=== PATIENT | female | born 1950 | race Caucasian/White ===

== ENCOUNTER 2021-10-02 13:23 | Outpatient (CLI) | payer MEDICARE, SELFPAY | END 2021-10-02 13:24 | disposition home or self-care (01) | PROVIDERS: Visit Provider Surgery | DX: L97.429 Non-pressure chronic ulcer of left heel and midfoot with unspecified severity (principal); M14.60 Charcot's joint, unspecified site; I73.9 Peripheral vascular disease, unspecified; G90.09 Other idiopathic peripheral autonomic neuropathy; Z86.19 Personal history of other infectious and parasitic diseases; Z86.14 Personal history of Methicillin resistant Staphylococcus aureus infection | CPT/HCPCS: 11042; 99204 ==

== ENCOUNTER 2021-10-10 14:17 | Outpatient (CLI) | payer MEDICARE, SELFPAY | END 2021-10-10 14:18 | disposition home or self-care (01) | LOC: WOUND 14:17 | PROVIDERS: Visit Provider Nurse Practitioner Family | DX: G90.09 Other idiopathic peripheral autonomic neuropathy (principal); L97.422 Non-pressure chronic ulcer of left heel and midfoot with fat layer exposed; M14.60 Charcot's joint, unspecified site | CPT/HCPCS: 11042 ==

== ENCOUNTER 2021-10-16 14:24 | Outpatient (CLI) | payer MEDICARE, SELFPAY | END 2021-10-16 14:25 | disposition home or self-care (01) | LOC: WOUND 14:24 | PROVIDERS: Visit Provider Surgery | DX: L97.422 Non-pressure chronic ulcer of left heel and midfoot with fat layer exposed (principal); G90.09 Other idiopathic peripheral autonomic neuropathy; M14.60 Charcot's joint, unspecified site; I73.9 Peripheral vascular disease, unspecified; S61.402A Unspecified open wound of left hand, initial encounter | CPT/HCPCS: 11042 ==

== ENCOUNTER 2021-10-17 15:17 | Outpatient (CLI) | payer MEDICARE, SELFPAY ==
--- NOTE | 2021-10-17 15:45 | CRLHL7_ITS ---
For Patients: As a result of the Century Cures Act, medical imaging exams and procedure reports are released immediately into your electronic medical record. You may view this report before your referring provider. If you have questions, please contact your health care provider. BILATERAL SCREENING MAMMOGRAM WITH COMPUTER-AIDED DETECTION TECHNIQUE: CC and MLO views were obtained. These mammographic images have been obtained using full-field digital technique. These mammographic images were interpreted with the benefit of computer-aided detection. COMPARISON FILM: 06/27/21, 12/23/18, 12/02/17. FINDINGS: The breasts are heterogeneously dense, which may obscure small masses IMPRESSION: There is no radiographic evidence for malignancy. ASSESSMENT: BI-RADS Category 2: Benign RECOMMENDATION: Routine screening mammogram in 1 year. A lay language report of this examination will be provided to the patient. Anirudh Robledo M.D. Diagnostic Radiologist [email or web address] DAVID/Dictated by: Anirudh Robledo MD @ 10/18/2021 8:14:00 AM (Electronically Signed)
== END 2021-10-17 15:18 | disposition home or self-care (01) ==
LOC: MAMMO 15:19
PROVIDERS: Visit Provider Family Medicine
DX: Z12.31 Encounter for screening mammogram for malignant neoplasm of breast (principal); R92.2 Inconclusive mammogram
CPT/HCPCS: 77063; 77067

== ENCOUNTER 2021-10-23 14:26 | Outpatient (CLI) | payer MEDICARE, SELFPAY | END 2021-10-23 14:27 | disposition home or self-care (01) | LOC: WOUND 14:26 | PROVIDERS: Visit Provider Surgery | DX: M14.60 Charcot's joint, unspecified site (principal); L97.422 Non-pressure chronic ulcer of left heel and midfoot with fat layer exposed; G90.09 Other idiopathic peripheral autonomic neuropathy; I73.9 Peripheral vascular disease, unspecified | CPT/HCPCS: 97597 ==

== ENCOUNTER 2021-10-29 14:23 | Outpatient (CLI) | payer MEDICARE, SELFPAY | END 2021-10-29 14:24 | disposition home or self-care (01) | LOC: WOUND 14:23 | PROVIDERS: Visit Provider Nurse Practitioner Family | DX: M14.60 Charcot's joint, unspecified site (principal); L97.422 Non-pressure chronic ulcer of left heel and midfoot with fat layer exposed; G90.09 Other idiopathic peripheral autonomic neuropathy; I73.9 Peripheral vascular disease, unspecified | CPT/HCPCS: 97597 ==

== ENCOUNTER 2021-11-06 10:30 | Outpatient (CLI) | payer MEDICARE, SELFPAY ==
--- OUTSIDE RECORDS SUMMARY | 2022-01-15 15:25 | XMS_ITS | Clinical Summary ---
:1950 Author Organization [facility] [place] [address] Care Team Providers Name Role Phone Idalmis [...] MEDICARE PART A - MEDICARE PART A [id number] 2008-Prese ATTN: CLAIMS HB USE ONLY HB ONLY nt [address] [place] [address] [facility] MR [id number] 2020-Presen [address] [address] [place] [address] Advance Directives Latest Code Status on File Code Status Date Activated Date Inactivated Comments Full Code 07/16/2012 5:52 PM 07/17/2012 6:32 PM Full Code 07/16/2012 10:11 AM 07/16/2012 5:52 PM Care Teams Paste Maker Relationship Specialty Start Date End Date Idalmis Sloan MD PCP - General Family Practice 07/15/12
--- OUTSIDE RECORDS SUMMARY | 2022-01-15 15:26 | XMS_ITS | Encounter Summary ---
:1950 Author Organization [facility] Address [address] [place] [address] Care Team Providers Name Role Phone Unavailable Primary Care Provider Unavailable Encounter Details Date Type Department Care Team Description 09/28/2012 Notes/Orders [facility] [address] Megan Son MD Rash and other Dermatology [address] nonspecific skin [address] eruption (Primary Dx) [place] [phone] Social History Tobacco Use Types Packs/Day Years Used Date Smoking Tobacco: Never Assessed Sex Assigned at Date Recorded Not on file documented as of this encounter Plan of Treatment Not on filedocumented as of this encounter Visit Diagnoses Diagnosis Rash and other nonspecific skin eruption - Primary documented in this encounter
--- OUTSIDE RECORDS SUMMARY | 2022-01-15 15:26 | XMS_ITS | Encounter Summary ---
:1950 [facility] Address [address] [place] [address] Care Team Providers Name Role Phone Unavailable Primary Care Provider Unavailable Reason for Visit Reason Comments Appt. Scheduled Encounter Details Date Type Department Care Team Description 12/14/2012 Telephone [facility] 3800 Megan Son MD Appt. Scheduled Dermatology [address] [place] [address] [place] [address] [phone] Social History Tobacco Use Types Packs/Day Years [...] her husbands schedule first. She will call [phone] to schedule this appt. Megan Son MD [...]
--- OUTSIDE RECORDS SUMMARY | 2022-01-15 15:26 | XMS_ITS | Encounter Summary ---
:1950 Author Organization [place] Address [address] [facility] [place] [address] Care Team Providers Name Role Phone LeviIdalmis stahl Ann Primary Care Provider Madhav Matute MD Unavailable Encounter Details Date Type Department Care Team Description 01/15/2021 Medical Correspondence [facility] Scan, PHYSICAL THERAPY Health Info Mgmt Non-Provider ORDER [facility] [address] [place] [address] Social History Tobacco Use Types Packs/Day Years Used Date Smoking Tobacco: Never Smokeless Tobacco: Never Sex Assigned at Date Recorded Not on file documented as of this encounter Plan of Treatment Not on filedocumented as of this encounter Visit Diagnoses Not on filedocumented in this encounter Care Teams Grease Cup Filler Relationship Specialty Start Date End Date Idalmis Sloan PCP - General Family Practice 11/04/13 Madhav Matute MD Assigned Neuroscience 12/02/20 [id number] MARYANA BEGUM Provider [address] [place] [id number] documented as of this encounter
--- OUTSIDE RECORDS SUMMARY | 2022-01-15 15:26 | XMS_ITS | Encounter Summary ---
:1950 Author [facility] Address [address] [place] [address] Care Team Providers Name Role Phone Unavailable Primary Care Provider Unavailable Reason for Visit Reason Comments Follow-up Encounter Details Date Type Department Care Team Description 10/25/2012 Office Visit [facility] 3800 Megan Son MD Unspecified pruritic Dermatology [address] disorder (Primary Dx) [address] [place] [id number] [phone] Social History Tobacco Use Types Packs/Day Years [...] Has had 2 biopsies ( one at [facility], one elsewhere) , both consistent with organizing [...] 7 days. Take 30 minutes before first [id number]. Avoid lying down for 30 minutes. ??? [...] lunch. -Discussed UVB therapy, available now in [facility] twice a week. Will start this. Warned [...] medical record. Entered on 10/25/2012t 11:42 AM. [place], Megan Son, attest that the above named [...]
--- OUTSIDE RECORDS SUMMARY | 2022-01-15 15:26 | XMS_ITS | Encounter Summary ---
:1950 Author Organization [facility] Address [address] [place] [address] Care Team Providers Name Role Phone Unavailable Primary Care Provider Unavailable Reason for Visit Reason Comments Ulcer, Foot 5th toes b/l ft sores x 1 we ek Encounter Details Date Type Department Care Team Description 12/22/2018 Initial Consult [facility] Jermain Stinson , Charcot's joint of right foot (Primary Dx); MedSurg DPM Blister of fifth toe of right foot, init ial encounter; [address] [place] [address] [place], [place] [phone] [address] Social History Tobacco Use Types Packs/Day Years [...] review indicates that she was admitted at [facility] on November 04, 2018 and discharged [...] List Diagnosis Date Noted ??? Subclinical hyperthyroidism ([facility]) 11/13/2017 ??? Elevated parathyroid hormone ([facility]) 11/13/2017 ??? Hypocalcemia 11/13/2017 No past surgical history on file. Remarkable for right foot reconstruction and graft Social History: Patient is retired [employer] in is here today with her OBJECTIVE: [...] in these are a custom orthotic from [employer] These are an accommodative insert. ASSESSMENT: ICD-10-CM [...] procedure. In review of the notes from [facility] it does indicate Charcot reconstruction so [...] voice recognition software and may contain some top distribution executive errors) documented in this encounter Nursing Notes [...]
--- OUTSIDE RECORDS SUMMARY | 2022-01-15 15:26 | XMS_ITS | Encounter Summary ---
:1950 Author Organization [place] Address [address] [facility] [place] [address] Care Team Providers Name Role Phone LeviIdalmis stahl Ann Primary Care Provider Madhav Matute MD Unavailable Encounter Details Date Type Department Care Team Description 05/14/2021 Medical Correspondence [facility] Scan, PHYSICAL THERAPY Health Info Mgmt Non-Provider ORDER [facility] [address] [place] [address] Social History Tobacco Use Types Packs/Day Years Used Date Smoking Tobacco: Never Smokeless Tobacco: Never Sex Assigned at Date Recorded Not on file documented as of this encounter Plan of Treatment Not on filedocumented as of this encounter Visit Diagnoses Not on filedocumented in this encounter Care Teams Scrap Iron Cutter Relationship Specialty Start Date End Date Idalmis Sloan PCP - General Family Practice 11/04/13 Madhav Matute MD Assigned Neuroscience 12/02/20 [address] MARYANA BEGUM Provider [address] [place] [address] [id number] documented as of this encounter
--- OUTSIDE RECORDS SUMMARY | 2022-01-15 15:26 | XMS_ITS | Encounter Summary ---
:1950 Author Organization [facility] Address [address] [place] [address] Care Team Providers Name Role Phone Unavailable Primary Care Provider Unavailable Reason for Visit Reason Comments Fax LAB RESULTS Encounter Details Date Type Department Care Team Description 12/02/[address] [facility] 3800 Dustin Cagle MD Fax; LAB RESULTS Endocrinology [address] [place] [address] [phone] (Wo rk) Social History Tobacco Use Types Packs/Day Years Used Date Smoking Tobacco: Former Cigarettes 1 Smokeless Tobacco: Never Alcohol Use Standard Drinks/Week Comments Yes 0 (1 standard drink = 0.6 oz pure alcoho l) ocaasionally Sex Assigned at Date Recorded Not on file documented as of this encounter Nursing Notes Sunny Lopez, RN - 12/04/2017 3:[address] [...] be faxed to Dr. Idalmis Sloan at [phone]. documented in this encounter Plan of Treatment Not on filedocumented as of this encounter Visit Diagnoses Not on filedocumented in this encounter
--- OUTSIDE RECORDS SUMMARY | 2022-01-15 15:26 | XMS_ITS | Encounter Summary ---
:1950 [facility] Address [address] [place] [address] Care Team Providers Name Role Phone Unavailable Primary Care Provider Unavailable Reason for Visit Reason Comments Lab Questions Encounter Details Date Type Department Care Team Description 09/24/2012 Telephone [facility] 3800 Megan Son MD Lab Questions Dermatology [address] [facility] [place] [address] [place], [place] [address] [phone] Social History Tobacco Use Types Packs/Day Years [...]
--- OUTSIDE RECORDS SUMMARY | 2022-01-15 15:26 | XMS_ITS | Encounter Summary ---
:1950 Author Organization [place] Address [facility] [place] [address] Care Team Providers Name Role Phone Idalmis Sloan Primary Care Provider Madhav Matute MD Unavailable Encounter Details Date Type Department Care Team Description 01/10/2021 Orders Only [facility] Neurosurgery Reported, Patient Clinic [address] [place] [address] Social History Tobacco Use Types [...] on filedocumented in this encounter Care Teams Orthopedic Physician Assistant Relationship Specialty Start Date End Date Idalmis Sloan PCP - General Family Practice 11/04/13 Madhav Matute MD Assigned Neuroscience 12/02/20 [address] [facility] Provider [address] [place] [address] documented as of this encounter
--- OUTSIDE RECORDS SUMMARY | 2022-01-15 15:26 | XMS_ITS | Encounter Summary ---
:1950 Author Organization [facility] Address [address] [address] Care Team Providers Name Role Phone Unavailable Primary Care Provider Unavailable Encounter Details Date Type Department Care Team Description 11/16/2017 Lab Visit [facility] Elevated parathyroid hormone ; [address] Subclinical hyperthyroidism; [place] [address] Hypocalcemia [phone] Social History Tobacco Use Types Packs/Day Years [...] Transglutaminase Ab IgA (11/16/2017 3:17 PM CDT) [facility] gist Method Time Signature TISSUE 0.4 0.0 - 6.9 PN SOFT TRANSGLUTAMINASE AB IU/L IGA Comment: Reference Range: <7 Negative, 7 - 10 Equivocal, >10 Posit sung Specimen Anatomical Collection Method Collection Time Receive d Time (Source) Location / / Volume Laterality 11/16/2017 3:17 PM 8 8:53 CDT PM CDT Narrative PN SOFT - 11/18/2017 12:30 PM CDT [place] [address] CLIA number [id number] Anirudh Cagle MD LAB_1 Performing Organization Address [facility] Phon e Number PN SOFT [address] [place] [address] Celiac Disease Reflex Panel IgA (11/16/2017 3:17 PM CDT) athologist Signature IGA 198 69 - 517 PN SOFT mg/dL Specimen Anatomical Collection Method Collection Time Receive d Time (Source) Location / / Volume Laterality 11/16/2017 3:17 PM 8 8:54 CDT PM CDT Narrative PN SOFT - 11/16/2017 9:14 PM CDT Performed at [address] [address] CLIA number [id number] Anirudh Cagle MD LAB_1 Performing Organization Address [facility] Phon e Number PN SOFT [address] [place] [address] [phone] Tsh Receptor Antibody (11/16/2017 3:17 PM CDT) athologist Signature TSH Receptor <0.90 <=1.75 IU/L PN SOFT Antibody Comment: Performed by [facility], [address] [place] [address] [email or web address], Papito Palomares MD - Lab . Director Specimen Anatomical Collection Method Collection Time Receive d Time (Source) Location / / Volume Laterality 11/16/2017 3:17 PM 8 8:43 CDT PM CDT Narrative PN SOFT - 11/18/2017 8:02 PM CDT Performed at [facility] [address] [place] [address] CLIA number [id number] Anirudh Cagle MD LAB_1 Performing Organization Address City/[facility] Code Phon e Number PN SOFT [address] [place] [address] T3 - Triiodothyronine, Free (FRT3) (11/16/2017 3:17 PM CDT) athologist Signature Triiodothyronin 3.2 1.7 - 3.7 PN SOFT e, Free pg/mL Specimen Anatomical Collection Method Collection Time Receive d Time (Source) Location / / Volume Laterality 11/16/2017 3:17 PM 8 6:30 CDT PM CDT Narrative PN SOFT - 11/16/2017 7:10 PM CDT Performed at [address] [address] CLIA number [id number] Anirudh Cagle MD LAB_1 Performing Organization Address City/[facility] Phon e Number PN SOFT [address] [place] [address] Free T4 (11/16/2017 3:17 PM CDT) athologist Signature Thyroxine, Free 1.1 0.7 - 1.5 PN SOFT ng/dL Specimen Anatomical Collection Method Collection Time Receive d Time (Source) Location / / Volume Laterality 11/16/2017 3:17 PM 8 6:30 CDT PM CDT Narrative PN SOFT - 11/16/2017 7:10 PM CDT Performed at [address] [address] CLIA number [id number] Anirudh Cagle MD LAB_1 Performing Organization Address [facility] Phon e Number PN SOFT [address] [place] [address] TSH (11/16/2017 3:17 PM CDT) athologist Signature Thyroid 0.38 0.30 - PN SOFT Stimulating 4.50 Hormone uIU/mL Specimen Anatomical Collection Method Collection Time Receive d Time (Source) Location / / Volume Laterality 11/16/2017 3:17 PM 8 6:30 CDT PM CDT Narrative PN SOFT - 11/16/2017 7:10 PM CDT Performed at [address] [address] CLIA number [id number] Anirudh Cagle MD LAB_1 Performing Organization Address [facility] Phon e Number PN SOFT [address] [place] [address] Vitamin D (In house) (11/16/2017 3:17 PM [...] - 11/16/2017 9:29 PM CDT Performed at [address] [address] CLIA number [id number] Anirudh Cagle MD LAB_1 Performing Organization Address [facility] Phon e Number PN SOFT [address] [place] [address] [phone] (ABNORMAL) PTH - Parathyroid Hormone Intact (11/16/2017 3:17 PM CDT) P athologist Signature PTH 159 (H) 10 - 100 PN SOFT pg/mL Specimen Anatomical Collection Method Collection Time Receive d Time (Source) Location / / Volume Laterality 11/16/2017 3:17 PM 8 8:43 CDT PM CDT Narrative PN SOFT - 11/16/2017 9:51 PM CDT Performed at [address] [address] CLIA number [id number] Anirudh Cagle MD LAB_1 Performing Organization Address City/[facility] Phon e Number PN SOFT [address] [place] [address] Phosphorus (11/16/2017 3:17 PM CDT) athologist Signature Phosphorus Serum 3.2 2.3 - 4.7 PN SOFT mg/dL Specimen Anatomical Collection Method Collection Time Receive d Time (Source) Location / / Volume Laterality 11/16/2017 3:17 PM 8 3:16 CDT PM CDT Narrative PN SOFT - 11/16/2017 4:36 PM CDT Performed at [facility], [facility] [address] [place] [address] CLIA number [id number] Anirudh Cagle MD LAB_1 Performing Organization Address City/[facility] Phon e Number PN SOFT [address] [place] [address] (ABNORMAL) CMP - Comprehensive Metabolic Panel (11/16/2017 [...] - 11/16/2017 4:36 PM CDT Performed at [facility], [address] [place] [address] CLIA number [id number] Anirudh Cagle MD LAB_1 Performing Organization Address City/State/ZIP Code Phon e Number PN SOFT [address] [place] [address] documented in this encounter Visit Diagnoses Diagnosis Elevated parathyroid hormone ([facility]) Unspecified endocrine disorder Subclinical hyperthyroidism ([facility]) Thyrotoxicosis without mention of goiter or other cause, without mention of thyrotoxic crisis or storm Hypocalcemia documented in this encounter
--- OUTSIDE RECORDS SUMMARY | 2022-01-15 15:26 | XMS_ITS | Encounter Summary ---
:1950 Author [facility] Address [address] [place] [address] Care Team Providers Name Role Phone Unavailable Primary Care Provider Unavailable Reason for Visit Reason Comments Other Encounter Details Date Type Department Care Team Description 11/20/2017 Telephone [facility] 3800 Dustin Cagle MD Other Endocrinology [address] [place] [address] (Wo rk) Social History Tobacco Use Types [...]
--- OUTSIDE RECORDS SUMMARY | 2022-01-15 15:26 | XMS_ITS | Clinical Summary ---
:1950 Author Organization [place] Address [facility] [place] [address] Care Team Providers Name Role Phone Idalmis [...] be differe nt from the original. 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
--- OUTSIDE RECORDS SUMMARY | 2022-01-15 15:26 | XMS_ITS | Encounter Summary ---
:1950 Author Organization [facility] Address [address] [place] [address] Care Team Providers Name Role Phone Unavailable Primary Care Provider Unavailable Encounter Details Date Type Department Care Team Description 10/12/2012 Notes/Orders [facility] 3800 Megan Son MD Dermatology [address] [place] [address] [place], [place] 4[address] [phone] Social History Tobacco Use Types Packs/Day Years Used Date Smoking Tobacco: Never Assessed Sex Assigned at Date Recorded Not on file documented as of this encounter Plan of Treatment Not on filedocumented as of this encounter Visit Diagnoses Not on filedocumented in this encounter
--- OUTSIDE RECORDS SUMMARY | 2022-01-15 15:26 | XMS_ITS | Encounter Summary ---
:[address] [facility] Address [address] [place] [address] Care Team Providers Name Role Phone Unavailable Primary Care Provider Unavailable Reason for Visit Reason Comments CONSULT Thyroid Encounter Details Date Type Department Care Team Description 11/13/2017 Initial Consult [facility] 3800 Anirudh Cagle clinical hyperthyroidism (Primary Dx); Endocrinology MD Jose Elevated parathyroid hormone; [address] [facility] [address] [place] [address] [phone] Social History Tobacco Use Types Packs/Day Years [...] 12:00 PM CDT NAME: KRYS MOSHER MR#: [id number] CSN: [id number] AUTHENTICATING CLINICIAN: Anirudh Cagle MD CONFIRM #: [id number] LOC: 432 CLINIC CONSULTATION DATE OF CONSULTATION: [...] you for this consultation. CC: DR. ISRAEL SLAON [facility] [address] [place], [place] [address] DMT:JARRETT C: CONFIRM #: [id number] documented in this encounter Plan of Treatment [...] - 11/16/2017 9:14 PM CDT Performed at [address] [address] CLIA number [id number] Anirudh Cagle MD LAB_1 Performing Organization Address [facility] Code Phon e Number PN SOFT [address] [place] [address] [phone] Tsh Receptor Antibody (11/16/2017 3:17 PM CDT) athologist [facility] TSH Receptor <0.90 <=1.75 IU/L PN SOFT Antibody Comment: Performed by [facility], [address] [place] [address] www.[email or web address], Papito Palomares MD - Lab . Director Specimen Anatomical Collection Method Collection Time Receive d Time (Source) Location / / Volume Laterality 11/16/2017 3:17 PM 8 8:43 CDT PM CDT Narrative PN SOFT - 11/18/2017 8:02 PM CDT Performed at [facility] [address] [place] [address] CLIA number [id number] Anirudh Cagle MD LAB_1 Performing Organization Address [facility] Phon e Number PN SOFT [address] [place] [address] T3 - Triiodothyronine, Free (FRT3) (11/16/2017 3:17 PM CDT) athologist Signature Triiodothyronin 3.2 1.7 - 3.7 PN SOFT e, Free pg/mL Specimen Anatomical Collection Method Collection Time Receive d Time (Source) Location / / Volume Laterality 11/16/2017 3:17 PM 8 6:30 CDT PM CDT Narrative PN SOFT - 11/16/2017 7:10 PM CDT Performed at [place] [address] [place] [address] CLIA number [id number] Anirudh Cagle MD LAB_1 Performing Organization Address [facility] Phon e Number PN SOFT [address] [place] [address] Free T4 (11/16/2017 3:17 PM CDT) athologist Signature Thyroxine, Free 1.1 0.7 - 1.5 PN SOFT ng/dL Specimen Anatomical Collection Method Collection Time Receive d Time (Source) Location / / Volume Laterality 11/16/2017 3:17 PM 8 6:30 CDT PM CDT Narrative PN SOFT - 11/16/2017 7:10 PM CDT Performed at [place] [address] [place] [address] CLIA number [id number] Anirudh Cagle MD LAB_1 Performing Organization Address [facility] Phon e Number PN SOFT [address] [place] [address] TSH (11/16/2017 3:17 PM CDT) athologist Signature Thyroid 0.38 0.30 - PN SOFT Stimulating 4.50 Hormone uIU/mL Specimen Anatomical Collection Method Collection Time Receive d Time (Source) Location / / Volume Laterality 11/16/2017 3:17 PM 8 6:30 CDT PM CDT Narrative PN SOFT - 11/16/2017 7:10 PM CDT Performed at [place] [address] [place] [address] CLIA number [id number] Anirudh Cagle MD LAB_1 Performing Organization Address City/[facility] Phon e Number PN SOFT [address] [place] [address] Vitamin D (In house) (11/16/2017 3:17 PM [...] - 11/16/2017 9:29 PM CDT Performed at [address] [address] CLIA number [id number] Anirudh Cagle MD LAB_1 Performing Organization Address [facility] Phon e Number PN SOFT [address] [place] [address] (ABNORMAL) PTH - Parathyroid Hormone Intact (11/16/2017 3:17 PM CDT) athologist Signature PTH 159 (H) 10 - 100 PN SOFT pg/mL Specimen Anatomical Collection Method Collection Time Receive d Time (Source) Location / / Volume Laterality 11/16/2017 3:17 PM 8 8:43 CDT PM CDT Narrative PN SOFT - 11/16/2017 9:51 PM CDT Performed at [address] [address] CLIA number [id number] Anirudh Cagle MD LAB_1 Performing Organization Address City/[facility] Phon e Number PN SOFT [address] [place] [address] Phosphorus (11/16/2017 3:17 PM CDT) athologist Signature Phosphorus Serum 3.2 2.3 - 4.7 PN SOFT mg/dL Specimen Anatomical Collection Method Collection Time Receive d Time (Source) Location / / Volume Laterality 11/16/2017 3:17 PM 8 3:16 CDT PM CDT Narrative PN SOFT - 11/16/2017 4:36 PM CDT Performed at [facility], [address] [facility], [place] [address] CLIA number [id number] Anirudh Cagle MD LAB_1 Performing Organization Address City/State/ZIP Code Phon e Number PN SOFT [address] [place] [address] [phone] (ABNORMAL) CMP - Comprehensive Metabolic Panel (11/16/2017 3:17 PM CDT) [facility] Method Time Signature Aspartate 48 (H) 10 [...] 11/16/2017 4:36 PM CDT Performed at [facility], [address] [facility], [place] [address] CLIA number [id number] Anirudh Cagle MD LAB_1 Performing Organization Address City/State/ZIP Code Phon e Number [facility] [address] [place] [address] [phone] documented in this encounter Visit Diagnoses Diagnosis [...]
--- OUTSIDE RECORDS SUMMARY | 2022-01-15 15:26 | XMS_ITS | Encounter Summary ---
:1950 Author Organization [facility] Address [address] [place] [address] Care Team Providers Name Role Phone Unavailable Primary Care Provider Unavailable Reason for Visit Reason Comments Appt. Needed Referral rec via fax for Hyp erthyroidism from Dr. Idalmis Sloan at [facility] Emergency Department Encounter Details Date Type Department Care Team Description 2017 Notes/Orders [facility] 3800 Nurse, P3800 End Endocrinology [address] [place] [address] [phone] Social History Tobacco Use Types Packs/Day Years [...]
--- OUTSIDE RECORDS SUMMARY | 2022-01-15 15:26 | XMS_ITS | Encounter Summary ---
:1950 Author Organization [facility] Address [address] [place] [address] Care Team Providers Name Role Phone Unavailable Primary Care Provider Unavailable Encounter Details Date Type Department Care Team Description 10/25/2012 Lab Visit [facility] 3850 Rash and other nonspecific skin eruption; Laboratory Unspecified pruritic disorde r [address] [place], [place] [address] Social History Tobacco Use Types Packs/Day Years [...] and let her know lymphocytes are ok CASTER Miscellaneous - 04/11/2016 4:09 AM CSTNotes Recorded by Hira Link RN on 10/25/2012 at 5:13 PMPt notified.------Notes Recorded by Megan Son MD on 10/25/2012 at 3:42 PMPlease call and let her know lymphocytes are ok CASTER documented in this encounter Plan of Treatment [...] - 10/25/2012 12:26 PM CDT Performed at [facility], [address] [place] [address] Transcriptions 04/11/2016 4:09 AM CSTNotes Recorded by [...] - 10/25/2012 12:26 PM CDT Performed at [facility] [place] [address] Transcriptions 04/11/2016 4:09 AM CSTNotes Recorded by [...]
--- OUTSIDE RECORDS SUMMARY | 2022-01-15 15:26 | XMS_ITS | Encounter Summary ---
:[address] [facility] [facility] Address [address] [place] [address] Care Team Providers Name Role Phone Unavailable Primary Care Provider Unavailable Reason for Visit Reason Comments Cough Encounter Details Date Type Department Care Team Description 03/03/2013 [facility] Tammie Mohan, Acute bronchitis Medicine DAYTIME CAREGIVER, DWARF TREE GROWER (Primary Dx) [address] [place] [address] [place], [place] [phone] [address] Social History Tobacco Use Types Packs/Day Years Used Date Smoking Tobacco: Never Assessed Sex Assigned at Date Recorded Not on file documented as of this encounter Last Filed Vital Signs Vital Sign Reading Time Taken Comments Blood Pressure 124/68 03/03/2013 10:55 AM WOUND CARE CENTER CONSULTANT Pulse 84 03/03/2013 10:55 AM WOUND CARE CENTER CONSULTANT Temperature 36.5 ??C (97.7 ??F) 03/03/2013 10:55 AM WOUND CARE CENTER CONSULTANT Respiratory Rate - - Oxygen Saturation - - Inhaled Oxygen Concentration - - Weight - - Height - - Body Mass Index - - documented in this encounter Patient Instructions Patient InstructionsMoTammie cullen - 03/03/2013 11:13 AM CST Delsym for cough Mucinex D for sinus congestion. Ask the Pharmacist for this D CARE CENTER CONSULTANT documented in this encounter Progress Notes Tammie [...] 7 days. Take 30 minutes before first [id number]. Avoid lying down for 30 minutes. ??? [...] discharged ambulatory and in stable condition. *SH~DNS~SOAP1 D CARE CENTER CONSULTANT documented in this encounter Plan of Treatment Not on filedocumented as of this encounter Visit Diagnoses Diagnosis Acute bronchitis - Primary documented in this encounter
--- OUTSIDE RECORDS SUMMARY | 2022-01-15 15:26 | XMS_ITS | Encounter Summary ---
:1950 Author Organization [facility] Address [address] [place] [address] Care Team Providers Name Role Phone Unavailable Primary Care Provider Unavailable Encounter Details Date Type Department Care Team Description 09/22/2012 Lab Visit [facility] [address] aboratory Rash/skin eruption [address] [place], [place] [id number] Social History Tobacco Use Types Packs/Day Years [...] am out of the office next week. EL LUBE TECH Miscellaneous - 04/11/2016 5:07 AM CSTNotes Recorded [...] am out of the office next week. EL [facility]BE TECH [facility] - 04/11/2016 5:07 AM CSTNotes Recorded by [...] am out of the office next week. EL LUBE TECH Miscellaneous - 04/11/2016 5:07 AM CSTNotes Recorded [...] am out of the office next week. EL LUBE TECH M[facility]ellcarol - 04/11/2016 5:07 AM CSTNotes Recorded [...] am out of the office next week. EL LUBE TECH Miscellaneous - 04/11/2016 5:07 AM CSTNotes Recorded [...] am out of the office next week. EL LUBE TECH Miscellaneous - 04/11/2016 5:07 AM CSTNotes Recorded [...] am out of the office next week. EL LUBE TECH documented in this encounter Plan of Treatment [...] Results (ABNORMAL) Differential (09/22/2012 10:50 AM CDT) [facility] Method Time Signature Absolute 3.6 [...] - 09/22/2012 11:00 AM CDT Performed at [facility], [address] [place] [address] Transcriptions 04/11/2016 5:07 AM CSTNotes Recorded by [...] Megan Mcqueen MD LAB_1 Performing Organization Address City/[facility] Phon e Number HP CONVERSION TSH AND [...] Megan Mcqueen MD LAB_1 Performing Organization Address City/[facility] Phon e Number HP CONVERSION C-Reactive Protein [...] Megan Mcqueen MD LAB_1 Performing Organization Address City/[facility] Code Phon e Number HP CONVERSION LENA [...] Megan Mcqueen MD LAB_1 Performing Organization Address City/[facility] Phon e Number HP CONVERSION Creatinine / [...] - 09/22/2012 11:23 AM CDT Performed at [facility], [address] [place] [address] Transcriptions 04/11/2016 5:07 AM CSTNotes Recorded by [...] Panel(Hepatic Function Panel) (09/22/2012 10:50 AM CDT) [facility] Method Time Signature Alk Phos 94 [...] - 09/22/2012 11:23 AM CDT Performed at [facility], [facility] [place] [address] Transcriptions 04/11/2016 5:07 AM CSTNotes Recorded by [...] - 09/22/2012 11:00 AM CDT Performed at [facility], [address] [place] [address] Transcriptions 04/11/2016 5:07 AM CSTNotes Recorded by [...]
--- OUTSIDE RECORDS SUMMARY | 2022-01-15 15:26 | XMS_ITS | Encounter Summary ---
:1950 Author Organization [facility] Address [address], [place] [address] Care Team Providers Name Role Phone Unavailable Primary Care Provider Unavailable Reason for Visit Reason Comments Rash Encounter Details Date Type Department Care Team Description 09/14/2012 Office Visit [facility] Alok Wright/[place] in [facility] Medicine Cheri Qureshi (Primary Dx) [address] [place] [address] [place], [place] [phone] (Wo rk) Social History Tobacco Use Types [...] times recently including a visit to the technical buyer and was given topical steroid creams without [...] 7 days. Take 30 minutes before first merq-imqpt-sffhlfqset. Avoid lying down for 30 minutes. ??? [...]
--- OUTSIDE RECORDS SUMMARY | 2022-01-15 15:26 | XMS_ITS | Encounter Summary ---
:1950 Author Organization [facility] Address [address] [place] [address] Care Team Providers Name Role Phone Unavailable Primary Care Provider Unavailable Reason for Visit Reason Comments DERMATITIS Encounter Details Date Type Department Care Team Description 12/02/2012 Procedure Visit [facility] Nurse, Bravo Chao DERMATITIS [address] [place] [address] Social History Tobacco Use Types [...]
--- OUTSIDE RECORDS SUMMARY | 2022-01-15 15:26 | XMS_ITS | Clinical Summary ---
:1950 Author Organization [facility] Address [address] [place] [address] Care Team Providers Name Role Phone Unavailable [...] for each transition of care or referral. [facility] Allergies Active Allergy Reactions Severity Noted Date [...] daily at tabletIndications: bedtime. alternate between Indications: 12-1 tab daily alternate between 03/03-1 tab daily ALBUterol sulfate HFA Inhale 2 [...] 36.5 ??C (97.7 ??F) 03/03/2013 10:[address] JUDGE Respiratory Rate - - Oxygen Saturation - [...] Phone Address Typ e / Group Dates [facility] MEDICARE [id number] 2018-Pre [phone] [address] Medicare ADVANTAGE sent [phone] [place] [address]
--- OUTSIDE RECORDS SUMMARY | 2022-01-15 15:26 | XMS_ITS | Encounter Summary ---
:1950 Author Organization [facility] Address [address] [place] [address] Care Team Providers Name Role Phone Unavailable Primary Care Provider Unavailable Reason for Visit Reason Comments ECZEMA Encounter Details Date Type Department Care Team Description 11/04/2012 Procedure Visit [facility] Nurse, Bravo Chao ECZEMA [address] [place] [address] Social History Tobacco Use Types [...]
--- OUTSIDE RECORDS SUMMARY | 2022-01-15 15:26 | XMS_ITS | Encounter Summary ---
:1950 Author Organization [facility] Address [address] [place] [address] Care Team Providers Name Role Phone Unavailable Primary Care Provider Unavailable Reason for Visit Reason Comments ECZEMA Encounter Details Date Type Department Care Team Description 11/30/2012 Procedure Visit [place] [facility] Nurse, Bravo Chao ECZEMA [address] [place] [address] Social History Tobacco Use Types [...]
--- OUTSIDE RECORDS SUMMARY | 2022-01-15 15:26 | XMS_ITS | Encounter Summary ---
:1950 Author Organization [facility] Address [address] [place] [address] Care Team Providers Name Role Phone Unavailable Primary Care Provider Unavailable Reason for Referral Specialty Diagnoses / Procedures Referred By Contact Refer red To Contact Masood Wright, [facility] [address] [place] [address] Referral ID Status Reason Start Date Expiration Date Visits Requ ested Visits Authorized Reason for Visit Reason Comments Rash Encounter Details Date Type Department Care Team Description 09/22/2012 Initial Consult [facility] 3800 Megan Son MD Rash/skin eruption (Primary Dx); Dermatology [address] Rash and other nonspecific s kin eruption [address] [place] [id number] Social History Tobacco Use Types Packs/Day Years [...] whole body going on for4-5 weeks. [facility]en [facility] twice for this condition. Red bumps with itching. Tried Bactroban cream, OTCallergy medication, hydrocortisone, hydroxizine. The Bactroban seemed to help little but rash continues to spread. Was in patient hospital for back surgery and rash has been present since and does not believe she has had any new medications prior to the rash. Had biopsy at [facility] which she thought the results [...] 7 days. Take 30 minutes before first vucj-azsbd-vsvadkmlcs. Avoid lying down for 30 minutes. ??? [...] drawnalso discussed getting labs and slides from [facility] vs doing another biopsy today. Patientelected to have biopsy done today. release of information sent to [facility] today. After disc ussion, a punch biopsy [...] as recommended. Kelly Ashby RN at 09/29/12 1604 Status: Signed Calling for biopsy results---please advise in 's absence (rc 8-5) She may be reached @[phone]. Thank you. N RESOURCES SUPERVISOR documented in this encounter Plan of [...] Component Value Ref Test Analysis Performed At [facility] gist Range Method Time Signature Path: ? FINAL DERMATOPATHOLOGY REPO RT HP CONVERSION Pathology #: [id number] ? Date Obtained: 09/22/2012 ?Date Received: 09/22/2012 [...] AMCalled, left message.------ Notes Recorded by Cherelle Post, RN on 10/04/2012 at 5:00 PMreturning your call at 4:42 pm today------Notes Recorded by Cherelle Post, RN on 10/04/2012 at 2:28 PMpatient lm [...] absence (rc 8-5) She may be reached @[phone]. Thank you. Megan Son MD LAB_1 Performing Organization Address City/State/ZIP Code Phon e Number HP CONVERSION documented in this encounter Visit Diagnoses Diagnosis Rash/skin eruption - Primary Rash and other nonspecific skin eruption Rash and other nonspecific skin eruption documented in this encounter
--- OUTSIDE RECORDS SUMMARY | 2022-01-15 15:26 | XMS_ITS | Encounter Summary ---
:1950 Author Organization [facility] Address [address], [place] [address] Care Team Providers Name Role Phone Unavailable Primary Care Provider Unavailable Reason for Visit Reason Comments Rash Encounter Details Date Type Department Care Team Description 09/20/2012 Telephone [place] [facility] Titus Whitten Rash [address] [facility] [place], [place] [address] [address] [place] [address] [phone] [place], [place] [address] (Wo rk) Social History Tobacco Use Types Packs/Day Years Used Date Smoking Tobacco: Never Assessed Sex Assigned at Date Recorded Not on file documented as of this encounter Nursing Notes Denise Mon - 09/21/2012 9:20 AM CDT LM to call [phone] to schedule an appointment. Denise Mon 9:18 [...]
--- OUTSIDE RECORDS SUMMARY | 2022-01-15 15:26 | XMS_ITS | Encounter Summary ---
:1950 [facility] Address [address] [place] [address] Care Team Providers Name Role Phone Unavailable Primary Care Provider Unavailable Reason for Visit Reason Comments RESULTS, TEST Encounter Details Date Type Department Care Team Description 09/29/2012 Telephone [facility] D[facility]at[facility] Carlos Jones MD RESULTS, TEST [address] [facility] [address] [place] [address] [place] [address] (Wo rk) Social History Tobacco [...] absence (rc 8-5) She may be reached @[phone]. Thank you. documented in this encounter Plan of Treatment Not on filedocumented as of this encounter Visit Diagnoses Not on filedocumented in this encounter
--- OUTSIDE RECORDS SUMMARY | 2022-01-15 15:26 | XMS_ITS | Encounter Summary ---
:1950 Author Organization [facility] Address [address] [place] [address] Care Team Providers Name Role Phone Unavailable Primary Care Provider Unavailable Reason for Visit Reason Comments ECZEMA Encounter Details Date Type Department Care Team Description 11/02/2012 Procedure Visit [facility] Nurse, Bravo Chao ECZEMA [address] [place] [address] Social History Tobacco Use Types [...]
--- OUTSIDE RECORDS SUMMARY | 2022-01-15 15:26 | XMS_ITS | Encounter Summary ---
:1950 Author Organization [facility] Address [address] [place] [address] Care Team Providers Name Role Phone Unavailable Primary Care Provider Unavailable Reason for Visit Reason Comments Rash SWELLING, LEG Encounter Details Date Type Department Care Team Description 11/27/2012 Nurse Triage [facility] 380 Found, No Pcp , Rash; SWELLING, LEG Dermatology [address] [facility] [address] [place], [place] [address] [address] [place] [address] Social History Tobacco Use Types Packs/Day Years Used Date Smoking Tobacco: Never Assessed Sex Assigned at Date Recorded Not on file documented as of this encounter Nursing Notes Vicki Andrew - 11/27/2012 2:28 PM CDT Protocol: LEG SWELLING AND [id number] Affirmative: [1] Thigh, calf, or ankle swelling [...]
--- OUTSIDE RECORDS SUMMARY | 2022-01-15 15:26 | XMS_ITS | Encounter Summary ---
:1950 Author Organization [facility] Address [address] [place] [address] Care Team Providers Name Role Phone Unavailable Primary Care Provider Unavailable Reason for Visit Reason Comments DERMATITIS Encounter Details Date Type Department Care Team Description 11/11/2012 Procedure Visit [facility] Nurse, Bravo Chao DERMATITIS [address] [place] [address] Social History Tobacco Use Types [...]
--- OUTSIDE RECORDS SUMMARY | 2022-01-15 15:26 | XMS_ITS | Encounter Summary ---
:1950 Author Organization [facility] Address [address] [place] [address] Care Team Providers Name Role Phone Unavailable Primary Care Provider Unavailable Reason for Visit Reason Comments UPDATE Encounter Details Date Type Department Care Team Description 12/07/2017 Telephone [facility] 38[address] Dustin Cagle MD UPDATE Endocrinology [address] [place] [phone] (Wo rk) Social History Tobacco Use Types [...]
--- OUTSIDE RECORDS SUMMARY | 2022-01-15 15:27 | XMS_ITS | Encounter Summary ---
:1950 Author Organization [place] Address [facility] [place] [address] Care Team Providers Name Role Phone Idalmis Sloan Primary Care Provider Encounter Details Date Type Department Care Team Description 02/16/2019 Therapy Visit [facility] Jensen Hernandez, PT Lumbar pain Rehabilitation Services [address] [facility] [address] [place] [address] [place] [address] Social History Tobacco Use Types Packs/Day Years Used Date Smoking Tobacco: Never Smokeless Tobacco: Never Sex Assigned at Date Recorded Not on file documented as of this encounter Progress Notes Jensen Hernandez, PT - 02/16/2019 3:20 PM CST [facility] Initial Evaluation Subjective: History of lumbar pain for years which has included 3 previous surgeries to her lower back. Pt can'trecall the dates of her surgeries. Pt noted pain of unknown etiology approximately 6 -8 weeks ago. Pt referred by MD for physical therapy on 12-29-18 The history is provided by the patient. No official court interpreter was used. Type of problem: Lumbar Condition [...] Left: Moderate loss Right: Moderate loss Side Supply: Left: Right: Strength: weak lower abdominals and [...] and time spent performing 1:1 timed codes. S BUCKER documented in this encounter Plan of Treatment Not on filedocumented as of this encounter Procedures Procedure Name Priority Date/Time Associated Diagnosis Comme [facility] ZZ THERAPEUTIC Routine 02/16/2019 6:42 PM PRESS BUCKER Lumbar pain EXERCISES documented in this encounter Visit Diagnoses Diagnosis Lumbar pain Lumbago documented in this encounter Care Teams Packaging Manager Relationship Specialty Start Date End Date Idalmis Sloan PCP - General Family Practice 11/04/13 documented as of this encounter
--- OUTSIDE RECORDS SUMMARY | 2022-01-15 15:27 | XMS_ITS | Encounter Summary ---
:1950 Author Organization [place] Address [facility] [place] [address] Care Team Providers Name Role Phone Idalmis Sloan Primary Care Provider Encounter Details Date Type Department Care Team Description 04/14/2019 Therapy Visit [facility] Belén Alva, Lumbar pain (Primary Rehabilitation Services TOWEL HEMMER Dx) [facility] [address] [facility] [address] [place], [place] [address] Social History Tobacco Use Types Packs/Day Years [...] might increase back pain. Functionally has improved. GER CLINICAL INFORMATICS Adiel Ramirez 04/14/2019 2:30 PM CST Assessment/Plan: [...] time spent performing 1:1 timed codes. GER CLINICAL INFORMATICS documented in this encounter Miscellaneous Notes Addendum Note - Adiel Ramirez - 04/14/2019 2:30 PM MANAGER CLINICAL INFORMATICS Addended by: ADIEL RAMIREZ on: 04/15/2019 11:09 AM Modules accepted: Orders GER CLINICAL INFORMATICS documented in this encounter Plan of Treatment Not on filedocumented as of this encounter Procedures Procedure Name Priority Date/Time Associated Diagnosis Comme [facility] Z THERAPEUTIC Routine 04/15/2019 10:52 AM Lumbar pain ACTIVITIES MANAGER CLINICAL INFORMATICS documented in this encounter Visit Diagnoses Diagnosis Lumbar pain - Primary Lumbago documented in this encounter Care Teams Integrity Analyst Relationship Specialty Start Date End Date Idalmis Sloan PCP - General Family Practice 11/04/13 documented as of this encounter
--- OUTSIDE RECORDS SUMMARY | 2022-01-15 15:27 | XMS_ITS | Encounter Summary ---
:1950 Author Organization [place] Address [facility] [place] [facility] [place] [address] Care Team Providers Name Role Phone Idalmis [...] on filedocumented in this encounter Care Teams Learning Coach Relationship Specialty Start Date End Date Idalmis Sloan PCP - General Family Practice 11/04/13 Ana Jacobs PA-C Assigned Neuroscience 11/04/20 12/01/20 [facility] Provider [address] [id number] documented as of this encounter
--- OUTSIDE RECORDS SUMMARY | 2022-01-15 15:27 | XMS_ITS | Encounter Summary ---
:1950 Author Organization [place] Address [address] [place] [address]. [place] [address] Care Team Providers Name Role Phone Idalmis Sloan Primary Care Provider Reason for Visit Diagnostic Imaging XR (Routine) - Closed Specialty Diagnoses / Procedures Referred By Contact Refer red To Contact Diagnoses Acute bilateral low back pain with left-sided sciatica Ana Jacobs PA-C Procedures XR Spine Complete Scoliosis 2 Views [facility] [address] [facility] [address] [place] [place] [address] Referral ID Status Reason Start Date Expiration Date Visits Requ ested Visits Authorized [id number] Closed 10/29/2020 10/29/2021 1 1 Encounter Details Date Type Department Care Team Description 10/29/2020 Ancillary Procedure [facility] Ana Jacobs Acu te bilateral low Sports and VIELKA Alcaraz back pain with Orthopedic Care [facility] left-side d sciatica [facility] [address] [facility] [address] [facility] [address] [place] [address] [address] [id number] Social History Tobacco Use Types Packs/Day Years [...] sciatica documented in this encounter Care Teams Food Safety Director Relationship Specialty Start Date End Date Idalmis Sloan PCP - General Family Practice 11/04/13 documented as of this encounter
--- OUTSIDE RECORDS SUMMARY | 2022-01-15 15:27 | XMS_ITS | Encounter Summary ---
:1950 Author Organization [place] Address [address] [place] [address] Care Team Providers Name Role Phone Idalmis Sloan Primary Care Provider Encounter Details Date Type Department Care Team Description 02/21[facility]2019 [facility] (Primary Rehabilitation Services [address] Dx) [address] [address] [address] [place] [address] (Work) [phone] Social History Tobacco Use Types Packs/Day Years Used Date Smoking Tobacco: Never Smokeless Tobacco: Never Sex Assigned at Date Recorded Not on file documented as of this encounter Plan of Treatment Not on filedocumented as of this encounter Procedures Procedure Name Priority Date/Time Associated Diagnosis Comme nts [facility] THERAPEUTIC Routine 02/21/2019 6:20 PM GRANULATING BLENDER Lumbar pain ACTIVITIES [facility] THERAPEUTIC Routine 02/21/2019 6:20 PM GRANULATING BLENDER Lumbar pain EXERCISES documented in this encounter Visit Diagnoses Diagnosis Lumbar pain - Primary Lumbago documented in this encounter Care Teams Buffer Machine Relationship Specialty Start Date End Date Idalmis Sloan PCP - General Family Practice 11/04/13 documented as of this encounter
--- OUTSIDE RECORDS SUMMARY | 2022-01-15 15:27 | XMS_ITS | Encounter Summary ---
:1950 Author Organization [facility] Address [address] [place] [address] Care Team Providers Name Role Phone Idalmis [...] on filedocumented in this encounter Care Teams Professor Of Education Relationship Specialty Start Date End Date Idalmis Sloan PCP - General Family Practice 11/04/13 documented as of this encounter
--- OUTSIDE RECORDS SUMMARY | 2022-01-15 15:27 | XMS_ITS | Encounter Summary ---
:1950 Author Organization [facility] Address [address] [place] [address] Care Team Providers Name Role Phone Idalmis [...] on filedocumented in this encounter Care Teams Pharmacy Manager Relationship Specialty Start Date End Date Idalmis Sloan PCP - General Family Practice 11/04/13 documented as of this encounter
--- OUTSIDE RECORDS SUMMARY | 2022-01-15 15:27 | XMS_ITS | Encounter Summary ---
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 [address] [facility] [address] [place] [address] Social History Tobacco Use Types Packs/Day Years Used Date Smoking Tobacco: Never Smokeless Tobacco: Never Sex Assigned at Date Recorded Not on file documented as of this encounter Plan of Treatment Not on filedocumented as of this encounter Procedures Procedure Name Priority Date/Time Associated Diagnosis Comme nts Z THERAPEUTIC Routine 03/16/2019 4:32 PM PAY STATION DEPARTMENT MANAGER Lumbar pain ACTIVITIES Z THERAPEUTIC Routine 03/16/2019 4:32 PM PAY STATION DEPARTMENT MANAGER Lumbar pain EXERCISES documented in this encounter Visit Diagnoses Diagnosis Lumbar pain - Primary Lumbago documented in this encounter Care Teams Stereoptician Relationship Specialty Start Date End Date Idalmis Sloan PCP - General Family Practice 11/04/13 documented as of this encounter
--- OUTSIDE RECORDS SUMMARY | 2022-01-15 15:27 | XMS_ITS | Encounter Summary ---
:1950 Author Organization [facility] Address [address] [place] [address] Care Team Providers Name Role Phone Idalmis Sloan Primary Care Provider Encounter Details Date Type Department Care Team Description 03/30/[address] [facility] Belén Alva, Lumbar pain (Primary Rehabilitation Services INFANTRY OPERATIONS SPECIALIST Dx) [facility] [address] [facility] [address] [place] [address] Social History Tobacco Use Types Packs/Day Years Used Date Smoking Tobacco: Never Smokeless Tobacco: Never Sex Assigned at Date Recorded Not on file documented as of this encounter Plan of Treatment Not on filedocumented as of this encounter Procedures Procedure Name Priority Date/Time Associated Diagnosis Comme nts ZZC THERAPEUTIC Routine 03/30/2019 3:56 PM BUSINESS ADMINISTRATION PROGRAM CHAIR Lumbar pain ACTIVITIES ZZ THERAPEUTIC Routine 03/30/2019 3:56 PM BUSINESS ADMINISTRATION PROGRAM CHAIR Lumbar pain EXERCISES documented in this encounter Visit Diagnoses Diagnosis Lumbar pain - Primary Lumbago documented in this encounter Care Teams Tank Truck Milk Receiver Relationship Specialty Start Date End Date Idalmis Sloan PCP - General Family Practice 11/04/13 documented as of this encounter
--- OUTSIDE RECORDS SUMMARY | 2022-01-15 15:27 | XMS_ITS | Encounter Summary ---
:1950 Author Organization [place] Address [address] [place] [address] Care Team Providers Name Role Phone Idalmis [...] on filedocumented in this encounter Care Teams Leasing Assistant Relationship Specialty Start Date End Date Idalmis Sloan PCP - General Family Practice 11/04/13 documented as of this encounter
--- OUTSIDE RECORDS SUMMARY | 2022-01-15 15:27 | XMS_ITS | Encounter Summary ---
:1950 Author Organization [place] Address [address] [place] [address] Care Team Providers Name Role Phone Idalmis Sloan Primary Care Provider Encounter Details Date Type Department Care Team Description 03/23/2019 Therapy Visit [facility] [place], Lumbar pain (Primary Rehabilitation Services TOLL GATE TENDER Dx) [facility] [address] [facility] [address] [place] [address] Social History Tobacco Use Types Packs/Day Years Used Date Smoking Tobacco: Never Smokeless Tobacco: Never Sex Assigned at Date Recorded Not on file documented as of this encounter Plan of Treatment Not on filedocumented as of this encounter Procedures Procedure Name Priority Date/Time Associated Diagnosis Comme nts Z THERAPEUTIC Routine 03/23/2019 3:35 PM CASTING TRUCKER Lumbar pain ACTIVITIES ZZ THERAPEUTIC Routine 03/23/2019 3:35 PM CASTING TRUCKER Lumbar pain EXERCISES documented in this encounter Visit Diagnoses Diagnosis Lumbar pain - Primary Lumbago documented in this encounter Care Teams Collection Technician Relationship Specialty Start Date End Date Idalmis Sloan PCP - General Family Practice 11/04/13 documented as of this encounter
--- OUTSIDE RECORDS SUMMARY | 2022-01-15 15:27 | XMS_ITS | Encounter Summary ---
:1950 Author Organization [place] Address [address] [place] [address] Care Team Providers Name Role Phone Idalmis Sloan Primary Care Provider Ana Jacobs PA-C Unavailable Reason for Referral Diagnostic Imaging CT Scan (Routine) - Closed Specialty Diagnoses / Procedures Referred By Contact Refer red To Contact Diagnoses Acute bilateral low back pain with left-sided sciatica Ana Jacobs PA-C Procedures CT Lumbar Spine w/o Contrast [facility] [address] [place] [address] Referral ID Status Reason Start Date Expiration Date Visits Requ ested Visits Authorized [id number] Closed 10/29/2020 10/29/2021 1 1 Reason for Visit Diagnostic Imaging CT Scan (Routine) - Closed Specialty Diagnoses / Procedures Referred By Contact Refer red To Contact Diagnoses Acute bilateral low back pain with left-sided sciatica Ana Jacobs PA-C Procedures CT Lumbar Spine w/o Contrast [facility] [place] [address] Referral ID Status Reason Start Date Expiration Date Visits Requ ested Visits Authorized [id number] Closed 10/29/2020 10/29/2021 1 1 Encounter Details Date Type Department Care Team Description 11/08/2020 [facility] VIELKA Alcaraz back pain with [address] [facility] left-sided sciatica [facility] [address] [address] [phone] [address] [address] Social History Tobacco Use Types Packs/Day Years [...] MR 06/22/2020. TORRES RIVAS MD SYSTEM ID: ??[id number] Narrative 11/09/2020 9:[address] LUMBAR [...] MR 06/22/2020. TORRES RIVAS MD SYSTEM ID: [id number] Ana Jacobs PA-C IMG CT ORDERABLES documented in this encounter Visit Diagnoses Diagnosis Acute bilateral low back pain with left- sided sciatica documented in this encounter Care Teams Optical Lens Manufacturing Tech Relationship Specialty Start Date End Date Idalmis Sloan PCP - General Family Practice 11/04/13 Ana Jacobs PA-C Assigned Neuroscience 11/04/20 12/01/20 [facility] Provider [address] [address] documented as of this encounter
--- OUTSIDE RECORDS SUMMARY | 2022-01-15 15:27 | XMS_ITS | Encounter Summary ---
:1950 Author Organization [place] Address [address] [place] [address]. [place] [address] Care Team Providers Name Role Phone Idalmis Sloan Primary Care Provider Reason for Visit Diagnostic Imaging XR (Routine) - Closed Specialty Diagnoses / Procedures Referred By Contact Refer red To Contact Diagnoses Acute bilateral low back pain with left-sided sciatica Ana Jacobs PA-C Procedures XR Lumbar Bending Only 2/3 Views [facility] [address] [facility] [address] [place] [address] Referral ID Status Reason Start Date Expiration Date Visits Requ ested Visits Authorized [id number] Closed 10/29/2020 10/29/2021 1 1 Encounter Details Date Type Department Care Team Description 10/29/2020 Ancillary Procedure [facility] Ana Jacobs Acu te bilateral low [facility] Kieran PASamiC back pain with [facility] left-side d sciatica [facility] [address] [place] [address] [facility] [address] [address] [place] [address] [address] [place] [address] Social History Tobacco Use Types Packs/Day Years [...] extension. JULIO CÉSAR HUITRON MD SYSTEM ID: ??[id number] Narrative 10/29/2020 4:29 PM CDT XR LUMBAR [...] extension. JULIO CÉSAR HUITRON MD SYSTEM ID: [id number] Ana Jacobs PA-C [facility] ORDER TRELL documented in this encounter Visit Diagnoses Diagnosis Acute bilateral low back pain with left- sided sciatica documented in this encounter Care Teams Ammunition Assembly Ii Laborer Relationship Specialty Start Date End Date Idalmis Sloan PCP - General Family Practice 11/04/13 documented as of this encounter
--- OUTSIDE RECORDS SUMMARY | 2022-01-15 15:27 | XMS_ITS | Encounter Summary ---
:1950 Author Organization [place] Address [facility] [place] [address] Care Team Providers Name Role Phone Idalmis Sloan Primary Care Provider Reason for Referral Diagnostic Imaging XR (Routine) - Closed Specialty Diagnoses / Procedures Referred By Contact Refer red To Contact Diagnoses Acute bilateral low back pain with left-sided sciatica Ana Jacobs PA-C Procedures XR Lumbar Bending Only 2/3 Views [facility] [place] [address] Referral ID Status Reason Start Date Expiration Date Visits Requ ested Visits Authorized [id number] Closed 10/29/2020 10/29/2021 1 1 Diagnostic Imaging XR (Routine) - Closed Specialty Diagnoses / Procedures Referred By Contact Refer red To Contact Diagnoses Acute bilateral low back pain with left-sided sciatica Ana Jacobs PA-C Procedures XR Spine Complete Scoliosis 2 Views [facility] [place] [address] Referral ID Status Reason Start Date Expiration Date Visits Requ ested Visits Authorized [id number] Closed 10/29/2020 10/29/2021 [address] Scan (Routine) - Closed Specialty Diagnoses / Procedures Referred By Contact Refer red To Contact Diagnoses Acute bilateral low back pain with left-sided sciatica Ana Jacobs PA-C Procedures CT Lumbar Spine w/o Contrast [facility] [address] [place] [address] Referral ID Status Reason Start Date Expiration Date Visits Requ ested Visits Authorized [id number] Closed 10/29/2020 10/29/2021 1 1 Reason for Visit Reason Comments Consult Low back pain; L hip pain Neurologic Problem Encounter Details Date Type Department Care Team Description 10/29/2020 Office Visit [facility] [place] [address] [place] [address] Acute bilateral low back pain with left- sided sciatica (Primary Dx); [facility] Neurosurgery Ana Jacobs PA-C [facility] [address] [address]84[address] Lumbar radiculopathy Clinic [place] [address] [place] [address] Drive [address] [place] [phone] Social History Tobacco Use Types Packs/Day Years [...] will need to call to schedule. Call [facility]ology scheduling for your procedure: For scheduling in the [place] ([facility], and [place]) call [phone] or [phone] For scheduling at [facility] ([facility], [facility], [facility]), call [phone] or [phone] For scheduling in the [place] ([facility]) call [phone] or [phone] -Recommend scoliosis films in addition to standing XR neutral/flexion/extension -Recommend following up once all imaging has been obtained to review and go over next Ana Jacobs PA-C [facility] Neurosurgery [address] [place] [address] documented in this encounter Progress Notes Ana [...] None of these modalities have provided anysignificant mcfp relief. Krys's Sachin had prior back surgery [...] agreed to call our office back at [phone] to further discuss possible surgical interventions or [...] seek being evaluated. Respectfully, Ana Jacobs PA-C [facility] Neurosurgery [address] [address] Exam, imaging, and plan reviewed by Dr. [...] using cuff size: regular Extreme Pain (8) eGrman Moncada. OLEG Diaz documented in this encounter [...] MR 06/22/2020. TORRES RIVAS MD SYSTEM ID: ??[id number] Narrative 11/09/2020 9:[address] LUMBAR [...] MR 06/22/2020. TORRES RIVAS MD SYSTEM ID: [id number] Ana COULTER-C IMG CT ORDERABLES XR Lumbar [...] extension. JULIO CÉSAR HUITRON MD SYSTEM ID: ??[id number] Narrative 10/29/2020 4:29 PM CDT XR LUMBAR [...] extension. JULIO CÉSAR HUITRON MD SYSTEM ID: [id number] Ana Jacobs PA-C IMG DIAGNOSTIC IMAGING ORDER [...] sciatica documented in this encounter Care Teams Business Center Manager Relationship Specialty Start Date End Date Idalmis Sloan PCP - General Family Practice 11/04/13 documented as of this encounter
--- OUTSIDE RECORDS SUMMARY | 2022-01-15 15:27 | XMS_ITS | Encounter Summary ---
:1950 Author Organization [place] Address [address] [place] [address] Care Team Providers Name Role Phone Idalmis Sloan Primary Care Provider Encounter Details Date Type Department Care Team Description 03/09/2019 Therapy Visit [facility] Bel[facility] [place], Lumbar pain (Primary Rehabilitation Services AOC PLANS INTELLIGENCE OFFICER CHIEF Dx) [facility] [address] [facility] [address] [place] [address] Social History Tobacco Use Types Packs/Day Years Used Date Smoking Tobacco: Never Smokeless Tobacco: Never Sex Assigned at Date Recorded Not on file documented as of this encounter Plan of Treatment Not on filedocumented as of this encounter Procedures Procedure Name Priority Date/Time Associated Diagnosis Comme nts Z THERAPEUTIC Routine 03/09/2019 3:43 PM RCP Lumbar pain ACTIVITIES ZZ THERAPEUTIC Routine 03/09/2019 3:43 PM RCP Lumbar pain EXERCISES documented in this encounter Visit Diagnoses Diagnosis Lumbar pain - Primary Lumbago documented in this encounter Care Teams Racket Stringer Relationship Specialty Start Date End Date Idalmis Sloan PCP - General Family Practice 11/04/13 documented as of this encounter
--- OUTSIDE RECORDS SUMMARY | 2022-01-15 15:27 | XMS_ITS | Encounter Summary ---
:1950 Author Organization [place] Address [facility] [place] [address] Care Team Providers Name Role Phone Idalmis [...] on filedocumented in this encounter Care Teams Molded Goods Controls Operator Relationship Specialty Start Date End Date Idalmis Sloan PCP - General Family Practice 11/04/13 Ana Jacobs PA-C Assigned Neuroscience 11/04/20 12/01/20 [facility] Provider [address] [address] documented as of this encounter
--- OUTSIDE RECORDS SUMMARY | 2022-01-15 15:27 | XMS_ITS | Encounter Summary ---
:1950 Author Organization [place] Address [address] [place] [address] Care Team Providers Name Role Phone Idalmis [...] Observation Dept [address] [place], [place] [address] Phone: Referral ID Status Reason Start Date Expiration Date Visits Requ ested Visits Authorized [id number] 1 1 Encounter Details Date Type Department Care Team Description 12/16/2020 - [facility] Caleb Dawn PA-C [facility] [address] [place], [place] [address] Constipation with Fecal impaction; 12/18/2020 [facility] Observation Amando Ross MD [facility] [address] [place] [address] Stercoral colitis; Dept Lisandro Crawford MD [address] [place], [place] [id number] Coronary artery calcification; [address] [place] [address] Social History Tobacco Use Types [...] Brar PA-C - 12/18/2020 10:20 AM CDT [facility] Hospitalist Discharge Summary Date [...] minutes discharging this patient. Uma Brar PA-C [facility] OBSERVATION DEPT [address] [facility] [address] Physical Exam Vital Signs: Temp: 97.6 ??F [...] order SW consult): Home w/ Facility name: key person: - Cheikh Activity level at baseline: [...] Crawford MD - 12/17/2020 2:17 AM CDT [facility] History and Physical - Hospitalist Service [...] Central Lines: None Code Status: Full Code Lisnadro Crawford MD [facility] Securely message with the [employer] Search[employer] (learn more here) Text page via [employer] Paging/Directory Chief Complaint Diarrhea History is obtained [...] opioid use. Rectal disimpaction unsuccessful. Success with [place] lady enema and Relistor. Now with large [...] Mejia RN - 12/17/2020 1:[address] [facility] ED Nurse Handoff [...] 1. Lift room needed: No. Bariatric: No Program Admin Needed: No Isolation: No. Infection: Not Applicable. [...] Status --------- ------ CBC with platelets and d...[[id number]] Abnormal Final result Please view results for [...] Quinolones Sulfa Drugs Lorazepam Medications: Nexium Lasix [place] Methadone Zocor Trazodone Florastor Past Medical History: [...] Status --------- ------ CBC with platelets and d...[[id number]] Abnormal Final result Please view results for [...] Return to near baseline physical activity: Yes Boat Cleaning Supervisor Nurse Safe discharge environment identified: Yes Barriers [...] for discharge by consultants (if involved): N/A Boat Cleaning Supervisor Nurse Safe discharge environment identified: Yes, home w/ Barriers to discharge: Yes Entered by: Elfego Randall 12/18/2020 5:51 AM Vitals are Temp: 97.9 ??F (36.6 ??C) Temp src: Oral BP: (!) 158/98 Pulse: 79 Resp: 20 SpO2: 95 %. Patient is alert and oriented. Up SBA w/walker. On a regular diet. 8/10 chronic back and left hip pain. On scheduled methadone and prn [place]. PIV SL. Continuing supportive cares. Likely home [...] for discharge by consultants (if involved): N/A Boat Cleaning Supervisor Nurse Safe discharge environment identified: Yes, home [...] ice pack. On scheduled methadone with prn [place] for chronic pain. PIV SL. Ambulated hallways [...] for discharge by consultants (if involved): N/A Boat Cleaning Supervisor Nurse Safe discharge environment identified: Yes, home w/ Barriers to discharge: Yes Entered by: Elfego Randall 12/17/2020 11:27 PM Vitals are Temp: 98.4 ??F (36.9 ??C) Temp src: Oral BP: 110/76 Pulse: 84 Resp: 16 SpO2: 96 %. Patient is Alert and Oriented x4. Up SBA w/walker. On a regular diet. Reports 9/10 rectal discomfort. Ice applied. On scheduled methadone. Prn [place] also given. PIV SL. Up to bathroom [...] 7. Provider specific discharge goals met: yes Boat Cleaning Supervisor Nurse Safe discharge environment identified: Yes Barriers [...] 7. Provider specific discharge goals met: Yes Boat Cleaning Supervisor Nurse Safe discharge environment identified: Yes Barriers [...] Lazara Fontenot, [facility] - 12/17/2020 10:24 AM CDT Admission medication history interview status for this patient is complete. See [facility] admission navigator for allergy information, prior to admission medications and immunization status. Medication history interview done, indicate source(s): Patient Medication history resources (including written lists, pill bottles, clinic record): Sure Scripts fill record Pharmacy: [facility] Changes made to [employer] medication list: Added: latanoprost, Patanol eye drops, [...] on Movantik. Patient has Medicare D through [facility]. Movantik: Not covered. Relistor: Not covered. Amitiza: $47/mo. Dea Torres, Cyber Security Specialist/Liaison, Discharge Pharmacy [phone] Plan of Care - Reggie Langford RN - 12/17/2020 9:02 AM CDT PRIMARY DIAGNOSIS: dehydration/weakness OUTPATIENT/OBSERVATION GOALS TO BE MET BEFORE DISCHARGE: 1. Stable vital signs Yes 2. Tolerating diet:Yes 3. Pain controlled with oral pain medications: Yes 4. Positive bowel sounds: Yes 5. Voiding without difficulty: Yes 6. Able to ambulate: Yes 7. Provider specific discharge goals met: Yes Boat Cleaning Supervisor Nurse Safe discharge environment identified: Yes Barriers [...] Return to near baseline physical activity: No Boat Cleaning Supervisor Nurse Safe discharge environment identified: Yes Barriers [...] diet. C/o 8/10 left shoulder pain, PRN [place] administered. NS running at 100mL/hr. C/o SOB [...] Code Phon e Number [place] [address] Care Lab [address] Lab (1st floor, no room number) [...] City/State/ZIP Code [place] [phone] Care Lab [address] Lab (1st floor, no room number) [...] Address City/State/ZIP Code [place] [address] Care Lab [address] Lab (1st floor, no room number) [...] exposure or clinical presentation sugges ts COVID-19. ??[facility] are certified under the Clinical Laborat ory Improvement Amendments of 1988 (CLIA-88) as qualified to perform moderate and/or high complexity laboratory testing. Caleb Dawn PA-C LAB - MICRO GENERAL ORDERAB LES Performing Organization Address City/State/[place] [address] Care Lab [address] [facility] [facility] (1[facility] floor, no room number) Abd/pelvis [...] EXAM: CT ABDOMEN PELVIS W CONTRAST LOCATION: [facility] DATE/TIME: 12/16/2020 11:23 PM INDICATION: Diverticulitis suspected, [...] EXAM: CT ABDOMEN PELVIS W CONTRAST LOCATION: [facility] DATE/TIME: 12/16/2020 11:23 PM INDICATION: Diverticulitis suspected, [...] platelets and differential (12/16/2020 9:38 PM CDT) [facility] Method Time Signature WBC Count 11.1 [...] LAB - BLOOD ORDERABLES Performing Organization Address City/[facility]/[place] [phone] Care Lab [address] Lab (1st floor, no room number) [...] LAB - BLOOD ORDERABLES Performing Organization Address City/[facility]/[place] [address] Care Lab [address] Lab (1st floor, no room number) (ABNORMAL) Comprehensive metabolic panel (12/16/2020 9:38 PM CDT) [facility] Method Time Signature Sodium 134 133 [...] City/State/ZIP Code [place] [address] Care Lab [address] Lab [...] documented as of this encounter Care Teams Hairspring Adjuster Relationship Specialty Start Date End Date Idalmis Sloan PCP - General Family Practice 11/04/13 Madhav Matute MD Assigned Neuroscience 12/02/[address] [place] [address] [place] [address] documented as of this encounter
--- OUTSIDE RECORDS SUMMARY | 2022-01-15 15:27 | XMS_ITS | Encounter Summary ---
:1950 Author Organization [place] Address [address] [place] [address] Care Team Providers Name Role Phone Idalmis [...] on filedocumented in this encounter Care Teams Client Account Specialist Relationship Specialty Start Date End Date Idalmis Sloan PCP - General Family Practice 11/04/13 documented as of this encounter
--- OUTSIDE RECORDS SUMMARY | 2022-01-15 15:27 | XMS_ITS | Encounter Summary ---
:1950 Author Organization [place] Address [address] [place] [address] Care Team Providers Name Role Phone Idalmis Sloan Primary Care Provider Encounter Details Date Type Department Care Team Description 04/06/2019 [facility] Lum[facility] (Primary Rehabilitation Services [address] Dx) [address] [place] [address] [address] [address] [place] [address] (Work) [phone] Social History Tobacco Use Types Packs/Day Years Used Date Smoking Tobacco: Never Smokeless Tobacco: Never Sex Assigned at Date Recorded Not on file documented as of this encounter Plan of Treatment Not on filedocumented as of this encounter Procedures Procedure Name Priority Date/Time Associated Diagnosis Comme [facility] ZZ THERAPEUTIC Routine 04/06/2019 3:[address] CLERK Lumbar pain EXERCISES documented in this encounter Visit Diagnoses Diagnosis Lumbar pain - Primary Lumbago documented in this encounter Care Teams Drawbridge Operator Relationship Specialty Start Date End Date Idalmis Sloan PCP - General Family Practice 11/04/13 documented as of this encounter
--- OUTSIDE RECORDS SUMMARY | 2022-01-15 15:27 | XMS_ITS | Encounter Summary ---
:1950 Author Organization [place] Address [address] [place] [address] Care Team Providers Name Role Phone Idalmis [...] on filedocumented in this encounter Care Teams Antique Clock Repairer Relationship Specialty Start Date End Date Idalmis Sloan PCP - General Family Practice 11/04/13 documented as of this encounter
--- OUTSIDE RECORDS SUMMARY | 2022-01-15 15:27 | XMS_ITS | Encounter Summary ---
:1950 Author Organization [place] Address [address] [place] [address] Care Team Providers Name Role Phone Idalmis Sloan Primary Care Provider Ana Jacobs PA-C Unavailable Reason for Referral Diagnostic Imaging XR (Routine) - Closed Specialty Diagnoses / Procedures Referred By Contact Refer red To Contact Diagnoses Acute bilateral low back pain with left-sided sciatica Lumbar radiculopathy Madhav Matute MD Procedures XR Lumbar Epidural Injection Incl Imaging [address] [place] [address] Referral ID Status Reason Start Date Expiration Date Visits Requ ested Visits Authorized [id number] Closed 11/19/2020 11/19/2021 1 1 Reason for Visit Reason Comments RECHECK Lumbar Encounter Details Date Type Department Care Team Description 11/19/2020 Office Visit [facility] Madhav Melton Acute darrell ateral low back pain with left-sided sciatica (Primary Dx); [facility] Neurosurgery MD Cordell Lumbar radiculopathy Clinic [place] [address] [address] [facility] [address] [place] [phone] Social History Tobacco Use Types Packs/Day Years [...] after this timeframe. o You can call [facility] ([facility]) to schedule your injection at [phone] ??? We will work on obtaining your DEXA scan results for Dr. Matute to review. ??? Dr. Matute would like to see you back in the clinic for follow up one month after your injection. Please call the number below to schedule. Please call us if you have any further questions or concerns. [facility] documented in this encounter [...] SARAH/Minnie November 19, 2020 to fax number [phone] Right Fax confirmed at 1615 PM documented [...] unspecified documented in this encounter Care Teams Assistant Analyst Relationship Specialty Start Date End Date Idalmis Sloan PCP - General Family Practice 11/04/13 Ana Jacobs PA-C Assigned Neuroscience 11/04/20 12/01/20 [facility] Provider [address] [address] documented as of this encounter
--- OUTSIDE RECORDS SUMMARY | 2022-01-15 15:27 | XMS_ITS | Encounter Summary ---
:1950 Author Organization [place] Address [address] [place] [address] Care Team Providers Name Role Phone Idalmis [...] on filedocumented in this encounter Care Teams Rn Interventional Relationship Specialty Start Date End Date Idalmis Sloan PCP - General Family Practice 11/04/13 documented as of this encounter
--- OUTSIDE RECORDS SUMMARY | 2022-01-15 15:27 | XMS_ITS | Encounter Summary ---
:1950 Author Organization [place] Address [address] [place] [address] Care Team Providers Name Role Phone Idalmis [...] on filedocumented in this encounter Care Teams Presiding Judge Relationship Specialty Start Date End Date Idalmis Sloan PCP - General Family Practice 11/04/13 documented as of this encounter
--- OUTSIDE RECORDS SUMMARY | 2022-01-15 15:28 | XMS_ITS | Encounter Summary ---
:1950 Author Organization [place] Address [address] [place] [address] Care Team Providers Name Role Phone Idalmis Sloan Primary Care Provider Encounter Details Date Type Department Care Team Description 11/30/2015 Therapy Visit [facility] [place] Saeed PT Sprain of left rotator cuff capsule, sub sequent encounter (Primary Dx); Rehabilitation [id number] [address] Other postp rocedural status(V45.89) Services [place] [address] [place] [address] [address] [address] [place] [address] (Work) [phone] Social History Tobacco Use Types Packs/Day Years Used Date Smoking Tobacco: Never Assessed Sex Assigned at Date Recorded Not on file documented as of this encounter Plan of Treatment Not on filedocumented as of this encounter Procedures Procedure Name Priority Date/Time Associated Diagnosis Comme nts [facility] NEUROMUSCULAR Routine 12/04/2015 1:24 PM Sprain of left RE-EDUCATION CDT rotator cuff capsule, subsequent encounter [facility] THERAPEUTIC EXERCISES Routine 12/04/2015 1:24 PM Sprain of left CDT rotator cuff capsule, subsequent encounter documented in this encounter Visit Diagnoses Diagnosis Sprain of left rotator cuff capsule, sub sequent encounter - Primary Other postprocedural status(V45.89) Other postprocedural status documented in this encounter Care Teams Social Security Assessor Relationship Specialty Start Date End Date Idalmis Sloan PCP - General Family Practice 11/04/13 documented as of this encounter
--- OUTSIDE RECORDS SUMMARY | 2022-01-15 15:28 | XMS_ITS | Encounter Summary ---
:1950 Author Organization [place] Address [facility] [place] [address] Care Team Providers Name Role Phone Idalmis Sloan Primary Care Provider Reason for Visit KIMBER Physical Therapy (Routine) - Denied Specialty Diagnoses / Procedures Referred By Contact Refer red To Contact Physical Therapy Diagnoses >4 s/p L rot tiff / mehdi lorenzana @ ortho / BCBS 30 visits per year Mehdi Gaffney MD Judd, Laurie, PT Procedures EXTREMITY INITIAL ORTHOPAEDIC AND [id number] [place] [address] [facility] [address] [place] [address] Referral ID Status Reason Start Date Expiration Date Visits V isits Requested Authorized KIMBER/WC/PT/L Denied 06/11/2015 06/10/2016 14 0 SH[facility]DR [place] [id number] Encounter Details Date Type Department Care Team Description 06/27/2015 Therapy Visit [facility] Artie, Sprain of left rotator cuff capsule, subsequent encounter (Primary Dx); Rehabilitation Services CORRINA Melissa r postprocedural status(V45.89) [facility] [address] [facility] [address] [place] [address] Social History Tobacco Use Types Packs/Day Years Used Date Smoking Tobacco: Never Assessed Sex Assigned at Date Recorded Not on file documented as of this encounter Plan of Treatment Not on filedocumented as of this encounter Procedures Procedure Name Priority Date/Time Associated Diagnosis Comme [facility] THERAPEUTIC Routine 06/27/2015 8:29 PM Sprain of left rota tor EXERCISES CDT cuff capsule, subsequent encounter Other postprocedural status(V45.89) [facility] HOT OR COLD PACKS Routine 06/27/2015 8:29 PM Sprain of lef t rotator THERAPY CDT cuff capsule, subsequent encounter Other postprocedural status(V45.89) documented in this encounter Visit Diagnoses Diagnosis Sprain of left rotator cuff capsule, sub sequent encounter - Primary Other postprocedural status(V45.89) Other postprocedural status documented in this encounter Care Teams Professional Housing Consultant Relationship Specialty Start Date End Date Idalmis Sloan PCP - General Family Practice 11/04/13 documented as of this encounter
--- OUTSIDE RECORDS SUMMARY | 2022-01-15 15:28 | XMS_ITS | Encounter Summary ---
:1950 Author Organization [place] Address [address] [place] [address]. [place] [address] Care Team Providers Name Role Phone Idalmis Sloan Primary Care Provider Reason for Visit KIMBER Physical Therapy (Routine) - Denied Specialty Diagnoses / Procedures Referred By Contact Refer red To Contact Physical Therapy Diagnoses >4 s/p L rot tiff / mehdi lorenzana @ ortho / BCBS 30 visits per year Mehdi Gaffney MD Judd, Laurie, PT Procedures EXTREMITY INITIAL OR[facility]OPAEDIC AND [id number] [place] [address] [facility] [address] [place] [address] Referral ID Status Reason Start Date Expiration Date Visits V isits Requested Authorized KIMBER/WC/PT/L Denied 06/11/2015 06/10/2016 14 0 SHLDR [place] [id number] Encounter Details Date Type Department Care Team Description 06/21/2015 [facility], Sprain of left rotator cuff capsule, subsequent encounter (Primary Dx); Rehabilitation Services CORRINA Melissa Otnatacha r postprocedural status(V45.89) [facility] [address] [place] [address] Social History Tobacco Use [...] Comme nts [facility] THERAPEUTIC Routine 06/22/2015 10:17 AM Sprain of left rot ator EXERCISES CDT cuff capsule, subsequent encounter Other postprocedural status(V45.89) [facility] HOT OR COLD PACKS Routine 06/22/2015 10:17 AM Sprain of le ft rotator THERAPY CDT cuff capsule, subsequent encounter Other postprocedural status(V45.89) documented in this encounter Visit Diagnoses Diagnosis Sprain of left rotator cuff capsule, sub sequent encounter - Primary Other postprocedural status(V45.89) Other postprocedural status documented in this encounter Care Teams Procurement Technician Relationship Specialty Start Date End Date Idalmis Sloan PCP - General Family Practice 11/04/13 documented as of this encounter
--- OUTSIDE RECORDS SUMMARY | 2022-01-15 15:28 | XMS_ITS | Encounter Summary ---
:1950 Author Organization [place] Address [address] [place] [address] Care Team Providers Name Role Phone Idalmis Sloan Primary Care Provider Reason for Visit KIMBER Physical Therapy (Routine) - Closed Specialty Diagnoses / Procedures Referred By Contact Refer red To Contact Registered Clinical Dietitian Diagnoses >4 [place] side hip pain, LBP / Idalmis Sloan MD@ [place] / [facility] /referral exists 20V thru 03.01.18(MSG) Idalmis Sloan Linda, PTA / Physical Therapy Procedures SPINE FOLLOW UP [facility] [address] [place] [address] Referral ID Status Reason Start Date Expiration Date Visits Requ ested Visits Authorized [id number] Closed 03/16/2018 03/01/2019 20 18 Encounter Details Date Type Department Care Team Description 03/22/2018 Therapy Visit [facility] Belén Alva, Hip josefina n, left Rehabilitation Services [facility] [place] [address] [facility] [address] [place] [address] Social History Tobacco Use Types [...] Procedure Name Priority Date/Time Associated Diagnosis Comme [facility] THERAPEUTIC Routine 03/23/2018 12:46 PM Hip pain, left EXERCISES FINISHING RANGE OPERATOR documented in this encounter Visit Diagnoses Diagnosis Hip pain, left Pain in joint, pelvic region and thigh documented in this encounter Care Teams Rubber Liner Relationship Specialty Start Date End Date Idalmis Sloan PCP - General Family Practice 11/04/13 documented as of this encounter
--- OUTSIDE RECORDS SUMMARY | 2022-01-15 15:28 | XMS_ITS | Encounter Summary ---
:1950 Author Organization [place] Address [facility] [place] [address] Care Team Providers Name Role Phone Idalmis Sloan Primary Care Provider Reason for Visit KIMBER Physical Therapy (Routine) - Closed Specialty Diagnoses / Procedures Referred By Contact Refer red To Contact Physical Therapy Diagnoses >4, Back / Mercy Vasquez @ [facility] Pain / BCBS Mercy Vasquez, HEALTH INFORMATION SPECIALIST Daniel Shi, PT Procedures SPINE INITIAL [facility] PAIN [facility] [address] [place] [address] [place] [address] [place] [address] Referral ID Status Reason Start Date Expiration Date Visits Requ ested Visits Authorized [id number] Closed 07/22/2017 03/01/2018 20 18 Encounter Details Date Type Department Care Team Description 07/29/2017 Therapy Visit [facility] Daniel Shi Lumba go (Primary Rehabilitation Services PT Dx) [facility] [address] [address] [facility] [address] [place] [address] [phone] Social History Tobacco Use Types Packs/Day Years Used Date Smoking Tobacco: Never Smokeless Tobacco: Never Sex Assigned at Date Recorded Not on file documented as of this encounter Progress Notes Anirudh Wells - 07/29/2017 3:10 PM CDT [facility] Initial Evaluation Krys Mosher [...] Primary documented in this encounter Care Teams Nurse Practitioner Physicians Assistant Relationship Specialty Start Date End Date Idalmis Sloan PCP - General Family Practice 11/04/13 documented as of this encounter
--- OUTSIDE RECORDS SUMMARY | 2022-01-15 15:28 | XMS_ITS | Encounter Summary ---
:1950 Author Organization [place] Address [facility] [place] [address] Care Team Providers Name Role Phone Idalmis Sloan Primary Care Provider Reason for Visit KIMBER Physical Therapy (Routine) - Denied Specialty Diagnoses / Procedures Referred By Contact Refer red To Contact Physical Therapy Diagnoses >4 s/p L rot tiff / mehdi lorenzana @ ortho / BCBS 30 visits per year Mehdi Gaffney MD Judd, Laurie, PT Procedures EXTREMITY INITIAL OR[facility]OP[facility]EDIC AND [id number] [place] [address] [facility] [address] [place] [address] Referral ID Status Reason Start Date Expiration Date Visits V isits Requested Authorized KIMBER/WC/PT/L Denied 06/11/2015 06/10/2016 14 0 SHLDR [place] [id number] Encounter Details Date Type Department Care Team Description 08/07/2015 Therapy Visit [facility] Artie, Sprain of left rotator cuff capsule, subsequent encounter (Primary Dx); Rehabilitation Services CORRINA Melissa r postprocedural status(V45.89) [facility] [address] [place] [address] Social History Tobacco Use Types [...] cuff capsule, subsequent encounter Other postprocedural status(V45.89) [facility] HOT OR COLD PACKS Routine 08/09/2015 [...] status documented in this encounter Care Teams Thermograph Operator Relationship Specialty Start Date End Date Idalmis Sloan PCP - General Family Practice 11/04/13 documented as of this encounter
--- OUTSIDE RECORDS SUMMARY | 2022-01-15 15:28 | XMS_ITS | Encounter Summary ---
:1950 Author Organization [place] Address [address] [place] [address] Care Team Providers Name Role Phone Idalmis Sloan Primary Care Provider Encounter Details Date Type Department Care Team Description 11/22/2015 Therapy Visit [facility] Sandra Shelton, Sprain of left rotator cuff capsule, subsequent encounter (Primary Dx); Rehabilitation ATC Other postprocedural status(V45.89) Services [facility] Specialty Care [facility] [id number] [place] [address] [place] [address] [address] [facility] [address] [place] [address] [phone] Social History Tobacco Use Types Packs/Day Years Used Date Smoking Tobacco: Never Assessed Sex Assigned at Date Recorded Not on file documented as of this encounter Plan of Treatment Not on filedocumented as of this encounter Procedures Procedure Name Priority Date/Time Associated Diagnosis Comme nts [facility] NEUROMUSCULAR Routine 11/22/2015 4:54 PM Sprain of left ro tator RE-EDUCATION CDT cuff capsule, subsequent encounter Other postprocedural status(V45.89) [facility] THERAPEUTIC Routine 11/22/2015 4:54 PM Sprain of left rota tor EXERCISES CDT cuff capsule, subsequent encounter Other postprocedural status(V45.89) [facility] HOT OR COLD PACKS Routine 11/22/2015 4:54 PM Sprain of lef t rotator THERAPY CDT cuff capsule, subsequent encounter Other postprocedural status(V45.89) documented in this encounter Visit Diagnoses Diagnosis Sprain of left rotator cuff capsule, sub sequent encounter - Primary Other postprocedural status(V45.89) Other postprocedural status documented in this encounter Care Teams Four Horse Hitch Driver Relationship Specialty Start Date End Date Idalmis Sloan PCP - General Family Practice 11/04/13 documented as of this encounter
--- OUTSIDE RECORDS SUMMARY | 2022-01-15 15:28 | XMS_ITS | Encounter Summary ---
:1950 Author Organization [place] Address [address] [place] [address] Care Team Providers Name Role Phone Idalmis [...] on filedocumented in this encounter Care Teams Plastic Installer Relationship Specialty Start Date End Date Idalmis Sloan PCP - General Family Practice 11/04/13 documented as of this encounter
--- OUTSIDE RECORDS SUMMARY | 2022-01-15 15:28 | XMS_ITS | Encounter Summary ---
:1950 Author Organization [place] Address [address] [facility] [place] [address] Care Team Providers Name Role Phone Idalmis Sloan Primary Care Provider Reason for Visit Reason Onset Date Comments Outreach 04/14/2017 UC FOLLOW UP - COMPL ETED Encounter Details Date Type Department Care Team Description 04/14/2017 Telephone [facility] Laith Oliver ( FOLLOW UP Urgent Care Lacy Craig MD - COMPLETED) [address] [facility] [address] [place], [place], [place] [id number] [phone] Social History Tobacco Use Types Packs/Day Years [...] others? YES Comments: Appointment scheduled? NO Location? M INSPECTOR documented in this encounter Plan of Treatment Not on filedocumented as of this encounter Visit Diagnoses Not on filedocumented in this encounter Care Teams Public Health Technician Relationship Specialty Start Date End Date Idalmis Sloan PCP - General Family Practice 11/04/13 documented as of this encounter
--- OUTSIDE RECORDS SUMMARY | 2022-01-15 15:28 | XMS_ITS | Encounter Summary ---
:1950 Author Organization [place] Address [facility] [place] [address] Care Team Providers Name Role Phone Idalmis Sloan Primary Care Provider Reason for Visit KIMBER Physical Therapy (Routine) - Closed Specialty Diagnoses / Procedures Referred By Contact Refer red To Contact Physical Therapy Diagnoses >4, Back / Mercy Pedro @ [facility] Pain / BCBS Mercy Vasquez, V BLOCK SAW OPERATOR Daniel Shi, PT Procedures SPINE INITIAL [facility] [address] [place] [address] [place] [address] [place] [address] Referral ID Status Reason Start Date Expiration Date Visits Requ ested Visits Authorized [id number] Closed 07/22/2017 03/01/2018 20 18 Encounter Details Date Type Department Care Team Description 08/14/[address] [facility] Jensen Hernandez, PT Lumbago (Primary Dx) Rehabilitation Services [address] [place] [address] DR [facility] [address] [address] [address] [place] [address] (Work) [phone] Social History Tobacco Use Types Packs/Day Years [...] is being advanced to more complex exercises. CODE MACHINE OPERATOR/ATC plan: N/A Please refer to the daily [...] Diagnosis Comme nts [facility] NEUROMUSCULAR Routine 08/14/2017 6:01 PM Lumbago RE-EDUCATION CDT [facility] THERAPEUTIC EXERCISES Routine 08/14/2017 6:01 PM Lumbago CDT documented in this encounter Visit Diagnoses Diagnosis Lumbago - Primary documented in this encounter Care Teams Landfill Gas Technician Relationship Specialty Start Date End Date Idalmis Sloan PCP - General Family Practice 11/04/13 documented as of this encounter
--- OUTSIDE RECORDS SUMMARY | 2022-01-15 15:28 | XMS_ITS | Encounter Summary ---
:1950 Author Organization [place] Address [address] [place] [address]. [place] [address] Care Team Providers Name Role Phone Idalmis Sloan Primary Care Provider Reason for Visit KIMBER Physical Therapy (Routine) - Denied Specialty Diagnoses / Procedures Referred By Contact Refer red To Contact Physical Therapy Diagnoses >4 s/p L rot tiff / mehdi lorenzana @ ortho / BCBS 30 visits per year Mehdi Gaffney MD Judd, Laurie, PT Procedures EXTREMITY INITIAL ORTHOPAEDIC AND [id number] [place] [address] [facility] [address] [place] [address] Referral ID Status Reason Start Date Expiration Date Visits V isits Requested Authorized KIMBER/WC/PT/L Denied 06/11/2015 06/10/2016 14 0 [facility]LDR [place] [id number] Encounter Details Date Type Department Care Team Description 07/10/2015 Therapy Visit [facility] Artie, Sprain of left rotator cuff capsule, subsequent encounter (Primary Dx); Rehabilitation Services CORRINA Melissa postprocedural status(V45.89) [facility] [address] [facility] [address] [place] [address] Social History Tobacco Use Types [...] status(V45.89) [facility] THERAPEUTIC Routine 07/11/2015 7:11 AM Sprain of left rota tor EXERCISES CDT cuff capsule, subsequent encounter Other postprocedural status(V45.89) documented in this encounter Visit Diagnoses Diagnosis Sprain of left rotator cuff capsule, sub sequent encounter - Primary Other postprocedural status(V45.89) Other postprocedural status documented in this encounter Care Teams Accreditation Specialist Relationship Specialty Start Date End Date Idalmis Sloan PCP - General Family Practice 11/04/13 documented as of this encounter
--- OUTSIDE RECORDS SUMMARY | 2022-01-15 15:28 | XMS_ITS | Encounter Summary ---
:1950 Author Organization [place] Address [address] [place] [address] Care Team Providers Name Role Phone Idalmis [...] on filedocumented in this encounter Care Teams Retort Cooler Relationship Specialty Start Date End Date Idalmis Sloan PCP - General Family Practice 11/04/13 documented as of this encounter
--- OUTSIDE RECORDS SUMMARY | 2022-01-15 15:28 | XMS_ITS | Encounter Summary ---
:1950 Author Organization [place] Address [address] [place] [address]. [place] [address] Care Team Providers Name Role Phone Idalmis Sloan Primary Care Provider Reason for Visit KIMBER Physical Therapy (Routine) - Closed Specialty Diagnoses / Procedures Referred By Contact Refer red To Contact Physical Therapy Diagnoses >4, Back / Mercy Pedro @ [facility] Pain / BCBS Mercy Vasquez, CAMPUS WELLNESS COORDINATOR Daniel Shi, PT Procedures SPINE INITIAL [facility] PAIN [facility] [address] [place] [address] [place] [address] [place] [address] Referral ID Status Reason Start Date Expiration Date Visits Requ ested Visits Authorized [id number] Closed 07/22/2017 03/01/2018 18 Encounter Details Date Type Department Care Team Description 02/16/2018 [facility] Rehabilitation Services [address] [facility] [id number] [place] [address] [address] [address] [address] [place] [address] (Work) [phone] Social History Tobacco Use Types Packs/Day Years Used Date Smoking Tobacco: Never Smokeless Tobacco: Never Sex Assigned at Date Recorded Not on file documented as of this encounter Plan of Treatment Not on filedocumented as of this encounter Visit Diagnoses Not on filedocumented in this encounter Care Teams Resistor Winder Relationship Specialty Start Date End Date Idalmis Sloan PCP - General Family Practice 11/04/13 documented as of this encounter
--- OUTSIDE RECORDS SUMMARY | 2022-01-15 15:28 | XMS_ITS | Encounter Summary ---
:1950 Author Organization [place] Address [facility] [place] [address] Care Team Providers Name Role Phone Idalmis Sloan Primary Care Provider Reason for Visit Reason Comments Wound Infection Back Pain Nausea Diarrhea Auth/Cert Specialty Diagnoses / Procedures Referred By Contact Refer red To Contact Med Surg Diagnoses Cellulitis of right foot H/O Clostridium difficile infection Diarrhea, unspecified type Cellulitis of right foot Observation Dept [address] [place], [place] [address] Phone: Referral ID Status Reason Start Date Expiration Date Visits Requ ested Visits Authorized [id number] 1 1 Encounter Details Date Type Department Care Team Description 11/04/2018 - [facility] Codie Morales MD [facility] [address] [place] [phone] Cellulitis of right foot; 11/06/2018 [facility] Observation Chuck Cook MD [address] [place] [address] Diarrhea, unspecified type; Dept H/O Clostridium difficile in fection [address] [place] [address] Social History Tobacco Use Types [...] Branch PA-C - 11/06/2018 8:24 AM CDT [facility] Hospitalist Discharge Summary Date of Admission: [...] difficile than other alternatives. Pain controlled with LICENSED GUIDE medications. No signs of sepsis. Diarrhea resolved while hospitalized, if recurrent suggest further outpatient work-up. Consultations This Hospital Stay None Code Status Full Code Time Spent on this Encounter I, Dayna Branch PA-C, personally saw the patient today and spent greater than 30 minutes discharging this patient. Dayna Branch PA-C [facility] Physical Exam Vital Signs: Temp: 97.5 [...] Stephens PA-C - 11/05/2018 12:30 PM CDT [facility] Observation Unit Hospitalist Progress Note Name: [...] regimen of Methadone 5 mg BID and [place] 5-325 mg PRN TID #Diarrhea: reported 12 episodes of diarrhea the day prior to admission with only 2 episodes since arriving to the hospital. C diff negative. If increased diarrhea consider checking enteric panel. #Stable medical conditions: hypertension, hypercholesterolemia, GERD, PVD, hepatitis C, necessary LICENSED GUIDE medications have been resumed. DVT Prophylaxis: Ambulate [...] contact Infection Prevention with any questions/concerns at *[phone]. Erica Jolly, VIKASH Grisel Samson RN - 11/04/2018 10:04 PM CDT ROOM # 205 Living Situation (if not independent, order SW consult): Home with Facility name: surgical appliances salesperson: Cheikh [phone] Activity level at baseline: Independent Activity level [...] Cook MD - 11/04/2018 9:58 PM CDT [facility] History and Physical Hospitalist Service Chuck [...] Full Code Primary Care Physician: Idalmis Sloan [phone] Chief Complaint: Swelling and redness of right [...] Samson RN - 11/04/2018 8:36 PM CDT [facility] [...] 1. Lift room needed: No. Bariatric: No Hall Cleaner Needed: No Isolation: yes. Infection: C-Diff Pending. [...] provider's statements to me. Diana López 11/04/2018 [facility] EMERGENCY DEPARTMENT Mervin Morales MD 11/04/18 7723 documented in this encounter Miscellaneous Notes Plan [...] Yes, SBA via gait belt and walker. Assistant Plant Control Operator Nurse Safe discharge environment identified: Yes Barriers [...] Return to near baseline physical activity: Yes Assistant Plant Control Operator Nurse Safe discharge environment identified: Yes Barriers [...] Return to near baseline physical activity: Yes Assistant Plant Control Operator Nurse Safe discharge environment identified: Yes Barriers [...] Pain status: Improved-controlled with oral pain medications. [place] dose ordered 1x 4. Return to near baseline physical activity: Yes Up with SBA 1 walker Assistant Plant Control Operator Nurse Safe discharge environment identified: Yes Barriers [...] L foot,pain at 8 sharp and shooting. [place] last at 1645, hx of chronic pain. thanks Plan of Care - Elizabeth Chong RN - 11/05/2018 3:31 PM CDT PRIMARY DIAGNOSIS: GENERIC NURSING OUTPATIENT/OBSERVATION GOALS TO BE MET BEFORE DISCHARGE: ADLs back to baseline: Yes Activity and level of assistance: Up with standby assistance. Pain status: Improved-controlled with oral pain medications. Return to near baseline physical activity: No Assistant Plant Control Operator Nurse Safe discharge environment identified: Yes Barriers [...] Return to near baseline physical activity: Yes Assistant Plant Control Operator Nurse Safe discharge environment identified: Yes Barriers [...] Return to near baseline physical activity: No Assistant Plant Control Operator Nurse Safe discharge environment identified: Yes Barriers [...] to continue with antibiotics and manage symptoms. Assistant Plant Control Operator Nurse Safe discharge environment identified: Yes Barriers [...] to continue with antibiotics and manage symptoms. Assistant Plant Control Operator Nurse Safe discharge environment identified: Yes Barriers to discharge: No Entered by: Grisel Samson 11/05/2018 Please review provider order for any additional goals. Nurse to notify provider when observation goals have been met and patient is ready for discharge. Pharmacy-Admission Medication History - Lazara Fontenot RPH - 11/04/2018 11:35 PM CDT 11/05 Addendum: per clarification with patient, added [place] 5-325 mg (1 tab TID prn) to [facility] LICENSED GUIDE med list. Left sticky note to provider to review additional med. Lazara Fontenot PharmCecyD. Admission medication history interview status for this patient is complete. See [facility] admission navigator for allergy information, prior to admission medications and immunization status. Medication history interview source(s):Patient Medication history resources (including written lists, pill bottles, clinic record):[facility] records from [facility] Changes made to [facility] medication list: Added: all Medication reconciliation/reorder [...] - 5.3 11/05/2018 [facility] mmol/L 5:50 PM CDT HOSPITAL Specimen Anatomical Collection Method Collection Time Receive d Time (Source) Location / / Volume Laterality Blood specimen 11/05/2018 5:27 PM 019 5:28 (specimen) CDT PM CDT Kelly Stephens PA-C LAB - BLOOD ORDERABLES Performing Organization Address City/State/ZIP Code Phon e Number [facility] [address] [place], [place] [address] [facility] [address] [phone] (ABNORMAL) CBC with platelets (11/05/2018 6:42 AM CDT) Analysis Performed At Patho logist Time Signature WBC 8.8 4.0 - 11.0 11/05/2018 [facility] 10e9/L 7:04 AM [facility] RBC Count 3.60 (L) 3.8 - 5.2 11/05/2018 [facility] 10e12/L 7:04 AM [facility] Hemoglobin 12.3 11.7 - 11/05/2018 [facility] 15.7 g/dL 7:04 AM [facility] Hematocrit 36.4 35.0 - 11/05/2018 [facility] 47.0 % 7:04 AM [facility] MCV 101 (H) 78 - 100 11/05/2018 [facility] fl 7:04 AM [facility] MCH 34.2 (H) 26.5 - 11/05/2018 [facility] 33.0 pg 7:04 AM [facility] MCHC 33.8 31.5 - 11/05/2018 [facility] 36.5 g/dL 7:04 AM [facility] RDW 12.9 10.0 - 11/05/2018 [facility] 15.0 % 7:04 AM [facility] Platelet Count 191 150 - 450 11/05/2018 [facility] 10e9/L 7:04 AM [facility] Specimen Anatomical Collection Method Collection Time Receive d Time (Source) Location / / Volume Laterality Blood specimen 11/05/2018 6:42 AM 019 6:43 (specimen) CDT AM CDT Chuck Cook MD LAB - BLOOD ORDERABLES Performing Organization Address City/State/ZIP Code Phon e Number [facility] [address] [place] [address] [facility] [address] [phone] (ABNORMAL) Basic metabolic panel (11/05/2018 6:42 AM CDT) P athologist Signature Sodium 137 133 - 144 11/05/2018 [facility] mmol/L 7:16 AM [facility] Potassium 3.3 (L) 3.4 - 5.3 11/05/2018 [facility] mmol/L 7:16 AM [facility] Chloride 101 94 - 109 11/05/2018 [facility] mmol/L 7:16 AM [facility] Carbon Dioxide 30 20 - 32 11/05/2018 [facility] mmol/L 7:22 AM [facility] Anion Gap 6 3 - 14 11/05/2018 [facility] mmol/L 7:22 AM [facility] Glucose 84 70 - 99 11/05/2018 [facility] mg/dL 7:22 AM [facility] Urea Nitrogen 7 7 - 30 11/05/2018 [facility] mg/dL 7:22 AM [facility] Creatinine 0.79 0.52 - 11/05/2018 [facility] 1.04 mg/dL 7:22 AM [facility] GFR Estimate 77 >60 11/05/2018 [facility] mL/min/{1. 7:22 AM [facility] 73_m2} HOSPITAL Comment: Non GFR Calc Starting 02/16/2018, serum creatinine ba sed estimated GFR (eGFR) will be calculated using the Chronic Kidney Dise [facility] Epidemiology Collaboration (CKD-EPI) equation. GFR Estimate If 89 >60 mL/min/{1.73_m2} 11/05/2018 7: 22 AM [facility] Comment: GFR Calc Starting 02/16/2018, serum creatinine ba sed estimated GFR (eGFR) will be calculated using the Chronic Kidney Dise [facility] Epidemiology Collaboration (CKD-EPI) equation. Calcium 8.2 (L) 8.5 - 10.1 mg/dL 11/05/2018 7:[address] [facility] Specimen Anatomical Collection Method Collection Time Receive d Time (Source) Location / / Volume Laterality Blood specimen 11/05/2018 6:42 AM 019 6:43 (specimen) CDT AM CDT Chuck Cook MD LAB - BLOOD ORDERABLES Performing Organization Address City/State/ZIP Code Phon e Number [place] [address] [place] [address] [facility] [address] [place], [place] [address], [facility] [phone] [place] [address] [place] [address], [facility] Clostridium difficile toxin B PCR (11/04/2018 7:49 PM CDT) [facility] Method Time Signature Specimen Feces 11/04/2018 [facility] 7:49 PM CDT [facility] C Diff Toxin B Negative NEG^Negat 11/05/2018 [facility] sung 12:21 AM CDT [facility] Comment: Negative: Clostridium difficile target D NA sequences NOT detected, presumed negative for Clostridium difficile toxin B or the number of bacteria present may be below the limit of detection for the test. FDA approved assay performed using [employer] GeneXpert real-time PCR. A negative result does [...] Organization Address City/State/ZIP Code Phon e Number [address] [address] [facility] [address] [address], [facility] [phone] Blood culture (11/04/2018 4:35 PM CDT) [facility] Method Time Signature Specimen Blood Right INFECTIOUS [...] MICRO GENERAL ORDERABL ES Performing Organization Address City/[facility]/ZIP Code Phon e Number INFECTIOUS DISEASES [address] [place] [address] DIAGNOSTIC LABORATORY, [facility] INFECTIOUS DISEASES [address] [place] [address], [place] [facility] (ABNORMAL) Basic metabolic panel (11/04/2018 4:35 PM CDT) P athologist Signature Sodium 136 133 - 144 11/04/2018 [facility] mmol/L 7:48 PM [facility] Potassium 3.0 (L) 3.4 - 5.3 11/04/2018 [facility] mmol/L 7:48 PM [facility] Chloride 97 94 - 109 11/04/2018 [facility] mmol/L 7:48 PM [facility] Carbon Dioxide 31 20 - 32 11/04/2018 [facility] mmol/L 7:54 PM [facility] Anion Gap 8 3 - 14 11/04/2018 [facility] mmol/L 7:54 PM [facility] Glucose 74 70 - 99 11/04/2018 [facility] mg/dL 7:54 PM [facility] Urea Nitrogen 8 7 - 30 11/04/2018 [facility] mg/dL 7:54 PM [facility] Creatinine 0.81 0.52 - 11/04/2018 [facility] 1.04 mg/dL 7:54 PM [facility] GFR Estimate 75 >60 11/04/2018 [facility] mL/min/{1. 7:54 PM [facility] 73_m2} [facility] Comment: Non GFR Calc Starting 02/16/2018, serum creatinine ba sed estimated GFR (eGFR) will be calculated using the Chronic Kidney Dise [facility] Epidemiology Collaboration (CKD-EPI) equation. GFR Estimate If 87 >60 mL/min/{1.73_m2} 11/04/2018 7: 54 PM [facility] Comment: GFR Calc Starting 02/16/2018, serum creatinine ba sed estimated GFR (eGFR) will be calculated using the Chronic Kidney Dise [facility] Epidemiology Collaboration (CKD-EPI) equation. Calcium 9.0 8.5 - 10.1 mg/dL 11/04/2018 7:54 PM [facility] Specimen Anatomical Collection Method Collection Time Receive d Time (Source) Location / / Volume Laterality Blood specimen 11/04/2018 4:35 PM 019 7:31 (specimen) CDT PM CDT Mervin Morales MD LAB - BLOOD ORDERABLES Performing Organization Address City/State/ZIP Code Phon e Number [facility] [address] [place], [place] [address] [facility] [address] [place], [place] [address] [place] [address] (ABNORMAL) CBC with platelets differential (11/04/2018 4:35 PM CDT) [facility] gist Method Time Signature WBC 9.9 4.0 - 11/04/2018 [facility] 11.0 7:35 PM [facility] 10e9/L [facility] RBC Count 4.22 3.8 - 5.2 11/04/2018 [facility] 10e12/L 7:35 PM [facility] Hemoglobin 14.3 11.7 - 11/04/2018 [facility] 15.7 g/dL 7:35 PM [facility] Hematocrit 42.9 35.0 - 11/04/2018 [facility] 47.0 % 7:35 PM [facility] MCV 102 (H) 78 - 100 11/04/2018 [facility] fl 7:35 PM [facility] MCH 33.9 (H) 26.5 - 11/04/2018 [facility] 33.0 pg 7:35 [facility] MCHC 33.3 31.5 - 11/04/2018 [facility] 36.5 g/dL 7:35 PM [facility] RDW 13.3 10.0 - 11/04/2018 [facility] 15.0 % 7:35 PM [facility] Platelet Count 233 150 - 450 11/04/2018 [facility] 10e9/L 7:35 PM [facility] Diff Method Automated 11/04/2018 [facility] Method 7:35 PM [facility] % Neutrophils 69.4 % 11/04/2018 [facility] 7:35 PM [facility] % Lymphocytes 23.2 % 11/04/2018 [facility] 7:35 PM [facility] % Monocytes 5.9 % 11/04/2018 [facility] 7:35 PM [facility] % Eosinophils 0.8 % 11/04/2018 [facility] 7:35 PM [facility] % Basophils 0.4 % 11/04/2018 [facility] 7:35 PM [facility] % Immature 0.3 % 11/04/2018 [facility] Granulocytes 7:35 PM [facility] Nucleated RBCs 0 0 /100 11/04/2018 [facility] 7:35 PM [facility] Absolute 6.8 1.6 - 8.3 11/04/2018 [facility] Neutrophil 10e9/L 7:35 PM [facility] Absolute 2.3 0.8 - 5.3 11/04/2018 [facility] Lymphocytes 10e9/L 7:35 PM [facility] Absolute 0.6 0.0 - 1.3 11/04/2018 [facility] Monocytes 10e9/L 7:35 PM [facility] Absolute 0.1 0.0 - 0.7 11/04/2018 [facility] Eosinophils 10e9/L 7:35 PM [facility] Absolute 0.0 0.0 - 0.2 11/04/2018 [facility] Basophils 10e9/L 7:35 PM [facility] Abs Immature 0.0 0 - 0.4 11/04/2018 [facility] Granulocytes 10e9/L 7:35 PM [facility] Absolute 0.0 11/04/2018 [facility] Nucleated RBC 7:35 PM [facility] Specimen Anatomical Collection Method Collection Time Receive d Time (Source) Location / / Volume Laterality Blood specimen 11/04/2018 4:35 PM 019 7:31 (specimen) CDT [facility] Mervin Morales MD LAB - BLOOD ORDERABLES Performing Organization Address City/State/ZIP Code Phon e Number [place] [address] [phone] documented in this encounter Visit Diagnoses Diagnosis [...] mg, Intravenous, ONCE, Administer over 2-5 Minutes, [facility] 11/04/18 at 1959, For 1 dose, [...] capsule 250 mg 1031 (Given - Provider: Eliazbeth Chong RN)2017 (Given - Provider: Osiris Cuellar, [...] 12 HOURS PRN, jim sea, vomiting, Starting [facility] 11/04/18 at 2149, This is Step [...] Oral, EVERY 6 HOURS PRN, vomiting, Starting [facility] 11/04/18 at 2149
This is Step 2 of nausea and vomiting management. Give if nausea not resolved 15 minutes after giving ondansetron (ZOFRAN). If nausea not resolved in 15 minutes, go to Step 3 metoclopramide (REGLAN), if ordered.
Or prochlorperazine (COMPAZINE) Suppository 12.5 mgJump to med 12.5 mg, Rectal, EVERY 12 HOURS PRN, jim sea, vomiting, Starting [facility] 11/04/18 at 2149
This is Step 2 of nausea and vomiting management. Give if nausea not resolved 15 minutes after giving ondanset rei (ZOFRAN). If nausea not resolved in 15 minutes, go to Step 3 metoclopramide (REGLAN), if ordered.
documented in this encounter Care Teams Entry Processor Relationship Specialty Start Date End Date Idalmis Sloan PCP - General Family Practice 11/04/13 documented as of this encounter
--- OUTSIDE RECORDS SUMMARY | 2022-01-15 15:28 | XMS_ITS | Encounter Summary ---
:1950 Author Organization [place] Address [facility] [place] [address] Care Team Providers Name Role Phone Idalmis Sloan Primary Care Provider Encounter Details Date Type Department Care Team Description 11/12[facility]2015 [facility] Other postprocedural status(V45.89); Rehabilitation [address] Sprain of l eft rotator cuff capsule, subsequent encounter Services [place] [facility] [address] [place] [address] [address] [address] [place] [address] (Work) [phone] Social History Tobacco Use Types Packs/Day Years [...] abd), MMT: L ER=3-/5, flex=3-/5, Abd=3-/5, PROM: sood=947, joint creptation noted with painful movement, Phm=662, ER=45 ASSESSMENT/PLAN Updated problem list and treatment [...] Associated Diagnosis Comme nts [facility] NEUROMUSCULAR Routine 11/12/2015 3:40 PM Other postprocedu ral RE-EDUCATION CDT status(V45.89) Sprain of left rotator cuff capsule, subsequent encounter [facility] THERAPEUTIC Routine 11/12/2015 3:40 PM Other postprocedura l EXERCISES CDT status(V45.89) Sprain of left rotator cuff capsule, subsequent encounter documented in this encounter Visit Diagnoses Diagnosis Other postprocedural status(V45.89) Other postprocedural status Sprain of left rotator cuff capsule, sub sequent encounter documented in this encounter Care Teams Substation Operator Transforming Relationship Specialty Start Date End Date Idalmis Sloan PCP - General Family Practice 11/04/13 documented as of this encounter
--- OUTSIDE RECORDS SUMMARY | 2022-01-15 15:28 | XMS_ITS | Encounter Summary ---
:1950 Author Organization [place] Address [address] [facility] [place] [address] Care Team Providers Name Role Phone Idalmis Sloan Primary Care Provider Encounter Details Date Type Department Care Team Description 10/02/2015 Telephone [facility] [employer] Madelin Brown, RN [address] [place] [address] Social History Tobacco Use Types Packs/Day [...] on filedocumented in this encounter Care Teams Emotionally Impaired Teacher Relationship Specialty Start Date End Date Idalmis Sloan PCP - General Family Practice 11/04/13 documented as of this encounter
--- OUTSIDE RECORDS SUMMARY | 2022-01-15 15:28 | XMS_ITS | Encounter Summary ---
:1950 Author Organization [place] Address [address] [facility] [place] [address] Care Team Providers Name Role Phone Idalmis Sloan Primary Care Provider Reason for Visit Reason Comments Urgent Care Cough cough and sinus pressure, tr eated for bronchitis Encounter Details Date Type Department Care Team Description 04/05/2017 Office Visit [facility] Laith Oliver Acute maxillary Urgent Care Lacy Craig MD sinusitis, recurrence [address] not specified (Primary [facility], [place] [address] Dx) [id number] Social History Tobacco Use Types Packs/Day Years Used Date Smoking Tobacco: Never Smokeless Tobacco: Never Sex Assigned at Date Recorded Not on file documented as of this encounter Last Filed Vital Signs Vital Sign Reading Time Taken Comments Blood Pressure 136/78 04/05/2017 3:01 PM MAINFRAME ARCHITECT Pulse 76 04/05/2017 3:01 PM MAINFRAME ARCHITECT Temperature 36.9 ??C (98.5 ??F) 04/05/2017 3:01 PM MAINFRAME ARCHITECT Respiratory Rate 18 04/05/2017 3:01 PM MAINFRAME ARCHITECT Oxygen Saturation 96% 04/05/2017 3:01 PM MAINFRAME ARCHITECT Inhaled Oxygen Concentration - - Weight 65.8 kg (145 lb) 04/05/2017 3:01 PM MAINFRAME ARCHITECT Height - - Body Mass Index - [...] if getting worse . Laith Oliver MD FRAME ARCHITECT documented in this encounter Nursing Notes Ana [...] calculate BMI. Medication Reconciliation: incomplete [place] EVENT SALES REPRESENTATIVE FRAME ARCHITECT documented in this encounter Plan of Treatment Not on filedocumented as of this encounter Visit Diagnoses Diagnosis Acute maxillary sinusitis, recurrence no t specified - Primary documented in this encounter Care Teams Sparmaker Relationship Specialty Start Date End Date Idalmis Sloan PCP - General Family Practice 11/04/13 documented as of this encounter
--- OUTSIDE RECORDS SUMMARY | 2022-01-15 15:28 | XMS_ITS | Encounter Summary ---
:1950 Author Organization [place] Address [address] [place] [address] Care Team Providers Name Role Phone Idalmis Sloan Primary Care Provider Encounter Details Date Type Department Care Team Description 09/05/2015 Therapy Visit [facility] [place] Saeed, SHANAE Sprain of left rotator cuff capsule, sub sequent encounter (Primary Dx); Rehabilitation [address] Other postp rocedural status(V45.89) Services [place] [address] [place] [address] [address] [address] [place] [address] (Work) [phone] Social History Tobacco Use Types Packs/Day Years Used Date Smoking Tobacco: Never Assessed Sex Assigned at Date Recorded Not on file documented as of this encounter Plan of Treatment Not on filedocumented as of this encounter Procedures Procedure Name Priority Date/Time Associated Diagnosis Comme nts [facility] NEUROMUSCULAR Routine 09/05/2015 3:16 PM Sprain of left ro tator RE-EDUCATION CDT cuff capsule, subsequent encounter Other postprocedural status(V45.89) [facility] THERAPEUTIC Routine 09/05/2015 3:16 PM Sprain of left rota tor EXERCISES CDT cuff capsule, subsequent encounter Other postprocedural status(V45.89) documented in this encounter Visit Diagnoses Diagnosis Sprain of left rotator cuff capsule, sub sequent encounter - Primary Other postprocedural status(V45.89) Other postprocedural status documented in this encounter Care Teams Instructional Technology Coach Relationship Specialty Start Date End Date Idalmis Sloan PCP - General Family Practice 11/04/13 documented as of this encounter
--- OUTSIDE RECORDS SUMMARY | 2022-01-15 15:28 | XMS_ITS | Encounter Summary ---
:1950 Author Organization [place] Address [facility] [place] [address] Care Team Providers Name Role Phone Idalmis Sloan Primary Care Provider Reason for Visit KIMBER Physical Therapy (Routine) - Denied Specialty Diagnoses / Procedures Referred By Contact Refer red To Contact Physical Therapy Diagnoses >4 s/p L rot tiff / mehdi lorenzana @ ortho / BCBS 30 visits per year Mehdi Gaffney MD Judd, Laurie, PT Procedures EXTREMITY INITIAL ORTHOPAEDIC AND [id number] [place] [address] [facility] [address] [place] [phone] [place] [id number] Referral ID Status Reason Start Date Expiration Date Visits V isits Requested Authorized KIMBER/WC/PT/L Denied 06/11/2015 06/10/2016 14 0 SHLDR POST [id number] Encounter Details Date Type Department Care Team Description 08/16/2015 Therapy Visit M [facility] [place] Wheeler, PT Sprain of left rotator cuff capsule, sub sequent encounter (Primary Dx); Rehabilitation [address] MARYANA Other postp rocedural status(V45.89) Services [place] [address] [facility] [address] [place] [address] [address] [address] [place] [address] (Work) [phone] Social History Tobacco Use Types Packs/Day Years Used Date Smoking Tobacco: Never Assessed Sex Assigned at Date Recorded Not on file documented as of this encounter Plan of Treatment Not on filedocumented as of this encounter Procedures Procedure Name Priority Date/Time Associated Diagnosis Comme nts [facility] NEUROMUSCULAR Routine 08/16/2015 5:04 PM Sprain of left ro tator RE-EDUCATION CDT cuff capsule, subsequent encounter Other postprocedural status(V45.89) [facility] THERAPEUTIC Routine 08/16/2015 5:04 PM Sprain of left rota tor EXERCISES CDT cuff capsule, subsequent encounter Other postprocedural status(V45.89) documented in this encounter Visit Diagnoses Diagnosis Sprain of left rotator cuff capsule, sub sequent encounter - Primary Other postprocedural status(V45.89) Other postprocedural status documented in this encounter Care Teams Supervisor Plate Pasting Relationship Specialty Start Date End Date Idalmis Sloan PCP - General Family Practice 11/04/13 documented as of this encounter
--- OUTSIDE RECORDS SUMMARY | 2022-01-15 15:28 | XMS_ITS | Encounter Summary ---
:1950 Author Organization [place] Address [facility] [place] [address] Care Team Providers Name Role Phone Idalmis Sloan Primary Care Provider Reason for Visit KIMBER Physical Therapy (Routine) - Denied Specialty Diagnoses / Procedures Referred By Contact Refer red To Contact Physical Therapy Diagnoses >4 s/p L rot tiff / mehdi lorenzana @ ortho / BCBS 30 visits per year Mehdi Gaffney MD Judd, Laurie, PT Procedures EX[facility]OP[facility] AND [id number] [place] [address] [facility] [address] [place] [phone] [place] [phone] Referral ID Status Reason Start Date Expiration Date Visits V isits Requested Authorized KIMBER/WC/PT/L Denied 06/11/2015 06/10/2016 14 0 SHLDR POST [id number] Encounter Details Date Type Department Care Team Description 08/01/2015 Therapy Visit M [facility] [place], PT Sprain of left rotator cuff capsule, sub sequent encounter (Primary Dx); Rehabilitation [address] MARYANA Other postp rocedural status(V45.89) Services [place] [address] [facility] [address] [place] [address] [address] [address] [place] [address] (Work) [phone] Social History Tobacco Use Types Packs/Day Years Used Date Smoking Tobacco: Never Assessed Sex Assigned at Date Recorded Not on file documented as of this encounter Plan of Treatment Not on filedocumented as of this encounter Procedures Procedure Name Priority Date/Time Associated Diagnosis Comme nts [facility] NEUROMUSCULAR Routine 08/02/2015 7:18 AM Sprain of left ro tator RE-EDUCATION CDT cuff capsule, subsequent encounter Other postprocedural status(V45.89) [facility] THERAPEUTIC Routine 08/02/2015 7:18 AM Sprain of left rota tor EXERCISES CDT cuff capsule, subsequent encounter Other postprocedural status(V45.89) documented in this encounter Visit Diagnoses Diagnosis Sprain of left rotator cuff capsule, sub sequent encounter - Primary Other postprocedural status(V45.89) Other postprocedural status documented in this encounter Care Teams Physical Plant Manager Relationship Specialty Start Date End Date Idalmis Sloan PCP - General Family Practice 11/04/13 documented as of this encounter
--- OUTSIDE RECORDS SUMMARY | 2022-01-15 15:28 | XMS_ITS | Encounter Summary ---
:1950 Author Organization [place] Address [facility] [place] [address] Care Team Providers Name Role Phone Idalmis Sloan Primary Care Provider Reason for Visit KIMBER Physical Therapy (Routine) - Closed Specialty Diagnoses / Procedures Referred By Contact Refer red To Contact Physical Therapy Diagnoses >4, Back / [facility] @ [facility] Pain / BCBS Mercy Vasquez, MICROBIOLOGY LAB MANAGER Daniel Shi, PT Procedures SPINE INITIAL [facility] [address] [place] [address] [place] [address] [place] [address] Referral ID Status Reason Start Date Expiration Date Visits Requ ested Visits Authorized [id number] Closed 07/22/2017 03/01/2018 20 18 Encounter Details Date Type Department Care Team Description 02/25/2018 Therapy Visit [facility] Jensen Hernandez, PT Hip pain, left Rehabilitation Services [address] MARYANA NELSON (Primary Dx) [id number] [place] [id number] [place] [address] [address] [place] [address] (Work) [phone] Social History Tobacco Use Types Packs/Day Years Used Date Smoking Tobacco: Never Smokeless Tobacco: Never Sex Assigned at Date Recorded Not on file documented as of this encounter Progress Notes Jensen Hernandez, PT - 02/25/2018 4:00 PM CST [facility] Initial Evaluation Subjective: History of left hip pain for years with increased symptoms 1 month ago secondary to OA. Pt referred by MD for physical therapy on 02-05-18 The history is provided by the patient. No speech language pathologist assistant was used. Krys Mosher is a 67 [...] Right: Min loss+ Rotation: Left: Right: Side [place]: Left: Right: Strength: weak lower abdominals and [...] and time spent performing 1:1 timed codes. ARTS MODEL documented in this encounter Plan of Treatment Not on filedocumented as of this encounter Procedures Procedure Name Priority Date/Time Associated Diagnosis Comme [facility] THERAPEUTIC Routine 02/25/2018 5:05 PM FINE ARTS MODEL Hip pain, left EXERCISES documented in this encounter Visit Diagnoses Diagnosis Hip pain, left - Primary Pain in joint, pelvic region and thigh documented in this encounter Care Teams Comic Book Designer Relationship Specialty Start Date End Date Idalmis Sloan PCP - General Family Practice 11/04/13 documented as of this encounter
--- OUTSIDE RECORDS SUMMARY | 2022-01-15 15:28 | XMS_ITS | Encounter Summary ---
:1950 Author Organization [place] Address [address] [place] [address] Care Team Providers Name Role Phone Idalmis [...] on filedocumented in this encounter Care Teams Tree Trimming Supervisor Relationship Specialty Start Date End Date Idalmis Sloan PCP - General Family Practice 11/04/13 documented as of this encounter
--- OUTSIDE RECORDS SUMMARY | 2022-01-15 15:28 | XMS_ITS | Encounter Summary ---
:1950 Author Organization [place] Address [facility] [place] [address] Care Team Providers Name Role Phone Idalmis Sloan Primary Care Provider Reason for Visit KIMBER Physical Therapy (Routine) - Denied Specialty Diagnoses / Procedures Referred By Contact Refer red To Contact Physical Therapy Diagnoses >4 s/p L rot tiff / mehdi lorenzana @ ortho / BCBS 30 visits per year Mehdi Gaffney MD Judd, Laurie, PT Procedures [facility]IAL [facility]OP[facility]IC AND [id number] [place] [address] [facility] [address] [place] [phone] [place] [phone] Referral ID Status Reason Start Date Expiration Date Visits V isits Requested Authorized KIMBER/WC/PT/L Denied 06/11/2015 06/10/2016 14 0 SHLDR POST [id number] Encounter Details Date Type Department Care Team Description 07/03/2015 Therapy Visit [facility] [place], PT Sprain of left rotator cuff capsule, sub sequent encounter (Primary Dx); Rehabilitation [address] MARYANA Other postp rocedural status(V45.89) Services [place] [address] [facility] [address] [place] [address] [address] [address] [place] [address] (Work) [phone] Social History Tobacco Use Types Packs/Day Years Used Date Smoking Tobacco: Never Assessed Sex Assigned at Date Recorded Not on file documented as of this encounter Plan of Treatment Not on filedocumented as of this encounter Procedures Procedure Name Priority Date/Time Associated Diagnosis Comme nts [facility] NEUROMUSCULAR Routine 07/04/2015 2:00 PM Sprain of left ro tator RE-EDUCATION CDT cuff capsule, subsequent encounter Other postprocedural status(V45.89) [facility] THERAPEUTIC Routine 07/04/2015 2:00 PM Sprain of left rota tor EXERCISES CDT cuff capsule, subsequent encounter Other postprocedural status(V45.89) documented in this encounter Visit Diagnoses Diagnosis Sprain of left rotator cuff capsule, sub sequent encounter - Primary Other postprocedural status(V45.89) Other postprocedural status documented in this encounter Care Teams Diabetes Trainer Relationship Specialty Start Date End Date Idalmis Sloan PCP - General Family Practice 11/04/13 documented as of this encounter
--- OUTSIDE RECORDS SUMMARY | 2022-01-15 15:28 | XMS_ITS | Encounter Summary ---
:1950 Author Organization [place] Address [address] [facility] [place] [address] Care Team Providers Name Role Phone Idalmis Sloan Primary Care Provider Reason for Visit KIMBER Physical Therapy (Routine) - Closed Specialty Diagnoses / Procedures Referred By Contact Refer red To Contact Bi Analyst Diagnoses >4 Le[place]t side hip pain, LBP / Idalmis Sloan MD@ [place] / [facility] /referral exists 20V thru 03.01.18(MSG) Idalmis Sloan Linda, PTA / Physical Therapy Procedures SPINE FOLLOW UP [facility] [address] [place] [address] Referral ID Status Reason Start Date Expiration Date Visits Requ ested Visits Authorized [id number] Closed 03/16/2018 03/01/2019 20 18 Encounter Details Date Type Department Care Team Description 03/16/2018 Therapy Visit [facility] [place], Hip josefina n, left Rehabilitation Services [facility] [address] [facility] [address] [place] [address] Social History Tobacco Use Types Packs/Day Years Used Date Smoking Tobacco: Never Smokeless Tobacco: Never Sex Assigned at Date Recorded Not on file documented as of this encounter Plan of Treatment Not on filedocumented as of this encounter Procedures Procedure Name Priority Date/Time Associated Diagnosis Comme [facility] THERAPEUTIC Routine 03/17/2018 7:48 AM COMMERCIAL LAWN SPECIALIST Hip pain, left EXERCISES documented in this encounter Visit Diagnoses Diagnosis Hip pain, left Pain in joint, pelvic region and thigh documented in this encounter Care Teams Beverage Manager Relationship Specialty Start Date End Date Idalmis Sloan PCP - General Family Practice 11/04/13 documented as of this encounter
--- OUTSIDE RECORDS SUMMARY | 2022-01-15 15:28 | XMS_ITS | Encounter Summary ---
:1950 Author Organization [place] Address [facility] [place] [address] Care Team Providers Name Role Phone Idalmis Sloan Primary Care Provider Reason for Visit KIMBER Physical Therapy (Routine) - Denied Specialty Diagnoses / Procedures Referred By Contact Refer red To Contact Physical Therapy Diagnoses >4 s/p L rot tiff / mehdi lorenzana @ ortho / BCBS 30 visits per year Mehdi Gaffney MD Judd, Laurie, PT Procedures EXTREM[facility] INITIAL ORTHOPAEDIC AND [id number] [place] [address] [facility] [address] [place] [phone] [place] [id number] Referral ID Status Reason Start Date Expiration Date Visits V isits Requested Authorized KIMBER/WC/PT/L Denied 06/11/2015 06/10/2016 14 0 SHLDR POST [id number] Encounter Details Date Type Department Care Team Description 08/09[facility] Sprain of left rotator cuff capsule, sub sequent encounter (Primary Dx); Rehabilitation [address] MARYANA Other postp rocedural status(V45.89) Services [place] [address] [facility] [address] [place] [address] [address] [address] [place] [address] (Work) [phone] Social History Tobacco Use Types Packs/Day Years Used Date Smoking Tobacco: Never Assessed Sex Assigned at Date Recorded Not on file documented as of this encounter Plan of Treatment Not on filedocumented as of this encounter Procedures Procedure Name Priority Date/Time Associated Diagnosis Comme nts [facility] NEUROMUSCULAR Routine 08/10/2015 10:23 AM Sprain of left r otator RE-EDUCATION CDT cuff capsule, subsequent encounter Other postprocedural status(V45.89) [facility] THERAPEUTIC Routine 08/10/2015 10:23 AM Sprain of left rot ator EXERCISES CDT cuff capsule, subsequent encounter Other postprocedural status(V45.89) documented in this encounter Visit Diagnoses Diagnosis Sprain of left rotator cuff capsule, sub sequent encounter - Primary Other postprocedural status(V45.89) Other postprocedural status documented in this encounter Care Teams Metal Pourer Relationship Specialty Start Date End Date Idalmis Sloan PCP - General Family Practice 11/04/13 documented as of this encounter
--- OUTSIDE RECORDS SUMMARY | 2022-01-15 15:28 | XMS_ITS | Encounter Summary ---
:1950 Author Organization [place] Address [address] [place] [address] Care Team Providers Name Role Phone Idalmis Sloan Primary Care Provider Encounter Details Date Type Department Care Team Description 11/16/2015 Therapy Visit [facility] [place] Saeed, PT Cervical radiculitis (Primary Dx); Rehabilitation [address] [place] Sprain of l eft rotator cuff capsule, subsequent encounter; Services [place] [facility] 300 Other postprocedural status(V45.89) [facility] [place] [address] [address] [address] [place] [address] (Work) [phone] Social History Tobacco Use Types Packs/Day Years Used Date Smoking Tobacco: Never Assessed Sex Assigned at Date Recorded Not on file documented as of this encounter Plan of Treatment Not on filedocumented as of this encounter Procedures Procedure Name Priority Date/Time Associated Diagnosis Comme [facility] THERAPEUTIC Routine 11/19/2015 7:32 AM Cervical radi culitis EXERCISES CDT Sprain of left rotator cuff capsule, subsequent encounter Other postprocedural status(V45.89) documented in this encounter Visit Diagnoses Diagnosis Cervical radiculitis - Primary Brachial neuritis or radiculitis nos Sprain of left rotator cuff capsule, sub sequent encounter Other postprocedural status(V45.89) Other postprocedural status documented in this encounter Care Teams Manager Mall Relationship Specialty Start Date End Date Idalmis Sloan PCP - General Family Practice 11/04/13 documented as of this encounter
--- OUTSIDE RECORDS SUMMARY | 2022-01-15 15:28 | XMS_ITS | Encounter Summary ---
:1950 Author Organization [place] Address [address] [place] [address]. [place] [address] Care Team Providers Name Role Phone Idalmis Sloan Primary Care Provider Reason for Visit KIMBER Physical Therapy (Routine) - Denied Specialty Diagnoses / Procedures Referred By Contact Refer red To Contact Physical Therapy Diagnoses >4 s/p L rot cuff / mehdi lorenzana @ ortho / BCBS 30 visits per year Mehdi Gaffney MD Judd, Laurie, PT Procedures EXTREMITY INITIAL ORTHOPAEDIC AND [id number] [place] [address] [facility] [address] [place] [phone] [place] [phone] Referral ID Status Reason Start Date Expiration Date Visits V isits Requested Authorized KIMBER/WC/PT/L Denied 06/11/2015 06/10/2016 14 0 SHLDR POST [id number] Encounter Details Date Type Department Care Team Description 08/03/2015 Therapy Visit [facility] Artie, Sprain of left rotator cuff capsule, subsequent encounter (Primary Dx); Rehabilitation Services [place] Melissa postprocedural status(V45.89) [facility] [address] [facility] [address] [place] [address] Social History Tobacco Use Types [...] postprocedural status(V45.89) [facility] NEUROMUSCULAR Routine 08/03/2015 10:32 AM Sprain of left r otator RE-EDUCATION CDT cuff capsule, subsequent encounter Other postprocedural status(V45.89) [facility] THERAPEUTIC Routine 08/03/2015 10:32 AM Sprain of left rot ator EXERCISES CDT cuff capsule, subsequent encounter Other postprocedural status(V45.89) documented in this encounter Visit Diagnoses Diagnosis Sprain of left rotator cuff capsule, sub sequent encounter - Primary Other postprocedural status(V45.89) Other postprocedural status documented in this encounter Care Teams Mixed Animal Veterinarian Relationship Specialty Start Date End Date Idalmis Sloan PCP - General Family Practice 11/04/13 documented as of this encounter
--- OUTSIDE RECORDS SUMMARY | 2022-01-15 15:28 | XMS_ITS | Encounter Summary ---
:1950 Author Organization [place] Address [facility] [place] [address] Care Team Providers Name Role Phone Idalmis Sloan Primary Care Provider Reason for Visit KIMBER Physical Therapy (Routine) - Denied Specialty Diagnoses / Procedures Referred By Contact Refer red To Contact Physical Therapy Diagnoses >4 s/p L rot tiff / mehdi lorenzana @ ortho / BCBS 30 visits per year Mehdi Gaffney MD Judd, Laurie, PT Procedures EXTREMITY INITIAL ORTHOPAEDIC AND [id number] [place] [address] [facility] [address] [place] [phone] [place] [id number] Referral ID Status Reason Start Date Expiration Date Visits V isits Requested Authorized KIMBER/WC/PT/L Denied 06/11/2015 06/10/2016 14 0 SHLDR POST [id number] Encounter Details Date Type Department Care Team Description 08/21/2015 Therapy Visit M [facility] [place], PT Sprain of left rotator cuff capsule, sub sequent encounter (Primary Dx); Rehabilitation [address] MARYANA Other postp rocedural status(V45.89) Services [place] [address] [facility] [address] [place] [address] [place] [address] [address] [address] [place] [address] (Work) [phone] Social History Tobacco Use Types Packs/Day Years Used Date Smoking Tobacco: Never Assessed Sex Assigned at Date Recorded Not on file documented as of this encounter Plan of Treatment Not on filedocumented as of this encounter Procedures Procedure Name Priority Date/Time Associated Diagnosis Comme nts [facility] NEUROMUSCULAR Routine 08/21/2015 3:47 PM Sprain of left ro tator RE-EDUCATION CDT cuff capsule, subsequent encounter Other postprocedural status(V45.89) [facility] THERAPEUTIC Routine 08/21/2015 3:47 PM Sprain of left rota tor EXERCISES CDT cuff capsule, subsequent encounter Other postprocedural status(V45.89) documented in this encounter Visit Diagnoses Diagnosis Sprain of left rotator cuff capsule, sub sequent encounter - Primary Other postprocedural status(V45.89) Other postprocedural status documented in this encounter Care Teams Palliative Nurse Relationship Specialty Start Date End Date Idalmis Sloan PCP - General Family Practice 11/04/13 documented as of this encounter
--- OUTSIDE RECORDS SUMMARY | 2022-01-15 15:28 | XMS_ITS | Encounter Summary ---
:1950 Author Organization [place] Address [facility] [place] [address] Care Team Providers Name Role Phone Idalmis Sloan Primary Care Provider Encounter Details Date Type Department Care Team Description 10/02/2015 Therapy Visit [facility] [place], PT Cervical radiculitis Rehabilitation Services [address] [place] (Primary Dx) [address] [place] [address] [address] [place] [address] (Work) [phone] Social History Tobacco Use Types Packs/Day Years [...] extension) C8 (thumb extension) T1 (finger add/abd) Corsets Salesperson Strength (lb) Sensory Deficit, Reflexes, Dural Signs: [...] for this information) Short term and intermediate card tender goals: (See Goal Flow Sheet for this [...] Name Priority Date/Time Associated Diagnosis Comme nts [facility] MANUAL THER Routine 10/02/2015 4:55 PM CDT Cervical radicu litis TECH,1+REGIONS,EA 15 MIN [facility] THERAPEUTIC Routine 10/02/2015 4:55 PM CDT Cervical radicu litis EXERCISES documented in this encounter Visit Diagnoses Diagnosis Cervical radiculitis - Primary Brachial neuritis or radiculitis nos documented in this encounter Care Teams Zone Supervisor Firearms Relationship Specialty Start Date End Date Idalmis Sloan PCP - General Family Practice 11/04/13 documented as of this encounter
--- OUTSIDE RECORDS SUMMARY | 2022-01-15 15:29 | XMS_ITS | Encounter Summary ---
:1950 Author Organization [place] Address Counts include 234 beds at the [facility] [place] [address] Care Team Providers Name Role Phone Unavailable Primary Care Provider Unavailable Encounter Details Date Type Department Care Team Description 08/23/2010 Historic Notes INTERFACED REPORT Israel Schwab RN [facility] [address] [place], [place] [address] (Wo rk) Social History [...] been Management: getting the 50mg dose) Dilaudid ELECTRONIC CONSOLE DISPLAY OPERATOR 0.1-0.2 Q 6 min CR 0.1-0.2 [...] and coordination of care Signatures ISRAEL SCHWAB (JBOSS DEVELOPER)[Signed 14:10] Authored: Interval History/Chief Complaint, Review of Systems, Physical Exam, Vital Signs/Labs/Imaging/Culture Review, Pain Score and Medications, Assessment and Plan documented in this encounter Plan of Treatment Not on filedocumented as of this encounter Visit Diagnoses Not on filedocumented in this encounter
--- OUTSIDE RECORDS SUMMARY | 2022-01-15 15:29 | XMS_ITS | Encounter Summary ---
:1950 Author Organization [place] Address [facility] [place] [address] Care Team Providers Name Role Phone Idalmis Sloan Primary Care Provider Encounter Details Date Type Department Care Team Description 11/15/2014 Therapy Visit [facility] [place] Fidelia oulder pain Rehabilitation Services MANAGER VEHICLE (Apoorva womack Dx) [facility] [address] [facility] [address] [place] [address] Social History Tobacco Use Types [...] region documented in this encounter Care Teams Machine Buffer Relationship Specialty Start Date End Date Idalmis Sloan PCP - General Family Practice 11/04/13 documented as of this encounter
--- OUTSIDE RECORDS SUMMARY | 2022-01-15 15:29 | XMS_ITS | Encounter Summary ---
:1950 Author Organization [place] Address [facility] [place] [address] Care Team Providers Name Role Phone Idalmis Sloan Primary Care Provider Encounter Details Date Type Department Care Team Description 08/24/2014 Therapy Visit [facility] Belén Alva, [facility] low back pain Rehabilitation Services PEDIATRIC NEUROLOGIST with right-sided [facility] Center [address] [facility] [address] [place] [address] Social History Tobacco Use Types Packs/Day Years Used Date Smoking Tobacco: Never Assessed Sex Assigned at Date Recorded Not on file documented as of this encounter Progress Notes Belén Alva, PEDIATRIC NEUROLOGIST - 09/20/2014 12:54 PM CDT Subjective: HPI [...] Primary documented in this encounter Care Teams Auto Crane Driver Relationship Specialty Start Date End Date Idalmis Sloan PCP - General Family Practice 11/04/13 documented as of this encounter
--- OUTSIDE RECORDS SUMMARY | 2022-01-15 15:29 | XMS_ITS | Encounter Summary ---
:1950 Author Organization [place] Address [address] [place] [address] Care Team Providers Name Role Phone Shanta Sloan Primary Care Provider Encounter Details Date Type Department Care Team Description 11/22/2014 Therapy Visit [facility] Belén Alva, Fidelia dontrell pain Rehabilitation Services ORDER TRACER (Apoorva shanta Dx) [facility] [address] [facility] [facility] [address] [place] [address] Social History Tobacco Use Types [...] time spent performing 1:1 timed codes. T METAL OPERATOR documented in this encounter Miscellaneous Notes Addendum Note - Micki Chnag, PT - 01/30/2015 3:46 PM SHEET METAL OPERATOR Addended by: MICKI CHANG on: 01/30/2015 03:46 PM Modules accepted: Orders T METAL OPERATOR documented in this encounter Plan of [...] region documented in this encounter Care Teams Melon Packer Relationship Specialty Start Date End Date Shanta Sloan PCP - General Family Practice 11/04/13 documented as of this encounter
--- OUTSIDE RECORDS SUMMARY | 2022-01-15 15:29 | XMS_ITS | Encounter Summary ---
:1950 Author Organization [place] Address [facility] [place] [address] Care Team Providers Name Role Phone Unavailable Primary Care Provider Unavailable Encounter Details Date Type Department Care Team Description 08/25/2010 Historic Notes INTERFACED REPORT Interface, Transcript onMD Social History Tobacco Use Types Packs/Day Years Used Date Smoking Tobacco: Never Assessed Sex Assigned at Date Recorded Not on file documented as of this encounter Progress Notes Interface, Radial Saw Operator - 12/02/2010 7:33 PM CDT Discharge Summary - Reason for Discharge Discharge from facility - Progress toward Goals partially met achieving short term goals/radiologist physician goals - Barriers to achieving Limited tolerance [...]
--- OUTSIDE RECORDS SUMMARY | 2022-01-15 15:29 | XMS_ITS | Encounter Summary ---
:1950 Author Organization [place] Address [address] [place] [address] Care Team Providers Name Role Phone NathaliaIdalmisVijaya Primary Care Provider Encounter Details Date Type Department Care Team Description 11/13/2013 Telephone [facility] Nurse Idalmis Sloan Advisors [facility] [address] [facility] [address] [place] [address] [place] [address] [phone] (Wo rk) Social History Tobacco Use Types [...] better.I know an abx would help.Who is personnel associate? Advised to be seen.Page sent to MD per pt.Md advised to be seen in am. Pt stated she will go to the [facility]. # [phone] Triage Note: Guideline Title: Cough - Adult [...] air. Be sure to clean according to cable installation manager's instructions. Limit activities and increase periods of [...] on filedocumented in this encounter Care Teams Manager Molecular Relationship Specialty Start Date End Date Idalmis Sloan PCP - General Family Practice 11/04/13 documented as of this encounter
--- OUTSIDE RECORDS SUMMARY | 2022-01-15 15:29 | XMS_ITS | Encounter Summary ---
:1950 Author Organization [place] Address [facility] [place] [address] Care Team Providers Name Role Phone Unavailable Primary Care Provider Unavailable Encounter Details Date Type Department Care Team Description 08/23/2010 Historic Notes INTERFACED REPORT Interface, Transcript on, Social History Tobacco Use Types Packs/Day Years Used Date Smoking Tobacco: Never Assessed Sex Assigned at Date Recorded Not on file documented as of this encounter Progress Notes Interface, Surgical Asst - 12/02/2010 7:36 PM CDT General Information [...] Level of moderate assist (50% patients effort) [place]: - Physical 1 person assist Assist/Nonphysical Assist: Bed Mobility: Sit to Supine - Level of moderate assist (50% patients effort) [place]: - Physical 1 person assist Assist/Nonphysical Assist: Bed Mobility: Supine to Sit - Level of moderate assist (50% patients effort) [place]: - Physical 1 person assist Assist/Nonphysical Assist: Bed Mobility Analysis - Impairments pain; post surgical precautions; decreased Contributing to strength Impaired Bed Mobility: Transfer: Sit to Stand - Level of minimum assist (75% patients effort) [place]: - Physical 1 person assist Assist/Nonphysical Assist: Transfer: Stand to Sit - Level of minimum assist (75% patients effort) [place]: - Physical 1 person assist Assist/Nonphysical Assist: Transfer: Sit/Stand Safety Analysis - Impairments pain; post surgical precautions; decreased Contributing to strength Impaired Transfers: Lower Body Dressing - Level of maximum assist (25% patients effort) [place]: - Physical 1 person assist Assist/Nonphysical Assist: [...] therapy goals): - Demonstrates need for PT; SUPERINTENDENT BUILDING referral to another service: - Predicted Duration of 3-4 days Therapy: - Predicted Frequency daily of Therapy: - Discharge Rehabilitation facility; TCU versus home with Destination: assist pending progress - Anticipated Equipment Gang Investigator; Dressing equipment at Discharge: - Risks and [...]
--- OUTSIDE RECORDS SUMMARY | 2022-01-15 15:29 | XMS_ITS | Encounter Summary ---
:1950 Author Organization [place] Address [address] [place] [address] Care Team Providers Name Role Phone Unavailable Primary Care Provider Unavailable Encounter Details Date Type Department Care Team Description 08/26/2010 Historic Notes INTERFACED REPORT Interface, Transcript MD colby Social History Tobacco Use Types Packs/Day Years Used Date Smoking Tobacco: Never Assessed Sex Assigned at Date Recorded Not on file documented as of this encounter Progress Notes Interface, Spare Hand Carding - 12/02/2010 7:32 PM CDT Discharge Summary [...]
--- OUTSIDE RECORDS SUMMARY | 2022-01-15 15:29 | XMS_ITS | Encounter Summary ---
:1950 Author Organization [place] Address [address] [facility] [place] [address] Care Team Providers Name Role Phone Idalmis Sloan Primary Care Provider Encounter Details Date Type Department Care Team Description 07/20/2014 Therapy Visit [facility] Cherelle Santana Midli ne low back Rehabilitation Services PT pain with [place] [facility] right- sided sciatica Care Center MEDICINE (Primary Dx) [address] [place] [address] [place], [place] [phone] [address] Social History Tobacco Use Types Packs/Day [...] pain throughout movement Rotation: Left: Right: Side [place]: Left: Right: Strength: Abdominals 1/5 Lumbar Myotomes: [...] Priority Date/Time Associated Diagnosis Comme nts [facility] THERAPEUTIC Routine 07/25/2014 12:32 PM Midline Low Back P ain ACTIVITIES CDT With Right-Sided Sciatica [facility] THERAPEUTIC Routine 07/25/2014 12:32 PM Midline low back p ain EXERCISES CDT with right-sided sciatica documented in this encounter Visit Diagnoses Diagnosis Midline low back pain with right-sided s ciatica - Primary documented in this encounter Care Teams Lockstitch Sleeve Setter Relationship Specialty Start Date End Date Idalmis Sloan PCP - General Family Practice 11/04/13 documented as of this encounter
--- OUTSIDE RECORDS SUMMARY | 2022-01-15 15:29 | XMS_ITS | Encounter Summary ---
:1950 Author Organization [place] Address [address] [facility] [address] Care Team Providers Name Role Phone Idalmis Sloan Primary Care Provider Encounter Details Date Type Department Care Team Description 06/03/2015 Telephone [facility] Nurse Sabiha Shelton , RN Advisors [address] [employer] [place] [address] Social History Tobacco Use Types Packs/Day [...] bone; or pure bloody urine ? NO [place] something pass with urination ? NO Unbearable [...] on filedocumented in this encounter Care Teams Ballet Soloist Relationship Specialty Start Date End Date Idalmis Sloan PCP - General Family Practice 11/04/13 documented as of this encounter
--- OUTSIDE RECORDS SUMMARY | 2022-01-15 15:29 | XMS_ITS | Encounter Summary ---
:1950 Author Organization [place] Address [address] [place], [place] [address] Care Team Providers Name Role Phone Unavailable [...] Waleska Alcaraz - 08/02/2012 4:30 PM CDT [facility] Triage Call Report Patient Name: Krys Mosher Call Date & Time: 07/31/2012 2:40:00PM Patient PCP Name: Idlamis Sloan Patient Address: [facility] [place] [address] Patient Date of : 1950 Age: 62 yr. Patient Gender: Female Product Mgr Name: Viji Aguilar Presenting Problem: Call FNA [...] Dr Severino Catalan to Pt 's phone [phone]. Allergies Cipro, augmentin , sulfa and Lorazepam. [facility] phone [phone]. Triage Note: Guideline Title: Infection On Antibiotic [...]
--- OUTSIDE RECORDS SUMMARY | 2022-01-15 15:29 | XMS_ITS | Encounter Summary ---
:1950 Author Organization [place] Address [address] [facility] [place] [address] Care Team Providers Name Role Phone Unavailable Primary Care Provider Unavailable Encounter Details Date Type Department Care Team Description 08/25/2010 Discharge Summary [facility] Krysta, (Fermentologist) [facility] VIELKA Isabel Results [facility] [address] [id number] Social History Tobacco Use Types Packs/Day Years [...] PA-C MT: [id number] Name: KRYS MOSHER Account: [id number] : 1950 Admit Date: Discharge Date: 08/25/2010 Document: [id number] documented in this encounter Plan of Treatment Not on filedocumented as of this encounter Visit Diagnoses Not on filedocumented in this encounter
--- OUTSIDE RECORDS SUMMARY | 2022-01-15 15:29 | XMS_ITS | Encounter Summary ---
:1950 Author Organization [place] Address [facility] [place] [address] Care Team Providers Name Role Phone Idalmis Sloan Primary Care Provider Encounter Details Date Type Department Care Team Description 08/01/2014 Therapy Visit [facility] Belén Alva, Midline low back pain Rehabilitation Services BUSINESS REPORTING DEVELOPER with right-sided [facility] sc iatica (Primary Dx) Center [address] [facility] [address] [place] [address] Social History Tobacco Use Types [...] Primary documented in this encounter Care Teams Professional Services Manager Relationship Specialty Start Date End Date Idalmis Sloan PCP - General Family Practice 11/04/13 documented as of this encounter
--- OUTSIDE RECORDS SUMMARY | 2022-01-15 15:29 | XMS_ITS | Encounter Summary ---
:1950 Author Organization [place] Address [facility] [place] [address] Care Team Providers Name Role Phone Idalmis Sloan Primary Care Provider Encounter Details Date Type Department Care Team Description 08/10/2014 Therapy Visit [facility] Belén Alva, Midline low back pain Rehabilitation Services NURSING HOME MANAGER with right-sided [facility] sc iatica (Primary Dx) Center [address] [place] [address] Social History Tobacco Use Types [...] Primary documented in this encounter Care Teams Inbound Sales Representative Relationship Specialty Start Date End Date Idalmis Sloan PCP - General Family Practice 11/04/13 documented as of this encounter
--- OUTSIDE RECORDS SUMMARY | 2022-01-15 15:29 | XMS_ITS | Encounter Summary ---
:1950 Author Organization [place] Address [facility] [place] [address] Care Team Providers Name Role Phone Idalmis Sloan Primary Care Provider Encounter Details Date Type Department Care Team Description 07/25/2014 Therapy Visit [facility] Belén Alva, Midline low back pain Rehabilitation Services BRAKE LINER with right-sided [facility] sc iatica (Primary Dx) Center [address] [facility] [address] [place] [address] Social History Tobacco Use Types [...] Primary documented in this encounter Care Teams Patient Registrar Relationship Specialty Start Date End Date Idalmis Sloan PCP - General Family Practice 11/04/13 documented as of this encounter
--- OUTSIDE RECORDS SUMMARY | 2022-01-15 15:29 | XMS_ITS | Encounter Summary ---
:1950 Author Organization [place] Address [facility] [place] [address] Care Team Providers Name Role Phone Idalmis Sloan Primary Care Provider Reason for Visit [facility] Physical Therapy (Routine) - Denied Specialty Diagnoses / Procedures Referred By Contact Refer red To Contact Physical Therapy Diagnoses >4 s/p L rot tiff / mehdi lorenzana @ ortho / BCBS 30 visits per year Mehdi Gaffney MD Judd, Laurie, PT Procedures [facility] AND [id number] [place] [address] [address] [facility] [address] [place] [address] Referral ID Status Reason Start Date Expiration Date Visits V isits Requested Authorized KIMBER/WC/PT/L Denied 06/11/2015 06/10/2016 14 0 SHLDR POST [id number] Encounter Details Date Type Department Care Team Description 06/14/2015 Therapy Visit [facility] Artie, Sprain of left rotator cuff capsule, subsequent encounter (Primary Dx); Rehabilitation Services CORRINA Melissa postprocedural status(V45.89) [facility] [address] [facility] [address] [place] [address] Social History Tobacco Use Types [...] [facility] HOT OR COLD PACKS Routine 06/15/2015 6:45 AM Sprain of lef t rotator THERAPY CDT cuff capsule, subsequent encounter Other postprocedural status(V45.89) documented in this encounter Visit Diagnoses Diagnosis Sprain of left rotator cuff capsule, sub sequent encounter - Primary Other postprocedural status(V45.89) Other postprocedural status documented in this encounter Care Teams Billing Coordinator Relationship Specialty Start Date End Date Idalmis Sloan PCP - General Family Practice 11/04/13 documented as of this encounter
--- OUTSIDE RECORDS SUMMARY | 2022-01-15 15:29 | XMS_ITS | Encounter Summary ---
:1950 Author Organization [place] Address [address] [facility] [place] [address] Care Team Providers Name Role Phone Idalmis Sloan Primary Care Provider Encounter Details Date Type Department Care Team Description 11/09/2014 Therapy Visit [facility] Fidelia Chang pain Rehabilitation Services SHANAE Sweet (Primary Dx) [place] [facility] [address] [address] [facility] [address] [place] [id number] Social History Tobacco Use Types Packs/Day Years [...] from spouse. BETTER with rest, methocarbanol. 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 Objective: System Shoulder Evaluation: ROM: AROM: Flexion: [...] Sheet for this information) Short term and care home goals: (See Goal Flow Sheet for [...] 10:13 AM Left shoulder pain EXERCISES CDT [facility] HOT OR COLD PACKS Routine 11/13/2014 10:13 AM Left shoulde r pain THERAPY CDT documented in this encounter Visit Diagnoses Diagnosis Left shoulder pain - Primary Pain in joint, shoulder region documented in this encounter Care Teams Sr. Manager Corporate Communications Relationship Specialty Start Date End Date Idalmis Sloan PCP - General Family Practice 11/04/13 documented as of this encounter
--- OUTSIDE RECORDS SUMMARY | 2022-01-15 15:29 | XMS_ITS | Encounter Summary ---
:1950 Author Organization [place] Address [address] [place] [address] Care Team Providers Name Role Phone Idalmis Sloan Primary Care Provider Ana Jacobs PA-C Unavailable Madhav Matute MD Unavailable Encounter Details Date Type Department Care Team Description 11/21/2014 External Order [facility] Outside, Provider Results Rehabilitation Services [facility] [address] [place] [address] [address] [place] [address] Social History Tobacco Use Types [...] documented as of this encounter Care Teams Glass Forming Crew Member Relationship Specialty Start Date End Date Idalmis Sloan Ann PCP - General Family Practice 11/04/13 Aan Jacobs PA-C Assigned Neuroscience 11/04/20 12/01/20 [facility] Provider [address] [id number] Madhav Matute MD Assigned Neuroscience 12/02/20 [address] [id number] documented as of this encounter
--- OUTSIDE RECORDS SUMMARY | 2022-01-15 15:29 | XMS_ITS | Encounter Summary ---
:1950 Author Organization [place] Address [facility] [place] [address] Care Team Providers Name Role Phone Idalmis Sloan Primary Care Provider Reason for Visit [facility] Physical Therapy (Routine) - Denied Specialty Diagnoses / Procedures Referred By Contact Refer red To Contact Physical Therapy Diagnoses >4 s/p L rot tiff / mehdi lorenzana @ ortho / BCBS 30 visits per year Mehdi Gaffney MD Judd, Laurie, PT Procedures [facility] AND [id number] [place] [address] [facility] [address] [place], [place] [id number] [place] [address] Referral ID Status Reason Start Date Expiration Date Visits V isits Requested Authorized KIMBER/WC/PT/L Denied 06/11/2015 06/10/2016 14 0 SHLDR POST [id number] Encounter Details Date Type Department Care Team Description 06/11/2015 [facility] Sprain of left rotator cuff capsule (Apoorva womack Dx); Rehabilitation [address] [address] Other postp rocedural status(V45.89) Services [place] [facility] [address] [place] [address] [address] [address] [place] [address] (Work) [phone] Social History Tobacco Use Types Packs/Day Years [...] Sheet for this information) Short term and correction goals: (See Goal Flow Sheet for this [...] status documented in this encounter Care Teams Service Tech Relationship Specialty Start Date End Date Idalmis Sloan PCP - General Family Practice 11/04/13 documented as of this encounter
--- OUTSIDE RECORDS SUMMARY | 2022-01-15 15:29 | XMS_ITS | Encounter Summary ---
:1950 Author Organization [place] Address [address] [place] [address] Care Team Providers Name Role Phone Unavailable [...] Waleska Alcaraz - 03/21/2012 7:37 PM CST [place] [facility] Triage Call Report Patient Name: Krys Mosher Call Date & Time: 03/21/2012 11:00:19AM Patient PCP Name: Idalmis Sloan MRN: Patient Address: [address] [address] Patient Date of : 1950 Age: 61 yr. Patient Gender: Female Custom Leather Products Maker Name: Idalmis Bolaños Presenting Problem: Krys has [...] Procedure Note: .Other right foot surgery 2006 AT [facility] HEL[facility] documented in this encounter Plan of Treatment Not on filedocumented as of this encounter Visit Diagnoses Not on filedocumented in this encounter
--- OUTSIDE RECORDS SUMMARY | 2022-01-15 15:29 | XMS_ITS | Encounter Summary ---
:1950 Author Organization [place] Address [address] [facility] [place] [address] Care Team Providers Name Role Phone Idalmis Sloan Primary Care Provider Encounter Details Date Type Department Care Team Description 11/04/2013 Hospital Encounter [facility] Jermaine Paz Ulceration ([facility] MD Chuck [address] [place], [place] ORTHOPEDICS [address] [phone] [place] [address] (Wo rk) Social History Tobacco [...] site documented in this encounter Care Teams Public Affairs Specialist Relationship Specialty Start Date End Date Idalmis Sloan PCP - General Family Practice 11/04/13 documented as of this encounter
--- OUTSIDE RECORDS SUMMARY | 2022-01-15 15:29 | XMS_ITS | Encounter Summary ---
:1950 Author Organization [place] Address [address] [place], [place] [address] Care Team Providers Name Role Phone Unavailable [...] Waleska Alcaraz - 01/16/2012 7:49 PM CST [place] [facility] Triage Call Report Patient Name: Krys Mosher Call Date & Time: 07/18/2011 8:05:57PM Patient PCP Name: Idalmis Sloan MRN: Patient Address: [address] [place] [address] Patient Date of : 1950 Age: 61 yr. Patient Gender: Female Wing Scorer Name: Viji Hyatt Presenting Problem: I have an infected little toe. Red, painful, swollen. Went to a foot doctor amonth ago who shaved off a callus and a few days ago little right toe started getting red; now looks infected she states. Refuses ER due to high deductible and insurance problems; and wants to see if MD assistant front desk manager would call in an ABX. Is allergic to : cipro possibly; sulfa and augmentin. Can take Keflex and levoquin she states. I called Dr. Chacon and he allowed me to call in an Rx Keflex po 500mg TID x7days. I called this into [facility] in [place]. This note will be faxed to [place] office; please ATTN: Dr. Sloan. Triage Note: [...] Procedure Note: .Other right foot surgery 2006 CATCHER documented in this encounter Plan of Treatment Not on filedocumented as of this encounter Visit Diagnoses Not on filedocumented in this encounter
--- OUTSIDE RECORDS SUMMARY | 2022-01-15 15:30 | XMS_ITS | Encounter Summary ---
:1950 Author Organization [place] Address [address] [facility] [place] [address] Care Team Providers Name Role Phone Unavailable Primary Care Provider Unavailable Encounter Details Date Type Department Care Team Description 08/21/2010 Results Only [facility] Jose Comer, Hospital Results [facility] [address] [place] [address] (Wo rk) Social History Tobacco [...]
--- OUTSIDE RECORDS SUMMARY | 2022-01-15 15:30 | XMS_ITS | Encounter Summary ---
:1950 Author Organization [place] Address [facility] [place] [address] Care Team Providers Name Role Phone Unavailable Primary Care Provider Unavailable Encounter Details Date Type Department Care Team Description 08/22/2010 Historic Notes INTERFACED REPORT Interface, Transcript onMD Social History Tobacco Use Types Packs/Day Years Used Date Smoking Tobacco: Never Assessed Sex Assigned at Date Recorded Not on file documented as of this encounter Progress Notes Interface, Filling Hand - 12/02/2010 7:39 PM CDT Patient Status - Physical status Stable (s/s of potential complications absent or manageable) - Psychosocial status Stable Discharge Planning - Discharge From: [facility] - Patient Care Unit: ms 2 - [...] Materials, and Instructions, Follow Up Care Interface, Filling Hand - 12/02/2010 7:39 PM CDT General Information [...] Mobility: Rolling/Turning - Level of stand-by assist Gillespie: Bed Mobility: Scooting/Bridging - Level of stand-by assist Gillespie: Bed Mobility: Sit to Supine - Level of stand-by assist Gillespie: Bed Mobility: Supine to Sit - Level of stand-by assist Gillespie: Bed Mobility Analysis - Impairments pain Contributing to Impaired Bed Mobility: Transfer: Sit to Stand - Level of CGA Gillespie: - Physical verbal cues; supervision Assist/Nonphysical Assist: Transfer: Stand to Sit - Level of stand-by assist Gillespie: Gait Skills - Level of minimum assist (75% patients effort) Gillespie: - Physical verbal cues Assist/Nonphysical Assist: - Assistive Device: OPERATIONS ASST and IV pole - Gait Distance: 20' to door and back Gait Analysis - Gait Pattern Used: swing-to gait - Gait Deviations decreased jeffery; decreased step length Noted: - Impairments pain Contributing to Gait Deviations: Balance Skills Assessment - Sitting Balance: independent Static: - Sitting Balance: independent Dynamic: - Bqu-zl-Oeact Balance: minimum assist (75% patients effort) - [...] - Anticipated Equipment elastic laces and a in flight refueling manager at Discharge: - Risks and Benefits of [...] Assessment, Sensation, Treatment Plan, Clinical Impression Interface, Filling Hand - 12/02/2010 7:38 PM CDT SH - Responded to referral per pt. request for emotional support. Pt. is recovering from back surgery, and she says it went very well, expresses gratitude for Dr. Comer's skill and the quality of care she has received from nursing staff. 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 Pt. is originally from [place], [place] where she was a [facility], has not found a new aisha home since moving to [place], [place] but says she attends chapel at [facility] occasionally. Pt.'s family have not been able to visit due to a wedding in [place], but said her should be back in time for discharge. Offered active listening, emotional support, prayed for comfort and healing and gave thanks for successful surgery. Will follow up if needs arise. [Signature] Author: MARY ELIAS (Blood Bank Supervisor Hard Candy Spinner) [Signed 10:25] documented in this encounter Plan of Treatment Not on filedocumented as of this encounter Visit Diagnoses Not on filedocumented in this encounter
--- OUTSIDE RECORDS SUMMARY | 2022-01-15 15:30 | XMS_ITS | Encounter Summary ---
:1950 Author Organization [place] Address [address] [facility] [place] [address] Care Team Providers Name Role Phone Unavailable Primary Care Provider Unavailable Encounter Details Date Type Department Care Team Description 08/21/[address] [facility] Jose Comer (Entry Clerk) [facility] MD Dipti Results [facility] [address] [facility] [address] [place] [address] Social History Tobacco Use Types [...] of pedicle screw mary fixation, L3-L4 (CD). 8.[place] of autogenous bone marrow, right ilium. SURGEON: Jose Comer MD CONFECTIONERY LABORATORY MANAGER: Bethany Chaparro PA-C, INDICATIONS FOR PROCEDURE: Krys [...] of L2 and L4 with a #1 [place], and then using a 4 mm [place] [...] of L2 and L4, using a #1 [place], and then with the help of a [...] The set nuts were torqued to the zoo director's specifications with a torque wrench. The wound [...] in good condition. Revised: , , Document: [id number], EM#[id number] Electronically signed on 08/22/2010 06:48 by JOSE COMER MD MT: [id number] Name: KRYS MOSHER Account: [id number] : 1950 Procedure Date: 08/21/2010 Document: [id number] cc: Idalmis Sloan MD documented in this encounter Plan of Treatment Not on filedocumented as of this encounter Visit Diagnoses Not on filedocumented in this encounter
--- OUTSIDE RECORDS SUMMARY | 2022-01-15 15:30 | XMS_ITS | Encounter Summary ---
:1950 Author Organization [place] Address [facility] [place] [address] Care Team Providers Name Role Phone Unavailable Primary Care Provider Unavailable Encounter Details Date Type Department Care Team Description 08/22/2010 Hospital Laboratory [facility] Results Carlos simmons PA-C [facility] [address] [address] (Wo rk) Social History Tobacco Use Types [...] Signature Hemoglobin 10.4 (L) 11.7 - 15.7 [place] g/dL [facility] Specimen Anatomical Collection Method Collection Time Receive d Time (Source) Location / / Volume Laterality 08/22/2010 7:55 AM 1 7:58 CDT AM CDT Maame Chaparro PA-C LAB - BLOOD ORDERABLES Performing Organization Address City/State/ZIP Code Phon e Number [facility] [address] [place] [place], [place] [address] [facility] (ABNORMAL) Basic metabolic panel (08/22/2010 7:55 AM CDT) P athologist Signature Sodium 138 133 - 144 [place] mmol/L [facility] Potassium 4.2 3.4 - 5.3 [place] mmol/L [facility] Chloride 107 94 - 109 [place] mmol/L [facility] Carbon Dioxide 24 20 - 32 [place] mmol/L [facility] Anion Gap 8 6 - 17 [place] mmol/L [facility] Glucose 112 (H) 60 - 99 [place] mg/dL [facility] Urea Nitrogen 10 7 - 30 [place] mg/dL [facility] Creatinine 0.74 0.52 [facility] 1.[facility] mg/dL [facility] GFR Estimate 80 >60 [place] mL/min/1.[address] [place] [address] LAB GFR Estimate If >90 >60 [place] Black mL/min/1.[address] [place] [address] LAB Calcium 7.7 (L) 8.5 - 10.4 [place] mg/dL [facility] Specimen Anatomical Collection Method Collection Time Receive d Time (Source) Location / / Volume Laterality 08/22/2010 7:55 AM 1 7:58 CDT AM CDT Maame Chaparro PA-C LAB - BLOOD ORDERABLES Performing Organization Address City/State/ZIP Code Phon e Number [place] [address] [place], [place] [address] [facility] documented in this encounter Visit Diagnoses Not on filedocumented in this encounter
--- OUTSIDE RECORDS SUMMARY | 2022-01-15 15:30 | XMS_ITS | Encounter Summary ---
:1950 Author Organization [place] Address [facility] [place] [address] Care Team Providers Name Role Phone Unavailable Primary Care Provider Unavailable Encounter Details Date Type Department Care Team Description 08/22/2010 Historic Notes INTERFACED REPORT Israel Schwab RN [facility] [address] [place], [place] [address] (Wo rk) Social History [...] was around 8/10. She feels that the HOME STAGER with the vistaril and tylenol are a [...] one 50 mg dose this AM) Dilaudid HOME STAGER 0.1-0.2 Q 6 min with CR of [...] with current interventions. Plan: 1. Will keep HOME STAGER as it is, since she is doing [...] and coordination of care. Signatures ISRAEL SCHWAB (HUMAN RESOURCE ADVISOR)[Signed 09:46] Authored: Interval History/Chief Complaint, Review of Systems, Physical Exam, Vital Signs/Labs/Imaging/Culture Review, Pain Score and Medications, Assessment and Plan documented in this encounter Plan of Treatment Not on filedocumented as of this encounter Visit Diagnoses Not on filedocumented in this encounter
--- OUTSIDE RECORDS SUMMARY | 2022-01-15 15:30 | XMS_ITS | Encounter Summary ---
:1950 Author Organization [place] Address [facility] [place] [address] Care Team Providers Name Role Phone Unavailable Primary Care Provider Unavailable Encounter Details Date Type Department Care Team Description 08/16/2010 Historic Notes INTERFACED REPORT Interface, Transcript onMD Social History Tobacco Use Types Packs/Day Years Used Date Smoking Tobacco: Never Assessed Sex Assigned at Date Recorded Not on file documented as of this encounter Progress Notes Interface, Bill Board Poster - 12/02/2010 7:47 PM CDT General Information - How to be Addressed [place] - Source of Information patient - Patient Belongings clothing; glasses; walker and cane - auto parts counter person #1: Sachin - Relationship to patient #1: - Phone 1: [phone] - auto parts counter person #2: Sabiha Burgess - Relationship to sister patient #2: - Phone 1: [phone] - Patient's spoken language; Indonesian or Bilingual communication style Advance Directive - [...] Values/Beliefs/Spiritual Care - C: Community: In hospital lens matcher support of your spiritual health, is there someone we may contact for you? (identify all that apply) Learning Assessment - Factors Influencing no factors identified Readiness to Learn - Factors that Impact none Ability to Learn - Learning Preferences skill demonstration; written material - Cultural none Considerations - Developmental none Considerations - Sikh none Considerations Mutuality/Individual Preferences - What information none would help us give you more personalized care? Signatures KAYLEIGH MAX (RN)[Signed 15:03] Authored: General Information, Skin Inspection, Coping Stress/Abuse Rosario Prado (Electric Motor Repairing Supervisor)[Signed 17:38] Authored: Advance Directive JOSE BROWN (RN)[Signed [...]
--- OUTSIDE RECORDS SUMMARY | 2022-01-15 15:30 | XMS_ITS | Encounter Summary ---
:1950 Author Organization [place] Address [address] [place] [address]. [place] [address] Care Team Providers Name Role Phone Unavailable Primary Care Provider Unavailable Encounter Details Date Type Department Care Team Description 08/21/2010 Hospital Laboratory [facility] [place], [facility] Results MD Dipti [facility] [address] [facility] [address] [place] [address] (Wo rk) Social History [...] At Patho logist Time Signature ABO A [facility] RH(D) Pos [facility] Antibody Neg [facility] LAB Specimen 08/24/2010 [facility] LAB Specimen Anatomical Collection Method Collection Time Receive d Time (Source) Location / / Volume Laterality 08/21/2010 6:15 AM 1 6:17 CDT AM CDT Jose Comer MD LAB - BLOOD BANK TEST ORDER Performing Organization Address City/State/ZIP Code Phon e Number M [facility] [address] [place], [place] [address] [facility] documented in this encounter Visit Diagnoses Not on filedocumented in this encounter
--- OUTSIDE RECORDS SUMMARY | 2022-01-15 15:30 | XMS_ITS | Encounter Summary ---
:1950 Author Organization [place] Address [facility] [place] [address] Care Team Providers Name Role Phone Unavailable Primary Care Provider Unavailable Encounter Details Date Type Department Care Team Description 08/21/2010 Consultation [facility] Idalmis Schwab, Hospital Results RN [facility] [address] [place], [place] [address] (Wo rk) Social History [...] same nurse practitioner, Sherry Arambula of the [facility]. It does not appear that [...] a pain clinic and that would be [facility] that [place] located [place]. 3. Esophageal reflux. 4. Tobacco use. 5. [...] 100 mg b.i.d. She is on a SOLE LEVELER Dilaudid. She can have 0.1-0.2 q.6minutes with a continuous rate of 0.1-0.2 for an hour limit of 1.5. She has not taken any other medswhile here. REVIEW OF SYSTEMS: Please see the [facility] adult patient profile done by Amanda [...] but does have pain meds ordered per SOLE LEVELER. Patient having somatosensory-type of inflammatory pain postop. PLAN: 1. We will leave SOLE LEVELER as it was written for. Patient is [...] CARROLL Name: KRYS MOSHER MRN: [id number] Account: [id number] : 1950 Consult Date: 08/21/2010 Document: [id number] cc: SAIMA MCHUGH PA-C documented in this encounter Plan of Treatment Not on filedocumented as of this encounter Visit Diagnoses Not on filedocumented in this encounter
--- OUTSIDE RECORDS SUMMARY | 2022-01-15 15:31 | XMS_ITS ---
:1950 Author Care Team Providers Name Role Phone Ed Travis Primary Care Provider Unavailable Allergies Code Code System Name Reaction Severity Status Onset 090531 RxNorm Augmentin ? ? Active ? 7052 [...] ? Specific 1.025 1.005-1.030 Final [facility]: Complete [place] [address], [place] ? ? URINE ? Ph 5.5 5.0-7.5 Final [facility]: [address], [place] ? ? URINE ? Urine-colo yellow yellow Final [facility]: r [address], [place] ? ? URINE ? Appearance clear clear Final [facility]: [address], [place] ? ? URINE ? WBC negative negative Final [facility]: Esterase [address], [place] ? ? URINE ABNOR Protein 1+ negative/tra Final [facility]: MAL ce [address], [place] ? ? URINE ? Glucose negative negative Final [facility]: [address], [place] ? ? URINE ABNOR Ketones trace negative Final [facility]: MAL [address], [place] ? ? URINE ? Occult negative negative Final [facility]: Blood [address], [place] ? ? URINE ? Bilirubin negative negative Final [facility]: [address], [place] ? ? URINE ? Urobilinog 0.2 0.2-1.0 Final [facility]: en,semi-qn mg/dL mg/dL [address], [place] ? ? URINE ? Nitrite, negative negative Final Lab [facility]: Urine [address], [place] ? ? URINE ? Microscopi see ? Final [facility]: c below: [address], [place] ? ? URINE ? Wbc 0-5 /hpf 0 - 5 /hpf Final [facility] or[facility]: [address], [place] ? ? URINE ? Rbc 0-2 /hpf 0 - 2 /hpf Final [facility] or[facility]: [address], [place] ? ? URINE ? Epithelial 0-10 0 - 10 /hpf Final [facility]: Cells (Non /hpf [address], [place] ? ? URINE ? Epithelial spice mixer ? Cancelle Lab leonora: Cells d [address], [place] ? ? URINE ? Casts spice mixer ? Cancelle [facility]: d [address], [place] ? ? URINE ? Cast Type spice mixer ? Cancelle [facility]: d [address], [place] ? ? URINE ABNOR Crystals present n/a Final [facility]: MAL [address], [place] ? ? URINE ? Crystal amorphou n/a Final [facility]: Type s [address], [place] ? ? URINE ? Mucus present not estab. Final [facility]: Threads [address], [place] ? ? URINE ? Bacteria few none Final [facility] : seen/few [address], [place] ? ? URINE ? Yeast spice mixer ? Cancelle [facility]: d [address], [place] ? ? URINE ? Trichomona spice mixer ? Cancelle Lab le[facility]: s d [address], [place] ? ? URINE ? Comment spice mixer ? Cancelle [facility]: d [address], [place] ? ? URINE ? Microscopi spice mixer ? Cancelle Lab le[facility]ora: c d [address], [place] 07/16/2020 Culture, URINE ABNOR Urine final ? Final [facility] orp Urine MAL Culture, report ([place] Routine ): [address] [facility] [place] ? ? URINE ABNOR Result 1 comment ? Final [facility] p MAL ([place] n ): [address] [facility] [place] ? ? URINE ABNOR Result 2 serratia ? Final [facility] MAL maryce ([place] ns ): [address] [facility] [place] ? ? URINE ? Antimicrob comment ? Final Labc orp ial ([place] Susceptibil ): [address] [facility] [place] Past Encounters 07/16/2020 Cellulitis of Toe of Right Foot; Urinary Tract Infectious Disease [facility]: [address] [facility], [address], [place] [address], Ph. Social History Tobacco Smoking Status Former Smoker Vaccine List None recorded. Plan of Care Reminders Provider Appointments None recorded. ? ? Lab None recorded. ? ? Referral None recorded. ? ? Procedures None recorded. ? ? Surgeries None recorded. ? ? Imaging None recorded. ? ? Vitals Weight BMI Blood Pressure 160/91 mm[Hg]
--- OUTSIDE RECORDS SUMMARY | 2022-01-28 14:16 | XMS_ITS | Encounter Summary ---
:1950 [facility] Address [address] [place] [address] Care Team Providers Name Role Phone Unavailable Primary Care Provider Unavailable Reason for Visit Reason Comments Fax LAB RESULTS Encounter Details Date Type Department Care Team Description 12/02/2017 Telephone [facility] [address] Dust[address] Cagle MD Fax; LAB RESULTS Endocrinology [address] [place] [address] [phone] (Wo rk) Social History Tobacco Use Types [...] be faxed to Dr. Idalmis Sloan at [phone]. documented in this encounter Plan of Treatment Not on filedocumented as of this encounter Visit Diagnoses Not on filedocumented in this encounter
--- OUTSIDE RECORDS SUMMARY | 2022-01-28 14:16 | XMS_ITS | Clinical Summary ---
:1950 [facility] Address [address] [place] [address] Care Team Providers Name Role Phone Unavailable [...] for each transition of care or referral. [email or web address] Allergies Active Allergy Reactions Severity Noted Date [...] day. tabletIndications: Indications: EDWIN PERDOMO Thu EDWIN PREDOMO Thu 11:38 AM Oct 25, 2012 11:38 [...] 36.5 ??C (97.7 ??F) 03/03/2013 10:55 AM SPORTS ANALYST Respiratory Rate - - Oxygen Saturation - [...] Phone Address Typ e / Group Dates [facility] MEDICARE [id number] 2018-Pre [phone] [address] Medicare ADVANTAGE sent [phone] [place] [address]
--- OUTSIDE RECORDS SUMMARY | 2022-01-28 14:16 | XMS_ITS | Encounter Summary ---
:1950 Author Organization [facility] Address [address] [place] [address] Care Team Providers Name Role Phone Unavailable Primary Care Provider Unavailable Reason for Visit Reason Comments Other Encounter Details Date Type Department Care Team Description 11/20/[address] [facility] [address] Dustin Cagle MD Other Endocrinology [address] [place] [id number] (Wo rk) Social History Tobacco Use Types [...]
--- OUTSIDE RECORDS SUMMARY | 2022-01-28 14:16 | XMS_ITS | Encounter Summary ---
:1950 Author Organization [facility] Address [address] [place] [address] Care Team Providers Name Role Phone Unavailable Primary Care Provider Unavailable Reason for Visit Reason Comments [facility] Encounter Details Date Type Department Care Team Description 11/02/2012 Procedure Visit [facility], Bravo Chao ECZEMA [address] [place] [address] Social History Tobacco Use [...]
--- OUTSIDE RECORDS SUMMARY | 2022-01-28 14:16 | XMS_ITS | Encounter Summary ---
:1950 Author Organization [facility] Address [address] [place] [address] Care Team Providers Name Role Phone Unavailable Primary Care Provider Unavailable Reason for Visit Reason Comments Cough Encounter Details Date Type Department Care Team Description 03/03/2013 [facility] Tammie Mohan, Acute bronchitis Medicine AUTOMOBILE CLUB MEMBERSHIP SALES AGENT, DIRECT MARKETING COORDINATOR (Primary Dx) [address] [address] [place], [place] [phone] [address] Social History Tobacco Use Types Packs/Day Years Used Date Smoking Tobacco: Never Assessed Sex Assigned at Date Recorded Not on file documented as of this encounter Last Filed Vital Signs Vital Sign Reading Time Taken Comments Blood Pressure 124/68 03/03/2013 10:55 AM PRODUCT SUPPORT SPECIALIST Pulse 84 03/03/2013 10:55 AM PRODUCT SUPPORT SPECIALIST Temperature 36.5 ??C (97.7 ??F) 03/03/2013 10:55 AM PRODUCT SUPPORT SPECIALIST Respiratory Rate - - Oxygen Saturation - - Inhaled Oxygen Concentration - - Weight - - Height - - Body Mass Index - - documented in this encounter Patient Instructions Patient InstructionsMoTammie cullen - 03/03/2013 11:13 AM CST Delsym for cough Mucinex D for sinus congestion. Ask the Pharmacist for this UCT SUPPORT SPECIALIST documented in this encounter Progress Notes Tammie [...] 7 days. Take 30 minutes before first wqvz-kndhu-vtjhcggwon. Avoid lying down for 30 minutes. ??? [...] discharged ambulatory and in stable condition. *SH~DNS~SOAP1 UCT SUPPORT SPECIALIST documented in this encounter Plan of Treatment Not on filedocumented as of this encounter Visit Diagnoses Diagnosis Acute bronchitis - Primary documented in this encounter
--- OUTSIDE RECORDS SUMMARY | 2022-01-28 14:16 | XMS_ITS | Encounter Summary ---
:1950 Author Organization [email or web address] Address [address] [place] [address] Care Team Providers Name Role Phone Unavailable Primary Care Provider Unavailable Reason for Visit Reason Comments RESULTS, TEST Encounter Details Date Type Department Care Team Description 09/29/2012 Telephone [facility] Dermatology Carlos Jones MD RESULTS, TEST [address] [facility] [address] [place] [address] [place] [address] (Wo rk) Social History Tobacco [...] absence (rc 8-5) She may be reached @[phone]. Thank you. documented in this encounter Plan of Treatment Not on filedocumented as of this encounter Visit Diagnoses Not on filedocumented in this encounter
--- OUTSIDE RECORDS SUMMARY | 2022-01-28 14:16 | XMS_ITS | Encounter Summary ---
:1950 Author Organization [facility] Address [address] [place] [address] Care Team Providers Name Role Phone Unavailable Primary Care Provider Unavailable Reason for Referral Specialty Diagnoses / Procedures Referred By Contact Refer red To Contact Masood Wright, [facility] [address] [place] [address] Referral ID Status Reason Start Date Expiration Date Visits Requ ested Visits Authorized Reason for Visit Reason Comments Rash Encounter Details Date Type Department Care Team Description 09/22/2012 Initial Consult [facility] 3800 Megan Son MD Rash/skin eruption (Primary Dx); Dermatology [address] Rash and other nonspecific s kin eruption [address] [address] [phone] Social History Tobacco Use Types Packs/Day Years [...] whole body going on for4-5 weeks. Seen [facility] twice for this condition. Red bumps with itching. Tried Bactroban cream, OTCallergy medication, hydrocortisone, hydroxizine. The Bactroban seemed to help little but rash continues to spread. Was in patient hospital for back surgery and rash has been present since and does not believe she has had any new medications prior to the rash. Had biopsy at [facility] which she thought the results [...] 7 days. Take 30 minutes before first uwdj-xbqsn-wozxvdqykg. Avoid lying down for 30 minutes. ??? [...] drawnalso discussed getting labs and slides from [facility] vs doing another biopsy today. Patientelected to have biopsy done today. release of information sent to [facility] today. After disc ussion, a punch biopsy [...] as recommended. Kelly Ashby RN at 09/29/12 1602 Status: Signed Calling for biopsy results---please advise in 's absence (rc 8-5) She may be reached @[phone]. Thank you. TOP SUPPORT MANAGER documented in this encounter Plan of [...] Component Value Ref Test Analysis Performed At [facility] gist Range Method Time Signature Path: ? FINAL DERMATOPATHOLOGY REPO RT HP CONVERSION Pathology #: [id number] ? Date Obtained: 09/22/2012 ?Date Received: 09/22/2012 [...] visit in 2 weeks.------ Notes Recorded by Mgean Son MD on 10/06 at 8:25 AMCalled, [...] when she returns next week.------Notes Recorded by Yomaiar Payton RN on 09/29/2012 at 6:04 PMDocumentation [...] absence (rc 8-5) She may be reached @[phone]. Thank you. Megan Son MD LAB_1 Performing Organization Address City/State/ZIP Code Phon e Number HP CONVERSION documented in this encounter Visit Diagnoses Diagnosis Rash/skin eruption - Primary Rash and other nonspecific skin eruption Rash and other nonspecific skin eruption documented in this encounter
--- OUTSIDE RECORDS SUMMARY | 2022-01-28 14:16 | XMS_ITS | Encounter Summary ---
:1950 [facility] Address [address] [place] [address] Care Team Providers Name Role Phone Unavailable Primary Care Provider Unavailable Reason for Visit Reason Comments UPDATE Encounter Details Date Type Department Care Team Description 12/07/[address] [facility] 3800 Dustin Cagle MD UPDATE Endocrinology [address] [place] [address] [phone] (Wo rk) Social History Tobacco Use Types [...]
--- OUTSIDE RECORDS SUMMARY | 2022-01-28 14:16 | XMS_ITS | Encounter Summary ---
:1950 Author Organization Counts include 234 beds at the [facility] Address [address] [place] [address] Care Team Providers Name Role Phone Unavailable Primary Care Provider Unavailable Reason for Visit Reason Comments DERMATITIS Encounter Details Date Type Department Care Team Description 12/02/2012 Procedure Visit [facility], Bravo Chao DERMATITIS [address] [place] [address] Social History Tobacco Use Types [...]
--- OUTSIDE RECORDS SUMMARY | 2022-01-28 14:16 | XMS_ITS | Encounter Summary ---
:1950 Author Organization [facility] Address [address] [place] [address] Care Team Providers Name Role Phone Unavailable Primary Care Provider Unavailable Reason for Visit Reason Comments Lab Questions Encounter Details Date Type Department Care Team Description 09/24/2012 Telephone [facility] 3800 Megan Son MD Lab Questions Dermatology [address] 38[address] [facility] [place] [address] [place], [place] [id number] [phone] Social History Tobacco Use Types Packs/Day Years [...]
--- OUTSIDE RECORDS SUMMARY | 2022-01-28 14:16 | XMS_ITS | Encounter Summary ---
:1950 Author Organization [facility] Address [address] [place] [address] Care Team Providers Name Role Phone Unavailable Primary Care Provider Unavailable Reason for Visit Reason Comments DERMATITIS Encounter Details Date Type Department Care Team Description 11/11/2012 Procedure Visit [facility] Nurse, Bravo Chao DERMATITIS [address] [place] [address] Social History Tobacco Use [...]
--- OUTSIDE RECORDS SUMMARY | 2022-01-28 14:16 | XMS_ITS | Encounter Summary ---
:1950 Author [facility] Address [address] [place] [address] Care Team Providers Name Role Phone Unavailable Primary Care Provider Unavailable Reason for Visit Reason Comments Follow-up Encounter Details Date Type Department Care Team Description 10/25/2012 Office Visit [facility] 3800 Megan Son MD Unspecified pruritic Dermatology [address] [place] disorder (Primary Dx) [address] [place] [address] [phone] Social History Tobacco Use Types Packs/Day Years [...] Has had 2 biopsies ( one at [facility], one elsewhere) , both consistent with [...] 7 days. Take 30 minutes before first tnzi-sslpe-plgsotgcol. Avoid lying down for 30 minutes. ??? [...] lunch. -Discussed UVB therapy, available now in [place] twice a week. Will start this. Warned [...]
--- OUTSIDE RECORDS SUMMARY | 2022-01-28 14:16 | XMS_ITS | Encounter Summary ---
:1950 Author Organization [facility] Address [address] [place] [address] Care Team Providers Name Role Phone Unavailable Primary Care Provider Unavailable Encounter Details Date Type Department Care Team Description 09/22/2012 Lab Visit [facility] [address] Rash/skin eruption [address] [place], [place] [phone] Social History Tobacco Use Types Packs/Day Years [...] am out of the office next week. TRUCTION ENGINEER Miscellaneous - 04/11/2016 5:07 AM CSTNotes Recorded [...] am out of the office next week. TRUCTION ENGINEER [facility] - 04/11/2016 5:07 AM CSTNotes Recorded by [...] am out of the office next week. TRUCTION ENGINEER Miscellaneous - 04/11/2016 5:07 AM CSTNotes Recorded [...] am out of the office next week. TRUCTION ENGINEER Miscellcarol - 04/11/2016 5:07 AM CSTNotes Recorded [...] am out of the office next week. TRUCTION ENGINEER Miscellaneous - 04/11/2016 5:07 AM CSTNotes Recorded by Cherelle Post RN on 09/28/2012 at 1:35 PMspoke with . put in lab for CBC for 2 weeks------ Notes Recorded by Cherelle Post RN on 09/27/2012 at 8:34 AMlm for patient and informed per dr. mcquene. will verify what labs to order, but [...] am out of the office next week. TRUCTION ENGINEER Miscellaneous - 04/11/2016 5:07 AM CSTNotes Recorded [...] am out of the office next week. TRUCTION ENGINEER documented in this encounter Plan of [...] Results (ABNORMAL) Differential (09/22/2012 10:50 AM CDT) [facility] Method Time Signature Absolute 3.6 1.8 [...] - 09/22/2012 11:00 AM CDT Performed at [facility] [address] [place] [address] Transcriptions 04/11/2016 5:07 AM CSTNotes Recorded by [...] Megan Mcqueen MD LAB_1 Performing Organization Address City/[facility] Phon e Number HP CONVERSION [...] Megan Mcqueen MD LAB_1 Performing Organization Address City/[facility] Phon e Number HP CONVERSION [...] Megan Mcqueen MD LAB_1 Performing Organization Address City/[facility] Code Phon e Number HP CONVERSION LENA [...] Megan Mcqueen MD LAB_1 Performing Organization Address City/[facility] Phon e Number HP CONVERSION [...] - 09/22/2012 11:23 AM CDT Performed at [facility] [address] [place] [address] Transcriptions 04/11/2016 5:07 AM CSTNotes Recorded by [...] Panel(Hepatic Function Panel) (09/22/2012 10:50 AM CDT) [facility] Method Time Signature Alk Phos 94 25 [...] - 09/22/2012 11:23 AM CDT Performed at [facility] [place] [address] Transcriptions 04/11/2016 5:07 AM CSTNotes Recorded by [...] - 09/22/2012 11:00 AM CDT Performed at [facility] [address] [place] [address] Transcriptions 04/11/2016 5:07 AM CSTNotes Recorded by [...]
--- OUTSIDE RECORDS SUMMARY | 2022-01-28 14:16 | XMS_ITS | Encounter Summary ---
:1950 Author [facility] Address [address], [place] [address] Care Team Providers Name Role Phone Unavailable Primary Care Provider Unavailable Reason for Visit Reason Comments Rash Encounter Details Date Type Department Care Team Description 09/20/2012 Telephone [facility] Titus Whitten Rash [address] [facility] [place], [place] [address] [address] [place] [address] [phone] [place] [address] (Wo rk) Social History Tobacco Use Types Packs/Day Years Used Date Smoking Tobacco: Never Assessed Sex Assigned at Date Recorded Not on file documented as of this encounter Nursing Notes Denise Mon - 09/21/2012 9:20 AM CDT LM to call [phone] to schedule an appointment. Denise Mon 9:18 [...]
--- OUTSIDE RECORDS SUMMARY | 2022-01-28 14:16 | XMS_ITS | Encounter Summary ---
:1950 Author Organization [facility] Address [address], [place] [address] Care Team Providers Name Role Phone Unavailable Primary Care Provider Unavailable Encounter Details Date Type Department Care Team Description 11/16/2017 Lab Visit [facility] Elevated parathyroid hormone ; [address] Subclinical hyperthyroidism; [place] [address] Hypocalcemia [phone] Social History Tobacco Use Types Packs/Day Years [...] Transglutaminase Ab IgA (11/16/2017 3:17 PM CDT) [facility] Method Time Signature TISSUE 0.4 0.0 - 6.9 PN SOFT TRANSGLUTAMINASE AB IU/L IGA Comment: Reference Range: <7 Negative, 7 - 10 Equivocal, >10 Posit sung Specimen Anatomical Collection Method Collection Time Receive d Time (Source) Location / / Volume Laterality 11/16/2017 3:17 PM 8 8:53 CDT PM CDT Narrative PN SOFT - 11/18/2017 12:30 [place] [address] CLIA number [id number] Anirudh Cagle MD LAB_1 Performing Organization Address [facility] Phon e Number PN SOFT [address] [place] [address] Celiac Disease Reflex Panel IgA (11/16/2017 3:17 PM CDT) athologist Signature IGA 198 69 - 517 PN SOFT mg/dL Specimen Anatomical Collection Method Collection Time Receive d Time (Source) Location / / Volume Laterality 11/16/2017 3:17 PM 8 8:54 CDT PM CDT Narrative PN SOFT - 11/16/2017 9:14 PM CDT Performed at [address] [address] CLIA number [id number] Anirudh Cagle MD LAB_1 Performing Organization Address [facility] Phon e Number PN SOFT [address] [place] [address] Tsh Receptor Antibody (11/16/2017 3:17 PM CDT) athologist Signature TSH Receptor <0.90 <=1.75 IU/L PN SOFT Antibody Comment: Performed by [facility], [address] [place] [address] [email or web address], Papito Palomares MD - Lab . Director Specimen Anatomical Collection Method Collection Time Receive d Time (Source) Location / / Volume Laterality 11/16/2017 3:17 PM 8 8:43 CDT PM CDT Narrative PN SOFT - 11/18/2017 8:02 PM CDT Performed at [facility] [address] [place] [address] CLIA number [id number] Anirudh Cagle MD LAB_1 Performing Organization Address City/[facility] Code Phon e Number PN SOFT [address] [place] [address] T3 - Triiodothyronine, Free (FRT3) (11/16/2017 3:17 PM CDT) athologist Signature Triiodothyronin 3.2 1.7 - 3.7 PN SOFT e, Free pg/mL Specimen Anatomical Collection Method Collection Time Receive d Time (Source) Location / / Volume Laterality 11/16/2017 3:17 PM 8 6:30 CDT PM CDT Narrative PN SOFT - 11/16/2017 7:10 PM CDT Performed at [address] [address] CLIA number [id number] Anirudh Cagle MD LAB_1 Performing Organization Address City/[facility] Phon e Number PN SOFT [address] [place] [address] Free T4 (11/16/2017 3:17 PM CDT) athologist Signature Thyroxine, Free 1.1 0.7 - 1.5 PN SOFT ng/dL Specimen Anatomical Collection Method Collection Time Receive d Time (Source) Location / / Volume Laterality 11/16/2017 3:17 PM 8 6:30 CDT PM CDT Narrative PN SOFT - 11/16/2017 7:10 PM CDT Performed at [address] [address] CLIA number [id number] Anirudh Cagle MD LAB_1 Performing Organization Address [facility] Phon e Number PN SOFT [address] [place] [address] TSH (11/16/2017 3:17 PM CDT) athologist Signature Thyroid 0.38 0.30 - PN SOFT Stimulating 4.50 Hormone uIU/mL Specimen Anatomical Collection Method Collection Time Receive d Time (Source) Location / / Volume Laterality 11/16/2017 3:17 PM 8 6:30 CDT PM CDT Narrative PN SOFT - 11/16/2017 7:10 PM CDT Performed at [address] [address] CLIA number [id number] Anirudh Cagle MD LAB_[address] Performing [address] [facility] Phon e Number PN SOFT [address] [place] [address] Vitamin D (In house) (11/16/2017 3:17 PM [...] - 11/16/2017 9:29 PM CDT Performed at [address] [address] CLIA number [id number] Anirudh Cagle MD LAB_1 Performing Organization Address [facility] Phon e Number PN SOFT [address] [place] [address] [phone] (ABNORMAL) PTH - Parathyroid Hormone Intact (11/16/2017 3:17 PM CDT) P athologist Signature PTH 159 (H) 10 - 100 PN SOFT pg/mL Specimen Anatomical Collection Method Collection Time Receive d Time (Source) Location / / Volume Laterality 11/16/2017 3:17 PM 8 8:43 CDT PM CDT Narrative PN SOFT - 11/16/2017 9:51 PM CDT Performed at [address] [address] CLIA number [id number] Anirudh Cagle MD LAB_1 Performing Organization Address City/[facility] Phon e Number PN SOFT [address] [place] [address] Phosphorus (11/16/2017 3:17 PM CDT) athologist Signature Phosphorus Serum 3.2 2.3 - 4.7 PN SOFT mg/dL Specimen Anatomical Collection Method Collection Time Receive d Time (Source) Location / / Volume Laterality 11/16/2017 3:17 PM 8 3:16 CDT PM CDT Narrative PN SOFT - 11/16/2017 4:36 PM CDT Performed at [facility], [facility] [address] [place] [address] CLIA number [id number] Anirudh Cagle MD LAB_1 Performing Organization Address City/[facility] Phon e Number PN SOFT [address] [place] [address] (ABNORMAL) CMP - Comprehensive Metabolic Panel (11/16/2017 [...] - 11/16/2017 4:36 PM CDT Performed at [facility], [address] [place] [address] CLIA number [id number] Anirudh Cagle MD LAB_1 Performing Organization Address City/State/ZIP Code Phon e Number PN SOFT [address] [place] [address] documented in this encounter Visit Diagnoses Diagnosis Elevated parathyroid hormone (HRC) Unspecified endocrine disorder Subclinical hyperthyroidism (HRC) Thyrotoxicosis without mention of goiter or other cause, without mention of thyrotoxic crisis or storm Hypocalcemia documented in this encounter
--- OUTSIDE RECORDS SUMMARY | 2022-01-28 14:16 | XMS_ITS | Encounter Summary ---
:1950 Author Organization [facility] Address [address] [place] [address] Care Team Providers Name Role Phone Unavailable Primary Care Provider Unavailable Reason for Visit Reason Comments Appt. Needed Referral rec via fax for Hyp erthyroidism from Dr. Idalmis Sloan at [facility] Encounter Details Date Type Department Care Team Description 2017 Notes/Orders [facility] 3800 Nurse, P3800 End Endocrinology [address] [place] [address] [phone] Social History Tobacco Use Types Packs/Day Years Used Date Smoking Tobacco: Every Day Cigarettes 1 Sex Assigned at Date Recorded Not on file documented as of this encounter Progress Notes Killian Shah - 2017 1:20 PM CDT Referral rec via fax for Hyperthyroidism from Dr. Idalmis Sloan at [facility] documented in this encounter Plan of Treatment Not on filedocumented as of this encounter Visit Diagnoses Not on filedocumented in this encounter
--- OUTSIDE RECORDS SUMMARY | 2022-01-28 14:16 | XMS_ITS | Encounter Summary ---
:1950 Author [facility] Address [address] [place] [address] Care Team Providers Name Role Phone Unavailable Primary Care Provider Unavailable Reason for Visit Reason Comments Appt. Scheduled Encounter Details Date Type Department Care Team Description 12/14/2012 Telephone [facility] 3800 Megan Son MD Appt. Scheduled Dermatology [address] [place] [address] [place] [address] [phone] Social History Tobacco Use Types Packs/Day Years [...] her husbands schedule first. She will call [phone] to schedule this appt. Megan Son MD [...]
--- OUTSIDE RECORDS SUMMARY | 2022-01-28 14:16 | XMS_ITS | Encounter Summary ---
:1950 [facility] Address [address] [place] [address] Care Team Providers Name Role Phone Unavailable Primary Care Provider Unavailable Reason for Visit Reason Comments CONSULT Thyroid Encounter Details Date Type Department Care Team Description 11/13/[address] [facility] [address] Anirudh Cagle clinical hyperthyroidism (Primary Dx); Endocrinology MD Jose Elevated parathyroid hormone; [address] [facility] [facility] [address] [place] [address] [phone] Social History Tobacco Use Types Packs/Day Years [...] 12:00 PM CDT NAME: KRYS MOSHER MR#: [id number] CSN: [id number] AUTHENTICATING CLINICIAN: Anirudh Cagle MD CONFIRM #: [id number] LOC: 432 CLINIC CONSULTATION DATE OF CONSULTATION: 11/13/2017 : 1950 REQUESTING PHYSICIAN: CHIEF COMPLAINT: Consult requested by Dr. Sloan for evaluation of hyperthyroidism and elevated PTH. HPI: Krys is a 67-year-old woman. Review of her outside records indicates past medical history of priormedical and surgical history of Mani fundoplication. 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 She has [...] for this consultation. CC: DR. ISRAEL SLOAN [facility] [address] [place], [place] [address] DMT:JARRETT C: CONFIRM #: [id number] documented in this encounter Plan of Treatment [...] - 11/16/2017 9:14 PM CDT Performed at [address] [address] CLIA number [id number] Anirudh Cagle MD LAB_1 Performing Organization Address [facility] Code Phon e Number PN SOFT [address] [place] [address] [phone] Tsh Receptor Antibody (11/16/2017 3:17 PM CDT) athologist [facility] TSH Receptor <0.90 <=1.75 IU/L PN SOFT Antibody Comment: Performed by [facility], [address] [place] [address] [email or web address], Papito Palomares MD - Lab . Director Specimen Anatomical Collection Method Collection Time Receive d Time (Source) Location / / Volume Laterality 11/16/2017 3:17 PM 8 8:43 CDT PM CDT Narrative PN SOFT - 11/18/2017 8:02 PM CDT Performed at [facility] [address] [place] [address] CLIA number [id number] Anirudh Cagle MD LAB_1 Performing Organization Address [facility] Phon e Number PN SOFT [address] [place] [address] T3 - Triiodothyronine, Free (FRT3) (11/16/2017 3:17 PM CDT) athologist Signature Triiodothyronin 3.2 1.7 - 3.7 PN SOFT e, Free pg/mL Specimen Anatomical Collection Method Collection Time Receive d Time (Source) Location / / Volume Laterality 11/16/2017 3:17 PM 8 6:30 CDT PM CDT Narrative PN SOFT - 11/16/2017 7:10 PM CDT Performed at [place] [address] [place] [address] CLIA number [id number] Anirudh Cagle MD LAB_1 Performing Organization Address [facility] Phon e Number PN SOFT [address] [place] [address] Free T4 (11/16/2017 3:17 PM CDT) athologist Signature Thyroxine, Free 1.1 0.7 - 1.5 PN SOFT ng/dL Specimen Anatomical Collection Method Collection Time Receive d Time (Source) Location / / Volume Laterality 11/16/2017 3:17 PM 8 6:30 CDT PM CDT Narrative PN SOFT - 11/16/2017 7:10 PM CDT Performed at [place] [address] [place] [address] CLIA number [id number] Anirudh Cagle MD LAB_1 Performing Organization Address [facility] Phon e Number PN SOFT [address] [place] [address] TSH (11/16/2017 3:17 PM CDT) athologist Signature Thyroid 0.38 0.30 - PN SOFT Stimulating 4.50 Hormone uIU/mL Specimen Anatomical Collection Method Collection Time Receive d Time (Source) Location / / Volume Laterality 11/16/2017 3:17 PM 8 6:30 CDT PM CDT Narrative PN SOFT - 11/16/2017 7:10 PM CDT Performed at [place] [address] [place] [address] CLIA number [id number] Anirudh Cagle MD LAB_1 Performing Organization Address [facility] Phon e Number PN SOFT [address] [place] [address] Vitamin D (In house) (11/16/2017 3:17 PM [...] - 11/16/2017 9:29 PM CDT Performed at [address] [address] CLIA number [id number] Anirudh Cagle MD LAB_1 Performing Organization Address [facility] Phon e Number PN SOFT [address] [place] [address] (ABNORMAL) PTH - Parathyroid Hormone Intact (11/16/2017 3:17 PM CDT) athologist Signature PTH 159 (H) 10 - 100 PN SOFT pg/mL Specimen Anatomical Collection Method Collection Time Receive d Time (Source) Location / / Volume Laterality 11/16/2017 3:17 PM 8 8:43 CDT PM CDT Narrative PN SOFT - 11/16/2017 9:51 PM CDT Performed at [address] [address] CLIA number [id number] Anirudh Cagle MD LAB_1 Performing Organization Address [facility] Phon e Number PN SOFT [address] [place] [address] Phosphorus (11/16/2017 3:17 PM CDT) athologist Signature Phosphorus Serum 3.2 2.3 - 4.7 PN SOFT mg/dL Specimen Anatomical Collection Method Collection Time Receive d Time (Source) Location / / Volume Laterality 11/16/2017 3:17 PM 8 3:16 CDT PM CDT Narrative PN SOFT - 11/16/2017 4:36 PM CDT Performed at [facility], [address] [facility], [place] [address] CLIA number [id number] Anirudh Cagle MD LAB_1 Performing Organization Address City/State/ZIP Code Phon e Number PN SOFT [address] [place] [address] [phone] (ABNORMAL) CMP - Comprehensive Metabolic Panel (11/16/2017 3:17 PM CDT) [facility] Method Time Signature Aspartate 48 (H) [...] - 11/16/2017 4:36 PM CDT Performed at [facility], [address] [facility], [place] [address] CLIA number [id number] Anirudh Cagle MD LAB_1 Performing Organization Address City/State/ZIP Code Phon e Number [place] [address] [place] [address] documented in this encounter Visit Diagnoses Diagnosis [...]
--- OUTSIDE RECORDS SUMMARY | 2022-01-28 14:16 | XMS_ITS | Encounter Summary ---
:1950 Author Organization [facility] Address [address] [place] [address] Care Team Providers Name Role Phone Unavailable Primary Care Provider Unavailable Reason for Visit Reason Comments ECZEMA Encounter Details Date Type Department Care Team Description 11/30/2012 Procedure Visit [facility], Bravo Chao ECZEMA [address] [place] [address] Social History Tobacco Use Types [...]
--- OUTSIDE RECORDS SUMMARY | 2022-01-28 14:16 | XMS_ITS | Encounter Summary ---
:1950 Author Organization [facility] Address [address] [place] [address] Care Team Providers Name Role Phone Unavailable Primary Care Provider Unavailable Reason for Visit Reason Comments Rash SWELLING, LEG Encounter Details Date Type Department Care Team Description 11/27/2012 Nurse Triage [facility] 380 Found, No Pcp , Rash; SWELLING, LEG [facility]ermatology [address] [place], [place] [address] [address] [place] [address] Social History Tobacco Use Types Packs/Day Years Used Date Smoking Tobacco: Never Assessed Sex Assigned at Date Recorded Not on file documented as of this encounter Nursing Notes Vicki Andrew - 11/27/2012 2:28 PM CDT Protocol: LEG SWELLING AND [id number] Affirmative: [1] Thigh, calf, or ankle swelling [...]
--- OUTSIDE RECORDS SUMMARY | 2022-01-28 14:16 | XMS_ITS | Encounter Summary ---
:1950 Author Organization [facility] Address [address] [place] [address] Care Team Providers Name Role Phone Unavailable Primary Care Provider Unavailable Encounter Details Date Type Department Care Team Description 10/25/2012 Lab Visit [facility] 3850 Rash and other nonspecific skin eruption; Laboratory Unspecified pruritic disorde r [address] [place], [place] [address] Social History Tobacco Use Types Packs/Day Years [...] and let her know lymphocytes are ok TER CHASSIS Miscellaneous - 04/11/2016 4:09 AM CSTNotes Recorded by Hira Link RN on 10/25/2012 at 5:13 PMPt notified.------Notes Recorded by Megan Son MD on 10/25/2012 at 3:42 PMPlease call and let her know lymphocytes are ok TER CHASSIS documented in this encounter Plan of Treatment [...] PM CDT Performed at [facility], [address] [place] [address] Transcriptions 04/11/2016 4:09 AM CSTNotes Recorded by Hira Lnik RN on 10/25/2012 at 5:13 PMPt notified.------Notes [...] PM CDT Performed at [facility], [facility] [place] [address] Transcriptions 04/11/2016 4:09 AM CSTNotes Recorded by [...]
--- OUTSIDE RECORDS SUMMARY | 2022-01-28 14:16 | XMS_ITS | Continuity of Care Document ---
:1950 Author Organization [facility] Address [address] [facility] [place] [address] Care Team Providers Name Role Phone [facility] Unavailable Unavailable Procedures Procedure Date INTERLAMINAR CRV OR THRC Advance Directives Directive Yes / No Effective Date File Name No Information Encounters Encounter Practice Location Reason(s) Diagnoses Date Provider Provide rs Description For Visit Copied on Encounter [facility] No [facility] Information [facility] Provider: Surgery Surgery Surgery [facility] [place]. [place], [address] [facility] [address] [facility] [place], [place], [place], [place], [id number], [place], [address]. [id number], tel:[phone]. [phone] tel:[phone] Family History Family Member Type Diagnosis Age At Onset No Information Payers Payer name Insurance type Covered alliance party ID Authorization(s ) [facility] MedicareComplete Replacement 16 [id number] Social History Type Description Quantity Date Captured [...]
--- OUTSIDE RECORDS SUMMARY | 2022-01-28 14:16 | XMS_ITS | Encounter Summary ---
:1950 [facility] Address [address] [place] [address] Care Team Providers Name Role Phone Unavailable Primary Care Provider Unavailable Reason for Visit Reason Comments Ulcer, Foot 5th toes b/l ft sores x 1 we ek Encounter Details Date Type Department Care Team Description 12/22/2018 Initial Consult [facility]ermain Stinson , Charcot's joint of right foot (Primary Dx); MedSurg DPM Blister of fifth toe of right foot, init ial encounter; [address] [place] [address] [place], [place] [phone] [address] Social History Tobacco Use Types Packs/Day Years [...] review indicates that she was admitted at [facility] on November 04, 2018 and discharged [...] List Diagnosis Date Noted ??? Subclinical hyperthyroidism ([facility]) 11/13/2017 ??? Elevated parathyroid hormone ([facility]) 11/13/2017 ??? Hypocalcemia 11/13/2017 No past surgical history on file. Remarkable for right foot reconstruction and graft Social History: Patient is retired [employer] in is here today with her OBJECTIVE: [...] in these are a custom orthotic from [employer]. These are an accommodative insert. ASSESSMENT: ICD-10-CM [...] procedure. In review of the notes from [facility] it does indicate Charcot reconstruction so [...] voice recognition software and may contain some casting inspector errors) documented in this encounter Nursing Notes [...]
--- OUTSIDE RECORDS SUMMARY | 2022-01-28 14:16 | XMS_ITS | Encounter Summary ---
:1950 Author Organization [facility] Address [address] [address] Care Team Providers Name Role Phone Unavailable Primary Care Provider Unavailable Reason for Visit Reason Comments Rash Encounter Details Date Type Department Care Team Description 09/14/2012 Office Visit [place] [facility] Alok Wright/gu[place] in [facility] Medicine Cheri Qureshi (Primary Dx) [address] [place] [address] [place], [place] [phone] (Wo rk) Social History Tobacco Use Types [...] times recently including a visit to the negative developer and was given topical steroid creams without [...] 7 days. Take 30 minutes before first [id number]. Avoid lying down for 30 minutes. ??? [...]
--- OUTSIDE RECORDS SUMMARY | 2022-01-28 14:16 | XMS_ITS | Clinical Summary ---
:1950 Author Organization [facility] [place] [address] Care Team Providers Name Role Phone Idalmis [...] MEDICARE PART A - MEDICARE PART A [id number] 2008-Prese ATTN: CLAIMS HB USE ONLY HB ONLY nt [address] [place] [address] [facility] MR [id number] 2020-Presen [address] [address] [place] [address] Advance Directives Latest Code Status on File Code Status Date Activated Date Inactivated Comments Full Code 07/16/2012 5:52 PM 07/17/2012 6:32 PM Full Code 07/16/2012 10:11 AM 07/16/2012 5:52 PM Care Teams Swabber Relationship Specialty Start Date End Date Idalmis Sloan MD PCP - General Family Practice 07/15/12
--- OUTSIDE RECORDS SUMMARY | 2022-01-28 14:17 | XMS_ITS | Encounter Summary ---
:1950 Author Organization [facility] Address [address] [facility] [place] [address] Care Team Providers Name Role Phone LeviIdalmis stahl Ann Primary Care Provider Madhav Matute MD Unavailable Encounter Details Date Type Department Care Team Description 05/14/2021 Medical Correspondence [facility] Scan, PHYSICAL THERAPY Health Info Mgmt Non-Provider ORDER [facility] [address] [place] [address] Social History Tobacco Use Types Packs/Day Years Used Date Smoking Tobacco: Never Smokeless Tobacco: Never Sex Assigned at Date Recorded Not on file documented as of this encounter Plan of Treatment Not on filedocumented as of this encounter Visit Diagnoses Not on filedocumented in this encounter Care Teams Certified Phlebotomist Relationship Specialty Start Date End Date Idalmis Sloan PCP - General Family Practice 11/04/13 Madhav Matute MD Assigned Neuroscience 12/02/20 [address] MARYANA BEGUM Provider [address] [place] [address] [phone] documented as of this encounter
--- OUTSIDE RECORDS SUMMARY | 2022-01-28 14:17 | XMS_ITS | Clinical Summary ---
:1950 Author Organization [facility] Address [facility] [place] [address] Care Team Providers Name Role Phone Idalmis [...] be differe nt from the original. 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 WC OTHER [id number] 2010-Pres [phone] [phone] [place] [address] [facility] [id number] 2018-Pres [phone] [address] [employer] [facility] [facility] ent [address] [place] [address] [phone] (Home) [address] (Work) [place] [id number] Worker's Employer 1950 [phone] Compensation 9 (Home) [facility] [address] [place] [address] Advance Directives For more information, please contact: [phone] Latest Code Status on File Code Status [...] 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
--- OUTSIDE RECORDS SUMMARY | 2022-01-28 14:17 | XMS_ITS | Continuity of Care Document ---
:1950 Author Organization [facility] Address [address] [place] [address] Phone Care Team Providers Name Role Phone Will Faisal WILL Unavailable Unavailable Allergies, Adverse Reactions, Alerts Substance Reaction Status Criticality morphine Active No Information Sulfa (Sulfonamide Antibiotics) hives Active No Information lorazepam Loopy Active No Information POTASSIUM CLAVULANATE hives Active No Informa tion Medications Medication Instructions Dosage Effective Status Comments Dates (start - stop) hydrocodone 5 take 1 - 2 tablet - Active S upp RX pt mg-acetaminophen by ORAL route pick ed up 325 mg tablet every 4 hours prn, 40/ 120 on max 4 per day for 01/10 chronic pain methadone 5 mg take 1 tablet - Active tablet (5MG) by oral route BID, max of 2 tabs/day for chronic pain trazodone 50 mg take 1 tablet by [...] oral route every day as needed ProAir inhale 2 puff by 180 MCG - Active RespiClick 90 inhalation route 4 mcg/actuation times every day as breath activated needed Multiple Take one tablet by - Active Vitamin, Womens oral route daily tablet simvastatin 5 mg take 0.5 - 1 - Active tablet tablet by oral route every day in the evening hydrocodone 5 take 1 - 2 tablet - No Longer p lease mg-acetaminophen by ORAL route Active alicia te 325 mg tablet every 4 hours prn, pre vious max 4 per day for script chronic pain Procedures Procedure Date Foll-up eval [...] -2013 OFFICE/OUTPATIENT VISIT, EST OFFICE/OUTPATIENT VISIT, EST OFFICE/OUTPATIENT VISIT, EST -2013 Prescription Prior Auth OFFICE/OUTPATIENT VISIT, EST -2013 OFFICE/OUTPATIENT VISIT, EST OFFICE/OUTPATIENT VISIT, EST OFFICE/OUTPATIENT [...] rs Description For Visit Copied on Encounter [facility] No Information Jaspreet Malone. [facility] [address] Pain [place] [address], [facility], [place], [address], [place], [id number], [place], [place]. [place], tel:[phone] 18339 , tel:[phone] OFFICE/OUTPAT [facility] low back Pain in left Pedro Specialist IENT VISIT, [facility] pain kneeRheumatoid [facility]. 72 35 : Rohith EST Pain [place] (chief arthritisDrug 2 [facility] Hien Henderson , [facility], complaint) induced [place].Refer ri [address] constipationPai [place], ng [place], n in left [id number], Provider: [place], shoulderPain in [place]. Faisal CAMACHO, right hipPain tel:[phone] Jaspreet Calderón, [phone] in right ankle 29850 [address] , [place] and joints of [place], tel:+77 right footOther Minnea chiqui [id number] spondylosis, [place], [place], cervical [address] regionOther . spondylosis, tel:[phone] lumbar [phone] regionRadiculop athy, cervical regionPostlamin ectomy syndrome, not elsewhere classifiedLong term (current) use of opiate analgesic OFFICE/OUTPAT [facility] low back Drug induced Pedro Specialist IENT VISIT, [facility] pain constipationRhe [facility]. 7 235 : Rohith EST Pain [place] (chief umatoid [address] [place], Clinic, complaint) arthritisPain [place], [place] .Referri [address] in left [place], ng [place], shoulderPain in [id number], Provi fredy: [place], right hipPain [place]. Faisal CAMACHO, in left tel:[phone] Will [place], [phone] [place] [address] [address] , [place] right ankle and [place], tel:+[phone] joints of right Minnea chiqui [phone] footOther s, [place], spondylosis, [address] cervical . regionOther tel:[phone] spondylosis, 5759423 lumbar regionRadiculop athy, cervical regionPostlamin ectomy syndrome, not elsewhere classifiedLong term (current) use of opiate analgesic OFFICE/OUTPAT [facility] low back Drug induced Sep-0 Pedro Specialist IENT VISIT, [facility] pain constipationRhe [facility]. 7 235 : Rohith EST Pain [place] (chief umatoid [address] Hien Henderson, Clinic, complaint) arthritisPain [place] .Referri [address] in right [place], ng [place], hipPain in left [id number], Provi fredy: [place], shoulderPain in [place]. Faisal [place], left kneePain tel:[phone] Will J, [phone] in right ankle [address]016 [address] , [place] and joints of [place], tel:[phone] right footOther Minnea chiqui [id number] spondylosis, [place], [place], cervical [address] regionOther . spondylosis, tel:[phone] lumbar [phone] regionRadiculop athy, cervical regionPostlamin ectomy syndrome, not elsewhere classifiedLong term (current) use of opiate analgesicEncoun ter for therapeutic drug level monitoring [facility] No Information Sep-0 Pedro Refer [facility] [address] Provider : Pain [place] [address] Faisal [place], [place], Will J, [address] [place], [address] [place], [id number], [place], [place]. [place], tel:[phone] s, [place], [phone] , [place] . tel: tel: [phone] [facility] lumbago Postlaminectomy Dulen Refe rring [facility] (chief syndrome, not 0- Lois. Prov ider: Pain [place] complaint) elsewhere 2 [facility] [email or web address], classified [place], Will J, [facility] [address] [place], [place], [place], [place], [id number], [place], [place]. [place], [place], [id number] tel:[phone] , [place] [address] . tel: tel: [phone] OFFICE/OUTPAT [facility] low back Pain in left [facility] Specialist IENT VISIT, [facility] Pain [facility] pain kneeDrug 0- [facility]. 7235 : R oy EST Pain [place] (chief induced [address] Hien Henderosn, Clinic, complaint) constipationRhe [place], [place].Referri [address] umatoid [place], ng [place], arthritisPain [id number], Provide r: [place], in left [place]. Faisal CAMACHO, shoulderPain in tel:[phone] Arnold l J, [phone] right hipPain 83034 [address] , [place] in right ankle [place], tel: and joints of [place] [phone] right footOther s, [place], spondylosis, [address] cervical . regionOther tel:2 spondylosis, 6644194 lumbar regionRadiculop athy, cervical regionPostlamin ectomy syndrome, not elsewhere classifiedLong term (current) use of opiate analgesic OFFICE/OUTPAT [facility] low back Drug induced [facility] Specialist IENT VISIT, [facility] pain constipationRhe 2- [facility]. 7 235 : Rohith EST Pain [place] (chief umatoid [address] Hien Henderson, Clinic, complaint) arthritisPain [place] .Referri [address] in left [place], ng [place], shoulderPain in [id number], Provi fredy: [place], right hipPain [place]. Faisal [place], in left tel:[phone] [place] J, [phone] [place] [address] [address] , [place] right ankle and [place], tel:+ joints of right Minnea chiqui [phone] footOther s, [place], spondylosis, [address] cervical . regionOther tel:+952 spondylosis, 5999065 lumbar regionRadiculop athy, cervical regionPostlamin ectomy syndrome, not elsewhere classifiedLong term (current) use of opiate analgesic OFFICE/OUTPAT [facility] low back Drug induced Pedro Specialist IENT VISIT, [facility] pain constipationRhe [facility]. 7 235 : Rohith EST Pain [place] (chief umatoid [address] Hien Henderson, Clinic, complaint) arthritisPain [place] .Referri [address] in left [place], ng [place], shoulderPain in [id number], Provi fredy: [place], right hipPain [place]. Faisal [place], in left tel:[phone] Will [place], [phone] [place] [address] [address] , [place] right ankle and [place], tel:+ joints of right Minnea chiqui [phone] footOther [place], [place], spondylosis, [address] cervical . regionOther tel:+2 spondylosis, 7589898 lumbar regionRadiculop athy, cervical regionPostlamin ectomy syndrome, not elsewhere classifiedLong term (current) use of opiate analgesic [facility] Radiculopathy, Balbuenaанна Garciari. Referring [facility] Surgery cervical region [address] Provid er: Pain Center [address] [facility], [place], Will J, [address] [place], [address] [place], [id number], [place], [place], [place]. [place], tel:[phone] s, [place], [phone] , [place] . tel:+ tel:[phone] OFFICE/OUTPAT [facility] low back Pain in left Pedro Specialist IENT VISIT, [facility] pain kneeRheumatoid [facility]. 72 35 : Rohith EST Pain [place] (chief arthritisPain [address] Hien Henderson , Clinic, complaint) in left [place].Refer ri [address] shoulderPain in DOUG, tracey Henderson, right hipPain 146470666, Provide r: [place], in right ankle [place]. Faisal [place], and joints of tel: Will J, [phone] right footOther 42624 [address] [facility] [place] spondylosis, [place], tel: cervical [place] [phone] regionOther s, [place], spondylosis, [address] lumbar . regionPostlamin tel: 52 ectomy [phone] syndrome, not elsewhere classifiedLong term (current) use of opiate analgesicRadicu lopathy, cervical regionDrug induced constipation OFFICE/OUTPAT [facility] low back Pain in left May- [facility] Specialist IENT VISIT, [facility] pain shoulderPain in [facility]. 7 235 : Rohith EST Pain [place] (chief right [address] [place] [facility], [facility], complaint) hipRheumatoid [place] .Referri [address] arthritisPain DOUG tracey [place], in left [id number], Provider: [place], kneePain in [place]. Faisal [place], right ankle and tel: Arnold l J, [phone] joints of right 88060 [address] [facility] [place] footOther [place], tel: spondylosis, [place] [phone] cervical s, [place], regionOther [address] spondylosis, . lumbar tel: regionPostlamin 1635453 ectomy syndrome, not elsewhere classifiedLong term (current) use of opiate analgesicEncoun ter for therapeutic drug level monitoring OFFICE/OUTPAT [facility] low back Pain in left Apr- [facility] Specialist IENT VISIT, [facility] pain shoulderPain in [facility]. 7 235 : Rohith EST Pain [place] (chief left kneePain [address] [place] [facility] , [facility], complaint) in right [place], [place].Refe rri [address] hipRheumatoid DOUG tracey Henderson, arthritisOther [id number], Provid er: [place], spondylosis, [place]. Faisal [place], lumbar tel: Will J, [phone] regionPostlamin 60525 [address] [facility] [place] ectomy [place], tel: syndrome, not [place] [phone] elsewhere s, [place], classifiedPain [address] in right ankle . and joints of tel:2 right footLong [id number] term (current) use of opiate analgesicOther spondylosis, cervical regionEncounter for therapeutic drug level monitoring OFFICE/OUTPAT [facility] low back Pain in left [facility] Specialist IENT VISIT, [facility] pain shoulderPain in [facility] 7 235 : Rohith EST Pain [place] (chief left kneePain [address] [place], [facility] , Clinic, complaint) in right [place].Refe [place]ri [address] hipCervicalgiaR DOUG, tracey [place], heumatoid [id number], Provider: [place] arthritisOther [place]. Faisal CAMACHO, spondylosis, tel: Will J , [phone] lumbar 03766 [address] , regionPostlamin [place], tel: ectomy [place] 08000567 syndrome, not [place], [place], elsewhere [address] classifiedPain . in right ankle tel: 2 and joints of 8117412 right footLong term (current) use of opiate analgesic OFFICE/OUTPAT [facility] low back Pain in left [facility] Specialist IENT VISIT, [facility] pain shoulderPain in [facility]. 7 235 : Rohith EST Pain [place] (chief left kneePain [address] [place], [facility] , Clinic, complaint) in right [place].Refe [place]ri [address] hipCervicalgiaR [place], tracey [place], heumatoid 038345158, Provider: [place], arthritisOther [place]. Faisal CAMACHO, spondylosis, tel: Will J , [phone] lumbar 62844 [address] , [place] regionPostlamin [place], tel: ectomy [place] 01693946 syndrome, not [place], [place], elsewhere [address] classifiedPain . in right ankle tel: 2 and joints of 6357238 right footLong term (current) use of opiate analgesic OFFICE/OUTPAT [facility] low back Other Pedro Speci alist IENT VISIT, [facility] pain spondylosis, [facility]. 7235 : Rohith EST Pain [place] (chief lumbar [address] [place], Hien, Clinic, complaint) [place]Pos[place], [place].Referri [address] ectomy [place], ng [place], syndrome, not [id number], Provide r: [place], elsewhere [place]. Faisal CAMACHO, classifiedPain tel:+ Will J, [phone] in right ankle 52051 [address] , [place] and joints of [place], tel:+ right footPain [place] 44807593 in left [place], [place], [place] [address] left kneePain . in right tel:+952 hipCervicalgiaR 7792187 heumatoid arthritisLong term (current) use of opiate analgesic OFFICE/OUTPAT [facility] low back Other [facility] Speci alist IENT VISIT, [facility] pain spondylosis, [facility] 7235 : Rohith EST Pain [place] (chief lumbar [address] [place], Hien, Clinic, complaint) regionPos[place], [place].Referri [address] ectomy [place], ng [place], syndrome, not [id number], Provide r: [place], elsewhere [place]. Faisal CAMACHO, classifiedPain tel: Will J, [phone] in right ankle 67176 [address] , [place] and joints of [place], tel:+ right footPain [place] 08096986 in left [place], [place], [place] [address] left kneePain . in right tel:+952 hipCervicalgiaR 8977312 heumatoid arthritisLong term (current) use of opiate analgesic OFFICE/OUTPAT [facility] low back Other [facility] Speci alist IENT VISIT, [facility] Pain [facility] pain spondylosis, [facility] 7235 : Rohith EST Pain [place] (chief lumbar [address] [place], Hien, Clinic, complaint) regionPos[place], [place].Referri [address] ectomy [place], ng [place], syndrome, not [id number], Provide r: [place], elsewhere [place]. Faisal CAMACHO, classifiedPain tel: Will J, [phone] in right ankle 67692 [address] , [place] and joints of [place], tel: right footPain [place] [phone] in left [place], [place], [place] [address] left kneePain . in right tel: hipCervicalgiaL 3596507 meghan term (current) use of opiate analgesicEncoun ter for therapeutic drug level monitoringRheum atoid arthritis OFFICE/OUTFLT [facility] low back Other Oct- [facility] Speci alist IENT VISIT, [facility] Pain [facility] pain spondylosis, [facility]. 7235 : Rohith EST Pain [place] (chief lumbar [address] [place] Hien, Clinic, complaint) [place], [place].Referri [address] ectomy [place], ng [place], syndrome, not [id number], Provide r: [place], elsewhere [place]. Faisal CAMACHO, classifiedPain tel: Will J, [phone] in right ankle 64629 [address] , [place] and joints of [place], tel: right footPain [place] [phone] in left [place], [place], [place] [address]91 48 left kneePain . in right tel: hipCervicalgiaL 6084067 meghan term (current) use of opiate analgesic OFFICE/OUTFLT [facility] low back Other [facility] Speci alist IENT VISIT, [facility] Pain [facility] pain spondylosis, [facility]. 7235 : Rohith EST Pain [place] (chief lumbar [address] [place] [facility], Clinic, complaint) regionLu[place], [place].Referri [address] ectomy [place], ng [place], syndrome, not [id number], Provide r: [place], elsewhere [place]. Faisal CAMACHO, classifiedPain tel: Will J, [phone] in right ankle 71270 [address] , [place] and joints of [place], tel: right footPain [place] [phone] in left [place], [place], [place] [address] left kneePain . in right tel: hipCervicalgiaL 1553227 meghan term (current) use of opiate analgesic OFFICE/OUTPAT [facility] low back Other Branden- [facility] Speci alist IENT VISIT, [facility] pain spondylosis, [facility]. [address]235 : Rohith EST Pain [place] (chief lumbar [address] Hien Henderson, Clinic, complaint) [place]Pos[place], [place].Referri [address] ectomy [place], ng [place], syndrome, not [id number], Provide r: [place], elsewhere [place]. Faisal CAMACHO, classifiedPain tel: Will J, [phone] in right ankle 67602 [address] , [place] and joints of [place], tel:+ right footPain [place] [phone] in left [place], [place], [place] [address] left kneePain . in right tel: hipCervicalgiaL 0716441 meghan term (current) use of opiate analgesic [facility] detention May- [facility] (current) use [facility] [address] Pain [place] of opiate [address] [place], Clinic, analgesicEncoun [place], [address] [place], [place], therapeutic [id number], [place], drug level [place]. [place], monitoring tel: [phone] [phone] , [place] tel: [phone] OFFICE/OUTPAT [facility] low back Other May- [facility] Speci ali IENT VISIT, [facility] Pain [facility] pain spondylosis, [facility]. 7235 : Rohith EST Pain [place] (chief lumbar [address] [place] Hien, Clinic, complaint) regionLu[place], [place].Referri [address] ectomy [place], ng [place], syndrome, not [id number], Provide r: [place], elsewhere [place]. Faisal CAMACHO, classifiedPain tel: Will J, [phone] in right ankle 14982 [address] , [place] and joints of [place], tel:+ right footPain [place] 40283266 in left [place], [place], [place] [address] left kneePain . in right tel:+ hipCervicalgiaL 2645961 meghan term (current) use of opiate analgesicEncoun ter for therapeutic drug level monitoring OFFICE VISIT, [facility] low back Other [facility] pain spondylosis, [facility]. 7235 : R oy TELEMEDICINE Pain [place] (chief lumbar [address] [place] [facility], Clinic, complaint) [facility]PosSt. [facility], [address] ectomy [place], [address] [place], syndrome, not [id number], 140, [place], elsewhere [place]. [place], classifiedPain tel:284 , [place] , [phone] in right ankle 59107 [address]. , [place] and joints of tel: tel: right footPain 0006711 Ref 27408416 in left erring shoulderPain in Provider : left kneePain Faisal in right Will J, hipCervicalgiaL [address] meghan term [place], (current) use [place] of opiate s, [place], analgesicEncoun [address] for . therapeutic tel: drug level [phone] monitoring OFFICE VISIT, [facility] low back Other [facility] pain spondylosis, [facility]. 7235 : R oy TELEMEDICINE Pain [place] (chief lumbar [address] [place] [facility], Clinic, complaint) regionPosSt. [facility], [address] ectomy [place], Rd [address] [place], syndrome, not [id number], 140, [place], elsewhere [place]. [place], classifiedPain tel:284 , [place] , [phone] in right ankle 52000 [address]. , [place] and joints of tel: tel:+ right footPain [phone] Ref 82300908 in left erring shoulderPain in Provider : left kneePain Faisal in right Will J, hipCervicalgiaL [address] meghan term [place], (current) use [place] of opiate [place], [place], analgesic [address] . tel:[phone] OFFICE/OUTPAT [facility] low back Other Pedro Speci alist IENT VISIT, [facility] pain spondylosis, 0- [facility]. [facility] : Rohith EST Pain [place] (chief lumbar [address] Hien Henderson, Clinic, complaint) regionPostlamin [place], [address] ectomy [place], [address] [place], syndrome, not [id number], 140, [place], elsewhere [place]. [place], classifiedPain tel:[phone] , [place] , [phone] in right ankle [address]105 [address]. , [place] and joints of tel: tel:+ right footPain 8488615 Ref 63653861 in left erring shoulderPain in Provider : left kneePain Faisal in right Will J, hipLong term [address] (current) use [place], of opiate [place] analgesicCervic s, [place], [place] [address] . 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 723 5 : Rohith EST Pain [place] (chief of opiate [address] Hien Henderson, Clinic, complaint) analgesicPostla [place], [address] minectomy [place], Rd [address] [place], syndrome, not [id number], 140, [place], elsewhere [place]. [place] DOUG, classifiedPain tel:284 , [place] , [phone] in right ankle 99076 [address]. , [place] and joints of tel: tel:+ right footPain 9840529 Ref [id number] in left erring shoulderOther Provider: spondylosis, Faisal lumbar Will J, regionPain in [address] left kneePain [place], [place], [address] . tel:[phone] OFFICE VISIT, [facility] low back Postlaminectomy Branden- Fransisco flores Specialist EST [facility] pain syndrome, not [facility] : Rohith TELEMEDICINE Pain [place] (chief elsewhere [address] Narendra Henderson r, Clinic, complaint) classifiedPain [place], [address] in right ankle [place], Rd [address] [place], and joints of [id number], 140, [place], right footPain [place]. Margot mclaughlin [place], in left tel:[phone] , [place], [phone] shoulderLong 25475 [address]346. , [place] term (current) tel: tel: use of opiate [id number] ef [id number] analgesicOther erring spondylosis, Provider: lumbar Faisal De La [place] in Jaspreet Calderón, left kneePain [address] [place], [address] . tel:[phone] OFFICE VISIT, [facility] low back Postlaminectomy May- Pedro Specialist EST [facility] pain syndrome, not [facility] : Rohith TELEMEDICINE Pain (chief elsewhere [address] Narendra Henderson, Clinic, complaint) classifiedLow [place], [address] back painPain [place], Rd [address] [place], in right ankle [id number], 140, [place], and joints of [place]. [place], right footLong tel:[phone] , [place] , [phone] term (current) 62155 33067. , [place] use of opiate tel: tel: analgesicPain [id number] ef [id number] in left erring shoulder Provider: Faisal Calderón, [address] [place], [address] . tel:[phone] OFFICE/OUTPAT [facility] low back Postlaminectomy Apr- Fransisco flores Specialist IENT VISIT, [facility] pain syndrome, not [facility] 723 5 : Rohith EST Pain [place] (chief elsewhere [address] Hien Henderson, Clinic, complaint) classifiedLow [place], [address] back painLong [place], Rd [address] [place], term (current) [id number], 140, [place], use of opiate [place]. [place], analgesicPain tel:+[phone] , [place], [phone] in right ankle 43721 [address]150. , [place] and joints of tel: tel: right foot [phone] [phone] erring Provider: Faisal Calderón, [address] [facility] [place], [address] . tel:[phone] OFFICE/OUTPAT [facility] low back Postlaminectomy Dec-2 Fransisco flores Specialist IENT VISIT, [facility] pain syndrome, not 7-201 [facility] 723 5 : Rohith EST Pain [place] (chief elsewhere 9 [facility], [facility], Clinic, complaint) classifiedLow [place], [address] back painPain [place], Rd [address] [place], in right [id number], 140, [place], handLong term [place]. [place] CAMACHO, (current) use tel:284 , [place], [phone] of opiate 93289 92477. , [place] analgesic tel: tel: [phone] [phone] erring Provider: Faisal Calderón, [address] [facility] [place], [address] . 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 723 5 : Rohith EST Pain [place] (chief of opiate 9 [facility], [facility], Clinic, complaint) analgesicPostla [place], [address] minectomy [place], [address], syndrome, not [id number], 140, [place], elsewhere [place]. Lakesha CAMACHO, classifiedLow tel:284 , [place], [id number] back pain [phone]. , [place] tel: tel: [phone] [phone] erring Provider: Faisal Calderón, [address] [facility] [place], [address] . tel:[phone] OFFICE/OUTPAT [facility] low back Postlaminectomy Sep-3 Fransisco flores Specialist IENT VISIT, [facility] pain syndrome, not 0-201 [facility]. 723 5 : Rohith EST Pain [place] (chief elsewhere [address] [place], Hien, Clinic, complaint) classifiedLow [place], [address] back painLong [place], Rd [address] [place], term (current) [id number], 140, [place], use of opiate [place]. Lakesha CAMACHO, analgesic tel:+[phone] , DOUG, [phone]. , [place] tel: tel: [phone] [phone] erring Provider: Faisal Calderón, [address] [facility] [place], [address] . tel:[phone] OFFICE/OUTPAT [facility] low back Pain in right Jose-0 Pedro Specialist IENT VISIT, [facility] Pain [facility] pain handLow back 1- [facility]. 7235 : Rohith EST Pain [place] (chief painPostlaminec 9 [facility] [place], Beanell er, Clinic, complaint) pricilla syndrome, [place], 7 [address] not elsewhere [place], Rd [address], classifiedEncou [id number], 140, [place], nter for [place]. Lakesha CAMACHO, therapeutic tel:+[phone] , DOUG, [id number] drug level [phone]. , [place] monitoringLong tel: 2 tel: term (current) [id number] Ref [id number] use of opiate erring analgesic Provider: Faisal Calderón, [address] [facility] [place], [address] . tel:[phone] OFFICE/OUTPAT [facility] low back Postlaminectomy Apr-2 Kanga s Specialist IENT VISIT, [facility] pain syndrome, not 9-201 [facility]. 723 5 : Rohith EST Pain [place] (chief elsewhere 9 [address] [place], Hien, Clinic, complaint) classifiedLow [place], [address] back painLong [place], Rd [address], term (current) [id number], 140, [place], use of opiate [place]. Lakesha CAMACHO, analgesicPain tel:[phone] , DOUG, [phone] in right hand [phone]. , [place] tel: tel: [phone] [phone] erring Provider: Faisal Calderón, [address] [facility] [place], [address] . tel:[phone] OFFICE/OUTPAT [facility] low back Intervertebral Mar-0 Pedro Specialist IENT VISIT, [facility] pain disc disorders 4-201 [facility]. 72 35 : Rohith EST Pain [place] (chief with 9 [facility] Bean Hendersoneller, Clinic, complaint) myelopathy, [place], [address] lumbar [place], Rd [address], regionLow back [id number], 140, [place], painLong term [place]. Lakesha CAMACHO, (current) use tel:284 , DOUG, [phone] of opiate [id number] 01996. , [place] analgesic tel: tel: [phone] erring Provider: Faisal Calderón, [address] [facility] [place], [address] . tel:[phone] OFFICE/OUTPAT [facility] low back Postlaminectomy Dec-2 Kanga s Specialist IENT VISIT, [facility] pain syndrome, not 8-201 [facility]. 723 5 : Rohith EST Pain [place] (chief elsewhere 8 [facility] Santiago Hien, Clinic, complaint) classifiedInter [place], [address] vertebral disc [place], Rd [address] [place], disorders with [id number], 140, [place], myelopathy, [place]. Lakesha CAMACHO, lumbar tel:284 , [place], [phone] regionLow back [phone]. , [place] pain tel: tel: [phone] erring Provider: Faisal Calderón, [address] [facility] [place], [address] . tel:[phone] OFFICE/OUTPAT [facility] low back Postlaminectomy Nov-0 Kanga s Specialist IENT VISIT, [facility] pain syndrome, not 2-201 [facility]. 723 5 : Rohith EST Pain [place] (chief elsewhere 8 [facility] [place], Hien, Clinic, complaint) classifiedInter [place], [address] vertebral disc [place], [place], disorders with [id number], [address] [place], myelopathy, [place]. 306, [place], lumbar tel:+4 [place], [phone] regionLow back [phone] [phone]. , [place] painLong term tel: tel: (current) use [id number] ef [phone] of opiate erring analgesic Provider: Faisal Calderón, [address] [facility] [place], [address] . tel:[phone] OFFICE/OUTPAT [facility] low back Postlaminectomy Kasey mclaughlin Specialist IENT VISIT, [facility] pain syndrome, not 8-201 Chuck. 14 55 : Rohith EST Pain [place] (chief elsewhere [address] [facility] [address] 11 [facility], Clinic, complaint) classifiedLow [place] [address], [address] back pain [place], Haven A ve [place], [place], S [address] [place], [id number], 306, [place], [place]. [place], [id number] tel: [phone]. , [place] [address] tel: tel: [phone] [phone] erring Provider: Faisal Calderón, [address] [place], [address] . tel:[phone] OFFICE/OUTPAT [facility] low back Low back Aug-0 Pedro Spec ialist IENT VISIT, [facility] pain painPostlaminec 5-201 [facility]. 7 235 : Rohith EST Pain [place] (chief pricilla syndrome, [address] [place], Narendra r, Clinic, complaint) not elsewhere [place], 73 73 [address] classified [place], [place], [id number], [address] [place], [place]. 306, [place], tel:+4 [place], [place], [phone] [phone]. , [place] tel: tel: [phone] erring Provider: Faisal Calderón, [address] [place], [address] . tel:[phone] OFFICE/OUTPAT [facility] low back Low back June-0 Pedro Spec ialist IENT VISIT, [facility] pain painPostlaminec 3 [facility]. 7 235 : Rohith EST Pain [place] (chief pricilla syndrome, [address] [place], Moelle r, Clinic, complaint) not elsewhere [place], 73 73 [address] classified [place]OU[place], Haven [place], [id number], [address] [place], [place]. 306, [place], tel:[phone] [place], [phone] [phone]. , [place] tel: tel:[phone] erring Provider: Faisal Calderón, [address] [place], [address] . tel:[phone] OFFICE/OUTPAT [facility] low back Low back Apr-0 Pedro Spec ialist IENT VISIT, [facility] pain painPostlaminec 6-201 [facility]. 7 235 : Rohith EST Pain [place] (chief pricilla syndrome, [address] [place], Moelle r, Clinic, complaint) not elsewhere [place], 73 73 [address] classified DOUG, Haven [place], [id number], [address] [place], [place]. 306, [place], tel:[phone] DOU[place], [phone] 29716 51944. , [place] tel: tel:[phone] erring Provider: Faisal Calderón, [address] [place], [address] . tel:[phone] OFFICE/OUTPAT [facility] low back Low back Dennis-0 Pedro Spec ialist IENT VISIT, [facility] pain painPostlaminec 3- [facility]. 7 235 : Rohith EST Pain [place] (chief pricilla syndrome, [address] [place], Moelle r, Clinic, complaint) not elsewhere [place], 73 73 [address] classified DOUG, Haven [place], [id number], [address] [place], [place]. 306, [place], tel:[phone] [place], [place], [phone] 85656 30521. , [place] tel: tel: [phone] erring Provider: Faisal Calderón, [address] Shiraz [place], [address] . tel:[phone] OFFICE/OUTPAT [facility] low back Low back Nov-0 Pedro Spec ialist IENT VISIT, [facility] pain painPostlaminec 6- [facility]. 7 235 : Rohith EST Pain [place] (chief pricilla syndrome, 7 [address] [place], Narendra r, Clinic, complaint) not elsewhere [place], 73 73 [address] classified DOUG, Haven Dimairis [place], [id number], [address] [place], [place]. 306, [place], tel:[phone] DOU[place], [phone] [phone]. , [place] tel: tel: [phone] [phone] erring Provider: Faisal Calderón, [address] Shiraz [place], [address] . tel:[phone] OFFICE/OUTPAT [facility] low back Low back Sep-0 Pedro Spec ialist IENT VISIT, [facility] pain painPostlaminec 8 [facility]. 7 235 : Rohith EST Pain [place] (chief pricilla syndrome, 7 [address] [place], Narendra r, Clinic, complaint) not elsewhere [place], 73 73 [address] cecille CAMACHO, Haven Dimairis [place], [id number], [address] [place], [place]. 306, [place], tel:[phone] [place]OU[place], [phone] [phone] 93918. , [place] tel: tel: [phone] [phone] erring Provider: Faisal Calderón, [address] [place], [address] . tel:[phone] OFFICE/OUTPAT [facility] low back Low back Jose-0 Pedro Spec ialist IENT VISIT, [facility] pain painPostlaminec 7-201 [facility]. 7 235 : Rohith EST Pain [place] (chief prciilla syndrome, [address] [place], Moelle r, Clinic, complaint) not elsewhere [place], 73 73 [address] classified DOUG, Haven Clara [place], [id number], S [address] [place], [place]. 306, [place], tel:[phone] D[place] Coleman, [phone] 07670 41957. , [place] tel:+ tel:[phone] [phone] erring Provider: Faisal Calderón, [address] [place] JuniorDOUG brown, [address] . tel:[phone] OFFICE/OUTPAT [facility] low back Low back pain May-0 Pedro Specialist IENT VISIT, [facility] pain 9-201 [facility]. 7235 : Ro y EST Pain [place] (chief 7 VtHien Jones, Clinic, complaint) [place], [address] [place]OU[place], Haven [place], [id number], [address] [place], [place]. 306, [place], tel:[phone] [place], [phone]. , [place] tel:+832 tel:[phone] erring Provider: Faisal Calderón, [address] [place] JuniorDOUG brown, [address] . tel:[phone] OFFICE/OUTPAT [facility] low back Low back pain Mar-1 Pedro Specialist IENT VISIT, [facility] pain 0-201 [facility]. 7235 : Ro y EST Pain [place] (chief 7 [facility] Hien Henderson, Clinic, complaint) [place], [address]373 [address] DOUG, Haven Clara [place], [id number], S [address] [place], [place]. 306, [place], tel:[phone] DOU[place], [phone]. , [place] tel:+[phone] tel:[phone] erring Provider: Faisal Calderón, [address] [place], [address] . tel:[phone] OFFICE/OUTPAT [facility] [place] low back Low back pain Dennis-0 Pedro Specialist IENT VISIT, [facility] pain 3-201 [facility]. 7235 : Ro y EST Pain [place] (chief [address] [place], Hien, Clinic, complaint) [place], [address]373 [address] [place], [place], [id number], S [address] [place], [place]. 306, [place], tel:[phone] DOU[place] Coleman, [phone] [phone] [phone]. , [place] tel:+ tel: [phone] [phone] erring Provider: Faisal Calderón, [address] [facility] [place], [address] . tel:[phone] OFFICE/OUTPAT [facility] low back Low back Nov-0 Pedro Spec ialist IENT VISIT, [facility] Pain [facility] pain painPostlaminec 4201 [facility]. 7 235 : Rohith EST Pain [place] (chief pricilla syndrome, 6 [address] [place], Beanelle r, Clinic, complaint) not elsewhere [place], 73 73 [address] classified [place], Haven Elizabeth [place], [id number], [address] [place], [place]. 306, [place], tel:[phone] D[place] Coleman, [phone]. , [place] tel: tel: [phone] [phone] erring Provider: Faisal Calderón, [address] [place], [address] . tel:[phone] OFFICE/OUTPAT [facility] low back Low back Sep-0 Pedro Spec ialist IENT VISIT, [facility] Pain [facility] pain painPain in 8 [facility]. 7235 : Rohith EST Pain [place] (chief left shoulder 6 OhHien Jones , Clinic, complaint) [place], [address] [place], [place], [id number], [address] [place], [place]. 306, [place], tel:[phone] DOU[place] Coleman, [phone]. , [place] tel: tel: [phone] [phone] erring Provider: Faisal Calderón, [address] [place], [address] . tel:[phone] OFFICE/OUTPAT [facility] low back Low back Aug- Pedro Spec ialist IENT VISIT, [facility] pain painPain in [facility]. 7235 : Rohith EST Pain [place] (chief left 6 [address] [place], Hien, Clinic, complaint) shoulderPain in [place], 7373 [address] right ankle and [place], [place], joints of right [id number], S Priscilla te [place], foot [place]. 306, [place], tel:[phone] [place], [phone]. , [place] tel: tel: [phone] [phone] erring Provider: Faisal Calderón, [address] [place], [address] . tel:[phone] OFFICE/OUTPAT [facility] low back Low back June- Pedro Spec ialist IENT VISIT, [facility] pain painPain in [facility]. 7235 : Rohith EST Pain [place] (chief left shoulder 6 [address] [place], Hien , Clinic, complaint) [place], [address] [place], [place], [id number], [address] [place], [place]. 306, [place], tel:[phone] [place], [phone] 89829 67027. , [place] tel: tel:[phone] [phone] erring Provider: Faisal Calderón, [address] [place], [address] . tel:[phone] OFFICE/OUTPAT [facility] low back Low back Apr- Pedro Spec ialist IENT VISIT, [facility] Pain [facility] pain painPain in [facility]. 7235 : Rohith EST Pain [place] (chief left shoulder [address] [place], Hien , Clinic, complaint) [place], [address] [place], [address] [place], [id number], [address] [place], [place]. 306, [place], tel:[phone] [place], [phone] [phone] 54446. , [place] tel:+ tel:[phone] erring Provider: Faisal Calderón, [address] [place], [address] . tel:[phone] OFFICE/OUTPAT [facility] low back Low back Dennis- [facility] Spec ialist IENT VISIT, [facility] pain painPain in 2 [facility]. 7235 : Rohith EST Pain [place] (chief right ankle and 6 [address] [place], Olman er, Clinic, complaint) joints of right [place], [address]373 [address] footPain in [place], [place], left shoulder [id number], S [address] [place], [place]. [address], [place], tel:[phone] DOU[place] Coleman, [phone]. , [place] tel:+ tel: [phone] [phone] erring Provider: Faisal Calderón, [address] [place], [address] . tel:[phone] OFFICE/OUTPAT [facility] low back Low back Nov-0 [facility] Spec ialist IENT VISIT, [facility] pain painPostlaminec [facility]. 7 235 : Rohith EST Pain [place] (chief pricilla syndrome, [address] [place], Moelle r, Clinic, complaint) not elsewhere [place], 73 73 [address] classified [place], [place], [id number], S Suite [place], [place]. 306, [place], tel:[phone] [place], DOUG, [id number] [phone]. , [place] tel:+ tel:[phone] OFFICE/OUTPAT [facility] low back Ankylosis of Sep- [facility] Specialist IENT VISIT, [facility] pain ankle and foot [facility]. 72 35 : Rohith EST Pain [place] (chief jointDegenerati 5 [address] [place], Olman er, Clinic, complaint) on of lumbar or [place], 7373 [address] lumbosacral [place], Haven [address] [place], intervertebral [id number], S [address] [place], discEnthesopath [place]. 306, [place], y of hip tel: [place], [place], [phone] regionIntervert [phone]. , [place] ebral disc tel: tel: disorder with [phone] myelopathy, lumbar regionLumbagoPa in in joint involving ankle and footPain in joint involving lower legPostlaminect nikita syndrome of lumbar regionPain in joint involving shoulder region OFFICE/OUTPAT [facility] low back Ankylosis of Pedro Specialist IENT VISIT, [facility] pain ankle and foot 6-201 [facility]. 72 35 : Rohith EST Pain [place] (chief jointDegenerati 5 [facility] Olman Henderson er, Clinic, complaint) on of lumbar or [place], 7373 7235 [facility] lumbosacral [place], Haven [address] [place], intervertebral [id number], S [address] [place], discEnthesopath [place]. 306, [place], y of hip tel: [place], [place]OU[place], [phone] regionIntervert [phone]. , [place] ebral disc tel: tel: disorder with [phone] myelopathy, lumbar regionLumbagoPa in in joint involving ankle and footPain in joint involving lower legPostlaminect nikita syndrome of lumbar region OFFICE/OUTPAT [facility] low back Acquired Pedro Spec ialist IENT VISIT, [facility] pain musculoskeletal 3-201 [facility]. 7 235 : Rohith EST Pain [place] (chief deformity of 5 [facility] Hien Henderson, Clinic, complaint) unspecified [place], 7373 7235 [facility] siteAnkylosis [place], Haven copeland [place], of ankle and [id number], S [address] [place], foot [place]. 306, [place], jointDegenerati tel: [place], [place], [phone] on [place] [phone] 24871. , [place] lumbosacral tel: tel: intervertebral [phone] discEnthesopath y of hip regionIntervert ebral disc disorder with myelopathy, lumbar regionLumbagoPa in in joint involving ankle and footPain in joint involving lower legPostlaminect nikita syndrome of lumbar region OFFICE/OUTPAT [facility] low back Ankylosis of Pedro Specialist IENT VISIT, [facility] pain ankle and foot 8-201 [facility]. 72 35 : Rohith EST Pain [place] (chief jointDegenerati 5 OhOlman Jones, Clinic, complaint) on of lumbar or [place], 7373 [address] lumbosacral [place], Haven [address] [place], intervertebral [id number], [address] [place], discEnthesopath [place]. 306, [place], y of hip tel: [place], [place], [phone] regionIntervert [phone] [phone]. , [place] ebral disc tel: tel: disorder with [phone] myelopathy, lumbar regionLumbagoPa in in joint involving ankle and footPain in joint involving lower legPostlaminect nikita syndrome of lumbar region OFFICE/OUTPAT [facility] low back Degeneration of Kangharley s Specialist IENT VISIT, [facility] pain lumbar or 6-201 [facility]. 7235 : Rohith EST Pain [place] (chief lumbosacral 5 [address] Hien Henderson, Clinic, complaint) intervertebral [place], 7 373 [address] discEnthesopath [place], Haven [address] [place], y of hip [id number], [address] [place], regionIntervert [place]. 306, [place], ebral disc tel: [place], M N, [phone] disorder with [phone]. , [place] myelopathy, tel: tel: lumbar [phone] regionLumbagoPa in in joint involving ankle and footPain in joint involving lower legPostlaminect nikita syndrome of lumbar regionAnkylosis of ankle and foot joint OFFICE/OUTPAT [facility] Back Pain Ankylosis of [facility] Specialist IENT VISIT, [facility] (chief ankle and foot 0-201 [facility]. 72 35 : Rohith EST Pain [place] complaint) jointDegenerati 4 [address] Bean Henderson, Clinic, on of lumbar or [place], 737 3 [address] lumbosacral [place], Haven [address] [place], intervertebral [id number], S [address] [place], discEnthesopath [place]. 306, [place], y of hip tel: DOUG Coleman, [phone] regionIntervert [phone]. , [place] ebral disc tel: tel: disorder with [phone] myelopathy, lumbar regionLumbagoPo stlaminectomy syndrome of lumbar region OFFICE/OUTPAT [facility] back pain Postlaminectomy Carpenter as Specialist IENT VISIT, [facility] (chief syndrome of [facility]. 7235 : Rohith EST Pain [place] complaint) lumbar 4 [address] Hien Henderson, Clinic, regionPain in [place], [address] joint involving [place], [place], ankle and [id number], [address] [place], footLumbago [place]. [place], [place], tel: DOUG Coleman, [phone]. , [place] tel: tel: [phone] OFFICE/OUTPAT [facility] low back Postlaminectomy Monico Specialist IENT VISIT, [facility] pain syndrome of Ayana. : Rohith EST Pain [place] (chief lumbar 4 [address] Hien, Clinic, complaint) regionPain in [place], [address] joint involving [place], F jatin Clara Henderson, ankle and foot [place], [address] Suite [place], [id number], 306, [place], [place]. [place], [place], [address] tel: [phone]. , [place] [address] tel: tel: [phone] OFFICE/OUTPAT [facility] back and Pain in joint Pedro Specialist IENT VISIT, [facility] right foot involving ankle [facility] . 7235 : Rohith EST Pain [place] pain and footLumbago 4 [address] Olman Henderson er, Clinic, (chief [place], 7373 [address] complaint) [place], [place], [id number], [address] [place], [place]. 306, [place], tel:[phone] [place], [place], [phone] [phone] [phone]. , [place] tel: tel:[phone] OFFICE/OUTPAT [facility] back and Pain in joint Pedro Specialist IENT VISIT, [facility] right foot involving ankle 3-201 [facility] . 7235 : Rohith EST Pain [place] pain and 4 [address] Hien Henderson, Clinic, (chief footLumbagoPain [place], 737 3 7235 [address] complaint) in joint [place], [place], involving lower [id number], [address] [place], leg [place]. [place], [place], tel:[phone] [place], [place], [phone]. , [place] tel: tel: [phone] OFFICE/OUTPAT [facility] right foot Pain in joint Kanga s Specialist IENT VISIT, [facility] pain involving ankle 4-201 [facility]. 7 235 : Rohith EST Pain [place] (chief and footLumbago 4 [address] Olman Henderson er, Clinic, complaint) [place], 7373 [address] low back [place], [place], pain [id number], [address] [place], (chief [place]. 306, [place], complaint) tel:[phone] [place], M N, [id number] [phone]. , [place] tel: tel:[phone] [facility] No Information Will Faisal. [facility] 8-201 [address] Pain [place] 4 [place], Clinic, [place], [address] [place], [place], [id number], [place], [place], tel:[phone] 36440 , [place] tel:[phone] OFFICE/OUTPAT [facility] right foot Pain in joint Will Faisal. Specialist IENT VISIT, [facility] pain involving ankle 3-201 7235 [address] s : Rohith EST Pain [place] (chief and foot 4 Bean Hendersoneller, Clinic, complaint) [place], [address] [place], Haven Clara [place], [id number], S Suite [place], [place]. 306, [place], tel:[phone] [place], [place], [phone]. , [place] tel: tel: [phone] [place] [address] right foot Pain in joint No Spe cialist [facility] pain involving ankle 2-201 Information : Rohith Pain [place] (chief and foot 3 Hien, Clinic, complaint) [address] Haven Henderson, [address] [place], 306, [place], [place], [place], [id number] 03112. , [place] tel: tel: [phone] OFFICE/OUTPAT [facility] right foot Pain in joint Sep- No Specialist IENT VISIT, [facility] pain involving ankle 1- Informat ion : [facility] [place] (chief and foot 3 [place], Clinic, complaint) [address], [address] [place], [address], [place], [place], [place], [id number]. , [place] tel: tel: [phone] OFFICE/OUTPAT [facility] right foot Pain in joint No Specialist IENT VISIT, [facility] pain involving ankle 6 Informat ion : Rohith [facility] [place] (chief and foot 3 [place], Clinic, complaint) [address] [place], [address] [place], [address], [place], [place], [place], [id number]. , [place] tel: tel: [phone] OFFICE/OUTPAT [facility] right foot Pain in joint No Specialist IENT VISIT, [facility] pain involving ankle 9 Informat ion : [facility] [place] (chief and 3 [place], Clinic, complaint) footDegeneratio [address] of lumbar or [place], lumbosacral [address] [place], intervertebral [address], [place], disc [place], [id number]. , [place] tel: tel: [phone] OFFICE/OUTPAT [facility] right foot Pain in joint No Specialist IENT VISIT, [facility] pain involving ankle 0-201 Informat ion : [facility] [place] (chief and foot 3 [place], Clinic, complaint) [address] [place], [address], [place], [place], [place], [id number]. , [place] tel: tel: [phone] OFFICE/OUTPAT [facility] right foot Pain in joint No Specialist IENT VISIT, [facility] pain involving ankle 1-201 Informat ion : Rohith [facility] [place] (chief and foot 2 [place], Clinic, complaint) [address] [place], [address], [place], [place], [id number]. , [place] tel: tel: [phone] OFFICE/OUTPAT [facility] right foot Pain in joint No Specialist IENT VISIT, [facility] pain involving ankle 4-201 Informat ion : Rohith [facility] [place] (chief and foot 2 [place], Clinic, complaint) [address] [place] [address], [address] [place], [address], [place], [place], [id number]. , [place] tel: tel: [phone] OFFICE/OUTPAT Twin [facility] right foot Pain in joint Will Faisal. IENT VISIT, [facility] pain involving ankle 2-201 [address] [facility] [place] (chief and foot 2 [place], Clinic, complaint) [place], [address] [place], [id number], [place], tel:[phone] , [place] tel: [phone] OFFICE/OUTPAT [facility] right foot Pain in joint Will Faisal. IENT VISIT, [facility] pain involving ankle 7-201 [address] EST [facility] [place] (chief and foot 2 [place], Clinic, complaint) [place], [address] [place], [id number], [place], tel:[phone] , [place] tel: [phone] OFFICE/OUTPAT [employer] (formerly [employer]) [facility] right foot Pain in joint Will Faisal. IENT VISIT, [facility] pain involving ankle 7- [address] EST [facility] [place] (chief and foot 2 [place], Clinic, complaint) [place], [address] [place], [place], [id number], [place], [place], tel:[phone] , [place] tel:[phone] OFFICE/OUTPAT [employer] ([employer]) [facility] right foot Pain in joint Will Faisal. IENT VISIT, [facility] pain involving ankle 7- [address] EST Pain [place] (chief and 2 [place], Clinic, complaint) footEnthesopath [place], [address] of hip region [place] CAMACHO, [id number], [place], [place], tel:[phone] , [place] tel: [phone] OFFICE/OUTPAT [employer] (formerly [employer]) [facility] right foot Pain in joint Will Faisal. IENT VISIT, [facility] pain involving ankle 0-201 [address] EST [facility] [place] (chief and foot 1 [place], Clinic, complaint) [place], [address] [place], [place], [id number], [place], tel:[phone] , [place] tel: [phone] OFFICE/OUTPAT [employer] ([employer]) [facility] right foot Pain in joint Will Faisal. IENT VISIT, [facility] pain and involving ankle 4-201 [address] EST Pain [place] low back and 1 [place], Clinic, pain footInterverteb [place], [address] (chief ral disc [place], [place], complaint) disorder with [id number], [place], myelopathy, [place], lumbar region tel:[phone] , [place] tel: [phone] OFFICE/OUTPAT [employer] ([employer]) [facility] low back Intervertebral Aug Will Harley dorman. IENT VISIT, [facility] pain disc disorder - [address] EST Pain [place] (chief with 1 [place], Clinic, complaint) myelopathy, [place], [address] right foot lumbar [place], [place], pain regionPain in [id number], [place], (chief joint involving [place], complaint) ankle and foot tel:[phone] , [place] tel:[phone] OFFICE/OUTPAT [employer] ([employer]) [facility] right foot Pain in joint Will Faisal. IENT VISIT, [facility] pain involving ankle [address] EST Pain [place] (chief and 1 [place], Clinic, complaint) footInterverteb [place] [address] [address] low back ral disc [place], [place], pain disorder with [id number], [place], (chief myelopathy, [place], complaint) lumbar region tel:[phone] , [place] tel: [phone] OFFICE/OUTPAT [employer] (formerly [employer]) [facility] right foot Pain in joint Will Faisal. IENT VISIT, [facility] pain involving ankle [address] EST [facility] [place] (chief and 1 [place], Clinic, complaint) footAcquired [place] [address] [address] musculoskeletal [place], [place], deformity of [id number], [place], unspecified [place], site tel:[phone] , [place] tel: [phone] OFFICE/[employer] [facility] right foot Acquired Will Noah fish. IENT VISIT, [facility] pain musculoskeletal [address] EST Pain [place] (chief deformity of 1 [place], Clinic, complaint) unspecified [place] [address] [address] sitePain in [place], [place], joint involving [id number], [place], ankle and foot [place], tel:[phone] , [place] tel: [phone] OFFICE/OUTPAT [employer] (formerly [employer]) [facility] right foot Pain in joint Will Faisal. IENT VISIT, [facility] pain involving ankle [address] EST Pain [place] (chief and 0 [place], Clinic, complaint) footAcquired [place] [address] [address] musculoskeletal [place], [place], deformity of [id number], [place], unspecified [place], site tel:[phone] , [place] tel: [phone] OFFICE/OUTPAT [facility] right foot Acquired Will Noah moulton IENT VISIT, [facility] pain musculoskeletal 4- [address] EST [facility] [place] (chief deformity of 0 [place], Clinic, complaint) unspecified [place] [address] [address] sitePain in [place], [place], joint involving [id number], [place], ankle and foot [place], tel:[phone] , [place] tel: [phone] OFFICE/OUTPAT [facility] right foot Acquired Will Noah moulton IENT VISIT, [facility] pain musculoskeletal 5- [address] EST Pain [place] (chief deformity of 0 [place], Clinic, complaint) unspecified [place] [address] [address] sitePain in [place], [place], joint involving [id number], [place], ankle and [place], footAnkylosis tel:[phone] of ankle and [address] , [place] foot joint tel: [phone] OFFICE/OUTPAT [facility] right foot Pain in joint Will Faisal. IENT VISIT, [facility] pain involving ankle 3-201 [address] EST Pain [place] (chief and 0 [place], Clinic, complaint) footAcquired [place] [address] [address] musculoskeletal [place], [place], deformity of [id number], [place], [place], site tel:[phone] , [place] tel: [phone] [facility] right foot Acquired Will Faisal. [facility] pain musculoskeletal 7 [address] [place] (chief deformity of 0 [place], Clinic, complaint) unspecified [place] [address] [address] [place], [place], joint involving [id number], [place], ankle and foot [place], tel:[phone] , [place] tel: [phone] OFFICE/OUTPAT [facility] foot pain Pain in joint Will Harley dorman. IENT VISIT, [facility] (chief involving ankle 4-201 [address] EST Pain [place] complaint) and 0 [place], Clinic, footAcquired [place], [address] musculoskeletal [place], [place], deformity of [id number], [place], [place], siteAnkylosis tel:[phone] of ankle and [address] , [place] foot jointViral tel: [phone] OFFICE/OUTPAT [facility] right foot Pain in joint Will Faisal. IENT VISIT, [facility] pain involving ankle 0-200 [address] EST [facility] [place] (chief and 9 [place], Clinic, complaint) footAcquired [place], [address] [place]culoskeletal [place], [place], deformity of [id number], [place], [place], siteAnkylosis tel:[phone] of ankle and [address] , [place] foot joint tel: [phone] [facility] Foot pain Pain in joint Will Faisal. [facility] (chief involving ankle 0-200 [address] [place] complaint) and 9 [place], Clinic, footAcquired [place], [address] musculoskeletal [place], [place], deformity of [id number], [place], [place], site tel:[phone] , [place] tel: [phone] [facility] right foot Ankylosis of Will Faisal. [facility] pain ankle and foot 6-200 [address] [place] (chief joint 9 [place], Clinic, complaint) [place], [address] [place], [place], [id number], [place], [place], tel:[phone] , [place] tel: [phone] Family History Family Member Type Diagnosis Age At Onset Mother Problem (finding) back pain Payers Payer name Insurance type Covered green party ID Authorization(s ) [facility] MedicareComplete Replacement 16 [id number] Social History Type Description Quantity Date Captured Comments Sex Female Smoking Status No Information Chief Complaint And Reason For Visit No Information Reason For Referral Reason For Referral No Information Plan Of Treatment Date Type Action Status Goal FIT-DNA. Due on due Goal PHQ-9. Due on due Goal FIT. Due on due Goal ALT (SGPT). Due on d ue Goal PROJECT LANDSCAPE ARCHITECT Paperwork. Due on due Goal Weight. Due on due Goal UDT. Due on due Goal CT-Colonography. Due on due Goal Update Social History. Due on No due Goal Zoster vaccine (1st). Due on Dec due Goal Hepatitis C screening. Due on No due Goal Review Allergy List. Due on due Goal Tobacco Use. Due on due Goal Creatinine. Due on d ue Goal Lipid panel. Due on due Goal OARS. Due on due Goal Medication Reconciliation. Due o n due Goal Height. Due on due Goal TAX MANAGER PUBLIC Scanned. Due on due Goal AST (SGOT). [...] Medication Reconciliation. Due o n due Goal TAX MANAGER PUBLIC Scanned. Due on due Goal Update Social History. Due on Oc due Goal Zoster vaccine (). Due on Nov due Goal ALT (SGPT). Due on d ue Goal CT-Colonography. Due on due Goal Unhealthy drug use screening. Du e on due Goal FIT. Due on due Goal PROJECT LANDSCAPE ARCHITECT Paperwork. Due on due Goal PHQ-9. Due on due Goal OARS. Due on due Goal Tobacco Use. Due on due Goal Update Social History. Due on Se due Goal Zoster vaccine (). Due on Oct due Goal PROJECT LANDSCAPE ARCHITECT Paperwork. Due on due Goal ALT [...] AST (SGOT). Due on d ue Goal TAX MANAGER PUBLIC Scanned. Due on due Goal Height. Due on due Goal Hepatitis C screening. Due on due Goal Unhealthy drug use screening. Du e on due Goal Weight. Due on due Goal Update Social History. Due on due Goal Hepatitis C screening. Due on due Goal Medication Reconciliation. Due o n due Goal PROJECT LANDSCAPE ARCHITECT Paperwork. Due on due Goal TAX MANAGER PUBLIC Scanned. Due on due Goal Weight. Due [...] AST (SGOT). Due on d ue Goal TAX MANAGER PUBLIC Scanned. Due on due Goal Order Annual PT. Due on due Goal Creatinine. Due on d ue Goal UDT. Due on due Goal PROJECT LANDSCAPE ARCHITECT Paperwork. Due on due Goal Medication [...] due Goal CT-Colonography. Due on due Goal Creatinine. Due on d ue Goal Lipid panel. Due on due Goal Hepatitis C screening. Due on due Goal Medication Reconciliation. Due o n due Goal Order Annual PT. Due on due Goal FIT-DNA. Due on due Goal TAX MANAGER PUBLIC Scanned. Due on due Goal FIT. Due on due Goal PHQ-9. Due on due Goal AST (SGOT). Due on d ue Goal Tobacco Use. Due on due Goal Review Allergy List. Due on due Goal Weight. Due on due Goal PROJECT LANDSCAPE ARCHITECT Paperwork. Due on due Goal UDT. Due on due Goal Height. Due on due Goal OARS. Due on due Goal ALT (SGPT). Due on d ue Goal Update Social History. Due on due Goal Zoster vaccine (). Due on Sep due Goal Unhealthy drug use screening. Du e on due Goal CT-Colonography. Due on due Goal UDT. Due on due Goal Review Allergy List. Due on due Goal OARS. Due on due Goal Creatinine. Due on d ue Goal TAX MANAGER PUBLIC Scanned. Due on due Goal PROJECT LANDSCAPE ARCHITECT Paperwork. Due on due Goal AST (SGOT). Due on d ue Goal Order Annual PT. Due on due Goal ALT (SGPT). Due on d ue Goal CT-Colonography. Due on due Goal Height. Due on due Goal Update Social History. Due on due Goal Zoster vaccine (1st). Due on Aug due Goal Hepatitis C screening. Due on [...] ue Goal UDT. Due on due Goal TAX MANAGER PUBLIC Scanned. Due on due Goal PROJECT LANDSCAPE ARCHITECT Paperwork. Due on due Goal Height. Due on due Goal FIT-DNA. Due on due Goal Lipid panel. Due on due Goal Update Social History. Due on due Goal Hepatitis C screening. Due on due Goal Tobacco Use. Due on due Goal Unhealthy drug use screening. Du iris on due Goal Review Allergy List. Due on due Goal Weight. Due on due Goal PHQ-9. Due on due Goal Medication Reconciliation. Due o n due Goal CT-Colonography. Due on due Goal Zoster vaccine (1st). Due on Jul due Goal Review Allergy List. Due on due Goal Unhealthy drug use screening. Du iris on due Goal Zoster vaccine (1st). Due on June due Goal Update Social History. Due on Katy due Goal PHQ-9. Due on due Goal CT-Colonography. Due on due Goal FIT-DNA. Due on due Goal Weight. Due on due Goal FIT. Due on due Goal Height. Due on due Goal Medication Reconciliation. Due o n due Goal Lipid panel. Due on due Goal Creatinine. Due on d ue Goal AST (SGOT). Due on d ue Goal PROJECT LANDSCAPE ARCHITECT Paperwork. Due on due Goal OARS. Due on due Goal TAX MANAGER PUBLIC Scanned. Due on due Goal UDT. Due on due Goal ALT (SGPT). Due on d ue Goal Tobacco Use. Due on due Goal Order Annual PT. Due on due Goal Hepatitis C screening. Due on Katy due Goal Lipid panel. Due on due Goal Medication Reconciliation. Due o n due Goal PHQ-9. Due on due Goal CT-Colonography. Due on due Goal PROJECT LANDSCAPE ARCHITECT Paperwork. Due on due Goal Weight. [...] use screening. Du e on due Goal TAX MANAGER PUBLIC Scanned. Due on due Goal Creatinine. Due on d ue Goal OARS. Due on due Goal FIT. Due on due Goal Review Allergy List. Due on due Goal Height. Due on due Goal FIT-DNA. Due on due Goal Zoster vaccine (1st). Due on May due Goal Review Allergy List. Due on due Goal Update Social History. Due on Ok due Goal PHQ-9. Due on due Goal Weight. Due on due Goal Medication Reconciliation. Due o n due Goal PROJECT LANDSCAPE ARCHITECT Paperwork. Due on due Goal TAX MANAGER PUBLIC Scanned. Due on due Goal Order Annual PT. Due on due Goal Creatinine. Due on d ue Goal UDT. Due on due Goal Height. Due on due Goal OARS. Due on due Goal ALT (SGPT). Due on d ue Goal Tobacco Use. Due on due Goal AST (SGOT). Due on d ue Goal PROJECT LANDSCAPE ARCHITECT Paperwork. Due on due Goal Update Social History. Due on due Goal Creatinine. Due on d ue Goal TAX MANAGER PUBLIC Scanned. Due on due Goal AST (SGOT). [...] Goal Tobacco Use. Due on due Goal TAX MANAGER PUBLIC Scanned. Due on due Goal Tobacco Use. Due on due Goal Order Annual PT. Due on 022 due Goal PROJECT LANDSCAPE ARCHITECT Paperwork. Due on due Goal PHQ-9. [...] Review Allergy List. Due on due Goal PROJECT LANDSCAPE ARCHITECT Paperwork. Due on due Goal ALT (SGPT). Due on d ue Goal TAX MANAGER PUBLIC Scanned. Due on due Goal AST (SGOT). [...] due Goal Height. Due on due Goal TAX MANAGER PUBLIC Scanned. Due on due Goal Weight. Due on due Goal Review Allergy List. Due on due Goal PROJECT LANDSCAPE ARCHITECT Paperwork. Due on due Goal Update Social History. Due on due Goal Creatinine. Due on d ue Goal Tobacco Use. Due on due Goal PHQ-9. Due on due Goal Medication Reconciliation. Due o n due Goal AST (SGOT). Due on d ue Goal Order Annual PT. Due on due Goal UDT. Due on due Goal ALT (SGPT). Due on d ue Goal ALT (SGPT). Due on d ue Goal AST (SGOT). Due on d ue Goal Update Social History. Due on Oc due Goal UDT. Due on due Goal Order Annual PT. Due on due Goal Weight. Due on due Goal OARS. Due on due Goal Medication Reconciliation. Due o n due Goal Review Allergy List. Due on due Goal TAX MANAGER PUBLIC Scanned. Due on due Goal Height. Due on due Goal Creatinine. Due on d ue Goal PROJECT LANDSCAPE ARCHITECT Paperwork. Due on due Goal Tobacco Use. Due on due Goal PHQ-9. Due on due Goal Tobacco Use. Due on due Goal Update Social History. Due on Se due Goal OARS. Due on due Goal Weight. Due on due Goal TAX MANAGER PUBLIC Scanned. Due on due Goal UDT. Due on due Goal ALT (SGPT). Due on d ue Goal PROJECT LANDSCAPE ARCHITECT Paperwork. Due on due Goal PHQ-9. [...] ue Goal Height. Due on due Goal PROJECT LANDSCAPE ARCHITECT Paperwork. Due on due Goal AST (SGOT). Due on d ue Goal Tobacco Use. Due on due Goal PHQ-9. Due on due Goal Update Social History. Due on due Goal Weight. Due on due Goal OARS. Due on due Goal Review Allergy List. Due on due Goal UDT. Due on due Goal TAX MANAGER PUBLIC Scanned. Due on due Goal UDT. Due on due Goal ALT (SGPT). Due on d ue Goal TAX MANAGER PUBLIC Scanned. Due on due Goal PHQ-9. Due on due Goal Tobacco Use. Due on due Goal Medication Reconciliation. Due o n due Goal Height. Due on due Goal Creatinine. Due on d ue Goal Order Annual PT. Due on 021 due Goal OARS. Due on due Goal PROJECT LANDSCAPE ARCHITECT Paperwork. Due on due Goal Weight. Due on due Goal Review Allergy List. Due on due Goal Update Social History. Due on due Goal AST (SGOT). Due on d ue Appointment Krys Lea BOOKED Appointment Krys Lea DO NOT DOUBLE BOOK BOOKED Future Order: Lab Order COMPLIANCE DRUG ANALYSIS , URINE, WITH MED Ordered REPORT ([id number]), Ordered on: Future Order: Lab Order Drug Test Def [address] (G0483), Ordered Ordered on: History Of Present Illness Encounter Date Complaint History Of Present I llness Comments: Yola prese nts for a follow up and medication refill re garding lower back pain. Prescribed medicatio n offers 85% pain relief. Following with wound care clinic regarding sore on her foot and boil on her left thigh. Currently on antibio tics. R ankle/foot, lower back, neck, and hip pain are currently stable. Flares depen ding on travel/activity level. Following wit h ortho regarding left shoulder pain/inject ions. Participates in HEP as able. Accompanied by her today. No further questions or concerns. low back pain Severity level is 2. Duration: chronic. The problem is stable. I t occurs persistently. The client describes the pain as an ache and sharp. Symptoms are aggravated by bending, standing, twisting, walking, housework, movement and prolong ed positioning. Symptoms are relieved by ice, pain meds/drugs, rest and sitting. low back [...] res t and changing positions. Comments: Yola baldev brumfield [...] today. N o further questions or concerns. Comments: Yola brumfield for [...] Participates in HEP as able. Inquires about [place] increase.Accom panied by her today. No further [...] pain meds/drugs and rest. low back pain Duration: chronic. T [...] Also recently completed a lumbar E SI. detention results pending, but notes s he has [...] currently s table. Flares depending on travel/activity sofia gallegos. Currently on antibiotics for an i nfection [...] cently underwent R hip bursa injection thro [facility] which has offered benefit. R w [...] ore bothersome recently. Planning to follow [facility] regarding this. Also has increased p [...] pain relief and allows for increased functionality. Elizabeth s side effects from current medication r [...] PT at this time. Presents with #15 [place] and # 14 Methadone - on track. [...] with her orthopedist. Patient presents with #135.5 [place], and #14 Metha done - both are [...] Presents with #20 Me thadone and #108.5 [place] - on track. Reports current medication regimen [...] is here for a f/u. Has #74 [place] and #9 Methadone remaini ng - on [...] PT-N/AESI-N/ARF-not triedSCS-not tried Meds: Opioids-Currently ta kes [place] and Methadone Neuropathics-Current ly takes gabapentin Muscle [...] her e for a f/u. Has #52 [place] and #7 Methadone remaini ng - on [...] rest and changing positions. low back pain Duration: [...] for follow up and medications refill. Presents [facility] #75 [place] and #19 methadone-- a surplu [...] concerns at today's OV. low back pain (comments) Yola is here f or follow up and medications refill. [facility] #7 methadone, #34 [place] - on track. Reports current medication regimen provides 85% pain relief. Denies side effects from current medication regimen. Pain is fluctuating. Back pain is slightly flared this month. Prescrib ed medications continue to be helpful for pa in relief. Has presented to PT for a few sess ions - does not think it helped her pain. Enrique sea, diarrhea has resolved since disco ntinuing simvastatin. [...] are planning a trip up [place] in [facility]. No other concerns today. low back [...] had a quite hor rible trip to [place]. No other concerns today . low back [...] up and medication refill. She has #100 [place] and #5 methadone remaining-surplus. T he patient states the current medication r egimen continues to be effective at reducin g pain without SE. She got an injetion from [facility] and it did not provide any relief f or her. She went to see her spine surgeon wh o discussed surgery with her. She tried gabap entin and reports she was very drowsy on it. S he may be interested in trying Lyrica. No ot her concerns today. low back pain (comments) Patient is here for f/u. Patient has #104 [place] and #10 methad one remaining - on track. Patient reports 50% pain relief with meds. Patient is stable on these medications. Pt reports medication r egimen is effective at controlling her medical referral coordinator audie low back pain. Continues her daily PT exercises. She does injections at [facility]. I s going to [place] in November. No other concerns to day. [...] She has # 8 methadone and #94.5 [place] remaining - on track/surplus. The patient reports [...] in [place]. She will be going to [place] in November. The charlene ent states gabapentin [...] low back pain. She has # 71 [place] and #8 methadone remaining - on track [...] low back pain. She has # 88.5 [place] and #19 methadone remaining - on track/surplus. [...] low back pain. She has # 90 [place] and #19 methadone remaining - on track/surplus. [...] low back pain. She has # 63 [place] and #12 methadone remaining - on track/surplus. [...] She has # 18 methadone and #45 [place] remaining - on track. She continues PT for her shoulder and has noticed some benefit. She had a l umbar BOBO at [facility] which has provided minimal relief to this point. The patient states t he current medication regimen continues to be effective for reducing pain. She C O trouble sleeping even when she uses Trazod one. She continues PT regularly. She will be going on a trip to [place] and [facility] this Summer. No other concerns today . [...] medication refill. She presents with #8 7.5 [place] and #20 methadone. She notif ied us [...] low back pain. She has # 63 [place] and #7 methadone remaining - on track [...] low back pain. She has # 47 [place] and #8 methadone remaining - on track [...] low back pain. She has # 31 [place], #22 methadone and #19 Trazodone re maining - on track. She will be going on vac ation this week to [place]. She has not noticed any relief from her BOBO yet. She just transi tioned to an E-cig. She continues home exerc ise. She has experiended good relief from her shoulder injection at [facility] so she has not f ollowed [...] She an d her are going to [place] in [facility] er and she will need to come [...] flare since she had her epidural at [facility] last Thursday. States this has not [...] Continue current medication Assessments Type Assessment Date No Information Patient Care Teams Name Effective Dates (start - stop) Status M wade No Information
--- OUTSIDE RECORDS SUMMARY | 2022-01-28 14:18 | XMS_ITS | Encounter Summary ---
:1950 Author Organization [facility] Address [address] [place] [address]. [place] [address] Care Team Providers Name Role Phone Idalmis Sloan Primary Care Provider Reason for Visit Diagnostic Imaging XR (Routine) - Closed Specialty Diagnoses / Procedures Referred By Contact Refer red To Contact Diagnoses Acute bilateral low back pain with left-sided sciatica Ana Jacobs PA-C Procedures XR Lumbar Bending Only 2/3 Views [facility] [address] [facility] [place] [address] [place] [address] Referral ID Status Reason Start Date Expiration Date Visits Requ ested Visits Authorized [id number] Closed 10/29/2020 10/29/2021 1 1 Encounter Details Date Type Department Care Team Description 10/29/2020 Ancillary Procedure [facility] Ana Jacobs Acu te bilateral low Sports and Kieran PASamiC back pain with [facility] left-side d sciatica [facility] [address] [facility] [address] [place] [address] [place] [id number] Social History Tobacco Use Types Packs/Day Years [...] extension. JULIO CÉSAR HUITRON MD SYSTEM ID: ??[id number] Narrative 10/29/2020 4:29 PM CDT XR LUMBAR [...] extension. JULIO CÉSAR HUITRON MD SYSTEM ID: [id number] Ana Jacobs PA-C [facility] ORDER TRELL documented in this encounter Visit Diagnoses Diagnosis Acute bilateral low back pain with left- sided sciatica documented in this encounter Care Teams Manager Interface Relationship Specialty Start Date End Date Idalmis Sloan PCP - General Family Practice 11/04/13 documented as of this encounter
--- OUTSIDE RECORDS SUMMARY | 2022-01-28 14:18 | XMS_ITS | Encounter Summary ---
:1950 Author Organization [facility] Address [address] [place] [address] Care Team Providers Name Role Phone Idalmis [...] on filedocumented in this encounter Care Teams Language Interpreter Relationship Specialty Start Date End Date Idalmis Sloan PCP - General Family Practice 11/04/13 documented as of this encounter
--- OUTSIDE RECORDS SUMMARY | 2022-01-28 14:18 | XMS_ITS | Encounter Summary ---
:1950 Author Organization [place] Address [address] [place] [address]. [place] [address] Care Team Providers Name Role Phone Idalmis Sloan Primary Care Provider Reason for Visit Diagnostic Imaging XR (Routine) - Closed Specialty Diagnoses / Procedures Referred By Contact Refer red To Contact Diagnoses Acute bilateral low back pain with left-sided sciatica Ana Jacobs PA-C Procedures XR Spine Complete Scoliosis 2 Views [facility] [address] [facility] [address] [place] [address] Referral ID Status Reason Start Date Expiration Date Visits Requ ested Visits Authorized [id number] Closed 10/29/2020 10/29/2021 1 1 Encounter Details Date Type Department Care Team Description 10/29/2020 Ancillary Procedure [facility] Ana Jacobs Acu te bilateral low Sports and VIELKA Alcaraz back pain with [facility] left-side d sciatica [facility] [address] [employer] [address] [facility] [address] [place] [address] [place] [id number] Social History Tobacco Use Types Packs/Day Years [...] sciatica documented in this encounter Care Teams Biofuels Plant Manager Relationship Specialty Start Date End Date Idalmis Sloan PCP - General Family Practice 11/04/13 documented as of this encounter
--- OUTSIDE RECORDS SUMMARY | 2022-01-28 14:18 | XMS_ITS | Encounter Summary ---
:1950 Author Organization [facility] Address [address] [place] [address] Care Team Providers Name Role Phone Idalmis Sloan Primary Care Provider Encounter Details Date Type Department Care Team Description 03/23/2019 Therapy Visit [facility] [place], Lumbar pain (Primary Rehabilitation Services ANIMAL SITTER Dx) [facility] [address] [facility] [address] [place] [address] Social History Tobacco Use Types Packs/Day Years Used Date Smoking Tobacco: Never Smokeless Tobacco: Never Sex Assigned at Date Recorded Not on file documented as of this encounter Plan of Treatment Not on filedocumented as of this encounter Procedures Procedure Name Priority Date/Time Associated Diagnosis Comme nts Z THERAPEUTIC Routine 03/23/2019 3:35 PM POLE SHAVER Lumbar pain ACTIVITIES ZZ THERAPEUTIC Routine 03/23/2019 3:35 PM POLE SHAVER Lumbar pain EXERCISES documented in this encounter Visit Diagnoses Diagnosis Lumbar pain - Primary Lumbago documented in this encounter Care Teams Parking Patroller Relationship Specialty Start Date End Date Idalmis Sloan PCP - General Family Practice 11/04/13 documented as of this encounter
--- OUTSIDE RECORDS SUMMARY | 2022-01-28 14:18 | XMS_ITS | Encounter Summary ---
:1950 Author Organization [place] Address [facility] [place] [address] Care Team Providers Name Role Phone Idalmis Sloan Primary Care Provider Madhav Mattue MD Unavailable Encounter Details Date Type Department Care Team Description 01/10/2021 Orders Only [facility] Neurosurgery Reported, Patient Clinic [address] [place] [address] Social History Tobacco Use Types [...] on filedocumented in this encounter Care Teams Oil Heat Technician Relationship Specialty Start Date End Date Idalmis Sloan PCP - General Family Practice 11/04/13 Madhav Matute MD Assigned Neuroscience 12/02/20 [address] [facility] Provider [address] [place] [address] documented as of this encounter
--- OUTSIDE RECORDS SUMMARY | 2022-01-28 14:18 | XMS_ITS | Encounter Summary ---
:1950 Author Organization [place] Address [address] [facility] [place] [address] Care Team Providers Name Role Phone LeviIdalmis stahl Ann Primary Care Provider Madhav Matute MD Unavailable Encounter Details Date Type Department Care Team Description 01/15/2021 Medical Correspondence [facility] Scan, PHYSICAL THERAPY Health Info Mgmt Non-Provider ORDER [facility] PAIN [facility] [address] [place] [address] Social History Tobacco Use Types Packs/Day Years Used Date Smoking Tobacco: Never Smokeless Tobacco: Never Sex Assigned at Date Recorded Not on file documented as of this encounter Plan of Treatment Not on filedocumented as of this encounter Visit Diagnoses Not on filedocumented in this encounter Care Teams Wire Drawing Machine Tender Relationship Specialty Start Date End Date Idalmis Sloan PCP - General Family Practice 11/04/13 Madhav Matute MD Assigned Neuroscience 12/02/20 [address] MARYANA BEGUM Provider [address] [place] [id number] documented as of this encounter
--- OUTSIDE RECORDS SUMMARY | 2022-01-28 14:18 | XMS_ITS | Encounter Summary ---
:1950 Author Organization [place] Address [facility] [place] [address] Care Team Providers Name Role Phone Idalmis [...] on filedocumented in this encounter Care Teams Preventative Maintenance Technician Relationship Specialty Start Date End Date Idalmis Sloan PCP - General Family Practice 11/04/13 Ana Jacobs PA-C Assigned Neuroscience 11/04/20 12/01/20 [facility] Provider [address] [place] [address] documented as of this encounter
--- OUTSIDE RECORDS SUMMARY | 2022-01-28 14:18 | XMS_ITS | Encounter Summary ---
:1950 Author Organization [place] Address [facility] [place] [address] Care Team Providers Name Role Phone Idalmis [...] on filedocumented in this encounter Care Teams Clinical Science Liaison Relationship Specialty Start Date End Date Idalmis Sloan PCP - General Family Practice 11/04/13 Ana Jacobs PA-C Assigned Neuroscience 11/04/20 12/01/20 [facility] Provider [address] [place] [id number] documented as of this encounter
--- OUTSIDE RECORDS SUMMARY | 2022-01-28 14:18 | XMS_ITS | Encounter Summary ---
:1950 Author Organization [place] Address [address] [place] [address] Care Team Providers Name Role Phone Idalmis Sloan Primary Care Provider Encounter Details Date Type Department Care Team Description 03/16/2019 Therapy Visit [facility] [place], Lumbar pain (Primary Rehabilitation Services SAP BI ARCHITECT Dx) [facility] [address] [facility] [address] [place] [address] Social History Tobacco Use Types Packs/Day Years Used Date Smoking Tobacco: Never Smokeless Tobacco: Never Sex Assigned at Date Recorded Not on file documented as of this encounter Plan of Treatment Not on filedocumented as of this encounter Procedures Procedure Name Priority Date/Time Associated Diagnosis Comme nts Z THERAPEUTIC Routine 03/16/2019 4:32 PM SET UP MOLD TECHNICIAN Lumbar pain ACTIVITIES Z THERAPEUTIC Routine 03/16/2019 4:32 PM SET UP MOLD TECHNICIAN Lumbar pain EXERCISES documented in this encounter Visit Diagnoses Diagnosis Lumbar pain - Primary Lumbago documented in this encounter Care Teams Guillotine Trimmer Relationship Specialty Start Date End Date Idalmis Sloan PCP - General Family Practice 11/04/13 documented as of this encounter
--- OUTSIDE RECORDS SUMMARY | 2022-01-28 14:18 | XMS_ITS | Encounter Summary ---
:1950 Author Organization [facility] Address [address] [place] [address] Care Team Providers Name Role Phone Idalmis Sloan Primary Care Provider Ana Jacobs PA-C Unavailable Reason for Referral Diagnostic Imaging XR (Routine) - Closed Specialty Diagnoses / Procedures Referred By Contact Refer red To Contact Diagnoses Acute bilateral low back pain with left-sided sciatica Lumbar radiculopathy Madhav Matute MD Procedures XR Lumbar Epidural Injection In[facility] Imaging [address] [place] [address] Referral ID Status Reason Start Date Expiration Date Visits Requ ested Visits Authorized [id number] Closed 11/19/2020 11/19/2021 1 1 Reason for Visit Reason Comments RECHECK Lumbar Encounter Details Date Type Department Care Team Description 11/19/2020 Office Visit [facility] Madhav Melton Acute darrell ateral low back pain with left-sided sciatica (Primary Dx); [facility] Neurosurgery MD Cordell Lumbar radiculopathy Clinic [place] [address] MARYANA NELSON [address] [facility] [address] [place] [phone] Social History Tobacco Use Types Packs/Day Years [...] after this timeframe. o You can call [facility] ([facility]) to schedule your injection at [phone] ??? We will work on obtaining your [...] SARAH/Minnie November 19, 2020 to fax number [phone] Right Fax confirmed at 1615 PM documented [...] unspecified documented in this encounter Care Teams Tap And Die Maker Technician Relationship Specialty Start Date End Date Idalmis Sloan PCP - General Family Practice 11/04/13 Ana Jacobs PA-C Assigned Neuroscience 11/04/20 12/01/20 [facility] Provider [address] [place] [address] documented as of this encounter
--- OUTSIDE RECORDS SUMMARY | 2022-01-28 14:18 | XMS_ITS | Encounter Summary ---
:1950 Author Organization [facility] Address [address] [place] [address] Care Team Providers Name Role Phone Idalmis [...] on filedocumented in this encounter Care Teams Boiler Technician Relationship Specialty Start Date End Date Idalmis Sloan PCP - General Family Practice 11/04/13 documented as of this encounter
--- OUTSIDE RECORDS SUMMARY | 2022-01-28 14:18 | XMS_ITS | Encounter Summary ---
:1950 Author Organization [place] Address [address] [place] [address] Care Team Providers Name Role Phone Idalmis Sloan Primary Care Provider Ana Jacobs PA-C Unavailable Reason for Referral Diagnostic Imaging CT Scan (Routine) - Closed Specialty Diagnoses / Procedures Referred By Contact Refer red To Contact Diagnoses Acute bilateral low back pain with left-sided sciatica Ana Jacobs PA-C Procedures CT Lumbar Spine w/o Contrast [facility] [address] [place] [address] Referral ID Status Reason Start Date Expiration Date Visits Requ ested Visits Authorized [id number] Closed 10/29/2020 10/29/2021 1 1 Reason for Visit Diagnostic Imaging CT Scan (Routine) - Closed Specialty Diagnoses / Procedures Referred By Contact Refer red To Contact Diagnoses Acute bilateral low back pain with left-sided sciatica Ana Jacobs PA-C Procedures CT Lumbar Spine w/o Contrast [facility] [place] [address] Referral ID Status Reason Start Date Expiration Date Visits Requ ested Visits Authorized [id number] Closed 10/29/2020 10/29/2021 1 1 Encounter Details Date Type Department Care Team Description 11/08/2020 [facility] low [facility] VIELKA Alcaraz back pain with [address] [facility] left-sided sciatica [facility] [address] [address]anna [phone] [place] [address] Social History Tobacco Use Types Packs/Day Years [...] MR 06/22/2020. TORRES RIVAS MD SYSTEM ID: ??[id number] Narrative 11/09/2020 9:[address] LUMBAR [...] MR 06/22/2020. TORRES RIVAS MD SYSTEM ID: [id number] Ana Jacobs PA-C IMG CT ORDERABLES documented in this encounter Visit Diagnoses Diagnosis Acute bilateral low back pain with left- sided sciatica documented in this encounter Care Teams Youth Coordinator Relationship Specialty Start Date End Date Idalmis Sloan PCP - General Family Practice 11/04/13 Ana Jacobs PA-C Assigned Neuroscience 11/04/20 12/01/20 [facility] Provider [address] [address] documented as of this encounter
--- OUTSIDE RECORDS SUMMARY | 2022-01-28 14:18 | XMS_ITS | Encounter Summary ---
:1950 Author Organization [place] Address [address] [place] [address] Care Team Providers Name Role Phone Idalmis [...] on filedocumented in this encounter Care Teams Evidence Custodian Relationship Specialty Start Date End Date Idalmis Sloan PCP - General Family Practice 11/04/13 documented as of this encounter
--- OUTSIDE RECORDS SUMMARY | 2022-01-28 14:18 | XMS_ITS | Encounter Summary ---
:1950 Author Organization [place] Address [facility] [place] [address] Care Team Providers Name Role Phone Idalmis Sloan Primary Care Provider Reason for Referral Diagnostic Imaging XR (Routine) - Closed Specialty Diagnoses / Procedures Referred By Contact Refer red To Contact Diagnoses Acute bilateral low back pain with left-sided sciatica Ana Jacobs PA-C Procedures XR Lumbar Bending Only 2/3 Views [facility] [address] Referral ID Status Reason Start Date Expiration Date Visits Requ ested Visits Authorized [id number] Closed 10/29/2020 10/29/2021 1 1 Diagnostic Imaging XR (Routine) - Closed Specialty Diagnoses / Procedures Referred By Contact Refer red To Contact Diagnoses Acute bilateral low back pain with left-sided sciatica Ana Jacobs PA-C Procedures XR Spine Complete Scoliosis 2 Views [facility] [address] Referral ID Status Reason Start Date Expiration Date Visits Requ ested Visits Authorized [id number] Closed 10/29/2020 10/29/2021 [address] Scan (Routine) - Closed Specialty Diagnoses / Procedures Referred By Contact Refer red To Contact Diagnoses Acute bilateral low back pain with left-sided sciatica Ana Jacobs PA-C Procedures CT Lumbar Spine w/o Contrast [facility] [place] [address] Referral ID Status Reason Start Date Expiration Date Visits Requ ested Visits Authorized [id number] Closed 10/29/2020 10/29/2021 1 1 Reason for Visit Reason Comments Consult Low back pain; L hip pain Neurologic Problem Encounter Details Date Type Department Care Team Description 10/29/2020 Office Visit [facility] [place] [address] [place] [address] Acute bilateral low back pain with left- sided sciatica (Primary Dx); [facility] Neurosurgery Ana Jacobs PA-C [facility] [address] [address] Lumbar radiculopathy Clinic [place] [address] [place] [address] [address] [place] [phone] Social History Tobacco Use Types Packs/Day Years [...] will need to call to schedule. Call [facility] radiology scheduling for your procedure: For scheduling in the [place] ([facility], and [place]) call [phone] or [phone] For scheduling at [facility] ([facility], [facility], [facility]), call [phone] or [phone] For scheduling in the [place] ([facility]) call [phone] or [phone] -Recommend scoliosis films in addition to standing XR neutral/flexion/extension -Recommend following up once all imaging has been obtained to review and go over next Ana Jacobs PA-C [facility] Neurosurgery [address] [place] [address] documented in this encounter Progress Notes Ana [...] None of these modalities have provided anysignificant skilled nursing relief. Krys's Sachin had prior back surgery [...] agreed to call our office back at [phone] to further discuss possible surgical interventions or [...] seek being evaluated. Respectfully, Ana Jacobs PA-C [facility] Neurosurgery [address] [address] Exam, imaging, and plan reviewed by Dr. [...] MR 06/22/2020. TORRES RIVAS MD SYSTEM ID: ??[id number] Narrative 11/09/2020 9:[address] LUMBAR [...] MR 06/22/2020. TORRES RIVAS MD SYSTEM ID: [id number] Ana COULTER-C IMG CT ORDERABLES XR Lumbar [...] extension. JULIO CÉSAR HUITRON MD SYSTEM ID: ??[id number] Narrative 10/29/2020 4:29 PM CDT XR LUMBAR [...] extension. JULIO CÉSAR HUITRON MD SYSTEM ID: [id number] Ana Jacobs PA-C IMG DIAGNOSTIC IMAGING ORDER [...] the lumbar sp ine 06/22/2020. Procedure Note Agnel Rico MD - 10/29/2020Formattin g of this [...] documented in this encounter Care Teams Manager Solar Relationship Specialty Start Date End Date Idalmis Sloan PCP - General Family Practice 11/04/13 documented as of this encounter
--- OUTSIDE RECORDS SUMMARY | 2022-01-28 14:18 | XMS_ITS | Encounter Summary ---
:1950 Author Organization [place] Address [address] [place] [address] Care Team Providers Name Role Phone Idalmis [...] filedocumented in this encounter Care Teams Learning Program Manager Relationship Specialty Start Date End Date Idalmis Sloan PCP - General Family Practice 11/04/13 documented as of this encounter
--- OUTSIDE RECORDS SUMMARY | 2022-01-28 14:18 | XMS_ITS | Encounter Summary ---
:1950 Author Organization [place] Address [address] [place] [address] Care Team Providers Name Role Phone Idalmis [...] Observation Dept [address] [place], [place] [address] Phone: Referral ID Status Reason Start Date Expiration Date Visits Requ ested Visits Authorized [id number] 1 1 Encounter Details Date Type Department Care Team Description 12/16/2020 - [facility] Caleb Dawn PA-C [facility] [address] [place], [place] [address] Constipation with Fecal impaction; 12/18/2020 [facility] Observation Amando Ross MD [facility] [address] [place] [address] Stercoral colitis; Dept Lisandro Crawford MD [address] [place], [place] [id number] Coronary artery calcification; [address] [place] [address] Social History Tobacco Use Types [...] Brar PA-C - 12/18/2020 10:20 AM CDT [facility] Hospitalist Discharge Summary Date of Admission: [...] minutes discharging this patient. Uma Brar PA-C [facility] OBSERVATION DEPT [address] [facility] [address] Physical Exam Vital Signs: Temp: 97.6 ??F [...] EXAM: CT ABDOMEN PELVIS W CONTRAST LOCATION: [facility] DATE/TIME: 12/16/2020 11:23 PM INDICATION: Diverticulitis [...] order SW consult): Home w/ Facility name: construction person: - Cheikh Activity level at baseline: [...] Crawford MD - 12/17/2020 2:17 AM CDT [facility] History and Physical - Hospitalist Service [...] Code Status: Full Code Lisandro Crawford MD [facility] Securely message with the BovControlole (learn more here) Text page via eMazeMe Paging/Directory Chief Complaint Diarrhea History is obtained [...] EXAM: CT ABDOMEN PELVIS W CONTRAST LOCATION: [facility] DATE/TIME: 12/16/2020 11:23 PM INDICATION: Diverticulitis [...] opioid use. Rectal disimpaction unsuccessful. Success with [place] lady enema and Relistor. Now with large [...] Mejia RN - 12/17/2020 1:14 AM CDT [facility] ED Nurse Handoff Report Krys Mosher [...] 1. Lift room needed: No. Bariatric: No Customer Service Leader Needed: No Isolation: No. Infection: Not Applicable. [...] Status --------- ------ CBC with platelets and d...[[id number]] Abnormal Final result Please view results for [...] Quinolones Sulfa Drugs Lorazepam Medications: Nexium Lasix [place] Methadone Zocor Trazodone Florastor Past Medical History: [...] Status --------- ------ CBC with platelets and d...[[id number]] Abnormal Final result Please view results for [...] Return to near baseline physical activity: Yes Ballast Regulator Operator Nurse Safe discharge environment identified: Yes [...] for discharge by consultants (if involved): N/A Ballast Regulator Operator Nurse Safe discharge environment identified: Yes, home w/ Barriers to discharge: Yes Entered by: Elfego Randall 12/18/2020 5:51 AM Vitals are Temp: 97.9 ??F (36.6 ??C) Temp src: Oral BP: (!) 158/98 Pulse: 79 Resp: 20 SpO2: 95 %. Patient is alert and oriented. Up SBA w/walker. On a regular diet. 8/10 chronic back and left hip pain. On scheduled methadone and prn [place]. PIV SL. Continuing supportive cares. Likely home [...] for discharge by consultants (if involved): N/A Ballast Regulator Operator Nurse Safe discharge environment identified: Yes, home [...] ice pack. On scheduled methadone with prn [place] for chronic pain. PIV SL. Ambulated hallways [...] for discharge by consultants (if involved): N/A Ballast Regulator Operator Nurse Safe discharge environment identified: Yes, home w/ Barriers to discharge: Yes Entered by: Elfego Randall 12/17/2020 11:27 PM Vitals are Temp: 98.4 ??F (36.9 ??C) Temp src: Oral BP: 110/76 Pulse: 84 Resp: 16 SpO2: 96 %. Patient is Alert and Oriented x4. Up SBA w/walker. On a regular diet. Reports 9/10 rectal discomfort. Ice applied. On scheduled methadone. Prn [place] also given. PIV SL. Up to bathroom [...] 7. Provider specific discharge goals met: yes Ballast Regulator Operator Nurse Safe discharge environment identified: Yes [...] 7. Provider specific discharge goals met: Yes Ballast Regulator Operator Nurse Safe discharge environment identified: Yes Barriers to discharge: Yes, does not feel able to get up and use the toilette so many times Entered by: Reggie Langford 12/17/2020 12:58 PM Please review provider order for any additional goals. Nurse to notify provider when observation goals have been met and patient is ready for discharge. Pharmacy-Admission Medication History - Lazara Fontenot, [facility] - 12/17/2020 10:24 AM CDT Admission medication history interview status for this patient is complete. See [facility] admission navigator for allergy information, prior to admission medications and immunization status. Medication history interview done, indicate source(s): Patient Medication history resources (including written lists, pill bottles, clinic record): Sure Scripts fill record Pharmacy: [facility] Changes made to WASTE COLLECTION DRIVER medication list: Added: latanoprost, Patanol eye drops, [...] on Movantik. Patient has Medicare D through [facility]. Movantik: Not covered. Relistor: Not covered. Amitiza: $47/mo. Dea Torres, Tube Sizer And Cutter Operator/Liaison, Discharge Pharmacy [phone] Plan of Care - Reggie Langford RN - 12/17/2020 9:02 AM CDT PRIMARY DIAGNOSIS: dehydration/weakness OUTPATIENT/OBSERVATION GOALS TO BE MET BEFORE DISCHARGE: 1. Stable vital signs Yes 2. Tolerating diet:Yes 3. Pain controlled with oral pain medications: Yes 4. Positive bowel sounds: Yes 5. Voiding without difficulty: Yes 6. Able to ambulate: Yes 7. Provider specific discharge goals met: Yes Ballast Regulator Operator Nurse Safe discharge environment identified: Yes [...] Return to near baseline physical activity: No Ballast Regulator Operator Nurse Safe discharge environment identified: Yes [...] diet. C/o 8/10 left shoulder pain, PRN [place] administered. NS running at 100mL/hr. C/o SOB [...] Code Phon e Number [facility] [place] [address] Care Lab [address] Lab (1st floor, no room number) [...] City/State/ZIP Code Phon e Number [place] [phone] Care Lab [address] Lab (1st floor, no room number) [...] Address City/State/ZIP Code Phon [place] [address] Care Lab [address] Lab (1st floor, no room number) [...] Organization Address City/State/[place] [address] [facility] [address] [facility] ([facility], no room number) [...] EXAM: CT ABDOMEN PELVIS W CONTRAST LOCATION: [facility] DATE/TIME: 12/16/2020 11:23 PM INDICATION: Diverticulitis suspected, [...] EXAM: CT ABDOMEN PELVIS W CONTRAST LOCATION: [facility] DATE/TIME: 12/16/2020 11:23 PM INDICATION: Diverticulitis suspected, [...] LAB - BLOOD ORDERABLES Performing Organization Address City/[facility]/[place] [phone] Care Lab [address] Lab (1st floor, no room number) [...] LAB - BLOOD ORDERABLES Performing Organization Address City/[facility]/[place] [address] Care Lab [address] Lab [...] City/State/ZIP Code Phon e Number [place] [address] Care Lab [address] Lab [...] documented as of this encounter Care Teams Drill Foreman Relationship Specialty Start Date End Date Idalmis Sloan PCP - General Family Practice 11/04/13 Madhav Matute MD Assigned Neuroscience 12/02/[address] [facility] Provider [address] [place] [address] documented as of this encounter
--- OUTSIDE RECORDS SUMMARY | 2022-01-28 14:18 | XMS_ITS | Encounter Summary ---
:1950 Author Organization [place] Address [facility] [place] [address] Care Team Providers Name Role Phone Idalmis Sloan Primary Care Provider Encounter Details Date Type Department Care Team Description 04/14/2019 Therapy Visit [facility] [place], Lumbar pain (Primary Rehabilitation Services WINDMILL TECHNICIAN Dx) [facility] [address] [facility] [address] [place], [place] [address] Social History Tobacco Use Types Packs/Day Years [...] increase back pain. Functionally has improved. GER MERCHANDISE Adiel Ramirez 04/14/2019 2:30 PM CST Assessment/Plan: [...] time spent performing 1:1 timed codes. GER MERCHANDISE documented in this encounter Miscellaneous Notes Addendum Note - Adiel Ramirez - 04/14/2019 2:30 PM MANAGER MERCHANDISE Addended by: ADIEL RAMIREZ on: 04/15/2019 11:09 AM Modules accepted: Orders GER MERCHANDISE documented in this encounter Plan of Treatment Not on filedocumented as of this encounter Procedures Procedure Name Priority Date/Time Associated Diagnosis Comme [facility] Z THERAPEUTIC Routine 04/15/2019 10:52 AM Lumbar pain ACTIVITIES MANAGER MERCHANDISE documented in this encounter Visit Diagnoses Diagnosis Lumbar pain - Primary Lumbago documented in this encounter Care Teams Home Care Companion Relationship Specialty Start Date End Date Idalmis Sloan PCP - General Family Practice 11/04/13 documented as of this encounter
--- OUTSIDE RECORDS SUMMARY | 2022-01-28 14:18 | XMS_ITS | Encounter Summary ---
:1950 Author Organization [place] Address [address] [place] [address] Care Team Providers Name Role Phone Idalmis Sloan Primary Care Provider Encounter Details Date Type Department Care Team Description 04/06[facility]2019 [facility] (Primary Rehabilitation Services [address] Dx) [address] [address] [address] [place] [address] (Work) [phone] Social History Tobacco Use Types Packs/Day Years Used Date Smoking Tobacco: Never Smokeless Tobacco: Never Sex Assigned at Date Recorded Not on file documented as of this encounter Plan of Treatment Not on filedocumented as of this encounter Procedures Procedure Name Priority Date/Time Associated Diagnosis Comme [facility] ZZ THERAPEUTIC Routine 04/06/2019 3:49 PM MARKETING FINANCE SPECIALIST Lumbar pain EXERCISES documented in this encounter Visit Diagnoses Diagnosis Lumbar pain - Primary Lumbago documented in this encounter Care Teams Epitaxial Reactor Technician Relationship Specialty Start Date End Date Idalmis Sloan PCP - General Family Practice 11/04/13 documented as of this encounter
--- OUTSIDE RECORDS SUMMARY | 2022-01-28 14:18 | XMS_ITS | Encounter Summary ---
:1950 Author Organization [place] Address [address] [place] [address] Care Team Providers Name Role Phone Idalmis [...] on filedocumented in this encounter Care Teams Biomedical Equipment Support Specialist Relationship Specialty Start Date End Date Idalmis Sloan PCP - General Family Practice 11/04/13 documented as of this encounter
--- OUTSIDE RECORDS SUMMARY | 2022-01-28 14:19 | XMS_ITS | Encounter Summary ---
:1950 Author Organization [place] Address [address] [facility] [place] [address] Care Team Providers Name Role Phone Idalmis Sloan Primary Care Provider Reason for Visit [facility] Physical Therapy (Routine) - Closed Specialty Diagnoses / Procedures Referred By Contact Refer red To Contact Switch Repairer Diagnoses >4 Lefft side hip pain, LBP / Idalmis Sloan MD@ [place] / [facility] /referral exists 20V thru 03.01.18(MSG) Idalmis Sloan Linda, PTA / Physical Therapy Procedures SPINE FOLLOW UP [facility] [address] [place] [address] Referral ID Status Reason Start Date Expiration Date Visits Requ ested Visits Authorized [id number] Closed 03/16/2018 03/01/2019 20 18 Encounter Details Date Type Department Care Team Description 03/16/2018 Therapy Visit [facility] [place], Hip josefnia n, left Rehabilitation Services [facility] [address] [facility] [address] [place] [address] Social History Tobacco Use Types Packs/Day Years Used Date Smoking Tobacco: Never Smokeless Tobacco: Never Sex Assigned at Date Recorded Not on file documented as of this encounter Plan of Treatment Not on filedocumented as of this encounter Procedures Procedure Name Priority Date/Time Associated Diagnosis Comme [facility] THERAPEUTIC Routine 03/17/2018 7:48 AM DOOR TO DOOR SALESMAN Hip pain, left EXERCISES documented in this encounter Visit Diagnoses Diagnosis Hip pain, left Pain in joint, pelvic region and thigh documented in this encounter Care Teams Ict Support And Test Engineers Relationship Specialty Start Date End Date Idalmis Sloan PCP - General Family Practice 11/04/13 documented as of this encounter
--- OUTSIDE RECORDS SUMMARY | 2022-01-28 14:19 | XMS_ITS | Encounter Summary ---
:1950 Author Organization [place] Address [address] [place] [address] Care Team Providers Name Role Phone Idalmis [...] on filedocumented in this encounter Care Teams Artist Suspect Relationship Specialty Start Date End Date Idalmis Sloan PCP - General Family Practice 11/04/13 documented as of this encounter
--- OUTSIDE RECORDS SUMMARY | 2022-01-28 14:19 | XMS_ITS | Encounter Summary ---
:1950 Author Organization [place] Address [address] [facility] [place] [address] Care Team Providers Name Role Phone Idalmis Sloan Primary Care Provider Reason for Visit Reason Onset Date Comments Outreach 04/14/2017 UC FOLLOW UP - COMPL ETED Encounter Details Date Type Department Care Team Description 04/14/2017 Telephone [facility] Laith Oliver ( FOLLOW UP Urgent Care Lacy Craig MD - COMPLETED) [address] [address] [facility] [address] [place], [place], [place] [phone] Social History Tobacco Use Types Packs/Day Years [...] others? YES Comments: Appointment scheduled? NO Location? P PROGRAM MANAGER documented in this encounter Plan of Treatment Not on filedocumented as of this encounter Visit Diagnoses Not on filedocumented in this encounter Care Teams Fireworks Inspector Relationship Specialty Start Date End Date Idalmis Sloan PCP - General Family Practice 11/04/13 documented as of this encounter
--- OUTSIDE RECORDS SUMMARY | 2022-01-28 14:19 | XMS_ITS | Encounter Summary ---
:1950 Author Organization [place] Address [address] [place] [address] Care Team Providers Name Role Phone Idalmis Sloan Primary Care Provider Encounter Details Date Type Department Care Team Description 03/09/2019 Therapy Visit [facility] [place], Lumbar pain (Primary Rehabilitation Services MORNING CAREGIVER Dx) [facility] [address] [facility] [address] [place] [address] Social History Tobacco Use Types Packs/Day Years Used Date Smoking Tobacco: Never Smokeless Tobacco: Never Sex Assigned at Date Recorded Not on file documented as of this encounter Plan of Treatment Not on filedocumented as of this encounter Procedures Procedure Name Priority Date/Time Associated Diagnosis Comme nts Z THERAPEUTIC Routine 03/09/2019 3:43 PM STEPDOWN NURSE Lumbar pain ACTIVITIES ZZ THERAPEUTIC Routine 03/09/2019 3:43 PM STEPDOWN NURSE Lumbar pain EXERCISES documented in this encounter Visit Diagnoses Diagnosis Lumbar pain - Primary Lumbago documented in this encounter Care Teams Bobbin Sorter Relationship Specialty Start Date End Date Idalmis Sloan PCP - General Family Practice 11/04/13 documented as of this encounter
--- OUTSIDE RECORDS SUMMARY | 2022-01-28 14:19 | XMS_ITS | Encounter Summary ---
:1950 Author Organization [place] Address [address] [place] [address] Care Team Providers Name Role Phone Idalmis [...] on filedocumented in this encounter Care Teams Final Operations Technician Relationship Specialty Start Date End Date Idalmis Sloan PCP - General Family Practice 11/04/13 documented as of this encounter
--- OUTSIDE RECORDS SUMMARY | 2022-01-28 14:19 | XMS_ITS | Encounter Summary ---
:1950 Author Organization [place] Address [facility] [place] [address] Care Team Providers Name Role Phone Idalmis Sloan Primary Care Provider Encounter Details Date Type Department Care Team Description 11/12/2015 [facility] Other postprocedural status(V45.89); Rehabilitation [address] [address] Sprain of l eft rotator cuff capsule, subsequent encounter Services [facility] [address] [place] [address] [address] [address] [place] [address] (Work) [phone] Social History Tobacco Use Types Packs/Day Years [...] abd), MMT: L ER=3-/5, flex=3-/5, Abd=3-/5, PROM: reqz=805, joint creptation noted with painful movement, Fvb=495, ER=45 ASSESSMENT/PLAN Updated problem list and treatment [...] Comme nts [facility] NEUROMUSCULAR Routine 11/12/2015 3:40 PM Other postprocedu ral RE-EDUCATION CDT status(V45.89) Sprain of left rotator cuff capsule, subsequent encounter [facility] THERAPEUTIC Routine 11/12/2015 3:40 PM Other postprocedura l EXERCISES CDT status(V45.89) Sprain of left rotator cuff capsule, subsequent encounter documented in this encounter Visit Diagnoses Diagnosis Other postprocedural status(V45.89) Other postprocedural status Sprain of left rotator cuff capsule, sub sequent encounter documented in this encounter Care Teams Filter Press Supervisor Relationship Specialty Start Date End Date Idalmis Sloan PCP - General Family Practice 11/04/13 documented as of this encounter
--- OUTSIDE RECORDS SUMMARY | 2022-01-28 14:19 | XMS_ITS | Encounter Summary ---
:1950 Author Organization [place] Address [address] [place] [address] Care Team Providers Name Role Phone Idalmis Sloan Primary Care Provider Encounter Details Date Type Department Care Team Description 11/22/2015 Therapy Visit [facility] Sandra Shelton, Sprain of left rotator cuff capsule, subsequent encounter (Primary Dx); Rehabilitation ATC Other postprocedural status(V45.89) Services [facility] Specialty Care [facility] [address] [place] [address] [place] [address] [address] [place] [address] [phone] Social History Tobacco Use Types Packs/Day Years Used Date Smoking Tobacco: Never Assessed Sex Assigned at Date Recorded Not on file documented as of this encounter Plan of Treatment Not on filedocumented as of this encounter Procedures Procedure Name Priority Date/Time Associated Diagnosis Comme nts [facility] NEUROMUSCULAR Routine 11/22/2015 4:54 PM Sprain of left ro tator RE-EDUCATION CDT cuff capsule, subsequent encounter Other postprocedural status(V45.89) [facility] THERAPEUTIC Routine 11/22/2015 4:54 PM Sprain of left rota tor EXERCISES CDT cuff capsule, subsequent encounter Other postprocedural status(V45.89) [facility] HOT OR COLD PACKS Routine 11/22/2015 4:54 PM Sprain of lef t rotator THERAPY CDT cuff capsule, subsequent encounter Other postprocedural status(V45.89) documented in this encounter Visit Diagnoses Diagnosis Sprain of left rotator cuff capsule, sub sequent encounter - Primary Other postprocedural status(V45.89) Other postprocedural status documented in this encounter Care Teams Lab Clerk Relationship Specialty Start Date End Date Idalmis Sloan PCP - General Family Practice 11/04/13 documented as of this encounter
--- OUTSIDE RECORDS SUMMARY | 2022-01-28 14:19 | XMS_ITS | Encounter Summary ---
:1950 Author Organization [place] Address [facility] [place] [address] Care Team Providers Name Role Phone Idalmis Sloan Primary Care Provider Reason for Visit [facility] Physical Therapy (Routine) - Denied Specialty Diagnoses / Procedures Referred By Contact Refer red To Contact Physical Therapy Diagnoses >4 s/p L rot tiff / mehdi lorenzana @ ortho / [employer] 30 visits per year Mehdi Gaffney MD Judd, Laurie, PT Procedures [facility] AND [id number] [place] [address] DR [facility] [address] [place] [id number] [place] [address] Referral ID Status Reason Start Date Expiration Date Visits V isits Requested Authorized KIMBER/WC/PT/L Denied 06/11/2015 06/10/2016 14 0 SHLDR POST [id number] Encounter Details Date Type Department Care Team Description 08/09/2015 [facility] Sprain of left rotator cuff capsule, sub sequent encounter (Primary Dx); Rehabilitation [address] MARYANA Other postp rocedural status(V45.89) Services [address] [facility] [address] [place] [address] [address] [address] [place] [address] (Work) [phone] Social History Tobacco Use Types Packs/Day Years Used Date Smoking Tobacco: Never Assessed Sex Assigned at Date Recorded Not on file documented as of this encounter Plan of Treatment Not on filedocumented as of this encounter Procedures Procedure Name Priority Date/Time Associated Diagnosis Comme nts [facility] NEUROMUSCULAR Routine 08/10/2015 10:23 AM Sprain of left r otator RE-EDUCATION CDT cuff capsule, subsequent encounter Other postprocedural status(V45.89) [facility] THERAPEUTIC Routine 08/10/2015 10:23 AM Sprain of left rot ator EXERCISES CDT cuff capsule, subsequent encounter Other postprocedural status(V45.89) documented in this encounter Visit Diagnoses Diagnosis Sprain of left rotator cuff capsule, sub sequent encounter - Primary Other postprocedural status(V45.89) Other postprocedural status documented in this encounter Care Teams Zipper Setter Relationship Specialty Start Date End Date Idalmis Sloan PCP - General Family Practice 11/04/13 documented as of this encounter
--- OUTSIDE RECORDS SUMMARY | 2022-01-28 14:19 | XMS_ITS | Encounter Summary ---
:1950 Author Organization [place] Address [address] [facility] [place] [address] Care Team Providers Name Role Phone Idalmis Sloan Primary Care Provider Reason for Visit [facility] Physical Therapy (Routine) - Closed Specialty Diagnoses / Procedures Referred By Contact Refer red To Contact District Claims Manager Diagnoses >4 Lefft side hip pain, LBP / Idalmis Sloan MD@ [email or web address] / [facility] /referral exists 20V thru 03.01.18(MSG) Idalmis Sloan Linda, PTA / Physical Therapy Procedures SPINE FOLLOW UP [facility] [address] [place] [address] Referral ID Status Reason Start Date Expiration Date Visits Requ ested Visits Authorized [id number] Closed 03/16/2018 03/01/2019 20 18 Encounter Details Date Type Department Care Team Description 03/22/2018 Therapy Visit [facility] [place], Hip josefina n, left Rehabilitation Services [facility] [place] [address] [facility] [address] [place] [address] Social History Tobacco Use Types [...] Procedure Name Priority Date/Time Associated Diagnosis Comme [facility] THERAPEUTIC Routine 03/23/2018 12:46 PM Hip pain, left EXERCISES DESIGN ENGINEERING INTERN documented in this encounter Visit Diagnoses Diagnosis Hip pain, left Pain in joint, pelvic region and thigh documented in this encounter Care Teams Guest Relations Agent Relationship Specialty Start Date End Date Idalmis Sloan PCP - General Family Practice 11/04/13 documented as of this encounter
--- OUTSIDE RECORDS SUMMARY | 2022-01-28 14:19 | XMS_ITS | Encounter Summary ---
:1950 Author Organization [place] Address [address] [facility] [place] [address] Care Team Providers Name Role Phone Idalmis Sloan Primary Care Provider Encounter Details Date Type Department Care Team Description 10/02/2015 Telephone [facility] Madelin Brown, RN [address] [place] [address] Social History Tobacco Use Types Packs/Day [...] on filedocumented in this encounter Care Teams Plumbers And Top Helpers Relationship Specialty Start Date End Date Idalmis Sloan PCP - General Family Practice 11/04/13 documented as of this encounter
--- OUTSIDE RECORDS SUMMARY | 2022-01-28 14:19 | XMS_ITS | Encounter Summary ---
:1950 Author Organization [place] Address Pending sale to [facility] [place] [address] Care Team Providers Name Role Phone Idalmis Sloan Primary Care Provider Reason for Visit KIMBER Physical Therapy (Routine) - Closed Specialty Diagnoses / Procedures Referred By Contact Refer red To Contact Physical Therapy Diagnoses >4, Back / Mercy Pedro @ [facility] / BCBS Mercy Vasquez, MILL CRANE OPERATOR Daniel Shi, PT Procedures SPINE INITIAL [facility] PAIN [facility] [address] [place] [address] [place] [address] [place] [address] Referral ID Status Reason Start Date Expiration Date Visits Requ ested Visits Authorized [id number] Closed 07/22/2017 03/01/2018 20 18 Encounter Details Date Type Department Care Team Description 02/25/2018 Therapy Visit [facility] Jensen Hernandez, PT Hip pain, left Rehabilitation Services [address] MARYANA NELSON (Primary Dx) [id number] [place] [id number] [place] [address] [address] [place] [address] (Work) [phone] Social History Tobacco Use Types Packs/Day Years Used Date Smoking Tobacco: Never Smokeless Tobacco: Never Sex Assigned at Date Recorded Not on file documented as of this encounter Progress Notes Jensen Hernandez, PT - 02/25/2018 4:00 PM CST [facility] Initial Evaluation Subjective: History of left hip pain for years with increased symptoms 1 month ago secondary to OA. Pt referred by MD for physical therapy on 02-05-18 The history is provided by the patient. No reweaver was used. Krys Mosher is a 67 [...] Right: Min loss+ Rotation: Left: Right: Side Russell: Left: Right: Strength: weak lower abdominals and [...] and time spent performing 1:1 timed codes. ENT APPOINTMENT COORDINATOR documented in this encounter Plan of Treatment Not on filedocumented as of this encounter Procedures Procedure Name Priority Date/Time Associated Diagnosis Comme [facility] ZZC THERAPEUTIC Routine 02/25/2018 5:05 PM PATIENT APPOINTMENT COORDINATOR Hip pain, left EXERCISES documented in this encounter Visit Diagnoses Diagnosis Hip pain, left - Primary Pain in joint, pelvic region and thigh documented in this encounter Care Teams Thermal Cutting Tracer Machine Operator Relationship Specialty Start Date End Date Idalmis Sloan PCP - General Family Practice 11/04/13 documented as of this encounter
--- OUTSIDE RECORDS SUMMARY | 2022-01-28 14:19 | XMS_ITS | Encounter Summary ---
:1950 Author Organization [place] Address [facility] [place] [address] Care Team Providers Name Role Phone Idalmis Sloan Primary Care Provider Reason for Visit KIMBER Physical Therapy (Routine) - Denied Specialty Diagnoses / Procedures Referred By Contact Refer red To Contact Physical Therapy Diagnoses >4 s/p L rot tiff / mehdi lorenzana @ ortho / BCBS 30 visits per year Mehdi Gaffney MD Judd, Laurie, PT Procedures EXTREMITY INITIAL ORTHOPAEDIC AND [id number] [place] [address] [facility] [address] [place] [id number] [place] [id number] Referral ID Status Reason Start Date Expiration Date Visits V isits Requested Authorized KIMBER/WC/PT/L Denied 06/11/2015 06/10/2016 14 0 SHLDR POST [id number] Encounter Details Date Type Department Care Team Description 08/21/2015 Therapy Visit [facility] Venice Wheeler, PT Sprain of left rotator cuff capsule, sub sequent encounter (Primary Dx); Rehabilitation [address] MARYANA Other postp rocedural status(V45.89) Services [address] [facility] [address] [place] [address] [address] [address] [place] [address] (Work) [phone] Social History Tobacco Use Types Packs/Day Years Used Date Smoking Tobacco: Never Assessed Sex Assigned at Date Recorded Not on file documented as of this encounter Plan of Treatment Not on filedocumented as of this encounter Procedures Procedure Name Priority Date/Time Associated Diagnosis Comme nts [facility] NEUROMUSCULAR Routine 08/21/2015 3:47 PM Sprain of left ro tator RE-EDUCATION CDT cuff capsule, subsequent encounter Other postprocedural status(V45.89) [facility] THERAPEUTIC Routine 08/21/2015 3:47 PM Sprain of left rota tor EXERCISES CDT cuff capsule, subsequent encounter Other postprocedural status(V45.89) documented in this encounter Visit Diagnoses Diagnosis Sprain of left rotator cuff capsule, sub sequent encounter - Primary Other postprocedural status(V45.89) Other postprocedural status documented in this encounter Care Teams Vocational Adviser Relationship Specialty Start Date End Date Idalmis Sloan PCP - General Family Practice 11/04/13 documented as of this encounter
--- OUTSIDE RECORDS SUMMARY | 2022-01-28 14:19 | XMS_ITS | Encounter Summary ---
:1950 Author Organization [place] Address [facility] [place] [address] Care Team Providers Name Role Phone Idalmis Sloan Primary Care Provider Reason for Visit Reason Comments Wound Infection Back Pain Nausea Diarrhea Auth/Cert Specialty Diagnoses / Procedures Referred By Contact Refer red To Contact Med Surg Diagnoses Cellulitis of right foot H/O Clostridium difficile infection Diarrhea, unspecified type Cellulitis of right foot Observation Dept [address] [place], [place] [address] Phone: Referral ID Status Reason Start Date Expiration Date Visits Requ ested Visits Authorized [id number] 1 1 Encounter Details Date Type Department Care Team Description 11/04/2018 - [facility] Codie Morales MD [facility] [address] [place] [id number] Cellulitis of right foot; 11/06/2018 [facility] Observation Chuck Cook MD [address] [place] [address] Diarrhea, unspecified type; Dept H/O Clostridium difficile in fection [address] [place] [address] Social History Tobacco Use Types [...] Branch PA-C - 11/06/2018 8:24 AM CDT [facility] Hospitalist Discharge Summary Date of Admission: [...] difficile than other alternatives. Pain controlled with RECOVERY ASSISTANT medications. No signs of sepsis. Diarrhea resolved while hospitalized, if recurrent suggest further outpatient work-up. Consultations This Hospital Stay None Code Status Full Code Time Spent on this Encounter I, Dayna Branch PA-C, personally saw the patient today and spent greater than 30 minutes discharging this patient. Dayna Branch PA-C [facility] Physical Exam Vital Signs: Temp: 97.5 [...] Stephens PA-C - 11/05/2018 12:30 PM CDT [facility] Observation Unit Hospitalist Progress Note Name: [...] regimen of Methadone 5 mg BID and [place] 5-325 mg PRN TID #Diarrhea: reported 12 episodes of diarrhea the day prior to admission with only 2 episodes since arriving to the hospital. C diff negative. If increased diarrhea consider checking enteric panel. #Stable medical conditions: hypertension, hypercholesterolemia, GERD, PVD, hepatitis C, necessary RECOVERY ASSISTANT medications have been resumed. DVT Prophylaxis: Ambulate [...] contact Infection Prevention with any questions/concerns at *[phone]. Erica Jolly, VIKASH Grisel Samson RN - 11/04/2018 10:04 PM CDT ROOM # 205 Living Situation (if not independent, order SW consult): Home with Facility name: front desk person: Cheikh [phone] Activity level at baseline: Independent Activity level [...] Cook MD - 11/04/2018 9:58 PM CDT [facility] History and Physical Hospitalist Service Chuck [...] Full Code Primary Care Physician: Idalmis Sloan [phone] Chief Complaint: Swelling and redness of right [...] Samson RN - 11/04/2018 8:36 PM CDT [facility] ED Nurse Handoff Report Krys Mosher [...] 1. Lift room needed: No. 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 Infection: C-Diff Pending. [...] provider's statements to me. Diana López 11/04/2018 [facility] EMERGENCY [facility] Mervin Morales MD 11/04/18 7045 documented in this encounter Miscellaneous Notes Plan [...] Yes, SBA via gait belt and walker. Patient Support Assistant Nurse Safe discharge environment identified: Yes Barriers [...] to near baseline physical activity: Yes Patient Support Assistant Nurse Safe discharge environment identified: Yes Barriers [...] to near baseline physical activity: Yes Patient Support Assistant Nurse Safe discharge environment identified: Yes Barriers [...] Pain status: Improved-controlled with oral pain medications. [place] dose ordered 1x 4. Return to near baseline physical activity: Yes Up with SBA 1 walker Patient Support Assistant Nurse Safe discharge environment identified: Yes Barriers [...] L foot,pain at 8 sharp and shooting. [place] last at 1645, hx of chronic pain. thanks Plan of Care - Elizabeth Chong RN - 11/05/2018 3:31 PM CDT PRIMARY DIAGNOSIS: GENERIC NURSING OUTPATIENT/OBSERVATION GOALS TO BE MET BEFORE DISCHARGE: ADLs back to baseline: Yes Activity and level of assistance: Up with standby assistance. Pain status: Improved-controlled with oral pain medications. Return to near baseline physical activity: No Patient Support Assistant Nurse Safe discharge environment identified: Yes Barriers [...] to near baseline physical activity: Yes Patient Support Assistant Nurse Safe discharge environment identified: Yes Barriers [...] Return to near baseline physical activity: No Patient Support Assistant Nurse Safe discharge environment identified: Yes Barriers [...] to continue with antibiotics and manage symptoms. Patient Support Assistant Nurse Safe discharge environment identified: Yes Barriers [...] to continue with antibiotics and manage symptoms. Patient Support Assistant Nurse Safe discharge environment identified: Yes Barriers to discharge: No Entered by: Grisel Samson 11/05/2018 Please review provider order for any additional goals. Nurse to notify provider when observation goals have been met and patient is ready for discharge. Pharmacy-Admission Medication History - Lazara Fontenot RPH - 11/04/2018 11:35 PM CDT 11/05 Addendum: per clarification with patient, added [place] 5-325 mg (1 tab TID prn) to [employer] RECOVERY ASSISTANT med list. Left sticky note to provider to review additional med. Lazara Fontenot PharmCecyD. Admission medication history interview status for this patient is complete. See [facility] admission navigator for allergy information, prior to admission medications and immunization status. Medication history interview source(s):Patient Medication history resources (including written lists, pill bottles, clinic record):[facility] records from [facility] Changes made to [facility] medication list: Added: all Medication reconciliation/reorder completed [...] 3.4 - 5.3 11/05/2018 [facility] mmol/L 5:50 PM CDT HOSPITAL Specimen Anatomical Collection Method Collection Time Receive d Time (Source) Location / / Volume Laterality Blood specimen 11/05/2018 5:27 PM 019 5:28 (specimen) CDT PM CDT Kelly Stephens PA-C LAB - BLOOD ORDERABLES Performing Organization Address City/State/ZIP Code Phon e Number [facility] [address] [place], [place] [address] [facility] [address] [phone] (ABNORMAL) CBC with platelets (11/05/2018 6:42 AM CDT) Analysis Performed At Patho logist Time Signature WBC 8.8 4.0 - 11.0 11/05/2018 [facility] 10e9/L 7:04 AM [facility] RBC Count 3.60 (L) 3.8 - 5.2 11/05/2018 [facility] 10e12/L 7:04 AM [facility] Hemoglobin 12.3 11.7 - 11/05/2018 [facility] 15.7 g/dL 7:04 AM [facility] Hematocrit 36.4 35.0 - 11/05/2018 [facility] 47.0 % 7:04 AM [facility] MCV 101 (H) 78 - 100 11/05/2018 [facility] fl 7:04 AM [facility] MCH 34.2 (H) 26.5 - 11/05/2018 [facility] 33.0 pg 7:04 AM [facility] MCHC 33.8 31.5 - 11/05/2018 [facility] 36.5 g/dL 7:04 AM [facility] RDW 12.9 10.0 - 11/05/2018 [facility] 15.0 % 7:04 AM [facility] Platelet Count 191 150 - 450 11/05/2018 [facility] 10e9/L 7:04 AM [facility] Specimen Anatomical Collection Method Collection Time Receive d Time (Source) Location / / Volume Laterality Blood specimen 11/05/2018 6:42 AM 019 6:43 (specimen) CDT AM CDT Chuck Cook MD LAB - BLOOD ORDERABLES Performing Organization Address City/State/ZIP Code Phon e Number [facility] [address] [place] [address] HOSPITAL [facility] [address] [phone] (ABNORMAL) Basic metabolic panel (11/05/2018 6:42 AM CDT) P athologist Signature Sodium 137 133 - 144 11/05/2018 [facility] mmol/L 7:16 AM [facility] Potassium 3.3 (L) 3.4 - 5.3 11/05/2018 [facility] mmol/L 7:16 AM [facility] Chloride 101 94 - 109 11/05/2018 [facility] mmol/L 7:16 AM [facility] Carbon Dioxide 30 20 - 32 11/05/2018 [place] mmol/L 7:22 AM [facility] Anion Gap 6 3 - 14 11/05/2018 [place] mmol/L 7:22 AM [facility] Glucose 84 70 - 99 11/05/2018 [place] mg/dL 7:22 AM [facility] Urea Nitrogen 7 7 - 30 11/05/2018 [place] mg/dL 7:22 AM [facility] Creatinine 0.79 0.52 - 11/05/2018 [place] 1.04 mg/dL 7:22 AM [facility] GFR Estimate 77 >60 11/05/2018 [place] mL/min/{1. 7:22 AM [facility] 73_m2} HOSPITAL Comment: Non GFR Calc Starting 02/16/2018, serum creatinine ba sed estimated GFR (eGFR) will be calculated using the Chronic Kidney Dise banner Epidemiology Collaboration (CKD-EPI) equation. GFR Estimate If 89 >60 mL/min/{1.73_m2} 11/05/2018 7: 22 AM [facility] Comment: GFR Calc Starting 02/16/2018, serum creatinine ba sed estimated GFR (eGFR) will be calculated using the Chronic Kidney Dise banner Epidemiology Collaboration (CKD-EPI) equation. Calcium 8.2 (L) 8.5 - 10.1 mg/dL 11/05/2018 7:22 AM [facility] Specimen Anatomical Collection Method Collection Time Receive d Time (Source) Location / / Volume Laterality Blood specimen 11/05/2018 6:42 AM 019 6:43 (specimen) CDT AM CDT Chuck Cook MD LAB - BLOOD ORDERABLES Performing Organization Address City/State/ZIP Code Phon e Number [place] [address] [place] [address] [facility] [address] [place], [place] [address], [facility] [phone] [place] [address] [place] [address], [facility] Clostridium difficile toxin B PCR (11/04/2018 7:49 PM CDT) [facility] Method Time Signature Specimen Feces 11/04/2018 [facility] 7:49 PM CDT [facility] C Diff Toxin B Negative NEG^Negat 11/05/2018 [facility] sung 12:21 AM CDT [facility] Comment: Negative: Clostridium difficile target D NA sequences NOT detected, presumed negative for Clostridium difficile toxin B or the number of bacteria present may be below the limit of detection for the test. FDA approved assay performed using [employer] GeneXpert real-time PCR. A negative result does [...] Organization Address City/State/ZIP Code Phon e Number [address] [address] [facility] [address] [place] [address], [facility] [phone] Blood culture (11/04/2018 4:35 PM CDT) [place] [...] MICRO GENERAL ORDERABL ES Performing Organization Address City/[facility]/ZIP Code Phon e Number INFECTIOUS DISEASES [address] [place] [address] DIAGNOSTIC LABORATORY, [facility] INFECTIOUS DISEASES [address] [place] [address], [place] [facility] (ABNORMAL) Basic metabolic panel (11/04/2018 4:35 PM CDT) P athologist Signature Sodium 136 133 - 144 11/04/2018 [place] mmol/L 7:48 PM [facility] Potassium 3.0 (L) 3.4 - 5.3 11/04/2018 [place] mmol/L 7:48 PM [facility] Chloride 97 94 - 109 11/04/2018 [place] mmol/L 7:48 PM [facility] Carbon Dioxide 31 20 - 32 11/04/2018 [facility] mmol/L 7:54 PM [facility] Anion Gap 8 3 - 14 11/04/2018 [place] mmol/L 7:54 PM [facility] Glucose 74 70 - 99 11/04/2018 [place] mg/dL 7:54 PM [facility] Urea Nitrogen 8 7 - 30 11/04/2018 [place] mg/dL 7:54 PM [facility] Creatinine 0.81 0.52 - 11/04/2018 [facility] 1.04 mg/dL 7:54 PM [facility] GFR Estimate 75 >60 11/04/2018 [place] mL/min/{1. 7:54 PM [facility] 73_m2} [facility] Comment: Non GFR Calc Starting 02/16/2018, serum creatinine ba sed estimated GFR (eGFR) will be calculated using the Chronic Kidney Dise banner Epidemiology Collaboration (CKD-EPI) equation. GFR Estimate If 87 >60 mL/min/{1.73_m2} 11/04/2018 7: 54 PM [facility] Comment: GFR Calc Starting 02/16/2018, serum creatinine ba sed estimated GFR (eGFR) will be calculated using the Chronic Kidney Dise banner Epidemiology Collaboration (CKD-EPI) equation. Calcium 9.0 8.5 - 10.1 mg/dL 11/04/2018 7:54 PM [facility] Specimen Anatomical Collection Method Collection Time Receive d Time (Source) Location / / Volume Laterality Blood specimen 11/04/2018 4:35 PM 019 7:31 (specimen) CDT PM CDT Mervin Morales MD LAB - BLOOD ORDERABLES Performing Organization Address City/State/ZIP Code Phon e Number [facility] [address] [place], [place] [address] [facility] [address] [place], [place] [address] [place] [address] (ABNORMAL) CBC with platelets differential (11/04/2018 4:35 PM CDT) [facility] gist Method Time Signature WBC 9.9 4.0 - 11/04/2018 [facility] 11.0 7:35 PM [facility] 10e9/L [facility] RBC Count 4.22 3.8 - 5.2 11/04/2018 [facility] 10e12/L 7:35 PM [facility] Hemoglobin 14.3 11.7 - 11/04/2018 [facility] 15.7 g/dL 7:35 PM [facility] Hematocrit 42.9 35.0 - 11/04/2018 [facility] 47.0 % 7:35 PM [facility] MCV 102 (H) 78 - 100 11/04/2018 [facility] fl 7:35 PM [facility] MCH 33.9 (H) 26.5 - 11/04/2018 [facility] 33.0 pg 7:35 [facility] MCHC 33.3 31.5 - 11/04/2018 [facility] 36.5 g/dL 7:35 PM [facility] RDW 13.3 10.0 - 11/04/2018 [facility] 15.0 % 7:35 PM [facility] Platelet Count 233 150 - 450 11/04/2018 [facility] 10e9/L 7:35 PM [facility] Diff Method Automated 11/04/2018 [facility] Method 7:35 PM [facility] % Neutrophils 69.4 % 11/04/2018 [facility] 7:35 PM [facility] % Lymphocytes 23.2 % 11/04/2018 [facility] 7:35 PM [facility] % Monocytes 5.9 % 11/04/2018 [facility] 7:35 PM [facility] % Eosinophils 0.8 % 11/04/2018 [facility] 7:35 PM [facility] % Basophils 0.4 % 11/04/2018 [facility] 7:35 PM [facility] % Immature 0.3 % 11/04/2018 [facility] Granulocytes 7:35 PM [facility] Nucleated RBCs 0 0 /100 11/04/2018 [facility] 7:35 PM [facility] Absolute 6.8 1.6 - 8.3 11/04/2018 [place] Neutrophil 10e9/L 7:35 PM [facility] Absolute 2.3 0.8 - 5.3 11/04/2018 [place] Lymphocytes 10e9/L 7:35 PM [facility] Absolute 0.6 0.0 - 1.3 11/04/2018 [facility] Monocytes 10e9/L 7:35 PM [facility] Absolute 0.1 0.0 - 0.7 11/04/2018 [facility] Eosinophils 10e9/L 7:35 PM [facility] Absolute 0.0 0.0 - 0.2 11/04/2018 [place] Basophils 10e9/L 7:35 PM [facility] Abs Immature 0.0 0 - 0.4 11/04/2018 [facility] Granulocytes 10e9/L 7:35 PM [facility] Absolute 0.0 11/04/2018 [facility] Nucleated RBC 7:35 PM [facility] Specimen Anatomical Collection Method Collection Time Receive d Time (Source) Location / / Volume Laterality Blood specimen 11/04/2018 4:35 PM 019 7:31 (specimen) CD[facility] Mervin Mor[facility] MD LAB - BLOOD ORDERABLES Performing Organization Address City/State/ZIP Code Phon e Number [place] [address] [phone] documented in this encounter Visit Diagnoses Diagnosis [...] 500 mg 0822 (Given - Provider: Jesi Calalhan, SANTOS)1400 (Canceled Entry - Provider: Orders Generic [...] mg, Intravenous, ONCE, Administer over 2-5 Minutes, [facility] 11/04/18 at 1959, For 1 dose, [...] - Reason: Patient sleeping)2248 (Given - Provider: sAhley Lyle RN) 50 mg, Oral, AT BEDTIME, [...] 12 HOURS PRN, jim sea, vomiting, Starting [facility] 11/04/18 at 2149, This is Step [...] Oral, EVERY 6 HOURS PRN, vomiting, Starting [facility] 11/04/18 at 2149
This is Step 2 of nausea and vomiting management. Give if nausea not resolved 15 minutes after giving ondansetron (ZOFRAN). If nausea not resolved in 15 minutes, go to Step 3 metoclopramide (REGLAN), if ordered.
Or prochlorperazine (COMPAZINE) Suppository 12.5 mgJump to med 12.5 mg, Rectal, EVERY 12 HOURS PRN, jim sea, vomiting, Starting [facility] 11/04/18 at 2149
This is Step 2 of nausea and vomiting management. Give if nausea not resolved 15 minutes after giving ondanset rei (ZOFRAN). If nausea not resolved in 15 minutes, go to Step 3 metoclopramide (REGLAN), if ordered.
documented in this encounter Care Teams Support Technician Relationship Specialty Start Date End Date Idalmis Sloan PCP - General Family Practice 11/04/13 documented as of this encounter
--- OUTSIDE RECORDS SUMMARY | 2022-01-28 14:19 | XMS_ITS | Encounter Summary ---
:1950 Author Organization [place] Address [facility] [place] [address] Care Team Providers Name Role Phone Idalmis Sloan Primary Care Provider Reason for Visit KIMBER Physical Therapy (Routine) - Denied Specialty Diagnoses / Procedures Referred By Contact Refer red To Contact Physical Therapy Diagnoses >4 s/p L rot tiff / mehdi lorenzana @ ortho / [employer] 30 visits per year Mehdi Gaffney MD Judd, Laurie, PT Procedures EXTREMITY INITIAL ORTHOPAEDIC AND [id number] [place] [address] [facility] [address] [place] [address] Referral ID Status Reason Start Date Expiration Date Visits V isits Requested Authorized KIMBER/WC/PT/L Denied 06/11/2015 06/10/2016 14 0 SHLDR POST [id number] Encounter Details Date Type Department Care Team Description 08/07/[address] [facility] Artie, Sprain of left rotator cuff capsule, subsequent encounter (Primary Dx); Rehabilitation Services CORRINA Melissa r postprocedural status(V45.89) [facility] [address] [place] [address] Social History Tobacco Use Types [...] encounter Other postprocedural status(V45.89) [facility] HOT OR COLD PACKS Routine 08/09/2015 [...] documented in this encounter Care Teams Production Painter Relationship Specialty Start Date End Date Idalmis Sloan PCP - General Family Practice 11/04/13 documented as of this encounter
--- OUTSIDE RECORDS SUMMARY | 2022-01-28 14:19 | XMS_ITS | Encounter Summary ---
:1950 Author Organization [place] Address [address] [place] [address] Care Team Providers Name Role Phone Idalmis [...] filedocumented in this encounter Care Teams Nurse Advocate Relationship Specialty Start Date End Date Idalmis Sloan PCP - General Family Practice 11/04/13 documented as of this encounter
--- OUTSIDE RECORDS SUMMARY | 2022-01-28 14:19 | XMS_ITS | Encounter Summary ---
:1950 Author Organization [place] Address [address] [place] [address] Care Team Providers Name Role Phone Idalmis Sloan Primary Care Provider Encounter Details Date Type Department Care Team Description 11/16/2015 Therapy Visit [facility] [place] Saeed, PT Cervical radiculitis (Primary Dx); Rehabilitation [address] [address] Sprain of l eft rotator cuff capsule, subsequent encounter; Services [place] [address] Other postprocedural status(V45.89) [facility] [place] [address] [address] [address] [place] [address] (Work) [phone] Social History Tobacco Use Types Packs/Day Years Used Date Smoking Tobacco: Never Assessed Sex Assigned at Date Recorded Not on file documented as of this encounter Plan of Treatment Not on filedocumented as of this encounter Procedures Procedure Name Priority Date/Time Associated Diagnosis Comme [facility] Z THERAPEUTIC Routine 11/19/2015 7:32 AM Cervical radi culitis EXERCISES CDT Sprain of left rotator cuff capsule, subsequent encounter Other postprocedural status(V45.89) documented in this encounter Visit Diagnoses Diagnosis Cervical radiculitis - Primary Brachial neuritis or radiculitis nos Sprain of left rotator cuff capsule, sub sequent encounter Other postprocedural status(V45.89) Other postprocedural status documented in this encounter Care Teams Family Resource Management Specialist Relationship Specialty Start Date End Date Idalmis Sloan PCP - General Family Practice 11/04/13 documented as of this encounter
--- OUTSIDE RECORDS SUMMARY | 2022-01-28 14:19 | XMS_ITS | Encounter Summary ---
:1950 Author Organization [place] Address [facility] [place] [address] Care Team Providers Name Role Phone Idalmis Sloan Primary Care Provider Encounter Details Date Type Department Care Team Description 10/02/[address] [facility] [place] Saeed, PT Cervical radiculitis Rehabilitation Services [address] [place] (Primary Dx) [address] [address] [address] [place] [address] (Work) [phone] Social History Tobacco Use Types Packs/Day Years [...] extension) C8 (thumb extension) T1 (finger add/abd) Cloth Desizing Range Operator Chief Strength (lb) Sensory Deficit, Reflexes, Dural Signs: [...] for this information) Short term and intermediate frame tender goals: (See Goal Flow Sheet for [...] Associated Diagnosis Comme nts [facility] MANUAL THER Routine 10/02/2015 4:55 PM CDT Cervical radicu litis TECH,1+REGIONS,EA 15 MIN ZZC THERAPEUTIC Routine 10/02/2015 4:55 PM CDT Cervical radicu litis EXERCISES documented in this encounter Visit Diagnoses Diagnosis Cervical radiculitis - Primary Brachial neuritis or radiculitis nos documented in this encounter Care Teams Power Cleaner Operator Relationship Specialty Start Date End Date Idalmis Sloan PCP - General Family Practice 11/04/13 documented as of this encounter
--- OUTSIDE RECORDS SUMMARY | 2022-01-28 14:19 | XMS_ITS | Encounter Summary ---
:1950 Author Organization [place] Address [address] [place] [address] Care Team Providers Name Role Phone Idalmis [...] on filedocumented in this encounter Care Teams Claims Clerk Relationship Specialty Start Date End Date Idalmis Sloan PCP - General Family Practice 11/04/13 documented as of this encounter
--- OUTSIDE RECORDS SUMMARY | 2022-01-28 14:19 | XMS_ITS | Encounter Summary ---
:1950 Author Organization [place] Address [address] [place] [address] Care Team Providers Name Role Phone Idalmis Sloan Primary Care Provider Encounter Details Date Type Department Care Team Description 09/05/2015 Therapy Visit [facility] [place] Saeed, SHANAE Sprain of left rotator cuff capsule, sub sequent encounter (Primary Dx); Rehabilitation [address] Other postp rocedural status(V45.89) Services [place] [address] [place] [address] [address] [address] [place] [address] (Work) [phone] Social History Tobacco Use Types Packs/Day Years Used Date Smoking Tobacco: Never Assessed Sex Assigned at Date Recorded Not on file documented as of this encounter Plan of Treatment Not on filedocumented as of this encounter Procedures Procedure Name Priority Date/Time Associated Diagnosis Comme nts [facility] NEUROMUSCULAR Routine 09/05/2015 3:16 PM Sprain of left ro tator RE-EDUCATION CDT cuff capsule, subsequent encounter Other postprocedural status(V45.89) [facility] THERAPEUTIC Routine 09/05/2015 3:16 PM Sprain of left rota tor EXERCISES CDT cuff capsule, subsequent encounter Other postprocedural status(V45.89) documented in this encounter Visit Diagnoses Diagnosis Sprain of left rotator cuff capsule, sub sequent encounter - Primary Other postprocedural status(V45.89) Other postprocedural status documented in this encounter Care Teams Motor Vehicle Examiner Relationship Specialty Start Date End Date Idalmis Sloan PCP - General Family Practice 11/04/13 documented as of this encounter
--- OUTSIDE RECORDS SUMMARY | 2022-01-28 14:19 | XMS_ITS | Encounter Summary ---
:1950 Author Organization [place] Address [facility] [place] [address] Care Team Providers Name Role Phone Idalmis Sloan Primary Care Provider Reason for Visit KIMBER Physical Therapy (Routine) - Closed Specialty Diagnoses / Procedures Referred By Contact Refer red To Contact Physical Therapy Diagnoses >4, Back / Mercy Vasquez @ [facility] Pain / BCBS Mercy Vasquez, CONCRETE TILE MACHINE OPERATOR Daniel Shi, PT Procedures SPINE INITIAL [facility] PAIN [facility] [address] [place] [address] [place] [address] [place] [address] Referral ID Status Reason Start Date Expiration Date Visits Requ ested Visits Authorized [id number] Closed 07/22/2017 03/01/2018 20 18 Encounter Details Date Type Department Care Team Description 07/29/2017 Therapy Visit [facility] Daniel Shi Lumba go (Primary Rehabilitation Services PT Dx) [place] [facility] [address] [address] [facility] [address] [place] [address] [phone] Social History Tobacco Use Types Packs/Day Years Used Date Smoking Tobacco: Never Smokeless Tobacco: Never Sex Assigned at Date Recorded Not on file documented as of this encounter Progress Notes Anirudh Wells - 07/29/2017 3:10 PM CDT [facility] Initial Evaluation Krys Mohser is a 67 year old female referred [...] documented in this encounter Care Teams Global Director Air And Climate Change Relationship Specialty Start Date End Date Idalmis Sloan PCP - General Family Practice 11/04/13 documented as of this encounter
--- OUTSIDE RECORDS SUMMARY | 2022-01-28 14:19 | XMS_ITS | Encounter Summary ---
:1950 Author Organization [place] Address [address] [place] [address] Care Team Providers Name Role Phone Idalmis Sloan Primary Care Provider Encounter Details Date Type Department Care Team Description [facility]2019 [facility] (Primary Rehabilitation Services [address] Dx) [address] [address] [address] [address] [place] [address] (Work) [phone] Social History Tobacco Use Types Packs/Day Years Used Date Smoking Tobacco: Never Smokeless Tobacco: Never Sex Assigned at Date Recorded Not on file documented as of this encounter Plan of Treatment Not on filedocumented as of this encounter Procedures Procedure Name Priority Date/Time Associated Diagnosis Comme nts [facility] THERAPEUTIC Routine 02/21/2019 6:20 PM MERCHANDISING DIRECTOR Lumbar pain ACTIVITIES [facility] THERAPEUTIC Routine 02/21/2019 6:20 PM MERCHANDISING DIRECTOR Lumbar pain EXERCISES documented in this encounter Visit Diagnoses Diagnosis Lumbar pain - Primary Lumbago documented in this encounter Care Teams Gre Tutor Relationship Specialty Start Date End Date Idalmis Sloan PCP - General Family Practice 11/04/13 documented as of this encounter
--- OUTSIDE RECORDS SUMMARY | 2022-01-28 14:19 | XMS_ITS | Encounter Summary ---
:1950 Author Organization [place] Address [facility] [place] [address] Care Team Providers Name Role Phone Idalmis Sloan Primary Care Provider Reason for Visit [facility] Physical Therapy (Routine) - Closed Specialty Diagnoses / Procedures Referred By Contact Refer red To Contact Physical Therapy Diagnoses >4, Back / Mercy Pedro @ [facility] Pain / BCBS Mercy Vasquez, SHOWER ROOM ATTENDANT Daniel Shi, PT Procedures SPINE INITIAL [facility] PAIN [facility] [address] [place] [address] [place] [address] [place] [address] Referral ID Status Reason Start Date Expiration Date Visits Requ ested Visits Authorized [id number] Closed 07/22/2017 03/01/2018 20 18 Encounter Details Date Type Department Care Team Description 08/14/2017 Therapy Visit [facility] Jensen Hernandez, PT Lumbago (Primary Dx) Rehabilitation Services [address] [place] [address] DR [facility] [address] [address] [address] [place] [address] (Work) [phone] Social History Tobacco Use Types Packs/Day Years [...] is being advanced to more complex exercises. LOOM TECHNICIAN/ATC plan: N/A Please refer to the daily [...] Primary documented in this encounter Care Teams Match Marker Relationship Specialty Start Date End Date Idalmis Sloan PCP - General Family Practice 11/04/13 documented as of this encounter
--- OUTSIDE RECORDS SUMMARY | 2022-01-28 14:19 | XMS_ITS | Encounter Summary ---
:1950 Author Organization [place] Address [address] [facility] [place] [address] Care Team Providers Name Role Phone Idalmis Sloan Primary Care Provider Reason for Visit Reason Comments Urgent Care Cough cough and sinus pressure, tr eated for bronchitis Encounter Details Date Type Department Care Team Description 04/05/2017 Office Visit [facility] Laith Oliver Acute maxillary Urgent Care Lacy Craig MD sinusitis, recurrence [address] not specified (Primary [facility] [place] [address] Dx) [id number] Social History Tobacco Use Types Packs/Day Years Used Date Smoking Tobacco: Never Smokeless Tobacco: Never Sex Assigned at Date Recorded Not on file documented as of this encounter Last Filed Vital Signs Vital Sign Reading Time Taken Comments Blood Pressure 136/78 04/05/2017 3:01 PM CROP SCOUT Pulse 76 04/05/2017 3:01 PM CROP SCOUT Temperature 36.9 ??C (98.5 ??F) 04/05/2017 3:01 PM CROP SCOUT Respiratory Rate 18 04/05/2017 3:01 PM CROP SCOUT Oxygen Saturation 96% 04/05/2017 3:01 PM CROP SCOUT Inhaled Oxygen Concentration - - Weight 65.8 kg (145 lb) 04/05/2017 3:01 PM CROP SCOUT Height - - Body Mass Index - [...] if getting worse . Laith Oliver MD SCOUT documented in this encounter Nursing Notes Ana [...] calculate BMI. Medication Reconciliation: incomplete Ana Ny SHANK TAPER SCOUT documented in this encounter Plan of Treatment Not on filedocumented as of this encounter Visit Diagnoses Diagnosis Acute maxillary sinusitis, recurrence no t specified - Primary documented in this encounter Care Teams Director Of Software Development Relationship Specialty Start Date End Date Idalmis Sloan PCP - General Family Practice 11/04/13 documented as of this encounter
--- OUTSIDE RECORDS SUMMARY | 2022-01-28 14:19 | XMS_ITS | Encounter Summary ---
:1950 Author Organization [place] Address [address] [place] [address]. [place] [address] Care Team Providers Name Role Phone Idalmis Sloan Primary Care Provider Reason for Visit [facility] Physical Therapy (Routine) - Closed Specialty Diagnoses / Procedures Referred By Contact Refer red To Contact Physical Therapy Diagnoses >4, Back / Mercy Pedro @ [facility] Pain / BCBS Mercy Vasquez, PAINT ROLLER WINDER Daniel Shi, PT Procedures SPINE INITIAL [facility] PAIN [facility] [address] [place] [address] [place] [address] [place] [address] Referral ID Status Reason Start Date Expiration Date Visits Requ ested Visits Authorized [id number] Closed 07/22/2017 03/01/2018 18 Encounter Details Date Type Department Care Team Description 02/16/2018 [facility] Rehabilitation Services [address] [facility] [address] [place] [address] Drive [address] [address] [place] [address] (Work) [phone] Social History Tobacco Use Types Packs/Day Years Used Date Smoking Tobacco: Never Smokeless Tobacco: Never Sex Assigned at Date Recorded Not on file documented as of this encounter Plan of Treatment Not on filedocumented as of this encounter Visit Diagnoses Not on filedocumented in this encounter Care Teams Assistant Teaching Professor Relationship Specialty Start Date End Date Idalmis Sloan PCP - General Family Practice 11/04/13 documented as of this encounter
--- OUTSIDE RECORDS SUMMARY | 2022-01-28 14:19 | XMS_ITS | Encounter Summary ---
:1950 Author Organization [place] Address [address] [place] [address]. [place] [address] Care Team Providers Name Role Phone Idalmis Sloan Primary Care Provider Reason for Visit [facility] Physical Therapy (Routine) - Denied Specialty Diagnoses / Procedures Referred By Contact Refer red To Contact Physical Therapy Diagnoses >4 s/p L rot cuff / mehdi lorenzana @ ortho / BCBS 30 visits per year Mehdi Gaffney MD Judd, Laurie, PT Procedures EXTREMITY INITIAL [facility] AND [id number] [place] [address] [facility] [address] [place] [id number] [place] [address] Referral ID Status Reason Start Date Expiration Date Visits V isits Requested Authorized KIMBER/WC/PT/L Denied 06/11/2015 06/10/2016 14 0 SHLDR POST [id number] Encounter Details Date Type Department Care Team Description 08/03/2015 Therapy Visit [facility] Artie, Sprain of left rotator cuff capsule, subsequent encounter (Primary Dx); Rehabilitation Services CORRINA Melissa postprocedural status(V45.89) [facility] [address] [facility] [address] [place] [address] Social History Tobacco Use Types [...] capsule, subsequent encounter Other postprocedural status(V45.89) [facility] NEUROMUSCULAR Routine 08/03/2015 10:32 AM Sprain of left r otator RE-EDUCATION CDT cuff capsule, subsequent encounter Other postprocedural status(V45.89) [facility] THERAPEUTIC Routine 08/03/2015 10:32 AM Sprain of left rot ator EXERCISES CDT cuff capsule, subsequent encounter Other postprocedural status(V45.89) documented in this encounter Visit Diagnoses Diagnosis Sprain of left rotator cuff capsule, sub sequent encounter - Primary Other postprocedural status(V45.89) Other postprocedural status documented in this encounter Care Teams Air Pollution Specialist Relationship Specialty Start Date End Date Idalmis Sloan PCP - General Family Practice 11/04/13 documented as of this encounter
--- OUTSIDE RECORDS SUMMARY | 2022-01-28 14:19 | XMS_ITS | Encounter Summary ---
:1950 Author Organization [place] Address [address] [place] [address] Care Team Providers Name Role Phone Idalmis [...] on filedocumented in this encounter Care Teams Dietitian Chief Relationship Specialty Start Date End Date Idalmis Sloan PCP - General Family Practice 11/04/13 documented as of this encounter
--- OUTSIDE RECORDS SUMMARY | 2022-01-28 14:19 | XMS_ITS | Encounter Summary ---
:1950 Author Organization [place] Address [facility] [place] [address] Care Team Providers Name Role Phone Idalmis Sloan Primary Care Provider Reason for Visit [facility] Physical Therapy (Routine) - Denied Specialty Diagnoses / Procedures Referred By Contact Refer red To Contact Physical Therapy Diagnoses >4 s/p L rot tiff / mehdi lorenzana @ ortho / BCBS 30 visits per year Mehdi Gaffney MD Judd, Laurie, PT Procedures EXTREMITY IN[facility]IAL [facility] AND [id number] [place] [address] [facility] [address] [place] [id number] [place] [phone] Referral ID Status Reason Start Date Expiration Date Visits V isits Requested Authorized KIMBER/WC/PT/L Denied 06/11/2015 06/10/2016 14 0 SHLDR POST [id number] Encounter Details Date Type Department Care Team Description 08/16/2015 Therapy Visit [facility] [place] Wheeler, PT Sprain of left rotator cuff capsule, sub sequent encounter (Primary Dx); Rehabilitation [address] [place] Other postp rocedural status(V45.89) Services [place] [address] [facility] [address] [place] [address] [address] [address] [place] [address] (Work) [phone] Social History Tobacco Use Types Packs/Day Years Used Date Smoking Tobacco: Never Assessed Sex Assigned at Date Recorded Not on file documented as of this encounter Plan of Treatment Not on filedocumented as of this encounter Procedures Procedure Name Priority Date/Time Associated Diagnosis Comme nts [facility] NEUROMUSCULAR Routine 08/16/2015 5:04 PM Sprain of left ro tator RE-EDUCATION CDT cuff capsule, subsequent encounter Other postprocedural status(V45.89) [facility] THERAPEUTIC Routine 08/16/2015 5:04 PM Sprain of left rota tor EXERCISES CDT cuff capsule, subsequent encounter Other postprocedural status(V45.89) documented in this encounter Visit Diagnoses Diagnosis Sprain of left rotator cuff capsule, sub sequent encounter - Primary Other postprocedural status(V45.89) Other postprocedural status documented in this encounter Care Teams Buffing Machine Tender Relationship Specialty Start Date End Date Idalmis Sloan PCP - General Family Practice 11/04/13 documented as of this encounter
--- OUTSIDE RECORDS SUMMARY | 2022-01-28 14:19 | XMS_ITS | Encounter Summary ---
:1950 Author Organization [place] Address [address] [place] [address] Care Team Providers Name Role Phone Idalmis Sloan Primary Care Provider Encounter Details Date Type Department Care Team Description 11/30/2015 Therapy Visit [facility] [place] Saeed PT Sprain of left rotator cuff capsule, sub sequent encounter (Primary Dx); Rehabilitation [address] [address] Other postp rocedural status(V45.89) Services [place] [address] [place] [address] [address] [address] [place] [address] (Work) [phone] Social History Tobacco Use Types Packs/Day Years Used Date Smoking Tobacco: Never Assessed Sex Assigned at Date Recorded Not on file documented as of this encounter Plan of Treatment Not on filedocumented as of this encounter Procedures Procedure Name Priority Date/Time Associated Diagnosis Comme nts [facility] NEUROMUSCULAR Routine 12/04/2015 1:24 PM Sprain of left RE-EDUCATION CDT rotator cuff capsule, subsequent encounter [facility] THERAPEUTIC EXERCISES Routine 12/04/2015 1:24 PM Sprain of left CDT rotator cuff capsule, subsequent encounter documented in this encounter Visit Diagnoses Diagnosis Sprain of left rotator cuff capsule, sub sequent encounter - Primary Other postprocedural status(V45.89) Other postprocedural status documented in this encounter Care Teams Switcher Relationship Specialty Start Date End Date Idalmis Sloan PCP - General Family Practice 11/04/13 documented as of this encounter
--- OUTSIDE RECORDS SUMMARY | 2022-01-28 14:19 | XMS_ITS | Encounter Summary ---
:1950 Author Organization [place] Address [facility] [place] [address] Care Team Providers Name Role Phone Idalmis Sloan Primary Care Provider Encounter Details Date Type Department Care Team Description 02/16/[address] [facility] Jensen Hernandez, PT Lumbar pain Rehabilitation Services [address] [place] [facility] [address] [place] [address] [place] [place] [address] Social History Tobacco Use Types Packs/Day Years Used Date Smoking Tobacco: Never Smokeless Tobacco: Never Sex Assigned at Date Recorded Not on file documented as of this encounter Progress Notes Jensen Hernandez, PT - 02/16/2019 3:20 PM [facility] Initial Evaluation Subjective: History of lumbar pain for years which has included 3 previous surgeries to her lower back. Pt can'trecall the dates of her surgeries. Pt noted pain of unknown etiology approximately 6 -8 weeks ago. Pt referred by MD for physical therapy on 12-29-18 The history is provided by the patient. No powdered sugar pulverizer operator was used. Type of problem: Lumbar Condition [...] Left: Moderate loss Right: Moderate loss [place]: Left: Right: Strength: weak lower abdominals and [...] Sheet for this information) Short term and alf goals: (See Goal Flow Sheet for this [...] time spent performing 1:1 timed codes. ER PEELER documented in this encounter Plan of Treatment Not on filedocumented as of this encounter Procedures Procedure Name Priority Date/Time Associated Diagnosis Comme [facility] ZZ THERAPEUTIC Routine 02/16/2019 6:42 PM BARKER PEELER Lumbar pain EXERCISES documented in this encounter Visit Diagnoses Diagnosis Lumbar pain Lumbago documented in this encounter Care Teams Manager Business Banking Relationship Specialty Start Date End Date Idalmis Sloan PCP - General Family Practice 11/04/13 documented as of this encounter
--- OUTSIDE RECORDS SUMMARY | 2022-01-28 14:20 | XMS_ITS | Encounter Summary ---
:1950 Author Organization [place] Address [facility] [place] [address] Care Team Providers Name Role Phone Unavailable Primary Care Provider Unavailable Encounter Details Date Type Department Care Team Description 08/23/2010 Historic Notes INTERFACED REPORT Interface, Transcript on, Social History Tobacco Use Types Packs/Day Years Used Date Smoking Tobacco: Never Assessed Sex Assigned at Date Recorded Not on file documented as of this encounter Progress Notes Interface, Retail Loss Prevention Investigator - 12/02/2010 7:36 PM CDT General Information [...] Level of moderate assist (50% patients effort) [place]: - Physical 1 person assist Assist/Nonphysical Assist: Bed Mobility: Sit to Supine - Level of moderate assist (50% patients effort) [place]: - Physical 1 person assist Assist/Nonphysical Assist: Bed Mobility: Supine to Sit - Level of moderate assist (50% patients effort) [place]: - Physical 1 person assist Assist/Nonphysical Assist: Bed Mobility Analysis - Impairments pain; post surgical precautions; decreased Contributing to strength Impaired Bed Mobility: Transfer: Sit to Stand - Level of minimum assist (75% patients effort) [place]: - Physical 1 person assist Assist/Nonphysical Assist: Transfer: Stand to Sit - Level of minimum assist (75% patients effort) [place]: - Physical 1 person assist Assist/Nonphysical Assist: Transfer: Sit/Stand Safety Analysis - Impairments pain; post surgical precautions; decreased Contributing to strength Impaired Transfers: Lower Body Dressing - Level of maximum assist (25% patients effort) [place]: - Physical 1 person assist Assist/Nonphysical Assist: [...] therapy goals): - Demonstrates need for PT; NETWORK ENGINEER ADMINISTRATOR referral to another service: - Predicted Duration of 3-4 days Therapy: - Predicted Frequency daily of Therapy: - Discharge Rehabilitation facility; TCU versus home with Destination: assist pending progress - Anticipated Equipment Illustrator Set; Dressing equipment at Discharge: - Risks and [...]
--- OUTSIDE RECORDS SUMMARY | 2022-01-28 14:20 | XMS_ITS | Encounter Summary ---
:1950 Author Organization [place] Address [address] [place] [address] Care Team Providers Name Role Phone Idalmis Sloan Primary Care Provider Ana Jacobs PA-C Unavailable Madhav Matute MD Unavailable Encounter Details Date Type Department Care Team Description 11/21/2014 External Order [facility] Outside, Provider Results Rehabilitation Services [facility] [id number] [place] [address] [address] [place] [address] Social History Tobacco Use Types [...] documented as of this encounter Care Teams Tool Marker Relationship Specialty Start Date End Date Idalmis Sloan Ann PCP - General Family Practice 11/04/13 Ana Jacobs PA-C Assigned Neuroscience 11/04/20 12/01/20 [facility] Provider [address] [id number] Madhav Matute MD Assigned Neuroscience 12/02/20 [address] [place] [address] [id number] documented as of this encounter
--- OUTSIDE RECORDS SUMMARY | 2022-01-28 14:20 | XMS_ITS | Encounter Summary ---
:1950 Author Organization [place] Address [facility] [place] [address] Care Team Providers Name Role Phone Idalmis Sloan Primary Care Provider Encounter Details Date Type Department Care Team Description 11/15/2014 Therapy Visit [facility] Belén Alva Fidelia oulder pain Rehabilitation Services FORKLIFT WHEEL LOADER (Apoorva womack Dx) [facility] [address] [facility] [address] [place] [address] Social History Tobacco Use Types [...] region documented in this encounter Care Teams Med Spa Manager Relationship Specialty Start Date End Date Idalmis Sloan PCP - General Family Practice 11/04/13 documented as of this encounter
--- OUTSIDE RECORDS SUMMARY | 2022-01-28 14:20 | XMS_ITS | Encounter Summary ---
:1950 Author Organization [place] Address [address] [place] [address] Care Team Providers Name Role Phone Unavailable Primary Care Provider Unavailable Encounter Details Date Type Department Care Team Description 08/21/2010 Operative Report [facility] Jose Comer (Labor Arbitrator) [facility] MD Dipti Results [facility] [address] [facility] [address] [place] [address] Social History Tobacco Use Types [...] of pedicle screw mary fixation, L3-L4 (CD). 8.[place] of autogenous bone marrow, right ilium. SURGEON: Jose Comer MD CARRIAGE RIDER: Bethany Chaparro PA-C, INDICATIONS FOR PROCEDURE: Krys [...] of L2 and L4 with a #1 Dragoon, and then using a 4 mm Kerrison [...] of L2 and L4, using a #1 Dragoon, and then with the help of a [...] The set nuts were torqued to the guest relations manager's specifications with a torque wrench. The wound [...] in good condition. Revised: , , Document: [id number], EM#[email or web address] Electronically signed on 08/22/2010 06:48 by JOSE COMER MD MT: [email or web address] Name: KRYS MOSHER Account: [id number] : 1950 Procedure Date: 08/21/2010 Document: [id number] cc: Idalmis Sloan MD documented in this encounter Plan of Treatment Not on filedocumented as of this encounter Visit Diagnoses Not on filedocumented in this encounter
--- OUTSIDE RECORDS SUMMARY | 2022-01-28 14:20 | XMS_ITS | Encounter Summary ---
:1950 Author Organization [place] Address [facility] [place] [address] Care Team Providers Name Role Phone Idalmis Sloan Primary Care Provider Reason for Visit KIMBER Physical Therapy (Routine) - Denied Specialty Diagnoses / Procedures Referred By Contact Refer red To Contact Physical Therapy Diagnoses >4 s/p L rot tiff / mehdi lorenzana @ ortho / BCBS 30 visits per year Mehdi Gaffney MD Judd, Laurie, PT Procedures [facility] AND [id number] [place] [address] [facility] [address] [place] [id number] [place] [address] Referral ID Status Reason Start Date Expiration Date Visits V isits Requested Authorized KIMBER/WC/PT/L Denied 06/11/2015 06/10/2016 14 0 SHLDR POST [id number] Encounter Details Date Type Department Care Team Description 07/03/2015 Therapy Visit M [facility] [place] Wheeler, PT Sprain of left rotator cuff capsule, sub sequent encounter (Primary Dx); Rehabilitation [address] MARYANA Other postp rocedural status(V45.89) Services [place] [address] [place] [address] [address] [address] [place] [address] (Work) [phone] Social History Tobacco Use Types Packs/Day Years Used Date Smoking Tobacco: Never Assessed Sex Assigned at Date Recorded Not on file documented as of this encounter Plan of Treatment Not on filedocumented as of this encounter Procedures Procedure Name Priority Date/Time Associated Diagnosis Comme nts [facility] NEUROMUSCULAR Routine 07/04/2015 2:00 PM Sprain of left ro tator RE-EDUCATION CDT cuff capsule, subsequent encounter Other postprocedural status(V45.89) [facility] THERAPEUTIC Routine 07/04/2015 2:00 PM Sprain of left rota tor EXERCISES CDT cuff capsule, subsequent encounter Other postprocedural status(V45.89) documented in this encounter Visit Diagnoses Diagnosis Sprain of left rotator cuff capsule, sub sequent encounter - Primary Other postprocedural status(V45.89) Other postprocedural status documented in this encounter Care Teams Rubber Down Relationship Specialty Start Date End Date Idalmis Sloan PCP - General Family Practice 11/04/13 documented as of this encounter
--- OUTSIDE RECORDS SUMMARY | 2022-01-28 14:20 | XMS_ITS | Encounter Summary ---
:1950 Author Organization [place] Address [facility] [place] [address] Care Team Providers Name Role Phone Unavailable Primary Care Provider Unavailable Encounter Details Date Type Department Care Team Description 08/23/2010 Hospital Laboratory [facility] Results Carlos simmons PA-C [facility] [address] [address] (Wo rk) Social History Tobacco Use Types [...] Signature Hemoglobin 10.4 (L) 11.7 - 15.7 [place] g/dL [facility] Specimen Anatomical Collection Method Collection Time Receive d Time (Source) Location / / Volume Laterality 08/23/2010 7:30 AM 1 7:38 CDT AM CDT Maame Chaparro PA-C LAB - BLOOD ORDERABLES Performing Organization Address City/State/ZIP Code Phon e Number [facility] [address] [place], [place] [address] [facility] (ABNORMAL) Basic metabolic panel (08/23/2010 7:30 AM CDT) P athologist Signature Sodium 138 133 - 144 [place] mmol/L [facility] Potassium 4.1 3.4 - 5.3 [place] mmol/L [facility] Chloride 108 94 - 109 [place] mmol/L [facility] Carbon Dioxide 26 20 - 32 [place] mmol/L [facility] Anion Gap 4 (L) 6 - 17 [place] mmol/L [facility] Glucose 101 (H) 60 - 99 [place] mg/dL [facility] Urea Nitrogen 7 7 - 30 [place] mg/dL [facility] Creatinine 0.69 0.52 - [facility] 1.04 mg/dL [facility] GFR Estimate 87 >60 [place] mL/min/1.[address] [place] [address] LAB GFR Estimate If >90 >60 [place] Black mL/min/1.[address] [place] [address] LAB Calcium 8.3 (L) 8.5 - 10.4 [place] mg/dL [facility] Specimen Anatomical Collection Method Collection Time Receive d Time (Source) Location / / Volume Laterality 08/23/2010 7:30 AM 1 7:38 CDT AM CDT Maame Chaparro PA-C LAB - BLOOD ORDERABLES Performing Organization Address City/State/ZIP Code Phon e Number [facility] [address] [place], [place] [address] [facility] documented in this encounter Visit Diagnoses Not on filedocumented in this encounter
--- OUTSIDE RECORDS SUMMARY | 2022-01-28 14:20 | XMS_ITS | Encounter Summary ---
:1950 Author Organization [place] Address [facility] [place] [address] Care Team Providers Name Role Phone Idalmis Sloan Primary Care Provider Reason for Visit KIMBER Physical Therapy (Routine) - Denied Specialty Diagnoses / Procedures Referred By Contact Refer red To Contact Physical Therapy Diagnoses >4 s/p L rot tiff / mehdi lorenzana @ ortho / BCBS 30 visits per year Mehdi Gaffney MD Judd, Laurie, PT Procedures [facility] AND [id number] [place] [address] [facility] [address] [place] [address] Referral ID Status Reason Start Date Expiration Date Visits V isits Requested Authorized KIMBER/WC/PT/L Denied 06/11/2015 06/10/2016 14 0 SHLDR POST [id number] Encounter Details Date Type Department Care Team Description 06/27/2015 Therapy Visit M [facility] Artie, Sprain of left rotator cuff capsule, subsequent encounter (Primary Dx); Rehabilitation Services CORRINA Melissa r postprocedural status(V45.89) [facility] [address] [facility] [address] [place] [address] Social History Tobacco Use Types Packs/Day Years Used Date Smoking Tobacco: Never Assessed Sex Assigned at Date Recorded Not on file documented as of this encounter Plan of Treatment Not on filedocumented as of this encounter Procedures Procedure Name Priority Date/Time Associated Diagnosis Comme [facility] ZZC THERAPEUTIC Routine 06/27/2015 8:29 PM Sprain of left rota tor EXERCISES CDT cuff capsule, subsequent encounter Other postprocedural status(V45.89) [facility] HOT OR COLD PACKS Routine 06/27/2015 8:29 PM Sprain of lef t rotator THERAPY CDT cuff capsule, subsequent encounter Other postprocedural status(V45.89) documented in this encounter Visit Diagnoses Diagnosis Sprain of left rotator cuff capsule, sub sequent encounter - Primary Other postprocedural status(V45.89) Other postprocedural status documented in this encounter Care Teams Party Plan Demonstrator Relationship Specialty Start Date End Date Idalmis Sloan PCP - General Family Practice 11/04/13 documented as of this encounter
--- OUTSIDE RECORDS SUMMARY | 2022-01-28 14:20 | XMS_ITS | Encounter Summary ---
:1950 Author Organization [place] Address [address] [place] [address] Care Team Providers Name Role Phone Unavailable [...] Waleska Alcaraz - 03/21/2012 7:37 PM CST [place] [facility] Triage Call Report Patient Name: Krys Mosher Call Date & Time: 03/21/2012 11:00:19AM Patient PCP Name: Idalmis Sloan MRN: Patient Address: [address] [address] Patient Date of : 1950 Age: 61 yr. Patient Gender: Female Senior Gl Accountant Name: Idalmis Bolaños Presenting Problem: Krys has [...] Procedure Note: .Other right foot surgery 2006 EXAMINER documented in this encounter Plan of Treatment Not on filedocumented as of this encounter Visit Diagnoses Not on filedocumented in this encounter
--- OUTSIDE RECORDS SUMMARY | 2022-01-28 14:20 | XMS_ITS | Encounter Summary ---
:1950 Author Organization [place] Address [facility] [place] [address] Care Team Providers Name Role Phone Unavailable Primary Care Provider Unavailable Encounter Details Date Type Department Care Team Description 08/22/2010 Hospital Laboratory [facility] Results Carlos simmons PA-C [facility] [address] [address] (Wo rk) Social History Tobacco Use Types [...] Signature Hemoglobin 10.4 (L) 11.7 - 15.7 [place] g/dL [facility] Specimen Anatomical Collection Method Collection Time Receive d Time (Source) Location / / Volume Laterality 08/22/2010 7:55 AM 1 7:58 CDT AM CDT Maame Chaparro PA-C LAB - BLOOD ORDERABLES Performing Organization Address City/State/ZIP Code Phon e Number [facility] [address] [place] [address] [facility] (ABNORMAL) Basic metabolic panel (08/22/2010 7:55 AM CDT) P athologist Signature Sodium 138 133 - 144 [place] mmol/L [facility] Potassium 4.2 3.4 - 5.3 [place] mmol/L [facility] Chloride 107 94 - 109 [place] mmol/L [facility] Carbon Dioxide 24 20 - 32 [place] mmol/L [facility] Anion Gap 8 6 - 17 [place] mmol/L [facility] Glucose 112 (H) 60 - 99 [place] mg/dL [facility] Urea Nitrogen 10 7 - 30 [place] mg/dL [facility] Creatinine 0.74 0.52 - [facility] 1.04 mg/dL [facility] GFR Estimate 80 >60 [place] mL/min/1.[address] [place] [address] LAB GFR Estimate If >90 >60 [place] Black mL/min/1.[address] [place] [address] LAB Calcium 7.7 (L) 8.5 - 10.4 [place] mg/dL [facility] Specimen Anatomical Collection Method Collection Time Receive d Time (Source) Location / / Volume Laterality 08/22/2010 7:55 AM 1 7:58 CDT AM CDT Maame Chaparro PA-C LAB - BLOOD ORDERABLES Performing Organization Address City/State/ZIP Code Phon e Number [place] [address] [place] [address] [facility] documented in this encounter Visit Diagnoses Not on filedocumented in this encounter
--- OUTSIDE RECORDS SUMMARY | 2022-01-28 14:20 | XMS_ITS | Encounter Summary ---
:1950 Author Organization [place] Address [facility] [place] [address] Care Team Providers Name Role Phone Idalmis Sloan Primary Care Provider Reason for Visit KIMBER Physical Therapy (Routine) - Denied Specialty Diagnoses / Procedures Referred By Contact Refer red To Contact Physical Therapy Diagnoses >4 s/p L rot tiff / mehdi lorenzana @ ortho / BCBS 30 visits per year Mehdi Gaffney MD Judd, Laurie, PT Procedures [facility] AND [id number] [place] [address] [facility] [address] [place] [address] Referral ID Status Reason Start Date Expiration Date Visits V isits Requested Authorized KIMBER/WC/PT/L Denied 06/11/2015 06/10/2016 14 0 SHLDR POST [id number] Encounter Details Date Type Department Care Team Description 06/14/[address] [facility] Artie, Sprain of left rotator cuff capsule, subsequent encounter (Primary Dx); Rehabilitation Services CORRINA Melissa postprocedural status(V45.89) [facility] [address] [facility] [address] [place] [address] Social History Tobacco Use Types Packs/Day Years Used Date Smoking Tobacco: Never Assessed Sex Assigned at Date Recorded Not on file documented as of this encounter Plan of Treatment Not on filedocumented as of this encounter Procedures Procedure Name Priority Date/Time Associated Diagnosis Comme [facility] ZZC THERAPEUTIC Routine 06/15/2015 6:45 AM Sprain of left rota tor EXERCISES CDT cuff capsule, subsequent encounter Other postprocedural status(V45.89) [facility] HOT OR COLD PACKS Routine 06/15/2015 6:45 AM Sprain of lef t rotator THERAPY CDT cuff capsule, subsequent encounter Other postprocedural status(V45.89) documented in this encounter Visit Diagnoses Diagnosis Sprain of left rotator cuff capsule, sub sequent encounter - Primary Other postprocedural status(V45.89) Other postprocedural status documented in this encounter Care Teams Professor Of Anthropology Relationship Specialty Start Date End Date Idalmis Sloan PCP - General Family Practice 11/04/13 documented as of this encounter
--- OUTSIDE RECORDS SUMMARY | 2022-01-28 14:20 | XMS_ITS | Encounter Summary ---
:1950 Author Organization [place] Address [facility] [place] [address] Care Team Providers Name Role Phone Idalmis Sloan Primary Care Provider Reason for Visit KIMBER Physical Therapy (Routine) - Denied Specialty Diagnoses / Procedures Referred By Contact Refer red To Contact Physical Therapy Diagnoses >4 s/p L rot tiff / mehdi lorenzana @ ortho / BCBS 30 visits per year Mehdi Gaffney MD Judd, Laurie, PT Procedures [facility] AND [id number] [place] [address] [facility] [address] [place], [place] [id number] [place] [address] Referral ID Status Reason Start Date Expiration Date Visits V isits Requested Authorized KIMBER/WC/PT/L Denied 06/11/2015 06/10/2016 14 0 SHLDR POST [id number] Encounter Details Date Type Department Care Team Description 06/11[facility]2015 [facility] Sprain of left rotator cuff capsule (Apoorva womack Dx); Rehabilitation [address] MARYANA Other postp rocedural status(V45.89) Services [place] [address] [facility] [address] [place] [address] [address] [address] [place] [address] (Work) [phone] Social History Tobacco Use Types Packs/Day Years [...] status documented in this encounter Care Teams Doctor Of Nurse Anesthesia Practice Relationship Specialty Start Date End Date Idalmis Sloan PCP - General Family Practice 11/04/13 documented as of this encounter
--- OUTSIDE RECORDS SUMMARY | 2022-01-28 14:20 | XMS_ITS | Encounter Summary ---
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
--- OUTSIDE RECORDS SUMMARY | 2022-01-28 14:20 | XMS_ITS | Encounter Summary ---
:1950 Author Organization [place] Address [facility]0 [facility] [place] [address] Care Team Providers Name Role Phone Idalmis Sloan Primary Care Provider Reason for Visit KIMBER Physical Therapy (Routine) - Denied Specialty Diagnoses / Procedures Referred By Contact Refer red To Contact Physical Therapy Diagnoses >4 s/p L rot tiff / mehdi lorenzana @ ortho / BCBS 30 visits per year Mehdi Gaffney MD Judd, Laurie, PT Procedures [facility] AND [id number] [place] [address] [facility] [address] [place] [id number] [place] [address] Referral ID Status Reason Start Date Expiration Date Visits V isits Requested Authorized KIMBER/WC/PT/L Denied 06/11/2015 06/10/2016 14 0 SHLDR POST [id number] Encounter Details Date Type Department Care Team Description 08/01/2015 Therapy Visit M [facility] [place] Wheeler, PT Sprain of left rotator cuff capsule, sub sequent encounter (Primary Dx); Rehabilitation [address] MARYANA Other postp rocedural status(V45.89) Services [place] [address] [facility] [address] [place] [address] [address] [address] [place] [address] (Work) [phone] Social History Tobacco Use Types Packs/Day Years Used Date Smoking Tobacco: Never Assessed Sex Assigned at Date Recorded Not on file documented as of this encounter Plan of Treatment Not on filedocumented as of this encounter Procedures Procedure Name Priority Date/Time Associated Diagnosis Comme nts [facility] NEUROMUSCULAR Routine 08/02/2015 7:18 AM Sprain of left ro tator RE-EDUCATION CDT cuff capsule, subsequent encounter Other postprocedural status(V45.89) [facility] THERAPEUTIC Routine 08/02/2015 7:18 AM Sprain of left rota tor EXERCISES CDT cuff capsule, subsequent encounter Other postprocedural status(V45.89) documented in this encounter Visit Diagnoses Diagnosis Sprain of left rotator cuff capsule, sub sequent encounter - Primary Other postprocedural status(V45.89) Other postprocedural status documented in this encounter Care Teams Hand Splitter Relationship Specialty Start Date End Date Idalmis Sloan PCP - General Family Practice 11/04/13 documented as of this encounter
--- OUTSIDE RECORDS SUMMARY | 2022-01-28 14:20 | XMS_ITS | Encounter Summary ---
:1950 Author Organization [place] Address [address] [place], [place] [address] Care Team Providers Name Role Phone Unavailable [...] Waleska Alcaraz - 08/02/2012 4:30 PM CDT [place] [facility] Triage Call Report Patient Name: Krys Mosher Call Date & Time: 07/31/2012 2:40:00PM Patient PCP Name: Idalmis Sloan Patient Address: [facility] [place] [address] Patient Date of : 1950 Age: 62 yr. Patient Gender: Female School Fundraising Director Name: Viji Aguilar Presenting Problem: Call FNA [...] Dr Severino Catalan to Pt 's phone [phone]. Allergies Cipro, augmentin , sulfa and Lorazepam. [facility] phone [phone]. Triage Note: Guideline Title: Infection On Antibiotic [...]
--- OUTSIDE RECORDS SUMMARY | 2022-01-28 14:20 | XMS_ITS | Encounter Summary ---
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
--- OUTSIDE RECORDS SUMMARY | 2022-01-28 14:20 | XMS_ITS | Encounter Summary ---
:1950 Author Organization [place] Address [facility] [place] [address] Care Team Providers Name Role Phone Unavailable Primary Care Provider Unavailable Encounter Details Date Type Department Care Team Description 08/22/2010 Historic Notes INTERFACED REPORT Israel Schwab RN [facility] [address] [place], [place] [address] (Wo rk) Social History [...] was around 8/10. She feels that the CHANGE CONTROL MANAGER with the vistaril and tylenol are a [...] one 50 mg dose this AM) Dilaudid CHANGE CONTROL MANAGER 0.1-0.2 Q 6 min with CR of [...] with current interventions. Plan: 1. Will keep CHANGE CONTROL MANAGER as it is, since she is doing [...] and coordination of care. Signatures ISRAEL SCHWAB (AUTOMOTIVE LOT ATTENDANT)[Signed 09:46] Authored: Interval History/Chief Complaint, Review of Systems, Physical Exam, Vital Signs/Labs/Imaging/Culture Review, Pain Score and Medications, Assessment and Plan documented in this encounter Plan of Treatment Not on filedocumented as of this encounter Visit Diagnoses Not on filedocumented in this encounter
--- OUTSIDE RECORDS SUMMARY | 2022-01-28 14:20 | XMS_ITS | Encounter Summary ---
:1950 Author Organization [place] Address [facility] [place] [address] Care Team Providers Name Role Phone Idalmis Sloan Primary Care Provider Encounter Details Date Type Department Care Team Description 08/24/2014 Therapy Visit [facility] Belén Alva, [facility] low back pain Rehabilitation Services PRINCIPAL ENGINEER with right-sided [facility] Center [address] [facility] [address] [place] [address] Social History Tobacco Use Types Packs/Day Years Used Date Smoking Tobacco: Never Assessed Sex Assigned at Date Recorded Not on file documented as of this encounter Progress Notes Belén Al[place], PRINCIPAL ENGINEER - 09/20/2014 12:54 PM CDT Subjective: HPI [...] Primary documented in this encounter Care Teams Home Restoration Service Supervisor Relationship Specialty Start Date End Date Idalmis Sloan PCP - General Family Practice 11/04/13 documented as of this encounter
--- OUTSIDE RECORDS SUMMARY | 2022-01-28 14:20 | XMS_ITS | Encounter Summary ---
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 [address] [place] [address] Social History Tobacco Use Types [...] Primary documented in this encounter Care Teams Concrete Float Maker Relationship Specialty Start Date End Date Idalmis Sloan PCP - General Family Practice 11/04/13 documented as of this encounter
--- OUTSIDE RECORDS SUMMARY | 2022-01-28 14:20 | XMS_ITS | Encounter Summary ---
:1950 Author Organization [place] Address [address] [place] [address]. [place] [address] Care Team Providers Name Role Phone Idalmis Sloan Primary Care Provider Reason for Visit KIMBER Physical Therapy (Routine) - Denied Specialty Diagnoses / Procedures Referred By Contact Refer red To Contact Physical Therapy Diagnoses >4 s/p L rot tiff / mehdi lorenzana @ ortho / BCBS 30 visits per year Mehdi Gaffney MD Judd, Laurie, PT Procedures [facility] AND [id number] [place] [address] [facility] [address] [place] [id number] Referral ID Status Reason Start Date Expiration Date Visits V isits Requested Authorized KIMBER/WC/PT/L Denied 06/11/2015 06/10/2016 14 0 SHLDR POST [id number] Encounter Details Date Type Department Care Team Description 07/10/2015 Therapy Visit [facility] Artie, Sprain of left rotator cuff capsule, subsequent encounter (Primary Dx); Rehabilitation Services CORRINA Melissa postprocedural status(V45.89) [facility] [address] [facility] [address] [place] [address] Social History Tobacco Use Types [...] status(V45.89) [facility] THERAPEUTIC Routine 07/11/2015 7:11 AM Sprain of left rota tor EXERCISES CDT cuff capsule, subsequent encounter Other postprocedural status(V45.89) documented in this encounter Visit Diagnoses Diagnosis Sprain of left rotator cuff capsule, sub sequent encounter - Primary Other postprocedural status(V45.89) Other postprocedural status documented in this encounter Care Teams Laboratory Apparatus Glass Grinder Relationship Specialty Start Date End Date Idalmis Sloan PCP - General Family Practice 11/04/13 documented as of this encounter
--- OUTSIDE RECORDS SUMMARY | 2022-01-28 14:20 | XMS_ITS | Encounter Summary ---
:1950 Author Organization [place] Address [address] [place], [place] [address] Care Team Providers Name Role Phone Unavailable [...] Waleska Alcaraz - 01/16/2012 7:49 PM CST [facility] Triage Call Report Patient Name: Krys Mosher Call Date & Time: 07/18/2011 8:05:57PM Patient PCP Name: Idalmis Sloan MRN: Patient Address: [address] [place] [address] Patient Date of : 1950 Age: 61 yr. Patient Gender: Female Doll Maker Name: Viji Hyatt Presenting Problem: I have an infected little toe. Red, painful, swollen. Went to a foot doctor amonth ago who shaved off a callus and a few days ago little right toe started getting red; now looks infected she states. Refuses ER due to high deductible and insurance problems; and wants to see if MD electronic game developer would call in an ABX. Is allergic to : cipro possibly; sulfa and augmentin. Can take Keflex and levoquin she states. I called Dr. Chacon and he allowed me to call in an Rx Keflex po 500mg TID x7days. I called this into [facility] in [place]. This note will be faxed to [place] office; please ATTN: Dr. Sloan. Triage Note: [...] Procedure Note: .Other right foot surgery 2006 ANY DRIVER documented in this encounter Plan of Treatment Not on filedocumented as of this encounter Visit Diagnoses Not on filedocumented in this encounter
--- OUTSIDE RECORDS SUMMARY | 2022-01-28 14:20 | XMS_ITS | Encounter Summary ---
:1950 Author Organization [place] Address [address] [facility] [place] [address] Care Team Providers Name Role Phone Unavailable Primary Care Provider Unavailable Encounter Details Date Type Department Care Team Description 08/25/2010 Discharge Summary [facility] Krysta, (Top Inventory Control Executive) [facility] VIELKA Isabel Results [facility] [address] [phone] Social History Tobacco Use Types Packs/Day Years [...] PA-C MT: [id number] Name: KRYS MOSHER Account: [id number] : 1950 Admit Date: Discharge Date: 08/25/2010 Document: [id number] documented in this encounter Plan of Treatment Not on filedocumented as of this encounter Visit Diagnoses Not on filedocumented in this encounter
--- OUTSIDE RECORDS SUMMARY | 2022-01-28 14:20 | XMS_ITS | Encounter Summary ---
:1950 Author Organization [place] Address [address] [facility] [place] [address] Care Team Providers Name Role Phone Idalmis Sloan Primary Care Provider Encounter Details Date Type Department Care Team Description 11/09/2014 Therapy Visit [facility] Fidelia Chang pain Rehabilitation Services SHANAE Sweet (Primary Dx) [place] [facility] [address] [place] [address] [facility] [address] [place] [id number] Social History Tobacco Use Types Packs/Day Years [...] from spouse. BETTER with rest, methocarbanol. 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 Objective: System Shoulder Evaluation: ROM: AROM: Flexion: [...] Sheet for this information) Short term and snf goals: (See Goal Flow Sheet for this [...] 10:13 AM Left shoulder pain EXERCISES CDT [facility] HOT OR COLD PACKS Routine 11/13/2014 10:13 AM Left shoulde r pain THERAPY CDT documented in this encounter Visit Diagnoses Diagnosis Left shoulder pain - Primary Pain in joint, shoulder region documented in this encounter Care Teams Sterilisation Technician Relationship Specialty Start Date End Date Idalmis Sloan PCP - General Family Practice 11/04/13 documented as of this encounter
--- OUTSIDE RECORDS SUMMARY | 2022-01-28 14:20 | XMS_ITS | Encounter Summary ---
:1950 Author Organization [place] Address [address] [place] [address] Care Team Providers Name Role Phone Shanta Sloan Primary Care Provider Encounter Details Date Type Department Care Team Description 11/22/2014 Therapy Visit [facility] Belén Alva, Fidelia dontrell pain Rehabilitation Services SAP ARCHITECT (Apoorva shanta Dx) [place] [address] [facility] [address] [place] [address] Social History Tobacco Use Types [...] and time spent performing 1:1 timed codes. DER LOADER documented in this encounter Miscellaneous Notes Addendum Note - Micki Chang, PT - 01/30/2015 3:46 PM SKIDDER LOADER Addended by: MICKI CHANG on: 01/30/2015 03:46 PM Modules accepted: Orders DER LOADER documented in this encounter Plan of Treatment [...] region documented in this encounter Care Teams Insurance Special Agent Relationship Specialty Start Date End Date Shanta Sloan PCP - General Family Practice 11/04/13 documented as of this encounter
--- OUTSIDE RECORDS SUMMARY | 2022-01-28 14:20 | XMS_ITS | Encounter Summary ---
:1950 Author Organization [place] Address [address] [place] [address] Care Team Providers Name Role Phone Idalmis Sloan Primary Care Provider Encounter Details Date Type Department Care Team Description 11/04/2013 Hospital Encounter [facility] Jermaine Paz Ulceration (H[facility] MD Chuck [address] [place], [place] [facility] [address] [phone] [place] [address] (Wo rk) Social History Tobacco [...] site documented in this encounter Care Teams Artificial Leather Calender Operator Relationship Specialty Start Date End Date Idalmis Sloan PCP - General Family Practice 11/04/13 documented as of this encounter
--- OUTSIDE RECORDS SUMMARY | 2022-01-28 14:20 | XMS_ITS | Encounter Summary ---
:1950 Author Organization [place] Address [facility] [place] [address] Care Team Providers Name Role Phone Unavailable Primary Care Provider Unavailable Encounter Details Date Type Department Care Team Description 08/21/2010 Consultation [facility] Idalmis Schwab, Hospital Results RN [facility] [address] [place], [place] [address] (Wo rk) Social History [...] same nurse practitioner, Sherry Arambula of the [facility]. It does not appear [...] a pain clinic and that would be [facility] that is located in [place]. 3. Esophageal reflux. 4. Tobacco use. 5. [...] 100 mg b.i.d. She is on a INFORMATION SYSTEMS CONSULTANT Dilaudid. She can have 0.1-0.2 q.6minutes with a continuous rate of 0.1-0.2 for an hour limit of 1.5. She has not taken any other medswhile here. REVIEW OF SYSTEMS: Please see the [facility] adult patient profile done by Amanda [...] but does have pain meds ordered per INFORMATION SYSTEMS CONSULTANT. Patient having somatosensory-type of inflammatory pain postop. PLAN: 1. We will leave INFORMATION SYSTEMS CONSULTANT as it was written for. Patient is [...] CARROLL Name: KRYS MOSHER MRN: [id number] Account: [id number] : 1950 Consult Date: 08/21/2010 Document: [id number] cc: SAIMA MCHUGH PA-C documented in this encounter Plan of Treatment Not on filedocumented as of this encounter Visit Diagnoses Not on filedocumented in this encounter
--- OUTSIDE RECORDS SUMMARY | 2022-01-28 14:20 | XMS_ITS | Encounter Summary ---
:1950 Author Organization [place] Address [facility] [place] [address] Care Team Providers Name Role Phone Unavailable Primary Care Provider Unavailable Encounter Details Date Type Department Care Team Description 08/23/2010 Historic Notes INTERFACED REPORT Israel Schwab RN [facility] [address] [place], [place] [address] (Wo rk) Social History [...] been Management: getting the 50mg dose) Dilaudid PROCEDURE MANAGER 0.1-0.2 Q 6 min CR 0.1-0.2 mg [...] and coordination of care Signatures ISRAEL SCHWAB (CURRICULUM CONSULTANT)[Signed 14:10] Authored: Interval History/Chief Complaint, Review of Systems, Physical Exam, Vital Signs/Labs/Imaging/Culture Review, Pain Score and Medications, Assessment and Plan documented in this encounter Plan of Treatment Not on filedocumented as of this encounter Visit Diagnoses Not on filedocumented in this encounter
--- OUTSIDE RECORDS SUMMARY | 2022-01-28 14:20 | XMS_ITS | Encounter Summary ---
:1950 Author Organization [place] Address [address] [place] [address]. [place] [address] Care Team Providers Name Role Phone Idalmis Sloan Primary Care Provider Reason for Visit KIMBER Physical Therapy (Routine) - Denied Specialty Diagnoses / Procedures Referred By Contact Refer red To Contact Physical Therapy Diagnoses >4 s/p L rot tiff / mehdi lorenzana @ ortho / BCBS 30 visits per year Mehdi Gaffney MD Judd, Laurie, PT Procedures [facility] AND [id number] [place] [address] [facility] [address] [place] [address] Referral ID Status Reason Start Date Expiration Date Visits V isits Requested Authorized KIMBER/WC/PT/L Denied 06/11/2015 06/10/2016 14 0 SHLDR POST [id number] Encounter Details Date Type Department Care Team Description 06/21/2015 [facility], Sprain of left rotator cuff capsule, subsequent encounter (Primary Dx); Rehabilitation Services CORRINA Melissa Otnatacha r postprocedural status(V45.89) [facility] [address] [place] [address] Social History Tobacco Use [...] Diagnosis Comme nts [facility] THERAPEUTIC Routine 06/22/2015 10:17 AM Sprain of left rot ator EXERCISES CDT cuff capsule, subsequent encounter Other postprocedural status(V45.89) [facility] HOT OR COLD PACKS Routine 06/22/2015 10:17 AM Sprain of le ft rotator THERAPY CDT cuff capsule, subsequent encounter Other postprocedural status(V45.89) documented in this encounter Visit Diagnoses Diagnosis Sprain of left rotator cuff capsule, sub sequent encounter - Primary Other postprocedural status(V45.89) Other postprocedural status documented in this encounter Care Teams Community Marketing Manager Relationship Specialty Start Date End Date Idalmis Sloan PCP - General Family Practice 11/04/13 documented as of this encounter
--- OUTSIDE RECORDS SUMMARY | 2022-01-28 14:20 | XMS_ITS | Encounter Summary ---
:1950 Author Organization [place] Address [address] [facility] [place] [address] Care Team Providers Name Role Phone Idalmis Sloan Primary Care Provider Encounter Details Date Type Department Care Team Description 06/03/2015 Telephone [facility] Nurse Sabiha Shelton , RN [facility] [address] [place] [address] Social History Tobacco Use Types Packs/Day [...] bone; or pure bloody urine ? NO [place] something pass with urination ? NO Unbearable [...] on filedocumented in this encounter Care Teams Cable Ferryboat Operator Relationship Specialty Start Date End Date Idalmis Sloan PCP - General Family Practice 11/04/13 documented as of this encounter
--- OUTSIDE RECORDS SUMMARY | 2022-01-28 14:20 | XMS_ITS | Encounter Summary ---
:1950 Author Organization [place] Address [facility] [place] [address] Care Team Providers Name Role Phone Unavailable Primary Care Provider Unavailable Encounter Details Date Type Department Care Team Description 08/22/2010 Historic Notes INTERFACED REPORT Interface, Transcript onMD Social History Tobacco Use Types Packs/Day Years Used Date Smoking Tobacco: Never Assessed Sex Assigned at Date Recorded Not on file documented as of this encounter Progress Notes Interface, Foot Piece Assembler - 12/02/2010 7:39 PM CDT Patient Status - Physical status Stable (s/s of potential complications absent or manageable) - Psychosocial status Stable Discharge Planning - Discharge From: [facility] - Patient Care Unit: ms 2 [...] Materials, and Instructions, Follow Up Care Interface, Foot Piece Assembler - 12/02/2010 7:39 PM CDT General Information [...] Mobility: Rolling/Turning - Level of stand-by assist [place]: Bed Mobility: Scooting/Bridging - Level of stand-by assist [place]: Bed Mobility: Sit to Supine - Level of stand-by assist [place]: Bed Mobility: Supine to Sit - Level of stand-by assist [place]: Bed Mobility Analysis - Impairments pain Contributing to Impaired Bed Mobility: Transfer: Sit to Stand - Level of CGA [place]: - Physical verbal cues; supervision Assist/Nonphysical Assist: Transfer: Stand to Sit - Level of stand-by assist [place]: Gait Skills - Level of minimum assist (75% patients effort) [place]: - Physical verbal cues Assist/Nonphysical Assist: - Assistive Device: SALES SERVICE PROMOTER and IV pole - Gait Distance: 20' to door and back Gait Analysis - Gait Pattern Used: swing-to gait - Gait Deviations decreased jeffery; decreased step length Noted: - Impairments pain Contributing to Gait Deviations: Balance Skills Assessment - Sitting Balance: independent Static: - Sitting Balance: independent Dynamic: - Qdv-wn-Frwlw Balance: minimum assist (75% patients effort) - [...] - Anticipated Equipment elastic laces and a button tacker at Discharge: - Risks and Benefits of [...] Assessment, Sensation, Treatment Plan, Clinical Impression Interface, Foot Piece Assembler - 12/02/2010 7:38 PM CDT SH - Responded to referral per pt. request for emotional support. Pt. is recovering from back surgery, and she says it went very well, expresses gratitude for Dr. Comer's skill and the quality of care she has received from nursing staff. 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 Pt. is originally from [place], [place] where she was a [facility], has not found a new aisha home since moving to [place], [place] but says she attends chapel at [facility] occasionally. Pt.'s family have not been able to visit due to a wedding in [place], but said her should be back in time for discharge. Offered active listening, emotional support, prayed for comfort and healing and gave thanks for successful surgery. Will follow up if needs arise. [Signature] Author: MARY ELIAS (Telegraph Equipment Maintainer Solder Deposit Operator) [Signed 10:25] documented in this encounter Plan of Treatment Not on filedocumented as of this encounter Visit Diagnoses Not on filedocumented in this encounter
--- OUTSIDE RECORDS SUMMARY | 2022-01-28 14:20 | XMS_ITS | Encounter Summary ---
:1950 Author Organization [place] Address [address] [place] [address] Care Team Providers Name Role Phone Idalmis Sloan Primary Care Provider Encounter Details Date Type Department Care Team Description 07/20/2014 Therapy Visit [facility] Cherelle Santana Midli ne low back Rehabilitation Services PT pain with [place] [facility] ATHLETIC right- sided sciatica Care Center MEDICINE (Primary Dx) [address] [place] [address] [place], [place] [phone] [address] Social History Tobacco Use Types [...] pain throughout movement Rotation: Left: Right: Side Perry: Left: Right: Strength: Abdominals 1/5 Lumbar Myotomes: [...] Sheet for this information) Short term and assisted goals: (See Goal Flow Sheet for this [...] [facility] THERAPEUTIC Routine 07/25/2014 12:32 PM Midline Low Back P ain ACTIVITIES CDT With Right-Sided Sciatica [facility] THERAPEUTIC Routine 07/25/2014 12:32 PM Midline low back p ain EXERCISES CDT with right-sided sciatica documented in this encounter Visit Diagnoses Diagnosis Midline low back pain with right-sided s ciatica - Primary documented in this encounter Care Teams Site Lead Relationship Specialty Start Date End Date Idalmis Sloan PCP - General Family Practice 11/04/13 documented as of this encounter
--- OUTSIDE RECORDS SUMMARY | 2022-01-28 14:20 | XMS_ITS | Encounter Summary ---
:1950 Author Organization [place] Address [address] [place] [address] Care Team Providers Name Role Phone Unavailable Primary Care Provider Unavailable Encounter Details Date Type Department Care Team Description 08/26/2010 Historic Notes INTERFACED REPORT Interface, Transcript MD colby Social History Tobacco Use Types Packs/Day Years Used Date Smoking Tobacco: Never Assessed Sex Assigned at Date Recorded Not on file documented as of this encounter Progress Notes Interface, Shot Lighter - 12/02/2010 7:32 PM CDT Discharge Summary - Reason for Discharge Discharge from facility - Progress toward Goals partially met achieving short term goals/manager intermediate goals - Barriers to achieving Early discharge from facility goals - Continued Therapy No, family to assist at home Recommended Signatures JEFF CHAVEZ (OTR/L)[Signed 16:20] Authored: Discharge Summary documented in this encounter Plan of Treatment Not on filedocumented as of this encounter Visit Diagnoses Not on filedocumented in this encounter
--- OUTSIDE RECORDS SUMMARY | 2022-01-28 14:20 | XMS_ITS | Encounter Summary ---
:1950 Author Organization [place] Address [facility] [place] [address] Care Team Providers Name Role Phone Unavailable Primary Care Provider Unavailable Encounter Details Date Type Department Care Team Description 08/25/2010 Historic Notes INTERFACED REPORT Interface, Transcript onMD Social History Tobacco Use Types Packs/Day Years Used Date Smoking Tobacco: Never Assessed Sex Assigned at Date Recorded Not on file documented as of this encounter Progress Notes Interface, Mountain Guide - 12/02/2010 7:33 PM CDT Discharge Summary - Reason for Discharge Discharge from facility - Progress toward Goals partially met achieving short term goals/parts counterman goals - Barriers to achieving Limited tolerance [...]
--- OUTSIDE RECORDS SUMMARY | 2022-01-28 14:20 | XMS_ITS | Encounter Summary ---
:1950 Author Organization [place] Address [address] [place] [address] Care Team Providers Name Role Phone NathaliaIdalmisVijaya Primary Care Provider Encounter Details Date Type Department Care Team Description 11/13/2013 Telephone [facility] Nurse Idalmis Sloan Advisors [facility] [address] [facility] [address] [place] [address] [place] [address] [phone] (Wo rk) Social History Tobacco Use Types [...] better.I know an abx would help.Who is bronze plater? Advised to be seen.Page sent to MD per pt.Md advised to be seen in am. Pt stated she will go to the [facility]. # [phone] Triage Note: Guideline Title: Cough - Adult [...] air. Be sure to clean according to lockstitch front edge tape sewer's instructions. Limit activities and increase periods of [...] on filedocumented in this encounter Care Teams Architectural Modeler Relationship Specialty Start Date End Date Idalmis Sloan PCP - General Family Practice 11/04/13 documented as of this encounter
--- OUTSIDE RECORDS SUMMARY | 2022-01-28 14:21 | XMS_ITS | Encounter Summary ---
:1950 Author Organization [facility] Address [address] [place] [address]. [place] [address] Care Team Providers Name Role Phone Unavailable Primary Care Provider Unavailable Encounter Details Date Type Department Care Team Description 08/21/2010 Hospital Laboratory [facility] [place], [facility] Results MD Dipti [facility] [address] [facility] [address] [place] [address] (Wo rk) Social History Tobacco [...] At Patho logist Time Signature ABO A [facility] RH(D) Pos [facility] Antibody Neg [facility] LAB Specimen 08/24/2010 [facility] LAB Specimen Anatomical Collection Method Collection Time Receive d Time (Source) Location / / Volume Laterality 08/21/2010 6:15 AM 1 6:17 CDT AM CDT Jose Comer MD LAB - BLOOD BANK TEST ORDER Performing Organization Address City/State/ZIP Code Phon e Number M [facility] [address] [place], [place] [address] [facility] documented in this encounter Visit Diagnoses Not on filedocumented in this encounter
--- OUTSIDE RECORDS SUMMARY | 2022-01-28 14:21 | XMS_ITS | Encounter Summary ---
:1950 Author Organization [place] Address [address] [facility] [place] [address] Care Team Providers Name Role Phone Unavailable Primary Care Provider Unavailable Encounter Details Date Type Department Care Team Description 08/21/2010 Results Only [facility] Jose Comer, Hospital Results [facility] [address] [place] [address] (Wo rk) Social History Tobacco [...]
--- OUTSIDE RECORDS SUMMARY | 2022-01-28 14:21 | XMS_ITS ---
:1950 Author Care Team Providers Name Role Phone Ed Travis Primary Care Provider Unavailable Allergies Code Code System Name Reaction Severity Status Onset 925899 RxNorm Augmentin ? ? Active ? 7052 [...] ? Specific 1.025 1.005-1.030 Final [facility]: Complete [place] [address], [place] ? ? URINE ? Ph 5.5 5.0-7.5 Final [facility]: [address], [place] ? ? URINE ? Urine-colo yellow yellow Final [facility]: r [address], [place] ? ? URINE ? Appearance clear clear Final [facility]: [address], [place] ? ? URINE ? WBC negative negative Final [facility] p: Esterase [address], [place] ? ? URINE ABNOR Protein 1+ negative/tra Final [facility]: MAL ce [address], [place] ? ? URINE ? Glucose negative negative Final [facility] or[facility]: [address], [place] ? ? URINE ABNOR Ketones trace negative Final [facility] p: MAL [address], [place] ? ? URINE ? Occult negative negative Final [facility]: Blood [address], [place] ? ? URINE ? Bilirubin negative negative Final [facility]: [address], [place] ? ? URINE ? Urobilinog 0.2 0.2-1.0 Final [facility]: en,semi-qn mg/dL mg/dL [address], [place] ? ? URINE ? Nitrite, negative negative Final Lab le[facility]: Urine [address], [place] ? ? URINE ? Microscopi see ? Final [facility]: c below: [address], [place] ? ? URINE ? Wbc 0-5 /hpf 0 - 5 /hpf Final [facility]: [address], [place] ? ? URINE ? Rbc 0-2 /hpf 0 - 2 /hpf Final [facility]: [address], [place] ? ? URINE ? Epithelial 0-10 0 - 10 /hpf Final [facility]: Cells (Non /hpf [address], [place] ? ? URINE ? Epithelial setup technician ? Cancelle Lab le[facility]: Cells d [address], [place] ? ? URINE ? Casts setup technician ? Cancelle [facility]: d [address], [place] ? ? URINE ? Cast Type setup technician ? Cancelle [facility]: d [address], [place] ? ? URINE ABNOR Crystals present n/a Final [facility] p: MAL [address], [place] ? ? URINE ? Crystal amorphou n/a Final [facility]: Type s [address], [place] ? ? URINE ? Mucus present not estab. Final [facility]: Threads [address], [place] ? ? URINE ? Bacteria few none Final [facility] : seen/few [address], [place] ? ? URINE ? Yeast setup technician ? Cancelle [facility]: d [address], [place] ? ? URINE ? Trichomona setup technician ? Cancelle Lab [facility]: s d [address], [place] ? ? URINE ? Comment setup technician ? Cancelle [facility]: d [address], [place] ? ? URINE ? Microscopi setup technician ? Cancelle Lab le[facility]: c d [address], [place] 07/16/2020 Culture, URINE ABNOR Urine final ? Final [facility] Urine MAL Culture, report ([facility] Routine ): [address] [facility] [place] ? ? URINE ABNOR Result 1 comment ? Final [facility] [address] [facility] [place] ? ? URINE ABNOR Result 2 serratia ? Final [facility] MAL beverly ([facility] ns ): [address] [facility] ? ? URINE ? Antimicrob comment ? Final [facility] orp ial ([facility] n Susceptibil ): [address] [facility] [place] Past Encounters None recorded. Social History Tobacco Smoking Status Former Smoker Vaccine List None recorded. Plan of Care Reminders Provider Appointments None recorded. ? ? Lab None recorded. ? ? Referral None recorded. ? ? Procedures None recorded. ? ? Surgeries None recorded. ? ? Imaging None recorded. ? ? Vitals Weight BMI Blood Pressure 160/91 mm[Hg]
--- OUTSIDE RECORDS SUMMARY | 2022-01-28 14:21 | XMS_ITS | Encounter Summary ---
:1950 Author Organization [place] Address [facility] [place] [address] Care Team Providers Name Role Phone Unavailable Primary Care Provider Unavailable Encounter Details Date Type Department Care Team Description 08/16/2010 Historic Notes INTERFACED REPORT Interface, Transcript onMD Social History Tobacco Use Types Packs/Day Years Used Date Smoking Tobacco: Never Assessed Sex Assigned at Date Recorded Not on file documented as of this encounter Progress Notes Interface, Pastry Cook Apprentice - 12/02/2010 7:47 PM CDT General Information - How to be Addressed Yola - Source of Information patient - Patient Belongings clothing; glasses; walker and cane - director of personnel #1: Sachin - Relationship to patient #1: - Phone 1: [phone] - director of personnel #2: Sabiha Burgess - Relationship to sister patient #2: - Phone 1: [phone] - Patient's spoken language; German or Bilingual communication style Advance Directive - [...] Values/Beliefs/Spiritual Care - C: Community: In hospital insurance investigator support of your spiritual health, is there someone we may contact for you? (identify all that apply) Learning Assessment - Factors Influencing no factors identified Readiness to Learn - Factors that Impact none Ability to Learn - Learning Preferences skill demonstration; written material - Cultural none Considerations - Developmental none Considerations - Buddhist none Considerations Mutuality/Individual Preferences - What information none would help us give you more personalized care? Signatures KAYLEIGH MAX (RN)[Signed 15:03] Authored: General Information, Skin Inspection, Coping Stress/Abuse Rosario Prado (Picker And Sorter Load And Unload)[Signed 17:38] Authored: Advance Directive JOSE BROWN (RN)[Signed [...]
== END 2021-11-06 10:31 | disposition home or self-care (01) ==
LOC: WOUND 01-28 14:14
PROVIDERS: PCP Family Medicine; Visit Provider Surgery
DX: I73.9 Peripheral vascular disease, unspecified (principal); L97.422 Non-pressure chronic ulcer of left heel and midfoot with fat layer exposed; M14.679 Charcot's joint, unspecified ankle and foot
CPT/HCPCS: 99213

== ENCOUNTER 2021-11-12 14:42 | Outpatient (CLI) | payer MEDICARE, SELFPAY ==
--- OUTSIDE RECORDS SUMMARY | 2021-11-12 14:44 | XMS_ITS | Encounter Summary ---
:1950 Author Organization [facility] Address [address] [place] [address] Care Team Providers Name Role Phone Unavailable Primary Care Provider Unavailable Reason for Visit Reason Comments Ulcer, Foot 5th toes b/l ft sores x 1 we ek Encounter Details Date Type Department Care Team Description 12/22/2018 Initial Consult [facility] Jermain Stinson , Charcot's joint of right foot (Primary Dx); MedSurg DPM Blister of fifth toe of right foot, init ial encounter; [address] [place] [address] [place], [place] [phone] Social History Tobacco Use Types Packs/Day Years Used Date Smoking Tobacco: Former Cigarettes 1 Smokeless Tobacco: Never Alcohol Use Standard Drinks/Week Comments Yes 0 (1 standard drink = 0.6 oz pure alcoho l) ocaasionally Alcohol Habits Answer Date Recorded How often do you have a drink containing alcohol? Not asked How many drinks containing alcohol do you have on a Not aske d typical day when you are drinking? How often do you have six or more drinks on one occasion? No t asked Comment: ocaasionally 11/13/2017 Sex Assigned at Date Recorded Not on file documented as of this encounter Progress Notes Harini Lemons LPN - 12/22/2018 2:45 PM CDT Addended by: HARINI LEMONS on: 12/22/2018 04:42 PM Modules accepted: Orders Jermain Stinson DPM - 12/22/2018 2:45 PM CDT DATE OF VISIT: 12/22/2018 SUBJECTIVE: Krys Mosher is a pleasant 68 y.o. female who presents to clinic today for evaluation of sore on the outside of the 5th toe of both feet. Patient states these have been there for approximately 1 week. She denies any injury or trauma. She normally sees and he did get new accommodative insertsfor her approximately 1 month ago. She does describe Charcot on the right extremity. She does have ahistory of failed foot surgery on her right foot which was done in 2005 and was constant. This did require a skin graft. She does get occasional cellulitis in the right extremity. Chart review indicates that she was admitted at [facility] on November 04, 2018 and discharged on November 06, 2018. Her admitting diagnosis was cellulitis of the right foot she was given IV cefazolin and discharged on cephalexin. She was instructed to take probiotics that she does have a history of C difficile. While in the hospital, she did have noninvasive studies which were normal at 1.05 on the right extremity and 1.14 on the left extremity. The report indicates normal resting ankle brachial indices and normal tri-phasic pedal waveforms bilaterally. Adverse Drug Reactions: Allergies Allergen Reactions ??? Morphine Respiratory Arrest ??? Amoxicillin-Pot Clavulanate Diarrhea ??? Lorazepam Anxiety ??? Sulfa Antibiotics Hives Outpatient Medications Prior to Visit Medication Sig ??? ALBUterol sulfate HFA 108 (90 BASE) MCG/ACT inhaler Inhale 2 puffs every 4 hours as needed. ??? Calcium Citrate-Vitamin D (CALCIUM CITRATE + D OR) Take by mouth. ??? cephalexin (KEFLEX) 500 MG capsule Take 500 mg by mouth every 8 hours. ??? esomeprazole (NEXIUM) 20 MG capsule Take 20 mg by mouth daily. ??? fluticasone (AKA FLONASE) 50 MCG/ACT nasal solution Place 2 sprays into each nostril daily (every 24 hours). Dose is for each nostril. ??? furosemide (AKA LASIX) 40 MG tablet Take 40 mg by mouth daily (every 24 hours). ??? HYDROcodone-acetaminophen (AKA VICODIN,LORTAB) 5-500 MG tablet Take 1 tablet by mouth every 6 hours as needed. ??? methadone (AKA DOLOPHINE) 5 MG tablet Take 5 mg by mouth two times a day. Indications: EDWIN PERDOMO Oct 25, 2012 11:38 AM taking twice daily ??? Multiple Vitamins-Minerals (MULTIVITAMIN ADULT OR) Take 1 tablet by mouth daily (every 24 hours). ??? omeprazole (PRILOSEC) 20 MG capsule Take 20 mg by mouth daily (every 24 hours). ??? potassium chloride 10 MEQ controlled release capsule Take 10 mEq by mouth 2 times daily. ??? raNITIdine (ZANTAC) 150 MG tablet Take 150 mg by mouth two times a day. ??? senna (SENNA) 8.6 MG tablet Take 1 Tablet by mouth as needed. ??? simvastatin (AKA ZOCOR) 80 MG tablet Take 80 mg by mouth daily at bedtime. Indications: alternate between 1/2-1 tab daily ??? traZODone (AKA DESYREL) 50 MG tablet Take 50 mg by mouth nightly. No facility-administered medications prior to visit. Review of Systems: Negative for fever, rash or shortness of breath. Past Medical History: No past medical history on file. Patient Active Problem List Diagnosis Date Noted ??? Subclinical hyperthyroidism (HRC) 11/13/2017 ??? Elevated parathyroid hormone (HRC) 11/13/2017 ??? Hypocalcemia 11/13/2017 No past surgical history on file. Remarkable for right foot reconstruction and graft Social History: Patient is retired [employer] in is here today with her OBJECTIVE: 68 y.o. year old female who appears their stated age. Alert and oriented and in no acute distress. Walks without a limp and appears to be in general good health. DP and PT pulses are palpable. No hair growth is present on the digits and capillary filling time is less than two seconds. Sensation is diminished to sharp and dull discrimination but appears to be intact to vibratory sensation There is no weakness with muscle testing of the foot, ankle or lower leg. No pain or restriction with subtalar joint or ankle joint range of motion on the left extremity. On the right extremity, she doeshave significant loss of subtalar joint and ankle joint range of motion. There are no paresthesias over the tarsal tunnel or with compression of the dorsal nerves. She does have evidence of previous surgery with a very large skin graft noted over the dorsal medialright foot. This starts in the midfoot area and extends to the anterior ankle. There is no evidence of infection. There is no erythema. She does have rigid contractions noted to her toes. She does havea hyperkeratotic lesion on the dorsal lateral PIPJ of the 5th toes on both feet. On her right foot, she does have a superficial blister formation. This does appear to be dried and there is no open ulceration. I did evaluate her inserts in these are a custom orthotic from [employer]. These are an accommodative insert. ASSESSMENT: ICD-10-CM 1. Charcot's joint of right foot M14.671 2. Blister of fifth toe of right foot, initial encounter S90.424A 3. Hammer toes of both feet M20.41 M20.42 PLAN: Treatment options were discussed with the patient. I discussed the condition in great detail. The patient does not have the specifics of her surgery but it was some form of reconstructive procedure. In review of the notes from [facility] it does indicate Charcot reconstruction so it is unclear if she did have a Charcot joint and have surgery because of this or if this caused this.She does have some neuropathy but there is no mention of idiopathic peripheral neuropathy in her chart. I discussed with the patient that she did get new inserts 1 month ago and she developed sores 1 week ago. I did evaluate her shoes and they are a medium with shoe. With the width of her forefoot this would be surprising. I will have her have her foot measured. There is no evidence of infection or ulceration and the blister formation has dried. I did dispense a surgical shoe which I would like her to use for the next 1 week on the right extremity. I also provided her with resources for nail care and informed her that we do not do nail care. She did see in the past but he is no longer in her network. He would trim her nails. Will also have the patient use an accommodative donut pad to the 5th toe. It is very important that she does not use anything that is medicated. She will follow up with me on a p.r.n. basis. All questions answered. The patient was discharged ambulatory and in stable condition. No orders of the defined types were placed in this encounter. No orders of the defined types were placed in this encounter. (This note was created using voice recognition software and may contain some front desk auxiliary errors) documented in this encounter Nursing Notes Harini Lemons LPN - 12/22/2018 2:45 PM CDT Pt fitted and dispensed a post op shoe RLE. Harini Lemons LPN 12/22/2018, 4:42 PM documented in this encounter Plan of Treatment Not on filedocumented as of this encounter Visit Diagnoses Diagnosis Charcot's joint of right foot - Primary Blister of fifth toe of right foot, init ial encounter Hammer toes of both feet documented in this encounter
--- OUTSIDE RECORDS SUMMARY | 2021-11-12 14:44 | XMS_ITS | Encounter Summary ---
:1950 Author Organization [facility] Address [address] [place] [address] Care Team Providers Name Role Phone Unavailable Primary Care Provider Unavailable Reason for Visit Reason Comments Fax LAB RESULTS Encounter Details Date Type Department Care Team Description 12/02/2017 Telephone [facility] [address] Dust[address] Cagle MD Fax; LAB RESULTS Endocrinology [address] [place] [address] [phone] (Wo rk) Social History Tobacco Use Types Packs/Day Years [...] on file documented as of this encounter Nursing Notes Sunny Lopez RN - 12/04/2017 3:[address] Sloan office calling as they can not read labs that are elevated or low as they are yellowed andwhen faxed it shows up as black. Read her results she needed. Sunny Lopez RN - 12/03/2017 2:[address] Sloan office calling, records just faxed to # noted below Kasey Mello RN - 12/02/2017 5:17 PM CDT Pt requesting lab results and recommendations from Dr. Cagle on 11/16/[address] Idalmis Sloan at [phone]. documented in this encounter Plan of Treatment Not on filedocumented as of this encounter Visit Diagnoses Not on filedocumented in this encounter
--- OUTSIDE RECORDS SUMMARY | 2021-11-12 14:44 | XMS_ITS | Encounter Summary ---
:1950 Author Organization [email or web address] Address [address] [place] [address] Care Team Providers Name Role Phone Unavailable Primary Care Provider Unavailable Reason for Visit Reason Comments UPDATE Encounter Details Date Type Department Care Team Description 12/07/2017 Telephone [facility] [address] Dustin Cagle MD UPDATE Endocrinology [address] [place] [phone] (Wo rk) Social History Tobacco Use Types [...] documented as of this encounter Nursing Notes Deepthi Cruz RN - 12/07/2017 4:46 PM CDT Pt returned call, gave her the information below. Pt agreeable to plan. Jenifer Marin RN - 12/07/2017 9:16 AM CDT Message left for the pt to call back. See note below. Dr. Cagle sent my chart message and this was unread: Give pt message when she calls back. Krys, I sent you a long note regarding the labs, but I forgot to mention, you should also switch your calcium carbonate to calcium citrate. ??A little harder to find, but you won't absorb calcium carbonate very well since you are taking the omeprazole. documented in this encounter Plan of Treatment Not on filedocumented as of this encounter Visit Diagnoses Not on filedocumented in this encounter
--- OUTSIDE RECORDS SUMMARY | 2021-11-12 14:44 | XMS_ITS | Clinical Summary ---
:1950 Author Organization [facility] Address [address] [place] [address] Care Team Providers Name Role Phone Unavailable Primary Care Provider Unavailable Source Comments You are receiving this document as you are listed as the primary care provider,follow-up provider, or the patient has been referred to you for consultation.This is in compliance with the Medicare and Medicaid EHR Incentive Program,which states Providers who transition their patient to another setting of careor provider of care or refers their patient to another provider of care shouldprovide summarycare record for each transition of care or referral. weeSPIN Allergies Active Allergy Reactions Severity Noted Date Comments Amoxicillin-Pot Clavulanate Diarrhea 09/14/2012 Lorazepam Anxiety 09/14/2012 Morphine Respiratory Arrest High 09/14/2012 Sulfa Antibiotics Hives 09/14/2012 Medications Medication Sig Dispensed Refills Start Date End Date Status omeprazole (PRILOSEC) Take 20 mg by 0 09/14/2012 Active 20 MG capsule mouth daily (every 24 hours). traZODone (AKA Take 50 mg by 0 09/14/2012 Active DESYREL) 50 MG tablet mouth nightly. senna (SENNA) 8.6 MG Take 1 Tablet by 0 09/14/2012 Active tablet mouth as needed. Multiple Take 1 tablet by 0 09/14/2012 Ac tive Vitamins-Minerals mouth daily (every (MULTIVITAMIN ADULT 24 hours). OR) methadone (AKA Take 5 mg by mouth 0 09/14/2012 Active DOLOPHINE) 5 MG two times a day. tabletIndications: Indications: EDWIN PERDOMO Thu EDWIN PERDOMO Thu 11:38 AM Oct 25, 2012 11:38 taking twice daily AM taking twice daily HYDROcodone-acetaminop Take 1 tablet by 0 09/14/2012 Active hen (AKA mouth every 6 VICODIN,LORTAB) 5-500 hours as needed. MG tablet Calcium Take by mouth. 0 09/14/2012 Acti ve Citrate-Vitamin D (CALCIUM CITRATE + D OR) fluticasone (AKA Place 2 sprays 0 09/14/2012 Active FLONASE) 50 MCG/ACT into each nostril nasal solution daily (every 24 hours). Dose is for each nostril. furosemide (AKA LASIX) Take 40 mg by 0 09/14/2012 Active 40 MG tablet mouth daily (every 24 hours). potassium chloride 10 Take 10 mEq by 0 09/14/2012 Active MEQ controlled release mouth 2 times capsule daily. simvastatin (AKA Take 80 mg by 0 09/14/2012 Active ZOCOR) 80 MG mouth daily at tabletIndications: bedtime. alternate between Indications: 1/2-1 tab daily alternate between 12-1 tab daily ALBUterol sulfate HFA Inhale 2 puffs 1 Inhaler 1 03/03/2013 Active 108 (90 BASE) MCG/ACT every 4 hours as inhaler needed. esomeprazole (NEXIUM) Take 20 mg by 0 Active 20 MG capsule mouth daily. raNITIdine (ZANTAC) Take 150 mg by 0 Active 150 MG tablet mouth two times a day. cephalexin (KEFLEX) Take 500 mg by 0 Active 500 MG capsule mouth every 8 hours. Active Problems Problem Noted Date Subclinical hyperthyroidism 11/13/2017 Elevated parathyroid hormone 11/13/2017 Hypocalcemia 11/13/2017 Immunizations Name Administration Dates Next Due Flu Vac Preserv Free (3+yrs) 12/16/2011 TDAP (ADACEL) 05/10/2010 Zoster (Zostavax) 11/11/2011 Social History Tobacco Use Types Packs/Day Years [...] Assigned at Date Recorded Not on file Last Filed Vital Signs Vital Sign Reading Time Taken Comments Blood Pressure 102/65 11/13/2017 2:06 PM CDT Pulse 82 11/13/2017 2:06 PM CDT Temperature 36.5 ??C (97.7 ??F) 03/03/2013 10:55 AM FREEZER PERSON Respiratory Rate - - Oxygen Saturation - - Inhaled Oxygen Concentration - - Weight 73.4 kg (161 lb 12.8 oz) 11/13/2017 2:06 PM CDT Height - - Body Mass Index - - Plan of Treatment Health Maintenance Due Date Last Done Comments Colon Cancer Screening Plan 1950 Due Hep C Screening (Preventive 1950 Services) Medicare Welcome Visit 1950 Mammogram 1950 COVID-19 Vaccine (#1) 1950 Cholesterol 06/10/1995 Zoster/Shingles (2 of 3) 01/06/2012 11/11/2011 Dexa 06/10/2015 Pneumococcal 65+ Yrs (2 - 05/12/2016 08/02/2014, 05/13/2011 PPSV23) DTaP/Tdap/Td (2 - Tdap) 05/10/2020 05/10/2010, 08/18/1994 Influenza (#1) 2021 11/09/2019, 12/02/2018, 12/03/2017, Additional history exists HepA Aged Out No longer eligib le based on patient 's age to complete this topic HepB Aged Out No longer eligib le based on patient 's age to complete this topic Hib Aged Out No longer eligib le based on patient 's age to complete this topic IPV (Polio) Aged Out No longer eligib le based on patient 's age to complete this topic MCV4 Aged Out No longer eligib le based on patient 's age to complete this topic Insurance Payer Benefit Plan Subscriber ID Effective Phone Address Typ e / Group Dates [facility] MEDICARE [id number] 2018-Pre [phone] [address] Medicare ADVANTAGE sent [phone] [place] [address]
--- OUTSIDE RECORDS SUMMARY | 2021-11-12 14:44 | XMS_ITS | Clinical Summary ---
:1950 Author Organization [facility] [place] [address] Care Team Providers Name Role Phone Idalmis Sloan MD Primary Care Provider Unavailable Allergies Active Allergy Reactions Severity Noted Date Comments Amoxicillin-Pot Clavulanate Hives 07/12/2012 Ciprofloxacin Confusion 07/12/2012 Doxycycline Diarrhea 11/06/2017 Lorazepam Confusion 07/12/2012 Morphine Shortness Of Breath 07/12/2012 Potassium Clavulanate Hives 01/05/2009 Sulfa (Sulfonamide Antibiotics) Hives 3 Medications Medication Sig Dispensed Refills Start End Date Status Date potassium chloride Take 10 mEq by 0 Active (MICRO-K) 10 mEq CR mouth 2 times capsule daily with meals. simvastatin (ZOCOR) Take 80 mg by 0 Active 80 mg tablet mouth at bedtime. albuterol, refill, Inhale 2 Puffs by 0 Active (VENTOLIN) 90 mouth. mcg/actuation inhaler traZODone (DESYREL) Take 50 mg by 0 Active 50 mg tablet mouth at bedtime if needed. methadone Take 5 mg by mouth 0 A ctive (DOLOPHINE) 5 mg 2 times daily. tablet MULTIVITAMIN ORAL Take 1 Tab by 0 Active mouth once daily. CALCIUM Take 1 Tab by 0 Active CARBONATE/VITAMIN D2 mouth 2 times (CALCIUM 600 + D daily. ORAL) HYDROcodone-acetamin Take 1 tablet by 0 Active ophen, 5-325 mg, mouth every 4 8 (NORCO) per tablet hours if needed for Pain Max acetaminophen dose: 4000 mg in 24 hrs. furosemide (LASIX) Take 40 mg by 0 Active 40 mg tablet mouth once daily. 3 polyethylene Drink 3 quarts the 4000 mL 0 Active glycol-electrolyte day prior to 9 (GOLYTELY) colonoscopy and 1 236-22.74-6.74 -5.86 quart 6 hours gram prior to suspensionIndication colonoscopy s: Screening for appointment colon cancer albuterol HFA Inhale 2 Puffs by 0 Active (PRO-AIR; VENTOLIN; mouth. PROVENTIL) 90 mcg/actuation inhaler cyclobenzaprine Take 1 Tablet by 0 Active (FLEXERIL) 5 mg mouth every 8 tablet hours. diclofenac topical APPLY 2 TO 4 GRAMS 0 Active (VOLTAREN) 1 % gel TOPICALLY TWICE 1 DAILY diphenoxylate-atropi TAKE 2 TABLETS BY 0 Active ne, 2.5-0.025 mg, MOUTH TWICE DAILY 1 (LOMOTIL) 2.5-0.025 WITH A MEAL mg tablet NEEDED esomeprazole Take 20 mg by 0 Act sung (NEXIUM) 20 mg mouth. capsule latanoprost INSTILL 1 DROP 0 Act sung (XALATAN) 0.005 % INTO BOTH EYES 1 ophthalmic solution EVERY NIGHT AT BEDTIME methocarbamoL Take 500 mg by 0 A ctive (ROBAXIN) 500 mg mouth. 1 tablet Saccharomyces Take 250 mg by 0 A ctive boulardii mouth. 9 (FLORASTOR) 250 mg capsule sennosides-docusate, Take 1 Tablet by 0 Active 8.6-50 mg, (SENOKOT mouth 2 times 9 S) 8.6-50 mg tablet daily. fluticasone Inhale by mouth. 0 A ctive propion-salmeteroL (Advair Diskus) 100-50 mcg/dose diskus inhaler LORazepam (ATIVAN) TAKE 1 TABLET BY 0 Active 0.5 mg tab MOUTH ONCE FOR [address] SCAN montelukast Take 10 mg by 0 Acti ve (SINGULAIR) 10 mg mouth at bedtime. 1 tablet ondansetron (ZOFRAN DISSOLVE 1 TABLET 0 Active ODT) 4 mg ON THE TONGUE 1 disintegrating EVERY 6 HOURS tablet NEEDED oxybutynin Take 5 mg by mouth 0 Active (DITROPAN) 5 mg 2 times daily. 1 tablet spironolactone Take 25 mg by 0 A ctive (ALDACTONE) 25 mg mouth every 1 tablet morning. tolterodine (DETROL Take 4 mg by mouth 0 Active LA) 4 mg once daily. 1 Extended-Release capsule potassium chloride Take 4 Capsules by 0 Active (MICRO-K) 10 mEq mouth once daily. Controlled-release capsule hydrocortisone Insert 1 20 Suppository 5 Active (ANUSOL-HC Suppository (25 1 SUPPOSITORY) 25 mg mg) rectally 2 suppositoryIndicatio times daily if ns: Hemorrhoids, needed for internal Hemorrhoid Pain/Itch. Active Problems Problem Noted Date Adenomatous colon polyp 09/30/2018 Overview: Colonoscopy 08/2018 polyp, repeat in 5 ye ars Immunizations Name Administration Dates Next Due Influenza A (H1N1), Inactivated 02/16/2009 Influenza Virus, Unspecified 11/28/2008 Influenza, High-dose Inactivated 11/28/2016, 11/26/2015 Influenza, IIV3 (Age 6-35 mos) 12/22/2013, 12/10/2012, 12/15, 12/27/2010, 12/03/2009 Influenza, IIV3 (Age >=3 years) 12/16/2011, 12/31/2006, 12/01 Influenza, IIV4 12/08/2014 Pneumococcal Poly,23-Valent 05/13/2011 (Pneumovax) Pneumococcal conj 13-Valent (Prevnar 08/02/2014 13) Td (Age >=7 Years) 08/18/1994 Tdap 05/10/2010 Zoster (Zostavax-ZVL, live) 11/11/2011 Social History Tobacco Use Types Packs/Day Years Used Date Former Smoker Cigarettes 0.5 Quit: 12/03/19 17 Smokeless Tobacco: Never Used Alcohol Use Standard Drinks/Week Comments Yes 0 (1 standard drink = 0.6 oz pure alcoho l) Sex Assigned at Date Recorded Not on file Obstetrics History Last Filed Vital Signs Vital Sign Reading Time Taken Comments Blood Pressure 146/97 12/15/2020 7:01 PM CDT Pulse 94 12/15/2020 7:01 PM CDT Temperature 36.1 ??C (96.9 ??F) 12/15/2020 7:01 PM CDT Respiratory Rate 16 12/15/2020 7:01 PM CDT Oxygen Saturation 96% 12/15/2020 7:01 PM CDT Inhaled Oxygen Concentration - - Weight 63.5 kg (140 lb) 12/15/2020 7:01 PM CDT Height 152.4 cm (5') 06/30/2020 7:11 PM CDT Body Mass Index 27.34 06/30/2020 7:11 PM CDT Plan of Treatment Health Maintenance Due Date Last Done Comments Depression screening for age 12+ 1962 Hepatitis C screening for age 0406/09/1968 18-79 Lipids for age 45-75 06/10/1995 Mammogram for age 45-75 06/10/1995 Zoster (shingles) series for age 1101/06/2012 11/11/2011 50+ (2 of 3) DEXA/DXA scan for age 65+ 06/10/2015 Medicare Wellness for age 65+ 06/10/2015 Pneumococcal series for age 65+ 05/12/2016 08/02/2014, 04/30 (#3) Tetanus booster 05/10/2020 05/10/2010, 08/18/1994 COVID-19 vaccine series (3 - 04/17/2021 11/15/2020, 021 Booster for Pfizer series) BMI (ht and wt on same day) for 06/30/2021 06/30/2020, 07/2018 age 18+ Influenza for age 65+ 10/31/2021 11/28/2016, 11/26/2015, 12/08/2014, Additional history exists Colonoscopy through age 75 09/27/2028 09/27/2018, 9, 09/27/2018 Tdap Completed 05/10/2010 Results Not on filefrom Last 3 Months Insurance Payer Benefit Plan / Subscriber ID Effective Dates Phone Addre ss Type Group MEDICARE PART A - MEDICARE PART A [id number] 2008-Prese ATTN: CLAIMS HB USE ONLY HB ONLY nt [address] [place] [phone] [facility] MR [id number] 2020-Presen [address] [address] [place] [address] Advance Directives Latest Code Status on File Code Status Date Activated Date Inactivated Comments Full Code 07/16/2012 5:52 PM 07/17/2012 6:32 PM Full Code 07/16/2012 10:11 AM 07/16/2012 5:52 PM Care Teams System Administrator Relationship Specialty Start Date End Date Idalmis Sloan MD PCP - General Family Practice 07/15/12
--- OUTSIDE RECORDS SUMMARY | 2021-11-12 14:44 | XMS_ITS | Encounter Summary ---
:1950 Author Organization [facility] Address [address] [place] [address] Care Team Providers Name Role Phone Unavailable Primary Care Provider Unavailable Reason for Visit Reason Comments Other Encounter Details Date Type Department Care Team Description 11/20/2017 Telephone [facility] 3800 Dustin Cagle MD Other Endocrinology [address] [place] [address] [phone] (Wo rk) Social History Tobacco Use Types [...] documented as of this encounter Nursing Notes Jenifer Marin RN - 11/23/2017 8:43 AM CDT Called Nuc Med and cancelled uptake and scan per below. Anirudh Cagle MD - 11/20/2017 5:06 PM CDT I got her voicemail, sent her a long mychart note. Please cancel her uptake and scan. Jenifer Marin RN - 11/20/2017 3:21 PM CDT Pt. Called in to request interpretation/recommnedations for labs that were completed on 11/16/17. documented in this encounter Plan of Treatment Not on filedocumented as of this encounter Visit Diagnoses Diagnosis Low TSH level - Primary Nonspecific abnormal results of thyroid function study Elevated parathyroid hormone (HRC) Unspecified endocrine disorder documented in this encounter
--- OUTSIDE RECORDS SUMMARY | 2021-11-12 14:45 | XMS_ITS | Encounter Summary ---
:1950 Author Organization [facility] Address [address] [place] [address] Care Team Providers Name Role Phone Unavailable Primary Care Provider Unavailable Encounter Details Date Type Department Care Team Description 10/25/2012 Lab Visit [facility] 3850 Rash and other nonspecific skin eruption; Laboratory Unspecified pruritic disorde r [address] [place], [place] [address] Social History Tobacco Use Types Packs/Day Years Used Date Smoking Tobacco: Never Assessed Sex Assigned at Date Recorded Not on file documented as of this encounter Progress Notes Megan Son MD - 10/25/2012 3:42 PM CDT Quick Note: Please call and let her know lymphocytes are ok documented in this encounter Miscellaneous Notes Miscellaneous - 04/11/2016 4:09 AM CSTNotes Recorded by Hira Link RN on 10/25/2012 at 5:13 PMPt notified.------Notes Recorded by Megan Son MD on 10/25/2012 at 3:42 PMPlease call and let her know lymphocytes are ok L ASSOCIATE Miscellaneous - 04/11/2016 4:09 AM CSTNotes Recorded by Hira Link RN on 10/25/2012 at 5:13 PMPt notified.------Notes Recorded by Megan Son MD on 10/25/2012 at 3:42 PMPlease call and let her know lymphocytes are ok L ASSOCIATE documented in this encounter Plan of Treatment Not on filedocumented as of this encounter Procedures Procedure Name Priority Date/Time Associated Diagnosis Comme nts COMPLETE BLOOD Routine 10/25/2012 12:18 Rash and other Results for this COUNT-W/DIFF PM CDT nonspecific skin procedure a re in eruption the results section. DIFFERENTIAL Routine 10/25/2012 12:18 Results for this PM CDT procedure are i n the results section. documented in this encounter Results Differential (10/25/2012 12:18 PM CDT) athologist Signature Absolute 4.8 1.8 - 8.0 HP CONVERSION Neutrophils k/cmm Absolute 2.4 1.1 - 4.0 HP CONVERSION Lymphocytes k/cmm Absolute 0.3 0.2 - 0.8 HP CONVERSION Monocytes k/cmm Absolute 0.1 0.0 - 0.5 HP CONVERSION Eosinophils k/cmm Absolute 0.0 0.0 - 0.2 HP CONVERSION Basophils k/cmm Specimen Anatomical Collection Method Collection Time Receive d Time (Source) Location / / Volume Laterality 10/25/2012 12:18 10/25/2012 PM CDT 12:18 PM CDT Narrative HP CONVERSION - 10/25/2012 12:26 PM CDT Performed at [facility], [address] [place] [address] Transcriptions 04/11/2016 4:09 AM CSTNotes Recorded by Hira Link RN on 10/25/2012 at 5:13 PMPt notified.------Notes Recorded by Megan Son MD on 10/25/2012 at 3:42 PMPlease call and let her know lymphocytes are ok Megan Son MD LAB_1 Performing Organization Address City/State/ZIP Code Phon e Number HP CONVERSION Complete Blood Count W/Diff (10/25/2012 12:18 PM CDT) athologist Signature White Blood Cell 7.6 3.8 - 11.0 HP CONVERSIO N Count k/cmm Red Blood Cell 4.32 3.70 - HP CONVERSION Count 5.20 m/cmm Hemoglobin 13.9 11.8 - HP CONVERSION 15.5 g/dL Hematocrit 41.8 35.0 - HP CONVERSION 46.0 % Mean Corpuscular 96.9 80.0 - HP CONVERSION Volume 100.0 fL RDW 13.3 11.0 - HP CONVERSION 15.0 % Platelet Count 292 140 - 450 HP CONVERSION k/cmm Specimen Anatomical Collection Method Collection Time Receive d Time (Source) Location / / Volume Laterality 10/25/2012 12:18 10/25/2012 PM CDT 12:18 PM CDT Narrative HP CONVERSION - 10/25/2012 12:26 PM CDT Performed at [facility], [address] [place] [address] Transcriptions 04/11/2016 4:09 AM CSTNotes Recorded by Hira Link RN on 10/25/2012 at 5:13 PMPt notified.------Notes Recorded by Megan Son MD on 10/25/2012 at 3:42 PMPlease call and let her know lymphocytes are ok Megan Son MD LAB_1 Performing Organization Address City/State/ZIP Code Phon e Number HP CONVERSION documented in this encounter Visit Diagnoses Diagnosis Rash and other nonspecific skin eruption Unspecified pruritic disorder documented in this encounter
--- OUTSIDE RECORDS SUMMARY | 2021-11-12 14:45 | XMS_ITS | Encounter Summary ---
:1950 Author Organization [facility] Address [address] [place] [address] Care Team Providers Name Role Phone Unavailable Primary Care Provider Unavailable Reason for Referral Specialty Diagnoses / Procedures Referred By Contact Refer red To Contact Masood Wright, [facility] [address] [place] [address] Referral ID Status Reason Start Date Expiration Date Visits Requ ested Visits Authorized Reason for Visit Reason Comments Rash Encounter Details Date Type Department Care Team Description 09/22/2012 Initial Consult [facility] 3800 Megan Son MD Rash/skin eruption (Primary Dx); Dermatology [address] Rash and other nonspecific s kin eruption [address] [place] [address] [phone] Social History Tobacco Use Types Packs/Day Years Used Date Smoking Tobacco: Never Assessed Sex Assigned at Date Recorded Not on file documented as of this encounter Progress Notes Megan Son MD - 10/12/2012 4:00 PM CDT Quick Note: Discussed with her. Would send rx for Clobetasol cream to apply bId to itchy areas. 60 g, 1 refill.Also send rx for doxy 50mg PO BID x 1 week, QS, no refills. Please call her with different options fro follow up visit in 2 weeks. Megan Son MD - 10/06/2012 8:25 AM CDT Quick Note: Called, left a detailed message. Would like to hear how she is doing on the medicine. Megan Son MD - 10/05/2012 11:43 AM CDT Quick Note: Called, left message. Megan Son MD - 09/22/2012 8:20 PM CDT Chief complaint: Rash HPI: Krys Mosher is a 62 y.o. female here for evaluation of a skin rash over whole body going on for4-5 weeks. Seen [facility] twice for this condition. Red bumps with itching. Tried Bactroban cream, OTCallergy medication, hydrocortisone, hydroxizine. The Bactroban seemed to help little but rash continues to spread. Was in patient hospital for back surgery and rash has been present since and does not believe she has had any new medications prior to the rash. Had biopsy at [facility] which she thought the results were neuropathic related. Was on Prednisone for five days which helped the rash, also states she has a history of MRSA. PMH: No past medical history on file. Medications: Current Outpatient Prescriptions on File Prior to Visit Medication Sig Dispense Refill ??? albuterol HFA 90 mcg/actuation inhaler Inhale 2 puffs every 6 hours as needed. ??? alendronate (FOSAMAX) 70 mg tablet Take 70 mg by mouth every 7 days. Take 30 minutes before first dpju-detbf-ahwdevcgdl. Avoid lying down for 30 minutes. ??? Calcium-Cholecalciferol, D3, 400-133.3 mg-unit Tab Take by mouth. ??? conjugated estrogens (PREMARIN) vaginal cream Place vaginally daily (every 24 hours). ??? fluticasone (FLONASE) 50 mcg/actuation nasal spray Place 2 sprays into each nostril daily (every24 hours). Dose is for each nostril. ??? furosemide (LASIX) 40 mg tablet Take 40 mg by mouth daily (every 24 hours). ??? gabapentin (NEURONTIN) 300 mg capsule Take 300 mg by mouth 3 times daily. ??? HYDROcodone-acetaminophen (VICODIN) 5-500 mg per tablet Take 1 tablet by mouth every 6 hours as needed. ??? methadone (DOLOPHINE) 5 mg tablet Take 5 mg by mouth every 4 hours as needed. ??? methylphenidate (METHYLIN ER) 10 mg ER tablet Take 10 mg by mouth every morning. ??? multivitamin (THERAGRAN) tablet Take 1 tablet by mouth daily (every 24 hours). ??? mupirocin (BACTROBAN) 2 % ointment Apply topically 3 times daily. Apply a thin film to affected area.. 30 g 0 ??? omeprazole (PRILOSEC) 20 mg capsule Take 20 mg by mouth daily (every 24 hours). ??? potassium chloride (MICRO-K) 10 mEq CR capsule Take 10 mEq by mouth 2 times daily. ??? senna (SENOKOT) 8.6 mg tablet Take 1 tablet by mouth daily (every 24 hours). ??? simvastatin (ZOCOR) 80 mg tablet Take 80 mg by mouth nightly. ??? traZODone (DESYREL) 50 mg tablet Take 50 mg by mouth nightly. No current facility-administered medications on file prior to visit. Allergies: Allergies Allergen Reactions ??? Morphine Respiratory Arrest ??? Augmentin (Amoxicillin-Pot Clavulanate) Diarrhea ??? Lorazepam Anxiety ??? Quinolones Anxiety ??? Sulfa (Sulfonamide Antibiotics) Hives SH: History Social History ??? Marital Status: Spouse Name: N/A Number of Children: N/A ??? Years of Education: N/A Occupational History ??? Not on file. Social History Main Topics ??? Smoking status: Current Every Day Smoker -- 1.00 packs/day Types: Cigarettes ??? Smokeless tobacco: Not on file ??? Alcohol Use: Not on file ??? Drug Use: Not on file ??? Sexually Active: Not on file Other Topics Concern ??? Not on file Social History Narrative ??? No narrative on file ROS: Complete 8 pt ROS obtained and negative. See HPI for pertinent positives. PE: Healthy appearing female in no acute distress. Alert and oriented x 3. Exam includes : scalp, face, neck, chest, back, arms, legs, abdomen, fingernails. Pertinent findings include: Excoriated red papules on upper back, calves, arms abdomen. Sparring of the bellybutton, thighs, andaxilla. A/P: 1.Drug reaction (from hospital stay in June) vs. dermal hypersensitivity, discussed having labs drawnalso discussed getting labs and slides from [facility] vs doing another biopsy today. Patientelected to have biopsy done today. release of information sent to [facility] today. After disc ussion, a punch biopsy was performed to help elucidate diagnosis as well as obtaining results of previous biopsy. The area was selected, sterilely prepped, and a 4 mm punch biopsy performed. Hemostasisachieved with 3 4.0 monocryl sutures. Vaseline and bandaid applied for wound care. Will contact whenresults are available. Ordered CBC, LFT, Creatinine, LENA, CRP, thyroid, predinisone 20 mg x7 days, 10mg x 7 days and 5mg x 7 days, and refilled Mupirocin. Also recommended sarna for the itch. Dayna Luther, am serving as a scribe to document services personally performed by Megan Son MD at this visit, based upon the providers statements to me. All documentation has been reviewed by the aforementioned doctor prior to being entered into the official medical record. Entered on 09/22/2012 at 10:06 AM. Megan Luther, attest that the above named individual is acting in scribe capacity, has observed myperformance of the services performed at this visit and has documented them in accordance with my direction. Entered on 09/22/2012 at 8:19 PM. Megan Luther, attest that the above named individual is acting in scribe capacity, has observed myperformance of the services performed at this visit and has documented them in accordance with my direction. Entered on 09/22/2012 at 8:18 PM. documented in this encounter Miscellaneous Notes Miscellaneous - 04/11/2016 4:57 AM CSTNotes Recorded by Cherelle Post RN on 10/12/2012 at 4:27 PMspoke with patient, scheduled follow up appt for 10/25. rx for clobetasol cream bid to itchy areas and doxy 50 mg po bid x 1week. informed no dairy when taking medicaions and sun-sensitivity------Notes Recorded by Megan Son MD on 10/12/2012 at 4:00 PMDiscussed with her. Would send rx for Clobetasol cream to apply bId to itchy areas. 60 g, 1 refill. Also send rx for doxy 50mg PO BID x 1 week, QS, no refills. Please call her with different options fro follow up visit in 2 weeks.------Notes Recorded by Megan Son MD on 10/06/2012 at 8:25 AMCalled, left a detailed message. Would like to hear how she is doing on the medicine.------Notes Recorded by Megan Son MD on 10/05/2012 at 11:43 AMCalled, left message.------Notes Recorded by Cherelle Post RN on 10/04/2012 at 5:00 PMreturning your call at 4:42 pm today------Notes Recorded by Cherelle Post RN on 10/04/2012 at 2:28 PMpatient lm this afternoon. asking for return call regarding biopsy results------Notes Recorded by Cherelle Pots RN on 09/30/2012 at 8:41 AMdiscussed with as patient wanted results before Thursday. Appears that results were already discussed with the patient at the end of the day yesterday. will discuss results further withthe patient when she returns next week.------Notes Recorded by Yomaira Payton RN on 09/29/2012 at 6:04 PMDocumentation Yomaira Payton RN at 09/29/12 1802 Status: Signed Per Verbal Order Dr. Jones: may contact the pt and inform her that it did not show skin cancer or anything really bad. It showed inflammation of the skin related to rubbing, friction, or pressure. Shemust follow up with Dr. Son when she returns to the office to see, if she has any other recommendations.Discussed the results and information with the pt. Pt verbalized understanding of the information and stated she will F/U as recommended. Kelly Ashby RN at 09/29/12 1601 Status: Signed Calling for biopsy results---please advise in 's absence (rc 8-5) She may be reached @[phone]. Thank you. RYING MANAGER documented in this encounter Plan of Treatment Scheduled Referrals Name Type Priority Associated Diagnoses Order S chedule Dermatology Referral Routine Rash/skin eruption Ordered: 09/22/2012 Consult-Adult/Peds documented as of this encounter Procedures Procedure Name Priority Date/Time Associated Diagnosis Comme nts SURGICAL PATH, [place]ARK Routine 09/22/2012 7:00 AM Re sults for this NICOLLET CDT procedure are i n the results section. documented in this encounter Results Pathology Report (09/22/2012 7:00 AM CDT) Component Value Ref Test Analysis Performed At [facility] gist Range Method Time Signature Path: ? FINAL DERMATOPATHOLOGY REPO RT HP CONVERSION Pathology #: [id number] ? Date Obtained: 09/22/2012 ?Date Received: 09/22/2012 DIAGNOSIS: ? Skin, left arm, punch biopsy: ?- Organizing trauma site with epidermal hyperplasia , reactive ? keratinocyte atypia, dermal and subcutaneous necro sis, and mixed ? inflammation. ? COMMENT: The inflammation in this biopsy could all be secondary to ? the traumatic ulcer. The findings do not strongly sug gest an ? underlying inflammatory dermatosis, but that possibil ity is not ? excluded. ? Jose DAVIS ? (electronic signatur e) ? 09/24/2012 ??18:0 2 CLINICAL NOTES: ? R/O Dermal hypersensitivity ORGAN/TISSUE SITE ? Left arm GROSS DESCRIPTION: ? Received in a formalin-filled container labeled with the patient's ? name is a 4 x 4 x 4 mm punch biopsy of skin. The spec imen is ? marked with black ink, bisected, and submitted entire ly in one ? cassette. ?PEDEL MICROSCOPIC DESCRIPTION: ? Microscopic evaluation performed. PAS stain shows no fungal ? organisms, with adequate external control. Multiple d eeper levels ? in the tissue block are evaluated. ? End of Report Specimen Anatomical Collection Method Collection Time Receive d Time (Source) Location / / Volume Laterality SKIN PUNCH BIOPSY 09/22/2012 7:00 AM 08/31 7:00 SPECIMEN / Unknown CDT AM CDT Transcriptions 04/11/2016 4:57 AM CSTNotes Recorded by Cherelle Post RN on 10/12/2012 at 4:27 PMspoke with patient, scheduled follow up appt for 10/25. rx for clobetasol cream bid to itchy areas and doxy 50 mg po bid x 1week. informed no dairy when taking medicaions and sun-sensitivity------Notes Recorded by Megan Son MD on 10/12/2012 at 4:00 PM Discussed with her. Would send rx for Cl obetasol cream to apply bId to itchy areas. 60 g, 1 refill. Also send rx for doxy 50mg PO BID x 1 week, QS, no refills. Please call her with different options fro follow up visit in 2 weeks.------ Notes Recorded by Megan Son MD on 10/06 at 8:25 AMCalled, left a detailed message. Would like to hear how she is doing on the medicine.------Notes Recorded by Megan Son MD on 10/05/2012 at 11:43 AMCalled, left message.------ Notes Recorded by Cherelle Post RN on 10/04/2012 at 5:00 PMreturning your call at 4:42 pm today------Notes Recorded by Cherelle Post RN on 10/04/2012 at 2:28 PMpatient lm this afternoon. asking for return call regarding biopsy results------ Notes Recorded by Cherelle Post RN on 09/30/2012 at 8:41 AMdiscussed with as patient wanted results before Thursday. Appears that results were already di scussed with the patient at the end of yesterday. will discuss results further with the patient when she returns next week.------Notes Recorded by Yomaira Payton RN on 09/29/2012 at 6:04 PMDocumentation Yomaira Payton RN at 09/29/12 1802 Stat us: Signed Per Verbal Order Dr. Jones: may contact the pt and inform her that it did not show skin cancer or an ything really bad. It showed inflammatio n of the skin related to rubbing, friction, or pressure. She must follow up with Dr. Son when she returns to the office to see, if she has any other recommendations. Discussed the results and information wi th the pt. Pt verbalized understanding of the information and stated she will F/U as recommended. Kelly Ashby RN at 09/29/12 1601 Status: Signed Calling for biopsy results---please adv ise in 's absence (rc 8-5) She may be reached @[phone]. Thank you. Megan Son MD LAB_1 Performing Organization Address City/State/ZIP Code Phon e Number HP CONVERSION documented in this encounter Visit Diagnoses Diagnosis Rash/skin eruption - Primary Rash and other nonspecific skin eruption Rash and other nonspecific skin eruption documented in this encounter
--- OUTSIDE RECORDS SUMMARY | 2021-11-12 14:45 | XMS_ITS | Encounter Summary ---
:1950 Author Organization [facility] Address [address] [place] [address] Care Team Providers Name Role Phone Unavailable Primary Care Provider Unavailable Reason for Visit Reason Comments Rash Encounter Details Date Type Department Care Team Description 09/20/2012 Telephone [facility] [place] [facility] [address] [facility] [place], [place] [id number] [address] [place] [address] [place] [phone] [place], [place] [address] (Wo rk) Social History Tobacco Use Types Packs/Day Years Used Date Smoking Tobacco: Never Assessed Sex Assigned at Date Recorded Not on file documented as of this encounter Nursing Notes Denise Mon - 09/21/2012 9:20 AM CDT LM to call [phone] to schedule an appointment. Denise Mon 9:18 AM 09/21/2012 itus Sanchez [facility] - 09/21/2012 9:00 AM CDT Called patient and left a message. Derm referral ordered. Pls help schedule Shelby Haines RN - 09/20/2012 1:23 PM CDT Action requested: Return Call Request Additional Info: Spoke with pt. Pt was seen by Dr. Bryce Canales on 09/14 for rash. She states that rash has improved minimally and she was told to call back half way through her medication. If rash wasn't much improved, she would be referred to Dermatology. Using topical cream and Benadryl at bedtime. 1. To Dr. Bryce Canales 09/21. Please review and advise. Call back number listed in contacts Yaritza Lozoya - 09/20/2012 1:14 PM CDT Pt states she was seen for rash, rash is improved slightly. documented in this encounter Plan of Treatment Not on filedocumented as of this encounter Visit Diagnoses Diagnosis Rash/skin eruption - Primary Rash and other nonspecific skin eruption documented in this encounter
--- OUTSIDE RECORDS SUMMARY | 2021-11-12 14:45 | XMS_ITS | Encounter Summary ---
:1950 Author Organization [facility] Address [address] [place] [address] Care Team Providers Name Role Phone Unavailable Primary Care Provider Unavailable Reason for Visit Reason Comments ECZEMA Encounter Details Date Type Department Care Team Description 11/02/2012 Procedure Visit [facility], Bravo Chao ECZEMA [address] [place] [address] Social History Tobacco Use Types Packs/Day Years Used Date Smoking Tobacco: Never Assessed Sex Assigned at Date Recorded Not on file documented as of this encounter Progress Notes Melony Lang RN - 11/02/2012 10:55 AM CDT Patient seen in clinic today for Phototherapy Treatment,UVB-Narrowband Rosales, for treatment of atopic dermatitis. This is the patient's first treatment, I discussed benefits and risks and we reviewed the patient handout info sheet. Discussed today's treatment with patient and first dose was started. See phototherapy log for details. documented in this encounter Plan of Treatment Not on filedocumented as of this encounter Visit Diagnoses Diagnosis Other atopic dermatitis and related cond itions - Primary documented in this encounter
--- OUTSIDE RECORDS SUMMARY | 2021-11-12 14:45 | XMS_ITS | Encounter Summary ---
:1950 Author Organization [facility] Address [address] [place] [address] Care Team Providers Name Role Phone Unavailable Primary Care Provider Unavailable Reason for Visit Reason Comments RESULTS, TEST Encounter Details Date Type Department Care Team Description 09/29/2012 Telephone [facility] Carlos Jones MD RESULTS, TEST [id number] [facility] [address] [place] [address] [place] [address] (Wo rk) Social History Tobacco Use Types Packs/Day Years Used Date Smoking Tobacco: Never Assessed Sex Assigned at Date Recorded Not on file documented as of this encounter Nursing Notes Yomaira Payton RN - 09/29/2012 6:02 PM CDT Per Verbal Order Dr. Jones: may contact the pt and inform her that it did not show skin cancer or anything really bad. It showed inflammation of the skin related to rubbing, friction, or pressure. She must follow up with Dr. Son when she returns to the office to see, if she has any other recommendations. Discussed the results and information with the pt. Pt verbalized understanding of the information and stated she will F/U as recommended. Kelly Ashby RN - 09/29/2012 4:01 PM CDT Calling for biopsy results---please advise in 's absence (rc 8-5) She may be reached @[phone]. Thank you. documented in this encounter Plan of Treatment Not on filedocumented as of this encounter Visit Diagnoses Not on filedocumented in this encounter
--- OUTSIDE RECORDS SUMMARY | 2021-11-12 14:45 | XMS_ITS | Encounter Summary ---
:1950 Author Organization [facility] Address [address] [place] [address] Care Team Providers Name Role Phone Unavailable Primary Care Provider Unavailable Reason for Visit Reason Comments ECZEMA Encounter Details Date Type Department Care Team Description 11/04/2012 Procedure Visit [facility], Bravo Chao ECZEMA [address] [place] [address] Social History Tobacco Use Types Packs/Day Years Used Date Smoking Tobacco: Never Assessed Sex Assigned at Date Recorded Not on file documented as of this encounter Progress Notes Idalmis Carrington LPN - 11/04/2012 10:51 AM CDT Patient seen in clinic today for Phototherapy Treatment,UVB-Narrowband Rosales for treatment of Atopicdermatits. Last treatment session was discussed with patient, no adverse reaction noted. Discussed today's treatment with patient and dose was increased per MD orders. See phototherapy log for details. documented in this encounter Plan of Treatment Not on filedocumented as of this encounter Visit Diagnoses Diagnosis Other atopic dermatitis and related cond itions - Primary documented in this encounter
--- OUTSIDE RECORDS SUMMARY | 2021-11-12 14:45 | XMS_ITS | Encounter Summary ---
:1950 Author [facility] Address [address] [place] [address] Care Team Providers Name Role Phone Unavailable Primary Care Provider Unavailable Encounter Details Date Type Department Care Team Description 09/22/2012 Lab Visit [facility] [address] Rash/skin eruption [address] [place], [place] [id number] Social History Tobacco Use Types Packs/Day Years Used Date Smoking Tobacco: Never Assessed Sex Assigned at Date Recorded Not on file documented as of this encounter Progress Notes Megan Mcqueen MD - 09/23/2012 10:02 PM CDT Quick Note: Please call pt - let her know that her labs are normal, with exception of a slightly elevated lymphocyte. AT this time, I would jsut recheck this in 2 weeks. Awaiting her biopsy results. Please let her know that I am out of the office next week. documented in this encounter Miscellaneous Notes Miscellaneous - 04/11/2016 5:07 AM CSTNotes Recorded by Cherelle Post RN on 09/28/2012 at 1:35 PMspoke with . put in lab for CBC for 2 weeks------ Notes Recorded by Cherelle Post RN on 09/27/2012 at 8:34 AMlm for patient and informed per dr. mcqueen. will verify what labs to order, but asked patient to recheck labs in 2 weeks.------Notes Recorded by Megan Mcqueen MD on 09/23/2012 at 10:02 PMPlease call pt - let her know that her labs are normal, with exception of a slightly elevated lymphocyte. AT this time, I would jsut recheck this in 2 weeks. Awaiting her biopsy results. Please let herknow that I am out of the office next week. PAPER JOURNALIST Miscellaneous - 04/11/2016 5:07 AM CSTNotes Recorded by Cherelle Post RN on 09/28/2012 at 1:35 PMspoke with . put in lab for CBC for 2 weeks------ Notes Recorded by Cherelle Post RN on 09/27/2012 at 8:34 AMlm for patient and informed per dr. mcqueen. will verify what labs to order, but asked patient to recheck labs in 2 weeks.------Notes Recorded by Megan Mcqueen MD on 09/23/2012 at 10:02 PMPlease call pt - let her know that her labs are normal, with exception of a slightly elevated lymphocyte. AT this time, I would jsut recheck this in 2 weeks. Awaiting her biopsy results. Please let herknow that I am out of the office next week. PAPER JOURNALIST Miscellcarol - 04/11/2016 5:07 AM CSTNotes Recorded by Cherelle Post RN on 09/28/2012 at 1:35 PMspoke with . put in lab for CBC for 2 weeks------ Notes Recorded by Cherelle Post RN on 09/27/2012 at 8:34 AMlm for patient and informed per dr. mcqueen. will verify what labs to order, but asked patient to recheck labs in 2 weeks.------Notes Recorded by Megan Mcqueen MD on 09/23/2012 at 10:02 PMPlease call pt - let her know that her labs are normal, with exception of a slightly elevated lymphocyte. AT this time, I would jsut recheck this in 2 weeks. Awaiting her biopsy results. Please let herknow that I am out of the office next week. PAPER JOURNALIST Miscellaneous - 04/11/2016 5:07 AM CSTNotes Recorded by Cherelle Post RN on 09/28/2012 at 1:35 PMspoke with . put in lab for CBC for 2 weeks------ Notes Recorded by Cherelle Post RN on 09/27/2012 at 8:34 AMlm for patient and informed per dr. mcqueen. will verify what labs to order, but asked patient to recheck labs in 2 weeks.------Notes Recorded by Megan Mcqueen MD on 09/23/2012 at 10:02 PMPlease call pt - let her know that her labs are normal, with exception of a slightly elevated lymphocyte. AT this time, I would jsut recheck this in 2 weeks. Awaiting her biopsy results. Please let herknow that I am out of the office next week. [facility] - 04/11/2016 5:07 AM CSTNotes Recorded by Cherelle Psot RN on 09/28/2012 at 1:35 PMspoke with . put in lab for CBC for 2 weeks------ Notes Recorded by Cherelle Post RN on 09/27/2012 at 8:34 AMlm for patient and informed per dr. mcqueen. will verify what labs to order, but asked patient to recheck labs in 2 weeks.------Notes Recorded by Megan Mcqueen MD on 09/23/2012 at 10:02 PMPlease call pt - let her know that her labs are normal, with exception of a slightly elevated lymphocyte. AT this time, I would jsut recheck this in 2 weeks. Awaiting her biopsy results. Please let herknow that I am out of the office next week. PAPER JOURNALIST Miscellcarol - 04/11/2016 5:07 AM CSTNotes Recorded by Cherelle Post RN on 09/28/2012 at 1:35 PMspoke with . put in lab for CBC for 2 weeks------ Notes Recorded by Cherelle Post RN on 09/27/2012 at 8:34 AMlm for patient and informed per dr. mcqueen. will verify what labs to order, but asked patient to recheck labs in 2 weeks.------Notes Recorded by Megan Mcqueen MD on 09/23/2012 at 10:02 PMPlease call pt - let her know that her labs are normal, with exception of a slightly elevated lymphocyte. AT this time, I would jsut recheck this in 2 weeks. Awaiting her biopsy results. Please let herknow that I am out of the office next week. PAPER JOURNALIST Miscellaneous - 04/11/2016 5:07 AM CSTNotes Recorded by Cherelle Post RN on 09/28/2012 at 1:35 PMspoke with . put in lab for CBC for 2 weeks------ Notes Recorded by Cherelle Post RN on 09/27/2012 at 8:34 AMlm for patient and informed per dr. mcqueen. will verify what labs to order, but asked patient to recheck labs in 2 weeks.------Notes Recorded by Megan Mcqueen MD on 09/23/2012 at 10:02 PMPlease call pt - let her know that her labs are normal, with exception of a slightly elevated lymphocyte. AT this time, I would jsut recheck this in 2 weeks. Awaiting her biopsy results. Please let herknow that I am out of the office next week. PAPER JOURNALIST documented in this encounter Plan of Treatment Not on filedocumented as of this encounter Procedures Procedure Name Priority Date/Time Associated Comments Diagnosis TSH AND FREE T4 (FRT4 Routine 09/22/2012 10:50 Rash/skin erupt ion Results for this IF TSH ABNORM) AM CDT procedure are in the results section. CREATININE / GFR Routine 09/22/2012 10:50 Rash/skin eruption R esults for this AM CDT procedure are i n the results section. COMPLETE BLOOD Routine 09/22/2012 10:50 Rash/skin eruption Res ults for this COUNT-W/DIFF AM CDT procedure are i n the results section. LIVER PANEL(HEPATIC Routine 09/22/2012 10:50 Rash/skin eruptio n Results for this FUNCTION PANEL) AM CDT procedure ar e in the results section. DIFFERENTIAL Routine 09/22/2012 10:50 Results for this AM CDT procedure are i n the results section. C-REACTIVE PROTEIN Routine 09/22/2012 10:50 Rash/skin eruption Results for this AM CDT procedure are i n the results section. LENA SCREEN Routine 09/22/2012 10:50 Rash/skin eruption Resul ts for this AM CDT procedure are i n the results section. documented in this encounter Results (ABNORMAL) Differential (09/22/2012 10:50 AM CDT) [facility] Method Time Signature Absolute 3.6 1.8 - 8.0 HP CONVERSION Neutrophils k/cmm Absolute 4.8 (H) 1.1 - 4.0 HP CONVERSION Lymphocytes k/cmm Absolute 0.5 0.2 - 0.8 HP CONVERSION Monocytes k/cmm Absolute 0.1 0.0 - 0.5 HP CONVERSION Eosinophils k/cmm Absolute 0.2 0.0 - 0.2 HP CONVERSION Basophils k/cmm Specimen Anatomical Collection Method Collection Time Receive d Time (Source) Location / / Volume Laterality 09/22/2012 10:50 09/22/2012 AM CDT 10:50 AM CDT Narrative HP CONVERSION - 09/22/2012 11:00 AM CDT Performed at [facility], [address] [place] [id number] Transcriptions 04/11/2016 5:07 AM CSTNotes Recorded by Cherelle Post RN on 09/28/2012 at 1:35 PMspoke with . put in lab for CBC for 2 weeks------Notes Recorded by Cherelle Post RN on 09/27/2012 at 8:34 AM lm for patient and informed per dr. britt alves will verify what labs to order, but asked patient to recheck labs in 2 weeks.------Notes Recorded by Megan Mcqueen MD on 09/23/2012 at 10:02 PM Please call pt - let her know that her l abs are normal, with exception of a slightly elevated lymphocyte. AT this time, I would jsut recheck this in 2 weeks. Awaiting her biopsy results. Please let her know that I am out of the office next week. Megan Mcqueen MD LAB_1 Performing Organization Address City/[facility] Code Phon e Number HP CONVERSION TSH AND FREE T4 (FRT4 IF TSH ABNORM) (09/22/2012 10:50 AM CDT) P athologist Signature Thyroid 1.45 0.20 - HP CONVERSION Stimulating 4.50 mIU/L Hormone Specimen Anatomical Collection Method Collection Time Receive d Time (Source) Location / / Volume Laterality 09/22/2012 10:50 09/22/2012 AM CDT 12:33 PM CDT Transcriptions 04/11/2016 5:07 AM CSTNotes Recorded by Cherelle Post RN on 09/28/2012 at 1:35 PMspoke with . put in lab for CBC for 2 weeks------Notes Recorded by Cherelle Post RN on 09/27/2012 at 8:34 AM lm for patient and informed per dr. britt alves will verify what labs to order, but asked patient to recheck labs in 2 weeks.------Notes Recorded by Megan Mcqueen MD on 09/23/2012 at 10:02 PM Please call pt - let her know that her l abs are normal, with exception of a slightly elevated lymphocyte. AT this time, I would jsut recheck this in 2 weeks. Awaiting her biopsy results. Please let her know that I am out of the office next week. Megan Mcqueen MD LAB_1 Performing Organization Address City/[facility] Code Phon e Number HP CONVERSION C-Reactive Protein (09/22/2012 10:50 AM CDT) P athologist Signature CRP 0.3 0.0 - 0.9 HP CONVERSION mg/dL Specimen Anatomical Collection Method Collection Time Receive d Time (Source) Location / / Volume Laterality 09/22/2012 10:50 09/22/2012 AM CDT 12:33 PM CDT Transcriptions 04/11/2016 5:07 AM CSTNotes Recorded by Cherelle Post RN on 09/28/2012 at 1:35 PMspoke with . put in lab for CBC for 2 weeks------Notes Recorded by Cherelle Post RN on 09/27/2012 at 8:34 AM lm for patient and informed per dr. britt bae. will verify what labs to order, but asked patient to recheck labs in 2 weeks.------Notes Recorded by Megan Mcqueen MD on 09/23/2012 at 10:02 PM Please call pt - let her know that her l abs are normal, with exception of a slightly elevated lymphocyte. AT this time, I would jsut recheck this in 2 weeks. Awaiting her biopsy results. Please let her know that I am out of the office next week. Megan Mcqueen MD LAB_1 Performing Organization Address City/State/ZIP Code Phon e Number HP CONVERSION LENA Screen (09/22/2012 10:50 AM CDT) Analysis Performed At Patho logist Time Signature Anti-Nuclear Negative Negative HP CONVERSION Ab Specimen Anatomical Collection Method Collection Time Receive d Time (Source) Location / / Volume Laterality 09/22/2012 10:50 09/22/2012 AM CDT 12:30 PM CDT Transcriptions 04/11/2016 5:07 AM CSTNotes Recorded by Cherelle Post RN on 09/28/2012 at 1:35 PMspoke with . put in lab for CBC for 2 weeks------Notes Recorded by Cherelle Post RN on 09/27/2012 at 8:34 AM lm for patient and informed per dr. britt bae. will verify what labs to order, but asked patient to recheck labs in 2 weeks.------Notes Recorded by Megan Mcqueen MD on 09/23/2012 at 10:02 PM Please call pt - let her know that her l abs are normal, with exception of a slightly elevated lymphocyte. AT this time, I would jsut recheck this in 2 weeks. Awaiting her biopsy results. Please let her know that I am out of the office next week. Megan Mcqueen MD LAB_1 Performing Organization Address City/State/ZIP Code Phon e Number HP CONVERSION Creatinine / GFR (09/22/2012 10:50 AM CDT) P athologist Signature Creatinine 0.8 0.4 - 1.3 HP CONVERSION Serum mg/dL Est GFR >60 >60 HP CONVERSION Am mL/min/1.7 3m2 Est GFR Non-Afr >60 >60 HP CONVERSION Am mL/min/1.7 3m2 Comment: Normal>60, moderate decrease 30 - 59, se ana maria decrease 15 - 29, renal failure <15 mL/min/1.73 m2 NOTE: ??Choose the eGFR result above cachorro ropriate for the race of the patient. Specimen Anatomical Collection Method Collection Time Receive d Time (Source) Location / / Volume Laterality 09/22/2012 10:50 09/22/2012 AM CDT 10:50 AM CDT Narrative HP CONVERSION - 09/22/2012 11:23 AM CDT Performed at [facility], [address] [place] [id number] Transcriptions 04/11/2016 5:07 AM CSTNotes Recorded by Cherelle Post RN on 09/28/2012 at 1:35 PMspoke with . put in lab for CBC for 2 weeks------Notes Recorded by Cherelle Post RN on 09/27/2012 at 8:34 AM lm for patient and informed per dr. britt bae. will verify what labs to order, but asked patient to recheck labs in 2 weeks.------Notes Recorded by Megan Mcqueen MD on 09/23/2012 at 10:02 PM Please call pt - let her know that her l abs are normal, with exception of a slightly elevated lymphocyte. AT this time, I would jsut recheck this in 2 weeks. Awaiting her biopsy results. Please let her know that I am out of the office next week. Megan Mcqueen MD LAB_1 Performing Organization Address City/State/ZIP Code Phon e Number HP CONVERSION Liver Panel(Hepatic Function Panel) (09/22/2012 10:50 AM CDT) [facility] Method Time Signature Alk Phos 94 25 - 135 HP CONVERSION U/L Bilirubin Total 0.4 0.2 - 1.2 HP CONVERSION mg/dL Bilirubin, Direct 0.1 0.0 - 0.4 HP CONVERSIO N mg/dL Protein Total, Serum 7.3 5.7 - 8.3 HP CONVER SEMAJ g/dL Albumin 4.7 3.4 - 5.0 HP CONVERSION g/dL Aspartate 36 0 - 45 HP CONVERSION Aminotransferase U/L Alanine 30 4 - 55 HP CONVERSION Aminotransferase U/L Specimen Anatomical Collection Method Collection Time Receive d Time (Source) Location / / Volume Laterality 09/22/2012 10:50 09/22/2012 AM CDT 10:50 AM CDT Narrative HP CONVERSION - 09/22/2012 11:23 AM CDT Performed at [facility], [address] [place] [address] Transcriptions 04/11/2016 5:07 AM CSTNotes Recorded by Cherelle Post RN on 09/28/2012 at 1:35 PMspoke with . put in lab for CBC for 2 weeks------Notes Recorded by Cherelle Post RN on 09/27/2012 at 8:34 AM lm for patient and informed per dr. britt bae. will verify what labs to order, but asked patient to recheck labs in 2 weeks.------Notes Recorded by Megan Mcqueen MD on 09/23/2012 at 10:02 PM Please call pt - let her know that her l abs are normal, with exception of a slightly elevated lymphocyte. AT this time, I would jsut recheck this in 2 weeks. Awaiting her biopsy results. Please let her know that I am out of the office next week. Megan Mcqueen MD LAB_1 Performing Organization Address City/State/ZIP Code Phon e Number HP CONVERSION Complete Blood Count W/Diff (09/22/2012 10:50 AM CDT) athologist Signature White Blood Cell 9.2 3.8 - 11.0 HP CONVERSIO N Count k/cmm Red Blood Cell 4.63 3.70 - HP CONVERSION Count 5.20 m/cmm Hemoglobin 15.5 11.8 - HP CONVERSION 15.5 g/dL Hematocrit 45.5 35.0 - HP CONVERSION 46.0 % Mean Corpuscular 98.3 80.0 - HP CONVERSION Volume 100.0 fL RDW 12.4 11.0 - HP CONVERSION 15.0 % Platelet Count 282 140 - 450 HP CONVERSION k/cmm Specimen Anatomical Collection Method Collection Time Receive d Time (Source) Location / / Volume Laterality 09/22/2012 10:50 09/22/2012 AM CDT 10:50 AM CDT Narrative HP CONVERSION - 09/22/2012 11:00 AM CDT Performed at [facility], [address] [place] [address] Transcriptions 04/11/2016 5:07 AM CSTNotes Recorded by Cherelle Post RN on 09/28/2012 at 1:35 PMspoke with . put in lab for CBC for 2 weeks------Notes Recorded by Cherelle Post RN on 09/27/2012 at 8:34 AM lm for patient and informed per dr. britt bae. will verify what labs to order, but asked patient to recheck labs in 2 weeks.------Notes Recorded by Megan Mcqueen MD on 09/23/2012 at 10:02 PM Please call pt - let her know that her l abs are normal, with exception of a slightly elevated lymphocyte. AT this time, I would jsut recheck this in 2 weeks. Awaiting her biopsy results. Please let her know that I am out of the office next week. Megan Mcqueen MD LAB_1 Performing Organization Address City/State/ZIP Code Phon e Number HP CONVERSION documented in this encounter Visit Diagnoses Diagnosis Rash/skin eruption Rash and other nonspecific skin eruption documented in this encounter
--- OUTSIDE RECORDS SUMMARY | 2021-11-12 14:45 | XMS_ITS | Encounter Summary ---
:1950 [address] 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 [address] [place], [place] [phone] [address] Social History Tobacco Use Types Packs/Day Years Used Date Smoking Tobacco: Never Assessed Sex Assigned at Date Recorded Not on file documented as of this encounter Last Filed Vital Signs Vital Sign Reading Time Taken Comments Blood Pressure 124/68 03/03/2013 10:55 AM FABRIC STRETCHER Pulse 84 03/03/2013 10:55 AM FABRIC STRETCHER Temperature 36.5 ??C (97.7 ??F) 03/03/2013 10:55 AM FABRIC STRETCHER Respiratory Rate - - Oxygen Saturation - - Inhaled Oxygen Concentration - - Weight - - Height - - Body Mass Index - - documented in this encounter Patient Instructions Patient InstructionsMoTammie cullen - 03/03/2013 11:13 AM CST Delsym for cough Mucinex D for sinus congestion. Ask the Pharmacist for this IC STRETCHER documented in this encounter Progress Notes Tammie Mohan - 03/03/2013 11:25 AM CST Clinic Visit SUBJECTIVE: Chief complaint: Cough History of Present Illness: Three-day history of productive cough. Has had wheezing previously with respiratory infections. She smokes half pack cigarettes daily. Has sinus congestion. On multiple medications for chronic pain management provided elsewhere. Past Medical History: Surgeries: Chronic Health Problems: Chronic foot pain Adverse Drug Reactions: Allergies Allergen Reactions ??? Morphine Respiratory Arrest ??? Augmentin (Amoxicillin-Pot Clavulanate) Diarrhea ??? Lorazepam Anxiety ??? Quinolones Anxiety ??? Sulfa (Sulfonamide Antibiotics) Hives Medications: Current Outpatient Prescriptions on File Prior to Visit Medication Sig Note Dispense Refill ??? [DISCONTINUED] albuterol HFA 90 mcg/actuation inhaler Inhale 2 puffs every 6 hours as needed. ??? alendronate (FOSAMAX) 70 mg tablet Take 70 mg by mouth every 7 days. Take 30 minutes before first vnpz-axmgz-eehjnstoze. Avoid lying down for 30 minutes. ??? Calcium-Cholecalciferol, D3, 400-133.3 mg-unit Tab Take by mouth. ??? [DISCONTINUED] conjugated estrogens (PREMARIN) vaginal cream Place vaginally daily (every 24 hours). ??? fluticasone (FLONASE) 50 mcg/actuation nasal spray Place 2 sprays into each nostril daily (every24 hours). Dose is for each nostril. ??? furosemide (LASIX) 40 mg tablet Take 40 mg by mouth daily (every 24 hours). ??? [DISCONTINUED] gabapentin (NEURONTIN) 300 mg capsule Take 300 mg by mouth 3 times daily. ??? HYDROcodone-acetaminophen (VICODIN) 5-500 mg per tablet Take 1 tablet by mouth every 6 hours as needed. ??? [DISCONTINUED] hydrOXYzine (ATARAX) 25 mg tablet Take 25 mg by mouth as needed. ??? methadone (DOLOPHINE) 5 mg tablet Take 5 mg by mouth every 4 hours as needed. 10/25/2012: taking twice daily ??? methylphenidate (METHYLIN ER) 10 mg ER tablet Take 10 mg by mouth every morning. ??? multivitamin (THERAGRAN) tablet Take 1 tablet by mouth daily (every 24 hours). ??? [DISCONTINUED] mupirocin (BACTROBAN) 2 % ointment Apply topically [...] tablet Take 50 mg by mouth nightly. ??? [DISCONTINUED] triamcinolone (KENALOG) 0.1 % cream Apply topically 2 times daily as needed for Itching. 454 g 1 No current facility-administered medications on file prior to visit. Review of Systems: HEENT and pulmonary systems were reviewed and found to be negative except as noted above OBJECTIVE: Vital Signs: Reviewed in flowsheet. Well-nourished female no acute distress. HEENT: TMs are clear, pharynx clear. Nasal mucosa swollen with dried drainage. Breath sounds were clear throughout. Pulse oximetry 98%.. ASSESSMENT: bronchitis PLAN: Zithromax Z althea,MucinexD and DelsymThe patient was discharged ambulatory and in stable condition. *SH~DNS~SOAP1 IC STRETCHER documented in this encounter Plan of Treatment Not on filedocumented as of this encounter Visit Diagnoses Diagnosis Acute bronchitis - Primary documented in this encounter
--- OUTSIDE RECORDS SUMMARY | 2021-11-12 14:45 | XMS_ITS | Encounter Summary ---
:1950 Author Organization [facility] Address [address] [place] [address] Care Team Providers Name Role Phone Unavailable Primary Care Provider Unavailable Reason for Visit Reason Comments ECZEMA Encounter Details Date Type Department Care Team Description 11/30/2012 Procedure Visit [facility] Nurse, Bravo Chao ECZEMA [address] [place] [address] Social History Tobacco Use Types Packs/Day Years Used Date Smoking Tobacco: Never Assessed Sex Assigned at Date Recorded Not on file documented as of this encounter Progress Notes Melony Lang RN - 11/30/2012 11:02 AM CDT Patient seen in clinic today for Phototherapy Treatment,UVB-Narrowband Rosales, for treatment of dermatitis. Last treatment session was discussed with patient, no adverse reaction noted. Discussed today's treatment with patient and dose was decreased due to missed treatments. See phototherapy log for details. documented in this encounter Plan of Treatment Not on filedocumented as of this encounter Visit Diagnoses Diagnosis Other atopic dermatitis and related cond itions - Primary documented in this encounter
--- OUTSIDE RECORDS SUMMARY | 2021-11-12 14:45 | XMS_ITS | Continuity of Care Document ---
:1950 Author Organization [facility] Address [address] [facility] [place] [address] Care Team Providers Name Role Phone [facility] Unavailable Unavailable Procedures Procedure Date INTERLAMINAR CRV OR THRC Advance Directives Directive Yes / No Effective Date File Name No Information Encounters Encounter Practice Location Reason(s) Diagnoses Date Provider Provide rs Description For Visit Copied on Encounter [facility] Information [facility] Provider: Surgery Surgery Surgery [facility] [place], [address] [facility] [address] [facility] [place], [place], [place], [id number], [place], [address]. [id number], tel:[phone] [place]. [phone] tel:[phone] Family History Family Member Type Diagnosis Age At Onset No Information Payers Payer name Insurance type Covered alliance party ID Authorization(s ) [facility] MedicareComplete Replacement [id number] Social History Type Description Quantity Date Captured Comments Sex Female Smoking Status No Information Chief Complaint And Reason For Visit No Information Reason For Referral Reason For Referral No Information Plan Of Treatment Date Type Action Status No Information History Of Present Illness Encounter Date Complaint History Of Present I llness No Information Functional Status Date Functional Assessment No Information Instructions Date Instruction Additional Informati on No Information Assessments Type Assessment Date No Information Patient Care Teams Name Effective Dates (start - stop) Status M embers No Information
--- OUTSIDE RECORDS SUMMARY | 2021-11-12 14:45 | XMS_ITS | Encounter Summary ---
:1950 Author Organization [facility] Address [address] [place] [address] Care Team Providers Name Role Phone Unavailable Primary Care Provider Unavailable Reason for Visit Reason Comments DERMATITIS Encounter Details Date Type Department Care Team Description 11/11/2012 Procedure Visit [facility], Bravo Chao DERMATITIS [address] [place] [address] Social History Tobacco Use Types Packs/Day Years Used Date Smoking Tobacco: Never Assessed Sex Assigned at Date Recorded Not on file documented as of this encounter Progress Notes Hira Link RN - 11/11/2012 12:06 PM CDT Patient seen in clinic today for Phototherapy Treatment,UVB-Narrowband vazquez , for treatment of dermatitis . Last treatment session was discussed with patient, no adverse reaction noted. Discussed today's treatment with patient and dose was increased per MD order. See phototherapy log for details. documented in this encounter Plan of Treatment Not on filedocumented as of this encounter Visit Diagnoses Diagnosis Other atopic dermatitis and related cond itions - Primary documented in this encounter
--- OUTSIDE RECORDS SUMMARY | 2021-11-12 14:45 | XMS_ITS | Encounter Summary ---
:1950 Author Organization [facility] Address [address] [place] [address] Care Team Providers Name Role Phone Unavailable Primary Care Provider Unavailable Reason for Visit Reason Comments Appt. Needed Referral rec via fax for Hyp erthyroidism from Dr. Idalmis Sloan at [facility] Encounter Details Date Type Department Care Team Description 2017 Notes/Orders [facility] 3800 Nurse, P3800 End Endocrinology [address] [place] [phone] Social History Tobacco Use Types Packs/Day Years Used Date Smoking Tobacco: Every Day Cigarettes 1 Sex Assigned at Date Recorded Not on file documented as of this encounter Progress Notes Killian Shah - 2017 1:20 PM CDT Referral rec via fax for Hyperthyroidism from Dr. Idalmis Sloan at [facility] documented in this encounter Plan of Treatment Not on filedocumented as of this encounter Visit Diagnoses Not on filedocumented in this encounter
--- OUTSIDE RECORDS SUMMARY | 2021-11-12 14:45 | XMS_ITS | Encounter Summary ---
:1950 Author Organization [facility] Address [address] [place] [address] Care Team Providers Name Role Phone Unavailable Primary Care Provider Unavailable Reason for Visit Reason Comments Appt. Scheduled Encounter Details Date Type Department Care Team Description 12/14/2012 Telephone [facility] 3800 Megan Son MD Appt. Scheduled Dermatology [address] [place] [address] [place] [address] [phone] Social History Tobacco Use Types Packs/Day Years Used Date Smoking Tobacco: Never Assessed Sex Assigned at Date Recorded Not on file documented as of this encounter Nursing Notes Hira Link RN - 12/23/2012 9:45 AM CDT LVM requesting call back if she still needed to be seen. Melony Luque RN - 12/14/2012 12:40 PM CDT Called patient to see how things were going and to offer her an appt. Patient would like to come in before appt scheduled in , but needs to check with her husbands schedule first. She will call [phone] to schedule this appt. Megan Son MD - 12/14/2012 8:48 AM CDT Please call - could add into clinic on Thu or Dec 24 Yvrose Whitney LPN - 12/14/2012 7:18 AM CDT Patient called and left detailed voicemail in phototherapy informing us to cancel all phototherapy appointments. Patient does not feel it is helping and plus recently got cellulitis of my leg. Patient does not want to come for phototherapy treatments anymore. Cancelled all appointments per patient request. FYI. documented in this encounter Plan of Treatment Not on filedocumented as of this encounter Visit Diagnoses Not on filedocumented in this encounter
--- OUTSIDE RECORDS SUMMARY | 2021-11-12 14:45 | XMS_ITS | Encounter Summary ---
:1950 Author Organization [facility] Address [address] [place] [address] Care Team Providers Name Role Phone Unavailable Primary Care Provider Unavailable Encounter Details Date Type Department Care Team Description 11/16/2017 Lab Visit [facility] Elevated parathyroid hormone ; [address] Subclinical hyperthyroidism; [place] [address] Hypocalcemia [phone] Social History Tobacco Use Types Packs/Day Years [...] on file documented as of this encounter Plan of Treatment Not on filedocumented as of this encounter Procedures Procedure Name Priority Date/Time Associated Diagnosis Comme nts TSH RECEPTOR ANTIBODY Routine 11/16/2017 3:17 Subclinical Res ults for PM CDT hyperthyroidism this procedu re are in the results section. TISSUE TRANSGLUTAMINASE Routine 11/16/2017 3:17 R esults for AB IGA PM CDT this procedure are in the results section. CELIAC DISEASE REFLEX Routine 11/16/2017 3:17 Hypocalcemia Res ults for WITH IGA PM CDT this procedure are in the results section. VITAMIN D 25-HYDROXY, Routine 11/16/2017 3:17 Elevated parathy roid Results for TOTAL PM CDT hormone this procedure are in the results section. T3, FREE Routine 11/16/2017 3:17 Subclinical Results for PM CDT hyperthyroidism this procedu re are in the results section. INTACT PTH Routine 11/16/2017 3:17 Elevated parathyroid Resu lts for PM CDT hormone this procedure are in the results section. COMP METABOLIC PANEL Routine 11/16/2017 3:17 Elevated parathyr oid Results for PM CDT hormone this procedure are in the results section. TSH, SENSITIVE Routine 11/16/2017 3:17 Subclinical Results fo r PM CDT hyperthyroidism this procedu re are in the results section. FREE T4 Routine 11/16/2017 3:17 Subclinical Results for PM CDT hyperthyroidism this procedu re are in the results section. PHOSPHORUS Routine 11/16/2017 3:17 Elevated parathyroid Resu lts for PM CDT hormone this procedure are in the results section. documented in this encounter Results Tissue Transglutaminase Ab IgA (11/16/2017 3:17 PM CDT) Patholo gist Method Time Signature TISSUE 0.4 0.0 - 6.9 PN SOFT TRANSGLUTAMINASE AB IU/L IGA Comment: Reference Range: <7 Negative, 7 - 10 Equivocal, >10 Posit sung Specimen Anatomical Collection Method Collection Time Receive d Time (Source) Location / / Volume Laterality 11/16/2017 3:17 PM 8 8:53 CDT PM CDT Narrative PN SOFT - 11/18/2017 12:30 PM CDT [place] [address] CLIA number [id number] Anirudh Cagle MD LAB_1 Performing Organization Address City/State/ZIP Code Phon e Number PN SOFT [address] [place] [address] Celiac Disease Reflex Panel IgA (11/16/2017 3:17 PM CDT) athologist Signature IGA 198 69 - 517 PN SOFT mg/dL Specimen Anatomical Collection Method Collection Time Receive d Time (Source) Location / / Volume Laterality 11/16/2017 3:17 PM 8 8:54 CDT PM CDT Narrative PN SOFT - 11/16/2017 9:14 PM CDT Performed at [address] [place] [address] CLIA number [id number] Anirudh Cagle MD LAB_1 Performing Organization Address City/[facility]/ZIP Code Phon e Number PN SOFT [address] [place] [address] Tsh Receptor Antibody (11/16/2017 3:17 PM CDT) athologist Signature TSH Receptor <0.90 <=1.75 IU/L PN SOFT Antibody Comment: Performed by [facility], [address] [place] [address] [email or web address], Papito Palomares MD - Lab . Director Specimen Anatomical Collection Method Collection Time Receive d Time (Source) Location / / Volume Laterality 11/16/2017 3:17 PM 8 8:43 CDT PM CDT Narrative PN SOFT - 11/18/2017 8:02 PM CDT Performed at [facility] [address] [place] [address] CLIA number [id number] Anirudh Cagle MD LAB_1 Performing Organization Address [facility] Code Phon e Number PN SOFT [address] [place] [address] T3 - Triiodothyronine, Free (FRT3) (11/16/2017 3:17 PM CDT) athologist Signature Triiodothyronin 3.2 1.7 - 3.7 PN SOFT e, Free pg/mL Specimen Anatomical Collection Method Collection Time Receive d Time (Source) Location / / Volume Laterality 11/16/2017 3:17 PM 8 6:30 CDT PM CDT Narrative PN SOFT - 11/16/2017 7:10 PM CDT Performed at [place] [address] [place] [address] CLIA number [id number] Anirudh Cagle MD LAB_1 Performing Organization Address City/[facility]/ZIP Code Phon e Number PN SOFT [address] [place] [address] Free T4 (11/16/2017 3:17 PM CDT) athologist Signature Thyroxine, Free 1.1 0.7 - 1.5 PN SOFT ng/dL Specimen Anatomical Collection Method Collection Time Receive d Time (Source) Location / / Volume Laterality 11/16/2017 3:17 PM 8 6:30 CDT PM CDT Narrative PN SOFT - 11/16/2017 7:10 PM CDT Performed at [address] [address] CLIA number [id number] Anirudh Cagle MD LAB_1 Performing Organization Address [facility] Phon e Number PN SOFT [address] [place] [address] TSH (11/16/2017 3:17 PM CDT) athologist Signature Thyroid 0.38 0.30 - PN SOFT Stimulating 4.50 Hormone uIU/mL Specimen Anatomical Collection Method Collection Time Receive d Time (Source) Location / / Volume Laterality 11/16/2017 3:17 PM 8 6:30 CDT PM CDT Narrative PN SOFT - 11/16/2017 7:10 PM CDT Performed at [address] [address] CLIA number [id number] Anirudh Cagle MD LAB_1 Performing Organization Address [facility] Phon e Number PN SOFT [address] [place] [address] Vitamin D (In house) (11/16/2017 3:17 PM CDT) athologist Signature Vitamin D 25 Oh 38 20 - 80 PN SOFT ng/mL Comment: Deficiency = <20 Adequate ??= 20-29 Preferred = 30-50 Uncertain safety = 51-80 High = >80 Specimen Anatomical Collection Method Collection Time Receive d Time (Source) Location / / Volume Laterality 11/16/2017 3:17 PM 8 8:53 CDT PM CDT Narrative PN SOFT - 11/16/2017 9:29 PM CDT Performed at [address] [place] [address] CLIA number [id number] Anirudh Cagle MD LAB_1 Performing Organization Address [facility] Phon e Number PN SOFT [address] [place] [address] (ABNORMAL) PTH - Parathyroid Hormone Intact (11/16/2017 3:17 PM CDT) P athologist Signature PTH 159 (H) 10 - 100 PN SOFT pg/mL Specimen Anatomical Collection Method Collection Time Receive d Time (Source) Location / / Volume Laterality 11/16/2017 3:17 PM 8 8:43 CDT PM CDT Narrative PN SOFT - 11/16/2017 9:51 PM CDT Performed at [address] [address] CLIA number [id number] Anirudh Cagle MD LAB_1 Performing Organization Address [facility] Phon e Number PN SOFT [address] [place] [address] Phosphorus (11/16/2017 3:17 PM CDT) P athologist Signature Phosphorus Serum 3.2 2.3 - 4.7 PN SOFT mg/dL Specimen Anatomical Collection Method Collection Time Receive d Time (Source) Location / / Volume Laterality 11/16/2017 3:17 PM 8 3:16 CDT PM CDT Narrative PN SOFT - 11/16/2017 4:36 PM CDT Performed at [facility], [facility] [address] [place] [address] CLIA number [id number] Anirudh Cagle MD LAB_1 Performing Organization Address [facility] Phon e Number PN SOFT [address] [place] [address] (ABNORMAL) CMP - Comprehensive Metabolic Panel (11/16/2017 3:17 PM CDT) Patholo gist Method Time Signature Aspartate 48 (H) 10 - 40 PN SOFT Aminotransferase U/L Lab Glucose 92 70 - 100 PN SOFT mg/dL Comment: The stated glucose range is for the fast ing state. Non-fasting glucose range is 70-180 mg/d L Bilirubin Total 0.6 0.2 - 1.2 mg/dL PN SOFT Calcium 9.8 8.4 - 10.4 mg/dL PN SOFT Sodium 139 136 - 145 mmol/L PN SOFT Potassium 3.1 (L) 3.5 - 5.2 mmol/L PN SOFT Blood Urea Nitrogen <10 9 - 26 mg/dL PN SOFT Albumin 4.0 3.4 - 5.0 g/dL PN SOFT Chloride 98 98 - 109 mmol/L PN SOFT Alk Phos 70 40 - 150 U/L PN SOFT Protein Total, Serum 7.3 6.4 - 8.3 g/dL PN S OFT Creatinine Serum 0.80 0.55 - 1.02 mg/dL PN SO FT Est GFR Am >60 >60 mL/min/1.73m2 PN SOFT Est GFR Non-Afr Am >60 >60 mL/min/1.73m2 PN SOFT Comment: Normal>60, moderate decrease 30 - 59, se ana maria decrease 15 - 29, renal failure <15 mL/min/1.73 m2 NOTE: ??Choose the eGFR result above cachorro ropriate for the race of the patient. Alanine Aminotransferase 59 (H) 9 - 55 U/L PN S OFT CO2 30 22 - 31 mmol/L PN SOFT Specimen Anatomical Collection Method Collection Time Receive d Time (Source) Location / / Volume Laterality 11/16/2017 3:17 PM 8 3:16 CDT PM CDT Narrative PN SOFT - 11/16/2017 4:36 PM CDT Performed at [facility], [address] [place] [id number] CLIA number [id number] Anirudh Cagle MD LAB_1 Performing Organization Address City/State/ZIP Code Phon e Number PN SOFT [address] [place], [place] [id number] documented in this encounter Visit Diagnoses Diagnosis Elevated parathyroid hormone (HRC) Unspecified endocrine disorder Subclinical hyperthyroidism (HRC) Thyrotoxicosis without mention of goiter or other cause, without mention of thyrotoxic crisis or storm Hypocalcemia documented in this encounter
--- OUTSIDE RECORDS SUMMARY | 2021-11-12 14:45 | XMS_ITS | Encounter Summary ---
:1950 Author Organization [facility] Address [address] [place] [address] Care Team Providers Name Role Phone Unavailable Primary Care Provider Unavailable Reason for Visit Reason Comments Rash SWELLING, LEG Encounter Details Date Type Department Care Team Description 11/27/2012 Nurse Triage [facility] 380 Found, No Pcp , Rash; SWELLING, LEG Dermatology [address] [facility] [address] [place] [address] [address] [place] [address] Social History Tobacco Use Types Packs/Day Years Used Date Smoking Tobacco: Never Assessed Sex Assigned at Date Recorded Not on file documented as of this encounter Nursing Notes Vicki Andrew - 11/27/2012 2:28 PM CDT Protocol: LEG SWELLING AND AUSOV-SOZLQ-MS Affirmative: [1] Thigh, calf, or ankle swelling AND [2] bilateral AND [3] 1 side is more swollen Disposition of See Physician Within 4 Hours (Or PCP Triage) suggested. Returned patient call regarding swelling and rash in her lower legs. She explains that she is already being treated by Dr. Son for a rash but has been on vacation. She is on a long car trip at the time of our conversation and will not be home until late tonight. States that her lower legs are swollen with spotty red rash. The swelling goes about 1/[address] up each calf, slightly relieved by elevation but returns quickly, pits 1/4-1/2 and takes greater than 3 seconds to rebound, left is swollen more than right. The swelling started a few days ago and makes it somewhat harder to walk as her legs sometimes hurt. Denies calf or thigh pain at this time and states that they have been stopping frequently on their trip to get out of car and move around. Denies trouble breathing, changes in LOC, fever. The rash is red and warm to touch, not painful. Advised x2 of reasons for disposition and possible complications and recommended that they stop and find UC or ER so this can be evaluated within 4 hours.States understanding of disposition and possible complications but will have to talk to about stopping to seek care as he needs to get back to work tomorrow. Mercedes Irwin - 11/27/2012 12:12 PM CDT The patient called requesting a call from a nurse regarding rash. Please call and advise. documented in this encounter Plan of Treatment Not on filedocumented as of this encounter Visit Diagnoses Not on filedocumented in this encounter
--- OUTSIDE RECORDS SUMMARY | 2021-11-12 14:45 | XMS_ITS | Encounter Summary ---
:1950 Author Organization [facility] Address [address] [place] [address] Care Team Providers Name Role Phone Unavailable Primary Care Provider Unavailable Reason for Visit Reason Comments Follow-up Encounter Details Date Type Department Care Team Description 10/25/2012 Office Visit [facility] 3800 Megan Son MD Unspecified pruritic Dermatology [address] [place] disorder (Primary Dx) [address] [place] [id number] [phone] Social History Tobacco Use Types Packs/Day Years Used Date Smoking Tobacco: Never Assessed Sex Assigned at Date Recorded Not on file documented as of this encounter Progress Notes Megan Son MD - 10/25/2012 8:32 PM CDT S: Krys Mosher is a 62 y.o. female here for follow up of rash, ongoing for several months. She has stopped using clobetasol, as it nash and causes skin to bleed per pt. Using Calamine, and OTC HC ointment. also had a course of antibiotics which didn't help. 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 She has completed a course of Prednisone, starting 09/22/12 which she states didn't help. Current Outpatient Prescriptions on File Prior to Visit Medication Sig Note Dispense Refill ??? albuterol HFA 90 mcg/actuation inhaler Inhale 2 puffs every 6 hours as needed. ??? alendronate (FOSAMAX) 70 mg tablet Take 70 mg by mouth every 7 days. Take 30 minutes before first jnan-ogdvd-myycloqpue. Avoid lying down for 30 minutes. ??? Calcium-Cholecalciferol, D3, 400-133.3 mg-unit Tab Take by mouth. ??? clobetasol (TEMOVATE) 0.05 % cream Apply topically 2 times daily. apply to itchy areas twice daily 60 g 1 ??? conjugated estrogens (PREMARIN) vaginal cream Place vaginally daily (every 24 hours). ??? DISCONTD: doxycycline (VIBRAMYCIN) 50 mg capsule Take 1 capsule by mouth 2 times daily. avoid dairy when taking medication and wear SPF. 14 capsule 0 ??? fluticasone (FLONASE) 50 mcg/actuation nasal spray [...] mouth every 6 hours as needed. ??? hydrOXYzine (ATARAX) 25 mg tablet Take 25 [...] mEq by mouth 2 times daily. ??? DISCONTD: predniSONE (DELTASONE) 5 mg tablet Take 1 tablet by mouth daily (every 24 hours). Takewith food. Take 20mg x 7days 10mg x 7days then 5mg x 7days. Then stop. 49 tablet 0 ??? senna (SENOKOT) 8.6 mg tablet Take 1 tablet by mouth daily (every 24 hours). ??? simvastatin (ZOCOR) 80 mg tablet Take 80 mg by mouth nightly. ??? traZODone (DESYREL) 50 mg tablet Take 50 mg by mouth nightly. No current facility-administered medications on file prior to visit. Allergies Allergen Reactions ??? Morphine Respiratory Arrest ??? Augmentin (Amoxicillin-Pot Clavulanate) Diarrhea ??? Lorazepam Anxiety ??? Quinolones Anxiety ??? Sulfa (Sulfonamide Antibiotics) Hives O: Healthy female in NAD. Alert and oriented x 3. Exam includes: Pertinent findings: 1) multiple excoriated papules on forearms, shins, hands, ankles. Spares face, Back looks clear today. Has 1 excorieated papules on her abdomen. No active signs of infection. No primary lesions seen today. A/P: Prurigo nodules, with possible underlying component of atopic dermatitis, -Suggested Atarax to relieve itching--pt states this causes drowsiness; instead will use Savanah OTCin am, Claritin at lunch. -Discussed UVB therapy, available now in [place] twice a week. Will start this. Warned of risk including increased risk for skin cancer. -D/c clobetasol, as this causes burning, suggested to try triamcinolone cream BID PRN instead -Has had normal labs although lymphocyte count was a little high so will recheck this to be sure it has normalized. -Follow up 2-3 months, sooner if needed. Hira Luther, am serving as a scribe to document services personally performed by Megan Son MD at this visit, based upon the providers statements to me. All documentation has been reviewed by the aforementioned doctor prior to being entered into the official medical record. Entered on 10/25/2012t 11:42 AM. I, Megan Son, attest that the above named individual is acting in scribe capacity, has observed myperformance of the services performed at this visit and has documented them in accordance with my direction. Entered on 10/25/2012 at 8:29 PM. documented in this encounter Plan of Treatment Not on filedocumented as of this encounter Visit Diagnoses Diagnosis Unspecified pruritic disorder - Primary documented in this encounter
--- OUTSIDE RECORDS SUMMARY | 2021-11-12 14:45 | XMS_ITS | Encounter Summary ---
:1950 Author Organization [facility] Address [address] [place] [address] Care Team Providers Name Role Phone Unavailable Primary Care Provider Unavailable Reason for Visit Reason Comments Lab Questions Encounter Details Date Type Department Care Team Description 09/24/2012 Telephone [facility] 3800 Megan Son MD Lab Questions Dermatology [address] [facility] [place] [address] [place], [place] [address] [phone] Social History Tobacco Use Types Packs/Day Years Used Date Smoking Tobacco: Never Assessed Sex Assigned at Date Recorded Not on file documented as of this encounter Nursing Notes Megan Son MD - 10/04/2012 3:36 PM CDT Called, left message. RCB. Melony Lang RN - 09/24/2012 11:09 AM CDT Patient was informed of her lab results as per your instructions. Melony Lang RN - 09/24/2012 11:05 AM CDT Name of caller: Name of clinician: Date of Last Visit: Date of Future Visit: Message: Patient needs the future labs order put in. Request: Call back number: Clinician returning to office: Pharmacy reviewed in meds and orders. documented in this encounter Plan of Treatment Not on filedocumented as of this encounter Visit Diagnoses Not on filedocumented in this encounter
--- OUTSIDE RECORDS SUMMARY | 2021-11-12 14:45 | XMS_ITS | Encounter Summary ---
:1950 Author Organization [facility] Address [address] [place] [address] Care Team Providers Name Role Phone Unavailable Primary Care Provider Unavailable Reason for Visit Reason Comments CONSULT Thyroid Encounter Details Date Type Department Care Team Description 11/13/2017 Initial Consult [facility] [address] Anirudh Cagle clinical hyperthyroidism (Primary Dx); Endocrinology MD Jose Elevated parathyroid hormone; [address] [place] [address] [place] [facility] [address] [facility] [place] [address] [place] [address] [phone] Social History Tobacco Use Types Packs/Day Years [...] Pulse 82 11/13/2017 2:06 PM CDT Temperature - - Respiratory Rate - - Oxygen Saturation - - Inhaled Oxygen Concentration - - Weight 73.4 kg (161 lb 12.8 oz) 11/13/2017 2:06 PM CDT Height - - Body Mass Index - - documented in this encounter Progress Notes Anirudh Cagle MD - 11/13/2017 12:00 PM CDT NAME: KRYS MOSHER MR#: [id number] CSN: [id number] AUTHENTICATING CLINICIAN: Anirudh Cagle MD CONFIRM #: [id number] LOC: 432 CLINIC CONSULTATION DATE OF CONSULTATION: 11/13/2017 : 1950 REQUESTING PHYSICIAN: CHIEF COMPLAINT: Consult requested by Dr. Sloan for evaluation of hyperthyroidism and elevated PTH. HPI: Krys is a 67-year-old woman. Review of her outside records indicates past medical history of priormedical and surgical history of Mani fundoplication. 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 She has degenerative scoliosis. It sounds like she had osteopenia but not osteoporosis. She believes she took alendronate for probably a decade or more, discontinuing that about a year ago. She has acid reflux. I do not have all the old labs, but clinic notes indicate that she had a history of a low TSH persisting for several months. She also had hypocalcemia in May of this year with an ionized calcium of 1.09. I do not have the actual lab results. She then had blood work checked on November 03, 2017, witha slightly low TSH of 0.048 (0.27-4.2), normal free T4 of 1.38 (0.7-1.85). Her intact PTH was 130 (15-65). I do not have any actual calcium results. She then had a thyroid ultrasound on September 25, 2016. The report shows homogeneous echotexture with a small cystic 5 x 3 x 5 mm nodule in the right lobe. The isthmus and the left lobe were normal. They felt that the Doppler demonstrated a hypovascular thyroid gland. She denies anxiety, palpitations, and tremor. She has chronic fatigue and chronic heat intolerance. She denies difficulty swallowing or hoarse voice. She did fracture 3 toes a couple of years ago, tripping on the recliner, but denies any other fractures. She takes calcium carbonate 600 mg twice daily.She takes Nexium for acid reflux. She denies kidney stone. She has never had bariatric surgery. REVIEW OF SYSTEMS: She does have asthma, seasonal allergies, and she reports a Charcot foot which is chronically painful due to a history of peripheral neuropathy, but she does not have diabetes. Remainder of a complete review of systems is negative. SOCIAL HISTORY: She is . She quit smoking 2 years ago. Two alcoholic drinks per week. FAMILY HISTORY: Mom with osteoporosis, including hip fracture. Sister with history of thyroid surgery due to hyperthyroidism. MEDICATIONS: 1.Nexium. 2.Albuterol inhaler. 3.Calcium carbonate 600 mg twice daily with vitamin D. 4.Nexium 20 mg daily. 5.Flonase nasal spray. 6.Methadone 5 mg b.i.d. for chronic pain. 7.Multivitamin. 8.Ranitidine. 9.Simvastatin 80 mg daily. 10.Trazodone. PHYSICAL EXAM: VITAL SIGNS: Weight is 161.8 pounds, blood pressure 109/65, pulse 82. GENERAL APPEARANCE: No apparent distress. She is obese. HEENT: Normal. Eyes normal. No stare or lid lag. NECK: Thyroid is normal to palpation. CARDIOVASCULAR: Heart is regular. No rubs, murmurs, or gallops. RESPIRATORY: Lungs clear to auscultation bilaterally. PSYCHIATRIC: Appropriate affect. MUSCULOSKELETAL: She does have some scoliosis, but spine is nontender to percussion. IMPRESSION: Krys is a 67-year-old woman with subclinical hyperthyroidism and elevated PTH. Ionized calcium earlier this year was reported as being low. Her thyroid ultrasound was pretty unremarkable other than abenign-appearing cyst. I do not know the exact duration of the low TSH. In the setting of a hypovascular gland, that would suggest a silent thyroiditis which is self-resolving, but Graves disease is also in the possibility, although it would seem to be mild at this point. Regarding the elevated PTH, total calcium corrected for albumin is going to have a lower coefficientvariation than an ionized calcium, and so can be a little bit more accurate of a test, but, presuming that her calcium truly was low with an elevated PTH, this would suggest vitamin D deficiency or malabsorption of calcium; in other words, secondary hyperparathyroidism. She does not have any history of bariatric surgery, although she does have a history of a Mani. PLAN: 1.Check uptake and scan. 2.Repeat TSH, free T4, free T3, TSH receptor antibody, comprehensive metabolic panel, phosphorus, PTH, and vitamin D. 3.Followup to be determined based on the results of the above testing. Thank you for this consultation. CC: DR. ISRAEL SLOAN [facility] [address] [place] [address] DMT:MEDQ C: CONFIRM #: [id number] documented in this encounter Plan of Treatment Not on filedocumented as of this encounter Results Celiac Disease Reflex Panel IgA (11/16/2017 3:17 PM CDT) athologist Signature IGA 198 69 - 517 PN SOFT mg/dL Specimen Anatomical Collection Method Collection Time Receive d Time (Source) Location / / Volume Laterality 11/16/2017 3:17 PM 8 8:54 CDT PM CDT Narrative PN SOFT - 11/16/2017 9:14 PM CDT Performed at [address] [address] CLIA number [id number] Anirudh Cagle MD LAB_1 Performing Organization Address City/[facility] Code Phon e Number PN SOFT [address] [place] [address] [phone] Tsh Receptor Antibody (11/16/2017 3:17 PM CDT) athologist Signature TSH Receptor <0.90 <=1.75 IU/L PN SOFT Antibody Comment: Performed by [facility], [address] [place] [address] [email or web address] Papito Palomares MD - Lab . Director Specimen Anatomical Collection Method Collection Time Receive d Time (Source) Location / / Volume Laterality 11/16/2017 3:17 PM 8 8:43 CDT PM CDT Narrative PN SOFT - 11/18/2017 8:02 PM CDT Performed at [facility] [address] [place] [address] CLIA number [id number] Anirudh Cagle MD LAB_1 Performing Organization Address City/[facility] Phon e Number PN SOFT [address] [place] [address] T3 - Triiodothyronine, Free (FRT3) (11/16/2017 3:17 PM CDT) athologist Signature Triiodothyronin 3.2 1.7 - 3.7 PN SOFT e, Free pg/mL Specimen Anatomical Collection Method Collection Time Receive d Time (Source) Location / / Volume Laterality 11/16/2017 3:17 PM 8 6:30 CDT PM CDT Narrative PN SOFT - 11/16/2017 7:10 PM CDT Performed at [address] [address] CLIA number [id number] Anirudh Cagle MD LAB_1 Performing Organization Address [facility] Phon e Number PN SOFT [address] [place] [address] Free T4 (11/16/2017 3:17 PM CDT) athologist Signature Thyroxine, Free 1.1 0.7 - 1.5 PN SOFT ng/dL Specimen Anatomical Collection Method Collection Time Receive d Time (Source) Location / / Volume Laterality 11/16/2017 3:17 PM 8 6:30 CDT PM CDT Narrative PN SOFT - 11/16/2017 7:10 PM CDT Performed at [address] [address] CLIA number [id number] Anirudh Cagle MD LAB_1 Performing Organization Address City/[facility] Phon e Number PN SOFT [address] [place] [address] TSH (11/16/2017 3:17 PM CDT) athologist Signature Thyroid 0.38 0.30 - PN SOFT Stimulating 4.50 Hormone uIU/mL Specimen Anatomical Collection Method Collection Time Receive d Time (Source) Location / / Volume Laterality 11/16/2017 3:17 PM 8 6:30 CDT PM CDT Narrative PN SOFT - 11/16/2017 7:10 PM CDT Performed at [facility], [facility] [place] [facility] [place] [address] CLIA number [id number] Anirudh Cagle MD LAB_1 Performing Organization Address [facility] Phon e Number PN SOFT [address] [place] [address] Vitamin D (In house) (11/16/2017 3:17 PM [...] - 11/16/2017 9:29 PM CDT Performed at [address] [address] CLIA number [id number] Anirudh Cagle MD LAB_1 Performing Organization Address [facility] Phon e Number PN SOFT [address] [place] [address] (ABNORMAL) PTH - Parathyroid Hormone Intact (11/16/2017 3:17 PM CDT) athologist Signature PTH 159 (H) 10 - 100 PN SOFT pg/mL Specimen Anatomical Collection Method Collection Time Receive d Time (Source) Location / / Volume Laterality 11/16/2017 3:17 PM 8 8:43 CDT PM CDT Narrative PN SOFT - 11/16/2017 9:51 PM CDT Performed at [address] [address] CLIA number [id number] Anirudh Cagle MD LAB_1 Performing Organization Address [facility] Phon e Number PN SOFT [address] [place] [address] Phosphorus (11/16/2017 3:17 PM CDT) P athologist Signature Phosphorus Serum 3.2 2.3 - 4.7 PN SOFT mg/dL Specimen Anatomical Collection Method Collection Time Receive d Time (Source) Location / / Volume Laterality 11/16/2017 3:17 PM 8 3:16 CDT PM CDT Narrative PN SOFT - 11/16/2017 4:36 PM CDT Performed at [facility], [address] [facility], [place] [address] CLIA number [id number] Anirudh Cagle MD LAB_1 Performing Organization Address City/State/ZIP Code Phon e Number PN SOFT [address] [place] [address] [phone] (ABNORMAL) CMP - Comprehensive Metabolic Panel (11/16/2017 [...] - 11/16/2017 4:36 PM CDT Performed at [facility], [address] [place] [address] CLIA number [id number] Anirudh Cagle MD LAB_1 Performing Organization Address City/State/ZIP Code Phon e Number PN SOFT [address] [place] [address] documented in this encounter Visit Diagnoses Diagnosis Subclinical hyperthyroidism (HRC) - Prim jordi Thyrotoxicosis without mention of goiter or other cause, without mention of thyrotoxic crisis or storm Elevated parathyroid hormone (HRC) Unspecified endocrine disorder Hypocalcemia Elevated parathyroid hormone (HRC) Unspecified endocrine disorder Subclinical hyperthyroidism (HRC) Thyrotoxicosis without mention of goiter or other cause, without mention of thyrotoxic crisis or storm Hypocalcemia documented in this encounter
--- OUTSIDE RECORDS SUMMARY | 2021-11-12 14:45 | XMS_ITS | Encounter Summary ---
:1950 Author Organization [facility] Address [address] [place] [address] Care Team Providers Name Role Phone Unavailable Primary Care Provider Unavailable Reason for Visit Reason Comments DERMATITIS Encounter Details Date Type Department Care Team Description 12/02/2012 Procedure Visit [place] [facility], Bravo Chao DERMATITIS [address] [place] [address] Social History Tobacco Use Types Packs/Day Years Used Date Smoking Tobacco: Never Assessed Sex Assigned at Date Recorded Not on file documented as of this encounter Progress Notes Kathryn Fernando RN - 12/02/2012 10:41 AM CDT Patient seen in clinic today [...]
--- OUTSIDE RECORDS SUMMARY | 2021-11-12 14:45 | XMS_ITS | Encounter Summary ---
:1950 Author Organization [facility] Address [address] [place] [address] Care Team Providers Name Role Phone Unavailable Primary Care Provider Unavailable Encounter Details Date Type Department Care Team Description 09/28/2012 Notes/Orders [facility] [address] Megan Son MD Rash and other Dermatology [address] nonspecific skin [address] eruption (Primary [place]x) [place] [id number] [phone] Social History Tobacco Use Types Packs/Day Years Used Date Smoking Tobacco: Never Assessed Sex Assigned at Date Recorded Not on file documented as of this encounter Plan of Treatment Not on filedocumented as of this encounter Visit Diagnoses Diagnosis Rash and other nonspecific skin eruption - Primary documented in this encounter
--- OUTSIDE RECORDS SUMMARY | 2021-11-12 14:45 | XMS_ITS | Encounter Summary ---
:1950 Author Organization [facility] Address [address] [place] [address] Care Team Providers Name Role Phone Unavailable Primary Care Provider Unavailable Encounter Details Date Type Department Care Team Description 10/12/2012 Notes/Orders [facility] [address] Megan Son MD Dermatology [address] [place] [address] [place], [place] [address] [phone] Social History Tobacco Use Types Packs/Day Years Used Date Smoking Tobacco: Never Assessed Sex Assigned at Date Recorded Not on file documented as of this encounter Plan of Treatment Not on filedocumented as of this encounter Visit Diagnoses Not on filedocumented in this encounter
--- OUTSIDE RECORDS SUMMARY | 2021-11-12 14:45 | XMS_ITS | Encounter Summary ---
:1950 Author Organization [facility] Address [address] [place] [address] Care Team Providers Name Role Phone Unavailable Primary Care Provider Unavailable Reason for Visit Reason Comments Rash Encounter Details Date Type Department Care Team Description 09/14/2012 [place] [facility] Cheri Qureshi (Primary Dx) [address] [place] [address] [place], [place] [phone] (Wo rk) Social History Tobacco Use Types Packs/Day Years Used Date Smoking Tobacco: Never Assessed Sex Assigned at Date Recorded Not on file documented as of this encounter Last Filed Vital Signs Vital Sign Reading Time Taken Comments Blood Pressure 126/78 09/14/2012 4:18 PM CDT Pulse 80 09/14/2012 4:18 PM CDT Temperature 35.8 ??C (96.4 ??F) 09/14/2012 4:18 PM CDT Respiratory Rate - - Oxygen Saturation - - Inhaled Oxygen Concentration - - Weight 65.8 kg (145 lb) 09/14/2012 4:18 PM CDT Height - - Body Mass Index - - documented in this encounter Progress Notes Titus Wright MBChB - 09/25/2012 11:44 PM CDT Subjective: The patient is a 62-year-old female who presents to the clinic today with concerns about generalized skin rash which she describes as red and itchy. This has been ongoing for the past 5 weeks. Patientstates the rash is all over. Does not recall any exposure to similar rash or new detergents medications soaps or other environmental exposures. 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 PMH: There is no problem list on file for this patient. , No past surgical history on file. Medications: Current Outpatient Prescriptions Medication Sig Dispense Refill ??? albuterol HFA 90 mcg/actuation inhaler Inhale 2 puffs every 6 hours as needed. ??? alendronate (FOSAMAX) 70 mg tablet Take 70 mg by mouth every 7 days. Take 30 minutes before first lgko-tnies-guoppigacq. Avoid lying down for 30 minutes. ??? [...] by mouth nightly. No current facility-administered medications for this visit. Allergies: Allergies Allergen Reactions ??? Morphine Respiratory Arrest ??? Augmentin (Amoxicillin-Pot Clavulanate) Diarrhea ??? Lorazepam Anxiety ??? Quinolones Anxiety ??? Sulfa (Sulfonamide Antibiotics) Hives Social Hx: History Social History ??? Marital Status: Spouse [...] History Narrative ??? No narrative on file Family Hx: No family history on file. Review of Systems A comprehensive review of systems was negative. Objective: Physical Exam: BP 126/78 Pulse 80 Temp(Src) 96.4 ??F (35.8 ??C) (Oral) Wt 145 lb (65.772 kg) pulse oximetry is normal unless otherwise stated There is diffuse erythematous rash mainly on the trunk with a few lesions on the extremities as wellas multiple shallow ulcerations all over. No discharge noted. A few crusted lesions noted. Assessment: Skin rash, possible folliculitis Plan: Topical Bactroban Recommend Benadryl q.h.s. p.r.n. Followup the clinic p.r.n. Dermatology referral indicated if no improvement Questions and concerns addressed documented in this encounter Plan of Treatment Not on filedocumented as of this encounter Visit Diagnoses Diagnosis Rash/skin eruption - Primary Rash and other nonspecific skin eruption documented in this encounter
--- OUTSIDE RECORDS SUMMARY | 2021-11-12 14:46 | XMS_ITS | Continuity of Care Document ---
:1950 Author Organization [facility] Address [address] [place] [address] Phone Care Team Providers Name Role Phone Mercy Vasquez DNP Unavailable Unavailable Allergies, Adverse Reactions, Alerts Substance Reaction Status Criticality morphine Active No Information Sulfa (Sulfonamide Antibiotics) hives Active No Information lorazepam Loopy Active No Information POTASSIUM CLAVULANATE hives Active No Informa tion Medications Medication Instructions Dosage Effective Dates Status Comment s (start - stop) methadone 5 mg take 1 tablet (5MG) - Active tablet by oral route BID, max of 2 tabs/day for chronic pain Senna-S 8.6 mg-50 take 1 - 2 tablet 1-2 tablet - Active mg tablet by ORAL route 2 times every day Miralax 17 gram take 1 packet by - Active oral powder oral route every packet day mixed with 8 oz. water, juice, soda, coffee or tea trazodone 50 mg take 1 tablet by - Active tablet ORAL route every bedtime after meals as needed Lasix 20 mg take 1 tablet by 20 MG - Active tablet oral route every day Nexium 20 mg take 1 capsule by 20 MG - Active capsule,delayed oral route every release day at least 1 hour before a meal swallowing whole. Do not crush or chew granules. ADVAIR DISKUS inhale 1 puff by Not Available - Active (unknown inhalation route 2 strength) times every day in the morning and evening approximately 12 hours apart potassium take 4 capsule by 40 MEQ - Active chloride ER 10 oral route every mEq day with food capsule,extended release Calcium 600 + take 1 tablet by - Active D(3) 600 mg oral route 2 times (1,500 mg)-400 every day unit tablet Claritin 10 mg take 1 tablet by 10 MG - Active tablet oral route every day as needed ProAir RespiClick inhale 2 puff by 180 MCG - Active 90 mcg/actuation inhalation route 4 breath activated times every day as needed Multiple Vitamin, Take one tablet by - Active Womens tablet oral route daily simvastatin 5 mg take 0.5 - 1 tablet - Active tablet by oral route every day in the evening methadone 5 mg take 1 tablet (5MG) - No Longer tablet by oral route BID, Active max of 2 tabs/day for chronic pain hydrocodone 5 take 1 - 2 tablet - No Longer mg-acetaminophen by ORAL route every Active 325 mg tablet 4 hours prn, max 4 per day for chronic pain Procedures Procedure Date Foll-up eval q3mo opiod tx OFFICE/OUTPATIENT VISIT, EST PT EVAL MOD COMPLEX 30 MIN THERAPEUTIC EXERCISES Foll-up eval q3mo opiod tx OFFICE/OUTPATIENT VISIT, EST Foll-up eval q3mo opiod tx OFFICE/OUTPATIENT VISIT, EST Foll-up eval q3mo opiod tx OFFICE/OUTPATIENT VISIT, EST INTERLAMINAR CRV OR THRC Foll-up eval q3mo opiod tx OFFICE/OUTPATIENT VISIT, EST Foll-up eval q3mo opiod tx OFFICE/OUTPATIENT VISIT, EST OFFICE/OUTPATIENT VISIT, EST Foll-up eval q3mo opiod tx OFFICE/OUTPATIENT VISIT, EST Foll-up eval q3mo opiod tx OFFICE/OUTPATIENT VISIT, EST Foll-up eval q3mo opiod tx OFFICE/OUTPATIENT VISIT, EST Foll-up eval q3mo opiod tx OFFICE/OUTPATIENT VISIT, EST Foll-up eval q3mo opiod tx OFFICE/OUTPATIENT VISIT, EST Foll-up eval q3mo opiod tx OFFICE/OUTPATIENT VISIT, EST Foll-up eval q3mo opiod tx OFFICE/OUTPATIENT VISIT, EST Foll-up eval q3mo opiod tx OFFICE/OUTPATIENT VISIT, EST Foll-up eval q3mo opiod tx ROUTINE BLOOD DRAW OFFICE/OUTPATIENT VISIT, EST Foll-up eval q3mo opiod tx Foll-up eval q3mo opiod tx OFFICE VISIT, EST TELEMEDICINE Foll-up eval q3mo opiod tx OFFICE VISIT, EST TELEMEDICINE OFFICE/OUTPATIENT VISIT, EST Foll-up eval q3mo opiod tx Foll-up eval q3mo opiod tx OFFICE/OUTPATIENT VISIT, EST Foll-up eval q3mo opiod tx OFFICE VISIT, EST TELEMEDICINE Foll-up eval q3mo opiod tx OFFICE VISIT, EST TELEMEDICINE OFFICE/OUTPATIENT VISIT, EST Foll-up eval q3mo opiod tx Foll-up eval q3mo opiod tx OFFICE/OUTPATIENT VISIT, EST OFFICE/OUTPATIENT VISIT, EST OFFICE/OUTPATIENT VISIT, EST Drug test def 22+ classes Drug Urine Toxology With Chromatography OFFICE/OUTPATIENT VISIT, EST OFFICE/OUTPATIENT VISIT, EST OFFICE/OUTPATIENT VISIT, EST OFFICE/OUTPATIENT VISIT, EST OFFICE/OUTPATIENT VISIT, EST OFFICE/OUTPATIENT VISIT, EST OFFICE/OUTPATIENT VISIT, EST OFFICE/OUTPATIENT VISIT, EST OFFICE/OUTPATIENT VISIT, EST OFFICE/OUTPATIENT VISIT, EST OFFICE/OUTPATIENT VISIT, EST OFFICE/OUTPATIENT VISIT, EST OFFICE/OUTPATIENT VISIT, EST OFFICE/OUTPATIENT VISIT, EST OFFICE/OUTPATIENT VISIT, EST OFFICE/OUTPATIENT VISIT, EST OFFICE/OUTPATIENT VISIT, EST OFFICE/OUTPATIENT VISIT, EST OFFICE/OUTPATIENT VISIT, EST OFFICE/OUTPATIENT VISIT, EST OFFICE/OUTPATIENT VISIT, EST OFFICE/OUTPATIENT VISIT, EST OFFICE/OUTPATIENT VISIT, EST OFFICE/OUTPATIENT VISIT, EST -2014 OFFICE/OUTPATIENT VISIT, EST -2014 OFFICE/OUTPATIENT VISIT, EST -2014 OFFICE/OUTPATIENT VISIT, EST -2014 OFFICE/OUTPATIENT VISIT, EST -2014 OFFICE/OUTPATIENT VISIT, EST -2013 OFFICE/OUTPATIENT VISIT, EST -2013 OFFICE/OUTPATIENT VISIT, EST -2013 OFFICE/OUTPATIENT VISIT, EST -2013 OFFICE/OUTPATIENT VISIT, EST OFFICE/OUTPATIENT VISIT, EST -2013 Prescription Prior Auth OFFICE/OUTPATIENT VISIT, EST OFFICE/OUTPATIENT VISIT, EST OFFICE/OUTPATIENT VISIT, EST OFFICE/OUTPATIENT VISIT, EST OFFICE/OUTPATIENT VISIT, EST -2012 OFFICE/OUTPATIENT VISIT, EST OFFICE/OUTPATIENT VISIT, EST OFFICE/OUTPATIENT VISIT, EST OFFICE/OUTPATIENT VISIT, EST OFFICE/OUTPATIENT VISIT, EST OFFICE/OUTPATIENT VISIT, EST OFFICE/OUTPATIENT VISIT, EST OFFICE/OUTPATIENT VISIT, EST OFFICE/OUTPATIENT VISIT, EST OFFICE/OUTPATIENT VISIT, EST OFFICE/OUTPATIENT VISIT, EST OFFICE/OUTPATIENT VISIT, EST OFFICE/OUTPATIENT VISIT, EST OFFICE/OUTPATIENT VISIT, EST OFFICE/OUTPATIENT VISIT, EST OFFICE/OUTPATIENT VISIT, EST OFFICE/OUTPATIENT VISIT, EST OFFICE/OUTPATIENT VISIT, EST Advance Directives Directive Yes / No Effective Date File Name No Information Encounters Encounter Practice Location Reason(s) Diagnoses Date Provider Provide rs Description For Visit Copied on Encounter OFFICE/OUTPAT [facility] low back Drug induced Oct- Perdo Specialist IENT VISIT, [facility] pain constipationRhe [facility] 7 235 : Rohith EST Pain [place] (chief umatoid [address] Hien Henderson, Clinic, complaint) arthritisPain [place], [place] .Referri [address] in right [place], ng [place], hipPain in left [id number], Provi fredy: [place], shoulderPain in [place]. Faisal [place], left kneePain tel:[phone] Will Kaitlynn, [phone] in right ankle [address] [address] , [place] and joints of [place], tel:[phone] right footOther Minnea chiqui [id number] spondylosis, [place], [place], cervical [address] regionOther . spondylosis, tel:[phone] lumbar [phone] regionRadiculop athy, cervical regionPostlamin ectomy syndrome, not elsewhere classifiedLong term (current) use of opiate analgesicEncoun ter for therapeutic drug level monitoring [facility] lumbago Postlaminectomy Dulen Refe rring [facility] (chief syndrome, not 0-202 Lois. Prov ider: Pain [place] complaint) elsewhere 2 [address] [facility], classified [place], Will J, [address] [place], [address] DOUG Henderson, [place], [place], [id number], [place], [place]. s, [place], [id number] tel:[phone] , [place] [address] . tel:[phone] tel:+ [phone] OFFICE/OUTPAT [facility] low back Pain in left [facility] Specialist IENT VISIT, [facility] pain kneeDrug 0- [facility]. 7235 : R oy EST Pain [place] (chief induced [address] Hien Henderson, Clinic, complaint) constipationRhe [place], [place].Referri [address] umatoid [place], ng [place], arthritisPain [id number], Provide r: [place], in left [place]. Faisal [place], shoulderPain in tel:4 Arnold l J, [phone] right hipPain [address] [address] , [place] in right ankle [place], tel: and joints of [place] [phone] right footOther s, [place], spondylosis, [address] cervical . regionOther tel:+2 spondylosis, [id number] lumbar regionRadiculop athy, cervical regionPostlamin ectomy syndrome, not elsewhere classifiedLong term (current) use of opiate analgesic OFFICE/OUTPAT [facility] low back Drug induced [facility] Specialist IENT VISIT, [facility] pain constipationRhe 2 [facility] 7 235 : Rohith EST Pain [place] (chief umatoid [address] Hien Henderson, Clinic, complaint) arthritisPain [place], [place] .Referri [address] in left [place], tracey Henderson, shoulderPain in [id number], Provi fredy: [place], right hipPain [place]. Faisal CAMACHO, in left tel: Will [place], [phone] [place] [address] [address] , [place] right ankle and [place], tel:+95 joints of right Minnea chiqui [phone] footOther s, [place], spondylosis, [address] cervical . regionOther tel:[phone] spondylosis, 5597899 lumbar regionRadiculop athy, cervical regionPostlamin ectomy syndrome, not elsewhere classifiedLong term (current) use of opiate analgesic OFFICE/OUTPAT [facility] low back Drug induced [facility] Specialist IENT VISIT, [facility] pain constipationRhe 3 [facility] 7 235 : Rohith EST Pain [place] (chief umatoid [address] Hien Henderson, Clinic, complaint) arthritisPain [place], [place] .Referri [address] in left [place], ng [place], shoulderPain in [id number], Provi fredy: [place], right hipPain [place]. Faisal CAMACHO, in left tel:+ Will J, [phone] [place] [address] [address] , [place] right ankle and [place], tel: joints of right Minnea chiqui [phone] footOther s, [place], spondylosis, [address] cervical . regionOther tel:2 spondylosis, 8292953 lumbar regionRadiculop athy, cervical regionPostlamin ectomy syndrome, not elsewhere classifiedLong term (current) use of opiate analgesic [facility] Radiculopathy, June- Balbuenaанна Pulido. Referring [facility] cervical region [address] Provid er: Pain Center 2 Faisal Henderson [facility], [place], Will J, [address] [place], [address] [place], [id number], [place], [place], [place]. [place], tel: s, [place], [phone] , [place] . tel: tel: [phone] OFFICE/OUTPAT [facility] low back Pain in left June- Pedro Specialist IENT VISIT, [facility] pain kneeRheumatoid [facility] 72 35 : Rohith EST Pain [place] (chief arthritisPain [address] Hien Henderson , Clinic, complaint) in left [place], [place].Refer ri [address] shoulderPain in [place], ng [place], right hipPain [id number], Provide r: [place], in right ankle [place]. Faisal [place], and joints of tel: Will J, [phone] right footOther [address]57 [address] , [place] spondylosis, [place], tel: cervical [place] [phone] regionOther s, [place], spondylosis, [address] lumbar . regionPostlamin tel:+[phone] 52 ectomy [id number] syndrome, not elsewhere classifiedLong term (current) use of opiate analgesicRadicu lopathy, cervical regionDrug induced constipation OFFICE/OUTPAT [facility] low back Pain in left May- [facility] Specialist IENT VISIT, [facility] pain shoulderPain in [facility] 7 235 : Rohith EST Pain [place] (chief right [address] Bean Hendersoneller, Clinic, complaint) hipRheumatoid [place], [place] .Referri [address] arthritisPain DOUG, tracey [place], in left [id number], Provider: [place] kneePain in [place]. Faisal [place], right ankle and tel: Arnold l J, [phone] joints of right [address] [address] [facility] [place] footOther [place], tel: spondylosis, [place] [phone] cervical s, [place], regionOther [address] spondylosis, . lumbar tel: regionPostlamin 8990067 ectomy syndrome, not elsewhere classifiedLong term (current) use of opiate analgesicEncoun ter for therapeutic drug level monitoring OFFICE/OUTPAT [facility] low back Pain in left Apr- [facility] Specialist IENT VISIT, [facility] pain shoulderPain in [facility] 7 235 : Rohith EST Pain [place] (chief left kneePain [address] Bean Hendersoneller , Clinic, complaint) in right [place], [place].Refe rri [address] hipRheumatoid DOUG, tracey [place], arthritisOther [id number], Provid er: [place], spondylosis, [place]. Faisal [place], lumbar tel: Will J, [phone] regionPostlamin 61890 [address] [facility] [place] ectomy [place], tel: syndrome, not [place] [phone] elsewhere s, [place], classifiedPain [address] in right ankle . and joints of tel: right footLong [id number] term (current) use of opiate analgesicOther spondylosis, cervical regionEncounter for therapeutic drug level monitoring OFFICE/OUTPAT [facility] low back Pain in left Apr- [facility] Specialist IENT VISIT, [facility] pain shoulderPain in [facility] 7 235 : Rohith EST Pain [place] (chief left kneePain [address] Bean Hendersoneller , Clinic, complaint) in right [place], [place].Refe rri [address] hipCervicalgiaR DOUG, tracey [place], heumatoid [id number], Provider: Jermaine Coleman. Faisal DOUG, spondylosis, tel:+ Will J , [phone] lumbar 56467 [address] , [place] regionPostlamin [place], tel:+ ectomy [place] 08340334 syndrome, not [place], [place], elsewhere [address] classifiedPain . in right ankle tel:+ 2 and joints of 0530178 right footLong term (current) use of opiate analgesic OFFICE/OUTPAT [facility] low back Pain in left [facility] Specialist IENT VISIT, [facility] pain shoulderPain in [facility] 7 235 : Rohith EST Pain [place] (chief left kneePain [address] Bean Hendersoneller , [facility], complaint) in right [place], [place].Refe rri [address] hipCervicalgiaR DOUG, tracey [place], heumatoid [id number], Provider: Jermaine Coleman . Faisal DOUG, spondylosis, tel: Will J , [phone] lumbar [address] [address] , [place] regionPostlamin [place], tel: ectomy [place] 69372652 syndrome, not [place], [place], elsewhere [address] classifiedPain . in right ankle tel:+ 2 and joints of 1191197 right footLong term (current) use of opiate analgesic OFFICE/OUTPAT [facility] low back Other Pedro Speci alist IENT VISIT, [facility] pain spondylosis, [facility]235 : Rohith EST Pain [place] (chief lumbar [address] [place] [facility], [facility], complaint) regionPostlamin [place], [place].Referri [address] ectomy [place], ng [place], syndrome, not [id number], Provide r: [place], elsewhere [place]. Faisal CAMACHO, classifiedPain tel: Will J, [phone] in right ankle 45557 [address] , [place] and joints of [place], tel:+ right footPain [place] [phone] in [place], [place], [place] [address] left kneePain . in right tel: hipCervicalgiaR 9477803 heumatoid arthritisLong term (current) use of opiate analgesic OFFICE/OUTPAT [facility] low back Other [facility] Speci alist IENT VISIT, [facility] pain spondylosis, [facility] 7235 : Rohith EST Pain [place] (chief lumbar [address] [place] Hien, Clinic, complaint) [place], [place].Referri [address] ectomy [place], ng [place], syndrome, not [id number], Provide r: [place], elsewhere [place]. Faisal CAMACHO, classifiedPain tel: Will J, [phone] in right ankle 31912 [address] , [place] and joints of [place], tel: right footPain [place] [phone] in [place], [place], [place] [address] 48 left kneePain . in right tel: hipCervicalgiaR 3250491 heumatoid arthritisLong term (current) use of opiate analgesic OFFICE/OUTPAT [facility] low back Other [facility] Speci alist IENT VISIT, [facility] pain spondylosis, [facility] 7235 : Rohith EST Pain [place] (chief lumbar [address] [place] [facility], Clinic, complaint) regionPos[place], [place].Referri [address] ectomy [place], ng [place], syndrome, not [id number], Provide r: [place], elsewhere [place]. Faisal CAMACHO, classifiedPain tel: Will J, [phone] in right ankle 95745 [address] , [place] and joints of [place], tel: right footPain [place] [phone] in left [place], [place] [address] left kneePain . in right tel: hipCervicalgiaL 7170259 meghan term (current) use of opiate analgesicEncoun ter for therapeutic drug level monitoringRheum atoid arthritis OFFICE/OUTPAT [facility] low back Other Oct- [facility] Speci alist IENT VISIT, [facility] pain spondylosis, [facility] 7235 : Rohith EST Pain [place] (chief lumbar [address] [place] Hien, Clinic, complaint) regionPos[place], [place].Referri [address] ectomy [place], ng [place], syndrome, not [id number], Provide r: [place], elsewhere [place]. Faisal CAMACHO, classifiedPain tel: Will J, [phone] in right ankle 53318 [address] , [place] and joints of [place], tel:+95 right footPain [place] [phone] in left [place], [place], [place] [address]-16 48 left kneePain . in right tel:+952 hipCervicalgiaL 7677481 meghan term (current) use of opiate analgesic OFFICE/OUTPAT [facility] low back Other Pedro Speci alist IENT VISIT, [facility] pain spondylosis, [facility] 7235 : Rohith EST Pain [place] (chief lumbar [address] [place], Hien, Clinic, complaint) regionPos[place], [place].Referri [address] ectomy [place], ng [place], syndrome, not [id number], Provide r: [place], elsewhere [place]. Faisal CAMACHO, classifiedPain tel: Will J, [phone] in right ankle [address] [address] , [place] and joints of [place], tel:+95 right footPain [place] [phone] in left [place], [place], [place] [address] left kneePain . in right tel:+952 hipCervicalgiaL 2888699 meghan term (current) use of opiate analgesic OFFICE/OUTPAT [facility] low back Other Pedro Speci alist IENT VISIT, [facility] pain spondylosis, [facility] 7235 : Rohith EST Pain [place] (chief lumbar [address] [place], [facility], [facility], complaint) regionBejou, [place].Referri [address] ectomy [place], ng [place], syndrome, not [id number], Provide r: [place], elsewhere [place]. Faisal CAMACHO, classifiedPain tel: Will J, [phone] in right ankle 81523 [address] , [place] and joints of [place], tel:+95 right footPain [place] [phone] in left [place], [place], [place] [address]35 48 left kneePain . in right tel:+952 hipCervicalgiaL 1946260 meghan term (current) use of opiate analgesic 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 7235 Pain [place] of opiate [address] [place], Clinic, analgesicEncoun [place], [address] for [place], [place], therapeutic [id number], [place], drug level [place]. [place], monitoring tel: [phone] , [place] tel: [phone] OFFICE/OUTPAT [facility] low back Other [facility] Speci ali IENT VISIT, [facility] pain spondylosis, [facility] 7235 : Rohith EST Pain [place] (chief lumbar [address] Hien Henderson, Clinic, complaint) regionPosCl[place], [place].Referri [address] ectomy [place], ng [place], syndrome, not [id number], Provide r: [place], elsewhere [place]. Faisal CAMACHO, classifiedPain tel: Will J, [phone] in right ankle 08650 [address] , [place] and joints of [place], tel:+95 right footPain [place] [phone] in left [place], [place], [place] [address] left kneePain . in right tel:+2 hipCervicalgiaL 4267456 meghan term (current) use of opiate analgesicEncoun ter for therapeutic drug level monitoring OFFICE VISIT, [facility] low back Other [facility] Speci ali EST [facility] pain spondylosis, [facility] 7235 : R oy TELEMEDICINE Pain [place] (chief lumbar [address] Hien Henderson, Clinic, complaint) [facility], [address] ectomy [place], [address] [place], syndrome, not [id number], 140, [place], elsewhere [place]. Lakesha CAMACHO, classifiedPain tel:4 , [place] , [phone] in right ankle 26821 [address]. , [place] and joints of tel: tel: right footPain [phone] Ref 66864106 in left erring shoulderPain in Provider : left kneePain Faisal in right Will J, hipCervicalgiaL [address] meghan term [place], (current) use [place] of opiate [place], [place], analgesicEncoun [address]-[address] for . therapeutic tel: drug level [phone] monitoring OFFICE VISIT, [facility] low back Other [facility] pain spondylosis, [facility] 7235 : R oy TELEMEDICINE Pain [place] (chief lumbar [address] [place] [facility], Clinic, complaint) [facility], [address] ectomy [place], Rd [address] [place], syndrome, not [id number], 140, [place], elsewhere [place]. Lakesha CAMACHO, classifiedPain tel:4 , [place] , [phone] in right ankle 94708 10823. , [place] and joints of tel: tel: right footPain 8386513 Ref [id number] in left erring shoulderPain in Provider : left kneePain Faisal in right Will J, hipCervicalgiaL [address] meghan kirsten Henderson, (current) use [place] of [place]iate [place], [place], analgesic [address] . tel:[phone] OFFICE/OUTPAT [facility] low back Other Nov- [facility] IENT VISIT, [facility] pain spondylosis, 0- [facility] 7235 : Rohith EST Pain [place] (chief lumbar [address] [place] [facility], Clinic, complaint) [facility], [address] ectomy [place], Rd [address] [place], syndrome, not [id number], 140, [place], elsewhere [place]. Lakesha CAMACHO, classifiedPain tel:284 , [place] , [phone] in right ankle [address]. , [place] and joints of tel: tel: right footPain [phone] Ref [id number] in left erring shoulderPain in Provider : left kneePain Faisal in right Will J, hipLong term [address] (current) use [place], of opiate [place] analgesicCervic s, [place], [place] [address] . tel:[phone] OFFICE/OUTPAT [facility] low back half-way Sep- Pedro Harris cialist IENT VISIT, [facility] pain (current) use [facility] 723 5 : Rohith EST Pain [place] (chief of opiate [address] Hien Henderson, Clinic, complaint) analgesicPostla [place], [address] minectomy [place], Rd [address] [place], syndrome, not [id number], 140, [place], elsewhere [place]. Lakesha CAMACHO, classifiedPain tel:284 , [place] , [phone] in right ankle 17884 89894. , [place] and joints of tel: tel: right footPain [phone] Ref [id number] in left erring shoulderOther Provider: spondylosis, Faisal lumbar Will J, regionPain in [address] left kneePain [place], [place], [address] . tel:[phone] OFFICE VISIT, [facility] low back Postlaminectomy Branden- Fransisco flores Specialist EST [facility] pain syndrome, not [facility] : Rohith TELEMEDICINE Pain [place] (chief elsewhere [address] Narendra Henderson, Clinic, complaint) classifiedPain [place], 7 [address] in right ankle [place], [address] [place], and joints of [id number], 140, [place], right footPain [place]. Margot mclaughlin [place], in left tel:[phone] , [place], [phone] shoulderLong 60339 [address]. , [place] term (current) tel: 2 tel: use of opiate [id number] ef [id number] analgesicOther erring spondylosis, Provider: lumbar Faisal regionPain in Will J, left kneePain [address] in right hip [place], [place], [address] . tel:[phone] OFFICE VISIT, [facility] low back Postlaminectomy May- Pedro Specialist EST [facility] pain syndrome, not 4 [facility] : Rohith TELEMEDICINE Pain (chief elsewhere [address] [place], Narendra r, Clinic, complaint) classifiedLow [place], [address] back painPain [place], Rd [address] [place], in right ankle [id number], 140, [place], and joints of [place]. [place], right footLong tel:[phone] , [place] , [phone] term (current) 14615 79226. , [place] use of opiate tel: tel: analgesicPain [id number] ef [id number] in left erring shoulder Provider: Faisal Calderón [address] [place], [address] . tel:[phone] OFFICE/OUTPAT [facility] low back Postlaminectomy Jaydena s Specialist IENT VISIT, [facility] pain syndrome, not 6-202 [facility]. 723 5 : Rohith EST Pain [place] (chief elsewhere 0 OhHien Jones, Clinic, complaint) classifiedLow [place] [address] [address] back painLong [place], Rd [address], term (current) [id number], 140, [place], use of opiate [place]. Lakesha CAMACHO, analgesicPain tel:284 , [place], [phone] in right ankle [phone] [phone]. , [place] and joints of tel: tel:+ right foot [phone] [phone] erring Provider: Faisal Calderón [address] [place], [address] . tel:[phone] OFFICE/OUTPAT [facility] low back Postlaminectomy Kanga s Specialist IENT VISIT, [facility] pain syndrome, not 7-201 [facility] 723 5 : Rohith EST Pain [place] (chief elsewhere [address] Hien Henderson, Clinic, complaint) classifiedLow [place] [address] [address] back painPain [place], Rd [address], in right [id number], 140, [place], handLong term [place]. [place] DOUG, (current) use tel:+4 , [place], [phone] of opiate [address]. , [place] analgesic tel:+ tel:+ [phone] erring Provider: Faisal Calderón, 7[address] [facility] [place], [address] . tel:[phone] OFFICE/OUTPAT [facility] low back half-way Nov- Pedro Spe cialist IENT VISIT, [facility] pain (current) use 0-201 [facility] 723 5 : Rohith EST Pain [place] (chief of opiate 9 [facility] [place] [facility], Clinic, complaint) analgesicPostla [place], [address] minectomy [place], Rd [address], syndrome, not [id number], 140, [place], elsewhere [place]. Lakesha CAMACHO, classifiedLow tel:4 , DOUG, [phone] back pain [phone] [address]209. , [place] tel: tel: [phone] [phone] erring Provider: Faisal Calderón, 7[address] [facility] [place], [address] . tel:[phone] OFFICE/OUTPAT [facility] low back Postlaminectomy Sep- Kanga s Specialist IENT VISIT, [facility] pain syndrome, not 0-201 [facility]. 723 5 : Rohith EST Pain [place] (chief elsewhere 9 [facility], Clinic, complaint) classifiedLow [place], 77 [address] back painLong [place], Rd [address], term (current) [id number], 140, [place], use of opiate [place]. [place] DOUG, analgesic tel:+[phone] , [place], [phone]. , [place] tel:+ tel:+ [phone] erring Provider: Faisal Calderón, 7[address] [facility] [place], [address] . tel:[phone] OFFICE/OUTPAT [facility] low back Pain in right Jose-0 Pedro Specialist IENT VISIT, [facility] pain handLow back 1- [facility]. 7235 : Rohith EST Pain [place] (chief painPostlaminec 9 [address] [place], Moell er, Clinic, complaint) pricilla syndrome, [place], 7 [address] not elsewhere [place], Rd [address], classifiedEncou [id number], 140, [place], nter for [place]. Lakesha DOUG, therapeutic tel:284 , [place], [phone] drug level [phone] 08888. , [place] monitoringLong tel: 2 tel: term (current) [phone] Ref [phone] use of opiate erring analgesic Provider: Faisal Calderón, 7[address] [facility] [place], [address] . tel:[phone] OFFICE/OUTLAT [facility] low back Postlaminectomy Apr-2 Fransisco s Specialist IENT VISIT, [facility] pain syndrome, not 9- [facility]. 723 5 : Rohith EST Pain [place] (chief elsewhere [address] [place], Hien, Clinic, complaint) classifiedLow [place], 77 [address] back painLong [place], Rd [address], term (current) [id number], 140, [place], use of opiate [place]. [place] DOUG, analgesicPain tel:284 , DOUG, [phone] in right hand [phone] 9[address]27. , [place] tel: tel: [phone] erring Provider: Faisal Calderón, 7[address] [facility] [place], [address] . tel:[phone] OFFICE/OUTPAT [facility] low back Intervertebral Mar-0 Pedro Specialist IENT VISIT, [facility] pain disc disorders 4- [facility]. 72 35 : Rohith EST Pain [place] (chief with 9 [address] [place], Hien, Clinic, complaint) myelopathy, [place], [address] lumbar [place], Rd [address], regionLow back [id number], 140, [place], painLong term [place]. [place], (current) use tel:4 , [place], [phone] of opiate [phone] [address]. , [place] analgesic tel: tel: [phone] [phone] erring Provider: Faisal Calderón, 7[address] [facility] [place], [address] . tel:[phone] OFFICE/OUTPAT [facility] low back Postlaminectomy Dec-2 Kanga s Specialist IENT VISIT, [facility] pain syndrome, not 8-201 [facility] 723 5 : Rohith EST Pain [place] (chief elsewhere 8 [facility] Hien Henderson, Clinic, complaint) classifiedInter [place], [address] vertebral disc [place], Rd [address] [place], disorders with [id number], 140, [place], myelopathy, [place]. [place], lumbar tel: , [place], [phone] regionLow back 14966 77784. , [place] pain tel: tel: [phone] [phone] erring Provider: Faisal Calderón, 7[address] [facility] [place], [address] . tel:[phone] OFFICE/OUTLAT [facility] low back Postlaminectomy Nov-0 Kanga s Specialist IENT VISIT, [facility] pain syndrome, not 2-201 [facility] 723 5 : Rohith EST Pain [place] (chief elsewhere 8 [facility] Hien Henderson, Clinic, complaint) classifiedInter [place], 7373 [address] vertebral disc [place], [address] [place], disorders with [id number], [address] [place], myelopathy, [place]. 306, [place], lumbar tel: [place], [place], [phone] regionLow back 49725 00983. , [place] painLong term tel: tel:+ (current) use [phone] ef [phone] of opiate erring analgesic Provider: Faisal Calderón, 7[address] [facility] [place], [address] . tel:[phone] OFFICE/OUTPAT [facility] low back Postlaminectomy Kasey mclaughlin Specialist IENT VISIT, [facility] pain syndrome, not 8 Chuck. 14 55 : Rohith EST Pain [place] (chief elsewhere [address] Hien, Clinic, complaint) classifiedLow [facility] 100, 7373 7[address] back pain [place], Haven A ve DOUG [place], [address] [place], [id number], 306, [place], [place]. DOU[place], [address] tel:[phone]. , [place] [address] tel: tel: [phone] [phone] erring Provider: Faisal Calderón, [address] [place], [address] . tel:[phone] OFFICE/OUTPAT [facility] low back Low back Jose-0 Pedro Spec ialist IENT VISIT, [facility] pain painPostlaminec 5 [facility]. 7 235 : Rohith EST Pain [place] (chief pricilla syndrome, 8 [address] [place], Beanelle r, Clinic, complaint) not elsewhere [place], 73 73 [address] classified Haven CAMACHO Clara [place], [id number], [address] [place], [place]. 306, [place], tel:+[phone] DOUG [place], [phone] 62045 05729. , [place] tel: tel: [phone] erring Provider: Faisal Calderón, [address] [place], [address] . tel:[phone] OFFICE/OUTPAT [facility] low back Low back May-0 Pedro Spec ialist IENT VISIT, [facility] pain painPostlaminec 3 [facility]. 7 235 : Rohith EST Pain [place] (chief pricilla syndrome, 8 [address] [place], Beanelle r, Clinic, complaint) not elsewhere [place], 73 73 [address] classified Haven CAMACHO [place], [id number], [address] [place], [place]. 306, [place], tel:+ DOUG [place], [phone] 35701 26510. , [place] tel: tel: [phone] [phone] erring Provider: Faisal Calderón, [address] [place], [address] . tel:[phone] OFFICE/OUTPAT [facility] low back Low back Mar-0 Pedro Spec ialist IENT VISIT, [facility] pain painPostlaminec 6-201 [facility]. 7 235 : Rohith EST Pain [place] (chief pricilla syndrome, [address] [place], Moelle r, Clinic, complaint) not elsewhere [place], 73 73 [address] classified DOUG, Haven [place], [id number], [address] [place], [place]. 306, [place], tel: DOU[place], [phone] 65978. , [place] tel: tel: [phone] [phone] erring Provider: Faisal Calderón, [address] Shiraz Henderson Sebastianginger sandra [place], [address] . tel:[phone] OFFICE/OUTPAT [facility] low back Low back Dennis-0 Pedro Spec ialist IENT VISIT, [facility] pain painPostlaminec 3-201 [facility]. 7 235 : Rohith EST Pain [place] (chief pricilla syndrome, [address] [place], Moelle r, Clinic, complaint) not elsewhere [place], 73 73 [address] classified DOUG, Haven Henderson, [id number], [address] [place], [place]. 306, [place], tel:284 DOU[place], [phone]. , [place] tel: tel: [phone] [phone] erring Provider: Faisal Calderón, [address] Shiraz [place] Sebastianginger sandra [place], [address] . tel:[phone] OFFICE/OUTPAT [facility] low back Low back Nov-0 Pedro Spec ialist IENT VISIT, [facility] pain painPostlaminec 6-201 [facility]. 7 235 : Rohith EST Pain [place] (chief pricilla syndrome, 7 [address] [place], Moelle r, Clinic, complaint) not elsewhere [place], 73 73 [address] classified DOUG, Haven Henderson, [id number], [address] [place], [place]. 306, [place], tel:+4 [place], [place], [phone] 42054 [address]51. , [place] tel: tel: [phone] [phone] erring Provider: Faisal Calderón, [address] [place], [address] . tel:[phone] OFFICE/OUTPAT [facility] low back Low back Sep-0 Pedro Spec ialist IENT VISIT, [facility] pain painPostlaminec 8-201 [facility]. 7 235 : Rohith EST Pain [place] (chief pricilla syndrome, 7 [address] [place], Moelle r, Clinic, complaint) not elsewhere [place], 73 73 [address] classified DOUG, Haven Henderson, [id number], [address] [place], [place]. 306, [place], tel:+ DOU[place], [phone] 83062 [phone]. , [place] tel: tel: [phone] erring Provider: Faisal Calderón, [address] [place], [address] . tel:[phone] OFFICE/OUTPAT [facility] low back Low back Jose-0 Pedro Spec ialist IENT VISIT, [facility] pain painPostlaminec 7-201 [facility]. 7 235 : Rohith EST Pain [place] (chief pricilla syndrome, 7 [address] [place], Moelle r, Clinic, complaint) not elsewhere [place], 73 73 [address] classified DOUG, Haven Henderson, [id number], [address] [place], [place]. 306, [place], tel:[phone] [place], DOUG, [id number] 63867 [address]953. , [place] tel: tel:+ [phone] [phone] erring Provider: Faisal Calderón, 7[address] Shiraz Henderson Sebastianginger sanrdaDOUG, [address] . tel:[phone] OFFICE/OUTPAT [facility] low back Low back pain May-0 Pedro Specialist IENT VISIT, [facility] pain 9-201 [facility] 7235 : Ro y EST Pain [place] (chief 7 [facility], Clinic, complaint) [place], [address] [place], [address] [place], [id number], [address] [place], [place]. 306, [place], tel:+[phone] [place], [place], [phone] 63308 90743. , [place] tel:+ tel:[phone] [phone] erring Provider: Faisal Calderón, 7[address] [facility] [place], [address] . tel:[phone] OFFICE/OUTPAT [facility] low back Low back pain Apr-1 Pedro Specialist IENT VISIT, [facility] pain 0-201 [facility]. 7235 : Ro y EST Pain [place] (chief 7 [facility], Clinic, complaint) [place], [address]373 [address] [place], Haven [place], [id number], [address] [place], [place]. 306, [place], tel:+[phone] DOU[place], [phone] [phone] [phone]. , [place] tel:+31 tel:[phone] [phone] erring Provider: Faisal Calderón, [address] [place], [address] . tel:[phone] OFFICE/OUTPAT [facility] low back Low back pain Dennis-0 Pedro Specialist IENT VISIT, [facility] pain 3-201 [facility]. 7235 : Ro y EST Pain [place] (chief 7 [facility], [facility]) [place], [address] [place], Haven [place], [id number], [address] [place], [place]. 306, [place], tel:[phone] DOUG [place], [phone] [phone]. , [place] tel:+58 tel:[phone] [phone] erring Provider: Faisal Calderón, [address] [place], [address] . tel:[phone] OFFICE/OUTPAT [facility] low back Low back Nov-0 Pedro Spec ialist IENT VISIT, [facility] pain painPostlaminec [facility]. 7 235 : Rohith EST Pain [place] (chief pricilla syndrome, 6 [address] [place], Moelle r, Clinic, complaint) not elsewhere [place], 73 73 [address] classified [place], Haven [place], [id number], [address] [place], [place]. 306, [place], tel:+[phone] [place], [place], [phone] [phone] [phone]. , [place] tel:+59 tel:[phone] erring Provider: Faisal Calderón, [address] [place], [address] . tel:[phone] OFFICE/OUTPAT [facility] low back Low back Sep-0 Pedro Spec ialist IENT VISIT, [facility] pain painPain in [facility]. 7235 : Rohith EST Pain [place] (chief left shoulder 6 OhHien Jones , Clinic, complaint) [place], [address]373 [address] DOUG, Haven Dimairis [place], [id number], [address] [place], [place]. 306, [place], tel:+[phone] DOU[place], [phone] 44215 11577. , [place] tel:+99 tel:[phone] [phone] erring Provider: Fiasal Calderón, [address] [place], [address] . tel:[phone] OFFICE/OUTPAT [facility] low back Low back Jose-0 Pedro Spec ialist IENT VISIT, [facility] pain painPain in [facility]. 7235 : Rohith EST Pain [place] (chief left 6 [address] Bean Hendersoneller, Clinic, complaint) shoulderPain in [place], 7373 7[address] right ankle and [place], Haven [place], joints of right [id number], S [address]illa [address] [place], foot [place]. 306, [place], tel:+[phone] DOUG [place], [phone] [phone] 05460. , [place] tel: tel:+ [phone] [phone] erring Provider: Faisal Calderón, [address] [place], [address] . tel:[phone] OFFICE/OUTPAT [facility] low back Low back June- Pedro Spec ialist IENT VISIT, [facility] pain painPain in [facility]. 7235 : Rohith EST Pain [place] (chief left shoulder 6 [address] [place], Hien , Clinic, complaint) [place], [address] [place], Haven Aviris [place], [id number], [address] [place], [place]. 306, [place], tel:+[phone] DOUG [place], [phone] 37689 80601. , [place] tel: tel: [phone] [phone] erring Provider: Faisal Calderón, [address] [place], [address] . tel:[phone] OFFICE/OUTPAT [facility] low back Low back Apr- Pedro Spec ialist IENT VISIT, [facility] pain painPain in [facility]. 7[facility] : Rohith EST Pain [place] (chief left shoulder 6 [address] [place], Hien , Clinic, complaint) [place], [address] [place], Haven Elizabeth [place], [id number], [address] [place], [place]. 306, [place], tel:+[phone] DOU[place], [phone]. , [place] tel: tel:+ [phone] [phone] erring Provider: Faisal Calderón, [address] [place], [address] . tel:[phone] OFFICE/OUTPAT [facility] low back Low back Mar- Pedro Spec ialist IENT VISIT, [facility] pain painPain in [facility] 7235 : Rohith EST Pain [place] (chief right ankle and 6 [address] [place], [place], Clinic, complaint) joints of right [place], 7373 7[address] footPain in [place], Haven Clara [place], left shoulder [id number], [address] [place], [place]. 306, [place], tel: [place], [place], [phone] 55745 [phone]. , [place] tel: tel: [phone] [phone] erring Provider: Faisal Calderón, 7235 [facility] [place], [address] . tel:[phone] OFFICE/OUTPAT [facility] low back Low back Nov-0 Pedro Spec ialist IENT VISIT, [facility] pain painPostlaminec 6 [facility]. 7 235 : Rohith EST Pain [place] (chief pricilla syndrome, 5 [facility] [place], Narendra r, Clinic, complaint) not elsewhere [place], 73 73 [address] classified [place], Haven Clara [place], [id number], [address] [place], [place]. 306, [place], tel: [place], DOUG, [id number] [phone]. , [place] tel: tel: [phone] OFFICE/OUTPAT [facility] low back Ankylosis of Oct- Pedro Specialist IENT VISIT, [facility] pain ankle and foot [facility]. 72 35 : Rohith EST Pain [place] (chief jointDegenerati 5 [address] [place], Olman er, Clinic, complaint) on of lumbar or [place], 7373 [address] lumbosacral [place], Haven [place], intervertebral [id number], S [address] [place], discEnthesopath [place]. 306, [place], y of hip tel: [place], [phone] regionIntervert [phone]. , [place] ebral disc tel: tel: disorder with [phone] myelopathy, lumbar regionLumbagoPa in in joint involving ankle and footPain in joint involving lower legPostlaminect nikita syndrome of lumbar regionPain in joint involving shoulder region OFFICE/OUTPAT [facility] low back Ankylosis of Aug- [facility] Specialist IENT VISIT, [facility] pain ankle and foot 6-201 [facility]. 72 35 : Rohith EST Pain [place] (chief jointDegenerati 5 Ohtx Olman Henderson er, Clinic, complaint) on of lumbar or [place], 7372 7235 [address] lumbosacral [place], [address] [place], intervertebral [id number], S [address] [place], discEnthesopath [place]. 306, [place], y of hip tel: [place], [place], [phone] regionIntervert [phone]. , [place] ebral disc tel: tel: disorder with [phone] myelopathy, lumbar regionLumbagoPa in in joint involving ankle and footPain in joint involving lower legPostlaminect nikita syndrome of lumbar region OFFICE/OUTPAT [facility] low back Acquired [facility] Spec ialist IENT VISIT, [facility] pain musculoskeletal 3-201 [facility]. 7 235 : Rohith EST Pain [place] (chief deformity of 5 [facility] Bean Hendersoneller, Clinic, complaint) unspecified [place], 737 7235 [facility] siteAnkylosis [place], Haven A ve [place], of ankle and [id number], [address] [place], foot [place]. 306, [place], jointDegenerati tel: [place], [place], [phone] on of [place] [phone] 74715. , [place] lumbosacral tel: tel: intervertebral [phone] discEnthesopath y of hip regionIntervert ebral disc disorder with myelopathy, lumbar regionLumbagoPa in in joint involving ankle and footPain in joint involving lower legPostlaminect nikita syndrome of lumbar region OFFICE/OUTPAT [facility] low back Ankylosis of Apr- [facility] Specialist IENT VISIT, [facility] pain ankle and foot 8-201 [facility]. 72 35 : Rohith EST Pain [place] (chief jointDegenerati 5 [facility] Olman Henderson er, Clinic, complaint) on of lumbar or [place], 737 7235 [address] lumbosacral [place], [address] [place], intervertebral [id number], S [address] [place], discEnthesopath [place]. 306, [place], y of hip tel: [place], [place], [phone] regionIntervert [phone]. , [place] ebral disc tel: tel: disorder with [phone] myelopathy, lumbar regionLumbagoPa in in joint involving ankle and footPain in joint involving lower legPostlaminect nikita syndrome of lumbar region OFFICE/OUTPAT [facility] low back Degeneration of Fransisco s Specialist IENT VISIT, [facility] pain lumbar or 6-201 [facility]. 7235 : Rohith EST Pain [place] (chief lumbosacral 5 [address] Hien Henderson, Clinic, complaint) intervertebral [place], 7 373 7235 [address] discEnthesopath [place], Haven [place], y of hip [id number], [address] [place], regionIntervert [place]. 306, [place], ebral disc tel: [place], M N, [phone] disorder with [phone]. , [place] myelopathy, tel: tel: lumbar [phone] regionLumbagoPa in in joint involving ankle and footPain in joint involving lower legPostlaminect nikita syndrome of lumbar regionAnkylosis of ankle and foot joint OFFICE/OUTPAT [facility] Back Pain Ankylosis of Pedro Specialist IENT VISIT, [facility] (chief ankle and foot 0-201 [facility] 72 35 : Rohith EST Pain [place] complaint) jointDegenerati 4 [address] Bean Henderson, Clinic, on of lumbar or [place], 737 3 7235 [address] lumbosacral [place], Haven [place], intervertebral [id number], [address] [place], discEnthesopath [place]. 306, [place], y of hip tel: [place], [place], [phone] regionIntervert [phone] 84871. , [place] ebral disc tel: tel: disorder with [phone] myelopathy, lumbar regionLumbagoPo stlaminectomy syndrome of lumbar region OFFICE/OUTPAT [facility] back pain Postlaminectomy Jayden jj Specialist IENT VISIT, [facility] (chief syndrome of 7-201 [facility]. 7235 : Rohith EST Pain [place] complaint) lumbar 4 [address] Bean Hendersoneller, Clinic, regionPain in [place], 7373 7[address] joint involving [place], Haven Henderson, ankle and [id number], [address] [place], footLumbago [place]. 306, [place], tel:+[phone] [place], [place], [phone] [phone]. , [place] tel:+ tel:+ [phone] OFFICE/OUTPAT [facility] low back Postlaminectomy Sep- Monico Specialist IENT VISIT, [facility] pain syndrome of Ayana. : Rohith EST Pain [place] (chief lumbar 4 7235 [address] [facility], complaint) regionPain in [place], 7373 [address] joint involving [place], F jatin Clara Henderson, ankle and foot [place], [address] [place], [id number], 306, [place], [place]. [place], [place], [id number] tel:[phone]. , [place] [address] tel:+ tel:+ [phone] OFFICE/OUTPAT [facility] back and Pain in joint Aug- Pedro Specialist IENT VISIT, [facility] right foot involving ankle [facility] 7235 : Rohith EST Pain [place] pain and footLumbago 4 [address] Olman Henderson , Clinic, (chief [place], 7373 7[address] complaint) [place], Haven Clara Henderson, [id number], [address] [place], [place]. 306, [place], tel:+[phone] [place], [place], [phone] 30992 26550. , [place] tel:+ tel:+ [phone] OFFICE/OUTPAT [facility] back and Pain in joint June- Pedro Specialist IENT VISIT, [facility] right foot involving ankle 3-201 [facility] . 7235 : Rohith EST Pain [place] pain and 4 [address] Hien Henderson, Clinic, (chief footLumbagoPain [place], 737 3 7235 [address] complaint) in joint [place], Haven Clara Henderson, involving lower [id number], [address] [place], leg [place]. 306, [place], tel:+[phone] [place], [place], [phone] 30715 [phone]. , [place] tel: tel: [phone] OFFICE/OUTPAT [facility] right foot Pain in joint Fransisco sandra Specialist IENT VISIT, [facility] pain involving ankle 4-201 [facility] 7 235 : Rohith EST Pain [place] (chief and footLumbago 4 [address] [place], Moell er, Clinic, complaint) [place], 7373 [address] low back [place], [address] [place], pain [id number], [address] [place], (chief [place]. 306, [place], complaint) tel:[phone] [place], Jose N, [id number] 67314 81615. , [place] tel: tel: [phone] [place] [address] No Information Will Faisal. [facility] 8- 7235 [address] Pain [place] 4 [place], Clinic, [place], [address] [place], [place], [id number], [place], [place]. [place], tel:[phone] 21431 , [place] tel: [phone] OFFICE/OUTPAT [facility] right foot Pain in joint Will Faisal. Specialist IENT VISIT, [facility] pain involving ankle 3-201 7235 Ohm s : Rohith EST Pain [place] (chief and foot 4 [place], Hien, Clinic, complaint) [place], [address] [place], [place] Elizabeth [place], [id number], [address] [place], [place]. [address], [place], tel:[phone] [place], [place], [phone]. , [place] tel: tel: [phone] [place] [address] right foot Pain in joint No [facility] involving ankle 2-201 Information : [facility] [place] (chief and foot 3 Hien, Clinic, complaint) [address] [place], [address] [place], [address], [place], [place], [place], [id number]. , [place] tel: tel: [phone] OFFICE/OUTPAT [facility] right foot Pain in joint No Specialist IENT VISIT, [facility] pain involving ankle 1-201 Informat ion : Rohith [facility] [place] (chief and foot 3 Hien, Clinic, complaint) [address] [place], [address] [place], [address], [place], [place], [place], [id number]. , [place] tel: tel: [phone] OFFICE/OUTPAT [facility] right foot Pain in joint No Specialist IENT VISIT, [facility] pain involving ankle 6-201 Informat ion : [facility] [place] (chief and foot 3 Hien, Clinic, complaint) [address] [place], [address] [place], [address], [place], [place], [id number]. , [place] tel: tel: [phone] OFFICE/OUTPAT [facility] right foot Pain in joint No Specialist IENT VISIT, [facility] pain involving ankle 9201 Informat ion : [facility] [place] (chief and 3 Hien, Clinic, complaint) footDegeneratio [address] n of lumbar or [place], lumbosacral [address] [place], intervertebral 306, [place], disc [place], [place], [id number]. , [place] tel: tel: [phone] OFFICE/OUTPAT [facility] right foot Pain in joint No Specialist IENT VISIT, [facility] pain involving ankle 0-201 Informat ion : Roihth [facility] [place] (chief and foot 3 Hien, Clinic, complaint) [address] [place], [address] [place], [address], [place], [place], [place], [id number]. , [place] tel: tel: [phone] OFFICE/OUTPAT [facility] right foot Pain in joint No Specialist IENT VISIT, [facility] pain involving ankle 1-201 Informat ion : Rohith [facility] [place] (chief and foot 2 Hien, Clinic, complaint) [address] [place], [address] [place], [address], [place], [place], [id number]. , [place] tel: tel: [phone] OFFICE/OUTPAT [facility] right foot Pain in joint No Specialist IENT VISIT, [facility] pain involving ankle 4 Informat ion : [facility] [place] (chief and foot 2 Hien, Clinic, complaint) [address] [place], [address] [place], [address], [place], [place], [place], [id number]. , [place] tel: tel: [phone] OFFICE/OUTPAT [facility] right foot Pain in joint Will Faisal. IENT VISIT, [facility] pain involving ankle [address] EST Pain [place] (chief and foot 2 [place], Clinic, complaint) [place], [address] [place], [id number], [place], [place], tel:[phone] , [place] tel: [phone] OFFICE/OUTPAT [facility] right foot Pain in joint Will Faisal. IENT VISIT, [facility] pain involving ankle [address] EST Pain [place] (chief and foot 2 [place], Clinic, complaint) [place], [address] DOUG [place], [id number], [place], tel:[phone] , [place] tel: [phone] OFFICE/OUTPAT [facility] right foot Pain in joint Will Faisal. IENT VISIT, [facility] pain involving ankle [address] EST Pain [place] (chief and foot 2 [place], Clinic, complaint) [place], [address] [place], [id number], [place], [place], tel:[phone] , [place] tel: [phone] OFFICE/OUTPAT [facility] right foot Pain in joint Will Faisal. IENT VISIT, [facility] pain involving ankle 7- [address] EST Pain [place] (chief and 2 [place], Clinic, complaint) footEnthesopath [place], [address] y of hip region [place], [place], [id number], [place], [place], tel:[phone] , [place] tel: [phone] OFFICE/OUTPAT [facility] right foot Pain in joint Will Faisal. IENT VISIT, [facility] pain involving ankle 0-201 [address] EST Pain [place] (chief and foot 1 [place], Clinic, complaint) [place], [address] [place], [place], [id number], [place], [place], tel:[phone] , [place] tel: [phone] OFFICE/OUTPAT [facility] right foot Pain in joint Will Faisal. IENT VISIT, 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, lumbar region tel:[phone] , [place] tel:[phone] OFFICE/OUTPAT [facility] low back Intervertebral Will Harley dorman. IENT VISIT, [facility] pain disc disorder - [address] EST Pain [place] (chief with 1 [place], Clinic, complaint) myelopathy, [place], [address] right foot lumbar [place], [place], pain regionPain in [id number], [place], (chief joint involving [place], complaint) ankle and foot tel:[phone] , [place] tel:[phone] OFFICE/OUTPAT [facility] right foot Pain in joint Will Faisal. IENT VISIT, [facility] pain involving ankle 8-201 [address] EST Pain [place] (chief and 1 [place], Clinic, complaint) footInterverteb [place], [address] low back ral disc [place], [place], pain disorder with [id number], [place], (chief myelopathy, [place], complaint) lumbar region tel:[phone] , [place] tel: [phone] OFFICE/OUTPAT C[facility] right foot Pain in joint Will IENT VISIT, [facility] pain involving ankle [address] EST Pain [place] (chief and 1 [place], Clinic, complaint) footAcquired [place] [address] [address] musculoskeletal [place], [place], deformity of [id number], [place], unspecified [place], site tel:[phone] , [place] tel: [phone] OFFICE/OUTPAT [facility] right foot Acquired Will Noah moulton IENT VISIT, [facility] pain musculoskeletal [address] EST Pain [place] (chief deformity of 1 [place], Clinic, complaint) unspecified [place] [address] [address] sitePain in [place], [place], joint involving [id number], [place], ankle and foot [place], tel:[phone] , [place] tel: [phone] OFFICE/OUTPAT [facility] right foot Pain in joint Will IENT VISIT, [facility] pain involving ankle [address] EST Pain [place] (chief and 0 [place], Clinic, complaint) footAcquired [place] [address] [address] [place]culoskeletal [place], [place], deformity of [id number], [place], [place], site tel:[phone] , [place] tel: [phone] OFFICE/OUTPAT [facility] right foot Acquired Will Noah moulton IENT VISIT, [facility] pain musculoskeletal [address] EST Pain [place] (chief deformity of 0 [place], Clinic, complaint) unspecified [place] [address] [address] [place], [place], joint involving [id number], [place], ankle and foot [place], tel:[phone] , [place] tel: [phone] OFFICE/OUTPAT [facility] right foot Acquired Will Noah moulton IENT VISIT, [facility] pain musculoskeletal 5-201 [address] EST Pain [place] (chief deformity of 0 [place], Clinic, complaint) unspecified [place], [facility] [address] sitePain in [place], [place], joint involving [id number], [place], ankle and [place], footAnkylosis tel:[phone] of ankle and [address] , [place] foot joint tel: [phone] OFFICE/OUTPAT [facility] right foot Pain in joint Will Faisal. IENT VISIT, [facility] pain involving ankle 3-201 [address] EST Pain [place] (chief and 0 [place], Clinic, complaint) footAcquired [place] [address] [address] [place], [place], deformity of [id number], [place], [place], site tel:[phone] , [place] tel: [phone] [facility] right foot Acquired Will Faisal. [facility] pain musculoskeletal 7-201 [address] Pain [place] (chief deformity of 0 [place], Clinic, complaint) unspecified [place] [address] [address] [place], [place], joint involving [id number], [place], ankle and foot [place], tel:[phone] , [place] tel: [phone] OFFICE/OUTPAT [facility] foot pain Pain in joint Will A ndrew. IENT VISIT, [facility] (chief involving ankle 4-201 [address] EST Pain [place] complaint) and 0 [place], Clinic, footAcquired [place] [address] [address] [place], [place], deformity of [id number], [place], [place], siteAnkylosis tel:[phone] of ankle and [address] , [place] foot jointViral tel: [phone] OFFICE/OUTPAT [facility] right foot Pain in joint Will Faisal. IENT VISIT, [facility] pain involving ankle 0-200 [address] EST Pain [place] (chief and 9 [place], Clinic, complaint) footAcquired [place] [address] [address] [place], [place], deformity of [id number], [place], [place], siteAnkylosis tel:[phone] of ankle and [address] , [place] foot joint tel: [phone] [facility] Foot pain Pain in joint Will [facility] (chief involving ankle 0-200 [address] [place] complaint) and 9 [place], Clinic, footAcquired [place], [address] musculoskeletal [place], [place], deformity of [id number], [place], [place], site tel:[phone] , [place] tel: [phone] 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, tel:[phone] , [place] tel: [phone] Family History Family Member Type Diagnosis Age At Onset Mother Problem (finding) back pain Payers Payer name Insurance type Covered libertarian ID Authorization(s ) [facility] MedicareComplete Replacement 16 [id number] Social History Type Description Quantity Date Captured Comments Alcohol Use Details Unknown Caffeine Use Details Unknown Tobacco Use Status No Information Smoking Status No Information Sex Female Vital Signs Date / Height Weight BMI Pulse Blood Temperature Respiratory Body Head Head Circ. Wt./[place]. BMI Pulse Inhaled Time: Rate Pressure Rate Surface Circumference Percenti le Percentile percentile Ox Ox Area 63.503 -2021 kg 2:33 (140.00 PM lbs) Chief Complaint And Reason For Visit From encounter dated '11/08/2021 14:40'. low back pain (chief complaint). Description: Severity level is 5. Duration: chronic. The problem isstable. It occurs persistently. The client describes the pain as an ache, burning and sharp. Symptoms are aggravated by bending, standing and walking. Symptoms are relieved by ice, lying down, massage,pain meds/drugs, rest, sitting and changing positions. Reason For Referral Reason For Referral No Information Plan Of Treatment Date Type Action Status Goal Height. Due on due Goal Hepatitis C screening. Due on due Goal Unhealthy drug use screening. Du e on due Goal Weight. Due on due Goal Tobacco Use. Due on due Goal Order Annual PT. Due on due Goal Creatinine. Due on d ue Goal ARCHITECT INTERN Scanned. Due on due Goal UDT. Due on due Goal PHQ-9. Due on due Goal FIT-DNA. Due on due Goal CT-Colonography. Due on due Goal Medication Reconciliation. Due o n due Goal FIT. Due on due Goal Lipid panel. Due on due Goal AST (SGOT). Due on d ue Goal OARS. Due on due Goal Update Social History. Due on due Goal Zoster vaccine (1st). Due on Oct due Goal [employer] Paperwork. Due on due Goal ALT (SGPT). Due on d ue Goal Review Allergy List. Due on due Goal ARCHITECT INTERN Scanned. Due on due Goal Order Annual PT. Due on due Goal OARS. Due on due Goal AST (SGOT). Due on d ue Goal ALT (SGPT). Due on d ue Goal UDT. 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 Due on due Goal Medication Reconciliation. Due o n due Goal Creatinine. Due on d ue Goal Review Allergy List. Due on due Goal Update Social History. Due on due Goal Hepatitis C screening. Due on due Goal FIT. Due on due Goal Unhealthy drug use screening. Du e on due Goal FIT-DNA. Due on due Goal Weight. Due on due Goal Tobacco Use. Due on due Goal Lipid panel. Due on due Goal Zoster vaccine (1st). Due on Sep due Goal CT-Colonography. Due on due Goal PHQ-9. Due on due Goal Height. Due on due Goal Medication Reconciliation. Due o n due Goal Order Annual PT. Due on due Goal FIT-DNA. Due on due Goal ARCHITECT INTERN Scanned. Due on due Goal FIT. Due on due Goal Review Allergy List. Due on due Goal Weight. 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 Due on due Goal Height. Due on due Goal OARS. Due on due Goal ALT (SGPT). Due on d ue Goal Creatinine. Due on d ue Goal Lipid panel. Due on due Goal Hepatitis C screening. Due on due Goal UDT. Due on due Goal PHQ-9. Due on due Goal AST (SGOT). Due on d ue Goal Tobacco Use. Due on due Goal Update Social History. Due on due Goal CT-Colonography. Due on due Goal Unhealthy drug use screening. Du e on due Goal Zoster vaccine (1st). Due on Sep due Goal UDT. Due on due Goal OARS. Due on due Goal Creatinine. Due on d ue Goal ARCHITECT INTERN Scanned. Due on due Goal AST (SGOT). 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 Due on due Goal Order Annual PT. Due on due Goal ALT (SGPT). Due on d ue Goal Review Allergy List. Due on due Goal CT-Colonography. Due on due Goal Hepatitis C screening. Due on due Goal FIT. Due on due Goal Lipid panel. Due on due Goal Unhealthy drug use screening. Du iris on due Goal Update Social History. Due on due Goal Zoster vaccine (1st). Due on Aug due Goal Height. Due on due Goal Tobacco Use. Due on due Goal PHQ-9. Due on due Goal Weight. Due on due Goal Medication Reconciliation. Due o n due Goal FIT-DNA. Due on due Goal FIT. 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 Due on due Goal Height. Due on due Goal OARS. Due on due Goal AST (SGOT). Due on d ue Goal Order Annual PT. Due on due Goal Creatinine. Due on d ue Goal ALT (SGPT). Due on d ue Goal UDT. Due on due Goal ARCHITECT INTERN Scanned. Due on due Goal FIT-DNA. Due on due Goal Hepatitis C screening. Due on due Goal Tobacco Use. Due on due Goal Unhealthy drug use screening. Rusty simmons on due Goal Review Allergy List. Due on due Goal Weight. Due on due Goal PHQ-9. Due on due Goal Lipid panel. Due on due Goal Update Social History. Due on due Goal Medication Reconciliation. Due o n due Goal CT-Colonography. Due on due Goal Zoster vaccine (). Due on Jul due Goal Unhealthy drug use screening. Rusty simmons on due Goal Medication Reconciliation. Due o n due Goal Review Allergy List. Due on due Goal Zoster vaccine (). Due on June due Goal Update Social History. Due on due Goal PHQ-9. Due on due Goal CT-Colonography. Due on due Goal FIT-DNA. Due on due Goal Weight. Due on due Goal FIT. Due on due Goal Height. Due on due Goal Lipid panel. Due on due Goal Creatinine. Due on d ue Goal AST (SGOT). 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 Due on due Goal OARS. Due on due Goal ARCHITECT INTERN Scanned. Due on due Goal UDT. Due on due Goal ALT (SGPT). Due on d ue Goal Tobacco Use. Due on due Goal Order Annual PT. Due on due Goal Hepatitis C screening. Due on due Goal Tobacco Use. Due on due Goal Medication Reconciliation. Due o n due Goal Lipid panel. Due on due Goal PHQ-9. Due on due Goal CT-Colonography. 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 Due on due Goal Weight. Due on due Goal Order Annual PT. Due on due Goal Hepatitis C screening. Due on due Goal AST (SGOT). Due on d ue Goal UDT. Due on due Goal ALT (SGPT). Due on d ue Goal Update Social History. Due on due Goal Unhealthy drug use screening. Du e on due Goal ARCHITECT INTERN Scanned. Due on due Goal Creatinine. Due on d ue Goal OARS. Due on due Goal FIT. Due on due Goal Review Allergy List. Due on due Goal Height. Due on due Goal FIT-DNA. Due on due Goal Zoster vaccine (1st). Due on May due Goal ALT (SGPT). Due on d ue Goal Tobacco Use. Due on due Goal AST (SGOT). Due on d ue Goal Review Allergy List. Due on due Goal Update Social History. Due on Wv due Goal PHQ-9. Due on due Goal Weight. Due on due Goal Medication Reconciliation. Due o n due Goal M[employer]DER Paperwork. Due on due Goal ARCHITECT INTERN Scanned. Due on due Goal Order Annual PT. Due on due Goal Creatinine. Due on d ue Goal OARS. Due on due Goal UDT. Due on due Goal Height. Due on due Goal UDT. Due on due Goal Review Allergy List. Due on due Goal Order Annual PT. Due on due Goal OARS. 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 Due on 2 due Goal Update Social History. Due on due Goal Creatinine. Due on d ue Goal ARCHITECT INTERN Scanned. Due on due Goal AST (SGOT). Due on d ue Goal ALT (SGPT). Due on d ue Goal PHQ-9. Due on due Goal Height. Due on due Goal Medication Reconciliation. Due o n due Goal Weight. Due on due Goal Tobacco Use. Due on due Goal OARS. Due on due Goal ARCHITECT INTERN Scanned. Due on due Goal Tobacco Use. Due on due Goal Order Annual PT. Due on 022 due Goal MORT[employer]DER Paperwork. Due on due Goal PHQ-9. Due on due Goal Review Allergy List. Due on due Goal Update Social History. Due on due Goal Medication Reconciliation. Due o n due Goal Height. Due on due Goal AST (SGOT). Due on d ue Goal UDT. Due on due Goal ALT (SGPT). Due on d ue Goal Creatinine. Due on d ue Goal Weight. 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 Due on due Goal ALT (SGPT). Due on d ue Goal ARCHITECT INTERN Scanned. Due on due Goal Order Annual PT. Due on 021 due Goal OARS. Due on due Goal AST (SGOT). Due on d ue Goal Update Social History. Due on due Goal UDT. Due on due Goal Creatinine. Due on d ue Goal Review Allergy List. Due on due Goal Height. Due on due Goal Weight. Due on due Goal PHQ-9. Due on due Goal Tobacco Use. Due on due Goal Medication Reconciliation. Due o n due Goal Creatinine. Due on d ue Goal OARS. Due on due Goal Height. Due on due Goal ARCHITECT INTERN Scanned. Due on due Goal Weight. Due on due Goal Review Allergy List. 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 Due on due Goal Update Social History. Due on due Goal Tobacco Use. Due on due Goal PHQ-9. Due on due Goal Medication Reconciliation. Due o n due Goal AST (SGOT). Due on d ue Goal Order Annual PT. Due on due Goal UDT. Due on due Goal ALT (SGPT). Due on d ue Goal Creatinine. 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 Due on due Goal Update Social History. Due on Oc due Goal UDT. Due on due Goal Order Annual PT. Due on due Goal ALT (SGPT). Due on d ue Goal AST (SGOT). Due on d ue Goal Weight. Due on due Goal OARS. Due on due Goal Medication Reconciliation. Due o n due Goal Review Allergy List. Due on due Goal ARCHITECT INTERN Scanned. Due on due Goal Height. Due on due Goal PHQ-9. Due on due Goal Tobacco Use. Due on due Goal Tobacco Use. Due on due Goal Update Social History. Due on due Goal OARS. Due on due Goal Weight. Due on due Goal ARCHITECT INTERN Scanned. Due on due Goal UDT. Due on due Goal ALT (SGPT). 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 Due on due Goal PHQ-9. Due on due Goal Order Annual PT. Due on due Goal Height. Due on due Goal Creatinine. Due on d ue Goal Review Allergy List. Due on due Goal Medication Reconciliation. Due o n due Goal AST (SGOT). Due on d ue Goal Weight. Due on due Goal OARS. Due on due Goal Review Allergy List. Due on due Goal UDT. Due on due Goal ARCHITECT INTERN Scanned. Due on due Goal ALT (SGPT). Due on d ue Goal Medication Reconciliation. Due o n due Goal Tobacco Use. Due on due Goal PHQ-9. Due on due Goal Order Annual PT. Due on due Goal Creatinine. Due on d ue Goal Height. 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 Due on due Goal AST (SGOT). Due on d ue Goal Update Social History. Due on due Goal UDT. Due on due Goal ALT (SGPT). Due on d ue Goal ARCHITECT INTERN Scanned. Due on due Goal PHQ-9. Due on due Goal Tobacco Use. Due on due Goal Medication Reconciliation. Due o n due Goal Height. Due on due Goal Creatinine. Due on d ue Goal Order Annual PT. Due on 021 due Goal OARS. 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 Due on due Goal Weight. Due on due Goal Review Allergy List. Due on due Goal Update Social History. Due on due Goal AST (SGOT). Due on d ue Appointment Krys Lea BOOKED Appointment Krys Lea BOOKED Future Order: Lab Order COMPLIANCE DRUG ANALYSIS , URINE, WITH MED Ordered REPORT ([id number]), Ordered on: Future Order: Lab Order Drug Test Def [address]+ [address] ([id number]), Ordered Ordered on: History Of Present Illness Encounter Date Complaint History Of Present I llness low back pain Severity level is 5. Duration: chronic. The problem is stable. I t occurs persistently. The client describes the pain as an ache, burning and sharp. S ymptoms are aggravated by bending, standing an d walking. Symptoms are relieved by ice, lyi ng down, massage, pain meds/drugs, rest, si tting and changing positions. Comments: Yola baldev brumfield for a follow up and medication refill re garding lower back pain. Following with cecelia pringle regarding infection on her rig ht heel which has almost resolved. R ankle/fo ot, lower back, neck, and hip pain are current ly stable. Flares depending on travel/ activity level. Left shoulder pain has so mewhat improved with cortisone injections last week through ortho. Participates in HEP as able. Accompanied by her today. N o further questions or concerns. lumbago Patient reports not feeling up to exercising today. Discussed cody hager at home she is using a walker. has been l imited with her walking due to a wound on he r left heel. Patient states she did soem PT in the past year but has not been doing e xercise at home. has a bike and treadmill b ut is not currently using them. Patient staes when her foot heals she is interested in ret urning to PT because she would like to walk m ore. She has a history of 3 lumbar surgeries a nd has a lumbar fusion. She has had a lot of PT. Comments: Yola jeffersiris brumfield for a follow up and medication refill re garding lower back pain. Prescribed medicatio n offers 90% pain relief. Denies SE.Following with specialists regarding infection on her right heel. Currently on antibio tics and using topicals and states this has improved. R ankle/foot, lower back, neck, an d hip pain are currently stable. Flares depen ding on travel/activity level. Left shoulder pain has continued to be more bothersome. Fol lowing with ortho and was encouraged to consid er shoulder surgery in the past. Hip inject ions through ortho. Participates in HEP as able. Updated PT scheduled for this a fternoon 10/09/21. Accompanied by her h usband today. No further questions or concern s. low back pain Duration: chronic. T he problem is fluctuating. It occu rs persistently. The client describes the pain as an ache. Symptoms are aggrava sudhir by bending, walking, housework and prolon ged positioning. Symptoms are relieved by ice, lying down, massage, pain meds/drugs, str etching, rest and changing positions. Comments: Yola brumfield for a follow up and medication refill re garding lower back pain. Prescribed medicatio n offers 90% pain relief. Denies SE.Reports po ssible fungal infection on her right heel. A dvised per pharmacist to trial tinactin spray and topical anti fungal medication. R ankle/ foot, lower back, neck, and hip pain are cur rently stable. Flares depending on travel/ activity level. Left shoulder pain has co ntinued to be more bothersome. Followin g with ortho and was encouraged to consid er shoulder surgery in the past. Hip inject ions through ortho. Participates in HEP as able. Updated PT scheduled for 2. Accompanied by her today. No fu rther questions or concerns. low back pain Severity level is 2. Duration: chronic. The problem is fluctuati ng. It occurs intermittently. Symp toms are aggravated by bending, walking, ho usework and prolonged positioning. Symptom s are relieved by ice, lying down, massage, pain meds/drugs, stretching, rest and changing positions. low back pain Severity level is 10 . Duration: chronic. The problem is fluctuati ng. It occurs intermittently. The client describes the pain as an ache and sharp . Symptoms are aggravated by bending, lifting, standing, walking, housework, movement and prolonged positioning. Symptom s are relieved by ice, lying down, massage, pain meds/drugs, rest, sitting and changing positions. Comments: Yola brumfield for a follow up and medication refill re garding lower back pain. Prescribed medicatio n offers 85% pain relief. Denies SE.R ankle/fo ot, lower back, neck, and hip pain are current ly stable. Flares depending on travel/ activity level. Left shoulder pain has co ntinued to be more bothersome. Followin g with ortho and was encouraged to consid er shoulder surgery in the past. Hip inject ions through ortho. Participates in HEP as able. Cervical BOBO on 07/23/21 with 60% rel ief. Open to updating PT as discussed today. Accompanied by her today. No fu rther questions or concerns. low back pain Severity level is 2. Duration: chronic. The problem is fluctuati ng. It occurs persistently. The cl ient describes the pain as an ache and burni ng. Symptoms are aggravated by bendin g, lifting, standing, twisting, walking, h ousework, movement and prolonged positionin g. Symptoms are relieved by heat, ice, lying down, pain meds/drugs and changing positions. Comments: Yola brumfield for a follow up and medication refill re garding lower back pain. Prescribed medicatio n offers 80% pain relief. Denies SE.R ankle/fo ot, lower back, and hip pain are currently s table. Flares depending on travel/activity l evel. Neck and left shoulder pain have c ontinued to be more bothersome. Followin g with ortho and was encouraged to consid er shoulder surgery in the past. Hip inject ions through ortho. Participates in HEP as able. Requesting cervical BOBO through [facility].Accompanied by her today. No fu rther questions or concerns. Comments: Yola brumfield for a follow up and medication refill re garding lower back pain. Prescribed medicatio n offers 70% pain relief. Denies SE.R ankle/fo ot, lower back, hip, and L shoulder pain are currently stable. Flares depending on travel/ activity level. Neck and left shoulder pain h ave continued to be more bothersome. 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 Completed injection at the end of April and will be reevaluated in three months. Hip in jections through ortho. Participates in HEP as able. Inquires about [place] increase.Accom panied by her today. No further qu estions or concerns. low back pain Severity level is 6. Duration: chronic. The problem is stable. I t occurs persistently. The client describes the pain as an ache and sharp. Symptoms are aggravated by bending, lifting, standing, t wisting, walking, movement and housewo rk. Symptoms are relieved by ice, pain meds/dr ugs, rest and changing positions. low back pain Severity level is 4. Duration: chronic. The problem is fluctuati ng. It occurs persistently. The pa tieyumiko describes the pain as an ache and burni ng. Symptoms are aggravated by bendin g, standing, twisting, walking, housework, movement and prolonged positioning. Symptom s are relieved by ice, lying down, massage, pain meds/drugs and rest. low back pain (comments) Yola presents f or a follow up and medication refill regarding low er back pain. Prescribed medication offers 80 % pain relief. Denies SE.R ankle/foot, low er back, hip, and L shoulder pain are cu rrently stable. Flares depending on travel/ activity level. Neck and left shoulder pain h ave been more bothersome. She has completed ce rvical imaging for review today. Advised of ar thritis in her neck and encouraged to consid er shoulder surgery per ortho in the past. H ip injections through ortho. Participates in HEP as able. Requesting PT order at this time.Accompanied by her today . No further questions or concerns. low back pain (comments) Yola presents f or a follow up and medication refill regarding low er back pain. Prescribed medication offers 80 % pain relief. Denies SE.R ankle/foot, low er back, hip, and L shoulder pain are cu rrently stable. Flares depending on travel/ activity level. Neck and left shoulder pain h ave been more bothersome. She has not yet comp leted imaging previously ordered. 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 H ip injections through ortho. Participates in HEP as able. Accompanied by her h usband today. No further questions or concern s. low back pain Duration: chronic. T he problem is stable. It occurs intermittentl y. The patient describes the pain as an ache, burning, sharp and tingling. Symptoms a re aggravated by bending and housework.The pa griffin denies relieving factors. low back pain Severity level is 2. Duration: chronic. The problem is stable. I t occurs intermittently. The patient describe s the pain as an ache, burning, sharp and t ingling. Symptoms are aggravated by bendin g and housework.The patient denies relie ving factors. low back pain (comments) Yola presents f or a follow up and medication refill regarding low er back pain. Prescribed medication offers 80 % pain relief. Denies SE.R ankle/foot, low er back, hip, and L shoulder pain are cu rrently stable. Flares depending on travel/ activity level. Neck and left shoulder pain h ave been more bothersome. 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 H ip injections through ortho. Following wit h podiatry regarding infection in her rig ht toe which has almost resolved. Participat es in HEP as able. Accompanied by her h usband today. No further questions or concern s. low back pain Severity level is 8. Duration: chronic. The problem is stable. I t occurs intermittently. The patient describe s the pain as an ache and sharp. Symptoms are aggravated by ascending stairs, bending, kyle cending stairs, lifting, twisting, walking, h ousework and prolonged positioning. Symptom s are relieved by ice, lying down, massage, pain meds/drugs, stretching, rest, si tting and changing positions. low back pain (comments) Yola presents f or a follow up and medication refill regarding low er back pain. Prescribed medication offers 80 % pain relief. Denies SE.R ankle/foot, low er back, hip, and L shoulder pain are cu rrently stable. Flares depending on travel/ activity level. Hip injections through o rtho. Following with podiatry regarding i nfection in her right toe. Participates in HEP as able. Graduated home PT summer 2020. Accompanied by her today. No fu rther questions or concerns. low back pain (comments) Yola presents f or a follow up and medication refill regarding low er back pain. Prescribed medication offers 60 % pain relief. Denies SE.R ankle/foot, low er back, hip, and L shoulder pain are cu rrently stable. Flares depending on travel/ activity level. Hip injections through o rtho. Reports a few day hospitalization r/t a bowel obstruction. Participates in HEP as able. Graduated home PT summer 2020. Requ esting ongoing orders at this time.Accompanie d by her today. No further questions or concerns. low back pain Severity level is 8. Duration: chronic. The problem is stable. I t occurs intermittently. The patient describe s the pain as an ache, burning and sharp. S ymptoms are aggravated by ascending stairs, be nding, descending stairs, lifting, running, st anding, twisting, walking, housework a nd prolonged positioning. Symptoms are relieve d by ice, lying down, pain meds/drugs, res t, sitting and changing positions. low back pain (comments) Yola presents f or a follow up and medication refill regarding low er back pain. Prescribed medication offers 60 % pain relief. Denies SE.R ankle/foot, low er back, hip, and L shoulder pain are cu rrently stable. Flares depending on travel/ activity level. Hip injections through o rtho. Also recently completed a lumbar E SI. 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 Particip ates in HEP as able. Graduated home PT louie mmer 2020.Accompanied by her today. N o further questions or concerns. low back pain Duration: chronic. T he problem is stable. It occurs persistently. The patient describes the pain as an ache and sharp. Symptoms are aggravated by ascend ing stairs, bending, descending stairs, s itting, twisting, walking, housework, movement and prolonged positioning. Symptom s are relieved by ice, pain meds/drugs, phy sical therapy, stretching, rest, si tting and changing positions. low back pain Severity level is 8. Duration: chronic. The problem is stable. I t occurs persistently. The patient describe s the pain as an ache and sharp. Symptoms are aggravated by ascending stairs, bending, kyle cending stairs, sitting, twisting, walking, h ousework, movement and prolonged positionin g. Symptoms are relieved by ice, pain meds/dr ugs, physical therapy, stretching, rest, si tting and changing positions. low back pain (comments) Yola presents f or a follow up and medication refill regarding low er back pain. Prescribed medication offers 60 % pain relief. Denies SE.R ankle/foot, and L shoulder pain are currently stable. Fl erica depending on travel/activity leve l. Lower back and hip have been more bothe rsome. Inquires about further increase in Robaxin. Hip injections through ortho. Parti cipates in HEP as able.Accompanied by her today. No further questions or concerns. low back pain (comments) Yola presents f or a follow up and medication refill regarding low er back pain. Prescribed medication offers 75 % pain relief. Denies SE.Back, R ankle/abhishek t, R hip, and L shoulder pain are currently s table. Flares depending on travel/activity l evel. Recent hip injection though ort ho has not offered significant relief t hus far. Participates in HEP as able.Accompan ied by her today. No further questions or concerns. low back pain Duration: chronic. T he problem is stable. It occurs intermittentl y. The patient describes the pain as an ache and sharp. Symptoms are aggravated by bendin g, standing, twisting, walking, housework, movement and prolonged positioning. Symptom s are relieved by ice, lying down, pain med s/drugs, rest and changing positions. low back pain Severity level is 8. Duration: chronic. The problem is stable. I t occurs intermittently. The patient describe s the pain as an ache and sharp. Symptoms are aggravated by bending, standing, twisting, walking, housework, movement and prolong ed positioning. Symptoms are relieved by ice, lying down, pain meds/drugs, rest and changing positions. low back pain (comments) Yola presents f or a follow up and medication refill regarding low er back pain. Prescribed medication offers 75 % pain relief. Denies SE.Back, R ankle/abhishek t, R hip, and L shoulder pain are currently s table. Flares depending on travel/activity l evel. Currently on antibiotics for an i nfection in her toe as well as a UTI. Parti cipates in HEP as able.Accompanied by her today. No further questions or concerns. low back pain Severity level is 7. Duration: chronic. The problem is worsening . It occurs intermittently. The patient describes the pain as an ache and sharp. Symptoms are aggravated by ascend ing stairs, bending, descending stairs, s itting, standing, twisting, walking, h ousework and prolonged positioning. Symptom s are relieved by ice, lying down, pain med s/drugs, rest, changing positions, standing and walking. low back pain (comments) Yola presents f or a follow up and medication refill regarding low er back pain. Prescribed medication offers 75 % pain relief. Denies SE.Back, R ankle/abhishek t, R hip, and L shoulder pain have been worse recently which is attributed to travel . L hip injection last week is offering estelita e relief. Participates in HEP as able and will be starting PT in June.Accompanied by h er today. No further questions or concerns. low back pain Severity level is 7. Duration: chronic. The problem is fluctuati ng. It occurs persistently. The pa tient describes the pain as an ache and sharp . Symptoms are aggravated by bending, sitting, standing, twisting and walking. Symptoms ar e relieved by ice, lying down, pain meds/drug s and rest. low back pain (comments) Yola presents v ia telephone for a follow up and medication refil l regarding lower back pain. Prescribed med ication offers 70% pain relief. Denies SE.Re cently underwent R hip bursa injection thro ug ortho which has offered benefit. R w rist has healed completely. Back, R ankle/foot, R hip, and L shoulder pain have r emained stable. Participates in HEP as able. No further questions or concern s. low back pain Severity level is 5. Duration: chronic. The problem is fluctuati ng. It occurs persistently. The pa tient describes the pain as an ache and sharp . Symptoms are aggravated by bending, lifting, standing, walking and prolonged positionin g. Symptoms are relieved by ice, pain meds/dr ugs, elevating feet and topicals. low back pain (comments) Yola presents v ia telephone for a follow up and medication refil l regarding lower back pain. Prescribed med ication offers 90% pain relief. Denies SE.Co ntinues to wear R wrist cast from fall. R kn ee pain continues to be bothersome from fall , but is returning to baseline. Back, R an kle/foot, R hip, and L shoulder pain have r emained stable. Participates in HEP as able. No further questions or concern s. low back pain Onset: gradual witho ut injury. Severity level is moderate. Duratio n: chronic. The problem is fluctuating. It o ccurs intermittently. Location of pain is upper back, lower back, gluteal area, left f lank, right flank, arms and legs. Pain is ra diated to the left thigh and right thigh.The patient describes the pain as an ache, bur aman, numbness and sharp. Symptoms are aggrava sudhir by daily activities, sitting, standing an d walking. Symptoms are relieved by heat, ic e, pain meds/drugs and rest. low back pain (comments) Krys is here for a follow up and medications refill.P resents in a cast today as she broke her wri st in two places d/t fall. She was advise d surgery would not be likely. R knee pain continues to be bothersome from fall , but is returning to baseline. Back, R an kle/foot, R hip, and L shoulder pain have r emained stable. Participates in HEP as able. No further questions or concern s. low back pain (comments) Krys is here for a follow up and medications refill. Low back pain has been fluctuating this thu, tolerable with medication. She had hip injections at ortho with minimal relief. Reports current medication regimen p rovides >90% pain relief and allows for incre ased functionality. Denies side effects from current medication regimen.No other con cerns today. low back pain Onset: gradual witho ut injury. Severity level is moderate. Duratio n: chronic. The problem is fluctuating. It o ccurs intermittently. Location of pain is upper back, lower back, gluteal area, left f lank, right flank, arms and legs. Pain is ra diated to the left thigh and right thigh.The patient describes the pain as an ache and sharp. Symptoms are aggravated by daily activities, sitting, standing and walking . Symptoms are relieved by pain meds/drugs a nd rest. low back pain (comments) Yola presents f or a follow up and medications refill for her c/c o f back and R foot pain.L knee pain has been m ore bothersome recently. Planning to follow w ith ortho regarding this. Also has increased p ain to her R hip and L shoulder pain. Injec tions through ortho in the past with benefi t. R foot/ankle and back pain have mostly rem ained stable. Typical back and foot pain f jovan with increased activity. No further questions or concerns. low back pain Onset: gradual witho ut injury. Severity level is moderate. Duratio n: chronic. The problem is fluctuating. Loca tion of pain is lower back, gluteal area, left flank and right flank. Pain is radia sudhir to the left thigh and right thigh.The charlene ent describes the pain as an ache, burning and sharp. Symptoms are aggravated by daily activities, sitting, standing and walking . Symptoms are relieved by pain meds/drugs a nd rest. low back pain Duration: chronic. T he problem is fluctuating. It occu rs persistently. Location of pain is lower papa k.The patient describes the pain as an ache. Symptoms are aggravated by bending, daily ac tivities and lifting. Symptoms are relieve d by pain meds/drugs and rest. low back pain (comments) Yola presents f or a virtual follow up and medications refill f or her c/c of back and R foot pain which she reports to be stable overall. She also no renuka of L shoulder pain and has been getting injections through ortho. She continues to be active as much as she can. Reports cur rent medication regimen provides 50+% pain r elief and allows for increased functional ity. Denies side effects from current medicat ion regimen. low back pain The problem is stabl e. It occurs persistently. Locati on of pain is lower back.There is no rad iation of pain. The patient describes th e pain as an ache. Symptoms are aggrava sudhir by ascending stairs, daily activities, de scending stairs, standing, twisting a nd walking. Symptoms are relieved by ice, lyi ng down, pain meds/drugs and rest. low back pain (comments) Krys is here for follow up and medications refill for her back pain which has been stable overall. She notes of some improvements with he r back since starting physical therapy. De clines additional adjuncts and interve ntions to pursue at this time. Will consider trialing SCS in the future. Flexeril con tinues to provide her with relief. Reports current medication regimen provides 50+ % pain relief and allows for increased functi onality. Denies side effects from current medication regimen.No other concerns today . low back pain Severity level is mo derate. Duration: chronic. The problem is worsening. It occurs occasionally. Locati on of pain is lower back.The patient kyle cribes the pain as an ache and sharp. Symp toms are aggravated by bending, daily activ ities, descending stairs, lifting, running, st anding, twisting, walking and prolonged positi oning. Symptoms are relieved by ice, lyi ng down, movement, pain meds/drugs, physical therapy, rest and sitting. low back pain (comments) Patient is her e for follow up and medications refill f or ongoing low back pain which is worsening.P atient did not report percentage of pain r elief with current medication regimen, but pain goes from 9 to a 5 on pain scale with medications. Denies side effects from current medication regimen. Continues PT with ho me regimen. Methocarbamol caused lethargy, but restarted Flexeril. She considers an SCS dev ice. Cellulitis resolved. low back pain (comments) Krys is here for follow up and medications refill for her c.c o f back pain which has been stable overall. She reports of being hospitalized d/t R f oot infection d/t cellulitis and was p laced on antibiotics. Declines additional interventions and would like to start PT for her balance and gait. Reports current medi cation regimen provides 50% pain relief and allows for increased functionality. Denie s side effects from current medication r egimen.No other concerns today. low back pain Severity level is 3. Duration: chronic. The problem is stable. I t occurs persistently. Location of pain is lower back.The patient describes the pain a s an ache, burning and sharp. Symptoms are aggravated by ascending stairs, daily activi ties, descending stairs, standing and walking . Symptoms are relieved by lying down, pain meds/drugs and rest. low back pain Severity level is 3. Duration: chronic. The problem is fluctuati ng. It occurs persistently. Locati on of pain is lower back and BL foot.The charlene ent describes the pain as an ache. Symptoms ar e aggravated by standing, twisting and walking . Symptoms are relieved by pain meds/drugs a nd rest. low back pain (comments) Krys is here for follow up and medications refill for her c/c o f low back pain which has been fluctuating ove rall with intermittent pain flares. She rep orts of recently having knee injections whic h provided her with some relief. She also not es of an episode cellulitis and was g iven antibiotics. Declines additional PT at this time. Presents with #15 [place] and # 14 Methadone - on track. Reports current medi cation regimen provides 50% pain relief and allows for increased functionality. Denie s side effects from current medication r egimen.No other concerns today. low back pain (comments) Patient is here for follow up and medications refill for ongoing l umbar pain. She is present here today w ith her who contributes to the d iscussion of the patient's care. Jordan es any recent changes to her pain. Does note increased left knee pain but continues routin e care with her orthopedist. Patient presents with #135.5 [place], and #14 Metha done - both are surplus. Reports current medi cation regimen provides 90-95% pain relief. Denies side effects from current medication r egimen. No other concerns today. low back pain Severity level is 3. Duration: chronic. The problem is stable. I t occurs intermittently. Location of pain is lower back, left knee and right ankle.The charlene ent describes the pain as an ache and sharp. S ymptoms are aggravated by ascending stairs, be nding, descending stairs, lifting, running, st anding, twisting, walking, housework a nd prolonged positioning. Symptoms are relieve d by ice, lying down, pain meds/drugs, res t and changing positions. low back pain (comments) Krys is here for follow up and medications refill. She reports of her pain to have been stable. She notes of acute R wrist pain and has EMG scheduled fo r further assessment. Presents with #20 Me thadone and #108.5 [place] - on track. Reports current medication regimen provides 90% pain relief and allows for increased functi onality. Denies side effects from current medication regimen.No other concerns today . low back pain Severity level is 4. Duration: chronic. The problem is stable. I t occurs persistently. Location of pain is lower back and R wrist.The patient de scribes the pain as an ache and burning. Sy mptoms are aggravated by ascending stairs, ch anging positions, descending stairs, s tanding, twisting and walking. Symptoms ar e relieved by ice, lying down, pain meds/drug s and rest. low back pain (comments) Patient is here for a f/u. Has #74 [place] and #9 Methadone remaini ng - on track. Medications are effe ctive at relieving pain without SE. Krys's pain has been stable since last visit. Magdalena adame has been doing well with no major issues to address. [place] plans on going [place] and wanted to make sure she can get her medi cations refilled. Krys continues to exercis e for pain relief. She has no other concern s to address. PT-N/AESI-N/ARF-not triedSCS-not tried Meds: Opioids-Currently ta kes [place] and Methadone Neuropathics-Current ly takes gabapentin Muscle Relaxant- Cur rently takes methocarbamol Anti-I nflammatories-N/AMedical Cannabis-not certifi ed low back pain Severity level is 3. Duration: chronic. The problem is stable. I t occurs persistently. Location of pain is lower back.The patient describes the pain a s an ache and burning. Symptoms are aggrava sudhir by ascending stairs, bending, descending stairs, lifting, standing, twisting, walking and prolonged positioning. Symptom s are relieved by lying down, massage, over the counter medication, pain meds/drugs, res t and changing positions. low back pain (comments) Patient is here for follow up and medications refill for ongoing l umbar pain. She is present here today w ith her who contributes to the d iscussion of the patient's care. Stat es her pain has been changing since last OV. She had recently completed a left hip x-ray and reports no abnormalities. Jacy nues to attend PT which provides benefit.Yvonne garcia presents with #16 Methadone, and #69 N orco - on track. Reports current medication r egimen provides 80% pain relief. Denies side effects from current medication regimen. Currently on Prednisone for 2 more days whic h provides benefit. No other concerns today . low back pain Severity level is 9. Duration: chronic. The problem is changing in character. It occurs intermittently. Loca tion of pain is lower back.The patient kyle cribes the pain as an ache and sharp.The p atient denies aggravating factors. The patient denies relieving factors. low back pain (comments) Patient is her e for a f/u. Has #52 [place] and #7 Methadone remaini ng - on track. Medications are effe ctive at relieving pain without SE. Krys's pain has been stable since last visit. 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 She is currently on medication for it an d plans to conitnue it until she is cured. She is not interested in PT or procedure orde rs at the moment. No other concerns today low back pain Severity level is 6. Duration: chronic. The problem is stable. I t occurs persistently. Location of pain is lower back and gluteal area.The patient kyle cribes the pain as an ache, burning and sh diana. Symptoms are aggravated by ascend ing stairs, bending, descending stairs, s itting, twisting, walking and prolonged positi oning. Symptoms are relieved by lying do wn, over the counter medication, pain med s/drugs, rest and changing positions. low back pain (comments) Krys is here for follow up and medications refill. Presents wit h #75 norco and #19 methadone-- a surplu s of both. Reports current medication r egimen provides 95% pain relief. Denies side effects from current medication regimen. Pain is stable with her current regimen. Sta renuka she broke two of her left toes 2 months a go-- some lingering pain but gradually improv ing and returning to baseline. Is accompa nied by her today who contributes to h er care. No other concerns at today's OV. low back pain Duration: chronic. T he problem is stable. It occurs intermittentl y. Location of pain is gluteal area.There i s no radiation of pain. The patient describe s the pain as an ache and sharp. Symptoms are aggravated by ascending stairs, descending s tairs, running, twisting, walking and housewor k. Symptoms are relieved by ice, pain meds/dr ugs, rest, sitting and changing positions. low back pain (comments) Yola is here f or follow up and medications refill. Presents wit #7 methadone, #34 [place] - on track. Reports current medication regimen provides 85% pain relief. Denies side effects from current medication regimen. Pain is fluctuating. Back pain is slightly flared this month. Prescrib ed medications continue to be helpful for pa in relief. Has presented to PT for a few sess ions - does not think it helped her pain. Enrique reza, diarrhea has resolved since disco ntinuing simvastatin. Presents with her lilly thomas, who contributes to today's OV. low back pain Severity level is 4. Duration: chronic. The problem is fluctuati ng. It occurs persistently. Locati on of pain is lower back and gluteal area.The re is no radiation of pain. The patient de scribes the pain as an ache, burning and sh diana. Symptoms are aggravated by ascend ing stairs, bending, descending stairs, l ifting, sitting, standing, twisting, walking, prolonged positioning and hous ework. Symptoms are relieved by ice, lyi ng down, pain meds/drugs and changing positio ns. low back pain (comments) Yola is here fo r follow up and medication refill. Has #14 meth adone and #64 norco remaining-on track/s urplus. The patient states the current m edication regimen continues to be effe ctive at reducing pain without SE. Pain is stable. Her back pain has been a little better with the warmer weather. She c/o nausea and d iarrhea lasting 11 days. She saw her doctor o n Thursday and he had her get off the simvasti n and change her diet. She was told they do n't do stool samples until it has gone on for 2 weeks. No other concerns today. low back pain Severity level is 4. Duration: chronic. The problem is stable. I t occurs intermittently. Location of pain is lower back. Pain is radiated to the righ t ankle.The patient describes the pain a s an ache and burning. Symptoms are aggrava sudhir by bending, daily activities, lifting and prolonged positioning. Symptom s are relieved by ice, lying down, pain med s/drugs, sitting and changing positions. low back pain (comments) Krys is here for follow up and medication refill. Has #9 metha done and #161 norco remaining-surplus. T he patient states the current medication r egimen continues to be effective at reducin g pain without SE. Pain is fluctuating. She did see some improvement for awhile, however her back pain has been worse the last few d ays with the weather. She is trying to take le ss norco, which is why she has such a surpl us. She is having a cataract surgery michael . They are planning a trip up [place] in [facility]. No other concerns today. low back pain Severity level is 4. Duration: chronic. The problem is changing in character. It occurs intermittently. Loca tion of pain is lower back. Pain is radiat ed to the right foot.The patient describes th e pain as an ache, burning and sharp. S ymptoms are aggravated by ascending stairs, be nding, daily activities, descending stairs, l ifting, sitting, twisting, walking an d prolonged positioning. Symptoms are relieve d by ice, lying down, pain meds/drugs, str etching, rest, sitting and changing positio ns. low back pain (comments) Yola is here fo r follow up and medication refill. Has #139 nor co and #11 methadone remaining-on track. The patient states the current medication r egimen continues to be effective at reducin g pain without SE. Pain has been stable. Con tinues to have back pain but it is maintained with medication. She has been taking #2 gabap entin at night as they make her drowsy. No other concerns today. low back pain Severity level is 4. Duration: chronic. The problem is stable. I t occurs persistently. Location of pain is lower back.The patient describes the pain a s an ache, burning and sharp. Symptoms are aggravated by ascending stairs, bending, rosalind ly activities, descending stairs, lifting, sta nding, twisting, walking and prolonged positi oning. Symptoms are relieved by ice, lyi ng down, pain meds/drugs, rest and sitting. low back pain Severity level is 4. Duration: chronic. The problem is stable. I t occurs persistently. Location of pain is lower back. Pain is radiated to the righ t foot.The patient describes the pain a s an ache, burning and sharp. Symptoms are aggravated by ascending stairs, bending, rosalind ly activities, descending stairs, standing, tw isting, walking and prolonged positionin g. Symptoms are relieved by ice, lying down, pain meds/drugs and changing positions. low back pain (comments) Yola is here fo r follow up and medication refill. Has #13 norc o and #7 methadone remaining-on track, she has not picked up her second script of nor co yet. The patient states the current m edication regimen continues to be effe ctive at reducing pain without SE. Reports her back is feeling worse and she is wondering if there is anything else she could try. She continues to do her at home exercises. S he is not going to do any more injections with Dr. Comer as they don't help. She is wanting to start the gabapentin again but needs the instructions to increase. The lyrica was never approved by insurance. They had a quite hor rible trip to [place]. No other concerns today . low back pain Severity level is 4. Duration: chronic. The problem is worsening . It occurs persistently. Location of pain is lower back. Pain is radiated to the righ t foot.The patient describes the pain a s an ache, burning and sharp. Symptoms are aggravated by ascending stairs, bending, kyle cending stairs, sitting, standing and walking . Symptoms are relieved by ice, lying down, pain meds/drugs, rest, sitting and changing positions. low back pain (comments) Yola is here fo r follow up and medication refill. She has #100 [place] and #5 methadone remaining-surplus. T he patient states the current medication r egimen continues to be effective at reducin g pain without SE. She got an injetion from [facility] and it did not provide any relief f or her. She went to see her spine surgeon wh o discussed surgery with her. She tried gabap entin and reports she was very drowsy on it. S he may be interested in trying Lyrica. No ot her concerns today. low back pain (comments) Patient is here for f/u. Patient has #104 [place] and #10 methad one remaining - on track. Patient reports 50% pain relief with meds. Patient is stable on these medications. Pt reports medication r egimen is effective at controlling her test carrier audie low back pain. Continues her daily PT exercises. She does injections at [facility]. I s going to [place] in November. No other concerns to day. low back pain Duration: chronic. T he problem is fluctuating. It occu rs persistently. Location of pain is lower papa k.The patient describes the pain as an ache and sharp. Symptoms are aggravated by bendin g, lifting, sitting, walking and housewor k. Symptoms are relieved by ice, lying down, pain meds/drugs and changing positions. low back pain (comments) Krys is here today for follow up evaluation and medication refil ls relating to her low back pain. She has # 8 methadone and #94.5 [place] remaining - on track/surplus. The patient reports feel ing about the same with no significant chavez es. She followed up with Dr. Comer who recomm ended back surgery but she is not intersted in pursuing this option at this time. The glynn moya states the current medication regimen c ontinues to be effective for reducing pain. S he expresses some interest in SCS. She will be going to [place] in November. The charlene ent states gabapentin has caused some drowsine ss. No other concerns today. low back pain Severity level is se ana maria. Duration: chronic. The problem is stabl e. It occurs intermittently. Loca tion of pain is lower back, left shoulder and right foot.The patient describes th e pain as an ache, burning and sharp. S ymptoms are aggravated by ascending stairs, be nding, lifting, standing, twisting and walking . Symptoms are relieved by ice, lying down, pain meds/drugs, rest and sitting. low back pain Severity level is mo derate-severe. Duration: chronic. The problem is changing in character. It occurs persistently. Location of pain is lower papa k, gluteal area and right foot.The patient kyle cribes the pain as an ache, burning and sh diana. Symptoms are aggravated by daily activities. Symptoms are relieved by ice, lyi ng down, pain meds/drugs, rest and sitting. low back pain (comments) Krys is here today for follow up evaluation and medication refil ls relating to her low back pain. She has # 71 [place] and #8 methadone remaining - on track . The patient states her back pain has been w orse lately. She updated her MRI and pursued an BOBO. She didn't receive any relief f rom her BOBO and is not interested in pursui ng surgery although it was recommended. She would like to start gabapentin. The charlene ent states the current medication regimen c ontinues to be effective for reducing pain. N o other concerns today. low back pain (comments) Krys is here today for follow up evaluation and medication refil ls relating to her low back pain. She has # 88.5 [place] and #19 methadone remaining - on track/surplus. She completed an lumbar BOBO with [facility] 2 weeks ago and has not experien adele any relief yet. The patient reports feel ing about the same with no significant chavez es. The patient states the current medicati on regimen continues to be effective for red ucing pain. She has not been doing any home exercises. No other concerns today. low back pain Severity level is mo derate-severe. Duration: chronic. The problem is fluctuating. It occurs persistently. Location of pain is lower back, left concha ulder and right foot.The patient describes th e pain as an ache and sharp. Symptoms are aggravated by ascending stairs, bending, rosalind ly activities, sitting, standing, twisting, walking and movement. Symptoms are relieve d by ice, lying down, pain meds/drugs and sitting. low back pain (comments) Krys is here today for follow up evaluation and medication refil ls relating to her low back pain. She has # 90 [place] and #19 methadone remaining - on track/surplus. She followed up with latoya rosa for a shoulder x-ray and states it showed that her surgery was not successful. She is n ot currently doing PT but continues home exerc ises/stretching. She will be following up with Dr. Comer for an BOBO. Her back pain is abo ut the same. She experiences occasion al radicular symptoms in her lower extremitie s after increased activity. The patien t states the current medication regimen c ontinues to be effective for reducing pain. N o other concerns today. low back pain low back pain (comments) Krys is here today for follow up evalutaion and medication refil ls relating to her low back pain. She has # 63 [place] and #12 methadone remaining - on track/surplus. Her shoulder pain has be en worse lately but states her neck pain has somewhat improved. She will be starting PT for her shoulder and will consider addres sing her neck as well. She will be followin g up with Dr. Comer next week for her back pa in. No other concerns today. low back pain Severity level is mo derate-severe. Duration: chronic. The problem is fluctuating. It occurs intermittentl y. Location of pain is lower back, left concha ulder and right foot.The patient describes th e pain as an ache and burning. Symptoms ar e aggravated by standing and walking. Symptom s are relieved by ice, lying down, pain med s/drugs, physical therapy and sitting. low back pain Severity level is mo derate. Duration: chronic. The problem is stable. It occurs intermittently. Loca tion of pain is lower back and gluteal are a.The patient describes the pain as an ache and burning. Symptoms are aggravated by standi ng and walking. Symptoms are relieved by lyin g down, pain meds/drugs and sitting. low back pain (comments) Krys is here today for follow up evaluation and medication refil ls relating to her low back pain. She has # 18 methadone and #45 [place] remaining - on track. She continues PT for her shoulder and has noticed some benefit. She had a l umbar BOBO at [facility] which has provided minimal relief to this point. The patient states t he current medication regimen continues to be effective for reducing pain. She C O trouble sleeping even when she uses Trazod one. She continues PT regularly. She will be going on a trip to [place] and [facility] this Summer. No other concerns today . low back pain Severity level is mo derate. Duration: chronic. The problem is stable. It occurs occasionally. Locati on of pain is lower back, neck and left should er. Pain is radiated to the right foot.The p atient describes the pain as an ache, burning and sharp. Symptoms are aggravated by standi ng and walking. Symptoms are relieved by sitt ing. low back pain (comments) Yola is here fo r f/u and medication refill. She presents with #8 7.5 [place] and #20 methadone. She notif ied us of medication fill for s/p left shoulde r surgery. Patient reports a hospitaliz ations from dehydration and pneumonia. She c ontinues with biking and walking in the pool for activity; plans to restart pool exercis es. Completes PT for left shoulder. Her analy d is present for today's visit. low back pain (comments) Krys is here today for follow up evaluation and medication refil ls relating to her low back pain. She has # 63 [place] and #7 methadone remaining - on track . She will be having shoulder surgery wit meggan Engle next week. She didn't rec eive significant relief from her shoulder in jection. Otherwise she feels about the same with no significant changes. No other co ncerns today. low back pain Severity level is mo derate. Duration: chronic. The problem is stable. It occurs persistently. Locati on of pain is lower back, left shoulder and ri ght ankle.The patient describes the pain a s an ache, burning and sharp. Symptoms are aggravated by daily activities. Symptoms are relieved by pain meds/drugs and rest. low back pain (comments) Krys is here today for follow up evaluation and medication refil ls relating to her low back pain. She has # 47 [place] and #8 methadone remaining - on track . She will be receiving a left shoulder inject ion tomorrow. She CO pain in her right foot an d follows up with podiatry regarding t his next week. Her back pain has improved. H er current medication regimen continues to be effective for her pain. She continues home exercise. No other concerns today. low back pain Severity level is mo derate-severe. Duration: chronic. The problem is worsening. It occurs persistently. Locati on of pain is lower back, right foot and left shoulder.The patient describes the pain a s an ache, burning and sharp. Symptoms are aggravated by daily activities, standing and walking. Symptoms are relieved by lyin g down, pain meds/drugs and sitting. low back pain Severity level is mo derate-severe. Duration: chronic. The problem is stable. It occurs occasionally. Locati on of pain is lower back and right foot.The p atient describes the pain as an ache and sharp . Symptoms are aggravated by standing and walk ing. Symptoms are relieved by lying do wn, pain meds/drugs and sitting. low back pain (comments) Yola is here to day for follow up evaluation and medication refil ls relating to her low back pain. She has # 31 [place], #22 methadone and #19 Trazodone re maining - on track. She will [place] going [place] this [place]. She has not noticed any relief from her BOBO yet. She just transi tioned to an E-cig. She continues home exerc ise. She has experiended good relief from her shoulder injection at [facility] so she has not f ollowed up with ortho. No other concerns today . low back pain Onset: gradual witho ut injury. Severity level is moderate. Duratio n: chronic. The problem is fluctuating. It o ccurs intermittently. Location of pain is lower back, gluteal area, left flank and right flank. Pain is radiated to the left thigh an d right thigh.The patient describes the pain a s an ache and sharp. Symptoms are aggrava sudhir by daily activities, sitting, standing an d walking. Symptoms are relieved by pain med s/drugs and rest. low back pain (comments) Here today for follow up evaluation and medication refill. C urrent pain medication regimen takes the ed ge off of her back pain. She saw a shoulder s urgeon and may need left shoulder surgery. Zoë simmons is currently going through PT. She cont inues her home exercises for her back. She an d her are going to [place] in [facility] and she will need to come in early for he r next visit. She has a small surplus of med s today. No other concerns. low back pain Onset: gradual witho ut injury. Severity level is moderate. Duratio n: chronic. The problem is fluctuating. It o ccurs intermittently. Location of pain is lower back, gluteal area, left flank and right flank. Pain is radiated to the left thigh an d right thigh.The patient describes the pain a s an ache, burning and sharp. Symptoms are aggravated by daily activities, sitting, standing and walking. Symptoms are relieve d by pain meds/drugs and rest. low back pain (comments) Here today for follow up evaluation and medication refill. C urrent pain medication regimen effective fo r back/leg pain relief. She has started PT a nd pool therapy and this is going well. Her p ain flare after her last epidural was relieve d with the medrol dose althea. She would like to hold on the stimulator for now. She saw Dr. Catalan for a second opinion and he recom mended she hold off on further surgery. Her is present today. No other conc erns. low back pain (comments) Here today for follow up evaluation and medication refill. C urrent pain medication regimen takes the ed ge off of her back pain. She has had a back p ain flare since she had her epidural at [facility] last Thursday. States this has not happened bef ore. She is interested in resuming PT. She als o has some interest in the neurostimulator. States that Dr. Comer would like to do mor e back surgery and she requests a second op ionion. Her is present today. No ot her concerns. low back pain Onset: gradual witho ut injury. Severity level is moderate. Duratio n: chronic. The problem is fluctuating. It o ccurs intermittently. Location of pain is lower back, gluteal area, left flank and right flank. Pain is radiated to the left thigh an d right thigh.The patient describes the pain a s an ache, burning and sharp. Symptoms are aggravated by daily activities, sitting, standing and walking. Symptoms are relieve d by pain meds/drugs. low back pain Onset: gradual witho ut injury. Severity level is moderate. Duratio n: chronic. The problem is fluctuating. It o ccurs intermittently. Location of pain is lower back, gluteal area, left flank and right flank. Pain is radiated to the left thigh an d right thigh.The patient describes the pain a s an ache and burning. Symptoms are aggrava sudhir by daily activities, sitting, standing an d walking. Symptoms are relieved by pain med s/drugs. low back pain (comments) Here today for follow up evaluation and medication refill. C urrent pain medication regimen has been eff ective for her low back and right foot pain. Continues her home exercises. She is on track with her medication count tod ay. She has a lumbar epidural injection s cheduled with Dr. Comer for 05/23/14. Her rig ht foot has been more painful and her orth o MD ordered a foot Xray which was normal. He r foot is still painful and more swollen and he is going to repeat her foot Xray on 05/01 07/14. Her is present today. No ot her concerns. low back pain (comments) Here today for follow up evaluation and medication refill. C urrent pain medication regimen effective fo r back pain relief. She did not get the epid ural to her left lumbar area and the effects of the lumbar epidural to her right side ar e wearing off. She is going to talk to Dr. Comer about this. She has not done PT for her lumbar area for many years and is interes sudhir in doing this again. She is not performin g any home exercises right now. Her husba nd is present today. low back pain Onset: gradual witho ut injury. Severity level is moderate. Duratio n: chronic. The problem is fluctuating. It o ccurs intermittently. Location of pain is lower back, gluteal area, left flank and right flank. Pain is radiated to the left thigh an d right thigh.The patient describes the pain a s an ache and sharp. Symptoms are aggrava sudhir by daily activities, sitting, standing an d walking. Symptoms are relieved by pain med s/drugs. Back Pain (comments) Here today for foll ow up evaluation. Had a right lumbar epidura l injection by [facility] recently and had goo d pain relief. Now has increased pain on th e left lumbar area going into the left leg an d is going to have an injection on the lef t side. She is considering the neur ostimulator. Dr. Comer started Robaxin for muscle relaxant and the patient is finding t his helpful. Her is present today. Back Pain Onset: gradual witho ut injury. Severity level is moderate. Duratio n: chronic. The problem is fluctuating. It o ccurs intermittently. Location of pain is lower back, gluteal area, left flank and right flank. Pain is radiated to the left thigh an d right thigh.The patient describes the pain a s an ache, burning and sharp. Symptoms are aggravated by daily activities. Symptoms are relieved by pain meds/drugs. Functional Status Date Functional Assessment No Information Instructions Date Instruction Additional Informati on Continue current medication Reviewed medications Follow exercise program Medications counted, patient has a surpl Continue current medication Reviewed medications Follow exercise program Reviewed medications Continue current medication Reviewed medications Follow exercise program Continue current medication Reviewed medications Medications counted, patient is on track . Medications counted, patient is on track . Medications counted, patient is on track . Continue current medication Continue current medication Assessments Type Assessment Date assessment Drug induced constipation assessment Rheumatoid arthritis impression Review of 2020 records from [facility] review her history of rheumatoid arthritis. assessment Pain in right hip impression R hip pain also stable. Benefit with rec ent bursa injection through ortho assessment Pain in left shoulder impression Ongoing L shoulder pain; following up wi th Dr. Weaver who performs her shoulder injections. Stable today. Reduced should pain with injections, current pain medic ation regimen and shoulder PT at home. assessment Pain in left knee impression Ongoing left knee pain - following with ortho regarding this. Stable today assessment Pain in right ankle and joints of right foot impression R ankle/foot pain also stable. Pain flar es with walking assessment Other spondylosis, cervical region Sep-0 impression History of ongoing neck pain. Stable tod ay. Reduced neck pain with current pain medication regimen and home PT exercises. C7-T1 IESI completed 07/23/21 with 60% re lief.05/09/21 MRI shows C7-T1, C6-7, C5-6 and C4-5 disc degenera tion with a mild mid cervical kyphosis. 2-3 mm left paracentr al disc protrusion at C4-5 with left ventral cord flattening. Moderate narrowing of the central canal at C3-4 with a 2-3 mm midline disc protrusion and mild cord compression. Fo raminal stenosis on the left, severe at C6-7 and mild to mod erate at multiple levels. Severe foraminal stenosis on the right at C5-6, C4-5 and C3-4 with moderate facet arthropathy at C4-5 and C3-4. assessment Other spondylosis, lumbar region 2021 impression Continues to have back pain flares with increased activity. Currently stable. Reduced lumbar pain wi th current medication regimen and home PT exercises. Failed bertha mbar BOBO's.Lumbar surgery/injections per Dr. Comer. assessment Radiculopathy, cervical region impression History of ongoing neck pain. Stable tod ay assessment Postlaminectomy syndrome, not elsewhere classified impression Krys returns with chronic back pain wh ich is stable currently. PSH of L2-L5 fusion by Dr. Dashawn rob. SCS trial has been recommended, but pt. is not interes sudhir at this time. Also has a history of cervical surgery. assessment half-way (current) use of opiate analge sic impression Current treatment plan increases the pat ient's daily activity level and quality of life. Encouraged pa griffin to participate in alternative therapies, conservative m easures, and follow a healthy lifestyle.Patient has been manag ing medications well with no signs of abuse or oversedation, and is appropriate to continue with opioid use. Last UDT resul ts reviewed and appropriate. MNPMP queued and does not s how any Rx from outside providers. At 50 MME.Tried and f armen gabapentin and lyrica. Not on medical cannabis. Ordered TENs unit for back pain. Sent back due to cost. May conside r PACT program in the future.Current treatment plan including injections, home PT exercises and pain medication regimen al lows patient to perform daily activities and enhances he r quality of life.PT summer 2020. PT with Madhav summer 2021 .The current chronic pain treatment plan including assessment of need for physical therapy, pain psychology, pain medicatio ns, referrals to other specialists, injections, spinal cord sti mulation, and medical cannabis has decreased patient's chronic pain level and has enhanced the patient's quality of life. assessment Encounter for therapeutic drug level kristi quintana Mental Status Date Cognitive Assessment Orientation - Oriented to ti me, place, person, situation.Normal Orientation Patient Care Teams Name Effective Dates (start - stop) Status M wade No Information
--- OUTSIDE RECORDS SUMMARY | 2021-11-12 14:46 | XMS_ITS | Encounter Summary ---
:1950 Author Organization [place] Address [facility] [place] [address] Care Team Providers Name Role Phone Idalmis Sloan Primary Care Provider Ana Jacobs PA-C Unavailable Encounter Details Date Type Department Care Team Description 11/19/2020 Travel Social History Tobacco Use Types Packs/Day Years Used Date Never Smoker Smokeless Tobacco: Never Used Sex Assigned at Date Recorded Not on file COVID-19 Exposure Response Date Recorded In the last month, have you been in contact with No / Unsure 11/19/2020 3:07 PM CDT someone who was confirmed or suspected to have Coronavirus / COVID-19? documented as of this encounter Plan of Treatment Not on filedocumented as of this encounter Visit Diagnoses Not on filedocumented in this encounter Care Teams Automotive Upholsterer Relationship Specialty Start Date End Date Idalmis Sloan PCP - General Family Practice 11/04/13 Ana Jacobs PA-C Assigned Neuroscience 11/04/20 12/01/20 [facility] Provider [id number] [id number] documented as of this encounter
--- OUTSIDE RECORDS SUMMARY | 2021-11-12 14:46 | XMS_ITS | Clinical Summary ---
:1950 Author Organization [place] Address [facility] [place] [address] Care Team Providers Name Role Phone Idalmis Sloan Primary Care Provider Madhav Matute MD Unavailable Allergies Active Allergy Reactions Severity Noted Date Comments Augmentin Diarrhea, Hives 07/12/2012 Doxycycline Diarrhea 11/06/2017 Lorazepam Anxiety, Other (See Low 01/05/2009 Other re action(s): Loopy Comments) Morphine Anaphylaxis, Shortness Of High 07/12/2012 Breath Quinolones 01/05/2009 Other reaction( s): Confusion, Loop y Sulfa Drugs Hives 07/12/2012 Medications Medication Sig Dispensed Refills Start Date End Date Status traZODone (DESYREL) Take 50 mg by mouth 0 Active 50 MG tablet nightly as needed for sleep simvastatin (ZOCOR) Take 10 mg by mouth 0 Active 20 MG tablet every other day At PM albuterol (PROAIR Inhale 2 puffs into 0 Active HFA/PROVENTIL the lungs every 4 HFA/VENTOLIN HFA) 108 hours as needed for (90 Base) MCG/ACT shortness of breath inhaler / dyspnea or wheezing methadone (DOLOPHINE) Take 5 mg by mouth 0 Active 5 MG tablet 2 times daily multivitamin Take 1 tablet by 0 Active w/minerals mouth daily (THERA-VIT-M) tablet Calcium Take 1 tablet by 0 Act sung Carbonate-Vitamin D mouth 2 times daily (CALCIUM-CARB 600 + D PO) esomeprazole (NEXIUM) Take 20 mg by mouth [address] capsule daily Take 30-60 minutes before eating. HYDROcodone-acetamino Take 1 tablet by 0 Active phen (NORCO) 5-325 MG mouth 3 times daily tablet as needed for severe pain diclofenac (VOLTAREN) Apply 2-4 g 0 12/06/2020 Active 1 % topical gel topically 2 times daily as needed methocarbamol Take 2 tablets by 0 11/15/2020 Active (ROBAXIN) 500 MG mouth 2 times daily tablet as needed latanoprost (XALATAN) Place 1 drop into 0 09/06/2020 Active 0.005 % ophthalmic both eyes At solution Bedtime montelukast Take 1 tablet by 0 10/18/2020 Active (SINGULAIR) 10 MG mouth At Bedtime tablet spironolactone Take 25 mg by mouth 0 11/27/2020 Active (ALDACTONE) 25 MG every morning tablet furosemide (LASIX) 40 Take 40 mg by mouth 0 Active MG tablet daily WIXELA INHUB 250-50 Inhale 1 puff into 0 10/29/2020 Active MCG/DOSE inhaler the lungs daily potassium chloride ER Take 40 mEq by 0 Active (KLOR-CON M) 10 MEQ mouth daily CR tablet olopatadine (PATANOL) Place 1 drop into 0 Active 0.1 % ophthalmic both eyes 2 times solution daily as needed for allergies polyethylene glycol Take 17 g by mouth 510 g 0 12/18/2020 Active (MIRALAX) 17 GM/Dose 2 times daily as powder needed for constipation senna-docusate Take 1 tablet by 0 12/18/2020 Active (SENOKOT-S/PERICOLACE mouth 2 times daily ) 8.6-50 MG tablet as needed for constipation Active Problems Patient Care Coordination Note Formatting of this note might be differe nt from the original. 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 Provider to review and confirm. Social History Tobacco Use Types Packs/Day Years Used Date Never Smoker Smokeless Tobacco: Never Used Sex Assigned at Date Recorded Not on file Last Filed Vital Signs Vital Sign Reading Time Taken Comments Blood Pressure 142/86 12/18/2020 11:03 AM CDT Pulse 85 12/18/2020 11:03 AM CDT Temperature 36.6 ??C (97.9 ??F) 12/18/2020 11:03 AM CDT Respiratory Rate 16 12/18/2020 11:03 AM CDT Oxygen Saturation 97% 12/18/2020 11:03 AM CDT Inhaled Oxygen Concentration - - Weight 65.1 kg (143 lb 8 oz) 12/17/2020 2:57 AM CDT Height 152.4 cm (5') 12/17/2020 2:57 AM CDT Body Mass Index 28.03 12/17/2020 2:57 AM CDT Plan of Treatment Health Maintenance Due Date Last Done Comments ADVANCE CARE PLANNING 1950 ANNUAL REVIEW OF HM ORDERS 1950 CT COLONOGRAPHY 1950 DEXA 1950 FIT-DNA (Cologuard) 1950 FIT 1950 FLEX SIG 1950 MAMMO SCREENING 1950 COLONOSCOPY 1960 COLORECTAL CANCER SCREENING 1960 HEPATITIS C SCREENING 1968 LIPID 06/10/1995 ZOSTER IMMUNIZATION (2 of 01/06/2012 11/11/2011 3) FALL RISK ASSESSMENT 06/10/2015 MEDICARE ANNUAL WELLNESS 06/10/2015 VISIT Pneumococcal Vaccine: 65+ 05/12/2016 08/02/2014, 05/13/2011 Years (3 - PPSV23 or PCV20) DTAP/TDAP/TD IMMUNIZATION 05/10/2020 05/10/2010, 08/18/1994 (2 - Td or Tdap) PHQ-2 (once per calendar 03/02/2021 year) COVID-19 Vaccine (3 - 04/17/2021 11/15/2020, 10/25/2020 Booster for Pfizer series) INFLUENZA VACCINE (#1) 2021 01/04/2021, 11/09/2019, 12/02/2018, Additional history exists HEPATITIS B IMMUNIZATION Aged Out No long er eligible based on patient 's age to complete this topic IPV IMMUNIZATION Aged Out No longer eligi ble based on patient 's age to complete this topic MENINGITIS IMMUNIZATION Aged Out No longe r eligible based on patient 's age to complete this topic Insurance Payer Benefit Plan / Subscriber ID Effective Phone Address T ype Group Dates WORK COMP WC OTHER [id number] 2010-Pres [phone] [phone] [place] [address] [facility] [id number] 2018-Pres [phone] [address] [facility] [facility] [address] [place] [phone] [id number] 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 1950 [phone] [id number] Compensation 9 (Home) [facility] [address] [place] [address] Advance Directives For more information, please contact: [phone] Latest Code Status on File Code Status Date Activated Date Inactivated Comments Full Code 12/17/2020 2:45 AM 12/18/2020 4:31 PM All basic and advanced life-sustaining interventions are performed as cachorro ropriate Code status determined by: Discussion with patient/ legal de cision maker Full Code 11/06/2018 8:23 AM 12/16/2020 8:28 PM Code status determined by: Discussion with patient/legal dec ision maker Full Code 11/04/2018 9:50 PM 11/06/2018 8:23 AM Code status determined by: Discussion with patient/legal dec ision maker Care Teams Wringer Operator Relationship Specialty Start Date End Date Idalmis Sloan PCP - General Family Practice 11/04/13 Madhav Matute MD Assigned Neuroscience 12/02/20 [id number] [place] [address] [id number]
--- OUTSIDE RECORDS SUMMARY | 2021-11-12 14:46 | XMS_ITS | Encounter Summary ---
:1950 Author Organization [place] Address [address] [facility] [place] [address] Care Team Providers Name Role Phone LeviIdalmis stahl Primary Care Provider Madhav Matute MD Unavailable Encounter Details Date Type Department Care Team Description 01/15/2021 Medical Correspondence [facility] Scan, PHYSICAL THERAPY Health Info Mgmt Non-Provider ORDER [facility] [address] [place] [address] Social History Tobacco Use Types Packs/Day Years Used Date Never Smoker Smokeless Tobacco: Never Used Sex Assigned at Date Recorded Not on file documented as of this encounter Plan of Treatment Not on filedocumented as of this encounter Visit Diagnoses Not on filedocumented in this encounter Care Teams Certified Surgical Tech/First Assistant Relationship Specialty Start Date End Date Idalmis Sloan PCP - General Family Practice 11/04/13 Madhav Matute MD Assigned Neuroscience 12/02/20 [id number] MARYANA BEGUM Provider [address] [place] [address] documented as of this encounter
--- OUTSIDE RECORDS SUMMARY | 2021-11-12 14:46 | XMS_ITS | Encounter Summary ---
:1950 Author Organization [place] Address [address] [facility] [place] [address] Care Team Providers Name Role Phone LeviIdalmis stahl Primary Care Provider Madhav Matute MD Unavailable Encounter Details Date Type Department Care Team Description 05/14/2021 Medical Correspondence [facility] Scan, PHYSICAL THERAPY Health Info Mgmt Non-Provider ORDER [facility] [address] [place] [address] Social History Tobacco Use Types Packs/Day Years Used Date Never Smoker Smokeless Tobacco: Never Used Sex Assigned at Date Recorded Not on file documented as of this encounter Plan of Treatment Not on filedocumented as of this encounter Visit Diagnoses Not on filedocumented in this encounter Care Teams Construction Inspector Relationship Specialty Start Date End Date Idalmis Sloan PCP - General Family Practice 11/04/13 Madhav Matute MD Assigned Neuroscience 12/02/20 [id number] MARYANA BEGUM Provider [address] [place] [address] documented as of this encounter
--- OUTSIDE RECORDS SUMMARY | 2021-11-12 14:46 | XMS_ITS | Encounter Summary ---
:1950 Author Organization [place] Address [facility] [place] [address] Care Team Providers Name Role Phone Idalmis Sloan Primary Care Provider Madhav Matute MD Unavailable Reason for Visit Reason Comments Diarrhea Auth/Cert Specialty Diagnoses / Procedures Referred By Contact Refer red To Contact Med Surg Diagnoses Constipation Generalized muscle weakness Coronary artery calcification Stercoral colitis Constipation with Fecal impaction Constipation Stercoral colitis Coronary artery calcification Generalized muscle weakness Observation Dept [address] [place], [place] [address] Phone: Referral ID Status Reason Start Date Expiration Date Visits Requ ested Visits Authorized [id number] 1 1 Encounter Details Date Type Department Care Team Description 12/16/2020 - [facility] Caleb Dawn PA-C [facility] [address] [place], [place] [address] Constipation with Fecal impaction; 12/18/2020 [facility] Observation Amando Ross MD [facility] [address] [place] [address] Stercoral colitis; Dept Lisandro Crawford MD [address] [place], [place] [id number] Coronary artery calcification; [address] Generalized muscle [place] [address] Social History Tobacco Use Types Packs/Day Years Used Date Never Smoker Smokeless Tobacco: Never Used Sex Assigned at Date Recorded Not on file COVID-19 Exposure Response Date Recorded In the last month, have you been in contact with No / Unsure 11/19/2020 3:07 PM CDT someone who was confirmed or suspected to have Coronavirus / COVID-19? documented as of this encounter Last Filed [...] Mass Index 28.03 12/17/2020 2:57 AM CDT documented in this encounter Discharge Summaries Uma Brar PA-C - 12/18/2020 10:20 AM CDT [facility] Hospitalist Discharge Summary Date of Admission: 12/16/2020 Date of Discharge: 12/18/2020 2:20 PM Discharging Provider: Uma Brar PA-C Discharge Diagnoses Constipation with fecal impaction Overflow diarrhea Stercoral colitis Follow-ups Needed After Discharge Follow-up Appointments Follow-up and recommended labs and tests Follow up with primary care provider, IDLAMIS SLOAN, within 7 days for hospital follow- up. No follow up labs or test are needed. Recommend taking 1-2 tablets of Senna once daily. You can increase this to BID if needed. You can also add Miralax once or twice daily for constipation. Unresulted Labs Ordered in the Past 30 Days of this Admission No orders found from 11/16/2020 to 12/17/2020. These results will be followed up by PCP Discharge Disposition Discharged to home Condition at discharge: Stable Hospital Course Krys Mosher is a 70 year old female with a PMHx significant for HTN, HLP, PVD, Charcot's arthropathy, GERD, chronic back pain with chronic opioid use, who was admitted on 12/16/2020 with constipation, fecal impaction and overflow diarrhea. Her lab work up in the ED was fairly unremarkable. CT of the abs/pelvis shows constipation with fecal impaction and perirectal inflammatory changes consistent with stercoral colitis. She was given an enema and Relistor in the ED and disimpacted. She had good results with this. She was admitted to OBS for further supportive cares. She was initially started on Movantik and Miralax. After further discussion, pt denies chronic issues with constipation despite chronic narcotic use so Movantik was stopped. She continued to have loosestools and rectal pain so further stool softeners were held. Her strength and pain improved overnight and stooling slowed down. A bowel regimen of senna and miralax was recommended on discharge. It is recommended that she start with senna 1-2 times daily and add miralax 1-2 times daily as needed for constipation. She will follow up with PCP for further recommendations. If constipation becomes more chronic, may reconsider medication like Movantik. Covid-19 negative Consultations This Hospital Stay None Code Status Full Code Time Spent on this Encounter I, Uma Brar PA-C, personally saw the patient today and spent greater than 30 minutes discharging this patient. Uma Brar PA-C [facility] [address] [facility] [address] Physical Exam Vital Signs: Temp: 97.6 ??F (36.4 ??C) Temp src: Oral BP: 127/73 Pulse: 80 Resp: 20 SpO2: 94 % O2 Device: None (Room air) Oxygen Delivery: 2 LPM Weight: 143 lbs 8 oz GENERAL: Comfortable. PSYCH: pleasant, oriented, No acute distress. HEART: Normal S1, S2 with no murmur, no pericardial rub, gallops or S3 or S4. LUNGS: Clear to auscultation, normal Respiratory effort. No wheezing, rales or ronchi. GI: Soft, normal bowel sounds. Non-tender, non distended. EXTREMITIES: Able to ambulate in hallway with walker SKIN: Dry to touch, No rash, wound or ulcerations. NEUROLOGIC: Grossly intact Primary Care Physician IDALMIS SLOAN Discharge Orders Reason for your hospital stay Severe constipation with fecal impaction in the rectum with overflow diarrhea. Constipation resolved with an enema and one dose of Relistor. You did have some rectal discomfort afterwards, this is likely due to some inflammation of the colon due to the impacted stool. This will improve with time. A bowel regimen was recommended on discharge. Follow-up and recommended labs and tests Follow up with primary care provider, IDALMIS SLOAN, within 7 days for hospital follow- up. No follow up labs or test are needed. Recommend taking 1-2 tablets of Senna once daily. You can increase this to BID if needed. You can also add Miralax once or twice daily for constipation. Activity Your activity upon discharge: activity as tolerated When to contact your care team Call your primary doctor if you have any of the following: temperature greater than 101, increased pain, increased constipation or blood in stool. Diet Follow this diet upon discharge: Regular Significant Results and Procedures Most Recent 3 CBC's:Recent Labs Lab Test 12/18/2061612/16/20213711/05/18 0642 WBC 7.8 11.1* 8.8 HGB 12.2 14.6 12.3 MCV 105* 103* 101* PLT 231 259 191 Most Recent 3 BMP's:Recent Labs Lab Test 12/18/2071712/18/2017 12/16/20213711/05/18 1727 11/05/18 0642 11/05/18 0642 NA -- 139 134 -- -- 137 POTASSIUM -- 3.8 4.1 3.8 < > 3.3* CHLORIDE -- 107 100 -- -- 101 CO2 -- 27 27 -- -- 30 BUN -- 4* 4* -- -- 7 CR -- 0.54 0.55 -- -- 0.79 ANIONGAP -- 5 7 -- -- 6 SERG -- 8.4* 8.9 -- -- 8.2* GLC 107* 66* 89 -- -- 84 < > = values in this interval not displayed. Most Recent 2 LFT's:Recent Labs Lab Test 12/16/20213711/04/18 0000 AST 23 33 ALT 43 53.0 ALKPHOS 89 -- BILITOTAL 0.7 -- Most Recent TSH and T4:Recent Labs Lab Test 12/16/202137 TSH 0.41 Most Recent 6 glucoses:Recent Labs Lab Test 12/18/20 0718 12/18/20 0617 12/16/20213711/05/18 0642 11/04/18 1635 11/04/18 0000 GLC 107* 66* 89 84 74 107* , Results for orders placed or performed during the hospital encounter of 12/16/20 Abd/pelvis CT, IV contrast only TRAUMA / AAA Narrative EXAM: CT ABDOMEN PELVIS W CONTRAST LOCATION: [facility] DATE/TIME: 12/16/2020 11:23 PM INDICATION: Diverticulitis suspected, bowel obstruction suspected. COMPARISON: None. TECHNIQUE: CT scan of the abdomen and pelvis was performed following injection of IV contrast. Multiplanar reformats were obtained. Dose reduction techniques were used. CONTRAST: 78 mL Isovue-370. FINDINGS: LOWER CHEST: Discoid atelectasis. Normal size heart. No pericardial effusion. Mitral annular calcifications. HEPATOBILIARY: Normal. PANCREAS: Normal. SPLEEN: Normal. ADRENAL GLANDS: Normal. KIDNEYS/BLADDER: No bowel obstruction, colitis, diverticulitis, or appendicitis. BOWEL: Large volume retained feces in the rectal vault. Small amount of presacral and perirectal fatstranding. Diverticulosis. No diverticulitis, obstruction, or appendicitis. LYMPH NODES: Normal. VASCULATURE: No aneurysm. Tortuous atherosclerotic aorta. PELVIC ORGANS: Absent uterus. MUSCULOSKELETAL: Posterior fusion L2-L5. Impression IMPRESSION: 1. Constipation with fecal impaction. 2. Perirectal inflammatory change, correlate to exclude stercoral colitis. Recommend follow-up to resolution. No organized fluid collection. 3. Diverticulosis. No diverticulitis. 4. Coronary artery disease and atherosclerotic vascular disease. Discharge Medications Current Discharge Medication List START taking these medications Details polyethylene glycol (MIRALAX) 17 GM/Dose powder Take 17 g by mouth 2 times daily as needed for constipation Qty: 510 g, Refills: 0 CONTINUE these medications which have NOT CHANGED Details Calcium Carbonate-Vitamin D (CALCIUM-CARB 600 + D PO) Take 1 tablet by mouth 2 times daily diclofenac (VOLTAREN) 1 % topical gel Apply 2-4 g topically 2 times daily as needed esomeprazole (NEXIUM) [address] capsule Take 20 mg by mouth daily Take 30-60 minutes before eating. furosemide (LASIX) 40 MG tablet Take 40 mg by mouth daily HYDROcodone-acetaminophen (NORCO) 5-325 MG tablet Take 1 tablet by mouth 3 times daily as needed forsevere pain latanoprost (XALATAN) 0.005 % ophthalmic solution Place 1 drop into both eyes At Bedtime methadone (DOLOPHINE) 5 MG tablet Take 5 mg by mouth 2 times daily methocarbamol (ROBAXIN) 500 MG tablet Take 2 tablets by mouth 2 times daily as needed montelukast (SINGULAIR) 10 MG tablet Take 1 tablet by mouth At Bedtime multivitamin w/minerals (THERA-VIT-M) tablet Take 1 tablet by mouth daily olopatadine (PATANOL) 0.1 % ophthalmic solution Place 1 drop into both eyes 2 times daily as needed for allergies potassium chloride ER (KLOR-CON M) 10 MEQ CR tablet Take 40 mEq by mouth daily senna-docusate (SENOKOT-S/PERICOLACE) 8.6-50 MG tablet Take 1 tablet by mouth 2 times daily as needed for constipation simvastatin (ZOCOR) 20 MG tablet Take 10 mg by mouth every other day At PM spironolactone (ALDACTONE) 25 MG tablet Take 25 mg by mouth every morning traZODone (DESYREL) 50 MG tablet Take 50 mg by mouth nightly as needed for sleep WIXELA INHUB 250-50 MCG/DOSE inhaler Inhale 1 puff into the lungs daily albuterol (PROAIR HFA/PROVENTIL HFA/VENTOLIN HFA) 108 (90 Base) MCG/ACT inhaler Inhale 2 puffs into the lungs every 4 hours as needed for shortness of breath / dyspnea or wheezing Comments: Pharmacy may dispense brand covered by insurance (Proair, or proventil or ventolin or generic albuterol inhaler) STOP taking these medications diphenoxylate-atropine (LOMOTIL) 2.5-0.025 MG tablet Comments: Reason for Stopping: saccharomyces boulardii (FLORASTOR) 250 MG capsule Comments: Reason for Stopping: Allergies Allergies Allergen Reactions ??? Morphine Anaphylaxis and Shortness Of Breath ??? Augmentin Diarrhea and Hives ??? Doxycycline Diarrhea ??? Quinolones Other reaction(s): Confusion, Loopy ??? Sulfa Drugs Hives ??? Lorazepam Anxiety and Other (See Comments) Other reaction(s): Loopy Associated attestation - Ayan Lopez MD - 12/25/2020 2:03 PM CDT Physician Attestation I, Ayan Lopez MD, have reviewed and discussed with the advanced practice provider their discharge plan for Krys Mosher. I did not participate in a shared visit by interviewing or examining the patient and this should be billed as an advanced practice provider only discharge. Ayan Lopez Date of Service (when I saw the patient): I did not personally see this patient today. documented in this encounter Medications at Time of Discharge Medication Sig Dispensed Refills Start Date End Date albuterol (PROAIR Inhale 2 puffs into 0 HFA/PROVENTIL the lungs every 4 HFA/VENTOLIN HFA) 108 (90 hours as needed for Base) MCG/ACT inhaler shortness of breath / dyspnea or wheezing Calcium Carbonate-Vitamin Take 1 tablet by mouth 0 D (CALCIUM-CARB 600 + D 2 times daily PO) esomeprazole (NEXIUM) 20 Take 20 mg by mouth [address] capsule daily Take 30-60 minutes before eating. HYDROcodone-acetaminophen Take 1 tablet by mouth 0 (NORCO) 5-325 MG tablet 3 times daily as needed for severe pain methadone (DOLOPHINE) 5 Take 5 mg by mouth 2 0 MG tablet times daily multivitamin w/minerals Take 1 tablet by mouth 0 (THERA-VIT-M) tablet daily simvastatin (ZOCOR) 20 MG Take 10 mg by mouth 0 tablet every other day At PM traZODone (DESYREL) 50 MG Take 50 mg by mouth 0 tablet nightly as needed for sleep diclofenac (VOLTAREN) 1 % Apply 2-4 g topically 0 12/06/2020 topical gel 2 times daily as needed furosemide (LASIX) 40 MG Take 40 mg by mouth 0 tablet daily latanoprost (XALATAN) Place 1 drop into both 0 0.005 % ophthalmic eyes At Bedtime solution methocarbamol (ROBAXIN) Take 2 tablets by 0 11/15 500 MG tablet mouth 2 times daily as needed montelukast (SINGULAIR) Take 1 tablet by mouth 0 10/18/2020 10 MG tablet At Bedtime olopatadine (PATANOL) 0.[address] 1 drop into both 0 % ophthalmic solution eyes 2 times daily as needed for allergies polyethylene glycol Take 17 g by mouth 2 510 g 0 2020 (MIRALAX) 17 GM/Dose times daily as needed powder for constipation potassium chloride ER Take 40 mEq by mouth 0 (KLOR-CON M) 10 MEQ CR daily tablet senna-docusate Take 1 tablet by mouth 0 1 (SENOKOT-S/PERICOLACE) 2 times daily as 8.6-50 MG tablet needed for constipation spironolactone Take 25 mg by mouth 0 11/27/2020 (ALDACTONE) 25 MG tablet every morning WIXELA INHUB 250-50 Inhale 1 puff into the 0 10/02 MCG/DOSE inhaler lungs daily documented as of this encounter Progress Notes Elfego Randall - 12/18/2020 7:20 AM CDT BG 66 this morning with labs. Not on hypoglycemia protocol. Pt asymptomatic and reported decreased oral intake with constipation/diarrhea. Pt was given apple juice x2 and crackers. BG 107 on recheck. Uma Restrepo PA-C - 12/17/2020 12:12 PM CDT Admitted earlier for constipation with overflow diarrhea and rectal pain. CT on admission showed fecal impaction with poss stercoral colitis. She was given Relistor in ED, suppository and enema in ED with good results. No having frequent loose stools. Feels too weak to discharge home today. Will hold off on further bowel meds for now. Reassess bowel regimen in AM. 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 Patient has been oriented to the observation room, bathroom and call light is in place. Discussed discharge goals and expectations with patient/family. documented in this encounter H&P Notes Lisandro Crawford MD - 12/17/2020 2:17 AM CDT [facility] History and Physical - Hospitalist Service Date of Admission: 12/16/2020 Assessment & Plan Krys Mosher is a 70 year old female admitted on 12/16/2020. 1) Obstipation with fecal impaction secondary to 2) Chronic Opioid Use 3) Possible associated Stercoral colitis 4) mild dehydration 5) PAD 6)Coronary calcifications 7) chronic stable medical problems including Charcot joint, hypertension, osteoporosis, hyperlipidemia Plan: Admit observation, observe for ongoing effects of relistor, check C-Diff if diarrhea persists Hydrate with NS. Observe for any evidence of lower GI bleeding given the possible Stercoral colitis Start Movantik 25 mg daily Diet: Regular DVT Prophylaxis: Lovenox $0 mg subcutaneous daily Day Catheter: Not present Central Lines: None Code Status: Full Code Lisandro Crawford MD [facility] Securely message with the [employer] (learn more here) Text page via [facility] Paging/Directory Chief Complaint Diarrhea History is obtained from the patient History of Present Illness Krys Mosher is a 70 year old female who has a history as delineated below who presented to the ED this evening with chief complaint of diarrhea. Had been seen in urgent care yesterday for constipation x1 week. Does have chronic opioid use. At the urgent care visit she was told to take MiraLAX Benefiber and stool softener to help with constipation. After taking this as prescribed she developed some diarrhea. The diarrhea is liquid without purulence. Had some blood on the toilet paper but had no melanotic or maroon or bloody stools. Denies any fever chills abdominal pain nausea or vomiting. Takes methadone chronically and Vicodin as needed. No wea kness or numbness in the lower extremities. No chest pain or shortness of breath. CT was obtained in the ED which revealed constipation with fecal impaction perirectal inflammatory change without organized fluid collection diverticulosis without diverticulitis evidence of coronary artery disease. Rectal disimpaction was performed in the ED. this resulted in a significant amount of stool. Is alsogiven 12 mcg of Relastor in the ED. following this she continued to have diarrhea type stools and felt too weak to move from her bed. He has had prior C. difficile colitis following antibiotic treatment for colitis but this was about 2 years ago. She is felt to have some dehydration admitted for further treatment Review of Systems The 10 point Review of Systems is negative other than noted in the HPI or here. Past Medical History I have reviewed this patient's medical history and updated it with pertinent information if needed. Past Medical History: Diagnosis Date ??? Adenomatous colon polyp ??? Benign essential hypertension ??? Charcot's arthropathy ??? Chronic back pain ??? Continuous opioid dependence ??? GERD (gastroesophageal reflux disease) ??? Hepatitis C ??? Hyperlipidemia ??? Osteoporosis ??? PVD (peripheral vascular disease) CAD Past Surgical History I have reviewed this patient's surgical history and updated it with pertinent information if needed. Past Surgical History: Procedure Laterality Date ??? APPENDECTOMY OPEN ??? ARTHROSCOPY KNEE Bilateral ??? BIOPSY BREAST ??? Cervical spine fusion NOS ??? CHOLECYSTECTOMY ??? COLONOSCOPY ??? EGD ??? FOOT ARTHRODESIS, SUBTALAR ??? Hysterectomy and BÁRBARA NOS ??? Lumbar spine fusion NOS ??? SUDHAKAR FUNDOPLICATION ??? TONSILLECTOMY Social History I have reviewed this patient's social history and updated it with pertinent information if needed. Social History Tobacco Use ??? Smoking status: Never Smoker ??? Smokeless tobacco: Never Used Substance Use Topics ??? Alcohol use: Not on file ??? Drug use: Not on file Family History Hx of frequent skin infections Prior to Admission Medications Prior to Admission Medications Prescriptions Last Dose Informant Patient Reported? Taking? Calcium Carbonate-Vitamin D (CALCIUM-CARB 600 + D PO) Yes No Sig: Take 1 tablet by mouth 2 times daily HYDROcodone-acetaminophen (NORCO) 5-325 MG tablet Yes No Sig: Take 1 tablet by mouth 3 times daily as needed for severe pain albuterol (PROAIR HFA/PROVENTIL HFA/VENTOLIN HFA) 108 (90 Base) MCG/ACT inhaler Yes No Sig: Inhale 2 puffs into the lungs every 4 hours as needed for shortness of breath / dyspnea or wheezing cephALEXin (KEFLEX) 500 MG capsule No No Sig: Take 1 capsule (500 mg) by mouth 2 times daily Patient not taking: Reported on 11/19/2020 esomeprazole (NEXIUM) [address] capsule Yes No Sig: Take 20 mg by mouth daily Take 30-60 minutes before eating. furosemide (LASIX) 40 MG tablet Yes No Sig: Take 40 mg by mouth 2 times daily Morning, After dinner methadone (DOLOPHINE) 5 MG tablet Yes No Sig: Take 5 mg by mouth 2 times daily multivitamin w/minerals (THERA-VIT-M) tablet Yes No Sig: Take 1 tablet by mouth daily potassium chloride ER (MICRO-K) 10 MEQ CR capsule Yes No Sig: Take 10 mEq by mouth 3 times daily saccharomyces boulardii (FLORASTOR) 250 MG capsule No No Sig: Take 1 capsule (250 mg) by mouth 2 times daily simvastatin (ZOCOR) 20 MG tablet Yes No Sig: Take 20 mg by mouth every other day At PM simvastatin (ZOCOR) 20 MG tablet Yes No Sig: Take 10 mg by mouth every other day At PM traZODone (DESYREL) 50 MG tablet Yes No Sig: Take 50 mg by mouth nightly as needed for sleep Facility-Administered Medications: None Allergies Allergies Allergen Reactions ??? Morphine Anaphylaxis and Shortness Of Breath ??? Augmentin Diarrhea and Hives ??? Doxycycline Diarrhea ??? Quinolones Other reaction(s): Confusion, Loopy ??? Sulfa Drugs Hives ??? Lorazepam Anxiety and Other (See Comments) Other reaction(s): Loopy Physical Exam Vital Signs: Temp: 98.1 ??F (36.7 ??C) Temp src: Oral BP: 124/72 Pulse: 96 Resp: 20 SpO2: 96 % O2 Device: None (Room air) Weight: 0 lbs 0 oz General Appearance: Patient is alert and oriented, nontoxic, no acute distress Eyes: EOMI, PERRL, nonicteric there is no injection HEENT: Atraumatic/normocephalic, naso and oropharynx are clear Neck: Supple without lymphadenopathy or increased jugular venous tension Respiratory: Clear to auscultation bilaterally Cardiovascular: The rate and rhythm without murmur gallop or rub normal S1 and S2 GI: Normal active bowel sounds soft nontender this no distention. Lymph/Hematologic: No evidence of ecchymoses or bruising significant lymphadenopathy Skin: No evidence of rashes or skin breakdown musculoskeletal: Degenerative arthritic changes of hands feet bilaterally Ext: -c/c/e, decreased peripheral pulses Neurologic: Alert, oriented x3 cranial nerves II through XII are intact DTR reflexes are decreased at the ankle but otherwise nonfocal. Motor is 5/5 throughout Psychiatric: Affect and mood appropriate Data Data reviewed today: I reviewed all medications, new labs and imaging results over the last 24 hours. . Recent Labs Lab 12/16/20 2138 WBC 11.1* HGB 14.6 MCV 103* PLT 259 NA 134 POTASSIUM 4.1 CHLORIDE 100 CO2 27 BUN 4* CR 0.55 ANIONGAP 7 SERG 8.9 GLC 89 ALBUMIN 3.2* PROTTOTAL 6.2* BILITOTAL 0.7 ALKPHOS 89 ALT 43 AST 23 Recent Results (from the past 24 hour(s)) Abd/pelvis CT, IV contrast only TRAUMA / AAA Narrative EXAM: CT ABDOMEN PELVIS W CONTRAST LOCATION: [facility] DATE/TIME: 12/16/2020 11:23 PM INDICATION: Diverticulitis suspected, bowel obstruction suspected. COMPARISON: None. TECHNIQUE: CT scan of the abdomen and pelvis was performed following injection of IV contrast. Multiplanar reformats were obtained. Dose reduction techniques were used. CONTRAST: 78 mL Isovue-370. FINDINGS: LOWER CHEST: Discoid atelectasis. Normal size heart. No pericardial effusion. Mitral annular calcifications. HEPATOBILIARY: Normal. PANCREAS: Normal. SPLEEN: Normal. ADRENAL GLANDS: Normal. KIDNEYS/BLADDER: No bowel obstruction, colitis, diverticulitis, or appendicitis. BOWEL: Large volume retained feces in the rectal vault. Small amount of presacral and perirectal fatstranding. Diverticulosis. No diverticulitis, obstruction, or appendicitis. LYMPH NODES: Normal. VASCULATURE: No aneurysm. Tortuous atherosclerotic aorta. PELVIC ORGANS: Absent uterus. MUSCULOSKELETAL: Posterior fusion L2-L5. Impression IMPRESSION: 1. Constipation with fecal impaction. 2. Perirectal inflammatory change, correlate to exclude stercoral colitis. Recommend follow-up to resolution. No organized fluid collection. 3. Diverticulosis. No diverticulitis. 4. Coronary artery disease and atherosclerotic vascular disease. documented in this encounter ED Notes Amando Ross MD - 12/17/2020 1:36 AM CDT Emergency Department Attending Supervision Note 12/17/2020 1:36 AM I evaluated this patient in conjunction with Caleb Dawn PA-C Briefly, the patient presented with constipation in the setting of chronic opioid use. Rectal disimpaction unsuccessful. Success with [place] lady enema and Relistor. Now with large diarrhea. Too weak to care for self on own. Admitted to observation. CT reviewed, no obstruciton. Inflammatory changes nearrectum due to impaction without evidence of infection. On my exam, Patient Vitals for the past 24 hrs: BP Temp Temp src Pulse Resp SpO2 12/17/20 0100 124/72 -- -- -- -- 96 % 12/17/20 0030 -- -- -- -- -- 94 % 12/17/20 0000 122/77 -- -- 96 -- 99 % 12/16/20 2330 121/70 -- -- -- -- -- 12/16/20 2300 -- -- -- -- -- 90 % 12/16/202199 144/77 -- -- 99 -- 99 % 12/16/202032 156/102 98.1 ??F (36.7 ??C) Oral 100 20 99 % Nursing note and vitals reviewed. Constitutional: Cooperative. Resting comfortably. HENT: Mouth/Throat: Mucous membranes are normal. Cardiovascular: Normal rate, regular rhythm and normal heart sounds. Pulmonary/Chest: Effort normal and breath sounds normal. No respiratory distress. Abdominal: Soft. Normal appearance and bowel sounds are normal. No distension. There is no tenderness. There is no rigidity and no guarding. Neurological: Alert. Oriented x4 Skin: Skin is warm and dry. Psychiatric: Normal mood and affect. Diagnosis ICD-10-CM 1. Constipation with Fecal impaction K59.00 2. Stercoral colitis K52.89 3. Coronary artery calcification I25.10 I25.84 4. Generalized muscle weakness M62.81 Amando Ross MD 12/17/20 0139 Lavern Carvajal RN - 12/17/2020 1:16 AM CDT Bed: ED01 Expected date: Expected time: Means of arrival: Comments: 35 Jacky Mejia RN - 12/17/2020 1:14 AM CDT [facility] ED Nurse Handoff Report Krys Mosher is a 70 year old female ED Chief complaint: Diarrhea . ED Diagnosis: Final diagnoses: Constipation Stercoral colitis - Possible Coronary artery calcification Generalized muscle weakness Allergies: Allergies Allergen Reactions ??? Morphine Anaphylaxis and Shortness Of Breath ??? Augmentin Diarrhea and Hives ??? Doxycycline Diarrhea ??? Quinolones Other reaction(s): Confusion, Loopy ??? Sulfa Drugs Hives ??? Lorazepam Anxiety and Other (See Comments) Other reaction(s): Loopy Code Status: Full Code Activity level - Baseline/Home: Assist X 1. Activity Level - Current: Assist X 1. Lift room needed: No. Bariatric: No Rotary Furnace Tender Needed: No Isolation: No. Infection: Not Applicable. Vital Signs: Vitals: 12/16/20 2330 12/17/20 0000 12/17/20 0030 12/17/20 0100 BP: 121/70 122/77 124/72 Pulse: 96 Resp: Temp: TempSrc: SpO2: 99% 94% 96% Cardiac Rhythm: , Pain level: Patient confused: No. Patient Falls Risk: Yes. Elimination Status: Has voided Patient Report - Initial Complaint: diarrhea, abd pain. Focused Assessment: Disimpacted, frequent watery/loose stools, gen weakness Tests Performed: Labs Ordered and Resulted from Time of ED Arrival Up to the Time of Departure from the ED COMPREHENSIVE METABOLIC PANEL - Abnormal; Notable for the following components: Result Value Urea Nitrogen 4 (*) Protein Total 6.2 (*) Albumin 3.2 (*) All other components within normal limits CBC WITH PLATELETS AND DIFFERENTIAL - Abnormal; Notable for the following components: WBC Count 11.1 (*) MCV 103 (*) MCH 35.1 (*) Absolute Neutrophils 8.5 (*) All other components within normal limits TSH WITH FREE T4 REFLEX - Normal CBC WITH PLATELETS & DIFFERENTIAL Narrative: The following orders were created for panel order CBC with platelets differential. Procedure Abnormality Status --------- ------ CBC with platelets and d...[[id number]] Abnormal Final result Please view results for these tests on the individual orders. . Abnormal Results: Abd/pelvis CT, IV contrast only TRAUMA / AAA Final Result IMPRESSION: 1. Constipation with fecal impaction. 2. Perirectal inflammatory change, correlate to exclude stercoral colitis. Recommend follow-up to resolution. No organized fluid collection. 3. Diverticulosis. No diverticulitis. 4. Coronary artery disease and atherosclerotic vascular disease. . Treatments provided: pink lady enema, relistor, 1L NS Family Comments: will leave at admit OBS brochure/video discussed/provided to patient: Yes ED Medications: Medications fentaNYL (PF) (SUBLIMAZE) injection 50 mcg (50 mcg Intravenous Given 12/16/202244) iopamidol (ISOVUE-370) solution 500 mL (78 mLs Intravenous Given 12/16/202324) Sodium Chloride 0.9 % Bag 500mL for CT Scan Flush Use (59 mLs Intravenous Given 12/16/20 2325) pink lady enema (COMPOUNDED: docusate, magnesium citrate, mineral oil, sodium phosphate) (286 mLs Rectal Given 12/17/20 0000) methylnaltrexone (RELISTOR) injection 12 mg (12 mg Subcutaneous Given 12/17/20 0010) 0.9% sodium chloride BOLUS (1,000 mLs Intravenous New Bag 12/17/20 0044) Drips infusing: No For the majority of the shift, the patient's behavior Green. Interventions performed were n/a. Sepsis treatment initiated: No Patient tested for COVID 19 prior to admission: YES - pending ED Nurse Name/Phone Number: Cristina Fraga RN, 1:14 AM RECEIVING UNIT ED HANDOFF REVIEW Above ED Nurse Handoff Report was reviewed: Yes Reviewed by: Jacky Mejia RN on December 17, 2020 at 2:01 AM Cristina Fraga RN - 12/17/2020 12:40 AM CDT Pt had large formed BM on BSC along with liquid stool. Cristina Fraga RN - 12/17/2020 12:15 AM CDT Pt up to BSC to have BM after pink lady enema and Relistor Thierry Mccord RN - 12/16/2020 8:32 PM CDT Pt states mixed diarrhea and constipation today. Pt states constipation present for over 5 days. Pt states seen for same at one day ago. ABCs intact GCS 15 Caleb Dawn PA-C - 12/16/2020 8:28 PM CDT History Chief Complaint: Diarrhea HPI Krys Mosher is a 70 year old female with history of hypertension and hyperlipidemia who presents with diarrhea. The patient was seen in urgent care yesterday for constipation ever since 1 week ago. Following the urgent care visit, she was told to take MiraLAX, Benefiber, and stool softener to help with her constipation. Today, she reports the ED with constant diarrhea after having taken all of these medications. She notes her stool is liquid. She also notes that she has been feeling weaker. She has had some blood on toilet paper when wiping but no black or bloody stools. She was told she had a small hemorrhoid at yesterday. For the hemorrhoids, she was told to use Anusol suppositories twice aday as needed, however she mentions that she never used these. No fevers, chills, or abdominal pain.No known sick contacts. No recent travel or abnormal food or liquid ingestion. She is on chronic Methadone therapy and also uses VIcodin PRN. No numbness or weakness in the groin and legs. No chest pain or SOB. Review of Systems Constitutional: Negative for fever. Gastrointestinal: Positive for diarrhea. Negative for abdominal pain. Neurological: Positive for weakness. All other systems reviewed and are negative. Allergies: Morphine Augmentin Doxycycline Quinolones Sulfa Drugs Lorazepam Medications: Nexium Lasix Perry Methadone Zocor Trazodone Florastor Past Medical History: Hyperlipidemia Osteoporosis Hypertension PVD Hydradenitis Tenosynovitis Charcot's arthropathy GERD Chronic pain Chronic low back pain Past Surgical History: Breast biopsy Cervical fusion Bilateral knee arthroscopy Subtalar arthroereisis Lumbar fusion Tonsillectomy Cholecystectomy Appendectomy Esophagogastroduodenoscopy Social History: Presents to ED alone. PCP: Idalmis Sloan Physical Exam Patient Vitals for the past 24 hrs: BP Temp Temp src Pulse Resp SpO2 12/17/20 0100 124/72 -- -- -- -- 96 % 12/17/20 0030 -- -- -- -- -- 94 % 12/17/20 0000 122/77 -- -- 96 -- 99 % 12/16/20 2330 121/70 -- -- -- -- -- 12/16/20 2300 -- -- -- -- -- 90 % 12/16/202199 (!) 144/77 -- -- 99 -- 99 % 12/16/202032 (!) 156/102 98.1 ??F (36.7 ??C) Oral 100 20 99 % Physical Exam General: Awake, alert, pleasant, non-toxic. Head: Scalp is NC/AT Eyes: Conjunctiva normal, PERRL ENT: The external nose and ears are normal. Neck: Normal range of motion without rigidity. CV: Regular rate and rhythm No pathologic murmur, rubs, or gallops. Resp: Breath sounds are clear bilaterally. No crackles, wheezes, rhonchi, stridor. Non-labored, no retractions or accessory muscle use Abdomen: Abdomen is soft, no distension, mild left sided tenderness, no masses. No CVA tenderness. Rectal exam with no melena or hematochezia. Fecal impaction material removed. Small hemorrhoid. No fissures. Minor surrounding irration/erythema of perianal skin. (Performed in the presence of female chap erone) MS: No lower extremity edema or asymmetric calf swelling. No midline cervical, thoracic, or lumbar tenderness Skin: Warm and dry, No rash or lesions noted. Neuro: Alert and oriented x3. 5/5 strength BL in UE and LE, normal sensation to touch. Psych: Awake. Alert. Normal affect. Appropriate interactions. Emergency Department Course Imaging: Abd/pelvis CT, IV contrast only TRAUMA / AAA Final Result IMPRESSION: 1. Constipation with fecal impaction. 2. Perirectal inflammatory change, correlate to exclude stercoral colitis. Recommend follow-up to resolution. No organized fluid collection. 3. Diverticulosis. No diverticulitis. 4. Coronary artery disease and atherosclerotic vascular disease. Laboratory: Labs Ordered and Resulted from Time of ED Arrival Up to the Time of Departure from the ED COMPREHENSIVE METABOLIC PANEL - Abnormal; Notable for the following components: Result Value Urea Nitrogen 4 (*) Protein Total 6.2 (*) Albumin 3.2 (*) All other components within normal limits CBC WITH PLATELETS AND DIFFERENTIAL - Abnormal; Notable for the following components: WBC Count 11.1 (*) MCV 103 (*) MCH 35.1 (*) Absolute Neutrophils 8.5 (*) All other components within normal limits TSH WITH FREE T4 REFLEX - Normal COVID-19 VIRUS (CORONAVIRUS) BY PCR CBC WITH PLATELETS & DIFFERENTIAL Narrative: The following orders were created for panel order CBC with platelets differential. Procedure Abnormality Status --------- ------ CBC with platelets and d...[[id number]] Abnormal Final result Please view results for these tests on the individual orders. Emergency Department Course: Reviewed: 2039 I reviewed the patient's nursing notes, vitals, past medical records, Care Everywhere. Assessments/Consults: 2047 I performed an exam as documented above. 2299 I performed a rectal disimpaction on the patient. 29 I re-checked the patient. She was able to produce some significant amount of formed stool 99 I re-checked the patient. She is continuing to have gross liquid stools. States feels too weak to attempt road-test. [address] Crawford hospitalist service who agrees to accept the patient to an observation bed. Interventions: Medications fentaNYL (PF) (SUBLIMAZE) injection 50 mcg (50 mcg Intravenous Given 12/16/205) iopamidol (ISOVUE-370) solution 500 mL (78 mLs Intravenous Given 12/16/205) Sodium Chloride 0.9 % Bag 500mL for CT Scan Flush Use (59 mLs Intravenous Given 12/16/20 232) pink lady enema (COMPOUNDED: docusate, magnesium citrate, mineral oil, sodium phosphate) (286 mLs Rectal Given 12/17/20 0000) methylnaltrexone (RELISTOR) injection 12 mg (12 mg Subcutaneous Given 12/17/20 0010) 0.9% sodium chloride BOLUS (1,000 mLs Intravenous New Bag 12/17/20 0044) Disposition: The patient was admitted to the hospital under the care of Dr. Crawford. Impression & Plan Medical Decision Making: Krys Mosher is a 70 year old female with history of back pain, chronic pain on methadone, who presents with constipation, generalized weakness now having liquid stools and abdominal pain. CT with evidence of large stool burden and fecal impaction no evidence of bowel obstruction or other intra-abdominal catastrophe. Does show some mild inflammatory change which could represent stercoral colitis. Noevidence of abscess. She has slight leukocytosis but no fever and abdominal exam without peritonitisor significant tenderness and no indication for antibiotics at this time. Neurologic exam normal no signs of cauda equina or spinal cord compression. Constipation likely d/t chronic methadone use. Disimpaction was initially attempted but unsuccessful as stool was too proximal. Enema and Relistorgiven with successful results and solid stool output. On recheck is continuing to produce stool and no impaction in the distal rectum on re-check. Unfortunately continuing to have significant liquid stools and no improvement in weakness. Suspect some degree of dehydration. Given fluids. Labs unremarkable other than slight leukocytosis as above. Given her weakness and continued liquid stools we will bring her to the hospital for observation given concerns for being able to take care of herself tonight at home, possible GI consult in the a.m. Discussed with hospitalist who agrees to accept the patient. Also incidental findings noted on CT of coronary artery calcifications and diverticulosis which were discussed with the patient. Follow- up with primary care regarding these. Diagnosis: ICD-10-CM 1. Constipation with Fecal impaction K59.00 2. Stercoral colitis K52.89 Possible 3. Coronary artery calcification I25.10 I25.84 4. Generalized muscle weakness M62.81 Discharge Medications: New Prescriptions No medications on file Scribe Disclosure: Dudley Luther, am serving as a scribe at 10:38 PM on 12/16/2020 to document services personally performed by Caleb Dawn PA-C based on my observations and the provider's statements traci. Caleb Dawn PA-C 12/17/20 0139 documented in this encounter Miscellaneous Notes Plan of Care - Linda Avery RN - 12/18/2020 2:20 PM CDT Patient's After Visit Summary was reviewed with patient. Patient verbalized understanding of After Visit Summary, recommended follow up and was given an opportunity to ask questions. Discharge medications sent home with patient/family: N/A Discharged with: OBSERVATION patient END time: 1420 Plan of Care - Catalina Cash RN - 12/18/2020 8:42 AM CDT PRIMARY DIAGNOSIS: Fecal impaction and diarrhea OUTPATIENT/OBSERVATION GOALS TO BE MET BEFORE DISCHARGE 1. Tolerating PO fluid: Yes 3. Nausea/Vomiting/Diarrhea symptoms improved: Yes 4. Pain status: Improved-controlled with oral pain medications. 5. Return to near baseline physical activity: Yes Clinical Associate Nurse Safe discharge environment identified: Yes Barriers to discharge: No Entered by: Catailna Cash 12/18/2020 0842 Please review provider order for any additional goals. Nurse to notify provider when observation goals have been met and patient is ready for discharge. Patient is alert and oriented. Up with standby assist. Ambulated length of valera and back to room. NoBM or diarrhea or nausea present . Tolerated regular diet. Complains of chronic back and hip pain, received scheduled methadone. Will continue POC and review as needed. Plan of Care - Elfego Randall - 12/18/2020 4:00 AM CDT PRIMARY DIAGNOSIS: GENERALIZED WEAKNESS/ Constipation OUTPATIENT/OBSERVATION GOALS TO BE MET BEFORE DISCHARGE 1. Orthostatic performed: N/A 2. Tolerating PO medications: Yes 3. Return to near baseline physical activity: Currently SBA w/walker 4. Cleared for discharge by consultants (if involved): N/A Clinical Associate Nurse Safe discharge environment identified: Yes, home w/ Barriers to discharge: Yes Entered by: Elfego Randall 12/18/2020 5:51 AM Vitals are Temp: 97.9 ??F (36.6 ??C) Temp src: Oral BP: (!) 158/98 Pulse: 79 Resp: 20 SpO2: 95 %. Patient is alert and oriented. Up SBA w/walker. On a regular diet. 8/10 chronic back and left hip pain. On scheduled methadone and prn Perry. PIV SL. Continuing supportive cares. Likely home today. Please review provider order for any additional goals. Nurse to notify provider when observation goals have been met and patient is ready for discharge. Plan of Care - Tonia Elfego Dean - 12/18/2020 12:15 AM CDT PRIMARY DIAGNOSIS: GENERALIZED WEAKNESS/ Constipation OUTPATIENT/OBSERVATION GOALS TO BE MET BEFORE DISCHARGE 1. Orthostatic performed: N/A 2. Tolerating PO medications: Yes 3. Return to near baseline physical activity: Currently SBA w/walker 4. Cleared for discharge by consultants (if involved): N/A Clinical Associate Nurse Safe discharge environment identified: Yes, home w/ Barriers to discharge: Yes Entered by: Elfego Randall 12/18/2020 12:51 AM Vitals are Temp: 97.5 ??F (36.4 ??C) Temp src: Oral BP: 139/76 Pulse: 74 Resp: 16 SpO2: 97 %. Patient is alert and oriented. Up SBA w/walker. On a regular diet. Rectal pain 09/08 on pain reassessment. Continuing with ice pack. On scheduled methadone with prn Perry for chronic pain. PIV SL. Ambulated hallways and bed bath completed. Prn Trazodone given at HS. Continuing supportive cares. Please review provider order for any additional goals. Nurse to notify provider when observation goals have been met and patient is ready for discharge. Plan of Care - Elfego Randall - 12/17/2020 8:15 PM CDT PRIMARY DIAGNOSIS: GENERALIZED WEAKNESS/ Constipation OUTPATIENT/OBSERVATION GOALS TO BE MET BEFORE DISCHARGE 1. Orthostatic performed: N/A 2. Tolerating PO medications: Yes 3. Return to near baseline physical activity: Currently SBA w/walker 4. Cleared for discharge by consultants (if involved): N/A Clinical Associate Nurse Safe discharge environment identified: Yes, home w/ Barriers to discharge: Yes Entered by: Elfego Randall 12/17/2020 11:27 PM Vitals are Temp: 98.4 ??F (36.9 ??C) Temp src: Oral BP: 110/76 Pulse: 84 Resp: 16 SpO2: 96 %. Patient is Alert and Oriented x4. Up SBA w/walker. On a regular diet. Reports 9/10 rectal discomfort. Ice applied. On scheduled methadone. Prn Perry also given. PIV SL. Up to bathroom with small BM this evening. Tucks pad prn. Supportive cares tonight with discharge back home tomorrow. Please review provider order for any additional goals. Nurse to notify provider when observation goals have been met and patient is ready for discharge. Plan of Care - Reggie Langford RN - 12/17/2020 4:06 PM CDT PRIMARY DIAGNOSIS: diarrhea/weakness OUTPATIENT/OBSERVATION GOALS TO BE MET BEFORE DISCHARGE: 1. Stable vital signs Yes 2. Tolerating diet:Yes 3. Pain controlled with oral pain medications: Yes 4. Positive bowel sounds: Yes 5. Voiding without difficulty: Yes 6. Able to ambulate: Yes 7. Provider specific discharge goals met: yes Clinical Associate Nurse Safe discharge environment identified: Yes Barriers to discharge: Yes. Pt concerned or unwilling to go home and go home and deal with loose stools and diarrhea. Pt still having some discomfort on her abdomen as she feels unable to empty her bowels. Hospitalist notified. Py has no pain or tenderness on palpation. Will keep monitoring. Entered by: Reggie Langford 12/17/2020 4:07 PM Please review provider order for any additional goals. Nurse to notify provider when observation goals have been met and patient is ready for discharge. Plan of Care - Reggie Langford RN - 12/17/2020 12:58 PM CDT PRIMARY DIAGNOSIS: weakness dehydration OUTPATIENT/OBSERVATION GOALS TO BE MET BEFORE DISCHARGE: 1. Stable vital signs Yes 2. Tolerating diet:Yes 3. Pain controlled with oral pain medications: Yes 4. Positive bowel sounds: Yes 5. Voiding without difficulty: Yes 6. Able to ambulate: Yes 7. Provider specific discharge goals met: Yes Clinical Associate Nurse Safe discharge environment identified: Yes Barriers to discharge: Yes, does not feel able to get up and use the toilette so many times Entered by: Reggie Langford 12/17/2020 12:58 PM Please review provider order for any additional goals. Nurse to notify provider when observation goals have been met and patient is ready for discharge. Pharmacy-Admission Medication History - Lazara Fontenot [facility] - 12/17/2020 10:24 AM CDT Admission medication history interview status for this patient is complete. See [facility] admission navigator for allergy information, prior to admission medications and immunization status. Medication history interview done, indicate source(s): Patient Medication history resources (including written lists, pill bottles, clinic record): Sure Scripts fill record Pharmacy: [facility] Changes made to [employer] ANALYST medication list: Added: latanoprost, Patanol eye drops, Wixella inhaler, diclofenac gel, Lomotil, methocarbamol, Singulair, spironolactone Changed: KCl 10 meq bid -> 40 meq daily, furosemide bid -> daily Reported as Not Taking: cephalexin, Florastor Removed: cephalexin, Florastor, duplicate simvastatin order (20mg) Actions taken by pharmacist (provider contacted, etc): paged provider to review home medications Additional medication history information:None Medication reconciliation/reorder completed by provider prior to medication history? Y (Y/N) Prior to Admission medications Medication Sig Last Dose Taking? Auth Provider Calcium Carbonate-Vitamin D (CALCIUM-CARB 600 + D PO) Take 1 tablet by mouth 2 times daily Past WeekYes Unknown, Entered By History diclofenac (VOLTAREN) 1 % topical gel Apply 2-4 g topically 2 times daily as needed Yes Unknown, Entered By History diphenoxylate-atropine (LOMOTIL) 2.5-0.025 MG tablet Take 2 tablets by mouth 2 times daily as neededYes Unknown, Entered By History esomeprazole (NEXIUM) [address] capsule Take 20 mg by mouth daily Take 30-60 minutes before eating. 12/16/2020 Yes Unknown, Entered By History furosemide (LASIX) 40 MG tablet Take 40 mg by mouth daily 12/16/2020 Yes Unknown, Entered By History HYDROcodone-acetaminophen (NORCO) 5-325 MG tablet Take 1 tablet by mouth 3 times daily as needed forsevere pain Yes Reported, Patient latanoprost (XALATAN) 0.005 % ophthalmic solution Place 1 drop into both eyes At Bedtime 12/15/2020 Yes Unknown, Entered By History methadone (DOLOPHINE) 5 MG tablet Take 5 mg by mouth 2 times daily 12/16/2020 at time Yes Unknown, Entered By History methocarbamol (ROBAXIN) 500 MG tablet Take 2 tablets by mouth 2 times daily as needed Yes Unknown, Entered By History montelukast (SINGULAIR) 10 MG tablet Take 1 tablet by mouth At Bedtime Past Week Yes Unknown, Entered By History multivitamin w/minerals (THERA-VIT-M) tablet Take 1 tablet by mouth daily 12/16/2020 at Unknown timeYes Unknown, Entered By History olopatadine (PATANOL) 0.1 % ophthalmic solution Place 1 drop into both eyes 2 times daily as needed for allergies Yes Unknown, Entered By History potassium chloride ER (KLOR-CON M) 10 MEQ CR tablet Take 40 mEq by mouth daily 12/16/2020 Yes Unknown, Entered By History simvastatin (ZOCOR) 20 MG tablet Take 10 mg by mouth every other day At PM 12/15/2020 Yes Unknown, Entered By History spironolactone (ALDACTONE) 25 MG tablet Take 25 mg by mouth every morning 12/16/2020 Yes Unknown, Entered By History traZODone (DESYREL) 50 MG tablet Take 50 mg by mouth nightly as needed for sleep Yes Unknown, Entered By History WIXELA INHUB 250-50 MCG/DOSE inhaler Inhale 1 puff into the lungs daily 12/16/2020 Yes Unknown, Entered By History albuterol (PROAIR HFA/PROVENTIL HFA/VENTOLIN HFA) 108 (90 Base) MCG/ACT inhaler Inhale 2 puffs into the lungs every 4 hours as needed for shortness of breath / dyspnea or wheezing Unknown, Entered By History Pharmacy-Rx Insurance Coverage - Tyesha Torres - 12/17/2020 9:50 AM CDT Coverage check on [employer]. Patient has Medicare D through [facility]. [employer]: Not covered. Relistor: Not covered. Amitiza: $47/mo. Dea Torres, Recruiter Coordinator/Liaison, Discharge Pharmacy [phone] Plan of Care - Reggie Langford RN - 12/17/2020 9:02 AM CDT PRIMARY DIAGNOSIS: dehydration/weakness OUTPATIENT/OBSERVATION GOALS TO BE MET BEFORE DISCHARGE: 1. Stable vital signs Yes 2. Tolerating diet:Yes 3. Pain controlled with oral pain medications: Yes 4. Positive bowel sounds: Yes 5. Voiding without difficulty: Yes 6. Able to ambulate: Yes 7. Provider specific discharge goals met: Yes Clinical Associate Nurse Safe discharge environment identified: Yes Barriers to discharge: No Entered by: Reggie Langford 12/17/2020 9:03 AM Please review provider order for any additional goals. Nurse to notify provider when observation goals have been met and patient is ready for discharge. Plan of Care - Jacky Mejia RN - 12/17/2020 3:51 AM CDT PRIMARY DIAGNOSIS: Constipation/Diarrhea OUTPATIENT/OBSERVATION GOALS TO BE MET BEFORE DISCHARGE 1. Orthostatic performed: N/A 2. Tolerating PO fluid and/or antibiotics (if applicable): Yes 3. Nausea/Vomiting/Diarrhea symptoms improved: No, watery and loose 4. Pain status: Improved-controlled with oral pain medications. 5. Return to near baseline physical activity: No Clinical Associate Nurse Safe discharge environment identified: Yes Barriers to discharge: Yes Entered by: Jacky Mejia 12/17/2020 3:52 AM BP (!) 131/90 Pulse 80 Temp 98 ??F (36.7 ??C) (Oral) Resp 18 Ht 1.524 m (5') Wt 65.1 kg (143 lb 8 oz) SpO2 98% BMI 28.03 kg/m?? Hypertensive but otherwise VSS. AxOx4 and able to make needs known. Tolerating regular diet. C/o 8/10 left shoulder pain, PRN Perry administered. NS running at 100mL/hr. C/o SOB and anxiety r/t asthma,2lpm Oxymask applied for comfort. 1 watery loose stool upon admission. Blanchable redness in perineum covered w/ barrier cream. Various bruises and petechiae/rash scattered over extremities, CDI and left open to air. Plan to provide IVF and monitor for GIB, pt agreeable to POC. Will continue to provide supportive cares. Please review provider order for any additional goals. Nurse to notify provider when observation goals have been met and patient is ready for discharge. documented in this encounter Plan of Treatment Not on filedocumented as of this encounter Procedures Procedure Name Priority Date/Time Associated Comments Diagnosis GLUCOSE BY METER Routine 12/18/2020 7:18 AM Resul ts for this CDT procedure are i n the results section. CBC WITH PLATELETS AND Routine 12/18/2020 6:17 AM Results for this DIFFERENTIAL CDT procedure are i n the results section. CBC WITH PLATELETS & Routine 12/18/2020 6:17 AM R esults for this DIFFERENTIAL CDT procedure are i n the results section. BASIC METABOLIC PANEL Routine 12/18/2020 6:17 AM Results for this CDT procedure are i n the results section. COVID-19 VIRUS STAT 12/17/2020 1:19 AM Results for this (CORONAVIRUS) BY PCR CDT procedu re are in the results section. CT ABDOMEN PELVIS W STAT 12/16/2020 11:24 Resu lts for this CONTRAST PM CDT procedure are i n the results section. CBC WITH PLATELETS AND STAT 12/16/2020 9:38 PM Results for this DIFFERENTIAL CDT procedure are i n the results section. CBC WITH PLATELETS & STAT 12/16/2020 9:38 PM R esults for this DIFFERENTIAL CDT procedure are i n the results section. TSH WITH FREE T4 STAT 12/16/2020 9:38 PM Resul ts for this REFLEX CDT procedure are i n the results section. COMPREHENSIVE STAT 12/16/2020 9:38 PM Results for this METABOLIC PANEL CDT procedure ar e in the results section. documented in this encounter Results (ABNORMAL) Glucose by meter (12/18/2020 7:18 AM CDT) P athologist Signature GLUCOSE BY 107 (H) 70 - 99 12/18/2020 [facility] METER POCT mg/dL 7:24 AM CDT POC Specimen Anatomical Collection Method Collection Time Receive d Time (Source) Location / / Volume Laterality Blood BLOOD SPECIMEN / 12/18/2020 7:18 AM 12/18 7:24 Unknown CDT AM CDT Lisandro Crawford MD LAB - BEAKER POCT Performing Organization Address City/State/ZIP Code Phon e Number [facility] [place] [address] [facility] [address] Lab (1st floor, no room number) (ABNORMAL) CBC with platelets and differential (12/18/2020 6:17 AM CDT) Patholo gist Method Time Signature WBC Count 7.8 4.0 - 12/18/2020 [facility] 11.0 6:30 AM CDT 10e3/uL RBC Count 3.47 (L) 3.80 - 12/18/2020 [facility] 5.20 6:30 AM CDT 10e6/uL Hemoglobin 12.2 11.7 - 12/18/2020 [facility] 15.7 g/dL 6:30 AM CDT Hematocrit 36.4 35.0 - 12/18/2020 [facility] 47.0 % 6:30 AM CDT MCV 105 (H) 78 - 100 12/18/2020 [facility] fL 6:30 AM CDT MCH 35.2 (H) 26.5 - 12/18/2020 [facility] 33.0 pg 6:30 AM CDT MCHC 33.5 31.5 - 12/18/2020 [facility] 36.5 g/dL 6:30 AM CDT RDW 12.6 10.0 - 12/18/2020 [facility] 15.0 % 6:30 AM CDT Platelet Count 231 150 - 450 12/18/2020 [facility] 10e3/uL 6:30 AM CDT % Neutrophils 58 % 12/18/2020 [facility] 6:30 AM CDT % Lymphocytes 35 % 12/18/2020 [facility] 6:30 AM CDT % Monocytes 6 % 12/18/2020 [facility] 6:30 AM CDT % Eosinophils 1 % 12/18/2020 [facility] 6:30 AM CDT % Basophils 0 % 12/18/2020 [facility] 6:30 AM CDT % Immature 0 % 12/18/2020 [facility] Granulocytes 6:30 AM CDT NRBCs per 100 0 <1 /100 12/18/2020 [facility] WBC 6:30 AM CDT Absolute 4.4 1.6 - 8.3 12/18/2020 [facility] Neutrophils 10e3/uL 6:30 AM CDT Absolute 2.7 0.8 - 5.3 12/18/2020 [facility] Lymphocytes 10e3/uL 6:30 AM CDT Absolute 0.5 0.0 - 1.3 12/18/2020 [facility] Monocytes 10e3/uL 6:30 AM CDT Absolute 0.1 0.0 - 0.7 12/18/2020 [facility] Eosinophils 10e3/uL 6:30 AM CDT Absolute 0.0 0.0 - 0.2 12/18/2020 [facility] Basophils 10e3/uL 6:30 AM CDT Absolute 0.0 <=0.0 12/18/2020 [facility] Immature 10e3/uL 6:30 AM CDT Granulocytes Absolute NRBCs 0.0 10e3/uL 12/18/2020 [facility] 6:30 AM CDT Specimen Anatomical Collection Method / Collection Time Recei gama Time (Source) Location / Volume Laterality Blood STRUCTURE OF RIGHT Venipuncture / 12/18/2020 6:17 11/30 6:26 UPPER LIMB / Unknown AM CDT AM CDT Unknown Uma Brar PA-C LAB - BLOOD ORDERABLES Performing Organization Address City/State/ZIP Code Phon e Number [facility] [place] [place] [address] [facility] [address] Lab (1st floor, no room number) (ABNORMAL) Basic metabolic panel (12/18/2020 6:17 AM CDT) Analysis Performed At Patho logist Time Signature Sodium 139 133 - 144 12/18/2020 [facility] mmol/L 6:48 AM CDT Potassium 3.8 3.4 - 5.3 12/18/2020 [facility] mmol/L 6:48 AM CDT Chloride 107 94 - 109 12/18/2020 [facility] mmol/L 6:48 AM CDT Carbon Dioxide 27 20 - 32 12/18/2020 [facility] (CO2) mmol/L 6:48 AM CDT Anion Gap 5 3 - 14 12/18/2020 [facility] mmol/L 6:48 AM CDT Urea Nitrogen 4 (L) 7 - 30 12/18/2020 [facility] mg/dL 6:48 AM CDT Creatinine 0.54 0.52 - 12/18/2020 [facility] 1.04 mg/dL 6:48 AM CDT Calcium 8.4 (L) 8.5 - 10.1 12/18/2020 [facility] mg/dL 6:48 AM CDT Glucose 66 (L) 70 - 99 12/18/2020 [facility] mg/dL 6:48 AM CDT GFR Estimate >90 >60 12/18/2020 [facility] mL/min/1.7 6:48 AM CDT 3m2 Comment: As of September 09, 2020, eGFR is ca lculated by the CKD-EPI creatinine equation, without race adjustment. eGFR can be inf luenced by muscle mass, exercise, and diet. The reported eGFR is an estimation only and is only applicable if the renal function is stable. Specimen Anatomical Collection Method / Collection Time Recei gama Time (Source) Location / Volume Laterality Blood STRUCTURE OF RIGHT Venipuncture / 12/18/2020 6:17 11/30 6:26 UPPER LIMB / Unknown AM CDT AM CDT Unknown Lisandro Crawford MD LAB - BLOOD ORDERABLES Performing Organization Address City/State/ZIP Code Phon e Number [place] [id number] [facility] [address] Lab (1st floor, no room number) Asymptomatic COVID-19 Virus (Coronavirus) by PCR Nasopharyngeal (12/17/2020 1:19 AM CDT) Analysis Performed At Patho logist Time Signature SARS CoV2 PCR Negative Negative 12/17/2020 [facility] 2:28 AM CDT Comment: NEGATIVE: SARS-CoV-2 (COVID-19) RNA not detected, presumed negative. Specimen Anatomical Location / Collection Method Collection Bryan e Received Time (Source) Laterality / Volume Swab NASOPHARYNGEAL Non-blood 12/17/2020 1:19 12/17/2020 1:39 STRUCTURE / Unknown Collection / AM CDT AM CDT Unknown Narrative LABORATORY - 12/17/2020 2:28 AM CDT Testing was performed using the gurjit?? SARS-CoV-2 & Influenza A/B Assay on the gurjit?? Ryanne?? System. ??This test shoul d be ordered for the detection of SARS-COV-2 in individuals who meet SARS-CoV-2 clini serg and/or epidemiological criteria. Test performance is unknown in asymptomatic p atients. ??This test is for in vitro diagnostic use under the FDA EUA for lab oratories certified under CLIA to perform moderate and/or high complexity testing. This test has not been FDA cleared or approved. ??A negative test does not rul e out the presence of PCR inhibitors in the specimen or target RNA in concentration below the limit of detection for the assay. The possibility of a false negative shou ld be considered if the patient's recent exposure or clinical presentation sugges ts COVID-19. ??[facility] are certified under the Clinical Laborat ory Improvement Amendments of 1988 (CLIA-88) as qualified to perform moderate and/or high complexity laboratory testing. Caleb Dawn PA-C LAB - MICRO GENERAL ORDERAB LES Performing Organization Address City/State/[place] [address] Care [facility] [address] [facility] Lab (1st floor, no room number) Abd/pelvis CT, IV contrast only TRAUMA / AAA (12/16/2020 11:24 PM CDT) Anatomical Region Laterality Modality Abdomen/Pelvis, SUBRAD CT BODY, UMP CT ABDOMEN PELVIS, Computed Tomography RAD CT Specimen (Source) Anatomical Collection Method Collection Time Re ceived Time Location / / Volume Laterality 12/16/2020 11:23 PM CDT Impressions 12/17/2020 12:22 AM CDT IMPRESSION: 1. ??Constipation with fecal impaction. 2. ??Perirectal inflammatory change, cor relate to exclude stercoral colitis. Recommend follow-up to resolution. No organized fluid collection. 3. ??Diverticulosis. No diverticulitis. 4. ??Coronary artery disease and atheros clerotic vascular disease. Narrative 12/17/2020 12:22 AM CDT EXAM: CT ABDOMEN PELVIS W CONTRAST LOCATION: [facility] DATE/TIME: 12/16/2020 11:23 PM INDICATION: Diverticulitis suspected, bhupinder wel obstruction suspected. COMPARISON: None. TECHNIQUE: CT scan of the abdomen and pe lvis was performed following injection of IV contrast. Multiplanar reformats were obtained. Dose reduction techniques were used. CONTRAST: 78 mL Isovue-370. FINDINGS: LOWER CHEST: Discoid atelectasis. Normal size heart. No pericardial effusion. Mitral annular calcifications. HEPATOBILIARY: Normal. PANCREAS: Normal. SPLEEN: Normal. ADRENAL GLANDS: Normal. KIDNEYS/BLADDER: No bowel obstruction, c olitis, diverticulitis, or appendicitis. BOWEL: Large volume retained feces in th e rectal vault. Small amount of presacral and perirectal fat stranding. Diverticulosis. No diverticulitis, obstruction, or appendicitis. LYMPH NODES: Normal. VASCULATURE: No aneurysm. Tortuous ather osclerotic aorta. PELVIC ORGANS: Absent uterus. MUSCULOSKELETAL: Posterior fusion L2-L5. Procedure Note Amando Rao MD - 12/17/2020F ormatting of this note might be different from the original. EXAM: CT ABDOMEN PELVIS W CONTRAST LOCATION: [facility] DATE/TIME: 12/16/2020 11:23 PM INDICATION: Diverticulitis suspected, bhupinder wel obstruction suspected. COMPARISON: None. TECHNIQUE: CT scan of the abdomen and pe lvis was performed following injection of IV contrast. Multiplanar reformats were obtained. Dose reduction techniques were used. CONTRAST: 78 mL Isovue-370. FINDINGS: LOWER CHEST: Discoid atelectasis. Normal size heart. No pericardial effusion. Mitral annular calcifications. HEPATOBILIARY: Normal. PANCREAS: Normal. SPLEEN: Normal. ADRENAL GLANDS: Normal. KIDNEYS/BLADDER: No bowel obstruction, c olitis, diverticulitis, or appendicitis. BOWEL: Large volume retained feces in th e rectal vault. Small amount of presacral and perirectal fat stranding. Diverticulosis. No diverticulitis, obstruction, or appendicitis. LYMPH NODES: Normal. VASCULATURE: No aneurysm. Tortuous ather osclerotic aorta. PELVIC ORGANS: Absent uterus. MUSCULOSKELETAL: Posterior fusion L2-L5. IMPRESSION: 1. Constipation with fecal impaction. 2. Perirectal inflammatory change, corre late to exclude stercoral colitis. Recommend follow-up to resolution. No organized fluid collection. 3. Diverticulosis. No diverticulitis. 4. Coronary artery disease and atheroscl erotic vascular disease. Caleb Dawn PA-C IMG CT ORDERABLES (ABNORMAL) CBC with platelets and differential (12/16/2020 9:38 PM CDT) [facility] Method Time Signature WBC Count 11.1 (H) 4.0 - 12/16/2020 [facility] 11.0 9:44 PM CDT 10e3/uL RBC Count 4.16 3.80 - 12/16/2020 [facility] 5.20 9:44 PM CDT 10e6/uL Hemoglobin 14.6 11.7 - 12/16/2020 [facility] 15.7 g/dL 9:44 PM CDT Hematocrit 42.9 35.0 - 12/16/2020 [facility] 47.0 % 9:44 PM CDT MCV 103 (H) 78 - 100 12/16/2020 [facility] fL 9:44 PM CDT MCH 35.1 (H) 26.5 - 12/16/2020 [facility] 33.0 pg 9:44 PM CDT MCHC 34.0 31.5 - 12/16/2020 [facility] 36.5 g/dL 9:44 PM CDT RDW 12.3 10.0 - 12/16/2020 [facility] 15.0 % 9:44 PM CDT Platelet Count 259 150 - 450 12/16/2020 [facility] 10e3/uL 9:44 PM CDT % Neutrophils 77 % 12/16/2020 [facility] 9:44 PM CDT % Lymphocytes 16 % 12/16/2020 [facility] 9:44 PM CDT % Monocytes 7 % 12/16/2020 [facility] 9:44 PM CDT % Eosinophils 0 % 12/16/2020 [facility] 9:44 PM CDT % Basophils 0 % 12/16/2020 [facility] 9:44 PM CDT % Immature 0 % 12/16/2020 [facility] Granulocytes 9:44 PM CDT NRBCs per 100 0 <1 /100 12/16/2020 [facility] WBC 9:44 PM CDT Absolute 8.5 (H) 1.6 - 8.3 12/16/2020 [facility] Neutrophils 10e3/uL 9:44 PM CDT Absolute 1.8 0.8 - 5.3 12/16/2020 [facility] Lymphocytes 10e3/uL 9:44 PM CDT Absolute 0.7 0.0 - 1.3 12/16/2020 [facility] Monocytes 10e3/uL 9:44 PM CDT Absolute 0.0 0.0 - 0.7 12/16/2020 [facility] Eosinophils 10e3/uL 9:44 PM CDT Absolute 0.0 0.0 - 0.2 12/16/2020 [facility] Basophils 10e3/uL 9:44 PM CDT Absolute 0.0 <=0.0 12/16/2020 [facility] Immature 10e3/uL 9:44 PM CDT Granulocytes Absolute NRBCs 0.0 10e3/uL 12/16/2020 [facility] 9:44 PM CDT Specimen Anatomical Collection Method / Collection Time Recei gama Time (Source) Location / Volume Laterality Blood STRUCTURE OF LEFT Venipuncture / 12/16/2020 9:38 12/16 9:42 UPPER LIMB / Unknown PM CDT PM CDT Unknown Caleb Dawn PA-C LAB - BLOOD ORDERABLES Performing Organization Address City/[facility]/[place] [address] Care Lab [address] Lab (1st floor, no room number) TSH with free T4 reflex (12/16/2020 9:38 PM CDT) P athologist Signature TSH 0.41 0.40 - 4.00 12/16/2020 [facility] mU/L 10:09 PM CDT Specimen Anatomical Collection Method / Collection Time Recei gama Time (Source) Location / Volume Laterality Blood STRUCTURE OF LEFT Venipuncture / 12/16/2020 9:38 12/16 9:42 UPPER LIMB / Unknown PM CDT PM CDT Unknown Caleb Dawn PA-C LAB - BLOOD ORDERABLES Performing Organization Address City/State/[place] [address] Care Lab [address] Lab (1st floor, no room number) (ABNORMAL) Comprehensive metabolic panel (12/16/2020 9:38 PM CDT) [facility] Method Time Signature Sodium 134 133 - 144 12/16/2020 LAB[facility]AT[facility] mmol/L 10:01 PM CDT Potassium 4.1 3.4 - 5.3 12/16/2020 [facility] mmol/L 10:01 PM CDT Chloride 100 94 - 109 12/16/2020 [facility] mmol/L 10:01 PM CDT Carbon Dioxide 27 20 - 32 12/16/2020 [facility] (CO2) mmol/L 10:01 PM CDT Anion Gap 7 3 - 14 12/16/2020 [facility] mmol/L 10:01 PM CDT Urea Nitrogen 4 (L) 7 - 30 12/16/2020 [facility] mg/dL 10:01 PM CDT Creatinine 0.55 0.52 - 12/16/2020 [facility] 1.04 mg/dL 10:01 PM CDT Calcium 8.9 8.5 - 10.1 12/16/2020 [facility] mg/dL 10:01 PM CDT Glucose 89 70 - 99 12/16/2020 [facility] mg/dL 10:01 PM CDT Alkaline 89 40 - 150 12/16/2020 [facility] Phosphatase U/L 10:01 PM CDT AST 23 0 - 45 U/L 12/16/2020 [facility] 10:01 PM CDT ALT 43 0 - 50 U/L 12/16/2020 [facility] 10:01 PM CDT Protein Total 6.2 (L) 6.8 - 8.8 12/16/2020 [facility] g/dL 10:01 PM CDT Albumin 3.2 (L) 3.4 - 5.0 12/16/2020 [facility] g/dL 10:01 PM CDT Bilirubin Total 0.7 0.2 - 1.3 12/16/2020 [facility] mg/dL 10:01 PM CDT GFR Estimate >90 >60 12/16/2020 [facility] mL/min/1.7 10:01 PM CDT 3m2 Comment: As of September 09, 2020, eGFR is ca lculated by the CKD-EPI creatinine equation, without race adjustment. eGFR can be inf luenced by muscle mass, exercise, and diet. The reported eGFR is an estimation only and is only applicable if the renal function is stable. Specimen Anatomical Collection Method / Collection Time Recei gama Time (Source) Location / Volume Laterality Blood STRUCTURE OF LEFT Venipuncture / 12/16/2020 9:38 12/16 9:42 UPPER LIMB / Unknown PM CDT PM CDT Unknown Caleb Dawn PA-C LAB - BLOOD ORDERABLES Performing Organization Address City/State/ZIP Code Phon e Number [facility] [place] [id number] Care Lab [address] Lab (1st floor, no room number) documented in this encounter Visit Diagnoses Diagnosis Constipation with Fecal impaction Unspecified constipation Stercoral colitis Coronary artery calcification Generalized muscle weakness Muscle weakness (generalized) documented in this encounter Admitting Diagnoses Diagnosis Generalized muscle weakness Muscle weakness (generalized) documented in this encounter Administered Medications Inactive Administered Medications - up to 3 most recent administrations Medication Order MAR Action Action Date Dose Rate Site 0.9% sodium chloride BOLUS New Bag 12/17/2020 12:44 AM 1,000 mLs 2000 mL/hr Intravenous, 1,000 mL, CDT ONCE, at 2,000 mL/hr, Administer over 30 Minutes, On Thu12/17/20 at 0045, For 1 dose calcium carbonate-vitamin D (OS-SERG with D) Given 11/30 7:56 AM CDT 1 tablet per tablet 1 tablet 1 tablet, Oral, 2 TIMES DAILY, First dose on Thu12/17/20 at 0800 Given 12/17/2020 7:53 PM CDT 1 tablet Given 12/17/2020 11:22 AM CDT 1 tablet enoxaparin ANTICOAGULANT (LOVENOX) injection Given 10:08 AM CDT 40 mg 40 mg 40 mg, Subcutaneous, EVERY 24 HOURS, First dose on Thu12/17/20 at 0900 fentaNYL (PF) (SUBLIMAZE) injection 50 m cg Given 12/16/2020 10:45 PM CDT 50 mcg 50 mcg, Intravenous, ONCE, On Thu12/16/20 at 2230, For 1 dose furosemide (LASIX) tablet 40 mg Given 12/18/2020 8:34 AM CDT 40 mg 40 mg, Oral, DAILY, First dose on Thu12/17/20 at 1130 Given 12/17/2020 12:02 PM CDT 40 mg HYDROcodone-acetaminophen (NORCO) 5-325 MG Given 12/17 1:47 AM CDT 1 tablet per tablet 1 tablet 1 tablet, Oral, ONCE, On Thu12/17/20 at 0140, For 1 dose, Maximum acetaminophen dose from all sources= 75 mg/kg/day not to exceed 4 grams HYDROcodone-acetaminophen (NORCO) 5-325 MG Given 12/18 11:15 AM CDT 1 tablet per tablet 1 tablet 1 tablet, Oral, 3 TIMES DAILY PRN, moderate to severe pain, Starting on Thu12/17/20 at 0246, Maximum acetaminophen dose from all sources= 75 mg/kg/day not to exceed 4 grams Given 12/18/2020 3:08 AM CDT 1 tablet Given 12/17/2020 7:59 PM CDT 1 tablet iopamidol (ISOVUE-370) solution 500 mL Given 12/16/2020 11:25 PM CDT 78 mLs 500 mL, Intravenous, ONCE, On Thu12/16/20 at 2325, For 1 dose latanoprost (XALATAN) 0.005 % ophthalmic Given 12/17/2020 9:27 P M CDT 1 drop solution 1 drop 1 drop, Both Eyes, AT BEDTIME, First dose on Thu12/17/20 at 2200, May use own home med methadone (DOLOPHINE) tablet 5 mg Given 12/17/2020 2:06 AM CDT 5 mg 5 mg, Oral, ONCE, On Thu12/17/20 at 0140, For 1 dose, Indication: Maintenance methadone (DOLOPHINE) tablet 5 mg Given 12/18/2020 7:56 AM CDT 5 mg 5 mg, Oral, 2 TIMES DAILY, First dose on Thu12/17/20 at 0800, Indication: Maintenance Given 12/17/2020 7:53 PM CDT 5 mg Given 12/17/2020 11:16 AM CDT 5 mg methylnaltrexone (RELISTOR) injection 12 mg Given 12/17/2020 12:10 AM CDT 12 mg 12 mg, Subcutaneous, ONCE, On Thu12/17/20 at 0000, For 1 dose multivitamin w/minerals (THERA-VIT-M) Given 12/18/2020 7:56 AM C DT 1 tablet tablet 1 tablet 1 tablet, Oral, DAILY, First dose on Thu12/17/20 at 0800 Given 12/17/2020 11:22 AM CDT 1 tablet naloxegol tablet 25 mg Given 12/17/2020 8:37 AM CDT 25 mg 25 mg, Oral, EVERY MORNING BEFORE BREAKFAST, First dose on Thu12/17/20 at 0730 naloxone (NARCAN) injection 0.2 mg 0.2 mg, Intravenous, EVERY 2 MIN PRN, op ioid reversal, Starting on Thu12/17/20 at 0335, Administer intravenous route when available and notify provider when administered. For unintended sedation or respiratory depression if all of the below criteria are met: ~ respiratory rate LES S than or EQUAL to 8. ~SaO2 less than 92% and or/end-tidal CO2 is greater than 50. ~ the patient is receiving an opioid, has unintended sedations assessed as RASS (-3), and is cur rently not on mechanical ventilation. RASS scale moderate (-3) is movement or eye opening to voice but no eye contact. Patient Monitoring Once the patient has demonstrated a response to the naloxone, continue to monitor respiratory rate, depth, oxygen saturation and end-tidal CO2 (if available) every 15 mi nutes x 2, then every 30 minutes x 2, then every 1 hour x 1 after each naloxone dose. Consider tr ansfer to ICU if patient respiratory parameters have not improved after 4 nalox one doses. naloxone (NARCAN) injection 0.2 mg 0.2 mg, Intramuscular, EVERY 2 MIN PRN, opioid reversal, Starting on Thu12/17/20 at 0335, Administer intramuscular if an intravenous ro sindhu is not available and notify provider when administered. For unintended mag tion or respiratory depression if all of the below criteria are met: ~ respiratory rate LESS than or EQUAL to 8. ~SaO2 less than 92% and or/end-tidal CO2 i s greater than 50. ~ the patient is receiving an opioid, has unin tended sedations assessed as RASS (-3), and is currently not on mechanical ventilati on. RASS scale moderate (-3) is movement or eye opening to voice but no eye contact. Patient Monitoring Once the patient has demonstrated a response to the naloxone, continue to m onitor respiratory rate, depth, oxygen saturation and end-tidal CO2 (if availab le) every 15 minutes x 2, then every 30 minutes x 2, then every 1 hour x 1 after each naloxone dose. Consider transfer to ICU if patient respiratory parameters have not improved after 4 naloxone doses. naloxone (NARCAN) injection 0.4 mg 0.4 mg, Intravenous, EVERY 2 MIN PRN, op ioid reversal, Starting on Thu12/17/20 at 0335, Administer intravenous route when available and notify provider when administered. For unintended sedation or respiratory depression if all of the below criteria are met: ~ respiratory rate LES S than or EQUAL to 8. ~ SaO2 less than 92% and or/end-tidal CO2 is greater than 50. ~ the patient is receiving an opioid, has unintended sedation assessed as RASS (-4 ) or (-5) and patient is currently not on mechanical ventilation. RASS scale (-4) is deep sedation with no response to voice but movement or eye opening to physical stimulation. R ASS scale (-5) is unarousable. Patient Monitoring Once the patient has demonstrated a response to the naloxone, continue to monitor respiratory rate, depth, oxygen saturation and end-tidal CO2 (if available) every 15 mi nutes x 2, then every 30 minutes x 2, then every 1 hour x 1 after each naloxone dose. Consider tr ansfer to ICU if patient respiratory parameters have not improved after 4 nalox one doses. naloxone (NARCAN) injection 0.4 mg 0.4 mg, Intramuscular, EVERY 2 MIN PRN, opioid reversal, Starting on Thu12/17/20 at 0335, Administer intramuscular if an intravenous ro sindhu is not available and notify provider when administered. For unintended mag tion or respiratory depression if all of the below criteria are met: ~ respiratory rate LESS than or EQUAL to 8. ~ SaO2 less than 92% and or/end-tidal CO2 is greater than 50. ~ the patient is receiving an opioid, has unin tended sedation assessed as RASS (-4) or (-5) and patient is currently not on mechanical ventil ation. RASS scale (-4) is deep sedation with no response to voice but movement o r eye opening to physical stimulation. RASS scale (-5) is unarousa ble. Patient Monitoring Once the patient has demonstrated a response to the nalox one, continue to monitor respiratory rate, depth, oxygen saturation and end-tidal CO2 (if availab le) every 15 minutes x 2, then every 30 minutes x 2, then every 1 hour x 1 after each naloxone dose. Consider transfer to ICU if patient respiratory parameters have not improved after 4 naloxone doses. ondansetron (ZOFRAN) injection 4 mg 4 mg, Intravenous, EVERY 6 HOURS PRN, nausea, vomiting , Administer over 2-5 Minutes, Starting on Thu12/17/20 at 024 5, Give IF patient unable to tolerate oral medication. This is Step 1 of nausea and vomiting marshall gement. If nausea not resolved in 15 minutes, go to Step 2 prochlorperazine (COMPAZINE). Irritant. ondansetron (ZOFRAN-ODT) ODT tab 4 mg 4 mg, Oral, EVERY 6 HOURS PRN, nausea, v omiting, Starting on Thu12/17/20 at 0245, This is Step 1 of nausea and vomiting management. If n ausea not resolved in 15 minutes, go to Step 2 prochlorperazine ( COMPAZINE). With dry hands, peel back foil backing and gently remove tablet. Do not push oral disintegrating tablet through foil backing. Administer immediately on tongue and ora l disintegrating tablet dissolves in seconds, then swallow with saliva. Liquid not required. pantoprazole (PROTONIX) EC tablet 20 mg Given 12/17/2020 10:08 AM CDT 20 mg 20 mg, Oral, DAILY, First dose on Thu12/17/20 at 0800, Formulary alternate for nexium pantoprazole (PROTONIX) EC tablet 40 mg Given 12/18/2020 7:56 AM CDT 40 mg 40 mg, Oral, DAILY, First dose (after last modification) on Thu12/18/20 at 0800, Formulary alternate for nexium 20mg pink lady enema (COMPOUNDED: docusate, Given 12/17/2020 12:00 AM CDT 286 mLs magnesium citrate, mineral oil, sodium phosphate) 286 mL, Rectal, ONCE, On Thu12/16/20 at 2355, For 1 dose potassium chloride ER (KLOR-CON M) CR tablet Given 7:57 AM CDT 40 mEq 40 mEq 40 mEq, Oral, DAILY, First dose on Thu12/17/20 at 1130, DO NOT CRUSH Given 12/17/2020 12:02 PM CDT 40 mEq prochlorperazine (COMPAZINE) injection 5 mg 5 mg, Intravenous, EVERY 6 HOURS PRN, nausea, vomiting , Administer over 1-2 Minutes, Starting on Thu12/17/20 at 024 5, Give IF patient unable to tolerate oral medication. This is Step 2 of nausea and vomiting management. Give if nausea not resolved 15 minutes after giving ondanse amairani (ZOFRAN). If nausea not resolved in 15-30 minutes, Notify provider. prochlorperazine (COMPAZINE) suppository 12.5 mg 12.5 mg, Rectal, EVERY 12 HOURS PRN, jim sea, vomiting, Starting on Thu12/17/20 at 0245, This is Step 2 of nausea and vomit ing management. Give if nausea not resolved 15 minutes after giving ondansetron (ZOFRAN). If nause a not resolved in 15-30 minutes, Notify provider. prochlorperazine (COMPAZINE) tablet 5 mg 5 mg, Oral, EVERY 6 HOURS PRN, vomiting, Starting on Thu12/17/20 at 0245, This is Step 2 of nausea and vomiting management . Give if nausea not resolved 15 minutes after giving ondansetron (ZOFRAN). If na usea not resolved in 15-30 minutes, Notify provider. saccharomyces boulardii (FLORASTOR) capsule Given 12/18/2020 7:56 AM CDT 250 mg 250 mg 250 mg, Oral, 2 TIMES DAILY, First dose on Thu12/17/20 at 0800, Capsules may be opened and sprinkled on semisolid food or added to beverage. Given 12/17/2020 7:53 PM CDT 250 mg Given 12/17/2020 11:16 AM CDT 250 mg simvastatin (ZOCOR) tablet 10 mg Given 12/17/2020 12:02 PM CDT 10 mg 10 mg, Oral, EVERY OTHER DAY, First dose on Thu12/17/20 at 0900 Sodium Chloride 0.9 % Bag 500mL for CT Scan Given 11/30 11:25 PM CDT 59 mLs Flush Use Intravenous, 100 mL, ONCE, On 12/16/20 at 2325, For 1 dose, This entry is for use by Radiology to intermittently used as a flush in patients receiving a CT scan. sodium chloride 0.9% infusion Rate/Dose Verify 12/17/2020 8:34 AM CDT 100 mL/hr at 100 mL/hr, Intravenous, CONTINUOUS, Starting on Thu12/17/20 at 0300, Until Thu12/17/20 at 1254 New Bag 12/17/2020 3:23 AM CDT 100 mL/hr spironolactone (ALDACTONE) tablet 25 mg Given 12/18/2020 8:34 AM CDT 25 mg 25 mg, Oral, EVERY MORNING, First dose on Thu12/17/20 at 1130 Given 12/17/2020 12:02 PM CDT 25 mg traZODone (DESYREL) tablet 50 mg Given 12/17/2020 1:47 AM CDT 50 mg 50 mg, Oral, ONCE, On Thu12/17/20 at 0140, For 1 dose traZODone (DESYREL) tablet 50 mg Given 12/17/2020 9:26 PM CDT 50 mg 50 mg, Oral, AT BEDTIME PRN, sleep, Starting on Thu12/17/20 at 0245 witch hi-glycerin (TUCKS) pad Topical, EVERY 1 HOUR PRN, hemorrhoids, Starting on Thu12/17/20 at 1019, Apply to anus/hemorrhoids documented in this encounter Active and Recently Administered Medications Times are shown in CDT. Scheduled Medication Order 12/16/2020 12/17/2020 12/18/2020 0.9% sodium chloride BOLUS (COMPLETED) 0 044 (New Bag - Provider: Cristina Fraga, SANTOS)0148 (Stopped - Provider: Clark Madison RN) Intravenous, 1,000 mL, ONCE, at 2,000 mL /hr, Administer over 30 Minutes, On Thu12/17/20 at 0045, For 1 dose calcium carbonate-vitamin D (OS-SERG with D) per tablet 1 tab let 1122 (Given - Provider: Reggie Langford, SANTOS)1953 (Given - Provider: Elfego Randall) 0756 (Given - Provider: Linda Avery, SANTOS) 1 tablet, Oral, 2 TIMES DAILY, First dose on Thu12/17/20 at 080 0 enoxaparin ANTICOAGULANT (LOVENOX) injection 40 mg 1008 (Given - Provider: Reggie Langford, SANTOS) 0834 (Not Given - Provider: Linda Avery, SANTOS - Reason: Patient/family refused) 40 mg, Subcutaneous, EVERY 24 HOURS, First dose on Thu12/17/20 at 0900 fentaNYL (PF) (SUBLIMAZE) injection 50 mcg (COMPLETED) 2245 (Given - Provider: Kendal Ann RN) 50 mcg, Intravenous, ONCE, On Thu12/16/20 at 2230, For 1 dose furosemide (LASIX) tablet 40 mg 1202 (Given - Pr ovider: Reggie Langford RN) 0834 (Given - Provider: Linda Avery, SANTOS) 40 mg, Oral, DAILY, First dose on Thu12/17/20 at 1130 HYDROcodone-acetaminophen (NORCO) 5-325 MG per tablet 1 tabl et (COMPLETED) 0147 (Given - Provider: Clark Madison RN) 1 tablet, Oral, ONCE, On Thu12/17/20 at 0140, For 1 dose, Maximum acetaminophen dose from all sources= 75 mg/kg/day not to exceed 4 grams iopamidol (ISOVUE-370) solution 500 mL (COMPLETED) 232 5 (Given - Provider: Alxeandru Oneal - Comment: Bulk) 500 mL, Intravenous, ONCE, On Hooper 12/16/20 at 2325, For 1 dose latanoprost (XALATAN) 0.005 % ophthalmic solution 1 drop 2127 (Given - Provider: Mor T Tonia) 1 drop, Both Eyes, AT BEDTIME, First dos e on Thu12/17/20 at 2200, May use own home med methadone (DOLOPHINE) tablet 5 mg (COMPLETED) 0206 (Given - Provider: Clark Madison RN) 5 mg, Oral, ONCE, On Thu12/17/20 at 0140, For 1 dose, Indic ation: Maintenance methadone (DOLOPHINE) tablet 5 mg 1116 ( Given - Provider: Reggie Langford RN)1953 (Given - Provider: Mor T Tonia) 0756 (Given - Provider: Linda Avery, SANTOS) 5 mg, Oral, 2 TIMES DAILY, First dose on Thu12/17/20 at 0800, Indication: Maintenance methylnaltrexone (RELISTOR) injection 12 mg (COMPLETED) 0010 (Given - Provider: Cristina Fraga RN) 12 mg, Subcutaneous, ONCE, On Thu12/17/20 at 0000, For 1 dose multivitamin w/minerals (THERA-VIT-M) tablet 1 tablet 1122 (Given - Provider: Reggie Langford RN) 0756 (Given - Provider: Linda dobbs, SANTOS) 1 tablet, Oral, DAILY, First dose on Thu12/17/20 at 0800 naloxegol tablet 25 mg (CANCELED) 0837 ( Given - Provider: Reggie Langford RN) 25 mg, Oral, EVERY MORNING BEFORE BREAKFAST, First dos e on Thu12/17/20 at 0730 pantoprazole (PROTONIX) EC tablet 20 mg (CANCELED) 1008 (Given - Provider: Reggie aLngford RN) 20 mg, Oral, DAILY, First dose on Thu at 0800, Formulary alternate for nexium pantoprazole (PROTONIX) EC tablet 40 mg 0756 (Given - Provider: Linda Avery RN) 40 mg, Oral, DAILY, First dose (after la st modification) on Thu12/18/20 at 0800, Formulary alternate for nexium 20mg pink lady enema (COMPOUNDED: docusate, m agnesium citrate, mineral oil, sodium phosphate) (COMPLETED) 0000 (Given - Provider: Cristina cooper RN) 286 mL, Rectal, ONCE, On Thu12/16/20 at 2355, For 1 dose polyethylene glycol (MIRALAX) Packet 17 g 1004 (Not Given - Provider: Reggie Langford RN - Reason: Order parameters not met - Comment: loose stools)1213 (Held by provider - Provider: Uma Brar PA-C - Reason: Other) 0800 (Automatically Held - Provider: Uma Brar PA-C)1636 (Unheld by provider - Provider: Orders Generic Provider) 17 g, Oral, DAILY, First dose on Thu at 0800, 1 Packet = 17 grams. Mix each gram with at least 1/2 ounce (15 mL) of water - 8 ounces for 17 g dose, 4 ounces for 8.5 g dose, 2 ounces for 4 g dos e. Follow with the same volume of water. Hold for loose stools. potassium chloride ER (KLOR-CON M) CR tablet 40 mEq 1202 (Given - Provider: Reggie Langford RN) 0757 (Given - Provider: Linda dobbs, SANTOS) 40 mEq, Oral, DAILY, First dose on Thu12/17/20 at 1130, DO NOT CRUSH saccharomyces boulardii (FLORASTOR) capsule 250 mg 1116 (Given - Provider: Reggie Langford RN)1953 (Given - Provider: Elfego Randall) 0756 (Given - Provider: Linda Avery RN) 250 mg, Oral, 2 TIMES DAILY, First dose on Thu12/17/20 at 0800, Capsules may be opened and sprinkled on semisolid food or added to beverage. simvastatin (ZOCOR) tablet 10 mg 1202 (Given - P rovider: Reggie Langford RN) 10 mg, Oral, EVERY OTHER DAY, First dose on Thu12/17/20 at 0900 Sodium Chloride 0.9 % Bag 500mL for CT Scan Flush Use (COMPLETED) 2325 (Given - Provider: Alexandru Oneal) Intravenous, 100 mL, ONCE, On Thu at 2325, For 1 dose, This entry is for use by Radiology to intermittently used as a flush in patients receiving a CT scan. spironolactone (ALDACTONE) tablet 25 mg 1202 (Given - Provider: Reggie Langford RN) 0834 (Given - Provider: Linda dobbs RN) 25 mg, Oral, EVERY MORNING, First dose on Thu12/17/20 at 1130 traZODone (DESYREL) tablet 50 mg (COMPLETED) 0147 (Given - Provider: Clark Madison RN) 50 mg, Oral, ONCE, On Thu12/17/20 at 0140, For 1 dose Continuous Medication Order 12/16/2020 12/17/2020 12/18/2020 sodium chloride 0.9% infusion (CANCELED) 0323 (New Bag - Provider: Jacky Mejia RN)0834 (Rate/Dose Verify - Provider: Reggie Langford RN)1254 (Stopped - Provider: Reggie Langford RN) at 100 mL/hr, Intravenous, CONTINUOUS, S tarting on Thu12/17/20 at 0300, Until Thu12/17/20 at 1254 PRN Medication Order 12/16/2020 12/17/2020 12/18/2020 albuterol (PROAIR HFA/PROVENTIL HFA/VENT ROMULO HFA) 108 (90 Base) MCG/ACT inhaler 2 puff 2 puff, Inhalation, EVERY 4 HOURS PRN, s hortness of breath / dyspnea, wheezing, Starting on Thu12/17/20 at 0245, Check the dose counter on the inhaler to ensure there are doses remaining before administering. HYDROcodone-acetaminophen (NORCO) 5-325 MG per tablet 1 tabl et 033 (Given - Provider: Jacky Mejia, SANTOS)111 (Given - Provider: Reggie Langford RN)1958 (Given - Provider: Mor T Tonia) 030 (Given - Provider: Mor T Tonia)111 ( Given - Provider: Catalina Cash RN) 1 tablet, Oral, 3 TIMES DAILY PRN, moder ate to severe pain, Starting on Thu12/17/20 at 0246, Maximum acetaminophen dose from all sources= 75 mg/kg/day not to exceed 4 grams melatonin tablet 1 mg 1 mg, Oral, AT BEDTIME PRN, sleep, Start ing on Thu12/17/20 at 0245, Do not give unless at least 6 hours of uninterrupted sleep is expected. naloxone (NARCAN) injection 0.2 mg(Linked Group 1) 0.2 mg, Intravenous, EVERY 2 MIN PRN, op ioid reversal, Starting on Thu12/17/20 at 0335, Administer intravenous route when available and notify provider when administered. For unintended sedation or res piratory depression if all of the below criteria are met: ~ respiratory rate LESS than or EQUAL to 8. ~SaO2 less than 92% and or/end-tidal CO2 is greater than 50. ~ the patient is receiving an opioid, h as unintended sedations assessed as RASS (-3), and is currently not on mechanical ventilation. RASS scale moderate (-3) is movement or eye opening to voice but no eye contact. Patient Monitoring Once th e patient has demonstrated a response to the naloxone, continue to monitor respiratory rate, depth, oxygen saturation and end-tidal CO2 (if available) every 15 minutes x 2, then every 30 minutes x 2, th en every 1 hour x 1 after each naloxone dose. Consider transfer to ICU if patient respiratory parameters have not improved after 4 naloxone doses. naloxone (NARCAN) injection 0.2 mg(Linked Group 1) 0.2 mg, Intramuscular, EVERY 2 MIN PRN, opioid reversal, Starting on Thu12/17/20 at 0335, Administer intramuscular if an intravenous route is not available and notify provider when administered. For un intended sedation or respiratory depress ion if all of the below criteria are met: ~ respiratory rate LESS than or EQUAL to 8. ~SaO2 less than 92% and or/end- tidal CO2 is greater than 50. ~ the patient i s receiving an opioid, has unintended se dations assessed as RASS (-3), and is currently not on mechanical ventilation. RASS scale moderate (-3) is movement or eye opening to voice but no eye contact. Pa tient Monitoring Once the patient has de monstrated a response to the naloxone, continue to monitor respiratory rate, depth, oxygen saturation and end-tidal CO2 (if available) every 15 minutes x 2, then every 30 minutes x 2, then every 1 hour x 1 after each naloxone dose. Consider transfer to ICU if patient respiratory parameters have not improved after 4 naloxone doses. naloxone (NARCAN) injection 0.4 mg(Linked Group 1) 0.4 mg, Intravenous, EVERY 2 MIN PRN, op ioid reversal, Starting on Thu12/17/20 at 0335, Administer intravenous route when available and notify provider when administered. For unintended sedation or res piratory depression if all of the below criteria are met: ~ respiratory rate LESS than or EQUAL to 8. ~ SaO2 less than 92% and or/end-tidal CO2 is greater than 50. ~ the patient is receiving an opioid, has unintended sedation assessed as RASS (-4) or (-5) and patient is currently not on mechanical ventilation. RASS scale (-4) is deep sedation with no response to voice but movement or eye opening to ph ysical stimulation. RASS scale (-5) is u narousable. Patient Monitoring Once the patient has demonstrated a response to the naloxone, continue to monitor respiratory rate, depth, oxygen saturation and en d-tidal CO2 (if available) every 15 logan renuka x 2, then every 30 minutes x 2, then every 1 hour x 1 after each naloxone dose. Consider transfer to ICU if patient respiratory parameters have not improved after 4 naloxone doses. naloxone (NARCAN) injection 0.4 mg(Linked Group 1) 0.4 mg, Intramuscular, EVERY 2 MIN PRN, opioid reversal, Starting on Thu12/17/20 at 0335, Administer intramuscular if an intravenous route is not available and notify provider when administered. For un intended sedation or respiratory depress ion if all of the below criteria are met: ~ respiratory rate LESS than or EQUAL to 8. ~ SaO2 less than 92% and or/end-tidal CO2 is greater than 50. ~ the patient is receiving an opioid, has unintended s edation assessed as RASS (-4) or (-5) and patient is currently not on mechanical ventilation. RASS scale (-4) is deep sedation with no response to voice but movem ent or eye opening to physical stimulati on. RASS scale (-5) is unarousable. Patient Monitoring Once the patient has demonstrated a response to the naloxone, continue to monitor respiratory rate, depth, oxygen saturation and end-tidal CO2 (if available) every 15 minutes x 2, then every 30 minutes x 2, then every 1 hour x 1 after each naloxone dose. Consider transfer to ICU if patient respiratory parameters have not improved after 4 naloxone doses. olopatadine (PATANOL) 0.1 % ophthalmic solution 1 drop 1 drop, Both Eyes, 2 TIMES DAILY PRN, al lergies, Starting on Thu12/17/20 at 1126, May use own home med ondansetron (ZOFRAN) injection 4 mg(Linked Group 2) 4 mg, Intravenous, EVERY 6 HOURS PRN, na usea, vomiting, Administer over 2-5 Minutes, Starting on Thu12/17/20 at 0245, Give IF patient unable to tolerate oral medication. This is Step 1 of nausea and vo miting management. If nausea not resolve d in 15 minutes, go to Step 2 prochlorperazine (COMPAZINE). Irritant. ondansetron (ZOFRAN-ODT) ODT tab 4 mg(Linked Group 2) 4 mg, Oral, EVERY 6 HOURS PRN, nausea, v omiting, Starting on Thu12/17/20 at 0245, This is Step 1 of nausea and vomiting management. If nausea not resolved in 15 minutes, go to Step 2 prochlorperazine ( COMPAZINE). With dry hands, peel back fo il backing and gently remove tablet. Do not push oral disintegrating tablet through foil backing. Administer immediately on tongue and oral disintegrating tablet dissolves in seconds, then swallow with saliva. Liquid not requi red. prochlorperazine (COMPAZINE) injection 5 mg(Linked Group 3) 5 mg, Intravenous, EVERY 6 HOURS PRN, na usea, vomiting, Administer over 1-2 Minutes, Starting on Thu12/17/20 at 0245, Give IF patient unable to tolerate oral medication. This is Step 2 of nausea and vo miting management. Give if nausea not re solved 15 minutes after giving ondansetron (ZOFRAN). If nausea not resolved in 15-30 minutes, Notify provider. prochlorperazine (COMPAZINE) suppository 12.5 mg(Linked Group 3) 12.5 mg, Rectal, EVERY 12 HOURS PRN, jim sea, vomiting, Starting on Thu12/17/20 at 0245, This is Step 2 of nausea and vomiting management. Give if nausea not resolved 15 minutes after giving ondansetron (ZOFRAN). If nausea not resolved in 15-30 minutes, Notify provi fredy. prochlorperazine (COMPAZINE) tablet 5 mg(Linked Group 3) 5 mg, Oral, EVERY 6 HOURS PRN, vomiting, Starting on Thu12/17/20 at 0245, This is Step 2 of nausea and vomiting management. Give if nausea not resolved 15 minutes after giving ondansetron (ZOFRAN). If nausea not resolved in 15-30 minutes, Notify provider. traZODone (DESYREL) tablet 50 mg 2125 (Given - P rovider: Mor T Tnoia) 50 mg, Oral, AT BEDTIME PRN, sleep, Starting on Thu12/17/20 at 0245 witch hi-glycerin (TUCKS) pad Topical, EVERY 1 HOUR PRN, hemorrhoids, Starting on Thu12/17/20 at 1019, Apply to anus/hemorrhoids Linked Groups Order Group 1: naloxone (NARCAN) injection 0.2 mgJump to med 0.2 mg, Intravenous, EVERY 2 MIN PRN, op ioid reversal, Starting on Thu12/17/20 at 0335
Administer intravenous route when available and notify provider when administered. For unintende d sedation or respiratory depression if all of the below criteria are met: ~ respiratory rate LESS than or EQUAL to 8. ~SaO2 less than 92% and or/end-tidal CO2 is greater than 50.&amp ;nbsp;~ the patient is receiving an opio id, has unintended sedations assessed as RASS (-3), and is currently not on mechanical ventilation. RASS scale moderate (-3) is movement or eye opening to voice but no eye contact.&nb sp; Patient Monitoring Once the patient has demonstrated a response to the naloxone, continue to monitor respiratory rate, depth, oxygen sat uration and end-tidal CO2 (if available) every 15 minutes x 2, then every 30 minutes x 2, then every 1 hour x 1 after each naloxone dose. Consider transfer to ICU if patient respirato ry parameters have not improved after 4 naloxone doses.
Or naloxone (NARCAN) injection 0.4 mgJump to med 0.4 mg, Intravenous, EVERY 2 MIN PRN, op ioid reversal, Starting on Thu12/17/20 at 0335
Administer intravenous route when available and notify provider when administered. For unintende d sedation or respiratory depression if all of the below criteria are met: ~ respiratory rate LESS than or EQUAL to 8. ~ SaO2 less than 92% and or/end-tidal CO2 is greater than 50.&amp ;nbsp;~ the patient is receiving an opio id, has unintended sedation assessed as RASS (-4) or (-5) and patient is currently not on mechanical ventilation. RASS scale (-4) is deep sedat ion with no response to voice but moveme nt or eye opening to physical stimulation. RASS scale (-5) is unarousable. Patient Monitoring O nce the patient has demonstrated a respo nse to the naloxone, continue to monitor respiratory rate, depth, oxygen saturation and end-tidal CO2 (if available) every 15 minutes x 2, then every 30 minutes x 2, then every 1 hour x 1 after each nal oxone dose. Consider transfer to ICU if patient respiratory parameters have not improved after 4 naloxone doses.
Or naloxone (NARCAN) injection 0.2 mgJump to med 0.2 mg, Intramuscular, EVERY 2 MIN PRN, opioid reversal, Starting on Thu12/17/20 at 0335
Administer intramuscular if an intravenous route is not available and notify provider when administered . For unintended sedation or respir atory depression if all of the below criteria are met: ~ respiratory rate LESS than or EQUAL to 8. ~SaO2 less than 92% and or/end-tidal CO2 is greater than 50. ~ the patient is receiving an opioid, has unintended sedations assessed as RASS (-3), and is currently not on mechanical ventilation. RASS scale moderate (-3) is movement or eye opening to voic e but no eye contact. Patient Monitoring Once the patient has demonstrated a response to the naloxone, continue to monitor respiratory rate, depth, oxygen saturation and end- tidal CO2 (if available) every 15 minutes x 2, then every 30 minutes x 2, then every 1 hour x 1 after each naloxone dose. Consider transfer to ICU if patient respiratory parameters shirley ve not improved after 4 naloxone doses.
Or naloxone (NARCAN) injection 0.4 mgJump to med 0.4 mg, Intramuscular, EVERY 2 MIN PRN, opioid reversal, Starting on Thu12/17/20 at 0335
Administer intramuscular if an intravenous route is not available and notify provider when administered . For unintended sedation or respir atory depression if all of the below criteria are met: ~ respiratory rate LESS than or EQUAL to 8. ~ SaO2 less than 92% and or/end-tidal CO2 is greater than 50. ~ the patient is receiving an opioid, has unintended sedation assessed as RASS (-4) or (-5) and patient is currently not on mechanical ventilation. RASS scale (-4) is deep sedation with no resp onse to voice but movement or eye opening to physical stimulation. RASS scale (-5) is unarousable. Patie nt Monitoring Once the patient has demonstrated a response to the naloxone, continue to monitor respiratory rate, depth, oxygen saturation and end-tidal CO2 (if available) every 15 minutes x 2, then every 30 minutes x 2, then every 1 hour x 1 after each naloxone dose. Consider transfer to ICU if patient respiratory parameters have not improved after 4 naloxone doses.
Group 2: ondansetron (ZOFRAN-ODT) ODT tab 4 mgJump to med 4 mg, Oral, EVERY 6 HOURS PRN, nausea, v omiting, Starting on Thu12/17/20 at 0245
This is Step 1 of nausea and vomiting management. If nausea not resolved in 15 minutes, go t o Step 2 prochlorperazine (COMPAZINE).&n bsp;With dry hands, peel back foil backing and gently remove tablet. Do not push oral disintegrating tablet through foil backing. Administer immediately on to ngue and oral disintegrating tablet diss olves in seconds, then swallow with saliva. Liquid not required.
Or ondansetron (ZOFRAN) injection 4 mgJump to med 4 mg, Intravenous, EVERY 6 HOURS PRN, na usea, vomiting, Administer over 2-5 Minutes, Starting on Thu12/17/20 at 0245
Give IF patient unable to tolerate oral medication. This is Step 1 of nausea and vomiting management. If n ausea not resolved in 15 minutes, go to Step 2 prochlorperazine (COMPAZINE). Irritant.
Group 3: prochlorperazine (COMPAZINE) injection 5 mgJump to med 5 mg, Intravenous, EVERY 6 HOURS PRN, na usea, vomiting, Administer over 1-2 Minutes, Starting on Thu12/17/20 at 0245
Give IF patient unable to tolerate oral medication. This is Step 2 of nausea and vomiting management. Give if nausea not resolved 15 minutes after giving ondansetron (ZOFRAN). If nausea not resolved in 15-30 minutes, Notify provider.
Or prochlorperazine (COMPAZINE) tablet 5 mgJump to med 5 mg, Oral, EVERY 6 HOURS PRN, vomiting, Starting on 12/17/20 at 0245
This is Step 2 of nausea and vomiting management. Give if nausea not resolved 15 minutes after giving ondansetron (ZOFR AN). If nausea not resolved in 15-3 0 minutes, Notify provider.
Or prochlorperazine (COMPAZINE) suppository 12.5 mgJump to med 12.5 mg, Rectal, EVERY 12 HOURS PRN, jim sea, vomiting, Starting on 12/17/20 at 0245
This is Step 2 of nausea and vomiting management. Give if nausea not resolved 15 minutes after giving ond ansetron (ZOFRAN). If nausea not re solved in 15-30 minutes, Notify provider.
documented in this encounter Additional Health Concerns Infection Onset Date Last Indicated Resolved Time Rule Out C-difficile 12/17/2020 12/17/2020 12/17/2020 2:59 AM CDT documented as of this encounter Care Teams Body Fitter Relationship Specialty Start Date End Date Idalmis Sloan PCP - General Family Practice 11/04/13 Madhav Matute MD Assigned Neuroscience 12/02/[id number] [facility] Provider [address] [place], [place] [address] documented as of this encounter
--- OUTSIDE RECORDS SUMMARY | 2021-11-12 14:46 | XMS_ITS | Encounter Summary ---
:1950 Author Organization [place] Address [address] [facility] [place] [address] Care Team Providers Name Role Phone LeviIdalmis stahl Primary Care Provider Madhav Matute MD Unavailable Encounter Details Date Type Department Care Team Description 01/10/2021 Orders Only [facility] Neurosurgery Reported, Patient Clinic [address] [place] [address] Social History Tobacco Use Types Packs/Day Years Used Date Never Smoker Smokeless Tobacco: Never Used Sex Assigned at Date Recorded Not on file documented as of this encounter Plan of Treatment Not on filedocumented as of this encounter Procedures Procedure Name Priority Date/Time Associated Diagnosis Comme nts STEROID INJECTION/NERVE BLOCK - HIM Routine 12/10/2020 SCAN documented in this encounter Results Steroid Injection/Nerve Block - HIM Scan (12/10/2020) Narrative This result has an attachment that is no t available. Patient Reported PROCEDURES documented in this encounter Visit Diagnoses Not on filedocumented in this encounter Care Teams Hose Tender Relationship Specialty Start Date End Date Idalmis Sloan PCP - General Family Practice 11/04/13 Madhav Matute MD Assigned Neuroscience 12/02/[id number] [facility] Provider [address] [place] [address] documented as of this encounter
--- OUTSIDE RECORDS SUMMARY | 2021-11-12 14:47 | XMS_ITS | Encounter Summary ---
:1950 Author Organization [place] Address [address] [place] [id number] Care Team Providers Name Role Phone Idalmis Sloan Primary Care Provider Encounter Details Date Type Department Care Team Description 02/25/2018 Travel Social History Tobacco Use Types Packs/Day Years Used Date Never Smoker Smokeless Tobacco: Never Used Sex Assigned at Date Recorded Not on file documented as of this encounter Plan of Treatment Not on filedocumented as of this encounter Visit Diagnoses Not on filedocumented in this encounter Care Teams Coordinator Volunteer Services Relationship Specialty Start Date End Date Idalmis Sloan PCP - General Family Practice 11/04/13 documented as of this encounter
--- OUTSIDE RECORDS SUMMARY | 2021-11-12 14:47 | XMS_ITS | Encounter Summary ---
:1950 Author Organization [facility] [place] Address [address] [place] [id number] Care Team Providers Name Role Phone Idalmis Sloan Primary Care Provider Encounter Details Date Type Department Care Team Description 03/23/2019 Travel Social History Tobacco Use Types Packs/Day Years Used Date Never Smoker Smokeless Tobacco: Never Used Sex Assigned at Date Recorded Not on file documented as of this encounter Plan of Treatment Not on filedocumented as of this encounter Visit Diagnoses Not on filedocumented in this encounter Care Teams Pier Hand Helper Relationship Specialty Start Date End Date Idalmis Sloan PCP - General Family Practice 11/04/13 documented as of this encounter
--- OUTSIDE RECORDS SUMMARY | 2021-11-12 14:47 | XMS_ITS | Encounter Summary ---
:1950 Author Organization [place] Address [address] [place] [address] Care Team Providers Name Role Phone Idalmis Sloan Primary Care Provider Ana Jacobs PA-C Unavailable Reason for Referral Diagnostic Imaging CT Scan (Routine) - Closed Specialty Diagnoses / Procedures Referred By Contact Refer red To Contact Diagnoses Acute bilateral low back pain with left-sided sciatica Ana Jacobs PA-C Procedures CT Lumbar Spine w/o Contrast [facility] [place] [address] Referral ID Status Reason Start Date Expiration Date Visits Requ ested Visits Authorized [id number] Closed 10/29/2020 10/29/2021 1 1 Reason for Visit Diagnostic Imaging CT Scan (Routine) - Closed Specialty Diagnoses / Procedures Referred By Contact Refer red To Contact Diagnoses Acute bilateral low back pain with left-sided sciatica Ana Jacobs PA-C Procedures CT Lumbar Spine w/o Contrast [facility] [address] [place] [address] [place] [address] Referral ID Status Reason Start Date Expiration Date Visits Requ ested Visits Authorized [id number] Closed 10/29/2020 10/29/2021 1 1 Encounter Details Date Type Department Care Team Description 11/08/2020 [facility] VIELKA Alcaraz back pain with [address] [facility] left-sided sciatica [facility] [id number] [phone] [place] [address] Social History Tobacco Use Types Packs/Day Years Used Date Never Smoker Smokeless Tobacco: Never Used Sex Assigned at Date Recorded Not on file COVID-19 Exposure Response Date Recorded In the last month, have you been in contact with No / Unsure 11/08/2020 2:34 PM CDT someone who was confirmed or suspected to have Coronavirus / COVID-19? documented as of this encounter Medications at Time of Discharge Medication Sig Dispensed Refills Start Date End Date albuterol (PROAIR Inhale 2 puffs into 0 HFA/PROVENTIL the lungs every 4 HFA/VENTOLIN HFA) 108 hours as needed for (90 Base) MCG/ACT shortness of breath inhaler / dyspnea or wheezing Calcium Take 1 tablet by 0 Carbonate-Vitamin D mouth 2 times daily (CALCIUM-CARB 600 + D PO) esomeprazole (NEXIUM) 20 Take 20 mg by mouth [address] capsule daily Take 30-60 minutes before eating. HYDROcodone-acetaminophe Take 1 tablet by 0 n (NORCO) 5-325 MG mouth 3 times daily tablet as needed for severe pain methadone (DOLOPHINE) 5 Take 5 mg by mouth 2 0 MG tablet times daily multivitamin w/minerals Take 1 tablet by 0 (THERA-VIT-M) tablet mouth daily simvastatin (ZOCOR) 20 Take 10 mg by mouth 0 MG tablet every other day At PM traZODone (DESYREL) 50 Take 50 mg by mouth 0 MG tablet nightly as needed for sleep latanoprost (XALATAN) Place 1 drop into 0 021 0.005 % ophthalmic both eyes At Bedtime solution montelukast (SINGULAIR) Take 1 tablet by 0 2020 10 MG tablet mouth At Bedtime WIXELA INHUB 250-50 Inhale 1 puff into 0 10/30/19 21 MCG/DOSE inhaler the lungs daily cephALEXin (KEFLEX) 500 Take 1 capsule (500 14 capsule 0 08/201812/17/2020 MG capsuleIndications: mg) by mouth 2 times Cellulitis of right foot daily furosemide (LASIX) 40 MG Take 40 mg by mouth 0 12/17/2020 tablet daily Morning, After dinner potassium chloride ER Take 40 mEq by mouth 0 12/17/2020 (MICRO-K) 10 MEQ CR daily capsule saccharomyces anikadii Take 1 capsule (250 14 capsule 0 08/201812/17/2020 (FLORASTOR) 250 MG mg) by mouth 2 times capsuleIndications: daily Cellulitis of right foot simvastatin (ZOCOR) 20 Take 20 mg by mouth 0 12/17/2020 MG tablet every other day At PM documented as of this encounter Plan of Treatment Not on filedocumented as of this encounter Procedures Procedure Name Priority Date/Time Associated Diagnosis Comme nts CT LUMBAR SPINE W/O Routine 11/08/2020 3:15 PM Acute bilateral low Results for this CONTRAST CDT back pain with procedure are in left-sided sciatica the resu lts section. documented in this encounter Results CT Lumbar Spine w/o Contrast (11/08/2020 3:15 PM CDT) Anatomical Region Laterality Modality Spine, SUBRAD CT NEURO, UMP CT SPINE, RAD CT Computed Tomography Specimen (Source) Anatomical Location Collection Method / Collectio n Time Received Time / Laterality Volume Impressions 11/09/2020 9:11 AM CDT IMPRESSION: ?? 1. Postoperative changes with posterior fixation from L2 through L5. Surgical hardware appears intact. No saskia dence of hardware loosening. 2. No spinal canal narrowing at the post operative levels. Moderate left and mild right neural foraminal forrest rowing at L4-L5. 3. Marked degenerative changes at the L1 -L2 level above the fusion where there is severe right and moderate left neural foraminal narrowing. 4. Additional degenerative changes throu ghout the lumbar spine as detailed above. 5. No acute fracture or subluxation in t he lumbar spine. 6. Overall, no significant change since prior MR 06/22/2020. TORRES RIVAS MD SYSTEM ID: ??[id number] Narrative 11/09/2020 9:[address] LUMBAR SPINE WITHOUT CONTRAST ??11/08/2020 3:15 PM HISTORY: Low back pain, prior surgery, n ew symptoms. Acute bilateral low back pain with left-sided sciatica. TECHNIQUE: Axial images of the lumbar sp ine were obtained without intravenous contrast. Multiplanar reform ations were performed. Radiation dose for this scan was reduced using automated exposure control, adjustment of the mA and/or kV according to patient size, or iterative reconstruction technique. COMPARISON: Lumbar spine x-ray 10/29/2020 . Outside lumbar spine MR 06/22/2020. FINDINGS: ??There are five lumbar-type v ertebral bodies assumed for the purposes of this dictation. Posterior mary and screw fixation hardwar e is seen from L2 through L5 with bilateral pedicle screws at all tho se levels. Hardware appears intact. No significant lucency of the louie rgical screws to suggest loosening. The L2 pedicle screws abut th e superior endplate of L2 without obvious fracture deformity. Jose A ed convex left curvature of the lumbar spine centered at L1-L2. No o bvious loss of vertebral body height. Mild grade 1 anterolisthesis of L4 on L5. There is fusion of the posterior facets from L2 through L5. Level by level as follows: T11-T12: No significant loss of disc hei ght. No disc herniation. Mild left greater than right facet hypertroph y. No significant spinal canal or neural foraminal narrowing. T12-L1: No loss of disc height. No signi ficant disc herniation. Marked asymmetric right-sided facet hypertrophy . No spinal canal narrowing. Moderate right neural foraminal narrowin g. No left neural foraminal narrowing. L1-L2: Marked loss of disc height with s clerotic degenerative endplate changes, particularly towards the right. Circumferential disc bulge with endplate osteophytic spurring with the spurring more pronounced towards the right foraminal and far late ral region. Marked right greater than left facet hypertrophy. Pos terior decompression. No spinal canal narrowing. Severe right robert ral foraminal narrowing. Moderate left neural foraminal narrowing . L2-L3: Moderate loss of disc height with sclerotic degenerative endplate changes. Disc bulge in the left foraminal and far lateral region. Fused posterior facets with face t hypertrophy. Posterior decompression. No spinal canal narrowing . No significant right neural foraminal narrowing. No left neural fora rigo narrowing. L3-L4: Fusion across the disc space. No significant disc herniation. Fused posterior facets without facet hyp ertrophy. Posterior decompression. No spinal canal or neural foraminal narrowing. L4-L5: Mild grade 1 anterolisthesis. Mil d loss of disc height. Posterior disc bulge with left-sided unc inate spurring. Fused posterior facets with facet hypertrophy. Posterior decompression. No spinal canal narrowing. Mild right neura l foraminal narrowing. Moderate left neural foraminal narrowing . L5-S1: Mild loss of disc height. Circumf erential disc bulge with mild uncinate spurring. Marked left greater t ramos right facet hypertrophy. No spinal canal narrowing. Moderate righ t neural foraminal narrowing. Moderate left neural foraminal narrowing . Visualized paraspinous tissues: Unremark able. Procedure Note Torres Rivas MD - 11/09/2020 CT LUMBAR SPINE WITHOUT CONTRAST 3:15 PM HISTORY: Low back pain, prior surgery, n ew symptoms. Acute bilateral low back pain with left-sided sciatica. TECHNIQUE: Axial images of the lumbar sp ine were obtained without intravenous contrast. Multiplanar reform ations were performed. Radiation dose for this scan was reduced using automated exposure control, adjustment of the mA and/or kV according to patient size, or iterative reconstruction technique. COMPARISON: Lumbar spine x-ray 10/29/2020 . Outside lumbar spine MR 06/22/2020. FINDINGS: There are five lumbar-type erick tebral bodies assumed for the purposes of this dictation. Posterior mary and screw fixation hardwar e is seen from L2 through L5 with bilateral pedicle screws at all tho se levels. Hardware appears intact. No significant lucency of the louie rgical screws to suggest loosening. The L2 pedicle screws abut th e superior endplate of L2 without obvious fracture deformity. Jose A ed convex left curvature of the lumbar spine centered at L1-L2. No o bvious loss of vertebral body height. Mild grade 1 anterolisthesis of L4 on L5. There is fusion of the posterior facets from L2 through L5. Level by level as follows: T11-T12: No significant loss of disc hei ght. No disc herniation. Mild left greater than right facet hypertroph y. No significant spinal canal or neural foraminal narrowing. T12-L1: No loss of disc height. No signi ficant disc herniation. Marked asymmetric right-sided facet hypertrophy . No spinal canal narrowing. Moderate right neural foraminal narrowin g. No left neural foraminal narrowing. L1-L2: Marked loss of disc height with s clerotic degenerative endplate changes, particularly towards the right. Circumferential disc bulge with endplate osteophytic spurring with the spurring more pronounced towards the right foraminal and far late ral region. Marked right greater than left facet hypertrophy. Pos terior decompression. No spinal canal narrowing. Severe right robert ral foraminal narrowing. Moderate left neural foraminal narrowing . L2-L3: Moderate loss of disc height with sclerotic degenerative endplate changes. Disc bulge in the left foraminal and far lateral region. Fused posterior facets with face t hypertrophy. Posterior decompression. No spinal canal narrowing . No significant right neural foraminal narrowing. No left neural fora rigo narrowing. L3-L4: Fusion across the disc space. No significant disc herniation. Fused posterior facets without facet hyp ertrophy. Posterior decompression. No spinal canal or neural foraminal narrowing. L4-L5: Mild grade 1 anterolisthesis. Mil d loss of disc height. Posterior disc bulge with left-sided unc inate spurring. Fused posterior facets with facet hypertrophy. Posterior decompression. No spinal canal narrowing. Mild right neura l foraminal narrowing. Moderate left neural foraminal narrowing . L5-S1: Mild loss of disc height. Circumf erential disc bulge with mild uncinate spurring. Marked left greater t ramos right facet hypertrophy. No spinal canal narrowing. Moderate righ t neural foraminal narrowing. Moderate left neural foraminal narrowing . Visualized paraspinous tissues: Unremark able. IMPRESSION: 1. Postoperative changes with posterior fixation from L2 through L5. Surgical hardware appears intact. No saskia dence of hardware loosening. 2. No spinal canal narrowing at the post operative levels. Moderate left and mild right neural foraminal forrest rowing at L4-L5. 3. Marked degenerative changes at the L1 -L2 level above the fusion where there is severe right and moderate left neural foraminal narrowing. 4. Additional degenerative changes throu ghout the lumbar spine as detailed above. 5. No acute fracture or subluxation in t he lumbar spine. 6. Overall, no significant change since prior MR 06/22/2020. TORRES RIVAS MD SYSTEM ID: [id number] Ana Jacobs PA-C IMG CT ORDERABLES documented in this encounter Visit Diagnoses Diagnosis Acute bilateral low back pain with left- sided sciatica documented in this encounter Care Teams Core Blower Operator Relationship Specialty Start Date End Date Idalmis Sloan PCP - General Family Practice 11/04/13 Ana Jacobs PA-C Assigned Neuroscience 11/04/20 12/01/20 [facility] Provider [id number] [id number] documented as of this encounter
--- OUTSIDE RECORDS SUMMARY | 2021-11-12 14:47 | XMS_ITS | Encounter Summary ---
:1950 Author Organization [place] Address [facility] [place] [address] Care Team Providers Name Role Phone Idalmis Sloan Primary Care Provider Encounter Details Date Type Department Care Team Description 03/16/[address] 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 [address] [place], [place] [id number] Social History Tobacco Use Types Packs/Day Years Used Date Never Smoker Smokeless Tobacco: Never Used Sex Assigned at Date Recorded Not on file documented as of this encounter Plan of Treatment Not on filedocumented as of this encounter Procedures Procedure Name Priority Date/Time Associated Diagnosis Comme nts [facility] THERAPEUTIC Routine 03/16/2019 4:32 PM GIRL FRIDAY Lumbar pain ACTIVITIES [facility] THERAPEUTIC Routine 03/16/2019 4:32 PM GIRL FRIDAY Lumbar pain EXERCISES documented in this encounter Visit Diagnoses Diagnosis Lumbar pain - Primary Lumbago documented in this encounter Care Teams Loading Supervisor Relationship Specialty Start Date End Date Idalmis Sloan PCP - General Family Practice 11/04/13 documented as of this encounter
--- OUTSIDE RECORDS SUMMARY | 2021-11-12 14:47 | XMS_ITS | Encounter Summary ---
:1950 Author Organization [facility] Address [address] [place] [address]. [place] [address] Care Team Providers Name Role Phone Idalmis Slaon Primary Care Provider Reason for Visit [facility] Physical Therapy (Routine) - Closed Specialty Diagnoses / Procedures Referred By Contact Refer red To Contact Physical Therapy Diagnoses >4, Back / Mercy Vasquez @ [facility] Pain / BCBS Mercy Vasquez, Daniel Cassidy, PT Procedures SPINE INITIAL [facility] [address] [place] [address] [place] [address] [place] [address] Referral ID Status Reason Start Date Expiration Date Visits Requ ested Visits Authorized [id number] Closed 07/22/2017 03/01/2018 20 18 Encounter Details Date Type Department Care Team Description 07/29/2017 Therapy Visit [facility] Daniel Shi Lumba go (Primary Rehabilitation Services PT Dx) [facility] [address] [address] [facility] [address] [place] [address] [phone] Social History Tobacco Use Types Packs/Day Years Used Date Never Smoker Smokeless Tobacco: Never Used Sex Assigned at Date Recorded Not on file documented as of this encounter Progress Notes Anirudh Wells - 07/29/2017 3:10 PM CDT [facility] Initial Evaluation Krys Mosher is a 67 year old female referred to physical therapy by Mercy Vasquez CNP for treatmentof Low back pain with Precautions/Restrictions/MD instructions Eval & treat for pain relief, increase function, return to ADLs, and educate. ?? Physical Therapy Initial Evaluation: Subjective History ? 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 Symptom Behavior Details Primary Pain Symptoms Location: Low back to tail bone, down lateral leg Quality: Sharp constant pain, achy down the leg Frequency: constant Worst Pain 10/10 Best Pain 5/10 Symptom Provocators Walking, standing or sitting in prolonged positions Symptom Relievers Ice, pain medication Time of day dependent? Pain in middle of night wakes up Recent symptom change? Worse over past 7 months ?? Prior Testing/Intervention for current condition: Prior Tests None Prior Treatment Corticosteroid injection ?? Lifestyle & General Medical History: General Health Reported by Patient Good Employment Retired Usual physical activities (within past year) Exercise bike, walk on the treadmill pain free, walk without cane. Orthopaedic history L RCR resulted unsuccessfully, cervical fusion, 3 back surgeries Notable medical history Osteoporosis, Thyroid problems, Asthma HPI Objective: System Ankle/Foot Evaluation ROM: Strength: Dorsiflexion: Left: 5/5 Pain: Right: 5/5 Pain: Plantarflexion: Left: 5/5 Pain: Right: 5/5 Pain: Lumbar/SI Evaluation Spinal Segmental Conclusions: Level: Hypo noted at L3, L2, L4 and L5 Hip Evaluation Hip PROM: Hip PROM: Left Hip: Normal Right Hip: Normal Hip Strength: Flexion: Left: 4+/5 Pain: Right: 4+/5 Pain: Extension: Left: 3/5 Pain:Right: 3/5 Pain: Knee Flexion: Left: 4+/5 Pain:Right: 4+/5 Pain: Knee Extension: Left: 5/5 Pain:Right: 5/5 Pain: Hip Special Testing: Left hip negative for the following special tests: SLR Right hip negative for the following special tests: SLR General ROS Assessment/Plan: Patient is a 67 year old female with lumbar complaints. Patient has the following significant findings with corresponding treatment plan. Diagnosis 1: Low back pain Pain - hot/cold therapy, electric stimulation, manual therapy, self management, education, directional preference exercise and home program Decreased ROM/flexibility - manual therapy, therapeutic exercise and home program Decreased joint mobility - manual therapy, therapeutic exercise and home program Decreased strength - therapeutic exercise, therapeutic activities and home program Decreased proprioception - neuro re-education, therapeutic activities and home program Impaired gait - gait training and home program Impaired muscle performance - neuro re-education and home program Decreased function - therapeutic activities and home program Impaired posture - neuro re-education and home program Instability - Therapeutic Activity Therapeutic Exercise Neuromuscular Re-education home program Therapy Evaluation Codes: 1) History comprised of: Personal factors that impact the plan of care: None. Comorbidity factors that impact the plan of care are: Asthma and Thyroid problems and Osteoporosis. Medications impacting care: Muscle relaxant, Pain and Sleep. 2) Examination of Body Systems comprised of: Body structures and functions that impact the plan of care: Lumbar spine. Activity limitations that impact the plan of care are: Bathing, Bending, Cooking, Dressing, Lifting, Sitting, Stairs, Standing, Walking and Sleeping. 3) Clinical presentation characteristics are: Stable/Uncomplicated. 4) Decision-Making Low complexity using standardized patient assessment instrument and/or measureable assessment of functional outcome. Cumulative Therapy Evaluation is: Low complexity. Previous and current functional limitations: (See Goal Flow Sheet for this information) Short term and prison goals: (See Goal Flow Sheet for this information) Communication ability: Patient appears to be able to clearly communicate and understand verbal and written communication and follow directions correctly. Treatment Explanation - The following has been discussed with the patient: RX ordered/plan of care Anticipated outcomes Possible risks and side effects This patient would benefit from PT intervention to resume normal activities. Rehab potential is good. Frequency: 1 X week, once daily Duration: for 8 weeks Discharge Plan: Achieve all LTG. Independent in home treatment program. Reach maximal therapeutic benefit. Please refer to the daily flowsheet for treatment today, total treatment time and time spent performing 1:1 timed codes. documented in this encounter Plan of Treatment Not on filedocumented as of this encounter Procedures Procedure Name Priority Date/Time Associated Diagnosis Comme brissa Z NEUROMUSCULAR Routine 07/29/2017 6:00 PM Lumbago RE-EDUCATION CDT documented in this encounter Visit Diagnoses Diagnosis Lumbago - Primary documented in this encounter Care Teams Compliance Tester Relationship Specialty Start Date End Date Idalmis Sloan PCP - General Family Practice 11/04/13 documented as of this encounter
--- OUTSIDE RECORDS SUMMARY | 2021-11-12 14:47 | XMS_ITS | Encounter Summary ---
:1950 Author Organization [place] Address [facility] [place] [address] Care Team Providers Name Role Phone Idalmis Sloan Primary Care Provider Encounter Details Date Type Department Care Team Description 03/30/[address] 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) [facility] [address] [facility] [address] [place], [place] [address] Social History Tobacco Use Types Packs/Day Years Used Date Never Smoker Smokeless Tobacco: Never Used Sex Assigned at Date Recorded Not on file documented as of this encounter Plan of Treatment Not on filedocumented as of this encounter Procedures Procedure Name Priority Date/Time Associated Diagnosis Comme nts [facility] THERAPEUTIC Routine 03/30/2019 3:56 PM MANAGEMENT AND BUDGET ANALYST Lumbar pain ACTIVITIES [facility] THERAPEUTIC Routine 03/30/2019 3:56 PM MANAGEMENT AND BUDGET ANALYST Lumbar pain EXERCISES documented in this encounter Visit Diagnoses Diagnosis Lumbar pain - Primary Lumbago documented in this encounter Care Teams Steel Inspector Relationship Specialty Start Date End Date Idalmis Sloan PCP - General Family Practice 11/04/13 documented as of this encounter
--- OUTSIDE RECORDS SUMMARY | 2021-11-12 14:47 | XMS_ITS | Encounter Summary ---
:1950 Author Organization [facility] Address [address] [place] [address] Care Team Providers Name Role Phone Idalmis Sloan Primary Care Provider Reason for Visit Reason Comments Wound Infection Back Pain Nausea Diarrhea Auth/Cert Specialty Diagnoses / Procedures Referred By Contact Refer red To Contact Med Surg Diagnoses Cellulitis of right foot H/O Clostridium difficile infection Diarrhea, unspecified type Cellulitis of right foot Observation Dept [address] [place], [place] [address] Phone: Referral ID Status Reason Start Date Expiration Date Visits Requ ested Visits Authorized [id number] 1 1 Encounter Details Date Type Department Care Team Description 11/04/2018 - [facility] Codie Morales MD [facility] [address] [facility] [address] [place] [address] Cellulitis of right foot; 11/06/2018 [facility] Chuck Cook MD [address] [place], [place] [id number] Diarrhea, unspecified type; Dept H/O Clostridium difficile in fection [address] [place] [address] Social History Tobacco Use Types Packs/Day Years Used Date Never Smoker Smokeless Tobacco: Never Used Sex Assigned at Date Recorded Not on file documented as of this encounter Last Filed Vital Signs Vital Sign Reading Time Taken Comments Blood Pressure 127/63 11/06/2018 7:57 AM CDT Pulse 90 11/05/2018 4:08 AM CDT Temperature 36.4 ??C (97.5 ??F) 11/06/2018 7:57 AM CDT Respiratory Rate 18 11/06/2018 7:57 AM CDT Oxygen Saturation 92% 11/06/2018 7:57 AM CDT Inhaled Oxygen Concentration - - Weight 70.3 kg (154 lb 14.4 oz) 11/04/2018 10:17 PM CDT Height 152.4 cm (5') 11/04/2018 10:17 PM CDT Body Mass Index 30.25 11/04/2018 10:17 PM CDT documented in this encounter Discharge Summaries Dayna Branch PA-C - 11/06/2018 8:24 AM CDT [facility] Hospitalist Discharge Summary Date of Admission: 11/04/2018 Date of Discharge: 11/06/2018 Discharging Provider: Dayna Branch PA-C Discharge Diagnoses Right foot cellulitis Charcot arthropathy s/p reconstruction right foot Diarrhea, resolved Hypertension Peripheral vascular disease Follow-ups Needed After Discharge Follow-up Appointments Follow-up and recommended labs and tests Follow up with primary care provider, IDALMIS SLOAN, within 7 days for hospital follow- up. No follow up labs or test are needed. Unresulted Labs Ordered in the Past 30 Days of this Admission Date and Time Order Name Status Description 11/04/2018 192 Blood culture Preliminary These results will be followed up by hospitalist Discharge Disposition Discharged to home Condition at discharge: Stable Hospital Course This is a 68 yo woman with history of right foot reconstruction and recurrent right foot cellulitis admitted for erythema of right foot consistent with cellulitis. This improved with IV cefazolin and she transitioned to cephalexin for additional 7 days. Instructed to take with probiotic given history of diarrhea and C difficile. Cephalexin felt to be lower risk for C difficile than other alternatives. Pain controlled with SKEIN BANDER medications. No signs of sepsis. Diarrhea resolved while hospitalized, if recurrent suggest further outpatient work-up. Consultations This Hospital Stay None Code Status Full Code Time Spent on this Encounter I, Dayna Branch PA-C, personally saw the patient today and spent greater than 30 minutes discharging this patient. Dayna Branch PA-C [facility] Physical Exam Vital Signs: Temp: 97.5 ??F (36.4 ??C) Temp src: Oral BP: 127/63 Heart Rate: 55 Resp: 18 SpO2: 92 % O2 Device: None (Room air) Weight: 154 lbs 14.4 oz Constitutional: chronically ill appearing woman resting in bed Eyes: no icterus HEENT: mucous membranes moist Respiratory: clear bilaterally Cardiovascular: RRR, no murmur GI: normoactive bowel sounds, soft, nontender Lymph/Hematologic: no bruising Genitourinary: no catheter Skin: healed skin graft site right foot. Moderate resolving erythema over the right forefoot, no fluctuance or drainage, no significant warmth Musculoskeletal: normal muscle bulk and tone Neurologic: nonfocal Psychiatric: alert, oriented, appropriate. Primary Care Physician IDALMIS SLOAN Discharge Orders Reason for your hospital stay You were in the hospital for infection of the right foot. Please complete your antibiotics as prescribed and take probiotic while on antibiotics. Follow-up and recommended labs and tests Follow up with primary care provider, IDALMIS SLOAN, within 7 days for hospital follow- up. No follow up labs or test are needed. Activity Your activity upon discharge: activity as tolerated When to contact your care team Call your primary doctor if you have any of the following: increased swelling or fevers. Full Code Diet Follow this diet upon discharge: Orders Placed This Encounter Regular Diet Adult Significant Results and Procedures Most Recent 3 CBC's: Recent Labs Lab Test 11/05/18 0642 11/04/18 1635 08/23/10 0730 WBC 8.8 9.9 -- HGB 12.3 14.3 10.4* MCV 101* 102* -- PLT 191 233 -- Most Recent 2 LFT's:No lab results found., Results for orders placed or performed during the hospital encounter of 11/04/13 US SARAH Doppler No Exercise Narrative ULTRASOUND SARAH DOPPLER NO EXERCISE 11/04/2013 11:00 AM HISTORY: Infected right fourth toe. FINDINGS: The pedal waveforms are triphasic bilaterally. Resting ankle-brachial indices are normal bilaterally at 1.05 on the right and 1.14 on the left. An exercise study was not performed. Impression IMPRESSION: Normal resting ankle-brachial indices and normal triphasic pedal waveforms bilaterally. FOZIA DEE MD Discharge Medications Current Discharge Medication List START taking these medications Details cephALEXin (KEFLEX) 500 MG capsule Take 1 capsule (500 mg) by mouth 2 times daily for 7 days Qty: 14 capsule, Refills: 0 Associated Diagnoses: Cellulitis of right foot saccharomyces boulardii (FLORASTOR) 250 MG capsule Take 1 capsule (250 mg) by mouth 2 times daily Qty: 14 capsule, Refills: 0 Associated Diagnoses: Cellulitis of right foot CONTINUE these medications which have NOT CHANGED Details albuterol (PROAIR HFA/PROVENTIL HFA/VENTOLIN HFA) 108 (90 Base) MCG/ACT inhaler Inhale 2 puffs into the lungs every 4 hours as needed for shortness of breath / dyspnea or wheezing Comments: Pharmacy may dispense brand covered by insurance (Proair, or proventil or ventolin or generic albuterol inhaler) Calcium Carbonate-Vitamin D (CALCIUM-CARB 600 + D PO) Take 1 tablet by mouth 2 times daily esomeprazole (NEXIUM) [address] capsule Take 20 mg by mouth daily Take 30-60 minutes before eating. furosemide (LASIX) 40 MG tablet Take 40 mg by mouth 2 times daily Morning, After dinner HYDROcodone-acetaminophen (NORCO) 5-325 MG tablet Take 1 tablet by mouth 3 times daily as needed forsevere pain methadone (DOLOPHINE) 5 MG tablet Take 5 mg by mouth 2 times daily multivitamin w/minerals (THERA-VIT-M) tablet Take 1 tablet by mouth daily potassium chloride ER (MICRO-K) 10 MEQ CR capsule Take 10 mEq by mouth 3 times daily !! simvastatin (ZOCOR) 20 MG tablet Take 20 mg by mouth every other day At PM !! simvastatin (ZOCOR) 20 MG tablet Take 10 mg by mouth every other day At PM traZODone (DESYREL) 50 MG tablet Take 50 mg by mouth nightly as needed for sleep !! - Potential duplicate medications found. Please discuss with provider. Allergies Allergies Allergen Reactions ??? Augmentin ??? Lorazepam ??? Morphine ??? Sulfa Drugs Associated attestation - Jeni Levin MD - 11/06/2018 2:16 PM CDT Physician Attestation I, Jeni Levin MD, have reviewed and discussed with the advanced practice provider their discharge plan for Krys Mosher. I did not participate in a shared visit by interviewing or examining the patient and this should be billed as an advanced practice provider only discharge. Jeni Levin Date of Service (when I saw the [...] MG tablet nightly as needed for sleep cephALEXin (KEFLEX) 500 Take 1 capsule (500 14 capsule 0 08/201812/17/2020 MG capsuleIndications: mg) by mouth 2 times Cellulitis of right foot daily furosemide (LASIX) 40 MG Take 40 mg by mouth 0 12/17/2020 tablet daily Morning, After dinner potassium chloride ER Take 40 mEq by mouth 0 12/17/2020 (MICRO-K) 10 MEQ CR daily capsule saccharomyces boulardii Take 1 capsule (250 14 capsule 0 08/201812/17/2020 (FLORASTOR) 250 MG mg) by mouth 2 times capsuleIndications: daily Cellulitis of right foot simvastatin (ZOCOR) 20 Take 20 mg by mouth 0 12/17/2020 MG tablet every other day At PM documented as of this encounter Progress Notes Heladio Bird MD - 11/05/2018 11:51 PM CDT Cross coverage: Patient's peripheral IV went bad. Currently on Ancef for right foot cellulitis. Okayto DC IV Ancef as anticipated discharge tomorrow. Transition to p.o. Keflex. Ashley Lyle RN - 11/05/2018 11:22 PM CDT Patient's PIV leaking. paged to request ABX change to PO as patient will discontinue tomorrow. Kelly Stephens PA-C - 11/05/2018 12:30 PM CDT [facility] Observation Unit Hospitalist Progress Note Name: Krys Mosher Provider: Duyen Stephens PA-C Date of Service: 11/05/2018 Assessment & Plan Summary of Stay: Krys Mosher is a 68-year-old female with history of hypertension, GERD, hypercholesterolemia, peripheral vascular disease, hepatitis C, Charcot's arthropathy with surgery on right foot in 2005, recurrent cellulitis of right foot and that has been responsive to Keflex, C. difficile a fter a course of Keflex approximately 6 months ago, cervical radiculitis, left rotator cuff injury, colon polyps, cervical spine fusion, lumbar spine fusion, total abdominal hysterectomy with bilateralsalpingo-oophorectomy, appendectomy, cholecystectomy, and Mani fundoplication who was admitted on 11/04/18 for recurrent right foot cellulitis. #Recurrent right foot cellulitis: h/o MRSA after surgery on right foot in 2005 and recently treated for cellulitis of right foot about 1 month ago that improved after course of PO Keflex. Area initially outlined on admission with mild improvement today with erythema receeding. Patient has ongoing increased pain above baseline in right foot. Patient has only received 2 doses of IV Ancef, she would likely benefit from a full day of IV antibiotics and be able to discharge in AM. Currently afebrile and no leukocytosis. - Continue IV Ancef, transition to PO Keflex on discharge - PO probiotic - Pain control with home regimen of Methadone 5 mg BID and [place] 5-325 mg PRN TID #Diarrhea: reported 12 episodes of diarrhea the day prior to admission with only 2 episodes since arriving to the hospital. C diff negative. If increased diarrhea consider checking enteric panel. #Stable medical conditions: hypertension, hypercholesterolemia, GERD, PVD, hepatitis C, necessary SKEIN BANDER medications have been resumed. DVT Prophylaxis: Ambulate every shift Code Status: Full Code Disposition: Expected discharge tomorrow Interval History Ongoing pain in right foot that is increased from baseline at 7-10/09 today with ongoing erythema with mild recession from outlined area at time of admission. She notes mild swelling. Reports improvement in diarrhea with only 2 episodes since being admitted. She is having nausea without vomiting or abdominal pain. -Data reviewed today: I reviewed all new labs and imaging reports over the last 24 hours. Physical Exam Temp: 98.6 ??F (37 ??C) Temp src: Oral BP: 121/51 Pulse: 90 Heart Rate: 67 Resp: 17 SpO2: 95 % O2 Device: None (Room air) Vitals: 11/04/18 1604 11/04/18 2217 Weight: 69.1 kg (152 lb 5.4 oz) 70.3 kg (154 lb 14.4 oz) Vital Signs with Ranges Temp: [96.4 ??F (35.8 ??C)-98.7 ??F (37.1 ??C)] 98.6 ??F (37 ??C) Pulse: [82-90] 90 Heart Rate: [64-68] 67 Resp: [16-18] 17 BP: (99-155)/(46-73) 121/51 SpO2: [95 %-97 %] 95 % No intake/output data recorded. GEN: Alert, oriented x 3, appears comfortable, NAD. HEENT: Normocephalic/atraumatic, no scleral icterus, no nasal discharge, mouth moist. CV: Regular rate and rhythm, no murmur or JVD. S1 + S2 noted, no S3 or S4. LUNGS: Clear to auscultation bilaterally without rales/rhonchi/wheezing/retractions. Symmetric chestrise on inhalation noted. ABD: Active bowel sounds, soft, non-tender/non-distended. No rebound/guarding/rigidity. EXT: No edema. No cyanosis. No acute joint synovitis noted. SKIN: Dry to touch, dorsum of right foot as well lateral 4 toes are erythematous, mild to moderate swelling, warm, and tender to touch with mild receeding from outlined area. Medications ??? ceFAZolin 1 g Intravenous Q8H ??? methadone 5 mg Oral BID ??? pantoprazole 20 mg Oral Daily ??? saccharomyces boulardii 250 mg Oral BID ??? traZODone 50 mg Oral At Bedtime Data Results for orders placed or performed during the hospital encounter of 11/04/18 CBC with platelets differential Result Value Ref Range WBC 9.9 4.0 - 11.0 10e9/L RBC Count 4.22 3.8 - 5.2 10e12/L Hemoglobin 14.3 11.7 - 15.7 g/dL Hematocrit 42.9 35.0 - 47.0 % MCV 102 (H) 78 - 100 fl MCH 33.9 (H) 26.5 - 33.0 pg MCHC 33.3 31.5 - 36.5 g/dL RDW 13.3 10.0 - 15.0 % Platelet Count 233 150 - 450 10e9/L Diff Method Automated Method % Neutrophils 69.4 % % Lymphocytes 23.2 % % Monocytes 5.9 % % Eosinophils 0.8 % % Basophils 0.4 % % Immature Granulocytes 0.3 % Nucleated RBCs 0 0 /100 Absolute Neutrophil 6.8 1.6 - 8.3 10e9/L Absolute Lymphocytes 2.3 0.8 - 5.3 10e9/L Absolute Monocytes 0.6 0.0 - 1.3 10e9/L Absolute Eosinophils 0.1 0.0 - 0.7 10e9/L Absolute Basophils 0.0 0.0 - 0.2 10e9/L Abs Immature Granulocytes 0.0 0 - 0.4 10e9/L Absolute Nucleated RBC 0.0 Basic metabolic panel Result Value Ref Range Sodium 136 133 - 144 mmol/L Potassium 3.0 (L) 3.4 - 5.3 mmol/L Chloride 97 94 - 109 mmol/L Carbon Dioxide 31 20 - 32 mmol/L Anion Gap 8 3 - 14 mmol/L Glucose 74 70 - 99 mg/dL Urea Nitrogen 8 7 - 30 mg/dL Creatinine 0.81 0.52 - 1.04 mg/dL GFR Estimate 75 >60 mL/min/[1.73_m2] GFR Estimate If Black 87 >60 mL/min/[1.73_m2] Calcium 9.0 8.5 - 10.1 mg/dL Basic metabolic panel Result Value Ref Range Sodium 137 133 - 144 mmol/L Potassium 3.3 (L) 3.4 - 5.3 mmol/L Chloride 101 94 - 109 mmol/L Carbon Dioxide 30 20 - 32 mmol/L Anion Gap 6 3 - 14 mmol/L Glucose 84 70 - 99 mg/dL Urea Nitrogen 7 7 - 30 mg/dL Creatinine 0.79 0.52 - 1.04 mg/dL GFR Estimate 77 >60 mL/min/[1.73_m2] GFR Estimate If Black 89 >60 mL/min/[1.73_m2] Calcium 8.2 (L) 8.5 - 10.1 mg/dL CBC with platelets Result Value Ref Range WBC 8.8 4.0 - 11.0 10e9/L RBC Count 3.60 (L) 3.8 - 5.2 10e12/L Hemoglobin 12.3 11.7 - 15.7 g/dL Hematocrit 36.4 35.0 - 47.0 % MCV 101 (H) 78 - 100 fl MCH 34.2 (H) 26.5 - 33.0 pg MCHC 33.8 31.5 - 36.5 g/dL RDW 12.9 10.0 - 15.0 % Platelet Count 191 150 - 450 10e9/L Blood culture Result Value Ref Range Specimen Description Blood Right Hand Special Requests Aerobic and anaerobic bottles received Culture Micro No growth after 15 hours Clostridium difficile toxin B PCR Result Value Ref Range Specimen Description Feces C Diff Toxin B PCR Negative NEG^Negative Duyen Stephens PA-C Erica Jolly RN - 11/05/2018 9:59 AM CDT Infection Prevention: Enteric precautions discontinued, standard precautions sufficient. Cdiff negative. Please contact Infection Prevention with any questions/concerns at *[phone]. 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 Patient has been oriented to the observation room, bathroom and call light is in place. Discussed discharge goals and expectations with patient/family. documented in this encounter H&P Notes Chuck Cook MD - 11/04/2018 9:58 PM CDT [facility] History and Physical Hospitalist Service Chuck Cook MD Krys Mosher Date of : 1950 Age: [age] year old Date of Admission: 11/04/2018 Assessment and Plan: Krys Mosher is a 68-year-old female with history of hypertension, GERD, hypercholesterolemia, peripheral vascular disease, hepatitis C, Charcot's arthropathy with surgery on right foot in 2005, recurrent cellulitis of right foot and that is been responsive to Keflex, C. difficile after a course of K eflex approximately 6 months ago, cervical radiculitis, left rotator cuff injury, colon polyps, cervical spine fusion, lumbar spine fusion, total abdominal hysterectomy with bilateral salpingo-oophorectomy, appendectomy, cholecystectomy, and Mani fundoplication. She presented to the emergency department today for evaluation of swollen and red right foot as well as diarrhea. She had cellulitis of her right foot (for which she had reconstructive surgery for Charcot's arthropathy in 2005) approximately 6 months ago. This was treated with Keflex and improved. She did develop C. difficile after this co urse of antibiotics, however. She had another episode of cellulitis 1 month ago that was also treated with Keflex with resolution. Over the last few days she developed diarrhea. She had approximately 12 episodes yesterday. She also noticed that her right foot became red and swollen again yesterday. She came to the emergency department for evaluation today. Emergency department evaluation showed stable vital signs. Labs showed unremarkable CBC. Potassium was 3 but basic metabolic panel was otherwise unremarkable. Stool was sent for C. difficile testing. Blood culture was sent. Krys was given Anceffor right foot cellulitis. I was asked to admit her to observation with right foot cellulitis and diarrhea to rule out C. difficile colitis. Problem list: 1. Recurrent right foot cellulitis. She states that after her surgery she had MRSA. That was over 13years ago, however. She has had recent episodes of cellulitis in the responded to Keflex. Continue Ancef. Monitor closely. If improving she could possibly discharge home with Keflex again. 2. Diarrhea. With her recent course of Keflex she should be ruled out for C. difficile. C. difficiletesting of stool was pending. 3. Stable medical conditions include hypertension, hypercholesterolemia, GERD, peripheral vascular disease, and hepatitis C. Resume prior to admission medications once reconciled. Full code Ambulate for DVT prophylaxis Disposition: Admit to observation status. Code Status: Full Code Primary Care Physician: Idalmis Sloan [phone] Chief Complaint: Swelling and redness of right foot History is obtained from Dr. Carmen Marcano, and the medical record History of Present Illness: Krys Mosher is a 68-year-old female with history of hypertension, GERD, hypercholesterolemia, peripheral vascular disease, hepatitis C, Charcot's arthropathy with surgery on right foot in 2005, recurrent cellulitis of right foot and that is been responsive to Keflex, C. difficile after a course of K eflex approximately 6 months ago, cervical radiculitis, left rotator cuff injury, colon polyps, cervical spine fusion, lumbar spine fusion, total abdominal hysterectomy with bilateral salpingo-oophorectomy, appendectomy, cholecystectomy, and Mani fundoplication. She presented to the emergency department today for evaluation of swollen and red right foot as well as diarrhea. She had cellulitis of her right foot (for which she had reconstructive surgery for Charcot's arthropathy in 2005) approximately 6 months ago. This was treated with Keflex and improved. She did develop C. difficile after this co urse of antibiotics, however. She had another episode of cellulitis 1 month ago that was also treated with Keflex with resolution. Over the last few days she developed diarrhea. She had approximately 12 episodes yesterday. She also noticed that her right foot became red and swollen again yesterday. She came to the emergency department for evaluation today. Emergency department evaluation showed stable vital signs. Labs showed unremarkable CBC. Potassium was 3 but basic metabolic panel was otherwise unremarkable. Stool was sent for C. difficile testing. Blood culture was sent. Krys was given Anceffor right foot cellulitis. I was asked to admit her to observation with right foot cellulitis and diarrhea to rule out C. difficile colitis. Past Medical History: Patient Active Problem List Diagnosis ??? Sprain of left rotator cuff capsule ??? Other postprocedural status(V45.89) ??? Cervical radiculitis ??? Cellulitis of right foot ??? Diarrhea, unspecified type Cervical radiculitis Sprain of left rotator cuff capsule Clostridium difficile Hypertension GERD Hyperlipidemia PVD Hydradenitis Tenosynovitis Hepatitis C Anemia Charcot's arthropathy Lumbosacral pain Adenomatous colon polyp Past Surgical History: Reconstructive foot surgery, right, 2005 Breast biopsy Cervical fusion Subtalar arthroereisis Lumbar fusion Tonsillectomy Total abdominal hysterectomy with bilateral salpingo-oophorectomy Appendectomy Cholecystectomy Mani fundoplication Home Medications: Prior to Admission medications Medication Sig Last Dose Taking? Auth Provider cefuroxime (CEFTIN) 500 MG tablet Take 1 tablet (500 mg) by mouth 2 times daily Laith Oliver MD predniSONE (DELTASONE) 20 MG tablet Take 3 tabs (60 mg) by mouth daily x 3 days, 2 tabs (40 mg) daily x 3 days, 1 tab (20 mg) daily x 3 days, then 1/2 tab (10 mg) x 3 days. Laith Oliver MD Allergies: Allergies Allergen Reactions ??? Augmentin ??? Lorazepam ??? Morphine ??? Sulfa Drugs Social History: Non-smoker Does not drink alcohol Family History: No history of frequent skin infections Review of Systems: The 10 point Review of Systems is negative other than as noted in the HPI. Physical Exam: Blood pressure (!) 155/62, pulse 82, temperature 96.5 ??F (35.8 ??C), temperature source Oral, resp.rate 18, height 1.524 m (5'), weight 69.1 kg (152 lb 5.4 oz), SpO2 96 %. 152 lbs 5.41 oz GENERAL: Pleasant and cooperative. No acute distress. EYES: Pupils equal and round. No scleral erythema or icterus. ENT: External ears are normal without deformity. Posterior oropharynx is without erythem, swelling, or exudate. NECK: Supple. No masses or swelling. No tenderness. Thyroid is normal without mass or tenderness. CHEST: Clear to auscultation. Normal breath sounds. No retractions. CV: Regular rate and rhythm. No JVD. Pulses normal. ABDOMEN: Bowel sounds present. No tenderness. No masses or hernia. EXTREMETIES: No clubbing, cyanosis, or ischemia. SKIN: Warm and dry to touch. No wounds or rashes. Dorsum of the right foot as well as the lateral 4 toes are erythematous and somewhat swollen, warm, and tender. NEUROLOGIC: Strength and sensation are normal. Deep tendon reflexes are normal. Cranial nerves are normal. Data: All new lab and imaging data was reviewed. Results for orders placed or performed during the hospital encounter of 11/04/18 (from the past 24 hour(s)) CBC with platelets differential Result Value Ref Range WBC 9.9 4.0 - 11.0 10e9/L RBC Count 4.22 3.8 - 5.2 10e12/L Hemoglobin 14.3 11.7 - 15.7 g/dL Hematocrit 42.9 35.0 - 47.0 % MCV 102 (H) 78 - 100 fl MCH 33.9 (H) 26.5 - 33.0 pg MCHC 33.3 31.5 - 36.5 g/dL RDW 13.3 10.0 - 15.0 % Platelet Count 233 150 - 450 10e9/L Diff Method Automated Method % Neutrophils 69.4 % % Lymphocytes 23.2 % % Monocytes 5.9 % % Eosinophils 0.8 % % Basophils 0.4 % % Immature Granulocytes 0.3 % Nucleated RBCs 0 0 /100 Absolute Neutrophil 6.8 1.6 - 8.3 10e9/L Absolute Lymphocytes 2.3 0.8 - 5.3 10e9/L Absolute Monocytes 0.6 0.0 - 1.3 10e9/L Absolute Eosinophils 0.1 0.0 - 0.7 10e9/L Absolute Basophils 0.0 0.0 - 0.2 10e9/L Abs Immature Granulocytes 0.0 0 - 0.4 10e9/L Absolute Nucleated RBC 0.0 Basic metabolic panel Result Value Ref Range Sodium 136 133 - 144 mmol/L Potassium 3.0 (L) 3.4 - 5.3 mmol/L Chloride 97 94 - 109 mmol/L Carbon Dioxide 31 20 - 32 mmol/L Anion Gap 8 3 - 14 mmol/L Glucose 74 70 - 99 mg/dL Urea Nitrogen 8 7 - 30 mg/dL Creatinine 0.81 0.52 - 1.04 mg/dL GFR Estimate 75 >60 mL/min/[1.73_m2] GFR Estimate If Black 87 >60 mL/min/[1.73_m2] Calcium 9.0 8.5 - 10.1 mg/dL documented in this encounter ED Notes Grisel Samson RN - 11/04/2018 8:36 PM CDT [facility] ED Nurse Handoff Report Krys Mosher is a 68 year old female ED Chief complaint: Wound Infection; Back Pain; Nausea; and Diarrhea . ED Diagnosis: Final diagnoses: Cellulitis of right foot Diarrhea, unspecified type H/O Clostridium difficile infection Allergies: Allergies Allergen Reactions ??? Augmentin ??? Lorazepam ??? Morphine ??? Sulfa Drugs Code Status: Full Code Activity level - Baseline/Home: Assist X 1. Activity Level - Current: Assist X 1. Lift room needed: No. Bariatric: No Developer Programmer Analyst Needed: No Isolation: yes. Infection: C-Diff Pending. Vital Signs: Vitals: 11/04/18 1604 BP: (!) 158/89 Resp: 20 Temp: 98.6 ??F (37 ??C) TempSrc: Oral SpO2: 97% Weight: 69.1 kg (152 lb 5.4 oz) Height: 1.524 m (5') Cardiac Rhythm: , Pain level: 0-10 Pain Scale: 9 Patient confused: No. Patient Falls Risk: Yes. Elimination Status: Has voided Patient Report - Initial Complaint: Foot pain, n/v/d. Focused Assessment: Right foot cellulitis, N/V/D, generalized weakness Tests Performed: Labs Ordered and Resulted from Time of ED Arrival Up to the Time of Departure from the ED CBC WITH PLATELETS DIFFERENTIAL - Abnormal; Notable for the following components: Result Value MCV 102 (*) MCH 33.9 (*) All other components within normal limits BASIC METABOLIC PANEL - Abnormal; Notable for the following components: Potassium 3.0 (*) All other components within normal limits PERIPHERAL IV CATHETER BLOOD CULTURE CLOSTRIDIUM DIFFICILE TOXIN B BLOOD CULTURE No orders to display . Abnormal Results: See above. Treatments provided: IV ABX, zofran, dilaudid Family Comments: N/A OBS brochure/video discussed/provided to patient: Yes ED Medications: Medications HYDROmorphone (PF) (DILAUDID) injection 0.5 mg (0.5 mg Intravenous Given 11/04/182000) ceFAZolin (ANCEF) intermittent infusion 1 g (1 g Intravenous New Bag 11/04/181950) ondansetron (ZOFRAN) injection 4 mg (4 mg Intravenous Given 11/04/182001) Drips infusing: No For the majority of the shift, the patient's behavior Green. Interventions performed were N/A. Severe Sepsis OR Septic Shock Diagnosis Present: No ED Nurse Name/Phone Number: Dino Meraz RN, 8:36 PM RECEIVING UNIT ED HANDOFF REVIEW Above ED Nurse Handoff Report was reviewed: Yes Reviewed by: Grisel Samson RN on November 04, 2018 at 8:59 PM Idalmis Santos RN - 11/04/2018 4:03 PM CDT Pt reports concern for infection of right foot which has been present for past 2 days. She has nausea and diarrhea for past 2.,5 days. She also complains of back pain. Mervin Morales MD - 11/04/2018 3:52 PM CDT History Chief Complaint: Wound Infection HPI Krys Mosher is a 68 year old female who presents to the ED for evaluation of a wound infection. The patient states that she started noticing swelling and redness of a wound on her right foot yesterday that became worse today, prompting her presentation to the ED. The patient states that her originalwound on that foot was treated 3-4 weeks ago with a course of Keflex. She also notes a low grade fever, nausea, and dry heaving. The patient reports having diarrhea and mid, right-sided back pain for the past week. The patient denies any bloody stool or vomiting. Allergies: Augmentin Lorazepam Morphine Sulfa drugs Medications: Ceftin Prednisone Past Medical History: Cervical radiculitis Sprain of left rotator cuff capsule Clostridium difficile Hypertension GERD Hyperlipidemia PVD Hydradenitis Tenosynovitis Hepatitis C Anemia Charcot's arthropathy Lumbosacral pain Adenomatous colon polyp Past Surgical History: Reconstructive foot surgery, right, 2006 Breast biopsy Cervical fusion Subtalar arthroereisis Lumbar fusion Tonsillectomy Total abdominal hysterectomy with bilateral salpingo-oophorectomy Appendectomy Cholecystectomy Mani fundoplication Family History: No past pertinent family history. Social History: Negative for tobacco use. Negative for alcohol use. Negative for drug use. Marital Status: [2] Review of Systems Constitutional: Positive for fever. Gastrointestinal: Positive for diarrhea and nausea. Negative for blood in stool and vomiting. Skin: Positive for color change and wound. All other systems reviewed and are negative. Physical Exam Patient Vitals for the past 24 hrs: BP Temp Temp src Heart Rate Resp SpO2 Height Weight 11/04/18 1604 (!) 158/89 98.6 ??F (37 ??C) Oral 79 20 97 % 1.524 m (5') 69.1 kg (152 lb 5.4 oz) Physical Exam General: Patient is alert and cooperative. HENT: Normal nose, oropharynx. Moist oral mucosa. Eyes: EOMI. Normal conjunctiva. Neck: Normal range of motion and appearance. Cardiovascular: Normal rate, regular rhythm; normal RLE distal perfusion. Pulmonary/Chest: Effort normal. Abdominal: Soft. No distension or tenderness. Musculoskeletal: old surgical changes right foot, limited mobility. Neurological: oriented, normal strength, sensation, and coordination. Skin: Warm and dry. No rash or bruising. Psychiatric: Normal mood and affect. Normal behavior and judgement. Emergency Department Course Laboratory: CBC: WBC: 9.9, HGB: 14.3, PLT: 233 BMP: Potassium: 3.0 (L), o/w WNL (Creatinine: 0.81) Blood culture: pending Clostridium difficile toxin B PCR: pending Interventions: 1950 Ancef intermittent infusion 1 g IV 2000 Dilaudid injection 0.5 mg IV 2001 Zofran injection 4 mg IV Emergency Department Course: Nursing notes and vitals reviewed. (1912) I performed an exam of the patient as documented above. IV inserted. Medicine administered as documented above. Blood drawn. This was sent to the lab for further testing, results above. Findings and plan explained to the Patient who consents to admission. 2042: Discussed the patient with Dr. Cook, who will admit the patient to an observation bed for further monitoring, evaluation, and treatment. Impression & Plan Medical Decision Making: Afebrile and hemodynamically stable 68-year-old female has presented with an acute right foot cellulitis. Is markedly worsened from yesterday. She is additionally complaining of acute nonbloody watery loose stools and has a history of C. difficile colitis. Screening laboratory tests are unremarkable. B lood cultures are pending. An IV was established and she was medicated with Ancef, Dilaudid, and Zofran. I believe admission for continued IV antibiotics and further management is warranted. Diagnosis: ICD-10-CM 1. Cellulitis of right foot L03.115 CBC with platelets differential Basic metabolic panel Blood culture 2. Diarrhea, unspecified type R19.7 3. H/O Clostridium difficile infection Z86.19 Disposition: The patient was admitted. Scribe Disclosure: I, Diana López, am serving as a scribe on 11/04/2018 at 7:13 PM to personally document services performed by Mervin Morales MD based on my observations and the provider's statements to me. Diana López 11/04/2018 [facility] EMERGENCY DEPARTMENT Mervin Morales MD 11/04/18 [id number] documented in this encounter Miscellaneous Notes Plan of Care - Jesi Callahan RN - 11/06/2018 10:39 AM CDT Patient's After Visit Summary was reviewed with patient. Patient verbalized understanding of After Visit Summary, recommended follow up and was given an opportunity to ask questions. Discharge medications sent home with patient/family: Yes, Keflex and Florastor Discharged with . OBSERVATION patient END time: 1207 Plan of Care - Jesi Callahan RN - 11/06/2018 8:34 AM CDT PRIMARY DIAGNOSIS: R foot cellulitis OUTPATIENT/OBSERVATION GOALS TO BE MET BEFORE DISCHARGE: Vitals sign stable or return to baseline: Yes Tolerating oral antibiotics or has home infusion set up if applicable: Yes Pain status: Improved-controlled with oral pain medications. PRN norco given in addition to her scheduled methadone. Return to near baseline physical activity: Yes, SBA via gait belt and walker. Senior Packaging Engineer Nurse Safe discharge environment identified: Yes Barriers to discharge: Yes Entered by: Jesi Callahan 11/06/2018 8:35 AM Please review provider order for any additional goals. Nurse to notify provider when observation goals have been met and patient is ready for discharge. BP 127/63 (BP Location: Left arm) Pulse 90 Temp 97.5 ??F (36.4 ??C) (Oral) Resp 18 Ht 1.524 m (5') Wt 70.3 kg (154 lb 14.4 oz) SpO2 92% BMI 30.25 kg/m?? A&Ox4, agitated in room. PO keflex given. Redness with boarders marked on R foot, no edema present. Plan to discharge home later today, to transport. Plan of Care - Jermain Teague RN - 11/06/2018 4:00 AM CDT PRIMARY DIAGNOSIS: RIGHT FOOT CELLULITIS OUTPATIENT/OBSERVATION GOALS TO BE MET BEFORE DISCHARGE: 1. Vitals sign stable or return to baseline: Yes 2. Tolerating oral antibiotics or has home infusion set up if applicable: Yes 3. Pain status: Improved-controlled with oral pain medications. 4. Return to near baseline physical activity: Yes Senior Packaging Engineer Nurse Safe discharge environment identified: Yes Barriers to discharge: No Entered by: Jermain Teague 11/06/2018 6:46 AM Afebrile. Denied pain in right foot. Edema and bright redness in right foot. Antibiotics switched Wayne in morning. Continue to monitor foot this morning and manage any pain as necessary. Plan of Jermain Torres RN - 11/06/2018 12:00 AM CDT PRIMARY DIAGNOSIS: RIGHT FOOT CELLULITIS OUTPATIENT/OBSERVATION GOALS TO BE MET BEFORE DISCHARGE: 1. Vitals sign stable or return to baseline: Yes 2. Tolerating oral antibiotics or has home infusion set up if applicable: Yes 3. Pain status: Improved-controlled with oral pain medications. 4. Return to near baseline physical activity: Yes Senior Packaging Engineer Nurse Safe discharge environment identified: Yes Barriers to discharge: No Entered by: Jermain Teague 11/06/2018 3:54 AM Afebrile. Denied pain in right foot. Edema and bright redness in right foot. Antibiotics switched Wayne in morning. Continue to monitor foot overnight and manage any pain as necessary. Plan of Ashley Gracia RN - 11/05/2018 8:00 PM CDT PRIMARY DIAGNOSIS: SOFT TISSUE INFECTIONS OUTPATIENT/OBSERVATION GOALS TO BE MET BEFORE DISCHARGE: 1. Vitals sign stable or return to baseline: Yes 2. Tolerating oral antibiotics or has home infusion set up if applicable: Yes on IV ABX Ancef 3. Pain status: Improved-controlled with oral pain medications. [place] dose ordered 1x 4. Return to near baseline physical activity: Yes Up with SBA 1 walker Senior Packaging Engineer Nurse Safe discharge environment identified: Yes Barriers to discharge: No Entered by: Ashley Lyle 11/05/2018 9:09 PM Please review provider order for any additional goals. Nurse to notify provider when observation goals have been met and patient is ready for discharge. Provider Notification - Elizabeth Chong RN - 11/05/2018 6:53 PM CDT Can we have something more for pain? Admitted for cellulist of L foot,pain at 8 sharp and shooting. [place] last at 1645, hx of chronic pain. thanks Plan of Care - Elizabeth Chong RN - 11/05/2018 3:31 PM CDT PRIMARY DIAGNOSIS: GENERIC NURSING OUTPATIENT/OBSERVATION GOALS TO BE MET BEFORE DISCHARGE: ADLs back to baseline: Yes Activity and level of assistance: Up with standby assistance. Pain status: Improved-controlled with oral pain medications. Return to near baseline physical activity: No Senior Packaging Engineer Nurse Safe discharge environment identified: Yes Barriers to discharge: Yes Entered by: Elizabeth Chong 11/05/2018 3:31 PM Please review provider order for any additional goals. Nurse to notify provider when observation goals have been met and patient is ready for discharge. Plan of Care - Elizabeth Chong RN - 11/05/2018 11:40 AM CDT PRIMARY DIAGNOSIS: GENERIC NURSING OUTPATIENT/OBSERVATION GOALS TO BE MET BEFORE DISCHARGE: ADLs back to baseline: Yes Activity and level of assistance: Up with standby assistance. Pain status: Improved-controlled with oral pain medications. Return to near baseline physical activity: Yes Senior Packaging Engineer Nurse Safe discharge environment identified: Yes Barriers to discharge: Yes Entered by: Elizabeth Chong 11/05/2018 11:40 AM Please review provider order for any additional goals. Nurse to notify provider when observation goals have been met and patient is ready for discharge. Plan of Care - Elizabeth Chong RN - 11/05/2018 9:32 AM CDT PRIMARY DIAGNOSIS: GENERIC NURSING Cellulitis of Right foot OUTPATIENT/OBSERVATION GOALS TO BE MET BEFORE DISCHARGE: ADLs back to baseline: No Activity and level of assistance: Up with standby assistance. Pain status: Improved but still requiring IV narcotics. Return to near baseline physical activity: No Senior Packaging Engineer Nurse Safe discharge environment identified: Yes Barriers to discharge: Yes Entered by: Elizabeth Chong 11/05/2018 9:32 AM Please review provider order for any additional goals. Nurse to notify provider when observation goals have been met and patient is ready for discharge. Plan of Nick - Grisel Samson RN - 11/05/2018 4:00 AM CDT PRIMARY DIAGNOSIS: R FOOT CELLULITIS OUTPATIENT/OBSERVATION GOALS TO BE MET BEFORE DISCHARGE: 1. Vitals sign stable or return to baseline: Yes 2. Tolerating oral antibiotics or has home infusion set up if applicable: No 3. Pain status: Improved-controlled with oral pain medications. 4. Return to near baseline physical activity: Yes Patient alert and oriented x4. Vitals are Temp: 97.6 ??F (36.4 ??C) Temp src: Axillary BP: 99/46 Pulse: 90 Heart Rate: 79 Resp: 18 SpO2: 97 % RA. Reports 7/10 pain in right foot, PRN Oxycodone given. Continuing with IV Ancef. C diff negative. Patient reports that she continues to have frequent loose bowel movements. Reported nausea, Zofran given. IV infusing. Up with standby assistance. Tolerating regular diet. Plan to continue with antibiotics and manage symptoms. Senior Packaging Engineer Nurse Safe discharge environment identified: Yes Barriers to discharge: No Entered by: Grisel Samson 11/05/2018 Please review provider order for any additional goals. Nurse to notify provider when observation goals have been met and patient is ready for discharge. Plan of Grisel Mina RN - 11/05/2018 12:00 AM CDT PRIMARY DIAGNOSIS: R FOOT CELLULITIS OUTPATIENT/OBSERVATION GOALS TO BE MET BEFORE DISCHARGE: Vitals sign stable or return to baseline: Yes Tolerating oral antibiotics or has home infusion set up if applicable: No Pain status: Improved-controlled with oral pain medications. Return to near baseline physical activity: Yes Patient alert and oriented x4. Vitals are Temp: 98.4 ??F (36.9 ??C) Temp src: Oral BP: 136/67 Pulse:88 Heart Rate: 79 Resp: 18 SpO2: 95 % RA. Reports 8/10 pain in right foot, PRN Oxycodone given. Continuing with IV Ancef. C diff negative. Patient reports that she continues to have frequent loose bowel movements. Reported nausea, Zofran given. IV infusing. Up with standby assistance. Tolerating regular diet. Plan to continue with antibiotics and manage symptoms. Senior Packaging Engineer Nurse Safe discharge environment identified: Yes Barriers to discharge: No Entered by: Grisel Samson 11/05/2018 Please review provider order for any additional goals. Nurse to notify provider when observation goals have been met and patient is ready for discharge. Pharmacy-Admission Medication History - Lazara Fontenot RPH - 11/04/2018 11:35 PM CDT 11/05 Addendum: per clarification with patient, added [place] 5-325 mg (1 tab TID prn) to Epic [facility] med list. Left sticky note to provider to review additional med. Lazara Fontenot, Pharm.D. Admission medication history interview status for this patient is complete. See [facility] admission navigator for allergy information, prior to admission medications and immunization status. Medication history interview source(s):Patient Medication history resources (including written lists, pill bottles, clinic record):[facility] records from [facility] Changes made to [facility] medication list: Added: all Medication reconciliation/reorder completed by provider prior to medication history? No For patients on insulin therapy: N Prior to Admission medications Medication Sig Last Dose Taking? Auth Provider albuterol (PROAIR HFA/PROVENTIL HFA/VENTOLIN HFA) 108 (90 Base) MCG/ACT inhaler Inhale 2 puffs into the lungs every 4 hours as needed for shortness of breath / dyspnea or wheezing Yes Unknown, Entered By History Calcium Carbonate-Vitamin D (CALCIUM-CARB 600 + D PO) Take 1 tablet by mouth 2 times daily 11/04/2018 at am Yes Unknown, Entered By History esomeprazole (NEXIUM) [address] capsule Take 20 mg by mouth daily Take 30-60 minutes before eating. 11/04/2018 at Unknown time Yes Unknown, Entered By History furosemide (LASIX) 40 MG tablet Take 40 mg by mouth 2 times daily Yes Unknown, Entered By History methadone (DOLOPHINE) 5 MG tablet Take 5 mg by mouth 2 times daily 11/04/2018 at am Yes Unknown, Entered By History multivitamin w/minerals (THERA-VIT-M) tablet Take 1 tablet by mouth daily 11/03/2018 at Unknown time Yes Unknown, Entered By History potassium chloride ER (MICRO-K) 10 MEQ CR capsule Take 10 mEq by mouth 3 times daily 11/04/2018 at am Yes Unknown, Entered By History simvastatin (ZOCOR) 20 MG tablet Take 20 mg by mouth every other day At PM Yes Unknown, Entered By History simvastatin (ZOCOR) 20 MG tablet Take 10 mg by mouth every other day At PM 11/02/2018 at Unknown time Yes Unknown, Entered By History traZODone (DESYREL) 50 MG tablet Take 50 mg by mouth nightly as needed for sleep 11/03/2018 at Unknowntime Yes Unknown, Entered By History documented in this encounter Plan of Treatment Not on filedocumented as of this encounter Procedures Procedure Name Priority Date/Time Associated Comments Diagnosis POTASSIUM Timed 11/05/2018 5:27 PM Cellulitis of right Re sults for this CDT foot procedure are i n the results section. BASIC METABOLIC PANEL Routine 11/05/2018 6:42 AM Cellulitis of right Results for this CDT foot procedure are i n the results section. CBC WITH PLATELETS Routine 11/05/2018 6:42 AM Cellulitis of ri ght Results for this CDT foot procedure are i n the results section. CLOSTRIDIUM DIFFICILE Routine 11/04/2018 7:49 PM Cellulitis of right Results for this TOXIN B CDT foot procedure are i n the results section. CBC WITH PLATELETS & STAT 11/04/2018 4:35 PM Cellulitis of right Results for this DIFFERENTIAL CDT foot procedure are i n the results section. BLOOD CULTURE STAT 11/04/2018 4:35 PM Cellulitis of right R esults for this CDT foot procedure are i n the results section. BASIC METABOLIC PANEL STAT 11/04/2018 4:35 PM Cellulitis of right Results for this CDT foot procedure are i n the results section. documented in this encounter Results Potassium (11/05/2018 5:27 PM CDT) P athologist Signature Potassium 3.8 3.4 - 5.3 11/05/2018 [facility] mmol/L 5:50 PM CDT HOSPITAL Specimen Anatomical Collection Method Collection Time Receive d Time (Source) Location / / Volume Laterality Blood specimen 11/05/2018 5:27 PM 019 5:28 (specimen) CDT PM CDT Kelly Stephens PA-C LAB - BLOOD ORDERABLES Performing Organization Address City/State/ZIP Code Phon e Number [facility] [address], [place] [address] [facility] [address] [phone] (ABNORMAL) CBC with platelets (11/05/2018 6:42 AM CDT) Analysis Performed At Patho logist Time Signature WBC 8.8 4.0 - 11.0 11/05/2018 [facility] 10e9/L 7:04 AM [facility] RBC Count 3.60 (L) 3.8 - 5.2 11/05/2018 [facility] 10e12/L 7:04 AM [facility] Hemoglobin 12.3 11.7 - 11/05/2018 [facility] 15.7 g/dL 7:04 AM [facility] Hematocrit 36.4 35.0 - 11/05/2018 [facility] 47.0 % 7:04 AM [facility] MCV 101 (H) 78 - 100 11/05/2018 [facility] fl 7:04 AM [facility] MCH 34.2 (H) 26.5 - 11/05/2018 [facility] 33.0 pg 7:04 AM [facility] MCHC 33.8 31.5 - 11/05/2018 [facility] 36.5 g/dL 7:04 AM [facility] RDW 12.9 10.0 - 11/05/2018 [facility] 15.0 % 7:04 AM [facility] Platelet Count 191 150 - 450 11/05/2018 [facility] 10e9/L 7:04 AM [facility] Specimen Anatomical Collection Method Collection Time Receive d Time (Source) Location / / Volume Laterality Blood specimen 11/05/2018 6:42 AM 019 6:43 (specimen) CDT AM CDT Chuck Cook MD LAB - BLOOD ORDERABLES Performing Organization Address City/State/ZIP Code Phon e Number [facility] [address] [place] [address] [facility] [address] [phone] (ABNORMAL) Basic metabolic panel (11/05/2018 6:42 AM CDT) P athologist Signature Sodium 137 133 - 144 11/05/2018 [facility] mmol/L 7:16 AM [facility] Potassium 3.3 (L) 3.4 - 5.3 11/05/2018 [facility] mmol/L 7:16 AM [facility] Chloride 101 94 - 109 11/05/2018 [facility] mmol/L 7:16 AM [facility] Carbon Dioxide 30 20 - 32 11/05/2018 [facility] mmol/L 7:22 AM [facility] Anion Gap 6 3 - 14 11/05/2018 [facility] mmol/L 7:22 AM [facility] Glucose 84 70 - 99 11/05/2018 [facility] mg/dL 7:22 AM [facility] Urea Nitrogen 7 7 - 30 11/05/2018 [facility] mg/dL 7:22 AM [facility] Creatinine 0.79 0.52 - 11/05/2018 [facility] 1.04 mg/dL 7:22 AM [facility] GFR Estimate 77 >60 11/05/2018 [facility] mL/min/{1. 7:22 AM [facility] 73_m2} HOSPITAL Comment: Non GFR Calc Starting 02/16/2018, serum creatinine ba sed estimated GFR (eGFR) will be calculated using the Chronic Kidney Dise [employer] [facility] Epidemiology Collaboration (CKD-EPI) equation. GFR Estimate If 89 >60 mL/min/{1.73_m2} 11/05/2018 7: [address] [facility] Comment: GFR Calc Starting 02/16/2018, serum creatinine ba sed estimated GFR (eGFR) will be calculated using the Chronic Kidney Dise [employer] [facility] Epidemiology Collaboration (CKD-EPI) equation. Calcium 8.2 (L) 8.5 - 10.1 mg/dL 11/05/2018 7:22 AM [facility] Specimen Anatomical Collection Method Collection Time Receive d Time (Source) Location / / Volume Laterality Blood specimen 11/05/2018 6:42 AM 019 6:43 (specimen) CDT AM CDT Chuck Cook MD LAB - BLOOD ORDERABLES Performing Organization Address City/State/ZIP Code Phon e Number [facility] [address] [address] [facility] [address] [place], [place] [address], [facility] [phone] [facility] [address] [id number], [facility] [phone] [facility] Clostridium difficile toxin B PCR (11/04/2018 7:49 PM CDT) [facility] Method Time Signature Specimen Feces 11/04/2018 [facility] 7:49 PM CDT [facility] C Diff Toxin B Negative NEG^Negat 11/05/2018 [facility] sung 12:21 AM CDT [facility] Comment: Negative: Clostridium difficile target D NA sequences NOT detected, presumed negative for Clostridium difficile toxin B or the number of bacteria present may be below the limit of detection for the test. FDA approved assay performed using [employer] GeneXpert real-time PCR. A negative result does not exclude actua l disease due to Clostridium difficile and may be due to improper collection, handling and storage of the specimen or the number of organisms in the specim en is below the detection limit of the assay. Specimen Anatomical Collection Method Collection Time Receive d Time (Source) Location / / Volume Laterality Stool specimen 11/04/2018 7:49 PM 019 8:00 (specimen) CDT PM CDT Mervin Morales MD LAB - MICRO GENERAL ORDERABL ES Performing Organization Address City/State/ZIP Code Phon e Number [id number] [place] [address] [address] [place] [address] [facility] [phone] Blood culture (11/04/2018 4:35 PM CDT) [facility] Method Time Signature Specimen Blood Right INFECTIOUS Description Hand DISEASES DIAGNOSTIC LABORATORY Special Aerobic and 11/04/2018 INFECTIOUS Requests anaerobic 11:21 PM DISEASES bottles CDT DIAGNOSTIC received LABORATORY Culture Micro No growth 11/10/2018 INFECTIOUS 2:56 AM CDT DISEASES DIAGNOSTIC LABORATORY Specimen Anatomical Collection Method Collection Time Receive d Time (Source) Location / / Volume Laterality Blood specimen 11/04/2018 4:35 PM 019 7:34 (specimen) CDT PM CDT Comment: Right Hand Mervin Morales MD LAB - MICRO GENERAL ORDERABL ES Performing Organization Address City/State/ZIP Code Phon e Number INFECTIOUS DISEASES [address] [place] [address] DIAGNOSTIC LABORATORY, [facility] INFECTIOUS DISEASES [address] [place] [address], [place] DIAG[place]IC LAB[place] (ABNORMAL) Basic metabolic panel (11/04/2018 4:35 PM CDT) P athologist Signature Sodium 136 133 - 144 11/04/2018 [place] mmol/L 7:48 PM [facility] Potassium 3.0 (L) 3.4 - 5.3 11/04/2018 [place] mmol/L 7:48 PM [facility] Chloride 97 94 - 109 11/04/2018 [place] mmol/L 7:48 PM [facility] Carbon Dioxide 31 20 - 32 11/04/2018 [place] mmol/L 7:54 PM [facility] Anion Gap 8 3 - 14 11/04/2018 [place] mmol/L 7:54 PM [facility] Glucose 74 70 - 99 11/04/2018 [place] mg/dL 7:54 PM [facility] Urea Nitrogen 8 7 - 30 11/04/2018 [place] mg/dL 7:54 PM [facility] Creatinine 0.81 0.52 - [facility]/04/2018 [facility]/dL 7:54 PM [facility] GFR Estimate 75 >60 11/04/2018 [place] mL/min/{1. 7:54 PM [facility] 73_m2} [facility] Comment: Non GFR Calc Starting 02/16/2018, serum creatinine ba sed estimated GFR (eGFR) will be calculated using the Chronic Kidney Dise [employer] [facility] Epidemiology Collaboration (CKD-EPI) equation. GFR Estimate If 87 >60 mL/min/{1.73_m2} 11/04/2018 7: [address] [facility] Comment: GFR Calc Starting 02/16/2018, serum creatinine ba sed estimated GFR (eGFR) will be calculated using the Chronic Kidney Dise [employer] [facility] Epidemiology Collaboration (CKD-EPI) equation. Calcium 9.0 8.5 - 10.1 mg/dL 11/04/2018 7:54 PM [facility] Specimen Anatomical Collection Method Collection Time Receive d Time (Source) Location / / Volume Laterality Blood specimen 11/04/2018 4:35 PM 019 7:31 (specimen) CDT PM CDT Mervin Morales MD LAB - BLOOD ORDERABLES Performing Organization Address City/State/ZIP Code Phon e Number M [facility] [address], [place] [address] [facility] [address] [phone] (ABNORMAL) CBC with platelets differential (11/04/2018 4:35 PM CDT) [facility] gist Method Time Signature WBC 9.9 4.0 - 11/04/2018 [facility] 11.0 7:35 PM [facility] 10e9/L [facility] RBC Count 4.22 3.8 - 5.2 11/04/2018 [facility] 10e12/L 7:35 PM [facility] Hemoglobin 14.3 11.7 - 11/04/2018 [facility] 15.7 g/dL 7:35 PM [facility] Hematocrit 42.9 35.0 - 11/04/2018 [facility] 47.0 % 7:35 PM [facility] MCV 102 (H) 78 - 100 11/04/2018 [facility] fl 7:35 PM [facility] MCH 33.9 (H) 26.5 - 11/04/2018 [facility] 33.0 pg 7:35 [facility] MCHC 33.3 31.5 - 11/04/2018 [facility] 36.5 g/dL 7:35 PM [facility] RDW 13.3 10.0 - 11/04/2018 [facility] 15.0 % 7:35 PM [facility] Platelet Count 233 150 - 450 11/04/2018 [facility] 10e9/L 7:35 PM [facility] Diff Method Automated 11/04/2018 [facility] Method 7:35 PM [facility] % Neutrophils 69.4 % 11/04/2018 [facility] 7:35 PM [facility] % Lymphocytes 23.2 % 11/04/2018 [facility] 7:35 PM [facility] % Monocytes 5.9 % 11/04/2018 [facility] 7:35 PM [facility] % Eosinophils 0.8 % 11/04/2018 [facility] 7:35 PM [facility] % Basophils 0.4 % 11/04/2018 [facility] 7:35 PM [facility] % Immature 0.3 % 11/04/2018 [facility] Granulocytes 7:35 PM [facility] Nucleated RBCs 0 0 /100 11/04/2018 [place] 7:35 PM [facility] Absolute 6.8 1.6 - 8.3 11/04/2018 [place] Neutrophil 10e9/L 7:35 PM [facility] Absolute 2.3 0.8 - 5.3 11/04/2018 [place] Lymphocytes 10e9/L 7:35 PM [facility] Absolute 0.6 0.0 - 1.3 11/04/2018 [place] Monocytes 10e9/L 7:35 PM [facility] Absolute 0.1 0.0 - 0.7 11/04/2018 [place] Eosinophils 10e9/L 7:35 PM [facility] Absolute 0.0 0.0 - 0.2 11/04/2018 [place] Basophils 10e9/L 7:35 PM [facility] Abs Immature 0.0 0 - 0.4 11/04/2018 [place] Granulocytes 10e9/L 7:35 PM [facility] Absolute 0.0 11/04/2018 [place] Nucleated RBC 7:35 PM [facility] Specimen Anatomical Collection Method Collection Time Receive d Time (Source) Location / / Volume Laterality Blood specimen 11/04/2018 4:35 PM 019 7:31 (specimen) CDT CDT Mervin Morales MD LAB - BLOOD ORDERABLES Performing Organization Address City/State/ZIP Code Phon e Number M [place] [address] [phone] documented in this encounter Visit Diagnoses Diagnosis Cellulitis of right foot Cellulitis and abscess of foot, except t oes Diarrhea, unspecified type H/O Clostridium difficile infection Personal history of other infectious and parasitic disease documented in this encounter Admitting Diagnoses Diagnosis Cellulitis of right foot Cellulitis and abscess of foot, except t oes Diarrhea, unspecified type documented in this encounter Administered Medications Inactive Administered Medications - up to 3 most recent administrations Medication Order MAR Action Action Date Dose Rate Site 0.9% sodium chloride + KCl 20 New Bag 11/04/2018 10:42 PM CDT 100 mL/hr mEq/L infusion at 100 mL/hr, Intravenous, CONTINUOUS, Starting on Sheeba 11/04/18 at 2151, Until Thu11/05/18 at 0750 ceFAZolin (ANCEF) intermittent infusion 1 g New Bag 11/04/2018 7:51 PM CDT 1 g STAT, 1 g, Intravenous, ONCE, On Sheeba 11/04/18 at 1921, For 1 dose, Indications: Skin and Soft Tissue Infection ceFAZolin (ANCEF) intermittent infusion 1 g New Bag 11/05/2018 9:27 PM CDT 1 g Routine, 1 g, Intravenous, EVERY 8 HOURS, First dose on Thu11/05/18 at 0400, Indications: Skin and Soft Tissue Infection New Bag 11/05/2018 12:46 PM CDT 1 g New Bag 11/05/2018 4:05 AM CDT 1 g cephALEXin (KEFLEX) capsule 500 mg Given 11/06/2018 8:22 AM CDT 500 mg Routine, 500 mg, Oral, 3 TIMES DAILY, First dose on 11/06/18 at 0800, Indications: Skin and Soft Tissue Infection furosemide (LASIX) tablet 40 mg Given 11/06/2018 10:01 AM CDT 40 mg 40 mg, Oral, 2 TIMES DAILY, First dose (after last reorder) on 11/06/18 at 0941 HYDROcodone-acetaminophen (NORCO) 5-325 MG Given 11/06 8:21 AM CDT 1 tablet per tablet 1 tablet 1 tablet, Oral, 3 TIMES DAILY PRN, moderate to severe pain, Starting on Thu11/05/18 at 1617, Maximum acetaminophen dose from all sources= 75 mg/kg/day not to exceed 4 grams Given 11/06/2018 1:39 AM CDT 1 tablet Given 11/05/2018 4:47 PM CDT 1 tablet HYDROcodone-acetaminophen (NORCO) 5-325 MG Given 11/05 8:18 PM CDT 1 tablet per tablet 1 tablet 1 tablet, Oral, ONCE PRN, moderate to severe pain, Starting on Thu11/05/18 at 1857, For 1 dose, Maximum acetaminophen dose from all sources= 75 mg/kg/day not to exceed 4 grams HYDROmorphone (PF) (DILAUDID) injection 0.5 Given 11/04/2018 8:01 PM CDT 0.5 mg mg 0.5 mg, Intravenous, EVERY 15 MIN PRN, moderate to severe pain, Starting on Sheeba 11/04/18 at 1919, For 3 doses, For ordered IV doses 0.1-4 mg give IV Push undiluted. Administer each 2mg over 2-5 minutes. methadone (DOLOPHINE) tablet 5 mg Given 11/06/2018 8:21 AM CDT 5 mg 5 mg, Oral, 2 TIMES DAILY, First dose on Thu11/05/18 at 0053, Indication: Maintenance Given 11/05/2018 8:17 PM CDT 5 mg Given 11/05/2018 8:06 AM CDT 5 mg ondansetron (ZOFRAN) injection 4 mg Given 11/04/2018 8:02 PM CDT 4 mg 4 mg, Intravenous, ONCE, Administer over 2-5 Minutes, On [place] 11/04/18 at 1959, For 1 dose, Irritant. For ordered IV doses 0.1-4 mg, give IV Push undiluted over 2-5 minutes. ondansetron (ZOFRAN) injection 4 mg 4 mg, Intravenous, EVERY 6 HOURS PRN, nausea, vomiting , Administer over 2-5 Minutes, Starting on Sheeba 11/04/18 at 2144, This is Step 1 of nausea and vomiting management. If nausea not resolved in 15 minutes, go t o Step 2 prochlorperazine (COMPAZINE). Irritant. For ordered IV do ses 0.1-4 mg, give IV Push undiluted over 2-5 minutes. ondansetron (ZOFRAN-ODT) ODT tab 4 mg Given 11/06/2018 8:22 AM CDT 4 mg 4 mg, Oral, EVERY 6 HOURS PRN, nausea, vomiting, Starting on Sheeba 11/04/18 at 2144, This is Step 1 of nausea and vomiting management. If nausea not resolved in 15 minutes, go to Step 2 prochlorperazine (COMPAZINE). Do not push through foil backing. Peel back foil and gently remove. Place on tongue immediately. Administration with liquid unnecessary With dry hands, peel back foil backing and gently remove tablet. Do not push oral disintegrating tablet through foil backing. Administer immediately on tongue and oral disintegrating tablet dissolves in seconds, then swallow with saliva. Liquid not required. Given 11/05/2018 9:27 PM CDT 4 mg Given 11/05/2018 3:27 PM CDT 4 mg oxyCODONE (ROXICODONE) tablet 5 mg Given 11/05/2018 12:46 PM CDT 5 mg 5 mg, Oral, EVERY 4 HOURS PRN, other, pain control or improvement in physical function., Starting on Sheeba 11/04/18 at 2149, Start with the lowest dose. May adjust dose by 5 mg every 3 hours as needed for pain control or improvement in physical function. Hold dose for analgesic side effects. Notify provider to assess for uncontrolled pain or analgesic side effects. Given 11/05/2018 8:39 AM CDT 5 mg Given 11/05/2018 4:11 AM CDT 5 mg pantoprazole (PROTONIX) EC tablet 20 mg Given 11/06/2018 8:22 AM CDT 20 mg 20 mg, Oral, DAILY, First dose on Thu11/05/18 at 0937, Formulary alternate for esomeprazole (Nexium) 20 mg capsule. Given 11/05/2018 10:32 AM CDT 20 mg potassium chloride (KLOR-CON) Packet 20- 40 mEq 20-40 mEq, Oral or Feeding Tube, EVERY 2 HOURS PRN, po tassium supplementation, Starting on Thu11/05/18 at 0938, Use if unable to devendra ate tablets. If Serum K+ 3.0-3.3, dose = 60 mEq po total dose (40 mEq x1 followed in 2 hours by 20 mEq x1). Recheck K+ level 4 hours after dose and the next AM. If Serum K+ 2.5-2.9, dose = 80 mEq po total dose (40 mEq Q2H x2). Reche ck K+ level 4 hours after dose and the next AM. If Serum K+ less than 2.5, See IV or fredy. Dissolve packet contents in 4-8 ounces of cold water or juice. potassium chloride 10 mEq in 100 mL inte rmittent infusion with 10 mg lidocaine 10 mEq, Intravenous, Administer over 1 Hours, EVERY 1 HOUR PRN, potassium supplementation, Starting on Thu11/05/18 at 0938, Infuse via PERIPHERAL LINE. Use potassium with lidocaine for pain with peripheral admi nistration. If Serum K+ 3.0-3.3, dose = 10 mEq/hr x4 doses (40 m Eq IV total dose). Recheck K+ level 2 hours after dose and the next AM. If Serum K+ less than 3.0, dose = 10 mEq/hr x6 doses (60 mEq IV total dose). Recheck K+ level 2 hours after dose and the next AM. potassium chloride 10 mEq in 100 mL ster ile water intermittent infusion (premix) 10 mEq, Intravenous, Administer over 60 Minutes, at 100 mL/hr, EVERY 1 HOUR PRN, potassium supplementation, Starting on 11/05/18 at 0938, Infuse via PERIPHERAL LINE or CENTRAL LINE. Use for central li ne replacement if patient weight less than 65 kg, if patient is on TPN with high po tassium content or if unit does not stock 20 mEq bags. If Serum K+ 3.0-3.3, dose = 10 mEq/hr x4 doses (40 mEq IV total dose). Recheck K+ level 2 hours after dose and the next AM. I f Serum K+ less than 3.0, dose = 10 mEq/hr x6 doses (60 mEq IV tot al dose). Recheck K+ level 2 hours after dose and the next AM. potassium chloride 20 mEq in 50 mL inter mittent infusion 20 mEq, Intravenous, EVERY 1 HOUR PRN, p otassium supplementation, Starting on Thu11/05/18 at 0938, Infuse via CENTRAL LINE Only. May need EKG if less than 65 kg or on TPN - Max rate is 0.3 mEq/kg/hr for patients not on EK G monitoring. If Serum K+ 3.0-3.3, dose = 20 mEq/hr x2 doses (40 m Eq IV total dose). Recheck K+ level 2 hours after dose and the next AM. If Serum K+ less than 3.0, dose = 20 mEq/hr x3 doses (60 mEq IV total dose). Recheck K+ level 2 hours after dose and the next AM. potassium chloride ER (K-DUR/KLOR-CON M) CR Given 07/2018 12:46 PM CDT 20 mEq tablet 20-40 mEq 20-40 mEq, Oral, EVERY 2 HOURS PRN, potassium supplementation, Starting on Thu11/05/18 at 0938, Use if able to take PO. If Serum K+ 3.0-3.3, dose = 60 mEq po total dose (40 mEq x1 followed in 2 hours by 20 mEq x1). Recheck K+ level 4 hours after dose and the next AM. If Serum K+ 2.5-2.9, dose = 80 mEq po total dose (40 mEq Q2H x2). Recheck K+ level 4 hours after dose and the next AM. If Serum K+ less than 2.5, See IV order. DO NOT CRUSH Given 11/05/2018 10:31 AM CDT 40 mEq potassium chloride ER (K-TAB/KLOR-CON) CR Given 11/06/2018 10:02 AM CDT 10 mEq tablet 10 mEq 10 mEq, Oral, 3 TIMES DAILY, First dose on 11/06/18 at 0941, DO NOT CRUSH. prochlorperazine (COMPAZINE) injection 5 mg 5 mg, Intravenous, EVERY 6 HOURS PRN, nausea, vomiting , Administer over 1-2 Minutes, Starting on [place] 11/04/18 at 2149, This is Step 2 of nausea and vomiting management. Give if nausea not resolved 15 minutes aft er giving ondansetron (ZOFRAN). If nausea not resolved in 15 minutes, go to Step 3 metoclopramide (REGLAN), if ordered. For ordered IV dos es 0.1-10 mg, give IV Push undiluted. Each 5mg over 1 minute. prochlorperazine (COMPAZINE) Suppository 12.5 mg 12.5 mg, Rectal, EVERY 12 HOURS PRN, jim sea, vomiting, Starting on [place]eba 11/04/18 at 2149, This is Step 2 of nausea and vomit ing management. Give if nausea not resolved 15 minutes after giving ondansetron (ZOF RAN). If nausea not resolved in 15 minutes, go to Step 3 metoclopramide (REGLAN), if ordered. prochlorperazine (COMPAZINE) tablet 5 mg 5 mg, Oral, EVERY 6 HOURS PRN, vomiting, Starting on [place]eba 11/04/18 at 2149, This is Step 2 of nausea and vomiting management . Give if nausea not resolved 15 minutes after giving ondansetron (ZOFRAN). If na usea not resolved in 15 minutes, go to Step 3 metoclopramide (REGLAN), if ordered. saccharomyces boulardii (FLORASTOR) capsule Given 11/06/2018 8:21 AM CDT 250 mg 250 mg 250 mg, Oral, 2 TIMES DAILY, First dose on Thu11/05/18 at 0936, Capsules may be opened and sprinkled on semisolid food or added to beverage. Given 11/05/2018 8:18 PM CDT 250 mg Given 11/05/2018 10:31 AM CDT 250 mg traZODone (DESYREL) tablet 50 mg Given 11/05/2018 10:48 PM CDT 50 mg 50 mg, Oral, AT BEDTIME, First dose on Thu11/05/18 at 0001 traZODone (DESYREL) tablet 50 mg Given 11/05/2018 12:44 AM CDT 50 mg 50 mg, Oral, AT BEDTIME PRN, sleep, Starting on Thu11/05/18 at 0000 documented in this encounter Active and Recently Administered Medications Times are shown in CDT. Scheduled Medication Order 11/04/2018 11/05/2018 11/06/2018 ceFAZolin (ANCEF) intermittent infusion 1 g (COMPLETED ) 1950 (New Bag - Provider: Bryan Mendes RN - Comment: scanner not reading barcode)224 (Stopped - Provider: Grisel Samson RN - Comment: Clearing the MAR) 1 g, Intravenous, ONCE, [place] 11/04/18 at 19 21, For 1 dose, Indications: Skin and Soft Tissue Infection ceFAZolin (ANCEF) intermittent infusion 1 g (CANCELED) 0405 (New Bag - Provider: Grisel Samson RN)1246 (New Bag - Provider: Elizabeth Chong RN)2127 (New Bag - Provider: Ashley Lyle RN) 0804 (Stopped - Provider: Jesi Callahan, SANTOS) 1 g, Intravenous, EVERY 8 HOURS, First d ose on Thu11/05/18 at 0400, Indications: Skin and Soft Tissue Infection cephALEXin (KEFLEX) capsule 500 mg 0822 (Given - Provider: Jesi Callahan, SANTOS)1400 (Canceled Entry - Provider: Orders Generic Provider - Comment: Automatically canceled at discontinue of medication order) 500 mg, Oral, 3 TIMES DAILY, First dose on Thu11/06/18 at 0800, Indications: Skin and Soft Tissue Infection furosemide (LASIX) tablet 40 mg 1001 (Given - Provider: Jesi Callahan, SANTOS) 40 mg, Oral, 2 TIMES DAILY, First dose on 11/06/18 at 0941 methadone (DOLOPHINE) tablet 5 mg 0153 ( Given - Provider: Grisel Samson, SANTOS)08 (Given - Provider: Elizabeth Chong RN)2016 (Given - Provider: Osiris Cuellar, RN) 08 (Given - Provider: Jesi guzman RN) 5 mg, Oral, 2 TIMES DAILY, First dose on Thu11/05/18 at 0053, Indication: Maintenance ondansetron (ZOFRAN) injection 4 mg (COMPLETED) 2001 ( Given - Provider: Dino Meraz RN) 4 mg, Intravenous, ONCE, Administer over 2-5 Minutes, [facility] 11/04/18 at 1959, For 1 dose, Irritant. For ordered IV doses 0.1-4 mg, give IV Push undiluted over 2-5 minutes. pantoprazole (PROTONIX) EC tablet 20 mg 1032 (Given - Provider: Elizabeth Chong RN) 08 (Given - Provider: Jesi guzman RN) 20 mg, Oral, DAILY, First dose on 08/18 at 0937, Formulary alternate for esomeprazole (Nexium) 20 mg capsule. potassium chloride ER (K-TAB/KLOR-CON) CR tablet 10 mEq 1002 (Given - Provider: Jesi Callahan RN)1400 (Canceled Entry - Provider: Orders Generic Provider - Comment: Automatically canceled at discontinue of medication order) 10 mEq, Oral, 3 TIMES DAILY, First dose on 11/06/18 at 0941, D O NOT CRUSH. saccharomyces boulardii (FLORASTOR) capsule 250 mg 1031 (Given - Provider: Elizabeth Chong RN)2017 (Given - Provider: Osiris Cuellar, SANTOS) 08 (Given - Provider: Jesi Callahan RN) 250 mg, Oral, 2 TIMES DAILY, First dose on Thu11/05/18 at 0936, Capsules may be opened and sprinkled on semisolid food or added to beverage. traZODone (DESYREL) tablet 50 mg 0026 (N ot Given - Provider: Grisel Samson, SANTOS - Reason: Patient sleeping)2248 (Given - Provider: Ashley Lyle, SANTOS) 50 mg, Oral, AT BEDTIME, First dose on Thu11/05/18 at 0001 Continuous Medication Order 11/04/2018 11/05/2018 11/06/2018 0.9% sodium chloride + KCl 20 mEq/L infusion () 2242 (New Bag - Provider: Grisel Samson RN) 0800 (Stopped - Provider: Elizabeth Chong RN) at 100 mL/hr, Intravenous, CONTINUOUS, S tarting Sheeba 11/04/18 at 2151, Until Thu11/05/18 at 0750 PRN Medication Order 11/04/2018 11/05/2018 11/06/2018 acetaminophen (TYLENOL) tablet 650 mg 650 mg, Oral, EVERY 4 HOURS PRN, mild pa in, Starting Sheeba 11/04/18 at 2144, Alternate ibuprofen (if ordered) with acetaminophen. Maximum acetaminophen dose from all sources = 75 mg/kg/day not to exceed 4 grams/day. HYDROcodone-acetaminophen (NORCO) 5-325 MG per tablet 1 tabl et 1647 (Given - Provider: Elizabeth Chong RN) 0139 (Given - Provider: Jermain Teague, RN)0821 (Given - Provider: Jesi Callahan, SANTOS) 1 tablet, Oral, 3 TIMES DAILY PRN, moder ate to severe pain, Starting Thu11/05/18 at 1617, Maximum acetaminophen dose from all sources= 75 mg/kg/day not to exceed 4 grams HYDROcodone-acetaminophen (NORCO) 5-325 MG per tablet 1 tabl et (COMPLETED) 2017 (Given - Provider: Osiris Cuellar, SANTOS) 1 tablet, Oral, ONCE PRN, moderate to se ana maria pain, Starting 11/05/18 at 1857, For 1 dose, Maximum acetaminophen dose from all sources= 75 mg/kg/day not to exceed 4 grams HYDROmorphone (PF) (DILAUDID) injection 0.5 mg (CANCEL ED) 2000 (Given - Provider: Dino Meraz, SANTOS) 0.5 mg, Intravenous, EVERY 15 MIN PRN, 3 doses, Starting Sheeba 11/04/18 at 1919, Until Sheeba 11/04/18 at 2150, moderate to severe pain, For ordered IV doses 0.1-4 mg give IV Push undiluted. Administer each 2mg over 2-5 minutes. melatonin tablet 1 mg 1 mg, Oral, AT BEDTIME PRN, sleep, Start ing [facility] 11/04/18 at 2144, Do not give unless at least 6 hours of uninterrupted sleep is expected. naloxone (NARCAN) injection 0.1-0.4 mg 0.1-0.4 mg, Intravenous, EVERY 2 MIN PRN , opioid reversal, Starting [facility] 11/04/18 at 2144, For respiratory rate LESS than or EQUAL to 8. Partial reversal dose: 0.1 mg titrated q 2 minutes for Analgesia Blas e Effects Monitoring Sedation Level of 3 (frequently drowsy, arousable, drifts to sleep during conversation).Full reversal dose: 0.4 mg bolus for Analgesia Side Effects Monitoring Sedation Level of 4 (s omnolent, minimal or no response to stim ulation). For ordered IV doses 0.1-2mg give IVP. Give each 0.4mg over 15 seconds in emergency situations. For non- emergent situations further dilute in 9mL of NS to facilitate titration of response. ondansetron (ZOFRAN) injection 4 mg(Linked Group 1) 22 42 (See Alternative - Provider: Grisel Samson RN) 0839 (See Alternative - Provider: John Chong RN)1527 (See Alternative - Provider: Elizabeth Chong, SANTOS)2127 (See Alternative - Provider: Ashley Lyle, RN) 0822 (See Alternative - Provider: Néstor Callahan, SANTOS) 4 mg, Intravenous, EVERY 6 HOURS PRN, na usea, vomiting, Administer over 2-5 Minutes, Starting [facility] 11/04/18 at 2144, This is Step 1 of nausea and vomiting management. If nausea not resolved in 15 minutes, go to Step 2 prochlorperazine (COMPAZINE ). Irritant. For ordered IV doses 0.1-4 mg, give IV Push undiluted over 2-5 minutes. ondansetron (ZOFRAN-ODT) ODT tab 4 mg(Linked Group 1) 9032 (Given - Provider: Grisel Samson, SANTOS) 0839 (Given - Provider: Elizabeth Chong RN)1527 (Given - Provider: Elizabeth Chong, SANTOS)2127 (Given - Provider: Ashley Lyle RN) 0822 (Given - Provider: Jesi Callahan RN) 4 mg, Oral, EVERY 6 HOURS PRN, nausea, v omiting, Starting [place] 11/04/18 at 2144, This is Step 1 of nausea and vomiting management. If nausea not resolved in 15 minutes, go to Step 2 prochlorperazine (REYMUNDO ZINE). Do not push through foil backing. Peel back foil and gently remove. Place on tongue immediately. Administration with liquid unnecessary With dry hands, peel back foil backing and gently remove ta blet. Do not push oral disintegrating ta blet through foil backing. Administer immediately on tongue and oral disintegrating tablet dissolves in seconds, then swallow with saliva. Liquid not required. oxyCODONE (ROXICODONE) tablet 5 mg (CANCELED) 7952 (Gi nickolas - Provider: Grisel Samson RN) 0411 (Given - Provider: Darnell Bowen)0839 (Given - Provider: Elizabeth Chong RN)1246 (Given - Provider: Elizabeth Chong RN) 5 mg, Oral, EVERY 4 HOURS PRN, other, pa in control or improvement in physical function., Starting [place]eba 11/04/18 at 2149, Start with the lowest dose. May adjust dose by 5 mg every 3 hours as needed for pain control or improvement in physical func tion. Hold dose for analgesic side effects. Notify provider to assess for uncontrolled pain or analgesic side effects. potassium chloride (KLOR-CON) Packet 20-40 mEq 20-40 mEq, Oral or Feeding Tube, EVERY 2 HOURS PRN, Starting Thu11/05/18 at 0938, potassium supplementation, Use if unable to tolerate tablets. If Serum K+ 3.0- 3.3, dose = 60 mEq po total dose (40 mEq x1 followed in 2 hours by 20 mEq x1). Rech dionisio K+ level 4 hours after dose and the next AM. If Serum K+ 2.5-2.9, dose = 80 mEq po total dose (40 mEq Q2H x2). Recheck K+ level 4 hours after dose and the nex t AM. If Serum K+ less than 2.5, See IV order. Dissolve packet contents in 4-8 ounces of cold water or juice. potassium chloride 10 mEq in 100 mL intermittent infusion wi th 10 mg lidocaine 10 mEq, Intravenous, Administer over 1 H ours, EVERY 1 HOUR PRN, Starting Thu11/05/18 at 0938, potassium supplementation, Infuse via PERIPHERAL LINE. Use potassium with lidocaine for pain with peripheral administration. If Serum K+ 3.0-3.3, dos e = 10 mEq/hr x4 doses (40 mEq IV total dose). Recheck K+ level 2 hours after dose and the next AM. If Serum K+ less than 3.0, dose = 10 mEq/hr x6 doses (60 mEq I V total dose). Recheck K+ level 2 hours after dose and the next AM. potassium chloride 10 mEq in 100 mL ster ile water intermittent infusion (premix) 10 mEq, Intravenous, Administer over 60 Minutes, EVERY 1 HOUR PRN, Starting Thu11/05/18 at 0938, potassium supplementation, Infuse via PERIPHERAL LINE or CENTRAL LINE. Use for central line replacement if patient weight less than 65 kg, if charlene ent is on TPN with high potassium content or if unit does not stock 20 mEq bags. If Serum K+ 3.0-3.3, dose = 10 mEq/hr x4 doses (40 mEq IV total dose). Recheck K+ level 2 hours after dose and the next A M. If Serum K+ less than 3.0, dose = 10 mEq/hr x6 doses (60 mEq IV total dose). Recheck K+ level 2 hours after dose and the next AM. potassium chloride 20 mEq in 50 mL intermittent infusion 20 mEq, Intravenous, EVERY 1 HOUR PRN, S tarting Thu11/05/18 at 0938, potassium supplementation, Infuse via CENTRAL LINE Only. May need EKG if less than 65 kg or on TPN - Max rate is 0.3 mEq/kg/hr for pat ients not on EKG monitoring. If Serum K+ 3.0-3.3, dose = 20 mEq/hr x2 doses (40 mEq IV total dose). Recheck K+ level 2 hours after dose and the next AM. If Serum K+ less than 3.0, dose = 20 mEq/hr x3 do ses (60 mEq IV total dose). Recheck K+ l evel 2 hours after dose and the next AM. potassium chloride ER (K-DUR/KLOR-CON M) CR tablet 20-40 mEq 1031 (Given - Provider: Elizabeth Chong, SANTOS)1246 (Given - Provider: Elizabeth Chong RN) 20-40 mEq, Oral, EVERY 2 HOURS PRN, Star ting 11/05/18 at 0938, potassium supplementation, Use if able to take PO. If Serum K+ 3.0-3.3, dose = 60 mEq po total dose (40 mEq x1 followed in 2 hours by 20 mEq x1). Recheck K+ level 4 hours after dose and the next AM. If Serum K+ 2.5- 2.9, dose = 80 mEq po total dose (40 mEq Q2H x2). Recheck K+ level 4 hours after dose and the next AM. If Serum K+ less than 2.5, See IV order. DO NOT CRUSH prochlorperazine (COMPAZINE) injection 5 mg(Linked Group 2) 5 mg, Intravenous, EVERY 6 HOURS PRN, na usea, vomiting, Administer over 1-2 Minutes, Starting Sheeba 11/04/18 at 2149, This is Step 2 of nausea and vomiting management. Give if nausea not resolved 15 minutes after giving ondansetron (ZOFRAN). If n ausea not resolved in 15 minutes, go to Step 3 metoclopramide (REGLAN), if ordered. For ordered IV doses 0.1-10 mg, give IV Push undiluted. Each 5mg over 1 minute. prochlorperazine (COMPAZINE) Suppository 12.5 mg(Linked Group 2) 12.5 mg, Rectal, EVERY 12 HOURS PRN, jim sea, vomiting, Starting Sheeba 11/04/18 at 2149, This is Step 2 of nausea and vomiting management. Give if nausea not resolved 15 minutes after giving ondansetron (ZOF RAN). If nausea not resolved in 15 minut es, go to Step 3 metoclopramide (REGLAN), if ordered. prochlorperazine (COMPAZINE) tablet 5 mg(Linked Group 2) 5 mg, Oral, EVERY 6 HOURS PRN, vomiting, Starting Sheeba 11/04/18 at 2149, This is Step 2 of nausea and vomiting management. Give if nausea not resolved 15 minutes after giving ondansetron (ZOFRAN). If nause a not resolved in 15 minutes, go to Step 3 metoclopram roberto (REGLAN), if ordered. traZODone (DESYREL) tablet 50 mg 0044 (Given - P aislinnder: Grisel Samson RN) 50 mg, Oral, AT BEDTIME PRN, sleep, Starting 11/05/18 at 0000 Linked Groups Order Group 1: ondansetron (ZOFRAN-ODT) ODT tab 4 mgJump to med 4 mg, Oral, EVERY 6 HOURS PRN, nausea, v omiting, Starting Sheeba 11/04/18 at 2144
This is Step 1 of nausea and vomiting management. If nausea not resolved in 15 minutes, go to Chu p 2 prochlorperazine (COMPAZINE). Do not push through foil backing. Peel back foil and gently remove. Place on tongue immediately. Administration with liquid unnecessary With dry hands, peel ba ck foil backing and gently remove tablet . Do not push oral disintegrating tablet through foil backing. Administer immediately on tongue and oral disintegrating tablet dissolves in seconds, then swallow with saliva. Liquid not required.
Or ondansetron (ZOFRAN) injection 4 mgJump to med 4 mg, Intravenous, EVERY 6 HOURS PRN, na usea, vomiting, Administer over 2-5 Minutes, Starting Sheeba 11/04/18 at 2144
This is Step 1 of nausea and vomiting management. If nausea n ot resolved in 15 minutes, go to Step 2 prochlorperazine (COMPAZINE). Irritant. For ordered IV doses 0.1-4 mg, give IV Push undiluted over 2-5 minutes.
Group 2: prochlorperazine (COMPAZINE) injection 5 mgJump to med 5 mg, Intravenous, EVERY 6 HOURS PRN, na usea, vomiting, Administer over 1-2 Minutes, Starting Sheeba 11/04/18 at 2149
This is Step 2 of nausea and vomiting management. Give if nausea not resolved 15 minutes after giving ondansetron (ZOFRA N). If nausea not resolved in 15 minutes, go to Step 3 metoclopramide (REGLAN), if ordered. For ordered IV doses 0.1-10 mg, give IV Push undiluted. Each 5mg over 1 minute.
Or prochlorperazine (COMPAZINE) tablet 5 mgJump to med 5 mg, Oral, EVERY 6 HOURS PRN, vomiting, Starting Sheeba 11/04/18 at 2149
This is Step 2 of nausea and vomiting management. Give if nausea not resolved 15 minutes after giving ondansetron (ZOFRAN). If nausea not resolved in 15 minutes, go to Step 3 metoclopramide (REGLAN), if ordered.
Or prochlorperazine (COMPAZINE) Suppository 12.5 mgJump to med 12.5 mg, Rectal, EVERY 12 HOURS PRN, jim sea, vomiting, Starting Sheeba 11/04/18 at 2149
This is Step 2 of nausea and vomiting management. Give if nausea not resolved 15 minutes after giving ondanset rei (ZOFRAN). If nausea not resolved in 15 minutes, go to Step 3 metoclopramide (REGLAN), if ordered.
documented in this encounter Care Teams Hot Dog Vendor Relationship Specialty Start Date End Date Idalmis Sloan PCP - General Family Practice 11/04/13 documented as of this encounter
--- OUTSIDE RECORDS SUMMARY | 2021-11-12 14:47 | XMS_ITS | Encounter Summary ---
:1950 Author Organization [place] Address [address] [place] [address] Care Team Providers Name Role Phone Idalmis Sloan Primary Care Provider Encounter Details Date Type Department Care Team Description 03/30/2019 Travel Social History Tobacco Use Types Packs/Day Years Used Date Never Smoker Smokeless Tobacco: Never Used Sex Assigned at Date Recorded Not on file documented as of this encounter Plan of Treatment Not on filedocumented as of this encounter Visit Diagnoses Not on filedocumented in this encounter Care Teams Communications Marketing Intern Relationship Specialty Start Date End Date Idalmis Sloan PCP - General Family Practice 11/04/13 documented as of this encounter
--- OUTSIDE RECORDS SUMMARY | 2021-11-12 14:47 | XMS_ITS | Encounter Summary ---
:1950 Author Organization [place] Address [address] [place] [address] Care Team Providers Name Role Phone Idalmis Sloan Primary Care Provider Encounter Details Date Type Department Care Team Description 10/29/2020 Travel Social History Tobacco Use Types Packs/Day Years Used Date Never Smoker Smokeless Tobacco: Never Used Sex Assigned at Date Recorded Not on file documented as of this encounter Plan of Treatment Not on filedocumented as of this encounter Visit Diagnoses Not on filedocumented in this encounter Care Teams Bonsai Tender Relationship Specialty Start Date End Date Idalmis Sloan PCP - General Family Practice 11/04/13 documented as of this encounter
--- OUTSIDE RECORDS SUMMARY | 2021-11-12 14:47 | XMS_ITS | Encounter Summary ---
:1950 Author Organization [place] Address [facility] [place] [address] Care Team Providers Name Role Phone Idalmis Sloan Primary Care Provider Reason for Visit Diagnostic Imaging XR (Routine) - Closed Specialty Diagnoses / Procedures Referred By Contact Refer red To Contact Diagnoses Acute bilateral low back pain with left-sided sciatica Ana Jacobs PA-C Procedures XR Lumbar Bending Only 2/3 Views [facility] [address] [facility] [place] [id number] Referral ID Status Reason Start Date Expiration Date Visits Requ ested Visits Authorized [id number] Closed 10/29/2020 10/29/2021 1 1 Encounter Details Date Type Department Care Team Description 10/29/2020 Ancillary Procedure [facility] Ana Jacobs Acu te bilateral low Sports and VIELKA Alcaraz back pain with Orthopedic Care SPINE AND BRAIN left-side d sciatica [facility] [address] [facility] [address] [facility] [address] [place] [address] [place] [id number] Social History Tobacco Use Types Packs/Day Years Used Date Never Smoker Smokeless Tobacco: Never Used Sex Assigned at Date Recorded Not on file documented as of this encounter Plan of Treatment Not on filedocumented as of this encounter Procedures Procedure Name Priority Date/Time Associated Diagnosis Comme nts XR LUMBAR BENDING Routine 10/29/2020 4:07 PM Acute bilateral l ow Results for this ONLY 2/3 VIEWS CDT back pain with procedure a re in left-sided sciatica the resu lts section. documented in this encounter Results XR Lumbar Bending Only 2/3 Views (10/29/2020 4:07 PM CDT) Anatomical Region Laterality Modality L-spine, T-spine, Abdomen/Pelvis Compute d Radiography Specimen (Source) Anatomical Location Collection Method / Collectio n Time Received Time / Laterality Volume Impressions 10/29/2020 4:29 PM CDT IMPRESSION: 5 lumbar vertebral bodies assumed. Posterior spinal fusion instrumentation extends from L2 to L5. H ardware appears intact. Retrolisthesis of L2 and anterolisthesis of L4 appears similar to prior without evidence for instability w ith flexion or extension. JULIO CÉSAR HUITRON MD SYSTEM ID: ??[id number] Narrative 10/29/2020 4:29 PM CDT XR LUMBAR BENDING ONLY 2/3 VIEWS 10/29/2020 4:07 PM INDICATION: Acute bilateral low back josefina n with left-sided sciatica COMPARISON: 08/28/2011 Procedure Note Julio César Huitron MD - 1 XR LUMBAR BENDING ONLY 2/3 VIEWS 10/30/19 4:07 PM INDICATION: Acute bilateral low back josefina n with left-sided sciatica COMPARISON: 08/28/2011 IMPRESSION: 5 lumbar vertebral bodies as sumed. Posterior spinal fusion instrumentation extends from L2 to L5. H ardware appears intact. Retrolisthesis of L2 and anterolisthesis of L4 appears similar to prior without evidence for instability w ith flexion or extension. JULIO CÉSAR HUITRON MD SYSTEM ID: [id number] Ana Jacobs PA-C [facility] ORDER TRELL documented in this encounter Visit Diagnoses Diagnosis Acute bilateral low back pain with left- sided sciatica documented in this encounter Care Teams Ophthalmic Asst Relationship Specialty Start Date End Date Idalmis Sloan PCP - General Family Practice 11/04/13 documented as of this encounter
--- OUTSIDE RECORDS SUMMARY | 2021-11-12 14:47 | XMS_ITS | Encounter Summary ---
:1950 Author Organization [place] Address [address] [place] [address] Care Team Providers Name Role Phone Idalmis Sloan Primary Care Provider Encounter Details Date Type Department Care Team Description 03/22/2018 Travel Social History Tobacco Use Types Packs/Day Years Used Date Never Smoker Smokeless Tobacco: Never Used Sex Assigned at Date Recorded Not on file documented as of this encounter Plan of Treatment Not on filedocumented as of this encounter Visit Diagnoses Not on filedocumented in this encounter Care Teams President [employer]ing Relationship Specialty Start Date End Date Idalmis Sloan PCP - General Family Practice 11/04/13 documented as of this encounter
--- OUTSIDE RECORDS SUMMARY | 2021-11-12 14:47 | XMS_ITS | Encounter Summary ---
:1950 Author Organization [place] Address [facility] [place] [address] Care Team Providers Name Role Phone Idalmis Sloan Primary Care Provider Encounter Details Date Type Department Care Team Description 03/23/[address] [facility] [place], Lumbar pain (Primary Rehabilitation Services TOXICS PROGRAM OFFICER Dx) [facility] [address] [facility] [address] [place], [place] [id number] Social History Tobacco Use Types Packs/Day Years Used Date Never Smoker Smokeless Tobacco: Never Used Sex Assigned at Date Recorded Not on file documented as of this encounter Plan of Treatment Not on filedocumented as of this encounter Procedures Procedure Name Priority Date/Time Associated Diagnosis Comme nts [facility] THERAPEUTIC Routine 03/23/2019 3:35 PM ATHLETIC COORDINATOR Lumbar pain ACTIVITIES [facility] THERAPEUTIC Routine 03/23/2019 3:35 PM ATHLETIC COORDINATOR Lumbar pain EXERCISES documented in this encounter Visit Diagnoses Diagnosis Lumbar pain - Primary Lumbago documented in this encounter Care Teams Casting Operator Relationship Specialty Start Date End Date Idalmis Sloan PCP - General Family Practice 11/04/13 documented as of this encounter
--- OUTSIDE RECORDS SUMMARY | 2021-11-12 14:47 | XMS_ITS | Encounter Summary ---
:1950 Author Organization [place] Address [facility] [place] [address] Care Team Providers Name Role Phone Idalmis Sloan Primary Care Provider Reason for Visit Diagnostic Imaging XR (Routine) - Closed Specialty Diagnoses / Procedures Referred By Contact Refer red To Contact Diagnoses Acute bilateral low back pain with left-sided sciatica Ana Jacobs PA-C Procedures XR Spine Complete Scoliosis 2 Views [facility] [address] [facility] [place] [id number] Referral ID Status Reason Start Date Expiration Date Visits Requ ested Visits Authorized [id number] Closed 10/29/2020 10/29/2021 1 1 Encounter Details Date Type Department Care Team Description 10/29/2020 Ancillary Procedure [facility] Ana Jacobs Acu te bilateral low Sports and VIELKA Alcaraz back pain with Orthopedic Care [facility] B[facility]IN left-side d sciatica [facility] [address] [facility] [address] [place] [address] [place] [id number] Social History Tobacco Use Types Packs/Day Years Used Date Never Smoker Smokeless Tobacco: Never Used Sex Assigned at Date Recorded Not on file documented as of this encounter Plan of Treatment Not on filedocumented as of this encounter Procedures Procedure Name Priority Date/Time Associated Diagnosis Comme nts XR SPINE COMPLETE Routine 10/29/2020 3:52 PM Acute bilateral l ow Results for this SCOLIOSIS 2 VIEWS CDT back pain with procedur e are in left-sided sciatica the resu lts section. documented in this encounter Results XR Spine Complete Scoliosis 2 Views (10/29/2020 3:52 PM CDT) Anatomical Region Laterality Modality Spine Computed Radiography Specimen (Source) Anatomical Location Collection Method / Collectio n Time Received Time / Laterality Volume Impressions 10/29/2020 6:32 PM CDT IMPRESSION: There is posterior spinal fusion instrumentation again seen extending from L2 through L5. No gr oss findings of hardware loosening or failure identified on the p rovided views. There is diffuse osseous demineralization, limiti ng evaluation for fracture. No gross vertebral body height loss identif ied. Focal levoconvex curvature centered at L1-L2 measuring 40 degrees from the superior endplate of T12 to the inferior endplate of L4. Broad dextroconvex curvature centered at T7 measuring appro ximately 43 degrees from the superior endplate of T5 to the inferior endplate of T11. Exaggerated kyphosis centered at approximately T6-T7 measuring 47 degrees from the superior endplate of T4 to the inferior endplate of T10. Positive sagittal balance. Neutral coronal balanc e. Grade 1 anterolisthesis of L1 on L2 and L4 on L5, as before. Minima l retrolisthesis of L2 on L3. Diffuse moderate to marked multilevel de generative disc disease throughout the thoracic spine and lumbar spine. Multilevel degenerative facet disease. Diffuse athe rosclerotic calcifications of the aortoiliac arteries. Surgical clips in the right upper quadrant of the abdomen, likely related to prior cho lecystectomy. There are a few metallic clips that project over the upp er mid abdomen and the left hip region. Small calcified presumed phl eboliths in the pelvis. Right hip and left glenohumeral joint degenera tive changes. ANGEL GRIFFIN MD Narrative 10/29/2020 6:32 PM CDT XR SPINE COMPLETE SCOLIOSIS TWO VIEWS ??10/29/2020 3:52 AM HISTORY: Acute bilateral low back pain w ith left-sided sciatica COMPARISON: Outside MRI of the lumbar sp ine 06/22/2020. Procedure Note Angel Griffin MD - 10/29/2020Formattin g of this note might be different from the original. XR SPINE COMPLETE SCOLIOSIS TWO VIEWS 3:52 AM HISTORY: Acute bilateral low back pain w ith left-sided sciatica COMPARISON: Outside MRI of the lumbar sp ine 06/22/2020. IMPRESSION: There is posterior spinal fu julian instrumentation again seen extending from L2 through L5. No gr oss findings of hardware loosening or failure identified on the p rovided views. There is diffuse osseous demineralization, limiti ng evaluation for fracture. No gross vertebral body height loss identif ied. Focal levoconvex curvature centered at L1-L2 measuring 40 degrees from the superior endplate of T12 to the inferior endplate of L4. Broad dextroconvex curvature centered at T7 measuring appro ximately 43 degrees from the superior endplate of T5 to the inferior endplate of T11. Exaggerated kyphosis centered at approximately T6-T7 measuring 47 degrees from the superior endplate of T4 to the inferior endplate of T10. Positive sagittal balance. Neutral coronal balanc e. Grade 1 anterolisthesis of L1 on L2 and L4 on L5, as before. Minima l retrolisthesis of L2 on L3. Diffuse moderate to marked multilevel de generative disc disease throughout the thoracic spine and lumbar spine. Multilevel degenerative facet disease. Diffuse athe rosclerotic calcifications of the aortoiliac arteries. Surgical clips in the right upper quadrant of the abdomen, likely related to prior cho lecystectomy. There are a few metallic clips that project over the upp er mid abdomen and the left hip region. Small calcified presumed phl eboliths in the pelvis. Right hip and left glenohumeral joint degenera tive changes. ANGEL GRIFFIN MD Ana Jacobs PA-C [facility] ORDER TRELL documented in this encounter Visit Diagnoses Diagnosis Acute bilateral low back pain with left- sided sciatica documented in this encounter Care Teams Landscaping Specialist Relationship Specialty Start Date End Date Idalmis Sloan PCP - General Family Practice 11/04/13 documented as of this encounter
--- OUTSIDE RECORDS SUMMARY | 2021-11-12 14:47 | XMS_ITS | Encounter Summary ---
:1950 Author Organization [place] Address [facility] [place] [address] Care Team Providers Name Role Phone Idalmis Sloan Primary Care Provider Encounter Details Date Type Department Care Team Description 03/09/2019 Therapy Visit [facility] [place] [place], Lumbar pain (Primary Rehabilitation Services INVESTMENT DIRECTOR Dx) [facility] [address] [facility] [address] [place], [place] [address] Social History Tobacco Use Types Packs/Day Years Used Date Never Smoker Smokeless Tobacco: Never Used Sex Assigned at Date Recorded Not on file documented as of this encounter Plan of Treatment Not on filedocumented as of this encounter Procedures Procedure Name Priority Date/Time Associated Diagnosis Comme nts [facility] THERAPEUTIC Routine 03/09/2019 3:43 PM OFFICE TECHNOLOGY INSTRUCTOR Lumbar pain ACTIVITIES [facility] THERAPEUTIC Routine 03/09/2019 3:43 PM OFFICE TECHNOLOGY INSTRUCTOR Lumbar pain EXERCISES documented in this encounter Visit Diagnoses Diagnosis Lumbar pain - Primary Lumbago documented in this encounter Care Teams Professor Of Architecture Relationship Specialty Start Date End Date Idalmis Sloan PCP - General Family Practice 11/04/13 documented as of this encounter
--- OUTSIDE RECORDS SUMMARY | 2021-11-12 14:47 | XMS_ITS | Encounter Summary ---
:1950 Author Organization [place] Address [address] [place] [address] Care Team Providers Name Role Phone Idalmis Sloan Primary Care Provider Encounter Details Date Type Department Care Team Description 03/09/2019 Travel Social History Tobacco Use Types Packs/Day Years Used Date Never Smoker Smokeless Tobacco: Never Used Sex Assigned at Date Recorded Not on file documented as of this encounter Plan of Treatment Not on filedocumented as of this encounter Visit Diagnoses Not on filedocumented in this encounter Care Teams C D Still Operator Relationship Specialty Start Date End Date Idalmis Sloan PCP - General Family Practice 11/04/13 documented as of this encounter
--- OUTSIDE RECORDS SUMMARY | 2021-11-12 14:47 | XMS_ITS | Encounter Summary ---
:1950 Author Organization [place] Address [address] [place] [address] Care Team Providers Name Role Phone Idalmis Sloan Primary Care Provider Encounter Details Date Type Department Care Team Description 04/06/2019 Travel Social History Tobacco Use Types Packs/Day Years Used Date Never Smoker Smokeless Tobacco: Never Used Sex Assigned at Date Recorded Not on file documented as of this encounter Plan of Treatment Not on filedocumented as of this encounter Visit Diagnoses Not on filedocumented in this encounter Care Teams Voip Network Engineer Relationship Specialty Start Date End Date Idalmis Sloan PCP - General Family Practice 11/04/13 documented as of this encounter
--- OUTSIDE RECORDS SUMMARY | 2021-11-12 14:47 | XMS_ITS | Encounter Summary ---
:1950 Author Organization [place] Address [address] [place] [address] Care Team Providers Name Role Phone Idalmis Sloan Primary Care Provider Reason for Visit [facility] Physical Therapy (Routine) - Closed Specialty Diagnoses / Procedures Referred By Contact Refer red To Contact Order Processing Manager Diagnoses >4 Lefft side hip pain, LBP / Idalmis Sloan [email or web address]@ [email or web address] / bs /referral exists 20V thru 03.01.18(MSG) Idalmis Sloan Linda, PTA / Physical Therapy Procedures SPINE FOLLOW UP [facility] [address] [place] [address] Referral ID Status Reason Start Date Expiration Date Visits Requ ested Visits Authorized [id number] Closed 03/16/2018 03/01/2019 20 18 Encounter Details Date Type Department Care Team Description 03/22/2018 Therapy Visit [facility] Belén Alva, Hip josefina n, left Rehabilitation Services [facility] [place] [address] [facility] [address] [place] [address] Social History Tobacco Use Types Packs/Day Years Used Date Never Smoker Smokeless Tobacco: Never Used Sex Assigned at Date Recorded Not on file documented as of this encounter Progress Notes Belén Alva PTA - 03/22/2018 3:10 PM CST Subjective: HPI Objective: System Physical Exam General ROS Assessment/Plan: DISCHARGE REPORT Progress reporting period is from 02-25-19 to 03-22-18. SUBJECTIVE Subjective changes noted by patient: Patient reports that she was sore after the last visit for a couple of days, but overall is now better. She states that she has been doing her exercises and that she see's how weak she is. Current pain level is . Current Pain level: 610 Previous pain level was: Initial Pain level: 8/10 Changes in function: Yes (See Goal flowsheet attached for changes in current functional level) Changes in function: Yes, see goal flow sheet for change in function Adverse reaction to treatment or activity: None OBJECTIVE Changes noted in objective findings: Patient has failed to return to therapy so current objective findings are unknown. Objective: Varied the Hip abduction from standing and SL. Left hip mobility is making progress with less tightness and strength. Jensen Hernandez, PT - 03/22/2018 3:10 PM CST Subjective: HPI Objective: System Physical Exam General ROS Assessment/Plan: ASSESSMENT/PLAN Updated problem list and treatment plan: Diagnosis 1: Left hip pain Pain - self management, education and home program Decreased ROM/flexibility - therapeutic exercise, therapeutic activity and home program Decreased strength - therapeutic exercise, therapeutic activities and home program Progress toward STG/LTGs have been made: Yes, Assessment of Progress: The patient's condition has potential to improve. Self Management Plans: Patient has been instructed in a home treatment program. I have re-evaluated this patient and find that the nature, scope, duration and intensity of the therapy is appropriate for the medical condition of the patient. Krys continues to require the following intervention to meet STG and LT's: PT Recommendations: Pt has not returned for treatment since 03-22-18. Pt discharged at this time. Please refer to the daily flowsheet for treatment today, total treatment time and time spent performing 1:1 timed codes. documented in this encounter Plan of Treatment Not on filedocumented as of this encounter Procedures Procedure Name Priority Date/Time Associated Diagnosis Comme [facility] THERAPEUTIC Routine 03/23/2018 12:46 PM Hip pain, left EXERCISES WARD NURSE documented in this encounter Visit Diagnoses Diagnosis Hip pain, left Pain in joint, pelvic region and thigh documented in this encounter Care Teams Fryline Attendant Relationship Specialty Start Date End Date Idalmis Sloan PCP - General Family Practice 11/04/13 documented as of this encounter
--- OUTSIDE RECORDS SUMMARY | 2021-11-12 14:47 | XMS_ITS | Encounter Summary ---
:1950 Author Organization [place] Address [address] [place] [address]. [place] [address] Care Team Providers Name Role Phone Idalmis Sloan Primary Care Provider Reason for Visit [facility] Physical Therapy (Routine) - Closed Specialty Diagnoses / Procedures Referred By Contact Refer red To Contact Physical Therapy Diagnoses >4, Back / Mercy Pedro @ [facility] Pain / [employer] Mercy Vasquez, ARTILLERY MAINTENANCE SUPERVISOR Daniel Shi, PT Procedures SPINE INITIAL [facility] PAIN [facility] [address] [place] [address] [place] [address] [place] [address] Referral ID Status Reason Start Date Expiration Date Visits Requ ested Visits Authorized [id number] Closed 07/22/2017 03/01/2018 20 18 Encounter Details Date Type Department Care Team Description 08/14/2017 Therapy Visit [facility] Jensen Hernandez, PT Lumbago (Primary Dx) Rehabilitation Services [id number] [place] [address] DR [facility] [address] [address] [address] [place] [address] (Work) [phone] Social History Tobacco Use Types Packs/Day Years Used Date Never Smoker Smokeless Tobacco: Never Used Sex Assigned at Date Recorded Not on file documented as of this encounter Progress Notes Jensen Hernandez, PT - 08/14/2017 5:20 PM CDT Subjective: HPI Objective: System Physical Exam General ROS Assessment/Plan: SUBJECTIVE Subjective changes as noted by pt: Pt still notes bilateral back pain radiating into the thighs. Pt is not performing glut retraining exercise secondary to pain lying prone Current pain level: 8/10 Changes in function: Pt continues to walk on treadmill and use stationary bike despite pain Adverse reaction to treatment or activity: None OBJECTIVE Changes in objective findings: Pt has tendency to bulge stomach performing transverse abdominals exercise, substituted bridge for glut retraining ASSESSMENT Krys continues to require intervention to meet STG and LTG's: PT Patient is progressing as expected. Response to therapy has shown lack of progress in pain level Progress made towards STG/LTG? None PLAN Current treatment program is being advanced to more complex exercises. MORTGAGE COORDINATOR/ATC plan: N/A Please refer to the daily flowsheet for treatment today, total treatment time and time spent performing 1:1 timed codes. Jensen Hernandez, PT - 08/14/2017 5:20 PM CDT Subjective:SUBJECTIVE Subjective changes as noted by pt: Pt still notes bilateral back pain radiating into the thighs. Pt is not performing glut retraining exercise secondary to pain lying prone Current pain level: 8/10 Changes in function: Pt continues to walk on treadmill and use stationary bike despite pain Adverse reaction to treatment or activity: None ?? OBJECTIVE Changes in objective findings: Pt has tendency to bulge stomach performing transverse abdominals exercise, substituted bridge for glut retraining HPI Objective: System Physical Exam General ROS Assessment/Plan: ASSESSMENT/PLAN Updated problem list and treatment plan: Diagnosis 1: Lumbar pain Pain - hot/cold therapy, self management, education and home program Decreased ROM/flexibility - therapeutic exercise, therapeutic activity and home program Decreased strength - therapeutic exercise, therapeutic activities and home program Progress toward STG/LTGs have been made: Pt demonstrates limited progress towards goals. Assessment of Progress: The patient's condition has potential to improve. Self Management Plans: Patient has been instructed in a home treatment program. I have re-evaluated this patient and find that the nature, scope, duration and intensity of the therapy is appropriate for the medical condition of the patient. Krsy continues to require the following intervention to meet STG and LT's: PT Recommendations: Pt has not returned for treatment since 08-14-17. Pt discharged at this time. Please refer to the daily flowsheet for treatment today, total treatment time and time spent performing 1:1 timed codes. documented in this encounter Plan of Treatment Not on filedocumented as of this encounter Procedures Procedure Name Priority Date/Time Associated Diagnosis Comme nts [facility] NEUROMUSCULAR Routine 08/14/2017 6:01 PM Lumbago RE-EDUCATION CDT [facility] THERAPEUTIC EXERCISES Routine 08/14/2017 6:01 PM Lumbago CDT documented in this encounter Visit Diagnoses Diagnosis Lumbago - Primary documented in this encounter Care Teams Industrial Real Estate Agent Relationship Specialty Start Date End Date Idalmis Sloan PCP - General Family Practice 11/04/13 documented as of this encounter
--- OUTSIDE RECORDS SUMMARY | 2021-11-12 14:47 | XMS_ITS | Encounter Summary ---
:1950 Author Organization [place] Address [address] [place] [address] Care Team Providers Name Role Phone Idalmis Sloan Primary Care Provider Reason for Visit Reason Comments Urgent Care Cough cough and sinus pressure, tr eated for bronchitis Encounter Details Date Type Department Care Team Description 04/05/2017 Office Visit [facility] Laith Oliver Acute maxillary Urgent Care Lacy Craig MD sinusitis, recurrence [address] not specified (Primary [facility] [place], [place] [address] Dx) [id number] Social History Tobacco Use Types Packs/Day Years Used Date Never Smoker Smokeless Tobacco: Never Used Sex Assigned at Date Recorded Not on file documented as of this encounter Last Filed Vital Signs Vital Sign Reading Time Taken Comments Blood Pressure 136/78 04/05/2017 3:01 PM TEST RIDER Pulse 76 04/05/2017 3:01 PM TEST RIDER Temperature 36.9 ??C (98.5 ??F) 04/05/2017 3:01 PM TEST RIDER Respiratory Rate 18 04/05/2017 3:01 PM TEST RIDER Oxygen Saturation 96% 04/05/2017 3:01 PM TEST RIDER Inhaled Oxygen Concentration - - Weight 65.8 kg (145 lb) 04/05/2017 3:01 PM TEST RIDER Height - - Body Mass Index - - documented in this encounter Progress Notes Laith Oliver MD - 04/05/2017 2:45 PM CST Pt came here for sinus pressure, and shortness of breath. Has history of COPD, no fever or chill. Allergies Allergen Reactions ??? Augmentin ??? Lorazepam ??? Morphine ??? Sulfa Drugs No past medical history on file. No current outpatient prescriptions on file prior to visit. No current facility-administered medications on file prior to visit. Social History Substance Use Topics ??? Smoking status: Never Smoker ??? Smokeless tobacco: Never Used ??? Alcohol use Not on file ROS: Consitutional: As above ENT: As above Respiratory: As above OBJECTIVE: BP 136/78 Pulse 76 Temp 98.5 ??F (36.9 ??C) (Oral) Resp 18 Wt 145 lb (65.8 kg) SpO2 96% GENERAL APPEARANCE: healthy, alert and moderate distress EYES: conjunctiva clear EARS:no cerumen. Ear canals no erythema, TM's intact no erythema . NOSE/MOUTH: Nose and mouth is normal, has para nasal sinus tenderness, no erythema or lesions THROAT: no erythema w/ no tonsillar enlargement . Post nasal drip posirive NECK: supple, nontender, no lymphadenopathy RESP: lungs clear to auscultation - no rales, rhonchi or wheezes CV: regular rates and rhythm, normal S1 S2, no murmur noted NEURO: awake, alert No results found for this or any previous visit (from the past 168 hour(s)). ASSESSMENT: ICD-10-CM 1. Acute maxillary sinusitis, recurrence not specified J01.00 cefuroxime (CEFTIN) 500 MG tablet predniSONE (DELTASONE) 20 MG tablet PLAN: Will start Ceftin 500 bid for 10 days. Tylenol and ibuprofen prn for Pain. Will start taper off steroid too If there is COPD exacerbation. Lots of rest and fluids. Follow up in 4-7 days if not better or sooner if getting worse . Laith Oliver MD RIDER documented in this encounter Nursing Notes Ana Ny MA - 04/05/2017 2:45 PM CST Chief Complaint Patient presents with ??? Urgent Care ??? Cough cough and sinus pressure, treated for bronchitis Initial BP 136/78 Pulse 76 Temp 98.5 ??F (36.9 ??C) (Oral) Resp 18 Wt 145 lb (65.8 kg) SpO2 96% There is no height or weight on file to calculate BMI. Medication Reconciliation: ronny Ny EVALUATION MANAGER RIDER documented in this encounter Plan of Treatment Not on filedocumented as of this encounter Visit Diagnoses Diagnosis Acute maxillary sinusitis, recurrence no t specified - Primary documented in this encounter Care Teams Security Escort Relationship Specialty Start Date End Date Idalmis Sloan PCP - General Family Practice 11/04/13 documented as of this encounter
--- OUTSIDE RECORDS SUMMARY | 2021-11-12 14:47 | XMS_ITS | Encounter Summary ---
:1950 Author Organization [place] Address [address] [facility] [place] [address] Care Team Providers Name Role Phone LeviIdalmis stahl Ann Primary Care Provider Reason for Visit Reason Onset Date Comments Outreach 04/14/2017 UC FOLLOW UP - COMPL ETED Encounter Details Date Type Department Care Team Description 04/14/2017 Telephone [facility] Laith Oliver ( FOLLOW UP Urgent Care Lacy Craig MD - COMPLETED) [address] [place], [place], LEELA [phone] Social History Tobacco Use Types Packs/Day Years Used Date Never Smoker Smokeless Tobacco: Never Used Sex Assigned at Date Recorded Not on file documented as of this encounter Miscellaneous Notes Telephone Encounter - Renata Paredes - 04/14/2017 1:25 PM CST Were you satisfied with the wait time to see your provider? YES Do you feel your provider took the time to listen to your concerns? YES Would you recommend our Urgent Care services to others? YES Comments: Appointment scheduled? NO Location? TABLE INSPECTOR documented in this encounter Plan of Treatment Not on filedocumented as of this encounter Visit Diagnoses Not on filedocumented in this encounter Care Teams Digital Manager Relationship Specialty Start Date End Date LeviIdalmis stahl Ann PCP - General Family Practice 11/04/13 documented as of this encounter
--- OUTSIDE RECORDS SUMMARY | 2021-11-12 14:47 | XMS_ITS | Encounter Summary ---
:1950 Author Organization [place] Address [address] [place] [address] Care Team Providers Name Role Phone Idalmis Sloan Primary Care Provider Encounter Details Date Type Department Care Team Description 11/30/2015 Therapy Visit [facility] [place] Saeed PT Sprain of left rotator cuff capsule, sub sequent encounter (Primary Dx); Rehabilitation [facility] Other postprocedural status(V45.89) Services [address] Specialty Care Allen guzman [address] [facility] [address] [address] [place], [place] [address] [address] [place] [address] [phone] Social History Tobacco Use Types Packs/Day Years Used Date Never Assessed Sex Assigned at Date Recorded Not on file documented as of this encounter Plan of Treatment Not on filedocumented as of this encounter Procedures Procedure Name Priority Date/Time Associated Diagnosis Comme nts [facility] NEUROMUSCULAR Routine 12/04/2015 1:24 PM Sprain of left RE-EDUCATION CDT rotator cuff capsule, subsequent encounter [facility] THERAPEUTIC EXERCISES Routine 12/04/2015 1:24 PM Sprain of left CDT rotator cuff capsule, subsequent encounter documented in this encounter Visit Diagnoses Diagnosis Sprain of left rotator cuff capsule, sub sequent encounter - Primary Other postprocedural status(V45.89) Other postprocedural status documented in this encounter Care Teams Minute Clerk For Basic Traffic Relationship Specialty Start Date End Date Idalmis Sloan PCP - General Family Practice 11/04/13 documented as of this encounter
--- OUTSIDE RECORDS SUMMARY | 2021-11-12 14:47 | XMS_ITS | Encounter Summary ---
:1950 Author Organization [facility] Address [facility] [place] [address] Care Team Providers Name Role Phone Idalmis Sloan Primary Care Provider Reason for Referral Diagnostic Imaging XR (Routine) - Closed Specialty Diagnoses / Procedures Referred By Contact Refer red To Contact Diagnoses Acute bilateral low back pain with left-sided sciatica Ana Jacobs PA-C Procedures XR Lumbar Bending Only 2/3 Views [facility] [place] [address] Referral ID Status Reason Start Date Expiration Date Visits Requ ested Visits Authorized [id number] Closed 10/29/2020 10/29/2021 1 1 Diagnostic Imaging XR (Routine) - Closed Specialty Diagnoses / Procedures Referred By Contact Refer red To Contact Diagnoses Acute bilateral low back pain with left-sided sciatica Ana Jacobs PA-C Procedures XR Spine Complete Scoliosis 2 Views [facility] [place] [address] Referral ID Status Reason Start Date Expiration Date Visits Requ ested Visits Authorized [id number] Closed 10/29/2020 10/29/2021 [address] Scan (Routine) - Closed Specialty Diagnoses / Procedures Referred By Contact Refer red To Contact Diagnoses Acute bilateral low back pain with left-sided sciatica Ana Jacobs PA-C Procedures CT Lumbar Spine w/o Contrast [facility] [place] [address] Referral ID Status Reason Start Date Expiration Date Visits Requ ested Visits Authorized [id number] Closed 10/29/2020 10/29/2021 1 1 Reason for Visit Reason Comments Consult Low back pain; L hip pain Neurologic Problem Encounter Details Date Type Department Care Team Description 10/29/2020 Office Visit [facility] [place] [address] [place] [address] Acute bilateral low back pain with left- sided sciatica (Primary Dx); [facility] Neurosurgery Ana Jacobs PA-C [facility] [address] [place] [address] [id number] Lumbar radiculopathy Clinic [place] [id number] [place] [address] [address] [place] [phone] Social History Tobacco Use Types Packs/Day Years Used Date Never Smoker Smokeless Tobacco: Never Used Sex Assigned at Date Recorded Not on file documented as of this encounter Last Filed Vital Signs Vital Sign Reading Time Taken Comments Blood Pressure 127/90 10/29/2020 2:52 PM CDT Pulse 96 10/29/2020 2:52 PM CDT Temperature 36.5 ??C (97.7 ??F) 10/29/2020 2:52 PM CDT Respiratory Rate - - Oxygen Saturation 95% 10/29/2020 2:52 PM CDT Inhaled Oxygen Concentration - - Weight - - Height - - Body Mass Index - - documented in this encounter Patient Instructions Patient InstructionsHiAna khan PA-C - 10/29/2020 2:40 PM CDT - Recommend lumbar CT w/o contrast. You will need to call to schedule. Call [facility] scheduling for your procedure: For scheduling in the [place] ([facility], [facility]) call [phone] or [phone] For scheduling at [facility] ([facility], [facility], [facility]), call [phone] or [phone] For scheduling in the [place] ([facility]) call [phone] or [phone] -Recommend scoliosis films in addition to standing XR neutral/flexion/extension -Recommend following up once all imaging has been obtained to review and go over next Ana Jacobs PA-C [facility] Neurosurgery [address] [place] [id number] documented in this encounter Progress Notes Ana Jacobs PA-C - 10/29/2020 2:40 PM CDT NEUROSURGERY CLINIC CONSULT NOTE DATE OF VISIT: 10/29/2020 SUBJECTIVE: Krys Mosher is a pleasant 70 year old female who presents to the clinic today for consultation on low back pain with left>right radiculopathy. She is referred to the Neurosurgery Clinic with self referral. Pertinent medical history consists of prior L2-L5 fusion with Dr. Souleymane Garcia approximately 5-6 years ago. Today, she reports a 1-2-month history of symptoms. She describes constant, sharp pain that initiates in the low lumbar region and radiates distally in what sounds like the LEFT L1-2 distribution. Thispain is accompanied by paresthesia, numbness and/or perceived weakness in the same distribution. Patient has to walk with assistance due to weakness and ongoing pain in her left hip. Prolonged walking,standing and sitting aggravate the symptoms, while alleviation is obtained by medication and resting. No mechanism of injury such as trauma or a fall is associated with the onset of the pain. There areno bowel or bladder changes. She denies saddle anesthesia. She admits to changes in gait due to pain and weakness left hip. She denies falling episodes. There has been no significant change in her handwriting or hand dexterity. She has participated in conservative therapies to include physical therapy, medications, and steroidinjection administered a few weeks ago into her left hip. None of these modalities have provided anysignificant residential relief. Krys's Sachin had prior back surgery with Dr. Matute with great experience and therefore recommended Krys come here for further evaluation. Current Outpatient Medications: ??? albuterol (PROAIR HFA/PROVENTIL HFA/VENTOLIN HFA) 108 (90 Base) MCG/ACT inhaler, Inhale 2 puffs into the lungs every 4 hours as needed for shortness of breath / dyspnea or wheezing, Disp: , Rfl: ??? Calcium Carbonate-Vitamin D (CALCIUM-CARB 600 + D PO), Take 1 tablet by mouth 2 times daily, Disp: , Rfl: ??? cephALEXin (KEFLEX) 500 MG capsule, Take 1 capsule (500 mg) by mouth 2 times daily, Disp: 14 capsule, Rfl: 0 ??? esomeprazole (NEXIUM) [address] capsule, Take 20 mg by mouth daily Take 30-60 minutes before eating., Disp: , Rfl: ??? furosemide (LASIX) 40 MG tablet, Take 40 mg by mouth 2 times daily Morning, After dinner, Disp: , Rfl: ??? HYDROcodone-acetaminophen (NORCO) 5-325 MG tablet, Take 1 tablet by mouth 3 times daily as needed for severe pain, Disp: , Rfl: ??? LORazepam (ATIVAN) 0.5 MG tablet, Take 1 tablet (0.5 mg) by mouth once for 1 dose, Disp: 1 tablet, Rfl: 0 ??? methadone (DOLOPHINE) 5 MG tablet, Take 5 mg by mouth 2 times daily, Disp: , Rfl: ??? multivitamin w/minerals (THERA-VIT-M) tablet, Take 1 tablet by mouth daily, Disp: , Rfl: ??? potassium chloride ER (MICRO-K) 10 MEQ CR capsule, Take 10 mEq by mouth 3 times daily, Disp: , Rfl: ??? saccharomyces boulardii (FLORASTOR) 250 MG capsule, Take 1 capsule (250 mg) by mouth 2 times daily, Disp: 14 capsule, Rfl: 0 ??? simvastatin (ZOCOR) 20 MG tablet, Take 20 mg by mouth every other day At PM, Disp: , Rfl: ??? simvastatin (ZOCOR) 20 MG tablet, Take 10 mg by mouth every other day At PM, Disp: , Rfl: ??? traZODone (DESYREL) 50 MG tablet, Take 50 mg by mouth nightly as needed for sleep, Disp: , Rfl: Allergies Allergen Reactions ??? Augmentin ??? Lorazepam ??? Morphine ??? Sulfa Drugs History reviewed. No pertinent past medical history. ROS: 10 point review of symptoms are negative other than the symptoms noted above in the HPI. Family History has been reviewed with the patient, there are no pertinent findings to presenting concern. History reviewed. No pertinent surgical history. Social History Tobacco Use ??? Smoking status: Never Smoker ??? Smokeless tobacco: Never Used Substance Use Topics ??? Alcohol use: None ??? Drug use: None OBJECTIVE: BP (!) 127/90 Pulse 96 Temp 97.7 ??F (36.5 ??C) (Oral) SpO2 95% There is no height or weight on file to calculate BMI. Imaging: Lumbar spine MRI w/o contrast reviewed myself as well as with Dr. Matute, patient and . Full radiological report in chart. Imaging was reviewed with with patient today. Exam: CN II-XII grossly intact, alert and appropriate with conversation and following commands. Walks with assistance of wheel chair. Weakness noted with left hip flexion and subsequent limping Cervical spine is non tender to palpation. Sensation intact throughout upper extremities. UE muscle strength Right Left Deltoid 5/5 5/5 Biceps 5/5 5/5 Triceps 5/5 5/5 Hand intrinsics 5/5 5/5 Hand grasp 5/5 5/5 Lumbar spine is non tender to palpation. Decreased sensation right anterior thigh. Remainder of sensation intact to light touch LE muscle strength Right Left Iliopsoas (hip flexion) 5/5 4/5 Quad (knee extension) 5/5 5/5 Hamstring (knee flexion) 5/5 5/5 Gastrocnemius (PF) 5/5 5/5 Tibialis Ant. (DF) 5/5 5/5 Calves are soft and non-tender bilaterally. ASSESSMENT/PLAN: Krys Mosher is a pleasant 70 year old female who presents to the clinic today for consultation on low back pain with left>right radiculopathy. She is referred to the Neurosurgery Clinic with self referral. Pertinent medical history consists of prior L2-L5 fusion with Dr. Souleymane Bonilla [facility] approximately 5-6 years ago. The patient's most recent imaging was reviewed with her today. On exam, she is noted to have decreased left hip strength. She has attempted conservative management without resolution of symptoms. Based on her physical exam, we do feel that it would be in her best interest to obtain a lumbar CT w/o contrast, standing neutral/flex/ext films, scoliosis films to further assess. Once the images havebeen obtained she has agreed to call our office back at [phone] to further discuss possible surgical interventions or other conservative therapies. We would like to see her back in 2-3 weeks time to further discuss possible surgical interventions or other conservative therapies. In the event that patient's symptoms worsen or change we would like to see her sooner. We also discussed signs of a worsening problem that she should seek being evaluated. Respectfully, Ana Jacobs PA-C [facility] Neurosurgery [address] [address] Exam, imaging, and plan reviewed by Dr. Matute. documented in this encounter Nursing Notes German Diaz MA - 10/29/2020 2:40 PM CDT Krys Mosher is a 70 year old female who presents for: Chief Complaint Patient presents with ??? Consult Low back pain; L hip pain ??? Neurologic Problem Initial Vitals: BP (!) 127/90 Pulse 96 Temp 97.7 ??F (36.5 ??C) (Oral) SpO2 95% Estimated bodymass index is 30.25 kg/m?? as calculated from the following: Height as of 11/04/18: 5' (1.524 m). Weight as of 11/04/18: 154 lb 14.4 oz (70.3 kg).. There is no height or weight on file to calculate BSA. BP completed using cuff size: regular Extreme Pain (8) German Moncada. OLEG Diaz documented in this encounter Plan of Treatment Not on filedocumented as of this encounter Results CT Lumbar Spine w/o [...] MR 06/22/2020. TORRES RIVAS MD SYSTEM ID: ??[id number] Narrative 11/09/2020 9:[address] LUMBAR [...] MR 06/22/2020. TORRES RIVAS MD SYSTEM ID: [id number] Ana Jacobs PA-C IMG CT ORDERABLES XR Lumbar Bending Only 2/3 Views (10/29/2020 [...] extension. JULIO CÉSAR HUITRON MD SYSTEM ID: ??[id number] Narrative 10/29/2020 4:29 PM CDT XR LUMBAR [...] extension. JULIO CÉSAR HUITRON MD SYSTEM ID: [id number] Aan Jacobs PA-C IMG DIAGNOSTIC IMAGING ORDER TRELL XR Spine Complete Scoliosis 2 Views (10/29/2020 [...] left glenohumeral joint degenera tive changes. ANGEL RICO MD Narrative 10/29/2020 6:32 PM CDT XR SPINE COMPLETE SCOLIOSIS TWO VIEWS ??10/29/2020 3:52 AM HISTORY: Acute bilateral low back pain w ith left-sided sciatica COMPARISON: Outside MRI of the lumbar sp ine 06/22/2020. Procedure Note Angel Rico MD - 10/29/2020Formattin g of this note [...] left glenohumeral joint degenera tive changes. ANGEL RICO MD Ana Jacobs PA-C [facility] DIAGNOSTIC IMAGING ORDER TRELL documented in this encounter Visit Diagnoses Diagnosis Acute bilateral low back pain with left- sided sciatica - Primary Lumbar radiculopathy Thoracic or lumbosacral neuritis or radi culitis, unspecified Acute bilateral low back pain with left- sided sciatica Acute bilateral low back pain with left- sided sciatica Acute bilateral low back pain with left- sided sciatica documented in this encounter Care Teams Cocoa Powder Mixer Operator Relationship Specialty Start Date End Date Idalmis Sloan PCP - General Family Practice 11/04/13 documented as of this encounter
--- OUTSIDE RECORDS SUMMARY | 2021-11-12 14:47 | XMS_ITS | Encounter Summary ---
:1950 Author Organization [facility] Address [facility] [place] [address] Care Team Providers Name Role Phone Idalmis Sloan Primary Care Provider Encounter Details Date Type Department Care Team Description [facility]2019 [facility] Services [id number] Dx) [address] [address] [address] [place] [address] (Work) [phone] Social History Tobacco Use Types Packs/Day Years Used Date Never Smoker Smokeless Tobacco: Never Used Sex Assigned at Date Recorded Not on file documented as of this encounter Plan of Treatment Not on filedocumented as of this encounter Procedures Procedure Name Priority Date/Time Associated Diagnosis Comme nts [facility] THERAPEUTIC Routine 02/21/2019 6:20 PM SHOE PLANNER Lumbar pain ACTIVITIES [facility] THERAPEUTIC Routine 02/21/2019 6:20 PM SHOE PLANNER Lumbar pain EXERCISES documented in this encounter Visit Diagnoses Diagnosis Lumbar pain - Primary Lumbago documented in this encounter Care Teams Cereal Supervisor Relationship Specialty Start Date End Date Idalmis Sloan PCP - General Family Practice 11/04/13 documented as of this encounter
--- OUTSIDE RECORDS SUMMARY | 2021-11-12 14:47 | XMS_ITS | Encounter Summary ---
:1950 Author Organization [facility] Address [address] [place] [address]. [place] [address] Care Team Providers Name Role Phone Idalmis Sloan Primary Care Provider Reason for Visit [facility] Physical Therapy (Routine) - Closed Specialty Diagnoses / Procedures Referred By Contact Refer red To Contact Physical Therapy Diagnoses >4, Back / Mercy Pedro @ [facility] Pain / BCBS Mercy Vasquez, LENS GRINDER APPRENTICE Daniel Shi, PT Procedures SPINE INITIAL [facility] [address] [place] [address] [place] [address] [place] [address] Referral ID Status Reason Start Date Expiration Date Visits Requ ested Visits Authorized [id number] Closed 07/22/2017 03/01/2018 20 18 Encounter Details Date Type Department Care Team Description 02/25/2018 Therapy Visit [facility] Jensen Hernandez, PT Hip pain, left Rehabilitation Services [address] [address] (Primary Dx) [address] [place] [address] [address] [address] [address] [place] [address] (Work) [phone] Social History Tobacco Use Types Packs/Day Years Used Date Never Smoker Smokeless Tobacco: Never Used Sex Assigned at Date Recorded Not on file documented as of this encounter Progress Notes Jensen Hernandez, PT - 02/25/2018 4:00 PM CST [facility] Initial Evaluation Subjective: History of left hip pain for years with increased symptoms 1 month ago secondary to OA. Pt referred by MD for physical therapy on 02-05-18 The history is provided by the patient. No modern languages professor was used. Krys Mosher is a 67 year old female with a left hip condition. Condition occurred with: Degenerative joint disease. Condition occurred: other. This is a chronic condition Patient reports pain: Posterior and lateral. Radiates to: Gluteals, hip and lower leg. Pain is described as aching and sharp and is constant and reported as 8/10. Associated symptoms: Loss of motion/stiffness, loss of strength, numbness and tingling. Pain is worse during the night. Symptoms are exacerbated by lying on extremity, ascending stairs, descending stairs, sitting, walking and standing and relieved by rest, ice, muscle relaxants and NSAID's. Since onset symptoms are gradually improving (with prednisone). Special tests: X-ray (OA left hip). Previous treatment includes physical therapy. There was moderate improvement following previous treatment. General health as reported by patient is good. Pertinent medical history includes: Asthma, history of fractures, osteoporosis, osteoarthritis andthyroid problems. Medical allergies: yes (augmentin, morphine, lorazepam). Other surgeries include: Orthopedic surgery and other (back surgery x 3, T+A, fundoplasty, cholesytstectomy, skin graph, rightfoot reconstruction ). Current medications: Anti-inflammatory, meds to increase bone density, muscle relaxants, sleep medication and steroids. Employment status: retired. Barriers include: None as reported by the patient. Red flags: None as reported by the patient. Objective: Flexibility/Screens: Lower Extremity: Decreased left lower extremity flexibility:IT Band and Hamstrings Lumbar/SI Evaluation ROM: AROM Lumbar: Flexion: Min loss Ext: Mod loss Side Bend: Left: Mod loss ++ Right: Min loss+ Rotation: Left: Right: Side Riner: Left: Right: Strength: weak lower abdominals and pelvic stabilizers Hip Evaluation HIP AROM: Flexion: Left: 95 Right: Abduction: Left: 15 Right: Hip PROM: Flexion: Left: 105 Right: Abduction: Left: 25 Right: Hip Strength: Flexion: Left: 4/5 Pain: Extension: Left: 4+/5 Pain: Abduction: Left: 4-/5 Pain:weak/painful Adduction: Left: 5/5 Pain:weak/painful Internal Rotation: Left: 4/5 Pain: External Rotation: Left: 4-/5 Pain: Hip Special Testing: Left hip positive for the following special tests: Rafal's and Reggie Hip Palpation: Palpations normal left hip: point tenderness L4,L5 spinous processes. Left hip tenderness present at: Greater Trachanter and IT Band General ROS Assessment/Plan: Patient is a 67 year old female with left side hip complaints. Patient has the following significant findings with corresponding treatment plan. Diagnosis 1: Left hip pain/ OA Pain - hot/cold therapy, manual therapy, self management, education and home program Decreased ROM/flexibility - manual therapy, therapeutic exercise, therapeutic activity and home program Decreased strength - therapeutic exercise, therapeutic activities and home program Therapy Evaluation Codes: 1) History comprised of: Personal factors that impact the plan of care: Past/current experiences and Time since onset of symptoms. Comorbidity factors that impact the plan of care are: Asthma, Osteoarthritis, Pain at night/rest, Weakness and thyroid, osteoporosis. Medications impacting care: Anti-inflammatory, Bone density, Muscle relaxant, Pain, Steroids and Sleep. 2) Examination of Body Systems comprised of: Body structures and functions that impact the plan of care: Hip and Lumbar spine. Activity limitations that impact the plan of care are: Bathing, Bending, Lifting, Sitting, Stairs, Standing, Walking, Sleeping and Laying down. 3) Clinical presentation characteristics are: Evolving/Changing. 4) Decision-Making Moderate complexity using standardized patient assessment instrument and/or measureable assessment of functional outcome. Cumulative Therapy Evaluation is: Moderate complexity. Previous and current functional limitations: (See Goal Flow Sheet for this information) Short term and USP goals: (See Goal Flow Sheet for this [...] 1 X week, once daily Duration: for 6 weeks Discharge Plan: Achieve all LTG. Independent in home treatment program. Reach maximal therapeutic benefit. Please refer to the daily flowsheet for treatment today, total treatment time and time spent performing 1:1 timed codes. TY EQUIPMENT TESTER documented in this encounter Plan of Treatment Not on filedocumented as of this encounter Procedures Procedure Name Priority Date/Time Associated Diagnosis Comme [facility] THERAPEUTIC Routine 02/25/2018 5:05 PM SAFETY EQUIPMENT TESTER Hip pain, left EXERCISES documented in this encounter Visit Diagnoses Diagnosis Hip pain, left - Primary Pain in joint, pelvic region and thigh documented in this encounter Care Teams Wheat Cleaner Relationship Specialty Start Date End Date Idalmis Sloan PCP - General Family Practice 11/04/13 documented as of this encounter
--- OUTSIDE RECORDS SUMMARY | 2021-11-12 14:47 | XMS_ITS | Encounter Summary ---
:1950 Author Organization [facility] Address [address] [facility] [place] [address] Care Team Providers Name Role Phone Idalmis Sloan Primary Care Provider Reason for Visit [facility] Physical Therapy (Routine) - Closed Specialty Diagnoses / Procedures Referred By Contact Refer red To Contact Guitar Player Diagnoses >4 Lefft side hip pain, LBP / Idalmis Sloan MD@ [place] / bs /referral exists 20V thru 03.01.18(MSG) Idalmis Sloan Linda, PTA / Physical Therapy Procedures SPINE FOLLOW UP [facility] [address] [place] [address] Referral ID Status Reason Start Date Expiration Date Visits Requ ested Visits Authorized [id number] Closed 03/16/2018 03/01/2019 20 18 Encounter Details Date Type Department Care Team Description 03/16/2018 Therapy Visit [facility] [place], Hip josefina n, left Rehabilitation Services [facility] [address] [facility] [address] [place] [address] Social History Tobacco Use Types Packs/Day Years Used Date Never Smoker Smokeless Tobacco: Never Used Sex Assigned at Date Recorded Not on file documented as of this encounter Plan of Treatment Not on filedocumented as of this encounter Procedures Procedure Name Priority Date/Time Associated Diagnosis Comme [facility] THERAPEUTIC Routine 03/17/2018 7:48 AM STIFF STRAW HAT WASHER Hip pain, left EXERCISES documented in this encounter Visit Diagnoses Diagnosis Hip pain, left Pain in joint, pelvic region and thigh documented in this encounter Care Teams Assistant Prosecuting Attorney Relationship Specialty Start Date End Date Idalmis Sloan PCP - General Family Practice 11/04/13 documented as of this encounter
--- OUTSIDE RECORDS SUMMARY | 2021-11-12 14:47 | XMS_ITS | Encounter Summary ---
:1950 Author Organization [facility] Address [address] [place] [address] Care Team Providers Name Role Phone Idalmis Sloan Primary Care Provider Encounter Details Date Type Department Care Team Description 03/16/2019 Travel Social History Tobacco Use Types Packs/Day Years Used Date Never Smoker Smokeless Tobacco: Never Used Sex Assigned at Date Recorded Not on file documented as of this encounter Plan of Treatment Not on filedocumented as of this encounter Visit Diagnoses Not on filedocumented in this encounter Care Teams Energy Engineer Relationship Specialty Start Date End Date Idalmis Sloan PCP - General Family Practice 11/04/13 documented as of this encounter
--- OUTSIDE RECORDS SUMMARY | 2021-11-12 14:47 | XMS_ITS | Encounter Summary ---
:1950 Author Organization [place] Address [facility] [place] [address] Care Team Providers Name Role Phone LeviIdalmis stahl Primary Care Provider Ana Jacobs PA-C Unavailable Encounter Details Date Type Department Care Team Description 11/08/2020 Travel Social History Tobacco Use Types Packs/Day [...] on filedocumented in this encounter Care Teams Autopsy Pathologist Relationship Specialty Start Date End Date Idalmis Sloan PCP - General Family Practice 11/04/13 Ana Jacobs PA-C Assigned Neuroscience 11/04/20 12/01/20 [facility] Provider [address] [address] documented as of this encounter
--- OUTSIDE RECORDS SUMMARY | 2021-11-12 14:47 | XMS_ITS | Encounter Summary ---
:1950 Author Organization [place] Address [facility] [place] [address] Care Team Providers Name Role Phone Idalmis Sloan Primary Care Provider Encounter Details Date Type Department Care Team Description 02/16/2019 Therapy Visit [facility] Jensen Hernandez, PT Lumbar pain Rehabilitation Services [id number] [facility] [place] [address] [place] [address] Social History Tobacco Use Types Packs/Day Years Used Date Never Smoker Smokeless Tobacco: Never Used Sex Assigned at Date Recorded Not on file documented as of this encounter Progress Notes Jensen Hernandez, PT - 02/16/2019 3:20 PM CST [facility] Initial Evaluation Subjective: History of lumbar pain for years which has included 3 previous surgeries to her lower back. Pt can'trecall the dates of her surgeries. Pt noted pain of unknown etiology approximately 6 -8 weeks ago. Pt referred by MD for physical therapy on 12-29-18 The history is provided by the patient. No credit risk review officer was used. Type of problem: Lumbar Condition occurred with: Insidious onset. This is a chronic condition Problem details: Pt rates pain as a 9/10. Patient reports pain: Lumbar spine right and lumbar spine left. Radiates to: Gluteals left and gluteals right. Associated symptoms: Loss of motion/stiffness, loss of strength and numbness. Symptoms are exacerbated by bending, twisting, carrying, lifting, sitting, walking and standing and relieved by ice, rest, muscle relaxants and analgesics. Objective: Standing Alignment: Lumbar deviations alignment: decreased lumbar lordosis. Flexibility/Screens: Lower Extremity: Decreased left lower extremity flexibility:Hamstrings Decreased right lower extremity flexibility: Hamstrings Spine: Decreased left spine flexibility: Quadratus Lumborum Decreased right spine flexibility: Quadratus Lumborum Lumbar/SI Evaluation ROM: AROM Lumbar: Flexion: Moderate loss Ext: Max loss Side Bend: Left: Moderate loss Right: Moderate loss Rotation: Left: Moderate loss Right: Moderate loss Side Randolph: Left: Right: Strength: weak lower abdominals and pelvic stabilizers Lumbar Palpation: Palpation (lumbar): point tenderness L2-L5 spinous processes and adjacent lumbar paraspinals. General ROS Assessment/Plan: Patient is a 68 year old female with lumbar complaints. Patient has the following significant findings with corresponding treatment plan. Diagnosis 1: Lumbar pain Pain - hot/cold therapy, manual therapy, self management, education and home program Decreased ROM/flexibility - manual therapy, therapeutic exercise, therapeutic activity and home program Decreased strength - therapeutic exercise, therapeutic activities and home program Therapy Evaluation Codes: 1) History comprised of: Personal factors that impact the plan of care: Time since onset of symptoms. Comorbidity factors that impact the plan of care are: Asthma, Menopausal, Pain at night/rest, Weakness and osteoporosis. Medications impacting care: Bone density, Muscle relaxant, Pain and Sleep. 2) Examination of Body Systems comprised of: Body structures and functions that impact the plan of care: Lumbar spine. Activity limitations that impact the plan of care are: Bathing, Bending, Dressing, Lifting, Sitting, Standing and Walking. 3) Clinical presentation characteristics are: Stable/Uncomplicated. 4) Decision-Making Low complexity using standardized patient assessment instrument and/or measureable assessment of functional outcome. Cumulative Therapy Evaluation is: Low complexity. Previous and current functional limitations: (See Goal Flow Sheet for this information) Short term and longterm goals: (See Goal Flow Sheet for this [...] and time spent performing 1:1 timed codes. HOTYPE OPERATOR documented in this encounter Plan of Treatment Not on filedocumented as of this encounter Procedures Procedure Name Priority Date/Time Associated Diagnosis Comme [facility] Z THERAPEUTIC Routine 02/16/2019 6:42 PM GRAPHOTYPE OPERATOR Lumbar pain EXERCISES documented in this encounter Visit Diagnoses Diagnosis Lumbar pain Lumbago documented in this encounter Care Teams Sludge Control Attendant Relationship Specialty Start Date End Date Idalmis Sloan PCP - General Family Practice 11/04/13 documented as of this encounter
--- OUTSIDE RECORDS SUMMARY | 2021-11-12 14:47 | XMS_ITS | Encounter Summary ---
:1950 Author Organization [place] Address [address] [place] [id number] Care Team Providers Name Role Phone Idalmis Sloan Primary Care Provider Encounter Details Date Type Department Care Team Description 02/21/2019 Travel Social History Tobacco Use Types Packs/Day Years Used Date Never Smoker Smokeless Tobacco: Never Used Sex Assigned at Date Recorded Not on file documented as of this encounter Plan of Treatment Not on filedocumented as of this encounter Visit Diagnoses Not on filedocumented in this encounter Care Teams Kettleman Relationship Specialty Start Date End Date Idalmis Sloan PCP - General Family Practice 11/04/13 documented as of this encounter
--- OUTSIDE RECORDS SUMMARY | 2021-11-12 14:47 | XMS_ITS | Encounter Summary ---
:1950 Author Organization [place] Address [address] [facility] [place] [address] Care Team Providers Name Role Phone Idalmis Sloan Primary Care Provider Encounter Details Date Type Department Care Team Description 04/14/2019 Therapy Visit [facility] Belén Alva, Lumbar pain (Primary Rehabilitation Services YARDING SUPERVISOR Dx) [facility] [address] [facility] [address] [place], [place] [id number] Social History Tobacco Use Types Packs/Day Years Used Date Never Smoker Smokeless Tobacco: Never Used Sex Assigned at Date Recorded Not on file documented as of this encounter Progress Notes Belén Alva PTA - 04/14/2019 2:30 PM CST Subjective: HPI Physical Exam Oswestry Score: 36 % Objective: System Physical Exam General ROS Assessment/Plan: DISCHARGE REPORT Progress reporting period is from 02/19/19 to 04/14/19. SUBJECTIVE Subjective changes noted by patient: Patient reports that she walks on the TM now for 20-25 min's. She states that she was able to cancel her injections since she feels better. . Current pain level is 4/10 Previous pain level was: Initial Pain level: 9/10 Changes in function: Yes (See Goal flowsheet attached for changes in current functional level) Adverse reaction to treatment or activity: None OBJECTIVE Changes noted in objective findings: Yes, patient made great progress more than she has in the past.She was able to completet her visits and followed through with her HEP. Her NICHOLAS and John scores improved. Did not perform ROM in the low back as this might increase back pain. Functionally has improved. CTOR SUPPLY CHAIN Adiel Ramirez - 04/14/2019 2:30 PM CST Assessment/Plan: ASSESSMENT/PLAN Updated problem list and treatment plan: Diagnosis 1: Lumbar pain STG/LTGs have been met: Yes (See Goal flow sheet completed today.) Progress toward STG/LTGs have been made: Yes (See Goal flow sheet completed today.) Assessment of Progress: The patient's condition is improving. The patient's condition has potential to improve. Self Management Plans: Patient is independent in a home treatment program. Patient is independent in self management of symptoms. Patient continues to require the following intervention to meet STG and LT's: PT intervention is no longer required to meet STG/LTG. Recommendations: This patient is ready to be discharged from therapy and continue their home treatment program. Please refer to the daily flowsheet for treatment today, total treatment time and time spent performing 1:1 timed codes. CTOR SUPPLY CHAIN documented in this encounter Miscellaneous Notes Addendum Note - Adiel Ramirez - 04/14/2019 2:30 PM DIRECTOR SUPPLY CHAIN Addended by: ADIEL RAMIREZ on: 04/15/2019 11:09 AM Modules accepted: Orders CTOR SUPPLY CHAIN documented in this encounter Plan of Treatment Not on filedocumented as of this encounter Procedures Procedure Name Priority Date/Time Associated Diagnosis Comme [facility] THERAPEUTIC Routine 04/15/2019 10:52 AM Lumbar pain ACTIVITIES DIRECTOR SUPPLY CHAIN documented in this encounter Visit Diagnoses Diagnosis Lumbar pain - Primary Lumbago documented in this encounter Care Teams Reference Test Clerk Relationship Specialty Start Date End Date Idalmis Sloan PCP - General Family Practice 11/04/13 documented as of this encounter
--- OUTSIDE RECORDS SUMMARY | 2021-11-12 14:47 | XMS_ITS | Encounter Summary ---
:1950 Author Organization [place] Address [facility] [place] [address] Care Team Providers Name Role Phone Idalmis Sloan Primary Care Provider Ana Jacobs PA-C Unavailable Reason for Referral Diagnostic Imaging XR (Routine) - Pending Review Specialty Diagnoses / Procedures Referred By Contact Refer red To Contact Diagnoses Acute bilateral low back pain with left-sided sciatica Lumbar radiculopathy Madhav Matute MD Procedures XR Lumbar Epidural Injection Incl Imaging [address] [facility] [address] [place] [address] Referral ID Status Reason Start Date Expiration Date Visits V isits Requested Authorized [id number] Pending 11/19/2020 11/19/2021 1 1 Review Reason for Visit Reason Comments RECHECK Lumbar Encounter Details Date Type Department Care Team Description 11/19/2020 Office Visit [facility] Madhav Melton Acute darrell ateral low back pain with left-sided sciatica (Primary Dx); [facility] Neurosurgery MD Cordell Lumbar radiculopathy [facility] [place] [address] [facility] [address] [address] [facility] [address] [place] [phone] Social History Tobacco Use Types Packs/Day Years [...] Sign Reading Time Taken Comments Blood Pressure 110/72 11/19/2020 3:26 PM CDT Pulse 78 11/19/2020 3:26 PM CDT Temperature - - Respiratory Rate - - Oxygen Saturation 99% 11/19/2020 3:26 PM CDT Inhaled Oxygen Concentration - - Weight - - Height - - Body Mass Index - - documented in this encounter Patient Instructions Patient InstructionsLizette Tomlin RN - 11/19/2020 3:20 PM CDT Patient Next Steps: ??? Order placed for epidural steroid injection o The steroid can take 10-14 days to reach max effect o Please call our clinic if symptoms persist after this timeframe. o You can call [facility] ([facility]) to schedule your injection at [phone] ??? We will work on obtaining your DEXA scan results for Dr. Matute to review. ??? Dr. Matute would like to see you back in the clinic for follow up one month after your injection. Please call the number below to schedule. Please call us if you have any further questions or concerns. [facility] documented in this encounter Progress Notes Madhav Matute MD - 11/19/2020 3:20 PM CDT It was a pleasure to see Krys Mosher today in Neurosurgery Clinic. She is a 70 year old female whowas recently seen by Ana Jacobs PA-C in our clinic. She has a history of previous lumbar spinal fusion by Dr. Comer from L2-L5 in approximately 2011. Over the last 6 months ago she is started having worsening pain particularly on the left side that radiates from the back to the hip and down into the leg along the lateral aspect. She also has back pain along her gluteal region and tailbone. Walking make her symptoms worse prickly on the left. She has a history of neuropathy as well. She describes an injection into the bursa on the left which was not very helpful. There were no vitals filed for this visit. There is no height or weight on file to calculate BMI. Extreme Pain (9) Awake alert and oriented. Bilateral lower extremity strength 5 out of 5 in all muscle groups. Reflexes symmetric and normal. Sensation intact to pinprick. Well-healed lumbar incision without pain to palpation. Imaging: She appears to have some kyphotic deformity with a coronal deformity to the left in the lumbar spine into the right and the thoracic spine. CT of the lumbar spine demonstrates solid fusion from L2-5. Her MRI of the lumbar spine shows right-sided L1-2 stenosis. There may also be some's foraminal stenosis at L5-S1 that might explain some of her symptoms. 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 Plan: I would like her to get an epidural steroid injection. We will also obtain records of a recentDEXA scan to evaluate her bone density to see whether it is appropriate to even consider surgery forher. We did briefly discuss that correction of her deformity would likely require significant intervention from the pelvis to the lower thoracic spine. We will see her back when she is done with her epidural steroid injection. I spent a total of 54 minutes on the day of the visit. Time spent doing chart review, history and exam, documentation and further activities per the note documented in this encounter Nursing Notes German Diaz MA - 11/19/2020 3:20 PM CDT Krys Mosher is a 70 year old female who presents for: Chief Complaint Patient presents with ??? RECHECK Lumbar Initial Vitals: BP 110/72 Pulse 78 SpO2 99% Estimated body mass index is 30.25 kg/m?? as calculated from the following: Height as of 11/04/18: 5' (1.524 m). Weight as of 11/04/18: 154 lb 14.4 oz (70.3 kg).. There is no height or weight on file to calculate BSA. BP completed using cuff size: regular Extreme Pain (9) German Diaz MA Lizette Tomlin, RN - 11/19/2020 3:20 PM CDT Faxed Injection order to [facility]ie November 19, 2020 to fax number [phone] Right Fax confirmed at 1615 PM documented in this encounter Plan of Treatment Scheduled Orders Name Type Priority Associated Diagnoses Order S chedule XR Lumbar Epidural Imaging Routine Acute bilateral low ba ck Expected: 11/19/2020 Injection Incl Imaging pain with left-jose ed (Approximate), sciatica Expires: 11/19/2021 Lumbar radiculopathy documented as of this encounter Visit Diagnoses Diagnosis Acute bilateral low back pain with left- sided sciatica - Primary Lumbar radiculopathy Thoracic or lumbosacral neuritis or radi culitis, unspecified documented in this encounter Care Teams Marketing Coordinator Relationship Specialty Start Date End Date Idalmis Sloan PCP - General Family Practice 11/04/13 Ana Jacobs PA-C Assigned Neuroscience 11/04/20 12/01/20 [facility] Provider [address] [address] documented as of this encounter
--- OUTSIDE RECORDS SUMMARY | 2021-11-12 14:47 | XMS_ITS | Encounter Summary ---
:1950 Author Organization [place] Address [address] [place] [address] Care Team Providers Name Role Phone Idalmis Sloan Primary Care Provider Encounter Details Date Type Department Care Team Description 11/22/2015 Therapy Visit [facility] Sandra Shelton, Sprain of left rotator cuff capsule, subsequent encounter (Primary Dx); Rehabilitation ATC Other postprocedural status(V45.89) Services [facility] Specialty [facility] [id number] [place] [id number] [place] [address] [address] [place] [address] [phone] Social History Tobacco Use Types Packs/Day Years Used Date Never Assessed Sex Assigned at Date Recorded Not on file documented as of this encounter Plan of Treatment Not on filedocumented as of this encounter Procedures Procedure Name Priority Date/Time Associated Diagnosis Comme nts [facility] NEUROMUSCULAR Routine 11/22/2015 4:54 PM Sprain of left ro tator RE-EDUCATION CDT cuff capsule, subsequent encounter Other postprocedural status(V45.89) [facility] THERAPEUTIC Routine 11/22/2015 4:54 PM Sprain of left rota tor EXERCISES CDT cuff capsule, subsequent encounter Other postprocedural status(V45.89) [facility] HOT OR COLD PACKS Routine 11/22/2015 4:54 PM Sprain of lef t rotator THERAPY CDT cuff capsule, subsequent encounter Other postprocedural status(V45.89) documented in this encounter Visit Diagnoses Diagnosis Sprain of left rotator cuff capsule, sub sequent encounter - Primary Other postprocedural status(V45.89) Other postprocedural status documented in this encounter Care Teams Child Development Associate Teacher Relationship Specialty Start Date End Date Idalmis Sloan PCP - General Family Practice 11/04/13 documented as of this encounter
--- OUTSIDE RECORDS SUMMARY | 2021-11-12 14:47 | XMS_ITS | Encounter Summary ---
:1950 Author Organization [place] Address [facility] [place] [address] Care Team Providers Name Role Phone Idalmis Sloan Primary Care Provider Encounter Details Date Type Department Care Team Description 04/06/2019 [facility] (Primary Rehabilitation Services [address] Dx) [address] [address] [address] [place] [address] (Work) [phone] Social History Tobacco Use Types Packs/Day Years Used Date Never Smoker Smokeless Tobacco: Never Used Sex Assigned at Date Recorded Not on file documented as of this encounter Plan of Treatment Not on filedocumented as of this encounter Procedures Procedure Name Priority Date/Time Associated Diagnosis Comme [facility] THERAPEUTIC Routine 04/06/2019 3:49 PM FUR CLEANER Lumbar pain EXERCISES documented in this encounter Visit Diagnoses Diagnosis Lumbar pain - Primary Lumbago documented in this encounter Care Teams Edge Molder Relationship Specialty Start Date End Date Idalmis Sloan PCP - General Family Practice 11/04/13 documented as of this encounter
--- OUTSIDE RECORDS SUMMARY | 2021-11-12 14:47 | XMS_ITS | Encounter Summary ---
:1950 Author Organization [place] Address [address] [place] [address]. [place] [address] Care Team Providers Name Role Phone Idalmis Sloan Primary Care Provider Reason for Visit [facility] Physical Therapy (Routine) - Closed Specialty Diagnoses / Procedures Referred By Contact Refer red To Contact Physical Therapy Diagnoses >4, Back / Mercy Pedro @ [facility] Pain / BC[facility] Mercy Vasquez, FORENSIC INVESTIGATOR Daniel Shi, PT Procedures [facility] [address] [place] [address] [place] [address] [place] [address] Referral ID Status Reason Start Date Expiration Date Visits Requ ested Visits Authorized [id number] Closed 07/22/2017 03/01/2018 20 18 Encounter Details Date Type Department Care Team Description 02/16/2018 [facility] Rehabilitation Services [address] [facility] [id number] [place] [address] [address] [address] [address] [place] [address] (Work) [phone] Social History Tobacco Use Types Packs/Day Years Used Date Never Smoker Smokeless Tobacco: Never Used Sex Assigned at Date Recorded Not on file documented as of this encounter Plan of Treatment Not on filedocumented as of this encounter Visit Diagnoses Not on filedocumented in this encounter Care Teams Kitchen Porter Relationship Specialty Start Date End Date Idalmis Sloan PCP - General Family Practice 11/04/13 documented as of this encounter
--- OUTSIDE RECORDS SUMMARY | 2021-11-12 14:47 | XMS_ITS | Encounter Summary ---
:1950 Author Organization [place] Address [address] [place] [address] Care Team Providers Name Role Phone Idalmis Sloan Primary Care Provider Encounter Details Date Type Department Care Team Description 03/16/2018 Travel Social History Tobacco Use Types Packs/Day Years Used Date Never Smoker Smokeless Tobacco: Never Used Sex Assigned at Date Recorded Not on file documented as of this encounter Plan of Treatment Not on filedocumented as of this encounter Visit Diagnoses Not on filedocumented in this encounter Care Teams Health Coach Relationship Specialty Start Date End Date Idalmis Sloan PCP - General Family Practice 11/04/13 documented as of this encounter
--- OUTSIDE RECORDS SUMMARY | 2021-11-12 14:48 | XMS_ITS | Encounter Summary ---
:1950 Author Organization [facility] Address [address] [place] [id number] Care Team Providers Name Role Phone Unavailable Primary Care Provider Unavailable Reason for Visit Reason Onset Date Comments Nurse Advice Line 08/02/2012 Encounter Details Date Type Department Care Team Description 08/02/2012 Telephone [facility]PT FOR [facility] None Nurse Ad vice Line Social History Tobacco Use Types Packs/Day Years Used Date Never Assessed Sex Assigned at Date Recorded Not on file documented as of this encounter Miscellaneous Notes Telephone Encounter - Waleska Alcaraz - 08/02/2012 4:30 PM CDT [facility] Triage Call Report Patient Name: Krys Mosher Call Date & Time: 07/31/2012 2:40:00PM Patient PCP Name: Idalmis Sloan Patient Address: [address] [place] [address] Patient Date of : 1950 Age: 62 yr. Patient Gender: Female Brand Sales Manager Name: Viji Aguilar Presenting Problem: Call FNA responding to call fronting message . Pt goes to of decompression and laminectomy back surgery on 07/16/12 and kidney infection in the past . Taking AB Keflex for UTI since 07/29/12 , still having burning with urination , frequency and urgency and voiding small amount at a time , but no fever or blood in urine , bladder pressure and has on- going back pain fromsurgery . Advised to call back if problems, to check on culture and sensitivities . Paged Dr Severino Catalan to Pt 's phone [phone]. Allergies Cipro, augmentin , sulfa and Lorazepam. [facility] phone [phone]. Triage Note: Guideline Title: Infection On Antibiotic Follow-up Call (Pediatric) Urinary Tract Infection Follow-Up Call (Pediatric) Recommended Disposition: Override Disposition: See Provider within 4 hours Question Response Question Note [1] Difficulty breathing AND [2] severe (struggling for No each breath, unable to speak or cry, grunting sounds, severe retractions) Sounds like a life-threatening emergency to the triager No [1] Ear infection AND [2] taking an antibiotic No [1] Sinus infection AND [2] taking an antibiotic No [1] Strep throat AND [2] taking an antibiotic No [1] Urinary tract infection AND [2] taking an antibiotic Yes Shock suspected (very weak, limp, not moving, too weak to No stand, pale cool skin) Sounds like a life-threatening emergency to the triager No [1] Pain or burning with urination, but not taking No antibiotics for UTI AND [2] female [1] Pain or burning with urination, but not taking No antibiotics for UTI AND [2] male [1] Can't pass urine or can only pass a few drops AND [2] bladder feels very full No (e.g., strong urge to urinate) Passing pure blood or large blood clots (size > a dime) No (EXCEPTION: flecks, small strands, or pinkish-red color) [1] Shaking chills from fever AND [2] present > 30 No minutes [1] Fever > 105 F (40.6 C) by any route OR axillary > 104 No F (40 C) AND [2] took antibiotic > 24 hours Child sounds very sick or weak to the triager No [1] SEVERE pain (e.g., excruciating) AND [2] no No improvement 2 hours after pain medications [1] Fever AND [2] new onset since starting antibiotics No (EXCEPTION: on prophylactic antibiotics for UTI prevention) [1] Side (flank) or lower back pain AND [2] new onset No since starting antibiotics [1] Abdominal or low back pain AND [2] constant AND [3] Yes worse than when started antibiotics Physician Contacted: Physician Instructions: No Care Advice: - CALL BACK IF: - Your child becomes worse - SEE PHYSICIAN WITHIN 4 HOURS Your child needs to be examined within the next 3 or 4 hours. Go to (ED/UCC or office if it will be open) Go sooner if your child becomes worse. MEDICAL HISTORY Conditions: Condition Note: .Other Edema Osteoporosis High Cholesterol Reflux Medication: Medication Note: .Other - RX Med, not on list Potassium, Furosemide,omeprazole, Ca w Vit D, MVI, Fosomax, Nasal spray for allergies, Allergy: Reaction: .Other .Other Augmentin Hives Cipro Hives Sulfa Hives Procedure: Procedure Note: .Other right foot surgery 2006 .Other decompression and laminectomy back surgery on 07/16/12 documented in this encounter Plan of Treatment Not on filedocumented as of this encounter Visit Diagnoses Not on filedocumented in this encounter
--- OUTSIDE RECORDS SUMMARY | 2021-11-12 14:48 | XMS_ITS | Encounter Summary ---
:1950 Author Organization [facility] Address [address] [place] [address] Care Team Providers Name Role Phone Idalmis Sloan Primary Care Provider Encounter Details Date Type Department Care Team Description 11/04/2013 Hospital Encounter [facility] Jermaine Paz Ulceration (H) [facility] MD Chuck [address] [place] [facility] [id number] [phone] [place] [address] (Wo rk) Social History Tobacco Use Types Packs/Day Years Used Date Never Assessed Sex Assigned at Date Recorded Not on file documented as of this encounter Plan of Treatment Not on filedocumented as of this encounter Procedures Procedure Name Priority Date/Time Associated Diagnosis Comme nts US SARAH DOPPLER NO Routine 11/04/2013 11:00 AM Ulceration (H) R esults for this EXERCISE, 1-2 CDT procedure are in LEVELS,?? BILAT the results section. documented in this encounter Results US SARAH Doppler No Exercise (11/04/2013 11:00 AM CDT) Anatomical Region Laterality Modality Extremity Ultrasound Specimen (Source) Anatomical Location Collection Method / Collectio n Time Received Time / Laterality Volume Impressions 11/05/2013 7:29 AM CDT IMPRESSION: Normal resting ankle-brachial indices and normal triphasic pedal waveforms bilaterally. THANH DEE MD Narrative 11/05/2013 7:29 AM CDT ULTRASOUND SARAH DOPPLER NO EXERCISE ??11/04/2013 11:00 AM HISTORY: ??Infected right fourth toe. FINDINGS: The pedal waveforms are tripha sic bilaterally. Resting ankle-brachial indices are normal bilate rally at 1.05 on the right and 1.14 on the left. An exercise study was not performed. Procedure Note Thanh Dee MD - 11/05/2013Formatti ng of this note might be different from the original. ULTRASOUND SARAH DOPPLER NO EXERCISE 014 11:00 AM HISTORY: Infected right fourth toe. FINDINGS: The pedal waveforms are tripha sic bilaterally. Resting ankle-brachial indices are normal bilate rally at 1.05 on the right and 1.14 on the left. An exercise study was not performed. IMPRESSION IMPRESSION: Normal resting ankle-brachia l indices and normal triphasic pedal waveforms bilaterally. THANH DEE MD Jermaine Paz MD IMG US ORDERABLES documented in this encounter Visit Diagnoses Diagnosis Ulceration Chronic ulcer of unspecified site documented in this encounter Care Teams Mine Superintendent Relationship Specialty Start Date End Date Idalmis Sloan PCP - General Family Practice 11/04/13 documented as of this encounter
--- OUTSIDE RECORDS SUMMARY | 2021-11-12 14:48 | XMS_ITS | Encounter Summary ---
:1950 Author Organization [facility] Address [address] [facility] [place] [address] Care Team Providers Name Role Phone Idalmis Sloan Primary Care Provider Encounter Details Date Type Department Care Team Description 07/20/2014 Therapy Visit [facility] Cherelle Santana Midli ne low back Rehabilitation Services PT pain with [facility] right- sided sciatica [facility] (Primary Dx) [address] [place] [address] [place], [place] [phone] [address] Social History Tobacco Use Types Packs/Day Years Used Date Never Assessed Sex Assigned at Date Recorded Not on file documented as of this encounter Progress Notes Cherelle Santana, PT - 07/20/2014 4:31 PM CDT Subjective: Referred to therapy on 07/12/14. Pain resolved after last back surgery in 2012. Started to return about a year ago. Pain starts in lower back and extends down in to both legs. Constant pain on the leftand stabbing intermittent pain on the right. First back surgery about 15 years ago. Using pain patches which give temporary relief, but make her dizzy. History of several injections. Most recent was on 06/23/14 with no relief. Will use cane for community walking if by herself. . Patient reports pain: Lower lumbar spine. Radiates to: Thigh left and gluteals left. Quality: Stabbing pain on the right. Sharp and aching on the left. and reported as 9/10 (10/10 at worst). Associatedsymptoms: Loss of motion/stiffness, loss of strength and loss of balance (No numbness or tingling. Feels weak with walking). Pain is the same all the time. Symptoms are exacerbated by walking, standing, sitting, bending, lifting and carrying and relieved by analgesics, muscle relaxants and ice (Lying on sides). Since onset symptoms are gradually worsening. Special tests: MRI and x-ray. Previous treatment includes surgery (None). General health as reported by patient is good. Pertinent medical history includes: Osteoarthritis, smoking and menopausal. Medical allergies: yes (Sulfa, augmentin, morphine). Other surgeries include: Orthopedic surgery and other (Three back surgeries, cholecystectomy, appendectomy, total recontructive foot surgery, hystrectomy). Current medications: Muscle relaxants, sleep medication and pain medication (Bone density). Current occupation is Not currently working - disabled. Primary job tasks include: Prolonged sitting and prolonged standing. Barriers include: None as reported by the patient. Red flags: Pain at rest/night. Objective: Standing Alignment: Cervical/Thoracic: Forward head and thoracic kyphosis increased Lumbar: Lordosis decr (Improvement in LBP sitting with lumbar roll and foot stool) Hip: Normal Gait: Gait Type: Antalgic Assistive Devices: None Lumbar/SI Evaluation ROM: AROM Lumbar: Flexion: Fingertips to mid thigh - increase in pain throughout movement. Worst on return from flexion Ext: 20% - increase in pain at end range. Compensation through hips and knees Side Bend: Left: Fingertips to mid thigh- increase in pain throughout movement Right: Fingertips to mid thigh - increase in pain throughout movement Rotation: Left: Right: Side [place]: Left: Right: Strength: Abdominals 1/5 Lumbar Myotomes: Lumbar myotomes: Increase in LBP with resisted testing bilaterally of hip flexors and hamstrings in seated/unsupported position. T12-L3 (Hip Flex): Left: 4+ Right: 4+ L2-4 (Quads): Left: 5 Right: 5 L4 (Ankle DF): Left: 5 Right: 5 L5 (Great Toe Ext): Left: 5 Right: 5 Lumbar Dermtomes: L3 Left: Hypo-light touch L3 Right: Normal-light touch L4 Left: Hypo-light touch L4 Right: Normal-light touch L5 Left: Hypo-light touch L5 Right: Normal-light touch S1 Left: Hypo-light touch S1 Right: Normal-light touch Neural Tension/Mobility: Left side:SLR w/DF negative. Right side: SLR w/DF positive. Lumbar Palpation: Tenderness present at Left: Quadratus Lumborum and Erector Spinae Tenderness not present at Left: Piriformis; PSIS or ASIS Tenderness present at Right: Quadratus Lumborum; Erector Spinae and Piriformis Tenderness not present at Right: PSIS or ASIS Lumbar Provocation: Left positive with: PROM hip (End range hip ER. ) Right positive with: PROM hip (End range hip ER) General ROS Assessment/Plan: Patient is a 64 year old female with lumbar complaints. Patient has the following significant findings with corresponding treatment plan. 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 Rehab potential is fair. Frequency: 1 X week, once daily Duration: [...] Priority Date/Time Associated Diagnosis Comme nts [facility] THERAPEUTIC Routine 07/25/2014 12:32 PM Midline Low Back P ain ACTIVITIES CDT With Right-Sided Sciatica [facility] THER[facility] Routine 07/25/2014 12:32 PM Midline low back p ain EXERCISES CDT with right-sided sciatica documented in this encounter Visit Diagnoses Diagnosis Midline low back pain with right-sided s ciatica - Primary documented in this encounter Care Teams Lastex Operator Relationship Specialty Start Date End Date Idalmis Sloan PCP - General Family Practice 11/04/13 documented as of this encounter
--- OUTSIDE RECORDS SUMMARY | 2021-11-12 14:48 | XMS_ITS | Encounter Summary ---
:1950 Author Organization [facility] Address [address] [place] [address] Care Team Providers Name Role Phone Unavailable Primary Care Provider Unavailable Encounter Details Date Type Department Care Team Description 08/22/2010 Historic Notes INTERFACED REPORT Israel Schwab RN [facility] [address] [place], [place] [address] (Wo rk) Social History Tobacco Use Types Packs/Day Years Used Date Never Assessed Sex Assigned at Date Recorded Not on file documented as of this encounter Progress Notes Israel Schwab E - 12/02/2010 7:38 PM CDT Interval History/Chief Complaint - Chief Complaint: Lumbar back pain, by surgical site that is dull and aching, with intermittent sharp/shoting pain. - Interval History: Patient's pain is doing well per her report despite the fact that her pain score this AM was around 8/10. She feels that the SCIENCE WRITER with the vistaril and tylenol are a good combination. She noted that she was able to get up with PT today and do pretty well. Review of Systems - Musculoskeletal See chief complaint. Comments: - Respiratory: Negative - Cardiovascular: Negative - GI Comments: Passed gas, no BM - Neuro Comments: Baseline neuropathy in bilateral legs. No noted increase in numbness/tingling in bilateral lower extremities post-op. Physical Exam - General: Pleasant, no acute distress. Not as sleepy this AM. - Lungs: Lungs clear bilaterally, all lobes. - Cardiovascular: Normal S1 & S2. No murmur appreciated. - Abdominal/Rectal: Obese. Non-distended. Hypoactive bowel sounds heard. Non-tender with palpation. - Lymphatics: No pitting edema noted. - Musculoskeletal: Did not do a full back exam due to positioning. She is able to move legs. - Neuro: Muscle strength +5/5 bilateral lower extremities. Vital Signs/Labs/Imaging/Culture Review - Vital Signs: Vital Signs reviewed past 24 hours. - Lab Results: All lab results reviewed past 24 hours. - Imaging Results: All imaging results reviewed past 24 hours. Pain Score and Medications - Pain Intensity Score: 4/10 lumbar spine area - Current Medications Tylenol 1000 mg Q 8 hours Pertinent for Pain Vistaril 25-50 mg Q 6 hours hold if sedated (she Management: had one 50 mg dose this AM) Dilaudid SCIENCE WRITER 0.1-0.2 Q 6 min with CR of 0.1-0.2. Hour limit 1.5 (she is using about 0.88 mg/hr) Flexeril 10 mg TID (she used one dose so far) Assessment and Plan - Assessment/Plan: Assessment: Patient here POD #1 after a decompression of L2-L3 and L4-L5 and posterior spine fusion of L2-L3 and L4-L5. Continues to have somatosensory type post-op pain with some neuropathic features. Pain is tolerable with current interventions. Plan: 1. Will keep SCIENCE WRITER as it is, since she is doing well and is able to participate in therapy. Will switch her back to methadone and oral opioid tomorrow (unless I hear that her team wants that done today) 2. Continue other multi-modal therapy. 3. When she goes back on the methadone tomorrow that will help with some of the nerve pain present. She has tried lyrica and neurontin in the past without success. 35 minutes spent with patient > 50% education and coordination of care. Signatures ISRAEL SCHWAB (COUNTY ADMINISTRATOR)[Signed 09:46] Authored: Interval History/Chief Complaint, Review of Systems, Physical Exam, Vital Signs/Labs/Imaging/Culture Review, Pain Score and Medications, Assessment and Plan documented in this encounter Plan of Treatment Not on filedocumented as of this encounter Visit Diagnoses Not on filedocumented in this encounter
--- OUTSIDE RECORDS SUMMARY | 2021-11-12 14:48 | XMS_ITS | Encounter Summary ---
:1950 Author Organization [facility] Address [address] [place] [address]. 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
--- OUTSIDE RECORDS SUMMARY | 2021-11-12 14:48 | XMS_ITS | Encounter Summary ---
:1950 Author Organization [facility] Address [facility] [place] [address] Care Team Providers Name Role Phone Idalmis Sloan Primary Care Provider Encounter Details Date Type Department Care Team Description 10/02/2015 Therapy Visit [facility] Venice Saeed, PT Cervical radiculitis Rehabilitation Services KIMBERJose PINTO (Primary Dx) [facility] [address] [facility] [address] [address] [place], [place] [address] [address] [place], [place] [address] Social History Tobacco Use Types Packs/Day Years Used Date Never Assessed Sex Assigned at Date Recorded Not on file documented as of this encounter Progress Notes Venice Saeed, PT - 10/02/2015 3:34 PM CDT Subjective: Patient is a 65 yo female with complaints of worsening, constant neck pain with onset August 2015 possibly due to long car rides/poor bed surfaces with associated headaches. VAS: 9/10. WORSE:turning head, looking up. BETTER: pain meds. PMH: cervical fusion (not sure how levels, 2 possibly 3). Denies any trouble swallowing, visual disturbances, dizziness, arm pain. MEDS: just received Tramadol injection, Methadone (chronic), hydrocodone (chronic), muscle relaxants. General health is good, red flags are negative. . Objective: CERVICAL: Posture: Sitting: fair; Standing: fair; Protruded head: yes; Relevant wry neck: none Posture Correction: better Neurological:history of recent L RCR which prevents accurate assessment of myotomes; patient's strength was 3-/5 ER, ABD previously. 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 Strength (lb) Sensory Deficit, Reflexes, Dural Signs: intact AROM: (Major, Moderate, Minimal or Nil loss) Movement Loss Meng Mod Min Nil Pain Protrusion x Flexion x Retraction x x pdm Extension x x erp Lateral flexion R x Lateral flexion L x Rotation R x x pdm Rotation L x x Repeated movement testing: (During: produces, abolishes, increases, decreases, no effect, centralizing, peripheralizing; After:better, worse, no better, no worse, no effect, centralized, peripheralized) Pre-test Symptoms Sitting: central neck, R>L, L upper arm to elbow Symptoms During Symptoms After ROM increased ROM decreased No Effect PRO Rep PRO RET decr better Rep RET decr neck, centralizing L arm centralized x RET EXT Rep RET EXT LF - R Rep LF - R LF - L Rep LF - L ROT - R Rep ROT - R ROT - L Rep ROT - L FLEX Rep FLEX Pre-test Symptoms Lying (if needed): Symptoms During Symptoms After ROM increased ROM decreased No Effect RET Rep RET RET EXT Rep RET EXT Static Tests: none Other Tests: none Provisional Classification: derangement Principle of Management (education/equipment/mechanical therapy/specific principle): rep RET in sitting w/pt. Overpressure; posture correction, use of cervical pillow System Physical Exam General ROS Assessment/Plan: Patient is a 65 year old female with cervical complaints. Patient has the following significant findings with corresponding treatment plan. Diagnosis 1: Cervical radiculitis Pain - hot/cold therapy, electric stimulation, manual therapy, self management, education, directional preference exercise and home program Decreased ROM/flexibility - manual therapy and therapeutic exercise Decreased function - therapeutic activities Impaired posture - neuro re-education Previous and current functional limitations: (See Goal [...] normal activities. Rehab potential is good. Frequency: 2 X week, once daily Duration: for 2 weeks tapering to 1 X a week over 4 weeks Discharge Plan: Achieve all LTG. Independent in home treatment program. Reach maximal therapeutic benefit. Please refer to the daily flowsheet for treatment today, total treatment time and time spent performing 1:1 timed codes. documented in this encounter Plan of Treatment Not on filedocumented as of this encounter Procedures Procedure Name Priority Date/Time Associated Diagnosis Comme nts [facility] MANUAL THER Routine 10/02/2015 4:55 PM CDT Cervical radicu litis TECH,1+REGIONS,EA 15 MIN [facility] THERAPEUTIC Routine 10/02/2015 4:55 PM CDT Cervical radicu litis EXERCISES documented in this encounter Visit Diagnoses Diagnosis Cervical radiculitis - Primary Brachial neuritis or radiculitis nos documented in this encounter Care Teams Adjunct History Instructor Relationship Specialty Start Date End Date Idalmis Sloan PCP - General Family Practice 11/04/13 documented as of this encounter
--- OUTSIDE RECORDS SUMMARY | 2021-11-12 14:48 | XMS_ITS | Encounter Summary ---
:1950 Author Organization [place] Address [facility] [place] [address] Care Team Providers Name Role Phone Idalmis Sloan Primary Care Provider Reason for Visit KIMBER Physical Therapy (Routine) - Denied Specialty Diagnoses / Procedures Referred By Contact Refer red To Contact Physical Therapy Diagnoses >4 s/p L rot cuff / mehdi lorenzana @ ortho / [employer] 30 visits per year Mehdi Gaffney MD Judd, Laurie, PT Procedures [facility] AND [facility] [id number] [place] [address] [address] [facility] [address] [place] [address] [place] [address] Fax: Referral ID Status Reason Start Date Expiration Date Visits V isits Requested Authorized KIMBER/WC/PT/L Denied 06/11/2015 06/10/2016 14 0 SHLDR POST [id number] Encounter Details Date Type Department Care Team Description 08/01/2015 Therapy Visit [facility] Wheeler, PT Sprain of left rotator cuff capsule, sub sequent encounter (Primary Dx); [facility] Other postprocedural status(V45.89) Services [facility] [id number] [place] [address] Specialty Care [address] [address] [place], [place] [address] [address] [place] [address] Social History Tobacco Use Types Packs/Day Years Used Date Never Assessed Sex Assigned at Date Recorded Not on file documented as of this encounter Plan of Treatment Not on filedocumented as of this encounter Procedures Procedure Name Priority Date/Time Associated Diagnosis Comme nts [facility] NEUROMUSCULAR Routine 08/02/2015 7:18 AM Sprain of left ro tator RE-EDUCATION CDT cuff capsule, subsequent encounter Other postprocedural status(V45.89) [facility] THERAPEUTIC Routine 08/02/2015 7:18 AM Sprain of left rota tor EXERCISES CDT cuff capsule, subsequent encounter Other postprocedural status(V45.89) documented in this encounter Visit Diagnoses Diagnosis Sprain of left rotator cuff capsule, sub sequent encounter - Primary Other postprocedural status(V45.89) Other postprocedural status documented in this encounter Care Teams Behavioral Medical Director Relationship Specialty Start Date End Date Idalmis Sloan PCP - General Family Practice 11/04/13 documented as of this encounter
--- OUTSIDE RECORDS SUMMARY | 2021-11-12 14:48 | XMS_ITS | Encounter Summary ---
:1950 Author Organization [place] Address [address] [facility] [place] [address] Care Team Providers Name Role Phone Idalmis Sloan Primary Care Provider Encounter Details Date Type Department Care Team Description 11/09/2014 Therapy Visit [facility] Fidelia Chang pain Rehabilitation Services SHANAE Sweet (Primary Dx) [place] [facility] [address] [employer] [address] [facility] [address] [place] [id number] Social History Tobacco Use Types Packs/Day Years Used Date Never Assessed Sex Assigned at Date Recorded Not on file documented as of this encounter Progress Notes Micki Chang, PT - 11/09/2014 1:55 PM CDT Subjective: Krys Mosher is a 64 year old female with a left shoulder condition. Condition occurred with: Unknown cause. Condition occurred: for unknown reasons. This is a chronic condition Onset of L shoulder pain ~ 1 year ago. Has had multiple cortisone shots with limited results. September 2014 started having increased pain and cortisone shot 10-06-14 didn't really help. Had MRI which showed full thickness tears of supraspinatus/infraspinatus. WORSE with getting dressed, pulling pants up, lifting carrying laundry basket, pushing/pulling, reaching up, behind back. Needs some assist from spouse. BETTER with rest, methocarbanol. 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 Goal is to avoid surgery and improve pain. Lives with spouse, in apartment, return to swimming, travel ([place] 2014), caring for dog. . Patient reports pain: Anterior and scapular area. Radiates to: Upper arm. Pain is described as aching and sharp and is intermittent and reported as 8/10 and 9/10. Pain is worse in the P.M. and worse during the night. Since onset symptoms are gradually worsening. Special tests: MRI and x-ray. General health as reported by patient is fair. Pertinent medical history includes: Asthma, smoking, [place] osteoporosis. Medical allergies: yes (Sulfa, Augmentin, morphine, lorazepam). Other surgeries include: Orthopedic surgery and other (Knee scope, 3 lumbar surgeries, appendectomy, cholecystectomy, Rfoot). Current medications: Sleep medication, muscle relaxants, meds to increase bone density, pain medication and anti-inflammatory. 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 Objective: System Shoulder Evaluation: ROM: AROM: Flexion: Left: 142 Right: 162 Abduction: Left: 162 Right: 168 External Rotation: Left: 50 deg at 0 abd Right: 55 deg at 0 abd Extension/Internal Rotation: Left: T12 Right: T10 PROM: normal Strength: Flexion: Left:3+/5 Pain: +++ Right: 4+/5 Pain: - Abduction: Left: 3+/5 Pain:+++ Right: 5/5 Pain:- Internal Rotation: Left:5/5 Pain:- Right: 5/5 Pain:- External Rotation: Left:3+/5 Pain:+++ Right:5/5 Pain:- Special Tests: Left shoulder positive for the following special tests: Impingement Right shoulder negative for the following special tests:Impingement General ROS Assessment/Plan: Patient is a 64 year old female with left side shoulder complaints. Patient has the following significant findings with corresponding treatment plan. Diagnosis 1: L rotator cuff tears Pain - hot/cold therapy, US, manual therapy, splint/taping/bracing/orthotics, self management, education and home program Decreased ROM/flexibility - manual therapy and therapeutic exercise Decreased joint mobility - manual therapy and therapeutic exercise Decreased strength - therapeutic exercise and therapeutic activities Decreased proprioception - neuro re-education and therapeutic activities Inflammation - cold therapy and self management/home program Impaired muscle performance - neuro re-education Decreased function - therapeutic activities Impaired posture - neuro re-education Previous and current functional limitations: (See Goal Flow Sheet for this information) Short term and terminal carman goals: (See Goal Flow Sheet for this [...] to resume normal activities. Rehab potential is questionable. Frequency: 1 X week, once daily Duration: [...] Name Priority Date/Time Associated Diagnosis Comme nts C THERAPEUTIC Routine 11/13/2014 10:13 AM Left shoulder pain EXERCISES CDT [facility] HOT OR COLD PACKS Routine 11/13/2014 10:13 AM Left shoulde r pain THERAPY CDT documented in this encounter Visit Diagnoses Diagnosis Left shoulder pain - Primary Pain in joint, shoulder region documented in this encounter Care Teams Tuck Pointer Relationship Specialty Start Date End Date Idalmis Sloan PCP - General Family Practice 11/04/13 documented as of this encounter
--- OUTSIDE RECORDS SUMMARY | 2021-11-12 14:48 | XMS_ITS | Encounter Summary ---
:1950 Author Organization [place] Address [address] [place] [address] Care Team Providers Name Role Phone NathaliaIdalmisVijaya Primary Care Provider Encounter Details Date Type Department Care Team Description 11/13/2013 Telephone [facility] Nurse Idalmis Sloan [facility] [address] [facility] [address] [place] [address] [place] [address] [phone] (Wo rk) Social History Tobacco Use Types Packs/Day Years Used Date Never Assessed Sex Assigned at Date Recorded Not on file documented as of this encounter Miscellaneous Notes Telephone Encounter - Idalmis Sloan - 11/13/2013 4:14 PM CDT Call Type: Triage Call Presenting Problem: I have had this cough, congestion,I know I have a sinus infection and bronchitis Kaylee had this before.I have been taking claritin and flonase and its not any better.I know an abx would help.Who is fire control mechanic? Advised to be seen.Page sent to MD per pt.Md advised to be seen in am. Pt stated she will go to the [facility]. # [phone] Triage Note: Guideline Title: Cough - Adult Recommended Disposition: See Provider within 8 Hours Original Inclination: Wanted to speak with a nurse Override Disposition: Intended Action: Follow advice given Physician Contacted: No Moderate to severe pain occurring with deep breath or a productive cough for one full day or more ? YES Severe breathing problems ? NO Continuous cough causing difficulty breathing ? NO Coughing up large amount of obvious blood (not blood-streaked sputum) ? NO Cough producing pink, frothy sputum ? NO Any temperature elevation in an immunocompromised individual or a frail elderly person ? NO New onset or worsening cough AND temperature of 101.5 F (38.6C) or greater ? NO Breathing symptoms (post choking episode, shortness of breath, out of breath, nasal flaring, change in skin color, anxiety) main problem ? NO New onset or worsening cough AND recent (within 4 wks.) surgery or trauma, or prolonged immobilization (bedrest, long travel), or smoker taking medication with estrogen ? NO Sudden onset of flu-like symptoms ? NO New or worsening cough AND known cardiac or respiratory condition not responding to treatment OR treatment not available ? NO Sudden onset of shortness of breath, chest pain and cough with blood tinged sputum ? NO Being treated by a provider for a secondary infection AND no improvement in symptoms, symptoms have worsened OR has new symptoms after following treatment plan for the time specified by provider. ? NO Physician Instructions: Care Advice: Use a cool mist humidifier to moisten air. Be sure to clean according to consumer educator's instructions. Limit activities and increase periods of rest. Call provider if fever greater than 101.5 F (38.6 C) or 100.5 F (38.1C) in an immunocompromised patient (such as diabetes, HIV/AIDS, renal disease, chemotherapy, organ transplant, or chronic steroid use) has not improved in 24 hours. Call EMS 911 if sudden worsening of breathing problems, dusky or blue color to skin, continuous chest pain, weakness, or confusion occurs. IMMEDIATE ACTION CAUTIONS SYMPTOM / CONDITION MANAGEMENT List, or take, all current prescription(s), nonprescription or alternative medication(s) to provider for evaluation. Analgesic/Antipyretic Advice - Acetaminophen: Consider acetaminophen as directed on label or by pharmacist/provider for pain or fever PRECAUTIONS: - Use if there is no history of liver disease, alcoholism, or intake of three or more alcohol drinks per day - Only if approved by provider during or when - During , acetaminophen should not be taken more than 3 consecutive days without telling provider - Do not exceed recommended dose or frequency Analgesic/Antipyretic Advice - NSAIDs: Consider aspirin, ibuprofen, naproxen or ketoprofen for pain or fever as directed on label or by pharmacist/provider. PRECAUTIONS: - If over 65 years of age, should not take longer than 1 week without consulting provider. EXCEPTIONS: - Should not be used if taking blood thinners or have bleeding problems. - Do not use if have history of sensitivity/allergy to any of these medications or history of cardiovascular, ulcer, kidney, liver disease or diabetes unless approved by provider. - Do not exceed recommended dose or frequency. Total water intake includes drinking water, water in beverages, and water contained in food. Fluids make up about 80% of the body's total hydration need. Individual fluid requirement to maintain hydration vary based on physical activity, environmental factors and illness. Limit fluids that contain sugar, caffeine, or alcohol. Urine will be very light yellow color when you drink enough fluids. documented in this encounter Plan of Treatment Not on filedocumented as of this encounter Visit Diagnoses Not on filedocumented in this encounter Care Teams Nnp Relationship Specialty Start Date End Date Idalmis Sloan PCP - General Family Practice 11/04/13 documented as of this encounter
--- OUTSIDE RECORDS SUMMARY | 2021-11-12 14:48 | XMS_ITS | Encounter Summary ---
:1950 Author Organization [place] Address [address] [facility] [place] [address] Care Team Providers Name Role Phone Idalmis Sloan Primary Care Provider Encounter Details Date Type Department Care Team Description 10/02/2015 Telephone [facility] r[facility] Advisors Madelin Brown, RN [address] [place] [address] Social History Tobacco Use Types Packs/Day Years Used Date Never Assessed Sex Assigned at Date Recorded Not on file documented as of this encounter Miscellaneous Notes Telephone Encounter - Madelin Brown, SANTOS - 10/02/2015 8:02 PM CDT Call Type: Triage Call Presenting Problem: Seen today and got injection in arm for her neck pain. Does not know what type of injection this was. States neck pain is worse tonight than before. Took methocarbamol 3 hrs ago w/ no relief. Took hydrocodone/apap 2 1/2 hours ago w/ no relief. Took a second hydrocodone/apap 10 min ago. Dose on bottle is 1-2 tabs. Has not tried heat application or ibuprofen. Says she can't take ibuprofen as it gives her GI upset. Advised pt to give the second tab of hydrocodone/apap she took 10 min ago, some time to take effect. Also apply moist heat to painful area. Call back if no relief w/ these measures. Otherwise call update to doctor tomorrow. Triage Note: Guideline Title: Neck Pain Recommended Disposition: See Provider within 24 hours Original Inclination: Wanted to speak with a nurse Override Disposition: Intended Action: Call PCP/HCP Physician Contacted: No Painful involuntary spasm of neck or jaw WITHOUT injury ? YES Severe breathing problems ? NO Injury to the neck ? NO New or worsening signs and symptoms that may indicate shock ? NO Neck mass/swelling ? NO Head injury ? NO Neck pain (no injury) AND any temperature elevation in an immunocompromised individual or frail elderly ? NO Choking sensation, cannot swallow own saliva with associated drooling and soft muffled voice ? NO Seizure now or within last 6 hours ? NO New onset or unexplained change in bowel or bladder control (unable to urinate and full feeling or loss of control of bowel or bladder) ? NO Any other cardiac signs/symptoms for more than 5 minutes, now or within last hour. Pain is NOT associated with taking a deep breath or a productive cough, movement, or touch to a localized area on the chest or upper body. ? NO Spasm or pain WITHOUT injury AND current or recent use of phenothiazines (Compazine, Thorazine, Mellaril, Prolixin, Loxitane, Haldol, etc.) ? NO Neck pain AND symptoms of viral illness that are not improved OR are getting worse with 24 hours of home care ? NO Sudden, severe disabling head pain OR caller spontaneously verbalizes worst headache of my life ? NO New onset of neck pain with forward head movement (no injury) AND severe generalized headache, fever, or altered mental status ? NO New onset of unbearable pain within last 24 hours ? NO Unexplained blood-colored (purple or red) flat pinpoint dots, spots or patches on the skin ? NO Physician Instructions: Care Advice: Another adult should drive. Call provider if symptoms worsen or new symptoms develop. Maintain good posture. Avoid putting pressure on a nerve by not carrying heavy objects such as computer case or backpack. Avoid overuse activities - alternate activities by switching sides and limit length of activity. Avoid lifting heavy objects. CAUTIONS SYMPTOM / CONDITION MANAGEMENT List, or take, all current prescription(s), nonprescription or alternative medication(s) to provider for evaluation. For some relief, try using a heating pad on low or medium for 15 - 20 minutes every 2 or 3 hours or take a warm shower. A microwave heating pad can also be used to provide warm moist heat. documented in this encounter Plan of Treatment Not on filedocumented as of this encounter Visit Diagnoses Not on filedocumented in this encounter Care Teams Aligner Relationship Specialty Start Date End Date Idalmis Sloan PCP - General Family Practice 11/04/13 documented as of this encounter
--- OUTSIDE RECORDS SUMMARY | 2021-11-12 14:48 | XMS_ITS | Encounter Summary ---
:1950 Author Organization [place] Address [address] [place] [address]. [place] [address] Care Team Providers Name Role Phone Idalmis Sloan Primary Care Provider Reason for Visit KIMBER Physical Therapy (Routine) - Denied Specialty Diagnoses / Procedures Referred By Contact Refer red To Contact Physical Therapy Diagnoses >4 s/p L rot cuff / mehdi lorenzana @ ortho / [employer] 30 visits per year Mehdi Gaffney MD Judd, Laurie, PT Procedures [facility]IAL [facility] AND [facility] [address] [place] [address] [place] [address] [place] [address] Fax: Referral ID Status Reason Start Date Expiration Date Visits V isits Requested Authorized KIMBER/WC/PT/L Denied 06/11/2015 06/10/2016 14 0 SHLDR POST [id number] Encounter Details Date Type Department Care Team Description [facility] of left rotator cuff capsule, subsequent encounter (Primary Dx); Rehabilitation Services CORRINA Melissa Othe r postprocedural status(V45.89) [facility] [address] [facility] [address] [place] [address] Social History Tobacco Use Types Packs/Day Years Used Date Never Assessed Sex Assigned at Date Recorded Not on file documented as of this encounter Progress Notes Belén Alva PTA - 06/22/2015 10:13 AM CDT Subjective: HPI Objective: System Shoulder Evaluation: ROM: PROM: Flexion: Left: 140 Abduction: Left: 150 Internal Rotation: Left: 45 External Rotation: Left: 50 General ROS Assessment/Plan: PROGRESS REPORT Progress reporting period is from 06/11/15 to 06/21/15. SUBJECTIVE Subjective changes noted by patient: Patient has been in the hospital for the past few days with Pneumonia. She has been coughing and laying around more. Shoulder is sore. Current pain level is Current Pain level: 6/10. Previous pain level was Initial Pain level: 8/10. Changes in function: Yes (See Goal flowsheet attached for changes in current functional level) Adverse reaction to treatment or activity: None OBJECTIVE Changes noted in objective findings: Yes, ROM of the left shoulder is improving. ASSESSMENT/PLAN Updated problem list and treatment plan: Diagnosis 1: Post- op left shoulder Pain - self management,education, directional preference exercise and home program Decreased ROM/flexibility - therapeutic exercise, therapeutic activity and home program Decreased joint mobility - therapeutic exercise, therapeutic activity and home program Decreased strength - therapeutic exercise, therapeutic activities and home program STG/LTGs have been met or progress has been made towards goals: Yes (See Goal flow sheet completed today.) Assessment of Progress: The patient's condition is improving. Self Management Plans: Patient has been instructed in a home treatment program. Patient has been instructed in self management of symptoms. I have re-evaluated this patient and find that the nature, scope, duration and intensity of the therapy is appropriate for the medical condition of the patient. Krys continues to require the following intervention to meet STG and LTG's: PT Recommendations: This patient would benefit from continued therapy. Frequency: 1 X week, once daily Duration: for 6 weeks The progress note/discharge summary was written in collaboration with and reviewed by the physical therapist. Please refer to the daily flowsheet for treatment today, total treatment time and time spent performing 1:1 timed codes. documented in this encounter Plan of Treatment Not on filedocumented as of this encounter Procedures Procedure Name Priority Date/Time Associated Diagnosis Comme nts [facility] THERAPEUTIC Routine 06/22/2015 10:17 AM Sprain of left rot ator EXERCISES CDT cuff capsule, subsequent encounter Other postprocedural status(V45.89) [facility] HOT OR COLD PACKS Routine 06/22/2015 10:17 AM Sprain of le ft rotator THERAPY CDT cuff capsule, subsequent encounter Other postprocedural status(V45.89) documented in this encounter Visit Diagnoses Diagnosis Sprain of left rotator cuff capsule, sub sequent encounter - Primary Other postprocedural status(V45.89) Other postprocedural status documented in this encounter Care Teams Operating Room Scheduler Relationship Specialty Start Date End Date Idalmis Sloan PCP - General Family Practice 11/04/13 documented as of this encounter
--- OUTSIDE RECORDS SUMMARY | 2021-11-12 14:48 | XMS_ITS | Encounter Summary ---
:1950 Author Organization [place] Address [facility] [place] [address] Care Team Providers Name Role Phone Unavailable Primary Care Provider Unavailable Encounter Details Date Type Department Care Team Description 08/22/2010 Hospital Laboratory [facility] Results Carlos simmons PA-C [facility] [address] [facility] [address] [place] [address] (Wo rk) Social History Tobacco Use Types Packs/Day Years Used Date Never Assessed Sex Assigned at Date Recorded Not on file documented as of this encounter Plan of Treatment Not on filedocumented as of this encounter Procedures Procedure Name Priority Date/Time Associated Comments Diagnosis HEMOGLOBIN Routine 08/22/2010 7:55 AM Results f or this CDT procedure are i n the results section. BASIC METABOLIC Routine 08/22/2010 7:55 AM Result s for this PANEL CDT procedure are i n the results section. documented in this encounter Results (ABNORMAL) Hemoglobin (08/22/2010 7:55 AM CDT) athologist Signature Hemoglobin 10.4 (L) 11.7 - 15.7 [place] g/dL [facility] Specimen Anatomical Collection Method Collection Time Receive d Time (Source) Location / / Volume Laterality 08/22/2010 7:55 AM 7:58 CDT AM CDT Maame Chaparro PA-C LAB - BLOOD ORDERABLES Performing Organization Address City/State/ZIP Code Phon e Number [facility] [address] [place], [place] [address] [facility] (ABNORMAL) Basic metabolic panel (08/22/2010 7:55 AM CDT) P athologist Signature Sodium 138 133 - 144 [place] mmol/L [facility] Potassium 4.2 3.4 - 5.3 [place] mmol/L [facility] Chloride 107 94 - 109 [place] mmol/L [facility] Carbon Dioxide 24 20 - 32 [place] mmol/L [facility] Anion Gap 8 6 - 17 [place] mmol/L [facility] Glucose 112 (H) 60 - 99 [place] mg/dL [facility] Urea Nitrogen 10 7 - 30 [place] mg/dL [facility] Creatinine 0.74 0.52 - [place] 1.04 mg/dL [facility] GFR Estimate 80 >60 [place] mL/min/[address] [place] [address] LAB GFR Estimate If >90 >60 [place] Black mL/min/1.[address] [place] [address] LAB Calcium 7.7 (L) 8.5 - 10.4 [place] mg/dL [facility] Specimen Anatomical Collection Method Collection Time Receive d Time (Source) Location / / Volume Laterality 08/22/2010 7:55 AM 1 7:58 CDT AM CDT Maame Chaparro PA-C LAB - BLOOD ORDERABLES Performing Organization Address City/State/ZIP Code Phon e Number [facility] [address] [place], [place] [address] [facility] documented in this encounter Visit Diagnoses Not on filedocumented in this encounter
--- OUTSIDE RECORDS SUMMARY | 2021-11-12 14:48 | XMS_ITS | Encounter Summary ---
:1950 Author Organization [facility] Address [address] [place] [address] Care Team Providers Name Role Phone Nathalia Idalmis Parks Primary Care Provider Ana Jacobs PA-C Unavailable Madhav Matute MD Unavailable Encounter Details Date Type Department Care Team Description 11/21/2014 External Order [facility] Outside, Provider Results Rehabilitation Services [facility] [address] [facility] [address] [place] [address] Social History Tobacco Use Types Packs/Day Years Used Date Never Assessed Sex Assigned at Date Recorded Not on file documented as of this encounter Plan of Treatment Not on filedocumented as of this encounter Procedures Procedure Name Priority Date/Time Associated Diagnosis Comme nts MRI IMAGING - HIM SCAN Routine 10/30/2014 documented in this encounter Results MRI Imaging - HIM Scan (10/30/2014) Anatomical Region Laterality Modality Other Narrative This result has an attachment that is no t available. Provider Outside IM MRI ORDERABLES documented in this encounter Visit Diagnoses Not on filedocumented in this encounter Additional Health Concerns Infection Onset Date Last Indicated Resolved Time Rule Out C-difficile 12/17/2020 12/17/2020 12/17/2020 2:59 AM CDT documented as of this encounter Care Teams Sugarcane Research Technician Relationship Specialty Start Date End Date LeviIdalmis stahl PCP - General Family Practice 11/04/13 Ana Jacobs PA-C Assigned Neuroscience 11/04/20 12/01/20 [facility] Provider [address] [address] Madhav Matute MD Assigned Neuroscience 12/02/[address] Senior [address] [place] [address] [place] [id number] documented as of this encounter
--- OUTSIDE RECORDS SUMMARY | 2021-11-12 14:48 | XMS_ITS | Encounter Summary ---
:1950 Author Organization [facility] Address [address] 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 SUBJECTIVE Subjective changes noted by patient: Patient did not return for PT.. Current pain level is Current Pain level: 7/10. Previous pain level was Initial Pain level: 10/10. Changes in function: Yes (See Goal flowsheet attached for changes in current functional level) Adverse reaction to treatment or activity: None OBJECTIVE Changes noted in objective findings: Patient has failed to return to therapy so current objective findings are unknown. Objective: Push/ pull exercises and use the abd mm. Weakness with the abd mm.Needs cueing for abd control. Overuse of the lumbar extensor mm ASSESSMENT/PLAN Updated problem list and treatment plan: Diagnosis 1: Low back pain Pain - self management, education, directional preference exercise and home program Decreased ROM/flexibility - manual therapy, therapeutic exercise, therapeutic activity and home program Decreased joint mobility - manual therapy, therapeutic exercise, therapeutic activity and home program Decreased strength - therapeutic exercise, therapeutic activities and home program STG/LTGs have been met or progress has been made towards goals: Yes (See Goal flow sheet completed today.) Assessment of Progress: The patient has not returned to therapy. Current status is unknown. Self Management Plans: Patient has been instructed in a home treatment program. Patient has been instructed in self management of symptoms. I have re-evaluated this patient and find that the nature, scope, duration and intensity of the therapy is appropriate for the medical condition of the patient. Krys continues to require the following intervention to meet STG and LTG's: PT intervention is no longer required to meet STG/LTG. Recommendations: This patient is ready to be discharged from therapy and continue their home treatment program. The progress note/discharge summary was written in collaboration with and reviewed by the physical therapist. Please refer to the daily flowsheet for treatment today, total treatment time and time spent performing 1:1 timed codes. documented in this encounter Miscellaneous Notes Addendum Note - Kathie Roman, PT - 09/21/2014 12:51 PM CDT Addended by: KATHIE ROMAN on: 09/21/2014 12:51 PM Modules accepted: Orders documented in this encounter Plan of Treatment Not on filedocumented as of this encounter Procedures Procedure Name Priority Date/Time Associated Diagnosis Comme nts ZC THERAPEUTIC Routine 08/24/2014 4:25 PM Midline low back pa in ACTIVITIES CDT with right-sided sciatica ZZC NEUROMUSCULAR Routine 08/24/2014 4:25 PM Midline low back pain RE-EDUCATION CDT with right-sided sciatica Z THERAPEUTIC EXERCISES Routine 08/24/2014 4:25 PM Midline l ow back pain CDT with right-sided sciatica documented in this encounter Visit Diagnoses Diagnosis Midline low back pain with right-sided s ciatica - Primary documented in this encounter Care Teams Online Education Manager Relationship Specialty Start Date End Date Idalmis Sloan PCP - General Family Practice 11/04/13 documented as of this encounter
--- OUTSIDE RECORDS SUMMARY | 2021-11-12 14:48 | XMS_ITS | Encounter Summary ---
:1950 Author Organization [facility] Address [address] [place] [address]. [place] [address] Care Team Providers Name Role Phone Unavailable Primary Care Provider Unavailable Reason for Visit Reason Onset Date Comments Nurse Advice Line 03/21/2012 Encounter Details Date Type Department Care Team Description 03/21/2012 Telephone [facility] DEPT FOR [facility] None Nurse Ad vice Line Social History Tobacco Use Types Packs/Day Years Used Date Never Assessed Sex Assigned at Date Recorded Not on file documented as of this encounter Miscellaneous Notes Telephone Encounter - Waleska Alcaraz - 03/21/2012 7:37 PM CST [facility] Triage Call Report Patient Name: Krys Mosher Call Date & Time: 03/21/2012 11:00:19AM Patient PCP Name: VijayaKasey Sloan MRN: Patient Address: [address] [address] Patient Date of : 1950 Age: 61 yr. 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 Temp started today, 100.5. Krys states that her is in hospital and is requesting an antibiotic over the phone. Instructed Krys that MD's do not give out antibiotics over the phone. No triage. Patient had no primary and no office visit. Triage Note: Guideline Title: No Guideline - Advice Per Reference (Adult) Recommended Disposition: Override Disposition: Provide Home/Self Care Question Response Question Note ACTIVATE EMS 911 No SEE ED IMMEDIATELY No CALL PROVIDER IMMEDIATELY No CALL POISON CENTER IMMEDIATELY No CALL LOCAL AGENCY IMMEDIATELY No SEE PROVIDER WITHIN 4 HOURS No SEE DENTIST WITHIN 4 HOURS No SEE PROVIDER WITHIN 24 HOURS No SEE DENTIST WITHIN 24 HOURS No CALL PROVIDER WITHIN 24 HOURS No CALL LOCAL AGENCY WITHIN 24 HOURS No SEE PROVIDER WITHIN 72 HOURS No CALL PROVIDER WITHIN 72 HOURS No SEE DENTIST WITHIN 72 HOURS No SEE PROVIDER WITHIN 2 WEEKS No SEE DENTIST WITHIN 2 WEEKS No PROVIDE HOME/SELF CARE Yes Physician Contacted: Physician Instructions: No Care Advice: - MEDICAL HISTORY Conditions: Condition Note: .Other Edema Osteoporosis High Cholesterol Reflux Medication: Medication Note: .Other - RX Med, not on list Potassium, Furosemide,omeprazole, Ca w Vit D, MVI, Fosomax, Nasal spray for allergies, Allergy: Reaction: .Other .Other Augmentin Hives Cipro Hives Sulfa Hives Procedure: Procedure Note: .Other right foot surgery 2006 [employer] MECH[employer]IC documented in this encounter Plan of Treatment Not on filedocumented as of this encounter Visit Diagnoses Not on filedocumented in this encounter
--- OUTSIDE RECORDS SUMMARY | 2021-11-12 14:48 | XMS_ITS | Encounter Summary ---
:1950 Author Organization [facility] Address [address] [place] [address]. [place] [address] Care Team Providers Name Role Phone Idalmis Sloan Primary Care Provider Reason for Visit [facility] Physical Therapy (Routine) - Denied Specialty Diagnoses / Procedures Referred By Contact Refer red To Contact Physical Therapy Diagnoses >4 s/p L rot cuff / mehdi lorenzana @ ortho / [employer] 30 visits per year Mehdi Gaffney MD Judd, Laurie, PT Procedures [facility] [address] [place] [address] [place] [address] [address] [place] [address] [place] [address] Fax: Referral ID Status Reason Start Date Expiration Date Visits V isits Requested Authorized [facility]/WC/PT/L Denied 06/11/2015 06/10/2016 14 0 [facility] POST [id number] Encounter Details Date Type Department Care Team Description 06/27/2015 [facility] Sprain of left rotator cuff capsule, subsequent encounter (Primary Dx); Rehabilitation Services [facility] Melissa Otnatacha r postprocedural status(V45.89) [facility] [address] [facility] [address] [place] [address] Social History Tobacco Use Types Packs/Day Years Used Date Never Assessed Sex Assigned at Date Recorded Not on file documented as of this encounter Plan of Treatment Not on filedocumented as of this encounter Procedures Procedure Name Priority Date/Time Associated Diagnosis Comme [facility] ZC THERAPEUTIC Routine 06/27/2015 8:29 PM Sprain of left rota tor EXERCISES CDT cuff capsule, subsequent encounter Other postprocedural status(V45.89) [facility] HOT OR COLD PACKS Routine 06/27/2015 8:29 PM Sprain of lef t rotator THERAPY CDT cuff capsule, subsequent encounter Other postprocedural status(V45.89) documented in this encounter Visit Diagnoses Diagnosis Sprain of left rotator cuff capsule, sub sequent encounter - Primary Other postprocedural status(V45.89) Other postprocedural status documented in this encounter Care Teams Pressure Testing Technician Relationship Specialty Start Date End Date Idalmis Sloan PCP - General Family Practice 11/04/13 documented as of this encounter
--- OUTSIDE RECORDS SUMMARY | 2021-11-12 14:48 | XMS_ITS | Encounter Summary ---
:1950 Author Organization [facility] Address [address] [facility] [place] [address] Care Team Providers Name Role Phone Unavailable Primary Care Provider Unavailable Encounter Details Date Type Department Care Team Description 08/21/2010 Operative Report [facility] Jose Comer (Manager Transit) [facility] MD Dipti Results [facility] [address] [place] [address] Social History Tobacco Use Types Packs/Day Years Used Date Never Assessed Sex Assigned at Date Recorded Not on file documented as of this encounter Progress Notes Jose Comer MD - 08/22/2010 6:48 AM CDT FINAL PREOPERATIVE DIAGNOSES: 1.Severe spinal stenosis, L2-L3 (central, lateral recess and foraminal. 2.Severe spinal stenosis, L4-L5 (lateral recess and foraminal). 3.Grade 1 degenerative spondylolisthesis L2-L3 and L4-5/segmental instability. 4.Persistent severe bilateral lower extremity pain. 5.Failure of extensive conservative care. 6.Status post L3-4 fusion and decompression elsewhere by another surgeon many years ago. POSTOPERATIVE DIAGNOSES: 1.Severe spinal stenosis, L2-3 (central, lateral recess and foraminal). 2.Severe spinal stenosis, L4-5 (lateral recess and foraminal). 3.Grade 1 degenerative spondylolisthesis, L3 and L4-5/segmental instability. 4.Persistent severe bilateral lower extremity pain. 5.Failure of extensive conservative care. 6.Status post L3-4 fusion and decompression elsewhere by another surgeon many years ago. PROCEDURES: 1.Lumbar laminectomy, L2. 2.Lumbar laminectomy, L4. 3.Bilateral lateral recess decompressions, L2-L3 and L4-L5. 4.Bilateral foraminotomies, L2-3 and L4-5. 5.Posterolateral fusion, L2-3 and L4-5, with autogenous bone marrow, crushed cancellous allograft bone and morcellized laminectomy bone. 6.Insertion of pedicle screw mary fixation, TSRH 3Dx; L2, L3, L4 and L5. 7.Removal of pedicle screw mary fixation, L3-L4 (CD). 8.[place] of autogenous bone marrow, right ilium. SURGEON: Jose Comer MD V BLOCK SAW OPERATOR: Bethany Chaparro PA-C, INDICATIONS FOR PROCEDURE: Krys Mosher is a very pleasant 60-year-old female referred to me for evaluation and treatment of persistent severe lateral buttock and lower extremity pain. Her symptoms werevery stenotic in nature, with the pain present predominantly when standing and walking. Also sittingfor a prolonged period of time would be uncomfortable, particularly when she would start moving. Shehas had these symptoms for several years. The pain continued to increase in severity in spite of extensive conservative care, including anti- inflammatories, epidural steroid injections, physical therapy and narcotic medication. She has a significant past history of a previous fusion at L3-L4 with decompression at L3-L4 elsewhere by another surgeon many years ago from which she did very well for multiple years. The patient underwent diagnostic tests which included plain x-rays and MRI scanning. The plain x-rays showed evidence of a solid fusion at L3-L4, pedicle screw fixation at L3 and L4. The plain x-rays on the dynamic views, including flexion and extension x-rays, showed evidence of segmental instability in the form of a grade 1 degenerative spondylolisthesis at L2-3 and L4-5. The MRI scan confirmed the presence of lumbar spinal stenosis at L2-3 and L4-5. L2-L3 was extremely stenotic. The charlene ent was informed of the results of the tests and of the treatment options. Treatment options included continuation of conservative care if she felt that she could tolerate the pain versus surgical treatment in the form of a decompression of stenotic segments with a fusion to stabilize the spondylolisth esis levels. The risks, goals, and potential complications of the surgical treatment were discussed at length with the patient. She elected to proceed with the surgery. DESCRIPTION OF PROCEDURE: The patient was brought to the operating room, and under general anesthetic was placed prone on a Dudley table. Care was taken to protect all areas of potential pressure. Thelumbosacral region was prepared and draped in the usual sterile manner. A longitudinal incision was made in the midline, spanning the spinous processes of L2 down to L5. The fascia and paraspinal muscles were reflected with the help of a Del Toro elevator and cautery dissection. Once the spine was exposed, the instrumentation was identified which confirmed the levels of the surgery. I then proceeded withremoval of the instrumentation, including pedicle screws involved at L3-L4. The set nuts were removed with a T handle, the rods with a mary warren, and the screws with a screwdriver. Of note is that allfour screws were loose. The fusion was cleaned of all soft tissue, and inspected, and indeed the fusion was solid. We spent time proceeding with the decompression/laminectomies. The spinous process of L2 and the spinous process of L4 were removed with a Leksell rongeur. The bone was cleaned of all soft tissue and morcellized with a bone mill to be used as supplemental bone graft for the procedure. Ligamentum flavum was freed from the undersurface of lamina of L2 and L4 with a #1 Shipman, and then using a 4 mm Kerrison rongeur, a laminectomy was performed at L2, and the ligamentum flavum between L2and L3 was removed, and laminectomy was performed at L4, and the ligamentum flavum was removed between L4 and L5. I then directed my attention to the lateral recesses. The lateral recesses were then explored and found to be tight. Therefore, bilateral lateral recess decompressions were carried out at L 2-3 and L4-5 using the 3 mm Kerrison rongeurs. The foramina were palpated and still found to be tight; therefore, CONTINUATION: At this point in time, I proceeded with decompression/laminectomies. The spinous processes of L2 andL4 were removed with a Leksell rongeur. The bone was cleaned of all soft tissue and morcellized withthe bone mill to be used as supplemental bone graft for the fusion. I then freed up the ligamentum flavum from the undersurface of the lamina of L2 and L4, using a #1 Shipman, and then with the help of a 4 mm Kerrison rongeur, laminectomies were performed at L2 and L4. Ligamentum flavum between L2 and L3, and L4 and L5 was removed. After completion of the central portion of the decompression, attention was directed to the lateral recesses which were explored and confirmed to be tight. Therefore, darrell ateral lateral recess decompressions were carried out at L2-3 and L4-5 using the 3 mm Kerrison rongeur. The foramina were palpated and found to be extremely tight at both levels. Therefore, extensive foraminotomies were carried out at L2-3 and L4-5 using a combination of the straight 2 mm and the curved 2 mm Kerrison rongeurs. At the completion of the procedure, nerve roots were mostly free. There was still some up and down stenosis at L2-3 and L4-5 which was corrected after reinsertion of the pedicle screws. The bleeding epidural vessels were controlled with bipolar cautery and small amounts of powdered Gelfoam. At this point in time, we proceeded with the harvest of the bone marrow from the right ilium. This was done with a Jamshidi needle. Multiple passes were made into the right ilium with the needle, and with each pass approximately 4 cc of bone marrow were obtained for a total of 20 cc. The bone marrow was then mixed with the crushed cancellous allograft bone and with the morcellized laminectomy bone. I then directed my attention back to the lumbar spine. The Gelpi retractors were re-inserted, the spine re-exposed, and the wound irrigated extensively with antibiotic solution. At this point in time, we proceeded with the fusion and insertion of the pedicle screw fixation. The pedicles of L2 and L5 were prepared in the usual manner. First, small corticotomies were made at the points of entrance to the pedicles with a bur. The pedicles were then sequentially prepared by inserting a 3.0 cervical curette and a pedicle finder. The pedicles were probed with a ball-tipped probe, and no violation of the pedicle arnold was detected. The pedicles were measured with a depth gauge, and the appropriate length screws were selected. The transverse process of L2, the fusion mass at L3 and L4, and the transverse process of L5 were decorticated using curets and a Capner gouge, and grafted with a large amount of bone graft material. After placement of the bone graft material for the fusion in the lat era gutters, I then decorticated the L2-L3 and L4-L5 facet joints with the help of an osteotome jerome bur. The facet joints were then grafted also. Screws were then inserted into the pedicles of L2, L3, L4 and L5 bilaterally. Two rods were contoured and secured to the screws. Some distraction was applied between L2-L3 and L4-L5 in order to increase the vertical height of the foramen. These indeed completely decompressed the exiting L2 and L4 nerve roots. During the decompression, the bleeding epidural vessels were controlled with bipolar cautery. X-rays were obtained in AP and lateral planes whichconfirmed good positioning of the screws. The set nuts were torqued to the project management intern's specifications with a torque wrench. The wound was irrigated several times with antibiotic solution throughout the procedure. Hemostasis was checked and found to be satisfactory. The wound was then closed. A medium-sized Hemovac drain was placed in the deep wound. The fascia and paraspinal muscles were reapproximated with interrupted 0 Vicryl stitches and a running 0 Vicryl stitch. Another medium-sized Hemovac drain was placed subcutaneously. The subcutaneous tissues were closed with two layers of running 0 Vicryl stitch, and the skin with a running subcuticular 3-0 Vicryl stitch. Steri-Strips and a sterile dressing were applied. The patient tolerated the procedure well and was returned to the recovery room in good condition. Revised: , , Document: [id number], EM#[id number] Electronically signed on 08/22/2010 06:48 by JOSE COMER MD MT: [id number] Name: KRYS MOSHER Account: [id number] : 1950 Procedure Date: 08/21/2010 Document: [id number] cc: Idalmis Sloan MD documented in this encounter Plan of Treatment Not on filedocumented as of this encounter Visit Diagnoses Not on filedocumented in this encounter
--- OUTSIDE RECORDS SUMMARY | 2021-11-12 14:48 | XMS_ITS | Encounter Summary ---
:1950 Author Organization [place] Address [facility] [place] [address] Care Team Providers Name Role Phone Idalmis Sloan Primary Care Provider Reason for Visit KIMBER Physical Therapy (Routine) - Denied Specialty Diagnoses / Procedures Referred By Contact Refer red To Contact Physical Therapy Diagnoses >4 s/p L rot tiff / mehdi lorenzana @ ortho / [employer]BS 30 visits per year Mehdi Gaffney MD Judd, Laurie, PT Procedures EXTREMITY INITIAL ORTHOPAEDIC AND KIMBER [facility] [address] [facility] [address] [place] [address] [place] [address] Fax: Referral ID Status Reason Start Date Expiration Date Visits V isits Requested Authorized KIMBER/WC/PT/L Denied 06/11/2015 06/10/2016 14 0 SHLDR POST [id number] Encounter Details Date Type Department Care Team Description 06/11/2015 Therapy Visit [facility] [place] Wheeler, PT Sprain of left rotator cuff capsule (Apoorva womack Dx); [facility] Other postprocedural status(V45.89) Services [place] [id number] [place] [address] [facility] [address] [address] [place], [place] [address] [address] [place] [address] Social History Tobacco Use Types Packs/Day Years Used Date Never Assessed Sex Assigned at Date Recorded Not on file documented as of this encounter Progress Notes Venice Saeed, PT - 06/11/2015 10:45 AM CDT Subjective: Patient is a 65 yo non smoker female w/compliants of constant, improving left shoulder pain since surgery May 18, 2015 due to a torn rotator cuff. Mechanical stresses: retired. VAS: 8/10. WORSE: reaching, sleeping on side, moving arm. BETTER: ice, meds. MEDS: Hydrocodone (1-2/4 hrs). PMH: prior hx of cervical fusion, back surgery x3, OA, osteoporosis. General health is good, red flags are negative. . Objective: System Shoulder Evaluation: ROM: AROM: Flexion: Left: 39 Extension: Left: 35 Abduction: Left: 32 Internal Rotation: Left: 35 External Rotation: Left: 32 Elbow Extension: Left: 5 Flexion/External Rotation: Left: Unable Extension/Internal Rotation: Left: Top of L buttocks PROM: Flexion: Left: 100 Abduction: Left: 90 Internal Rotation: Left: 40 External Rotation: Left: 37 Strength: : not tested. General ROS Assessment/Plan: Patient is a 65 year old female with left side shoulder complaints. Patient has the following significant findings with corresponding treatment plan. Diagnosis 1: L UE RCR Pain - self management, education, directional preference exercise and home program Decreased ROM/flexibility - manual therapy and therapeutic exercise Decreased joint mobility - manual therapy and therapeutic exercise Decreased strength - therapeutic exercise and therapeutic activities Impaired muscle performance - neuro re-education Decreased function - therapeutic activities Previous and current functional limitations: (See Goal Flow Sheet for this information) Short term and MCC goals: (See Goal Flow Sheet for this [...] 2 X week, once daily Duration: for 3 weeks tapering to 1 X a week over 10 weeks Discharge Plan: Achieve all LTG. Independent in home treatment program. Reach maximal therapeutic benefit. Please refer to the daily flowsheet for treatment today, total treatment time and time spent performing 1:1 timed codes. documented in this encounter Plan of Treatment Not on filedocumented as of this encounter Procedures Procedure Name Priority Date/Time Associated Diagnosis Comme nts ZZC THERAPEUTIC Routine 06/11/2015 1:42 PM Sprain of left rota tor EXERCISES CDT cuff capsule Other postprocedural status(V45.89) documented in this encounter Visit Diagnoses Diagnosis Sprain of left rotator cuff capsule - Pr imary Rotator cuff (capsule) sprain Other postprocedural status(V45.89) Other postprocedural status documented in this encounter Care Teams Retrimmer Relationship Specialty Start Date End Date Idalmis Sloan PCP - General Family Practice 11/04/13 documented as of this encounter
--- OUTSIDE RECORDS SUMMARY | 2021-11-12 14:48 | XMS_ITS | Encounter Summary ---
:1950 Author Organization [place] Address [address] [facility] [place] [address] Care Team Providers Name Role Phone Idalmis Sloan Primary Care Provider Encounter Details Date Type Department Care Team Description 11/22/2014 Therapy Visit [facility] [place] Left dontrell pain Rehabilitation Services PHARMACIST (Apoorva womack Dx) [facility] [address] [facility] [address] [place], [place] [address] Social History Tobacco Use Types Packs/Day Years Used Date Never Assessed Sex Assigned at Date Recorded Not on file documented as of this encounter Progress Notes Micki Chang, PT - 01/30/2015 3:45 PM CST Subjective: HPI Objective: System Physical Exam General ROS Assessment/Plan: DISCHARGE REPORT Progress reporting period is from 11-13-14 to 12-19-14. SUBJECTIVE Subjective changes noted by patient: . Subjective: Seeing the mD next week.Take meds for pain everyday. more than she used to. About every 5 hours.Can't sleep on the left shoulder Current pain level is Current Pain level: 7/10. Previous pain level was Initial Pain level: 9/10. Changes in function: Yes (See Goal flowsheet attached for changes in current functional level) Adverse reaction to treatment or activity: None OBJECTIVE Changes noted in objective findings: Patient has failed to return to therapy so current objective findings are unknown. Objective: Better mobility with the left shoulder with exercises. Patient is able to bring the left shoulder into a standing flexion. ASSESSMENT/PLAN Updated problem list and treatment plan: STG/LTGs have been met or progress has been made towards goals: Yes (See Goal flow sheet completed today.) Assessment of Progress: The patient has not returned to therapy. Current status is unknown. Self Management Plans: Patient has been instructed in a home treatment program. Patient has been instructed in self management of symptoms. Krys continues to require the following intervention to meet STG and LTG's: PT intervention is no longer required to meet STG/LTG. Recommendations: This patient is ready to be discharged from therapy and continue their home treatment program. Please refer to the daily flowsheet for treatment today, total treatment time and time spent performing 1:1 timed codes. FINISHING SUPERVISOR documented in this encounter Miscellaneous Notes Addendum Note - Micki Chang, PT - 01/30/2015 3:46 PM PIPE FINISHING SUPERVISOR Addended by: MICKI CHANG on: 01/30/2015 03:46 PM Modules accepted: Orders FINISHING SUPERVISOR documented in this encounter Plan of Treatment Not on filedocumented as of this encounter Procedures Procedure Name Priority Date/Time Associated Diagnosis Comme nts ZZC THERAPEUTIC Routine 11/22/2014 3:40 PM Left shoulder pain ACTIVITIES CDT ZZC NEUROMUSCULAR Routine 11/22/2014 3:40 PM Left shoulder josefina n RE-EDUCATION CDT ZZC THERAPEUTIC EXERCISES Routine 11/22/2014 3:40 PM Left shou lder pain CDT ZZC HOT OR COLD PACKS Routine 11/22/2014 3:40 PM Left shoulder pain THERAPY CDT documented in this encounter Visit Diagnoses Diagnosis Left shoulder pain - Primary Pain in joint, shoulder region documented in this encounter Care Teams Smoking Pipe Repairer Relationship Specialty Start Date End Date Idalmis Sloan PCP - General Family Practice 11/04/13 documented as of this encounter
--- OUTSIDE RECORDS SUMMARY | 2021-11-12 14:48 | XMS_ITS | Encounter Summary ---
:1950 Author Organization [place] Address [facility] [place] [address] Care Team Providers Name Role Phone Unavailable Primary Care Provider Unavailable Encounter Details Date Type Department Care Team Description 08/23/[address] [facility] Results Carlos simmons PA-C [facility] [address] [facility] [address] [place] [address] (Wo rk) Social History Tobacco Use Types Packs/Day Years Used Date Never Assessed Sex Assigned at Date Recorded Not on file documented as of this encounter Plan of Treatment Not on filedocumented as of this encounter Procedures Procedure Name Priority Date/Time Associated Comments Diagnosis HEMOGLOBIN Routine 08/23/2010 7:30 AM Results f or this CDT procedure are i n the results section. BASIC METABOLIC Routine 08/23/2010 7:30 AM Result s for this PANEL CDT procedure are i n the results section. documented in this encounter Results (ABNORMAL) Hemoglobin (08/23/2010 7:30 AM CDT) athologist Signature Hemoglobin 10.4 (L) 11.7 - 15.7 [place] g/dL [facility] Specimen Anatomical Collection Method Collection Time Receive d Time (Source) Location / / Volume Laterality 08/23/2010 7:30 AM 1 7:38 CDT AM CDT Maame Chaparro PA-C LAB - BLOOD ORDERABLES Performing Organization Address City/State/ZIP Code Phon e Number [facility] [address] [place], [place] [address] [facility] (ABNORMAL) Basic metabolic panel (08/23/2010 7:30 AM CDT) P athologist Signature Sodium 138 133 - 144 [place] mmol/L [facility] Potassium 4.1 3.4 - 5.3 [place] mmol/L [facility] Chloride 108 94 - 109 [place] mmol/L [facility] Carbon Dioxide 26 20 - 32 [place] mmol/L [facility] Anion Gap 4 (L) 6 - 17 [place] mmol/L [facility] Glucose 101 (H) 60 - 99 [place] mg/dL [facility] Urea Nitrogen 7 7 - 30 [place] mg/dL [facility] Creatinine 0.69 0.52 [facility] 1.04 mg/dL [facility] GFR Estimate 87 >60 [place] mL/min/1.[address] LAB GFR Estimate If >90 >60 [place] Black mL/min/1.[address] [place] [address] LAB Calcium 8.3 (L) 8.5 - 10.4 [place] mg/dL [facility] Specimen Anatomical Collection Method Collection Time Receive d Time (Source) Location / / Volume Laterality 08/23/2010 7:30 AM 1 7:38 CDT AM CDT Maame Chaparro PA-C LAB - BLOOD ORDERABLES Performing Organization Address City/State/ZIP Code Phon e Number [facility] [address] [place], [place] [address] [facility] documented in this encounter Visit Diagnoses Not on filedocumented in this encounter
--- OUTSIDE RECORDS SUMMARY | 2021-11-12 14:48 | XMS_ITS | Encounter Summary ---
:1950 Author Organization [place] Address [address] [place] [address]. [place] [address] Care Team Providers Name Role Phone Idalmis Sloan Primary Care Provider Reason for Visit KIMBER Physical Therapy (Routine) - Denied Specialty Diagnoses / Procedures Referred By Contact Refer red To Contact Physical Therapy Diagnoses >4 s/p L rot cuff / mehdi lorenzana @ ortho / [employer] 30 visits per year Mehdi Gaffney MD Judd, Laurie, PT Procedures EXTREMITY INITIAL ORTHOPAEDIC AND K[facility]BER [facility] [address] [place] [address] [place] [address] Fax: Referral ID Status Reason Start Date Expiration Date Visits V isits Requested Authorized KIMBER/WC/PT/L Denied 06/11/2015 06/10/2016 14 0 SHLDR POST [id number] Encounter Details Date Type Department Care Team Description 06/14/2015 [facility] Sprain of left rotator cuff capsule, subsequent encounter (Primary Dx); Rehabilitation Services CORRINA Melissa Otnatacha r postprocedural status(V45.89) [facility] [address] [facility] [address] [place] [address] Social History Tobacco Use Types Packs/Day Years Used Date Never Assessed Sex Assigned at Date Recorded Not on file documented as of this encounter Plan of Treatment Not on filedocumented as of this encounter Procedures Procedure Name Priority Date/Time Associated Diagnosis Comme [facility] ZC THERAPEUTIC Routine 06/15/2015 6:45 AM Sprain of left rota tor EXERCISES CDT cuff capsule, subsequent encounter Other postprocedural status(V45.89) [facility] HOT OR COLD PACKS Routine 06/15/2015 6:45 AM Sprain of lef t rotator THERAPY CDT cuff capsule, subsequent encounter Other postprocedural status(V45.89) documented in this encounter Visit Diagnoses Diagnosis Sprain of left rotator cuff capsule, sub sequent encounter - Primary Other postprocedural status(V45.89) Other postprocedural status documented in this encounter Care Teams Nuclear Technician Relationship Specialty Start Date End Date Idalmis Sloan PCP - General Family Practice 11/04/13 documented as of this encounter
--- OUTSIDE RECORDS SUMMARY | 2021-11-12 14:48 | XMS_ITS | Encounter Summary ---
:1950 Author Organization [place] Address [facility] [place] [address] Care Team Providers Name Role Phone Idalmis Sloan Primary Care Provider Reason for Visit KIMBER Physical Therapy (Routine) - Denied Specialty Diagnoses / Procedures Referred By Contact Refer red To Contact Physical Therapy Diagnoses >4 s/p L rot cuff / mehdi lorenzana @ ortho / [employer]BS 30 visits per year Mehdi Gaffney MD Judd, Laurie, PT Procedures EXTREMITY INITIAL ORTHOPAEDIC AND KIMBER [facility] [id number] [place] [address] [address] [facility] [address] [place] [address] [place] [address] Fax: Referral ID Status Reason Start Date Expiration Date Visits V isits Requested Authorized KIMBER/WC/PT/L Denied 06/11/2015 06/10/2016 14 0 SHLDR POST [id number] Encounter Details Date Type Department Care Team Description 08/21/2015 Therapy Visit [facility] [place] Wheeler, PT Sprain of left rotator cuff capsule, sub sequent encounter (Primary Dx); [facility] Other postprocedural status(V45.89) Services [place] [id number] [place] [address] Specialty Care [place] [address] [address] [place], [place] [address] [address] [place] [address] Social History Tobacco Use Types Packs/Day Years Used Date Never Assessed Sex Assigned at Date Recorded Not on file documented as of this encounter Plan of Treatment Not on filedocumented as of this encounter Procedures Procedure Name Priority Date/Time Associated Diagnosis Comme nts [facility] NEUROMUSCULAR Routine 08/21/2015 3:47 PM Sprain of left ro tator RE-EDUCATION CDT cuff capsule, subsequent encounter Other postprocedural status(V45.89) [facility] THERAPEUTIC Routine 08/21/2015 3:47 PM Sprain of left rota tor EXERCISES CDT cuff capsule, subsequent encounter Other postprocedural status(V45.89) documented in this encounter Visit Diagnoses Diagnosis Sprain of left rotator cuff capsule, sub sequent encounter - Primary Other postprocedural status(V45.89) Other postprocedural status documented in this encounter Care Teams Upholstery Sewer Relationship Specialty Start Date End Date Idalmis Sloan PCP - General Family Practice 11/04/13 documented as of this encounter
--- OUTSIDE RECORDS SUMMARY | 2021-11-12 14:48 | XMS_ITS | Encounter Summary ---
:1950 Author Organization [place] Address [facility] [place] [address] Care Team Providers Name Role Phone Unavailable Primary Care Provider Unavailable Encounter Details Date Type Department Care Team Description 08/25/2010 Historic Notes INTERFACED REPORT Interface, Transcript onMD Social History Tobacco Use Types Packs/Day Years Used Date Never Assessed Sex Assigned at Date Recorded Not on file documented as of this encounter Progress Notes Interface, Dat Instructor - 12/02/2010 7:33 PM CDT Discharge Summary - Reason for Discharge Discharge from facility - Progress toward Goals partially met achieving short term goals/intermodal customer service goals - Barriers to achieving Limited tolerance for therapy goals - Comments Discharge home with assistance from and son - Continued Therapy No Recommended Signatures Bee Rodgers (PT)[Signed 15:50] Co Signer: Discharge Summary ABDULAZIZ VALDEZ (SPT)[Signed 15:29] Authored: Discharge Summary documented in this encounter Plan of Treatment Not on filedocumented as of this encounter Visit Diagnoses Not on filedocumented in this encounter
--- OUTSIDE RECORDS SUMMARY | 2021-11-12 14:48 | XMS_ITS | Encounter Summary ---
:1950 Author Organization [place] Address [facility] 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 [facility] (Primary Dx[facility] [address] [facility] [address] [place] [address] Social History Tobacco Use Types Packs/Day Years Used Date Never Assessed Sex Assigned at Date Recorded Not on file documented as of this encounter Plan of Treatment Not on filedocumented as of this encounter Procedures Procedure Name Priority Date/Time Associated Diagnosis Comme nts ZZC MANUAL THER Routine 08/01/2014 5:01 PM Midline low back pa in TECH,1+REGIONS,EA 15 MIN CDT with right-sided sciatica ZZC NEUROMUSCULAR Routine 08/01/2014 5:01 PM Midline low back pain RE-EDUCATION CDT with right-sided sciatica ZZC THERAPEUTIC EXERCISES Routine 08/01/2014 5:01 PM Midline l ow back pain CDT with right-sided sciatica ZZC ULTRASOUND THERAPY Routine 08/01/2014 5:01 PM Midline low back pain CDT with right-sided sciatica documented in this encounter Visit Diagnoses Diagnosis Midline low back pain with right-sided s ciatica - Primary documented in this encounter Care Teams Director Of Student Affairs Relationship Specialty Start Date End Date Idalmis Sloan PCP - General Family Practice 11/04/13 documented as of this encounter
--- OUTSIDE RECORDS SUMMARY | 2021-11-12 14:48 | XMS_ITS | Encounter Summary ---
:1950 Author Organization [place] Address [facility] [place] [address] Care Team Providers Name Role Phone Idalmis Sloan Primary Care Provider Encounter Details Date Type Department Care Team Description 11/12/2015 Therapy Visit [facility] [place] Saeed, PT Other postprocedural status(V45.89); Rehabilitation [facility] [place] Sprain of left rotator cuff capsule, sub sequent encounter Services [place] [id number] [place] [address] Specialty [address] Allen guzman [address] [facility] [address] [address] [place], [place] [address] [address] [place] [address] [phone] Social History Tobacco Use Types Packs/Day Years Used Date Never Assessed Sex Assigned at Date Recorded Not on file documented as of this encounter Progress Notes [place] Saeed, PT - 11/12/2015 3:34 PM CDT Subjective: HPI Objective: System Physical Exam General ROS Assessment/Plan: PROGRESS REPORT Progress reporting period is from 10-02-15 to 11-12-15 . SUBJECTIVE Subjective changes noted by patient: . Subjective: Returns to clinic with continued complaints of L shoulder pain and L arm weakness. Neck pain has improved (was advised by GP to see neurologist but patient cancelled appoint due to neck pain improvement). Current pain level is 4/10 . Previous pain level was 8/10 Initial Pain level: 8/10. Changes in function: Yes (See Goal flowsheet attached for changes in current functional level) Adverse reaction to treatment or activity: None OBJECTIVE Changes noted in objective findings: The objective findings below are from DOS 11-12-15. Objective: Cx ROM: REt=min to mod loss, Ext=min to mod loss, L Rot=mod loss, AROM L Shoulder: flex=90=, Ext=70, ABD=70, Ext/IR=L3, ER=30 (0 deg abd), MMT: L ER=3-/5, flex=3-/5, Abd=3-/5, PROM: [id number], joint creptation noted with painful movement, Byf=422, ER=45 ASSESSMENT/PLAN Updated problem list and treatment plan: Diagnosis 1: cervicalgia Pain - self management, education,directional preference exercise and home program Decreased ROM/flexibility - manual therapy and therapeutic exercise Decreased function - therapeutic activities Diagnosis 2: S/p L RCR Pain - manual therapy, self management, education, directional preference exercise and home program Decreased ROM/flexibility - manual therapy and therapeutic exercise Decreased joint mobility - manual therapy and therapeutic exercise Decreased strength - therapeutic exercise and therapeutic activities Impaired muscle performance - neuro re-education Decreased function - therapeutic activities STG/LTGs have been met or progress has been made towards goals: Yes (See Goal flow sheet completed today.) Assessment of Progress: The patient's condition is improving. Self Management Plans: Patient is independent in a home treatment program. Patient is independent in self management of symptoms. I have re-evaluated this patient and find that the nature, scope, duration and intensity of the therapy is appropriate for the medical condition of the patient. Krys continues to require the following intervention to meet STG and LTG's: PT Recommendations: This patient would benefit from continued therapy. Frequency: 2 X week, once daily Duration: for 2 months Please refer to the daily flowsheet for treatment today, total treatment time and time spent performing 1:1 timed codes. documented in this encounter Plan of Treatment Not on filedocumented as of this encounter Procedures Procedure Name Priority Date/Time Associated Diagnosis Comme nts [facility] NEUROMUSCULAR Routine 11/12/2015 3:40 PM Other postprocedu ral RE-EDUCATION CDT status(V45.89) Sprain of left rotator cuff capsule, subsequent encounter [facility] THERAPEUTIC Routine 11/12/2015 3:40 PM Other postprocedura l EXERCISES CDT status(V45.89) Sprain of left rotator cuff capsule, subsequent encounter documented in this encounter Visit Diagnoses Diagnosis Other postprocedural status(V45.89) Other postprocedural status Sprain of left rotator cuff capsule, sub sequent encounter documented in this encounter Care Teams Reimbursement Specialist Relationship Specialty Start Date End Date Idalmis Sloan PCP - General Family Practice 11/04/13 documented as of this encounter
--- OUTSIDE RECORDS SUMMARY | 2021-11-12 14:48 | XMS_ITS | Encounter Summary ---
:1950 Author Organization [place] Address [facility] [place] [address] Care Team Providers Name Role Phone Idalmis Sloan Primary Care Provider Reason for Visit [facility] Physical Therapy (Routine) - Denied Specialty Diagnoses / Procedures Referred By Contact Refer red To Contact Physical Therapy Diagnoses >4 s/p L rot cuff / mehdi lorenzana @ ortho / [employer] 30 visits per year Mehdi Gaffney MD Judd, Laurie, PT Procedures [facility]TREM[facility] [id number] [place] [address] [address] [facility] [address] [place] [address] [place] [address] Fax: Referral ID Status Reason Start Date Expiration Date Visits V isits Requested Authorized KIMBER/WC/PT/L Denied 06/11/2015 06/10/2016 14 0 [facility] POST [id number] Encounter Details Date Type Department Care Team Description 08/09/2015 Therapy Visit [facility] [place] Wheeler, PT Sprain of left rotator cuff capsule, sub sequent encounter (Primary Dx); Rehabilitation [facility] Other postprocedural status(V45.89) Services [facility] [id number] [place] [address] Specialty Care Allen [phone] [place], [place] [address] [address] [place] [address] Social History Tobacco Use Types Packs/Day Years Used Date Never Assessed Sex Assigned at Date Recorded Not on file documented as of this encounter Plan of Treatment Not on filedocumented as of this encounter Procedures Procedure Name Priority Date/Time Associated Diagnosis Comme nts [facility] NEUROMUSCULAR Routine 08/10/2015 10:23 AM Sprain of left r otator RE-EDUCATION CDT cuff capsule, subsequent encounter Other postprocedural status(V45.89) [facility] THERAPEUTIC Routine 08/10/2015 10:23 AM Sprain of left rot ator EXERCISES CDT cuff capsule, subsequent encounter Other postprocedural status(V45.89) documented in this encounter Visit Diagnoses Diagnosis Sprain of left rotator cuff capsule, sub sequent encounter - Primary Other postprocedural status(V45.89) Other postprocedural status documented in this encounter Care Teams Roving Department End Finder Relationship Specialty Start Date End Date Idalmis Sloan PCP - General Family Practice 11/04/13 documented as of this encounter
--- OUTSIDE RECORDS SUMMARY | 2021-11-12 14:48 | XMS_ITS | Encounter Summary ---
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 [place] [facility] [place] (Primary Dx) [facility] [address] [facility] [address] [place] [address] Social History Tobacco Use Types Packs/Day Years Used Date Never Assessed Sex Assigned at Date Recorded Not on file documented as of this encounter Plan of Treatment Not on filedocumented as of this encounter Procedures Procedure Name Priority Date/Time Associated Diagnosis Comme nts [facility] MANUAL THER Routine 07/25/2014 4:49 PM Midline low back pa in TECH,1+REGIONS,EA 15 MIN CDT with right-sided sciatica [facility] NEUROMUSCULAR Routine 07/25/2014 4:49 PM Midline low back pain RE-EDUCATION CDT with right-sided sciatica [facility] THERAPEUTIC EXERCISES Routine 07/25/2014 4:49 PM Midline l ow back pain CDT with right-sided sciatica documented in this encounter Visit Diagnoses Diagnosis Midline low back pain with right-sided s ciatica - Primary documented in this encounter Care Teams Torch Straightener And Heater Relationship Specialty Start Date End Date Idalmis Sloan PCP - General Family Practice 11/04/13 documented as of this encounter
--- OUTSIDE RECORDS SUMMARY | 2021-11-12 14:48 | XMS_ITS | Encounter Summary ---
:1950 Author Organization [place] Address [facility] [place] [address] Care Team Providers Name Role Phone Unavailable Primary Care Provider Unavailable Encounter Details Date Type Department Care Team Description 08/23/2010 Historic Notes INTERFACED REPORT Israel Schwab RN [facility] [address] [place], [place] [address] (Wo rk) Social History Tobacco Use Types Packs/Day Years Used Date Never Assessed Sex Assigned at Date Recorded Not on file documented as of this encounter Progress Notes Israel Schwab E - 12/02/2010 7:36 PM CDT Interval History/Chief Complaint - Chief Complaint: Patient very sleepy during exam, not able to get a good answer. She did say she was nauseated this morning. - Interval History: Patient has been sleepy on/off during her stay after surgery. She continues to rank her pain high and ask for additional pain meds, despite being sleepy. Review of Systems - Constitutional Sleepy Comments: - Musculoskeletal Lumbar spine back pain. Comments: - Respiratory: Negative - Cardiovascular: Negative - Neuro Comments: Baseline neuropathy. Physical Exam - General: Sleey, difficult to arouse. - Lungs: Clear to asculation bilaterally. All lobes. Diminished bilateral bases. - Cardiovascular: Normal S1 & S2. No murmur appreciated. - Neuro: alert to self and situation and date, not clear on the time. Muscle strength +5/5 bilateral lower extremities. Vital Signs/Labs/Imaging/Culture Review - Vital Signs: Vital Signs reviewed past 24 hours. - Lab Results: All lab results reviewed past 24 hours. - Imaging Results: All imaging results reviewed past 24 hours. Pain Score and Medications - Pain Intensity Score: did not ask a numeric pain score - Current Medications Tylenol 1000 mg Q 8 hours scheduled Pertinent for Pain Vistaril 25-50 mg Q 6 hours scheduled (has been Management: getting the 50mg dose) Dilaudid FLIGHT DECK OFFICER 0.1-0.2 Q 6 min CR 0.1-0.2 mg HL 1.5 (used 23.7 mg in the last 24 hours) Assessment and Plan - Assessment/Plan: Assessment: Patient here POD #2 after a decompression of L2-L3 and L4-L5 and posterior spine fusion of L2-L3 and L4-L5. Continues to have somatosensory type post-op pain with some neuropathic features. Patient also having more sedation, difficulty to arouse. Plan: 1. Changed patient over to oral pain meds. Due to sedation, I moved her back to her baseline methadone dose (5 mg BID). 2. Gave her a larger PRN dose due to somewhat under dosing the methadone. Oxycodone 15-20 mg Q 3 hours. This will give the nurses larger control over the PRN meds instead of giving more methadone and potentially making the problem with sedation worse. 3. Continue Visteral and Flexeril PRN 50 minutes spent with patient > 50% education and coordination of care Signatures ISRAEL SCHWAB (SPEAKING UNIT ASSEMBLER)[Signed 14:10] Authored: Interval History/Chief Complaint, Review of Systems, Physical Exam, Vital Signs/Labs/Imaging/Culture Review, Pain Score and Medications, Assessment and Plan documented in this encounter Plan of Treatment Not on filedocumented as of this encounter Visit Diagnoses Not on filedocumented in this encounter
--- OUTSIDE RECORDS SUMMARY | 2021-11-12 14:48 | XMS_ITS | Encounter Summary ---
:1950 Author Organization [place] Address [facility] [place] [address] Care Team Providers Name Role Phone Nathalia Vijaya Primary Care Provider Encounter Details Date Type Department Care Team Description 11/15/2014 Therapy Visit [facility] [place] Left sh ouldnazario pain Rehabilitation Services LEGAL COUNSEL (Apoorva womack Dx) [facility] [address] [facility] [address] [place] [address] Social History Tobacco Use Types Packs/Day Years Used Date Never Assessed Sex Assigned at Date Recorded Not on file documented as of this encounter Plan of Treatment Not on filedocumented as of this encounter Procedures Procedure Name Priority Date/Time Associated Diagnosis Comme nts [facility] THERAPEUTIC Routine 11/15/2014 4:06 PM Left shoulder pain ACTIVITIES CDT [facility] NEUROMUSCULAR Routine 11/15/2014 4:06 PM Left shoulder josefina n RE-EDUCATION CDT Z THERAPEUTIC EXERCISES Routine 11/15/2014 4:06 PM Left shou lder pain CDT documented in this encounter Visit Diagnoses Diagnosis Left shoulder pain - Primary Pain in joint, shoulder region documented in this encounter Care Teams Scrap Yard Worker Relationship Specialty Start Date End Date Idalmis Sloan PCP - General Family Practice 11/04/13 documented as of this encounter
--- OUTSIDE RECORDS SUMMARY | 2021-11-12 14:48 | XMS_ITS | Encounter Summary ---
:1950 Author Organization [place] Address [address] [place] [address] Care Team Providers Name Role Phone Idalmis Sloan Primary Care Provider Encounter Details Date Type Department Care Team Description 09/05/2015 Therapy Visit [facility] [place] Saeed PT Sprain of left rotator cuff capsule, sub sequent encounter (Primary Dx); Rehabilitation [facility] Other postprocedural status(V45.89) Services [address] Specialty Care Allen guzman [address] [facility] [address] [place], [place] [address] [address] [place], [place] [address] Social History Tobacco Use Types Packs/Day Years Used Date Never Assessed Sex Assigned at Date Recorded Not on file documented as of this encounter Plan of Treatment Not on filedocumented as of this encounter Procedures Procedure Name Priority Date/Time Associated Diagnosis Comme nts [facility] NEUROMUSCULAR Routine 09/05/2015 3:16 PM Sprain of left ro tator RE-EDUCATION CDT cuff capsule, subsequent encounter Other postprocedural status(V45.89) [facility] THERAPEUTIC Routine 09/05/2015 3:16 PM Sprain of left rota tor EXERCISES CDT cuff capsule, subsequent encounter Other postprocedural status(V45.89) documented in this encounter Visit Diagnoses Diagnosis Sprain of left rotator cuff capsule, sub sequent encounter - Primary Other postprocedural status(V45.89) Other postprocedural status documented in this encounter Care Teams Billing Auditor Relationship Specialty Start Date End Date Idalmis Sloan PCP - General Family Practice 11/04/13 documented as of this encounter
--- OUTSIDE RECORDS SUMMARY | 2021-11-12 14:48 | XMS_ITS | Encounter Summary ---
:1950 Author Organization [place] Address [facility] [place] [address] Care Team Providers Name Role Phone Unavailable Primary Care Provider Unavailable Encounter Details Date Type Department Care Team Description 08/22/2010 Historic Notes INTERFACED REPORT Interface, Transcript on, Social History Tobacco Use Types Packs/Day Years Used Date Never Assessed Sex Assigned at Date Recorded Not on file documented as of this encounter Progress Notes Interface, Safety Compliance Specialist - 12/02/2010 7:39 PM CDT Patient Status - Physical status Stable (s/s of potential complications absent or manageable) - Psychosocial status Stable Discharge Planning - Discharge From: [facility] - Patient Care Unit: ms 2 - PCU - Discharge To: Home/Alternative home - Method of discharge: Wheel Chair - Transportation: Private Discharge Information - Discharge information Discharge instructions reviewed with pt/family/so; Patient verbalized understanding. - Mode of Travel Wheelchair Medications and Prescriptions - Medications and Prescriptions given to patient Perscriptions Prescriptions given to patient to be filled. Special Care Needs and Instructions - Diet Instructions: As tolerated. Drink plenty of water daily to keep well hydrated. - Activity Per Physical Therapy Instructions: - Symptoms/Problems to 1. Increased redness, inflammation, localized look for at home- warmth and swelling, or tenderness at incision call the physician site. about: 2. Increased pain not controlled with oral pain medications. 3. Opening or pulling apart of the incision. 4. Fever greater than 100 degrees, body chills or excessive sweating. 5. If no bowel movement in 3 days or constipation try Milk of Magnesia, Fleets enema or another over the counter remedy. 6. Generalized feeling of illness. - Who patient should Dr Comer call: - Additional Inspect incision daily for above listed instructions for signs/symptoms of infection. wound care: - Additional Changed instructions for dressings: Other Discharge Education, Materials, and Instructions - Other Education, Thank you for allowing [facility] to Materials, and participate in your cares!!! Instructions: [facility] is committed to providing excellent care to our patients. You may receive a survey in the mail about your experience with us and we would appreciate your response. Your feedback is critical in assisting us to continually improve our service. Follow Up Care - Physician/clinician Dr Comer name: KAYLEIGH Curtis (RN)[Signed 13:28] Authored: Medications and Prescriptions, Special Care Needs and Instructions DORIS MEDRANO (RN)[Signed 08:07] Authored: Patient Status, Discharge Planning, Discharge Information, Medications and Prescriptions, Special Care Needs and Instructions, Other Discharge Education, Materials, and Instructions, Follow Up Care Interface, Safety Compliance Specialist - 12/02/2010 7:39 PM CDT General Information - Patient Profile See Profile for full history and prior level of Review: function - Onset Date: - Referring Physician: Dr. Jose Comer - Patient/Family Goals: to return home at discharge - History of Present spinal stenosis and spondylolisthesis. S/P Problem: decompression and PSF L2-3 and L4-5. PMH- hx. MRSA, chronic pain-on methadone, reflux, HTN, hyperlipidemia, PVD - Treatment Diagnosis: weakness, impaired gait and mobility, needing assist with transfers - Precautions/Limitati_ brace when out of bed ons: - Weight Bearing No weight bearing restrictions Status: Cognitive Status - Orientation: orientation to person, place and time - Level of alert Consciousness: - Follows Commands and 100% of the time; able to follow single-step Answers Questions: instructions - Personal Safety and intact Judgment: Pain - Pain: -09/08 Posture - Posture: Posture was appropriate Range of Motion - Comment: demo's adequate LE ROM for mobility Strength - Comments: good quad sets bilaterally Bed Mobility: Rolling/Turning - Level of stand-by assist Chandler: Bed Mobility: Scooting/Bridging - Level of stand-by assist Chandler: Bed Mobility: Sit to Supine - Level of stand-by assist Chandler: Bed Mobility: Supine to Sit - Level of stand-by assist Chandler: Bed Mobility Analysis - Impairments pain Contributing to Impaired Bed Mobility: Transfer: Sit to Stand - Level of CGA Chandler: - Physical verbal cues; supervision Assist/Nonphysical Assist: Transfer: Stand to Sit - Level of stand-by assist Chandler: Gait Skills - Level of minimum assist (75% patients effort) Chandler: - Physical verbal cues Assist/Nonphysical Assist: - Assistive Device: BLOCK SAWYER and IV pole - Gait Distance: 20' to door and back Gait Analysis - Gait Pattern Used: swing-to gait - Gait Deviations decreased jeffery; decreased step length Noted: - Impairments pain Contributing to Gait Deviations: Balance Skills Assessment - Sitting Balance: independent Static: - Sitting Balance: independent Dynamic: - Rfg-jm-[id number] Balance: minimum assist (75% patients effort) - Standing Balance: minimum assist (75% patients effort) Static: - Standing Balance: minimum assist (75% patients effort) Dynamic: Sensation - Comments: reports some numbness and tingling from neuropathy B feet but able to feel light touch Treatment Plan - Treatments: Gait Training, Transfer Training, Bed Mobility Training, Strengthening, Lumbar Stabilization Techniques Clinical Impression - Skilled Criteria for Yes Therapy Intervention Met: - PT Practice Pattern: Musculoskeletal - Assessment: The patient will benefit from skilled Physical Therapy for gait and transfer training, therapeutic exercise, and education on posture and body mechanics s/p decompression and posterior lumbar spinal fusion L2-3 and L4-5. Currently min A to CGA for mobility. Anticiapte return home with and son assist. Patient has a walker, SEC, shower chair. - Rehabilitation Good, to achieve stated therapy goals Potential (see POC for therapy goals): - Demonstrates need for OT referral to another service: - Predicted Duration of 3-5 days Therapy: - Predicted Frequency BID of Therapy: - Discharge Home with assist Destination: - Anticipated Equipment elastic laces and a adjunct professor of law at Discharge: - Risks and Benefits of Yes Treatment have been explained.: - Patient, family Yes and/or staff in agreement with Plan of Care: Caity Steven (PT)[Signed 09:06] Authored: General Information, Cognitive Status, Pain, Posture, Range of Motion, Strength, Bed Mobility: Rolling/Turning, Bed Mobility: Scooting/Bridging, Bed Mobility: Sit to Supine, Bed Mobility: Supine to Sit, Bed Mobility Analysis, Transfer: Sit to Stand, Transfer: Stand to Sit, Gait Skills, Gait Analysis, Balance Skills Assessment, Sensation, Treatment Plan, Clinical Impression Interface, Safety Compliance Specialist - 12/02/2010 7:38 PM CDT SH - Responded to referral per pt. request for emotional support. Pt. is recovering from back surgery, and she says it went very well, expresses gratitude for Dr. Comer's skill and the quality of care she has received from nursing staff. 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 Pt. is originally from [place], [place] where she was a [facility] [employer], has not found a new aisha home since moving to [place], [place] but says she attends chapel at [facility] occasionally. Pt.'s family have not been able to visit due to a wedding in [place], but said her should be back in time for discharge. Offered active listening, emotional support, prayed for comfort and healing and gave thanks for successful surgery. Will follow up if needs arise. [Signature] Author: MARY ELIAS (Head Holder Obstetrics Gyn Physician) [Signed 10:25] documented in this encounter Plan of Treatment Not on filedocumented as of this encounter Visit Diagnoses Not on filedocumented in this encounter
--- OUTSIDE RECORDS SUMMARY | 2021-11-12 14:48 | XMS_ITS | Encounter Summary ---
:1950 Author Organization [place] Address [facility] [place] [address] Care Team Providers Name Role Phone Unavailable Primary Care Provider Unavailable Encounter Details Date Type Department Care Team Description 08/16/2010 Historic Notes INTERFACED REPORT Interface, Transcript on, Social History Tobacco Use Types Packs/Day Years Used Date Never Assessed Sex Assigned at Date Recorded Not on file documented as of this encounter Progress Notes Interface, Machined Parts Metal Sprayer - 12/02/2010 7:47 PM CDT General Information - How to be Addressed Yola - Source of Information patient - Patient Belongings clothing; glasses; walker and cane - men's furnishings salesperson #1: Sachin - Relationship to patient #1: - Phone 1: [phone] - men's furnishings salesperson #2: Sabiha Burgess - Relationship to sister patient #2: - Phone 1: [phone] - Patient's spoken language; Macedonian or Bilingual communication style Advance Directive - Do you have an Yes Advanced Health Care Directive? - Directive Location: Copy in Chart - Validation of Advance Reviewed and valid, Chaplain [facility] Directive:(Pt 18+ & document is signed, dated, and witnessed or notarized) Health and Illness - Reason for visit as lumbar fusion and decompression Stated by Patient - Previous Reaction to none Anesthesia - Blood none Avoidance/Restrictio_ ns - Previous Blood not sure Transfusion Role Relationships/Living Environment - Limitations on none Visitors/Phone Calls/TV - Lives With spouse - Living Arrangements house - Home Accessibility stairs (1 railing present); stairs to enter home; stairs w/i home; tub/shower is not walk in - Number of Stairs to 12 Enter Home - Number of Stairs 12 Within Home Substance Use - Tobacco Use Currently uses tobacco, smoking cessation information given - Tobacco Form Cigarettes - Tobacco Amount Smokes less than 1/2 ppd (Cigarrettes) - Caffeine Use Yes - Caffeine Type Coffee; Pop/soda - Caffeine Amount < 3 cups/day - Alcohol Use current alcohol use - Alcohol Frequency 2-3 times/wk - Alcohol Amount 1-2 drinks - History of street No drug/inhalant/ medication abuse Review of Systems - Neurological none Conditions/Symptoms - Preferred Pain Scale numerical 0-10 - Pain: Unable to assess with numeric scale Comfort/Acceptable Pain Level (0-10) - Chronic Pain yes, right foot - Chronic Pain Duration 5 years - Problem Sleeping awakens in the middle of the night - Equipment/Aids/Routi_ medication heather for Sleep - Head none Conditions/Symptoms - Eye visual acuity: decreased Conditions/Symptoms - Ear none Conditions/Symptoms - Nose none Conditions/Symptoms - Mouth/Throat/Neck none Conditions/Symptoms - Dental Care yes - Device/Implant glasses - Cardiac high cholesterol Conditions/Symptoms - Peripheral/Neurovasc_ neuropathy; neuropathy feet and legs ular Conditions/Symptoms - Respiratory none Conditions/Symptoms - Diet Regular - Nutrition Risk Screen No risk indicators present - GI constipation; GERD Conditions/Symptoms - none Conditions/Symptoms - Musculoskeletal back pain; joint pain/swelling; decreased ROM Conditions/Symptoms - Ambulation 1 - Requires assistive equipment for ambulation - Transferring 0 - Independent with transfers - Toileting 0- Independent with toileting - Bathing 0- Independent with bathing - Dressing 0- Independent with dressing - Eating 0- Independent with eating - Swallowing no swallowing issues reported - Cognition no cognition issues reported - Communication/speech no speech or language problems - Fall history within Yes last six months - Number of times 1 - Which of the above ambulation functional risks had a recent onset or change? - Skin none reported Conditions/Symptoms - Endocrine none Conditions/Symptoms - Hematological none Conditions/Symptoms - Immune /Infections none - Influenza vaccine N/A; Not currently flu season (05/31 - 10/30) - Pneumococcal Vaccine never immunized, states she would like vaccine and will take before she is discharged - Pneumococcal Vaccine none of the above indications Indications - offer year round (Check all that apply) - Recent Exposure to none Communicable Disease - Oncology none Conditions/Symptoms - Mental Health none Conditions/Symptoms Skin Inspection - Skin Inspection: WDL: color consistent w/ ethnicity; no abnormality in temperature, moisture, turgor, integrity Coping Stress/Abuse - Major none Change/Loss/Stressor - QUESTION TO PATIENT: No Has a member of your family or a partner(now or in the past) intimidated, hurt, manipulated, or controlled you in any way? - NURSE OBSERVATION: Is No there reason to believe there has been maltreatment of a vulnerable adult (ie. Physical/Sexual/Emot_ ioanl abuse, self neglect, lack of adequate food, long-term, medical care, or financial exploitation)? Values/Beliefs/Spiritual Care - C: Community: In hospital burning machine operator support of your spiritual health, is there someone we may contact for you? (identify all that apply) Learning Assessment - Factors Influencing no factors identified Readiness to Learn - Factors that Impact none Ability to Learn - Learning Preferences skill demonstration; written material - Cultural none Considerations - Developmental none Considerations - Baptist none Considerations Mutuality/Individual Preferences - What information none would help us give you more personalized care? Signatures KAYLEIGH MAX (RN)[Signed 15:03] Authored: General Information, Skin Inspection, Coping Stress/Abuse Rosario Prado (Meter/Relay Craftsman)[Signed 17:38] Authored: Advance Directive JOSE BROWN (RN)[Signed 14:31] Authored: General Information, Advance Directive, Health and Illness, Role Relationships/Living Environment, Substance Use, Review of Systems, Coping Stress/Abuse, Values/Beliefs/Spiritual Care, Learning Assessment, Mutuality/Individual Preferences HARINI RICHMOND (RN)[Signed 15:26] Authored: Review of Systems documented in this encounter Plan of Treatment Not on filedocumented as of this encounter Visit Diagnoses Not on filedocumented in this encounter
--- OUTSIDE RECORDS SUMMARY | 2021-11-12 14:48 | XMS_ITS | Encounter Summary ---
:1950 Author Organization [place] Address [address] [facility] [place] [address] Care Team Providers Name Role Phone Idalmis Sloan Primary Care Provider Encounter Details Date Type Department Care Team Description 06/03/2015 Telephone [facility] Nurse Sabiha Shelton , RN [facility] [address] [phone] Social History Tobacco Use Types Packs/Day Years Used Date Never Assessed Sex Assigned at Date Recorded Not on file documented as of this encounter Miscellaneous Notes Telephone Encounter - Sabiha Shelton, RN - 06/03/2015 3:16 PM CDT Call Type: Triage Call Presenting Problem: Pt noting blood in urine, burning with urination and fullness lower abdomen since 11A-12 today. Triage Note: Guideline Title: Bloody Urine ; Urinary Symptoms - Female Recommended Disposition: See Provider within 8 Hours Original Inclination: Wanted to speak with a nurse Override Disposition: Intended Action: Go to Urgent Care Center Physician Contacted: No Urinary tract symptoms AND any flank, low back, lower abdominal or genital area (labia, vagina OR testicle/scrotum) pain ? YES New or worsening signs and symptoms that may indicate shock ? NO Injury to flank area or abdomen AND visible mass/swelling; bruise-like discoloration in flank area, or above pubic bone; or pure bloody urine ? NO [place] something pass with urination ? NO Unbearable flank, low back or lower abdominal pain ? NO Any temperature elevation in an immunocompromised individual OR frail elderly ? NO Passing blood clots with urination ? NO Current or recent urinary tract instrumentation AND having more bleeding OR bleeding is lasting longer than expected as defined by provider's follow-up precautions ? NO New or worsening signs and symptoms that may indicate shock ? NO Physician Instructions: Care Advice: Another adult should drive. List, or take, all current prescription(s), nonprescription or alternative medication(s) to provider for evaluation. Total water intake includes drinking water, water in beverages, and water contained in food. Fluids make up about 80% of the body's total hydration need. Individual fluid requirement to maintain hydration vary based on physical activity, environmental factors and illness. Limit fluids that contain sugar, caffeine, or alcohol. Urine will be very light yellow color when you drink enough fluids. Analgesic/Antipyretic Advice - Acetaminophen: Consider acetaminophen as directed on label or by pharmacist/provider for pain or fever. PRECAUTIONS: - Use if there is no history of liver disease, alcoholism, or intake of three or more alcohol drinks per day - Only if approved by provider during or when - Do not exceed recommended dose or frequency. Do not take more than 3000 milligrams (mg) in 24 hours. Do not take this medicine for more than 10 days unless recommended by your provider. - During , acetaminophen should not be taken more than 3 consecutive days without telling provider - To make sure you don't take too much, check other medicines you take to see if they also contain acetaminophen. documented in this encounter Plan of Treatment Not on filedocumented as of this encounter Visit Diagnoses Not on filedocumented in this encounter Care Teams Crayon Sawyer Relationship Specialty Start Date End Date Idalmis Sloan PCP - General Family Practice 11/04/13 documented as of this encounter
--- OUTSIDE RECORDS SUMMARY | 2021-11-12 14:48 | XMS_ITS | Encounter Summary ---
:1950 Author Organization [place] Address [address] [place] [address]. [place] [address] Care Team Providers Name Role Phone Idalmis Sloan Primary Care Provider Reason for Visit KIMBER Physical Therapy (Routine) - Denied Specialty Diagnoses / Procedures Referred By Contact Refer red To Contact Physical Therapy Diagnoses >4 s/p L rot cuff / mehdi lorenzana @ ortho / [employer] 30 visits per year Mehdi Gaffney MD Judd, Laurie, PT Procedures EXTREMITY INITIAL ORTHOPAEDIC AND [facility] [address] [place] [address] [place] [address] Fax: Referral ID Status Reason Start Date Expiration Date Visits V isits Requested Authorized KIMBER/WC/PT/L Denied 06/11/2015 06/10/2016 14 0 [facility] POST [id number] Encounter Details Date Type Department Care Team Description 08/07/2015 Therapy Visit [facility] Artie, Sprain of left rotator cuff capsule, subsequent encounter (Primary Dx); Rehabilitation Services CORRINA Melissa Otnatacha r postprocedural status(V45.89) [facility] [address] [facility] [address] [place] [address] Social History Tobacco Use Types Packs/Day Years Used Date Never Assessed Sex Assigned at Date Recorded Not on file documented as of this encounter Plan of Treatment Not on filedocumented as of this encounter Procedures Procedure Name Priority Date/Time Associated Diagnosis Comme brissa ZZC NEUROMUSCULAR Routine 08/09/2015 1:35 PM Sprain of left ro tator RE-EDUCATION CDT cuff capsule, subsequent encounter Other postprocedural status(V45.89) [facility] HOT OR COLD PACKS Routine 08/09/2015 1:35 PM Sprain of lef t rotator THERAPY CDT cuff capsule, subsequent encounter Other postprocedural status(V45.89) Z THERAPEUTIC Routine 08/09/2015 1:35 PM Sprain of left rota tor EXERCISES CDT cuff capsule, subsequent encounter Other postprocedural status(V45.89) documented in this encounter Visit Diagnoses Diagnosis Sprain of left rotator cuff capsule, sub sequent encounter - Primary Other postprocedural status(V45.89) Other postprocedural status documented in this encounter Care Teams Acetone Recovery Worker Relationship Specialty Start Date End Date Idalmis Sloan PCP - General Family Practice 11/04/13 documented as of this encounter
--- OUTSIDE RECORDS SUMMARY | 2021-11-12 14:48 | XMS_ITS | Encounter Summary ---
:1950 Author Organization [place] Address [address] [place] [address]. [place] [address] Care Team Providers Name Role Phone Unavailable Primary Care Provider Unavailable Reason for Visit Reason Onset Date Comments Nurse Advice Line 07/18/2011 Encounter Details Date Type Department Care Team Description 07/18/2011 Telephone [facility] DEPT FOR [facility]W None Nurse Ad vice Line Social History Tobacco Use Types Packs/Day Years Used Date Never Assessed Sex Assigned at Date Recorded Not on file documented as of this encounter Miscellaneous Notes Telephone Encounter - Waleska Alcaraz - 01/16/2012 7:49 PM CST [facility] Triage Call Report Patient Name: Krys Mosher Call Date & Time: 07/18/2011 8:05:57PM Patient PCP Name: Idalmis Sloan MRN: Patient Address: [address] [address] Patient Date of : 1950 Age: 61 yr. 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 Red, painful, swollen. Went to a foot doctor amonth ago who shaved off a callus and a few days ago little right toe started getting red; now looks infected she states. Refuses ER due to high deductible and insurance problems; and wants to see if MD corporate communications specialist would call in an ABX. Is allergic to : cipro possibly; sulfa and augmentin. Can take Keflex and levoquin she states. I called Dr. Chacon and he allowed me to call in an Rx Keflex po 500mg TID x7days. I called this into [facility] in [place]. This note will be faxed to [place] office; please ATTN: Dr. Scheid. Triage Note: Guideline Title: Toe / Toenail Injury Recommended Disposition: Override Disposition: See Provider within 24 hours Call Provider Immediately Question Response Question Note Cut, abrasion, laceration or puncture wound is the primary No concern Burn injury No Injury to toe including: complete or partial amputation, No bone protruding through skin, penetrating, crushing or high pressure injury New onset severe pain and pale, discolored or cool below No the injury compared to the other extremity Orthopedic hardware (metal plate, mary or screw) newly No bulging under or through skin Obvious new deformity (odd angle or obvious No misalignment) Stepped on nail or other sharp object that penetrates No through skin Foreign body that can't be removed No Nail completely torn off or hanging OR hematoma under No more than half of nail OR small hematoma with severe pain New severe pain Yes New marked swelling (twice normal size) No New onset mild to moderate pain that has not improved No with 24 hours of home care Mild to moderate pain with weight bearing or walking and No stops with rest Soreness/irritation of area around nail No Bruising (blood collected) under a nail No All other situations No Physician Contacted: Physician Instructions: No Care Advice: - Call provider if symptoms worsen or new symptoms develop. - Limit weight-bearing activity until evaluated by provider. Avoid movements or exercises that aggravate symptoms, such as jogging, stair-climbing, prolonged standing, etc. MEDICAL HISTORY Conditions: Condition Note: .Other Edema Osteoporosis High Cholesterol Reflux Medication: Medication Note: .Other - RX Med, not on list Potassium, Furosemide,omeprazole, Ca w Vit D, MVI, Fosomax, Nasal spray for allergies, Allergy: Reaction: .Other .Other Augmentin Hives Cipro Hives Sulfa Hives Procedure: Procedure Note: .Other right foot surgery 2006 OR RECTIFIER documented in this encounter Plan of Treatment Not on filedocumented as of this encounter Visit Diagnoses Not on filedocumented in this encounter
--- OUTSIDE RECORDS SUMMARY | 2021-11-12 14:48 | XMS_ITS | Encounter Summary ---
:1950 Author Organization [place] Address [facility] [place] [address] Care Team Providers Name Role Phone Unavailable Primary Care Provider Unavailable Encounter Details Date Type Department Care Team Description 08/21/[address] [facility] Idalmis Schwab, Hospital Results RN [facility] [address] [place], [place] [address] (Wo rk) Social History Tobacco Use Types Packs/Day Years Used Date Never Assessed Sex Assigned at Date Recorded Not on file documented as of this encounter Progress Notes Idalmis Schwab E - 09/04/2010 12:55 PM CDT FINAL PAIN MANAGEMENT CONSULTATION REQUESTING PHYSICIAN: Saima Patiño PA-C HISTORY OF PRESENT ILLNESS: Krys Mosher is a 60-year-old female with previous fusion of L3-L4. Also,with spinal stenosis of L2-3 and L4-L5 and spondylolisthesis of L2-L3 and L4-L5. She is here for decompression of L2-L3 and L4-L5 and for posterior spine fusion of L2-L3 and L4-L5. Patient describes her pain as a sharp shooting pain in her lumbar spine area and also a dull ache that does not go away. At this point in time, patient is pretty sleepy, difficult to have a conversation with so it took awhile to actually get that description for her current pain. Patient does have chronic back pain and she has been on chronic opioids for this pain. I did view the prescription monitoring program and foundthat it does look like she is getting the methadone and the Vicodin prescribed from the same nurse practitioner, Sherry Arambula of the [facility]. It does not appear that she has multipleprescribers. From what I am seeing, it looks like she would normally take closer to 3 methadone a day, although she is reporting that she takes methadone 5 mg 2 times a day and I also see that with theVicodin, it is variable but I would guess that she is using about 6 of them a day, sometimes more. PAST MEDICAL HISTORY: 1. Osteoporosis. 2. Chronic pain. As mentioned above, she is followed by a pain clinic and that would be [facility] that is located in [place]. 3. Esophageal reflux. 4. Tobacco use. 5. Hypertension. 6. Hyperlipidemia. 7. Peripheral vascular disease. 8. 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 9. Hepatitis C. PAST SURGICAL HISTORY: She had a cervical laminectomy foraminotomy fusion. She has had bilateral knee arthroscopies. She has had multiple right foot surgeries where she has had history of MRSA. She hashad lumbar fusions in the past. She has had Mani fundoplication. She has had a ALEJANDRO and BSO. She has had a tonsillectomy, cholecystectomy, appendectomy. ALLERGIES: Cipro, lorazepam, Augmentin, sulfa and morphine. MEDICATIONS prescribed here: Colace 100 mg b.i.d. She is on a MANUFACTURING DESIGN ENGINEER Dilaudid. She can have 0.1-0.2 q.6minutes with a continuous rate of 0.1-0.2 for an hour limit of 1.5. She has not taken any other medswhile here. REVIEW OF SYSTEMS: Please see the [facility] adult patient profile done by Amanda Cardoso on 08/16 at around 1430. LABORATORY AND IMAGING: There has only been a lumbar spine x-ray that was done here that shows bilateral transpedicular screws, now demonstrated on, L2, L3, L4 and L5 with accompanying mary instrumentation, a wide laminectomy at L4 and L5. Her labs done preop are all within normal limits. They are in the chart. PHYSICAL EXAMINATION: VITAL SIGNS: Her temperature is 96.6 axillary, pulse 73, blood pressure 123/78, respirations 12. Sheis 96% on 3 liters. GENERAL: Patient is sleepy/sedated, difficult to hold a conversation with so I ended up talking with her mostly. HEENT: Head normocephalic, atraumatic. Pupils equal, round, reactive to light. Oral mucosa dry. NECK: Supple, no lymphadenopathy noted. CARDIOVASCULAR: Regular rate and rhythm, no murmur appreciated. RESPIRATORY: Lung sounds clear bilaterally, all lobes. ABDOMEN: Nontender, nondistended, difficult to auscultate bowel sounds, nontender. MUSCULOSKELETAL: Did not do spine or back exam due to patient being just recently postop. NEUROLOGIC: Muscle strength +5/5 all 4 extremities. Patient does not have any numbness or tingling in her lower extremities per what she is reporting, although she kept falling asleep during that conversation. ASSESSMENT: This is a 60-year-old female here status post decompression of L2-L3 and L4-L5 and posterior spine fusion of L2-L3 and L4-L5. Patient is sedated now, but does have pain meds ordered per MANUFACTURING DESIGN ENGINEER. Patient having somatosensory-type of inflammatory pain postop. PLAN: 1. We will leave MANUFACTURING DESIGN ENGINEER as it was written for. Patient is opioid tolerant so she should be able to handle the current dose. 2. I was thinking about restarting methadone, although due to patient's current level of sedation, I would not feel comfortable doing that at this point in time. We will readdress this in the morning. 3. Vistaril 25-50 mg p.o. q.6h. scheduled. Hold if sedated. Patient can take thiswith a small sip of water. 4. Tylenol 1000 mg q.8h. Patient can also take this with a small sip of water. 5. As mentioned previously, patient is opioid tolerant but due to sedation we will hold off on other sedating meds. Patient has tried Lyrica and Neurontin in the past without too much success so may not consider those. 6. We will follow up in the morning to see if we need to add the methadone or any other interventions. Thanks for this consultation. Electronically signed on 09/04/2010 12:54 by DIANA DEL REAL MT: [place] Name: KRYS MOSHER MRN: [id number] Account: [id number] : 1950 Consult Date: 08/21/2010 Document: [id number] cc: SAIMA MCHUGH PA-C documented in this encounter Plan of Treatment Not on filedocumented as of this encounter Visit Diagnoses Not on filedocumented in this encounter
--- OUTSIDE RECORDS SUMMARY | 2021-11-12 14:48 | XMS_ITS | Encounter Summary ---
:1950 Author Organization [place] Address [address] [facility] [place] [address] Care Team Providers Name Role Phone Unavailable Primary Care Provider Unavailable Encounter Details Date Type Department Care Team Description 08/25/[address] [facility] Krysta (Plumber Supervisor) [facility] VIELKA Isabel [facility] [address] [facility] [address] [place], [place] [id number] Social History Tobacco Use Types Packs/Day Years Used Date Never Assessed Sex Assigned at Date Recorded Not on file documented as of this encounter Progress Notes Saima Chaparro PA-C - 08/30/2010 5:43 AM CDT FINAL HISTORY: Krys Mosher is a 60-year-old female who underwent an uncomplicated lumbar decompression from L2-L5 with a fusion at L2-3 and L4-5. Postoperative course and recovery was assisted by both Internal Medicine and the Pain Management Services. She is methadone-dependence and we appreciated the services of the pain team to assist us in her postoperative management. Overall, she progressed along well. She was able to transition from IV narcotics, Dilaudid to p.o. methadone and oxycodone. She also was mobilizing well on her last postop discharge date which is 08/25/2010. The dressings and drainshad been removed. She was ambulating with only minor assistance and was deemed appropriate to transition home. DISCHARGE MEDICATIONS: 1. Prilosec 20 mg daily. 2. Furosemide 40 mg twice daily p.r.n. for lower extremity edema. The patient modulates between single to b.i.d. use. 3. Simvastatin 40 mg each day at bedtime. 4. Colace 100-200 mg per day. 5. Flonase nasal spray 0.05%. 6. Flexeril 10 mg 3 times daily p.r.n. 7. She is going to hold her Fosamax for 3 months. 8. Ritalin 10 mg twice daily. 9. Methadone 5 mg twice daily. 10. Oxycodone 10-15 mg every 4 hours for breakthrough pain with the understanding that she is going to a scale back on this. She is not take her Vicodin concurrently. 11. She can resume her potassium chloride replacement of 10 mEq. She was discharged with vitals stable, wound healing well and brace use tolerable. Our plan is to see her back in 6 weeks for repeat AP and lateral lumbar radiographs. Electronically signed on 08/30/2010 05:42 by ABIGAIL MIRANDA MD As dictated by SAIMA CHAPARRO PA-C MT: [id number] Name: KRYS MOSHER MRN: [id number] Account: [id number] : 1950 Admit Date: Discharge Date: 08/25/2010 Document: [id number] documented in this encounter Plan of Treatment Not on filedocumented as of this encounter Visit Diagnoses Not on filedocumented in this encounter
--- OUTSIDE RECORDS SUMMARY | 2021-11-12 14:48 | XMS_ITS | Encounter Summary ---
:1950 Author Organization [place] Address [facility] [place] [address] Care Team Providers Name Role Phone Idalmis Sloan Primary Care Provider Encounter Details Date Type Department Care Team Description 11/16/2015 Therapy Visit [facility] [place] Saeed, PT Cervical radiculitis (Primary Dx); [facility] Sprain of left rotator cuff capsule, sub sequent encounter; Services [address] Other postprocedural status(V45.89) Specialty Care Allen gu[address] [facility] [address] [address] [place], [place] [address] [address] [place] [address] [phone] Social History Tobacco Use Types Packs/Day Years Used Date Never Assessed Sex Assigned at Date Recorded Not on file documented as of this encounter Plan of Treatment Not on filedocumented as of this encounter Procedures Procedure Name Priority Date/Time Associated Diagnosis Comme [facility] Z THERAPEUTIC Routine 11/19/2015 7:32 AM Cervical radi culitis EXERCISES CDT Sprain of left rotator cuff capsule, subsequent encounter Other postprocedural status(V45.89) documented in this encounter Visit Diagnoses Diagnosis Cervical radiculitis - Primary Brachial neuritis or radiculitis nos Sprain of left rotator cuff capsule, sub sequent encounter Other postprocedural status(V45.89) Other postprocedural status documented in this encounter Care Teams Cyber Workforce Developer And Manager Relationship Specialty Start Date End Date Idalmis Sloan PCP - General Family Practice 11/04/13 documented as of this encounter
--- OUTSIDE RECORDS SUMMARY | 2021-11-12 14:48 | XMS_ITS | Encounter Summary ---
:1950 Author Organization [place] Address [address] [place] [address]. [place] [address] Care Team Providers Name Role Phone Idalmis Sloan Primary Care Provider Reason for Visit KIMBER Physical Therapy (Routine) - Denied Specialty Diagnoses / Procedures Referred By Contact Refer red To Contact Physical Therapy Diagnoses >4 s/p L rot cuff / mehdi lorenzana @ ortho / [employer] 30 visits per year Mehdi Gaffney MD Judd, Laurie, PT Procedures EXTREMITY INITIAL ORTHOPAEDIC AND [facility] [address] [place] [address] [address] [place] [address] [place] [address] Fax: Referral ID Status Reason Start Date Expiration Date Visits V isits Requested Authorized KIMBER/WC/PT/L Denied 06/11/2015 06/10/2016 14 0 SHLDR POST [id number] Encounter Details Date Type Department Care Team Description 07/10/2015 [facility], Sprain of left rotator cuff capsule, subsequent encounter (Primary Dx); Rehabilitation Services CORRINA Melissa Otnatacha r postprocedural status(V45.89) [facility] Care [place] [address] [facility] [address] [place] [address] Social History Tobacco Use Types Packs/Day Years Used Date Never Assessed Sex Assigned at Date Recorded Not on file documented as of this encounter Plan of Treatment Not on filedocumented as of this encounter Procedures Procedure Name Priority Date/Time Associated Diagnosis Comme brissa ZZC NEUROMUSCULAR Routine 07/11/2015 7:11 AM Sprain of left ro tator RE-EDUCATION CDT cuff capsule, subsequent encounter Other postprocedural status(V45.89) [facility] THERAPEUTIC Routine 07/11/2015 7:11 AM Sprain of left rota tor EXERCISES CDT cuff capsule, subsequent encounter Other postprocedural status(V45.89) documented in this encounter Visit Diagnoses Diagnosis Sprain of left rotator cuff capsule, sub sequent encounter - Primary Other postprocedural status(V45.89) Other postprocedural status documented in this encounter Care Teams Mine Geologist Relationship Specialty Start Date End Date Idalmis Sloan PCP - General Family Practice 11/04/13 documented as of this encounter
--- OUTSIDE RECORDS SUMMARY | 2021-11-12 14:48 | XMS_ITS | Encounter Summary ---
:1950 Author Organization [place] Address Pending sale to [facility] [place] [address] Care Team Providers Name Role Phone Idalmis Slaon Primary Care Provider Encounter Details Date Type Department Care Team Description 08/10/2014 Therapy Visit [facility] Belén Alva, Midline low back pain Rehabilitation Services CONTAINER SHOP WELDER with right-sided [place] [facility] sc honorio (Primary Dx) Center [address] [facility] [address] [place] [address] Social History Tobacco Use Types Packs/Day Years Used Date Never Assessed Sex Assigned at Date Recorded Not on file documented as of this encounter Plan of Treatment Not on filedocumented as of this encounter Procedures Procedure Name Priority Date/Time Associated Diagnosis Comme nts ZZC NEUROMUSCULAR Routine 08/11/2014 10:35 AM Midline low back pain RE-EDUCATION CDT with right-sided sciatica ZZ THERAPEUTIC EXERCISES Routine 08/11/2014 10:35 AM Midline low back pain CDT with right-sided sciatica documented in this encounter Visit Diagnoses Diagnosis Midline low back pain with right-sided s ciatica - Primary documented in this encounter Care Teams Renewals Specialist Relationship Specialty Start Date End Date Idalmis Sloan PCP - General Family Practice 11/04/13 documented as of this encounter
--- OUTSIDE RECORDS SUMMARY | 2021-11-12 14:48 | XMS_ITS | Encounter Summary ---
:1950 Author Organization [place] Address [facility] [place] [address] Care Team Providers Name Role Phone Idalmis Sloan Primary Care Provider Reason for Visit [facility] Physical Therapy (Routine) - Denied Specialty Diagnoses / Procedures Referred By Contact Refer red To Contact Physical Therapy Diagnoses >4 s/p L rot cuff / mehdi lorenzana @ ortho / [employer] 30 visits per year Mehdi Gaffney MD Judd, Laurie, PT Procedures EXTREMITY INITIAL ORTHOPAEDIC AND [facility] [id number] [place] [address] [address] [address] [address] [address] [place] [address] [place] [address] Fax: Referral ID Status Reason Start Date Expiration Date Visits V isits Requested Authorized KIMBER/WC/PT/L Denied 06/11/2015 06/10/2016 14 0 SHLDR POST [id number] Encounter Details Date Type Department Care Team Description 07/03/2015 Therapy Visit [facility] [place] Wheeler, PT Sprain of left rotator cuff capsule, sub sequent encounter (Primary Dx); [facility] Other postprocedural status(V45.89) Services [place] [id number] [place] [address] Specialty Care Allen [address] [address] [place], [place] [address] [address] [place] [address] Social History Tobacco Use Types Packs/Day Years Used Date Never Assessed Sex Assigned at Date Recorded Not on file documented as of this encounter Plan of Treatment Not on filedocumented as of this encounter Procedures Procedure Name Priority Date/Time Associated Diagnosis Comme nts [facility] NEUROMUSCULAR Routine 07/04/2015 2:00 PM Sprain of left ro tator RE-EDUCATION CDT cuff capsule, subsequent encounter Other postprocedural status(V45.89) [facility] THERAPEUTIC Routine 07/04/2015 2:00 PM Sprain of left rota tor EXERCISES CDT cuff capsule, subsequent encounter Other postprocedural status(V45.89) documented in this encounter Visit Diagnoses Diagnosis Sprain of left rotator cuff capsule, sub sequent encounter - Primary Other postprocedural status(V45.89) Other postprocedural status documented in this encounter Care Teams Land Surveying Party Chief Relationship Specialty Start Date End Date Idalmis Sloan PCP - General Family Practice 11/04/13 documented as of this encounter
--- OUTSIDE RECORDS SUMMARY | 2021-11-12 14:48 | XMS_ITS | Encounter Summary ---
:1950 Author Organization [place] Address [facility] [place] [address] Care Team Providers Name Role Phone Idalmis Sloan Primary Care Provider Reason for Visit [facility] Physical Therapy (Routine) - Denied Specialty Diagnoses / Procedures Referred By Contact Refer red To Contact Physical Therapy Diagnoses >4 s/p L rot cuff / mehdi lorenzana @ ortho / [employer] 30 visits per year Mehdi Gaffney MD Judd, Laurie, PT Procedures EXTREMITY INITIAL [facility]OP[facility]EDIC AND [facility] [id number] [place] [address] [address] [facility] [address] [place] [address] [place] [address] Fax: Referral ID Status Reason Start Date Expiration Date Visits V isits Requested Authorized KIMBER/WC/PT/L Denied 06/11/2015 06/10/2016 14 0 SHLDR POST [id number] Encounter Details Date Type Department Care Team Description 08/16/2015 Therapy Visit [facility] [place] Wheeler, PT Sprain of left rotator cuff capsule, sub sequent encounter (Primary Dx); [facility] Other postprocedural status(V45.89) Services [place] [id number] [place] [address] Specialty Care Allen [address] [address] [place], [place] [address] [address] [place] [address] Social History Tobacco Use Types Packs/Day Years Used Date Never Assessed Sex Assigned at Date Recorded Not on file documented as of this encounter Plan of Treatment Not on filedocumented as of this encounter Procedures Procedure Name Priority Date/Time Associated Diagnosis Comme nts [facility] NEUROMUSCULAR Routine 08/16/2015 5:04 PM Sprain of left ro tator RE-EDUCATION CDT cuff capsule, subsequent encounter Other postprocedural status(V45.89) [facility] THERAPEUTIC Routine 08/16/2015 5:04 PM Sprain of left rota tor EXERCISES CDT cuff capsule, subsequent encounter Other postprocedural status(V45.89) documented in this encounter Visit Diagnoses Diagnosis Sprain of left rotator cuff capsule, sub sequent encounter - Primary Other postprocedural status(V45.89) Other postprocedural status documented in this encounter Care Teams Engine Turner Relationship Specialty Start Date End Date Idalmis Sloan PCP - General Family Practice 11/04/13 documented as of this encounter
--- OUTSIDE RECORDS SUMMARY | 2021-11-12 14:48 | XMS_ITS | Encounter Summary ---
:1950 Author Organization [place] Address [address] [place] [address]. [place] [address] Care Team Providers Name Role Phone Idalmis Sloan Primary Care Provider Reason for Visit [facility] Physical Therapy (Routine) - Denied Specialty Diagnoses / Procedures Referred By Contact Refer red To Contact Physical Therapy Diagnoses >4 s/p L rot cuff / mehdi lorenzana @ ortho / [employer] 30 visits per year Mehdi Gaffney MD Judd, Laurie, PT Procedures EXTREMITY INITIAL [facility]OP[facility]EDIC [facility] [address] [place] [address] [place] [address] [place] [address] Fax: Referral ID Status Reason Start Date Expiration Date Visits V isits Requested Authorized KIMBER/WC/PT/L Denied 06/11/2015 06/10/2016 14 0 SHLDR POST [id number] Encounter Details Date Type Department Care Team Description 08/03/2015 [facility] Sprain of left rotator cuff capsule, subsequent encounter (Primary Dx); Rehabilitation Services CORRINA Melissa Otnatacha r postprocedural status(V45.89) [facility] Care [place] [address] [facility] [address] [place] [address] Social History Tobacco Use Types Packs/Day Years Used Date Never Assessed Sex Assigned at Date Recorded Not on file documented as of this encounter Plan of Treatment Not on filedocumented as of this encounter Procedures Procedure Name Priority Date/Time Associated Diagnosis Comme nts ZZC HOT OR COLD PACKS Routine 08/03/2015 10:32 AM Sprain of le ft rotator THERAPY CDT cuff capsule, subsequent encounter Other postprocedural status(V45.89) [facility] NEUROMUSCULAR Routine 08/03/2015 10:32 AM Sprain of left r otator RE-EDUCATION CDT cuff capsule, subsequent encounter Other postprocedural status(V45.89) [facility] THERAPEUTIC Routine 08/03/2015 10:32 AM Sprain of left rot ator EXERCISES CDT cuff capsule, subsequent encounter Other postprocedural status(V45.89) documented in this encounter Visit Diagnoses Diagnosis Sprain of left rotator cuff capsule, sub sequent encounter - Primary Other postprocedural status(V45.89) Other postprocedural status documented in this encounter Care Teams Shipper Relationship Specialty Start Date End Date Idalmis Sloan PCP - General Family Practice 11/04/13 documented as of this encounter
--- OUTSIDE RECORDS SUMMARY | 2021-11-12 14:48 | XMS_ITS | Encounter Summary ---
:1950 Author Organization [place] Address [facility] [place] [address] Care Team Providers Name Role Phone Unavailable Primary Care Provider Unavailable Encounter Details Date Type Department Care Team Description 08/23/2010 Historic Notes INTERFACED REPORT Interface, Transcript on, Social History Tobacco Use Types Packs/Day Years Used Date Never Assessed Sex Assigned at Date Recorded Not on file documented as of this encounter Progress Notes Interface, Aligner - 12/02/2010 7:36 PM CDT General Information - Patient Profile See Profile for full history and prior level of Review: function, On 5 liters of oxygen. Oxygen sats in the low 90s. - Onset Date: - Referring Physician: Dr. Jose Comer - Patient/Family Goals: to return home at discharge - History of Present spinal stenosis and spondylolisthesis. S/P Problem: decompression and PSF L2-3 and L4-5. PMH- hx. MRSA, chronic pain-on methadone, reflux, HTN, hyperlipidemia, PVD - Treatment Diagnosis: weakness, impaired gait and mobility, needing assist with transfers - Precautions/Limitati_ Spine precautions; brace when out of bed ons: - Weight Bearing No weight bearing restrictions Status: - Observations: Patient lives with in an apt. She does have ~ 2 flights of stairs to get to her apt. Tub/shower combination. Has a bath bench, walker and cane. Patient was independent with ADLs prior to surgery. Cognitive Status - Orientation: orientation to person, place and time - Level of alert Consciousness: - Follows Commands and 100% of the time Answers Questions: - Personal Safety and intact Judgment: - Memory: intact Visual Perception Visual Perception: Normal; WEars glasses. Pain - Pain: Pain rated a 7 out of 10 Sensation - Sensation: Sensation was appropriate in all areas Muscle Tone - Muscle Tone: Muscle tone was appropriate in all areas Range of Motion - Range of Motion: ROM was appropriate in all areas Strength - Strength: Strength was appropriate in all areas Bed Mobility: Rolling/Turning - Level of moderate assist (50% patients effort) [place]: - Physical 1 person assist Assist/Nonphysical Assist: Bed Mobility: Sit to Supine - Level of moderate assist (50% patients effort) [place]: - Physical 1 person assist Assist/Nonphysical Assist: Bed Mobility: Supine to Sit - Level of moderate assist (50% patients effort) [place]: - Physical 1 person assist Assist/Nonphysical Assist: Bed Mobility Analysis - Impairments pain; post surgical precautions; decreased Contributing to strength Impaired Bed Mobility: Transfer: Sit to Stand - Level of minimum assist (75% patients effort) [place]: - Physical 1 person assist Assist/Nonphysical Assist: Transfer: Stand to Sit - Level of minimum assist (75% patients effort) [place]: - Physical 1 person assist Assist/Nonphysical Assist: Transfer: Sit/Stand Safety Analysis - Impairments pain; post surgical precautions; decreased Contributing to strength Impaired Transfers: Lower Body Dressing - Level of maximum assist (25% patients effort) [place]: - Physical 1 person assist Assist/Nonphysical Assist: Self Care Analysis - Impairments pain; post surgical precautions; decreased Contributing to strength Impaired Activities of Daily Living: Treatment Plan - Treatments: ADL Retraining, Functional Transfer Training Clinical Impression - Skilled Criteria for Yes Therapy Intervention Met: - Assessment: Patient is a 60 year old female admitted for lumbar fusion. Patient lives with her in an apt and has a couple flights of stairs to climb to get to her apt. She was independent with ADLs and functional mobility prior to her injury in April. Patient presently displays decreased ADLs, functional mobility and activity tolerance. Patient is appriopriate for OT to address these problem areas prior to discharge. 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 referral to another service: - Predicted Duration of 3-4 days Therapy: - Predicted Frequency daily of Therapy: - Discharge Rehabilitation facility; TCU versus home with Destination: assist pending progress - Anticipated Equipment Catalyst Operator Gasoline; Dressing equipment at Discharge: - Risks and Benefits of Yes Treatment have been explained.: - Patient, family Yes and/or staff in agreement with Plan of Care: MAO Garcia (OTR/L)[Signed 15:20] Authored: General Information, Cognitive Status, Visual Perception, Pain, Sensation, Muscle Tone, Range of Motion, Strength, Bed Mobility: Rolling/Turning, Bed Mobility: Sit to Supine, Bed Mobility: Supine to Sit, Bed Mobility Analysis, Transfer: Sit to Stand, Transfer: Stand to Sit, Transfer: Sit/Stand Safety Analysis, Lower Body Dressing, Self Care Analysis, Treatment Plan, Clinical Impression documented in this encounter Plan of Treatment Not on filedocumented as of this encounter Visit Diagnoses Not on filedocumented in this encounter
--- OUTSIDE RECORDS SUMMARY | 2021-11-12 14:48 | XMS_ITS | Encounter Summary ---
:1950 Author Organization [place] Address [address] [facility] [place] [address] Care Team Providers Name Role Phone Unavailable Primary Care Provider Unavailable Encounter Details Date Type Department Care Team Description 08/21/2010 Results Only [facility] Jose Comer, Hospital Results [facility] [address] [place] [address] (Wo rk) Social History Tobacco Use Types Packs/Day Years Used Date Never Assessed Sex Assigned at Date Recorded Not on file documented as of this encounter Plan of Treatment Not on filedocumented as of this encounter Procedures Procedure Name Priority Date/Time Associated Comments Diagnosis XR LUMBAR SPINE PORT Routine 08/21/2010 10:00 AM Results for this 2/3 VIEWS CDT procedure are i n the results section. XR CROSSTABLE Routine 08/21/2010 8:46 AM Results for this LATERAL LUMBAR SPINE CDT procedu re are in PORTABLE the results section. documented in this encounter Results X-ray Lumbar spine 1 vw port (08/21/2010 10:00 AM CDT) Specimen (Source) Anatomical Collection Method Collection Time Re ceived Time Location / / Volume Laterality 08/21/2010 10:00 AM CDT Impressions RADIOLOGY RESULTS - 08/21/2010 4:45 PM C DT PA AND CROSSTABLE LATERAL LUMBAR SPINE C OMPLETED PORTABLY IN OR ??Aug 21, 2010 10:00:00 AM HISTORY: Evaluation of posterior fusion. COMPARISON: 08/21/2010 initial crosstable lateral study. FINDINGS: Bilateral transpedicular screw s now demonstrated L2, L3, L4, and L5 with accompanying mary instrumenta tion. Wide laminectomy at L4 and L5. Jose Reimao Comer MD IMG DIAGNOSTIC IMAGING ORDER TRELL Performing Organization Address City/State/ZIP Code Phon e Number RADIOLOGY RESULTS X-ray Lumbar spine 1 vw port (08/21/2010 8:46 AM CDT) Specimen (Source) Anatomical Collection Method Collection Time Re ceived Time Location / / Volume Laterality 08/21/2010 8:46 AM CDT Impressions RADIOLOGY RESULTS - 08/21/2010 4:45 PM C DT PORTABLE CROSSTABLE LATERAL LUMBAR SPINE IN OR ??Aug 21, 2010 8:46:00 AM HISTORY: Localization. COMPARISON: None. FINDINGS: Localizing probe overlies pedi jaydon of L2 extending anteriorly to mid vertebral body. Bilateral transpedicular screws with mary instrumentation accompanying prior fusion L3-L4. Prior anterior fusio n at this level as well. Jose Comer MD IMG DIAGNOSTIC IMAGING ORDER TRELL Performing Organization Address City/State/ZIP Code Phon e Number RADIOLOGY RESULTS documented in this encounter Visit Diagnoses Not on filedocumented in this encounter
--- OUTSIDE RECORDS SUMMARY | 2021-11-12 14:48 | XMS_ITS | Encounter Summary ---
:1950 Author Organization [place] Address Formerly [facility] [place] [address] Care Team Providers Name Role Phone Unavailable Primary Care Provider Unavailable Encounter Details Date Type Department Care Team Description 08/21/2010 Hospital Laboratory [facility] Results MD Dipti [facility] [address] [place] [address] (Wo rk) Social History Tobacco Use Types Packs/Day Years Used Date Never Assessed Sex Assigned at Date Recorded Not on file documented as of this encounter Plan of Treatment Not on filedocumented as of this encounter Procedures Procedure Name Priority Date/Time Associated Diagnosis Comme nts ABO/RH TYPE AND Routine 08/21/2010 6:15 AM Result s for this SCREEN CDT procedure are i n the results section. documented in this encounter Results ABO/Rh type and screen (08/21/2010 6:15 AM CDT) Analysis Performed At Patho logist Time Signature ABO A [facility] RH(D) Pos [facility] Antibody Neg [facility] Specimen 08/24/2010 [facility] Specimen Anatomical Collection Method Collection Time Receive d Time (Source) Location / / Volume Laterality 08/21/2010 6:15 AM 1 6:17 CDT AM CDT Jose Comer MD LAB - BLOOD BANK TEST ORDER Performing Organization Address City/State/ZIP Code Phon e Number [facility] [address] [place], [place] [address] [facility] documented in this encounter Visit Diagnoses Not on filedocumented in this encounter
--- OUTSIDE RECORDS SUMMARY | 2021-11-12 14:49 | XMS_ITS ---
:1950 Author Care Team Providers Name Role Phone Ed Travis Primary Care Provider Unavailable Allergies Code Code System Name Reaction Severity Status Onset 251175 RxNorm Augmentin ? ? Active ? 7052 RxNorm Morphine ? ? Active ? Sulfa (Sulfonamide ? ? Active ? Antibiotics) Medications Name Status Start Date Stop Date ? ? calcium Active ? Not available cephalexin 500 mg capsule Active ? Not av ailable Take 1 capsule 3 times a day by oral route for 10 days. Hydrocodone Active ? Not available Lomotil Active ? Not available methadone Active ? Not available Multi Vitamin Active ? Not available potassium Active ? Not available simvastatin Active ? Not available trazodone Active ? Not available Problems Name Status Onset Date Source ? Seasonal Allergy Active ? ? Asthma Active ? ? Gastritis Active ? ? Arthritis Active ? ? Procedures Date Name Performed by ? ? Foot/toes Surgery Procedure Information not available ? Hysterectomy Information not avai lable ? Back / Spine Surgery Information not david ilable ? Cholecystectomy (Gallbladder) Informatio n not available Results Lab Results Date Name Specimen Result Interpretation Description Value Range Status Address ? 07/16/2020 Urinalysis, URINE ? Specific 1.025 1.005-1.030 Final [facility]: Complete [place] [address], [place] ? ? URINE ? Ph 5.5 5.0-7.5 Final [facility]: [address], [place] ? ? URINE ? Urine-colo yellow yellow Final [facility]: r [address], [place] ? ? URINE ? Appearance clear clear Final [facility]: [address], [place] ? ? URINE ? WBC negative negative Final [facility]: Esterase [address], [place] ? ? URINE ABNOR Protein 1+ negative/tra Final [facility]: MAL ce [address], [place] ? ? URINE ? Glucose negative negative Final [facility]: [address], [place] ? ? URINE ABNOR Ketones trace negative Final [facility]: MAL [address], [place] ? ? URINE ? Occult negative negative Final [facility]: Blood [address], [place] ? ? URINE ? Bilirubin negative negative Final [facility]: [address], [place] ? ? URINE ? Urobilinog 0.2 0.2-1.0 Final [facility]: en,semi-qn mg/dL mg/dL [address], [place] ? ? URINE ? Nitrite, negative negative Final Lab [facility]: Urine [address], [place] ? ? URINE ? Microscopi see ? Final [facility]: c below: [address], [place] ? ? URINE ? Wbc 0-5 /hpf 0 - 5 /hpf Final [facility]: [address], [place] ? ? URINE ? Rbc 0-2 /hpf 0 - 2 /hpf Final [facility]: [address], [place] ? ? URINE ? Epithelial 0-10 0 - 10 /hpf Final [facility]: Cells (Non /hpf [address], [place] ? ? URINE ? Epithelial regional otr company driver ? [place] [facility]: Cells d [address], [place] ? ? URINE ? Casts regional otr company driver ? [place]ancelle [facility]: d [address], [place] ? ? URINE ? Cast Type regional otr company driver ? [place]: d [address], [place] ? ? URINE ABNOR Crystals present n/a Final [facility]: MAL [address], [place] ? ? URINE ? Crystal amorphou n/a Final [facility]: Type s [address], [place] ? ? URINE ? Mucus present not estab. Final [facility]: Threads [address], [place] ? ? URINE ? Bacteria few none Final [facility] : seen/few [address], [place] ? ? URINE ? Yeast regional otr company driver ? [place]ancelle [facility]: d [address], [place] ? ? URINE ? Trichomona regional otr company driver ? [place]: s d [address], [place] ? ? URINE ? Comment regional otr company driver ? [place]elle [facility]: d [address], [place] ? ? URINE ? Microscopi regional otr company driver ? [place]: c d [address], [place] 07/16/2020 Culture, URINE ABNOR Urine final ? Final [facility] Urine MAL Culture, report ([place] Routine ): [address] [facility], [place] ? ? URINE ABNOR Result 1 comment ? Final [facility] MAL ([place] ): [address] [facility], [place] ? ? URINE ABNOR Result 2 serratia ? Final [facility] MAL maryce ([place] ns ): [address] [facility], [place] ? ? URINE ? Antimicrob comment ? Final Lab[facility] or[facility] ial ([place] Susceptibil ): 14 47 [address] [facility], [place] Past Encounters 07/16/2020 Cellulitis of Toe of Right Foot; Urinary Tract Infectious Disease [facility]: [address] [facility], [address], [place] [address], Ph. Social History Tobacco Smoking Status Former Smoker Vaccine List None recorded. Plan of Care Reminders Provider Appointments None recorded. ? ? Lab None recorded. ? ? Referral None recorded. ? ? Procedures None recorded. ? ? Surgeries None recorded. ? ? Imaging None recorded. ? ? Vitals Weight BMI Blood Pressure 160/91 mm[Hg]
== END 2021-11-12 14:43 | disposition home or self-care (01) ==
LOC: WOUND 14:42
PROVIDERS: Visit Provider Nurse Practitioner Family
DX: L97.422 Non-pressure chronic ulcer of left heel and midfoot with fat layer exposed (principal); G90.09 Other idiopathic peripheral autonomic neuropathy; I73.9 Peripheral vascular disease, unspecified; Q84.5 Enlarged and hypertrophic nails
CPT/HCPCS: 11720; 97597

== ENCOUNTER 2021-11-27 14:21 | Outpatient (CLI) | payer MEDICARE, SELFPAY ==
--- OUTSIDE RECORDS SUMMARY | 2021-11-27 14:24 | XMS_ITS | Encounter Summary ---
:1950 Author Organization [facility] Address [address] [place] [address] Care Team Providers Name Role Phone Unavailable Primary Care Provider Unavailable Reason for Visit Reason Comments Lab Questions Encounter Details Date Type Department Care Team Description 09/24/2012 Telephone [facility] 3800 Megan Son MD Lab Questions Dermatology [address] [facility] [place] [address] [place], [place] [address] [phone] Social History Tobacco Use Types Packs/Day Years [...]
--- OUTSIDE RECORDS SUMMARY | 2021-11-27 14:24 | XMS_ITS | Encounter Summary ---
:1950 Author Organization [facility] Address [address] [place] [address] Care Team Providers Name Role Phone Unavailable Primary Care Provider Unavailable Encounter Details Date Type Department Care Team Description 10/25/2012 Lab Visit [facility] 3850 Rash and other nonspecific skin eruption; Laboratory Unspecified pruritic disorde r [address] [place], [place] [id number] Social History Tobacco Use Types Packs/Day Years [...] and let her know lymphocytes are ok D SEISMOLOGIST Miscellaneous - 04/11/2016 4:09 AM CSTNotes Recorded by Hira Link RN on 10/25/2012 at 5:13 PMPt notified.------Notes Recorded by Megan Son MD on 10/25/2012 at 3:42 PMPlease call and let her know lymphocytes are ok D SEISMOLOGIST documented in this encounter Plan of Treatment [...] - 10/25/2012 12:26 PM CDT Performed at [facility], [address] [place] [address] Transcriptions 04/11/2016 4:09 AM CSTNotes Recorded by [...] - 10/25/2012 12:26 PM CDT Performed at [facility], [address] [place] [address] Transcriptions 04/11/2016 4:09 AM CSTNotes Recorded by [...]
--- OUTSIDE RECORDS SUMMARY | 2021-11-27 14:24 | XMS_ITS | Encounter Summary ---
:1950 Author Organization [facility] Address [address] [place] [address] Care Team Providers Name Role Phone Unavailable Primary Care Provider Unavailable Reason for Visit Reason Comments Rash SWELLING, LEG Encounter Details Date Type Department Care Team Description 11/27/2012 Nurse Triage [facility] 380 Found, No Pcp , Rash; SWELLING, LEG Dermatology [address] [facility] [address] [place] [place] [address] [address] [place] [address] Social History Tobacco Use Types Packs/Day Years Used Date Smoking Tobacco: Never Assessed Sex Assigned at Date Recorded Not on file documented as of this encounter Nursing Notes Vicki Andrew - 11/27/2012 2:28 PM CDT Protocol: LEG SWELLING AND [id number]-DPFKA-AK Affirmative: [1] Thigh, calf, or ankle swelling [...]
--- OUTSIDE RECORDS SUMMARY | 2021-11-27 14:24 | XMS_ITS | Encounter Summary ---
:1950 Author Organization [facility] Address [address] [place] [address] Care Team Providers Name Role Phone Unavailable Primary Care Provider Unavailable Reason for Visit Reason Comments DERMATITIS Encounter Details Date Type Department Care Team Description 11/11/2012 Procedure Visit [facility] Nurse, Bravo Chao DERMATITIS [address] [place] [address] Social History Tobacco Use Types [...]
--- OUTSIDE RECORDS SUMMARY | 2021-11-27 14:24 | XMS_ITS | Encounter Summary ---
:1950 Author Organization [facility] Address [address] [place] [address] Care Team Providers Name Role Phone Unavailable Primary Care Provider Unavailable Reason for Visit Reason Comments UPDATE Encounter Details Date Type Department Care Team Description 12/07/2017 Telephone [facility] 3800 Dustin Cagle MD UPDATE Endocrinology [address] [place] [phone] (Wo rk) Social History Tobacco Use Types [...]
--- OUTSIDE RECORDS SUMMARY | 2021-11-27 14:24 | XMS_ITS | Continuity of Care Document ---
:1950 Author Organization [facility] Address [address] [facility] [place] [address] Care Team Providers Name Role Phone [facility] Unavailable Unavailable Procedures Procedure Date INTERLAMINAR CRV OR THRC Advance Directives Directive Yes / No Effective Date File Name No Information Encounters Encounter Practice Location Reason(s) Diagnoses Date Provider Provide rs Description For Visit Copied on Encounter [facility] Information [facility] Provider: Surgery Surgery Surgery [facility] [place], [address] [facility] [address] [facility] [place], [place], [place], [place], [id number], [place], [address]. [id number], tel:[phone]. [phone] tel:[phone] Family History Family Member Type Diagnosis Age At Onset No Information Payers Payer name Insurance type Covered democrat ID Authorization(s ) [facility] MedicareComplete Replacement [id number] Social History Type Description Quantity Date Captured [...]
--- OUTSIDE RECORDS SUMMARY | 2021-11-27 14:24 | XMS_ITS | Encounter Summary ---
:1950 Author Organization [facility] Address [address] [place] [address] Care Team Providers Name Role Phone Unavailable Primary Care Provider Unavailable Reason for Visit Reason Comments Other Encounter Details Date Type Department Care Team Description 11/20/2017 Telephone [facility] 3800 Dustin Cagle MD Other Endocrinology [address] [place] [phone] (Wo rk) Social History Tobacco Use Types [...]
--- OUTSIDE RECORDS SUMMARY | 2021-11-27 14:24 | XMS_ITS | Encounter Summary ---
:1950 Author Organization [facility] Address [address] [place] [address] Care Team Providers Name Role Phone Unavailable Primary Care Provider Unavailable Reason for Visit Reason Comments ECZEMA Encounter Details Date Type Department Care Team Description 11/04/2012 Procedure Visit [facility] Nurse, Bravo Chao ECZEMA [address] [place] [address] Social History Tobacco Use Types [...]
--- OUTSIDE RECORDS SUMMARY | 2021-11-27 14:24 | XMS_ITS | Encounter Summary ---
:1950 Author Organization [facility] Address [address] [place] [address] Care Team Providers Name Role Phone Unavailable Primary Care Provider Unavailable Reason for Visit Reason Comments Fax LAB RESULTS Encounter Details Date Type Department Care Team Description 12/02/2017 Telephone [facility] 3800 Dustin Cagle MD Fax; LAB RESULTS Endocrinology [address] [place] [address] [phone] (Wo rk) Social History Tobacco Use Types [...] be faxed to Dr. Idalmis Sloan at [phone]. documented in this encounter Plan of Treatment Not on filedocumented as of this encounter Visit Diagnoses Not on filedocumented in this encounter
--- OUTSIDE RECORDS SUMMARY | 2021-11-27 14:24 | XMS_ITS | Clinical Summary ---
:1950 Author Organization [facility] Address [address] [place] [address] Care Team Providers Name Role Phone Unavailable [...] for each transition of care or referral. [facility] Allergies Active Allergy Reactions Severity Noted Date [...] 36.5 ??C (97.7 ??F) 03/03/2013 10:55 AM KNIT TUBING DYER Respiratory Rate - - Oxygen Saturation - [...] 01/06/2012 11/11/2011 Dexa 06/10/2015 Pneumococcal 65+ Yrs (3) 05/12/2016 08/02/2014, 05/13/2011 DTaP/Tdap/Td (2 - Tdap) 05/10/2020 05/10/2010, 08/18/1994 [...] Phone Address Typ e / Group Dates [facility] [employer] [id number] 2018-Pre [phone] [address] Medicare ADVANTAGE sent [phone] [place] [address]
--- OUTSIDE RECORDS SUMMARY | 2021-11-27 14:24 | XMS_ITS | Clinical Summary ---
:1950 Author Organization [employer] [facility] [facility] [place] [address] Care Team Providers Name Role Phone Idalmis [...] MEDICARE PART A - MEDICARE PART A [id number] 2008-Prese ATTN: CLAIMS HB USE ONLY HB ONLY nt [address] [place] [address] [facility] MR [id number] 2020-Presen [address] [address] [place] [address] Advance Directives Latest Code Status on File Code Status Date Activated Date Inactivated Comments Full Code 07/16/2012 5:52 PM 07/17/2012 6:32 PM Full Code 07/16/2012 10:11 AM 07/16/2012 5:52 PM Care Teams Customs Entry Clerk Relationship Specialty Start Date End Date Idalmis Sloan MD PCP - General Family Practice 07/15/12
--- OUTSIDE RECORDS SUMMARY | 2021-11-27 14:24 | XMS_ITS | Encounter Summary ---
:1950 Author Organization [facility] Address [address] [place] [address] Care Team Providers Name Role Phone Unavailable Primary Care Provider Unavailable Reason for Visit Reason Comments Follow-up Encounter Details Date Type Department Care Team Description 10/25/2012 Office Visit [facility] 3800 Megan Son MD Unspecified pruritic Dermatology [address] [place] disorder (Primary Dx) [address] [place] [phone] Social History Tobacco Use Types Packs/Day Years [...] Has had 2 biopsies ( one at [facility], one elsewhere) , both consistent with organizing [...] 7 days. Take 30 minutes before first bhfw-xqout-ytokmvigvd. Avoid lying down for 30 minutes. ??? [...] lunch. -Discussed UVB therapy, available now in [place] twice a week. Will start this. Warned [...]
--- OUTSIDE RECORDS SUMMARY | 2021-11-27 14:24 | XMS_ITS | Encounter Summary ---
:1950 Author Organization [facility] Address [address] [place] [address] Care Team Providers Name Role Phone Unavailable Primary Care Provider Unavailable Reason for Visit Reason Comments Rash Encounter Details Date Type Department Care Team Description 09/14/2012 Office [place] Alok Wright/[place] Medicine Cheri Qureshi (Primary Dx) [address] [place] [address] [place], [place] [phone] (Wo rk) Social History Tobacco Use Types [...] times recently including a visit to the airframe design engineer and was given topical steroid creams without [...] 7 days. Take 30 minutes before first ccmy-zdlkr-biinikhgzl. Avoid lying down for 30 minutes. ??? [...]
--- OUTSIDE RECORDS SUMMARY | 2021-11-27 14:24 | XMS_ITS | Encounter Summary ---
:1950 Author Organization [facility] Address [address] [place] [address] Care Team Providers Name Role Phone Unavailable Primary Care Provider Unavailable Reason for Visit Reason Comments Appt. Needed Referral rec via fax for Hyp erthyroidism from Dr. Idalmis Sloan at [facility] Encounter Details Date Type Department Care Team Description 2017 Notes/Orders [facility] 3800 Nurse, P3800 End Endocrinology [address] [place] [phone] Social History Tobacco Use Types Packs/Day Years Used Date Smoking Tobacco: Every Day Cigarettes 1 Sex Assigned at Date Recorded Not on file documented as of this encounter Progress Notes Killian Shah - 2017 1:20 PM CDT Referral rec via fax for Hyperthyroidism from Dr. Idalmis Sloan at [facility] documented in this encounter Plan of Treatment Not on filedocumented as of this encounter Visit Diagnoses Not on filedocumented in this encounter
--- OUTSIDE RECORDS SUMMARY | 2021-11-27 14:24 | XMS_ITS | Encounter Summary ---
:1950 Author Organization [facility] Address [address] [place], [place] [address] [place] [address] Care Team Providers Name Role Phone Unavailable Primary Care Provider Unavailable Reason for Visit Reason Comments Cough Encounter Details Date Type Department Care Team Description 03/03/2013 Office Visit [place] [facility] Tammie Mohan, Acute bronchitis Medicine CORDUROY CUTTER OPERATOR, LAB RN (Primary Dx) [address] [place] [address] [place], [place] [phone] Social History Tobacco Use Types Packs/Day Years Used Date Smoking Tobacco: Never Assessed Sex Assigned at Date Recorded Not on file documented as of this encounter Last Filed Vital Signs Vital Sign Reading Time Taken Comments Blood Pressure 124/68 03/03/2013 10:55 AM DRIER OPERATOR HELPER Pulse 84 03/03/2013 10:55 AM DRIER OPERATOR HELPER Temperature 36.5 ??C (97.7 ??F) 03/03/2013 10:55 AM DRIER OPERATOR HELPER Respiratory Rate - - Oxygen Saturation - - Inhaled Oxygen Concentration - - Weight - - Height - - Body Mass Index - - documented in this encounter Patient Instructions Patient InstructionsMoTammie cullen - 03/03/2013 11:13 AM CST Delsym for cough Mucinex D for sinus congestion. Ask the Pharmacist for this R OPERATOR HELPER documented in this encounter Progress Notes Tammie [...] 7 days. Take 30 minutes before first gdzf-ikcue-wnizhldnby. Avoid lying down for 30 minutes. ??? [...] discharged ambulatory and in stable condition. *SH~DNS~SOAP1 R OPERATOR HELPER documented in this encounter Plan of Treatment Not on filedocumented as of this encounter Visit Diagnoses Diagnosis Acute bronchitis - Primary documented in this encounter
--- OUTSIDE RECORDS SUMMARY | 2021-11-27 14:24 | XMS_ITS | Encounter Summary ---
:1950 Author Organization [facility] Address [address] [place] [address] Care Team Providers Name Role Phone Unavailable Primary Care Provider Unavailable Reason for Referral Specialty Diagnoses / Procedures Referred By Contact Refer red To Contact Masood Wright, [facility] [address] [place] [address] Referral ID Status Reason Start Date Expiration Date Visits Requ ested Visits Authorized Reason for Visit Reason Comments Rash Encounter Details Date Type Department Care Team Description 09/22/2012 Initial Consult [facility] 3800 Megan Son MD Rash/skin eruption (Primary Dx); Dermatology [address] Rash and other nonspecific s kin eruption [address] [place] [phone] Social History Tobacco Use Types Packs/Day Years [...] whole body going on for4-5 weeks. Seen [facility] twice for this condition. Red bumps with itching. Tried Bactroban cream, OTCallergy medication, hydrocortisone, hydroxizine. The Bactroban seemed to help little but rash continues to spread. Was in patient hospital for back surgery and rash has been present since and does not believe she has had any new medications prior to the rash. Had biopsy at [facility] which she thought the results [...] 7 days. Take 30 minutes before first ules-lcaqp-sotipplgnh. Avoid lying down for 30 minutes. ??? [...] drawnalso discussed getting labs and slides from [facility] vs doing another biopsy today. Patientelected to have biopsy done today. release of information sent to [facility] today. After disc ussion, a punch biopsy [...] call regarding biopsy results------Notes Recorded by Cherelle Post RN on 09/30/2012 [...] absence (rc 8-5) She may be reached @[phone]. Thank you. 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 FINAL DERMATOPATHOLOGY REPO RT HP CONVERSION Pathology #: [id number] ? Date Obtained: 09/22/2012 ?Date Received: 09/22/2012 [...] absence (rc 8-5) She may be reached @[phone]. Thank you. Megan Son MD LAB_1 Performing Organization Address City/State/ZIP Code Phon e Number HP CONVERSION documented in this encounter Visit Diagnoses Diagnosis Rash/skin eruption - Primary Rash and other nonspecific skin eruption Rash and other nonspecific skin eruption documented in this encounter
--- OUTSIDE RECORDS SUMMARY | 2021-11-27 14:24 | XMS_ITS | Encounter Summary ---
:1950 Author Organization [facility] Address [address] [place] [address] Care Team Providers Name Role Phone Unavailable Primary Care Provider Unavailable Reason for Visit Reason Comments ECZEMA Encounter Details Date Type Department Care Team Description 11/30/2012 Procedure Visit [place] [facility] Nurse, Bravo Chao ECZEMA [address] [place] [address] Social History Tobacco Use Types [...]
--- OUTSIDE RECORDS SUMMARY | 2021-11-27 14:24 | XMS_ITS | Encounter Summary ---
:1950 Author Organization [facility] Address [address] [place] [address] Care Team Providers Name Role Phone Unavailable Primary Care Provider Unavailable Encounter Details Date Type Department Care Team Description 10/12/2012 Notes/Orders [facility] 3800 Megan Son MD Dermatology [address] [place] [address] [place], [place] [address] [phone] Social History Tobacco Use Types Packs/Day Years Used Date Smoking Tobacco: Never Assessed Sex Assigned at Date Recorded Not on file documented as of this encounter Plan of Treatment Not on filedocumented as of this encounter Visit Diagnoses Not on filedocumented in this encounter
--- OUTSIDE RECORDS SUMMARY | 2021-11-27 14:24 | XMS_ITS | Encounter Summary ---
:[address] Address [address] [place] [address] Care Team Providers Name Role Phone Unavailable Primary Care Provider Unavailable Reason for Visit Reason Comments CONSULT Thyroid Encounter Details Date Type Department Care Team Description 11/13/[address] [facility] 3800 Anirudh Cagle clinical hyperthyroidism (Primary Dx); Endocrinology MD Jose Elevated parathyroid hormone; [address] [facility] [address] [facility] [address] [place] [address] [phone] Social History Tobacco Use Types Packs/Day Years [...] 12:00 PM CDT NAME: KRYS MOSHER MR#: [id number] CSN: [id number] AUTHENTICATING CLINICIAN: Anirudh Cagle MD CONFIRM #: [id number] LOC: 432 CLINIC CONSULTATION DATE OF CONSULTATION: [...] for this consultation. CC: DR[facility] ISRAEL SLOAN [facility] [address] [place] [address] DMT:MEDQ C: CONFIRM #: [id number] documented in this encounter Plan of Treatment [...] - 11/16/2017 9:14 PM CDT Performed at [address] [address] CLIA number [id number] Anirudh Cagle MD LAB_1 Performing Organization Address City/[facility] Code Phon e Number PN SOFT 6[address] [place] [address] [phone] Tsh Receptor Antibody (11/16/2017 3:17 PM CDT) athologist Signature TSH Receptor <0.90 <=1.75 IU/L PN SOFT Antibody Comment: Performed by [facility], [address] [place] [address] [email or web address] Advisor, Papito Palomares MD - Lab . Director Specimen Anatomical Collection Method Collection Time Receive d Time (Source) Location / / Volume Laterality 11/16/2017 3:17 PM 8 8:43 CDT PM CDT Narrative PN SOFT - 11/18/2017 8:02 PM CDT Performed at [facility] [address] [place] [address] CLIA number [id number] Anirudh Cagle MD LAB_1 Performing Organization Address City/[facility] Phon e Number PN SOFT [address] [place] [address] T3 - Triiodothyronine, Free (FRT3) (11/16/2017 3:17 PM CDT) athologist Signature Triiodothyronin 3.2 1.7 - 3.7 PN SOFT e, Free pg/mL Specimen Anatomical Collection Method Collection Time Receive d Time (Source) Location / / Volume Laterality 11/16/2017 3:17 PM 8 6:30 CDT PM CDT Narrative PN SOFT - 11/16/2017 7:10 PM CDT Performed at [address] [address] CLIA number [id number] Anirudh Cagle MD LAB_1 Performing Organization Address [facility] Phon e Number PN SOFT [address] [place] [address] Free T4 (11/16/2017 3:17 PM CDT) athologist Signature Thyroxine, Free 1.1 0.7 - 1.5 PN SOFT ng/dL Specimen Anatomical Collection Method Collection Time Receive d Time (Source) Location / / Volume Laterality 11/16/2017 3:17 PM 8 6:30 CDT PM CDT Narrative PN SOFT - 11/16/2017 7:10 PM CDT Performed at [address] [address] CLIA number [id number] Anirudh Cagle MD LAB_1 Performing Organization Address City/[facility] Phon e Number PN SOFT [address] [place] [address] TSH (11/16/2017 3:17 PM CDT) athologist Signature Thyroid 0.38 0.30 - PN SOFT Stimulating 4.50 Hormone uIU/mL Specimen Anatomical Collection Method Collection Time Receive d Time (Source) Location / / Volume Laterality 11/16/2017 3:17 PM 8 6:30 CDT PM CDT Narrative PN SOFT - 11/16/2017 7:10 PM CDT Performed at [facility], [facility] [place] [address] CLIA number [id number] Anirudh Cagle MD LAB_1 Performing Organization Address [facility] Phon e Number PN SOFT [address] [place] [address] Vitamin D (In house) (11/16/2017 3:17 PM [...] - 11/16/2017 9:29 PM CDT Performed at [address] [address] CLIA number [id number] Anirudh Cagle MD LAB_1 Performing Organization Address [facility] Phon e Number PN SOFT [address] [place] [address] (ABNORMAL) PTH - Parathyroid Hormone Intact (11/16/2017 3:17 PM CDT) athologist Signature PTH 159 (H) 10 - 100 PN SOFT pg/mL Specimen Anatomical Collection Method Collection Time Receive d Time (Source) Location / / Volume Laterality 11/16/2017 3:17 PM 8 8:43 CDT PM CDT Narrative PN SOFT - 11/16/2017 9:51 PM CDT Performed at [address] [address] CLIA number [id number] Anirudh Cagle MD LAB_1 Performing Organization Address [facility] Phon e Number PN SOFT [address] [place] [address] Phosphorus (11/16/2017 3:17 PM CDT) P athologist Signature Phosphorus Serum 3.2 2.3 - 4.7 PN SOFT mg/dL Specimen Anatomical Collection Method Collection Time Receive d Time (Source) Location / / Volume Laterality 11/16/2017 3:17 PM 8 3:16 CDT PM CDT Narrative PN SOFT - 11/16/2017 4:36 PM CDT Performed at [facility], [address] [facility], [place] [address] CLIA number [id number] Anirudh Cagle MD LAB_1 Performing Organization Address City/State/ZIP Code Phon e Number PN SOFT [address] [place] [address] [phone] (ABNORMAL) CMP - Comprehensive Metabolic Panel (11/16/2017 [...] - 11/16/2017 4:36 PM CDT Performed at [facility], [address] [place] [address] CLIA number [id number] Anirudh Cagle MD LAB_1 Performing Organization Address City/State/ZIP Code Phon e Number PN SOFT [address] [place] [address] documented in this encounter Visit Diagnoses Diagnosis [...]
--- OUTSIDE RECORDS SUMMARY | 2021-11-27 14:24 | XMS_ITS | Encounter Summary ---
:1950 Author Organization [facility] Address [address] [place] [address] Care Team Providers Name Role Phone Unavailable Primary Care Provider Unavailable Encounter Details Date Type Department Care Team Description 11/16/2017 Lab Visit [facility] Elevated parathyroid hormone ; [address] Subclinical hyperthyroidism; [place] [address] Hypocalcemia [phone] Social History Tobacco Use Types Packs/Day Years [...] - 11/18/2017 12:30 [place] [address] CLIA number [id number] Anirudh Cagle MD LAB_1 Performing Organization Address City/State/ZIP Code Phon e Number PN SOFT [address] [place] [address] [phone] Celiac Disease Reflex Panel IgA (11/16/2017 3:17 PM CDT) athologist Signature IGA 198 69 - 517 PN SOFT mg/dL Specimen Anatomical Collection Method Collection Time Receive d Time (Source) Location / / Volume Laterality 11/16/2017 3:17 PM 8 8:54 CDT PM CDT Narrative PN SOFT - 11/16/2017 9:14 PM CDT Performed at [address] [place] [address] CLIA number [id number] Anirudh Cagle MD LAB_1 Performing Organization Address City/[facility]/ZIP Code Phon e Number PN SOFT [address] [place] [address] Tsh Receptor Antibody (11/16/2017 3:17 PM CDT) athologist Signature TSH Receptor <0.90 <=1.75 IU/L PN SOFT Antibody Comment: Performed by [facility], [address] [place] [address] [email or web address], Papito Palomares MD - Lab . Director Specimen Anatomical Collection Method Collection Time Receive d Time (Source) Location / / Volume Laterality 11/16/2017 3:17 PM 8 8:43 CDT PM CDT Narrative PN SOFT - 11/18/2017 8:02 PM CDT Performed at [facility] [address] [place] [address] CLIA number [id number] Anirudh Cagle MD LAB_1 Performing Organization Address [facility] Code Phon e Number PN SOFT [address] [place] [address] T3 - Triiodothyronine, Free (FRT3) (11/16/2017 3:17 PM CDT) athologist Signature Triiodothyronin 3.2 1.7 - 3.7 PN SOFT e, Free pg/mL Specimen Anatomical Collection Method Collection Time Receive d Time (Source) Location / / Volume Laterality 11/16/2017 3:17 PM 8 6:30 CDT PM CDT Narrative PN SOFT - 11/16/2017 7:10 PM CDT Performed at [place] [address] [place] [address] CLIA number [id number] Anirudh Cagle MD LAB_1 Performing Organization Address City/[facility]/ZIP Code Phon e Number PN SOFT [address] [place] [address] Free T4 (11/16/2017 3:17 PM CDT) athologist Signature Thyroxine, Free 1.1 0.7 - 1.5 PN SOFT ng/dL Specimen Anatomical Collection Method Collection Time Receive d Time (Source) Location / / Volume Laterality 11/16/2017 3:17 PM 8 6:30 CDT PM CDT Narrative PN SOFT - 11/16/2017 7:10 PM CDT Performed at [address] [address] CLIA number [id number] Anirudh Cagle MD LAB_1 Performing Organization Address [facility] Phon e Number PN SOFT [address] [place] [address] TSH (11/16/2017 3:17 PM CDT) athologist Signature Thyroid 0.38 0.30 - PN SOFT Stimulating 4.50 Hormone uIU/mL Specimen Anatomical Collection Method Collection Time Receive d Time (Source) Location / / Volume Laterality 11/16/2017 3:17 PM 8 6:30 CDT PM CDT Narrative PN SOFT - 11/16/2017 7:10 PM CDT Performed at [address] [address] CLIA number [id number] Anirudh Cagle MD LAB_1 Performing Organization Address [facility] Phon e Number PN SOFT [address] [place] [address] Vitamin D (In house) (11/16/2017 3:17 PM [...] - 11/16/2017 9:29 PM CDT Performed at [address] [place] [address] CLIA number [id number] Anirudh Cagle MD LAB_1 Performing Organization Address [facility] Phon e Number PN SOFT [address] [place] [address] (ABNORMAL) PTH - Parathyroid Hormone Intact (11/16/2017 3:17 PM CDT) P athologist Signature PTH 159 (H) 10 - 100 PN SOFT pg/mL Specimen Anatomical Collection Method Collection Time Receive d Time (Source) Location / / Volume Laterality 11/16/2017 3:17 PM 8 8:43 CDT PM CDT Narrative PN SOFT - 11/16/2017 9:51 PM CDT Performed at [address] [address] CLIA number [id number] Anirudh Cagle MD LAB_1 Performing Organization Address [facility] Phon e Number PN SOFT [address] [place] [address] Phosphorus (11/16/2017 3:17 PM CDT) P athologist Signature Phosphorus Serum 3.2 2.3 - 4.7 PN SOFT mg/dL Specimen Anatomical Collection Method Collection Time Receive d Time (Source) Location / / Volume Laterality 11/16/2017 3:17 PM 8 3:16 CDT PM CDT Narrative PN SOFT - 11/16/2017 4:36 PM CDT Performed at [facility] [address] [place] [address] CLIA number [id number] Anirudh Cagle MD LAB_1 Performing Organization Address [facility] Phon e Number PN SOFT [address] [place] [address] (ABNORMAL) CMP - Comprehensive Metabolic Panel (11/16/2017 [...] - 11/16/2017 4:36 PM CDT Performed at [facility], [address] [place] [id number] CLIA number [id number] Anirudh Cagle MD LAB_1 Performing Organization Address City/State/ZIP Code Phon e Number PN SOFT [address] [place], [place] [address] [phone] documented in this encounter Visit Diagnoses Diagnosis Elevated parathyroid hormone (HRC) Unspecified endocrine disorder Subclinical hyperthyroidism (HRC) Thyrotoxicosis without mention of goiter or other cause, without mention of thyrotoxic crisis or storm Hypocalcemia documented in this encounter
--- OUTSIDE RECORDS SUMMARY | 2021-11-27 14:24 | XMS_ITS | Encounter Summary ---
:1950 Author Organization [facility] Address [address] [place] [address] Care Team Providers Name Role Phone Unavailable Primary Care Provider Unavailable Reason for Visit Reason Comments Ulcer, Foot 5th toes b/l ft sores x 1 we ek Encounter Details Date Type Department Care Team Description 12/22/2018 Initial Consult [facility] Jermain Stinson , Charcot's joint of right foot (Primary Dx); MedSurg DPM Blister of fifth toe of right foot, init ial encounter; [address] [place] [address] [place], [place] [phone] [address] Social History Tobacco Use Types Packs/Day Years [...] review indicates that she was admitted at [facility] on November 04, 2018 and discharged on [...] and graft Social History: Patient is retired [employer] in is here today with her OBJECTIVE: [...] in these are a custom orthotic from [employer]. These are an accommodative insert. ASSESSMENT: ICD-10-CM [...] procedure. In review of the notes from [facility] it does indicate Charcot reconstruction so it [...] voice recognition software and may contain some composition worker errors) documented in this encounter Nursing Notes [...]
--- OUTSIDE RECORDS SUMMARY | 2021-11-27 14:24 | XMS_ITS | Encounter Summary ---
:1950 Author Organization [facility] Address [address] [place] [address] Care Team Providers Name Role Phone Unavailable Primary Care Provider Unavailable Reason for Visit Reason Comments ECZEMA Encounter Details Date Type Department Care Team Description 11/02/2012 Procedure Visit [facility] Nurse, Bravo Chao ECZEMA [address] [place] [address] Social History Tobacco Use Types [...]
--- OUTSIDE RECORDS SUMMARY | 2021-11-27 14:24 | XMS_ITS | Encounter Summary ---
:1950 Author Organization [facility] Address [address] [place] [address] Care Team Providers Name Role Phone Unavailable Primary Care Provider Unavailable Reason for Visit Reason Comments DERMATITIS Encounter Details Date Type Department Care Team Description 12/02/2012 Procedure Visit [facility] Nurse, Bravo Chao DERMATITIS [address] [place] [address] Social History Tobacco Use Types [...]
--- OUTSIDE RECORDS SUMMARY | 2021-11-27 14:24 | XMS_ITS | Encounter Summary ---
:1950 Author Organization [facility] Address [address] [place] [address] Care Team Providers Name Role Phone Unavailable Primary Care Provider Unavailable Reason for Visit Reason Comments RESULTS, TEST Encounter Details Date Type Department Care Team Description 09/29/2012 Telephone [facility] Carlos Jones MD RESULTS, TEST [address] [place] [address] [place] [address] (Wo rk) Social History Tobacco [...] absence (rc 8-5) She may be reached @[phone]. Thank you. documented in this encounter Plan of Treatment Not on filedocumented as of this encounter Visit Diagnoses Not on filedocumented in this encounter
--- OUTSIDE RECORDS SUMMARY | 2021-11-27 14:24 | XMS_ITS | Encounter Summary ---
:1950 Author Organization [facility] Address [address] [place] [address] Care Team Providers Name Role Phone Unavailable Primary Care Provider Unavailable Encounter Details Date Type Department Care Team Description 09/22/2012 Lab Visit [facility] 3850 L aboratory Rash/skin eruption [address] [place], [place] [address] Social History Tobacco Use Types Packs/Day Years [...] am out of the office next week. CLERK Miscellaneous - 04/11/2016 5:07 AM CSTNotes Recorded [...] am out of the office next week. CLERK Miscellcarol - 04/11/2016 5:07 AM CSTNotes Recorded [...] am out of the office next week. CLERK Miscellaneous - 04/11/2016 5:07 AM CSTNotes Recorded [...] am out of the office next week. [facility] - 04/11/2016 5:07 AM CSTNotes Recorded [...] am out of the office next week. CLERK Miscellcarol - 04/11/2016 5:07 AM CSTNotes Recorded [...] am out of the office next week. CLERK Miscellaneous - 04/11/2016 5:07 AM CSTNotes Recorded [...] am out of the office next week. CLERK documented in this encounter Plan of Treatment [...] Results (ABNORMAL) Differential (09/22/2012 10:50 AM CDT) [facility] Method Time Signature Absolute 3.6 1.8 [...] - 09/22/2012 11:00 AM CDT Performed at [facility], [address] [place] [address] Transcriptions 04/11/2016 5:07 AM CSTNotes Recorded by [...] Megan Mcqueen MD LAB_1 Performing Organization Address City/[facility] Code Phon e Number HP CONVERSION TSH [...] Megan Mcqueen MD LAB_1 Performing Organization Address City/[facility] Code Phon e Number HP CONVERSION C-Reactive [...] - 09/22/2012 11:23 AM CDT Performed at [facility], [address] [place] [address] Transcriptions 04/11/2016 5:07 AM CSTNotes Recorded by [...] Panel(Hepatic Function Panel) (09/22/2012 10:50 AM CDT) [facility] Method Time Signature Alk Phos 94 [...] - 09/22/2012 11:23 AM CDT Performed at [facility], [address] [place] [address] Transcriptions 04/11/2016 5:07 AM CSTNotes Recorded by [...] - 09/22/2012 11:00 AM CDT Performed at [facility], [address] [place] [address] Transcriptions 04/11/2016 5:07 AM CSTNotes Recorded by [...]
--- OUTSIDE RECORDS SUMMARY | 2021-11-27 14:24 | XMS_ITS | Encounter Summary ---
:1950 Author Organization [facility] Address [address] [place] [address] Care Team Providers Name Role Phone Unavailable Primary Care Provider Unavailable Reason for Visit Reason Comments Appt. Scheduled Encounter Details Date Type Department Care Team Description 12/14/2012 Telephone [facility] 3800 Megan Son MD Appt. Scheduled Dermatology [address] [place] [address] [place] [address] [phone] Social History Tobacco Use Types Packs/Day Years [...] her husbands schedule first. She will call [phone] to schedule this appt. Megan Son MD [...]
--- OUTSIDE RECORDS SUMMARY | 2021-11-27 14:24 | XMS_ITS | Encounter Summary ---
:1950 Author Organization [facility] Address [address] [place] [address] Care Team Providers Name Role Phone Unavailable Primary Care Provider Unavailable Reason for Visit Reason Comments Rash Encounter Details Date Type Department Care Team Description 09/20/2012 Telephone [facility] Whitten Rash [address] [facility] [place], [place] [address] [address] [phone] [place], [place] [address] (Wo rk) Social History Tobacco Use Types Packs/Day Years Used Date Smoking Tobacco: Never Assessed Sex Assigned at Date Recorded Not on file documented as of this encounter Nursing Notes Denise Mon - 09/21/2012 9:20 AM CDT LM to call [phone] to schedule an appointment. Denise Mon 9:18 [...]
--- OUTSIDE RECORDS SUMMARY | 2021-11-27 14:24 | XMS_ITS | Encounter Summary ---
:1950 Author Organization [facility] Address [address] [place] [address] Care Team Providers Name Role Phone Unavailable Primary Care Provider Unavailable Encounter Details Date Type Department Care Team Description 09/28/2012 Notes/Orders [facility] 3800 Megan Son MD Rash and other Dermatology [address] nonspecific skin [address] eruption (Primary Dx) [place] [address] [phone] Social History Tobacco Use Types Packs/Day Years Used Date Smoking Tobacco: Never Assessed Sex Assigned at Date Recorded Not on file documented as of this encounter Plan of Treatment Not on filedocumented as of this encounter Visit Diagnoses Diagnosis Rash and other nonspecific skin eruption - Primary documented in this encounter
--- OUTSIDE RECORDS SUMMARY | 2021-11-27 14:25 | XMS_ITS | Continuity of Care Document ---
:1950 Author Organization [facility] Address [address] [place] [address] Phone Care Team Providers Name Role Phone [...] eval q3mo opiod tx OFFICE/OUTPATIENT VISIT, EST Drug Urine Toxology With Chromatography Drug test def 8-14 classes PT EVAL MOD COMPLEX 30 MIN THERAPEUTIC [...] EST OFFICE/OUTPATIENT VISIT, EST OFFICE/OUTPATIENT VISIT, EST -2015 OFFICE/OUTPATIENT VISIT, EST OFFICE/OUTPATIENT VISIT, EST -2015 OFFICE/OUTPATIENT VISIT, EST -2015 OFFICE/OUTPATIENT VISIT, EST -2014 OFFICE/OUTPATIENT VISIT, EST [...] Description For Visit Copied on Encounter OFFICE/OUTPAT [facility] low back Drug induced Sep-0 Pedro Specialist IENT VISIT, [facility] pain constipationRhe [facility]. 7 235 : Rohith EST Pain [place] (chief umatoid [address] Hien Henderson, Clinic, complaint) arthritisPain [place], [place] .Referri [address] in right [place], ng [place], hipPain in left [id number], Provi fredy: [place], shoulderPain in [place]. Faisal [place], left kneePain tel:[phone] Will Kaitlynn, [phone] in right ankle 36523 [address] , [place] and joints of [place], tel:[phone] right footOther Minnea chiqui [id number] spondylosis, [place], [place], cervical [address] regionOther . spondylosis, tel:[phone] lumbar [phone] regionRadiculop athy, cervical regionPostlamin ectomy syndrome, not elsewhere classifiedLong term (current) use of opiate analgesicEncoun ter for therapeutic drug level monitoring [facility] No Information Sep-0 Pedro Refer ring [facility]. 7235 Provider : Pain [place] [address] Faisal Henderson [facility], [place], Will J, [address] [place], [address] [place], [id number], [place], [place]. [place], tel:[phone] s, [place], [phone] , [place] . tel: tel: [phone] [facility] lumbago Postlaminectomy Dulen Refe ing [facility] (chief syndrome, not 0- Lois. Prov ider: Pain [place] complaint) elsewhere 2 [facility] classified [place], Will J, [facility], [address] [place], [place], [place], [place], [id number], [place], [place]. [place], [place], [id number] tel:[phone] , [place] [address] . tel: tel: [phone] OFFICE/OUTPAT [facility] low back Pain in left [facility] Specialist IENT VISIT, [facility] pain kneeDrug 0- [facility]. 7235 : R oy EST Pain [place] (chief induced [address] Hien Henderson, Clinic, complaint) constipationRhe [place], [place].Referri [address] [facility] umatoid [place], ng [place], arthritisPain [id number], Provide r: [place], in left [place]. Faisal [place], shoulderPain in tel:[phone] Arnold l J, [phone] right hipPain [address] [address] , [place] in right ankle [place], tel: and joints of Maki li [phone] right footOther [place], [place], spondylosis, [address] cervical . regionOther tel:2 spondylosis, 0997983 lumbar regionRadiculop athy, cervical regionPostlamin ectomy syndrome, not elsewhere classifiedLong term (current) use of opiate analgesic OFFICE/OUTPAT [facility] low back Drug induced [facility] Specialist IENT VISIT, [facility] pain constipationRhe 2 [facility]. 7 235 : Rohith EST Pain [place] (chief umatoid [address] Hien [place], Clinic, complaint) arthritisPain [place], [place] .Referri [address] in left [place], ng [place], shoulderPain in [id number], Provi fredy: [place], right hipPain [place]. Faisal [place], in left tel:[phone] Will J, [phone] [place] [address] [address] , [place] right ankle and [place], tel:+95 joints of right Minnea chiqui [phone] footOther s, [place], spondylosis, [address] cervical . regionOther tel:+1952 spondylosis, 1523694 lumbar regionRadiculop athy, cervical regionPostlamin ectomy syndrome, not elsewhere classifiedLong term (current) use of opiate analgesic OFFICE/OUTPAT [facility] low back Drug induced Pedro Specialist IENT VISIT, [facility] pain constipationRhe [facility]. 7 235 : Rohith EST Pain [place] (chief umatoid [address] Hien [place], Clinic, complaint) arthritisPain [place], [place] .Referri [address] in left [place], ng [place], shoulderPain in [id number], Provi fredy: [place], right hipPain [place]. Faisal [place], in left tel:[phone] Will J, [phone] [place] [address] [address] , [place] right ankle and [place], tel:+ joints of right Minnea chiqui [phone] footOther s, [place], spondylosis, [address] cervical . regionOther tel:[phone] spondylosis, 0053931 lumbar regionRadiculop athy, cervical regionPostlamin ectomy syndrome, not elsewhere classifiedLong term (current) use of opiate analgesic [facility] Radiculopathy, Balbuena Tess. Referring [facility] Surgery cervical region [address] Provid er: Pain Center 2 Faisal Henderson [facility], [place], Will J, [address] [place], [address] [place], [id number], [place], [place], [place]. [place], tel:[phone] s, [place], [phone] , [place] . tel:+ tel:[phone] OFFICE/OUTPAT [facility] low back Pain in left Pedro Specialist IENT VISIT, [facility] pain kneeRheumatoid [facility]. 72 35 : Rohith EST Pain [place] (chief arthritisPain 2 [address] Hien Henderson , Clinic, complaint) in left [place], [place].Refer ri [address] shoulderPain in DOUG, tracey Henderson, right hipPain [id number], Provide r: [place], in right ankle [place]. Faisal [place], and joints of tel: Will J, [phone] right footOther 85680 7235 O [facility] [place] spondylosis, [place], tel: cervical [place] [phone] regionOther s, [place], spondylosis, [address] lumbar . regionPostlamin tel: 52 ectomy [phone] syndrome, not elsewhere classifiedLong term (current) use of opiate analgesicRadicu lopathy, cervical regionDrug induced constipation OFFICE/OUTPAT [facility] low back Pain in left May- [facility] Specialist IENT VISIT, [facility] pain shoulderPain in [facility]. 7 235 : Rohith EST Pain [place] (chief right [address] [place] Hien, Clinic, complaint) hipRheumatoid [place], [place] .Referri [address] arthritisPain DOUG tracey Henderson, in left [phone], Provider: [place], kneePain in [place]. Faisal CAMACHO, right ankle and tel: Arnold l J, [phone] joints of right 68686 7235 [address] [facility] [place] footOther [place], tel: spondylosis, [place] [phone] cervical s, [place], regionOther [address] spondylosis, . lumbar tel: regionPostlamin [id number] ectomy syndrome, not elsewhere classifiedLong term (current) use of opiate analgesicEncoun ter for therapeutic drug level monitoring OFFICE/OUTPAT [facility] low back Pain in left [facility] Specialist IENT VISIT, [facility] pain shoulderPain in [facility]. 7 235 : Rohith EST Pain [place] (chief left kneePain [address] [place] Hien , Clinic, complaint) in right [place], [place].Refe rri [address] hipRheumatoid DOUG tracey Henderson, arthritisOther [phone], Provid er: [place], spondylosis, [place]. Faisal [place], lumbar tel: Will J, [phone] regionPostlamin 67993 7[address] [facility] [place] ectomy [place], tel: syndrome, not [place] [phone] elsewhere s, [place], classifiedPain [address] 8 in right ankle . and joints of tel:2 right footLong [id number] term (current) use of opiate analgesicOther spondylosis, cervical regionEncounter for therapeutic drug level monitoring OFFICE/OUTPAT [facility] low back Pain in left [facility] Specialist IENT VISIT, [facility] pain shoulderPain in [facility]. 7 235 : Rohith EST Pain [place] (chief left kneePain 2 [address] [place], Hien , Clinic, complaint) in right [place], [place].Refe rri [address] hipCervicalgiaR DOUG, tracey [place], heumatoid [id number], Provider: je ColemanOther [place]. Faisal CAMACHO, spondylosis, tel: Will J , [phone] lumbar 10185 [address] , [place] regionPostlamin [place], tel: ectomy [place] 19693809 syndrome, not [place], [place], elsewhere [address] classifiedPain . in right ankle tel: 2 and joints of 1209524 right footLong term (current) use of opiate analgesic OFFICE/OUTPAT [facility] low back Pain in left [facility] Specialist IENT VISIT, [facility] pain shoulderPain in [facility]. 7 235 : Rohith EST Pain [place] (chief left kneePain 2 [address] [place], Hien , Clinic, complaint) in right [place], [place].Refe rri [address] hipCervicalgiaR DOUG, tracey [place], heumatoid [phone], Provider: Jermaine Coleman [place]. Faisal CAMACHO, spondylosis, tel: Will J , [phone] lumbar 58712 [address] , [place] regionPostlamin [place], tel: ectomy [place] [phone] syndrome, not [place], [place], elsewhere [address] classifiedPain . in right ankle tel: 2 and joints of 3494007 right footLong term (current) use of opiate analgesic OFFICE/OUTPAT [facility] low back Other [facility] Speci alist IENT VISIT, [facility] pain spondylosis, [facility]. 7235 : Rohith EST Pain [place] (chief lumbar [address] [place] Hien, Clinic, complaint) [place]Pos[place], [place].Referri [address] ectomy [place], ng [place], syndrome, not [id number], Provide r: [place], elsewhere [place]. Faisal CAMACHO, classifiedPain tel:+4 Will J, [phone] in right ankle 51306 [address] , [place] and joints of [place], tel:+95 right footPain [place] [phone] in [place], [place], [place] [address] left kneePain . in right tel:+952 hipCervicalgiaR 3110747 heumatoid arthritisLong term (current) use of opiate analgesic OFFICE/OUTPAT [facility] low back Other [facility] Speci alist IENT VISIT, [facility] pain spondylosis, [facility]. 7235 : Rohith EST Pain [place] (chief lumbar 1 [address] [place], Hien, Clinic, complaint) regionPosD[place], [place].Referri [address] ectomy [place], ng [place], syndrome, not [id number], Provide r: [place], elsewhere US. Faisal CAMACHO, classifiedPain tel:+4 Will J, [phone] in right ankle 12526 [address] , [place] and joints of [place], tel:+95 right footPain [place] [phone] in left [place], [place], [place] [address]81 48 left kneePain . in right tel:+952 hipCervicalgiaR 4072037 heumatoid arthritisLong term (current) use of opiate analgesic OFFICE/OUTPAT [facility], [facility] pain spondylosis, [facility]. 7235 : Rohith EST Pain [place] (chief lumbar 1 [address] [place] Hien, Clinic, complaint) regionCor[place], [place].Referri [address] ectomy [place], ng [place], syndrome, not [id number], Provide r: [place], elsewhere US. Faisal CAMACHO, classifiedPain tel: Will J, [phone] in right ankle [address]109 [address] , [place] and joints of [place], tel: right footPain [place] [phone] in left [place], [place], [place] [address]02 48 left kneePain . in right tel: hipCervicalgiaL 4217343 meghan term (current) use of opiate analgesicEncoun ter for therapeutic drug level monitoringRheum atoid arthritis OFFICE/OUTMNT [facility] low back Other Oct- [facility] Speci ali IENT VISIT, [facility] pain spondylosis, [facility]. 7235 : Rohith EST Pain [place] (chief lumbar 1 [address] Hien Henderson, Clinic, complaint) regionCor[place], [place].Referri [address] ectomy [place], ng [place], syndrome, not [id number], Provide r: [place], elsewhere US. Faisal CAMACHO, classifiedPain tel: Will J, [phone] in right ankle 45826 [address] , [place] and joints of [place], tel: right footPain [place] [phone] in left [place], [place], [place] [address] 48 left kneePain . in right tel: hipCervicalgiaL 5442177 meghan term (current) use of opiate analgesic OFFICE/OUTMNT [facility] low back Other [facility] Speci ali IENT VISIT, [facility] pain spondylosis, [facility]. 7235 : Rohith EST Pain [place] (chief lumbar 1 [address] [place] [facility] Clinic, complaint) regionCor[place], [place].Referri [address] ectomy [place], ng [place], syndrome, not [id number], Provide r: [place], elsewhere [place]. Faisal CAMACHO, classifiedPain tel: Will J, [phone] in right ankle 28915 [address] , [place] and joints of [place], tel:+ right footPain [place] [phone] in left [place], [place], [place] [address] 48 left kneePain . in right tel:+ hipCervicalgiaL 1351329 meghan term (current) use of opiate analgesic OFFICE/OUTPAT [facility] low back Other Branden- [facility] Speci alist IENT VISIT, [facility] pain spondylosis, [facility]. 7235 : Rohith EST Pain [place] (chief lumbar 1 [address] Hien Henderson, Clinic, complaint) [place]Pos[place], [place].Referri [address] ectomy [place], ng [place], syndrome, not [id number], Provide r: [place], elsewhere [place]. Faisal [place], classifiedPain tel: Will J, [phone] in right ankle 89977 [address] , [place] and joints of [place], tel:+ right footPain [place] [phone] in left [place], [place], [place] [address] 48 left kneePain . 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 7235 Pain [place] of opiate 1 [address] [place], Clinic, analgesicEncoun [place], [address] for [place], [place], therapeutic [id number], [place], drug level [place]. [place], monitoring tel: [phone] , [place] tel: [phone] OFFICE/OUTPAT [facility] low back Other May- [facility] Speci ali IENT VISIT, [facility] pain spondylosis, [facility]. 7235 : Rohith EST Pain [place] (chief lumbar 1 [address] aSntiago Hien, Clinic, complaint) regionPos[place], [place].Referri [address] ectomy [place], ng [place], syndrome, not [id number], Provide r: [place], elsewhere [place]. Faisal [place], classifiedPain tel:4 Will J, [phone] in right ankle 69554 [address] , [place] and joints of [place], tel:+ right footPain [place] 33434311 in left [place], [place], [place] [address]47 48 left kneePain . in right tel: hipCervicalgiaL 3910089 meghan term (current) use of opiate analgesicEncoun ter for therapeutic drug level monitoring OFFICE VISIT, [facility] low back Other [facility] pain spondylosis, [facility]. 7235 : R oy TELEMEDICINE Pain [place] (chief lumbar 1 [address] [place] [facility], complaint) [facility], [address] ectomy [place], [address] [place], syndrome, not [id number], 140, [place], elsewhere [place]. [place], classifiedPain tel:284 , [place] , [phone] in right ankle 37091 15404. , [place] and joints of tel: tel: right footPain 5704820 Ref 37226867 in left erring shoulderPain in Provider : left kneePain Faisal in right Will J, hipCervicalgiaL [address] s meghan term [place], (current) use [place] of opiate s, [place], analgesicEncoun [address]-[address] for . therapeutic tel: drug level [id number] monitoring OFFICE VISIT, [facility] low back Other [facility] pain spondylosis, [facility]. 7235 : R oy TELEMEDICINE Pain [place] (chief lumbar 0 [address] [facility], Clinic, complaint) [facility]Pos[facility], [address] ectomy [place], Rd [address] [place], syndrome, not [id number], 140, [place], elsewhere [place]. [place], classifiedPain tel:284 , [place] , [phone] in right ankle 74068 [address]512. , [place] and joints of tel: tel:+ right footPain 6500766 Ref 09822531 in left erring shoulderPain in Provider : left kneePain Faisal in right Will J, hipCervicalgiaL [address] s meghan term [place], (current) use [place]iate [place], [place], analgesic [address] . tel:[phone] OFFICE/OUTPAT [facility] low back Other Pedro Speci alist IENT VISIT, [facility] pain spondylosis, 0- [facility]. 7235 : Rohith EST Pain [place] (chief lumbar 0 [address] Hien Henderson, Clinic, complaint) regionPostlamin [place], [address] ectomy [place], Rd [address] [place], syndrome, not [id number], 140, [place], elsewhere US. Lakesha CAMACHO, classifiedPain tel:+[phone] , [place] , [phone] in right ankle 06453 [address]123. , [place] and joints of tel: tel:+ right footPain 4165550 Ref 71599394 in left erring shoulderPain in Provider : left kneePain Faisal in right Will J, hipLong term [address] (current) use [place], of opiate [place] analgesicCervic s, [place], [place] [address] . tel:[phone] OFFICE/OUTPAT [facility] low back manager intermediate Pedro Harris cialist IENT VISIT, [facility] pain (current) use [facility]. 723 5 : Rohith EST Pain [place] (chief of opiate 0 [address] Hien Henderson, Clinic, complaint) analgesicPostla [place], [address] minectomy [place], Rd [address] [place], syndrome, not 245713396, 140, [place], elsewhere US. Lakesha CAMACHO, classifiedPain tel:284 , [place] , [phone] in right ankle 50499 18159. , [place] and joints of tel: tel:+ right footPain [phone] Ref 56743968 in left erring shoulderOther Provider: spondylosis, Faisal lumbar Will J, regionPain in [address] left kneePain [place], [place], [address] . tel:[phone] OFFICE VISIT, [facility] low back Postlaminectomy Fransisco flores Specialist EST [facility] pain syndrome, not [facility]. 7235 : Rohith TELEMEDICINE Pain [place] (chief elsewhere 0 [address] Narendra Henderson, Clinic, complaint) classifiedPain [place], 7 [address] in right ankle [place], Rd [address] [place], and joints of 322756193, 140, [place], right footPain [place]. Margot mclaughlin [place], in left tel:[phone] , [place], [phone] shoulderLong 30175 45715. , [place] term (current) tel: 2 tel: use of opiate [id number] ef [id number] analgesicOther erring spondylosis, Provider: lumbar Faisal De La Vega in Jaspreet Calderón, left kneePain [address] in right [place], [address] . tel:[phone] OFFICE VISIT, [facility] low back Postlaminectomy May- Pedro Specialist EST [facility] pain syndrome, not [facility]. 7235 : Rohith TELEMEDICINE Pain (chief elsewhere 0 [address] Narendra Henderson, Clinic, complaint) [facility], [address] back painPain [place], Rd [address] [place], in right ankle [address], 140, [place], and joints of [place]. [place], right footLong tel:[phone] , [place] , [phone] term (current) 53194 33342. , [place] use of opiate tel: tel: analgesicPain 8066801Q ef 47151538 in left erring shoulder Provider: Faisal Calderón, [address] [place], [address] . tel:[phone] OFFICE/OUTPAT [facility] low back Postlaminectomy Apr- Fransisco flores Specialist IENT VISIT, [facility] pain syndrome, not [facility]. 723 5 : Rohith EST Pain [place] (chief elsewhere [address] Hien Henderson, Clinic, complaint) [facility], [address] back painLong [place], Rd [address] [place], term (current) 648646929, 140, [place], use of opiate [place]. Lakesha CAMACHO, analgesicPain tel:+[phone] , [place], [phone] in right ankle 06684 [address]26. , [place] and joints of tel: tel: right foot [phone] [phone] erring Provider: Faisal Calderón, 7235 [facility] [place], [address] . tel:[phone] OFFICE/OUTPAT [facility] low back Postlaminectomy Dec-2 Kangharley s Specialist IENT VISIT, [facility] pain syndrome, not 7-201 [facility]. 723 5 : Rohith EST Pain [place] (chief elsewhere 9 [facility] [place] Hien, Clinic, complaint) classifiedLow [place], [address] back painPain [place], Rd [address] [place], in right 663[address]1204, 140, [place], handLong term [place]. [place] CAMACHO, (current) use tel:284 , [place], [phone] of opiate [address]. , [place] analgesic tel: tel: [phone] [phone] erring Provider: Faisal Calderón, 7[address] [facility] [place], [address] . tel:[phone] OFFICE/OUTPAT [facility] low back intermediate Oct-3 Pedro Harris cialist IENT VISIT, [facility] pain (current) use 0-201 [facility] 723 5 : Rohith EST Pain [place] (chief of opiate 9 [facility] [place] Hien, Clinic, complaint) analgesicPostla [place], [address] minectomy [place], Rd [address] [place], syndrome, not [id number], 140, [place], elsewhere [place]. Lakesha CAMACHO, classifiedLow tel:284 , [place], [phone] back pain 32457 91870. , [place] tel: tel: [phone] erring Provider: Faisal Calderón, 7[address] [facility] [place], [address] . tel:[phone] OFFICE/OUTPAT [facility] low back Postlaminectomy Aug-3 Fransisco s Specialist IENT VISIT, [facility] pain syndrome, not 0-201 [facility]. 723 5 : Rohith EST Pain [place] (chief elsewhere [address] [place], Hien, Clinic, complaint) classifiedLow [place], [address] back painLong [place], Rd [address] [place], term (current) 285[address]956, 140, [place], use of opiate [place]. [place] CAMACHO, analgesic tel:[phone] , DOUG, [phone] 10442 74522. , [place] tel: tel: [phone] erring Provider: Faisal Calderón, 7235 [facility] [place], [address] . tel:[phone] OFFICE/OUTPAT [facility] low back Pain in right Jose-0 Pedro Specialist IENT VISIT, [facility] pain handLow back [facility]. 7235 : Rohith EST Pain [place] (chief painPostlaminec 9 [facility] [place], Bean[place] er, Clinic, complaint) pricilla syndrome, [place], 7 [address] not elsewhere [place], Rd [address] [place], classifiedEncou [id number], 140, [place], nter for [place]. Lakesha CAMACHO, therapeutic tel:284 , DOUG, [phone] drug level 64711 22988. , [place] monitoringLong tel: 2 tel: term (current) 1179755 Ref [id number] use of opiate erring analgesic Provider: Faisal Calderón, 7235 [facility] [place], [address] . tel:[phone] OFFICE/OUTPAT [facility] low back Postlaminectomy Apr-2 Kanga s Specialist IENT VISIT, [facility] pain syndrome, not [facility]. 723 5 : Rohith EST Pain [place] (chief elsewhere [address] [place], Hien, Clinic, complaint) classifiedLow [place], [address] back painLong [place], Rd [address] [place], term (current) 636095786, 140, [place], use of opiate [place]. Lakesha CAMACHO, analgesicPain tel:[phone] , DOUG, [phone] in right hand 36091 32495. , [place] tel: tel: [phone] erring Provider: Faisal Calderón, 7[address] [facility] [place], [address] . tel:[phone] OFFICE/OUTPAT [facility] low back Intervertebral Mar-0 Pedro Specialist IENT VISIT, [facility] pain disc disorders 4-201 [facility]. 72 35 : Rohith EST Pain [place] (chief with 9 [facility] Hien Henderson, Clinic, complaint) myelopathy, [place], [address] lumbar [place], Rd [address] [place], regionLow back [id number], 140, [place], painLong term [place]. [place] CAMACHO, (current) use tel:284 , DOUG, [phone] of opiate 49196 14731. , [place] analgesic tel: tel: [phone] erring Provider: Faisal Calderón, 7[address] [facility] [place], [address] . tel:[phone] OFFICE/OUTPAT [facility] low back Postlaminectomy Dec-2 Kanga s Specialist IENT VISIT, [facility] pain syndrome, not 8-201 [facility]. 723 5 : Rohith EST Pain [place] (chief elsewhere 8 [facility] Hien Henderson, Clinic, complaint) classifiedInter [place], [address] vertebral disc [place], Rd Suit [address] [place], disorders with [id number], 140, [place], myelopathy, [place]. Lakesha CAMACHO, lumbar tel:284 , DOUG, [id number] regionLow back 44207 [id number]. , [place] pain tel: tel: [phone] [phone] erring Provider: Faisal Calderón, 7235 [facility] [place], [address] . tel:[phone] OFFICE/OUTPAT [facility] low back Postlaminectomy Nov-0 Kanga s Specialist IENT VISIT, [facility] pain syndrome, not 2-201 [facility]. 723 5 : Rohith EST Pain [place] (chief elsewhere 8 [facility] Bean Hendersoneller, Clinic, complaint) classifiedInter [place], 7373 [address] vertebral disc [place], Haven Henderson, disorders with [id number], S [address] [place], myelopathy, [place]. 306, [place], lumbar tel:4 [place], [id number] regionLow back 67031 34442. , [place] painLong term tel: tel: (current) use [phone] ef [phone] of opiate erring analgesic Provider: Faisal Cadlerón, 7235 [facility] [place], [address] . tel:[phone] OFFICE/OUTPAT [facility] low back Postlaminectomy Kasey mclaughlin Specialist IENT VISIT, [facility] pain syndrome, not 8[address]. 14 55 : Rohith EST Pain [place] (chief elsewhere [address] [facility] [address] 11 [facility], [facility], complaint) classifiedLow [place] [address], [address] back pain [place], Haven A ve [place], [place], S [address] [place], [id number], 306, [place], [place]. [place], [id number] tel: [phone]. , [place] [address] tel: tel: [phone] erring Provider: Faisal Calderón, [address] [place], [address] . tel:[phone] OFFICE/OUTPAT [facility] low back Low back Jose-0 Pedro Spec ialist IENT VISIT, [facility] pain painPostlaminec 5-201 [facility]. 7 235 : Rohith EST Pain [place] (chief pricilla syndrome, 8 [address] [place], Narendra r, Clinic, complaint) not elsewhere [place], 73 73 [address] classified [place], Haven Henderson, [id number], S [address] [place], [place]. 306, [place], tel: [place], [place], [phone] [address]7972 [address]. , [place] tel: tel: [phone] [phone] erring Provider: Faisal Calderón, [address] [place], [address] . tel:[phone] OFFICE/OUTPAT [facility] low back Low back June-0 Pedro Spec ialist IENT VISIT, [facility] pain painPostlaminec 3 [facility]. 7 235 : Rohith EST Pain [place] (chief pricilla syndrome, 8 [address] [place], Moelle r, Clinic, complaint) not elsewhere [place], 73 73 [address] classified DOUG, Haven Henderson, [id number], S [address] [place], [place]. 306, [place], tel:+[phone] DOUG Coleman, [phone] 35832 43482. , [place] tel: tel: [phone] [phone] erring Provider: Faisal Calderón, [address] [place], [address] . tel:[phone] OFFICE/OUTPAT [facility] low back Low back Apr-0 Pedro Spec ialist IENT VISIT, [facility] pain painPostlaminec 6 [facility]. 7 235 : Rohith EST Pain [place] (chief pricilla syndrome, 8 [address] [place], Moelle r, Clinic, complaint) not elsewhere [place], 73 73 [address] classified DOUG, Haven Henderson, [id number], S Suite [place], [place]. 306, [place], tel:+37515 DOUG Coleman, [phone] 18809 69366. , [place] tel: tel: [phone] [phone] erring Provider: Faisal Calderón, 7[address] [place], [address] . tel:[phone] OFFICE/OUTPAT [facility] low back Low back Dennis-0 Pedro Spec ialist IENT VISIT, [facility] pain painPostlamine 3 [facility]. 7 235 : Rohith EST Pain [place] (chief pricilla syndrome, 8 [address] [place], Moelle r, Clinic, complaint) not elsewhere [place], 73 73 [address] classified DOUG, Haven Elizabeth Santiago, [id number], S Suite [place], [place]. 306, [place], tel:+71054 DOUG Coleman, [phone] 20682 73096. , [place] tel:+ tel:[phone] [phone] erring Provider: Faisal Calderón, 7[address] Shiraz Henderson [place], [address] . tel:[phone] OFFICE/OUTPAT [facility] low back Low back Nov-0 Pedro Spec ialist IENT VISIT, [facility] pain painPostlaminec 6 [facility]. 7 235 : Rohith EST Pain [place] (chief pricilla syndrome, 7 [address] [place], Moelle r, Clinic, complaint) not elsewhere [place], 73 73 [address] classified DOUG, Haven Henderson, [id number], S Suite [place], [place]. 306, [place], tel:+37526 DOUG Coleman, [phone] 77528 04955. , [place] tel: tel: [phone] [phone] erring Provider: Faisal Calderón, 7235 Shiraz Henderson [place], [address] . tel:[phone] OFFICE/OUTPAT [facility] low back Low back Sep-0 Pedro Spec ialist IENT VISIT, [facility] pain painPostlaminec [facility]. 7 235 : Rohith EST Pain [place] (chief pricilla syndrome, 7 [address] [place], Beanjimmy r, Clinic, complaint) not elsewhere [place], 73 73 [address] classified DOUG, Haven Henderson, [id number], S Suite [place], [place]. 306, [place], tel:+27287 DOUG Coleman, [phone] 31391 68396. , [place] tel:+ tel:[phone] erring Provider: Fasial Calderón, 7[address] Shiraz Henderson [place], [address] . tel:[phone] OFFICE/OUTPAT [facility] low back Low back Jose-0 Pedro Spec ialist IENT VISIT, [facility] pain painPostlaminec 7-201 [facility]. 7 235 : Rohith EST Pain [place] (chief pricilla syndrome, 7 [address] [place], Moelle r, Clinic, complaint) not elsewhere [place], 73 73 [address] classified [place], Haven Henderson, [id number], S Suite [place], [place]. 306, [place], tel:+83934 DOUG Coleman, [phone] 58393 05432. , [place] tel:+ tel:+ [phone] erring Provider: Faisal Calderón, 7235 [facility] [place], [address] . tel:[phone] OFFICE/OUTPAT [facility] low back Low back pain May-0 Pedro Specialist IENT VISIT, [facility] pain 9-201 [facility]. 7235 : Ro y EST Pain [place] (chief 7 [facility] Hien Henderson, Clinic, complaint) [place], [address]373 [address] DOUG, Haven Henderson, [id number], S Suite [place], [place]. 306, [place], tel:+39894 DOUG Coleman, [phone] 66250 53539. , [place] tel:+ tel:[phone] [phone] erring Provider: Faisal Calderón, [address] [place], [address] . tel:[phone] OFFICE/OUTPAT [facility] low back Low back pain Mar-1 Pedro Specialist IENT VISIT, [facility] pain 0-201 [facility]. 7235 : Ro y EST Pain [place] (chief 7 [facility] Hien Henderson, Clinic, complaint) [place], [address] DOUG, Haven Henderson, [id number], S Suite [place], [place]. 306, [place], tel:+98221 DOUG Coleman, [phone] 54835 35104. , [place] tel:+952 tel:[phone] [phone] erring Provider: Faisal Calderón, 7235 [facility] [place], [address] . tel:[phone] OFFICE/OUTPAT [facility] low back Low back pain Dennis-0 Pedro Specialist IENT VISIT, [facility] pain 3-201 [facility]. 7235 : Ro y EST Pain [place] (chief 7 [address] [place], Hien, Clinic, complaint) [place], 7373 [address] [place], Haven Henderson, [id number], S [address] [place], [place]. 306, [place], tel:+[phone] [place], [place], [phone] 38988 37449. , [place] tel:+ tel:[phone] [phone] erring Provider: Faisal Calderón, 7235 [facility] [place], [address] . tel:[phone] OFFICE/OUTPAT [facility] low back Low back Nov-0 Pedro Spec ialist IENT VISIT, [facility] pain painPostlaminec 4- [facility]. 7 235 : Rohith EST Pain [place] (chief pricilla syndrome, 6 [address] [place], Beanelle r, Clinic, complaint) not elsewhere [place], 73 73 [address] classified [place], Haven Elizabeth [place], [id number], S Suite [place], [place]. 306, [place], tel:+84772 DOUG Coleman, [id number] 14024 92387. , [place] tel:+57 tel:[phone] [phone] erring Provider: Faisal Calderón, 7235 [facility] [place], [address] . tel:[phone] OFFICE/OUTPAT [facility] low back Low back Sep-0 Pedro Spec ialist IENT VISIT, [facility] pain painPain in 8 [facility]. 7235 : Rohith EST Pain [place] (chief left shoulder 6 [address] [place] Hien , Clinic, complaint) [place], 7373 [address] [place], Haven Elizabeth [place], [id number], S Suite [place], [place]. 306, [place], tel:[phone] DOUG Coleman, [phone] 19745 64647. , [place] tel:+44 tel:[phone] erring Provider: Faisal Calderón, 7235 [facility] [place], [address] . tel:[phone] OFFICE/OUTPAT [facility] low back Low back Aug- Pedro Spec ialist IENT VISIT, [facility] pain painPain in [facility]. 7235 : Rohith EST Pain [place] (chief left 6 [address] [place], Hien, Clinic, complaint) shoulderPain in [place], 7373 [address] right ankle and [place], Haven Henderson, joints of right [id number], S Priscilla te [place], foot [place]. 306, [place], tel:+[phone] [place], [place], [phone] 21216 63611. , [place] tel: tel: [phone] [phone] erring Provider: Faisal Calderón, [address] [place], [address] . tel:[phone] OFFICE/OUTPAT [facility] low back Low back June- Pedro Spec ialist IENT VISIT, [facility] pain painPain in [facility]. 7235 : Rohith EST Pain [place] (chief left shoulder 6 [address] [place], Hien , Clinic, complaint) [place], 7373 [address] [place], Haven Henderson, [id number], S Suite [place], [place]. 306, [place], tel:+[phone] [place], [phone] 31388 66572. , [place] tel: tel:[phone] [phone] erring Provider: Faisal Calderón, [address] [place], [address] . tel:[phone] OFFICE/OUTPAT [facility] low back Low back Apr- Pedro Spec ialist IENT VISIT, [facility] pain painPain in [facility]. 7235 : Rohith EST Pain [place] (chief left shoulder 6 [address] [place], Hien , Clinic, complaint) [place], 7373 [address] [place], Haven Che [place], [id number], S Suite [place], [place]. 306, [place], tel:+28794 DOUG Coleman, [phone] 83290 41981. , [place] tel:+ tel:+ [phone] erring Provider: Faisal Calderón, [address] [place], [address] . tel:[phone] OFFICE/OUTPAT [facility] low back Low back Dennis- Pedro Spec ialist IENT VISIT, [facility] pain painPain in [facility]. 7235 : Rohith EST Pain [place] (chief right ankle and 6 [address] [place], Moell er, Clinic, complaint) joints of right [place], 7373 7[address] footPain in [place], Haven Henderson, left shoulder [id number], S Suite [place], [place]. 306, [place], tel:+37601 DOUG Coleman, [phone] 27121 60533. , [place] tel: tel:[phone] [id number] erring Provider: Faisal Calderón, [address] [place], [address] . tel:[phone] OFFICE/OUTPAT [facility] low back Low back Nov-0 [facility] Spec ialist IENT VISIT, [facility] pain painPostlaminec [facility]. 7 235 : Rohith EST Pain [place] (chief pricilla syndrome, 5 [address] [place], Moelle r, Clinic, complaint) not elsewhere [place], 73 73 7[address] classified [place], Haven Henderson, [id number], S Suite [place], [place]. 306, [place], tel:+[phone] [place], DOUG, [id number] 53553 83764. , [place] tel: tel:[phone] OFFICE/OUTPAT [facility] low back Ankylosis of Sep- [facility] Specialist IENT VISIT, [facility] pain ankle and foot [facility]. 72 35 : Rohith EST Pain [place] (chief jointDegenerati 5 [address] [place], Moell er, Clinic, complaint) on of lumbar or [place], 7373 7235 [address] lumbosacral [place], Haven [address] [place], intervertebral [id number], S Suit e [place], discEnthesopath [place]. 306, [place], y of hip tel: [place], [place], [phone] regionIntervert [phone]. , [place] ebral disc tel: tel: disorder with [phone] myelopathy, lumbar regionLumbagoPa in in joint involving ankle and footPain in joint involving lower legPostlaminect nikita syndrome of lumbar regionPain in joint involving shoulder region OFFICE/OUTPAT [facility] low back Ankylosis of Pedro Specialist IENT VISIT, [facility] pain ankle and foot 6-201 [facility]. 72 35 : Rohith EST Pain [place] (chief jointDegenerati 5 [facility] Bean Hendersonanastacio er, Clinic, complaint) on of lumbar or [place], 7373 7[address] [place] lumbosacral [place], Haven [address] [place], intervertebral [id number], S Suit e [place], discEnthesopath [place]. 306, [place], y of hip tel: [place], DOUG, [phone] regionIntervert [phone]. , [place] ebral disc tel: tel: disorder with [phone] myelopathy, lumbar regionLumbagoPa in in joint involving ankle and footPain in joint involving lower legPostlaminect nikita syndrome of lumbar region OFFICE/OUTPAT [facility] low back Acquired Pedro Spec ialist IENT VISIT, [facility] pain musculoskeletal 3-201 [facility]. 7 235 : Rohith EST Pain [place] (chief deformity of 5 [address] Bean Hendersoneller, Clinic, complaint) unspecified [place], 7373 [address] siteAnkylosis [place], Haven A dinorah [place], of ankle and [id number], S Suite [place], foot [place]. 306, [place], jointDegenerati tel: [place], [place], [id number] [place] [address] 55860. , [place] lumbosacral tel: tel: intervertebral [phone] discEnthesopath y of hip regionIntervert ebral disc disorder with myelopathy, lumbar regionLumbagoPa in in joint involving ankle and footPain in joint involving lower legPostlaminect nikita syndrome of lumbar region OFFICE/OUTPAT [facility] low back Ankylosis of Pedro Specialist IENT VISIT, [facility] pain ankle and foot 8-201 [facility]. 72 35 : Rohith EST Pain [place] (chief jointDegenerati 5 [address] Olman Henderson, Clinic, complaint) on of lumbar or [place], 7373 7235 [address] lumbosacral [place], Haven Henderson, intervertebral [id number], S Suit e [place], discEnthesopath [place]. 306, [place], y of hip tel: [place], [place], [phone] regionIntervert [phone]. , [place] ebral disc tel: tel: disorder with [phone] myelopathy, lumbar regionLumbagoPa in in joint involving ankle and footPain in joint involving lower legPostlaminect nikita syndrome of lumbar region OFFICE/OUTPAT [facility] low back Degeneration of Fransisco s Specialist IENT VISIT, [facility] pain lumbar or 6-201 [facility]. 7235 : Rohith EST Pain [place] (chief lumbosacral 5 [address] Hien Henderson, Clinic, complaint) intervertebral [place], 7 373 7235 [address] discEnthesopath [place], Haven Clara Henderson, y of hip [id number], S Suite [place], regionIntervert [place]. 306, [place], ebral disc tel: [place], M N, [id number] disorder with [phone] [phone]. , [place] myelopathy, tel: tel: lumbar [phone] regionLumbagoPa in in joint involving ankle and footPain in joint involving lower legPostlaminect nikita syndrome of lumbar regionAnkylosis of ankle and foot joint OFFICE/OUTPAT [facility] Back Pain Ankylosis of Pedro Specialist IENT VISIT, [facility] (chief ankle and foot 0-201 [facility]. 72 35 : Rohith EST Pain [place] complaint) jointDegenerati 4 [address] Bean Henderson, Clinic, on of lumbar or [place], 737 3 7235 [place] lumbosacral [place], Haven [address] [place], intervertebral [id number], S Suit e [place], discEnthesopath [place]. 306, [place], y of hip tel: DOUG Coleman, [phone] regionIntervert [phone]. , [place] ebral disc tel: tel: disorder with [phone] myelopathy, lumbar regionLumbagoPo stlaminectomy syndrome of lumbar region OFFICE/OUTPAT [facility] back pain Postlaminectomy Nov Carpenter as Specialist IENT VISIT, [facility] (chief syndrome of [facility]. 7235 : Rohith EST Pain [place] complaint) lumbar 4 [address] Hien Henderson, Clinic, regionPain in [place], 7373 7235 [address] joint involving [place], Haven [address] [place], ankle and [id number], S Suite [place], footLumbago [place]. 306, [place], tel: DOUG Coleman, [phone] [phone] 50729. , [place] tel: tel: [phone] OFFICE/OUTPAT [facility] low back Postlaminectomy Sep- Monico Specialist IENT VISIT, [facility] pain syndrome of Ayana. : Rohith EST Pain [place] (chief lumbar 4 7235 [address] Hien, Clinic, complaint) regionPain in [place], 7373 7[address] joint involving [place], F [address] [place], ankle and foot [place], S Suite [place], [id number], 306, [place], [place]. [place], [place], [id number] tel: [phone]. , [place] [address] tel: tel: [phone] OFFICE/OUTPAT [facility] back and Pain in joint Pedro Specialist IENT VISIT, [facility] right foot involving ankle [facility] . 7235 : Rohith EST Pain [place] pain and footLumbago 4 [address] Olman Henderson er, Clinic, (chief [place], 7373 7235 [address] complaint) [place], Haven Henderson, [id number], S Suite [place], [place]. 306, [place], tel:+37546 [place], [place], [phone] 67665 88861. , [place] tel: tel: [phone] OFFICE/OUTPAT [facility] back and Pain in joint Pedro Specialist IENT VISIT, [facility] right foot involving ankle 3-201 [facility] . 7235 : Rohith EST Pain [place] pain and 4 [address] Hien Henderson, Clinic, (chief footLumbagoPain [place], 737 3 7235 [address] complaint) in joint [place], Haven Henderson, involving lower [id number], S Priscilla te [place], leg [place]. 306, [place], tel:+[phone] [place], [place], [phone] 43769 16818. , [place] tel: tel: [phone] OFFICE/OUTPAT [facility] right foot Pain in joint Kanga s Specialist IENT VISIT, [facility] pain involving ankle 4-201 [facility]. 7 235 : Rohith EST Pain [place] (chief and footLumbago 4 [address] Olman Henderson er, Clinic, complaint) [place], 7373 7235 [address] low back [place], Haven Henderson, pain [id number], S Suite [place], (chief [place]. 306, [place], complaint) tel:[phone] [place], M N, [id number] 85807 47176. , [place] tel: tel: [phone] [facility] No Information Will Faisal. [facility] 8-201 7[address] Pain [place] 4 [place], Clinic, [place], [address] [place], [place], [id number], [place], [place]. [place], tel:[phone] 92366 , [place] tel: [phone] OFFICE/OUTPAT [facility] right foot Pain in joint Will Faisal. Specialist IENT VISIT, [facility] pain involving ankle 3-201 7235 Oh[address] s : Rohith EST Pain [place] (chief and foot 4 Bean Hendersoneller, Clinic, complaint) [place], 7373 7[address] [place], Haven Henderson, [id number], S Suite [place], [place]. 306, [place], tel:14205 [place], [place], [id number] 71935 50232. , [place] tel: tel: [phone] [place] [address] right foot Pain in joint No Spe cialist [facility] pain involving ankle 2-201 Information : Rohith Pain [place] (chief and foot 3 Hien, Clinic, complaint) 7373 [address] Haven Henderson, S [address] [place], 306, [place], [place], [place], [id number] 50471. , [place] tel: tel: [phone] OFFICE/OUTPAT [facility] right foot Pain in joint No Specialist IENT VISIT, [facility] pain involving ankle 1-201 Informat ion : Rohith EST Pain [place] (chief and foot 3 Hien, Clinic, complaint) 7373 [address] Haven Henderson, S [address] [place], 306, [place], [place], [place], [id number] 39762. , [place] tel: tel: [phone] OFFICE/OUTPAT [facility] right foot Pain in joint No Specialist IENT VISIT, [facility] pain involving ankle 6- Informat ion : Rohith EST Pain [place] (chief and foot 3 Hien, Clinic, complaint) 7373 [address] Haven Henderson, [address] [place], 306, [place], [place], [place], 469074067 [address]25. , [place] tel: tel: [phone] OFFICE/OUTPAT [facility] right foot Pain in joint No Specialist IENT VISIT, [facility] pain involving ankle 9-201 Informat ion : Rohith EST Pain [place] (chief and 3 Hien, Clinic, complaint) footDegeneratio 7373 7235 [address] n of lumbar or Haven Henderson, lumbosacral S [address] [place], intervertebral 306, [place], disc [place], [place], [id number] [address]802. , [place] tel: tel: [phone] OFFICE/OUTPAT [employer] [facility] right foot Pain in joint No Specialist IENT VISIT, [facility] pain involving ankle 0-201 Informat ion : Rohith EST Pain [place] (chief and foot 3 Hien, Clinic, complaint) 7373 [address] Haven Henderson [address] [place], 306, [place], [place], [place], [id number] 99086. , [place] tel: tel: [phone] OFFICE/OUTPAT [facility] right foot Pain in joint No Specialist IENT VISIT, [facility] pain involving ankle 1-201 Informat ion : Rohith EST Pain [place] (chief and foot 2 Hien, Clinic, complaint) 7373 [address] Haven Henderson, S [address] [place], 306, [place], [place], [place], [id number] 92232. , [place] tel: tel: [phone] OFFICE/OUTPAT [facility] right foot Pain in joint No Specialist IENT VISIT, [facility] pain involving ankle 4-201 Informat ion : Rohith EST Pain [place] (chief and foot 2 Hien, Clinic, complaint) 7373 [address] Haven Henderson, S [address] [place], 306, [place], [place], [place], 120417933 16004. , [place] tel: tel: [phone] OFFICE/OUTPAT [facility] right foot Pain in joint Will Faisal. IENT VISIT, [facility] pain involving ankle 2-201 7235 Ohm s EST Pain [place] (chief and foot 2 [place], Clinic, complaint) [facility] [address] [place], [id number], [place], [place], tel:[phone] 35731 , [place] tel: [phone] OFFICE/OUTPAT [facility] right foot Pain in joint Will Faisal. IENT VISIT, [facility] pain involving ankle 7-201 7235 Ohm s EST Pain [place] (chief and foot 2 [place], Clinic, complaint) [place], [address]235 [address] Santiago [place], [id number], [place], [place], tel:[phone] 17630 , [place] tel: [phone] OFFICE/OUTPAT [employer] [facility] right foot Pain in joint Will Faisal. IENT VISIT, [facility] pain involving ankle 7- 7235 Ohm s EST Pain [place] (chief and foot 2 [place], Clinic, complaint) [place], [address]235 [address] DOUG, [place], [id number], [place], [place], tel:[phone] 28493 , [place] tel: [phone] OFFICE/OUTPAT [employer] [facility] right foot Pain in joint Will Faisal. IENT VISIT, [facility] pain involving ankle 7- 7235 Ohm s EST Pain [place] (chief and 2 [place], Clinic, complaint) footEnthesopath [place], 7235 [address] y of hip region [place], [place], [id number], [place], [place]. [place], tel:[phone] 77177 , [place] tel: [phone] OFFICE/OUTPAT [employer] [facility] right foot Pain in joint Will Faisal. IENT VISIT, [facility] pain involving ankle 0-201 7235 Ohm s EST Pain [place] (chief and foot 1 [place], Clinic, complaint) [place], [address]235 [address] [place], [place], [id number], [place], [place]. [place], tel:[phone] 67541 , [place] tel: [phone] OFFICE/OUTPAT [employer] [facility] right foot Pain in joint Will Faisal. IENT VISIT, [facility] pain and involving ankle 4-201 7235 Oh ms EST Pain [place] low back and 1 [place], Clinic, pain footInterverteb [place], 7235 [address] (chief ral disc [place], [place], complaint) disorder with [id number], [place], myelopathy, [place], lumbar region tel:[phone] 33748 , [place] tel: [phone] OFFICE/OUTPAT [employer] [facility] low back Intervertebral Aug Will Harley doramn. IENT VISIT, [facility] pain disc disorder - 7235 [address] EST Pain [place] (chief with 1 [place], Clinic, complaint) myelopathy, [place], 7235 [address] right foot lumbar [place], pain regionPain in [id number], [place], (chief joint involving [place]. [place], complaint) ankle and foot tel:[phone] [phone] , [place] tel: [phone] OFFICE/OUTPAT [employer] [facility] right foot Pain in joint Will Faisal. IENT VISIT, [facility] pain involving ankle 7235 Oh[address] s EST Pain [place] (chief and 1 [place], Clinic, complaint) footInterverteb [place], 35 [place] low back ral disc [place]NS[place], pain disorder with [id number], [place], (chief myelopathy, [place], complaint) lumbar region tel: [phone] , [place] tel: [phone] OFFICE/OUTPAT [employer] [facility] right foot Pain in joint Will Faisal. IENT VISIT, [facility] pain involving ankle [address] Pain [place] (chief and 1 [place], Clinic, complaint) footAcquired [place] [address] [address] musculoskeletal [place], [place], deformity of [id number], [place], [place], site tel:[phone] , [place] tel: [phone] [facility] [employer] [facility] right foot Acquired Will Noah fish. IENT VISIT, [facility] pain musculoskeletal [address] EST Pain [place] (chief deformity of 1 [place], Clinic, complaint) unspecified [place] [address] [place] sitePain in [place], [place], joint involving [id number], [place], ankle [place] foot [place], tel:[phone] , [place] tel: [phone] [facility] [employer] [facility] right foot Pain in joint Will Faisal. IENT VISIT, [facility] pain involving ankle [address] EST Pain [place] (chief and 0 [place], Clinic, complaint) footAcquired [place] [address] [address] [place]culoskeletal [place], [place], deformity of [id number], [place], [place], site tel:[phone] , [place] tel: [phone] OFFICE/OUTPAT [facility] right foot Acquired Will Noah moulton IENT VISIT, [facility] pain musculoskeletal 4- [address] EST Pain [place] (chief deformity of 0 [place], Clinic, complaint) unspecified [place] [address] [place], [place], joint involving [id number], [place], ankle [place] foot [place], tel:[phone] , [place] tel: [phone] OFFICE/OUTPAT [facility] right foot Acquired Will Noah moulton IENT VISIT, [facility] pain musculoskeletal 5- [address] EST Pain [place] (chief deformity of 0 [place], Clinic, complaint) unspecified [place] [address] [place], [place], joint involving [id number], [place], ankle and [place], footAnkylosis tel:[phone] of ankle and [address] , [place] foot joint tel: [phone] OFFICE/OUTPAT [facility] right foot Pain in joint Will Faisal. IENT VISIT, [facility] pain involving ankle 3-201 [address] EST Pain [place] (chief and 0 [place], Clinic, complaint) footAcquired [address] [place]culoskeletal [place], [place], deformity of [id number], [place], [place], site tel:[phone] , [place] tel: [phone] [facility] right foot Acquired Will Faisal. [facility] pain musculoskeletal 7 [address] Pain [place] (chief deformity of 0 [place], Clinic, complaint) unspecified [place] [address] [place], [place], joint involving [id number], [place], ankle and foot [place], tel:[phone] , [place] tel: [phone] OFFICE/OUTPAT [facility] foot pain Pain in joint Will Harley dorman. IENT VISIT, [facility] (chief involving ankle 4-201 [address] Pain [place] complaint) and 0 [place], Clinic, footAcquired [place], [address] musculoskeletal [place], [place], deformity of [id number], [place], [place], siteAnkylosis tel:[phone] of ankle and [address] , [place] foot jointViral tel: [phone] OFFICE/OUTPAT [facility] right foot Pain in joint Will Faisal. IENT VISIT, [facility] pain involving ankle 0-200 [address] Pain [place] (chief and 9 [place], Clinic, complaint) footAcquired [place], [address] musculoskeletal [place], [place], deformity of [id number], [place], [place], siteAnkylosis tel: [phone] of ankle and [address] , [place] foot joint tel: [phone] [facility] Foot pain Pain in joint Will Faisal. [facility] (chief involving ankle 0-200 [address] Pain [place] complaint) and 9 [place], Clinic, footAcquired [place], [address] musculoskeletal [place], [place], deformity of [id number], [place], 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 [facility] pain ankle and foot 6-200 [address] Pain [place] (chief joint 9 [place], Clinic, complaint) [place], [address] [place], [place], [id number], [place], [place], tel:[phone] , [place] tel: [phone] Family History Family Member Type Diagnosis Age At Onset Mother Problem (finding) back pain Payers Payer name Insurance type Covered libertarian ID Authorization(s ) [facility] MedicareComplete Replacement 16 [id number] Social History Type Description Quantity Date Captured [...] And Reason For Visit From encounter dated 11/08/2021 14:40'. low back pain (chief complaint). Description: [...] Of Treatment Date Type Action Status Goal OARS. Due on due Goal Tobacco Use. Due on due Goal Update Social History. Due on due Goal Zoster vaccine (1st). Due on Oct due Goal TAPE RECORDER REPAIRER Paperwork. Due on due Goal ALT (SGPT). Due on d ue Goal Review Allergy List. Due on due Goal Order Annual PT. Due on due Goal Creatinine. Due on d ue Goal UDT. Due on due Goal PHQ-9. Due on due Goal FIT-DNA. Due on due Goal CT-Colonography. Due on due Goal Medication Reconciliation. Due o n due Goal FIT. Due on due Goal Lipid panel. Due on due Goal AST (SGOT). Due on d ue Goal SPORTS MANAGEMENT PROFESSOR Scanned. Due on due Goal Height. Due on due Goal Hepatitis C screening. Due on due Goal Unhealthy drug use screening. Du e on due Goal Weight. Due on due Goal Update Social History. Due on due Goal Order Annual PT. Due on due Goal PHQ-9. Due on due Goal UDT. Due on due Goal Tobacco Use. Due on due Goal FIT. Due on due Goal Height. Due on due Goal OARS. Due on due Goal Creatinine. Due on d ue Goal ALT (SGPT). Due on d ue Goal Review Allergy List. Due on due Goal Unhealthy drug use screening. Du e on due Goal FIT-DNA. Due on due Goal CT-Colonography. Due on due Goal Zoster vaccine (1st). Due on Oct due Goal Lipid panel. Due on due Goal AST (SGOT). Due on d ue Goal Hepatitis C screening. Due on due Goal Medication Reconciliation. Due o n due Goal TAPE RECORDER REPAIRER Paperwork. Due on due Goal SPORTS MANAGEMENT PROFESSOR Scanned. Due on due Goal Weight. Due on due Goal SPORTS MANAGEMENT PROFESSOR Scanned. Due on due Goal Order Annual PT. Due on due Goal Unhealthy drug use screening. Du e on due Goal TAPE RECORDER REPAIRER Paperwork. Due on due Goal Medication Reconciliation. Due o n due Goal Creatinine. Due on d ue Goal UDT. Due on due Goal OARS. Due on due Goal AST (SGOT). Due on d ue Goal ALT (SGPT). Due on d ue Goal Height. Due on due Goal Review Allergy List. Due on due Goal FIT-DNA. Due on due Goal Weight. Due on due Goal Tobacco Use. Due on due Goal Lipid panel. Due on due Goal Zoster vaccine (). Due on Sep due Goal CT-Colonography. Due on due Goal PHQ-9. Due on due Goal Update Social History. Due on due Goal Hepatitis C screening. Due on due Goal FIT. Due on due Goal UDT. Due on due Goal Zoster vaccine (1st). Due on Sep due Goal PHQ-9. Due on due Goal AST (SGOT). Due on d ue Goal Tobacco Use. Due on due Goal Medication Reconciliation. Due o n due Goal Order Annual PT. Due on due Goal FIT-DNA. Due on due Goal SPORTS MANAGEMENT PROFESSOR Scanned. Due on due Goal FIT. Due on due Goal Review Allergy List. Due on due Goal Weight. Due on due Goal TAPE RECORDER REPAIRER Paperwork. Due on due Goal Height. Due on due Goal OARS. Due on due Goal ALT (SGPT). Due on d ue Goal Creatinine. Due on d ue Goal Lipid panel. Due on due Goal Hepatitis C screening. Due on due Goal Update Social History. Due on due Goal CT-Colonography. Due on due Goal Unhealthy drug use screening. Du e on due Goal AST (SGOT). Due on d ue Goal Order Annual PT. Due on due Goal ALT (SGPT). Due on d ue Goal OARS. Due on due Goal Creatinine. Due on d ue Goal SPORTS MANAGEMENT PROFESSOR Scanned. Due on due Goal TAPE RECORDER REPAIRER Paperwork. Due on due Goal UDT. Due on due Goal Height. Due on due Goal Medication Reconciliation. Due o n due Goal FIT-DNA. Due on due Goal Review Allergy List. Due on due Goal Hepatitis C screening. Due on due Goal FIT. Due on due Goal Lipid panel. Due on due Goal Unhealthy drug use screening. Du e on due Goal Tobacco Use. Due on due Goal PHQ-9. Due on due Goal Weight. Due on due Goal CT-Colonography. Due on due Goal Update Social History. Due on due Goal Zoster vaccine (1st). Due on Aug due Goal TAPE RECORDER REPAIRER Paperwork. Due on due Goal Height. Due on due Goal OARS. Due on due Goal FIT. Due on due Goal AST (SGOT). Due on d ue Goal Order Annual PT. Due on due Goal ALT (SGPT). Due on d ue Goal UDT. Due on due Goal SPORTS MANAGEMENT PROFESSOR Scanned. Due on due Goal Creatinine. Due on d ue Goal Update Social History. Due on due Goal Tobacco Use. Due on due Goal Hepatitis C screening. Due on due Goal Unhealthy drug use screening. Rusty simmons on due Goal Review Allergy List. Due on due Goal Weight. Due on due Goal Medication Reconciliation. Due o n due Goal CT-Colonography. Due on due Goal Zoster vaccine (). Due on Jul due Goal PHQ-9. Due on due Goal FIT-DNA. Due on due Goal Lipid panel. Due on due Goal Review Allergy List. Due on due Goal Unhealthy drug use screening. Rusty simmons on due Goal Zoster vaccine (). Due [...] AST (SGOT). Due on d ue Goal TAPE RECORDER REPAIRER Paperwork. Due on due Goal OARS. Due on due Goal SPORTS MANAGEMENT PROFESSOR Scanned. Due on due Goal UDT. Due [...] due Goal CT-Colonography. Due on due Goal TAPE RECORDER REPAIRER Paperwork. Due on due Goal Weight. Due on due Goal Order Annual PT. Due on due Goal Hepatitis C screening. Due on due Goal AST (SGOT). Due on d ue Goal UDT. Due on due Goal ALT (SGPT). Due on d ue Goal Update Social History. Due on Ap due Goal Unhealthy drug use screening. Du e on due Goal SPORTS MANAGEMENT PROFESSOR Scanned. Due on due Goal Creatinine. Due on d ue Goal OARS. Due on due Goal FIT. Due on due Goal Review Allergy List. Due on due Goal Height. Due on due Goal FIT-DNA. Due on due Goal Zoster vaccine (1st). Due on May due Goal Review Allergy List. Due on due Goal PHQ-9. Due on due Goal Weight. Due on due Goal Medication Reconciliation. Due o n due Goal TAPE RECORDER REPAIRER Paperwork. Due on due Goal SPORTS MANAGEMENT PROFESSOR Scanned. Due on due Goal Order Annual PT. Due on 022 due Goal Creatinine. Due on d ue Goal UDT. Due on due Goal Height. Due on due Goal Update Social History. Due on Nj due Goal OARS. Due on due Goal ALT (SGPT). Due on d ue Goal Tobacco Use. Due on due Goal AST (SGOT). Due on d ue Goal SPORTS MANAGEMENT PROFESSOR Scanned. Due on due Goal AST (SGOT). Due on d ue Goal ALT (SGPT). Due on d ue Goal UDT. Due on due Goal Review Allergy List. Due on due Goal Order Annual PT. Due on 022 due Goal OARS. Due on due Goal TAPE RECORDER REPAIRER Paperwork. Due on due Goal Update Social History. Due on due Goal Weight. Due on due Goal PHQ-9. Due on due Goal Height. Due on due Goal Medication Reconciliation. Due o n due Goal Tobacco Use. Due on due Goal Creatinine. Due on d ue Goal OARS. Due on due Goal SPORTS MANAGEMENT PROFESSOR Scanned. Due on due Goal Tobacco Use. Due on due Goal Order Annual PT. Due on due Goal TAPE RECORDER REPAIRER Paperwork. Due on due Goal PHQ-9. Due on due Goal Review Allergy List. Due on due Goal Update Social History. Due on due Goal Weight. Due on due Goal Medication Reconciliation. Due o n due Goal Height. Due on due Goal AST (SGOT). Due on d ue Goal UDT. Due on due Goal ALT (SGPT). Due on d ue Goal Creatinine. Due on d ue Goal Order Annual PT. Due on 021 due Goal UDT. Due on due Goal Creatinine. Due on d ue Goal Review Allergy List. Due on due Goal TAPE RECORDER REPAIRER Paperwork. Due on due Goal ALT (SGPT). Due on d ue Goal SPORTS MANAGEMENT PROFESSOR Scanned. Due on due Goal OARS. Due on due Goal AST (SGOT). Due on d ue Goal Update Social History. Due on due Goal PHQ-9. Due on due Goal Tobacco Use. Due on due Goal Medication Reconciliation. Due o n due Goal Weight. Due on due Goal Height. Due on due Goal Creatinine. Due on d ue Goal OARS. Due on due Goal Height. Due on due Goal SPORTS MANAGEMENT PROFESSOR Scanned. Due on due Goal Weight. Due on due Goal Review Allergy List. Due on due Goal TAPE RECORDER REPAIRER Paperwork. Due on due Goal Update Social History. Due on due Goal Tobacco Use. Due on due Goal PHQ-9. Due on due Goal Medication Reconciliation. Due o n due Goal AST (SGOT). Due on d ue Goal Order Annual PT. Due on due Goal UDT. Due on due Goal ALT (SGPT). Due on d ue Goal SPORTS MANAGEMENT PROFESSOR Scanned. Due on due Goal Height. Due on due Goal Creatinine. Due on d ue Goal TAPE RECORDER REPAIRER Paperwork. Due on due Goal Update Social History. Due on due Goal UDT. Due on due Goal Order Annual PT. Due on due Goal ALT (SGPT). Due on d ue Goal AST (SGOT). Due on d ue Goal Weight. Due on due Goal OARS. Due on due Goal Medication Reconciliation. Due o n due Goal Review Allergy List. Due on due Goal PHQ-9. Due on due Goal Tobacco Use. Due on due Goal Tobacco Use. Due on due Goal Update Social History. Due on Se due Goal OARS. Due on due Goal Weight. Due on due Goal SPORTS MANAGEMENT PROFESSOR Scanned. Due on due Goal UDT. Due on due Goal ALT (SGPT). Due on d ue Goal TAPE RECORDER REPAIRER Paperwork. Due on due Goal PHQ-9. Due on due Goal Order Annual PT. Due on 021 due Goal Height. Due on due Goal Creatinine. Due on d ue Goal Review Allergy List. Due on due Goal Medication Reconciliation. Due o n due Goal AST (SGOT). Due on d ue Goal PHQ-9. Due on due Goal Tobacco Use. Due on due Goal Creatinine. Due on d ue Goal Height. Due on due Goal TAPE RECORDER REPAIRER Paperwork. Due on due Goal AST (SGOT). Due on d ue Goal Update Social History. Due on due Goal Weight. Due on due Goal OARS. Due on due Goal Review Allergy List. Due on due Goal UDT. Due on due Goal SPORTS MANAGEMENT PROFESSOR Scanned. Due on due Goal ALT (SGPT). Due on d ue Goal Medication Reconciliation. Due o n due Goal Order Annual PT. Due on due Goal Order Annual PT. Due on due Goal OARS. Due on due Goal TAPE RECORDER REPAIRER Paperwork. Due on due Goal Weight. Due on due Goal Review Allergy List. Due on due Goal Update Social History. Due on due Goal AST (SGOT). Due on d ue Goal UDT. Due on due Goal ALT (SGPT). Due on d ue Goal SPORTS MANAGEMENT PROFESSOR Scanned. Due on due Goal PHQ-9. Due on due Goal Tobacco Use. Due on due Goal Medication Reconciliation. Due o n due Goal Height. Due on due Goal Creatinine. 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 low back pain Severity level is 5. Duration: chronic. The problem is stable. I t occurs persistently. The client describes the pain as an ache, burning and sharp. S ymptoms are aggravated by bending, standing an d walking. Symptoms are relieved by ice, lyi ng down, massage, pain meds/drugs, rest, si tting and changing positions. lumbago Patient reports not feeling up to [...] She has had a lot of PT. low back pain Duration: chronic. T he [...] today. No further questions or concern s. Comments: Yola brumfield for a follow up [...] HEP as able. Requesting cervical BOBO through [facility].Accompanied by her today. No fu rther questions [...] Participates in HEP as able. Inquires about Dolphin increase.Accom panied by her today. No further [...] concerns. low back pain Severity level is 4. Duration: chronic. The problem is fluctuati ng. It occurs persistently. The pa griffin describes the pain as an ache and [...] sitting and changing positions. low back pain Duration: chronic. T he [...] Also recently completed a lumbar E SI. manager intermediate results pending, but notes s he has been constipated since then. Particip ates in HEP as able. Graduated home PT louie [id number].Accompanied by her today. N o further questions [...] cently underwent R [facility] which has offered benefit. R w [...] current medicat ion regimen. low back pain Duration: chronic. T he problem is fluctuating. It occu rs persistently. Location of pain is lower pap[place].The patient describes the pain as an ache. Symptoms are aggravated by bending, daily ac tivities and lifting. Symptoms are relieve d by pain meds/drugs and rest. low back pain The problem is stabl [...] from current medication regimen. Continues PT with [facility] regimen. Methocarbamol caused lethargy, but restarted Flexeril. [...] PT at this time. Presents with #15 Dolphin and # 14 Methadone - on track. [...] with her orthopedist. Patient presents with #135.5 Dolphin, and #14 Metha done - both are [...] Presents with #20 Me thadone and #108.5 Dolphin - on track. Reports current medication regimen [...] meds/drug s and rest. low back pain Severity level [...] is here for a f/u. Has #74 Dolphin and #9 Methadone remaini ng - on track. Medications are effe ctive at relieving pain without SE. Krys's pain has been stable since last visit. Magdalena adame has been doing well with no major issues to address. Krys plans on going to [place] in and wanted to make sure she can get her medi cations refilled. Krys continues to exercis e for pain relief. She has no other concern s to address. PT-N/AESI-N/ARF-not triedSCS-not tried Meds: Opioids-Currently ta kes Dolphin and Methadone Neuropathics-Current ly takes gabapentin Muscle Relaxant- Cur rently takes methocarbamol Anti-I nflammatories-N/AMedical Cannabis-not certifi ed low back pain (comments) Patient is here [...] her e for a f/u. Has #52 Dolphin and #7 Methadone remaini ng - on track. Medications are effe ctive at relieving pain without SE. Krys's pain has been stable since last visit. Magdalena adame went to her PCP and found out [...] medications refill. Presents wit #7 methadone, #34 Dolphin - on track. Reports current medication regimen provides 85% pain relief. Denies side effects from current medication regimen. Pain is fluctuating. Back pain is slightly flared this month. Prescrib ed medications continue to be helpful for pa in relief. Has presented to PT for a few sess ions - does not think it helped her pain. Enriquemoises reza, diarrhea has resolved since disco ntinuing simvastatin. Presents with her lilly guzman, who contributes to today's OV. low back [...] . They are planning a trip up [place] in [facility]. No other concerns today. low back pain [...] pain without SE. Pain has been stable. Michael tinues to have back pain but it [...] had a quite hor rible trip to [place]. No other concerns today . low back [...] up and medication refill. She has #100 Dolphin and #5 methadone remaining-surplus. T he patient states the current medication r egimen continues to be effective at reducin g pain without SE. She got an injetion from [facility] and it did not provide any relief f or her. She went to see her spine surgeon wh o discussed surgery with her. She tried gabap entin and reports she was very drowsy on it. S he may be interested in trying Lyrica. No ot her concerns today. low back pain (comments) Patient is here for f/u. Patient has #104 Dolphin and #10 methad one remaining - on track. Patient reports 50% pain relief with meds. Patient is stable on these medications. Pt reports medication r egimen is effective at controlling her material cutter audie low back pain. Continues her daily PT exercises. She does injections at [facility]. I s going to [place] in November. No other concerns to day. [...] She has # 8 methadone and #94.5 Dolphin remaining - on track/surplus. The patient reports [...] in [place]. She will be going to [place] in November. The charlene ent states gabapentin [...] low back pain. She has # 71 Dolphin and #8 methadone remaining - on track [...] low back pain. She has # 88.5 Dolphin and #19 methadone remaining - on track/surplus. [...] pain meds/drugs and sitting. low back pain low back pain (comments) Krys is here today for follow up evaluation and medication refil ls relating to her low back pain. She has # 90 Dolphin and #19 methadone remaining - on track/surplus. [...] low back pain. She has # 63 Dolphin and #12 methadone remaining - on track/surplus. [...] She has # 18 methadone and #45 Dolphin remaining - on track. She continues PT for her shoulder and has noticed some benefit. She had a l umbar BOBO at [facility] which has provided minimal relief to this point. The patient states t he current medication regimen continues to be effective for reducing pain. She C O trouble sleeping even when she uses Trazod one. She continues PT regularly. She will be going on a trip to [place] [facility] this Summer. No other concerns today . [...] medication refill. She presents with #8 7.5 Dolphin and #20 methadone. She notif ied us of medication fill for s/p left shoulde r surgery. Patient reports a hospitaliz ations from dehydration and pneumonia. She c ontinues with biking and walking in the pool for activity; plans to restart pool exercis es. Completes PT for left shoulder. Her husban d is present for today's visit. low back pain (comments) Krys is here today for follow up evaluation and medication refil ls relating to her low back pain. She has # 63 Dolphin and #7 methadone remaining - on track . She will be having shoulder surgery matt Engle next week. She didn't rec eive [...] low back pain. She has # 47 Dolphin and #8 methadone remaining - on track [...] low back pain. She has # 31 Dolphin, #22 methadone and #19 Trazodone re maining - on track. She will be going on vac ation this week to [place]. She has not noticed any relief from her BOBO yet. She just transi tioned to an E-cig. She continues home exerc ise. She has experiended good relief from her shoulder injection at [facility] so she has not f [...] urgeon and may need left shoulder surgery. Sh iris is currently going through PT. She cont inues her home exercises for her back. She an d her are going to [place] in [facility] and she will need to come [...] flare since she had her epidural at [facility] last Thursday. States this has [...] current medication Reviewed medications Medications counted, patient has a surpl us Follow exercise program Reviewed medications Continue current medication Continue current medication Reviewed medications Follow exercise program Reviewed medications Medications counted, patient is on track . Medications counted, patient is on track . Medications counted, patient is on track . Continue current medication Continue current medication Assessments Type Assessment Date assessment Drug induced constipation assessment Rheumatoid arthritis impression Review of 2020 records from Ortho i review her history of rheumatoid arthritis. assessment [...] with walking assessment Other spondylosis, cervical region Sep- impression History of ongoing neck pain. Stable [...] has a history of cervical surgery. assessment manager intermediate (current) use of opiate analge sic impression Current treatment plan increases the pat radha's daily activity level and quality of life. Encouraged glynn moya to participate in alternative therapies, conservative m [...]
--- OUTSIDE RECORDS SUMMARY | 2021-11-27 14:25 | XMS_ITS | Encounter Summary ---
:1950 Author Organization [place] Address [address] [facility] [place] [address] Care Team Providers Name Role Phone LeviIdalmis stahl Primary Care Provider Madhav Matute MD Unavailable Encounter Details Date Type Department Care Team Description 01/10/2021 Orders Only [facility] Neurosurgery Reported, Patient Clinic [address] [place] [address] Social History Tobacco Use Types [...] on filedocumented in this encounter Care Teams Violin Repairer Relationship Specialty Start Date End Date Idalmis Sloan PCP - General Family Practice 11/04/13 Madhav Matute MD Assigned Neuroscience 12/02/[address] BEG[place] Provider [address] [place] [address] documented as of this encounter
--- OUTSIDE RECORDS SUMMARY | 2021-11-27 14:25 | XMS_ITS | Encounter Summary ---
:1950 Author Organization [place] Address [address] [facility] [place] [address] Care Team Providers Name Role Phone LeviIdalmis stahl Primary Care Provider Madhav Matute MD Unavailable Encounter Details Date Type Department Care Team Description 05/14/2021 Medical Correspondence [facility] Scan, PHYSICAL THERAPY Health Info Mgmt Non-Provider ORDER [facility] [address] [place] [address] Social History Tobacco Use Types Packs/Day Years Used Date Never Smoker Smokeless Tobacco: Never Used Sex Assigned at Date Recorded Not on file documented as of this encounter Plan of Treatment Not on filedocumented as of this encounter Visit Diagnoses Not on filedocumented in this encounter Care Teams Instrument Maintenance Supervisor Relationship Specialty Start Date End Date Idalmis Sloan PCP - General Family Practice 11/04/13 Madhav Matute MD Assigned Neuroscience 12/02/20 [address] [address]UM Provider [address] [place] [address] documented as of this encounter
--- OUTSIDE RECORDS SUMMARY | 2021-11-27 14:25 | XMS_ITS | Encounter Summary ---
:1950 Author Organization [place] Address [address] [facility] [place] [address] Care Team Providers Name Role Phone LeviIdalmis stahl Primary Care Provider Madhav Matute MD Unavailable Encounter Details Date Type Department Care Team Description 01/15/2021 Medical Correspondence [facility] Scan, PHYSICAL THERAPY Health Info Mgmt Non-Provider ORDER [facility] [address] [place] [address] Social History Tobacco Use Types Packs/Day Years Used Date Never Smoker Smokeless Tobacco: Never Used Sex Assigned at Date Recorded Not on file documented as of this encounter Plan of Treatment Not on filedocumented as of this encounter Visit Diagnoses Not on filedocumented in this encounter Care Teams It Communications Specialist Relationship Specialty Start Date End Date Idalmis Sloan PCP - General Family Practice 11/04/13 Madhav Matute MD Assigned Neuroscience 12/02/20 [address] [address] Provider [address] [place] [address] documented as of this encounter
--- OUTSIDE RECORDS SUMMARY | 2021-11-27 14:25 | XMS_ITS | Clinical Summary ---
:1950 Author Organization [place] Address [facility] [place] [address] Care Team Providers Name Role Phone Idalmis [...] be differe nt from the original. 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
--- OUTSIDE RECORDS SUMMARY | 2021-11-27 14:26 | XMS_ITS | Encounter Summary ---
:1950 Author Organization [place] Address [facility] [place] [address] Care Team Providers Name Role Phone LeviIdalmis [...] on filedocumented in this encounter Care Teams Bulk System Operator Relationship Specialty Start Date End Date Idalmis Sloan PCP - General Family Practice 11/04/13 Ana Jacobs PA-C Assigned Neuroscience 11/04/20 12/01/20 [facility] Provider [address] [place] [address] documented as of this encounter
--- OUTSIDE RECORDS SUMMARY | 2021-11-27 14:26 | XMS_ITS | Encounter Summary ---
:1950 Author Organization [place] Address [address] [place] [address] Care Team Providers Name Role Phone Idalmis [...] on filedocumented in this encounter Care Teams Print Support Specialist Relationship Specialty Start Date End Date Idalmis Sloan PCP - General Family Practice 11/04/13 documented as of this encounter
--- OUTSIDE RECORDS SUMMARY | 2021-11-27 14:26 | XMS_ITS | Encounter Summary ---
:1950 Author Organization [place] Address [address] [place] [address] Care Team Providers Name Role Phone Idalmis [...] on filedocumented in this encounter Care Teams Mineral Economist Relationship Specialty Start Date End Date Idalmis Sloan PCP - General Family Practice 11/04/13 documented as of this encounter
--- OUTSIDE RECORDS SUMMARY | 2021-11-27 14:26 | XMS_ITS | Encounter Summary ---
:1950 Author Organization [place] Address [address] [place] [address]. [place] [address] Care Team Providers Name Role Phone Idalmis Sloan Primary Care Provider Reason for Visit [facility] Physical Therapy (Routine) - Closed Specialty Diagnoses / Procedures Referred By Contact Refer red To Contact Physical Therapy Diagnoses >4, Back / [facility] Pedro [facility] Pain / BCBS Mercy Vasquez, PULMONARY FELLOW Daniel Shi, PT Procedures SPINE INITIAL [facility] PAIN [facility] [address] [place] [address] [place] [address] [place] [address] Referral ID Status Reason Start Date Expiration Date Visits Requ ested Visits Authorized [id number] Closed 07/22/2017 03/01/2018 20 18 Encounter Details Date Type Department Care Team Description 02/25/2018 Therapy Visit [facility] Jensen Hernandez, PT Hip pain, left Rehabilitation Services [address] MARY[address]ELSON (Primary Dx) [id number] [place] [address] [address] [address] [address] [place] [address] (Work) [phone] Social History Tobacco Use Types Packs/Day Years Used Date Never Smoker Smokeless Tobacco: Never Used Sex Assigned at Date Recorded Not on file documented as of this encounter Progress Notes Jensen Hernandez, PT - 02/25/2018 4:00 PM CST [facility] Initial Evaluation Subjective: History of left hip pain for years with increased symptoms 1 month ago secondary to OA. Pt referred by MD for physical therapy on 02-05-18 The history is provided by the patient. No russian language professor was used. Krys Mosher is a [...] Right: Min loss+ Rotation: Left: Right: Side [place]: Left: Right: Strength: weak lower abdominals and [...] Sheet for this information) Short term and jail goals: (See Goal Flow Sheet for this [...] and time spent performing 1:1 timed codes. R ARBITRATOR documented in this encounter Plan of Treatment Not on filedocumented as of this encounter Procedures Procedure Name Priority Date/Time Associated Diagnosis Comme [facility] ZZC THERAPEUTIC Routine 02/25/2018 5:05 PM LABOR ARBITRATOR Hip pain, left EXERCISES documented in this encounter Visit Diagnoses Diagnosis Hip pain, left - Primary Pain in joint, pelvic region and thigh documented in this encounter Care Teams Internal Medicine Nurse Relationship Specialty Start Date End Date Idalmis Sloan PCP - General Family Practice 11/04/13 documented as of this encounter
--- OUTSIDE RECORDS SUMMARY | 2021-11-27 14:26 | XMS_ITS | Encounter Summary ---
:1950 Author Organization [place] Address [facility] [place] [address] Care Team Providers Name Role Phone Idalmis [...] on filedocumented in this encounter Care Teams Hydrochloric Area Supervisor Relationship Specialty Start Date End Date Idalmis Sloan PCP - General Family Practice 11/04/13 Ana Jacobs PA-C Assigned Neuroscience 11/04/20 12/01/20 [facility] Provider [address] [address] documented as of this encounter
--- OUTSIDE RECORDS SUMMARY | 2021-11-27 14:26 | XMS_ITS | Encounter Summary ---
:1950 Author Organization [place] Address [facility] [place] [address] Care Team Providers Name Role Phone Idalmis Sloan Primary Care Provider Reason for Visit Diagnostic Imaging XR (Routine) - Closed Specialty Diagnoses / Procedures Referred By Contact Refer red To Contact Diagnoses Acute bilateral low back pain with left-sided sciatica Ana Jacobs PA-C Procedures XR Spine Complete Scoliosis 2 Views [facility] [address] [facility] [place] [address] Referral ID Status Reason Start Date Expiration Date Visits Requ ested Visits Authorized [id number] Closed 10/29/2020 10/29/2021 1 1 Encounter Details Date Type Department Care Team Description 10/29/2020 Ancillary Procedure [facility] nAa Jacobs Acu te bilateral low Sports and VIELKA Alcaraz back pain with Orthopedic Care [facility] left-side d sciatica [facility] [address] [facility] [address] [place] [address] [place] [id number] Social History Tobacco Use Types Packs/Day Years [...] sciatica documented in this encounter Care Teams Slitter Scorer Relationship Specialty Start Date End Date Idalmis Sloan PCP - General Family Practice 11/04/13 documented as of this encounter
--- OUTSIDE RECORDS SUMMARY | 2021-11-27 14:26 | XMS_ITS | Encounter Summary ---
:1950 Author Organization [place] Address [address] [place] [address] Care Team Providers Name Role Phone Idalmis [...] on filedocumented in this encounter Care Teams Manual Winder Relationship Specialty Start Date End Date Idalmis Sloan PCP - General Family Practice 11/04/13 documented as of this encounter
--- OUTSIDE RECORDS SUMMARY | 2021-11-27 14:26 | XMS_ITS | Encounter Summary ---
:1950 Author Organization [place] Address [address] [place] [address] Care Team Providers Name Role Phone Idalmis [...] on filedocumented in this encounter Care Teams Enrollment Management Director Relationship Specialty Start Date End Date Idalmis Sloan PCP - General Family Practice 11/04/13 documented as of this encounter
--- OUTSIDE RECORDS SUMMARY | 2021-11-27 14:26 | XMS_ITS | Encounter Summary ---
:1950 Author Organization [place] Address [facility] [place] [address] Care Team Providers Name Role Phone Idalmis Sloan Primary Care Provider Encounter Details Date Type Department Care Team Description 02/16/2019 Therapy Visit [facility] Jensen Hernandez, PT Lumbar pain Rehabilitation Services [address] [place] [facility] [place] [address] [place] [address] Social History Tobacco Use Types Packs/Day Years Used Date Never Smoker Smokeless Tobacco: Never Used Sex Assigned at Date Recorded Not on file documented as of this encounter Progress Notes Jensen Hernandez, PT - 02/16/2019 3:20 PM CST [facility] Initial Evaluation Subjective: History of lumbar pain for years which has included 3 previous surgeries to her lower back. Pt can'trecall the dates of her surgeries. Pt noted pain of unknown etiology approximately 6 -8 weeks ago. Pt referred by MD for physical therapy on 12-29-18 The history is provided by the patient. No speech language therapist was used. Type of problem: Lumbar Condition [...] Left: Moderate loss Right: Moderate loss Side [place]: Left: Right: Strength: weak lower abdominals and [...] Sheet for this information) Short term and retirement goals: (See Goal Flow Sheet for this [...] and time spent performing 1:1 timed codes. AD DRAWER documented in this encounter Plan of Treatment Not on filedocumented as of this encounter Procedures Procedure Name Priority Date/Time Associated Diagnosis Comme [facility] Z THERAPEUTIC Routine 02/16/2019 6:42 PM THREAD DRAWER Lumbar pain EXERCISES documented in this encounter Visit Diagnoses Diagnosis Lumbar pain Lumbago documented in this encounter Care Teams Electronic Publications Specialist Relationship Specialty Start Date End Date Idalmis Sloan PCP - General Family Practice 11/04/13 documented as of this encounter
--- OUTSIDE RECORDS SUMMARY | 2021-11-27 14:26 | XMS_ITS | Encounter Summary ---
:1950 Author Organization [place] Address [address] [place] [address] Care Team Providers Name Role Phone Idalmis [...] on filedocumented in this encounter Care Teams Farmworkers Relationship Specialty Start Date End Date Idalmis Sloan PCP - General Family Practice 11/04/13 documented as of this encounter
--- OUTSIDE RECORDS SUMMARY | 2021-11-27 14:26 | XMS_ITS | Encounter Summary ---
:1950 Author Organization [place] Address [facility] [place] [address] Care Team Providers Name Role Phone Idalmis Sloan Primary Care Provider Encounter Details Date Type Department Care Team Description 03/23/2019 Therapy Visit [facility] Belén Alva, Lumbar pain (Primary Rehabilitation Services BLOOD BANK BUSINESS MANAGER Dx) [facility] [address] [facility] [address] [place], [place] [address] Social History Tobacco Use Types Packs/Day Years Used Date Never Smoker Smokeless Tobacco: Never Used Sex Assigned at Date Recorded Not on file documented as of this encounter Plan of Treatment Not on filedocumented as of this encounter Procedures Procedure Name Priority Date/Time Associated Diagnosis Comme nts [facility] THERAPEUTIC Routine 03/23/2019 3:35 PM CARD DOFFER Lumbar pain ACTIVITIES [facility] THERAPEUTIC Routine 03/23/2019 3:35 PM CARD DOFFER Lumbar pain EXERCISES documented in this encounter Visit Diagnoses Diagnosis Lumbar pain - Primary Lumbago documented in this encounter Care Teams Program Review Director Relationship Specialty Start Date End Date Idalmis Sloan PCP - General Family Practice 11/04/13 documented as of this encounter
--- OUTSIDE RECORDS SUMMARY | 2021-11-27 14:26 | XMS_ITS | Encounter Summary ---
:1950 Author Organization [place] Address [facility] [place] [place] [address] Care Team Providers Name Role Phone Idalmis Sloan Primary Care Provider Encounter Details Date Type Department Care Team Description 04/06/2019 [facility] Lumbar pain (Primary Rehabilitation Services [address] Dx) [address] [address] [address] [place] [address] (Work) [phone] Social History Tobacco Use Types Packs/Day Years Used Date Never Smoker Smokeless Tobacco: Never Used Sex Assigned at Date Recorded Not on file documented as of this encounter Plan of Treatment Not on filedocumented as of this encounter Procedures Procedure Name Priority Date/Time Associated Diagnosis Comme [facility] ZZ THERAPEUTIC Routine 04/06/2019 3:49 PM CORE PASTER Lumbar pain EXERCISES documented in this encounter Visit Diagnoses Diagnosis Lumbar pain - Primary Lumbago documented in this encounter Care Teams Cryptographic Technician Relationship Specialty Start Date End Date Idalmis Sloan PCP - General Family Practice 11/04/13 documented as of this encounter
--- OUTSIDE RECORDS SUMMARY | 2021-11-27 14:26 | XMS_ITS | Encounter Summary ---
:1950 Author Organization [place] Address [facility] [place] [address] Care Team Providers Name Role Phone Idalmis Sloan Primary Care Provider Encounter Details Date Type Department Care Team Description 02/21/2019 [facility] ([facility] Services [address] Dx) [address] [place] [address] [address] [address] [place] [address] (Work) [phone] Social History Tobacco Use Types Packs/Day Years Used Date Never Smoker Smokeless Tobacco: Never Used Sex Assigned at Date Recorded Not on file documented as of this encounter Plan of Treatment Not on filedocumented as of this encounter Procedures Procedure Name Priority Date/Time Associated Diagnosis Comme nts [facility] THERAPEUTIC Routine 02/21/2019 6:20 PM LOCATION WORKER Lumbar pain ACTIVITIES [facility] THERAPEUTIC Routine 02/21/2019 6:20 PM LOCATION WORKER Lumbar pain EXERCISES documented in this encounter Visit Diagnoses Diagnosis Lumbar pain - Primary Lumbago documented in this encounter Care Teams Linen Room Custodian Relationship Specialty Start Date End Date Idalmis Sloan PCP - General Family Practice 11/04/13 documented as of this encounter
--- OUTSIDE RECORDS SUMMARY | 2021-11-27 14:26 | XMS_ITS | Encounter Summary ---
:1950 Author Organization [place] Address [facility] [place] [address] Care Team Providers Name Role Phone Idalmis Sloan Primary Care Provider Reason for Referral Diagnostic Imaging XR (Routine) - Closed Specialty Diagnoses / Procedures Referred By Contact Refer red To Contact Diagnoses Acute bilateral low back pain with left-sided sciatica Ana Jacobs PA-C Procedures XR Lumbar Bending Only 2/3 Views [facility] [place] [address] Referral ID Status Reason Start Date Expiration Date Visits Requ ested Visits Authorized [id number] Closed 10/29/2020 10/29/2021 1 1 Diagnostic Imaging XR (Routine) - Closed Specialty Diagnoses / Procedures Referred By Contact Refer red To Contact Diagnoses Acute bilateral low back pain with left-sided sciatica Ana Jacobs PA-C Procedures XR Spine Complete Scoliosis 2 Views [facility] [place] [address] Referral ID Status Reason Start Date Expiration Date Visits Requ ested Visits Authorized [id number] Closed 10/29/2020 10/29/2021 [address] Scan (Routine) - Closed Specialty Diagnoses / Procedures Referred By Contact Refer red To Contact Diagnoses Acute bilateral low back pain with left-sided sciatica Ana Jacobs PA-C Procedures CT Lumbar Spine w/o Contrast [facility] [place] [address] Referral ID Status Reason Start Date Expiration Date Visits Requ ested Visits Authorized [id number] Closed 10/29/2020 10/29/2021 1 1 Reason for Visit Reason Comments Consult Low back pain; L hip pain Neurologic Problem Encounter Details Date Type Department Care Team Description 10/29/[address] [facility] [place] [address] [place] [address] Acute bilateral low back pain with left- sided sciatica (Primary Dx); [facility] Neurosurgery Ana Jacobs PA-C [facility] [address] [address] [id number] Lumbar radiculopathy [facility] [place] [address] [place] [address] [address] [place] [phone] Social History Tobacco Use Types Packs/Day Years [...] will need to call to schedule. Call [place] radiology scheduling for your procedure: For scheduling in the [place] ([facility], [facility]) call [phone] or [phone] For scheduling at [facility] ([facility], [facility], [facility]), call [phone] or [phone] For scheduling in the [place] ([facility]) call [phone] or [phone] -Recommend scoliosis films in addition to standing XR neutral/flexion/extension -Recommend following up once all imaging has been obtained to review and go over next Ana Jacobs PA-C [facility] Neurosurgery [address] [place] [address] documented in this encounter Progress Notes Ana [...] None of these modalities have provided anysignificant fdc relief. Krys's Sachin had prior back surgery [...] prior L2-L5 fusion with Dr. Souleymane Bonilla [facility] approximately 5-6 years ago. The patient's [...] agreed to call our office back at [phone] to further discuss possible surgical interventions or [...] seek being evaluated. Respectfully, Ana Jacobs PA-C [facility] Neurosurgery [address] [address] Exam, imaging, and plan reviewed by Dr. [...] MR 06/22/2020. TORRES RIVAS MD SYSTEM ID: ??[id number] Narrative 11/09/2020 9:[address] LUMBAR [...] MR 06/22/2020. TORRES RIVAS MD SYSTEM ID: [id number] Ana Jacobs PA-C IMG CT ORDERABLES XR [...] extension. JULIO CÉSAR HUITRON MD SYSTEM ID: ??[id number] Narrative 10/29/2020 4:29 PM CDT XR LUMBAR [...] extension. JULIO CÉSAR HUITRON MD SYSTEM ID: [id number] Ana Jacobs PA-C IMG DIAGNOSTIC IMAGING ORDER TRELL [...] sciatica documented in this encounter Care Teams Data Analysis Manager Relationship Specialty Start Date End Date Idalmis Sloan PCP - General Family Practice 11/04/13 documented as of this encounter
--- OUTSIDE RECORDS SUMMARY | 2021-11-27 14:26 | XMS_ITS | Encounter Summary ---
:1950 Author Organization [place] Address [facility] [place] [address] Care Team Providers Name Role Phone Idalmis [...] Observation Dept [address] [place], [place] [address] Phone: Referral ID Status Reason Start Date Expiration Date Visits Requ ested Visits Authorized [id number] 1 1 Encounter Details Date Type Department Care Team Description 12/16/2020 - [facility] Caleb Dawn PA-C [facility] [address] [place], [place] [address] Constipation with Fecal impaction; 12/18/2020 [facility] Observation Amando Ross MD [facility] [address] [place] [address] Stercoral colitis; Dept Lisandro Crawford MD [address] [place], [place] [id number] Coronary artery calcification; [address] [place] [address] Social History Tobacco Use Types [...] Brar PA-C - 12/18/2020 10:[address] [facility] Hospitalist Discharge Summary Date of Admission: 12/16/2020 [...] minutes discharging this patient. Uma Brar PA-C [facility] OBSERVATION DEPT [address] [facility] [address] Physical Exam Vital Signs: Temp: 97.6 ??F [...] EXAM: CT ABDOMEN PELVIS W CONTRAST LOCATION: [facility] DATE/TIME: 12/16/2020 11:23 PM INDICATION: Diverticulitis suspected, [...] order SW consult): Home w/ Facility name: personal computer network engineer: - Cheikh Activity level at baseline: Ind [...] Crawford MD - 12/17/2020 2:[address] [facility] History and Physical - Hospitalist Service Date [...] Code Status: Full Code Lisandro Crawford MD [facility] Securely message with the [employer] (learn more here) Text page via [facility] Paging/Directory Chief Complaint Diarrhea History is obtained [...] EXAM: CT ABDOMEN PELVIS W CONTRAST LOCATION: [facility] DATE/TIME: 12/16/2020 11:23 PM INDICATION: Diverticulitis suspected, [...] opioid use. Rectal disimpaction unsuccessful. Success with [place] lady enema and Relistor. Now with large [...] Mejia RN - 12/17/2020 1:14 AM CDT [facility] ED Nurse Handoff Report Krys Mosher is [...] 1. Lift room needed: No. Bariatric: No Academic Affairs Assistant Needed: No Isolation: No. Infection: Not Applicable. [...] Status --------- ------ CBC with platelets and d...[[id number]] Abnormal Final result Please view results for [...] December 17, 2020 at 2:01 AM Cristina Fraag RN - 12/17/2020 12:40 AM CDT Pt [...] Quinolones Sulfa Drugs Lorazepam Medications: Nexium Lasix [place] Methadone Zocor Trazodone Florastor Past Medical History: [...] Status --------- ------ CBC with platelets and d...[[id number]] Abnormal Final result Please view results for [...] Return to near baseline physical activity: Yes Avp Nurse Safe discharge environment identified: Yes Barriers to discharge: No Entered by: Catalina Cash 12/18/2020 0842 Please review provider order [...] for discharge by consultants (if involved): N/A Avp Nurse Safe discharge environment identified: Yes, home w/ Barriers to discharge: Yes Entered by: Elfego Randall 12/18/2020 5:51 AM Vitals are Temp: 97.9 ??F (36.6 ??C) Temp src: Oral BP: (!) 158/98 Pulse: 79 Resp: 20 SpO2: 95 %. Patient is alert and oriented. Up SBA w/walker. On a regular diet. 8/10 chronic back and left hip pain. On scheduled methadone and prn [place]. PIV SL. Continuing supportive cares. Likely home [...] for discharge by consultants (if involved): N/A Avp Nurse Safe discharge environment identified: Yes, home [...] ice pack. On scheduled methadone with prn [place] for chronic pain. PIV SL. Ambulated hallways [...] for discharge by consultants (if involved): N/A Avp Nurse Safe discharge environment identified: Yes, home w/ Barriers to discharge: Yes Entered by: Elfego Randall 12/17/2020 11:27 PM Vitals are Temp: 98.4 ??F (36.9 ??C) Temp src: Oral BP: 110/76 Pulse: 84 Resp: 16 SpO2: 96 %. Patient is Alert and Oriented x4. Up SBA w/walker. On a regular diet. Reports 9/10 rectal discomfort. Ice applied. On scheduled methadone. Prn [place] also given. PIV SL. Up to bathroom [...] 7. Provider specific discharge goals met: yes Avp Nurse Safe discharge environment identified: Yes Barriers [...] 7. Provider specific discharge goals met: Yes Avp Nurse Safe discharge environment identified: Yes Barriers to discharge: Yes, does not feel able to get up and use the toilette so many times Entered by: Reggie Langford 12/17/2020 12:58 PM Please review provider order for any additional goals. Nurse to notify provider when observation goals have been met and patient is ready for discharge. Pharmacy-Admission Medication History - Lazara Fontenot [facility] - 12/17/2020 10:24 AM CDT Admission medication history interview status for this patient is complete. See [facility] admission navigator for allergy information, prior to admission medications and immunization status. Medication history interview done, indicate source(s): Patient Medication history resources (including written lists, pill bottles, clinic record): Sure Scripts fill record [facility] Changes made to LINUX SYSTEM ADMIN medication list: Added: latanoprost, Patanol eye drops, [...] on Movantik. Patient has Medicare D through [facility]. Movantik: Not covered. Relistor: Not covered. Amitiza: $47/mo. Dea Torres, Bandmill Operator/Liaison, Discharge Pharmacy [phone] Plan of Care - Reggie Langford RN - 12/17/2020 9:02 AM CDT PRIMARY DIAGNOSIS: dehydration/weakness OUTPATIENT/OBSERVATION GOALS TO BE MET BEFORE DISCHARGE: 1. Stable vital signs Yes 2. Tolerating diet:Yes 3. Pain controlled with oral pain medications: Yes 4. Positive bowel sounds: Yes 5. Voiding without difficulty: Yes 6. Able to ambulate: Yes 7. Provider specific discharge goals met: Yes Avp Nurse Safe discharge environment identified: Yes Barriers [...] Return to near baseline physical activity: No Avp Nurse Safe discharge environment identified: Yes Barriers [...] diet. C/o 8/10 left shoulder pain, PRN [place] administered. NS running at 100mL/hr. C/o SOB [...] Code Phon e Number [place] [address] Care Lab [address] Lab (1st floor, no room number) [...] City/State/ZIP Code [place] [address] Care Lab [address] Lab (1st floor, no room number) [...] Address City/State/ZIP Code [place] [phone] Care Lab [address] Lab (1st floor, no room number) [...] exposure or clinical presentation sugges ts COVID-19. ??[facility] are certified under the Clinical Laborat ory Improvement Amendments of 1988 (CLIA-88) as qualified to perform moderate and/or high complexity laboratory testing. Caleb Dawn PA-C LAB - MICRO GENERAL ORDERAB LES Performing Organization Address City/State/[place] [address] Care Lab [address] [facility] Lab (1st floor, no room number) Abd/pelvis [...] EXAM: CT ABDOMEN PELVIS W CONTRAST LOCATION: [facility] DATE/TIME: 12/16/2020 11:23 PM INDICATION: Diverticulitis [...] EXAM: CT ABDOMEN PELVIS W CONTRAST LOCATION: [facility] DATE/TIME: 12/16/2020 11:23 PM INDICATION: Diverticulitis [...] platelets and differential (12/16/2020 9:38 PM CDT) [facility] Method Time Signature WBC Count 11.1 (H) [...] LAB - BLOOD ORDERABLES Performing Organization Address City/[facility]/[place] [address] Care Lab [address] Lab (1st floor, no room number) [...] Organization Address City/State/[place] [address] Care Lab [address] Lab (1st floor, no room number) (ABNORMAL) Comprehensive metabolic panel (12/16/2020 9:38 PM CDT) [facility] Method Time Signature Sodium 134 133 - [...] City/State/ZIP Code Ph[place] [phone] Care Lab [address] Lab (1st floor, no room number) [...] mL (COMPLETED) 232 5 (Given - Provider: Alexandru Oneal - Comment: Bulk) 500 mL, Intravenous, ONCE, On [place] 12/16/20 at 2325, For 1 dose latanoprost [...] mg (CANCELED) 1008 (Given - Provider: Reggie Langford RN) 20 mg, Oral, DAILY, First dose [...] Mor T Tonia)111 ( Given - Provider: Ctaalina Cash RN) 1 tablet, Oral, 3 TIMES [...] 2125 (Given - P rovider: Mor T Tonia) 50 mg, Oral, AT BEDTIME PRN, sleep, [...] documented as of this encounter Care Teams Poultry Offal Worker Relationship Specialty Start Date End Date Idalmis Sloan PCP - General Family Practice 11/04/13 Madhav Matute MD Assigned Neuroscience 12/02/[address] BEGUM Provider [address] [place], [place] [address] documented as of this encounter
--- OUTSIDE RECORDS SUMMARY | 2021-11-27 14:26 | XMS_ITS | Encounter Summary ---
:1950 Author Organization [place] Address [address] [place] [address]. [place] [address] Care Team Providers Name Role Phone Idalmis Sloan Primary Care Provider Reason for Visit KIMBER Physical Therapy (Routine) - Closed Specialty Diagnoses / Procedures Referred By Contact Refer red To Contact Physical Therapy Diagnoses >4, Back / Mercy Pedro @ [facility] Pain / BCBS Mercy Vasquez, CURRICULUM DIRECTOR Daniel Shi, PT Procedures SPINE INITIAL [facility] PAIN [facility] [address] [place] [address] [place] [address] [place] [address] Referral ID Status Reason Start Date Expiration Date Visits Requ ested Visits Authorized [id number] Closed 07/22/2017 03/01/2018 20 18 Encounter Details Date Type Department Care Team Description 08/14/2017 Therapy Visit [facility] Jensen Hernandez, PT Lumbago (Primary Dx) Rehabilitation Services [id number] [place] [address] DR [facility] [address] [address] [address] [place] [address] (Work) [phone] Social History Tobacco Use Types Packs/Day Years [...] is being advanced to more complex exercises. MOBILITY ARCHITECT/ATC plan: N/A Please refer to the daily [...] Name Priority Date/Time Associated Diagnosis Comme nts [facility] NEUROMUSCULAR Routine 08/14/2017 6:01 PM Lumbago RE-EDUCATION CDT [facility] THERAPEUTIC EXERCISES Routine 08/14/2017 6:01 PM Lumbago CDT documented in this encounter Visit Diagnoses Diagnosis Lumbago - Primary documented in this encounter Care Teams Clay Mixer Relationship Specialty Start Date End Date Idalmis Sloan PCP - General Family Practice 11/04/13 documented as of this encounter
--- OUTSIDE RECORDS SUMMARY | 2021-11-27 14:26 | XMS_ITS | Encounter Summary ---
:1950 Author Organization [place] Address [address] [facility] 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 Functionally has improved. E REPAIRER RAILROAD Adiel Ramirez - 04/14/2019 2:30 PM CST [...] and time spent performing 1:1 timed codes. E REPAIRER RAILROAD documented in this encounter Miscellaneous Notes Addendum Note - Adiel Ramirez - 04/14/2019 2:30 PM BRAKE REPAIRER RAILROAD Addended by: ADIEL RAMIREZ on: 04/15/2019 11:09 AM Modules accepted: Orders E REPAIRER RAILROAD documented in this encounter Plan of Treatment Not on filedocumented as of this encounter Procedures Procedure Name Priority Date/Time Associated Diagnosis Comme [facility] THERAPEUTIC Routine 04/15/2019 10:52 AM Lumbar pain ACTIVITIES BRAKE REPAIRER RAILROAD documented in this encounter Visit Diagnoses Diagnosis Lumbar pain - Primary Lumbago documented in this encounter Care Teams Continuous Improvement Lead Relationship Specialty Start Date End Date Idalmis Sloan PCP - General Family Practice 11/04/13 documented as of this encounter
--- OUTSIDE RECORDS SUMMARY | 2021-11-27 14:26 | XMS_ITS | Encounter Summary ---
:1950 Author Organization [place] Address [address] [place] [address] Care Team Providers Name Role Phone Idalmis [...] on filedocumented in this encounter Care Teams Milk Inspector Relationship Specialty Start Date End Date Idalmis Sloan PCP - General Family Practice 11/04/13 documented as of this encounter
--- OUTSIDE RECORDS SUMMARY | 2021-11-27 14:26 | XMS_ITS | Encounter Summary ---
:1950 Author Organization [place] Address [facility] [place] [address] Care Team Providers Name Role Phone Idalmis Sloan Primary Care Provider Ana Jacobs PA-C Unavailable Reason for Referral Diagnostic Imaging XR (Routine) - Closed Specialty Diagnoses / Procedures Referred By Contact Refer red To Contact Diagnoses Acute bilateral low back pain with left-sided sciatica Lumbar radiculopathy Madhav Matute MD Procedures XR Lumbar Epidural Injection Incl Imaging [address] [facility] [address] [place] [address] Referral ID Status Reason Start Date Expiration Date Visits Requ ested Visits Authorized [id number] Closed 11/19/2020 11/19/2021 1 1 Reason for Visit Reason Comments RECHECK Lumbar Encounter Details Date Type Department Care Team Description 11/19/2020 Office Visit [facility] Madhav Melton Acute darrell ateral low back pain with left-sided sciatica (Primary Dx); [facility] Neurosurgery MD [place] Lumbar radiculopathy Clinic [place] [address] [facility] [place] [place] [address] [facility] [address] [place] [address] [phone] Social History Tobacco Use Types Packs/Day Years [...] after this timeframe. o You can call [facility] [place] [facility] ([facility] for [facility]) to schedule your injection at [phone] ??? We will work on obtaining your DEXA scan results for Dr. Matute to review. ??? Dr. Matute would like to see you back in the clinic for follow up one month after your injection. Please call the number below to schedule. Please call us if you have any further questions or concerns. [facility] Neurosurgery Clinic documented in this encounter [...] SARAH/Minnie November 19, 2020 to fax number [phone] Right Fax confirmed at 1615 PM documented [...] unspecified documented in this encounter Care Teams Ep Specialist Relationship Specialty Start Date End Date Idalmis Sloan PCP - General Family Practice 11/04/13 Ana Jacobs PA-C Assigned Neuroscience 11/04/20 12/01/20 [facility] Provider [address] [address] documented as of this encounter
--- OUTSIDE RECORDS SUMMARY | 2021-11-27 14:26 | XMS_ITS | Encounter Summary ---
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) [facility] [address] [facility] [address] [place], [place] [address] Social History Tobacco Use Types Packs/Day Years Used Date Never Smoker Smokeless Tobacco: Never Used Sex Assigned at Date Recorded Not on file documented as of this encounter Plan of Treatment Not on filedocumented as of this encounter Procedures Procedure Name Priority Date/Time Associated Diagnosis Comme nts [facility] THERAPEUTIC Routine 03/09/2019 3:43 PM 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
--- OUTSIDE RECORDS SUMMARY | 2021-11-27 14:26 | XMS_ITS | Encounter Summary ---
:1950 Author Organization [place] Address [address] [place] [address]. [place] [address] Care Team Providers Name Role Phone Idalmis Sloan Primary Care Provider Reason for Visit KIMBER Physical Therapy (Routine) - Closed Specialty Diagnoses / Procedures Referred By Contact Refer red To Contact Physical Therapy Diagnoses >4, Back / Mercy Pedro @ [facility] Pain / BCBS Mercy Vasquez, DIGITAL FORENSIC EXAMINER Daniel Shi, PT Procedures SPINE INITIAL [facility] PAIN [facility] [address] [place] [address] [place] [address] [place] [address] Referral ID Status Reason Start Date Expiration Date Visits Requ ested Visits Authorized [id number] Closed 07/22/2017 03/01/2018 20 18 Encounter Details Date Type Department Care Team Description 02/16/2018 [facility] C[facility] Rehabilitation Services [address] [facility] [id number] [place] [address] [address] [address] [place] [address] (Work) [phone] Social History Tobacco Use Types Packs/Day Years Used Date Never Smoker Smokeless Tobacco: Never Used Sex Assigned at Date Recorded Not on file documented as of this encounter Plan of Treatment Not on filedocumented as of this encounter Visit Diagnoses Not on filedocumented in this encounter Care Teams Associate Software Developer Relationship Specialty Start Date End Date Idalmis Sloan PCP - General Family Practice 11/04/13 documented as of this encounter
--- OUTSIDE RECORDS SUMMARY | 2021-11-27 14:26 | XMS_ITS | Encounter Summary ---
:1950 Author Organization [place] Address [address] [facility] [place] [place] [address] Care Team Providers Name Role Phone Idalmis Sloan Primary Care Provider Reason for Visit KIMBER Physical Therapy (Routine) - Closed Specialty Diagnoses / Procedures Referred By Contact Refer red To Contact Glassworker Diagnoses >4 [place] side hip pain, LBP / Idalmis Sloan MD@ [place] / bs /referral exists 20V thru 03.01.18(MSG) Idalmis Sloan Linda, PTA / Physical Therapy Procedures SPINE FOLLOW UP [facility] [address] [place] [address] Referral ID Status Reason Start Date Expiration Date Visits Requ ested Visits Authorized [id number] Closed 03/16/2018 03/01/2019 20 18 Encounter Details Date Type Department Care Team Description 03/16/2018 Therapy Visit [facility] Belén Alva, Hip josefina n, left Rehabilitation Services [facility] [address] [facility] [address] [place] [address] Social History Tobacco Use Types Packs/Day Years Used Date Never Smoker Smokeless Tobacco: Never Used Sex Assigned at Date Recorded Not on file documented as of this encounter Plan of Treatment Not on filedocumented as of this encounter Procedures Procedure Name Priority Date/Time Associated Diagnosis Comme [facility] ZC THERAPEUTIC Routine 03/17/2018 7:48 AM 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
--- OUTSIDE RECORDS SUMMARY | 2021-11-27 14:26 | XMS_ITS | Encounter Summary ---
:1950 Author Organization [place] Address [address] [facility] [place] [address] Care Team Providers Name Role Phone Idalmis Sloan Primary Care Provider Ana Jacobs PA-C Unavailable Reason for Referral Diagnostic Imaging CT Scan (Routine) - Closed Specialty Diagnoses / Procedures Referred By Contact Refer red To Contact Diagnoses Acute bilateral low back pain with left-sided sciatica Ana Jacobs PA-C Procedures CT Lumbar Spine w/o Contrast [facility] [place] [address] Referral ID Status Reason Start Date Expiration Date Visits Requ ested Visits Authorized [id number] Closed 10/29/2020 10/29/2021 1 1 Reason for Visit Diagnostic Imaging CT Scan (Routine) - Closed Specialty Diagnoses / Procedures Referred By Contact Refer red To Contact Diagnoses Acute bilateral low back pain with left-sided sciatica Ana Jacobs PA-C Procedures CT Lumbar Spine w/o Contrast [facility] [address] [place] [address] [place] [address] Referral ID Status Reason Start Date Expiration Date Visits Requ ested Visits Authorized [id number] Closed 10/29/2020 10/29/2021 1 1 Encounter Details Date Type Department Care Team Description 11/08/2020 [facility] VIELKA Alcaraz back pain with [address] [facility] left-sided sciatica [facility] [address] [address] [phone] [address] [place] [address] Social History Tobacco Use Types Packs/Day Years [...] MR 06/22/2020. TORRES RIVAS MD SYSTEM ID: ??[id number] Narrative 11/09/2020 9:[address] LUMBAR [...] MR 06/22/2020. TORRES RIVAS MD SYSTEM ID: [id number] Ana Jacobs PA-C IMG CT ORDERABLES documented in this encounter Visit Diagnoses Diagnosis Acute bilateral low back pain with left- sided sciatica documented in this encounter Care Teams Tube Test Technician Relationship Specialty Start Date End Date Idalmis Sloan PCP - General Family Practice 11/04/13 Ana Jacobs PA-C Assigned Neuroscience 11/04/20 12/01/20 [facility] Provider [address] [address] documented as of this encounter
--- OUTSIDE RECORDS SUMMARY | 2021-11-27 14:26 | XMS_ITS | Encounter Summary ---
:1950 Author Organization [place] Address [facility] [place] [address] Care Team Providers Name Role Phone Idalmis Sloan Primary Care Provider Reason for Visit Diagnostic Imaging XR (Routine) - Closed Specialty Diagnoses / Procedures Referred By Contact Refer red To Contact Diagnoses Acute bilateral low back pain with left-sided sciatica Ana Jacobs PA-C Procedures XR Lumbar Bending Only 2/3 Views [facility] [address] [facility] [address] [address] Referral ID Status Reason Start Date Expiration Date Visits Requ ested Visits Authorized [id number] Closed 10/29/2020 10/29/2021 1 1 Encounter Details Date Type Department Care Team Description 10/29/2020 Ancillary Procedure [facility] Ana Jacobs Acu te bilateral low Sports and VIELKA Alcaraz back pain with Orthopedic Care [facility] left-side d sciatica [facility] [address] [facility] [address] [facility] [address] [place] [address] [address] [address] Social History Tobacco Use Types Packs/Day Years [...] extension. JULIO CÉSAR HUITRON MD SYSTEM ID: ??[id number] Narrative 10/29/2020 4:29 PM CDT XR LUMBAR [...] extension. JULIO CÉSAR HUITRON MD SYSTEM ID: [id number] Ana Jacobs PA-C [place] DIAGNOSTIC IMAGING ORDER TRELL documented in this encounter Visit Diagnoses Diagnosis Acute bilateral low back pain with left- sided sciatica documented in this encounter Care Teams Carton Filler Relationship Specialty Start Date End Date Idalmis Sloan PCP - General Family Practice 11/04/13 documented as of this encounter
--- OUTSIDE RECORDS SUMMARY | 2021-11-27 14:26 | XMS_ITS | Encounter Summary ---
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) [facility] [address] [facility] [address] [place], [place] [address] Social History Tobacco Use Types Packs/Day Years Used Date Never Smoker Smokeless Tobacco: Never Used Sex Assigned at Date Recorded Not on file documented as of this encounter Plan of Treatment Not on filedocumented as of this encounter Procedures Procedure Name Priority Date/Time Associated Diagnosis Comme nts [facility] THERAPEUTIC Routine 03/16/2019 4:32 PM E COMMERCE SOLUTION ARCHITECT Lumbar pain ACTIVITIES [facility] THERAPEUTIC Routine 03/16/2019 4:32 PM E COMMERCE SOLUTION ARCHITECT Lumbar pain EXERCISES documented in this encounter Visit Diagnoses Diagnosis Lumbar pain - Primary Lumbago documented in this encounter Care Teams Commodity Supervisor Relationship Specialty Start Date End Date Idalmis Sloan PCP - General Family Practice 11/04/13 documented as of this encounter
--- OUTSIDE RECORDS SUMMARY | 2021-11-27 14:26 | XMS_ITS | Encounter Summary ---
:1950 Author Organization [place] Address [address] [place] [address] Care Team Providers Name Role Phone Idalmis Sloan Primary Care Provider Reason for Visit Reason Comments Wound Infection Back Pain Nausea Diarrhea Auth/Cert Specialty Diagnoses / Procedures Referred By Contact Refer red To Contact Med Surg Diagnoses Cellulitis of right foot H/O Clostridium difficile infection Diarrhea, unspecified type Cellulitis of right foot Observation Dept [address] [place], [place] [address] Phone: Referral ID Status Reason Start Date Expiration Date Visits Requ ested Visits Authorized [id number] 1 1 Encounter Details Date Type Department Care Team Description 11/04/2018 - [facility] Codie Morales MD [facility] [address] [facility] [address] [place] [address] Cellulitis of right foot; 11/06/2018 [facility] Observation Chuck Cook MD [address] [place], [place] [id number] Diarrhea, unspecified type; Dept H/O Clostridium difficile in fection [address] [place] [address] Social History Tobacco Use Types [...] Branch PA-C - 11/06/2018 8:24 AM CDT [facility] Hospitalist Discharge Summary Date of Admission: 11/04/2018 Date of Discharge: 11/06/2018 Discharging Provider: Dayan Branch PA-C Discharge Diagnoses Right foot cellulitis [...] difficile than other alternatives. Pain controlled with [employer] medications. No signs of sepsis. Diarrhea resolved while hospitalized, if recurrent suggest further outpatient work-up. Consultations This Hospital Stay None Code Status Full Code Time Spent on this Encounter I, Dayna Branch PA-C, personally saw the patient today and spent greater than 30 minutes discharging this patient. Dayna Branch PA-C [facility] Physical Exam Vital Signs: Temp: 97.5 ??F [...] Stephens PA-C - 11/05/2018 12:30 PM CDT [facility] Observation Unit Hospitalist Progress Note Name: Krys [...] regimen of Methadone 5 mg BID and Collins 5-325 mg PRN TID #Diarrhea: reported 12 episodes of diarrhea the day prior to admission with only 2 episodes since arriving to the hospital. C diff negative. If increased diarrhea consider checking enteric panel. #Stable medical conditions: hypertension, hypercholesterolemia, GERD, PVD, hepatitis C, necessary [employer] medications have been resumed. DVT Prophylaxis: Ambulate [...] contact Infection Prevention with any questions/concerns at *[phone]. Erica Jolly, VIKASH Grisel Samson RN - 11/04/2018 10:04 PM CDT ROOM # 205 Living Situation (if not independent, order SW consult): Home with Facility name: sound effects person: Cheikh [phone] Activity level at baseline: Independent Activity level [...] Cook MD - 11/04/2018 9:58 PM CDT [facility] History and Physical Hospitalist Service Chuck Cook [...] Full Code Primary Care Physician: Idalmis Sloan [phone] Chief Complaint: Swelling and redness of right [...] C. difficile testing. Blood culture was sent. rKys was given Anceffor right foot cellulitis. I [...] Samson RN - 11/04/2018 8:36 PM CDT [facility] ED Nurse Handoff Report Krys Mosher is [...] 1. Lift room needed: No. Bariatric: No Drywall Hanger Needed: No Isolation: yes. Infection: C-Diff Pending. [...] provider's statements to me. Diana López 11/04/2018 [facility] EMERGENCY DEPARTMENT Mervin Morales MD 11/04/18 9931 documented in this encounter Miscellaneous Notes Plan [...] Yes, SBA via gait belt and walker. Server Cashier Nurse Safe discharge environment identified: Yes Barriers [...] Return to near baseline physical activity: Yes Server Cashier Nurse Safe discharge environment identified: Yes Barriers [...] Return to near baseline physical activity: Yes Server Cashier Nurse Safe discharge environment identified: Yes Barriers [...] Pain status: Improved-controlled with oral pain medications. Collins dose ordered 1x 4. Return to near baseline physical activity: Yes Up with SBA 1 walker Server Cashier Nurse Safe discharge environment identified: Yes Barriers [...] L foot,pain at 8 sharp and shooting. Collins last at 1645, hx of chronic pain. thanks Plan of Care - Elizabeth Chong RN - 11/05/2018 3:31 PM CDT PRIMARY DIAGNOSIS: GENERIC NURSING OUTPATIENT/OBSERVATION GOALS TO BE MET BEFORE DISCHARGE: ADLs back to baseline: Yes Activity and level of assistance: Up with standby assistance. Pain status: Improved-controlled with oral pain medications. Return to near baseline physical activity: No Server Cashier Nurse Safe discharge environment identified: Yes Barriers [...] Return to near baseline physical activity: Yes Server Cashier Nurse Safe discharge environment identified: Yes Barriers [...] Return to near baseline physical activity: No Server Cashier Nurse Safe discharge environment identified: Yes Barriers [...] to continue with antibiotics and manage symptoms. Server Cashier Nurse Safe discharge environment identified: Yes Barriers [...] to continue with antibiotics and manage symptoms. Server Cashier Nurse Safe discharge environment identified: Yes Barriers to discharge: No Entered by: Grisel Samson 11/05/2018 Please review provider order for any additional goals. Nurse to notify provider when observation goals have been met and patient is ready for discharge. Pharmacy-Admission Medication History - Lazara Fontenot RPH - 11/04/2018 11:35 PM CDT 11/05 Addendum: per clarification with patient, added Collins 5-325 mg (1 tab TID prn) to Epic [employer] med list. Left sticky note to provider to review additional med. Lazara Fontenot, Pharm.D. Admission medication history interview status for this patient is complete. See [facility] admission navigator for allergy information, prior to admission medications and immunization status. Medication history interview source(s):Patient Medication history resources (including written lists, pill bottles, clinic record):[facility] records from [facility] Changes made to [facility] medication list: Added: all Medication reconciliation/reorder [...] Signature Potassium 3.8 3.4 - 5.3 11/05/2018 [facility] mmol/L 5:50 PM CDT HOSPITAL Specimen Anatomical Collection Method Collection Time Receive d Time (Source) Location / / Volume Laterality Blood specimen 11/05/2018 5:27 PM 019 5:28 (specimen) CDT PM CDT Kelly Stephens PA-C LAB - BLOOD ORDERABLES Performing Organization Address City/State/ZIP Code Phon e Number M [facility] [address] [place], [place] [address] [facility] [address] [phone] (ABNORMAL) CBC with platelets (11/05/2018 6:42 AM CDT) Analysis Performed At Patho logist Time Signature WBC 8.8 4.0 - 11.0 11/05/2018 [facility] 10e9/L 7:04 AM [facility] RBC Count 3.60 (L) 3.8 - 5.2 11/05/2018 [facility] 10e12/L 7:04 AM [facility] Hemoglobin 12.3 11.7 - 11/05/2018 [facility] 15.7 g/dL 7:04 AM [facility] Hematocrit 36.4 35.0 - 11/05/2018 [facility] 47.0 % 7:04 AM [facility] MCV 101 (H) 78 - 100 11/05/2018 [facility] fl 7:04 AM [facility] MCH 34.2 (H) 26.5 - 11/05/2018 [facility] 33.0 pg 7:04 AM [facility] MCHC 33.8 31.5 - 11/05/2018 [facility] 36.5 g/dL 7:04 AM [facility] RDW 12.9 10.0 - 11/05/2018 [facility] 15.0 % 7:04 AM [facility] Platelet Count 191 150 - 450 11/05/2018 [facility] 10e9/L 7:04 AM [facility] Specimen Anatomical Collection Method Collection Time Receive d Time (Source) Location / / Volume Laterality Blood specimen 11/05/2018 6:42 AM 019 6:43 (specimen) CDT AM CDT Chuck Cook MD LAB - BLOOD ORDERABLES Performing Organization Address City/State/ZIP Code Phon e Number M [facility] [address] [place] [address] [facility] [address] [phone] (ABNORMAL) Basic metabolic panel (11/05/2018 6:42 AM CDT) P athologist Signature Sodium 137 133 - 144 11/05/2018 [facility] mmol/L 7:16 AM [facility] Potassium 3.3 (L) 3.4 - 5.3 11/05/2018 [facility] mmol/L 7:16 AM [facility] Chloride 101 94 - 109 11/05/2018 [facility] mmol/L 7:16 AM [facility] Carbon Dioxide 30 20 - 32 11/05/2018 [facility] mmol/L 7:22 AM [facility] Anion Gap 6 3 - 14 11/05/2018 [facility] mmol/L 7:22 AM [facility] Glucose 84 70 - 99 11/05/2018 [facility] mg/dL 7:22 AM [facility] Urea Nitrogen 7 7 - 30 11/05/2018 [facility] mg/dL 7:22 AM [facility] Creatinine 0.79 0.52 - 11/05/2018 [facility] 1.04 mg/dL 7:22 AM [facility] GFR Estimate 77 >60 11/05/2018 [facility] mL/min/{1. 7:22 AM [facility] 73_m2} HOSPITAL Comment: Non GFR Calc Starting 02/16/2018, serum creatinine ba sed estimated GFR (eGFR) will be calculated using the Chronic Kidney Dise [facility] Epidemiology Collaboration (CKD-EPI) equation. GFR Estimate If 89 >60 mL/min/{1.73_m2} 11/05/2018 7: 22 AM [facility] Comment: GFR Calc Starting 02/16/2018, serum creatinine ba sed estimated GFR (eGFR) will be calculated using the Chronic Kidney Dise [facility] Epidemiology Collaboration (CKD-EPI) equation. Calcium 8.2 (L) 8.5 - 10.1 mg/dL 11/05/2018 7:22 AM [facility] Specimen Anatomical Collection Method Collection Time Receive d Time (Source) Location / / Volume Laterality Blood specimen 11/05/2018 6:42 AM 019 6:43 (specimen) CDT AM CDT Chuck Cook MD LAB - BLOOD ORDERABLES Performing Organization Address City/State/ZIP Code Phon e Number [facility] [address] [address] [facility] [address] [place], [place] [address], [facility] [phone] [facility] [address] [address], [facility] Clostridium difficile toxin B PCR (11/04/2018 7:49 PM CDT) [facility] Method Time Signature Specimen Feces 11/04/2018 [facility] 7:49 PM CDT [facility] C Diff Toxin B Negative NEG^Negat 11/05/2018 [facility] sung 12:21 AM CDT [facility] Comment: Negative: Clostridium difficile target D NA sequences NOT detected, presumed negative for Clostridium difficile toxin B or the number of bacteria present may be below the limit of detection for the test. FDA approved assay performed using [employer] GeneXpert real-time PCR. A negative result does [...] Organization Address City/State/ZIP Code Phon e Number [id number] [place] [address] [address] [place] [address] [address] [phone] Blood culture (11/04/2018 4:35 PM CDT) [facility] Method Time Signature Specimen Blood Right [...] Code Phon e Number INFECTIOUS DISEASES [address] [place] [address] DIAGNOSTIC LABORATORY, [facility] INFECTIOUS DISEASES [address] [place] [address], [place] DIAGNOSTIC LABORATORY (ABNORMAL) Basic metabolic panel (11/04/2018 4:35 PM CDT) P athologist Signature Sodium 136 133 - 144 11/04/2018 [facility] mmol/L 7:48 PM [facility] Potassium 3.0 (L) 3.4 - 5.3 11/04/2018 [facility] mmol/L 7:48 PM [facility] Chloride 97 94 - 109 11/04/2018 [facility] mmol/L 7:48 PM [facility] Carbon Dioxide 31 20 - 32 11/04/2018 [facility] mmol/L 7:54 PM [facility] Anion Gap 8 3 - 14 11/04/2018 [facility] mmol/L 7:54 PM [facility] Glucose 74 70 - 99 11/04/2018 [facility] mg/dL 7:54 PM [facility] Urea Nitrogen 8 7 - 30 11/04/2018 [facility] mg/dL 7:54 PM [facility] Creatinine 0.81 0.52 - 11/04/2018 [facility] 1.04 mg/dL 7:54 PM [facility] GFR Estimate 75 >60 11/04/2018 [facility] mL/min/{1. 7:54 PM [facility] 73_m2} [facility] Comment: Non GFR Calc Starting 02/16/2018, serum creatinine ba sed estimated GFR (eGFR) will be calculated using the Chronic Kidney Dise [facility] Epidemiology Collaboration (CKD-EPI) equation. GFR Estimate If 87 >60 mL/min/{1.73_m2} 11/04/2018 7: 54 PM [facility] Comment: GFR Calc Starting 02/16/2018, serum creatinine ba sed estimated GFR (eGFR) will be calculated using the Chronic Kidney Dise [facility] Epidemiology Collaboration (CKD-EPI) equation. Calcium 9.0 8.5 - 10.1 mg/dL 11/04/2018 7:54 PM [facility] Specimen Anatomical Collection Method Collection Time Receive d Time (Source) Location / / Volume Laterality Blood specimen 11/04/2018 4:35 PM 019 7:31 (specimen) CDT PM CDT Mervin Morales MD LAB - BLOOD ORDERABLES Performing Organization Address City/State/ZIP Code Phon e Number M [facility] [address] [place], [place] [address] [facility] [address] [phone] (ABNORMAL) CBC with platelets differential (11/04/2018 4:35 PM CDT) [facility] gist Method Time Signature WBC 9.9 4.0 - 11/04/2018 [facility] 11.0 7:35 PM [facility] 10e9/L [facility] RBC Count 4.22 3.8 - 5.2 11/04/2018 [facility] 10e12/L 7:35 PM [facility] Hemoglobin 14.3 11.7 - 11/04/2018 [facility] 15.7 g/dL 7:35 PM [facility] Hematocrit 42.9 35.0 - 11/04/2018 [facility] 47.0 % 7:35 PM [facility] MCV 102 (H) 78 - 100 11/04/2018 [facility] fl 7:35 PM [facility] MCH 33.9 (H) 26.5 - 11/04/2018 [facility] 33.0 pg 7:35 [facility] MCHC 33.3 31.5 - 11/04/2018 [facility] 36.5 g/dL 7:35 PM [facility] RDW 13.3 10.0 - 11/04/2018 [facility] 15.0 % 7:35 PM [facility] Platelet Count 233 150 - 450 11/04/2018 [facility] 10e9/L 7:35 PM [facility] Diff Method Automated 11/04/2018 [facility] Method 7:35 PM [facility] % Neutrophils 69.4 % 11/04/2018 [facility] 7:35 PM [facility] % Lymphocytes 23.2 % 11/04/2018 [facility] 7:35 PM [facility] % Monocytes 5.9 % 11/04/2018 [facility] 7:35 PM [facility] % Eosinophils 0.8 % 11/04/2018 [facility] 7:35 PM [facility] % Basophils 0.4 % 11/04/2018 [facility] 7:35 PM [facility] % Immature 0.3 % 11/04/2018 [facility] Granulocytes 7:35 PM [facility] Nucleated RBCs 0 0 /100 11/04/2018 [facility] 7:35 PM [facility] Absolute 6.8 1.6 - 8.3 11/04/2018 [facility] Neutrophil 10e9/L 7:35 PM [facility] Absolute 2.3 0.8 - 5.3 11/04/2018 [facility] Lymphocytes 10e9/L 7:35 PM [facility] Absolute 0.6 0.0 - 1.3 11/04/2018 [facility] Monocytes 10e9/L 7:35 PM [facility] Absolute 0.1 0.0 - 0.7 11/04/2018 [facility] Eosinophils 10e9/L 7:35 PM [facility] Absolute 0.0 0.0 - 0.2 11/04/2018 [facility] Basophils 10e9/L 7:35 PM [facility] Abs Immature 0.0 0 - 0.4 11/04/2018 [facility] Granulocytes 10e9/L 7:35 PM [facility] Absolute 0.0 11/04/2018 [facility] Nucleated RBC 7:35 PM [facility] Specimen Anatomical Collection Method Collection Time Receive d Time (Source) Location / / Volume Laterality Blood specimen 11/04/2018 4:35 PM 019 7:31 (specimen) CDT CDT Mervin Morales MD LAB - BLOOD ORDERABLES Performing Organization Address City/State/ZIP Code Phon e Number M [place] [address] [phone] documented in this encounter Visit Diagnoses Diagnosis [...] mg, Intravenous, ONCE, Administer over 2-5 Minutes, [facility] 11/04/18 at 1959, For 1 dose, Irritant. [...] Oral, AT BEDTIME PRN, sleep, Start ing [facility] 11/04/18 at 2144, Do not give unless at least 6 hours of uninterrupted sleep is expected. naloxone (NARCAN) injection 0.1-0.4 mg 0.1-0.4 mg, Intravenous, EVERY 2 MIN PRN , opioid reversal, Starting [facility] 11/04/18 at 2144, For respiratory rate LESS [...] usea, vomiting, Administer over 2-5 Minutes, Starting [facility] 11/04/18 at 2144, This is Step 1 of nausea and vomiting management. If nausea not resolved in 15 minutes, go to Step 2 prochlorperazine (COMPAZINE ). Irritant. For ordered IV doses 0.1-4 mg, give IV Push undiluted over 2-5 minutes. ondansetron (ZOFRAN-ODT) ODT tab 4 mg(Linked Group 1) 4072 (Given - Provider: Grisel Samson, SANTOS) 0839 [...] required. oxyCODONE (ROXICODONE) tablet 5 mg (CANCELED) 1052 (Gi nickolas - Provider: Grisel Samson RN) [...] ordered.
documented in this encounter Care Teams Day Care Home Provider Relationship Specialty Start Date End Date Idalmis Sloan PCP - General Family Practice 11/04/13 documented as of this encounter
--- OUTSIDE RECORDS SUMMARY | 2021-11-27 14:26 | XMS_ITS | Encounter Summary ---
:1950 Author Organization [place] Address [address] [place] [address] Care Team Providers Name Role Phone Idalmis [...] on filedocumented in this encounter Care Teams Molten Iron Pourer Relationship Specialty Start Date End Date Idalmis Sloan PCP - General Family Practice 11/04/13 documented as of this encounter
--- OUTSIDE RECORDS SUMMARY | 2021-11-27 14:26 | XMS_ITS | Encounter Summary ---
:1950 Author Organization [place] Address [address] [place] [address] Care Team Providers Name Role Phone Idalmis [...] on filedocumented in this encounter Care Teams Global Supply Chain Director Relationship Specialty Start Date End Date Idalmis Sloan PCP - General Family Practice 11/04/13 documented as of this encounter
--- OUTSIDE RECORDS SUMMARY | 2021-11-27 14:26 | XMS_ITS | Encounter Summary ---
:1950 Author Organization [place] Address [address] [place] [address] Care Team Providers Name Role Phone Idalmis [...] on filedocumented in this encounter Care Teams Wind Turbine Design Engineer Relationship Specialty Start Date End Date Idalmis Sloan PCP - General Family Practice 11/04/13 documented as of this encounter
--- OUTSIDE RECORDS SUMMARY | 2021-11-27 14:26 | XMS_ITS | Encounter Summary ---
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) [facility] [address] [facility] [address] [place], [place] [address] Social History Tobacco Use Types Packs/Day Years Used Date Never Smoker Smokeless Tobacco: Never Used Sex Assigned at Date Recorded Not on file documented as of this encounter Plan of Treatment Not on filedocumented as of this encounter Procedures Procedure Name Priority Date/Time Associated Diagnosis Comme nts [facility] THERAPEUTIC Routine 03/30/2019 3:56 PM TELEPRINTER INSTALLER Lumbar pain ACTIVITIES Z THERAPEUTIC Routine 03/30/2019 3:56 PM TELEPRINTER INSTALLER Lumbar pain EXERCISES documented in this encounter Visit Diagnoses Diagnosis Lumbar pain - Primary Lumbago documented in this encounter Care Teams Crime Victim Specialist Relationship Specialty Start Date End Date Idalmis Sloan PCP - General Family Practice 11/04/13 documented as of this encounter
--- OUTSIDE RECORDS SUMMARY | 2021-11-27 14:26 | XMS_ITS | Encounter Summary ---
:1950 Author Organization [place] Address [address] [place] [address] Care Team Providers Name Role Phone Idalmis [...] on filedocumented in this encounter Care Teams Outboard Motor Tester Relationship Specialty Start Date End Date Idalmis Sloan PCP - General Family Practice 11/04/13 documented as of this encounter
--- OUTSIDE RECORDS SUMMARY | 2021-11-27 14:26 | XMS_ITS | Encounter Summary ---
:1950 Author Organization [place] Address [address] [facility] [place] [address] Care Team Providers Name Role Phone Idalmis Sloan Primary Care Provider Reason for Visit [facility] (Routine) - Closed Specialty Diagnoses / Procedures Referred By Contact Refer red To Contact Construction Project Manager Diagnoses >4 Lefft side hip pain, LBP / Idalmis Sloan MD@ [place] / bs /referral exists 20V thru 03.01.18(MSG) Idalmis Sloan Linda, PTA / Physical Therapy Procedures SPINE FOLLOW UP [facility] [address] [place] [address] Referral ID Status Reason Start Date Expiration Date Visits Requ ested Visits Authorized [id number] Closed 03/16/2018 03/01/2019 20 18 Encounter Details Date Type Department Care Team Description 03/22/[address] [facility] Belén [place], Hip josefina n, left Rehabilitation Services [facility] [place] [address] [facility] [address] [place] [address] Social History Tobacco Use Types [...] Procedure Name Priority Date/Time Associated Diagnosis Comme [facility] THERAPEUTIC Routine 03/23/2018 12:46 PM Hip pain, left EXERCISES BRIDAL GOWN FITTER documented in this encounter Visit Diagnoses Diagnosis Hip pain, left Pain in joint, pelvic region and thigh documented in this encounter Care Teams Traffic Rate Analyst Relationship Specialty Start Date End Date Idalmis Sloan PCP - General Family Practice 11/04/13 documented as of this encounter
--- OUTSIDE RECORDS SUMMARY | 2021-11-27 14:27 | XMS_ITS | Encounter Summary ---
:1950 Author Organization [place] Address [address] [facility] [place] [address] Care Team Providers Name Role Phone LeviIdalmis stahl Ann Primary Care Provider Reason for Visit Reason Onset Date Comments Outreach 04/14/2017 UC FOLLOW UP - COMPL ETED Encounter Details Date Type Department Care Team Description 04/14/2017 Telephone [facility] Laith Oliver ( FOLLOW UP Urgent Care Lacy Craig MD - COMPLETED) [address] [place], [place] CYNDI, LEELA [id number] [phone] Social History Tobacco Use Types Packs/Day Years [...] others? YES Comments: Appointment scheduled? NO Location? VISION SCHEDULE COORDINATOR documented in this encounter Plan of Treatment Not on filedocumented as of this encounter Visit Diagnoses Not on filedocumented in this encounter Care Teams Exam Proctor Relationship Specialty Start Date End Date LeviIdalmis stahl Ann PCP - General Family Practice 11/04/13 documented as of this encounter
--- OUTSIDE RECORDS SUMMARY | 2021-11-27 14:27 | XMS_ITS | Encounter Summary ---
:1950 Author Organization [place] Address [address] [place] [address]. [place] [address] Care Team Providers Name Role Phone Idalmis Sloan Primary Care Provider Reason for Visit KIMBER Physical Therapy (Routine) - Denied Specialty Diagnoses / Procedures Referred By Contact Refer red To Contact Physical Therapy Diagnoses >4 s/p L rot cuff / mehdi lorenzana @ ortho / BCBS 30 visits per year Mehdi Gaffney MD Judd, Laurie, PT Procedures EXTREMITY INITIAL ORTHOPAEDIC AND K[facility]BER [facility] [address] [place] [address] [place] [address] Fax: Referral ID Status Reason Start Date Expiration Date Visits V isits Requested Authorized KIMBER/WC/PT/L Denied 06/11/2015 06/10/2016 14 0 SHLDR POST [id number] Encounter Details Date Type Department Care Team Description 08/03[facility]2015 [facility] Sprain of left rotator cuff capsule, subsequent encounter (Primary Dx); Rehabilitation Services CORRINA Melissa Otnatacha r postprocedural status(V45.89) [facility] Care [place] [address] [facility] [address] [place] [address] Social History Tobacco Use Types [...] cuff capsule, subsequent encounter Other postprocedural status(V45.89) [facility] NEUROMUSCULAR Routine 08/03/2015 10:32 AM Sprain of left r otator RE-EDUCATION CDT cuff capsule, subsequent encounter Other postprocedural status(V45.89) [facility] THERAPEUTIC Routine 08/03/2015 10:32 AM Sprain of left rot ator EXERCISES CDT cuff capsule, subsequent encounter Other postprocedural status(V45.89) documented in this encounter Visit Diagnoses Diagnosis Sprain of left rotator cuff capsule, sub sequent encounter - Primary Other postprocedural status(V45.89) Other postprocedural status documented in this encounter Care Teams Field Producer Relationship Specialty Start Date End Date Idalmis Sloan PCP - General Family Practice 11/04/13 documented as of this encounter
--- OUTSIDE RECORDS SUMMARY | 2021-11-27 14:27 | XMS_ITS | Encounter Summary ---
:1950 Author Organization [place] Address [facility] [place] [address] Care Team Providers Name Role Phone Idalmis Sloan Primary Care Provider Encounter Details Date Type Department Care Team Description 11/12/2015 Therapy Visit [facility] [place] Saeed, PT Other postprocedural status(V45.89); Rehabilitation KIMBER [place] Sprain of left rotator cuff capsule, sub sequent encounter Services [place] [id number] [place] [address] Specialty Care Allen gu[address] [facility] [address] [address] [place], [place] [address] [address] [place] [address] [phone] Social History Tobacco Use Types Packs/Day Years [...] abd), MMT: L ER=3-/5, flex=3-/5, Abd=3-/5, PROM: rfzh=751, joint creptation noted with painful movement, Dsr=912, ER=45 ASSESSMENT/PLAN Updated problem list and treatment [...] Name Priority Date/Time Associated Diagnosis Comme nts [facility] NEUROMUSCULAR Routine 11/12/2015 3:40 PM Other postprocedu ral RE-EDUCATION CDT status(V45.89) Sprain of left rotator cuff capsule, subsequent encounter [facility] THERAPEUTIC Routine 11/12/2015 3:40 PM Other postprocedura l EXERCISES CDT status(V45.89) Sprain of left rotator cuff capsule, subsequent encounter documented in this encounter Visit Diagnoses Diagnosis Other postprocedural status(V45.89) Other postprocedural status Sprain of left rotator cuff capsule, sub sequent encounter documented in this encounter Care Teams Cook Room Supervisor Relationship Specialty Start Date End Date Idalmis Sloan PCP - General Family Practice 11/04/13 documented as of this encounter
--- OUTSIDE RECORDS SUMMARY | 2021-11-27 14:27 | XMS_ITS | Encounter Summary ---
:1950 Author Organization [place] Address [address] [place] [address] Care Team Providers Name Role Phone Idalmis Sloan Primary Care Provider Encounter Details Date Type Department Care Team Description 09/05/[address] [facility] [place] Saeed PT Sprain of left rotator cuff capsule, sub sequent encounter (Primary Dx); Rehabilitation [facility] Other postprocedural status(V45.89) Services [address] Specialty Care Allen gu[address]man [address] [facility] [address] [address] [place], [place] [address] [address] [place], [place] [address] Social History Tobacco Use Types Packs/Day Years Used Date Never Assessed Sex Assigned at Date Recorded Not on file documented as of this encounter Plan of Treatment Not on filedocumented as of this encounter Procedures Procedure Name Priority Date/Time Associated Diagnosis Comme nts [facility] NEUROMUSCULAR Routine 09/05/2015 3:16 PM Sprain of left ro tator RE-EDUCATION CDT cuff capsule, subsequent encounter Other postprocedural status(V45.89) [facility] THERAPEUTIC Routine 09/05/2015 3:16 PM Sprain of left rota tor EXERCISES CDT cuff capsule, subsequent encounter Other postprocedural status(V45.89) documented in this encounter Visit Diagnoses Diagnosis Sprain of left rotator cuff capsule, sub sequent encounter - Primary Other postprocedural status(V45.89) Other postprocedural status documented in this encounter Care Teams Suggestion Clerk Relationship Specialty Start Date End Date Idalmis Sloan PCP - General Family Practice 11/04/13 documented as of this encounter
--- OUTSIDE RECORDS SUMMARY | 2021-11-27 14:27 | XMS_ITS | Encounter Summary ---
:1950 Author Organization [place] Address [address] [facility] 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
--- OUTSIDE RECORDS SUMMARY | 2021-11-27 14:27 | XMS_ITS | Encounter Summary ---
:1950 Author Organization [place] Address [address] [place] [address]. [place] [address] Care Team Providers Name Role Phone Unavailable [...] Waleska Alcaraz - 01/16/2012 7:49 PM CST [place] [facility] Triage Call Report Patient Name: Krys Mosher Call Date & Time: 07/18/2011 8:05:57PM Patient PCP Name: Idalmis Sloan MRN: Patient Address: [address] [address] Patient Date of : 1950 Age: 61 yr. 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 Red, painful, swollen. Went to a foot doctor amonth ago who shaved off a callus and a few days ago little right toe started getting red; now looks infected she states. Refuses ER due to high deductible and insurance problems; and wants to see if MD sonographer would call in an ABX. Is allergic to : cipro possibly; sulfa and augmentin. Can take Keflex and levoquin she states. I called Dr. Chacon and he allowed me to call in an Rx Keflex po 500mg TID x7days. I called this into [facility] in [place]. This note will be faxed to [place] office; please ATTN: Dr. Scheid. Triage Note: [...] Procedure Note: .Other right foot surgery 2006 MAKER documented in this encounter Plan of Treatment Not on filedocumented as of this encounter Visit Diagnoses Not on filedocumented in this encounter
--- OUTSIDE RECORDS SUMMARY | 2021-11-27 14:27 | XMS_ITS | Encounter Summary ---
:1950 Author Organization [place] Address [facility] 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
--- OUTSIDE RECORDS SUMMARY | 2021-11-27 14:27 | XMS_ITS | Encounter Summary ---
:1950 Author Organization [place] Address [address] [place] [address]. [place] [address] Care Team Providers Name Role Phone Idalmis Sloan Primary Care Provider Reason for Visit KIMBER Physical Therapy (Routine) - Denied Specialty Diagnoses / Procedures Referred By Contact Refer red To Contact Physical Therapy Diagnoses >4 s/p L rot cuff / mehdi lorenzana @ ortho / BCBS 30 visits per year Mehdi Gaffney MD Judd, Laurie, PT Procedures EXTREMITY INITIAL ORTHOPAEDIC AND KIMBER [facility] [address] [place] [address] [address] [place] [address] [place] [address] Fax: Referral ID Status Reason Start Date Expiration Date Visits V isits Requested Authorized KIMBER/WC/PT/L Denied 06/11/2015 06/10/2016 14 0 SHLDR POST [id number] Encounter Details Date Type Department Care Team Description 06/27/2015 [facility] Sprain of left rotator cuff capsule, subsequent encounter (Primary Dx); Rehabilitation Services CORRINA Melissa Otnatacha r postprocedural status(V45.89) [facility] [address] [facility] [address] [place] [address] Social History Tobacco Use Types Packs/Day Years Used Date Never Assessed Sex Assigned at Date Recorded Not on file documented as of this encounter Plan of Treatment Not on filedocumented as of this encounter Procedures Procedure Name Priority Date/Time Associated Diagnosis Comme [facility] ZC THERAPEUTIC Routine 06/27/2015 8:29 PM Sprain of left rota tor EXERCISES CDT cuff capsule, subsequent encounter Other postprocedural status(V45.89) [facility] HOT OR COLD PACKS Routine 06/27/2015 8:29 PM Sprain of lef t rotator THERAPY CDT cuff capsule, subsequent encounter Other postprocedural status(V45.89) documented in this encounter Visit Diagnoses Diagnosis Sprain of left rotator cuff capsule, sub sequent encounter - Primary Other postprocedural status(V45.89) Other postprocedural status documented in this encounter Care Teams Merchant Mariner Relationship Specialty Start Date End Date Idalmis Sloan PCP - General Family Practice 11/04/13 documented as of this encounter
--- OUTSIDE RECORDS SUMMARY | 2021-11-27 14:27 | XMS_ITS | Encounter Summary ---
:1950 Author Organization [place] Address [address] [facility] [place] [address] Care Team Providers Name Role Phone Idalmis Sloan Primary Care Provider Encounter Details Date Type Department Care Team Description 11/09/2014 Therapy Visit [facility] Fidelia Chang pain Rehabilitation Services SHANAE Sweet (Primary Dx) [place] [facility] [address] [facility] [address] [facility] [address] [place] [id number] Social History Tobacco Use Types Packs/Day Years [...] from spouse. BETTER with rest, methocarbanol. 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 Objective: System Shoulder Evaluation: ROM: AROM: Flexion: [...] Sheet for this information) Short term and rodent exterminator goals: (See Goal Flow Sheet for this [...] 10:13 AM Left shoulder pain EXERCISES CDT [facility] HOT OR COLD PACKS Routine 11/13/2014 10:13 AM Left shoulde r pain THERAPY CDT documented in this encounter Visit Diagnoses Diagnosis Left shoulder pain - Primary Pain in joint, shoulder region documented in this encounter Care Teams Credit Verifier Relationship Specialty Start Date End Date Idalmis Sloan PCP - General Family Practice 11/04/13 documented as of this encounter
--- OUTSIDE RECORDS SUMMARY | 2021-11-27 14:27 | XMS_ITS | Encounter Summary ---
:1950 Author Organization [place] Address [address] [facility] [place] [address] Care Team Providers Name Role Phone Idalmis Sloan Primary Care Provider Encounter Details Date Type Department Care Team Description 06/03/2015 Telephone [facility] Nurse Sabiha Shelton , RN [facility] [address] [employer] [place] [address] Social History Tobacco Use Types Packs/Day [...] bone; or pure bloody urine ? NO [place] something pass with urination ? NO Unbearable [...] on filedocumented in this encounter Care Teams Freight Broker Agent Relationship Specialty Start Date End Date Idalmis Sloan PCP - General Family Practice 11/04/13 documented as of this encounter
--- OUTSIDE RECORDS SUMMARY | 2021-11-27 14:27 | XMS_ITS | Encounter Summary ---
:1950 Author Organization [place] Address [address] [place] [address] Care Team Providers Name Role Phone NathaliaIdalmisVijaya Primary Care Provider Encounter Details Date Type Department Care Team Description 11/13/2013 Telephone [facility] Nurse Idalmis Sloan Advisors [facility] [address] [facility] Dri ve [address] [place] [address] [place] [address] [phone] (Wo rk) Social History Tobacco Use Types [...] better.I know an abx would help.Who is neonatal pediatric nurse? Advised to be seen.Page sent to MD per pt.Md advised to be seen in am. Pt stated she will go to the [facility]. # [phone] Triage Note: Guideline Title: Cough - Adult [...] air. Be sure to clean according to shell sorter's instructions. Limit activities and increase periods of [...] on filedocumented in this encounter Care Teams Senior Interactive Producer Relationship Specialty Start Date End Date Idalmis Sloan PCP - General Family Practice 11/04/13 documented as of this encounter
--- OUTSIDE RECORDS SUMMARY | 2021-11-27 14:27 | XMS_ITS | Encounter Summary ---
:1950 Author Organization [place] Address [facility] [place] [address] Care Team Providers Name Role Phone Idalmis Sloan Primary Care Provider Reason for Visit KIMBER Physical Therapy (Routine) - Denied Specialty Diagnoses / Procedures Referred By Contact Refer red To Contact Physical Therapy Diagnoses >4 s/p L rot cuff / mehdi lorenzana @ ortho / BCBS 30 visits per year Mehdi Gaffney MD Judd, Laurie, PT Procedures EXTREMITY INITIAL ORTHOPAEDIC AND K[facility] [id number] [place] [address] [address] [facility] [address] [place] [address] [place] [address] Fax: Referral ID Status Reason Start Date Expiration Date Visits V isits Requested Authorized KIMBER/WC/PT/L Denied 06/11/2015 06/10/2016 14 0 SHLDR POST [id number] Encounter Details Date Type Department Care Team Description 07/03/2015 Therapy Visit [facility] [place] Wheeler, PT Sprain of left rotator cuff capsule, sub sequent encounter (Primary Dx); [facility] Other postprocedural status(V45.89) Services [place] [id number] [place] [address] Specialty Care Allen BE[address] [address] [place], [place] [address] [address] [place] [address] Social History Tobacco Use Types Packs/Day Years Used Date Never Assessed Sex Assigned at Date Recorded Not on file documented as of this encounter Plan of Treatment Not on filedocumented as of this encounter Procedures Procedure Name Priority Date/Time Associated Diagnosis Comme nts [facility] NEUROMUSCULAR Routine 07/04/2015 2:00 PM Sprain of left ro tator RE-EDUCATION CDT cuff capsule, subsequent encounter Other postprocedural status(V45.89) [facility] THERAPEUTIC Routine 07/04/2015 2:00 PM Sprain of left rota tor EXERCISES CDT cuff capsule, subsequent encounter Other postprocedural status(V45.89) documented in this encounter Visit Diagnoses Diagnosis Sprain of left rotator cuff capsule, sub sequent encounter - Primary Other postprocedural status(V45.89) Other postprocedural status documented in this encounter Care Teams Line Analyst Relationship Specialty Start Date End Date Idalmis Sloan PCP - General Family Practice 11/04/13 documented as of this encounter
--- OUTSIDE RECORDS SUMMARY | 2021-11-27 14:27 | XMS_ITS | Encounter Summary ---
:1950 Author Organization [place] Address [address] [place] [address]. [place] [address] Care Team Providers Name Role Phone Idalmis Sloan Primary Care Provider Reason for Visit KIMBER Physical Therapy (Routine) - Denied Specialty Diagnoses / Procedures Referred By Contact Refer red To Contact Physical Therapy Diagnoses >4 s/p L rot cuff / mehdi lorenzana @ ortho / BCBS 30 visits per year Mehdi Gaffney MD Judd, Laurie, PT Procedures EXTREMITY INITIAL ORTHOPAEDIC AND KIMBER [facility] [address] [place] [address] [place] [address] [place] [address] Fax: Referral ID Status Reason Start Date Expiration Date Visits V isits Requested Authorized KIMBER/WC/PT/L Denied 06/11/2015 06/10/2016 14 0 SHLDR POST [id number] Encounter Details Date Type Department Care Team Description 06/21/2015 [facility] Sprain of left rotator cuff capsule, subsequent encounter (Primary Dx); Rehabilitation Services CORRINA Melissa Othe r postprocedural status(V45.89) [facility] [address] [facility] [address] [place] [address] Social History Tobacco Use Types [...] Comme nts [facility] THERAPEUTIC Routine 06/22/2015 10:17 AM Sprain of left rot ator EXERCISES CDT cuff capsule, subsequent encounter Other postprocedural status(V45.89) [facility] HOT OR COLD PACKS Routine 06/22/2015 10:17 AM Sprain of le ft rotator THERAPY CDT cuff capsule, subsequent encounter Other postprocedural status(V45.89) documented in this encounter Visit Diagnoses Diagnosis Sprain of left rotator cuff capsule, sub sequent encounter - Primary Other postprocedural status(V45.89) Other postprocedural status documented in this encounter Care Teams Patrol Agent Relationship Specialty Start Date End Date Idalmis Sloan PCP - General Family Practice 11/04/13 documented as of this encounter
--- OUTSIDE RECORDS SUMMARY | 2021-11-27 14:27 | XMS_ITS | Encounter Summary ---
:1950 Author Organization [place] Address [address] [place] [address]. [place] [address] Care Team Providers Name Role Phone Idalmis Sloan Primary Care Provider Reason for Visit KIMBER Physical Therapy (Routine) - Denied Specialty Diagnoses / Procedures Referred By Contact Refer red To Contact Physical Therapy Diagnoses >4 s/p L rot cuff / mehdi lorenzana @ ortho / BCBS 30 visits per year Mehdi Gaffney MD Judd, Laurie, PT Procedures EXTREMITY INITIAL ORTHOPAEDIC AND KIMBER [facility] [address] [place] [address] [place] [address] [place] [address] Fax: Referral ID Status Reason Start Date Expiration Date Visits V isits Requested Authorized KIMBER/WC/PT/L Denied 06/11/2015 06/10/2016 14 0 SHLDR POST [id number] Encounter Details Date Type Department Care Team Description 06/14/2015 [facility] Sprain of left rotator cuff capsule, subsequent encounter (Primary Dx); Rehabilitation Services CORRINA Melissa Otnatacha r postprocedural status(V45.89) [facility] [address] [facility] [address] [place] [address] Social History Tobacco Use Types Packs/Day Years Used Date Never Assessed Sex Assigned at Date Recorded Not on file documented as of this encounter Plan of Treatment Not on filedocumented as of this encounter Procedures Procedure Name Priority Date/Time Associated Diagnosis Comme [facility] ZC THERAPEUTIC Routine 06/15/2015 6:45 AM Sprain of left rota tor EXERCISES CDT cuff capsule, subsequent encounter Other postprocedural status(V45.89) [facility] HOT OR COLD PACKS Routine 06/15/2015 6:45 AM Sprain of lef t rotator THERAPY CDT cuff capsule, subsequent encounter Other postprocedural status(V45.89) documented in this encounter Visit Diagnoses Diagnosis Sprain of left rotator cuff capsule, sub sequent encounter - Primary Other postprocedural status(V45.89) Other postprocedural status documented in this encounter Care Teams Mineral Economist Relationship Specialty Start Date End Date Idalmis Sloan PCP - General Family Practice 11/04/13 documented as of this encounter
--- OUTSIDE RECORDS SUMMARY | 2021-11-27 14:27 | XMS_ITS | Encounter Summary ---
:1950 Author Organization [place] Address [facility] [place] [address] Care Team Providers Name Role Phone Idalmis Sloan Primary Care Provider Reason for Visit KIMBER Physical Therapy (Routine) - Denied Specialty Diagnoses / Procedures Referred By Contact Refer red To Contact Physical Therapy Diagnoses >4 s/p L rot cuff / mehdi lorenzana @ ortho / BCBS 30 visits per year Mehdi Gaffney MD Judd, Laurie, PT Procedures EXTREMITY INITIAL ORTHOPAEDIC AND KIMBER [facility] [id number] [place] [address] [address] [facility] [address] [place] [address] [place] [address] Fax: Referral ID Status Reason Start Date Expiration Date Visits V isits Requested Authorized KIMBER/WC/PT/L Denied 06/11/2015 06/10/2016 14 0 SHLDR POST [id number] Encounter Details Date Type Department Care Team Description 08/01/2015 Therapy Visit [facility] [place] Wheeler, PT Sprain of left rotator cuff capsule, sub sequent encounter (Primary Dx); [facility] Other postprocedural status(V45.89) Services [place] [id number] [place] [address] Specialty Care Allen [address] [address] [place], [place] [address] [address] [place] [address] Social History Tobacco Use Types Packs/Day Years Used Date Never Assessed Sex Assigned at Date Recorded Not on file documented as of this encounter Plan of Treatment Not on filedocumented as of this encounter Procedures Procedure Name Priority Date/Time Associated Diagnosis Comme nts [facility] NEUROMUSCULAR Routine 08/02/2015 7:18 AM Sprain of left ro tator RE-EDUCATION CDT cuff capsule, subsequent encounter Other postprocedural status(V45.89) [facility] THERAPEUTIC Routine 08/02/2015 7:18 AM Sprain of left rota tor EXERCISES CDT cuff capsule, subsequent encounter Other postprocedural status(V45.89) documented in this encounter Visit Diagnoses Diagnosis Sprain of left rotator cuff capsule, sub sequent encounter - Primary Other postprocedural status(V45.89) Other postprocedural status documented in this encounter Care Teams Basting Machine Operator Relationship Specialty Start Date End Date Idalmis Sloan PCP - General Family Practice 11/04/13 documented as of this encounter
--- OUTSIDE RECORDS SUMMARY | 2021-11-27 14:27 | XMS_ITS | Encounter Summary ---
:1950 Author Organization [place] Address [facility] [place] [address] Care Team Providers Name Role Phone Idalmis Sloan Primary Care Provider Encounter Details Date Type Department Care Team Description 10/02/[address] [facility] [place] Saeed, PT Cervical radiculitis Rehabilitation Services KIMBERJose PINTO (Primary Dx) [facility] [address] [facility] 300 [address] [place], [place] [address] [address] [place], [place] [id number] Social History Tobacco Use Types Packs/Day Years [...] extension) C8 (thumb extension) T1 (finger add/abd) Merchandising Director Strength (lb) Sensory Deficit, Reflexes, Dural Signs: [...] Sheet for this information) Short term and escrow officer goals: (See Goal Flow Sheet for this [...] Name Priority Date/Time Associated Diagnosis Comme nts [facility] Routine 10/02/2015 4:55 PM CDT Cervical radicu litis TECH,1+REGIONS,EA 15 MIN ZZC THERAPEUTIC Routine 10/02/2015 4:55 PM CDT Cervical radicu litis EXERCISES documented in this encounter Visit Diagnoses Diagnosis Cervical radiculitis - Primary Brachial neuritis or radiculitis nos documented in this encounter Care Teams Armature Winder Helper Repair Relationship Specialty Start Date End Date Idalmis Sloan PCP - General Family Practice 11/04/13 documented as of this encounter
--- OUTSIDE RECORDS SUMMARY | 2021-11-27 14:27 | XMS_ITS | Encounter Summary ---
:1950 Author Organization [place] Address [address] [place] [address] Care Team Providers Name Role Phone Unavailable [...] Waleska Alcaraz - 08/02/2012 4:30 PM CDT [facility] Triage Call Report Patient Name: Krys Mosher Call Date & Time: 07/31/2012 2:40:00PM Patient PCP Name: Idalmis Sloan Patient Address: [address] [place] [address] Patient Date of : 1950 Age: 62 yr. 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 Allergies Cipro, augmentin , sulfa and Lorazepam. [facility] phone [phone]. Triage Note: Guideline Title: Infection On Antibiotic [...]
--- OUTSIDE RECORDS SUMMARY | 2021-11-27 14:27 | XMS_ITS | Encounter Summary ---
:1950 Author Organization [place] Address [address] [facility] [place] [address] Care Team Providers Name Role Phone Idalmis Sloan Primary Care Provider Encounter Details Date Type Department Care Team Description 11/04/2013 Hospital Encounter [facility] Jermaine Paz Ulceration (H) [facility] MD Chuck [address] [place], [place] [facility] [phone] [phone] [place] [address] (Wo rk) Social History Tobacco [...] site documented in this encounter Care Teams Associate Web Developer Relationship Specialty Start Date End Date Idalmis Sloan PCP - General Family Practice 11/04/13 documented as of this encounter
--- OUTSIDE RECORDS SUMMARY | 2021-11-27 14:27 | XMS_ITS | Encounter Summary ---
:1950 Author Organization [place] Address [facility] [place] [address] Care Team Providers Name Role Phone Idalmis Sloan Primary Care Provider Encounter Details Date Type Department Care Team Description 08/10/[address] 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
--- OUTSIDE RECORDS SUMMARY | 2021-11-27 14:27 | XMS_ITS | Encounter Summary ---
:1950 Author Organization [place] Address [address] [facility] [place] [address] Care Team Providers Name Role Phone Idalmis Sloan Primary Care Provider Encounter Details Date Type Department Care Team Description 10/02/2015 Telephone [facility] rse Advisors Madelin Brown, RN [address] [place] [address] Social History Tobacco Use Types Packs/Day [...] on filedocumented in this encounter Care Teams Manufacturing Technology Analyst Relationship Specialty Start Date End Date Idalmis Sloan PCP - General Family Practice 11/04/13 documented as of this encounter
--- OUTSIDE RECORDS SUMMARY | 2021-11-27 14:27 | XMS_ITS | Encounter Summary ---
:1950 Author Organization [place] Address [facility] [address] Care Team Providers Name Role Phone Idalmis Sloan Primary Care Provider Reason for Visit KIMBER Physical Therapy (Routine) - Denied Specialty Diagnoses / Procedures Referred By Contact Refer red To Contact Physical Therapy Diagnoses >4 s/p L rot tiff / mehdi lorenzana @ ortho / BCBS 30 visits per year Mehdi Gaffney MD Judd, Laurie, PT Procedures EXTREMITY INITIAL ORTHOPAEDIC AND K[facility]BER [facility] [address] [place] [address] [place] [address] Fax: Referral ID Status Reason Start Date Expiration Date Visits V isits Requested Authorized KIMBER/WC/PT/L Denied 06/11/2015 06/10/2016 14 0 SHLDR POST [id number] Encounter Details Date Type Department Care Team Description 06/11/2015 Therapy Visit [facility] [place] Wheeler, PT Sprain of left rotator cuff capsule (Apoorva womack Dx); [facility] Other postprocedural status(V45.89) Services [place] [id number] [place] [address] [facility] [address] [address] [place], [place] [address] [address] [place] [address] Social History Tobacco Use Types [...] Sheet for this information) Short term and intermediate goals: (See Goal Flow Sheet for this [...] status documented in this encounter Care Teams Speech Correction Assistant Relationship Specialty Start Date End Date Idalmis Sloan PCP - General Family Practice 11/04/13 documented as of this encounter
--- OUTSIDE RECORDS SUMMARY | 2021-11-27 14:27 | XMS_ITS | Encounter Summary ---
:1950 Author Organization [place] Address [facility] [place] [address] Care Team Providers Name Role Phone Idalmis Sloan Primary Care Provider Reason for Visit KIMBER Physical Therapy (Routine) - Denied Specialty Diagnoses / Procedures Referred By Contact Refer red To Contact Physical Therapy Diagnoses >4 s/p L rot cuff / mehdi lorenzana @ ortho / BCBS 30 visits per year Mehdi Gaffney MD Judd, Laurie, PT Procedures EXTREMITY INITIAL ORTHOPAEDIC AND [facility] [id number] [place] [address] [address] [facility] [address] [place] [address] [place] [address] Fax: Referral ID Status Reason Start Date Expiration Date Visits V isits Requested Authorized KIMBER/WC/PT/L Denied 06/11/2015 06/10/2016 14 0 SHLDR POST [id number] Encounter Details Date Type Department Care Team Description 08/21/2015 Therapy Visit [facility] [place] Wheeler, PT Sprain of left rotator cuff capsule, sub sequent encounter (Primary Dx); [facility] Other postprocedural status(V45.89) Services [place] [phone] [place] [address] Specialty Care [place] [address] [address] [place], [place] [address] [address] [place] [address] Social History Tobacco Use Types Packs/Day Years Used Date Never Assessed Sex Assigned at Date Recorded Not on file documented as of this encounter Plan of Treatment Not on filedocumented as of this encounter Procedures Procedure Name Priority Date/Time Associated Diagnosis Comme nts [facility] NEUROMUSCULAR Routine 08/21/2015 3:47 PM Sprain of left ro tator RE-EDUCATION CDT cuff capsule, subsequent encounter Other postprocedural status(V45.89) [facility] THERAPEUTIC Routine 08/21/2015 3:47 PM Sprain of left rota tor EXERCISES CDT cuff capsule, subsequent encounter Other postprocedural status(V45.89) documented in this encounter Visit Diagnoses Diagnosis Sprain of left rotator cuff capsule, sub sequent encounter - Primary Other postprocedural status(V45.89) Other postprocedural status documented in this encounter Care Teams Human Insights Lead Ads Marketing Relationship Specialty Start Date End Date Idalmis Sloan PCP - General Family Practice 11/04/13 documented as of this encounter
--- OUTSIDE RECORDS SUMMARY | 2021-11-27 14:27 | XMS_ITS | Encounter Summary ---
:1950 Author Organization [place] Address [address] [place] [address]. [place] [address] Care Team Providers Name Role Phone Idalmis Sloan Primary Care Provider Reason for Visit KIMBER Physical Therapy (Routine) - Denied Specialty Diagnoses / Procedures Referred By Contact Refer red To Contact Physical Therapy Diagnoses >4 s/p L rot cuff / mehdi lorenzana @ ortho / BCBS 30 visits per year Mehdi Gaffney MD Judd, Laurie, PT Procedures EXTREMITY INITIAL ORTHOPAEDIC AND K[facility]BER [facility] [address] [place] [address] [address] [place] [address] [place] [address] Fax: Referral ID Status Reason Start Date Expiration Date Visits V isits Requested Authorized KIMBER/WC/PT/L Denied 06/11/2015 06/10/2016 14 0 SHLDR POST [id number] Encounter Details Date Type Department Care Team Description 07/10/2015 [facility] Sprain of left rotator cuff capsule, subsequent encounter (Primary Dx); Rehabilitation Services CORRINA Melissa Otnatacha r postprocedural status(V45.89) [facility] [address] [facility] [address] [place] [address] Social History Tobacco Use Types [...] cuff capsule, subsequent encounter Other postprocedural status(V45.89) [facility] THERAPEUTIC Routine 07/11/2015 7:11 AM Sprain of left rota tor EXERCISES CDT cuff capsule, subsequent encounter Other postprocedural status(V45.89) documented in this encounter Visit Diagnoses Diagnosis Sprain of left rotator cuff capsule, sub sequent encounter - Primary Other postprocedural status(V45.89) Other postprocedural status documented in this encounter Care Teams Pilot Boat Captain Relationship Specialty Start Date End Date Idalmis Sloan PCP - General Family Practice 11/04/13 documented as of this encounter
--- OUTSIDE RECORDS SUMMARY | 2021-11-27 14:27 | XMS_ITS | Encounter Summary ---
:1950 Author Organization [place] Address [address] [place] [address]. [place] [address] Care Team Providers Name Role Phone Idalmis Sloan Primary Care Provider Reason for Visit KIMBER Physical Therapy (Routine) - Closed Specialty Diagnoses / Procedures Referred By Contact Refer red To Contact Physical Therapy Diagnoses >4, Back / Mercy Vasquez @ [facility] / BCBS Mercy Vasquez, Daniel Cassidy, PT Procedures SPINE INITIAL [facility] PAIN [facility] [address] [place] [address] [place] [address] [place] [address] Referral ID Status Reason Start Date Expiration Date Visits Requ ested Visits Authorized [id number] Closed 07/22/2017 03/01/2018 20 18 Encounter Details Date Type Department Care Team Description 07/29/2017 Therapy Visit [facility] Daniel Shi Lumba go (Primary Rehabilitation Services PT Dx) [place] [facility] [address] [address] [facility] [address] [place] [address] [phone] Social History Tobacco Use Types Packs/Day Years Used Date Never Smoker Smokeless Tobacco: Never Used Sex Assigned at Date Recorded Not on file documented as of this encounter Progress Notes Anirudh Wells - 07/29/2017 3:10 PM CDT [facility] Initial Evaluation Krys Mosher [...] Sheet for this information) Short term and [facility] goals: (See Goal Flow Sheet for this [...] Primary documented in this encounter Care Teams Strand Buncher Fine Wire Relationship Specialty Start Date End Date Idalmis Sloan PCP - General Family Practice 11/04/13 documented as of this encounter
--- OUTSIDE RECORDS SUMMARY | 2021-11-27 14:27 | XMS_ITS | Encounter Summary ---
:1950 Author Organization [place] Address [facility] [place] [address] Care Team Providers Name Role Phone Idalmis Sloan Primary Care Provider Reason for Visit [facility] Physical Therapy (Routine) - Denied Specialty Diagnoses / Procedures Referred By Contact Refer red To Contact Physical Therapy Diagnoses >4 s/p L rot cuff / mehdi lorenzana @ ortho / BCBS 30 visits per year Mehdi Gaffney MD Judd, Laurie, PT Procedures EXTREMITY INITIAL ORTHOPAEDIC AND KIMBER [facility] [id number] [place] [address] [address] [facility] [address] [place] [address] [place] [address] Fax: Referral ID Status Reason Start Date Expiration Date Visits V isits Requested Authorized KIMBER/WC/PT/L Denied 06/11/2015 06/10/2016 14 0 SHLDR POST [id number] Encounter Details Date Type Department Care Team Description 08/16/[address] [facility] [place] Wheeler, PT Sprain of left rotator cuff capsule, sub sequent encounter (Primary Dx); [facility] Other postprocedural status(V45.89) Services [place] [phone] [place] [address] Specialty Care [place] [address] [address] [place], [place] [address] [address] [place] [address] Social History Tobacco Use Types Packs/Day Years Used Date Never Assessed Sex Assigned at Date Recorded Not on file documented as of this encounter Plan of Treatment Not on filedocumented as of this encounter Procedures Procedure Name Priority Date/Time Associated Diagnosis Comme nts [facility] NEUROMUSCULAR Routine 08/16/2015 5:04 PM Sprain of left ro tator RE-EDUCATION CDT cuff capsule, subsequent encounter Other postprocedural status(V45.89) [facility] THERAPEUTIC Routine 08/16/2015 5:04 PM Sprain of left rota tor EXERCISES CDT cuff capsule, subsequent encounter Other postprocedural status(V45.89) documented in this encounter Visit Diagnoses Diagnosis Sprain of left rotator cuff capsule, sub sequent encounter - Primary Other postprocedural status(V45.89) Other postprocedural status documented in this encounter Care Teams Biomedical Electronics Technician Relationship Specialty Start Date End Date Idalmis Sloan PCP - General Family Practice 11/04/13 documented as of this encounter
--- OUTSIDE RECORDS SUMMARY | 2021-11-27 14:27 | XMS_ITS | Encounter Summary ---
:1950 Author Organization [place] Address [address] [place] [address] Care Team Providers Name Role Phone Nathalia Idalmis Parks Primary Care Provider Ana Jacobs PA-C Unavailable Madhav Matute MD Unavailable Encounter Details Date Type Department Care Team Description 11/21/2014 External Order [facility] Outside, Provider Results Rehabilitation Services [facility] [address] [facility] [address] [place] [address] Social History Tobacco Use Types [...] documented as of this encounter Care Teams Jig Box Operator Relationship Specialty Start Date End Date LeviIdalmis stahl PCP - General Family Practice 11/04/13 Ana Jacobs PA-C Assigned Neuroscience 11/04/20 12/01/20 [facility] Provider [address] [address] Madhav Matute MD Assigned Neuroscience 12/02/[address] Senior [address] [place] [address] [place] [id number] documented as of this encounter
--- OUTSIDE RECORDS SUMMARY | 2021-11-27 14:27 | XMS_ITS | Encounter Summary ---
:1950 Author Organization [place] Address [facility] [place] [address] Care Team Providers Name Role Phone Unavailable Primary Care Provider Unavailable Encounter Details Date Type Department Care Team Description 08/25/2010 Historic Notes INTERFACED REPORT Interface, Transcript onMD Social History Tobacco Use Types Packs/Day Years Used Date Never Assessed Sex Assigned at Date Recorded Not on file documented as of this encounter Progress Notes Interface, Manager Animal - 12/02/2010 7:33 PM CDT Discharge Summary - Reason for Discharge Discharge from facility - Progress toward Goals partially met achieving 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
--- OUTSIDE RECORDS SUMMARY | 2021-11-27 14:27 | XMS_ITS | Encounter Summary ---
:1950 Author Organization [place] Address [address] [facility] [place] [address] Care Team Providers Name Role Phone Idalmis Sloan Primary Care Provider Encounter Details Date Type Department Care Team Description 07/20/2014 Therapy Visit [facility] Cherelle Santana Midli ne low back Rehabilitation Services PT pain with [place] [facility] ATHLETIC right- sided sciatica Care Center MEDICINE (Primary Dx) [address] [place] [address] [place], [place] [phone] [address] Social History Tobacco Use Types Packs/Day [...] pain throughout movement Rotation: Left: Right: Side [place]: Left: Right: Strength: Abdominals 1/5 Lumbar Myotomes: [...] for this information) Short term and terminal operator goals: (See Goal Flow Sheet for [...] Name Priority Date/Time Associated Diagnosis Comme nts [facility] THERAPEUTIC Routine 07/25/2014 12:32 PM Midline Low Back P ain ACTIVITIES CDT With Right-Sided Sciatica [facility] THERAPEUTIC Routine 07/25/2014 12:32 PM Midline low back p ain EXERCISES CDT with right-sided sciatica documented in this encounter Visit Diagnoses Diagnosis Midline low back pain with right-sided s ciatica - Primary documented in this encounter Care Teams Time Analysis Clerk Relationship Specialty Start Date End Date Idalmis Sloan PCP - General Family Practice 11/04/13 documented as of this encounter
--- OUTSIDE RECORDS SUMMARY | 2021-11-27 14:27 | XMS_ITS | Encounter Summary ---
:1950 Author Organization [place] Address [address] [place] [address]. [place] [address] Care Team Providers Name Role Phone Idalmis Sloan Primary Care Provider Reason for Visit [facility] Physical Therapy (Routine) - Denied Specialty Diagnoses / Procedures Referred By Contact Refer red To Contact Physical Therapy Diagnoses >4 s/p L rot cuff / mehdi lorenzana @ ortho / BCBS 30 visits per year Mehdi Gaffney MD Judd, Laurie, PT Procedures EXTREMITY INITIAL ORTHOPAEDIC AND K[facility]BER [facility] [address] [place] [address] [place] [address] [place] [address] Fax: Referral ID Status Reason Start Date Expiration Date Visits V isits Requested Authorized KIMBER/WC/PT/L Denied 06/11/2015 06/10/2016 14 0 SHLDR POST [id number] Encounter Details Date Type Department Care Team Description 08/07/2015 Therapy Visit [facility] Artie, Sprain of left rotator cuff capsule, subsequent encounter (Primary Dx); Rehabilitation Services CORRINA Melissa Otnatacha r postprocedural status(V45.89) [facility] [address] [facility] [address] [place] [address] Social History Tobacco Use Types [...] cuff capsule, subsequent encounter Other postprocedural status(V45.89) [facility] HOT OR COLD PACKS Routine 08/09/2015 [...] status documented in this encounter Care Teams Core Assembly Supervisor Relationship Specialty Start Date End Date Idalmis lSoan PCP - General Family Practice 11/04/13 documented as of this encounter
--- OUTSIDE RECORDS SUMMARY | 2021-11-27 14:27 | XMS_ITS | Encounter Summary ---
:1950 Author Organization [place] Address [facility] [place] [address] Care Team Providers Name Role Phone Idalmis Sloan Primary Care Provider Encounter Details Date Type Department Care Team Description 07/25/2014 Therapy Visit [facility] Belén Alva, Midline low back pain Rehabilitation Services BUDDER with right-sided [place] [facility] sc [place] (Primary Dx) Center [address] [facility] [address] [place] [address] Social History Tobacco Use Types [...] Primary documented in this encounter Care Teams Motion Designer Relationship Specialty Start Date End Date Idalmis Sloan PCP - General Family Practice 11/04/13 documented as of this encounter
--- OUTSIDE RECORDS SUMMARY | 2021-11-27 14:27 | XMS_ITS | Encounter Summary ---
:1950 Author Organization [place] Address [facility] [place] [address] Care Team Providers Name Role Phone Idalmis Sloan Primary Care Provider Reason for Visit KIMBER Physical Therapy (Routine) - Denied Specialty Diagnoses / Procedures Referred By Contact Refer red To Contact Physical Therapy Diagnoses >4 s/p L rot cuff / mehdi lorenzana @ ortho / BCBS 30 visits per year Mehdi Gaffney MD Judd, Laurie, PT Procedures EXTREMITY INITIAL ORTHOPAEDIC AND K[facility]BER [facility] [id number] [place] [address] [address] [facility] [address] [place] [address] [place] [address] Fax: Referral ID Status Reason Start Date Expiration Date Visits V isits Requested Authorized KIMBER/WC/PT/L Denied 06/11/2015 06/10/2016 14 0 SHLDR POST [id number] Encounter Details Date Type Department Care Team Description 08/09/2015 Therapy Visit [facility] [place] Wheeler, PT Sprain of left rotator cuff capsule, sub sequent encounter (Primary Dx); Rehabilitation [facility] Other postprocedural status(V45.89) Services [place] [id number] [place] [address] Specialty Care [place] [address] [address] [place], [place] [address] [address] [place] [address] Social History Tobacco Use Types Packs/Day Years Used Date Never Assessed Sex Assigned at Date Recorded Not on file documented as of this encounter Plan of Treatment Not on filedocumented as of this encounter Procedures Procedure Name Priority Date/Time Associated Diagnosis Comme nts [facility] NEUROMUSCULAR Routine 08/10/2015 10:23 AM Sprain of left r otator RE-EDUCATION CDT cuff capsule, subsequent encounter Other postprocedural status(V45.89) [facility] THERAPEUTIC Routine 08/10/2015 10:23 AM Sprain of left rot ator EXERCISES CDT cuff capsule, subsequent encounter Other postprocedural status(V45.89) documented in this encounter Visit Diagnoses Diagnosis Sprain of left rotator cuff capsule, sub sequent encounter - Primary Other postprocedural status(V45.89) Other postprocedural status documented in this encounter Care Teams Chisel Grinder Relationship Specialty Start Date End Date Idalmis Sloan PCP - General Family Practice 11/04/13 documented as of this encounter
--- OUTSIDE RECORDS SUMMARY | 2021-11-27 14:27 | XMS_ITS | Encounter Summary ---
:1950 Author Organization [place] Address [address] [place] [address] Care Team Providers Name Role Phone Idalmis Sloan Primary Care Provider Encounter Details Date Type Department Care Team Description 11/30/2015 Therapy Visit [facility] [place] Saeed PT Sprain of left rotator cuff capsule, sub sequent encounter (Primary Dx); Rehabilitation [facility] Other postprocedural status(V45.89) Services [address] Specialty Care Allen guzman DR [facility] [address] [address] [place], [place] [address] [address] [place] [address] [phone] Social History Tobacco Use Types Packs/Day Years Used Date Never Assessed Sex Assigned at Date Recorded Not on file documented as of this encounter Plan of Treatment Not on filedocumented as of this encounter Procedures Procedure Name Priority Date/Time Associated Diagnosis Comme nts [facility] NEUROMUSCULAR Routine 12/04/2015 1:24 PM Sprain of left RE-EDUCATION CDT rotator cuff capsule, subsequent encounter [facility] THERAPEUTIC EXERCISES Routine 12/04/2015 1:24 PM Sprain of left CDT rotator cuff capsule, subsequent encounter documented in this encounter Visit Diagnoses Diagnosis Sprain of left rotator cuff capsule, sub sequent encounter - Primary Other postprocedural status(V45.89) Other postprocedural status documented in this encounter Care Teams Bottle Feeder Relationship Specialty Start Date End Date Idalmis Sloan PCP - General Family Practice 11/04/13 documented as of this encounter
--- OUTSIDE RECORDS SUMMARY | 2021-11-27 14:27 | XMS_ITS | Encounter Summary ---
:1950 Author Organization [place] Address [address] [place] [address] Care Team Providers Name Role Phone Idalmis Sloan Primary Care Provider Encounter Details Date Type Department Care Team Description 11/22/2015 Therapy Visit [facility] Sandra Shelton, Sprain of left rotator cuff capsule, subsequent encounter (Primary Dx); Rehabilitation [facility] Other postprocedural status(V45.89) Services [facility] Specialty Care [facility] [id number] [place] [id number] [place] [address] [address] [place] [address] [phone] Social History Tobacco Use Types Packs/Day Years Used Date Never Assessed Sex Assigned at Date Recorded Not on file documented as of this encounter Plan of Treatment Not on filedocumented as of this encounter Procedures Procedure Name Priority Date/Time Associated Diagnosis Comme nts [facility] NEUROMUSCULAR Routine 11/22/2015 4:54 PM Sprain of left ro tator RE-EDUCATION CDT cuff capsule, subsequent encounter Other postprocedural status(V45.89) [facility] THERAPEUTIC Routine 11/22/2015 4:54 PM Sprain of left rota tor EXERCISES CDT cuff capsule, subsequent encounter Other postprocedural status(V45.89) [facility] HOT OR COLD PACKS Routine 11/22/2015 4:54 PM Sprain of lef t rotator THERAPY CDT cuff capsule, subsequent encounter Other postprocedural status(V45.89) documented in this encounter Visit Diagnoses Diagnosis Sprain of left rotator cuff capsule, sub sequent encounter - Primary Other postprocedural status(V45.89) Other postprocedural status documented in this encounter Care Teams Yard General Car Supervisor Relationship Specialty Start Date End Date Idalmis Sloan PCP - General Family Practice 11/04/13 documented as of this encounter
--- OUTSIDE RECORDS SUMMARY | 2021-11-27 14:27 | XMS_ITS | Encounter Summary ---
:1950 Author Organization [place] Address [address] [place] [address]. 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
--- OUTSIDE RECORDS SUMMARY | 2021-11-27 14:27 | XMS_ITS | Encounter Summary ---
:1950 Author Organization [place] Address [facility] [place] [address] Care Team Providers Name Role Phone Nathalia Vijaya Primary Care Provider Encounter Details Date Type Department Care Team Description 11/15/2014 Therapy Visit [facility] Belén Alva Left sh ouldnazario pain Rehabilitation Services SKILLS AUDITOR (Apoorva womack Dx) [facility] [address] [facility] [address] [place] [address] Social History Tobacco Use Types [...] region documented in this encounter Care Teams Negative Stripper Relationship Specialty Start Date End Date Idalmis Sloan PCP - General Family Practice 11/04/13 documented as of this encounter
--- OUTSIDE RECORDS SUMMARY | 2021-11-27 14:27 | XMS_ITS | Encounter Summary ---
:1950 Author Organization [place] Address [address] [facility] [place] [address] Care Team Providers Name Role Phone Idalmis Sloan Primary Care Provider Encounter Details Date Type Department Care Team Description 11/22/2014 Therapy Visit [facility] Belén Alva Left dontrell pain Rehabilitation Services ASSOCIATE SPA DIRECTOR (Apoorva womack Dx) [facility] [address] [facility] [address] [place], [place] [address] Social History Tobacco Use Types Packs/Day Years [...] and time spent performing 1:1 timed codes. TUFTER documented in this encounter Miscellaneous Notes Addendum Note - Micki Chang, PT - 01/30/2015 3:46 PM PAD TUFTER Addended by: MICKI CHANG on: 01/30/2015 03:46 PM Modules accepted: Orders TUFTER documented in this encounter Plan of Treatment [...] region documented in this encounter Care Teams Degreaser Relationship Specialty Start Date End Date Idalmis Sloan PCP - General Family Practice 11/04/13 documented as of this encounter
--- OUTSIDE RECORDS SUMMARY | 2021-11-27 14:27 | XMS_ITS | Encounter Summary ---
:1950 Author Organization [facility] Address [address] [place] [address]. [place] [address] Care Team Providers Name Role Phone Unavailable [...] Waleska Alcaraz - 03/21/2012 7:37 PM CST [facility] Triage Call Report Patient Name: Krys Mosher Call Date & Time: 03/21/2012 11:00:19AM Patient PCP Name: VijayaKasey Sloan MRN: Patient Address: [address] [address] Patient Date of : 1950 Age: 61 yr. Patient Gender: Female Customer Solutions Supervisor Name: Idalmis Bolaños Presenting Problem: Krys has [...] Procedure Note: .Other right foot surgery [address] documented in this encounter Plan of Treatment Not on filedocumented as of this encounter Visit Diagnoses Not on filedocumented in this encounter
--- OUTSIDE RECORDS SUMMARY | 2021-11-27 14:27 | XMS_ITS | Encounter Summary ---
:1950 Author Organization [place] Address [address] [facility] [place] [address] Care Team Providers Name Role Phone Idalmis Sloan Primary Care Provider Reason for Visit Reason Comments Urgent Care Cough cough and sinus pressure, tr eated for bronchitis Encounter Details Date Type Department Care Team Description 04/05/2017 Office Visit [facility] Laith Oliver Acute maxillary Urgent Care Lacy Craig MD sinusitis, recurrence [address] not specified (Primary [facility], [place] [address] Dx) [address] Social History Tobacco Use Types Packs/Day Years Used Date Never Smoker Smokeless Tobacco: Never Used Sex Assigned at Date Recorded Not on file documented as of this encounter Last Filed Vital Signs Vital Sign Reading Time Taken Comments Blood Pressure 136/78 04/05/2017 3:01 PM FIELD OPERATIONS SUPERVISOR Pulse 76 04/05/2017 3:01 PM FIELD OPERATIONS SUPERVISOR Temperature 36.9 ??C (98.5 ??F) 04/05/2017 3:01 PM FIELD OPERATIONS SUPERVISOR Respiratory Rate 18 04/05/2017 3:01 PM FIELD OPERATIONS SUPERVISOR Oxygen Saturation 96% 04/05/2017 3:01 PM FIELD OPERATIONS SUPERVISOR Inhaled Oxygen Concentration - - Weight 65.8 kg (145 lb) 04/05/2017 3:01 PM FIELD OPERATIONS SUPERVISOR Height - - Body Mass Index - - documented in this encounter Progress Notes Laith lOiver MD - 04/05/2017 2:45 PM CST Pt [...] if getting worse . Laith Oliver MD D OPERATIONS SUPERVISOR documented in this encounter Nursing Notes Ana [...] to calculate BMI. Medication Reconciliation: ronny Ny TORCH CUTTER D OPERATIONS SUPERVISOR documented in this encounter Plan of Treatment Not on filedocumented as of this encounter Visit Diagnoses Diagnosis Acute maxillary sinusitis, recurrence no t specified - Primary documented in this encounter Care Teams It Application Architect Relationship Specialty Start Date End Date Idalmis Sloan PCP - General Family Practice 11/04/13 documented as of this encounter
--- OUTSIDE RECORDS SUMMARY | 2021-11-27 14:27 | XMS_ITS | Encounter Summary ---
:1950 Author Organization [place] Address [facility] [place] [address] Care Team Providers Name Role Phone Idalmis Sloan Primary Care Provider Encounter Details Date Type Department Care Team Description 11/16/2015 Therapy Visit [facility] [place] Saeed, PT Cervical radiculitis (Primary Dx); Rehabilitation [facility] Sprain of left rotator cuff capsule, sub sequent encounter; Services [address] Other postprocedural status(V45.89) Specialty Care Allen guzman DR [facility] [address] [address] [place], [place] [address] [address] [place] [address] [phone] Social History Tobacco Use Types Packs/Day Years Used Date Never Assessed Sex Assigned at Date Recorded Not on file documented as of this encounter Plan of Treatment Not on filedocumented as of this encounter Procedures Procedure Name Priority Date/Time Associated Diagnosis Comme [facility] THERAPEUTIC Routine 11/19/2015 7:32 AM Cervical radi culitis EXERCISES CDT Sprain of left rotator cuff capsule, subsequent encounter Other postprocedural status(V45.89) documented in this encounter Visit Diagnoses Diagnosis Cervical radiculitis - Primary Brachial neuritis or radiculitis nos Sprain of left rotator cuff capsule, sub sequent encounter Other postprocedural status(V45.89) Other postprocedural status documented in this encounter Care Teams Aircraft Manager Relationship Specialty Start Date End Date Idalmis Sloan PCP - General Family Practice 11/04/13 documented as of this encounter
--- OUTSIDE RECORDS SUMMARY | 2021-11-27 14:28 | XMS_ITS | Encounter Summary ---
:1950 Author Organization [place] Address [facility] [place] [address] Care Team Providers Name Role Phone Unavailable Primary Care Provider Unavailable Encounter Details Date Type Department Care Team Description 08/23/2010 Hospital Laboratory [facility] Results Carlos simmons PA-C [facility] [address] [facility] [address] [place] [address] (Wo rk) Social History Tobacco Use Types [...] Signature Hemoglobin 10.4 (L) 11.7 - 15.7 [place] g/dL [facility] Specimen Anatomical Collection Method Collection Time Receive d Time (Source) Location / / Volume Laterality 08/23/2010 7:30 AM 1 7:38 CDT AM CDT Maame Chaparro PA-C LAB - BLOOD ORDERABLES Performing Organization Address City/State/ZIP Code Phon e Number [facility] [address] [place], [place] [address] [facility] (ABNORMAL) Basic metabolic panel (08/23/2010 7:30 AM CDT) P athologist Signature Sodium 138 133 - 144 [place] mmol/L [facility] Potassium 4.1 3.4 - 5.3 [place] mmol/L [facility] Chloride 108 94 - 109 [place] mmol/L [facility] Carbon Dioxide 26 20 - 32 [place] mmol/L [facility] Anion Gap 4 (L) 6 - 17 [place] mmol/L [facility] Glucose 101 (H) 60 - 99 [place] mg/dL [facility] Urea Nitrogen 7 7 - 30 [place] mg/dL [facility] Creatinine 0.69 0.52 - [facility] 1.04 mg/dL [facility] GFR Estimate 87 >60 [place] mL/min/1.[address] LAB GFR Estimate If >90 >60 [place] Black mL/min/1.[address] [place] [address] LAB Calcium 8.3 (L) 8.5 - 10.4 [place] mg/dL [facility] Specimen Anatomical Collection Method Collection Time Receive d Time (Source) Location / / Volume Laterality 08/23/2010 7:30 AM 1 7:38 CDT AM CDT Maame Chaparro PA-C LAB - BLOOD ORDERABLES Performing Organization Address City/State/ZIP Code Phon e Number M [facility] [address] [place], [place] [address] [facility] documented in this encounter Visit Diagnoses Not on filedocumented in this encounter
--- OUTSIDE RECORDS SUMMARY | 2021-11-27 14:28 | XMS_ITS | Encounter Summary ---
:1950 Author Organization [place] Address [facility] [place] [address] Care Team Providers Name Role Phone Unavailable Primary Care Provider Unavailable Encounter Details Date Type Department Care Team Description 08/21/2010 Consultation [facility] Idalmis Schwab, Hospital Results RN [facility] [address] [place], [place] [address] (Wo rk) Social History [...] same nurse practitioner, Sherry Arambula of the [facility]. It does not appear [...] a pain clinic and that would be [facility] that is located in [place]. 3. Esophageal reflux. 4. Tobacco use. 5. [...] 100 mg b.i.d. She is on a CORKING MACHINE OPERATOR Dilaudid. She can have 0.1-0.2 q.6minutes with a continuous rate of 0.1-0.2 for an hour limit of 1.5. She has not taken any other medswhile here. REVIEW OF SYSTEMS: Please see the [facility] adult patient profile done by Amanda Cardoso [...] but does have pain meds ordered per CORKING MACHINE OPERATOR. Patient having somatosensory-type of inflammatory pain postop. PLAN: 1. We will leave CORKING MACHINE OPERATOR as it was written for. Patient is [...] CARROLL Name: KRYS MOSHER MRN: [id number] Account: [id number] : 1950 Consult Date: 08/21/2010 Document: [id number] cc: SIAMA MCHUGH PA-C documented in this encounter Plan of Treatment Not on filedocumented as of this encounter Visit Diagnoses Not on filedocumented in this encounter
--- OUTSIDE RECORDS SUMMARY | 2021-11-27 14:28 | XMS_ITS | Encounter Summary ---
:1950 Author Organization [place] Address [address] [place] [address] Care Team Providers Name Role Phone Unavailable Primary Care Provider Unavailable Encounter Details Date Type Department Care Team Description 08/21/[address] [facility] Jose Comer (Insurance Application Investigator) [facility] MD Dipti Results [facility] [address] [place] [address] Social History Tobacco Use Types [...] of pedicle screw mary fixation, L3-L4 (CD). 8.Elk of autogenous bone marrow, right ilium. SURGEON: Jose Comer MD ARCADE GAMES MECHANIC: Bethany Chaparro PA-C, INDICATIONS FOR PROCEDURE: Krys [...] of L2 and L4 with a #1 Kevil, and then using a 4 mm Kerrison [...] of L2 and L4, using a #1 Kevil, and then with the help of a [...] The set nuts were torqued to the air cargo ground crew supervisor's specifications with a torque wrench. The wound [...] in good condition. Revised: , , Document: [id number], EM#[id number] Electronically signed on 08/22/2010 06:48 by JOSE COMER MD MT: [id number] Name: KRYS MOSHER Account: [id number] : 1950 Procedure Date: 08/21/2010 Document: [id number] cc: Idalmis Sloan MD documented in this encounter Plan of Treatment Not on filedocumented as of this encounter Visit Diagnoses Not on filedocumented in this encounter
--- OUTSIDE RECORDS SUMMARY | 2021-11-27 14:28 | XMS_ITS | Encounter Summary ---
:1950 Author Organization [place] Address [facility] [place] [address] Care Team Providers Name Role Phone Unavailable Primary Care Provider Unavailable Encounter Details Date Type Department Care Team Description 08/22/2010 Historic Notes INTERFACED REPORT Interface, Transcript on, Social History Tobacco Use Types Packs/Day Years Used Date Never Assessed Sex Assigned at Date Recorded Not on file documented as of this encounter Progress Notes Interface, Private Duty Nurse - 12/02/2010 7:39 PM CDT Patient Status - Physical status Stable (s/s of potential complications absent or manageable) - Psychosocial status Stable Discharge Planning - Discharge From: [facility] - Patient Care Unit: ms 2 - [...] Materials, and Instructions, Follow Up Care Interface, Private Duty Nurse - 12/02/2010 7:39 PM CDT General Information [...] Mobility: Rolling/Turning - Level of stand-by assist [place]: Bed Mobility: Scooting/Bridging - Level of stand-by assist [place]: Bed Mobility: Sit to Supine - Level of stand-by assist [place]: Bed Mobility: Supine to Sit - Level of stand-by assist [place]: Bed Mobility Analysis - Impairments pain Contributing to Impaired Bed Mobility: Transfer: Sit to Stand - Level of CGA [place]: - Physical verbal cues; supervision Assist/Nonphysical Assist: Transfer: Stand to Sit - Level of stand-by assist [place]: Gait Skills - Level of minimum assist (75% patients effort) [place]: - Physical verbal cues Assist/Nonphysical Assist: - Assistive Device: FIELD COUNSEL and IV pole - Gait Distance: 20' to door and back Gait Analysis - Gait Pattern Used: swing-to gait - Gait Deviations decreased jeffery; decreased step length Noted: - Impairments pain Contributing to Gait Deviations: Balance Skills Assessment - Sitting Balance: independent Static: - Sitting Balance: independent Dynamic: - Udq-gn-Whrjo Balance: minimum assist (75% patients effort) - [...] - Anticipated Equipment elastic laces and a television installer helper at Discharge: - Risks and Benefits of [...] Assessment, Sensation, Treatment Plan, Clinical Impression Interface, Private Duty Nurse - 12/02/2010 7:38 PM CDT SH - Responded to referral per pt. request for emotional support. Pt. is recovering from back surgery, and she says it went very well, expresses gratitude for Dr. Comer's skill and the quality of care she has received from nursing staff. 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 Pt. is originally from [place], [place] where she was a [facility], has not found a new aisha home since moving to [place], [place] but says she attends chapel at [facility] occasionally. Pt.'s family have not been able to visit due to a wedding in [place], but said her should be back in time for discharge. Offered active listening, emotional support, prayed for comfort and healing and gave thanks for successful surgery. Will follow up if needs arise. [Signature] Author: MARY ELIAS (Logistics And Planning Manager Nursing Student) [Signed 10:25] documented in this encounter Plan of Treatment Not on filedocumented as of this encounter Visit Diagnoses Not on filedocumented in this encounter
--- OUTSIDE RECORDS SUMMARY | 2021-11-27 14:28 | XMS_ITS | Encounter Summary ---
:1950 Author Organization [place] Address [facility] [place] [address] Care Team Providers Name Role Phone Unavailable Primary Care Provider Unavailable Encounter Details Date Type Department Care Team Description 08/23/2010 Historic Notes INTERFACED REPORT Israel Schwab RN [facility] [address] [place], [place] [address] (Wo rk) Social History [...] been Management: getting the 50mg dose) Dilaudid RIPSHEAR OPERATOR 0.1-0.2 Q 6 min CR 0.1-0.2 mg [...] and coordination of care Signatures ISRAEL SCHWAB (CASINO FLOORPERSON)[Signed 14:10] Authored: Interval History/Chief Complaint, Review of Systems, Physical Exam, Vital Signs/Labs/Imaging/Culture Review, Pain Score and Medications, Assessment and Plan documented in this encounter Plan of Treatment Not on filedocumented as of this encounter Visit Diagnoses Not on filedocumented in this encounter
--- OUTSIDE RECORDS SUMMARY | 2021-11-27 14:28 | XMS_ITS | Encounter Summary ---
:1950 Author Organization [place] Address [facility] [address] Care Team Providers Name Role Phone Unavailable Primary Care Provider Unavailable Encounter Details Date Type Department Care Team Description 08/16/2010 Historic Notes INTERFACED REPORT Interface, Transcript on, Social History Tobacco Use Types Packs/Day Years Used Date Never Assessed Sex Assigned at Date Recorded Not on file documented as of this encounter Progress Notes Interface, Chief Marketing Officer - 12/02/2010 7:47 PM CDT General Information - How to be Addressed [place] - Source of Information patient - Patient Belongings clothing; glasses; walker and cane - sporting goods salesperson #1: Sachin - Relationship to patient #1: - Phone 1: [phone] - sporting goods salesperson #2: Sabiha Buregss - Relationship to sister patient #2: - Phone 1: [phone] - Patient's spoken language; Maori or Bilingual communication style Advance Directive - [...] abuse, self neglect, lack of adequate food, usp, medical care, or financial exploitation)? Values/Beliefs/Spiritual Care - C: Community: In hospital pricing coordinator support of your spiritual health, is there someone we may contact for you? (identify all that apply) Learning Assessment - Factors Influencing no factors identified Readiness to Learn - Factors that Impact none Ability to Learn - Learning Preferences skill demonstration; written material - Cultural none Considerations - Developmental none Considerations - Gnosticist none Considerations Mutuality/Individual Preferences - What information none would help us give you more personalized care? Signatures KAYLEIGH MAX (RN)[Signed 15:03] Authored: General Information, Skin Inspection, Coping Stress/Abuse Rosario Prado (Biofuels Plant Operations Engineer)[Signed 17:38] Authored: Advance Directive JOSE BROWN (RN)[Signed [...]
--- OUTSIDE RECORDS SUMMARY | 2021-11-27 14:28 | XMS_ITS | Encounter Summary ---
:1950 Author Organization [place] Address [facility] [place] [address] Care Team Providers Name Role Phone Unavailable Primary Care Provider Unavailable Encounter Details Date Type Department Care Team Description 08/21/2010 Hospital Laboratory [facility] Results MD Dipti [facility] [address] [place] [address] (Wo rk) Social History Tobacco [...] At Patho logist Time Signature ABO A [facility] RH(D) Pos [facility] Antibody Neg [facility] LAB Specimen 08/24/2010 [facility] LAB Specimen Anatomical Collection Method Collection Time Receive d Time (Source) Location / / Volume Laterality 08/21/2010 6:15 AM 1 6:17 CDT AM CDT Jose Comer MD LAB - BLOOD BANK TEST ORDER Performing Organization Address City/State/ZIP Code Phon e Number M [facility] [address] [place], [place] [address] [facility] documented in this encounter Visit Diagnoses Not on filedocumented in this encounter
--- OUTSIDE RECORDS SUMMARY | 2021-11-27 14:28 | XMS_ITS | Encounter Summary ---
:1950 Author Organization [place] Address [address] [facility] [place] [address] Care Team Providers Name Role Phone Unavailable Primary Care Provider Unavailable Encounter Details Date Type Department Care Team Description 08/25/2010 Discharge Summary [facility] Krysta (Paper Supervisor) [facility] VIELKA [facility] [address] [facility] [address] [place], [place] [id number] Social History Tobacco Use Types Packs/Day Years [...] EM#[id number] Name: KRYS MOSHER MRN: [id number] Account: [id number] : 1950 Admit Date: Discharge Date: 08/25/2010 Document: [id number] documented in this encounter Plan of Treatment Not on filedocumented as of this encounter Visit Diagnoses Not on filedocumented in this encounter
--- OUTSIDE RECORDS SUMMARY | 2021-11-27 14:28 | XMS_ITS | Encounter Summary ---
:1950 Author Organization [place] Address [facility] [place] [address] Care Team Providers Name Role Phone Unavailable Primary Care Provider Unavailable Encounter Details Date Type Department Care Team Description 08/23/2010 Historic Notes INTERFACED REPORT Interface, Transcript on, Social History Tobacco Use Types Packs/Day Years Used Date Never Assessed Sex Assigned at Date Recorded Not on file documented as of this encounter Progress Notes Interface, Castings Trimmer - 12/02/2010 7:36 PM CDT General Information [...] Level of moderate assist (50% patients effort) [place]: - Physical 1 person assist Assist/Nonphysical Assist: Bed Mobility: Sit to Supine - Level of moderate assist (50% patients effort) [place]inkler: - Physical 1 person assist Assist/Nonphysical Assist: Bed Mobility: Supine to Sit - Level of moderate assist (50% patients effort) [place]inkler: - Physical 1 person assist Assist/Nonphysical Assist: Bed Mobility Analysis - Impairments pain; post surgical precautions; decreased Contributing to strength Impaired Bed Mobility: Transfer: Sit to Stand - Level of minimum assist (75% patients effort) Winkler: - Physical 1 person assist Assist/Nonphysical Assist: Transfer: Stand to Sit - Level of minimum assist (75% patients effort) Winkler: - Physical 1 person assist Assist/Nonphysical Assist: Transfer: Sit/Stand Safety Analysis - Impairments pain; post surgical precautions; decreased Contributing to strength Impaired Transfers: Lower Body Dressing - Level of maximum assist (25% patients effort) Winkler: - Physical 1 person assist Assist/Nonphysical Assist: [...] therapy goals): - Demonstrates need for PT; COLORIST DYER referral to another service: - Predicted Duration of 3-4 days Therapy: - Predicted Frequency daily of Therapy: - Discharge Rehabilitation facility; TCU versus home with Destination: assist pending progress - Anticipated Equipment Terra Cotta Setter; Dressing equipment at Discharge: - Risks and [...]
--- OUTSIDE RECORDS SUMMARY | 2021-11-27 14:28 | XMS_ITS | Encounter Summary ---
:1950 Author Organization [place] Address [address] [facility] [place] [address] Care Team Providers Name Role Phone Unavailable Primary Care Provider Unavailable Encounter Details Date Type Department Care Team Description 08/21/2010 Results Only [facility] Jose Comer, Hospital Results [facility] [address] [place] [address] (Wo rk) Social History Tobacco [...]
--- OUTSIDE RECORDS SUMMARY | 2021-11-27 14:28 | XMS_ITS | Encounter Summary ---
:1950 Author Organization [place] Address [address] [facility] [place] [address] Care Team Providers Name Role Phone Unavailable Primary Care Provider Unavailable Encounter Details Date Type Department Care Team Description 08/22/2010 Historic Notes INTERFACED REPORT Israel Schwab RN [facility] [address] [place], [place] [address] (Wo rk) Social History [...] was around 8/10. She feels that the STAVE BOLT EQUALIZER with the vistaril and tylenol are a [...] one 50 mg dose this AM) Dilaudid STAVE BOLT EQUALIZER 0.1-0.2 Q 6 min with CR of [...] with current interventions. Plan: 1. Will keep STAVE BOLT EQUALIZER as it is, since she is doing [...] and coordination of care. Signatures ISRAEL SCHWAB (WASTE MANAGEMENT SPECIALIST)[Signed 09:46] Authored: Interval History/Chief Complaint, Review of Systems, Physical Exam, Vital Signs/Labs/Imaging/Culture Review, Pain Score and Medications, Assessment and Plan documented in this encounter Plan of Treatment Not on filedocumented as of this encounter Visit Diagnoses Not on filedocumented in this encounter
--- OUTSIDE RECORDS SUMMARY | 2021-11-27 14:28 | XMS_ITS | Encounter Summary ---
:1950 Author Organization [place] Address [facility] [place] [address] Care Team Providers Name Role Phone Unavailable Primary Care Provider Unavailable Encounter Details Date Type Department Care Team Description 08/22/2010 Hospital Laboratory [facility] Results Carlos simmons PA-C [facility] [address] [facility] [address] [place] [address] (Wo rk) Social History Tobacco Use Types [...] Signature Hemoglobin 10.4 (L) 11.7 - 15.7 [place] g/dL [facility] Specimen Anatomical Collection Method Collection Time Receive d Time (Source) Location / / Volume Laterality 08/22/2010 7:55 AM 7:58 CDT AM CDT Maame Chaparro PA-C LAB - BLOOD ORDERABLES Performing Organization Address City/State/ZIP Code Phon e Number [facility] [address] [place], [place] [address] [facility] (ABNORMAL) Basic metabolic panel (08/22/2010 7:55 AM CDT) P athologist Signature Sodium 138 133 - 144 [place] mmol/L [facility] Potassium 4.2 3.4 - 5.3 [place] mmol/L [facility] Chloride 107 94 - 109 [place] mmol/L [facility] Carbon Dioxide 24 20 - 32 [place] mmol/L [facility] Anion Gap 8 6 - 17 [place] mmol/L [facility] Glucose 112 (H) 60 - 99 [place] mg/dL [facility] Urea Nitrogen 10 7 - 30 [place] mg/dL [facility] LAB Creatinine 0.74 0.52 - [place] 1.04 mg/dL [facility] LAB GFR Estimate 80 >60 [place] mL/min/[address] [place] [address] LAB GFR Estimate If >90 >60 [place] Black mL/min/1.[address] [place] [address] LAB Calcium 7.7 (L) 8.5 - 10.4 [place] mg/dL [facility] LAB Specimen Anatomical Collection Method Collection Time Receive d Time (Source) Location / / Volume Laterality 08/22/2010 7:55 AM 1 7:58 CDT AM CDT Maame Chaparro PA-C LAB - BLOOD ORDERABLES Performing Organization Address City/State/ZIP Code Phon e Number M [facility] [address] [place], [place] [address] [facility] documented in this encounter Visit Diagnoses Not on filedocumented in this encounter
--- OUTSIDE RECORDS SUMMARY | 2021-11-27 14:29 | XMS_ITS ---
:1950 Author Care Team Providers Name Role Phone Ed Travis Primary Care Provider Unavailable Allergies Code Code System Name Reaction Severity Status Onset 316842 RxNorm Augmentin ? ? Active ? 7052 [...] ? Specific 1.025 1.005-1.030 Final [facility]: Complete [place] [address], [place] ? ? URINE ? Ph 5.5 5.0-7.5 Final [facility]: [address], [place] ? ? URINE ? Urine-colo yellow yellow Final [facility]: r [address], [place] ? ? URINE ? Appearance clear clear Final [facility]: [address], [place] ? ? URINE ? WBC negative negative Final [facility]: Esterase [address], [place] ? ? URINE ABNOR Protein 1+ negative/tra Final [facility]: MAL ce [address], [place] ? ? URINE ? Glucose negative negative Final [facility] or[facility]: [address], [place] ? ? URINE ABNOR Ketones trace negative Final [facility]: MAL [address], [place] ? ? URINE ? Occult negative negative Final [facility]: Blood [address], [place] ? ? URINE ? Bilirubin negative negative Final [facility]: [address], [place] ? ? URINE ? Urobilinog 0.2 0.2-1.0 Final [facility]: en,semi-qn mg/dL mg/dL [address], [place] ? ? URINE ? Nitrite, negative negative Final Lab [place]: Urine [address], [place] ? ? URINE ? Microscopi see ? Final [facility]: c below: [address], [place] ? ? URINE ? Wbc 0-5 /hpf 0 - 5 /hpf Final [facility]: [address], [place] ? ? URINE ? Rbc 0-2 /hpf 0 - 2 /hpf Final [facility]: [address], [place] ? ? URINE ? Epithelial 0-10 0 - 10 /hpf Final [facility]: Cells (Non /hpf [address], [place] ? ? URINE ? Epithelial rn child ? Cancelle Lab le[facility]: Cells d [address], [place] ? ? URINE ? Casts rn child ? Cancelle [facility]: d [address], [place] ? ? URINE ? Cast Type rn child ? Cancelle [facility]: d [address], [place] ? ? URINE ABNOR Crystals present n/a Final [facility]: MAL [address], [place] ? ? URINE ? Crystal amorphou n/a Final [facility]: Type s [address], [place] ? ? URINE ? Mucus present not estab. Final [facility]: Threads [address], [place] ? ? URINE ? Bacteria few none Final [facility] : seen/few [address], [place] ? ? URINE ? Yeast rn child ? Cancelle [facility]: d [address], [place] ? ? URINE ? Trichomona rn child ? Cancelle Lab [facility]: s d [address], [place] ? ? URINE ? Comment rn child ? Cancelle [facility]: d [address], [place] ? ? URINE ? Microscopi rn child ? Cancelle Lab le[facility]: c d [address], [place] 07/16/2020 Culture, URINE ABNOR Urine final ? Final [facility] Urine MAL Culture, report ([place] Routine ): [address] [facility] [place] ? ? URINE ABNOR Result 1 comment ? Final [facility] p MAL ([place] ): [address] [facility] [place] ? ? URINE ABNOR Result 2 serratia ? Final [facility] MAL maryce ([place] ns ): [address] [facility] [place] ? ? URINE ? Antimicrob comment ? Final Lab[facility] orp ial ([place] Susceptibil ): 14 47 [address] [facility] [place] Past Encounters 07/16/2020 Cellulitis of Toe of Right Foot; Urinary Tract Infectious Disease [facility]: [address] [facility], [address], [place] [address], Ph. Social History Tobacco Smoking Status Former Smoker Vaccine List None recorded. Plan of Care Reminders Provider Appointments None recorded. ? ? Lab None recorded. ? ? Referral None recorded. ? ? Procedures None recorded. ? ? Surgeries None recorded. ? ? Imaging None recorded. ? ? Vitals Weight BMI Blood Pressure 160/91 mm[Hg]
== END 2021-11-27 14:22 | disposition home or self-care (01) ==
LOC: WOUND 14:22
PROVIDERS: Visit Provider Surgery
DX: L97.422 Non-pressure chronic ulcer of left heel and midfoot with fat layer exposed (principal); I73.9 Peripheral vascular disease, unspecified
CPT/HCPCS: 99212

== ENCOUNTER 2021-12-11 15:28 | Outpatient (CLI) | payer MEDICARE, SELFPAY ==
--- OUTSIDE RECORDS SUMMARY | 2021-12-11 15:30 | XMS_ITS | Encounter Summary ---
:1950 Author Organization [facility] Address [address] [place] [address] Care Team Providers Name Role Phone Unavailable Primary Care Provider Unavailable Reason for Visit Reason Comments Appt. Scheduled Encounter Details Date Type Department Care Team Description 12/14/2012 Telephone [facility] 3800 Megan Son MD Appt. Scheduled Dermatology [address] [place] [address] [place] [address] [phone] Social History Tobacco Use Types Packs/Day Years [...] her husbands schedule first. She will call [phone] to schedule this appt. Megan Son MD [...]
--- OUTSIDE RECORDS SUMMARY | 2021-12-11 15:30 | XMS_ITS | Encounter Summary ---
:1950 Author Organization [facility] Address [address] [place] [address] Care Team Providers Name Role Phone Unavailable Primary Care Provider Unavailable Reason for Visit Reason Comments [facility] Encounter Details Date Type Department Care Team Description 11/02/2012 Procedure Visit [place] [facility] Nurse, Bravo Chao ECZEMA [address] [place] [address] Social History Tobacco Use Types [...]
--- OUTSIDE RECORDS SUMMARY | 2021-12-11 15:30 | XMS_ITS | Encounter Summary ---
:[address] [address] Address [address] [place] [address] Care Team Providers Name Role Phone Unavailable Primary Care Provider Unavailable Reason for Visit Reason Comments Lab Questions Encounter Details Date Type Department Care Team Description 09/24/2012 Telephone [facility] 3800 Megan Son MD Lab Questions Dermatology [address] [facility] [place] [address] [place], [place] [address] [phone] Social History Tobacco Use Types Packs/Day Years [...]
--- OUTSIDE RECORDS SUMMARY | 2021-12-11 15:30 | XMS_ITS | Encounter Summary ---
:1950 Author Organization [facility] Address [address] [place] [address] Care Team Providers Name Role Phone Unavailable Primary Care Provider Unavailable Reason for Visit Reason Comments Fax LAB RESULTS Encounter Details Date Type Department Care Team Description 12/02/2017 Telephone [facility] 3800 Dustin Cagle MD Fax; LAB RESULTS Endocrinology [address] [place] [address] [place] [place] [phone] (Wo rk) Social History Tobacco Use Types Packs/Day Years Used Date Smoking Tobacco: Former Cigarettes 1 Smokeless Tobacco: Never Alcohol Use Standard Drinks/Week Comments Yes 0 (1 standard drink = 0.6 oz pure alcoho l) ocaasionally Sex Assigned at Date Recorded Not on file documented as of this encounter Nursing Notes Sunny Lopez RN - 12/04/2017 3:[address] Sloan office calling as they can not read labs that are elevated or low as they are yellowed andwhen faxed it shows up as black. Read her results she needed. Sunny Lopez, RN - 12/03/2017 2:[address] Sloan office calling, records just faxed to # noted below Kasey Mello RN - 12/02/2017 5:17 PM CDT Pt requesting lab results and recommendations from Dr. Cagle on 11/16/[address] Idalmis Sloan at [phone]. documented in this encounter Plan of Treatment Not on filedocumented as of this encounter Visit Diagnoses Not on filedocumented in this encounter
--- OUTSIDE RECORDS SUMMARY | 2021-12-11 15:30 | XMS_ITS | Encounter Summary ---
:1950 Author Organization [facility] Address [address] [place] [address] Care Team Providers Name Role Phone Unavailable Primary Care Provider Unavailable Reason for Visit Reason Comments Rash Encounter Details Date Type Department Care Team Description 09/20/2012 Telephone [facility] [facility] Whitten Rash [address] [facility] [place], [place] [address] [address] [place] [address] [phone] [place], [place] [address] (Wo rk) Social History Tobacco Use Types Packs/Day Years Used Date Smoking Tobacco: Never Assessed Sex Assigned at Date Recorded Not on file documented as of this encounter Nursing Notes Denise Mon - 09/21/2012 9:20 AM CDT LM to call [phone] to schedule an appointment. Denise Mon 9:18 [...]
--- OUTSIDE RECORDS SUMMARY | 2021-12-11 15:30 | XMS_ITS | Clinical Summary ---
:1950 Author Organization [facility] Address [address] [place] [address] Care Team Providers Name Role Phone Unavailable [...] for each transition of care or referral. 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
--- OUTSIDE RECORDS SUMMARY | 2021-12-11 15:30 | XMS_ITS | Encounter Summary ---
:1950 Author Organization [facility] Address [address] [place] [address] Care Team Providers Name Role Phone Unavailable Primary Care Provider Unavailable Reason for Referral Specialty Diagnoses / Procedures Referred By Contact Refer red To Contact Masood Wright, [facility] [address] [place] [address] Referral ID Status Reason Start Date Expiration Date Visits Requ ested Visits Authorized Reason for Visit Reason Comments Rash Encounter Details Date Type Department Care Team Description 09/22/2012 Initial Consult [facility] 3800 Megan Son MD Rash/skin eruption (Primary Dx); Dermatology [address] Rash and other nonspecific s kin eruption [address] [place] [phone] Social History Tobacco Use Types Packs/Day Years [...] whole body going on for4-5 weeks. Seen [facility] twice for this condition. Red bumps with itching. Tried Bactroban cream, OTCallergy medication, hydrocortisone, hydroxizine. The Bactroban seemed to help little but rash continues to spread. Was in patient hospital for back surgery and rash has been present since and does not believe she has had any new medications prior to the rash. Had biopsy at [facility] which she thought the results [...] 7 days. Take 30 minutes before first sonj-zxaiu-ybfrzadyql. Avoid lying down for 30 minutes. ??? [...] drawnalso discussed getting labs and slides from [facility] vs doing another biopsy today. Patientelected to have biopsy done today. release of information sent to [facility] today. After disc ussion, a punch biopsy [...] up visit in 2 weeks.------Notes Recorded by Mgean Son MD on 10/06/2012 at 8:25 AMCalled, [...] absence (rc 8-5) She may be reached @[phone]. Thank you. NICIAN TRAINEE documented in this encounter Plan of Treatment [...] Component Value Ref Test Analysis Performed At [facility] gist Range Method Time Signature Path: ? FINAL DERMATOPATHOLOGY REPO RT HP CONVERSION Pathology #: [id number] ? Date Obtained: 09/22/2012 ?Date Received: 09/22/2012 [...] absence (rc 8-5) She may be reached @[phone]. Thank you. Megan Son MD LAB_1 Performing Organization Address City/State/ZIP Code Phon e Number HP CONVERSION documented in this encounter Visit Diagnoses Diagnosis Rash/skin eruption - Primary Rash and other nonspecific skin eruption Rash and other nonspecific skin eruption documented in this encounter
--- OUTSIDE RECORDS SUMMARY | 2021-12-11 15:30 | XMS_ITS | Encounter Summary ---
:1950 Author Organization [facility] Address [address] [place] [address] Care Team Providers Name Role Phone Unavailable Primary Care Provider Unavailable Encounter Details Date Type Department Care Team Description 09/28/2012 Notes/Orders [facility] 3800 Megan Son MD Rash and other Dermatology [address] nonspecific skin [address] eruption (Primary Dx) [place] [address] [phone] Social History Tobacco Use Types Packs/Day Years Used Date Smoking Tobacco: Never Assessed Sex Assigned at Date Recorded Not on file documented as of this encounter Plan of Treatment Not on filedocumented as of this encounter Visit Diagnoses Diagnosis Rash and other nonspecific skin eruption - Primary documented in this encounter
--- OUTSIDE RECORDS SUMMARY | 2021-12-11 15:30 | XMS_ITS | Encounter Summary ---
:1950 Author Organization [facility] Address [address] [place] [address] Care Team Providers Name Role Phone Unavailable Primary Care Provider Unavailable Encounter Details Date Type Department Care Team Description 09/22/2012 Lab Visit [facility] [address] Rash/skin eruption [address] [place], [place] [phone] Social History Tobacco Use Types Packs/Day Years [...] am out of the office next week. IFIED MEDICINE AIDE Miscellaneous - 04/11/2016 5:07 AM CSTNotes Recorded [...] am out of the office next week. IFIED MEDICINE AIDE Miscellcarol - 04/11/2016 5:07 AM CSTNotes Recorded by Cehrelle Post RN on 09/28/2012 at 1:35 PMspoke [...] am out of the office next week. IFIED MEDICINE AIDE Miscellaneous - 04/11/2016 5:07 AM CSTNotes Recorded [...] am out of the office next week. [facility] - 04/11/2016 5:07 AM CSTNotes Recorded by [...] am out of the office next week. IFIED MEDICINE AIDE Miscellcarol - 04/11/2016 5:07 AM CSTNotes Recorded [...] am out of the office next week. IFIED MEDICINE AIDE Miscellaneous - 04/11/2016 5:07 AM CSTNotes Recorded [...] am out of the office next week. IFIED MEDICINE AIDE documented in this encounter Plan of Treatment [...] Results (ABNORMAL) Differential (09/22/2012 10:50 AM CDT) [facility] Method Time Signature Absolute 3.6 1.8 [...] - 09/22/2012 11:00 AM CDT Performed at [facility], [address] [place] [address] Transcriptions 04/11/2016 5:07 AM CSTNotes Recorded by [...] Megan Mcqueen MD LAB_1 Performing Organization Address City/[facility] Code Phon e Number HP [...] Megan Mcqueen MD LAB_1 Performing Organization Address City/[facility] Code Phon e Number HP [...] - 09/22/2012 11:23 AM CDT Performed at [facility], [address] [place] [address] Transcriptions 04/11/2016 5:07 AM CSTNotes Recorded by Cherelle Post RN on 09/28/2012 at 1:35 PMspoke with . put in lab for CBC for 2 weeks------Notes Recorded by hCerelle Post RN on 09/27/2012 at 8:34 AM [...] Panel(Hepatic Function Panel) (09/22/2012 10:50 AM CDT) [facility] Method Time Signature Alk Phos 94 [...] - 09/22/2012 11:23 AM CDT Performed at [facility], [address] [place] [address] Transcriptions 04/11/2016 5:07 AM CSTNotes Recorded by [...] - 09/22/2012 11:00 AM CDT Performed at [facility], [address] [place] [address] Transcriptions 04/11/2016 5:07 AM CSTNotes Recorded by [...]
--- OUTSIDE RECORDS SUMMARY | 2021-12-11 15:30 | XMS_ITS | Encounter Summary ---
:1950 Author Organization [facility] Address [address] [place] [address] Care Team Providers Name Role Phone Unavailable Primary Care Provider Unavailable Reason for Visit Reason Comments UPDATE Encounter Details Date Type Department Care Team Description 12/07/2017 Telephone [facility] 3800 Dustin Cagle MD UPDATE Endocrinology [address] [place] [phone] (Wo rk) Social History Tobacco Use Types [...]
--- OUTSIDE RECORDS SUMMARY | 2021-12-11 15:30 | XMS_ITS | Encounter Summary ---
:1950 Author [address] [facility] Address [address] [place] [address] Care Team Providers Name Role Phone Unavailable Primary Care Provider Unavailable Reason for Visit Reason Comments Other Encounter Details Date Type Department Care Team Description 11/20/2017 Telephone [facility] 3800 Dustin Cagle MD Other Endocrinology [address] [place] [phone] (Wo rk) Social History Tobacco Use Types [...]
--- OUTSIDE RECORDS SUMMARY | 2021-12-11 15:30 | XMS_ITS | Encounter Summary ---
:1950 Author Organization [facility] Address [address] [place] [address] Care Team Providers Name Role Phone Unavailable Primary Care Provider Unavailable Reason for Visit Reason Comments DERMATITIS Encounter Details Date Type Department Care Team Description 11/11/2012 Procedure Visit [facility] Nurse, Bravo Chao DERMATITIS [address] [place] [address] Social History Tobacco Use Types [...]
--- OUTSIDE RECORDS SUMMARY | 2021-12-11 15:30 | XMS_ITS | Encounter Summary ---
:[address] [facility] Address [address] [place] [address] Care Team Providers Name Role Phone Unavailable Primary Care Provider Unavailable Reason for Visit Reason Comments Follow-up Encounter Details Date Type Department Care Team Description 10/25/2012 Office Visit [facility] 3800 Megan Son MD Unspecified pruritic Dermatology [address] [place] disorder (Primary Dx) [address] [place] [phone] Social History Tobacco Use Types Packs/Day Years [...] Has had 2 biopsies ( one at [facility], one elsewhere) , both consistent with organizing [...] 7 days. Take 30 minutes before first xqlg-wckgo-yrasxelrni. Avoid lying down for 30 minutes. ??? [...] lunch. -Discussed UVB therapy, available now in [place] twice a week. Will start this. Warned [...]
--- OUTSIDE RECORDS SUMMARY | 2021-12-11 15:30 | XMS_ITS | Encounter Summary ---
:1950 Author Organization [facility] Address [address] [place] [address] Care Team Providers Name Role Phone Unavailable Primary Care Provider Unavailable Reason for Visit Reason Comments CONSULT Thyroid Encounter Details Date Type Department Care Team Description 11/13/2017 Initial Consult [facility] 380 Anirudh Cagle clinical hyperthyroidism (Primary Dx); Endocrinology MD Jose Elevated parathyroid hormone; [address] [place] [address] [place] Hypocalce [facility]. [facility] [address] [place] [address] [phone] Social History Tobacco Use Types Packs/Day Years [...] 12:00 PM CDT NAME: KRYS MOSHER MR#: [id number] CSN: [id number] AUTHENTICATING CLINICIAN: Anirudh Cagle MD CONFIRM #: [id number] LOC: 432 CLINIC CONSULTATION DATE OF CONSULTATION: [...] for this consultation. CC: DR. ISRAEL SLOAN [facility] [address] [place] [address] DMT:JARRETT C: CONFIRM #: [id number] documented in this encounter Plan of Treatment [...] - 11/16/2017 9:14 PM CDT Performed at [place] [address] [place] [address] CLIA number [id number] Anirudh Cagle MD LAB_1 Performing Organization Address City/[facility] Phon e Number PN SOFT 6[address] [place] [address] [phone] Tsh Receptor Antibody (11/16/2017 3:17 PM CDT) athologist Signature TSH Receptor <0.90 <=1.75 IU/L PN SOFT Antibody Comment: Performed by [facility], [address] [place] [address] [email or web address] [email or web address], Papito aPlomares MD - Lab . Director Specimen Anatomical Collection Method Collection Time Receive d Time (Source) Location / / Volume Laterality 11/16/2017 3:17 PM 8 8:43 CDT PM CDT Narrative PN SOFT - 11/18/2017 8:02 PM CDT Performed at [facility] [address] [place] [address] CLIA number [id number] Anirudh Cagle MD LAB_1 Performing Organization Address [facility] Phon e Number PN SOFT [address] [place] [address] T3 - Triiodothyronine, Free (FRT3) (11/16/2017 3:17 PM CDT) athologist Signature Triiodothyronin 3.2 1.7 - 3.7 PN SOFT e, Free pg/mL Specimen Anatomical Collection Method Collection Time Receive d Time (Source) Location / / Volume Laterality 11/16/2017 3:17 PM 8 6:30 CDT PM CDT Narrative PN SOFT - 11/16/2017 7:10 PM CDT Performed at [place] [address] [place] [address] CLIA number [id number] Anirudh Cagle MD LAB_1 Performing Organization Address [facility] Phon e Number PN SOFT [address] [place] [address] Free T4 (11/16/2017 3:17 PM CDT) athologist Signature Thyroxine, Free 1.1 0.7 - 1.5 PN SOFT ng/dL Specimen Anatomical Collection Method Collection Time Receive d Time (Source) Location / / Volume Laterality 11/16/2017 3:17 PM 8 6:30 CDT PM CDT Narrative PN SOFT - 11/16/2017 7:10 PM CDT Performed at [place] [address] [place] [address] CLIA number [id number] Anirudh Cagle MD LAB_1 Performing Organization Address [facility] Phon e Number PN SOFT [address] [place] [address] TSH (11/16/2017 3:17 PM CDT) athologist Signature Thyroid 0.38 0.30 - PN SOFT Stimulating 4.50 Hormone uIU/mL Specimen Anatomical Collection Method Collection Time Receive d Time (Source) Location / / Volume Laterality 11/16/2017 3:17 PM 8 6:30 CDT PM CDT Narrative PN SOFT - 11/16/2017 7:10 PM CDT Performed at [place] [address] [place] [address] CLIA number [id number] Anirudh Cagle MD LAB_1 Performing Organization Address City/[facility] Phon e Number PN SOFT [address] [facility] [place] [address] Vitamin D (In house) (11/16/2017 3:17 PM [...] - 11/16/2017 9:29 PM CDT Performed at [address] [address] CLIA number [id number] Anirudh Cagle MD LAB_1 Performing Organization Address [facility] Phon e Number PN SOFT [address] [place] [address] (ABNORMAL) PTH - Parathyroid Hormone Intact (11/16/2017 3:17 PM CDT) athologist [facility] PTH 159 (H) 10 - 100 PN SOFT pg/mL Specimen Anatomical Collection Method Collection Time Receive d Time (Source) Location / / Volume Laterality 11/16/2017 3:17 PM 8 8:43 CDT PM CDT Narrative PN SOFT - 11/16/2017 9:51 PM CDT Performed at [place] [address] [place] [address] CLIA number [id number] Anirudh Cagle MD LAB_1 Performing Organization Address [facility] Phon e Number PN SOFT [address] [place] [address] Phosphorus (11/16/2017 3:17 PM CDT) athologist Signature Phosphorus Serum 3.2 2.3 - 4.7 PN SOFT mg/dL Specimen Anatomical Collection Method Collection Time Receive d Time (Source) Location / / Volume Laterality 11/16/2017 3:17 PM 8 3:16 CDT PM CDT Narrative PN SOFT - 11/16/2017 4:36 PM CDT Performed at [facility], [address] [facility], [place] [address] CLIA number [id number] Anirudh Cagle MD LAB_1 Performing Organization Address City/State/ZIP Code Phon e Number PN SOFT [address] [place] [address] (ABNORMAL) CMP - Comprehensive Metabolic Panel (11/16/2017 3:17 PM CDT) [facility] Method Time Signature Aspartate 48 (H) 10 [...] - 11/16/2017 4:36 PM CDT Performed at [facility], [address] [facility], [place] [address] CLIA number [id number] Anirudh Cagle MD LAB_1 Performing Organization Address City/State/ZIP Code Phon e Number PN SOFT [address] [place] [address] documented in this encounter Visit Diagnoses Diagnosis [...]
--- OUTSIDE RECORDS SUMMARY | 2021-12-11 15:30 | XMS_ITS | Encounter Summary ---
:1950 Author Organization [facility] Address [address] [place] [address] Care Team Providers Name Role Phone Unavailable Primary Care Provider Unavailable Reason for Visit Reason Comments RESULTS, TEST Encounter Details Date Type Department Care Team Description 09/29/2012 Telephone [facility] Carlos Jones MD RESULTS, TEST [address] [place] [address] [place] [address] (Wo rk) Social History Tobacco [...] absence (rc 8-5) She may be reached @[phone]. Thank you. documented in this encounter Plan of Treatment Not on filedocumented as of this encounter Visit Diagnoses Not on filedocumented in this encounter
--- OUTSIDE RECORDS SUMMARY | 2021-12-11 15:30 | XMS_ITS | Encounter Summary ---
:1950 Author Organization [facility] Address [address] [place] [address] Care Team Providers Name Role Phone Unavailable Primary Care Provider Unavailable Reason for Visit Reason Comments Rash SWELLING, LEG Encounter Details Date Type Department Care Team Description 11/27/[address] [facility] 380 Found, No Pcp , Rash; SWELLING, LEG Dermatology 6[address] [facility] [address] [place] [place] [address] [address] [place] [address] Social History Tobacco Use Types Packs/Day Years Used Date Smoking Tobacco: Never Assessed Sex Assigned at Date Recorded Not on file documented as of this encounter Nursing Notes Vicki Andrew - 11/27/2012 2:28 PM CDT Protocol: LEG SWELLING AND [id number] Affirmative: [1] Thigh, calf, or ankle swelling [...]
--- OUTSIDE RECORDS SUMMARY | 2021-12-11 15:30 | XMS_ITS | Encounter Summary ---
:1950 Author Organization [facility] Address [address] [place] [address] Care Team Providers Name Role Phone Unavailable Primary Care Provider Unavailable Reason for Visit Reason Comments ECZEMA Encounter Details Date Type Department Care Team Description 11/30/2012 Procedure Visit [facility] Nurse, Bravo Chao ECZEMA [address] [place] [address] Social History Tobacco Use Types [...]
--- OUTSIDE RECORDS SUMMARY | 2021-12-11 15:30 | XMS_ITS | Encounter Summary ---
:1950 Author Organization [facility] Address [address] [place] [address] Care Team Providers Name Role Phone Unavailable Primary Care Provider Unavailable Encounter Details Date Type Department Care Team Description 10/25/2012 Lab Visit [facility] 3850 Rash and other nonspecific skin eruption; Laboratory Unspecified pruritic disorde r [address] [place], [place] [address] Social History Tobacco Use Types Packs/Day Years [...] and let her know lymphocytes are ok SURE SUPERVISOR Miscellaneous - 04/11/2016 4:09 AM CSTNotes Recorded by Hira Link RN on 10/25/2012 at 5:13 PMPt notified.------Notes Recorded by Megan Son MD on 10/25/2012 at 3:42 PMPlease call and let her know lymphocytes are ok SURE SUPERVISOR documented in this encounter Plan of [...] - 10/25/2012 12:26 PM CDT Performed at [facility], [address] [place] [address] Transcriptions 04/11/2016 4:09 AM CSTNotes Recorded by [...] - 10/25/2012 12:26 PM CDT Performed at [facility], [address] [place] [address] Transcriptions 04/11/2016 4:09 AM CSTNotes Recorded by [...]
--- OUTSIDE RECORDS SUMMARY | 2021-12-11 15:30 | XMS_ITS | Encounter Summary ---
:[address] [facility] Address [address] [place] [address] Care Team Providers Name Role Phone Unavailable Primary Care Provider Unavailable Reason for Visit Reason Comments Appt. Needed Referral rec via fax for Hyp erthyroidism from Dr. Idalmis Sloan at [facility] Encounter Details Date Type Department Care Team Description 2017 Notes/Orders [facility] 3800 Nurse, P3800 End Endocrinology [address] [place] [address] Social History Tobacco Use Types Packs/Day Years Used Date Smoking Tobacco: Every Day Cigarettes 1 Sex Assigned at Date Recorded Not on file documented as of this encounter Progress Notes Killian Shah - 2017 1:20 PM CDT Referral rec via fax for Hyperthyroidism from Dr. Idalmis Sloan at [facility] documented in this encounter Plan of Treatment Not on filedocumented as of this encounter Visit Diagnoses Not on filedocumented in this encounter
--- OUTSIDE RECORDS SUMMARY | 2021-12-11 15:30 | XMS_ITS | Encounter Summary ---
:1950 Author Organization [facility] Address [address] [place] [address] Care Team Providers Name Role Phone Unavailable Primary Care Provider Unavailable Reason for Visit Reason Comments ECZEMA Encounter Details Date Type Department Care Team Description 11/04/2012 Procedure Visit [facility] Nurse, Bravo Chao ECZEMA [address] [place] [address] Social History Tobacco Use Types [...]
--- OUTSIDE RECORDS SUMMARY | 2021-12-11 15:30 | XMS_ITS | Encounter Summary ---
:[address] [facility] Address [address] [place] [address] Care Team Providers Name Role Phone Unavailable Primary Care Provider Unavailable Encounter Details Date Type Department Care Team Description 10/12/2012 Notes/Orders [facility] 3800 Megan Son MD Dermatology [address] [place] [address] [place], [place] [address] [phone] Social History Tobacco Use Types Packs/Day Years Used Date Smoking Tobacco: Never Assessed Sex Assigned at Date Recorded Not on file documented as of this encounter Plan of Treatment Not on filedocumented as of this encounter Visit Diagnoses Not on filedocumented in this encounter
--- OUTSIDE RECORDS SUMMARY | 2021-12-11 15:30 | XMS_ITS | Clinical Summary ---
:1950 Author Organization [facility] [place] [address] Care Team Providers Name Role Phone Idalmis [...] 05/10/2010, 08/18/1994 COVID-19 vaccine series (3 - 01/10/2021 11/15/2020, 021 Booster for Pfizer series) BMI [...] MEDICARE PART A - MEDICARE PART A [id number] 2008-Prese ATTN: CLAIMS HB USE ONLY HB ONLY nt [address] [facility][1[facility] [place] [address] [facility] MR [id number] 2020-Presen [address] [address] [place] [address] Advance Directives Latest Code Status on File Code Status Date Activated Date Inactivated Comments Full Code 07/16/2012 5:52 PM 07/17/2012 6:32 PM Full Code 07/16/2012 10:11 AM 07/16/2012 5:52 PM Care Teams [employer] He[employer] Relationship Specialty Start Date End Date Idalmis Sloan MD PCP - General Family Practice 07/15/12
--- OUTSIDE RECORDS SUMMARY | 2021-12-11 15:30 | XMS_ITS | Encounter Summary ---
:1950 Author Organization [facility] Address [address] [place] [address] Care Team Providers Name Role Phone Unavailable Primary Care Provider Unavailable Reason for Visit Reason Comments Rash Encounter Details Date Type Department Care Team Description 09/14/2012 Office Visit [place] Alok [facility] [facility] Medicine Cheri Qureshi (Primary Dx) [address] 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 Take 30 minutes before first bnov-lqvfc-owuwkmiodw. Avoid lying down for 30 minutes. ??? [...]
--- OUTSIDE RECORDS SUMMARY | 2021-12-11 15:30 | XMS_ITS | Encounter Summary ---
:1950 Author Organization [facility] Address [address] [place] [address] Care Team Providers Name Role Phone Unavailable Primary Care Provider Unavailable Encounter Details Date Type Department Care Team Description 11/16/2017 Lab Visit [facility] Elevated parathyroid hormone ; [address] Subclinical hyperthyroidism; [place] [address] Hypocalcemia [phone] Social History Tobacco Use Types Packs/Day Years [...] Transglutaminase Ab IgA (11/16/2017 3:17 PM CDT) [facility] Method Time Signature TISSUE 0.4 0.0 - 6.9 PN SOFT TRANSGLUTAMINASE AB IU/L IGA Comment: Reference Range: <7 Negative, 7 - 10 Equivocal, >10 Posit sung Specimen Anatomical Collection Method Collection Time Receive d Time (Source) Location / / Volume Laterality 11/16/2017 3:17 PM 8 8:53 CDT PM CDT Narrative PN SOFT - 11/18/2017 12:30 PM [place] [address] CLIA number [id number] Anirudh Cagle MD LAB_1 Performing Organization Address [facility] [place] [facility] Phon e Number PN SOFT [address] [place] [address] Celiac Disease Reflex Panel IgA (11/16/2017 3:17 PM CDT) athologist Signature IGA 198 69 - 517 PN SOFT mg/dL Specimen Anatomical Collection Method Collection Time Receive d Time (Source) Location / / Volume Laterality 11/16/2017 3:17 PM 8 8:54 CDT PM CDT Narrative PN SOFT - 11/16/2017 9:14 PM CDT Performed at [address] [address] CLIA number [id number] Anirudh Cagle MD LAB_1 Performing Organization Address [facility] [place] [facility] Phon e Number PN SOFT [address] [place] [address] [phone] Tsh Receptor Antibody (11/16/2017 3:17 PM CDT) athologist Signature TSH Receptor <0.90 <=1.75 IU/L PN SOFT Antibody Comment: Performed by [facility], [address] [place] [address] [email or web address], Papito Palomares MD - Lab . Director Specimen Anatomical Collection Method Collection Time Receive d Time (Source) Location / / Volume Laterality 11/16/2017 3:17 PM 8 8:43 CDT PM CDT Narrative PN SOFT - 11/18/2017 8:02 PM CDT Performed at [facility] [address] [place] [address] CLIA number [id number] Anirudh Cagle MD LAB_1 Performing Organization Address City/[facility] [place] [facility] Phon e Number PN SOFT [address] [place] [address] T3 - Triiodothyronine, Free (FRT3) (11/16/2017 3:17 PM CDT) athologist Signature Triiodothyronin 3.2 1.7 - 3.7 PN SOFT e, Free pg/mL Specimen Anatomical Collection Method Collection Time Receive d Time (Source) Location / / Volume Laterality 11/16/2017 3:17 PM 8 6:30 CDT PM CDT Narrative PN SOFT - 11/16/2017 7:10 PM CDT Performed at [facility], [facility] [place] [address] CLIA number [id number] Anirudh Cagle MD LAB_1 Performing Organization Address City/[facility] [place] [facility] Phon e Number PN SOFT [address] [place] [address] Free T4 (11/16/2017 3:17 PM CDT) athologist Signature Thyroxine, Free 1.1 0.7 - 1.5 PN SOFT ng/dL Specimen Anatomical Collection Method Collection Time Receive d Time (Source) Location / / Volume Laterality 11/16/2017 3:17 PM 8 6:30 CDT PM CDT Narrative PN SOFT - 11/16/2017 7:10 PM CDT Performed at [address] [address] CLIA number [id number] Anirudh Cagle MD LAB_1 Performing Organization Address [facility] [place] [facility] Phon e Number PN SOFT [address] [place] [address] TSH (11/16/2017 3:17 PM CDT) athologist Signature Thyroid 0.38 0.30 - PN SOFT Stimulating 4.50 Hormone uIU/mL Specimen Anatomical Collection Method Collection Time Receive d Time (Source) Location / / Volume Laterality 11/16/2017 3:17 PM 8 6:30 CDT PM CDT Narrative PN SOFT - 11/16/2017 7:10 PM CDT Performed at [address] [address] CLIA number [id number] Anirudh Cagle MD LAB_1 Performing Organization Address [facility] [place] [facility] Phon e Number PN SOFT [address] [place] [address] Vitamin D (In house) (11/16/2017 3:17 PM [...] - 11/16/2017 9:29 PM CDT Performed at [address] [address] CLIA number [id number] Anirudh Cagle MD LAB_1 Performing Organization Address [facility] [place] [facility] Phon e Number PN SOFT [address] [place] [address] (ABNORMAL) PTH - Parathyroid Hormone Intact (11/16/2017 3:17 PM CDT) P athologist Signature PTH 159 (H) 10 - 100 PN SOFT pg/mL Specimen Anatomical Collection Method Collection Time Receive d Time (Source) Location / / Volume Laterality 11/16/2017 3:17 PM 8 8:43 CDT PM CDT Narrative PN SOFT - 11/16/2017 9:51 PM CDT Performed at [place] [address] [place] [address] CLIA number [id number] Anirudh Cagle MD LAB_1 Performing Organization Address [facility] [place] [facility] Phon e Number PN SOFT [address] [place] [address] Phosphorus (11/16/2017 3:17 PM CDT) athologist Signature Phosphorus Serum 3.2 2.3 - 4.7 PN SOFT mg/dL Specimen Anatomical Collection Method Collection Time Receive d Time (Source) Location / / Volume Laterality 11/16/2017 3:17 PM 8 3:16 CDT PM CDT Narrative PN SOFT - 11/16/2017 4:36 PM CDT Performed at [facility], [address] [place] [address] CLIA number [id number] Anirudh Cagle MD LAB_1 Performing Organization Address City/[facility] [place] [facility] Phon e Number PN SOFT [address] [place] [address] (ABNORMAL) CMP - Comprehensive Metabolic Panel (11/16/2017 [...] - 11/16/2017 4:36 PM CDT Performed at [facility], [facility] [address] [place] [address] CLIA number [id number] Anirudh Cagle MD LAB_1 Performing Organization Address City/State/ZIP Code Phon e Number PN SOFT [address] [place] [address] [phone] documented in this encounter Visit Diagnoses Diagnosis Elevated parathyroid hormone (HRC) Unspecified endocrine disorder Subclinical hyperthyroidism ([facility]C) Thyrotoxicosis without mention of goiter or other cause, without mention of thyrotoxic crisis or storm Hypocalcemia documented in this encounter
--- OUTSIDE RECORDS SUMMARY | 2021-12-11 15:30 | XMS_ITS | Encounter Summary ---
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 [address] [place], [place] [phone] [address] Social History Tobacco Use Types Packs/Day Years Used Date Smoking Tobacco: Never Assessed Sex Assigned at Date Recorded Not on file documented as of this encounter Last Filed Vital Signs Vital Sign Reading Time Taken Comments Blood Pressure 124/68 03/03/2013 10:55 AM MYSQL DEVELOPER Pulse 84 03/03/2013 10:55 AM MYSQL DEVELOPER Temperature 36.5 ??C (97.7 ??F) 03/03/2013 10:55 AM MYSQL DEVELOPER Respiratory Rate - - Oxygen Saturation - - Inhaled Oxygen Concentration - - Weight - - Height - - Body Mass Index - - documented in this encounter Patient Instructions Patient InstructionsMoTammie cullen - 03/03/2013 11:13 AM CST Delsym for cough Mucinex D for sinus congestion. Ask the Pharmacist for this L DEVELOPER documented in this encounter Progress Notes Tammie [...] 7 days. Take 30 minutes before first vaan-mukrs-pkxkznhnhk. Avoid lying down for 30 minutes. ??? [...] discharged ambulatory and in stable condition. *SH~DNS~SOAP1 L DEVELOPER documented in this encounter Plan of Treatment Not on filedocumented as of this encounter Visit Diagnoses Diagnosis Acute bronchitis - Primary documented in this encounter
--- OUTSIDE RECORDS SUMMARY | 2021-12-11 15:30 | XMS_ITS | Encounter Summary ---
:1950 Author Organization [facility] Address [address] [place] [address] Care Team Providers Name Role Phone Unavailable Primary Care Provider Unavailable Reason for Visit Reason Comments Ulcer, Foot 5th toes b/l ft sores x 1 we ek Encounter Details Date Type Department Care Team Description 12/22/2018 Initial Consult [facility] Stinson , Charcot's joint of right foot (Primary Dx); MedSurg DPM Blister of fifth toe of right foot, init ial encounter; [address] [place] [address] [place], [place] [phone] Social History Tobacco Use Types Packs/Day Years [...] review indicates that she was admitted at [facility] on November 04, 2018 and discharged on [...] and graft Social History: 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 These are an accommodative insert. ASSESSMENT: ICD-10-CM [...] procedure. In review of the notes from [facility] it does indicate Charcot reconstruction so it [...] voice recognition software and may contain some glass science engineer errors) documented in this encounter Nursing Notes [...]
--- OUTSIDE RECORDS SUMMARY | 2021-12-11 15:30 | XMS_ITS | Encounter Summary ---
:1950 Author Organization [facility] Address [address] [place] [address] Care Team Providers Name Role Phone Unavailable Primary Care Provider Unavailable Reason for Visit Reason Comments DERMATITIS Encounter Details Date Type Department Care Team Description 12/02/2012 Procedure Visit [facility], Bravo Chao DERMATITIS [address] [place] [address] Social History Tobacco Use Types [...]
--- OUTSIDE RECORDS SUMMARY | 2021-12-11 15:30 | XMS_ITS | Continuity of Care Document ---
:1950 Author Organization [facility] Address [address] [facility] [place] [address] Care Team Providers Name Role Phone [facility] Unavailable Unavailable Procedures Procedure Date INTERLAMINAR CRV OR THRC Advance Directives Directive Yes / No Effective Date File Name No Information Encounters Encounter Practice Location Reason(s) Diagnoses Date Provider Provide rs Description For Visit Copied on Encounter [place] [facility] Information [facility] Provider: Surgery Surgery Surgery [facility], [facility] [place]. [place], [address] [facility] [address] [facility] [place], [place], [place], [id number], [place], [address]. [id number], tel:[phone] [place]. [phone] tel:[phone] Family History Family Member Type Diagnosis Age At Onset No Information Payers Payer name Insurance type Covered libertarian ID Authorization(s ) [facility] MedicareComplete Replacement [id number] Social History Type Description Quantity Date Captured [...]
--- OUTSIDE RECORDS SUMMARY | 2021-12-11 15:31 | XMS_ITS | Encounter Summary ---
:1950 Author Organization [place] Address [address] [facility] [place] [address] Care Team Providers Name Role Phone LeviIdalmis stahl Ann Primary Care Provider Madhav Matute MD Unavailable Encounter Details Date Type Department Care Team Description 01/15/2021 Medical Correspondence [facility] Scan, PHYSICAL THERAPY Health Info Mgmt Non-Provider ORDER [facility] [address] [place] [address] Social History Tobacco Use Types Packs/Day Years Used Date Smoking Tobacco: Never Smokeless Tobacco: Never Sex Assigned at Date Recorded Not on file documented as of this encounter Plan of Treatment Not on filedocumented as of this encounter Visit Diagnoses Not on filedocumented in this encounter Care Teams Data Officer Relationship Specialty Start Date End Date Idalmis Sloan PCP - General Family Practice 11/04/13 Madhav Matute MD Assigned Neuroscience 12/02/20 [address] MARYANA BEGUM Provider [address] [place] [id number] documented as of this encounter
--- OUTSIDE RECORDS SUMMARY | 2021-12-11 15:31 | XMS_ITS | Encounter Summary ---
:1950 Author Organization [place] Address [facility] [place] [address] Care Team Providers Name Role Phone Idalmis Sloan Primary Care Provider Madhav Matute MD Unavailable Encounter Details Date Type Department Care Team Description 01/10/2021 Orders Only [facility] Neurosurgery Reported, Patient Clinic [address] [place] [address] Social History Tobacco Use Types [...] on filedocumented in this encounter Care Teams Fisheries Inspector Relationship Specialty Start Date End Date Idalmis Sloan PCP - General Family Practice 11/04/13 Madhav Matute MD Assigned Neuroscience 12/02/20 [address] [facility] [address] [place] [address] documented as of this encounter
--- OUTSIDE RECORDS SUMMARY | 2021-12-11 15:31 | XMS_ITS | Clinical Summary ---
:1950 Author Organization [place] Address [facility] [place] [address] Care Team Providers Name Role Phone Idalmis [...] be differe nt from the original. [email or web address] Problem Noted Date Constipation 12/17/2020 Generalized muscle [...] 05/10/2010, 08/18/1994 (2 - Td or Tdap) COVID-19 Vaccine (3 - 01/10/2021 11/15/2020, 10/25/2020 Booster for Pfizer series) PHQ-2 (once per calendar 03/02/2021 year) INFLUENZA VACCINE (#1) 2021 01/04/2021, 11/09/2019, 12/02/2018, [...] ype Group Dates WORK COMP WC OTHER [id number] 2010-Pres [phone] [address] [phone] [place] [address] [facility] [id number] 2018-Pres [phone] [address] [facility] [address] [place] [address] [phone] (Home) [address] (Work) [place] [id number] Worker's Employer 1950 [phone] 9 (Home) [facility] [address] [place] [address] Advance Directives For more information, please contact: [phone] Latest Code Status on File Code Status Date Activated Date Inactivated Comments Full Code 12/17/2020 2:45 AM 12/18/2020 4:31 PM All basic and advanced life-sustaining interventions are performed as cachorro ropriate Question Answer Comments Code status determined by: Discussion with patient/ legal de cision maker Code Status History Code Status Date Activated Date Inactivated Comments Full Code 11/06/2018 8:23 AM 12/16/2020 8:28 PM Question Answer Comments Code status determined by: Discussion with patient/legal dec ision maker Full Code 11/04/2018 9:50 PM 11/06/2018 8:23 AM Question Answer Comments Code status determined by: Discussion with patient/legal dec ision maker Care Teams Electrician Control Equipment Relationship Specialty Start Date End Date Idalmis Sloan PCP - General Family Practice 11/04/13 Madhav Matute MD Assigned Neuroscience 12/02/20 [address] [place] [address] [address]
--- OUTSIDE RECORDS SUMMARY | 2021-12-11 15:31 | XMS_ITS | Continuity of Care Document ---
:[address] [facility] Address [address] [place] [address] Phone Care Team Providers Name Role Phone [...] 5 take 1 - 2 tablet - Active mg-acetaminophen by ORAL route every 325 mg tablet 4 hours prn, max 4 per day for chronic pain Senna-S 8.6 mg-50 take [...] max of 2 tabs/day for chronic pain Procedures Procedure Date Foll-up [...] OFFICE/OUTPATIENT VISIT, EST -2014 OFFICE/OUTPATIENT VISIT, EST OFFICE/OUTPATIENT VISIT, EST OFFICE/OUTPATIENT VISIT, EST OFFICE/OUTPATIENT VISIT, EST -2013 OFFICE/OUTPATIENT VISIT, EST [...] Description For Visit Copied on Encounter OFFICE/OUTPAT [facility] low back Drug induced Pedro Specialist IENT VISIT, [facility] pain constipationRhe [facility]. 7 235 : Rohith EST Pain [place] (chief umatoid [address] Hien Henderson, Clinic, complaint) [place], [place] .Referri [address] in left DOUG, tracey Henderson, shoulderPain in [id number], Provi fredy: [place], right hipPain [place]. Faisal CAMACHO, in left tel:[phone] Will J, [phone] [place] [address] [address] , [place] right ankle and [place], tel:+[phone] joints of right Minnea chiqui [phone] footOther s, [place], spondylosis, [address] cervical . regionOther tel:[phone] spondylosis, [id number] lumbar regionRadiculop athy, cervical regionPostlamin ectomy syndrome, not elsewhere classifiedLong term (current) use of opiate analgesic OFFICE/OUTPAT [facility] low back Drug induced Oct- Pedro Specialist IENT VISIT, [facility] pain constipationRhe [facility]. 7 235 : Rohith EST Pain [place] (chief umatoid [address] Hien Henderson, [facility], complaint) [place], [place] .Referri [address] in right [place], tracey Henderson, hipPain in left [id number], Provi fredy: [place], shoulderPain in [place]. Faisal [place], left kneePain tel:[phone] Will J, [phone] in right ankle [address]47[address] [address] , [place] and joints of [place], tel:+ right footOther Minnea chiqui [phone] spondylosis, [place], [place], cervical [address] regionOther . spondylosis, tel:+ lumbar [phone] regionRadiculop athy, cervical regionPostlamin ectomy syndrome, not elsewhere classifiedLong term (current) use of opiate analgesicEncoun ter for therapeutic drug level monitoring [facility] No Information Sep-0 Pedro Refer [facility]. 7235 Provider : Pain [place] [address] Faisal Henderson, [place], Jaspreet Calderón, [address] [place], [address] [place], [id number], [place], [place]. [place], tel:[phone] s, [place], [phone] [address] , [place] . tel:+ tel:+ [phone] [facility] lumbago Postlaminectomy Dulen Refe [facility] (chief syndrome, not 0- Lois. Prov ider: Pain [place] complaint) elsewhere 2 [address] [facility], classified [place], Will J, [facility] [address] DOUG Henderson, [place] Henderson, [id number], [facility], [place]. [place], [place], [id number] tel:[phone] , [place] [address] . tel: tel:+ [phone] OFFICE/OUTPAT [facility] low back Pain in left Pedro Specialist IENT VISIT, [facility] pain kneeDrug 0- [facility]. 7235 : R oy EST Pain [place] (chief induced [address] Hien Henderson, Clinic, complaint) constipationRhe [place], [place].Referri [address] umatoid [place], ng [place], arthritisPain [id number], Provide r: [place], in left [place]. Faisal [place], shoulderPain in tel:+ Arnold l J, [phone] right hipPain 94756 [address] s , [place] in right ankle [place], tel:+ and joints of [place] [phone] right footOther s, [place], spondylosis, [address] cervical . regionOther tel:+952 spondylosis, 9941749 lumbar regionRadiculop athy, cervical regionPostlamin ectomy syndrome, not elsewhere classifiedLong term (current) use of opiate analgesic OFFICE/OUTPAT [facility] low back Drug induced Pedro Specialist IENT VISIT, [facility] pain constipationRhe 2 [facility]. 7 235 : Rohith EST Pain [place] (chief umatoid [address] [place] Hien, Clinic, complaint) [place] .Referri [address] in left [place], ng [place], shoulderPain in [id number], Provi fredy: [place], right hipPain [place]. Faisal CAMACHO, in left tel:+4 Will J, [phone] [place] [address] [address] , [place] right ankle and [place], tel:+ joints of right Minnea chiqui [phone] footOther s, [place], spondylosis, [address] cervical . regionOther tel:+952 spondylosis, 0176878 lumbar regionRadiculop athy, cervical regionPostlamin ectomy syndrome, not elsewhere classifiedLong term (current) use of opiate analgesic OFFICE/OUTPAT [facility] low back Drug induced Pedro Specialist IENT VISIT, [facility] pain constipationRhe [facility]. 7 235 : Rohith EST Pain [place] (chief umatoid [address] [place] Hien, Clinic, complaint) [place] .Referri [address] in left [place], ng [place], shoulderPain in [id number], Provi fredy: [place], right hipPain [place]. Faisal CAMACHO, in left tel:[phone] Will J, [phone] [place] [address] [address] , [place] right ankle and [place], tel:+195 joints of right Minnea chiqui [phone] footOther s, [place], spondylosis, [address] cervical . regionOther tel: spondylosis, 9120902 lumbar regionRadiculop athy, cervical regionPostlamin ectomy syndrome, not elsewhere classifiedLong term (current) use of opiate analgesic [facility] Radiculopathy, Balbuenaанна Pulido. Referring [facility] cervical region [address] Provid er: Pain Center 2 Faisal Henderson, [place], Will J, [address] [place], [address] [place], [id number], [place], [place], [place]. [place], tel: s, [place], [phone] , [place] . tel: tel: [phone] OFFICE/OUTPAT [facility] low back Pain in left Pedro Specialist IENT VISIT, [facility] pain kneeRheumatoid [facility]. 72 35 : Rohith EST Pain [place] (chief arthritisPain [address] Hien Henderson , Clinic, complaint) in left [place], [place].Refer ri [address] shoulderPain in [place], tracey Henderson, right hipPain [id number], Provide r: [place], in right ankle [place]. Faisal CAMACHO, and joints of tel: Will J, [phone] right footOther [address] [address] [facility] [place] spondylosis, [place], tel: cervical [place] [phone] regionOther [place], [place], spondylosis, [address] lumbar . regionPostlamin tel: 52 ectomy [id number] syndrome, not elsewhere classifiedLong term (current) use of opiate analgesicRadicu lopathy, cervical regionDrug induced constipation OFFICE/OUTPAT [facility] low back Pain in left Pedro Specialist IENT VISIT, [facility] pain shoulderPain in [facility]. 7 235 : Rohith EST Pain [place] (chief right [address] Hien Henderson, Clinic, complaint) hipRheumatoid [place], [place] .Referri [address] arthritisPain DOUG, ng [place], in left [id number], Provider: [place] kneePain in [place]. Faisal [place], right ankle and tel: Arnold l J, [phone] joints of right [address] [address] , [place] footOther [place], tel: spondylosis, [place] [phone] cervical [place], [place], regionOther [address] spondylosis, . lumbar tel: regionPostlamin 9193511 ectomy syndrome, not elsewhere classifiedLong term (current) use of opiate analgesicEncoun ter for therapeutic drug level monitoring OFFICE/OUTPAT [facility] low back Pain in left Apr- [facility] Specialist IENT VISIT, [facility] pain shoulderPain in [facility]. 7 235 : Rohith EST Pain [place] (chief left kneePain 2 [facility], complaint) in right [place], [place].Refe rri [address] hipRheumatoid tracey CAMACHO, arthritisOther [id number], Provid er: [place], spondylosis, [place]. Faisal DOUG, lumbar tel: Will J, [phone] regionPostlamin 00055 [address] [facility] [place] , [place] ectomy [place], tel: syndrome, not [place] [phone] elsewhere s, [place], classifiedPain [address] in right ankle . and joints of tel: right footLong 1478243 term (current) use of opiate analgesicOther spondylosis, cervical regionEncounter for therapeutic drug level monitoring OFFICE/OUTPAT [facility] low back Pain in left [facility] Specialist IENT VISIT, [facility] pain shoulderPain in [facility]. 7 235 : Rohith EST Pain [place] (chief left kneePain 2 [facility], complaint) in right [place], [place].Refe rri [address] hipCervicalgiaR DOUG, tracey Henderson, heumatoid [id number], Provider: [place], arthritisOther [place]. Faisal CAMACHO, spondylosis, tel: Will J , [phone] lumbar 75134 [address] , [place] regionPostlamin [place], tel: ectomy [place] 03936547 syndrome, not [place], [place], elsewhere [address] classifiedPain . in right ankle tel: 2 and joints of 8814629 right footLong term (current) use of opiate analgesic OFFICE/OUTPAT [facility] low back Pain in left [facility] Specialist IENT VISIT, [facility] pain shoulderPain in [facility]. 7 235 : Rohith EST Pain [place] (chief left kneePain [address] Hien Henderson , Clinic, complaint) in right [place], [place].Refe rri [address] hipCervicalgiaR [place], ng [place], heumatoid 564259158, Provider: [place], arthritisOther [place]. Faisal CAMACHO, spondylosis, tel: Will J , [phone] lumbar 60058 [address] , [place] regionPostlamin [place], tel: ectomy [place] 56105464 syndrome, not [place], [place], elsewhere [address] classifiedPain . in right ankle tel: 2 and joints of 9398548 right footLong term (current) use of opiate analgesic OFFICE/OUTPAT [facility] low back Other [facility] Speci alist IENT VISIT, [facility] pain spondylosis, [facility]. 7235 : Rohith EST Pain [place] (chief lumbar [address] Bean Hendersoneller, Clinic, complaint) [place], [place].Referri [address] ectomy [place], ng [place], syndrome, not [id number], Provide r: [place], elsewhere US. Faisal CAMACHO, classifiedPain tel: Will J, [phone] in right ankle 69416 [address] , [place] and joints of [place], tel: right footPain [place] 77293236 in [place], [place], [place] [address] left kneePain . in right tel:2 hipCervicalgiaR 5074450 heumatoid arthritisLong term (current) use of opiate analgesic OFFICE/OUTPAT [facility] low back Other [facility] Speci alist IENT VISIT, [facility] pain spondylosis, [facility]. 7235 : Rohith EST Pain [place] (chief lumbar [address] SantiagoBeanHien, Clinic, complaint) regionPosamin [place], [place].Referri [address] ectomy [place], ng [place], syndrome, not [id number], Provide r: [place], elsewhere US. Faisal CAMACHO, classifiedPain tel:+4 Will J, [phone] in right ankle 51886 [address] , [place] and joints of [place], tel:+ right footPain [place] [phone] in left [place], [place], [place] [address] left kneePain . in right tel:+2 hipCervicalgiaR 2529723 heumatoid arthritisLong term (current) use of opiate analgesic OFFICE/[facility] low back Other [facility] Speci ali IENT VISIT, [facility] pain spondylosis, [facility]. 7235 : Rohith EST Pain [place] (chief lumbar 1 [address] [place] [facility], complaint) [place], [place].Referri [address] ectomy [place], ng [place], syndrome, not [id number], Provide r: [place], elsewhere US. Faisal CAMACHO, classifiedPain tel: Will J, [phone] in right ankle 03200 [address] , [place] and joints of [place], tel:+ right footPain [place] 84406844 in left [place], [place], [place] [address] left kneePain . in right tel:+2 hipCervicalgiaL 7764582 meghan term (current) use of opiate analgesicEncoun ter for therapeutic drug level monitoringRheum atoid arthritis [facility] Other Oct- [facility] Speci alist IENT VISIT, [facility] pain spondylosis, [facility]. 7235 : Rohith EST Pain [place] (chief lumbar [address] [place] Hien, Clinic, complaint) [place], [place].Referri [address] ectomy [place], ng [place], syndrome, not [id number], Provide r: [place], elsewhere US. Faisal CAMACHO, classifiedPain tel:4 Will J, [phone] in right ankle 11988 [address] , [place] and joints of [place], tel:+95 right footPain [place] 55213306 in left [place], [place], [place] [address]22 48 left kneePain . in right tel: hipCervicalgiaL 8053967 meghan term (current) use of opiate analgesic OFFICE/OUTPAT [facility] low back Other [facility] ali IENT VISIT, [facility] pain spondylosis, [facility]. 7235 : Rohith EST Pain [place] (chief lumbar 1 [address] [place] [facility], complaint) regionPos[place], [place].Referri [address] ectomy [place], ng [place], syndrome, not [id number], Provide r: [place], elsewhere US. Faisal CAMACHO, classifiedPain tel: Will J, [phone] in right ankle 38248 [address] , [place] and joints of [place], tel: right footPain [place] 97324448 in left [place], [place], [place] [address] left kneePain . in right tel: hipCervicalgiaL 2866159 meghan term (current) use of opiate analgesic OFFICE/OUTPAT [facility], [facility] pain spondylosis, [facility]. 7235 : Rohith EST Pain [place] (chief lumbar 1 [address] [place] [facility], complaint) [place], [place].Referri [address] ectomy [place], ng [place], syndrome, not [id number], Provide r: [place], elsewhere US. Faisal CAMACHO, classifiedPain tel: Will J, [phone] in right ankle 62911 [address] , [place] and joints of [place], tel: right footPain [place] 76898250 in left [place], [place], [place] [address]74 48 left kneePain . in right tel: hipCervicalgiaL 6721191 meghan term (current) use of opiate analgesic [facility] group home May- [facility] (current) use [facility]. 7235 Pain [place] of opiate [address] [place], Clinic, analgesicEncoun [place], [address] for [place], [place], therapeutic [id number], [place], drug level [place]. [place], monitoring tel: [phone] , [place] tel: [phone] OFFICE/OUTPAT [facility] low back Other May- Pedro Speci ali IENT VISIT, [facility] pain spondylosis, [facility]. 7235 : Rohith EST Pain [place] (chief lumbar [address] Bean Hendersoneller, Clinic, complaint) regionPos[place], [place].Referri [address] ectomy [place], ng [place], syndrome, not [id number], Provide r: [place], elsewhere [place]. Faisal [place], classifiedPain tel: Will J, [phone] in right ankle 43505 [address] , [place] and joints of [place], tel: right footPain [place] 32135991 in left [place], [place], [place] [address]98 48 left kneePain . in right tel: hipCervicalgiaL 0477535 meghan term (current) use of opiate analgesicEncoun ter for therapeutic drug level monitoring OFFICE VISIT, [facility] low back Other [facility] pain spondylosis, [facility]. 7235 : R oy TELEMEDICINE Pain [place] (chief lumbar [address] Bean Hendersoneller, Clinic, complaint) regionPosEss[facility]ia Health, [address] ectomy [place], Rd [address] [place], syndrome, not [id number], 140, [place], elsewhere [place]. [place], classifiedPain tel: , [place] , [phone] in right ankle 88918 15739. , [place] and joints of tel: tel: right footPain 4525249 Ref 63110780 in left erring shoulderPain in Provider : left kneePain Faisal in right Will J, hipCervicalgiaL [address] s meghan term [place], (current) use [place] of opiate s, [place], analgesicEncoun [address] ter for . therapeutic tel:[phone] drug level [id number] monitoring OFFICE VISIT, [facility] low back Other [facility] spondylosis, [facility]. 7235 : R oy TELEMEDICINE Pain [place] (chief lumbar [address] SantiagoBeanHien, Clinic, complaint) regionPosEssentia Health, [address] e[address] [place], Rd [address] [place], syndrome, not [id number], 140, [place], elsewhere [place]. Lakesha DOUG, classifiedPain tel:284 , [place] , 410293347 in right ankle 85079 94090. , [place] and joints of tel: tel: right footPain 8405508 Ref 52185822 in left erring shoulderPain in Provider : left kneePain Faisal in right Will J, hipCervicalgiaL [address] s meghan term [place], (current) use [place] of [place]iate [place], [place], analgesic [address] . tel:[phone] OFFICE/OUTPAT [facility] low back Other Nov- Pedro Speci alist IENT VISIT, [facility] pain spondylosis, 0- [facility]. 7235 : Rohith EST Pain [place] (chief lumbar [address] [place] Hien, Clinic, complaint) [facility] [address] ectomy [place], Rd [address] [place], syndrome, not [id number], 140, [place], elsewhere [place]. Lakesha DOUG, classifiedPain tel:284 , [place] , [phone] in right ankle 34517 32616. , [place] and joints of tel: tel: right footPain 2472285 Ref 27617891 in left erring shoulderPain in Provider : left kneePain Faisal in right Will J, hipLong term [address] (current) use [place], of opiate [place] analgesicCervic s, [place], [place] [address] . 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 723 5 : Rohith EST Pain [place] (chief of opiate 0 [address] Hien Henderson, Clinic, complaint) analgesicPostla [place], [address] minectomy [place], Rd [address] [place], syndrome, not [id number], 140, [place], elsewhere US. Lakesha CAMACHO, classifiedPain tel:+[phone] , [place] , [phone] in right ankle 76454 [address]4627. , [place] and joints of tel: tel: right footPain 2458218 Ref 78050154 in left erring shoulderOther Provider: spondylosis, Faisal lumbar Will J, regionPain in [address] left kneePain [place], [place], [address] . tel:[phone] OFFICE VISIT, [facility] low back Postlaminectomy Branden[facility] pain syndrome, not [facility]. 7235 : Rohith TELEMEDICINE Pain [place] (chief elsewhere [address] Narendra Henderson r, Clinic, complaint) classifiedPain [place], [address] in right ankle [place], Rd [address] [place], and joints of 418731559, 140, [place], right footPain [place]. Margot mclaughlin [place], in left tel:284 , [place], [phone] shoulderLong [address]842 [address]. , [place] term (current) tel: 2 tel: use of opiate 5760405M ef 53048320 analgesicOther erring spondylosis, Provider: lumbar Faisal regionPain in Will J, left kneePain [address] in right hip [place], [address] . tel:[phone] OFFICE VISIT, [facility] low back Postlaminectomy Apr- [facility] pain syndrome, not - [facility]. 7235 : Rohith TELEMEDICINE Pain (chief elsewhere [address] Narendra Henderson r, Clinic, complaint) classifiedLow [place], [address] back painPain [place], Rd [address] [place], in right ankle 210745548, 140, [place], and joints of [place]. [place], right footLong tel:284 , DOUG , [phone] term (current) 93445 22588. , [place] use of opiate tel: tel: analgesicPain 7925267H ef 95538187 in left erring shoulder Provider: Faisal Calderón, [address] [place], [address] . tel:[phone] OFFICE/OUTPAT [facility] low back Postlaminectomy Kanga s Specialist IENT VISIT, [facility] pain syndrome, not 6-202 [facility]. 723 5 : Rohith EST Pain [place] (chief elsewhere 0 [facility] Hien Henderson, Clinic, complaint) classifiedLow [place] [address] [address] back painLong [place], Rd [address] [place], term (current) 086293529, 140, [place], use of opiate [place]. Lakesha CAMACHO, analgesicPain tel:4 , DOUG, [phone] in right ankle 74974 61124. , [place] and joints of tel: tel: right foot [phone] [phone] erring Provider: Faisal Calderón, [address] [place], [address] . tel:[phone] OFFICE/OUTPAT [facility] low back Postlaminectomy Kanga s Specialist IENT VISIT, [facility] pain syndrome, not 7-201 [facility]. 723 5 : Rohith EST Pain [place] (chief elsewhere 9 [facility] Hien Henderson, Clinic, complaint) classifiedLow [place], [address] back painPain [place], Rd [address] [place], in right 129549055, 140, [place], handLong term US. Lakesha CAMACHO, (current) use tel:284 , DOUG, [id number] of opiate 89668 79166. , [place] analgesic tel: tel: [phone] [phone] erring Provider: Faisal Calderón, [address] [place], [address] . tel:[phone] OFFICE/OUTPAT [facility] low back group home Oct-3 Pedro Spe cialist IENT VISIT, [facility] pain (current) use 0-201 [facility]. 723 5 : Rohith EST Pain [place] (chief of opiate [address] [place], Hien, Clinic, complaint) analgesicPostla [place], [address] minectomy [place], Rd [address] [place], syndrome, not [id number], 140, [place], elsewhere US. Lakesha CAMACHO, classifiedLow tel:+[phone] , [place], [phone] back pain 29613 78991. , [place] tel:+ tel:+ [phone] erring Provider: Faisal Calderón, 7235 [facility] [place], [address] . tel:[phone] OFFICE/OUTPAT [facility] low back Postlaminectomy Sep- Fransisco s Specialist IENT VISIT, [facility] pain syndrome, not 0-201 [facility]. 723 5 : Rohith EST Pain [place] (chief elsewhere [address] [place], Hien, Clinic, complaint) classifiedLow [place], [address] back painLong [place], Rd [address] [place], term (current) [id number], 140, [place], use of opiate [place]. Lakesha CAMACHO, analgesic tel:+[phone] , [place], [phone] [address]121 [address]. , [place] tel:+ tel:+ [phone] erring Provider: Faisal Calderón, 7235 [facility] [place], [address] . tel:[phone] OFFICE/OUTPAT [facility] low back Pain in right Jose-0 Pedro Specialist IENT VISIT, [facility] pain handLow back 1-201 [facility]. 7235 : Rohith EST Pain [place] (chief painPostlaminec [address] [place], Beanell er, Clinic, complaint) pricilla syndrome, [place], [address] not elsewhere [place], Rd [address] [place], classifiedEncou [id number], 140, [place], nter for [place]. Lakesha CAMACHO, therapeutic tel:284 , DOUG, [phone] drug level 49309 29817. , [place] monitoringLong tel: 2 tel: term (current) 1794494 Ref [id number] use of opiate erring analgesic Provider: Faisal Calderón, 7[address] [facility] [place], [address] . tel:[phone] OFFICE/OUTPAT [facility] low back Postlaminectomy Apr-2 Fransisco flores Specialist IENT VISIT, [facility] pain syndrome, not 9-201 [facility]. 723 5 : Rohith EST Pain [place] (chief elsewhere 9 [facility] [place] [facility], complaint) classifiedLow [place], [address] back painLong [place], Rd [address] [place], term (current) 429947724, 140, [place], use of opiate [place]. Lakesha CAMACHO, analgesicPain tel:4 , DOUG, [phone] in right hand 82573 75004. , [place] tel: tel: [phone] erring Provider: Faisal Calderón, [address] [facility] [place], [address] . tel:[phone] OFFICE/OUTPAT [facility] low back Intervertebral Mar-0 Pedro Specialist IENT VISIT, [facility] pain disc disorders 4-201 [facility]. 72 35 : Rohith EST Pain [place] (chief with 9 [facility] [place] [facility], complaint) myelopathy, [place], [address] lumbar [place], Rd [address] [place], regionLow back 776179018, 140, [place], painLong term [place]. [place] CAMACHO, (current) use tel:284 , DOUG, [phone] of opiate 37225 90945. , [place] analgesic tel: tel: [phone] erring Provider: Faisal Calderón, 7[address] [facility] B[place], [address] . tel:[phone] OFFICE/OUTPAT [facility] low back Postlaminectomy Dec- Fransisco flores Specialist IENT VISIT, [facility] pain syndrome, not [facility]. 723 5 : Rohith EST Pain [place] (chief elsewhere 8 [facility], complaint) classifiedInter [place], [address] vertebral disc [place], Rd [address] [place], disorders with [id number], 140, [place], myelopathy, [place]. [place], lumbar tel:+[phone] , [place], [phone] regionLow back 22586 31592. , [place] pain tel:+ tel:+ [phone] erring Provider: Faisal Calderón, [address] [facility] [place], [address] . tel:[phone] OFFICE/OUTPAT [facility] low back Postlaminectomy Nov-0 Fransisco flores Specialist IENT VISIT, [facility] pain syndrome, not [facility]. 723 5 : Rohith EST Pain [place] (chief elsewhere 8 [facility], complaint) classifiedInter [place], [address]373 [address] vertebral disc [place], Haven Clara [place], disorders with [id number], [address] [place], myelopathy, [place]. 306, [place], lumbar tel:+[phone] [place], [place], [phone] regionLow back [address]2987 [address]209. , [place] painLong term tel: tel: (current) use [phone] ef [phone] of opiate erring analgesic Provider: Faisal Calderón, [address] [facility] [place], [address] . tel:[phone] OFFICE/OUTPAT [facility] low back Postlaminectomy Kasey mclaughlin Specialist IENT VISIT, [facility] pain syndrome, not 8 Chuck. 14 55 : Rohith EST Pain [place] (chief elsewhere [address] [facility], complaint) classifiedLow [place] [address], [address] back pain [place], Haven A ve [place], [place], S [address] [place], [id number], 306, [place], [place]. DOUG [place], [id number] tel:[phone]. , [place] [address] tel: tel: [phone] erring Provider: Faisal Calderón, [address] Shir[address] [place], [address] . tel:[phone] OFFICE/OUTPAT [facility] low back Low back Jose-0 Pedro Spec ialist IENT VISIT, [facility] pain painPostlaminec 5-201 [facility]. 7 235 : Rohith EST Pain [place] (chief pricilla syndrome, 8 [address] [place], Narendra r, Clinic, complaint) not elsewhere [place], 73 73 [address] classified DOUG, Haven [place], [id number], S [address] [place], [place]. 306, [place], tel:+[phone] DOUG Coleman, [phone] [phone]. , [place] tel: tel: [phone] erring Provider: Faisal Calderón, [address] [place], [address] . tel:[phone] OFFICE/OUTPAT [facility] low back Low back May-0 Pedro Spec ialist IENT VISIT, [facility] pain painPostlaminec 3-201 [facility]. 7 235 : Rohith EST Pain [place] (chief pricilla syndrome, 8 [address] [place], Narendra r, Clinic, complaint) not elsewhere [place], 73 73 [address] classified DOUG, Haven [place], [id number], S [address] [place], [place]. 306, [place], tel:+[phone] DOUG Coleman, [phone] 81114 [phone]. , [place] tel: tel:+ [phone] erring Provider: Faisal Calderón, [address] [place], [address] . tel:[phone] OFFICE/OUTPAT [facility] low back Low back Mar-0 Pedro Spec ialist IENT VISIT, [facility] pain painPostlaminec 6-201 [facility]. 7 235 : Rohith EST Pain [place] (chief pricilla syndrome, [address] [place], Moelle r, Clinic, complaint) not elsewhere [place], 73 73 [address] classified DOUG, Haven Elizabeth [place], [id number], S [address] [place], [place]. 306, [place], tel:+[phone] [place], [place], [phone] [phone] 34489. , [place] tel:+ tel:+ [phone] erring Provider: Faisal Calderón, [address] [place]ores [place], [address] . tel:[phone] OFFICE/OUTPAT [facility] low back Low back Dennis-0 Pedro Spec ialist IENT VISIT, [facility] pain painPostlaminec [facility]. 7 235 : Rohith EST Pain [place] (chief pricilla syndrome, 8 [address] [place], Moelle r, Clinic, complaint) not elsewhere [place], 73 73 [address] classified DOUG, Haven Dimairis [place], [id number], S [address] [place], [place]. 306, [place], tel:+[phone] DOUG Coleman, [phone] 69240 [address]5977. , [place] tel:+ tel:+ [phone] erring Provider: Faisal Calderón, [address] JuniorDOUG brown, [address] . tel:[phone] OFFICE/OUTPAT [facility] low back Low back Nov-0 Pedro Spec ialist IENT VISIT, [facility] pain painPostlaminec [facility]. 7 235 : Rohith EST Pain [place] (chief pricilla syndrome, 7 [address] [place], Moelle r, Clinic, complaint) not elsewhere [place], 73 73 [address] classified DOUG, Haven Elizabeth [place], [id number], S [address] [place], [place]. 306, [place], tel:[phone] [place], [phone] [address]. , [place] tel:+ tel:+ [phone] erring Provider: Faisal Calderón, [address] [place], [address] . tel:[phone] OFFICE/OUTPAT [facility] low back Low back Sep-0 Pedro Spec ialist IENT VISIT, [facility] pain painPostlaminec 8 [facility]. 7 235 : Rohith EST Pain [place] (chief pricilla syndrome, 7 [address] [place], Beanelle r, Clinic, complaint) not elsewhere [place], 73 73 [address] classified DOUG, Haven Henderson, [id number], S [address] [place], [place]. 306, [place], tel:+[phone] DOUG Coleman, [phone] 56985 23811. , [place] tel: tel: [phone] erring Provider: Faisal Calderón, [address] [place], [address] . tel:[phone] OFFICE/OUTPAT [facility] low back Low back Jose-0 Pedro Spec ialist IENT VISIT, [facility] pain painPostlaminec 7 [facility]. 7 235 : Rohith EST Pain [place] (chief pricilla syndrome, 7 [address] [place], Beanelle r, Clinic, complaint) not elsewhere [place], 73 73 [address] classified DOUG, Haven Elizabeth [place], [id number], S Suite [place], [place]. 306, [place], tel:+[phone] DOUG Coleman, [phone] 97238 [address]. , [place] tel: tel: [phone] [phone] erring Provider: Faisal Calderón, [address] [place], [address] . tel:[phone] OFFICE/OUTPAT [facility] low back Low back pain May-0 Pedro Specialist IENT VISIT, [facility] pain 9 [facility]. 7235 : Ro y EST Pain [place] (chief 7 [address] Bean Hendersoneller, Clinic, complaint) [place], [address] DOUG, Haven Elizabeth [place], [id number], S [address] [place], [place]. 306, [place], tel:+[phone] DOUG Coleman, [phone] [phone] 57282. , [place] tel:+ tel:+ [phone] erring Provider: Faisal Calderón, [address] [place], [address] . tel:[phone] OFFICE/OUTPAT [facility] low back Low back pain Mar-1 Pedro Specialist IENT VISIT, [facility] pain 0-201 [facility]. 7235 : Ro y EST Pain [place] (chief 7 OhBean Joneseller, Clinic, complaint) [place], [address] [place], Haven [place], [id number], S [address] [place], [place]. 306, [place], tel:+[phone] DOUG Coleman, [phone]. , [place] tel:+ tel:+ [phone] erring Provider: Faisal Calderón, [address] [facility] [place], [address] . tel:[phone] OFFICE/OUTPAT [facility] low back Low back pain Dennis-0 Pedro Specialist IENT VISIT, [facility] pain 3-201 [facility]. 7235 : Ro y EST Pain [place] (chief 7 ArHien Jones, Clinic, complaint) [place], [address] [place], Haven [place], [id number], S [address] [place], [place]. 306, [place], tel:+[phone] DOUG Coleman, [phone]. , [place] tel: tel:+ [phone] erring Provider: Faisal Calderón, [address] [facility] [place], [address] . tel:[phone] OFFICE/OUTPAT [facility] low back Low back Nov-0 Pedro Spec ialist IENT VISIT, [facility] pain painPostlaminec 4-201 [facility]. 7 235 : Rohith EST Pain [place] (chief pricilla syndrome, [address] [place], Narendra r, Clinic, complaint) not elsewhere [place], 73 73 [address] classified DOUG, Haven Henderson, [id number], S [address] [place], [place]. 306, [place], tel:[phone] [place], [place], [phone] 96058. , [place] tel: tel: [phone] erring Provider: Faisal Calderón, [address] [place], [address] . tel:[phone] OFFICE/OUTPAT [facility] low back Low back Sep-0 Pedro Spec ialist IENT VISIT, [facility] pain painPain in [facility]. 7235 : Rohith EST Pain [place] (chief left shoulder 6 [address] Bean Hendersoneller , Clinic, complaint) [place], [address] [place], Haven [place], [id number], S [address] [place], [place]. 306, [place], tel:+[phone] DOUG Coleman, [phone] 97001 56426. , [place] tel: tel: [phone] erring Provider: Faisal Calderón, [address] [place], [address] . tel:[phone] OFFICE/OUTPAT [facility] low back Low back Jose-0 Pedro Spec ialist IENT VISIT, [facility] pain painPain in [facility]. 7235 : Rohith EST Pain [place] (chief left 6 [address] Bean Hendersoneller, Clinic, complaint) shoulderPain in [place], 7373 [address] right ankle and [place], Haven [place], joints of right [id number], S [address]iscilla te [place], foot [place]. 306, [place], tel:[phone] [place], [place], [phone] 38179. , [place] tel: tel: [phone] erring Provider: Faisal Calderón, [address] [place], [address] . tel:[phone] OFFICE/OUTPAT [facility] low back Low back May-0 Pedro Spec ialist IENT VISIT, [facility] pain painPain in [facility]. 7235 : Rohith EST Pain [place] (chief left shoulder [address] [place], Hien , Clinic, complaint) [place], [address] [place], Haven [address] [place], [id number], S Suite [place], [place]. 306, [place], tel:+4 [place], [place], [phone]. , [place] tel:+ tel:+ [phone] erring Provider: Faisal Calderón, [address] [place], [address] . tel:[phone] OFFICE/OUTPAT [facility] low back Low back Pedro Spec ialist IENT VISIT, [facility] pain painPain in [facility]. 7235 : Rohith EST Pain [place] (chief left shoulder 6 [address] [place], Hien , Clinic, complaint) [place], [address] [place], Haven Elizabeth [place], [id number], S Suite [place], [place]. 306, [place], tel:+ DOUG Coleman, [phone] 91892 29930. , [place] tel: tel: [phone] erring Provider: Faisal Calderón, [address] [place], [address] . tel:[phone] OFFICE/OUTPAT [facility] low back Low back [facility] Spec ialist IENT VISIT, [facility] pain painPain in [facility]. 7235 : Rohith EST Pain [place] (chief right ankle and 6 [address] [place], Moell er, Clinic, complaint) joints of right [place], 7373 [address] footPain in [place], Haven [address] [place], left shoulder [id number], S [address] [place], [place]. 306, [place], tel:+4 [place], [place], [phone]. , [place] tel:+ tel:+ [phone] erring Provider: Faisal Calderón, [address] [place], [address] . tel:[phone] OFFICE/OUTPAT [facility] low back Low back Nov-0 [facility] Spec ialist IENT VISIT, [facility] pain painPostlaminec 6 [facility]. 7 235 : Rohith EST Pain [place] (chief pricilla syndrome, 5 [address] [place], Beanelle r, Clinic, complaint) not elsewhere [place], 73 73 [address] classified [place], Haven [address] [place], [id number], S [address] [place], [place]. 306, [place], tel: [place], [place], [phone] 80735. , [place] tel: tel: [phone] OFFICE/OUTPAT [facility] low back Ankylosis of [facility] Specialist IENT VISIT, [facility] pain ankle and foot 4 [facility]. 72 35 : Rohith EST Pain [place] (chief jointDegenerati 5 [address] [place], Beananastacio er, Clinic, complaint) on of lumbar or [place], [address] lumbosacral [place], Haven [address] [place], intervertebral [id number], S [address] [place], discEnthesopath [place]. 306, [place], y of hip tel: DOUG Coleman, [phone] regionIntervert [phone]. , [place] ebral disc tel: tel: disorder with [phone] myelopathy, lumbar regionLumbagoPa in in joint involving ankle and footPain in joint involving lower legPostlaminect nikita syndrome of lumbar regionPain in joint involving shoulder region OFFICE/OUTPAT [facility] low back Ankylosis of [facility] Specialist IENT VISIT, [facility] pain ankle and foot 6-201 [facility]. 72 35 : Rohith EST Pain [place] (chief jointDegenerati 5 [address] [place] Beananastacio er, Clinic, complaint) on of lumbar or [place], [address]373 [address] lumbosacral [place], Haven [address] [place], intervertebral [id number], S Suit [address] [place], discEnthesopath [place]. 306, [place], y of hip tel: DOUG Coleman, [phone] regionIntervert [phone]. , [place] ebral disc tel: tel: disorder with [phone] myelopathy, lumbar regionLumbagoPa in in joint involving ankle and footPain in joint involving lower legPostlaminect nikita syndrome of lumbar region OFFICE/OUTPAT [facility] low back Acquired Pedro Spec ialist IENT VISIT, [facility] pain musculoskeletal 3-201 [facility]. 7 235 : Rohith EST Pain [place] (chief deformity of 5 [address] Bean Hendersoneller, Clinic, complaint) unspecified [place], 7373 7235 [facility] siteAnkylosis [place], Haven A ve [place], of ankle and [id number], S [address] [place], foot [place]. 306, [place], jointDegenerati tel: [place], [place], [phone] on of lumbar [place] [phone]. , [place] lumbosacral tel: tel: intervertebral [phone] discEnthesopath y of hip regionIntervert ebral disc disorder with myelopathy, lumbar regionLumbagoPa in in joint involving ankle and footPain in joint involving lower legPostlaminect nikita syndrome of lumbar region OFFICE/OUTPAT [facility] low back Ankylosis of Pedro Specialist IENT VISIT, [facility] pain ankle and foot 8 [facility]. 72 35 : Rohith EST Pain [place] (chief jointDegenerati 5 [facility] Bean Hendersonell er, Clinic, complaint) on of lumbar or [place], 7[address] lumbosacral [place], Haven [place], intervertebral [id number], S Suit [address] [place], discEnthesopath [place]. 306, [place], y of hip tel: [place], [place], [phone] regionIntervert [phone]. , [place] ebral disc tel: tel: disorder with [phone] myelopathy, lumbar regionLumbagoPa in in joint involving ankle and footPain in joint involving lower legPostlaminect nikita syndrome of lumbar region OFFICE/OUTPAT [facility] low back Degeneration of Fransisco s Specialist IENT VISIT, [facility] pain lumbar or 6-201 [facility]. 7235 : Rohith EST Pain [place] (chief lumbosacral 5 [address] Hien [place], Clinic, complaint) intervertebral [place], 7 373 [address] discEnthesopath [place], Haven [place], y of hip [id number], S [address] [place], regionIntervert [place]. 306, [place], ebral disc tel: [place], [place], [phone] disorder with [phone]. , [place] myelopathy, tel: tel: lumbar [phone] regionLumbagoPa in in joint involving ankle and footPain in joint involving lower legPostlaminect nikita syndrome of lumbar regionAnkylosis of ankle and foot joint OFFICE/OUTPAT [facility] Back Pain Ankylosis of Pedro Specialist IENT VISIT, [facility] (chief ankle and foot 0-201 [facility]. 72 35 : Rohith EST Pain [place] complaint) jointDegenerati 4 [facility] Bean Henderson, Clinic, on of lumbar or [place], 737 3 [address] lumbosacral [place], Haven [place], intervertebral [id number], S Suit [address] [place], discEnthesopath [place]. 306, [place], y of hip tel: [place], [phone] regionIntervert [phone]. , [place] ebral disc tel: tel: disorder with [phone] myelopathy, lumbar regionLumbagoPo stlaminectomy syndrome of lumbar region OFFICE/OUTPAT [facility] back pain Postlaminectomy Jayden jj Specialist IENT VISIT, [facility] (chief syndrome of 7201 [facility]. 7235 : Rohith EST Pain [place] complaint) lumbar 4 [facility] Hien Henderson, Clinic, regionPain in [place], [address] joint involving [place], Haven Dimae [place], ankle and [id number], [address] [place], footLumbago [place]. 306, [place], tel: [place], [place], [phone]. , [place] tel: tel: [phone] OFFICE/OUTPAT [facility] low back Postlaminectomy Sep- Monico Specialist IENT VISIT, [facility] pain syndrome of 9-201 Ayana. : Rohith EST Pain [place] (chief lumbar 4 [address] [facility], complaint) regionPain in [place], 7373 [address] joint involving [place], jatin Clara [place], ankle and foot [place], [address] [place], [id number], 306, [place], [place]. [place], [place], [id number] tel:[phone]. , [place] [address] tel: tel:+ [phone] OFFICE/OUTPAT [facility] back and Pain in joint Pedro Specialist IENT VISIT, [facility] right foot involving ankle 7-201 [facility] . 7235 : Rohith EST Pain [place] pain and footLumbago 4 [address] Olman Henderson, Clinic, (chief [place], 7373 [address] complaint) [place], Haven Dimairis [place], [id number], [address] [place], [place]. 306, [place], tel:+73080 [place], [phone] 90631 08180. , [place] tel: tel: [phone] OFFICE/OUTGAT [facility] back and Pain in joint Pedro Specialist IENT VISIT, [facility] right foot involving ankle 3-201 [facility] . 7235 : Rohith EST Pain [place] pain and 4 [address] Hien Henderson, Clinic, (chief footLumbagoPain [place], 737 3 7235 [address] complaint) in joint DOUG, Haven Elizabeth [place], involving lower [id number], [address] [place], leg [place]. 306, [place], tel:+[phone] [place], [place], [phone]. , [place] tel: tel: [phone] OFFICE/OUTPAT [facility] right foot Pain in joint Apr- Kanga s Specialist IENT VISIT, [facility] pain involving ankle 4-201 [facility]. 7 235 : Rohith EST Pain [place] (chief and footLumbago 4 [address] Olman Henderson er, Clinic, complaint) [place], 7373 [address] low back [place], Haven Che [place], pain [id number], S [address] [place], (chief [place]. 306, [place], complaint) tel:+[phone] Jose Coleman N, [phone] 06168. , [place] tel:+ tel:+ [phone] [place] [address] No Information Will Faisal. [facility] 8 [address] Pain [place] 4 [place], Clinic, [place], [address] [place], [place], [id number], [place], [place], tel:[phone] , [place] tel: [phone] OFFICE/OUTPAT [facility] right foot Pain in joint Will Faisal. Specialist IENT VISIT, [facility] pain involving ankle 3- 7235 [address] s : Rohith EST Pain [place] (chief and foot 4 [place], Hien, Clinic, complaint) [place], [address] [place], Haven Elizabeth [place], [id number], S Suite [place], [place]. 306, [place], tel:+[phone] [place], [place], [phone] 33746 26618. , [place] tel: tel: [phone] [place] [address] right foot Pain in joint No Spe [facility] pain involving ankle 2-201 Information : Rohith Pain [place] (chief and foot 3 Hien, Clinic, complaint) 7373 7235 [facility] Haven Clara Henderson, [address] [place], 306, [place], [place], [place], [id number] 08078. , [place] tel: tel:+ [phone] OFFICE/OUTPAT [facility] right foot Pain in joint Sep- No Specialist IENT VISIT, [facility] pain involving ankle 1- Informat ion : Rohith EST Pain [place] (chief and foot 3 Hien, Clinic, complaint) [address] Haven Henderson, [address] [place], 306, [place], [place], [place], [id number] [address]114. , [place] tel: tel: [phone] OFFICE/OUTPAT [facility] right foot Pain in joint No Specialist IENT VISIT, [facility] pain involving ankle 6-201 Informat ion : Rohith EST Pain [place] (chief and foot 3 Hein, Clinic, complaint) [address] Haven [place], [address] [place], 306, [place], [place], [place], [id number] 99578. , [place] tel: tel: [phone] OFFICE/OUTPAT [facility] right foot Pain in joint No Specialist IENT VISIT, [facility] pain involving ankle 9-201 Informat ion : Rohith EST Pain [place] (chief and 3 Hien, Clinic, complaint) footDegeneratio 7[address] n of lumbar or Haven Henderson, lumbosacral S [address] [place], intervertebral 306, [place], disc [place], [place], [id number] [address]222. , [place] tel: tel: [phone] OFFICE/OUTPAT [facility] right foot Pain in joint No Specialist IENT VISIT, [facility] pain involving ankle 0-201 Informat ion : Rohith EST Pain [place] (chief and foot 3 Hien, Clinic, complaint) [address] Haven Henderson [address] [place], 306, [place], [place], [place], [id number] 71816. , [place] tel: tel: [phone] OFFICE/OUTPAT [facility] right foot Pain in joint No Specialist IENT VISIT, [facility] pain involving ankle 1-201 Informat ion : Rohith EST Pain [place] (chief and foot 2 Hien, Clinic, complaint) [address] Haven Henderson [address] [place], 306, [place], [place], [place], [id number] [address]. , [place] tel: tel: [phone] OFFICE/OUTPAT [facility] right foot Pain in joint No Specialist IENT VISIT, [facility] pain involving ankle 4-201 Informat ion : Rohith EST Pain [place] (chief and foot 2 Hien, Clinic, complaint) [address] Haven Elizabeth [place], [address] [place], 306, [place], [place], [place], [id number] 00870. , [place] tel: tel: [phone] OFFICE/OUTPAT [facility] right foot Pain in joint Will Faisal. IENT VISIT, [facility] pain involving ankle 2-201 7235 Oh[address] s EST Pain [place] (chief and foot 2 [place], Clinic, complaint) [place], [address] [place], [id number], [place], [place], tel:[phone] , [place] tel: [phone] OFFICE/OUTPAT [facility] right foot Pain in joint Will Faisal. IENT VISIT, [facility] pain involving ankle 7-201 7235 Ohm s EST Pain [place] (chief and foot 2 [place], Clinic, complaint) [place], [address] [place], [id number], [place], [place]. [place], tel:[phone] [phone] , [place] tel: [phone] OFFICE/OUTPAT [facility] right foot Pain in joint Will Faisal. IENT VISIT, [facility] pain involving ankle 7-201 7235 Oh[address] s EST Pain [place] (chief and foot 2 [place], Clinic, complaint) [place], [address] DOUGSantiago, [id number], [place], [place]. [place], tel:[phone] 21254 , [place] tel: [phone] OFFICE/OUTPAT [facility] right foot Pain in joint Will Faisal. IENT VISIT, [facility] pain involving ankle 7-201 7235 Ohm s EST Pain [place] (chief and 2 [place], Clinic, complaint) footEnthesopath [place], [address] y of hip region Santiago [place], [id number], [place], [place], tel:[phone] 72287 , [place] tel: [phone] OFFICE/OUTPAT [facility] right foot Pain in joint Will Faisal. IENT VISIT, [facility] pain involving ankle 0-201 7235 Oh[address] s EST Pain [place] (chief and foot 1 [place], Clinic, complaint) [place], [address] [place], [place], [id number], [place], [place]. [place], tel: [phone] , [place] tel: [phone] OFFICE/OUTPAT [facility] right foot Pain in joint Will Faisal. IENT VISIT, [facility] pain and involving ankle 4-201 7235 Oh ms EST Pain [place] low back and 1 [place], Clinic, pain footInterverteb [place], [address] (chief ral disc [place], [place], complaint) disorder with [id number], [place], myelopathy, [place], lumbar region tel: [phone] , [place] tel: [phone] OFFICE/OUTPAT [facility] low back Intervertebral Will Harley dorman. IENT VISIT, [facility] pain disc disorder [address] EST Pain [place] (chief with 1 [place], Clinic, complaint) myelopathy, [place], [address] right foot lumbar [place], [place], pain regionPain in [id number], [place], (chief joint involving [place], complaint) ankle and foot tel: [phone] , [place] tel: [phone] OFFICE/OUTPAT [facility] right foot Pain in joint Will Faisal. IENT VISIT, [facility] pain involving ankle 8-201 7235 [facility] [facility] [place] (chief and 1 [place], Clinic, complaint) footInterverteb [place], [address] low back ral disc [place], [place], pain disorder with [id number], [place], (chief myelopathy, [place]. [place], complaint) lumbar region tel: [phone] , [place] tel: [phone] OFFICE/OUTPAT [facility] right foot Pain in joint Will Faisal. IENT VISIT, [facility] pain involving ankle 7-201 [address] [facility] [place] (chief and 1 [place], Clinic, complaint) footAcquired [place], [address] musculoskeletal [place], [place], deformity of [id number], [place], unspecified [place]. [place], site tel:[phone] , [place] tel:[phone] OFFICE/OUTPAT [facility] right foot Acquired Will Noah moulton IENT VISIT, [facility] pain musculoskeletal [address] [facility] [place] (chief deformity of 1 [place], Clinic, complaint) unspecified [facility] [address] sitePain in [place], [place], joint involving [id number], [place], ankle and foot [place], tel:[phone] , [place] tel: [phone] OFFICE/OUTPAT [facility] right foot Pain in joint Will IENT VISIT, [facility] pain involving ankle [address] [facility] [place] (chief and 0 [place], Clinic, complaint) footAcquired [place] [address] musculoskeletal [place], [place], deformity of [id number], [place], [place], site tel:[phone] , [place] tel: [phone] OFFICE/OUTGAT [facility] right foot Acquired Will Noah moulton IENT VISIT, [facility] pain musculoskeletal [address] [facility] [place] (chief deformity of 0 [place], Clinic, complaint) unspecified [facility] [address] [place], [place], joint involving [id number], [place], ankle and foot [place], tel:[phone] , [place] tel: [phone] OFFICE/OUTPAT [facility] right foot Acquired Will Noah moulton IENT VISIT, [facility] pain musculoskeletal [address] [facility] [place] (chief deformity of 0 [place], Clinic, complaint) unspecified [facility] [address] [place], [place], joint involving [id number], [place], ankle and [place], footAnkylosis tel:[phone] of ankle and 91393 , [place] foot joint tel: [phone] OFFICE/OUTPAT [facility] right foot Pain in joint Will IENT VISIT, [facility] pain involving ankle 3-201 [address] [facility] [place] (chief and 0 [place], Clinic, complaint) footAcquired [place], [address] musculoskeletal [place], [place], deformity of [id number], [place], [place], site tel:[phone] , [place] tel: [phone] [facility] right foot Acquired Will Faisal. [facility] pain musculoskeletal 7-201 [address] [facility] [place] (chief deformity of 0 [place], Clinic, complaint) unspecified [place], [address] [place], [place], joint involving [id number], [place], ankle and foot [place], tel:[phone] , [place] tel: [phone] OFFICE/OUTPAT [facility] foot pain Pain in joint Will A ndrew. IENT VISIT, [facility] (chief involving ankle 4-201 [address] [facility] [place] complaint) and 0 [place], Clinic, footAcquired [place] [address] [address] musculoskeletal [place], [place], deformity of [id number], [place], unspecified [place], siteAnkylosis tel:[phone] of ankle and [address] , [place] foot jointViral tel: [phone] OFFICE/OUTPAT [facility] right foot Pain in joint Will Faisal. IENT VISIT, [facility] pain involving ankle 0-200 [address] [facility] [place] (chief and 9 [place], Clinic, complaint) footAcquired [place] [address] [address] musculoskeletal [place], [place], deformity of [id number], [place], unspecified [place], siteAnkylosis tel:[phone] of ankle and [address] , [place] foot joint tel: [phone] [facility] Foot pain Pain in joint Will Faisal. [facility] (chief involving ankle 0-200 [address] [facility] [place] complaint) and 9 [place], Clinic, footAcquired [place], [address] musculoskeletal [place], [place], deformity of [id number], [place], unspecified [place], site tel:[phone] , tel:[phone] [facility] right foot Ankylosis of Will Faisal. [facility] pain ankle and foot 6-200 [address] [facility] [place] (chief joint 9 [place], Clinic, complaint) [place], [address] [place], [place], [id number], [place], [place]. [place], tel:[phone] , [place] tel:[phone] Family History Family Member Type Diagnosis Age At Onset Mother Problem (finding) back pain Payers Payer name Insurance type Covered green party ID Authorization(s ) [facility] MedicareComplete Replacement 16 [id number] Social History Type Description Quantity Date Captured Comments Alcohol Use Details No Caffeine Use Details Unknown Tobacco Use Status Current non-smoker Smoking Status Never smoker Non-Smoking Tobacco : No Details Available : No Details Available O Use Details Sex Female Vital Signs Date / Height Weight BMI Pulse Blood Temperature Respiratory Body Head Head Circ. Wt./[place]. BMI Pulse Inhaled Time: Rate Pressure Rate Surface Circumference Percenti le Percentile percentile Ox Ox Area in 1:50 PM Chief Complaint And Reason For Visit From encounter dated '12/06/2021 14:00'. low back pain (chief complaint). Description: Severity level is 4. Duration: chronic. The problem isworsening. It occurs intermittently. The client describes the pain as an ache and sharp. Symptoms are aggravated by bending, lifting, standing, twisting, walking, housework and prolonged positioning. Symptoms are relieved by ice, lying down, pain meds/drugs, rest and changing positions. Reason For Referral Reason For Referral No Information Plan Of Treatment Date Type Action Status Goal Weight. Due on due Goal Height. Due on due Goal Hepatitis C screening. Due on Oc due Goal AST (SGOT). Due on d ue Goal Review Allergy List. Due on due Goal Creatinine. Due on d ue Goal Tobacco Use. Due on due Goal UDT. Due on due Goal FIT-DNA. Due on due Goal Lipid panel. Due on due Goal OARS. Due on due Goal Order Annual PT. Due on due Goal Medication Reconciliation. Due o n due Goal PHARMACY TECHNICIAN PER DIEM Scanned. Due on due Goal Update Social History. Due on Oc due Goal Zoster vaccine (). Due on Nov due Goal ALT (SGPT). Due on d ue Goal CT-Colonography. Due on due Goal Unhealthy drug use screening. Du e on due Goal FIT. Due on due Goal TELEMETRY RN Paperwork. Due on due Goal PHQ-9. Due on due Goal OARS. Due on due Goal Tobacco Use. Due on due Goal Update Social History. Due on Se due Goal Zoster vaccine (1st). Due on Oct due Goal TELEMETRY RN Paperwork. Due on due Goal ALT (SGPT). [...] AST (SGOT). Due on d ue Goal PHARMACY TECHNICIAN PER DIEM Scanned. Due on due Goal Height. Due on due Goal Hepatitis C screening. Due on due Goal Unhealthy drug use screening. Du e on due Goal Weight. Due on due Goal Hepatitis C screening. Due on due Goal Medication Reconciliation. Due o n due Goal TELEMETRY RN Paperwork. Due on due Goal PHARMACY TECHNICIAN PER DIEM Scanned. Due on due Goal Weight. Due on due Goal Order Annual PT. Due on due Goal Update Social History. [...] due Goal Zoster vaccine (). Due on Oct due Goal Lipid panel. Due on due Goal AST (SGOT). Due on d ue Goal Zoster vaccine (). Due on Sep due Goal Unhealthy drug use screening. Du e on due Goal Order Annual PT. Due on due Goal PHARMACY TECHNICIAN PER DIEM Scanned. Due on due Goal Creatinine. Due on d ue Goal UDT. Due on due Goal OARS. Due on due Goal AST (SGOT). Due on d ue Goal ALT (SGPT). Due on d ue Goal TELEMETRY RN Paperwork. Due on due Goal Medication Reconciliation. Due o n due Goal Update Social History. Due on due Goal Hepatitis C screening. Due on due Goal Height. Due on due Goal Review Allergy List. Due on due Goal FIT-DNA. Due on due Goal Weight. Due on due Goal Tobacco Use. Due on due Goal Lipid panel. Due on due Goal CT-Colonography. Due on due Goal PHQ-9. Due on due Goal FIT. Due on due Goal Weight. Due on due Goal TELEMETRY RN Paperwork. Due on due Goal Height. Due on due Goal OARS. Due on due Goal ALT (SGPT). Due on d ue Goal Creatinine. Due on d ue Goal Lipid panel. Due on due Goal Hepatitis C screening. Due on due Goal UDT. Due on due Goal PHQ-9. Due on due Goal AST (SGOT). Due on d ue Goal Medication Reconciliation. Due o n due Goal Order Annual PT. Due on due Goal FIT-DNA. Due on due Goal PHARMACY TECHNICIAN PER DIEM Scanned. Due on due Goal FIT. Due on due Goal Review Allergy List. Due on due Goal Tobacco Use. Due on due Goal CT-Colonography. Due on due Goal Unhealthy drug use screening. Du e on due Goal Zoster vaccine (1st). Due on Sep due Goal Update Social History. Due on due Goal UDT. Due on due Goal Height. Due on due Goal OARS. Due on due Goal Creatinine. Due on d ue Goal PHARMACY TECHNICIAN PER DIEM Scanned. Due on due Goal TELEMETRY RN Paperwork. Due on due Goal Order Annual PT. Due on due Goal ALT (SGPT). Due on d ue Goal AST (SGOT). Due on d ue Goal Update Social History. Due on due Goal Zoster vaccine (). Due on Aug due Goal CT-Colonography. Due on due Goal [...] Review Allergy List. Due on due Goal FIT. Due on due Goal OARS. Due on due Goal AST (SGOT). Due on d ue Goal Order Annual PT. Due on due Goal Creatinine. Due on d ue Goal ALT (SGPT). Due on d ue Goal UDT. Due on due Goal PHARMACY TECHNICIAN PER DIEM Scanned. Due on due Goal TELEMETRY RN Paperwork. Due on due Goal Height. Due on due Goal FIT-DNA. Due on due Goal Lipid panel. Due on due Goal Update Social History. Due on due Goal Hepatitis C screening. Due on due Goal Tobacco Use. Due on due Goal Unhealthy drug use screening. Du e on due Goal Review Allergy List. Due on due Goal Weight. Due on due Goal PHQ-9. Due on due Goal Medication Reconciliation. Due o n due Goal CT-Colonography. Due on due Goal Zoster vaccine (1st). Due on Jul due Goal Height. Due on due Goal FIT. Due on due Goal Medication Reconciliation. Due o n due Goal Unhealthy drug use screening. Du e on due Goal Review Allergy List. Due on due Goal Zoster vaccine (1st). Due on June due Goal Update Social History. Due on due Goal PHQ-9. Due on due Goal CT-Colonography. Due on due Goal FIT-DNA. Due on due Goal Weight. Due on due Goal Lipid panel. Due on due Goal Creatinine. Due on d ue Goal OARS. Due on due Goal PHARMACY TECHNICIAN PER DIEM Scanned. Due on due Goal UDT. Due on due Goal ALT (SGPT). Due on d ue Goal Tobacco Use. Due on due Goal Order Annual PT. Due on due Goal Hepatitis C screening. Due on due Goal AST (SGOT). Due on d ue Goal TELEMETRY RN Paperwork. Due on due Goal Lipid panel. Due on due Goal Medication Reconciliation. Due o n due Goal PHQ-9. Due on due Goal CT-Colonography. Due on due Goal TELEMETRY RN Paperwork. Due on due Goal Weight. Due on due Goal Order Annual PT. Due on due Goal Hepatitis C screening. Due on due Goal AST (SGOT). Due on d ue Goal UDT. Due on due Goal Tobacco Use. Due on due Goal ALT (SGPT). Due on d ue Goal Update Social History. Due on due Goal Unhealthy drug use screening. Du e on due Goal PHARMACY TECHNICIAN PER DIEM Scanned. Due on due Goal Creatinine. Due on d ue Goal OARS. Due on due Goal FIT. Due on due Goal Review Allergy List. Due on due Goal Height. Due on due Goal FIT-DNA. Due on due Goal Zoster vaccine (1st). Due on May due Goal Review Allergy List. Due on due Goal Update Social History. Due on Ms due Goal PHQ-9. Due on due Goal Weight. Due on due Goal Medication Reconciliation. Due o n due Goal TELEMETRY RN Paperwork. Due on due Goal PHARMACY TECHNICIAN PER DIEM Scanned. Due on due Goal Order Annual [...] due Goal OARS. Due on due Goal TELEMETRY RN Paperwork. Due on due Goal Update Social History. Due on due Goal Review Allergy List. Due on due Goal Creatinine. Due on d ue Goal PHARMACY TECHNICIAN PER DIEM Scanned. Due on due Goal AST (SGOT). Due on d ue Goal ALT (SGPT). Due on d ue Goal UDT. Due on due Goal PHQ-9. Due on due Goal Height. Due on due Goal Medication Reconciliation. Due o n due Goal Tobacco Use. Due on due Goal Weight. Due on due Goal PHARMACY TECHNICIAN PER DIEM Scanned. Due on due Goal Tobacco Use. Due on due Goal Order Annual PT. Due on 022 due Goal TELEMETRY RN Paperwork. Due on due Goal PHQ-9. Due [...] due Goal OARS. Due on due Goal PHARMACY TECHNICIAN PER DIEM Scanned. Due on due Goal OARS. Due on due Goal AST (SGOT). Due on d ue Goal Update Social History. Due on due Goal Order Annual PT. Due on 021 due Goal UDT. Due on due Goal Creatinine. Due on d ue Goal Review Allergy List. Due on due Goal TELEMETRY RN Paperwork. Due on due Goal ALT (SGPT). Due on d ue Goal Weight. Due on due Goal Height. Due on due Goal PHQ-9. Due on due Goal Tobacco Use. Due on due Goal Medication Reconciliation. Due o n due Goal OARS. Due on due Goal Height. Due on due Goal PHARMACY TECHNICIAN PER DIEM Scanned. Due on due Goal Weight. Due on due Goal Review Allergy List. Due on due Goal TELEMETRY RN Paperwork. Due on due Goal Update Social History. Due on due Goal Creatinine. Due on d ue Goal Tobacco Use. Due on due Goal PHQ-9. Due on due Goal Medication Reconciliation. Due o n due Goal AST (SGOT). Due on d ue Goal Order Annual PT. Due on due Goal UDT. Due on due Goal ALT (SGPT). Due on d ue Goal OARS. Due on due Goal Medication Reconciliation. Due o n due Goal Update Social History. Due on Oc due Goal UDT. Due on due Goal Review Allergy List. Due on due Goal PHARMACY TECHNICIAN PER DIEM Scanned. Due on due Goal Height. Due on due Goal Creatinine. Due on d ue Goal TELEMETRY RN Paperwork. Due on due Goal Order Annual PT. Due on due Goal ALT (SGPT). Due on d ue Goal AST (SGOT). Due on d ue Goal Weight. Due on due Goal Tobacco Use. Due on due Goal PHQ-9. Due on due Goal ALT (SGPT). Due on d ue Goal TELEMETRY RN Paperwork. Due on due Goal PHQ-9. Due on due Goal Tobacco Use. Due on due Goal Update Social History. Due on Se due Goal OARS. Due on due Goal Weight. Due on due Goal PHARMACY TECHNICIAN PER DIEM Scanned. Due on due Goal UDT. Due on due Goal Medication Reconciliation. Due o n due Goal AST (SGOT). Due on d ue Goal Order Annual PT. Due on due Goal Height. Due on due Goal Creatinine. Due on d ue Goal Review Allergy List. Due on due Goal Weight. Due on due Goal OARS. Due on due Goal Order Annual PT. Due on due Goal Creatinine. Due on d ue Goal Height. Due on due Goal TELEMETRY RN Paperwork. Due on due Goal AST (SGOT). Due on d ue Goal Review Allergy List. Due on due Goal UDT. Due on due Goal PHARMACY TECHNICIAN PER DIEM Scanned. Due on due Goal ALT (SGPT). Due on d ue Goal Medication Reconciliation. Due o n due Goal Update Social History. Due on due Goal PHQ-9. Due on due Goal Tobacco Use. Due on due Goal Height. Due on due Goal Creatinine. Due on d ue Goal Order Annual PT. Due on due Goal OARS. Due on due Goal TELEMETRY RN Paperwork. Due on due Goal Weight. Due on due Goal Review Allergy List. Due on due Goal UDT. Due on due Goal ALT (SGPT). Due on d ue Goal PHARMACY TECHNICIAN PER DIEM Scanned. Due on due Goal PHQ-9. Due on due Goal Tobacco Use. Due on due Goal Medication Reconciliation. Due o n due Goal Update Social History. Due on due Goal AST (SGOT). Due on d ue Appointment Krys Lea BOOKED Appointment Krys Lea BOOKED Future Order: Lab Order COMPLIANCE DRUG ANALYSIS , URINE, WITH MED Ordered REPORT ([id number]), Ordered on: Future Order: Lab Order Drug Test Def [address]+ [address] (G0483), Ordered Ordered on: History Of Present Illness Encounter Date Complaint History Of Present I llness low back pain Severity level is 4. Duration: chronic. The problem is worsening . It occurs intermittently. The client describes the pain as an ache and sharp . Symptoms are aggravated by bending, lifting, standing, twisting, walking, housework a nd prolonged positioning. Symptoms are relieve d by ice, lying down, pain meds/drugs, res t and changing positions. Comments: Yola de paz nts for a follow up and medication refill re garding lower back pain.Infection on he r right heel has resolved. R ankle/fo ot, lower back, neck, and hip pain are current ly stable. Flares depending on travel/ activity level. Following with ortho regarding left shoulder pain/injections - st ates this has been worse. Participates in HEP as able. Accompanied by [...] si tting and changing positions. Comments: Yola brumfield for [...] a fternoon 10/09/21. Accompanied by her h band today. No further questions or concern s. [...] pain meds/drugs and changing positions. Comments: Yola baldev brumfield [...] HEP as able. Requesting cervical BOBO through [facility].Accompanied by her today. No fu [...] pain meds/dr ugs, rest and changing positions. Comments: Yola baldev brumfield [...] Participates in HEP as able. Inquires about [place] increase.Accom panied by her today. No further qu estions or concerns. low back pain (comments) Yola [...] Also recently completed a lumbar E SI. vermin exterminator results pending, but notes s he has [...] increase in Robaxin. Hip injections through ortho. Efe tan in HEP as able.Accompanied by her today. [...] her toe as well as a UTI. Efe tan in HEP as able.Accompanied by her today. [...] cent[facility]. R w rist has healed completely. Back, R ankle/foot, R hip, and L shoulder pain have r emained stable. Participates in HEP as able. No further questions or concern s. low back pain (comments) Yola presents v [...] elevating feet and topicals. low back pain Onset: gradual witho ut [...] PT at this time. Presents with #15 [place] and # 14 Methadone - on track. [...] with her orthopedist. Patient presents with #135.5 [place], and #14 Metha done - both are [...] Presents with #20 Me thadone and #108.5 [place] - on track. Reports current medication regimen [...] is here for a f/u. Has #74 [place] and #9 Methadone remaini ng - on track. Medications are effe ctive at relieving pain without SE. Krys's pain has been stable since last visit. Magdalena adame has been doing well with no major issues to address. Krys plans on going to [place] in [place] and wanted to make sure she can get her medi cations refilled. Krys continues to exercis e for pain relief. She has no other concern s to address. PT-N/AESI-N/ARF-not triedSCS-not tried Meds: Opioids-Currently ta kes [place] and Methadone Neuropathics-Current ly takes gabapentin Muscle Relaxant- Cur rently takes methocarbamol Anti-I nflammatories-N/AMedical Cannabis-not certifi ed low back pain Severity level is 9. Duration: chronic. The problem is changing in character. It occurs intermittently. Loca tion of pain is lower back.The patient kyle cribes the pain as an ache and sharp.The p atient denies aggravating factors. The patient denies relieving factors. low back pain (comments) Patient is here [...] other concerns today . low back pain (comments) Patient is her e for a f/u. Has #52 [place] and #7 Methadone remaini ng - on [...] pain as an ache, burning and sh daina. Symptoms are aggravated by ascend ing stairs, [...] up and medications refill. Presents wit h #7 methadone, #34 [place] - on track. Reports current medication regimen [...] are planning a trip [place] in [facility]. No other concerns today. low back pain [...] had a quite hor rible trip to [place]. No other concerns today . low back [...] up and medication refill. She has #100 [place] and #5 methadone remaining-surplus. T he patient states the current medication r egimen continues to be effective at reducin g pain without SE. She got an injetion from [facility] and it did not provide any relief f or her. She went to see her spine surgeon wh o discussed surgery with her. She tried gabap entin and reports she was very drowsy on it. S he may be interested in trying Lyrica. No ot her concerns today. low back pain (comments) Patient is here for f/u. Patient has #104 [place] and #10 methad one remaining - on track. Patient reports 50% pain relief with meds. Patient is stable on these medications. 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 Continues her daily PT exercises. She does injections at [facility]. I s going to [place] in November. No other concerns to day. [...] meds/drugs and changing positions. low back pain Severity level is se [...] She has # 8 methadone and #94.5 [place] remaining - on track/surplus. The patient reports feel ing about the same with no significant chavez es. She followed up with Dr. Comer who recomm ended back surgery but she is not intersted in pursuing this option at this time. The pa griffin states the current medication regimen c ontinues to be effective for reducing pain. S he expresses some interest in SCS. She will be going to [place] in November. The charlene ent states gabapentin [...] low back pain. She has # 71 [place] and #8 methadone remaining - on track [...] low back pain. She has # 88.5 [place] and #19 methadone remaining - on track/surplus. [...] low back pain. She has # 90 [place] and #19 methadone remaining - on track/surplus. [...] low back pain. She has # 63 [place] and #12 methadone remaining - on track/surplus. [...] She has # 18 methadone and #45 [place] remaining - on track. She continues PT for her shoulder and has noticed some benefit. She had a l umbar BOBO at [facility] which has provided minimal relief to this point. The patient states t he current medication regimen continues to be effective for reducing pain. She C O trouble sleeping even when she uses Trazod one. She continues PT regularly. She will be going on a trip to [place] this [place]. No other concerns today . [...] medication refill. She presents with #8 7.5 [place] and #20 methadone. She notif ied us of medication fill for s/p left shoulde r surgery. Patient reports a hospitaliz ations from dehydration and pneumonia. She c ontinues with biking and walking in the pool for activity; plans to restart pool exercis es. Completes PT for left shoulder. Her analy ross is present for today's visit. low back pain Severity level is mo [...] low back pain. She has # 63 [place] and #7 methadone remaining - on track . She will be having shoulder surgery wit h Dr. Engle next week. She didn't rec eive significant relief from her shoulder in jection. Otherwise she feels about the same with no significant changes. No other co ncerns today. low back pain (comments) Krys is here today for follow up evaluation and medication refil ls relating to her low back pain. She has # 47 [place] and #8 methadone remaining - on track [...] low back pain. She has # 31 [place], #22 methadone and #19 Trazodone re maining - on track. She will be going on vac ation this week to [place]. She has not noticed any relief from her BOBO yet. She just transi tioned to an E-cig. She continues home exerc ise. She has experiended good relief from her shoulder injection at [facility] so she has not f ollowed up [...] She an d her are going to [place] in [facility] er and she will need to come [...] flare since she had her epidural at [facility] last Thursday. States this has not happened [...] exercise program Reviewed medications Medications counted, patient has a surpl Continue current medication Follow exercise program Reviewed medications Continue current [...] Review of 2020 records from [facility] review her history of rheumatoid arthritis. assessment Pain in left shoulder impression Ongoing L shoulder pain; following up wi Dr. Weaver who performs her shoulder injections. Stable today. Reduced should pain with injections, current pain medic ation regimen and shoulder PT at home. assessment Pain in right hip impression R hip pain also stable. Benefit with rec ent bursa injection through ortho assessment Pain in left knee impression Ongoing left knee pain - following with ortho regarding this. Stable today assessment Pain in right ankle and joints of right foot impression R ankle/foot pain also stable. Pain flar es with walking assessment Other spondylosis, cervical region impression History of ongoing neck [...] has a history of cervical surgery. assessment group home (current) use of opiate analge sic impression Current treatment plan increases the pat ient's daily activity level and quality of life. Encouraged pa tient to participate in alternative therapies, conservative m [...] has enhanced the patient's quality of life. Mental Status Date Cognitive Assessment Orientation - Oriented to ti me, place, person, situation.Normal Orientation Patient Care Teams Name Effective Dates (start - stop) Status M embers No Information
--- OUTSIDE RECORDS SUMMARY | 2021-12-11 15:31 | XMS_ITS | Encounter Summary ---
:1950 Author Organization [place] Address [address] [facility] [place] [address] Care Team Providers Name Role Phone LeviIdalmis stahl Ann Primary Care Provider Madhav Matute MD Unavailable Encounter Details Date Type Department Care Team Description 05/14/2021 Medical Correspondence [facility] Scan, PHYSICAL THERAPY Health Info Mgmt Non-Provider ORDER [facility] [address] [place] [address] Social History Tobacco Use Types Packs/Day Years Used Date Smoking Tobacco: Never Smokeless Tobacco: Never Sex Assigned at Date Recorded Not on file documented as of this encounter Plan of Treatment Not on filedocumented as of this encounter Visit Diagnoses Not on filedocumented in this encounter Care Teams Quality Control Analyst Relationship Specialty Start Date End Date Idalmis Sloan PCP - General Family Practice 11/04/13 Madhav Matute MD Assigned Neuroscience 12/02/20 [id number] MARYANA BEGUM Provider [address] [place] [id number] documented as of this encounter
--- OUTSIDE RECORDS SUMMARY | 2021-12-11 15:32 | XMS_ITS | Encounter Summary ---
:1950 Author Organization [place] Address [facility] [place] [address] Care Team Providers Name Role Phone Idalmis Sloan Primary Care Provider Encounter Details Date Type Department Care Team Description 04/14/2019 Therapy Visit [facility] Bel[facility] Alva, Lumbar pain (Primary Rehabilitation Services CROSSING SUPERVISOR Dx) [facility] [address] [facility] [address] [place], [place] [address] Social History Tobacco Use Types Packs/Day Years [...] might increase back pain. Functionally has improved. ET SUPERVISOR Adiel Ramirez 04/14/2019 2:30 PM CST Assessment/Plan: ASSESSMENT/PLAN Updated [...] and time spent performing 1:1 timed codes. ET SUPERVISOR documented in this encounter Miscellaneous Notes Addendum Note - Adiel Ramirez - 04/14/2019 2:[address] SUPERVISOR Addended by: ADIEL RAMIREZ on: 04/15/2019 11:09 AM Modules accepted: Orders ET SUPERVISOR documented in this encounter Plan of Treatment Not on filedocumented as of this encounter Procedures Procedure Name Priority Date/Time Associated Diagnosis Comme [facility] Z THERAPEUTIC Routine 04/15/2019 10:52 AM Lumbar pain [address]IV[address]IES [address]RE[address] SUPERVISOR documented in this encounter Visit Diagnoses Diagnosis Lumbar pain - Primary Lumbago documented in this encounter Care Teams Detective Supervisor Relationship Specialty Start Date End Date Idalmis Sloan PCP - General Family Practice 11/04/13 documented as of this encounter
--- OUTSIDE RECORDS SUMMARY | 2021-12-11 15:32 | XMS_ITS | Encounter Summary ---
:1950 Author Organization [place] Address [facility] [place] [address] Care Team Providers Name Role Phone Idalmis [...] on filedocumented in this encounter Care Teams Cementer Machine Applicator Relationship Specialty Start Date End Date Idalmis Sloan PCP - General Family Practice 11/04/13 Ana Jacobs PA-C Assigned Neuroscience 11/04/20 12/01/20 [facility] Provider [id number] [id number] documented as of this encounter
--- OUTSIDE RECORDS SUMMARY | 2021-12-11 15:32 | XMS_ITS | Encounter Summary ---
:1950 Author Organization [place] Address [facility] [place] [address] Care Team Providers Name Role Phone Idalmis Sloan Primary Care Provider Encounter Details Date Type Department Care Team Description 02/16/[address] [facility] Jensen Hernandez, PT Lumbar pain Rehabilitation Services [id number] [facility] [address] [place] [address] [place] [address] Social History Tobacco Use Types Packs/Day Years Used Date Smoking Tobacco: Never Smokeless Tobacco: Never Sex Assigned at Date Recorded Not on file documented as of this encounter Progress Notes Jensen Hernandez, PT - 02/16/2019 3:20 PM CST [facility] Initial Evaluation Subjective: History of lumbar pain for years which has included 3 previous surgeries to her lower back. Pt can'trecall the dates of her surgeries. Pt noted pain of unknown etiology approximately 6 -8 weeks ago. Pt referred by MD for physical therapy on 12-29-18 The history is provided by the patient. No carbon brush maker was used. Type of problem: Lumbar Condition [...] Left: Moderate loss Right: Moderate loss Side Century: Left: Right: Strength: weak lower abdominals and [...] Sheet for this information) Short term and FDC goals: (See Goal Flow Sheet for this [...] time spent performing 1:1 timed codes. ET BINDER documented in this encounter Plan of Treatment Not on filedocumented as of this encounter Procedures Procedure Name Priority Date/Time Associated Diagnosis Comme [facility] ZZ THERAPEUTIC Routine 02/16/2019 6:42 PM HELMET BINDER Lumbar pain EXERCISES documented in this encounter Visit Diagnoses Diagnosis Lumbar pain Lumbago documented in this encounter Care Teams Sole Blacker Relationship Specialty Start Date End Date Idalmis Sloan PCP - General Family Practice 11/04/13 documented as of this encounter
--- OUTSIDE RECORDS SUMMARY | 2021-12-11 15:32 | XMS_ITS | Encounter Summary ---
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 [address] [facility] [address] [place] [address] Social History Tobacco Use Types Packs/Day Years Used Date Smoking Tobacco: Never Smokeless Tobacco: Never Sex Assigned at Date Recorded Not on file documented as of this encounter Plan of Treatment Not on filedocumented as of this encounter Procedures Procedure Name Priority Date/Time Associated Diagnosis Comme nts Z THERAPEUTIC Routine 03/09/2019 3:43 PM EVENT MANAGEMENT CONSULTANT Lumbar pain ACTIVITIES ZZ THERAPEUTIC Routine 03/09/2019 3:43 PM EVENT MANAGEMENT CONSULTANT Lumbar pain EXERCISES documented in this encounter Visit Diagnoses Diagnosis Lumbar pain - Primary Lumbago documented in this encounter Care Teams Field Scout Relationship Specialty Start Date End Date Idalmis Sloan PCP - General Family Practice 11/04/13 documented as of this encounter
--- OUTSIDE RECORDS SUMMARY | 2021-12-11 15:32 | XMS_ITS | Encounter Summary ---
:1950 Author Organization [place] Address [address] [place] [address] Care Team Providers Name Role Phone Idalmis [...] on filedocumented in this encounter Care Teams Project Manager/Design Manager Relationship Specialty Start Date End Date Idalmis Sloan PCP - General Family Practice 11/04/13 documented as of this encounter
--- OUTSIDE RECORDS SUMMARY | 2021-12-11 15:32 | XMS_ITS | Encounter Summary ---
:1950 Author Organization [facility] Address [facility] access [facility] [place] [address] Care Team Providers Name Role Phone Idalmis Sloan Primary Care Provider Reason for Visit Reason Comments Wound Infection Back Pain Nausea Diarrhea Auth/Cert Specialty Diagnoses / Procedures Referred By Contact Refer red To Contact Med Surg Diagnoses Cellulitis of right foot H/O Clostridium difficile infection Diarrhea, unspecified type Cellulitis of right foot Observation Dept [address] [place], [place] [address] Phone: Referral ID Status Reason Start Date Expiration Date Visits Requ ested Visits Authorized [id number] 1 1 Encounter Details Date Type Department Care Team Description 11/04/2018 - [facility] Codie Morales MD [facility] [address] [place] [id number] Cellulitis of right foot; 11/06/2018 [facility] Observation Chuck Cook MD [address] [place] [address] Diarrhea, unspecified type; Dept H/O Clostridium difficile in fection [address] [place] [address] Social History Tobacco Use Types [...] Branch PA-C - 11/06/2018 8:24 AM CDT [facility] Hospitalist Discharge Summary Date of Admission: 11/04/2018 [...] and Time Order Name Status Description 11/04/2018 1920 Blood culture Preliminary These results will be [...] difficile than other alternatives. Pain controlled with AD OPERATIONS COORDINATOR medications. No signs of sepsis. Diarrhea resolved while hospitalized, if recurrent suggest further outpatient work-up. Consultations This Hospital Stay None Code Status Full Code Time Spent on this Encounter I, Dayna Branch PA-C, personally saw the patient today and spent greater than 30 minutes discharging this patient. Dayna Branch PA-C [facility] Physical Exam Vital Signs: Temp: 97.5 ??F [...] Stephens PA-C - 11/05/2018 12:30 PM CDT [facility] Observation Unit Hospitalist Progress Note Name: Krys [...] regimen of Methadone 5 mg BID and Osceola 5-325 mg PRN TID #Diarrhea: reported 12 episodes of diarrhea the day prior to admission with only 2 episodes since arriving to the hospital. C diff negative. If increased diarrhea consider checking enteric panel. #Stable medical conditions: hypertension, hypercholesterolemia, GERD, PVD, hepatitis C, necessary AD OPERATIONS COORDINATOR medications have been resumed. DVT Prophylaxis: Ambulate [...] contact Infection Prevention with any questions/concerns at *[phone]. Erica Jolly, VIKASH Grisel Samson RN - 11/04/2018 10:04 PM CDT ROOM # 205 Living Situation (if not independent, order SW consult): Home with Facility name: books salesperson: Cheikh [phone] Activity level at baseline: Independent Activity level [...] Cook MD - 11/04/2018 9:58 PM CDT [facility] History and Physical Hospitalist Service Chuck oCok MD Krys Mosher Date of : 1950 [...] Full Code Primary Care Physician: Idalmis Sloan [phone] Chief Complaint: Swelling and redness of right foot History is obtained from Krys, Dr. Morales, and the medical record History of Present [...] Samson RN - 11/04/2018 8:36 PM CDT [facility] ED Nurse Handoff Report Krys Mosher is [...] 1. Lift room needed: No. Bariatric: No Manufacturing Project Manager Needed: No Isolation: yes. Infection: C-Diff Pending. [...] days. She also complains of back pain. ervin Briceño MD - 11/04/2018 3:52 PM CDT History [...] provider's statements to me. Diana López 11/04/2018 [facility] EMERGENCY DEPARTMENT Mervin Morales MD 11/04/18 1027 documented in this encounter Miscellaneous Notes Plan [...] Yes, SBA via gait belt and walker. Packer Operator Automatic Nurse Safe discharge environment identified: Yes Barriers [...] Return to near baseline physical activity: Yes Packer Operator Automatic Nurse Safe discharge environment identified: Yes Barriers [...] Return to near baseline physical activity: Yes Packer Operator Automatic Nurse Safe discharge environment identified: Yes Barriers [...] Pain status: Improved-controlled with oral pain medications. Osceola dose ordered 1x 4. Return to near baseline physical activity: Yes Up with SBA 1 walker Packer Operator Automatic Nurse Safe discharge environment identified: Yes Barriers [...] L foot,pain at 8 sharp and shooting. Osceola last at 1645, hx of chronic pain. thanks Plan of Care - Elizabeth Chong RN - 11/05/2018 3:31 PM CDT PRIMARY DIAGNOSIS: GENERIC NURSING OUTPATIENT/OBSERVATION GOALS TO BE MET BEFORE DISCHARGE: ADLs back to baseline: Yes Activity and level of assistance: Up with standby assistance. Pain status: Improved-controlled with oral pain medications. Return to near baseline physical activity: No Packer Operator Automatic Nurse Safe discharge environment identified: Yes Barriers [...] Return to near baseline physical activity: Yes Packer Operator Automatic Nurse Safe discharge environment identified: Yes Barriers [...] Return to near baseline physical activity: No Packer Operator Automatic Nurse Safe discharge environment identified: Yes Barriers to discharge: Yes Entered by: Elizabeth Chong 11/05/2018 9:32 AM Please review provider order for any additional goals. Nurse to notify provider when observation goals have been met and patient is ready for discharge. Chris of Nick - Grisel Samson RN - [...] to continue with antibiotics and manage symptoms. Packer Operator Automatic Nurse Safe discharge environment identified: Yes Barriers [...] to continue with antibiotics and manage symptoms. Packer Operator Automatic Nurse Safe discharge environment identified: Yes Barriers to discharge: No Entered by: Grisel Samson 11/05/2018 Please review provider order for any additional goals. Nurse to notify provider when observation goals have been met and patient is ready for discharge. Pharmacy-Admission Medication History - Lazara Fontenot RPH - 11/04/2018 11:35 PM CDT 11/05 Addendum: per clarification with patient, added Osceola 5-325 mg (1 tab TID prn) to [employer] AD OPERATIONS COORDINATOR med list. Left sticky note to provider to review additional med. Lazara Fontenot PharmCecyD. Admission medication history interview status for this patient is complete. See [facility] admission navigator for allergy information, prior to admission medications and immunization status. Medication history interview source(s):Patient Medication history resources (including written lists, pill bottles, clinic record):[facility] records from [facility] Changes made to [facility] medication list: Added: all Medication reconciliation/reorder completed [...] Signature Potassium 3.8 3.4 - 5.3 11/05/2018 [facility] mmol/L 5:50 PM CDT HOSPITAL Specimen Anatomical Collection Method Collection Time Receive d Time (Source) Location / / Volume Laterality Blood specimen 11/05/2018 5:27 PM 019 5:28 (specimen) CDT PM CDT Kelly Stephens PA-C LAB - BLOOD ORDERABLES Performing Organization Address City/State/ZIP Code Phon e Number M [facility] [address], [place] [address] [facility] [address] [phone] (ABNORMAL) CBC with platelets (11/05/2018 6:42 AM CDT) Analysis Performed At Patho logist Time Signature WBC 8.8 4.0 - 11.0 11/05/2018 [facility] 10e9/L 7:04 AM [facility] RBC Count 3.60 (L) 3.8 - 5.2 11/05/2018 [facility] 10e12/L 7:04 AM [facility] Hemoglobin 12.3 11.7 - 11/05/2018 [facility] 15.7 g/dL 7:04 AM [facility] Hematocrit 36.4 35.0 - 11/05/2018 [facility] 47.0 % 7:04 AM [facility] MCV 101 (H) 78 - 100 11/05/2018 [facility] fl 7:04 AM [facility] MCH 34.2 (H) 26.5 - 11/05/2018 [facility] 33.0 pg 7:04 AM [facility] MCHC 33.8 31.5 - 11/05/2018 [facility] 36.5 g/dL 7:04 AM [facility] RDW 12.9 10.0 - 11/05/2018 [facility] 15.0 % 7:04 AM [facility] Platelet Count 191 150 - 450 11/05/2018 [facility] 10e9/L 7:04 AM [facility] Specimen Anatomical Collection Method Collection Time Receive d Time (Source) Location / / Volume Laterality Blood specimen 11/05/2018 6:42 AM 019 6:43 (specimen) CDT AM CDT Chuck Cook MD LAB - BLOOD ORDERABLES Performing Organization Address City/State/ZIP Code Phon e Number [facility] [address] [place] [address] [facility] [address] [phone] (ABNORMAL) Basic metabolic panel (11/05/2018 6:42 AM CDT) P athologist Signature Sodium 137 133 - 144 11/05/2018 [facility] mmol/L 7:16 AM [facility] Potassium 3.3 (L) 3.4 - 5.3 11/05/2018 [facility] mmol/L 7:16 AM [facility] Chloride 101 94 - 109 11/05/2018 [facility] mmol/L 7:16 AM [facility] Carbon Dioxide 30 20 - 32 11/05/2018 [facility] mmol/L 7:22 AM [facility] Anion Gap 6 3 - 14 11/05/2018 [facility] mmol/L 7:22 AM [facility] Glucose 84 70 - 99 11/05/2018 [facility] [place] mg/dL 7:22 AM [facility] Urea Nitrogen 7 7 - 30 11/05/2018 [facility] mg/dL 7:22 AM [facility] Creatinine 0.79 0.52 - 11/05/2018 [facility] 1.04 mg/dL 7:22 AM [facility] GFR Estimate 77 >60 11/05/2018 [facility] mL/min/{1. 7:[address] [facility] 73_m2} HOSPITAL Comment: Non GFR Calc Starting 02/16/2018, serum creatinine ba sed estimated GFR (eGFR) will be calculated using the Chronic Kidney Dise [facility] Epidemiology Collaboration (CKD-EPI) equation. GFR Estimate If 89 >60 mL/min/{1.73_m2} 11/05/2018 7: 22 AM [facility] Comment: GFR Calc Starting 02/16/2018, serum creatinine ba sed estimated GFR (eGFR) will be calculated using the Chronic Kidney Dise [facility] Epidemiology Collaboration (CKD-EPI) equation. Calcium 8.2 (L) 8.5 - 10.1 mg/dL 11/05/2018 7:22 AM [facility] Specimen Anatomical Collection Method Collection Time Receive d Time (Source) Location / / Volume Laterality Blood specimen 11/05/2018 6:42 AM 019 6:43 (specimen) CDT AM CDT Chuck Cook MD LAB - BLOOD ORDERABLES Performing Organization Address City/State/ZIP Code Phon e Number [place] [address] [place] [address] [facility] [address] [place], [place] [address], [facility] [phone] [place] [address] [place] [address], [facility] Clostridium difficile toxin B PCR (11/04/2018 7:49 PM CDT) [facility] Method Time Signature Specimen Feces 11/04/2018 [facility] 7:49 PM CDT [facility] C Diff Toxin B Negative NEG^Negat 11/05/2018 [facility] sung 12:21 AM CDT [facility] Comment: Negative: Clostridium difficile target D NA sequences NOT detected, presumed negative for Clostridium difficile toxin B or the number of bacteria present may be below the limit of detection for the test. FDA approved assay performed using [employer] GeneXpert real-time PCR. A negative result does [...] Organization Address City/State/ZIP Code Phon e Number [address] [address] [facility] [address] [place] [address] [address], [facility] [phone] Blood culture (11/04/2018 4:35 PM CDT) [facility] Method Time Signature Specimen Blood Right INFECTIOUS [...] MICRO GENERAL ORDERABL ES Performing Organization Address City/[facility]/ZIP Code Phon e Number INFECTIOUS DISEASES [address] [place] [address] DIAG[facility]STIC LABORATORY, [facility] INFECTIOUS DISEASES [address] [place] [address], [place] [facility] (ABNORMAL) Basic metabolic panel (11/04/2018 4:35 PM CDT) P athologist Signature Sodium 136 133 - 144 11/04/2018 [place] mmol/L 7:48 PM [facility] Potassium 3.0 (L) 3.4 - 5.3 11/04/2018 [place] mmol/L 7:48 PM [facility] Chloride 97 94 - 109 11/04/2018 [facility] mmol/L 7:48 PM [facility] Carbon Dioxide 31 20 - 32 11/04/2018 [facility] mmol/L 7:54 PM [facility] Anion Gap 8 3 - 14 11/04/2018 [facility] mmol/L 7:54 PM [facility] Glucose 74 70 - 99 11/04/2018 [facility] mg/dL 7:54 PM [facility] Urea Nitrogen 8 7 - 30 11/04/2018 [facility] mg/dL 7:54 PM [facility] Creatinine 0.81 0.52 - 11/04/2018 [facility] 1.04 mg/dL 7:54 PM [facility] GFR Estimate 75 >60 11/04/2018 [place] mL/min/{1. 7:54 PM [facility] 73_m2} [facility] Comment: Non GFR Calc Starting 02/16/2018, serum creatinine ba sed estimated GFR (eGFR) will be calculated using the Chronic Kidney Dise [facility] Epidemiology Collaboration (CKD-EPI) equation. GFR Estimate If 87 >60 mL/min/{1.73_m2} 11/04/2018 7: 54 PM [facility] Comment: GFR Calc Starting 02/16/2018, serum creatinine ba sed estimated GFR (eGFR) will be calculated using the Chronic Kidney Dise [facility] Epidemiology Collaboration (CKD-EPI) equation. Calcium 9.0 8.5 - 10.1 mg/dL 11/04/2018 7:54 PM [facility] Specimen Anatomical Collection Method Collection Time Receive d Time (Source) Location / / Volume Laterality Blood specimen 11/04/2018 4:35 PM 019 7:31 (specimen) CDT PM CDT Mervin Morales MD LAB - BLOOD ORDERABLES Performing Organization Address City/State/ZIP Code Phon e Number [facility] [address], [place] [address] [facility] [address] [place], [place] [address] [place] [address] (ABNORMAL) CBC with platelets differential (11/04/2018 4:35 PM CDT) [facility] gist Method Time Signature WBC 9.9 4.0 - 11/04/2018 [facility] 11.0 7:35 PM [facility] 10e9/L [facility] RBC Count 4.22 3.8 - 5.2 11/04/2018 [facility] 10e12/L 7:35 PM [facility] Hemoglobin 14.3 11.7 - 11/04/2018 [facility] 15.7 g/dL 7:35 PM [facility] Hematocrit 42.9 35.0 - 11/04/2018 [facility] 47.0 % 7:35 PM [facility] MCV 102 (H) 78 - 100 11/04/2018 [facility] fl 7:35 PM [facility] MCH 33.9 (H) 26.5 - 11/04/2018 [facility] 33.0 pg 7:35 [facility] MCHC 33.3 31.5 - 11/04/2018 [facility] 36.5 g/dL 7:35 PM [facility] RDW 13.3 10.0 - 11/04/2018 [facility] 15.0 % 7:35 PM [facility] Platelet Count 233 150 - 450 11/04/2018 [facility] 10e9/L 7:35 PM [facility] Diff Method Automated 11/04/2018 [facility] Method 7:35 PM [facility] % Neutrophils 69.4 % 11/04/2018 [facility] 7:35 PM [facility] % Lymphocytes 23.2 % 11/04/2018 [facility] 7:35 PM [facility] % Monocytes 5.9 % 11/04/2018 [facility] 7:35 PM [facility] % Eosinophils 0.8 % 11/04/2018 [facility] 7:35 PM [facility] % Basophils 0.4 % 11/04/2018 [facility] 7:35 PM [facility] % Immature 0.3 % 11/04/2018 [facility] Granulocytes 7:35 PM [facility] Nucleated RBCs 0 0 /100 11/04/2018 [facility] [place] 7:35 PM [facility] Absolute 6.8 1.6 - 8.3 11/04/2018 [facility] [place] Neutrophil 10e9/L 7:35 PM [facility] Absolute 2.3 0.8 - 5.3 11/04/2018 [facility] Lymphocytes 10e9/L 7:35 PM [facility] Absolute 0.6 0.0 - 1.3 11/04/2018 [facility] [place] Monocytes 10e9/L 7:35 PM [facility] Absolute 0.1 0.0 - 0.7 11/04/2018 [facility] Eosinophils 10e9/L 7:35 PM [facility] Absolute 0.0 0.0 - 0.2 11/04/2018 [place] Basophils 10e9/L 7:35 PM [facility] Abs Immature 0.0 0 - 0.4 11/04/2018 [place] Granulocytes 10e9/L 7:35 PM [facility] Absolute 0.0 11/04/2018 [place] Nucleated RBC 7:35 PM [facility] Specimen Anatomical Collection Method Collection Time Receive d Time (Source) Location / / Volume Laterality Blood specimen 11/04/2018 4:35 PM 019 7:31 (specimen) CDT [facility] Mervin Morales MD LAB - BLOOD ORDERABLES Performing Organization Address City/State/ZIP Code Phon e Number [place] [address] [phone] documented in this encounter Visit Diagnoses Diagnosis Cellulitis of right foot Cellulitis and abscess of foot, except t oes Diarrhea, unspecified type H/O Clostridium difficile infection Personal history of other infectious and parasitic disease Cellulitis of right foot Cellulitis and abscess of foot, except t oes Diarrhea, unspecified type documented in this encounter Admitting Diagnoses Diagnosis [...] or improvement in physical function., Starting on Thu11/04/18 at 2149, Start with the lowest dose. [...] 40 mg 1001 (Given - Provider: Jesi Callahan RN) 40 mg, Oral, 2 TIMES DAILY, First dose on 11/06/18 at 0941 methadone (DOLOPHINE) tablet 5 mg 0153 ( Given - Provider: Grisel Samson, RN)08 (Given - Provider: Elizabeth Chong RN)2016 (Given - Provider: Osiris Cuellar, SANTOS) 08 (Given - Provider: Jesi guzman RN) 5 mg, Oral, 2 TIMES DAILY, First dose on Thu11/05/18 at 0053, Indication: Maintenance ondansetron (ZOFRAN) injection 4 mg (COMPLETED) 2001 ( Given - Provider: Dino Meraz RN) 4 mg, Intravenous, ONCE, Administer over 2-5 Minutes, [facility] 11/04/18 at 1959, For 1 dose, Irritant. For ordered IV doses 0.1-4 mg, give IV Push undiluted over 2-5 minutes. pantoprazole (PROTONIX) EC tablet 20 mg 1032 (Given - Provider: Elizabeth Chong RN) 0822 (Given - Provider: Jesi guzman RN) 20 [...] RN)2017 (Given - Provider: Osiris Cuellar, SANTOS) 0821 (Given - Provider: Jesi Callahan RN) 250 mg, Oral, 2 TIMES DAILY, First dose on Thu11/05/18 at 0936, Capsules may be opened and sprinkled on semisolid food or added to beverage. traZODone (DESYREL) tablet 50 mg 0026 (N ot Given - Provider: Grisel Samson, SANTOS - Reason: Patient sleeping)2248 (Given - Provider: Ashley Lyle RN) 50 mg, Oral, AT BEDTIME, First dose on Thu11/05/18 at 0001 Continuous Medication Order 11/04/2018 11/05/2018 11/06/2018 0.9% sodium chloride + KCl 20 mEq/L infusion () 2242 (New Bag - Provider: Grisel Samson, RN) 0800 (Stopped - Provider: Elizabeth Chong [...] RN) 0139 (Given - Provider: Jermain Teague, SANTOS)0821 (Given - Provider: Jesi Callahan, SANTOS) 1 [...] moderate to se ana maria pain, Starting Thu11/05/18 at 1857, For 1 dose, Maximum acetaminophen dose from all sources= 75 mg/kg/day not to exceed 4 grams HYDROmorphone (PF) (DILAUDID) injection 0.5 mg (CANCEL ED) 2000 (Given - Provider: iDno Meraz RN) 0.5 mg, Intravenous, EVERY 15 MIN PRN, 3 doses, Starting [facility] 11/04/18 at 1919, Until [facility] 11/04/18 at 2150, moderate to severe pain, For ordered IV doses 0.1-4 mg give IV Push undiluted. Administer each 2mg over 2-5 minutes. melatonin tablet 1 mg 1 mg, Oral, AT BEDTIME PRN, sleep, Start ing [facility] 11/04/18 at 2144, Do not give unless at least 6 hours of uninterrupted sleep is expected. naloxone (NARCAN) injection 0.1-0.4 mg 0.1-0.4 mg, Intravenous, EVERY 2 MIN PRN , opioid reversal, Starting [facility] 11/04/18 at 2144, For respiratory rate LESS [...] 22 42 (See Alternative - Provider: Grisel Samson, RN) 0839 (See Alternative - Provider: John Chong, SANTOS)1527 (See Alternative - Provider: Elizabeth Chong RN)2127 (See Alternative - Provider: Ashley Lyle RN) 0822 (See Alternative - Provider: Néstor Callahan, SANTOS) 4 mg, Intravenous, EVERY 6 HOURS PRN, na usea, vomiting, Administer over 2-5 Minutes, Starting [facility] 11/04/18 at 2144, This is Step 1 of nausea and vomiting management. If nausea not resolved in 15 minutes, go to Step 2 prochlorperazine (COMPAZINE ). Irritant. For ordered IV doses 0.1-4 mg, give IV Push undiluted over 2-5 minutes. ondansetron (ZOFRAN-ODT) ODT tab 4 mg(Linked Group 1) 2242 (Given - Provider: Grisel Samson RN) 0839 (Given - Provider: Elizabeth Chong, SANTOS)1527 (Given - Provider: Elizabeth Chong RN)2127 (Given - Provider: Ashley Lyle, SANTOS) 0822 (Given - Provider: Jesi Callahan, SANTOS) 4 mg, Oral, EVERY 6 HOURS PRN, [...] required. oxyCODONE (ROXICODONE) tablet 5 mg (CANCELED) 2242 (Gi nickolas - Provider: Grisel Samson RN) [...] 12 HOURS PRN, jim sea, vomiting, Starting [facility] 11/04/18 at 2149, This is Step 2 [...] tablet 50 mg 0044 (Given - P rovider: Grisel Samson RN) 50 mg, Oral, AT BEDTIME PRN, sleep, Starting Thu11/05/18 at 0000 Linked Groups Order Group 1: [...] Oral, EVERY 6 HOURS PRN, vomiting, Starting [facility] 11/04/18 at 2149
This is Step 2 of nausea and vomiting management. Give if nausea not resolved 15 minutes after giving ondansetron (ZOFRAN). If nausea not resolved in 15 minutes, go to Step 3 metoclopramide (REGLAN), if ordered.
Or prochlorperazine (COMPAZINE) Suppository 12.5 mgJump to med 12.5 mg, Rectal, EVERY 12 HOURS PRN, jim sea, vomiting, Starting [facility] 11/04/18 at 2149
This is Step 2 of nausea and vomiting management. Give if nausea not resolved 15 minutes after giving ondanset rei (ZOFRAN). If nausea not resolved in 15 minutes, go to Step 3 metoclopramide (REGLAN), if ordered.
documented in this encounter Care Teams Certified Rehabilitation Counselor Relationship Specialty Start Date End Date Idalmis Sloan PCP - General Family Practice 11/04/13 documented as of this encounter
--- OUTSIDE RECORDS SUMMARY | 2021-12-11 15:32 | XMS_ITS | Encounter Summary ---
:1950 Author Organization [facility] Address [address] [place] [address]. [place] [address] Care Team Providers Name Role Phone Idalmis Sloan Primary Care Provider Reason for Visit Diagnostic Imaging XR (Routine) - Closed Specialty Diagnoses / Procedures Referred By Contact Refer red To Contact Diagnoses Acute bilateral low back pain with left-sided sciatica Ana Jacobs PA-C Procedures XR Lumbar Bending Only 2/3 Views [facility] [address] [facility] [address] [place] [address] Referral ID Status Reason Start Date Expiration Date Visits Requ ested Visits Authorized [id number] Closed 10/29/2020 10/29/2021 1 1 Encounter Details Date Type Department Care Team Description 10/29/2020 Ancillary Procedure [facility] Ana Jacobs Acu te bilateral low Sports and Kieran PASamiC back pain with Orthopedic Care [facility] left-side d sciatica [facility] [address] [facility] [address] [place] [address] [place] [id number] Social History Tobacco Use Types Packs/Day Years [...] extension. JULIO CÉSAR HUITRON MD SYSTEM ID: ??[id number] Narrative 10/29/2020 4:29 PM CDT XR LUMBAR [...] extension. JULIO CÉSAR HUITRON MD SYSTEM ID: [id number] Ana Jacobs PA-C [facility] ORDER TRELL documented in this encounter Visit Diagnoses Diagnosis Acute bilateral low back pain with left- sided sciatica documented in this encounter Care Teams Forestry Aid Relationship Specialty Start Date End Date Idalmis Sloan PCP - General Family Practice 11/04/13 documented as of this encounter
--- OUTSIDE RECORDS SUMMARY | 2021-12-11 15:32 | XMS_ITS | Encounter Summary ---
:1950 Author Organization [facility] Address [address] [place] [address] Care Team Providers Name Role Phone Idalmis [...] on filedocumented in this encounter Care Teams Transit Survey Worker Relationship Specialty Start Date End Date Idalmis Sloan PCP - General Family Practice 11/04/13 documented as of this encounter
--- OUTSIDE RECORDS SUMMARY | 2021-12-11 15:32 | XMS_ITS | Encounter Summary ---
:1950 Author Organization [place] Address [address] [place] [address] Care Team Providers Name Role Phone Idalmis Sloan Primary Care Provider Encounter Details Date Type Department Care Team Description 04/06/2019 [facility] ([facility] [address] Dx) [address] [address] [address] [place] [address] (Work) [phone] Social History Tobacco Use Types Packs/Day Years Used Date Smoking Tobacco: Never Smokeless Tobacco: Never Sex Assigned at Date Recorded Not on file documented as of this encounter Plan of Treatment Not on filedocumented as of this encounter Procedures Procedure Name Priority Date/Time Associated Diagnosis Comme [facility] ZZ THERAPEUTIC Routine 04/06/2019 3:49 PM NEWSPAPER OR PERIODICAL EDITOR Lumbar pain EXERCISES documented in this encounter Visit Diagnoses Diagnosis Lumbar pain - Primary Lumbago documented in this encounter Care Teams Tumble Tailstock Turret Lathe Operator Relationship Specialty Start Date End Date Idalmis Sloan PCP - General Family Practice 11/04/13 documented as of this encounter
--- OUTSIDE RECORDS SUMMARY | 2021-12-11 15:32 | XMS_ITS | Encounter Summary ---
:1950 Author Organization [place] Address [address] [place] [address]. [place] [address] Care Team Providers Name Role Phone Idalmis Sloan Primary Care Provider Reason for Visit [facility] Physical Therapy (Routine) - Closed Specialty Diagnoses / Procedures Referred By Contact Refer red To Contact Physical Therapy Diagnoses >4, Back / Mercy Pedro @ [facility] Pain / BCBS Mercy Vasquez, STRAIGHT SLICING MACHINE OPERATOR Daniel Shi, PT Procedures SPINE INITIAL [facility] PAIN [facility] [address] [place] [address] [place] [address] [place] [address] Referral ID Status Reason Start Date Expiration Date Visits Requ ested Visits Authorized [id number] Closed 07/22/2017 03/01/2018 18 Encounter Details Date Type Department Care Team Description 02/16/2018 [facility] Services [address] [facility] [address] [place] [address] Drive [address] [address] [place] [address] (Work) [phone] Social History Tobacco Use Types Packs/Day Years Used Date Smoking Tobacco: Never Smokeless Tobacco: Never Sex Assigned at Date Recorded Not on file documented as of this encounter Plan of Treatment Not on filedocumented as of this encounter Visit Diagnoses Not on filedocumented in this encounter Care Teams Transportation Engineering Technician Relationship Specialty Start Date End Date Idalmis Sloan PCP - General Family Practice 11/04/13 documented as of this encounter
--- OUTSIDE RECORDS SUMMARY | 2021-12-11 15:32 | XMS_ITS | Encounter Summary ---
:1950 Author Organization [place] Address [address] [place] [address] Care Team Providers Name Role Phone Idalmis Sloan Primary Care Provider Encounter Details Date Type Department Care Team Description 02/[facility]2019 [facility] ([facility] [address] Dx) [address] [place] [address] [address] [address] [place] [address] (Work) [phone] Social History Tobacco Use Types Packs/Day Years Used Date Smoking Tobacco: Never Smokeless Tobacco: Never Sex Assigned at Date Recorded Not on file documented as of this encounter Plan of Treatment Not on filedocumented as of this encounter Procedures Procedure Name Priority Date/Time Associated Diagnosis Comme nts [facility] THERAPEUTIC Routine 02/21/2019 6:20 PM MARKETING ASSOCIATE Lumbar pain ACTIVITIES [facility] THERAPEUTIC Routine 02/21/2019 6:20 PM MARKETING ASSOCIATE Lumbar pain EXERCISES documented in this encounter Visit Diagnoses Diagnosis Lumbar pain - Primary Lumbago documented in this encounter Care Teams State'S Attorney Relationship Specialty Start Date End Date Idalmis Sloan PCP - General Family Practice 11/04/13 documented as of this encounter
--- OUTSIDE RECORDS SUMMARY | 2021-12-11 15:32 | XMS_ITS | Encounter Summary ---
:1950 Author Organization [place] Address [address] [place] [address] Care Team Providers Name Role Phone Idalmis [...] on filedocumented in this encounter Care Teams Director Of Institutional Giving Relationship Specialty Start Date End Date Idalmis Sloan PCP - General Family Practice 11/04/13 documented as of this encounter
--- OUTSIDE RECORDS SUMMARY | 2021-12-11 15:32 | XMS_ITS | Encounter Summary ---
:1950 Author Organization [place] Address [facility] [place] [address] Care Team Providers Name Role Phone Idalmis [...] on filedocumented in this encounter Care Teams Economic Developer Relationship Specialty Start Date End Date Idalmis Sloan PCP - General Family Practice 11/04/13 Ana Jacobs PA-C Assigned Neuroscience 11/04/20 12/01/20 [facility] Provider [address] [address] documented as of this encounter
--- OUTSIDE RECORDS SUMMARY | 2021-12-11 15:32 | XMS_ITS | Encounter Summary ---
:1950 Author Organization [place] Address [address] [place] [address] Care Team Providers Name Role Phone Idalmis [...] on filedocumented in this encounter Care Teams Intensive Care Nurse Relationship Specialty Start Date End Date Idalmis Sloan PCP - General Family Practice 11/04/13 documented as of this encounter
--- OUTSIDE RECORDS SUMMARY | 2021-12-11 15:32 | XMS_ITS | Encounter Summary ---
:1950 Author Organization [place] Address [address] [place] [address] Care Team Providers Name Role Phone Idalmis Sloan Primary Care Provider Mahdav Matute MD Unavailable Reason for Visit Reason Comments Diarrhea Auth/Cert Specialty Diagnoses / Procedures Referred By Contact Refer red To Contact Med Surg Diagnoses Constipation Generalized muscle weakness Coronary artery calcification Stercoral colitis Constipation with Fecal impaction Constipation Stercoral colitis Coronary artery calcification Generalized muscle weakness Observation Dept [address] [place], [place] [address] Phone: Referral ID Status Reason Start Date Expiration Date Visits Requ ested Visits Authorized [id number] 1 1 Encounter Details Date Type Department Care Team Description 12/16/2020 - [facility] Caleb Dawn PA-C [facility] [address] [place], [place] [address] Constipation with Fecal impaction; 12/18/2020 [facility] Observation Amando Ross MD [facility] [address] [place] [address] Stercoral colitis; Dept Lisandro Crawford MD [address] [place], [place] [address] Coronary artery calcification; [address] [place] [address] Social History Tobacco Use Types [...] Brar PA-C - 12/18/2020 10:20 AM CDT [facility] Hospitalist Discharge Summary Date of Admission: 12/16/2020 [...] minutes discharging this patient. Uma Brar PA-C [facility] OBSERVATION DEPT [address] [facility] [address] Physical Exam Vital Signs: Temp: 97.6 ??F [...] Most Recent 3 BMP's:Recent Labs Lab Test 12/18/20 0718 12/18/2017 12/16/20213711/05/18 1727 11/05/18 0642 11/05/18 0642 NA [...] EXAM: CT ABDOMEN PELVIS W CONTRAST LOCATION: [facility] DATE/TIME: 12/16/2020 11:23 PM INDICATION: [...] x2 and crackers. BG 107 on recheck. ELLT Uma Brar PA-C - 12/17/2020 12:12 PM CDT Admitted [...] now. Reassess bowel regimen in AM. Uma J. Kingzett, PA-C Jacky Mejia RN - 12/17/2020 3:03 AM CDT ROOM # 231 Living Situation (if not independent, order SW consult): Home w/ Facility name: wagon person: - Cheikh Activity level at baseline: Ind [...] Crawford MD - 12/17/2020 2:17 AM CDT [facility] History and Physical - Hospitalist Service [...] Code Status: Full Code Lisandro Crawford MD [facility] Securely message with the [employer] (learn more here) Text page via Venuefox Paging/Directory Chief Complaint Diarrhea History is obtained [...] EXAM: CT ABDOMEN PELVIS W CONTRAST LOCATION: [facility] DATE/TIME: 12/16/2020 11:23 PM INDICATION: [...] opioid use. Rectal disimpaction unsuccessful. Success with [place] lady enema and Relistor. Now with large [...] M62.81 Amando Ross MD 12/17/20 0139 Lavern Carvajal, SANTOS - 12/17/2020 1:16 AM CDT Bed: ED01 Expected date: Expected time: Means of arrival: Comments: 35 Jacky Mejia RN - 12/17/2020 1:14 AM CDT [facility] ED Nurse Handoff Report Krys Mosher is [...] 1. Lift room needed: No. Bariatric: No School Counsellor Needed: No Isolation: No. Infection: Not Applicable. [...] Status --------- ------ CBC with platelets and d...[[id number]] Abnormal Final result Please view results for [...] solution 500 mL (78 mLs Intravenous Given 10/17/21 2325) Sodium Chloride 0.9 % Bag 500mL for [...] Quinolones Sulfa Drugs Lorazepam Medications: Nexium Lasix [place] Methadone Zocor Trazodone Florastor Past Medical History: [...] 2330 121/70 -- -- -- -- -- 10/17/21 2300 -- -- -- -- -- 90 [...] Status --------- ------ CBC with platelets and d...[[id number]] Abnormal Final result Please view results for [...] Scan Flush Use (59 mLs Intravenous Given 12/16/202324) pink lady enema (COMPOUNDED: docusate, magnesium citrate, [...] Return to near baseline physical activity: Yes Deputy Juvenile Officer Nurse Safe discharge environment identified: Yes Barriers [...] for discharge by consultants (if involved): N/A Deputy Juvenile Officer Nurse Safe discharge environment identified: Yes, home w/ Barriers to discharge: Yes Entered by: Elfego Randall 12/18/2020 5:51 AM Vitals are Temp: 97.9 ??F (36.6 ??C) Temp src: Oral BP: (!) 158/98 Pulse: 79 Resp: 20 SpO2: 95 %. Patient is alert and oriented. Up SBA w/walker. On a regular diet. 8/10 chronic back and left hip pain. On scheduled methadone and prn [place]. PIV SL. Continuing supportive cares. Likely home today. Please review provider order for any additional goals. Nurse to notify provider when observation goals have been met and patient is ready for discharge. Plan of Care - Elfego Randall - 12/18/2020 12:15 AM CDT PRIMARY DIAGNOSIS: GENERALIZED WEAKNESS/ Constipation OUTPATIENT/OBSERVATION GOALS TO BE MET BEFORE DISCHARGE 1. Orthostatic performed: N/A 2. Tolerating PO medications: Yes 3. Return to near baseline physical activity: Currently SBA w/walker 4. Cleared for discharge by consultants (if involved): N/A Deputy Juvenile Officer Nurse Safe discharge environment identified: Yes, home w/ Barriers to discharge: Yes Entered by: Elfego Randall 12/18/2020 12:51 AM Vitals are Temp: 97.5 ??F (36.4 ??C) Temp src: Oral BP: 139/76 Pulse: 74 Resp: 16 SpO2: 97 %. Patient is alert and oriented. Up SBA w/walker. On a regular diet. Rectal pain 7/10 on pain reassessment. Continuing with ice pack. On scheduled methadone with prn [place] for chronic pain. PIV SL. Ambulated hallways [...] for discharge by consultants (if involved): N/A Deputy Juvenile Officer Nurse Safe discharge environment identified: Yes, home w/ Barriers to discharge: Yes Entered by: Elfego Randall 12/17/2020 11:27 PM Vitals are Temp: 98.4 ??F (36.9 ??C) Temp src: Oral BP: 110/76 Pulse: 84 Resp: 16 SpO2: 96 %. Patient is Alert and Oriented x4. Up SBA w/walker. On a regular diet. Reports 9/10 rectal discomfort. Ice applied. On scheduled methadone. Prn [place] also given. PIV SL. Up to bathroom [...] 7. Provider specific discharge goals met: yes Deputy Juvenile Officer Nurse Safe discharge environment identified: Yes Barriers [...] 7. Provider specific discharge goals met: Yes Deputy Juvenile Officer Nurse Safe discharge environment identified: Yes Barriers to discharge: Yes, does not feel able to get up and use the toilette so many times Entered by: Reggie Langford 12/17/2020 12:58 PM Please review provider order for any additional goals. Nurse to notify provider when observation goals have been met and patient is ready for discharge. Pharmacy-Admission Medication History - Lazara Fontenot, [facility] - 12/17/2020 10:24 AM CDT Admission medication history interview status for this patient is complete. See [facility] admission navigator for allergy information, prior to admission medications and immunization status. 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 Patient has Medicare D through [employer]. Movantik: Not covered. Relistor: Not covered. Amitiza: $47/mo. Dea Torres, Powerhouse Electrician Apprentice/Liaison, Discharge Pharmacy [phone] Plan of Care - Reggie Langford RN - 12/17/2020 9:02 AM CDT PRIMARY DIAGNOSIS: dehydration/weakness OUTPATIENT/OBSERVATION GOALS TO BE MET BEFORE DISCHARGE: 1. Stable vital signs Yes 2. Tolerating diet:Yes 3. Pain controlled with oral pain medications: Yes 4. Positive bowel sounds: Yes 5. Voiding without difficulty: Yes 6. Able to ambulate: Yes 7. Provider specific discharge goals met: Yes Deputy Juvenile Officer Nurse Safe discharge environment identified: Yes Barriers [...] Return to near baseline physical activity: No Deputy Juvenile Officer Nurse Safe discharge environment identified: Yes Barriers [...] diet. C/o 8/10 left shoulder pain, PRN [place] administered. NS running at 100mL/hr. C/o SOB [...] Code Phon e Number [place] [address] Care Lab [address] Lab (1st floor, no room number) [...] City/State/ZIP Code [place] [phone] Care Lab [address] Lab (1st floor, no room number) [...] Address City/State/ZIP [place] [address] Care Lab [address] Lab (1st floor, no room number) [...] exposure or clinical presentation sugges ts COVID-19. ??[facility] are certified under the Clinical Laborat ory Improvement Amendments of 1988 (CLIA-88) as qualified to perform moderate and/or high complexity laboratory testing. Caleb Dawn PA-C LAB - MICRO GENERAL ORDERAB LES Performing Organization Address City/State/[place] [address] [facility] [address] [facility] ([facility], no room [...] EXAM: CT ABDOMEN PELVIS W CONTRAST LOCATION: [facility] DATE/TIME: 12/16/2020 11:23 PM INDICATION: [...] EXAM: CT ABDOMEN PELVIS W CONTRAST LOCATION: [facility] DATE/TIME: 12/16/2020 11:23 PM INDICATION: [...] platelets and differential (12/16/2020 9:38 PM CDT) [facility] Method Time Signature WBC Count 11.1 [...] LAB - BLOOD ORDERABLES Performing Organization Address City/[facility]/[place] [phone] Care Lab [address] Lab (1st floor, no room number) [...] LAB - BLOOD ORDERABLES Performing Organization Address City/[facility]/[place] [address] Care Lab [address] Lab (1st floor, no room number) (ABNORMAL) Comprehensive metabolic panel (12/16/2020 9:38 PM CDT) [facility] Method Time Signature Sodium 134 133 - 144 12/16/2020 LABORATORY mmol/L 10:01 PM CDT Potassium 4.1 3.4 - 5.3 12/16/2020 LABORATORY mmol/L 10:01 PM CDT Chloride 100 94 - 109 12/16/2020 LABORATORY mmol/L 10:01 PM CDT Carbon Dioxide [...] CDT Glucose 89 70 - 99 12/16/2020 LABORATORY mg/dL 10:01 PM CDT Alkaline 89 40 - 150 12/16/2020 [facility] Phosphatase U/L 10:01 PM CDT AST 23 0 - 45 U/L 12/16/2020 [facility] 10:01 PM CDT ALT 43 0 - 50 U/L 12/16/2020 [facility] 10:01 PM CDT Protein Total 6.2 (L) 6.8 - 8.8 12/16/2020 LABORATORY g/dL 10:01 PM CDT Albumin 3.2 (L) 3.4 - 5.0 12/16/2020 [facility] g/dL 10:01 PM CDT Bilirubin Total 0.7 0.2 - 1.3 12/16/2020 [facility] mg/dL 10:01 PM CDT GFR Estimate >90 >60 12/16/2020 [facility] mL/min/1.7 10:01 PM CDT 3m2 Comment: [...] City/State/ZIP Code [place] [address] Care Lab [address] Lab (1st floor, no room number) documented in this encounter Visit Diagnoses Diagnosis Constipation with Fecal impaction Unspecified constipation Stercoral colitis Coronary artery calcification Generalized muscle weakness Muscle weakness (generalized) Constipation Unspecified constipation Generalized muscle weakness Muscle weakness (generalized) Coronary artery calcification Stercoral colitis documented in this encounter Admitting Diagnoses Diagnosis [...] tab let 1122 (Given - Provider: Reggie Langford RN)1953 (Given - Provider: Elfego Randall) 0756 (Given - Provider: Linda Avery RN) 1 tablet, Oral, 2 TIMES DAILY, First dose on Thu12/17/20 at 080 0 enoxaparin ANTICOAGULANT (LOVENOX) injection 40 mg 1008 (Given - Provider: Reggie Langford RN) 0834 (Not Given - Provider: Linda Avery RN - Reason: Patient/family refused) 40 mg, Subcutaneous, EVERY 24 HOURS, First dose on Thu12/17/20 at 0900 fentaNYL (PF) (SUBLIMAZE) injection 50 mcg (COMPLETED) 2245 (Given - Provider: Kendal Ann RN) 50 mcg, Intravenous, ONCE, On Thu12/16/20 at 2230, For 1 dose furosemide (LASIX) tablet 40 mg 1202 (Given - Pr ovider: Reggie Langford RN) 0834 (Given - Provider: Linda Avery RN) 40 mg, Oral, DAILY, First dose on [...] Comment: Bulk) 500 mL, Intravenous, ONCE, On Thu12/16/20 at [...] T Tonia) 0756 (Given - Provider: Linda Avery RN) 5 mg, Oral, 2 TIMES DAILY, First dose on Thu12/17/20 at 0800, Indication: Maintenance methylnaltrexone (RELISTOR) injection 12 mg (COMPLETED) 0010 (Given - Provider: Cristina Fraga RN) 12 mg, Subcutaneous, ONCE, On Thu12/17/20 at 0000, For 1 dose multivitamin w/minerals (THERA-VIT-M) tablet 1 tablet 1122 (Given - Provider: Reggie Langford RN) 0756 (Given - Provider: Linda dobbs RN) 1 tablet, Oral, DAILY, First dose on [...] Mejia RN)0834 (Rate/Dose Verify - Provider: Reggie Langford, RN)1254 (Stopped - Provider: Reggie Langford, SANTOS) at 100 mL/hr, Intravenous, CONTINUOUS, S tarting [...] tabl et 033 (Given - Provider: Jacky Mejia RN)111 (Given - Provider: Reggie Langford RN)1958 (Given [...] Both Eyes, 2 TIMES DAILY PRN, al lauragifalguni, Starting on Thu12/17/20 at 1126, May use [...] HOURS PRN, vomiting, Starting on Thu12/17/20 at 0245
This is Step 2 of nausea and vomiting management. Give if nausea not resolved 15 minutes after giving ondansetron (ZOFR AN). If nausea not resolved in 15-3 0 minutes, Notify provider.
Or prochlorperazine (COMPAZINE) suppository 12.5 mgJump to med 12.5 mg, Rectal, EVERY 12 HOURS PRN, jim sea, vomiting, Starting on Thu12/17/20 at 0245
This is Step 2 of nausea and vomiting management. Give if nausea not resolved 15 minutes after giving ond ansetron (ZOFRAN). If nausea not re solved in 15-30 minutes, Notify provider.
documented in this encounter Additional Health Concerns Infection Onset Date Last Indicated Resolved Time Rule Out C-difficile 12/17/2020 12/17/2020 12/17/2020 2:59 AM CDT documented as of this encounter Care Teams Retail Field Representative Relationship Specialty Start Date End Date Idalmis Sloan PCP - General Family Practice 11/04/13 Madhav Matute MD Assigned Neuroscience 12/02/[address] [place] Provider [address] [place] [address] documented as of this encounter
--- OUTSIDE RECORDS SUMMARY | 2021-12-11 15:32 | XMS_ITS | Encounter Summary ---
:1950 Author Organization [place] Address [facility] [place] [address] Care Team Providers Name Role Phone Idalmis Sloan Primary Care Provider Reason for Referral Diagnostic Imaging XR (Routine) - Closed Specialty Diagnoses / Procedures Referred By Contact Refer red To Contact Diagnoses Acute bilateral low back pain with left-sided sciatica Ana Jacobs PA-C Procedures XR Lumbar Bending Only 2/3 Views [facility] [place] [address] Referral ID Status Reason Start Date Expiration Date Visits Requ ested Visits Authorized [id number] Closed 10/29/2020 10/29/2021 1 1 Diagnostic Imaging XR (Routine) - Closed Specialty Diagnoses / Procedures Referred By Contact Refer red To Contact Diagnoses Acute bilateral low back pain with left-sided sciatica Ana Jacobs PA-C Procedures XR Spine Complete Scoliosis 2 Views [facility] [place] [address] Referral ID Status Reason Start Date Expiration Date Visits Requ ested Visits Authorized [id number] Closed 10/29/2020 10/29/2021 [address] Scan (Routine) - Closed Specialty Diagnoses / Procedures Referred By Contact Refer red To Contact Diagnoses Acute bilateral low back pain with left-sided sciatica Ana Jacobs PA-C Procedures CT Lumbar Spine w/o Contrast [facility] [address] [place] [address] Referral ID Status Reason Start Date Expiration Date Visits Requ ested Visits Authorized [id number] Closed 10/29/2020 10/29/2021 1 1 Reason for Visit Reason Comments Consult Low back pain; L hip pain Neurologic Problem Encounter Details Date Type Department Care Team Description 10/29/2020 Office Visit [facility] [place] [address] [place] [address] Acute bilateral low back pain with left- sided sciatica (Primary Dx); [facility] Neurosurgery Ana Jacobs PA-C [facility] [address] [id number] Lumbar radiculopathy [facility] [place] [id number] [place] [address] Drive [address] [place] [phone] Social History Tobacco Use Types Packs/Day Years [...] documented in this encounter Patient Instructions Patient InstructionsAna Jacobs PA-C - 10/29/2020 2:40 PM CDT - Recommend lumbar CT w/o contrast. You will need to call to schedule. Call [place] radiology scheduling for your procedure: For scheduling in the [place] ([facility], and [place]) call [phone] or [phone] For scheduling at [facility] ([facility], [facility], [facility]), call [phone] or [phone] For scheduling in the [place] ([facility]) call [phone] or [phone] -Recommend scoliosis films in addition to standing XR neutral/flexion/extension -Recommend following up once all imaging has been obtained to review and go over next Ana Jacobs PA-C [facility] Neurosurgery [address] [place] [address] documented in this encounter Progress Notes Ana [...] None of these modalities have provided anysignificant alf relief. Krys's Sachin had prior back surgery [...] consists of prior L2-L5 fusion with Dr. Suoleymane Garcia approximately 5-6 years ago. The patient's most [...] agreed to call our office back at [phone] to further discuss possible surgical interventions or [...] seek being evaluated. Respectfully, Ana Jacobs PA-C [facility] Neurosurgery [address] [address] Exam, imaging, and plan reviewed by Dr. [...] MR 06/22/2020. TORRES RIVAS MD SYSTEM ID: ??[id number] Narrative 11/09/2020 9:[address] LUMBAR [...] MR 06/22/2020. TORRES RIVAS MD SYSTEM ID: [id number] Ana COULTER-C IMG CT ORDERABLES XR Lumbar Bending Only [...] extension. JULIO CÉSAR HUITRON MD SYSTEM ID: ??[id number] Narrative 10/29/2020 4:29 PM CDT XR LUMBAR [...] extension. JULIO CÉSAR HUITRON MD SYSTEM ID: [id number] Ana Jacobs PA-C IMG DIAGNOSTIC IMAGING ORDER [...] sciatica documented in this encounter Care Teams Welfare Adviser Relationship Specialty Start Date End Date Idalmis Sloan PCP - General Family Practice 11/04/13 documented as of this encounter
--- OUTSIDE RECORDS SUMMARY | 2021-12-11 15:32 | XMS_ITS | Encounter Summary ---
:1950 Author Organization [place] Address [address] [place] [address] Care Team Providers Name Role Phone Idalmis Sloan Primary Care Provider Encounter Details Date Type Department Care Team Description 03/16/2019 Therapy Visit [facility] [place], Lumbar pain (Primary Rehabilitation Services ADDICTION MEDICINE PHYSICIAN Dx) [facility] [address] [facility] [address] [place] [address] Social History Tobacco Use Types Packs/Day Years Used Date Smoking Tobacco: Never Smokeless Tobacco: Never Sex Assigned at Date Recorded Not on file documented as of this encounter Plan of Treatment Not on filedocumented as of this encounter Procedures Procedure Name Priority Date/Time Associated Diagnosis Comme nts Z THERAPEUTIC Routine 03/16/2019 4:32 PM ACID PATROLLER Lumbar pain ACTIVITIES Z THERAPEUTIC Routine 03/16/2019 4:32 PM ACID PATROLLER Lumbar pain EXERCISES documented in this encounter Visit Diagnoses Diagnosis Lumbar pain - Primary Lumbago documented in this encounter Care Teams Cut Off Saw Grader Relationship Specialty Start Date End Date Idalmis Sloan PCP - General Family Practice 11/04/13 documented as of this encounter
--- OUTSIDE RECORDS SUMMARY | 2021-12-11 15:32 | XMS_ITS | Encounter Summary ---
:1950 Author Organization [place] Address [address] [place] [address] Care Team Providers Name Role Phone Idalmis [...] filedocumented in this encounter Care Teams Associate Account Manager Relationship Specialty Start Date End Date Idalmis Sloan PCP - General Family Practice 11/04/13 documented as of this encounter
--- OUTSIDE RECORDS SUMMARY | 2021-12-11 15:32 | XMS_ITS | Encounter Summary ---
:1950 Author Organization [place] Address [address] [place] [address] Care Team Providers Name Role Phone Idalmis Sloan Primary Care Provider Ana Jacobs PA-C Unavailable Reason for Referral Diagnostic Imaging CT Scan (Routine) - Closed Specialty Diagnoses / Procedures Referred By Contact Refer red To Contact Diagnoses Acute bilateral low back pain with left-sided sciatica Ana Jacobs PA-C Procedures CT Lumbar Spine w/o Contrast [facility] [address] [place] [address] Referral ID Status Reason Start Date Expiration Date Visits Requ ested Visits Authorized [id number] Closed 10/29/2020 10/29/2021 1 1 Reason for Visit Diagnostic Imaging CT Scan (Routine) - Closed Specialty Diagnoses / Procedures Referred By Contact Refer red To Contact Diagnoses Acute bilateral low back pain with left-sided sciatica Ana Jacobs PA-C Procedures CT Lumbar Spine w/o Contrast [facility] [place] [address] Referral ID Status Reason Start Date Expiration Date Visits Requ ested Visits Authorized [id number] Closed 10/29/2020 10/29/2021 1 1 Encounter Details Date Type Department Care Team Description 11/08/2020 [facility] VIELKA Alcaraz back pain with [address] [facility] left-sided sciatica [facility] [id number] [address] [phone] [place] [address] Social History Tobacco Use Types Packs/Day Years [...] 12/17/2020 (MICRO-K) 10 MEQ CR daily capsule willow leung Take 1 capsule (250 14 capsule 0 [...] MR 06/22/2020. TORRES RIVAS MD SYSTEM ID: ??[id number] Narrative 11/09/2020 9:[address] LUMBAR [...] MR 06/22/2020. TORRES RIVAS MD SYSTEM ID: [id number] Ana Jacobs PA-C IMG CT ORDERABLES documented in this encounter Visit Diagnoses Diagnosis Acute bilateral low back pain with left- sided sciatica documented in this encounter Care Teams Compliance Investigator Relationship Specialty Start Date End Date Idalmis Sloan PCP - General Family Practice 11/04/13 Ana Jacobs PA-C Assigned Neuroscience 11/04/20 12/01/20 [facility] Provider [address] [address] documented as of this encounter
--- OUTSIDE RECORDS SUMMARY | 2021-12-11 15:32 | XMS_ITS | Encounter Summary ---
:1950 Author Organization [place] Address [address] [place] [address] Care Team Providers Name Role Phone Idalmis [...] on filedocumented in this encounter Care Teams Bobbin Fixer Relationship Specialty Start Date End Date Idalmis Sloan PCP - General Family Practice 11/04/13 documented as of this encounter
--- OUTSIDE RECORDS SUMMARY | 2021-12-11 15:32 | XMS_ITS | Encounter Summary ---
:1950 Author Organization [place] Address [address] [facility] [place] [address] Care Team Providers Name Role Phone Idalmis Sloan Primary Care Provider Reason for Visit KIMBER Physical Therapy (Routine) - Closed Specialty Diagnoses / Procedures Referred By Contact Refer red To Contact Asset Protection Greeter Diagnoses >4 Lefft side hip pain, LBP / Idalmis Sloan MD@ [place] [facility] /referral exists 20V thru 03.01.18(MSG) Idalmis Sloan Linda, PTA / Physical Therapy Procedures SPINE FOLLOW UP [facility] [address] [place] [address] Referral ID Status Reason Start Date Expiration Date Visits Requ ested Visits Authorized [id number] Closed 03/16/2018 03/01/2019 20 18 Encounter Details Date Type Department Care Team Description 03/16/2018 Therapy Visit [facility] [place], Hip josefina n, left Rehabilitation Services [facility] [address] [facility] [address] [place] [address] Social History Tobacco Use Types Packs/Day Years Used Date Smoking Tobacco: Never Smokeless Tobacco: Never Sex Assigned at Date Recorded Not on file documented as of this encounter Plan of Treatment Not on filedocumented as of this encounter Procedures Procedure Name Priority Date/Time Associated Diagnosis Comme [facility] THERAPEUTIC Routine 03/17/2018 7:48 AM DOCUMENTATION IMPROVEMENT SPECIALIST Hip pain, left EXERCISES documented in this encounter Visit Diagnoses Diagnosis Hip pain, left Pain in joint, pelvic region and thigh documented in this encounter Care Teams Materials Planner/Production Planner Relationship Specialty Start Date End Date Idalmis Sloan PCP - General Family Practice 11/04/13 documented as of this encounter
--- OUTSIDE RECORDS SUMMARY | 2021-12-11 15:32 | XMS_ITS | Encounter Summary ---
:1950 Author Organization [place] Address [address] [place] [address] Care Team Providers Name Role Phone Idalmis Sloan Primary Care Provider Ana Jacobs PA-C Unavailable Reason for Referral Diagnostic Imaging XR (Routine) - Closed Specialty Diagnoses / Procedures Referred By Contact Refer red To Contact Diagnoses Acute bilateral low back pain with left-sided sciatica Lumbar radiculopathy Madhav Matute MD Procedures XR Lumbar Epidural Injection [facility] [address] [place] [address] Referral ID Status Reason Start Date Expiration Date Visits Requ ested Visits Authorized [id number] Closed 11/19/2020 11/19/2021 1 1 Reason for Visit Reason Comments RECHECK Lumbar Encounter Details Date Type Department Care Team Description 11/19/2020 Office Visit [facility] Madhav Melton Acute darrell ateral low back pain with left-sided sciatica (Primary Dx); [facility] Neurosurgery MD Cordell Lumbar radiculopathy [facility] [place] [address] [address] [address] [facility] [address] [place] [phone] Social History Tobacco Use Types Packs/Day Years [...] after this timeframe. o You can call [facility] ([facility]) to schedule your injection at [phone] ??? We will work on obtaining your DEXA scan results for Dr. Matute to review. ??? Dr. Matute would like to see you back in the clinic for follow up one month after your injection. Please call the number below to schedule. Please call us if you have any further questions or concerns. [facility] documented in this encounter [...] SARAH/Minnie November 19, 2020 to fax number [phone] Right Fax confirmed at 1615 PM documented [...] unspecified documented in this encounter Care Teams Fuel Cell Systems Engineer Relationship Specialty Start Date End Date Idalmis Sloan PCP - General Family Practice 11/04/13 Ana Jacobs PA-C Assigned Neuroscience 11/04/20 12/01/20 [facility] Provider [address] [address] documented as of this encounter
--- OUTSIDE RECORDS SUMMARY | 2021-12-11 15:32 | XMS_ITS | Encounter Summary ---
:1950 Author Organization [place] Address [address] [place] [address] Care Team Providers Name Role Phone Idalmis [...] on filedocumented in this encounter Care Teams Turn Machine Operator Relationship Specialty Start Date End Date Idalmis Sloan PCP - General Family Practice 11/04/13 documented as of this encounter
--- OUTSIDE RECORDS SUMMARY | 2021-12-11 15:32 | XMS_ITS | Encounter Summary ---
:1950 Author Organization [place] Address [address] [place] [address] Care Team Providers Name Role Phone Idalmis [...] on filedocumented in this encounter Care Teams Cardiac Cath Lab Technologist Relationship Specialty Start Date End Date Idalmis Sloan PCP - General Family Practice 11/04/13 documented as of this encounter
--- OUTSIDE RECORDS SUMMARY | 2021-12-11 15:32 | XMS_ITS | Encounter Summary ---
:1950 Author Organization [place] Address [address] [place] [address] Care Team Providers Name Role Phone Idalmis Sloan Primary Care Provider Encounter Details Date Type Department Care Team Description 03/30/2019 Therapy Visit [facility] Belén [place], Lumbar pain (Primary Rehabilitation Services TRANSFERRER Dx) [facility] [address] [facility] [address] [place] [address] Social History Tobacco Use Types Packs/Day Years Used Date Smoking Tobacco: Never Smokeless Tobacco: Never Sex Assigned at Date Recorded Not on file documented as of this encounter Plan of Treatment Not on filedocumented as of this encounter Procedures Procedure Name Priority Date/Time Associated Diagnosis Comme nts ZZC THERAPEUTIC Routine 03/30/2019 3:56 PM PARACHUTE/COMBATANT DIVER OFFICER Lumbar pain ACTIVITIES ZZ THERAPEUTIC Routine 03/30/2019 3:56 PM PARACHUTE/COMBATANT DIVER OFFICER Lumbar pain EXERCISES documented in this encounter Visit Diagnoses Diagnosis Lumbar pain - Primary Lumbago documented in this encounter Care Teams Forensic Computer Examiner Relationship Specialty Start Date End Date Idalmis Sloan PCP - General Family Practice 11/04/13 documented as of this encounter
--- OUTSIDE RECORDS SUMMARY | 2021-12-11 15:32 | XMS_ITS | Encounter Summary ---
:1950 Author Organization [place] Address [address] [place] [address] Care Team Providers Name Role Phone Idalmis [...] on filedocumented in this encounter Care Teams Drawbridge Operator Relationship Specialty Start Date End Date Idalmis Sloan PCP - General Family Practice 11/04/13 documented as of this encounter
--- OUTSIDE RECORDS SUMMARY | 2021-12-11 15:32 | XMS_ITS | Encounter Summary ---
:1950 Author Organization [place] Address [address] [place] [address]. [place] [address] Care Team Providers Name Role Phone Idalmis Sloan Primary Care Provider Reason for Visit Diagnostic Imaging XR (Routine) - Closed Specialty Diagnoses / Procedures Referred By Contact Refer red To Contact Diagnoses Acute bilateral low back pain with left-sided sciatica Ana Jacobs PA-C Procedures XR Spine Complete Scoliosis 2 Views [facility] [address] [facility] [address] [place] [address] Referral ID Status Reason Start Date Expiration Date Visits Requ ested Visits Authorized [id number] Closed 10/29/2020 10/29/2021 1 1 Encounter Details Date Type Department Care Team Description 10/29/2020 Ancillary Procedure [facility] Ana Jacobs Acu te bilateral low Sports and VIELKA Alcaraz back pain with Orthopedic Care [facility] left-side d sciatica [facility] [address] [facility] [address] [facility] [address] [place] [address] [address] [id number] Social History Tobacco Use Types Packs/Day Years [...] changes. ANGEL GRIFFIN MD Ana Jacobs PA-C IMG DIAGNOSTIC IMAGING ORDER TRELL documented in this encounter Visit Diagnoses Diagnosis Acute bilateral low back pain with left- sided sciatica documented in this encounter Care Teams Body Die Maker Relationship Specialty Start Date End Date Idalmis Sloan PCP - General Family Practice 11/04/13 documented as of this encounter
--- OUTSIDE RECORDS SUMMARY | 2021-12-11 15:32 | XMS_ITS | Encounter Summary ---
:1950 Author Organization [place] Address [address] [place] [address] Care Team Providers Name Role Phone Idalmis [...] on filedocumented in this encounter Care Teams Fun House Operator Relationship Specialty Start Date End Date Idalmis Sloan PCP - General Family Practice 11/04/13 documented as of this encounter
--- OUTSIDE RECORDS SUMMARY | 2021-12-11 15:32 | XMS_ITS | Encounter Summary ---
:1950 Author Organization [place] Address [address] [facility] [place] [address] Care Team Providers Name Role Phone Idalmis Sloan Primary Care Provider Reason for Visit [facility] Physical Therapy (Routine) - Closed Specialty Diagnoses / Procedures Referred By Contact Refer red To Contact Hospice Physician Diagnoses >4 Lefft side hip pain, LBP / Idalmis Sloan MD@ [place] [facility] /referral exists 20V thru 03.01.18(MSG) Idalmis Sloan Linda, PTA / Physical Therapy Procedures SPINE FOLLOW UP [facility] [address] [place] [address] Referral ID Status Reason Start Date Expiration Date Visits Requ ested Visits Authorized [id number] Closed 03/16/2018 03/01/2019 20 18 Encounter Details Date Type Department Care Team Description 03/22/2018 Therapy Visit [facility] Belén [place], Hip josefina n, left Rehabilitation Services [facility] Care [place] [address] [facility] [address] [place] [address] Social History Tobacco Use Types [...] Previous pain level was: Initial Pain level: 810 Changes in function: Yes (See Goal flowsheet [...] Procedure Name Priority Date/Time Associated Diagnosis Comme [facility] THERAPEUTIC Routine 03/23/2018 12:46 PM Hip pain, left EXERCISES COUNSELING PSYCHOLOGIST documented in this encounter Visit Diagnoses Diagnosis Hip pain, left Pain in joint, pelvic region and thigh documented in this encounter Care Teams Visual Merchandiser Relationship Specialty Start Date End Date Idalmis Sloan PCP - General Family Practice 11/04/13 documented as of this encounter
--- OUTSIDE RECORDS SUMMARY | 2021-12-11 15:32 | XMS_ITS | Encounter Summary ---
:1950 Author Organization [place] Address [address] [place] [address] Care Team Providers Name Role Phone Idalmis Sloan Primary Care Provider Encounter Details Date Type Department Care Team Description 03/23/2019 Therapy Visit [facility] Belén [place], Lumbar pain (Primary Rehabilitation Services DRUM BARKER OPERATOR Dx) [facility] [address] [facility] [address] [place] [address] Social History Tobacco Use Types Packs/Day Years Used Date Smoking Tobacco: Never Smokeless Tobacco: Never Sex Assigned at Date Recorded Not on file documented as of this encounter Plan of Treatment Not on filedocumented as of this encounter Procedures Procedure Name Priority Date/Time Associated Diagnosis Comme nts Z THERAPEUTIC Routine 03/23/2019 3:35 PM CUSTOMER SERVICE REPRESENTATIVE TELLER Lumbar pain ACTIVITIES ZZ THERAPEUTIC Routine 03/23/2019 3:35 PM CUSTOMER SERVICE REPRESENTATIVE TELLER Lumbar pain EXERCISES documented in this encounter Visit Diagnoses Diagnosis Lumbar pain - Primary Lumbago documented in this encounter Care Teams Coal Yard Supervisor Relationship Specialty Start Date End Date Idalmis Sloan PCP - General Family Practice 11/04/13 documented as of this encounter
--- OUTSIDE RECORDS SUMMARY | 2021-12-11 15:33 | XMS_ITS | Encounter Summary ---
:1950 Author Organization [place] Address [address] [place] [address] Care Team Providers Name Role Phone Idalmis Sloan Primary Care Provider Ana Jacobs PA-C Unavailable Madhav Matute MD Unavailable Encounter Details Date Type Department Care Team Description 11/21/2014 External Order [facility] Outside, Provider Results Rehabilitation Services [facility] [address] [place] [address] [address] [place] [address] Social History Tobacco Use Types [...] documented as of this encounter Care Teams Quality Assurance Analyst Relationship Specialty Start Date End Date Idalmis Sloan Ann PCP - General Family Practice 11/04/13 Ana Jacobs PA-C Assigned Neuroscience 11/04/20 12/01/20 [facility] Provider [address] [id number] Madhav Matute MD Assigned Neuroscience 12/02/20 [address] [place] [place] [id number] documented as of this encounter
--- OUTSIDE RECORDS SUMMARY | 2021-12-11 15:33 | XMS_ITS | Encounter Summary ---
:1950 Author Organization [place] Address [address] [place] [address] Care Team Providers Name Role Phone Idalmis Sloan Primary Care Provider Encounter Details Date Type Department Care Team Description 09/05/2015 Therapy Visit [facility] [place] Saeed, SHANAE Sprain of left rotator cuff capsule, sub sequent encounter (Primary Dx); Rehabilitation [facility] Other postprocedural status(V45.89) Services [address] Specialty Care Allen gu[address]man [address] [facility] [address] [place], [place] [address] [address] [place] [address] [phone] Social History Tobacco Use Types Packs/Day Years Used Date Smoking Tobacco: Never Assessed Sex Assigned at Date Recorded Not on file documented as of this encounter Plan of Treatment Not on filedocumented as of this encounter Procedures Procedure Name Priority Date/Time Associated Diagnosis Comme nts [facility] NEUROMUSCULAR Routine 09/05/2015 3:16 PM Sprain of left ro tator RE-EDUCATION CDT cuff capsule, subsequent encounter Other postprocedural status(V45.89) [facility] THERAPEUTIC Routine 09/05/2015 3:16 PM Sprain of left rota tor EXERCISES CDT cuff capsule, subsequent encounter Other postprocedural status(V45.89) documented in this encounter Visit Diagnoses Diagnosis Sprain of left rotator cuff capsule, sub sequent encounter - Primary Other postprocedural status(V45.89) Other postprocedural status documented in this encounter Care Teams Solid Die Cutter Relationship Specialty Start Date End Date Idalmis Sloan PCP - General Family Practice 11/04/13 documented as of this encounter
--- OUTSIDE RECORDS SUMMARY | 2021-12-11 15:33 | XMS_ITS | Encounter Summary ---
:1950 Author Organization [place] Address [facility] [place] [address] Care Team Providers Name Role Phone Idalmis Sloan Primary Care Provider Encounter Details Date Type Department Care Team Description 11/15/2014 Therapy Visit [facility] [place] Fidelia oulder pain Rehabilitation Services AUTO EMISSIONS TECHNICIAN (Apoorva womack Dx) [facility] [address] [facility] [address] [place] [address] Social History Tobacco Use Types [...] PM Left shoulder josefina n RE-EDUCATION CDT ZC THERAPEUTIC EXERCISES Routine 11/15/2014 4:06 PM Left shou lder pain CDT documented in this encounter Visit Diagnoses Diagnosis Left shoulder pain - Primary Pain in joint, shoulder region documented in this encounter Care Teams Middle School Sports Coach Relationship Specialty Start Date End Date Idalmis Sloan PCP - General Family Practice 11/04/13 documented as of this encounter
--- OUTSIDE RECORDS SUMMARY | 2021-12-11 15:33 | XMS_ITS | Encounter Summary ---
:1950 Author Organization [place] Address [address] [facility] [place] [address] Care Team Providers Name Role Phone Idalmis Sloan Primary Care Provider Encounter Details Date Type Department Care Team Description 06/03/2015 Telephone [facility] Nurse Sabiha Shelton , RN [facility] [address] [place] [address] Social History Tobacco Use Types Packs/Day [...] bone; or pure bloody urine ? NO Secretary something pass with urination ? NO Unbearable [...] on filedocumented in this encounter Care Teams Public Address Servicer Relationship Specialty Start Date End Date Idalmis Sloan PCP - General Family Practice 11/04/13 documented as of this encounter
--- OUTSIDE RECORDS SUMMARY | 2021-12-11 15:33 | XMS_ITS | Encounter Summary ---
:1950 Author Organization [place] Address [address] [place] [address]. [place] [address] Care Team Providers Name Role Phone Idalmis Sloan Primary Care Provider Reason for Visit [facility] Physical Therapy (Routine) - Denied Specialty Diagnoses / Procedures Referred By Contact Refer red To Contact Physical Therapy Diagnoses >4 s/p L rot tiff / mehdi lorenzana @ ortho / [employer] 30 visits per year Mehdi Gaffney MD Judd, Laurie, PT Procedures [facility] [id number] [place] [address] [address] [place] [address] [place] [address] Fax: Referral ID Status Reason Start Date Expiration Date Visits V isits Requested Authorized KIMBER/WC/PT/L Denied 06/11/2015 06/10/2016 14 0 [facility] POST [id number] Encounter Details Date Type Department Care Team Description 06/11/2015 Therapy Visit [facility] [place] Wheeler, PT Sprain of left rotator cuff capsule (Apoorva womack Dx); [facility] Other postprocedural status(V45.89) Services [place] [id number] [place] [address] Specialty Care Allen [address] [address] [place], [place] [address] [address] [place] [address] Social History Tobacco Use [...] Sheet for this information) Short term and FCI goals: (See Goal Flow Sheet for this [...] Procedures Procedure Name Priority Date/Time Associated Diagnosis Brindairis brissa ZZC THERAPEUTIC Routine 06/11/2015 1:42 PM Sprain of left rota tor EXERCISES CDT cuff capsule Other postprocedural status(V45.89) documented in this encounter Visit Diagnoses Diagnosis Sprain of left rotator cuff capsule - Pr imary Rotator cuff (capsule) sprain Other postprocedural status(V45.89) Other postprocedural status documented in this encounter Care Teams Educational Specialist Relationship Specialty Start Date End Date Idalmis Sloan PCP - General Family Practice 11/04/13 documented as of this encounter
--- OUTSIDE RECORDS SUMMARY | 2021-12-11 15:33 | XMS_ITS | Encounter Summary ---
:1950 Author Organization [place] Address [facility] [place] [address] Care Team Providers Name Role Phone Idalmis Sloan Primary Care Provider Encounter Details Date Type Department Care Team Description 08/10/2014 Therapy Visit [facility] [place], Midline low back pain Rehabilitation Services CHEMICAL RADIATION TECHNICIAN with right-sided [facility] sc iatica (Primary Dx) Center [address] [facility] [address] [place] [address] Social History Tobacco Use Types [...] Primary documented in this encounter Care Teams Project Manager Retail Relationship Specialty Start Date End Date Idalmis Sloan PCP - General Family Practice 11/04/13 documented as of this encounter
--- OUTSIDE RECORDS SUMMARY | 2021-12-11 15:33 | XMS_ITS | Encounter Summary ---
:1950 Author Organization [place] Address [address] [place] [address]. [place] [address] Care Team Providers Name Role Phone Idalmis Sloan Primary Care Provider Reason for Visit KIMBER Physical Therapy (Routine) - Denied Specialty Diagnoses / Procedures Referred By Contact Refer red To Contact Physical Therapy Diagnoses >4 s/p L rot tiff / mehdi lorenzana @ ortho / BCBS 30 visits per year Mehdi Gaffney MD Judd, Laurie, PT Procedures EXTREMITY INITIAL ORTHOPAEDIC AND KIMBER [facility] [id number] [place] [address] DR BEGUM [address] [place] [address] [place] [address] Fax: Referral ID Status Reason Start Date Expiration Date Visits V isits Requested Authorized KIMBER/WC/PT/L Denied 06/11/2015 06/10/2016 14 0 SHLDR POST [id number] Encounter Details Date Type Department Care Team Description 06/14/2015 Therapy Visit [facility] Artie, Sprain of left rotator cuff capsule, subsequent encounter (Primary Dx); Rehabilitation Services CORRINA Melissa postprocedural status(V45.89) [facility] [place] [address] [facility] [address] [place] [address] Social History Tobacco Use Types Packs/Day Years Used Date Smoking Tobacco: Never Assessed Sex Assigned at Date Recorded Not on file documented as of this encounter Plan of Treatment Not on filedocumented as of this encounter Procedures Procedure Name Priority Date/Time Associated Diagnosis Comme [facility] PjC THERAPEUTIC Routine 06/15/2015 6:45 AM Sprain of left rota tor EXERCISES CDT cuff capsule, subsequent encounter Other postprocedural status(V45.89) C HOT OR COLD PACKS Routine 06/15/2015 6:45 AM Sprain of lef t rotator THERAPY CDT cuff capsule, subsequent encounter Other postprocedural status(V45.89) documented in this encounter Visit Diagnoses Diagnosis Sprain of left rotator cuff capsule, sub sequent encounter - Primary Other postprocedural status(V45.89) Other postprocedural status documented in this encounter Care Teams Population Geneticist Relationship Specialty Start Date End Date Idalmis Sloan PCP - General Family Practice 11/04/13 documented as of this encounter
--- OUTSIDE RECORDS SUMMARY | 2021-12-11 15:33 | XMS_ITS | Encounter Summary ---
:1950 Author Organization [place] Address [address] [place] [address]. [place] [address] Care Team Providers Name Role Phone Idalmis Sloan Primary Care Provider Reason for Visit KIMBER Physical Therapy (Routine) - Denied Specialty Diagnoses / Procedures Referred By Contact Refer red To Contact Physical Therapy Diagnoses >4 s/p L rot tiff / mehdi lorenzana @ ortho / BCBS 30 visits per year Mehdi Gaffney MD Judd, Laurie, PT Procedures EXTREMITY INITIAL ORTHOPAEDIC AND KIMBER [facility] [id number] [place] [address] [address] BEGUM [address] [facility] [address] [place] [address] [place] [address] Fax: Referral ID Status Reason Start Date Expiration Date Visits V isits Requested Authorized KIMBER/WC/PT/L Denied 06/11/2015 06/10/2016 14 0 SHLDR POST [id number] Encounter Details Date Type Department Care Team Description [facility] Sprain of left rotator cuff capsule, sub sequent encounter (Primary Dx); [facility] Other postprocedural status(V45.89) Services [place] [id number] [place] [address] Specialty Care [place] BE[address]UM [address] [address] [place], [place] [address] [address] [place] [address] Social History Tobacco Use Types Packs/Day Years Used Date Smoking Tobacco: Never Assessed Sex Assigned at Date Recorded Not on file documented as of this encounter Plan of Treatment Not on filedocumented as of this encounter Procedures Procedure Name Priority Date/Time Associated Diagnosis Comme nts [facility] NEUROMUSCULAR Routine 08/16/2015 5:04 PM Sprain of left ro tator RE-EDUCATION CDT cuff capsule, subsequent encounter Other postprocedural status(V45.89) [facility] THERAPEUTIC Routine 08/16/2015 5:04 PM Sprain of left rota tor EXERCISES CDT cuff capsule, subsequent encounter Other postprocedural status(V45.89) documented in this encounter Visit Diagnoses Diagnosis Sprain of left rotator cuff capsule, sub sequent encounter - Primary Other postprocedural status(V45.89) Other postprocedural status documented in this encounter Care Teams Executive Account Manager Relationship Specialty Start Date End Date Idalmis Sloan PCP - General Family Practice 11/04/13 documented as of this encounter
--- OUTSIDE RECORDS SUMMARY | 2021-12-11 15:33 | XMS_ITS | Encounter Summary ---
:1950 Author Organization [place] Address [address] [place] [address] Care Team Providers Name Role Phone NathaliaIdalmisVijaya Primary Care Provider Encounter Details Date Type Department Care Team Description 11/13/2013 Telephone [facility] Nurse Idalmis Sloan Advisors [facility] [address] [facility] [address] [place] [address] [place] [address] [phone] (Wo rk) Social History Tobacco Use Types Packs/Day Years Used Date Smoking Tobacco: Never Assessed Sex Assigned at Date Recorded Not on file documented as of this encounter Miscellaneous Notes Telephone Encounter - NathaliaIdalmisVijaya - 11/13/2013 4:14 PM CDT Call Type: Triage Call Presenting Problem: I have had this cough, congestion,I know I have a sinus infection and bronchitis Kaylee had this before.I have been taking claritin and flonase and its not any better.I know an abx would help.Who is engineering consultant? Advised to be seen.Page sent to MD per pt.Md advised to be seen in am. Pt stated she will go to the [facility]. # [phone] Triage Note: Guideline Title: Cough - Adult [...] air. Be sure to clean according to engine room operator's instructions. Limit activities and increase periods of [...] on filedocumented in this encounter Care Teams Human Resource Adviser Relationship Specialty Start Date End Date Idalmis Sloan PCP - General Family Practice 11/04/13 documented as of this encounter
--- OUTSIDE RECORDS SUMMARY | 2021-12-11 15:33 | XMS_ITS | Encounter Summary ---
:1950 Author Organization [place] Address [address] [place] [address] Care Team Providers Name Role Phone Idalmis Sloan Primary Care Provider Encounter Details Date Type Department Care Team Description 10/02/[address] [facility] [place] Saeed, PT Cervical radiculitis Rehabilitation Services KIMBERJose PINTO (Primary Dx) [facility] [address] [facility] [address] [address] [place], [place] [address] [address] [place], [place] [address] Social History Tobacco Use Types Packs/Day Years [...] extension) C8 (thumb extension) T1 (finger add/abd) Lead Advisor Strength (lb) Sensory Deficit, Reflexes, Dural Signs: [...] for this information) Short term and intermediate manager goals: (See Goal Flow Sheet for this [...] Priority Date/Time Associated Diagnosis Comme nts [facility] MANUAL THER Routine 10/02/2015 4:55 PM CDT Cervical radicu litis TECH,1+REGIONS,EA 15 MIN ZZC THERAPEUTIC Routine 10/02/2015 4:55 PM CDT Cervical radicu litis EXERCISES documented in this encounter Visit Diagnoses Diagnosis Cervical radiculitis - Primary Brachial neuritis or radiculitis nos documented in this encounter Care Teams Radio Program Checker Relationship Specialty Start Date End Date Idalmis Sloan PCP - General Family Practice 11/04/13 documented as of this encounter
--- OUTSIDE RECORDS SUMMARY | 2021-12-11 15:33 | XMS_ITS | Encounter Summary ---
:1950 Author Organization [place] Address [address] [facility] [place] [address] Care Team Providers Name Role Phone Idalmis Sloan Primary Care Provider Encounter Details Date Type Department Care Team Description 07/20/2014 Therapy Visit [facility] Cherelle Santana Midli ne low back Rehabilitation Services PT pain with [place] [facility] right- sided sciatica [facility] MEDICINE (Primary Dx) [address] [place] [address] [place] [address] [place], [place] [phone] [address] Social History Tobacco Use Types Packs/Day Years [...] pain throughout movement Rotation: Left: Right: Side [place]: Left: Right: Strength: Abdominals 1/5 Lumbar Myotomes: [...] Sheet for this information) Short term and custodial goals: (See Goal Flow Sheet for this [...] Priority Date/Time Associated Diagnosis Comme nts [facility] THERAPEUTIC Routine 07/25/2014 12:32 PM Midline Low Back P ain ACTIVITIES CDT With Right-Sided Sciatica [facility] THERAPEUTIC Routine 07/25/2014 12:32 PM Midline low back p ain EXERCISES CDT with right-sided sciatica documented in this encounter Visit Diagnoses Diagnosis Midline low back pain with right-sided s ciatica - Primary documented in this encounter Care Teams Assistant Chief Engineer Relationship Specialty Start Date End Date Idalmis Sloan PCP - General Family Practice 11/04/13 documented as of this encounter
--- OUTSIDE RECORDS SUMMARY | 2021-12-11 15:33 | XMS_ITS | Encounter Summary ---
:1950 Author Organization [place] Address [address] [place] [address]. [place] [address] Care Team Providers Name Role Phone Idalmis Sloan Primary Care Provider Reason for Visit KIMBER Physical Therapy (Routine) - Denied Specialty Diagnoses / Procedures Referred By Contact Refer red To Contact Physical Therapy Diagnoses >4 s/p L rot tiff / mehdi lorenzana @ ortho / BCBS 30 visits per year Mehdi Gaffney MD Judd, Laurie, PT Procedures EXTREMITY INITIAL ORTHOPAEDIC AND KIMBER [facility] [id number] [place] [address] [address] BEGUM [address] [place] [address] [place] [address] Fax: Referral ID Status Reason Start Date Expiration Date Visits V isits Requested Authorized KIMBER/WC/PT/L Denied 06/11/2015 06/10/2016 14 0 SHLDR POST [id number] Encounter Details Date Type Department Care Team Description 07/10/2015 [facility], Sprain of left rotator cuff capsule, subsequent encounter (Primary Dx); Rehabilitation Services CORRINA Melissa r postprocedural status(V45.89) [facility] [place] [address] [facility] [address] [place] [address] Social History Tobacco Use Types Packs/Day Years Used Date Smoking Tobacco: Never Assessed Sex Assigned at Date Recorded Not on file documented as of this encounter Plan of Treatment Not on filedocumented as of this encounter Procedures Procedure Name Priority Date/Time Associated Diagnosis Comme brissa ZPjC NEUROMUSCULAR Routine 07/11/2015 7:11 AM Sprain of left ro tator RE-EDUCATION CDT cuff capsule, subsequent encounter Other postprocedural status(V45.89) [facility] THERAPEUTIC Routine 07/11/2015 7:11 AM Sprain of left rota tor EXERCISES CDT cuff capsule, subsequent encounter Other postprocedural status(V45.89) documented in this encounter Visit Diagnoses Diagnosis Sprain of left rotator cuff capsule, sub sequent encounter - Primary Other postprocedural status(V45.89) Other postprocedural status documented in this encounter Care Teams Supervisor Of Officials Relationship Specialty Start Date End Date Idalmis Sloan PCP - General Family Practice 11/04/13 documented as of this encounter
--- OUTSIDE RECORDS SUMMARY | 2021-12-11 15:33 | XMS_ITS | Encounter Summary ---
:1950 Author Organization [place] Address [address] [place] [address]. [place] [address] Care Team Providers Name Role Phone Idalmis Sloan Primary Care Provider Reason for Visit KIMBER Physical Therapy (Routine) - Denied Specialty Diagnoses / Procedures Referred By Contact Refer red To Contact Physical Therapy Diagnoses >4 s/p L rot tiff / mehdi lorenzana @ ortho / BCBS 30 visits per year Mehdi Gaffney MD Judd, Laurie, PT Procedures EXTREMITY INITIAL ORTHOPAEDIC AND KIMBER [facility] [id number] [place] [address] DR BEGUM [address] [place] [address] [place] [address] Fax: Referral ID Status Reason Start Date Expiration Date Visits V isits Requested Authorized KIMBER/WC/PT/L Denied 06/11/2015 06/10/2016 14 0 SHLDR POST [id number] Encounter Details Date Type Department Care Team Description 06/27/2015 Therapy Visit [facility] Artie, Sprain of left rotator cuff capsule, subsequent encounter (Primary Dx); Rehabilitation Services CORRINA Melissa postprocedural status(V45.89) [facility] Care [place] [address] [facility] [address] [place] [address] Social History Tobacco Use Types Packs/Day Years Used Date Smoking Tobacco: Never Assessed Sex Assigned at Date Recorded Not on file documented as of this encounter Plan of Treatment Not on filedocumented as of this encounter Procedures Procedure Name Priority Date/Time Associated Diagnosis Comme brissa DICKEYC THERAPEUTIC Routine 06/27/2015 8:29 PM Sprain of left rota tor EXERCISES CDT cuff capsule, subsequent encounter Other postprocedural status(V45.89) ZZC HOT OR COLD PACKS Routine 06/27/2015 8:29 PM Sprain of lef t rotator THERAPY CDT cuff capsule, subsequent encounter Other postprocedural status(V45.89) documented in this encounter Visit Diagnoses Diagnosis Sprain of left rotator cuff capsule, sub sequent encounter - Primary Other postprocedural status(V45.89) Other postprocedural status documented in this encounter Care Teams Materials Tech Relationship Specialty Start Date End Date Idalmis Sloan PCP - General Family Practice 11/04/13 documented as of this encounter
--- OUTSIDE RECORDS SUMMARY | 2021-12-11 15:33 | XMS_ITS | Encounter Summary ---
:1950 Author Organization [place] Address [address] [place] [address]. [place] [address] Care Team Providers Name Role Phone Idalmis Sloan Primary Care Provider Reason for Visit KIMBER Physical Therapy (Routine) - Denied Specialty Diagnoses / Procedures Referred By Contact Refer red To Contact Physical Therapy Diagnoses >4 s/p L rot tiff / mehdi lorenzana @ ortho / BCBS 30 visits per year Mehdi Gaffney MD Judd, Laurie, PT Procedures EXTREMITY INITIAL ORTHOPAEDIC AND KIMBER [facility] [id number] [place] [address] DR BEGUM [address] [place] [address] [place] [address] Fax: Referral ID Status Reason Start Date Expiration Date Visits V isits Requested Authorized KIMBER/WC/PT/L Denied 06/11/2015 06/10/2016 14 0 SHLDR POST [id number] Encounter Details Date Type Department Care Team Description 08/07/2015 Therapy Visit [facility] Artie, Sprain of left rotator cuff capsule, subsequent encounter (Primary Dx); Rehabilitation Services CORRINA Melissa r postprocedural status(V45.89) [facility] Care [place] [address] [facility] [address] [place] [address] Social History Tobacco Use Types Packs/Day Years Used Date Smoking Tobacco: Never Assessed Sex Assigned at Date Recorded Not on file documented as of this encounter Plan of Treatment Not on filedocumented as of this encounter Procedures Procedure Name Priority Date/Time Associated Diagnosis Comme brissa ZPjC NEUROMUSCULAR Routine 08/09/2015 1:35 PM Sprain of left ro tator RE-EDUCATION CDT cuff capsule, subsequent encounter Other postprocedural status(V45.89) [facility] HOT OR COLD PACKS Routine 08/09/2015 [...] status documented in this encounter Care Teams Mail Teller Relationship Specialty Start Date End Date Idalmis Sloan PCP - General Family Practice 11/04/13 documented as of this encounter
--- OUTSIDE RECORDS SUMMARY | 2021-12-11 15:33 | XMS_ITS | Encounter Summary ---
:1950 Author Organization [place] Address [facility] [place] [address] Care Team Providers Name Role Phone Idalmis Sloan Primary Care Provider Encounter Details Date Type Department Care Team Description 08/24/2014 Therapy Visit [facility] Belén Alva, [facility] low back pain Rehabilitation Services WOOL CARDER with right-sided [place] [facility] ([facility] Dx[facility] Center [address] [facility] [address] [place] [address] Social History Tobacco Use Types Packs/Day Years Used Date Smoking Tobacco: Never Assessed Sex Assigned at Date Recorded Not on file documented as of this encounter Progress Notes Belén Alva, WOOL CARDER - 09/20/2014 12:54 PM CDT Subjective: HPI [...] Associated Diagnosis Comme nts ZZ[facility] THERAPEUTIC Routine 08/24/2014 4:25 PM Midline low back pa in ACTIVITIES CDT with right-sided sciatica ZZC NEUROMUSCULAR Routine 08/24/2014 4:25 PM Midline low back pain RE-EDUCATION CDT with right-sided sciatica ZZ THERAPEUTIC EXERCISES Routine 08/24/2014 4:25 PM Midline l ow back pain CDT with right-sided sciatica documented in this encounter Visit Diagnoses Diagnosis Midline low back pain with right-sided s ciatica - Primary documented in this encounter Care Teams Rn On Site Relationship Specialty Start Date End Date Idalmis Sloan PCP - General Family Practice 11/04/13 documented as of this encounter
--- OUTSIDE RECORDS SUMMARY | 2021-12-11 15:33 | XMS_ITS | Encounter Summary ---
:1950 Author Organization [place] Address [address] [place] [address]. [place] [address] Care Team Providers Name Role Phone Idalmis Sloan Primary Care Provider Reason for Visit KIMBER Physical Therapy (Routine) - Denied Specialty Diagnoses / Procedures Referred By Contact Refer red To Contact Physical Therapy Diagnoses >4 s/p L rot tiff / mehdi lorenzana @ ortho / BCBS 30 visits per year Mehdi Gaffney MD Judd, Laurie, PT Procedures EXTREMITY INITIAL ORTHOPAEDIC AND KIMBER [facility] [id number] [place] [address] [address] [facility] [address] [place] [address] [place] [address] Fax: Referral ID Status Reason Start Date Expiration Date Visits V isits Requested Authorized KIMBER/WC/PT/L Denied 06/11/2015 06/10/2016 14 0 SHLDR POST [id number] Encounter Details Date Type Department Care Team Description 08/21/2015 [facility] Sprain of left rotator cuff capsule, sub sequent encounter (Primary Dx); [facility] Other postprocedural status(V45.89) Services [place] [id number] [place] [address] Specialty Care [place] [address] [address] [place], [place] [address] [address] [place] [address] Social History Tobacco Use Types Packs/Day Years Used Date Smoking Tobacco: Never Assessed Sex Assigned at Date Recorded Not on file documented as of this encounter Plan of Treatment Not on filedocumented as of this encounter Procedures Procedure Name Priority Date/Time Associated Diagnosis Comme nts [facility] NEUROMUSCULAR Routine 08/21/2015 3:47 PM Sprain of left ro tator RE-EDUCATION CDT cuff capsule, subsequent encounter Other postprocedural status(V45.89) [facility] THERAPEUTIC Routine 08/21/2015 3:47 PM Sprain of left rota tor EXERCISES CDT cuff capsule, subsequent encounter Other postprocedural status(V45.89) documented in this encounter Visit Diagnoses Diagnosis Sprain of left rotator cuff capsule, sub sequent encounter - Primary Other postprocedural status(V45.89) Other postprocedural status documented in this encounter Care Teams Dumper Bailer Operator Relationship Specialty Start Date End Date Idalmis Sloan PCP - General Family Practice 11/04/13 documented as of this encounter
--- OUTSIDE RECORDS SUMMARY | 2021-12-11 15:33 | XMS_ITS | Encounter Summary ---
:1950 Author Organization [place] Address [address] [place] [address] Care Team Providers Name Role Phone Idalmis Sloan Primary Care Provider Encounter Details Date Type Department Care Team Description 11/30/2015 Therapy Visit [facility] [place] Saeed PT Sprain of left rotator cuff capsule, sub sequent encounter (Primary Dx); Rehabilitation [facility] Other postprocedural status(V45.89) Services [address] Specialty Care lAlen guzman DR [facility] [address] [address] [place], [place] [address] [address] [place] [address] [phone] Social History Tobacco Use Types Packs/Day Years Used Date Smoking Tobacco: Never Assessed Sex Assigned at Date Recorded Not on file documented as of this encounter Plan of Treatment Not on filedocumented as of this encounter Procedures Procedure Name Priority Date/Time Associated Diagnosis Comme nts [facility] NEUROMUSCULAR Routine 12/04/2015 1:24 PM Sprain of left RE-EDUCATION CDT rotator cuff capsule, subsequent encounter [facility] THERAPEUTIC EXERCISES Routine 12/04/2015 1:24 PM Sprain of left CDT rotator cuff capsule, subsequent encounter documented in this encounter Visit Diagnoses Diagnosis Sprain of left rotator cuff capsule, sub sequent encounter - Primary Other postprocedural status(V45.89) Other postprocedural status documented in this encounter Care Teams Louver Door Assembler Relationship Specialty Start Date End Date Idalmis Sloan PCP - General Family Practice 11/04/13 documented as of this encounter
--- OUTSIDE RECORDS SUMMARY | 2021-12-11 15:33 | XMS_ITS | Encounter Summary ---
:1950 Author Organization [place] Address [address] [facility] [place] [address] Care Team Providers Name Role Phone Shanta Sloan Primary Care Provider Encounter Details Date Type Department Care Team Description 11/22/2014 Therapy Visit [facility] Belén Alva, Fidelia dontrell pain Rehabilitation Services TRANSPORT ENGINEER (Apoorva shanta Dx) [facility] [address] [facility] [address] [place] [address] Social History Tobacco Use Types [...] and time spent performing 1:1 timed codes. LE MARKER documented in this encounter Miscellaneous Notes Addendum Note - Micki Chang, PT - 01/30/2015 3:46 PM TEMPLE MARKER Addended by: MICKI CHANG on: 01/30/2015 03:46 PM Modules accepted: Orders LE MARKER documented in this encounter Plan of Treatment [...] region documented in this encounter Care Teams Sales Representative Graphic Art Relationship Specialty Start Date End Date Shanta Sloan PCP - General Family Practice 11/04/13 documented as of this encounter
--- OUTSIDE RECORDS SUMMARY | 2021-12-11 15:33 | XMS_ITS | Encounter Summary ---
:1950 Author Organization [place] Address [facility] [place] [address] Care Team Providers Name Role Phone Idalmis Sloan Primary Care Provider Encounter Details Date Type Department Care Team Description 07/25/2014 Therapy Visit [facility] Belén Alva, Midline low back pain Rehabilitation Services DIALYSIS TECH with right-sided [place] [facility] sc iatica (Primary Dx) Center [address] [facility] [address] [place] [address] Social History Tobacco Use Types [...] Primary documented in this encounter Care Teams Hide Dropper Relationship Specialty Start Date End Date Idalmis Sloan PCP - General Family Practice 11/04/13 documented as of this encounter
--- OUTSIDE RECORDS SUMMARY | 2021-12-11 15:33 | XMS_ITS | Encounter Summary ---
:1950 Author Organization [place] Address [address] [place] [address] Care Team Providers Name Role Phone Idalmis Sloan Primary Care Provider Encounter Details Date Type Department Care Team Description 11/09/2014 Therapy Visit [facility] Fidelia Chang pain Rehabilitation Services SHANAE Sweet (Primary Dx) [place] [facility] [address] [address] [address] [facility] [address] [place] [id number] Social History Tobacco Use Types Packs/Day Years [...] from spouse. BETTER with rest, methocarbanol. 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 Objective: System Shoulder Evaluation: ROM: AROM: Flexion: [...] Associated Diagnosis Comme nts [facility] THERAPEUTIC Routine 11/13/2014 10:13 AM Left shoulder pain EXERCISES CDT [facility] HOT OR COLD PACKS Routine 11/13/2014 10:13 AM Left shoulde r pain THERAPY CDT documented in this encounter Visit Diagnoses Diagnosis Left shoulder pain - Primary Pain in joint, shoulder region documented in this encounter Care Teams Welder Apprentice Gas Relationship Specialty Start Date End Date Idalmis Sloan PCP - General Family Practice 11/04/13 documented as of this encounter
--- OUTSIDE RECORDS SUMMARY | 2021-12-11 15:33 | XMS_ITS | Encounter Summary ---
:1950 Author Organization [place] Address [address] [place] [address]. [place] [address] Care Team Providers Name Role Phone Idalmis Sloan Primary Care Provider Reason for Visit KIMBER Physical Therapy (Routine) - Denied Specialty Diagnoses / Procedures Referred By Contact Refer red To Contact Physical Therapy Diagnoses >4 s/p L rot tiff / mehdi lorenzana @ ortho / BCBS 30 visits per year Mehdi Gaffney MD Judd, Laurie, PT Procedures EXTREMITY INITIAL ORTHOPAEDIC AND [facility] [id number] [place] [address] [address] [facility] [address] [place] [address] [place] [address] Fax: Referral ID Status Reason Start Date Expiration Date Visits V isits Requested Authorized KIMBER/WC/PT/L Denied 06/11/2015 06/10/2016 14 0 SHLDR POST [id number] Encounter Details Date Type Department Care Team Description 07/03/2015 [facility] Sprain of left rotator cuff capsule, sub sequent encounter (Primary Dx); [facility] Other postprocedural status(V45.89) Services [place] [id number] [place] [address] Specialty Care Allen BEGUM [address] [address] [place], [place] [address] [address] [place] [address] Social History Tobacco Use Types Packs/Day Years Used Date Smoking Tobacco: Never Assessed Sex Assigned at Date Recorded Not on file documented as of this encounter Plan of Treatment Not on filedocumented as of this encounter Procedures Procedure Name Priority Date/Time Associated Diagnosis Comme nts [facility] NEUROMUSCULAR Routine 07/04/2015 2:00 PM Sprain of left ro tator RE-EDUCATION CDT cuff capsule, subsequent encounter Other postprocedural status(V45.89) [facility] THERAPEUTIC Routine 07/04/2015 2:00 PM Sprain of left rota tor EXERCISES CDT cuff capsule, subsequent encounter Other postprocedural status(V45.89) documented in this encounter Visit Diagnoses Diagnosis Sprain of left rotator cuff capsule, sub sequent encounter - Primary Other postprocedural status(V45.89) Other postprocedural status documented in this encounter Care Teams Refuse Driver Relationship Specialty Start Date End Date Idalmis Sloan PCP - General Family Practice 11/04/13 documented as of this encounter
--- OUTSIDE RECORDS SUMMARY | 2021-12-11 15:33 | XMS_ITS | Encounter Summary ---
:1950 Author Organization [place] Address [address] [place] [address] Care Team Providers Name Role Phone Unavailable [...] Waleska Alcaraz - 03/21/2012 7:37 PM CST [facility] Triage Call Report Patient Name: Krys Mosher Call Date & Time: 03/21/2012 11:00:19AM Patient PCP Name: Idalmis Sloan MRN: Patient Address: [address] [address] Patient Date of : 1950 Age: 61 yr. 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
--- OUTSIDE RECORDS SUMMARY | 2021-12-11 15:33 | XMS_ITS | Encounter Summary ---
:1950 Author Organization [place] Address [address] [place] [address] Care Team Providers Name Role Phone Idalmis Sloan Primary Care Provider Encounter Details Date Type Department Care Team Description 10/02/2015 Telephone [facility] Nu rse Advisors Madelin Brown, RN [address] [place] [address] Social History Tobacco Use Types Packs/Day [...] on filedocumented in this encounter Care Teams Police Communications Dispatcher Relationship Specialty Start Date End Date Idalmis Sloan PCP - General Family Practice 11/04/13 documented as of this encounter
--- OUTSIDE RECORDS SUMMARY | 2021-12-11 15:33 | XMS_ITS | Encounter Summary ---
:1950 Author Organization [place] Address [address] [facility] [address] Care Team Providers Name Role Phone Unavailable Primary Care Provider Unavailable Encounter Details Date Type Department Care Team Description 08/25/2010 Discharge Summary [facility] Krysta, (System Development Manager) [facility] VIELKA Isabel Results [facility] [address] [id number] Social History Tobacco Use Types Packs/Day Years [...] CHAPARRO PA-C MT: [id number] Name: KRYS MOSHER Account: [id number] : 1950 Admit Date: Discharge Date: 08/25/2010 Document: [id number] documented in this encounter Plan of Treatment Not on filedocumented as of this encounter Visit Diagnoses Not on filedocumented in this encounter
--- OUTSIDE RECORDS SUMMARY | 2021-12-11 15:33 | XMS_ITS | Encounter Summary ---
:1950 Author Organization [place] Address [facility] [place] [address] Care Team Providers Name Role Phone Unavailable Primary Care Provider Unavailable Encounter Details Date Type Department Care Team Description 08/25/2010 Historic Notes INTERFACED REPORT Interface, Transcript onMD Social History Tobacco Use Types Packs/Day Years Used Date Smoking Tobacco: Never Assessed Sex Assigned at Date Recorded Not on file documented as of this encounter Progress Notes Interface, Contract Modeler - 12/02/2010 7:33 PM CDT Discharge Summary - Reason for Discharge Discharge from facility - Progress toward Goals partially met achieving short term goals/it service manager goals - Barriers to achieving Limited tolerance [...]
--- OUTSIDE RECORDS SUMMARY | 2021-12-11 15:33 | XMS_ITS | Encounter Summary ---
:1950 Author Organization [facility] Address [address] [place], [place] [address] Care Team Providers Name Role Phone Unavailable [...] Waleska Alcaraz - 08/02/2012 4:30 PM CDT [facility] Triage Call Report Patient Name: Krys Mosher Call Date & Time: 07/31/2012 2:40:00PM Patient PCP Name: Idalmis Sloan Patient Address: [facility] [place] [address] Patient Date of : 1950 Age: 62 yr. Patient Gender: Female Check And Transfer Beader Name: Viji Aguilar Presenting Problem: Call FNA [...] Dr Severino Catalan to Pt 's phone [phone]. Allergies Cipro, augmentin , sulfa and Lorazepam. [facility] phone [phone]. Triage Note: Guideline Title: Infection On Antibiotic [...]
--- OUTSIDE RECORDS SUMMARY | 2021-12-11 15:33 | XMS_ITS | Encounter Summary ---
:1950 Author Organization [place] Address [facility] [place] [address] Care Team Providers Name Role Phone Idalmis Sloan Primary Care Provider Encounter Details Date Type Department Care Team Description 11/12/2015 Therapy Visit [facility] [place] Saeed, PT Other postprocedural status(V45.89); Rehabilitation [facility] Sprain of left rotator cuff capsule, sub sequent encounter Services [place] [id number] [place] [address] [address]ty [address] Allen guzman DR [facility] [address] [address] [place], [place] [address] [address] [place] [address] [phone] Social History Tobacco Use Types Packs/Day Years [...] abd), MMT: L ER=3-/5, flex=3-/5, Abd=3-/5, PROM: qtto=646, joint creptation noted with painful movement, Avz=964, ER=45 ASSESSMENT/PLAN Updated problem list and treatment [...] Comme nts [facility] NEUROMUSCULAR Routine 11/12/2015 3:40 PM Other postprocedu ral RE-EDUCATION CDT status(V45.89) Sprain of left rotator cuff capsule, subsequent encounter [facility] THERAPEUTIC Routine 11/12/2015 3:40 PM Other postprocedura l EXERCISES CDT status(V45.89) Sprain of left rotator cuff capsule, subsequent encounter documented in this encounter Visit Diagnoses Diagnosis Other postprocedural status(V45.89) Other postprocedural status Sprain of left rotator cuff capsule, sub sequent encounter documented in this encounter Care Teams House Calls Nurse Relationship Specialty Start Date End Date Idalmis Sloan PCP - General Family Practice 11/04/13 documented as of this encounter
--- OUTSIDE RECORDS SUMMARY | 2021-12-11 15:33 | XMS_ITS | Encounter Summary ---
:1950 Author Organization [place] Address [address] [place] [address]. [place] [address] Care Team Providers Name Role Phone Idalmis Sloan Primary Care Provider Reason for Visit KIMBER Physical Therapy (Routine) - Denied Specialty Diagnoses / Procedures Referred By Contact Refer red To Contact Physical Therapy Diagnoses >4 s/p L rot tiff / mehdi lorenzana @ ortho / BCBS 30 visits per year Mehdi Gaffney MD Judd, Laurie, PT Procedures EXTREMITY INITIAL ORTHOPAEDIC AND [facility] [id number] [place] [address] [address] [place] [address] [place] [address] Fax: Referral ID Status Reason Start Date Expiration Date Visits V isits Requested Authorized KIMBER/WC/PT/L Denied 06/11/2015 06/10/2016 14 0 SHLDR POST [id number] Encounter Details Date Type Department Care Team Description 08/03/2015 [facility] Sprain of left rotator cuff capsule, subsequent encounter (Primary Dx); Rehabilitation Services CORRINA Melissa r postprocedural status(V45.89) [facility] [place] [address] [facility] [address] [place] [address] Social History Tobacco Use Types [...] cuff capsule, subsequent encounter Other postprocedural status(V45.89) [facility] NEUROMUSCULAR Routine 08/03/2015 10:32 AM Sprain of left r otator RE-EDUCATION CDT cuff capsule, subsequent encounter Other postprocedural status(V45.89) [facility] THERAPEUTIC Routine 08/03/2015 10:32 AM Sprain of left rot ator EXERCISES CDT cuff capsule, subsequent encounter Other postprocedural status(V45.89) documented in this encounter Visit Diagnoses Diagnosis Sprain of left rotator cuff capsule, sub sequent encounter - Primary Other postprocedural status(V45.89) Other postprocedural status documented in this encounter Care Teams Information Systems Technician Relationship Specialty Start Date End Date Idalmis Sloan PCP - General Family Practice 11/04/13 documented as of this encounter
--- OUTSIDE RECORDS SUMMARY | 2021-12-11 15:33 | XMS_ITS | Encounter Summary ---
:1950 Author Organization [place] Address [address] [facility] [place] [address] Care Team Providers Name Role Phone Idalmis Sloan Primary Care Provider Reason for Visit Reason Onset Date Comments Outreach 04/14/2017 UC FOLLOW UP - COMPL ETED Encounter Details Date Type Department Care Team Description 04/14/2017 Telephone [facility] Laith Oliver ( FOLLOW UP Urgent Care Lacy Craig MD - COMPLETED) [address] [facility] [address] [place], [place] [id number] [phone] Social History Tobacco Use Types Packs/Day Years [...] others? YES Comments: Appointment scheduled? NO Location? TRATOR OPERATOR documented in this encounter Plan of Treatment Not on filedocumented as of this encounter Visit Diagnoses Not on filedocumented in this encounter Care Teams Religion Professor Relationship Specialty Start Date End Date Idalmis Sloan PCP - General Family Practice 11/04/13 documented as of this encounter
--- OUTSIDE RECORDS SUMMARY | 2021-12-11 15:33 | XMS_ITS | Encounter Summary ---
:1950 Author Organization [place] Address [facility] [place] [address] Care Team Providers Name Role Phone Idalmis Sloan Primary Care Provider Reason for Visit KIMBER Physical Therapy (Routine) - Closed Specialty Diagnoses / Procedures Referred By Contact Refer red To Contact Physical Therapy Diagnoses >4, Back / Mercy Pedro @ [facility] Pain / BCBS Mercy Vasquez, TAX FORM PREPARER Daniel Shi, PT Procedures SPINE IN[facility]IAL [facility] PAIN [facility] [address] [place] [address] [place] [address] [place] [address] Referral ID Status Reason Start Date Expiration Date Visits Requ ested Visits Authorized [id number] Closed 07/22/2017 03/01/2018 20 18 Encounter Details Date Type Department Care Team Description 08/14/2017 Therapy Visit [facility] Jensen Hernandez, PT Lumbago (Primary Dx) Rehabilitation Services [address] [place] [address] DR Bryant Specialty [address] [address] [address] [place] [address] (Work) [phone] Social History Tobacco Use Types Packs/Day Years [...] is being advanced to more complex exercises. GIFT OFFICER/ATC plan: N/A Please refer to the daily flowsheet for treatment today, total treatment time and time spent performing 1:1 timed codes. Jensen Hernandez PT - 08/14/2017 5:20 PM CDT Subjective:SUBJECTIVE [...] Name Priority Date/Time Associated Diagnosis Comme nts [facility] NEUROMUSCULAR Routine 08/14/2017 6:01 PM Lumbago RE-EDUCATION CDT [facility] THERAPEUTIC EXERCISES Routine 08/14/2017 6:01 PM Lumbago CDT documented in this encounter Visit Diagnoses Diagnosis Lumbago - Primary documented in this encounter Care Teams Can Pusher Relationship Specialty Start Date End Date Idalmis Sloan PCP - General Family Practice 11/04/13 documented as of this encounter
--- OUTSIDE RECORDS SUMMARY | 2021-12-11 15:33 | XMS_ITS | Encounter Summary ---
:1950 Author Organization [facility] Address [address] [place], [place] [address] Care Team Providers Name Role Phone Unavailable [...] Waleska Alcaraz - 01/16/2012 7:49 PM CST [facility] Triage Call Report Patient Name: Krys Mohser Call Date & Time: 07/18/2011 8:05:57PM Patient PCP Name: Idalmis Sloan MRN: Patient Address: [address] [place] [address] Patient Date of : 1950 Age: 61 yr. Patient Gender: Female Air Purifier Servicer Name: Viji Hyatt Presenting Problem: I have an infected little toe. Red, painful, swollen. Went to a foot doctor amonth ago who shaved off a callus and a few days ago little right toe started getting red; now looks infected she states. Refuses ER due to high deductible and insurance problems; and wants to see if MD retail loss prevention officer would call in an ABX. Is allergic to : cipro possibly; sulfa and augmentin. Can take Keflex and levoquin she states. I called Dr. Chacon and he allowed me to call in an Rx Keflex po 500mg TID x7days. I called this into [facility] in [place]. This note will be faxed to [place] office; please ATTN: Dr. Sloan. Triage Note: Guideline Title: Toe / Toenail [...] Procedure Note: .Other right foot surgery 2006 BRAKE TESTER documented in this encounter Plan of Treatment Not on filedocumented as of this encounter Visit Diagnoses Not on filedocumented in this encounter
--- OUTSIDE RECORDS SUMMARY | 2021-12-11 15:33 | XMS_ITS | Encounter Summary ---
:1950 Author Organization [place] Address [address] [place] [address] Care Team Providers Name Role Phone Idalmis Sloan Primary Care Provider Encounter Details Date Type Department Care Team Description 11/16/2015 Therapy Visit [facility] [place] Saeed, PT Cervical radiculitis (Primary Dx); [facility] Sprain of left rotator cuff capsule, sub sequent encounter; Services [place] [address] [place] [address] Other postprocedural status(V45.89) Specialty Care Allen guzman DR [facility] [address] [address] [place], [place] [address] [address] [place] [address] [phone] Social History Tobacco Use Types Packs/Day Years Used Date Smoking Tobacco: Never Assessed Sex Assigned at Date Recorded Not on file documented as of this encounter Plan of Treatment Not on filedocumented as of this encounter Procedures Procedure Name Priority Date/Time Associated Diagnosis Comme [facility] THERAPEUTIC Routine 11/19/2015 7:32 AM Cervical radi culitis EXERCISES CDT Sprain of left rotator cuff capsule, subsequent encounter Other postprocedural status(V45.89) documented in this encounter Visit Diagnoses Diagnosis Cervical radiculitis - Primary Brachial neuritis or radiculitis nos Sprain of left rotator cuff capsule, sub sequent encounter Other postprocedural status(V45.89) Other postprocedural status documented in this encounter Care Teams Stationary Engineer Apprentice Relationship Specialty Start Date End Date Idalmis Sloan PCP - General Family Practice 11/04/13 documented as of this encounter
--- OUTSIDE RECORDS SUMMARY | 2021-12-11 15:33 | XMS_ITS | Encounter Summary ---
:1950 Author Organization [place] Address [address] [facility] [place] [address] Care Team Providers Name Role Phone Idalmis Sloan Primary Care Provider Reason for Visit Reason Comments Urgent Care Cough cough and sinus pressure, tr eated for bronchitis Encounter Details Date Type Department Care Team Description 04/05/2017 Office Visit [facility] Laith Oliver Acute maxillary Urgent Care Lacy Craig MD sinusitis, recurrence [address] not specified (Primary [facility], [place] [address] Dx) [id number] Social History Tobacco Use Types Packs/Day Years Used Date Smoking Tobacco: Never Smokeless Tobacco: Never Sex Assigned at Date Recorded Not on file documented as of this encounter Last Filed Vital Signs Vital Sign Reading Time Taken Comments Blood Pressure 136/78 04/05/2017 3:01 PM SAND MIXER Pulse 76 04/05/2017 3:01 PM SAND MIXER Temperature 36.9 ??C (98.5 ??F) 04/05/2017 3:01 PM SAND MIXER Respiratory Rate 18 04/05/2017 3:01 PM SAND MIXER Oxygen Saturation 96% 04/05/2017 3:01 PM SAND MIXER Inhaled Oxygen Concentration - - Weight 65.8 kg (145 lb) 04/05/2017 3:01 PM SAND MIXER Height - - Body Mass Index - [...] if getting worse . Laith Oliver MD MIXER documented in this encounter Nursing Notes Ana [...] on file to calculate BMI. Medication Reconciliation: incomplete [place] POLICE MANAGER MIXER documented in this encounter Plan of Treatment Not on filedocumented as of this encounter Visit Diagnoses Diagnosis Acute maxillary sinusitis, recurrence no t specified - Primary documented in this encounter Care Teams District Plant Superintendent Relationship Specialty Start Date End Date Idalmis Sloan PCP - General Family Practice 11/04/13 documented as of this encounter
--- OUTSIDE RECORDS SUMMARY | 2021-12-11 15:33 | XMS_ITS | Encounter Summary ---
:1950 Author Organization [place] Address [address] [place] [address] Care Team Providers Name Role Phone Unavailable Primary Care Provider Unavailable Encounter Details Date Type Department Care Team Description 08/26/2010 Historic Notes INTERFACED REPORT Interface, Transcript MD colby Social History Tobacco Use Types Packs/Day Years Used Date Smoking Tobacco: Never Assessed Sex Assigned at Date Recorded Not on file documented as of this encounter Progress Notes Interface, Paving Bed Maker - 12/02/2010 7:32 PM CDT Discharge Summary - Reason for Discharge Discharge from facility - Progress toward Goals partially met achieving short term goals/director long term care goals - Barriers to achieving Early discharge from facility goals - Continued Therapy No, family to assist at home Recommended Signatures JEFF CHAVEZ (OTR/L)[Signed 16:20] Authored: Discharge Summary documented in this encounter Plan of Treatment Not on filedocumented as of this encounter Visit Diagnoses Not on filedocumented in this encounter
--- OUTSIDE RECORDS SUMMARY | 2021-12-11 15:33 | XMS_ITS | Encounter Summary ---
:1950 Author Organization [place] Address [address] [place] [address]. [place] [address] Care Team Providers Name Role Phone Idalmis Sloan Primary Care Provider Reason for Visit KIMBER Physical Therapy (Routine) - Denied Specialty Diagnoses / Procedures Referred By Contact Refer red To Contact Physical Therapy Diagnoses >4 s/p L rot tiff / mehdi lorenzana @ ortho / BCBS 30 visits per year Mehdi Gaffney MD Judd, Laurie, PT Procedures EXTREMITY INITIAL ORTHOPAEDIC AND [facility] [address] [place] [address] [address] [facility] [address] [place] [address] [place] [address] Fax: Referral ID Status Reason Start Date Expiration Date Visits V isits Requested Authorized KIMBER/WC/PT/L Denied 06/11/2015 06/10/2016 14 0 SHLDR POST [id number] Encounter Details Date Type Department Care Team Description 08/09[facility]2015 [facility] Sprain of left rotator cuff capsule, sub sequent encounter (Primary Dx); [facility] Other postprocedural status(V45.89) Services [place] [id number] [place] [address] Specialty Care Allen BEGUM [address] [address] [place], [place] [address] [address] [place] [address] Social History Tobacco Use Types Packs/Day Years Used Date Smoking Tobacco: Never Assessed Sex Assigned at Date Recorded Not on file documented as of this encounter Plan of Treatment Not on filedocumented as of this encounter Procedures Procedure Name Priority Date/Time Associated Diagnosis Comme nts [facility] NEUROMUSCULAR Routine 08/10/2015 10:23 AM Sprain of left r otator RE-EDUCATION CDT cuff capsule, subsequent encounter Other postprocedural status(V45.89) [facility] THERAPEUTIC Routine 08/10/2015 10:23 AM Sprain of left rot ator EXERCISES CDT cuff capsule, subsequent encounter Other postprocedural status(V45.89) documented in this encounter Visit Diagnoses Diagnosis Sprain of left rotator cuff capsule, sub sequent encounter - Primary Other postprocedural status(V45.89) Other postprocedural status documented in this encounter Care Teams Riprap Man Relationship Specialty Start Date End Date Idalmis Sloan PCP - General Family Practice 11/04/13 documented as of this encounter
--- OUTSIDE RECORDS SUMMARY | 2021-12-11 15:33 | XMS_ITS | Encounter Summary ---
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
--- OUTSIDE RECORDS SUMMARY | 2021-12-11 15:33 | XMS_ITS | Encounter Summary ---
:1950 Author Organization [place] Address [address] [place] [address]. [place] [address] Care Team Providers Name Role Phone Idalmis Sloan Primary Care Provider Reason for Visit [facility] Physical Therapy (Routine) - Denied Specialty Diagnoses / Procedures Referred By Contact Refer red To Contact Physical Therapy Diagnoses >4 s/p L rot tiff / mehdi lorenzana @ ortho / BCBS 30 visits per year Mehdi Gaffney MD Judd, Laurie, PT Procedures EXTREMITY INITIAL [facility] [id number] [place] [address] DR BEGUM [address] [place] [address] [place] [address] Fax: Referral ID Status Reason Start Date Expiration Date Visits V isits Requested Authorized KIMBER/WC/PT/L Denied 06/11/2015 06/10/2016 14 0 SHLDR POST [id number] Encounter Details Date Type Department Care Team Description 06/21/2015 [facility] Sprain of left rotator cuff capsule, subsequent encounter (Primary Dx); Rehabilitation Services CORRINA Melissa Otnatacha r postprocedural status(V45.89) [facility] Care [place] [address] [facility] [address] [place] [address] Social History Tobacco Use Types [...] Diagnosis Comme nts [facility] THERAPEUTIC Routine 06/22/2015 10:17 AM Sprain of left rot ator EXERCISES CDT cuff capsule, subsequent encounter Other postprocedural status(V45.89) [facility] HOT OR COLD PACKS Routine 06/22/2015 10:17 AM Sprain of le ft rotator THERAPY CDT cuff capsule, subsequent encounter Other postprocedural status(V45.89) documented in this encounter Visit Diagnoses Diagnosis Sprain of left rotator cuff capsule, sub sequent encounter - Primary Other postprocedural status(V45.89) Other postprocedural status documented in this encounter Care Teams Wireless Consultant Relationship Specialty Start Date End Date Idalmis Sloan PCP - General Family Practice 11/04/13 documented as of this encounter
--- OUTSIDE RECORDS SUMMARY | 2021-12-11 15:33 | XMS_ITS | Encounter Summary ---
:1950 Author Organization [place] Address [facility] [place] [address] Care Team Providers Name Role Phone Idalmis Sloan Primary Care Provider Reason for Visit [facility] Physical Therapy (Routine) - Closed Specialty Diagnoses / Procedures Referred By Contact Refer red To Contact Physical Therapy Diagnoses >4, Back / Mercy Vasquez @ [facility] Pain / BCBS Mercy Vasquez, HEALTHCARE TECHNICIAN Daniel Shi, PT Procedures SPINE INITIAL [facility] PAIN [facility] [address] [place] [address] [place] [address] [place] [address] Referral ID Status Reason Start Date Expiration Date Visits Requ ested Visits Authorized [id number] Closed 07/22/2017 03/01/2018 20 18 Encounter Details Date Type Department Care Team Description 07/29/2017 Therapy Visit [facility] Daniel Shi Lumba go (Primary Rehabilitation Services PT Dx) [place] [facility] [address] [address] [facility] [address] [place] [address] [phone] Social History Tobacco Use Types Packs/Day Years Used Date Smoking Tobacco: Never Smokeless Tobacco: Never Sex Assigned at Date Recorded Not on file documented as of this encounter Progress Notes Anirudh Wells - 07/29/2017 3:10 PM CDT [facility] Initial Evaluation Krys Mosher [...] Sheet for this information) Short term and senior living goals: (See Goal Flow Sheet for this [...] Procedures Procedure Name Priority Date/Time Associated Diagnosis Brindae brissa Z NEUROMUSCULAR Routine 07/29/2017 6:00 PM Lumbago RE-EDUCATION CDT documented in this encounter Visit Diagnoses Diagnosis Lumbago - Primary documented in this encounter Care Teams Forestry Supervisor Relationship Specialty Start Date End Date Idalmis Sloan PCP - General Family Practice 11/04/13 documented as of this encounter
--- OUTSIDE RECORDS SUMMARY | 2021-12-11 15:33 | XMS_ITS | Encounter Summary ---
:1950 Author Organization [place] Address [address] [place] [address]. [place] [address] Care Team Providers Name Role Phone Idalmis [...] [facility] [id number] [place] [address] [address] BEGUM [address] [facility] [address] [place] [address] [place] [address] Fax: Referral ID Status Reason Start Date Expiration Date Visits V isits Requested Authorized KIMBER/WC/PT/L Denied 06/11/2015 06/10/2016 14 0 SHLDR POST [id number] Encounter Details Date Type Department Care Team Description 08/01/2015 [facility] Sprain of left rotator cuff capsule, sub sequent encounter (Primary Dx); Rehabilitation [facility] Other postprocedural status(V45.89) Services [place] [id number] [place] [address] Specialty Care Allen [address] [address] [place], [place] [address] [address] [place] [address] Social History Tobacco Use Types Packs/Day Years Used Date Smoking Tobacco: Never Assessed Sex Assigned at Date Recorded Not on file documented as of this encounter Plan of Treatment Not on filedocumented as of this encounter Procedures Procedure Name Priority Date/Time Associated Diagnosis Comme nts [facility] NEUROMUSCULAR Routine 08/02/2015 7:18 AM Sprain of left ro tator RE-EDUCATION CDT cuff capsule, subsequent encounter Other postprocedural status(V45.89) [facility] THERAPEUTIC Routine 08/02/2015 7:18 AM Sprain of left rota tor EXERCISES CDT cuff capsule, subsequent encounter Other postprocedural status(V45.89) documented in this encounter Visit Diagnoses Diagnosis Sprain of left rotator cuff capsule, sub sequent encounter - Primary Other postprocedural status(V45.89) Other postprocedural status documented in this encounter Care Teams Academic Specialist Relationship Specialty Start Date End Date Idalmis Sloan PCP - General Family Practice 11/04/13 documented as of this encounter
--- OUTSIDE RECORDS SUMMARY | 2021-12-11 15:33 | XMS_ITS | Encounter Summary ---
:1950 Author Organization [place] Address [address] [facility] [place] [address] Care Team Providers Name Role Phone Idalmis Sloan Primary Care Provider Encounter Details Date Type Department Care Team Description 11/04/2013 Hospital Encounter [facility] Jermaine Paz Ulceration (H) [facility] MD Chuck [address] [place], [place] ORTHOPEDICS [phone] [phone] [place] [address] (Wo rk) Social History Tobacco [...] site documented in this encounter Care Teams Hollow Ware Maker Relationship Specialty Start Date End Date Idalmis Sloan PCP - General Family Practice 11/04/13 documented as of this encounter
--- OUTSIDE RECORDS SUMMARY | 2021-12-11 15:33 | XMS_ITS | Encounter Summary ---
:1950 Author Organization [place] Address [address] [place] [address] Care Team Providers Name Role Phone Idalmis Sloan Primary Care Provider Encounter Details Date Type Department Care Team Description 11/22/2015 Therapy Visit [facility] Sandra Shelton, Sprain of left rotator cuff capsule, subsequent encounter (Primary Dx); Rehabilitation [facility] Other postprocedural status(V45.89) Services [facility] Specialty Care [facility] [id number] [place] [address] [place] [address] [address] [place] [address] [phone] Social History Tobacco Use Types Packs/Day Years Used Date Smoking Tobacco: Never Assessed Sex Assigned at Date Recorded Not on file documented as of this encounter Plan of Treatment Not on filedocumented as of this encounter Procedures Procedure Name Priority Date/Time Associated Diagnosis Comme nts [facility] NEUROMUSCULAR Routine 11/22/2015 4:54 PM Sprain of left ro tator RE-EDUCATION CDT cuff capsule, subsequent encounter Other postprocedural status(V45.89) [facility] THERAPEUTIC Routine 11/22/2015 4:54 PM Sprain of left rota tor EXERCISES CDT cuff capsule, subsequent encounter Other postprocedural status(V45.89) [facility] HOT OR COLD PACKS Routine 11/22/2015 4:54 PM Sprain of lef t rotator THERAPY CDT cuff capsule, subsequent encounter Other postprocedural status(V45.89) documented in this encounter Visit Diagnoses Diagnosis Sprain of left rotator cuff capsule, sub sequent encounter - Primary Other postprocedural status(V45.89) Other postprocedural status documented in this encounter Care Teams Promotional Model Relationship Specialty Start Date End Date Idalmis Sloan PCP - General Family Practice 11/04/13 documented as of this encounter
--- OUTSIDE RECORDS SUMMARY | 2021-12-11 15:34 | XMS_ITS | Encounter Summary ---
:1950 Author Organization [place] Address [facility] [place] [address] Care Team Providers Name Role Phone Unavailable Primary Care Provider Unavailable Encounter Details Date Type Department Care Team Description 08/23/2010 Hospital Laboratory [facility] Results Carlos simmons PA-C [facility] [address] [address] (Wo rk) Social History Tobacco Use Types [...] Signature Hemoglobin 10.4 (L) 11.7 - 15.7 [place] g/dL [facility] Specimen Anatomical Collection Method Collection Time Receive d Time (Source) Location / / Volume Laterality 08/23/2010 7:30 AM 1 7:38 CDT AM CDT Maame Chaparro PA-C LAB - BLOOD ORDERABLES Performing Organization Address City/State/ZIP Code Phon e Number [facility] [address] [place], [place] [address] [facility] (ABNORMAL) Basic metabolic panel (08/23/2010 7:30 AM CDT) P athologist Signature Sodium 138 133 - 144 [place] mmol/L [facility] Potassium 4.1 3.4 - 5.3 [place] mmol/L [facility] Chloride 108 94 - 109 [place] mmol/L [facility] Carbon Dioxide 26 20 - 32 [place] mmol/L [facility] Anion Gap 4 (L) 6 - 17 [place] mmol/L [facility] Glucose 101 (H) 60 - 99 [place] mg/dL [facility] Urea Nitrogen 7 7 - 30 [place] mg/dL [facility] Creatinine 0.69 0.52 [facility] 1.04 mg/dL [facility] GFR Estimate 87 >60 [place] mL/min/[address] [place] [address] LAB GFR Estimate If >90 >60 [place] Black mL/min/1.[address] [place] [address] LAB Calcium 8.3 (L) 8.5 - 10.4 [place] mg/dL [facility] Specimen Anatomical Collection Method Collection Time Receive d Time (Source) Location / / Volume Laterality 08/23/2010 7:30 AM 1 7:38 CDT AM CDT Maame Chaparro PA-C LAB - BLOOD ORDERABLES Performing Organization Address City/State/ZIP Code Phon e Number [facility] [address] [place], [place] [address] [facility] documented in this encounter Visit Diagnoses Not on filedocumented in this encounter
--- OUTSIDE RECORDS SUMMARY | 2021-12-11 15:34 | XMS_ITS | Encounter Summary ---
:1950 Author Organization [place] Address [facility] [place] [address] Care Team Providers Name Role Phone Unavailable Primary Care Provider Unavailable Encounter Details Date Type Department Care Team Description 08/21/2010 Consultation [facility] Idalmis Schwab, Hospital Results RN [facility] [address] [place], [place] [address] (Wo rk) Social History [...] same nurse practitioner, Sherry Arambula of the [facility]. It does not appear that [...] a pain clinic and that would be [facility] that is located in [place]. 3. Esophageal reflux. 4. Tobacco use. 5. [...] 100 mg b.i.d. She is on a HEEL WHEELER Dilaudid. She can have 0.1-0.2 q.6minutes with a continuous rate of 0.1-0.2 for an hour limit of 1.5. She has not taken any other medswhile here. REVIEW OF SYSTEMS: Please see the [facility] adult patient profile done by Amanda [...] but does have pain meds ordered per HEEL WHEELER. Patient having somatosensory-type of inflammatory pain postop. PLAN: 1. We will leave HEEL WHEELER as it was written for. Patient is [...] CARROLL Name: KRYS MOSHER MRN: [id number] Account: [id number] : 1950 Consult Date: 08/21/2010 Document: [id number] cc: SAIMA MCHUGH PA-C documented in this encounter Plan of Treatment Not on filedocumented as of this encounter Visit Diagnoses Not on filedocumented in this encounter
--- OUTSIDE RECORDS SUMMARY | 2021-12-11 15:34 | XMS_ITS | Encounter Summary ---
:1950 Author Organization [place] Address [facility] [place] [address] Care Team Providers Name Role Phone Unavailable Primary Care Provider Unavailable Encounter Details Date Type Department Care Team Description 08/22/2010 Historic Notes INTERFACED REPORT Interface, Transcript onMD Social History Tobacco Use Types Packs/Day Years Used Date Smoking Tobacco: Never Assessed Sex Assigned at Date Recorded Not on file documented as of this encounter Progress Notes Interface, Mail Technician - 12/02/2010 7:39 PM CDT Patient Status - Physical status Stable (s/s of potential complications absent or manageable) - Psychosocial status Stable Discharge Planning - Discharge From: [facility] - Patient Care Unit: ms 2 - [...] Materials, and Instructions, Follow Up Care Interface, Mail Technician - 12/02/2010 7:39 PM CDT General Information [...] Safety and intact Judgment: Pain - Pain: 6-09/08 Posture - Posture: Posture was appropriate Range of Motion - Comment: demo's adequate LE ROM for mobility Strength - Comments: good quad sets bilaterally Bed Mobility: Rolling/Turning - Level of stand-by assist [place]: Bed Mobility: Scooting/Bridging - Level of stand-by assist [place]: Bed Mobility: Sit to Supine - Level of stand-by assist [place]: Bed Mobility: Supine to Sit - Level of stand-by assist [place]: Bed Mobility Analysis - Impairments pain Contributing to Impaired Bed Mobility: Transfer: Sit to Stand - Level of CGA [place]: - Physical verbal cues; supervision Assist/Nonphysical Assist: Transfer: Stand to Sit - Level of stand-by assist [place]: Gait Skills - Level of minimum assist (75% patients effort) [place]: - Physical verbal cues Assist/Nonphysical Assist: - Assistive Device: RICE DRIER OPERATOR and IV pole - Gait Distance: 20' to door and back Gait Analysis - Gait Pattern Used: swing-to gait - Gait Deviations decreased jeffery; decreased step length Noted: - Impairments pain Contributing to Gait Deviations: Balance Skills Assessment - Sitting Balance: independent Static: - Sitting Balance: independent Dynamic: - Zwz-wx-Jepue Balance: minimum assist (75% patients effort) - [...] - Anticipated Equipment elastic laces and a claims counsel at Discharge: - Risks and Benefits of [...] Assessment, Sensation, Treatment Plan, Clinical Impression Interface, Mail Technician - 12/02/2010 7:38 PM CDT SH - Responded to referral per pt. request for emotional support. Pt. is recovering from back surgery, and she says it went very well, expresses gratitude for Dr. Comer's skill and the quality of care she has received from nursing staff. 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 Pt. is originally from [place], [place] where she was a [facility] of [facility] [employer], has not found a new aisha home since moving to [place], [place] but says she attends chapel at [facility] occasionally. Pt.'s family have not been able to visit due to a wedding in [place], but said her should be back in time for discharge. Offered active listening, emotional support, prayed for comfort and healing and gave thanks for successful surgery. Will follow up if needs arise. [Signature] Author: MARY ELIAS ([employer] Technician) [Signed 10:25] documented in this encounter Plan of Treatment Not on filedocumented as of this encounter Visit Diagnoses Not on filedocumented in this encounter
--- OUTSIDE RECORDS SUMMARY | 2021-12-11 15:34 | XMS_ITS | Encounter Summary ---
:1950 Author Organization [place] Address [facility] [place] [address] Care Team Providers Name Role Phone Unavailable Primary Care Provider Unavailable Encounter Details Date Type Department Care Team Description 08/23/2010 Historic Notes INTERFACED REPORT Israel Schwab RN [facility] [address] [place], [place] [address] (Wo rk) Social History [...] been Management: getting the 50mg dose) Dilaudid RECREATIONAL DIRECTOR 0.1-0.2 Q 6 min CR 0.1-0.2 mg [...] and coordination of care Signatures ISRAEL SCHWAB (AUTOMATIC PILOT MECHANIC)[Signed 14:10] Authored: Interval History/Chief Complaint, Review of Systems, Physical Exam, Vital Signs/Labs/Imaging/Culture Review, Pain Score and Medications, Assessment and Plan documented in this encounter Plan of Treatment Not on filedocumented as of this encounter Visit Diagnoses Not on filedocumented in this encounter
--- OUTSIDE RECORDS SUMMARY | 2021-12-11 15:34 | XMS_ITS ---
:1950 Author Care Team Providers Name Role Phone Ed Travis Primary Care Provider Unavailable Allergies Code Code System Name Reaction Severity Status Onset 382101 RxNorm Augmentin ? ? Active ? 7052 [...] ? Specific 1.025 1.005-1.030 Final [facility]: Complete [place] [address], [place] ? ? URINE ? Ph 5.5 5.0-7.5 Final [facility]: [address], [place] ? ? URINE ? Urine-colo yellow yellow Final [facility]: r [address], [place] ? ? URINE ? Appearance clear clear Final [facility]: [address], [place] ? ? URINE ? WBC negative negative Final [facility]: Esterase [address], [place] ? ? URINE ABNOR Protein 1+ negative/tra Final [facility]: MAL ce [address], [place] ? ? URINE ? Glucose negative negative Final [facility]: [address], [place] ? ? URINE ABNOR Ketones trace negative Final [facility]: MAL [address], [place] ? ? URINE ? Occult negative negative Final [facility]: Blood [address], [place] ? ? URINE ? Bilirubin negative negative Final [facility]: [address], [place] ? ? URINE ? Urobilinog 0.2 0.2-1.0 Final [facility]: en,semi-qn mg/dL mg/dL [address], [place] ? ? URINE ? Nitrite, negative negative Final Lab [facility]: Urine [address], [place] ? ? URINE ? Microscopi see ? Final [facility]: c below: [address], [place] ? ? URINE ? Wbc 0-5 /hpf 0 - 5 /hpf Final [facility] or[facility]: [address], [place] ? ? URINE ? Rbc 0-2 /hpf 0 - 2 /hpf Final [facility] or[facility]: [address], [place] ? ? URINE ? Epithelial 0-10 0 - 10 /hpf Final [facility]: Cells (Non /hpf [address], [place] ? ? URINE ? Epithelial information technology associate ? Cancelle [facility]: Cells d [address], [place] ? ? URINE ? Casts information technology associate ? Cancelle [facility]: d [address], [place] ? ? URINE ? Cast Type information technology associate ? Cancelle [facility]: d [address], [place] ? ? URINE ABNOR Crystals present n/a Final [facility]: MAL [address], [place] ? ? URINE ? Crystal amorphou n/a Final [facility]: Type s [address], [place] ? ? URINE ? Mucus present not estab. Final [facility]: Threads [address], [place] ? ? URINE ? Bacteria few none Final [facility] : seen/few [address], [place] ? ? URINE ? Yeast information technology associate ? Cancelle [facility]: d [address], [place] ? ? URINE ? Trichomona information technology associate ? [facility]ancelle [facility]: s d [address], [place] ? ? URINE ? Comment information technology associate ? Cancelle [facility]: d [address], [place] ? ? URINE ? Microscopi information technology associate ? [facility]ancelle Lab [facility]: c d [address], [place] 07/16/2020 Culture, URINE ABNOR Urine final ? Final [facility] orp Urine MAL Culture, report ([place] Routine ): [address] [facility] [place] ? ? URINE ABNOR Result 1 comment ? Final [facility] p MAL ([place] ): [address] [facility] [place] ? ? URINE ABNOR Result 2 serratia ? Final [facility] MAL maryce ([place] ns ): [address] [facility] [place] ? ? URINE ? Antimicrob comment ? Final Lab[facility] orp ial ([place] Susceptibil ): [address] [facility] [place] Past Encounters 07/16/2020 Cellulitis of Toe of Right Foot; Urinary Tract Infectious Disease [facility]: [address] [facility], [address], [place] [address], Ph. Social History Tobacco Smoking Status Former Smoker Vaccine List None recorded. Plan of Care Reminders Provider Appointments None recorded. ? ? Lab None recorded. ? ? Referral None recorded. ? ? Procedures None recorded. ? ? Surgeries None recorded. ? ? Imaging None recorded. ? ? Vitals Weight BMI Blood Pressure 160/91 mm[Hg]
--- OUTSIDE RECORDS SUMMARY | 2021-12-11 15:34 | XMS_ITS | Encounter Summary ---
:1950 Author Organization [place] Address [address] [facility] [place] [address] Care Team Providers Name Role Phone Unavailable Primary Care Provider Unavailable Encounter Details Date Type Department Care Team Description 08/21/2010 Operative Report [facility] Jose Comer (Hospital Manager) [facility] MD Dipti Results [facility] [address] [facility] [address] [place] [address] Social History Tobacco Use Types [...] of pedicle screw mary fixation, L3-L4 (CD). 8.[place] of autogenous bone marrow, right ilium. SURGEON: Jose Comer MD CONFIGURATION SPECIALIST: Bethany Chaparro PA-C, INDICATIONS FOR PROCEDURE: Krys [...] of L2 and L4 with a #1 [place], and then using a 4 mm [place] [...] of L2 and L4, using a #1 [place], and then with the help of a [...] material for the fusion in the lat eral gutters, I then decorticated the L2-L3 and [...] The set nuts were torqued to the can solderer's specifications with a torque wrench. The wound [...] in good condition. Revised: , , Document: [id number], EM#[id number] Electronically signed on 08/22/2010 06:48 by JOSE COMER MD MT: [id number] Name: KRYS MOSHER Account: [id number] : 1950 Procedure Date: 08/21/2010 Document: [id number] cc: Idalmis Sloan MD documented in this encounter Plan of Treatment Not on filedocumented as of this encounter Visit Diagnoses Not on filedocumented in this encounter
--- OUTSIDE RECORDS SUMMARY | 2021-12-11 15:34 | XMS_ITS | Encounter Summary ---
:1950 Author Organization [place] Address [facility] [place] [address] Care Team Providers Name Role Phone Unavailable Primary Care Provider Unavailable Encounter Details Date Type Department Care Team Description 08/23/2010 Historic Notes INTERFACED REPORT Interface, Transcript on, Social History Tobacco Use Types Packs/Day Years Used Date Smoking Tobacco: Never Assessed Sex Assigned at Date Recorded Not on file documented as of this encounter Progress Notes Interface, Chair Mender - 12/02/2010 7:36 PM CDT General Information [...] Level of moderate assist (50% patients effort) [place]: - Physical 1 person assist Assist/Nonphysical Assist: Bed Mobility: Sit to Supine - Level of moderate assist (50% patients effort) [place]: - Physical 1 person assist Assist/Nonphysical Assist: Bed Mobility: Supine to Sit - Level of moderate assist (50% patients effort) [place]: - Physical 1 person assist Assist/Nonphysical Assist: Bed Mobility Analysis - Impairments pain; post surgical precautions; decreased Contributing to strength Impaired Bed Mobility: Transfer: Sit to Stand - Level of minimum assist (75% patients effort) [place]: - Physical 1 person assist Assist/Nonphysical Assist: Transfer: Stand to Sit - Level of minimum assist (75% patients effort) [place]: - Physical 1 person assist Assist/Nonphysical Assist: Transfer: Sit/Stand Safety Analysis - Impairments pain; post surgical precautions; decreased Contributing to strength Impaired Transfers: Lower Body Dressing - Level of maximum assist (25% patients effort) [place]: - Physical 1 person assist Assist/Nonphysical Assist: [...] therapy goals): - Demonstrates need for PT; AVIATION ELECTRONICS TECHNICIAN referral to another service: - Predicted Duration of 3-4 days Therapy: - Predicted Frequency daily of Therapy: - Discharge Rehabilitation facility; TCU versus home with Destination: assist pending progress - Anticipated Equipment Wrapper Selector; Dressing equipment at Discharge: - Risks and [...]
--- OUTSIDE RECORDS SUMMARY | 2021-12-11 15:34 | XMS_ITS | Encounter Summary ---
:1950 Author Organization [place] Address [facility] [place] [address] Care Team Providers Name Role Phone Unavailable Primary Care Provider Unavailable Encounter Details Date Type Department Care Team Description 08/16/2010 Historic Notes INTERFACED REPORT Interface, Transcript onMD Social History Tobacco Use Types Packs/Day Years Used Date Smoking Tobacco: Never Assessed Sex Assigned at Date Recorded Not on file documented as of this encounter Progress Notes Interface, Fourdrinier Machine Tender - 12/02/2010 7:47 PM CDT General Information - How to be Addressed [place] - Source of Information patient - Patient Belongings clothing; glasses; walker and cane - china and silverware salesperson #1: Sachin - Relationship to patient #1: - Phone 1: [phone] - china and silverware salesperson #2: Sabiha Burgess - Relationship to sister patient #2: - Phone 1: [phone] - Patient's spoken language; Yakut or Bilingual communication style Advance Directive - [...] abuse, self neglect, lack of adequate food, assisted, medical care, or financial exploitation)? Values/Beliefs/Spiritual Care - C: Community: In hospital landcare facilitator support of your spiritual health, is there someone we may contact for you? (identify all that apply) Learning Assessment - Factors Influencing no factors identified Readiness to Learn - Factors that Impact none Ability to Learn - Learning Preferences skill demonstration; written material - Cultural none Considerations - Developmental none Considerations - Lutheran none Considerations Mutuality/Individual Preferences - What information none would help us give you more personalized care? Signatures KAYLEIGH MAX (RN)[Signed 15:03] Authored: General Information, Skin Inspection, Coping Stress/Abuse Rosario Prado (Pairer Substandard)[Signed 17:38] Authored: Advance Directive JOSE BROWN (RN)[Signed [...]
--- OUTSIDE RECORDS SUMMARY | 2021-12-11 15:34 | XMS_ITS | Encounter Summary ---
:1950 Author Organization [place] Address [address] [place] [address]. [place] [address] Care Team Providers Name Role Phone Unavailable Primary Care Provider Unavailable Encounter Details Date Type Department Care Team Description 08/21/2010 Hospital Laboratory [facility] Results MD Dipti [facility] [address] [facility] [address] [place] [address] (Wo rk) Social History Tobacco [...] At Patho logist Time Signature ABO A [facility] RH(D) Pos [facility] Antibody Neg [facility] LAB Specimen 08/24/2010 [facility] LAB Specimen Anatomical Collection Method Collection Time Receive d Time (Source) Location / / Volume Laterality 08/21/2010 6:15 AM 1 6:17 CDT AM CDT Jose Comer MD LAB - BLOOD BANK TEST ORDER Performing Organization Address City/State/ZIP Code Phon e Number [facility] [address] [place], [place] [address] [facility] documented in this encounter Visit Diagnoses Not on filedocumented in this encounter
--- OUTSIDE RECORDS SUMMARY | 2021-12-11 15:34 | XMS_ITS | Encounter Summary ---
:1950 Author Organization [place] Address [facility] [place] [address] Care Team Providers Name Role Phone Unavailable Primary Care Provider Unavailable Encounter Details Date Type Department Care Team Description 08/22/2010 Historic Notes INTERFACED REPORT Israel Schwab RN [facility] [address] [place], [place] [address] (Wo rk) Social History [...] was around 8/10. She feels that the HEALTH AND PHYSICAL EDUCATION TEACHER with the vistaril and tylenol are a [...] one 50 mg dose this AM) Dilaudid HEALTH AND PHYSICAL EDUCATION TEACHER 0.1-0.2 Q 6 min with CR of [...] with current interventions. Plan: 1. Will keep HEALTH AND PHYSICAL EDUCATION TEACHER as it is, since she is doing [...] and coordination of care. Signatures ISRAEL SCHWAB (TELEVISION MAINTENANCE WORKER)[Signed 09:46] Authored: Interval History/Chief Complaint, Review of Systems, Physical Exam, Vital Signs/Labs/Imaging/Culture Review, Pain Score and Medications, Assessment and Plan documented in this encounter Plan of Treatment Not on filedocumented as of this encounter Visit Diagnoses Not on filedocumented in this encounter
--- OUTSIDE RECORDS SUMMARY | 2021-12-11 15:34 | XMS_ITS | Encounter Summary ---
:1950 Author Organization [place] Address [address] [facility] [place] [address] Care Team Providers Name Role Phone Unavailable Primary Care Provider Unavailable Encounter Details Date Type Department Care Team Description 08/21/2010 Results Only [facility] Jose Comer, Hospital Results [facility] [address] [place] [address] (Wo rk) Social History Tobacco [...] 1 vw port (08/21/2010 10:00 AM CDT) Anatomical Region Laterality Modality Spine Other Specimen (Source) Anatomical Collection Method Collection Time Re ceived Time Location / / Volume Laterality 08/21/2010 10:00 AM CDT Impressions 08/21/2010 4:45 PM CDT PA AND CROSSTABLE LATERAL LUMBAR SPINE C OMPLETED PORTABLY IN OR ??Aug 21, 2010 10:00:00 AM HISTORY: Evaluation of posterior fusion. COMPARISON: 08/21/2010 initial crosstable lateral study. FINDINGS: Bilateral transpedicular screw s now demonstrated L2, L3, L4, and L5 with accompanying mary instrumenta tion. Wide laminectomy at L4 and L5. Jose Comer MD [facility] DI[facility]NOST[facility] IMAGING ORDER TRELL X-ray Lumbar spine 1 vw port (08/21/2010 8:46 AM CDT) Anatomical Region Laterality Modality Spine Other Specimen (Source) Anatomical Collection Method Collection Time Re ceived Time Location / / Volume Laterality 08/21/2010 8:46 AM CDT Impressions 08/21/2010 4:45 PM CDT PORTABLE CROSSTABLE LATERAL LUMBAR SPINE IN OR ??Aug 21, 2010 8:46:00 AM HISTORY: Localization. COMPARISON: None. FINDINGS: Localizing probe overlies pedi jaydon of L2 extending anteriorly to mid vertebral body. Bilateral transpedicular screws with mary instrumentation accompanying prior fusion L3-L4. Prior anterior fusio n at this level as well. Jose CRAWFORD DIAGNOSTIC IMAGING ORDER TRELL documented in this encounter Visit Diagnoses Not on filedocumented in this encounter
--- OUTSIDE RECORDS SUMMARY | 2021-12-11 15:34 | XMS_ITS | Encounter Summary ---
:1950 Author Organization [place] Address [facility] [place] [address] Care Team Providers Name Role Phone Unavailable Primary Care Provider Unavailable Encounter Details Date Type Department Care Team Description 08/22/[address] [facility] Results Carlos simmons PA-C [facility] [address] [address] (Wo rk) Social History Tobacco Use Types [...] Signature Hemoglobin 10.4 (L) 11.7 - 15.7 [facility] g/dL [facility] Specimen Anatomical Collection Method Collection Time Receive d Time (Source) Location / / Volume Laterality 08/22/2010 7:55 AM 1 7:58 CDT AM CDT Maame Chaparro PA-C LAB - BLOOD ORDERABLES Performing Organization Address City/State/ZIP Code Phon e Number [facility] [address] [place] [place], [place] [address] [facility] (ABNORMAL) Basic metabolic panel (08/22/2010 7:55 AM CDT) P athologist Signature Sodium 138 133 - 144 [facility] mmol/L [facility] Potassium 4.2 3.4 - 5.3 [facility] mmol/L [facility] Chloride 107 94 - 109 [facility] mmol/L [facility] Carbon Dioxide 24 20 - 32 [facility] mmol/L [facility] Anion Gap 8 6 - 17 [facility] mmol/L [facility] Glucose 112 (H) 60 - 99 [facility] mg/dL [facility] Urea Nitrogen 10 7 - 30 [facility] mg/dL [facility] Creatinine 0.74 0.52 - [facility] 1.04 mg/dL [facility] GFR Estimate 80 >60 [facility] mL/min/[address] [place] [address] LAB GFR Estimate If >90 >60 [facility] Black mL/min/1.[address] [place] [address] LAB Calcium 7.7 (L) 8.5 - 10.4 [facility] mg/dL [facility] Specimen Anatomical Collection Method Collection Time Receive d Time (Source) Location / / Volume Laterality 08/22/2010 7:55 AM 1 7:58 CDT AM CDT Maame Chaparro PA-C LAB - BLOOD ORDERABLES Performing Organization Address City/State/ZIP Code Phon e Number [place] [address] [place], [place] [address] [facility] documented in this encounter Visit Diagnoses Not on filedocumented in this encounter
== END 2021-12-11 15:29 | disposition home or self-care (01) ==
LOC: WOUND 15:28
PROVIDERS: Visit Provider Surgery
DX: L89.891 Pressure ulcer of other site, stage 1 (principal); M14.60 Charcot's joint, unspecified site; I73.9 Peripheral vascular disease, unspecified
CPT/HCPCS: 11042

== ENCOUNTER 2021-12-19 15:39 | Outpatient (CLI) | payer MEDICARE, SELFPAY ==
--- OUTSIDE RECORDS SUMMARY | 2021-12-19 15:43 | XMS_ITS | Encounter Summary ---
:1950 Author Organization [facility] Address [address] [place] [address] Care Team Providers Name Role Phone Unavailable Primary Care Provider Unavailable Reason for Visit Reason Comments ECZEMA Encounter Details Date Type Department Care Team Description 11/04/2012 Procedure Visit [place] [facility] Nurse, Bravo Chao ECZEMA [address] [place] [address] Social History Tobacco Use Types [...]
--- OUTSIDE RECORDS SUMMARY | 2021-12-19 15:43 | XMS_ITS | Encounter Summary ---
:1950 Author [facility] Address [address] [place] [address] Care Team Providers Name Role Phone Unavailable Primary Care Provider Unavailable Reason for Visit Reason Comments Other Encounter Details Date Type Department Care Team Description 11/20/2017 Telephone [facility] [address] Dustin Cagle MD Other Endocrinology [address] [place] [phone] (Wo rk) Social History Tobacco Use Types [...]
--- OUTSIDE RECORDS SUMMARY | 2021-12-19 15:43 | XMS_ITS | Encounter Summary ---
:1950 Author Organization [facility] Address [address] [place] [address] Care Team Providers Name Role Phone Unavailable Primary Care Provider Unavailable Reason for Visit Reason Comments DERMATITIS Encounter Details Date Type Department Care Team Description 12/02/2012 Procedure Visit [place] [facility] Nurse, Bravo Chao DERMATITIS [address] [place] [address] Social History Tobacco Use Types [...]
--- OUTSIDE RECORDS SUMMARY | 2021-12-19 15:43 | XMS_ITS | Encounter Summary ---
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 [address] [place], [place] [phone] [address] Social History Tobacco Use Types Packs/Day Years Used Date Smoking Tobacco: Never Assessed Sex Assigned at Date Recorded Not on file documented as of this encounter Last Filed Vital Signs Vital Sign Reading Time Taken Comments Blood Pressure 124/68 03/03/2013 10:55 AM BARREL CUTTER Pulse 84 03/03/2013 10:55 AM BARREL CUTTER Temperature 36.5 ??C (97.7 ??F) 03/03/2013 10:55 AM BARREL CUTTER Respiratory Rate - - Oxygen Saturation - - Inhaled Oxygen Concentration - - Weight - - Height - - Body Mass Index - - documented in this encounter Patient Instructions Patient InstructionsMoTammie cullen - 03/03/2013 11:13 AM CST Delsym for cough Mucinex D for sinus congestion. Ask the Pharmacist for this EL CUTTER documented in this encounter Progress Notes Tammie [...] 7 days. Take 30 minutes before first [id number]. Avoid lying down for 30 minutes. ??? [...] discharged ambulatory and in stable condition. *SH~[id number]~SOAP1 EL CUTTER documented in this encounter Plan of Treatment Not on filedocumented as of this encounter Visit Diagnoses Diagnosis Acute bronchitis - Primary documented in this encounter
--- OUTSIDE RECORDS SUMMARY | 2021-12-19 15:43 | XMS_ITS | Encounter Summary ---
:1950 Author Organization [facility] Address [address] [place] [address] Care Team Providers Name Role Phone Unavailable Primary Care Provider Unavailable Reason for Visit Reason Comments ECZEMA Encounter Details Date Type Department Care Team Description 11/02/2012 Procedure Visit [place] [facility] Nurse, Bravo Chao ECZEMA [address] [place] [address] Social History Tobacco Use Types [...]
--- OUTSIDE RECORDS SUMMARY | 2021-12-19 15:43 | XMS_ITS | Encounter Summary ---
:1950 Author Organization [facility] Address [address] [place] [address] Care Team Providers Name Role Phone Unavailable Primary Care Provider Unavailable Encounter Details Date Type Department Care Team Description 10/25/2012 Lab Visit [facility] 3850 Rash and other nonspecific skin eruption; Laboratory Unspecified pruritic disorde r [address] [place], [place] [address] Social History Tobacco Use Types Packs/Day Years [...] and let her know lymphocytes are ok UCTION DEPARTMENT SUPERVISOR Miscellaneous - 04/11/2016 4:09 AM CSTNotes Recorded by Hira Link RN on 10/25/2012 at 5:13 PMPt notified.------Notes Recorded by Megan Son MD on 10/25/2012 at 3:42 PMPlease call and let her know lymphocytes are ok UCTION DEPARTMENT SUPERVISOR documented in this encounter Plan of [...] - 10/25/2012 12:26 PM CDT Performed at [facility], [address] [place] [address] Transcriptions 04/11/2016 4:09 AM CSTNotes Recorded by [...] - 10/25/2012 12:26 PM CDT Performed at [facility], [address] [place] [address] Transcriptions 04/11/2016 4:09 AM CSTNotes Recorded by [...]
--- OUTSIDE RECORDS SUMMARY | 2021-12-19 15:43 | XMS_ITS | Clinical Summary ---
:1950 Author Organization [facility] Address [address] [place] [address] Care Team Providers Name Role Phone Unavailable [...] for each transition of care or referral. [facility] Allergies Active Allergy Reactions Severity Noted Date [...] 36.5 ??C (97.7 ??F) 03/03/2013 10:55 AM BRAN MIXER Respiratory Rate - - Oxygen Saturation - [...] Typ e / Group Dates [facility] MEDICARE [id number] 2018-Pre [phone] [address] Medicare ADVANTAGE sent [phone] [place] [address]
--- OUTSIDE RECORDS SUMMARY | 2021-12-19 15:43 | XMS_ITS | Encounter Summary ---
:1950 [facility] Address [address] [place] [address] Care Team Providers Name Role Phone Unavailable Primary Care Provider Unavailable Reason for Visit Reason Comments Rash SWELLING, LEG Encounter Details Date Type Department Care Team Description 11/27/2012 Nurse Triage [facility] 380 Found, No Pcp , Rash; SWELLING, LEG Dermatology [address] [facility] [address] [place] [address] [address] [place] [address] Social History Tobacco Use Types Packs/Day Years Used Date Smoking Tobacco: Never Assessed Sex Assigned at Date Recorded Not on file documented as of this encounter Nursing Notes Vicki Andrew - 11/27/2012 2:28 PM CDT Protocol: LEG SWELLING AND [id number] Affirmative: [1] Thigh, calf, or ankle swelling [...]
--- OUTSIDE RECORDS SUMMARY | 2021-12-19 15:43 | XMS_ITS | Encounter Summary ---
:1950 [facility] Address [address] [place] [address] Care Team Providers Name Role Phone Unavailable Primary Care Provider Unavailable Encounter Details Date Type Department Care Team Description 11/16/2017 Lab Visit [facility] Elevated parathyroid hormone ; [address] Subclinical hyperthyroidism; [place] [address] Hypocalcemia [phone] Social History Tobacco Use Types Packs/Day Years [...] Transglutaminase Ab IgA (11/16/2017 3:17 PM CDT) [facility] Method Time Signature TISSUE 0.4 0.0 - 6.9 PN SOFT TRANSGLUTAMINASE AB IU/L IGA Comment: Reference Range: <7 Negative, 7 - 10 Equivocal, >10 Posit sung Specimen Anatomical Collection Method Collection Time Receive d Time (Source) Location / / Volume Laterality 11/16/2017 3:17 PM 8 8:53 CDT PM CDT Narrative PN SOFT - 11/18/2017 12:30 [place] [address] CLIA number [id number] Anirudh Cagle MD LAB_1 Performing Organization Address [facility] Phon e Number PN SOFT [address] [place] [address] Celiac Disease Reflex Panel IgA (11/16/2017 3:17 PM CDT) athologist Signature IGA 198 69 - 517 PN SOFT mg/dL Specimen Anatomical Collection Method Collection Time Receive d Time (Source) Location / / Volume Laterality 11/16/2017 3:17 PM 8 8:54 CDT PM CDT Narrative PN SOFT - 11/16/2017 9:14 PM CDT Performed at [address] [address] CLIA number [id number] Anirudh Cagle MD LAB_1 Performing Organization Address [facility] Phon e Number PN SOFT [address] [place] [address] Tsh Receptor Antibody (11/16/2017 3:17 PM CDT) athologist Signature TSH Receptor <0.90 <=1.75 IU/L PN SOFT Antibody Comment: Performed by [email or web address], [address] [place] [address] [email or web address], Papito Palomares MD - Lab . Director Specimen Anatomical Collection Method Collection Time Receive d Time (Source) Location / / Volume Laterality 11/16/2017 3:17 PM 8 8:43 CDT PM CDT Narrative PN SOFT - 11/18/2017 8:02 PM CDT Performed at [email or web address] [address] [place] [address] CLIA number [id number] Anirudh Cagle MD LAB_1 Performing Organization Address City/[facility] Phon e Number PN SOFT [address] [place] [address] T3 - Triiodothyronine, Free (FRT3) (11/16/2017 3:17 PM CDT) athologist Signature Triiodothyronin 3.2 1.7 - 3.7 PN SOFT e, Free pg/mL Specimen Anatomical Collection Method Collection Time Receive d Time (Source) Location / / Volume Laterality 11/16/2017 3:17 PM 8 6:30 CDT PM CDT Narrative PN SOFT - 11/16/2017 7:10 PM CDT Performed at [facility], [facility] [place] [address] CLIA number [id number] Anirudh Cagle MD LAB_1 Performing Organization Address City/[facility] Phon e Number PN SOFT [address] [place] [address] Free T4 (11/16/2017 3:17 PM CDT) athologist Signature Thyroxine, Free 1.1 0.7 - 1.5 PN SOFT ng/dL Specimen Anatomical Collection Method Collection Time Receive d Time (Source) Location / / Volume Laterality 11/16/2017 3:17 PM 8 6:30 CDT PM CDT Narrative PN SOFT - 11/16/2017 7:10 PM CDT Performed at [address] [address] CLIA number [id number] Anirudh Cagle MD LAB_1 Performing Organization Address [facility] Phon e Number PN SOFT [address] [place] [address] TSH (11/16/2017 3:17 PM CDT) athologist Signature Thyroid 0.38 0.30 - PN SOFT Stimulating 4.50 Hormone uIU/mL Specimen Anatomical Collection Method Collection Time Receive d Time (Source) Location / / Volume Laterality 11/16/2017 3:17 PM 8 6:30 CDT PM CDT Narrative PN SOFT - 11/16/2017 7:10 PM CDT Performed at [address] [address] CLIA number [id number] Anirudh Cagle MD LAB_1 Performing Organization Address [facility] Phon e Number PN SOFT [address] [place] [address] Vitamin D (In house) (11/16/2017 3:17 PM [...] - 11/16/2017 9:29 PM CDT Performed at [address] [address] CLIA number [id number] Anirudh Cagle MD LAB_1 Performing Organization Address [facility] Phon e Number PN SOFT [address] [place] [address] (ABNORMAL) PTH - Parathyroid Hormone Intact (11/16/2017 3:17 PM CDT) P athologist Signature PTH 159 (H) 10 - 100 PN SOFT pg/mL Specimen Anatomical Collection Method Collection Time Receive d Time (Source) Location / / Volume Laterality 11/16/2017 3:17 PM 8 8:43 CDT PM CDT Narrative PN SOFT - 11/16/2017 9:51 PM CDT Performed at [place] [address] [place] [address] CLIA number [id number] Anirudh Cagle MD LAB_1 Performing Organization Address [facility] Phon e Number PN SOFT [address] [place] [address] Phosphorus (11/16/2017 3:17 PM CDT) athologist Signature Phosphorus Serum 3.2 2.3 - 4.7 PN SOFT mg/dL Specimen Anatomical Collection Method Collection Time Receive d Time (Source) Location / / Volume Laterality 11/16/2017 3:17 PM 8 3:16 CDT PM CDT Narrative PN SOFT - 11/16/2017 4:36 PM CDT Performed at [facility], [address] [place] [address] CLIA number [id number] Anirudh Cagle MD LAB_1 Performing Organization Address City/[facility] Phon e Number PN SOFT [address] [place] [address] (ABNORMAL) CMP - Comprehensive Metabolic Panel (11/16/2017 [...] - 11/16/2017 4:36 PM CDT Performed at [facility], [facility] [address] [place] [address] CLIA number [id number] Anirudh Cagle MD LAB_1 Performing Organization Address City/State/ZIP Code Phon e Number PN SOFT [address] [place] [address] [phone] documented in this encounter Visit Diagnoses Diagnosis Elevated parathyroid hormone (HRC) Unspecified endocrine disorder Subclinical hyperthyroidism (HRC) Thyrotoxicosis without mention of goiter or other cause, without mention of thyrotoxic crisis or storm Hypocalcemia documented in this encounter
--- OUTSIDE RECORDS SUMMARY | 2021-12-19 15:43 | XMS_ITS | Encounter Summary ---
:1950 Author Organization [facility] Address [address] [place] [address] Care Team Providers Name Role Phone Unavailable Primary Care Provider Unavailable Reason for Visit Reason Comments Fax LAB RESULTS Encounter Details Date Type Department Care Team Description 12/02/2017 Telephone [facility] 3800 Dustin Cagle MD Fax; LAB RESULTS Endocrinology [address] [place] [address] [phone] (Wo rk) Social History Tobacco Use Types [...] be faxed to Dr. Idalmis Sloan at [phone]. documented in this encounter Plan of Treatment Not on filedocumented as of this encounter Visit Diagnoses Not on filedocumented in this encounter
--- OUTSIDE RECORDS SUMMARY | 2021-12-19 15:43 | XMS_ITS | Encounter Summary ---
:1950 Author Organization [facility] Address [address] [place] [address] Care Team Providers Name Role Phone Unavailable Primary Care Provider Unavailable Reason for Visit Reason Comments ECZEMA Encounter Details Date Type Department Care Team Description 11/30/2012 Procedure Visit [facility], Bravo Chao ECZEMA [address] [place] [address] Social History Tobacco Use Types [...]
--- OUTSIDE RECORDS SUMMARY | 2021-12-19 15:43 | XMS_ITS | Encounter Summary ---
:1950 Author Organization [facility] Address [address] [place] [address] Care Team Providers Name Role Phone Unavailable Primary Care Provider Unavailable Reason for Visit Reason Comments CONSULT Thyroid Encounter Details Date Type Department Care Team Description 11/13/2017 Initial Consult [facility] 380 Anirudh Cagle clinical hyperthyroidism (Primary Dx); Endocrinology MD Jose Elevated parathyroid hormone; [address] [address] [place] Hypocalce [facility]. [facility] [address] [place] [address] [phone] Social History Tobacco Use Types Packs/Day Years [...] 12:00 PM CDT NAME: KRYS MOSHER MR#: [id number] CSN: [id number] AUTHENTICATING CLINICIAN: Anirudh Cagle MD CONFIRM #: [id number] LOC: 432 CLINIC CONSULTATION DATE OF CONSULTATION: [...] for this consultation. CC: [facility] [address] [place] [address] DMT:JARRETT C: CONFIRM #: [id number] documented in this encounter Plan of Treatment [...] - 11/16/2017 9:14 PM CDT Performed at [place] [address] [place] [address] CLIA number [id number] Anirudh Cagle MD LAB_1 Performing Organization Address City/[facility] Phon e Number PN SOFT 6[address] [place] [address] [phone] Tsh Receptor Antibody (11/16/2017 3:17 PM CDT) athologist Signature TSH Receptor <0.90 <=1.75 IU/L PN SOFT Antibody Comment: Performed by [facility], [address] [place] [address] [email or web address], Papito Palomares MD - Lab . Director Specimen Anatomical Collection Method Collection Time Receive d Time (Source) Location / / Volume Laterality 11/16/2017 3:17 PM 8 8:43 CDT PM CDT Narrative PN SOFT - 11/18/2017 8:02 PM CDT Performed at [facility] [address] [place] [address] CLIA number [id number] Anirudh Cagle MD LAB_1 Performing Organization Address [facility] Phon e Number PN SOFT [address] [place] [address] T3 - Triiodothyronine, Free (FRT3) (11/16/2017 3:17 PM CDT) athologist Signature Triiodothyronin 3.2 1.7 - 3.7 PN SOFT e, Free pg/mL Specimen Anatomical Collection Method Collection Time Receive d Time (Source) Location / / Volume Laterality 11/16/2017 3:17 PM 8 6:30 CDT PM CDT Narrative PN SOFT - 11/16/2017 7:10 PM CDT Performed at [place] [address] [place] [address] CLIA number [id number] Anirudh Cagle MD LAB_1 Performing Organization Address [facility] Phon e Number PN SOFT [address] [place] [address] Free T4 (11/16/2017 3:17 PM CDT) athologist Signature Thyroxine, Free 1.1 0.7 - 1.5 PN SOFT ng/dL Specimen Anatomical Collection Method Collection Time Receive d Time (Source) Location / / Volume Laterality 11/16/2017 3:17 PM 8 6:30 CDT PM CDT Narrative PN SOFT - 11/16/2017 7:10 PM CDT Performed at [place] [address] [place] [address] CLIA number [id number] Anirudh Cagle MD LAB_1 Performing Organization Address [facility] Phon e Number PN SOFT [address] [place] [address] TSH (11/16/2017 3:17 PM CDT) athologist Signature Thyroid 0.38 0.30 - PN SOFT Stimulating 4.50 Hormone uIU/mL Specimen Anatomical Collection Method Collection Time Receive d Time (Source) Location / / Volume Laterality 11/16/2017 3:17 PM 8 6:30 CDT PM CDT Narrative PN SOFT - 11/16/2017 7:10 PM CDT Performed at [place] [address] [place] [address] CLIA number [id number] Anirudh Cagle MD LAB_1 Performing Organization Address City/[facility] Phon e Number PN SOFT [address] [facility] [address] Vitamin D (In house) (11/16/2017 3:17 PM [...] 11/16/2017 9:29 PM CDT Performed at [address] [address] CLIA number [id number] Anirudh Cagle MD LAB_1 Performing Organization Address [facility] Phon e Number PN SOFT [address] [place] [address] (ABNORMAL) PTH - Parathyroid Hormone Intact (11/16/2017 3:17 PM CDT) athologist [facility] PTH 159 (H) 10 - 100 PN SOFT pg/mL Specimen Anatomical Collection Method Collection Time Receive d Time (Source) Location / / Volume Laterality 11/16/2017 3:17 PM 8 8:43 CDT PM CDT Narrative PN SOFT - 11/16/2017 9:51 PM CDT Performed at [place] [address] [place] [address] CLIA number [id number] Anirudh Cagle MD LAB_1 Performing Organization Address [facility] Phon e Number PN SOFT [address] [place] [address] Phosphorus (11/16/2017 3:17 PM CDT) athologist Signature Phosphorus Serum 3.2 2.3 - 4.7 PN SOFT mg/dL Specimen Anatomical Collection Method Collection Time Receive d Time (Source) Location / / Volume Laterality 11/16/2017 3:17 PM 8 3:16 CDT PM CDT Narrative PN SOFT - 11/16/2017 4:36 PM CDT Performed at [facility], [address] [facility], [place] [address] CLIA number [id number] Anirudh Cagle MD LAB_1 Performing Organization Address City/State/ZIP Code Phon e Number PN SOFT [address] [place] [address] [phone] (ABNORMAL) CMP - Comprehensive Metabolic Panel (11/16/2017 3:17 PM CDT) [facility] Method Time Signature Aspartate 48 (H) 10 [...] - 11/16/2017 4:36 PM CDT Performed at [facility], [address] [facility], [place] [address] CLIA number [id number] Anirudh Cagle MD LAB_1 Performing Organization Address City/State/ZIP Code Phon e Number PN SOFT [address] [place] [address] documented in this encounter Visit Diagnoses Diagnosis [...]
--- OUTSIDE RECORDS SUMMARY | 2021-12-19 15:43 | XMS_ITS | Encounter Summary ---
:1950 Author Organization [facility] Address [address] [place] [address] Care Team Providers Name Role Phone Unavailable Primary Care Provider Unavailable Reason for Visit Reason Comments DERMATITIS Encounter Details Date Type Department Care Team Description 11/11/2012 Procedure Visit [facility] Nurse, Bravo Chao DERMATITIS [address] [place] [address] Social History Tobacco Use Types [...]
--- OUTSIDE RECORDS SUMMARY | 2021-12-19 15:43 | XMS_ITS | Encounter Summary ---
:1950 Author Organization [facility] Address [address] [place] [address] Care Team Providers Name Role Phone Unavailable Primary Care Provider Unavailable Reason for Visit Reason Comments Appt. Needed Referral rec via fax for Hyp erthyroidism from Dr. Idalmis Sloan at [facility] Encounter Details Date Type Department Care Team Description 2017 Notes/Orders [facility] 3800 Nurse, P3800 End Endocrinology [address] [place] [address] [phone] Social History Tobacco Use Types Packs/Day Years [...]
--- OUTSIDE RECORDS SUMMARY | 2021-12-19 15:43 | XMS_ITS | Encounter Summary ---
:1950 Author Organization [facility] Address [address] [place] [address] Care Team Providers Name Role Phone Unavailable Primary Care Provider Unavailable Reason for Visit Reason Comments Ulcer, Foot 5th toes b/l ft sores x 1 we ek Encounter Details Date Type Department Care Team Description 12/22/2018 Initial Consult [facility] , Charcot's joint of right foot (Primary Dx); MedSurg DPM Blister of fifth toe of right foot, init ial encounter; [address] [place] [address] [place], [place] [phone] Social History Tobacco Use Types Packs/Day Years [...] review indicates that she was admitted at [facility] on November 04, 2018 and [...] and graft Social History: 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 These are an accommodative insert. ASSESSMENT: ICD-10-CM [...] procedure. In review of the notes from [facility] it does indicate Charcot reconstruction [...] voice recognition software and may contain some barrel liner errors) documented in this encounter Nursing Notes [...]
--- OUTSIDE RECORDS SUMMARY | 2021-12-19 15:43 | XMS_ITS | Encounter Summary ---
:1950 Author Organization [facility] Address [address] [place] [address] Care Team Providers Name Role Phone Unavailable Primary Care Provider Unavailable Reason for Visit Reason Comments Appt. Scheduled Encounter Details Date Type Department Care Team Description 12/14/2012 Telephone [facility] 3800 Megan Son MD Appt. Scheduled Dermatology [address] [place] [address] [place] [address] [phone] Social History Tobacco Use Types Packs/Day Years [...] her husbands schedule first. She will call [phone] to schedule this appt. Megan Son MD [...]
--- OUTSIDE RECORDS SUMMARY | 2021-12-19 15:43 | XMS_ITS | Encounter Summary ---
:1950 Author Organization [facility] Address [address] [place] [address] Care Team Providers Name Role Phone Unavailable Primary Care Provider Unavailable Reason for Visit Reason Comments UPDATE Encounter Details Date Type Department Care Team Description 12/07/2017 Telephone [facility] 3800 Dustin Cagle MD UPDATE Endocrinology [address] [place] [address] [phone] (Wo rk) Social History Tobacco Use Types [...]
--- OUTSIDE RECORDS SUMMARY | 2021-12-19 15:43 | XMS_ITS | Clinical Summary ---
:1950 Author Organization [facility] [place] [address] Care Team Providers Name Role Phone Idalmis [...] MEDICARE PART A - MEDICARE PART A [id number] 2008-Prese ATTN: CLAIMS HB USE ONLY HB ONLY nt [address] [place] [address] [facility] MR [id number] 2020-Presen [address] [address] [place] [address] Advance Directives Latest Code Status on File Code Status Date Activated Date Inactivated Comments Full Code 07/16/2012 5:52 PM 07/17/2012 6:32 PM Full Code 07/16/2012 10:11 AM 07/16/2012 5:52 PM Care Teams Director Workers Compensation Relationship Specialty Start Date End Date Idalmis Sloan MD PCP - General Family Practice 07/15/12
--- OUTSIDE RECORDS SUMMARY | 2021-12-19 15:44 | XMS_ITS | Encounter Summary ---
:1950 Author Organization [facility] Address [address] [place] [address] Care Team Providers Name Role Phone Unavailable Primary Care Provider Unavailable Encounter Details Date Type Department Care Team Description 10/12/2012 Notes/Orders [facility] 3800 Megan Son MD Dermatology [address] [place] [address] [place], [place] [address] [phone] Social History Tobacco Use Types Packs/Day Years Used Date Smoking Tobacco: Never Assessed Sex Assigned at Date Recorded Not on file documented as of this encounter Plan of Treatment Not on filedocumented as of this encounter Visit Diagnoses Not on filedocumented in this encounter
--- OUTSIDE RECORDS SUMMARY | 2021-12-19 15:44 | XMS_ITS | Encounter Summary ---
:1950 Author Organization [facility] Address [address] [place] [address] Care Team Providers Name Role Phone Unavailable Primary Care Provider Unavailable Encounter Details Date Type Department Care Team Description 09/22/2012 Lab Visit [facility] 3850 L aboratory Rash/skin eruption [address] [place], [place] 254076 Social History Tobacco Use Types Packs/Day Years [...] am out of the office next week. [employer]RE[employer] OWNER Miscellaneous - 04/11/2016 5:07 AM CSTNotes Recorded [...] am out of the office next week. [employer] OWNER Miscellcarol - 04/11/2016 5:07 AM CSTNotes Recorded [...] am out of the office next week. [employer] OWNER Miscellaneous - 04/11/2016 5:07 AM CSTNotes Recorded [...] am out of the office next week. [facility] - 04/11/2016 5:07 AM CSTNotes Recorded by [...] am out of the office next week. [employer]RETT[employer] OWNER Miscellcarol - 04/11/2016 5:07 AM CSTNotes Recorded [...] am out of the office next week. [employer] OWNER Miscellaneous - 04/11/2016 5:07 AM CSTNotes Recorded [...] am out of the office next week. DRETTE OWNER documented in this encounter Plan of Treatment [...] Results (ABNORMAL) Differential (09/22/2012 10:50 AM CDT) [facility] Method Time Signature Absolute 3.6 [...] - 09/22/2012 11:00 AM CDT Performed at [facility], [address] [place] [address] Transcriptions 04/11/2016 5:07 AM CSTNotes Recorded by [...] Megan Mcqueen MD LAB_1 Performing Organization Address City/[facility] Code Phon e Number HP CONVERSION [...] Megan Mcqueen MD LAB_1 Performing Organization Address City/[facility] Code Phon e Number HP CONVERSION [...] - 09/22/2012 11:23 AM CDT Performed at [facility], [address] [place] [address] Transcriptions 04/11/2016 5:07 AM CSTNotes Recorded by [...] Panel(Hepatic Function Panel) (09/22/2012 10:50 AM CDT) [facility] Method Time Signature Alk Phos 94 [...] - 09/22/2012 11:23 AM CDT Performed at [facility], [address] [place] [address] Transcriptions 04/11/2016 5:07 AM CSTNotes Recorded by [...] - 09/22/2012 11:00 AM CDT Performed at [facility], [address] [place] [address] Transcriptions 04/11/2016 5:07 AM CSTNotes Recorded by [...]
--- OUTSIDE RECORDS SUMMARY | 2021-12-19 15:44 | XMS_ITS | Encounter Summary ---
:1950 Author Organization [facility] Address [address] [place] [address] Care Team Providers Name Role Phone Unavailable Primary Care Provider Unavailable Reason for Visit Reason Comments RESULTS, TEST Encounter Details Date Type Department Care Team Description 09/29/2012 Telephone [facility] Carlos Jones MD RESULTS, TEST [address] [facility] [address] [place] [address] [place] [address] (Wo rk) Social History Tobacco [...] absence (rc 8-5) She may be reached @[phone]. Thank you. documented in this encounter Plan of Treatment Not on filedocumented as of this encounter Visit Diagnoses Not on filedocumented in this encounter
--- OUTSIDE RECORDS SUMMARY | 2021-12-19 15:44 | XMS_ITS | Encounter Summary ---
:1950 Author Organization [facility] Address [address] [place] [address] Care Team Providers Name Role Phone Unavailable Primary Care Provider Unavailable Reason for Referral Specialty Diagnoses / Procedures Referred By Contact Refer red To Contact Masood Wright, [facility] [address] [place] [address] Referral ID Status Reason Start Date Expiration Date Visits Requ ested Visits Authorized Reason for Visit Reason Comments Rash Encounter Details Date Type Department Care Team Description 09/22/2012 Initial Consult [facility] 3800 Megan Son MD Rash/skin eruption (Primary Dx); Dermatology [address] Rash and other nonspecific s kin eruption [address] [place] [address] [phone] Social History Tobacco Use Types Packs/Day Years [...] whole body going on for4-5 weeks. Seen [facility] twice for this condition. Red bumps with itching. Tried Bactroban cream, OTCallergy medication, hydrocortisone, hydroxizine. The Bactroban seemed to help little but rash continues to spread. Was in patient hospital for back surgery and rash has been present since and does not believe she has had any new medications prior to the rash. Had biopsy at [facility] which she thought the results [...] 7 days. Take 30 minutes before first swgo-gonpb-cglguddumr. Avoid lying down for 30 minutes. ??? [...] drawnalso discussed getting labs and slides from [facility] vs doing another biopsy today. Patientelected to have biopsy done today. release of information sent to [facility] today. After disc ussion, a punch biopsy [...] 11:43 AMCalled, left message.------Notes Recorded by Cherelle Pots RN on 10/04/2012 at 5:00 PMreturning your [...] absence (rc 8-5) She may be reached @[phone]. Thank you. 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 FINAL DERMATOPATHOLOGY REPO RT HP CONVERSION Pathology #: [id number] ? Date Obtained: 09/22/2012 ?Date Received: 09/22/2012 [...] absence (rc 8-5) She may be reached @[phone]. Thank you. Megan Son MD LAB_1 Performing Organization Address City/State/ZIP Code Phon e Number HP CONVERSION documented in this encounter Visit Diagnoses Diagnosis Rash/skin eruption - Primary Rash and other nonspecific skin eruption Rash and other nonspecific skin eruption documented in this encounter
--- OUTSIDE RECORDS SUMMARY | 2021-12-19 15:44 | XMS_ITS | Encounter Summary ---
:1950 Author Organization [facility] Address [address] [place] [address] Care Team Providers Name Role Phone Unavailable Primary Care Provider Unavailable Encounter Details Date Type Department Care Team Description 09/28/2012 Notes/Orders [facility] 3800 Megan Son MD Rash and other Dermatology [address] nonspecific skin [address] eruption (Primary Dx) [place] [address]756 [phone] Social History Tobacco Use Types Packs/Day Years Used Date Smoking Tobacco: Never Assessed Sex Assigned at Date Recorded Not on file documented as of this encounter Plan of Treatment Not on filedocumented as of this encounter Visit Diagnoses Diagnosis Rash and other nonspecific skin eruption - Primary documented in this encounter
--- OUTSIDE RECORDS SUMMARY | 2021-12-19 15:44 | XMS_ITS | Encounter Summary ---
:1950 Author Organization [facility] Address [address] [facility] [place] [address] Care Team Providers Name Role Phone Unavailable Primary Care Provider Unavailable Reason for Visit Reason Comments Rash Encounter Details Date Type Department Care Team Description 09/14/2012 Office Visit [place] [facility] Wright[facility] Medicine Cheri Qureshi (Primary Dx) [address] [place] [address] [place], [place] [phone] (Wo rk) Social History Tobacco Use Types [...] times recently including a visit to the bedspread folder and was given topical steroid creams without [...] 7 days. Take 30 minutes before first ghxb-ghmwx-gslphcdcqr. Avoid lying down for 30 minutes. ??? [...]
--- OUTSIDE RECORDS SUMMARY | 2021-12-19 15:44 | XMS_ITS | Encounter Summary ---
:1950 Author Organization [facility] Address [address] [place] [address] Care Team Providers Name Role Phone Unavailable Primary Care Provider Unavailable Reason for Visit Reason Comments Follow-up Encounter Details Date Type Department Care Team Description 10/25/2012 Office Visit [facility] 3800 Megan Son MD Unspecified pruritic Dermatology [address] disorder (Primary Dx) [address] [place] [address] [phone] Social History Tobacco Use Types Packs/Day Years [...] Has had 2 biopsies ( one at [facility], one elsewhere) , both consistent with [...] 7 days. Take 30 minutes before first vicf-pzcva-fndwvbbcod. Avoid lying down for 30 minutes. ??? [...] lunch. -Discussed UVB therapy, available now in [place] twice a week. Will start this. Warned [...]
--- OUTSIDE RECORDS SUMMARY | 2021-12-19 15:44 | XMS_ITS | Encounter Summary ---
:1950 Author Organization [facility] Address [address] [place] [address] Care Team Providers Name Role Phone Unavailable Primary Care Provider Unavailable Reason for Visit Reason Comments Rash Encounter Details Date Type Department Care Team Description 09/20/2012 Telephone [place] [facility] Whitten Rash [address] [facility] [place], [place] [address] [address] [phone] [place], [place] [address] (Wo rk) Social History Tobacco Use Types Packs/Day Years Used Date Smoking Tobacco: Never Assessed Sex Assigned at Date Recorded Not on file documented as of this encounter Nursing Notes Denise Mon - 09/21/2012 9:20 AM CDT LM to call [phone] to schedule an appointment. Denise Mon 9:18 [...]
--- OUTSIDE RECORDS SUMMARY | 2021-12-19 15:44 | XMS_ITS | Encounter Summary ---
:1950 Author Organization [facility] Address [address] [place] [address] Care Team Providers Name Role Phone Unavailable Primary Care Provider Unavailable Reason for Visit Reason Comments Lab Questions Encounter Details Date Type Department Care Team Description 09/24/2012 Telephone [facility] 3800 Megan Son MD Lab Questions Dermatology [address] [facility] [place] [address] [place], [place] [address] [phone] Social History Tobacco Use Types Packs/Day Years [...]
--- OUTSIDE RECORDS SUMMARY | 2021-12-19 15:44 | XMS_ITS | Continuity of Care Document ---
:1950 Author Organization [facility] Center Address [address] [facility] [place] [address] Care Team Providers Name Role Phone [facility] Unavailable Unavailable Procedures Procedure Date INTERLAMINAR CRV OR THRC Advance Directives Directive Yes / No Effective Date File Name No Information Encounters Encounter Practice Location Reason(s) Diagnoses Date Provider Provide rs Description For Visit Copied on Encounter [place] [facility] Information [facility] Provider: Surgery Surgery Surgery [facility] [place]. [place], [address] [facility] [address] [facility] [place], [place], [place], [place], [id number], [place], [address]. [id number], tel:[phone]. [phone] tel:[phone] Family History Family Member Type Diagnosis Age At Onset No Information Payers Payer name Insurance type Covered republican ID Authorization(s ) [facility] MedicareComplete Replacement 16 [id number] Social History Type Description Quantity Date Captured [...]
--- OUTSIDE RECORDS SUMMARY | 2021-12-19 15:45 | XMS_ITS | Encounter Summary ---
:1950 Author Organization [place] Address [address] [facility] [place] [address] Care Team Providers Name Role Phone LeviIdalmis stahl Ann Primary Care Provider Madhav Matute MD Unavailable Encounter Details Date Type Department Care Team Description 01/15/2021 Medical Correspondence [facility] Scan, PHYSICAL THERAPY Health Info Mgmt Non-Provider ORDER [facility] PAIN CLINIC [address] [place] [address] Social History Tobacco Use Types Packs/Day Years Used Date Smoking Tobacco: Never Smokeless Tobacco: Never Sex Assigned at Date Recorded Not on file documented as of this encounter Plan of Treatment Not on filedocumented as of this encounter Visit Diagnoses Not on filedocumented in this encounter Care Teams Sex Therapist Relationship Specialty Start Date End Date Idalmis Sloan PCP - General Family Practice 11/04/13 Madhav Matute MD Assigned Neuroscience 12/02/20 [address] MARYANA BEGUM Provider [address] [place] [phone] documented as of this encounter
--- OUTSIDE RECORDS SUMMARY | 2021-12-19 15:45 | XMS_ITS | Encounter Summary ---
:1950 Author Organization [place] Address [address] [place] [address] Care Team Providers Name Role Phone Idalmis Sloan Primary Care Provider Ana Jacobs PA-C Unavailable Reason for Referral Diagnostic Imaging XR (Routine) - Closed Specialty Diagnoses / Procedures Referred By Contact Refer red To Contact Diagnoses Acute bilateral low back pain with left-sided sciatica Lumbar radiculopathy Madhav Matute MD Procedures XR Lumbar Epidural Injection Incl Imaging [address] [place] [address] Referral ID Status Reason Start Date Expiration Date Visits Requ ested Visits Authorized [id number] Closed 11/19/2020 11/19/2021 1 1 Reason for Visit Reason Comments RECHECK Lumbar Encounter Details Date Type Department Care Team Description 11/19/2020 Office Visit [facility] Madhav Melton Acute darrell ateral low back pain with left-sided sciatica (Primary Dx); [facility] Neurosurgery MD [place] Lumbar radiculopathy Clinic [place] [address] MARY[address] NELSON [address] [facility] [address] [place] [phone] Social History Tobacco Use Types Packs/Day Years [...] after this timeframe. o You can call [facility] ([facility]) to schedule your injection at [phone] ??? We will work on obtaining your DEXA scan results for Dr. Matute to review. ??? Dr. Matute would like to see you back in the clinic for follow up one month after your injection. Please call the number below to schedule. Please call us if you have any further questions or concerns. [facility] Neurosurgery Clinic documented in this encounter [...] SARAH/Minnie November 19, 2020 to fax number [phone] Right Fax confirmed at 1615 PM documented [...] unspecified documented in this encounter Care Teams Lard Mixer Relationship Specialty Start Date End Date Idalmis Sloan PCP - General Family Practice 11/04/13 Ana Jacobs PA-C Assigned Neuroscience 11/04/20 12/01/20 [facility] Provider [address] [id number] documented as of this encounter
--- OUTSIDE RECORDS SUMMARY | 2021-12-19 15:45 | XMS_ITS | Encounter Summary ---
:1950 Author Organization [place] Address [facility] [place] [address] Care Team Providers Name Role Phone Idalmis Sloan Primary Care Provider Madhav Matute MD Unavailable Encounter Details Date Type Department Care Team Description 01/10/2021 Orders Only [facility] Neurosurgery Reported, Patient Clinic [address] [place] [address] Social History Tobacco Use Types [...] filedocumented in this encounter Care Teams Manufacturing Inspector Relationship Specialty Start Date End Date Idalmis Sloan PCP - General Family Practice 11/04/13 Madhav Matute MD Assigned Neuroscience 12/02/20 [address] [facility] Provider [address] [place] [address] documented as of this encounter
--- OUTSIDE RECORDS SUMMARY | 2021-12-19 15:45 | XMS_ITS | Encounter Summary ---
:1950 Author Organization [place] Address [address] [facility] [place] [address] Care Team Providers Name Role Phone LeviIdalmis stahl Ann Primary Care Provider Madhav Matute MD Unavailable Encounter Details Date Type Department Care Team Description 05/14/2021 Medical Correspondence [facility] Scan, PHYSICAL THERAPY Health Info Mgmt Non-Provider ORDER [facility] PAIN CLINIC [address] [place] [address] Social History Tobacco Use Types Packs/Day Years Used Date Smoking Tobacco: Never Smokeless Tobacco: Never Sex Assigned at Date Recorded Not on file documented as of this encounter Plan of Treatment Not on filedocumented as of this encounter Visit Diagnoses Not on filedocumented in this encounter Care Teams Auto Mechanic Supervisor Relationship Specialty Start Date End Date Idalmis Sloan PCP - General Family Practice 11/04/13 Madhav Matute MD Assigned Neuroscience 12/02/20 [address] MARY[address] BEGUM Provider [address] [place] [phone] documented as of this encounter
--- OUTSIDE RECORDS SUMMARY | 2021-12-19 15:45 | XMS_ITS | Encounter Summary ---
:1950 Author Organization [place] Address [facility] [place] [address] Care Team Providers Name Role Phone Idalmis [...] on filedocumented in this encounter Care Teams Hse Advisor Relationship Specialty Start Date End Date Idalmis Sloan PCP - General Family Practice 11/04/13 Ana Jacobs PA-C Assigned Neuroscience 11/04/20 12/01/20 [facility] Provider [address] [address] documented as of this encounter
--- OUTSIDE RECORDS SUMMARY | 2021-12-19 15:45 | XMS_ITS | Encounter Summary ---
:1950 Author Organization [place] Address [address] [place] [address] Care Team Providers Name Role Phone Idalmis [...] Observation Dept [address] [place], [place] [address] Phone: Referral ID Status Reason Start Date Expiration Date Visits Requ ested Visits Authorized [id number] 1 1 Encounter Details Date Type Department Care Team Description 12/16/2020 - [facility] Caleb Dawn PA-C [facility] [address] [place], [place] [address] Constipation with Fecal impaction; 12/18/2020 [facility] Observation Amando Ross MD [facility] [address] [place] [address] Stercoral colitis; Dept Lisandro Crawford MD [address] [place], [place] [id number] Coronary artery calcification; [address] Generalized [place] [address] Social History Tobacco Use Types [...] Brar PA-C - 12/18/2020 10:20 AM CDT [facility] Hospitalist Discharge Summary Date [...] minutes discharging this patient. Uma Brar PA-C [facility] OBSERVATION DEPT [address] [facility] [address] Physical Exam Vital Signs: Temp: 97.6 ??F [...] EXAM: CT ABDOMEN PELVIS W CONTRAST LOCATION: [facility] DATE/TIME: 12/16/2020 11:23 PM INDICATION: [...] SW consult): Home w/ Facility name: personal care worker: - Cheikh Activity level at baseline: Ind [...] Crawford MD - 12/17/2020 2:17 AM CDT [facility] History and Physical - Hospitalist Service [...] Code Status: Full Code Lisandro Crawford MD [facility] Securely message with the Tel[employer] (learn more here) Text page via [employer] Paging/Directory Chief Complaint Diarrhea History is obtained [...] EXAM: CT ABDOMEN PELVIS W CONTRAST LOCATION: [facility] DATE/TIME: 12/16/2020 11:23 PM INDICATION: [...] opioid use. Rectal disimpaction unsuccessful. Success with [place] lady enema and Relistor. Now with large [...] Mejia RN - 12/17/2020 1:14 AM CDT [facility] ED Nurse Handoff Report Krys Mosher [...] 1. Lift room needed: No. Bariatric: No Supervisor Felting Needed: No Isolation: No. Infection: Not Applicable. 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 Patient is alert and oriented. Up SBA w/walker. On a regular diet. 8/10 chronic back and left hip pain. On scheduled methadone and prn [place]. PIV SL. Continuing supportive cares. Likely home [...] for discharge by consultants (if involved): N/A Packing House Laborer Nurse Safe discharge environment identified: Yes, home [...] ice pack. On scheduled methadone with prn [place] for chronic pain. PIV SL. Ambulated hallways [...] for discharge by consultants (if involved): N/A Packing House Laborer Nurse Safe discharge environment identified: Yes, home w/ Barriers to discharge: Yes Entered by: Elfego Randall 12/17/2020 11:27 PM Vitals are Temp: 98.4 ??F (36.9 ??C) Temp src: Oral BP: 110/76 Pulse: 84 Resp: 16 SpO2: 96 %. Patient is Alert and Oriented x4. Up SBA w/walker. On a regular diet. Reports 9/10 rectal discomfort. Ice applied. On scheduled methadone. Prn [place] also given. PIV SL. Up to bathroom [...] 7. Provider specific discharge goals met: yes Packing House Laborer Nurse Safe discharge environment identified: Yes Barriers [...] 7. Provider specific discharge goals met: Yes Packing House Laborer Nurse Safe discharge environment identified: Yes Barriers to discharge: Yes, does not feel able to get up and use the toilette so many times Entered by: Reggie Langford 12/17/2020 12:58 PM Please review provider order for any additional goals. Nurse to notify provider when observation goals have been met and patient is ready for discharge. Pharmacy-Admission Medication History - Lazara Fontenot, [facility] - 12/17/2020 10:24 AM CDT Admission medication history interview status for this patient is complete. See [facility] admission navigator for allergy information, prior to admission medications and immunization status. Medication history interview done, indicate source(s): Patient Medication history resources (including written lists, pill bottles, clinic record): Sure Scripts fill record Pharmacy: [facility] Changes made to FERTILIZER APPLICATOR medication list: Added: latanoprost, Patanol eye drops, [...] on Movantik. Patient has Medicare D through [facility]. Movantik: Not covered. Relistor: Not covered. Amitiza: $47/mo. Dea Torres, Helper Coordinator/Liaison, Discharge Pharmacy [phone] Plan of Care - Reggie Langford RN - 12/17/2020 9:02 AM CDT PRIMARY DIAGNOSIS: dehydration/weakness OUTPATIENT/OBSERVATION GOALS TO BE MET BEFORE DISCHARGE: 1. Stable vital signs Yes 2. Tolerating diet:Yes 3. Pain controlled with oral pain medications: Yes 4. Positive bowel sounds: Yes 5. Voiding without difficulty: Yes 6. Able to ambulate: Yes 7. Provider specific discharge goals met: Yes Packing House Laborer Nurse Safe discharge environment identified: Yes Barriers [...] Return to near baseline physical activity: No Packing House Laborer Nurse Safe discharge environment identified: Yes Barriers [...] diet. C/o 8/10 left shoulder pain, PRN [place] administered. NS running at 100mL/hr. C/o SOB [...] Code Phon e Number [place] [address] Care Lab [address] Lab (1st floor, no room number) [...] City/State/ZIP Code [place] [phone] Care Lab [address] Lab (1st floor, no room number) [...] Address City/State/ZIP Code [place] [address] Care Lab [address] Lab (1st floor, no room number) [...] exposure or clinical presentation sugges ts COVID-19. ??[facility] are certified under the Clinical Laborat ory Improvement Amendments of 1988 (CLIA-88) as qualified to perform moderate and/or high complexity laboratory testing. Caleb Dawn PA-C LAB - MICRO GENERAL ORDERAB LES Performing Organization Address City/State/[place] [address] Care [facility] [address] [facility] (1st [facility], no room number) [...] EXAM: CT ABDOMEN PELVIS W CONTRAST LOCATION: [facility] DATE/TIME: 12/16/2020 11:23 PM INDICATION: [...] EXAM: CT ABDOMEN PELVIS W CONTRAST LOCATION: [facility] DATE/TIME: 12/16/2020 11:23 PM INDICATION: [...] platelets and differential (12/16/2020 9:38 PM CDT) [facility] Method Time Signature WBC Count 11.1 [...] LAB - BLOOD ORDERABLES Performing Organization Address City/[facility]/[place] [phone] Care Lab [address] Lab (1st floor, no room number) [...] LAB - BLOOD ORDERABLES Performing Organization Address City/[facility]/[place] [address] Care Lab [address] Lab (1st floor, no room number) (ABNORMAL) Comprehensive metabolic panel (12/16/2020 9:38 PM CDT) [facility] Method Time Signature Sodium 134 133 [...] City/State/ZIP Code Ph[place] [address] Care Lab [address] Lab [...] documented as of this encounter Care Teams Barrel Inspector Relationship Specialty Start Date End Date Idalmis Sloan PCP - General Family Practice 11/04/13 Madhav Matute MD Assigned Neuroscience 12/02/[address] BEGUM Provider [address] [place] [address] documented as of this encounter
--- OUTSIDE RECORDS SUMMARY | 2021-12-19 15:45 | XMS_ITS | Continuity of Care Document ---
:1950 Author Organization [facility] Address [address] [place] [address] Phone Care Team Providers Name Role Phone [...] Description For Visit Copied on Encounter OFFICE/OUTPAT [facility] low back Drug induced Pedro Specialist IENT VISIT, [facility] pain constipationRhe [facility]. 7 235 : Rohith EST Pain [place] (chief umatoid [address] Hien Henderson, Clinic, complaint) [place], [place] .Referri [address] in left DOUG, tracey Henderson, shoulderPain in [id number], Provi fredy: [place], right hipPain [place]. Faisal CAMACHO, in left tel:[phone] Will J, [phone] [place] [address] [address] , [place] right ankle and [place], tel:+1-95 joints of right Minnea chiqui [id number] footOther s, [place], spondylosis, [address] cervical . regionOther tel:[phone] spondylosis, 1075764 lumbar regionRadiculop athy, cervical regionPostlamin ectomy syndrome, not elsewhere classifiedLong term (current) use of opiate analgesic OFFICE/OUTPAT [facility] low back Drug induced Oct- Pedro Specialist IENT VISIT, [facility] pain constipationRhe [facility]. 7 235 : Rohith EST Pain [place] (chief umatoid [address] Hien Henderson, [facility], complaint) [place], [place] .Referri [address] in right [place], tracey Henderson, hipPain in left [id number], Provi fredy: [place], shoulderPain in [place]. Faisal [place], left kneePain tel:+[phone] Will J, [phone] in right ankle 36[address] [address] , [place] and joints of [place], tel:+ right footOther Minnea chiqui [id number] spondylosis, [place], [place], cervical [address] regionOther . spondylosis, tel:+ lumbar [phone] regionRadiculop athy, cervical regionPostlamin ectomy syndrome, not elsewhere classifiedLong term (current) use of opiate analgesicEncoun ter for therapeutic drug level monitoring [facility] No Information Sep-0 Pedro Refer [facility]. 7235 Provider : Pain Garita [address] Faisal Henderson, [place], Jaspreet Calderón, [address] [place], [address] [place], [id number], [place], [place]. [place], tel:+[phone] s, [place], [phone] , [place] . tel:+ tel:+ [phone] [facility] lumbago Postlaminectomy Dulen Refe [facility] (chief syndrome, not 0- Lois. Prov ider: Pain Garita complaint) elsewhere 2 [address] [facility], classified [place], Will J, [facility] [address] DOUG Henderson, [place], [id number], [facility] [place]. [place], [place], [id number] tel:[phone] , [place] [address] . tel: tel:+ [phone] OFFICE/OUTPAT [facility] low back Pain in left Pedro Specialist IENT VISIT, [facility] pain kneeDrug 0- [facility] 7235 : R oy EST Pain [place] (chief induced [address] Hien Henderson, Clinic, complaint) constipationRhe [place], [place].Referri [address] umatoid [place], ng [place], arthritisPain [id number], Provide r: Garita, in left [place]. Faisal [place], shoulderPain in tel:+ Arnold l J, [phone] right hipPain 51081 [address] s , [place] in right ankle [place], tel:+ and joints of [place] 20174151 right footOther s, [place], spondylosis, [address] cervical . regionOther tel:+952 spondylosis, 1472684 lumbar regionRadiculop athy, cervical regionPostlamin ectomy syndrome, not elsewhere classifiedLong term (current) use of opiate analgesic OFFICE/OUTPAT [facility] low back Drug induced Pedro Specialist IENT VISIT, [facility] pain constipationRhe 2 [facility]. 7 235 : Rohith EST Pain [place] (chief umatoid [address] [place] Hien, Clinic, complaint) [place] .Referri [address] in left [place], ng [place], shoulderPain in [id number], Provi fredy: [place], right hipPain [place]. Faisal CAMACHO, in left tel:+4 Will J, [phone] [place] [address] [address] , [place] right ankle and [place], tel:+ joints of right Minnea chiqui 05273721 footOther s, [place], spondylosis, [address] cervical . regionOther tel:+952 spondylosis, 6571435 lumbar regionRadiculop athy, cervical regionPostlamin ectomy syndrome, not elsewhere classifiedLong term (current) use of opiate analgesic OFFICE/OUTPAT [facility] low back Drug induced Pedro Specialist IENT VISIT, [facility] pain constipationRhe [facility]. 7 235 : Rohith EST Pain [place] (chief umatoid [address] [place] Hien, Clinic, complaint) [place] .Referri [address] in left [place], ng [place], shoulderPain in 04[address]29[address], Provi fredy: [place], right hipPain [place]. Faisal CAMACHO, in left tel:[phone] [place], [phone] [place] [address] [address] , [place] right ankle and [place], tel:+195 joints of right Minnea chiqui 64109739 footOther s, [place], spondylosis, [address] cervical . regionOther tel: spondylosis, 3523662 lumbar regionRadiculop athy, cervical regionPostlamin ectomy syndrome, not elsewhere classifiedLong term (current) use of opiate analgesic [facility] Radiculopathy, Balbuenaанна Pulido. Referring [facility] Surgery cervical region [address] Provid er: Pain Center 2 Faisal Henderson, [place], Will J, [address] [place], [address] [place], [id number], [place], [place], [place]. [place], tel: s, [place], [phone] , [place] . tel: tel: [phone] OFFICE/OUTPAT [facility] low back Pain in left Pedro Specialist IENT VISIT, [facility] pain kneeRheumatoid [facility]. 72 35 : Rohith EST Pain [place] (chief arthritisPain [address] Hien Henderson , Clinic, complaint) in left [place], [place].Refer ri [address] shoulderPain in [place], tracey Henderson, right hipPain [id number], Provide r: [place], in right ankle [place]. Faisal CAMACHO, and joints of tel: Will J, [phone] right footOther 39024 7[address] [facility] [place] spondylosis, [place], tel: cervical [place] 10356991 regionOther s, [place], spondylosis, [address] lumbar . regionPostlamin tel: 52 ectomy 1253916 syndrome, not elsewhere classifiedLong term (current) use of opiate analgesicRadicu lopathy, cervical regionDrug induced constipation OFFICE/OUTPAT [facility] low back Pain in left Pedro Specialist IENT VISIT, [facility] pain shoulderPain in [facility] 7 235 : Rohith EST Pain [place] (chief right [address] Hien Henderson, Clinic, complaint) hipRheumatoid [place], [place] .Referri [address] arthritisPain DOUG, ng [place], in left [id number], Provider: [place] kneePain in [place]. Faisal [place], right ankle and tel: Arnold l J, [phone] joints of right 98744 [address] , [place] footOther [place], tel: spondylosis, [place] 75140174 cervical s, [place], regionOther [address] spondylosis, . lumbar tel: regionPostlamin 3965445 ectomy syndrome, not elsewhere classifiedLong term (current) use of opiate analgesicEncoun ter for therapeutic drug level monitoring OFFICE/OUTPAT [facility] low back Pain in left Apr- [facility] Specialist IENT VISIT, [facility] pain shoulderPain in [facility] 7 235 : Rohith EST Pain [place] (chief left kneePain 2 [facility] , Clinic, complaint) in right [place], [place].Refe rri [address] hipRheumatoid tracey CAMACHO, arthritisOther [id number], Provid er: Garita, spondylosis, [place]. Faisal DOUG, lumbar tel: Will J, 406468337 regionPostlamin 23202 [address] [facility] [place] ectomy [place], tel: syndrome, not [place] [phone] elsewhere s, [place], classifiedPain [address] in right ankle . and joints of tel: right footLong 9681463 term (current) use of opiate analgesicOther spondylosis, cervical regionEncounter for therapeutic drug level monitoring OFFICE/OUTPAT [facility] low back Pain in left [facility] Specialist IENT VISIT, [facility] pain shoulderPain in [facility]. 7 235 : Rohith EST Pain [place] (chief left kneePain 2 [facility] , Clinic, complaint) in right [place].Refe rri [address] hipCervicalgiaR DOUG, tracey Henderson, heumatoid 332262725, Provider: Garita, arthritisOther US. Faisal CAMACHO, spondylosis, tel: Will J , [phone] lumbar 42311 [address] , [place] regionPostlamin [place], tel: ectomy [place] 41600170 syndrome, not [place], [place], elsewhere [address] classifiedPain . in right ankle tel: 2 and joints of 4731563 right footLong term (current) use of opiate analgesic OFFICE/OUTPAT [facility] low back Pain in left [facility] Specialist IENT VISIT, [facility] pain shoulderPain in [facility] 7 235 : Rohith EST Pain [place] (chief left kneePain [address] Hien Henderson , Clinic, complaint) in right [place], [place].Refe rri [address] hipCervicalgiaR [place], ng [place], heumatoid 681645136, Provider: [place], arthritisOther [place]. Faisal CAMACHO, spondylosis, tel: Will J , [phone] lumbar 06470 [address] , [place] regionPostlamin [place], tel: ectomy [place] 10383599 syndrome, not s, [place], elsewhere [address] classifiedPain . in right ankle tel: 2 and joints of 2851615 right footLong term (current) use of opiate analgesic OFFICE/OUTPAT [facility] low back Other [facility] Speci alist IENT VISIT, [facility] pain spondylosis, [facility]. 7235 : Rohith EST Pain [place] (chief lumbar [address] Bean Hendersoneller, Clinic, complaint) regionPostl[place], [place].Referri [address] ectomy [place], ng [place], syndrome, not [id number], Provide r: Garita, elsewhere [place]. Faisal CAMACHO, classifiedPain tel: Will J, [phone] in right ankle 48040 [address] , [place] and joints of [place], tel: right footPain [place] 49372503 in [place], [place], [place] [address] left kneePain . in right tel:2 hipCervicalgiaR 7290621 heumatoid arthritisLong term (current) use of opiate analgesic OFFICE/OUTPAT [facility] low back Other [facility] Speci alist IENT VISIT, [facility] pain spondylosis, [facility]. 7235 : Rohith EST Pain [place] (chief lumbar [address] [place]BeanHien, Clinic, complaint) regionPosamin [place], [place].Referri [address] ectomy [place], ng [place], syndrome, not [id number], Provide r: [place], elsewhere US. Faisal CAMACHO, classifiedPain tel:+4 Will J, [phone] in right ankle 36602 [address] , [place] and joints of [place], tel:+ right footPain [place] 37077951 in [place], [place], [place] [address] left kneePain . in right tel:+2 hipCervicalgiaR 4586365 heumatoid arthritisLong term (current) use of opiate analgesic OFFICE/[facility] low back Other [facility] Speci ali IENT VISIT, [facility] pain spondylosis, [facility] 7235 : Rohith EST Pain [place] (chief lumbar [address] [place], Clinic, complaint) [place], [place].Referri [address] ectomy [place], ng [place], syndrome, not 605776859, Provide r: Garita, elsewhere US. Faisal CAMACHO, classifiedPain tel: Will J, [phone] in right ankle 49002 [address] , [place] and joints of [place], tel:+ right footPain [place] 13373462 in left [place], [place], [place] [address]34 [address] left kneePain . in right tel:+2 hipCervicalgiaL 8729535 meghan term (current) use of opiate analgesicEncoun ter for therapeutic drug level monitoringRheum atoid arthritis [facility] Oct- [facility] Speci alist IENT VISIT, [facility] pain spondylosis, [facility] 7235 : Rohith EST Pain [place] (chief lumbar [address] [place] Hien, Clinic, complaint) [place], [place].Referri [address] ectomy [place], ng [place], syndrome, not [id number], Provide r: [place], elsewhere US. Faisal CAMACHO, classifiedPain tel:4 Will J, [phone] in right ankle 08592 [address] , [place] and joints of [place], tel:+95 right footPain [place] 48598578 in left [place], [place], [place] [address]33 48 left kneePain . in right tel: hipCervicalgiaL 0091852 meghan term (current) use of opiate analgesic OFFICE/OUTPAT [facility] low back Other [facility] ali IENT VISIT, [facility] pain spondylosis, [facility]. 7235 : Rohith EST Pain [place] (chief lumbar [address] [place], Clinic, complaint) [place]Pos[place], [place].Referri [address] ectomy [place], ng [place], syndrome, not [id number], Provide r: Garita, elsewhere US. Faisal CAMACHO, classifiedPain tel: Will J, [phone] in right ankle 31840 [address] , [place] and joints of [place], tel: right footPain [place] 98378765 in [place], [place], [place] [address] 48 left kneePain . in right tel: hipCervicalgiaL 3656933 meghan term (current) use of opiate analgesic OFFICE/OUTPAT [facility], [facility] pain spondylosis, [facility]. 7235 : Rohith EST Pain [place] (chief lumbar [address] [place], [facility], complaint) [place], [place].Referri [address] ectomy [place], ng [place], syndrome, not [id number], Provide r: Garita, elsewhere [place]. Faisal CAMACHO, classifiedPain tel: Will J, 742094968 in right ankle 34485 [address] , [place] and joints of [place], tel: right footPain [place] 07842727 in left [place], [place], [place] [address] 48 left kneePain . in right tel: hipCervicalgiaL 6805259 meghan term (current) use of opiate analgesic [facility] intermediate May- [facility] (current) use [facility] 7235 Pain [place] of opiate [address] [place], Clinic, analgesicEncoun [place], [address] for [place], [place], therapeutic [id number], [place], drug level [place]. [place], monitoring tel: [phone] , [place] tel: [phone] OFFICE/OUTPAT [facility] low back Other May- Pedro Speci ali IENT VISIT, [facility] pain spondylosis, [facility] 7235 : Rohith EST Pain [place] (chief lumbar [address] Bean Hendersoneller, Clinic, complaint) regionPos[place], [place].Referri [address] ectomy [place], ng [place], syndrome, not [id number], Provide r: Garita, elsewhere [place]. Faisal [place], classifiedPain tel: Will J, [phone] in right ankle 41200 [address] , [place] and joints of [place], tel: right footPain [place] 20955534 in left [place], [place], [place] [address]87 48 left kneePain . in right tel: hipCervicalgiaL 9927453 meghan term (current) use of opiate analgesicEncoun ter for therapeutic drug level monitoring OFFICE VISIT, [facility] low back Other [facility] pain spondylosis, [facility]. 7235 : R oy TELEMEDICINE Pain [place] (chief lumbar [address] Bean Hendersoneller, Clinic, complaint) [facility], [address] ectomy [place], [address] [place], syndrome, not [id number], 140, [place], elsewhere [place]. [place], classifiedPain tel: , [place] , 361021638 in right ankle 13291 [address]358. , [place] and joints of tel: tel: right footPain 7913782 Ref 63827182 in left erring shoulderPain in Provider : left kneePain Faisal in right Will J, hipCervicalgiaL [address] s meghan term [place], (current) use [place] of opiate s, [place], analgesicEncoun [address] for . therapeutic tel:+1-952 drug level [id number] monitoring OFFICE VISIT, [facility] low back Other [facility] spondylosis, [facility] 7235 : R oy TELEMEDICINE Pain [place] (chief lumbar [address] [place]BeanHien, Clinic, complaint) [facility]PosT[facility], [address] ectomy [place], [address] [place], syndrome, not [id number], 140, Garita, elsewhere [place]. Lakesha DOUG, classifiedPain tel:284 , [place] , 261016651 in right ankle [address]049 [address]89. , [place] and joints of tel: tel: right footPain 4565916 Ref 85877534 in left erring shoulderPain in Provider : left kneePain Faisal in right Will J, hipCervicalgiaL [address] s meghan term [place], (current) use [place] of [place]iate [place], [place], analgesic [address] . tel:[phone] OFFICE/OUTPAT [facility] low back Other Nov- Pedro Speci alist IENT VISIT, [facility] pain spondylosis, 0- [facility] 7235 : Rohith EST Pain [place] (chief lumbar [address] [place] Hien, Clinic, complaint) [facility], [address] ectomy [place], Rd [address] [place], syndrome, not [id number], 140, [place], elsewhere [place]. Lakesha DOUG, classifiedPain tel:284 , [place] , 672919678 in right ankle 26933 33169. , [place] and joints of tel: tel: right footPain 4159681 Ref 89583830 in left erring shoulderPain in Provider : left kneePain Faisal in right Will J, hipLong term [address] (current) use [place], of opiate [place] analgesicCervic s, [place], [place] [address] . 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 723 5 : Rohith EST Pain [place] (chief of opiate [address] Hien Henderson, Clinic, complaint) analgesicPostla [place], [address] minectomy [place], Rd [address] [place], syndrome, not [id number], 140, Garita, elsewhere [place]. Lakesha CAMACHO, classifiedPain tel:+[address]59 , [place] , [phone] in right ankle 14824 [address]195. , [place] and joints of tel: tel: right footPain 5488298 Ref 73443311 in left erring shoulderOther Provider: spondylosis, Faisal lumbar Will J, regionPain in [address] left kneePain [place], [place], [address] . tel:[phone] OFFICE VISIT, [facility] low back Postlaminectomy Branden- [facility] pain syndrome, not [facility] : Rohith TELEMEDICINE Pain [place] (chief elsewhere [address] Narendra Henderson r, Clinic, complaint) classifiedPain [place], [address] in right ankle [place], Rd [address] [place], and joints of 486[address]2203, 140, Garita, right footPain [place]. Margot mclaughlin [place], in left tel:284 , [place], 535815229 shoulderLong 43495 42450. , [place] term (current) tel: 2 tel: use of opiate [id number] ef [id number] analgesicOther erring spondylosis, Provider: lumbar Faisal regionPain in Will J, left kneePain [address] in right hip [place], [address] . tel:[phone] OFFICE VISIT, [facility] low back Postlaminectomy Apr- [facility], not - [facility] 7[facility] : Rohith TELEMEDICINE Pain (chief elsewhere [address] Narendra Henderson r, Clinic, complaint) classifiedLow [place], [address] back painPain [place], Rd [address] [place], in right ankle [id number], 140, Garita, and joints of [place]. [place], right footLong tel:284 , DOUG , 157033167 term (current) 43498 69675. , [place] use of opiate tel: tel: analgesicPain 3823580B ef 37906515 in left erring shoulder Provider: Faisal Calderón, [address] [place], [address] . tel:[phone] OFFICE/OUTPAT [facility] low back Postlaminectomy Kanga s Specialist IENT VISIT, [facility] pain syndrome, not 6-202 [facility] 723 5 : Rohith EST Pain [place] (chief elsewhere 0 [facility] Hien Henderson, Clinic, complaint) classifiedLow [place] [address] [address] back painLong [place], Rd [address] [place], term (current) 267863802, 140, [place], use of opiate [place]. Lakesha CAMACHO, analgesicPain tel:4 , DOUG, 950201027 in right ankle 04495 24067. , [place] and joints of tel: tel: right foot [phone] [id number] erring Provider: Faisal Calderón, [address] [place], [address] . tel:[phone] OFFICE/OUTPAT [facility] low back Postlaminectomy Kanga s Specialist IENT VISIT, [facility] pain syndrome, not 7-201 [facility] 723 5 : Rohith EST Pain [place] (chief elsewhere 9 [facility] Hien Henderson, Clinic, complaint) classifiedLow [place], [address] back painPain [place], Rd [address] [place], in right 429727307, 140, [place], handLong term [place]. Lakesha CAMACHO, (current) use tel:284 , DOUG, 588065288 of opiate 87071 [address]. , [place] analgesic tel: tel: [phone] erring Provider: Faisal Calderón, [address] [place], [address] . tel:[phone] OFFICE/OUTPAT [facility] low back intermediate Oct-3 Pedro Spe cialist IENT VISIT, [facility] pain (current) use 0-201 [facility] 723 5 : Rohith EST Pain [place] (chief of opiate [address] [place], Hien, Clinic, complaint) analgesicPostla [place], [address] minectomy [place], Rd [address] [place], syndrome, not [id number], 140, [place], elsewhere US. Lakseha CAMACHO, classifiedLow tel:+47130 , [place], 344[address]33[address] back pain 26296 94959. , [place] tel:+ tel:+ [phone] erring Provider: Faisal Calderón, 7235 [facility] [place], [address] . tel:[phone] OFFICE/OUTPAT [facility] low back Postlaminectomy Sep- Fransisco s Specialist IENT VISIT, [facility] pain syndrome, not 0-201 [facility] 723 5 : Rohith EST Pain [place] (chief elsewhere [address] [place], Hien, Clinic, complaint) classifiedLow [place], [address] back painLong [place], Rd [address] [place], term (current) 105934747, 140, Garita, use of opiate [place]. Lakesha CAMACHO, analgesic tel:+[phone] , [place], [phone] [address]. , [place] tel:+ tel:+ [phone] erring Provider: Faisal Calderón, 7[address] [facility] [place], [address] . tel:[phone] OFFICE/OUTPAT [facility] low back Pain in right Jose-0 Pedro Specialist IENT VISIT, [facility] pain handLow back 1-201 [facility] 7235 : Rohith EST Pain [place] (chief painPostlaminec [address] [place], Beanell er, Clinic, complaint) pricilla syndrome, [place], [address] not elsewhere [place], Rd [address] [place], classifiedEncou [id number], 140, [place], nter for [place]. Lakesha CAMACHO, therapeutic tel:284 , DOUG, 296892661 drug level 85673 39915. , [place] monitoringLong tel: 2 tel: term (current) 1560480 Ref 56595154 use of opiate erring analgesic Provider: Faisal Calderón, 7[address] [facility] [place], [address] . tel:[phone] OFFICE/OUTPAT [facility] low back Postlaminectomy Apr-2 Fransisco flores Specialist IENT VISIT, [facility] Pain [facility] pain syndrome, not 9-201 [facility] 723 5 : Rohith EST Pain [place] (chief elsewhere 9 [facility] [place], Clinic, complaint) classifiedLow [place], [address] back painLong [place], Rd [address] [place], term (current) 519148928, 140, [place]ita, use of opiate [place]. Lakesha CAMACHO, analgesicPain tel:4 , DOUG, [phone] in right hand 59988 08150. , [place] tel: tel: [phone] erring Provider: Faisal Calderón, [address] [facility] [place], [address] . tel:[phone] OFFICE/OUTPAT [facility] low back Intervertebral Mar-0 Pedro Specialist IENT VISIT, [facility] Pain [facility] pain disc disorders 4-201 [facility]. 72 35 : Rohith EST Pain [place] (chief with 9 [facility] [place], Clinic, complaint) myelopathy, [place], [address] lumbar [place], Rd [address] [place], regionLow back [id number], 140, [place], painLong term [place]. [place] CAMACHO, (current) use tel:284 , DOUG, 148515598 of opiate 21475 90110. , [place] analgesic tel: tel: [phone] [phone] erring Provider: Faisal Calderón, [address] [facility] [place], [address] . tel:[phone] OFFICE/OUTPAT [facility] low back Postlaminectomy Dec- Fransisco flores Specialist IENT VISIT, [facility] pain syndrome, not [facility] 723 5 : Rohith EST Pain [place] (chief elsewhere 8 [facility], Clinic, complaint) classifiedInter [place], [address] vertebral disc [place], Rd [address] [place], disorders with [id number], 140, [place], myelopathy, [place]. [place], lumbar tel:+[phone] , [place], [phone] regionLow back 72443 10014. , [place] pain tel:+ tel:+ [phone] erring Provider: Faisal Calderón, [address] [place] [facility] [place], [address] . tel:[phone] OFFICE[facility]OUTPAT [facility] low back Postlaminectomy Nov-0 Fransisco flores Specialist IENT VISIT, [facility] pain syndrome, not [facility]. 723 5 : Rohith EST Pain [place] (chief elsewhere 8 [facility], Clinic, complaint) classifiedInter [place], [address]373 [address] vertebral disc [place], Haven Clara [place], disorders with [id number], S Suit e [place], myelopathy, [place]. 306, [place], lumbar tel:[phone] [place], [place], [phone] regionLow back [phone]. , [place] painLong term tel: tel: (current) use [phone] [phone] of opiate erring analgesic Provider: Faisal Calderón, 7235 [facility] [place], [address] . tel:[phone] OFFICE/OUTPAT [facility] low back Postlaminectomy Kasey mclaughlin Specialist IENT VISIT, [facility] pain syndrome, not 8 Chuck. 14 55 : Rohith EST Pain [place] (chief elsewhere [address] [place], Clinic, complaint) classifiedLow [place] [address], 7[address] back pain [place], Haven A ve [place], [place], S [address] [place], [id number], 306, [place], [place]. DOUG [place], [id number] tel:[phone]. , [place] [address] tel: tel: [phone] erring Provider: Faisal Calderón, 7[address] Shiraz [place], [address] . tel:[phone] OFFICE/OUTPAT [facility] low back Low back Jose-0 Pedro Spec ialist IENT VISIT, [facility] pain painPostlaminec 5-201 [facility]. 7 235 : Rohith EST Pain [place] (chief pricilla syndrome, 8 [address] [place], Narendra r, Clinic, complaint) not elsewhere [place], 73 73 [address] classified DOUG, Haven [place], [id number], S [address] [place], [place]. 306, [place], tel:+[phone] DOUG [place], [phone]. , [place] tel: tel: [phone] erring Provider: Faisal Calderón, [address] [place], [address] . tel:[phone] OFFICE/OUTPAT [facility] low back Low back May-0 Pedro Spec ialist IENT VISIT, [facility] pain painPostlaminec 3-201 [facility]. 7 235 : Rohith EST Pain [place] (chief pricilla syndrome, 8 [address] [place], Narendra r, Clinic, complaint) not elsewhere [place], 73 73 [address] classified DOUG, Haven [place], [id number], S [address] [place], [place]. 306, [place], tel:+72078 DOUG Coleman, [phone]. , [place] tel: tel:+ [phone] erring Provider: Faisal Calderón, [address] [place], [address] . tel:[phone] OFFICE/OUTPAT [facility] low back Low back Mar-0 Pedro Spec ialist IENT VISIT, [facility] pain painPostlaminec 6-201 [facility]. 7 235 : Rohith EST Pain [place] (chief pricilla syndrome, 8 [address] [place], Moelle r, Clinic, complaint) not elsewhere [place], 73 73 [address] classified DOUG, Haven Elizabeth [place], [id number], S [address] [place], [place]. 306, [place], tel:+[phone] [place], [place], [id number] [phone]. , [place] tel:+ tel:+ [phone] erring Provider: Faisal Calderón, [address] Shir[address] [place], [address] . tel:[phone] OFFICE/OUTPAT [facility] low back Low back Dennis-0 Pedro Spec ialist IENT VISIT, [facility] pain painPostlaminec [facility]. 7 235 : Rohith EST Pain [place] (chief pricilla syndrome, 8 [address] [place], Moelle r, Clinic, complaint) not elsewhere [place], 73 73 [address] classified DOUG, Haven Dimairis [place], [id number], S [address] [place], [place]. 306, [place], tel:+[phone] DOUG Coleman, [phone] [phone]. , [place] tel:+ tel:+ [phone] erring Provider: Faisal Calderón, [address] Shiraz Henderson JuniorDOUG brown, [address] . tel:[phone] OFFICE/OUTPAT [facility] low back Low back Nov-0 Pedro Spec ialist IENT VISIT, [facility] pain painPostlaminec [facility]. 7 235 : Rohith EST Pain [place] (chief pricilla syndrome, 7 [address] [place], Moelle r, Clinic, complaint) not elsewhere [place], 73 73 [address] classified DOUG, Haven Elizabeth [place], [id number], S [address] [place], [place]. 306, [place], tel:+[phone] [place], [phone]. , [place] tel:+ tel:+ [phone] erring Provider: Faisal Calderón, [address] [place], [address] . tel:[phone] OFFICE/OUTPAT [facility] low back Low back Sep-0 Pedro Spec ialist IENT VISIT, [facility] pain painPostlaminec 8 [facility]. 7 235 : Rohith EST Pain [place] (chief pricilla syndrome, 7 [address] [place], Beanelle r, Clinic, complaint) not elsewhere [place], 73 73 [address] classified DOUG, Haven [place], [id number], S [address] [place], [place]. 306, [place], tel:+35480 DOUG Coleman, [phone]. , [place] tel: tel: [phone] [phone] erring Provider: Faisal Calderón, [address] [place], [address] . tel:[phone] OFFICE/OUTPAT [facility] low back Low back Jose-0 Pedro Spec ialist IENT VISIT, [facility] pain painPostlaminec 7 [facility]. 7 235 : Rohith EST Pain [place] (chief pricilla syndrome, 7 [address] [place], Beanelle r, Clinic, complaint) not elsewhere [place], 73 73 [address] classified ODUG, Haven Elizabeth [place], [id number], S [address] [place], [place]. 306, [place], tel:+[phone] DOUG Coleman, [phone]. , [place] tel: tel: [phone] erring Provider: Faisal Calderón, [address] [place], [address] . tel:[phone] OFFICE/OUTPAT [facility] low back Low back pain May-0 Pedro Specialist IENT VISIT, [facility] pain 9 [facility]. 7235 : Ro y EST Pain [place] (chief 7 [address] Bean Hendersoneller, Clinic, complaint) [place], [address] DOUG, Haven Elizabeth [place], [id number], S Suite [place], [place]. 306, [place], tel:+39802 DOUG Coleman, [id number] [phone]. , [place] tel:+ tel:+ [phone] erring Provider: Faisal Calderón, [address] [place], [address] . tel:[phone] OFFICE/OUTPAT [facility] low back Low back pain Mar-1 Pedro Specialist IENT VISIT, [facility] pain 0-201 [facility]. 7235 : Ro y EST Pain [place] (chief 7 OhBean Joneseller, Clinic, complaint) [place], 7373 [address] [place], Haven [place], [id number], S Suite [place], [place]. 306, [place], tel:+[phone] DOUG Coleman, [phone] 22530 [phone]. , [place] tel:+ tel:+ [phone] erring Provider: Faisal Calderón, 7235 [facility] [place], [address] . tel:[phone] OFFICE/OUTPAT [facility] low back Low back pain Dennis-0 Pedro Specialist IENT VISIT, [facility] pain 3-201 [facility]. 7235 : Ro y EST Pain [place] (chief 7 AkHien Jones, Clinic, complaint) [place], 7373 [address] [place], Haven [place], [id number], S Suite [place], [place]. 306, [place], tel:+09394 DOUG Coleman, [phone]. , [place] tel: tel:+ [phone] erring Provider: Faisal Calderón, 7235 [facility] [place], [address] . tel:[phone] OFFICE/OUTPAT [facility] low back Low back Nov-0 Pedro Spec ialist IENT VISIT, [facility] pain painPostlaminec 4-201 [facility]. 7 235 : Rohith EST Pain [place] (chief pricilla syndrome, 6 [address] [place], Narendra r, Clinic, complaint) not elsewhere [place], 73 73 [address] classified DOUG, Haven [place], [id number], S Suite [place], [place]. 306, [place], tel:+[phone] [place], [place], [phone] [phone]. , [place] tel: tel: [phone] erring Provider: Faisal Calderón, [address] [place], [address] . tel:[phone] OFFICE/OUTPAT [facility] low back Low back Sep-0 Pedro Spec ialist IENT VISIT, [facility] pain painPain in [facility]. 7235 : Rohith EST Pain [place] (chief left shoulder 6 [address] Bean Hendersoneller , Clinic, complaint) [place], 7373 [address] [place], Haven [place], [id number], S [address] [place], [place]. 306, [place], tel:+69054 DOUG Coleman, [phone]. , [place] tel: tel: [phone] erring Provider: Faisal Calderón, [address] [place], [address] . tel:[phone] OFFICE/OUTPAT [facility] low back Low back Jose-0 Pedro Spec ialist IENT VISIT, [facility] pain painPain in [facility]. 7235 : Rohith EST Pain [place] (chief left 6 [address] Bean Hendersoneller, Clinic, complaint) shoulderPain in [place], 7373 7[address] right ankle and [place], Haven [place], joints of right [id number], S Priscilla te [place], foot [place]. 306, [place], tel:[phone] [place], [place], [phone]. , [place] tel: tel: [phone] erring Provider: Faisal Calderón, [address] [place], [address] . tel:[phone] OFFICE/OUTPAT [facility] low back Low back May-0 Pedro Spec ialist IENT VISIT, [facility] pain painPain in [facility]. 7235 : Rohith EST Pain [place] (chief left shoulder 6 [address] [place], Hien , Clinic, complaint) [place], [address] [place], Haven [address] [place], [id number], S Suite [place], [place]. 306, [place], tel:+4 [place], [place], [phone]. , [place] tel:+ tel:+ [phone] erring Provider: Faisal Calderón, [address] [place], [address] . tel:[phone] OFFICE/OUTPAT [facility] low back Low back Pedro Spec ialist IENT VISIT, [facility] pain painPain in [facility]. 7235 : Rohith EST Pain [place] (chief left shoulder 6 [address] [place], Hien , Clinic, complaint) [place], 7373 [address] [place], Haven Elizabeth [place], [id number], S [address] [place], [place]. 306, [place], tel:+ DOUG Coleman, [phone] [phone]. , [place] tel: tel: [phone] erring Provider: Faisal Calderón, [address] [place], [address] . tel:[phone] OFFICE/OUTPAT [facility] low back Low back [facility] Spec ialist IENT VISIT, [facility] pain painPain in [facility]. 7235 : Rohith EST Pain [place] (chief right ankle and 6 [address] [place], Moell er, Clinic, complaint) joints of right [place], 7373 7[address] footPain in [place], Haven [address] [place], left shoulder [id number], S Suite [place], [place]. 306, [place], tel:+4 [place], [place], [phone]. , [place] tel:+ tel:+ [phone] erring Provider: Faisal Calderón, [address] [place], [address] . tel:[phone] OFFICE/OUTPAT [facility] low back Low back Nov-0 [facility] Spec ialist IENT VISIT, [facility] pain painPostlaminec 6 [facility]. 7 235 : Rohith EST Pain [place] (chief pricilla syndrome, 5 [address] [place], Beanelle r, Clinic, complaint) not elsewhere [place], 73 73 [address] [place] classified [place], Haven [address] [place], [id number], S Suite [place], [place]. 306, [place], tel: [place], [place], [phone]. , [place] tel: tel: [phone] OFFICE/OUTPAT [facility] low back Ankylosis of [facility] Specialist IENT VISIT, [facility] pain ankle and foot 4 [facility]. 72 35 : Rohith EST Pain [place] (chief jointDegenerati 5 [address] [place], Beananastacio er, Clinic, complaint) on of lumbar or [place], 7373 7235 [place] lumbosacral [place], Haven [address] [place], intervertebral [id number], S Suit e [place], discEnthesopath [place]. 306, [place], y of hip tel: DOUG Coleman, [phone] regionIntervert [phone]. , [place] ebral disc tel: tel: disorder with [phone] myelopathy, lumbar regionLumbagoPa in in joint involving ankle and footPain in joint involving lower legPostlaminect nikita syndrome of lumbar regionPain in joint involving shoulder region OFFICE/OUTPAT [facility] low back Ankylosis of [facility] Specialist IENT VISIT, [facility] pain ankle and foot 6-201 [facility]. 72 35 : Rohith EST Pain [place] (chief jointDegenerati 5 [address] [place] Beananastacio er, Clinic, complaint) on of lumbar or [place], 7373 7[address] [place] lumbosacral [place], Haven [address] [place], intervertebral [id number], S Suit e [place], discEnthesopath [place]. 306, [place], y of hip tel: DOUG Coleman, [phone] regionIntervert [phone]. , [place] ebral disc tel: tel: disorder with [phone] myelopathy, lumbar regionLumbagoPa in in joint involving ankle and footPain in joint involving lower legPostlaminect nikita syndrome of lumbar region OFFICE/OUTPAT [facility] low back Acquired Pedro Spec ialist IENT VISIT, [facility] pain musculoskeletal 3-201 [facility]. 7 235 : Rohith EST Pain [place] (chief deformity of 5 [address] Bean Hendersoneller, Clinic, complaint) unspecified [place], 7373 7235 [facility] siteAnkylosis [place], Haven A ve [place], of ankle and [id number], S Suite [place], foot [place]. 306, [place], jointDegenerati tel: [place], [place], [phone] on of lumbar or [phone]. , [place] lumbosacral tel: tel: intervertebral [phone] discEnthesopath y of hip regionIntervert ebral disc disorder with myelopathy, lumbar regionLumbagoPa in in joint involving ankle and footPain in joint involving lower legPostlaminect nikita syndrome of lumbar region OFFICE/OUTPAT [facility] low back Ankylosis of Pedro Specialist IENT VISIT, [facility] pain ankle and foot 8 [facility]. 72 35 : Rohith EST Pain [place] (chief jointDegenerati 5 [facility] Bean Hendersonell er, Clinic, complaint) on of lumbar or [place], 7373 7235 [address] lumbosacral [place], Haven [place], intervertebral [id number], S Suit e [place], discEnthesopath [place]. 306, [place], y of hip tel: [place], [place], [phone] regionIntervert [phone]. , [place] ebral disc tel: tel: disorder with [phone] myelopathy, lumbar regionLumbagoPa in in joint involving ankle and footPain in joint involving lower legPostlaminect nikita syndrome of lumbar region OFFICE/OUTPAT [facility] low back Degeneration of Fransisco s Specialist IENT VISIT, [facility] pain lumbar or 6-201 [facility]. 7235 : Rohith EST Pain [place] (chief lumbosacral 5 [address] Hien [place], Clinic, complaint) intervertebral [place], 7 373 7235 [place] discEnthesopath [place], Haven [place], y of hip [id number], S Suite [place], regionIntervert [place]. 306, [place], ebral disc tel: [place], M N, [phone] disorder with [phone]. , [place] myelopathy, tel: tel: lumbar [phone] regionLumbagoPa in in joint involving ankle and footPain in joint involving lower legPostlaminect nikita syndrome of lumbar regionAnkylosis of ankle and foot joint OFFICE/OUTPAT [facility] Back Pain Ankylosis of Pedro Specialist IENT VISIT, [facility] (chief ankle and foot 0-201 [facility]. 72 35 : Rohith EST Pain [place] complaint) jointDegenerati 4 [facility] Bean Henderson, Clinic, on of lumbar or [place], 737 3 7235 [address] lumbosacral [place], Haven [place], intervertebral [id number], S Suit e [place], discEnthesopath [place]. 306, [place], y of hip tel: [place], [place], [phone] regionIntervert [phone]. , [place] ebral disc tel: tel: disorder with [phone] myelopathy, lumbar regionLumbagoPo stlaminectomy syndrome of lumbar region OFFICE/OUTPAT [facility] back pain Postlaminectomy Jayden jj Specialist IENT VISIT, [facility] (chief syndrome of 7201 [facility]. 7235 : Rohith EST Pain [place] complaint) lumbar 4 [facility] Hien [place], Clinic, regionPain in [place], 7373 7[address] joint involving [place], Haven Dimae [place], ankle and [id number], [address] [place], footLumbago [place]. 306, [place], tel: [place], [place], [phone]. , [place] tel: tel: [phone] OFFICE/OUTPAT [facility] low back Postlaminectomy Sep- Monico Specialist IENT VISIT, [facility] pain syndrome of 9-201 Ayana. : Rohith EST Pain [place] (chief lumbar 4 7235 [address] [place], Clinic, complaint) regionPain in [place], 7373 7235 [address] joint involving [place], jatin Clara [place], ankle and foot [place], S Suite [place], [id number], 306, [place], [place]. [place], [place], [id number] tel:[phone]. , [place] [address] tel: tel:+ [phone] OFFICE/OUTPAT [facility] back and Pain in joint Pedro Specialist IENT VISIT, [facility] right foot involving ankle 7-201 [facility] . 7235 : Rohith EST Pain [place] pain and footLumbago 4 [address] Olman Henderson, Clinic, (chief [place], 7373 7235 [address] complaint) [place], Haven Dimairis [place], [id number], S [address] [place], [place]. 306, [place], tel:+97068 [place], [phone]. , [place] tel: tel: [phone] OFFICE/OUTTNT [facility] back and Pain in joint Pedro Specialist IENT VISIT, [facility] right foot involving ankle 3-201 [facility] . 7235 : Rohith EST Pain [place] pain and 4 [address] Hien [place], Clinic, (chief footLumbagoPain [place], 737 3 7235 [address] complaint) in joint DOUG, Haven Elizabeth [place], involving lower [id number], S Priscilla te [place], leg [place]. 306, [place], tel:+[phone] [place], [place], [phone] [phone] [phone]. , [place] tel: tel: [phone] OFFICE/OUTPAT [facility] right foot Pain in joint Apr- Kanga s Specialist IENT VISIT, [facility] pain involving ankle 4-201 [facility]. 7 235 : Rohith EST Pain [place] (chief and footLumbago 4 [address] Olman Henderson er, Clinic, complaint) [place], 7373 7235 [address] low back [place], Haven Che [place], pain [id number], [address] [place], (chief [place]. 306, [place], complaint) tel:+65152 Jose Coleman N, [phone] 67838 64348. , [place] tel:+ tel:+ [phone] [place] [address] No Information Will Faisal. [facility] 8 [address]235 [address] Pain [place] 4 [place], Clinic, [place], [address] [place], [place], [id number], [place], [place], tel:[phone] , [place] tel: [phone] OFFICE/OUTPAT [facility] right foot Pain in joint Will Faisal. Specialist IENT VISIT, [facility] pain involving ankle 3- 7235 Oh[address] s : Rohith EST Pain [place] (chief and foot 4 [place], Hien, Clinic, complaint) [place], 7373 [address] [place], Haven Elizabeth [place], [id number], S Suite [place], [place]. 306, [place], tel:+[phone] [place], [place], [phone] [phone]. , [place] tel: tel: [phone] [place] [address] right foot Pain in joint No Spe [facility] pain involving ankle 2-201 Information : Rohith Pain [place] (chief and foot 3 Hien, Clinic, complaint) 7373 7235 [facility] Haven Clara [place], [address] [place], 306, [place], [place], [place], [id number] 18391. , [place] tel: tel:+ [phone] OFFICE/OUTPAT [facility] right foot Pain in joint Sep- No Specialist IENT VISIT, [facility] pain involving ankle 1- Informat ion : Rohith EST Pain [place] (chief and foot 3 Hien, Clinic, complaint) [address] Haven Henderson, [address] [place], 306, [place], [place], [place], [phone] [address]111. , [place] tel: tel: [phone] OFFICE/OUTPAT [facility] right foot Pain in joint No Specialist IENT VISIT, [facility] pain involving ankle 6-201 Informat ion : Rohith EST Pain [place] (chief and foot 3 Hien, Clinic, complaint) [address] Haven [place], [address] [place], 306, [place], [place], [place], [id number] 55997. , [place] tel: tel: [phone] OFFICE/OUTPAT [facility] right foot Pain in joint No Specialist IENT VISIT, [facility] pain involving ankle 9-201 Informat ion : Rohith EST Pain [place] (chief and 3 Hien, Clinic, complaint) footDegeneratio 7373 7235 [address] n of lumbar or Haven Henderson, lumbosacral [address] [place], intervertebral 306, [place], disc [place], [place], [id number] 62205. , [place] tel: tel: [phone] OFFICE/OUTPAT [facility] right foot Pain in joint No Specialist IENT VISIT, [facility] pain involving ankle 0-201 Informat ion : Rohith EST Pain [place] (chief and foot 3 Hien, Clinic, complaint) 7373 [address] Haven Henderson [address] [place], 306, [place], [place], [place], [id number] 61763. , [place] tel: tel: [phone] OFFICE/OUTPAT [facility] right foot Pain in joint No Specialist IENT VISIT, [facility] pain involving ankle 1-201 Informat ion : Rohith EST Pain [place] (chief and foot 2 Hien, Clinic, complaint) [address] Haven Henderson [address] [place], 306, [place], [place], [place], [id number] 61970. , [place] tel: tel: [phone] OFFICE/OUTPAT [facility] right foot Pain in joint No Specialist IENT VISIT, [facility] pain involving ankle 4-201 Informat ion : Rohith EST Pain [place] (chief and foot 2 Hien, Clinic, complaint) [address] Haven Elizabeth [place], [address] [place], 306, [place], [place], [place], [id number] [address]264. , [place] tel: tel: [phone] OFFICE/OUTPAT [facility] right foot Pain in joint Will Faisal. IENT VISIT, [facility] pain involving ankle 2-201 7235 Ohm s EST Pain [place] (chief and foot 2 [place], Clinic, complaint) [place], [address]235 [address] [place], [id number], [place], [place], tel:[phone] [phone] , [place] tel: [phone] OFFICE/OUTPAT [facility] right foot Pain in joint Will Faisal. IENT VISIT, [facility] pain involving ankle 7-201 7235 Ohm s EST Pain [place] (chief and foot 2 [place], Clinic, complaint) [place], [address] [place], [id number], [place], [place], tel:[phone] , [place] tel: [phone] OFFICE/OUTPAT [facility] right foot Pain in joint Will Faisal. IENT VISIT, [facility] pain involving ankle 7-201 7235 Ohm s EST Pain [place] (chief and foot 2 [place], Clinic, complaint) [place], [address] DOUGSantiago, [id number], [place], [place]. [place], tel:[phone] 87624 , [place] tel: [phone] OFFICE/OUTPAT [facility] right foot Pain in joint Will Faisal. IENT VISIT, [facility] pain involving ankle 7-201 7235 Ohm s EST Pain [place] (chief and 2 [place], Clinic, complaint) footEnthesopath [place], 7235 [address] y of hip region [place], [id number], [place], [place]. [place], tel:[phone] , [place] tel: [phone] OFFICE/OUTPAT [facility] right foot Pain in joint Will Faisal. IENT VISIT, [facility] pain involving ankle 0-201 7235 Oh[address] s EST Pain [place] (chief and foot 1 [place], Clinic, complaint) [place], [address] [place], [place], [id number], [place], [place]. [place], tel: [phone] , [place] tel: [phone] OFFICE/OUTPAT Twin [employer] [facility] right foot Pain in joint Will Faisal. IENT VISIT, [facility] pain and involving ankle 4-201 7235 Oh ms EST Pain [place] low back and 1 [place], Clinic, pain footInterverteb [place], [address]235 [address] (chief ral disc [place], [place], complaint) disorder with [id number], [place], myelopathy, [place], lumbar region tel: [phone] , [place] tel: [phone] OFFICE/OUTPAT [facility] low back Intervertebral Will Harley dorman. IENT VISIT, [facility] pain disc disorder [address]235 [address] EST Pain [place] (chief with 1 [place], Clinic, complaint) myelopathy, [place], [address] right foot lumbar [place], [place], pain regionPain in [id number], [place], (chief joint involving [place], complaint) ankle and foot tel: [phone] , [place] tel: [phone] OFFICE/OUTPAT [place] [facility] right foot Pain in joint Will Faisal. IENT VISIT, [facility] pain involving ankle 8-201 7235 [address] s EST Pain [place] (chief and 1 [place], Clinic, complaint) footInterverteb [place], [address] low back ral disc [place], [place], pain disorder with [id number], [place], (chief myelopathy, [place]. [place], complaint) lumbar region tel: [phone] , [place] tel: [phone] OFFICE/OUTPAT [facility] right foot Pain in joint Will Faisal. IENT VISIT, [facility] Pain Clinic pain involving ankle 7-201 [address] s EST Pain [place] (chief and 1 [place], Clinic, complaint) footAcquired [place], [address] musculoskeletal [place], [place], deformity of [id number], [place], unspecified [place]. [place], site tel:[phone] , [place] tel:[phone] OFFICE/OUTPAT [facility] right foot Acquired Will Noah moulton IENT VISIT, [facility] Pain Clinic pain musculoskeletal [address] s EST Pain [place] (chief deformity of 1 [place], Clinic, complaint) unspecified [facility] [address] sitePain in [place], [place], joint involving [id number], [place], ankle and foot [place], tel:[phone] , [place] tel: [phone] OFFICE/OUTPAT [facility] right foot Pain in joint Will IENT VISIT, [facility] pain involving ankle [address] s EST Pain [place] (chief and 0 [place], Clinic, complaint) footAcquired [place] [address] [address] musculoskeletal [place], [place], deformity of [id number], [place], unspecified [place], site tel:[phone] , [place] tel: [phone] OFFICE/OUTTNT [facility] right foot Acquired Will Noah moulton IENT VISIT, [facility] pain musculoskeletal [address] EST Pain [place] (chief deformity of 0 [place], Clinic, complaint) unspecified [facility] [address] [place]Pain in [place], [place], joint involving [id number], [place], ankle and foot [place], tel:[phone] , [place] tel: [phone] OFFICE/OUTPAT [facility] right foot Acquired Will Noah moulton IENT VISIT, [facility] pain musculoskeletal [address] s EST Pain [place] (chief deformity of 0 [place], Clinic, complaint) unspecified [facility] [address] [place]Pain in [place], [place], joint involving [id number], [place], ankle and [place], footAnkylosis tel:[phone] of ankle and 287[address] , [place] foot joint tel: [phone] OFFICE/OUTPAT [facility] right foot Pain in joint Will IENT VISIT, [facility] pain involving ankle 3-201 [address] s EST Pain [place] (chief and 0 [place], Clinic, complaint) footAcquired [place], [address] musculoskeletal [place], [place], deformity of [id number], [place], unspecified [place], site tel:[phone] , [place] tel: [phone] [facility] right foot Acquired Will Faisal. [facility] pain musculoskeletal 7-201 [address] Pain [place] (chief deformity of 0 [place], Clinic, complaint) unspecified [place], [address] sitePain in [place], [place], joint involving [id number], [place], ankle and foot [place], tel:[phone] , [place] tel: [phone] OFFICE/OUTPAT [facility] foot pain Pain in joint Will A ndrew. IENT VISIT, [facility] (chief involving ankle 4-201 [address] s EST Pain [place] complaint) and 0 [place], Clinic, footAcquired [place] [address] [address] musculoskeletal [place], [place], deformity of [id number], [place], unspecified [place], siteAnkylosis tel:[phone] of ankle and [address] , [place] foot jointViral tel: [phone] OFFICE/OUTPAT [facility] right foot Pain in joint Will Faisal. IENT VISIT, [facility] pain involving ankle 0-200 [address] s EST Pain [place] (chief and 9 [place], Clinic, complaint) footAcquired [place] [address] [address] musculoskeletal [place], [place], deformity of [id number], [place], unspecified [place], siteAnkylosis tel:[phone] of ankle and 95927 , [place] foot joint tel: [phone] [facility] Foot pain Pain in joint Will Faisal. [facility] (chief involving ankle 0-200 [address] Pain [place] complaint) and 9 [place], Clinic, footAcquired [place], [address] musculoskeletal [place], [place], deformity of [id number], [place], unspecified 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 [facility] Clinic pain ankle and foot 6-200 [address] Pain [place] (chief joint 9 [place], Clinic, complaint) [place], [address] [place], [place], [id number], [place], [place]. [place], tel:[phone] , [place] tel:[phone] Family History Family Member Type Diagnosis Age At Onset Mother Problem (finding) back pain Payers Payer name Insurance type Covered democrat ID Authorization(s ) [facility] MedicareComplete Replacement [id number] Social History Type Description Quantity Date Captured [...] Medication Reconciliation. Due o n due Goal CASTING ROOM HELPER Scanned. Due on due Goal Update Social History. Due on Oc due Goal Zoster vaccine (). Due on Nov due Goal ALT (SGPT). Due on d ue Goal CT-Colonography. Due on due Goal Unhealthy drug use screening. Du e on due Goal FIT. Due on due Goal VIRTUALIZATION ARCHITECT Paperwork. Due on due Goal PHQ-9. Due on due Goal OARS. Due on due Goal Tobacco Use. Due on due Goal Update Social History. Due on Se due Goal Zoster vaccine (1st). Due on Oct due Goal VIRTUALIZATION ARCHITECT Paperwork. Due on due Goal ALT (SGPT). [...] AST (SGOT). Due on d ue Goal CASTING ROOM HELPER Scanned. Due on due Goal Height. Due [...] Medication Reconciliation. Due o n due Goal VIRTUALIZATION ARCHITECT Paperwork. Due on due Goal CASTING ROOM HELPER Scanned. Due on due Goal Weight. Due on due Goal Order Annual PT. Due on 022 due Goal Update Social History. Due on due Goal PHQ-9. Due on due Goal UDT. Due on due Goal Tobacco Use. Due on due Goal FIT. Due on due Goal Height. Due on due Goal Order Annual PT. Due on 022 due Goal CASTING ROOM HELPER Scanned. Due on due Goal Creatinine. Due on d ue Goal VIRTUALIZATION ARCHITECT Paperwork. Due on due Goal Medication Reconciliation. Due o n due Goal UDT. Due on due Goal OARS. Due on due Goal AST (SGOT). Due on d ue Goal ALT (SGPT). Due on d ue Goal PHQ-9. Due on due Goal Update Social History. Due on due Goal Hepatitis C screening. Due on due Goal FIT. Due on due Goal Unhealthy drug use screening. Du e on due Goal Height. Due on due [...] Goal Tobacco Use. Due on due Goal Review Allergy List. Due on due Goal Weight. Due on due Goal VIRTUALIZATION ARCHITECT Paperwork. Due on due Goal Height. Due on due Goal OARS. Due on due Goal ALT (SGPT). Due on d ue Goal Creatinine. Due on d ue Goal Lipid panel. Due on due Goal Hepatitis C screening. Due on due Goal Medication Reconciliation. Due o n due Goal Order Annual PT. Due on due Goal FIT-DNA. Due on due Goal CASTING ROOM HELPER Scanned. Due on due Goal FIT. Due on due Goal UDT. Due on due Goal Update Social History. Due on due Goal Unhealthy drug use screening. Du e on due Goal Zoster vaccine (). Due on Sep due Goal CT-Colonography. Due on due Goal UDT. Due on due Goal Review Allergy List. Due on due Goal OARS. Due on due Goal Creatinine. Due on d ue Goal CASTING ROOM HELPER Scanned. Due on due Goal VIRTUALIZATION ARCHITECT Paperwork. Due on due Goal Order Annual [...] AST (SGOT). Due on d ue Goal VIRTUALIZATION ARCHITECT Paperwork. Due on due Goal Height. Due on due Goal Order Annual PT. Due on due Goal Creatinine. Due on d ue Goal ALT (SGPT). Due on d ue Goal UDT. Due on due Goal CASTING ROOM HELPER Scanned. Due on due Goal FIT-DNA. Due on due Goal Hepatitis C screening. Due on due Goal Tobacco Use. Due on due Goal Unhealthy drug use screening. Du e on due Goal Lipid panel. Due on [...] ue Goal OARS. Due on due Goal CASTING ROOM HELPER Scanned. Due on due Goal UDT. Due on due Goal ALT (SGPT). Due on d ue Goal Tobacco Use. Due on due Goal Order Annual PT. Due on due Goal Hepatitis C screening. Due on due Goal AST (SGOT). Due on d ue Goal VIRTUALIZATION ARCHITECT Paperwork. Due on due Goal Lipid panel. Due on due Goal Medication Reconciliation. Due o n due Goal PHQ-9. Due on due Goal CT-Colonography. Due on due Goal VIRTUALIZATION ARCHITECT Paperwork. Due on due Goal Weight. Due [...] use screening. Du e on due Goal CASTING ROOM HELPER Scanned. Due on due Goal Creatinine. Due on d ue Goal OARS. Due on due Goal FIT. Due on due Goal Review Allergy List. Due on due Goal Height. Due on due Goal FIT-DNA. Due on due Goal Zoster vaccine (1st). Due on May due Goal Review Allergy List. Due on due Goal Update Social History. Due on Nj due Goal PHQ-9. Due on due Goal Weight. Due on due Goal Medication Reconciliation. Due o n due Goal VIRTUALIZATION ARCHITECT Paperwork. Due on due Goal CASTING ROOM HELPER Scanned. Due on due Goal Order Annual PT. Due on due Goal Creatinine. Due on d ue Goal UDT. Due on due Goal Height. Due on due Goal OARS. Due on due Goal ALT (SGPT). Due on d ue Goal Tobacco Use. Due on due Goal AST (SGOT). Due on d ue Goal VIRTUALIZATION ARCHITECT Paperwork. Due on due Goal Update Social History. Due on due Goal Weight. Due on due Goal PHQ-9. Due on due Goal Height. Due on due Goal Creatinine. Due on d ue Goal CASTING ROOM HELPER Scanned. Due on due Goal AST (SGOT). Due on d ue Goal ALT (SGPT). Due on d ue Goal UDT. Due on due Goal Review Allergy List. Due on due Goal Order Annual PT. Due on due Goal OARS. Due on due Goal Medication Reconciliation. Due o n due Goal Tobacco Use. Due on due Goal OARS. Due on due Goal CASTING ROOM HELPER Scanned. Due on due Goal Tobacco Use. Due on due Goal Order Annual PT. Due on 022 due Goal VIRTUALIZATION ARCHITECT Paperwork. Due on due Goal PHQ-9. Due [...] Review Allergy List. Due on due Goal VIRTUALIZATION ARCHITECT Paperwork. Due on due Goal ALT (SGPT). Due on d ue Goal CASTING ROOM HELPER Scanned. Due on due Goal AST (SGOT). Due on d ue Goal Update Social History. Due on due Goal OARS. Due on due Goal Medication Reconciliation. Due o n due Goal PHQ-9. Due on due Goal Tobacco Use. Due on due Goal Weight. Due on due Goal Height. Due on due Goal OARS. Due on due Goal Height. Due on due Goal CASTING ROOM HELPER Scanned. Due on due Goal Weight. Due on due Goal Review Allergy List. Due on due Goal VIRTUALIZATION ARCHITECT Paperwork. Due on due Goal Update Social [...] Review Allergy List. Due on due Goal CASTING ROOM HELPER Scanned. Due on due Goal Height. Due on due Goal Creatinine. Due on d ue Goal VIRTUALIZATION ARCHITECT Paperwork. Due on due Goal ALT (SGPT). Due on d ue Goal AST (SGOT). Due on d ue Goal Update Social History. Due on Oc due Goal UDT. Due on due Goal Order Annual PT. Due on due Goal Weight. Due on due Goal OARS. Due on due Goal Medication Reconciliation. Due o n due Goal Tobacco Use. Due on due Goal PHQ-9. Due on due Goal Tobacco Use. Due on due Goal Update Social History. Due on Se due Goal OARS. Due on due Goal Weight. Due on due Goal CASTING ROOM HELPER Scanned. Due on due Goal UDT. Due on due Goal ALT (SGPT). Due on d ue Goal VIRTUALIZATION ARCHITECT Paperwork. Due on due Goal PHQ-9. Due [...] Annual PT. Due on 021 due Goal Creatinine. Due on d ue Goal Height. Due on due Goal VIRTUALIZATION ARCHITECT Paperwork. Due on due Goal AST (SGOT). Due on d ue Goal Tobacco Use. Due on due Goal PHQ-9. Due on due Goal Update Social History. Due on due Goal Weight. Due on due Goal OARS. Due on due Goal Review Allergy List. Due on due Goal UDT. Due on due Goal CASTING ROOM HELPER Scanned. Due on due Goal UDT. Due on due Goal ALT (SGPT). Due on d ue Goal CASTING ROOM HELPER Scanned. Due on due Goal PHQ-9. Due on due Goal Tobacco Use. Due on due Goal Medication Reconciliation. Due o n due Goal Height. Due on due Goal Creatinine. Due on d ue Goal Order Annual PT. Due on 021 due Goal OARS. Due on due Goal VIRTUALIZATION ARCHITECT Paperwork. Due on due Goal Weight. Due on due Goal Review Allergy List. Due on due Goal Update Social History. Due on due Goal AST (SGOT). Due on d ue Appointment Krys Lea BOOKED Appointment Krys Lea BOOKED Future Order: Lab Order COMPLIANCE DRUG ANALYSIS , URINE, WITH MED Ordered REPORT ([id number]), Ordered on: Future Order: Lab Order Drug [...] meds/drugs, str etching, rest and changing positions. low back pain Severity level is 2. Duration: chronic. The problem is fluctuati ng. It occurs intermittently. Symp toms are aggravated by bending, walking, ho usework and prolonged positioning. Symptom s are relieved by ice, lying down, massage, pain meds/drugs, stretching, rest and changing positions. Comments: Yola brumfield [...] concerns. low back pain Severity level is 10 [...] HEP as able. Requesting cervical BOBO through [facility].Accompanied by her today. No fu [...] Participates in HEP as able. Inquires about Hoagland increase.Accom panied by her today. No further [...] griffin denies relieving factors. low back pain (comments) Yola presents [...] s. low back pain Severity level is 2. [...] Also recently completed a lumbar E SI. telephone services sales representative results pending, but notes s he has [...] cently underwent R hip bursa injection thro [facility] which has offered benefit. R w [...] ongoing low back pain which is worsening.P valerie did not report percentage of pain r elief with current medication regimen, but pain goes from 9 to a 5 on pain scale with medications. Denies side effects from current medication regimen. Continues PT with ho me regimen. Methocarbamol caused lethargy, but restarted Flexeril. She considers an SCS dev ice. Cellulitis resolved. low back pain Severity level is mo [...] PT at this time. Presents with #15 Hoagland and # 14 Methadone - on track. Reports current medi cation regimen provides 50% pain relief and allows for increased functionality. Denjoie s side effects from current medication r [...] with her orthopedist. Patient presents with #135.5 Hoagland, and #14 Metha done - both are [...] t and changing positions. low back pain Severity [...] s and rest. low back pain (comments) Krys is here for follow up and medications refill. She reports of her pain to have been stable. She notes of acute R wrist pain and has EMG scheduled fo r further assessment. Presents with #20 Me thadone and #108.5 Hoagland - on track. Reports current medication regimen provides 90% pain relief and allows for increased functi onality. Denies side effects from current medication regimen.No other concerns today . low back pain (comments) Patient is here for a f/u. Has #74 Hoagland and #9 Methadone remaini ng - on [...] PT-N/AESI-N/ARF-not triedSCS-not tried Meds: Opioids-Currently ta kes Hoagland and Methadone Neuropathics-Current ly takes gabapentin Muscle [...] hip x-ray and reports no abnormalities. Jacy chambers to attend PT which provides benefit.Yvonne garcia [...] her e for a f/u. Has #52 Hoagland and #7 Methadone remaini ng - on track. Medications are effe ctive at relieving pain without SE. Ilanas pain has been stable since last visit. [...] refill. Presents wit h #7 methadone, #34 Hoagland - on track. Reports current medication regimen [...] planning a trip up north in [facility]. No other concerns today. low [...] and changing positio ns. low back pain Severity level is 4. [...] rest and sitting. low back pain (comments) Yola [...] had a quite hor rible trip to [place]. No other concerns today . low back [...] up and medication refill. She has #100 Hoagland and #5 methadone remaining-surplus. T he patient states the current medication r egimen continues to be effective at reducin g pain without SE. She got an injetion from [facility] and it did not provide any relief f or her. She went to see her spine surgeon wh o discussed surgery with her. She tried gabap entin and reports she was very drowsy on it. S he may be interested in trying Lyrica. No ot her concerns today. low back pain (comments) Patient is here for f/u. Patient has #104 Hoagland and #10 methad one remaining - on track. Patient reports 50% pain relief with meds. Patient is stable on these medications. Pt reports medication r egimen is effective at controlling her personal injury attorney audie low back pain. Continues her daily PT exercises. She does injections at [facility]. I s going to [place] in November. No other concerns to day. [...] She has # 8 methadone and #94.5 Hoagland remaining - on track/surplus. The patient reports [...] in [place]. She will be going to [place] in November. The charlene ent states gabapentin [...] low back pain. She has # 71 Hoagland and #8 methadone remaining - on track [...] low back pain. She has # 88.5 Hoagland and #19 methadone remaining - on track/surplus. [...] low back pain. She has # 90 Hoagland and #19 methadone remaining - on track/surplus. [...] low back pain. She has # 63 Hoagland and #12 methadone remaining - on track/surplus. [...] physical therapy and sitting. low back pain (comments) Krys is here today for follow up evaluation and medication refil ls relating to her low back pain. She has # 18 methadone and #45 Hoagland remaining - on track. She continues PT for her shoulder and has noticed some benefit. She had a l umbar BOBO at [facility] which has provided minimal relief to this point. The patient states t he current medication regimen continues to be effective for reducing pain. She C O trouble sleeping even when she uses Trazod one. She continues PT regularly. She will be going [place] a trip [place] this [place]. No other concerns today . [...] medication refill. She presents with #8 7.5 Hoagland and #20 methadone. She notif ied us [...] low back pain. She has # 63 Hoagland and #7 methadone remaining - on track [...] low back pain. She has # 47 Hoagland and #8 methadone remaining - on track [...] low back pain. She has # 31 Hoagland, #22 methadone and #19 Trazodone re maining - on track. She will be going on vac ation this week to [place]. She has not noticed any relief from her BOBO yet. She just transi tioned to an E-cig. She continues home exerc ise. She has experiended good relief from her shoulder injection at [facility] so she has not f ollowed [...] She an d her are going to [place] in [facility] er and she will need to come [...] flare since she had her epidural at [facility] last Thursday. States this has not [...] relieved by pain med s/drugs. Back Pain Onset: gradual witho ut injury. [...] activities. Symptoms are relieved by pain meds/drugs. Back Pain (comments) Here today for foll [...] t his helpful. Her is present today. Functional Status Date Functional Assessment No Information Instructions Date Instruction Additional Informati on Continue current medication Reviewed medications Follow exercise program Medications counted, patient has a surpl us Continue current medication Reviewed medications Follow exercise [...] Review of 2020 records from [facility] review her history of rheumatoid arthritis. assessment [...] has a history of cervical surgery. assessment intermediate (current) use of opiate analge sic [...]
--- OUTSIDE RECORDS SUMMARY | 2021-12-19 15:45 | XMS_ITS | Clinical Summary ---
:1950 Author Organization [place] Address [facility] [place] [address] Care Team Providers Name Role Phone Idalmis [...] be differe nt from the original. [email or web address] Problem Noted Date Constipation 12/17/2020 Generalized muscle [...] (Cologuard) 1950 FIT 1950 FLEX SIG 1950 HEPATITIS B IMMUNIZATION (1 1950 of 3 - 3-dose series) MAMMO SCREENING 1950 COLONOSCOPY 1960 COLORECTAL CANCER SCREENING 1960 HEPATITIS C SCREENING 1968 LIPID 06/10/1995 ZOSTER IMMUNIZATION (2 of 01/06/2012 11/11/2011 3) FALL RISK ASSESSMENT 06/10/2015 MEDICARE ANNUAL WELLNESS 06/10/2015 VISIT Pneumococcal Vaccine: 65+ 05/12/2016 08/02/2014, 05/13/2011 Years (#3) DTAP/TDAP/TD IMMUNIZATION 05/10/2020 05/10/2010, 08/18/1994 (2 - Td or Tdap) COVID-19 Vaccine (3 - 01/10/2021 11/15/2020, 10/25/2020 Booster for Pfizer series) PHQ-2 (once per calendar 03/02/2021 year) INFLUENZA VACCINE (#1) 2021 01/04/2021, 11/09/2019, 12/02/2018, Additional history exists IPV IMMUNIZATION Aged Out No longer eligi ble based on patient 's age to complete this topic MENINGITIS IMMUNIZATION Aged Out No longe r eligible based on patient 's age to complete this topic Insurance Payer Benefit Plan / Subscriber ID Effective Phone Address T ype Group Dates WORK COMP WC OTHER [id number] 2010-Pres [phone] [phone] [place] [address] [facility] [id number] 2018-Pres [phone] [address] [facility] [facility] [address] [place] [phone] [id number] Worker's Employer 1950 [phone] [address] Compensation 9 (Home) [facility] [address] [place] [address] Advance Directives For more information, please contact: [phone] Latest Code Status on File Code Status [...] with patient/legal dec ision maker Care Teams Tile Sorter Relationship Specialty Start Date End Date Idalmis Sloan PCP - General Family Practice 11/04/13 Madhav Matute MD Assigned Neuroscience 12/02/[id number] Senior [address] [place] [id number]
--- OUTSIDE RECORDS SUMMARY | 2021-12-19 15:46 | XMS_ITS | Encounter Summary ---
:1950 Author Organization [place] Address [address] [place] [address]. [place] [address] Care Team Providers Name Role Phone Idalmis Sloan Primary Care Provider Reason for Visit Diagnostic Imaging XR (Routine) - Closed Specialty Diagnoses / Procedures Referred By Contact Refer red To Contact Diagnoses Acute bilateral low back pain with left-sided sciatica Ana Jacobs PA-C Procedures XR Lumbar Bending Only 2/3 Views [facility] [address] [facility] [address] [place] [address] Referral ID Status Reason Start Date Expiration Date Visits Requ ested Visits Authorized [id number] Closed 10/29/2020 10/29/2021 1 1 Encounter Details Date Type Department Care Team Description 10/29/2020 Ancillary Procedure [facility] Ana Jacobs Acu te bilateral low Sports and Kieran PASamiC back pain with [facility] left-side d sciatica [facility] [address] [facility] [address] [place] [address] [place] [id number] Social History Tobacco Use Types Packs/Day Years [...] extension. JULIO CÉSAR HUITRON MD SYSTEM ID: [id number] Narrative 10/29/2020 4:29 PM CDT XR LUMBAR [...] extension. JULIO CÉSAR HUITRON MD SYSTEM ID: [id number] Ana Jacobs PA-C [facility] ORDER TRELL documented in this encounter Visit Diagnoses Diagnosis Acute bilateral low back pain with left- sided sciatica documented in this encounter Care Teams Engineer Process Relationship Specialty Start Date End Date Idalmis Sloan PCP - General Family Practice 11/04/13 documented as of this encounter
--- OUTSIDE RECORDS SUMMARY | 2021-12-19 15:46 | XMS_ITS | Encounter Summary ---
:1950 Author Organization [place] Address [address] [place] [id number] Care Team Providers Name Role Phone Idalmis [...] on filedocumented in this encounter Care Teams Sheet Metal Roofer Relationship Specialty Start Date End Date Idalmis Sloan PCP - General Family Practice 11/04/13 documented as of this encounter
--- OUTSIDE RECORDS SUMMARY | 2021-12-19 15:46 | XMS_ITS | Encounter Summary ---
:1950 Author Organization [place] Address [facility] [place] [address] Care Team Providers Name Role Phone Idalmis Sloan Primary Care Provider Encounter Details Date Type Department Care Team Description 02/16/2019 Therapy Visit [facility] Jensen Hernandez, PT Lumbar pain Rehabilitation Services [address] [facility] [address] [place] [address] [place] [address] Social History Tobacco Use Types Packs/Day Years Used Date Smoking Tobacco: Never Smokeless Tobacco: Never Sex Assigned at Date Recorded Not on file documented as of this encounter Progress Notes Jensen Hernandez, PT - 02/16/2019 3:20 PM CST [facility] Initial Evaluation Subjective: History of lumbar pain for years which has included 3 previous surgeries to her lower back. Pt can'trecall the dates of her surgeries. Pt noted pain of unknown etiology approximately 6 -8 weeks ago. Pt referred by MD for physical therapy on 12-29-18 The history is provided by the patient. No translator/interpreter was used. Type of problem: Lumbar Condition [...] Left: Moderate loss Right: Moderate loss Side [place]: Left: Right: Strength: weak lower abdominals and [...] and time spent performing 1:1 timed codes. IAL PROJECTS COORDINATOR documented in this encounter Plan of Treatment Not on filedocumented as of this encounter Procedures Procedure Name Priority Date/Time Associated Diagnosis Comme [facility] THERAPEUTIC Routine 02/16/2019 6:42 PM SPECIAL PROJECTS COORDINATOR Lumbar pain EXERCISES documented in this encounter Visit Diagnoses Diagnosis Lumbar pain Lumbago documented in this encounter Care Teams Grain Cleaner And Transfer Operator Relationship Specialty Start Date End Date Idalmis Sloan PCP - General Family Practice 11/04/13 documented as of this encounter
--- OUTSIDE RECORDS SUMMARY | 2021-12-19 15:46 | XMS_ITS | Encounter Summary ---
:1950 Author Organization [place] Address [address] [facility] [place] [address] Care Team Providers Name Role Phone Idalmis Sloan Primary Care Provider Reason for Visit [facility] Physical Therapy (Routine) - Closed Specialty Diagnoses / Procedures Referred By Contact Refer red To Contact Insurance Service Representative Diagnoses >4 Lefft side hip pain, LBP / Idalmis Sloan MD@ [place] / [facility] /referral exists 20V thru 03.01.18(MSG) Idalmis Sloan Linda, PTA / Physical Therapy Procedures SPINE FOLLOW UP [facility] [address] [place] [address] Referral ID Status Reason Start Date Expiration Date Visits Requ ested Visits Authorized [id number] Closed 03/16/2018 03/01/2019 20 18 Encounter Details Date Type Department Care Team Description 03/16/2018 Therapy Visit [facility] [place], Hip josefina n, left Rehabilitation Services [facility] [address] [facility] [address] [place] [address] Social History Tobacco Use Types Packs/Day Years Used Date Smoking Tobacco: Never Smokeless Tobacco: Never Sex Assigned at Date Recorded Not on file documented as of this encounter Plan of Treatment Not on filedocumented as of this encounter Procedures Procedure Name Priority Date/Time Associated Diagnosis Comme [facility] THERAPEUTIC Routine 03/17/2018 7:48 AM DIRECTOR ENTERPRISE SALES Hip pain, left EXERCISES documented in this encounter Visit Diagnoses Diagnosis Hip pain, left Pain in joint, pelvic region and thigh documented in this encounter Care Teams Flamer After Lasting Relationship Specialty Start Date End Date Idalmis Sloan PCP - General Family Practice 11/04/13 documented as of this encounter
--- OUTSIDE RECORDS SUMMARY | 2021-12-19 15:46 | XMS_ITS | Encounter Summary ---
:1950 Author Organization [place] Address [address] [place] [address] Care Team Providers Name Role Phone Idalmis Sloan Primary Care Provider Encounter Details Date Type Department Care Team Description [facility] Services [address] Dx) [address] [place] [address] [address] [address] [place] [address] (Work) [phone] Social History Tobacco Use Types Packs/Day Years Used Date Smoking Tobacco: Never Smokeless Tobacco: Never Sex Assigned at Date Recorded Not on file documented as of this encounter Plan of Treatment Not on filedocumented as of this encounter Procedures Procedure Name Priority Date/Time Associated Diagnosis Comme nts [facility] THERAPEUTIC Routine 02/21/2019 6:20 PM SET DECORATOR Lumbar pain ACTIVITIES [facility] THERAPEUTIC Routine 02/21/2019 6:20 PM SET DECORATOR Lumbar pain EXERCISES documented in this encounter Visit Diagnoses Diagnosis Lumbar pain - Primary Lumbago documented in this encounter Care Teams Scrip Clerk Relationship Specialty Start Date End Date Idalmis Sloan PCP - General Family Practice 11/04/13 documented as of this encounter
--- OUTSIDE RECORDS SUMMARY | 2021-12-19 15:46 | XMS_ITS | Encounter Summary ---
:1950 Author Organization [place] Address [address] [facility] [place] [address] Care Team Providers Name Role Phone Idalmis Sloan Primary Care Provider Reason for Visit Reason Comments Urgent Care Cough cough and sinus pressure, tr eated for bronchitis Encounter Details Date Type Department Care Team Description 04/05/[address] [facility] Laith Oliver Acute maxillary Urgent Care Lacy Craig MD sinusitis, recurrence [address] not specified ([facility] [place] [address] Dx) [id number] Social History Tobacco Use Types Packs/Day Years Used Date Smoking Tobacco: Never Smokeless Tobacco: Never Sex Assigned at Date Recorded Not on file documented as of this encounter Last Filed Vital Signs Vital Sign Reading Time Taken Comments Blood Pressure 136/78 04/05/2017 3:01 PM QUALITY IMPROVEMENT COORDINATOR Pulse 76 04/05/2017 3:01 PM QUALITY IMPROVEMENT COORDINATOR Temperature 36.9 ??C (98.5 ??F) 04/05/2017 3:01 PM QUALITY IMPROVEMENT COORDINATOR Respiratory Rate 18 04/05/2017 3:01 PM QUALITY IMPROVEMENT COORDINATOR Oxygen Saturation 96% 04/05/2017 3:01 PM QUALITY IMPROVEMENT COORDINATOR Inhaled Oxygen Concentration - - Weight 65.8 kg (145 lb) 04/05/2017 3:01 PM QUALITY IMPROVEMENT COORDINATOR Height - - Body Mass Index - [...] if getting worse . Laith Oliver MD ITY IMPROVEMENT COORDINATOR documented in this encounter Nursing Notes Ana [...] calculate BMI. Medication Reconciliation: incomplete Ana Ny TELETYPE INSTALLER ITY IMPROVEMENT COORDINATOR documented in this encounter Plan of Treatment Not on filedocumented as of this encounter Visit Diagnoses Diagnosis Acute maxillary sinusitis, recurrence no t specified - Primary documented in this encounter Care Teams Editorial Specialist Relationship Specialty Start Date End Date Idalmis Sloan PCP - General Family Practice 11/04/13 documented as of this encounter
--- OUTSIDE RECORDS SUMMARY | 2021-12-19 15:46 | XMS_ITS | Encounter Summary ---
:1950 Author Organization [place] Address [address] [place] [address] Care Team Providers Name Role Phone Idalmis [...] on filedocumented in this encounter Care Teams Glass Tube Bender Relationship Specialty Start Date End Date Idalmis Sloan PCP - General Family Practice 11/04/13 documented as of this encounter
--- OUTSIDE RECORDS SUMMARY | 2021-12-19 15:46 | XMS_ITS | Encounter Summary ---
:1950 Author Organization [place] Address [facility] [place] [address] Care Team Providers Name Role Phone Idalmis Sloan Primary Care Provider Reason for Referral Diagnostic Imaging XR (Routine) - Closed Specialty Diagnoses / Procedures Referred By Contact Refer red To Contact Diagnoses Acute bilateral low back pain with left-sided sciatica Ana Jacobs PA-C Procedures XR Lumbar Bending Only 2/3 Views [facility] [place] [address] Referral ID Status Reason Start Date Expiration Date Visits Requ ested Visits Authorized [id number] Closed 10/29/2020 10/29/2021 1 1 Diagnostic Imaging XR (Routine) - Closed Specialty Diagnoses / Procedures Referred By Contact Refer red To Contact Diagnoses Acute bilateral low back pain with left-sided sciatica Ana Jacobs PA-C Procedures XR Spine Complete Scoliosis 2 Views [facility] [place] [address] Referral ID Status Reason Start Date Expiration Date Visits Requ ested Visits Authorized [id number] Closed 10/29/2020 10/29/2021 [address] Scan (Routine) - Closed Specialty Diagnoses / Procedures Referred By Contact Refer red To Contact Diagnoses Acute bilateral low back pain with left-sided sciatica Ana Jacobs PA-C Procedures CT Lumbar Spine w/o Contrast [facility] [place] [place] [address] Referral ID Status Reason Start Date Expiration Date Visits Requ ested Visits Authorized [id number] Closed 10/29/2020 10/29/2021 1 1 Reason for Visit Reason Comments Consult Low back pain; L hip pain Neurologic Problem Encounter Details Date Type Department Care Team Description 10/29/2020 Office [place] [facility] [place] [address] [place] [address] Acute bilateral low back pain with left- sided sciatica (Primary Dx); [facility] Neurosurgery Ana Jacobs PA-C [facility] [address] [id number] Lumbar radiculopathy [facility] [place] [id number] [place] [address] Drive [address] [place] [phone] Social History Tobacco Use Types Packs/Day Years [...] will need to call to schedule. Call [place] radiology scheduling for your procedure: For scheduling in the [place] ([facility], and [place]) call [phone] or [phone] For scheduling at [facility] ([facility], [facility]), call [phone] or [phone] For scheduling in the [place] ([facility]) call [phone] or [phone] -Recommend scoliosis films in addition to standing XR neutral/flexion/extension -Recommend following up once all imaging has been obtained to review and go over next Ana Jacobs PA-C [facility] [address] [place] [address] documented in this encounter Progress Notes Ana [...] None of these modalities have provided anysignificant longterm relief. Krys's Sachin had prior back surgery [...] Dr. Souleymane Garcia approximately 5-6 years ago. The patient's [...] agreed to call our office back at [phone] to further discuss possible surgical interventions or [...] seek being evaluated. Respectfully, Ana Jacobs PA-C [facility] [address] [address] Exam, imaging, and plan reviewed by Dr. [...] MR 06/22/2020. TORRES RIVAS MD SYSTEM ID: ??[id number] Narrative 11/09/2020 9:[address] LUMBAR [...] MR 06/22/2020. TORRES RIVAS MD SYSTEM ID: [id number] Ana COULTER-C IMG CT ORDERABLES XR Lumbar [...] extension. JULIO CÉSAR HUITRON MD SYSTEM ID: ??[id number] Narrative 10/29/2020 4:29 PM CDT XR LUMBAR [...] extension. JULIO CÉSAR HUITRON MD SYSTEM ID: [id number] Ana Jacobs PA-C IMG DIAGNOSTIC IMAGING ORDER [...] sciatica documented in this encounter Care Teams Webbing Weaver Relationship Specialty Start Date End Date Idalmis Sloan PCP - General Family Practice 11/04/13 documented as of this encounter
--- OUTSIDE RECORDS SUMMARY | 2021-12-19 15:46 | XMS_ITS | Encounter Summary ---
:1950 Author Organization [place] Address [address] [place] [address]. [place] [address] Care Team Providers Name Role Phone Idalmis Sloan Primary Care Provider Reason for Visit Diagnostic Imaging XR (Routine) - Closed Specialty Diagnoses / Procedures Referred By Contact Refer red To Contact Diagnoses Acute bilateral low back pain with left-sided sciatica Ana Jacobs PA-C Procedures XR Spine Complete Scoliosis 2 Views [facility] [address] [facility] [address] [place] [address] Referral ID Status Reason Start Date Expiration Date Visits Requ ested Visits Authorized [id number] Closed 10/29/2020 10/29/2021 1 1 Encounter Details Date Type Department Care Team Description 10/29/2020 Ancillary Procedure [facility] Ana Jacobs Acu te bilateral low Sports and VIELKA Alcaraz back pain with Orthopedic Care [facility] left-side d sciatica [facility] [address] [facility] [address] [facility] [address] [place] [address] [place] [id number] Social History Tobacco Use Types Packs/Day Years [...] sciatica documented in this encounter Care Teams Rn Oncology Research Relationship Specialty Start Date End Date Idalmis Sloan PCP - General Family Practice 11/04/13 documented as of this encounter
--- OUTSIDE RECORDS SUMMARY | 2021-12-19 15:46 | XMS_ITS | Encounter Summary ---
:1950 Author Organization [place] Address [address] [place] [address] Care Team Providers Name Role Phone Idalmis [...] on filedocumented in this encounter Care Teams Grinder Set Up Operator Surface Relationship Specialty Start Date End Date Idalmis Sloan PCP - General Family Practice 11/04/13 documented as of this encounter
--- OUTSIDE RECORDS SUMMARY | 2021-12-19 15:46 | XMS_ITS | Encounter Summary ---
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) [facility] [address] [facility] [address] [place] [address] Social History Tobacco Use Types Packs/Day Years Used Date Smoking Tobacco: Never Smokeless Tobacco: Never Sex Assigned at Date Recorded Not on file documented as of this encounter Plan of Treatment Not on filedocumented as of this encounter Procedures Procedure Name Priority Date/Time Associated Diagnosis Comme nts Z THERAPEUTIC Routine 03/09/2019 3:43 PM PULLEY MAN Lumbar pain ACTIVITIES ZZ THERAPEUTIC Routine 03/09/2019 3:43 PM PULLEY MAN Lumbar pain EXERCISES documented in this encounter Visit Diagnoses Diagnosis Lumbar pain - Primary Lumbago documented in this encounter Care Teams Patient Services Coordinator Relationship Specialty Start Date End Date Idalmis Sloan PCP - General Family Practice 11/04/13 documented as of this encounter
--- OUTSIDE RECORDS SUMMARY | 2021-12-19 15:46 | XMS_ITS | Encounter Summary ---
:1950 Author Organization [place] Address [address] [place] [address] Care Team Providers Name Role Phone Idalmis Sloan Primary Care Provider Encounter Details Date Type Department Care Team Description 11/30/2015 Therapy Visit [facility] [place] Saeed PT Sprain of left rotator cuff capsule, sub sequent encounter (Primary Dx); Rehabilitation [facility] Other postprocedural status(V45.89) Services [address] Specialty Care [address] [facility] [address] [address] [place], [place] [address] [address] [place] [address] [phone] Social History Tobacco Use Types Packs/Day Years [...] status documented in this encounter Care Teams Auto Phone Installer Relationship Specialty Start Date End Date Idalmis Sloan PCP - General Family Practice 11/04/13 documented as of this encounter
--- OUTSIDE RECORDS SUMMARY | 2021-12-19 15:46 | XMS_ITS | Encounter Summary ---
:1950 Author Organization [place] Address [address] [place] [address] Care Team Providers Name Role Phone Idalmis Sloan Primary Care Provider Ana Jacobs PA-C Unavailable Reason for Referral Diagnostic Imaging CT Scan (Routine) - Closed Specialty Diagnoses / Procedures Referred By Contact Refer red To Contact Diagnoses Acute bilateral low back pain with left-sided sciatica Ana Jacobs PA-C Procedures CT Lumbar Spine w/o Contrast [facility] [address] [place] [address] Referral ID Status Reason Start Date Expiration Date Visits Requ ested Visits Authorized [id number] Closed 10/29/2020 10/29/2021 1 1 Reason for Visit Diagnostic Imaging CT Scan (Routine) - Closed Specialty Diagnoses / Procedures Referred By Contact Refer red To Contact Diagnoses Acute bilateral low back pain with left-sided sciatica Ana Jacobs PA-C Procedures CT Lumbar Spine w/o Contrast [facility] [place] [address] Referral ID Status Reason Start Date Expiration Date Visits Requ ested Visits Authorized [id number] Closed 10/29/2020 10/29/2021 1 1 Encounter Details Date Type Department Care Team Description 11/08/2020 [facility] VIELKA Alcaraz back pain with [address] [facility] left-sided sciatica [facility] [id number] [address] [place] [phone] [place] [address] Social History Tobacco Use Types Packs/Day Years [...] MR 06/22/2020. TORRES RIVAS MD SYSTEM ID: ??[id number] Narrative 11/09/2020 9:[address] LUMBAR [...] MR 06/22/2020. TORRES RIVAS MD SYSTEM ID: [id number] Ana Jacobs PA-C IMG CT ORDERABLES documented in this encounter Visit Diagnoses Diagnosis Acute bilateral low back pain with left- sided sciatica documented in this encounter Care Teams Flight Communications Operator Relationship Specialty Start Date End Date Idalmis Sloan PCP - General Family Practice 11/04/13 Ana Jacobs PA-C Assigned Neuroscience 11/04/20 12/01/20 [facility] Provider [address] [address] documented as of this encounter
--- OUTSIDE RECORDS SUMMARY | 2021-12-19 15:46 | XMS_ITS | Encounter Summary ---
:1950 Author Organization [place] Address [address] [place] [address] Care Team Providers Name Role Phone Idalmis [...] on filedocumented in this encounter Care Teams Lead Teller Relationship Specialty Start Date End Date Idalmis Sloan PCP - General Family Practice 11/04/13 documented as of this encounter
--- OUTSIDE RECORDS SUMMARY | 2021-12-19 15:46 | XMS_ITS | Encounter Summary ---
:1950 Author Organization [place] Address [address] [place] [address] Care Team Providers Name Role Phone Idalmis [...] on filedocumented in this encounter Care Teams Superintendent Automotive Relationship Specialty Start Date End Date Idalmis Sloan PCP - General Family Practice 11/04/13 documented as of this encounter
--- OUTSIDE RECORDS SUMMARY | 2021-12-19 15:46 | XMS_ITS | Encounter Summary ---
:1950 Author Organization [place] Address [address] [place] [address] Care Team Providers Name Role Phone Idalmis [...] on filedocumented in this encounter Care Teams Show Host/Hostess Relationship Specialty Start Date End Date Idalmis Sloan PCP - General Family Practice 11/04/13 documented as of this encounter
--- OUTSIDE RECORDS SUMMARY | 2021-12-19 15:46 | XMS_ITS | Encounter Summary ---
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) [facility] [address] [facility] [address] [place] [address] Social History Tobacco Use Types Packs/Day Years Used Date Smoking Tobacco: Never Smokeless Tobacco: Never Sex Assigned at Date Recorded Not on file documented as of this encounter Plan of Treatment Not on filedocumented as of this encounter Procedures Procedure Name Priority Date/Time Associated Diagnosis Comme nts ZZC THERAPEUTIC Routine 03/30/2019 3:56 PM BRAND SPECIALIST Lumbar pain ACTIVITIES ZZ THERAPEUTIC Routine 03/30/2019 3:56 PM BRAND SPECIALIST Lumbar pain EXERCISES documented in this encounter Visit Diagnoses Diagnosis Lumbar pain - Primary Lumbago documented in this encounter Care Teams Counseling Director Relationship Specialty Start Date End Date Idalmis Sloan PCP - General Family Practice 11/04/13 documented as of this encounter
--- OUTSIDE RECORDS SUMMARY | 2021-12-19 15:46 | XMS_ITS | Encounter Summary ---
:1950 Author Organization [place] Address [address] [facility] [place] [address] Care Team Providers Name Role Phone Idalmis Sloan Primary Care Provider Reason for Visit [facility] Physical Therapy (Routine) - Closed Specialty Diagnoses / Procedures Referred By Contact Refer red To Contact Wood Floor Layer Diagnoses >4 Lefft side hip pain, LBP / Idalmis Sloan MD@ [place] / [facility] /referral exists 20V thru 03.01.18(MSG) Idalmis Sloan Linda, PTA / Physical Therapy Procedures SPINE FOLLOW UP [facility] [address] [place] [address] Referral ID Status Reason Start Date Expiration Date Visits Requ ested Visits Authorized [id number] Closed 03/16/2018 03/01/2019 20 18 Encounter Details Date Type Department Care Team Description 03/22/2018 Therapy Visit [facility] [place], Hip josefina n, left Rehabilitation Services [facility] Care [place] [address] [facility] [address] [place] [address] Social History Tobacco Use Types [...] Procedure Name Priority Date/Time Associated Diagnosis Comme [facility] THERAPEUTIC Routine 03/23/2018 12:46 PM Hip pain, left EXERCISES DIRECTOR OF FEDERAL SALES documented in this encounter Visit Diagnoses Diagnosis Hip pain, left Pain in joint, pelvic region and thigh documented in this encounter Care Teams Senior Ssis Developer Relationship Specialty Start Date End Date Idalmis Sloan PCP - General Family Practice 11/04/13 documented as of this encounter
--- OUTSIDE RECORDS SUMMARY | 2021-12-19 15:46 | XMS_ITS | Encounter Summary ---
:1950 Author Organization [place] Address [facility] [place] [address] Care Team Providers Name Role Phone Idalmis Sloan Primary Care Provider Reason for Visit Reason Comments Wound Infection Back Pain Nausea Diarrhea Auth/Cert Specialty Diagnoses / Procedures Referred By Contact Refer red To Contact Med Surg Diagnoses Cellulitis of right foot H/O Clostridium difficile infection Diarrhea, unspecified type Cellulitis of right foot Observation Dept [address] [place], [place] [address] Phone: Referral ID Status Reason Start Date Expiration Date Visits Requ ested Visits Authorized [id number] 1 1 Encounter Details Date Type Department Care Team Description 11/04/2018 - [facility] Codie Morales MD [facility] [address] [place] [id number] Cellulitis of right foot; 11/06/2018 [facility] Observation Chuck Cook MD [address] [place] [place] [address] Diarrhea, unspecified type; Dept H/O Clostridium difficile in fection [address] [place] [address] Social History Tobacco Use Types [...] Branch PA-C - 11/06/2018 8:24 AM CDT [facility] Hospitalist Discharge Summary Date of Admission: 11/04/2018 [...] difficile than other alternatives. Pain controlled with [employer] WORK[employer] medications. No signs of sepsis. Diarrhea resolved while hospitalized, if recurrent suggest further outpatient work-up. Consultations This Hospital Stay None Code Status Full Code Time Spent on this Encounter I, Dayna Branch PA-C, personally saw the patient today and spent greater than 30 minutes discharging this patient. Dayna Branch PA-C [facility] Physical Exam Vital Signs: Temp: 97.5 ??F [...] Stephens PA-C - 11/05/2018 12:30 PM CDT [facility] Observation Unit Hospitalist Progress Note Name: Krys [...] regimen of Methadone 5 mg BID and [place] 5-325 mg PRN TID #Diarrhea: reported 12 episodes of diarrhea the day prior to admission with only 2 episodes since arriving to the hospital. C diff negative. If increased diarrhea consider checking enteric panel. #Stable medical conditions: hypertension, hypercholesterolemia, GERD, PVD, hepatitis C, necessary [employer] WORK[employer] medications have been resumed. DVT Prophylaxis: Ambulate [...] contact Infection Prevention with any questions/concerns at *[phone]. Erica Jolly, VIKASH Grisel Samson RN - 11/04/2018 10:04 PM CDT ROOM # 205 Living Situation (if not independent, order SW consult): Home with Facility name: motor vehicle or caravan salesperson: Cheikh [phone] Activity level at baseline: Independent Activity level [...] Cook MD - 11/04/2018 9:58 PM CDT [facility] History and Physical Hospitalist Service Chuck Cook [...] Full Code Primary Care Physician: Idalmis Sloan [phone] Chief Complaint: Swelling and redness of right [...] Samson RN - 11/04/2018 8:36 PM CDT [facility] ED Nurse Handoff Report Krys Mosher [...] 1. Lift room needed: No. Bariatric: No Claims Manager Needed: No Isolation: yes. Infection: C-Diff [...] provider's statements to me. Diana López 11/04/2018 [facility] EMERGENCY DEPARTMENT Mervin Morales MD 11/04/18 [id number] documented in this encounter Miscellaneous Notes Plan [...] Yes, SBA via gait belt and walker. Assessment Specialist Nurse Safe discharge environment identified: Yes Barriers [...] Return to near baseline physical activity: Yes Assessment Specialist Nurse Safe discharge environment identified: Yes Barriers [...] Return to near baseline physical activity: Yes Assessment Specialist Nurse Safe discharge environment identified: Yes Barriers [...] Pain status: Improved-controlled with oral pain medications. [place] dose ordered 1x 4. Return to near baseline physical activity: Yes Up with SBA 1 walker Assessment Specialist Nurse Safe discharge environment identified: Yes Barriers [...] L foot,pain at 8 sharp and shooting. Elk Park last at 1645, hx of chronic pain. thanks Plan of Care - Elizabeth Chong RN - 11/05/2018 3:31 PM CDT PRIMARY DIAGNOSIS: GENERIC NURSING OUTPATIENT/OBSERVATION GOALS TO BE MET BEFORE DISCHARGE: ADLs back to baseline: Yes Activity and level of assistance: Up with standby assistance. Pain status: Improved-controlled with oral pain medications. Return to near baseline physical activity: No Assessment Specialist Nurse Safe discharge environment identified: Yes Barriers [...] Return to near baseline physical activity: Yes Assessment Specialist Nurse Safe discharge environment identified: Yes Barriers [...] Return to near baseline physical activity: No Assessment Specialist Nurse Safe discharge environment identified: Yes Barriers [...] to continue with antibiotics and manage symptoms. Assessment Specialist Nurse Safe discharge environment identified: Yes Barriers [...] to continue with antibiotics and manage symptoms. Assessment Specialist Nurse Safe discharge environment identified: Yes Barriers to discharge: No Entered by: Grisel Samson 11/05/2018 Please review provider order for any additional goals. Nurse to notify provider when observation goals have been met and patient is ready for discharge. Pharmacy-Admission Medication History - Lazara Fontenot RPH - 11/04/2018 11:35 PM CDT 11/05 Addendum: per clarification with patient, added [place] 5-325 mg (1 tab TID prn) to [facility] [employer] WORK[employer] med list. Left sticky note to provider to review additional med. Lazara Fontenot PharmCecyD. Admission medication history interview status for this patient is complete. See [facility] admission navigator for allergy information, prior to admission medications and immunization status. Medication history interview source(s):Patient Medication history resources (including written lists, pill bottles, clinic record):[facility] records from [facility] Changes made to [facility] medication list: Added: all Medication reconciliation/reorder completed [...] Signature Potassium 3.8 3.4 - 5.3 11/05/2018 [facility] mmol/L 5:50 PM CDT HOSPITAL Specimen Anatomical Collection Method Collection Time Receive d Time (Source) Location / / Volume Laterality Blood specimen 11/05/2018 5:27 PM 019 5:28 (specimen) CDT PM CDT Kelly Stephens PA-C LAB - BLOOD ORDERABLES Performing Organization Address City/State/ZIP Code Phon e Number [facility] [address] [place], [place] [address] [facility] [address] [phone] (ABNORMAL) CBC with platelets (11/05/2018 6:42 AM CDT) Analysis Performed At Patho logist Time Signature WBC 8.8 4.0 - 11.0 11/05/2018 [facility] 10e9/L 7:04 AM [facility] RBC Count 3.60 (L) 3.8 - 5.2 11/05/2018 [facility] 10e12/L 7:04 AM [facility] Hemoglobin 12.3 11.7 - 11/05/2018 [facility] 15.7 g/dL 7:04 AM [facility] Hematocrit 36.4 35.0 - 11/05/2018 [facility] 47.0 % 7:04 AM [facility] MCV 101 (H) 78 - 100 11/05/2018 [facility] fl 7:04 AM [facility] MCH 34.2 (H) 26.5 - 11/05/2018 [facility] 33.0 pg 7:04 AM [facility] MCHC 33.8 31.5 - 11/05/2018 [facility] 36.5 g/dL 7:04 AM [facility] RDW 12.9 10.0 - 11/05/2018 [facility] 15.0 % 7:04 AM [facility] Platelet Count 191 150 - 450 11/05/2018 [facility] 10e9/L 7:04 AM [facility] Specimen Anatomical Collection Method Collection Time Receive d Time (Source) Location / / Volume Laterality Blood specimen 11/05/2018 6:42 AM 019 6:43 (specimen) CDT AM CDT Chuck Cook MD LAB - BLOOD ORDERABLES Performing Organization Address City/State/ZIP Code Phon e Number [facility] [address] [place] [address] HOSPITAL [facility] [address] [phone] (ABNORMAL) Basic metabolic panel (11/05/2018 6:42 AM CDT) P athologist Signature Sodium 137 133 - 144 11/05/2018 [facility] mmol/L 7:16 AM [facility] Potassium 3.3 (L) 3.4 - 5.3 11/05/2018 [facility] mmol/L 7:16 AM [facility] Chloride 101 94 - 109 11/05/2018 [facility] mmol/L 7:16 AM [facility] Carbon Dioxide 30 20 - 32 11/05/2018 [facility] mmol/L 7:22 AM [facility] Anion Gap 6 3 - 14 11/05/2018 [facility] mmol/L 7:22 AM [facility] Glucose 84 70 - 99 11/05/2018 [facility] mg/dL 7:22 AM [facility] Urea Nitrogen 7 7 - 30 11/05/2018 [facility] mg/dL 7:22 AM [facility] Creatinine 0.79 0.52 - 11/05/2018 [facility] 1.04 mg/dL 7:22 AM [facility] GFR Estimate 77 >60 11/05/2018 [facility] mL/min/{1. 7:22 AM [facility] 73_m2} HOSPITAL Comment: Non GFR Calc Starting 02/16/2018, serum creatinine ba sed estimated GFR (eGFR) will be calculated using the Chronic Kidney Dise [facility] Epidemiology Collaboration (CKD-EPI) equation. GFR Estimate If 89 >60 mL/min/{1.73_m2} 11/05/2018 7: 22 AM [facility] Comment: GFR Calc Starting 02/16/2018, serum creatinine ba sed estimated GFR (eGFR) will be calculated using the Chronic Kidney Dise [facility] Epidemiology Collaboration (CKD-EPI) equation. Calcium 8.2 (L) 8.5 - 10.1 mg/dL 11/05/2018 7:22 AM [facility] Specimen Anatomical Collection Method Collection Time Receive d Time (Source) Location / / Volume Laterality Blood specimen 11/05/2018 6:42 AM 019 6:43 (specimen) CDT AM CDT Chuck Cook MD LAB - BLOOD ORDERABLES Performing Organization Address City/State/ZIP Code Phon e Number [place] [address] [place] [address] [facility] [address] [place], [place] [address], [place] [phone] [place] [address] [place] [address], [place] [facility] Clostridium difficile toxin B PCR (11/04/2018 7:49 PM CDT) [facility] Method Time Signature Specimen Feces 11/04/2018 [facility] 7:49 PM CDT [facility] C Diff Toxin B Negative NEG^Negat 11/05/2018 [facility] sung 12:21 AM CDT [facility] Comment: Negative: Clostridium difficile target D NA sequences NOT detected, presumed negative for Clostridium difficile toxin B or the number of bacteria present may be below the limit of detection for the test. FDA approved assay performed using Clone GeneXpert real-time PCR. A negative result does [...] Organization Address City/State/ZIP Code Phon e Number [address] [address] [facility] [address] [place] [address], [place] [phone] Blood culture (11/04/2018 4:35 PM CDT) [facility] Method Time Signature Specimen Blood Right [...] MICRO GENERAL ORDERABL ES Performing Organization Address City/[facility]/ZIP Code Phon e Number INFECTIOUS DISEASES [address] [place] [address] DIAGNOSTIC LABORATORY, [facility] INFECTIOUS DISEASES [address] [place] [address], [place] DI[facility]IC LAB[facility] (ABNORMAL) Basic metabolic panel (11/04/2018 4:35 PM CDT) P athologist Signature Sodium 136 133 - 144 11/04/2018 [place] mmol/L 7:48 PM [facility] Potassium 3.0 (L) 3.4 - 5.3 11/04/2018 [facility] mmol/L 7:48 PM [facility] Chloride 97 94 - 109 11/04/2018 [facility] mmol/L 7:48 PM [facility] Carbon Dioxide 31 20 - 32 11/04/2018 [facility] mmol/L 7:54 PM [facility] Anion Gap 8 3 - 14 11/04/2018 [facility] mmol/L 7:54 PM [facility] Glucose 74 70 - 99 11/04/2018 [facility] mg/dL 7:54 PM [facility] Urea Nitrogen 8 7 - 30 11/04/2018 [facility] mg/dL 7:54 PM [facility] Creatinine 0.81 0.52 - 11/04/2018 [facility] 1.04 mg/dL 7:54 PM [facility] GFR Estimate 75 >60 11/04/2018 [facility] mL/min/{1. 7:54 PM [facility] 73_m2} [facility] Comment: Non GFR Calc Starting 02/16/2018, serum creatinine ba sed estimated GFR (eGFR) will be calculated using the Chronic Kidney Dise [facility] Epidemiology Collaboration (CKD-EPI) equation. GFR Estimate If 87 >60 mL/min/{1.73_m2} 11/04/2018 7: 54 PM [facility] Comment: GFR Calc Starting 02/16/2018, serum creatinine ba sed estimated GFR (eGFR) will be calculated using the Chronic Kidney Dise [facility] Epidemiology Collaboration (CKD-EPI) equation. Calcium 9.0 8.5 - 10.1 mg/dL 11/04/2018 7:54 PM [facility] Specimen Anatomical Collection Method Collection Time Receive d Time (Source) Location / / Volume Laterality Blood specimen 11/04/2018 4:35 PM 019 7:31 (specimen) CDT PM CDT Mervin Morales MD LAB - BLOOD ORDERABLES Performing Organization Address City/State/ZIP Code Phon e Number [facility] [address] [place], [place] [address] [facility] [address] [place], [place] [address] [place] [address] (ABNORMAL) CBC with platelets differential (11/04/2018 4:35 PM CDT) [facility] gist Method Time Signature WBC 9.9 4.0 - 11/04/2018 [facility] 11.0 7:35 PM [facility] 10e9/L [facility] RBC Count 4.22 3.8 - 5.2 11/04/2018 [facility] 10e12/L 7:35 PM [facility] Hemoglobin 14.3 11.7 - 11/04/2018 [facility] 15.7 g/dL 7:35 PM [facility] Hematocrit 42.9 35.0 - 11/04/2018 [facility] 47.0 % 7:35 PM [facility] MCV 102 (H) 78 - 100 11/04/2018 [facility] fl 7:35 PM [facility] MCH 33.9 (H) 26.5 - 11/04/2018 [facility] 33.0 pg 7:35 [facility] MCHC 33.3 31.5 - 11/04/2018 [facility] 36.5 g/dL 7:35 PM [facility] RDW 13.3 10.0 - 11/04/2018 [facility] 15.0 % 7:35 PM [facility] Platelet Count 233 150 - 450 11/04/2018 [facility] 10e9/L 7:35 PM [facility] Diff Method Automated 11/04/2018 [facility] Method 7:35 PM [facility] % Neutrophils 69.4 % 11/04/2018 [facility] 7:35 PM [facility] % Lymphocytes 23.2 % 11/04/2018 [facility] 7:35 PM [facility] % Monocytes 5.9 % 11/04/2018 [facility] 7:35 PM [facility] % Eosinophils 0.8 % 11/04/2018 [facility] 7:35 PM [facility] % Basophils 0.4 % 11/04/2018 [facility] 7:35 PM [facility] % Immature 0.3 % 11/04/2018 [facility] Granulocytes 7:35 PM [facility] Nucleated RBCs 0 0 /100 11/04/2018 [facility] 7:35 PM [facility] Absolute 6.8 1.6 - 8.3 11/04/2018 [facility] Neutrophil 10e9/L 7:35 PM [facility] Absolute 2.3 0.8 - 5.3 11/04/2018 [facility] Lymphocytes 10e9/L 7:35 PM [facility] Absolute 0.6 0.0 - 1.3 11/04/2018 [facility] Monocytes 10e9/L 7:35 PM [facility] Absolute 0.1 0.0 - 0.7 11/04/2018 [facility] Eosinophils 10e9/L 7:35 PM [facility] Absolute 0.0 0.0 - 0.2 11/04/2018 [facility] Basophils 10e9/L 7:35 PM [facility] Abs Immature 0.0 0 - 0.4 11/04/2018 [place] Granulocytes 10e9/L 7:35 PM [facility] Absolute 0.0 11/04/2018 [place] Nucleated RBC 7:35 PM [facility] Specimen Anatomical Collection Method Collection Time Receive d Time (Source) Location / / Volume Laterality Blood specimen 11/04/2018 4:35 PM 019 7:31 (specimen) CDT [facility] Mervin Morales MD LAB - BLOOD ORDERABLES Performing Organization Address City/State/ZIP Code Phon e Number [place] [address] [phone] documented in this encounter Visit Diagnoses Diagnosis [...] mg, Intravenous, ONCE, Administer over 2-5 Minutes, [facility] 11/04/18 at 1959, For 1 dose, Irritant. [...] (CANCEL ED) 2000 (Given - Provider: Dino Meraz RN) 0.5 mg, Intravenous, EVERY 15 [...] 12 HOURS PRN, jim sea, vomiting, Starting [facility] 11/04/18 at 2149, This is Step 2 [...] Oral, EVERY 6 HOURS PRN, vomiting, Starting [facility] 11/04/18 at 2149
This is Step 2 of nausea and vomiting management. Give if nausea not resolved 15 minutes after giving ondansetron (ZOFRAN). If nausea not resolved in 15 minutes, go to Step 3 metoclopramide (REGLAN), if ordered.
Or prochlorperazine (COMPAZINE) Suppository 12.5 mgJump to med 12.5 mg, Rectal, EVERY 12 HOURS PRN, jim sea, vomiting, Starting [facility] 11/04/18 at 2149
This is Step 2 of nausea and vomiting management. Give if nausea not resolved 15 minutes after giving ondanset rei (ZOFRAN). If nausea not resolved in 15 minutes, go to Step 3 metoclopramide (REGLAN), if ordered.
documented in this encounter Care Teams Graduate Advisor Relationship Specialty Start Date End Date Idalmis Sloan PCP - General Family Practice 11/04/13 documented as of this encounter
--- OUTSIDE RECORDS SUMMARY | 2021-12-19 15:46 | XMS_ITS | Encounter Summary ---
:1950 Author Organization [place] Address [address] [place] [address]. [place] [address] Care Team Providers Name Role Phone Idalmis Sloan Primary Care Provider Reason for Visit [facility] Physical Therapy (Routine) - Closed Specialty Diagnoses / Procedures Referred By Contact Refer red To Contact Physical Therapy Diagnoses >4, Back / Mercy Pedro @ [facility] Pain / [employer] Mercy Vasquez, MOTORCYCLE TESTER Daniel Shi, PT Procedures SPINE INITIAL [facility] PAIN [facility] [address] [place] [address] [place] [address] [place] [address] Referral ID Status Reason Start Date Expiration Date Visits Requ ested Visits Authorized [id number] Closed 07/22/2017 03/01/2018 18 Encounter Details Date Type Department Care Team Description 02/16/2018 [facility] Rehabilitation Services [address] [facility] [id number] [place] [address] [address] [address] [address] [place] [address] (Work) [phone] Social History Tobacco Use Types Packs/Day Years Used Date Smoking Tobacco: Never Smokeless Tobacco: Never Sex Assigned at Date Recorded Not on file documented as of this encounter Plan of Treatment Not on filedocumented as of this encounter Visit Diagnoses Not on filedocumented in this encounter Care Teams Hr Business Partner Consultant Relationship Specialty Start Date End Date Idalmis Sloan PCP - General Family Practice 11/04/13 documented as of this encounter
--- OUTSIDE RECORDS SUMMARY | 2021-12-19 15:46 | XMS_ITS | Encounter Summary ---
:1950 Author Organization [facility] Address [address] [place] [address] Care Team Providers Name Role Phone Idalmis [...] on filedocumented in this encounter Care Teams Refractory Furnace Designer Relationship Specialty Start Date End Date Idalmis Sloan PCP - General Family Practice 11/04/13 documented as of this encounter
--- OUTSIDE RECORDS SUMMARY | 2021-12-19 15:46 | XMS_ITS | Encounter Summary ---
:1950 Author Organization [place] Address [address] [place] [address] Care Team Providers Name Role Phone Idalmis [...] on filedocumented in this encounter Care Teams Knockdown Worker Relationship Specialty Start Date End Date Idalmis Sloan PCP - General Family Practice 11/04/13 documented as of this encounter
--- OUTSIDE RECORDS SUMMARY | 2021-12-19 15:46 | XMS_ITS | Encounter Summary ---
:1950 Author Organization [place] Address [facility] 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 Functionally has improved. INFRASTRUCTURE ARCHITECT Adiel Ramirez 04/14/2019 2:30 PM CST Assessment/Plan: [...] and time spent performing 1:1 timed codes. INFRASTRUCTURE ARCHITECT documented in this encounter Miscellaneous Notes Addendum Note - Adiel Ramirez - 04/14/2019 2:30 PM LEAD INFRASTRUCTURE ARCHITECT Addended by: ADIEL RAMIREZ on: 04/15/2019 11:09 AM Modules accepted: Orders INFRASTRUCTURE ARCHITECT documented in this encounter Plan of Treatment Not on filedocumented as of this encounter Procedures Procedure Name Priority Date/Time Associated Diagnosis Comme [facility] Z THERAPEUTIC Routine 04/15/2019 10:52 AM Lumbar pain ACTIVITIES LEAD INFRASTRUCTURE ARCHITECT documented in this encounter Visit Diagnoses Diagnosis Lumbar pain - Primary Lumbago documented in this encounter Care Teams Manager Cost Relationship Specialty Start Date End Date Idalmis Sloan PCP - General Family Practice 11/04/13 documented as of this encounter
--- OUTSIDE RECORDS SUMMARY | 2021-12-19 15:46 | XMS_ITS | Encounter Summary ---
:1950 Author Organization [place] Address [address] [place] [address] Care Team Providers Name Role Phone Idalmis [...] on filedocumented in this encounter Care Teams Site Lead Relationship Specialty Start Date End Date Idalmis Sloan PCP - General Family Practice 11/04/13 documented as of this encounter
--- OUTSIDE RECORDS SUMMARY | 2021-12-19 15:46 | XMS_ITS | Encounter Summary ---
:1950 Author Organization [place] Address [facility] [place] [address] Care Team Providers Name Role Phone Idalmis Sloan Primary Care Provider Reason for Visit KIMBER Physical Therapy (Routine) - Closed Specialty Diagnoses / Procedures Referred By Contact Refer red To Contact Physical Therapy Diagnoses >4, Back / Mercy Pedro @ [facility] Pain / BCBS Mercy Vasquez, BLOCKER AND POLISHER Daniel Shi, PT Procedures SPINE INITIAL [facility] PAIN [facility] [address] [place] [address] [place] [address] [place] [address] Referral ID Status Reason Start Date Expiration Date Visits Requ ested Visits Authorized [id number] Closed 07/22/2017 03/01/2018 20 18 Encounter Details Date Type Department Care Team Description 02/25/2018 Therapy Visit [facility] Jensen Hernandez, PT Hip pain, left Rehabilitation Services [address] MARYANA NELSON (Primary Dx) [id number] [place] [id number] [place] [address] 300 [place] [address] (Work) [phone] Social History Tobacco Use Types Packs/Day Years Used Date Smoking Tobacco: Never Smokeless Tobacco: Never Sex Assigned at Date Recorded Not on file documented as of this encounter Progress Notes Jensen Hernandez, PT - 02/25/2018 4:00 PM CST [facility] Initial Evaluation Subjective: History of left hip pain for years with increased symptoms 1 month ago secondary to OA. Pt referred by MD for physical therapy on 02-05-18 The history is provided by the patient. No speech/language therapist was used. Krys Mosher is a 67 [...] Right: Min loss+ Rotation: Left: Right: Side [place]: Left: Right: Strength: weak lower abdominals and [...] and time spent performing 1:1 timed codes. ER FILLER documented in this encounter Plan of Treatment Not on filedocumented as of this encounter Procedures Procedure Name Priority Date/Time Associated Diagnosis Comme [facility] ZZC THERAPEUTIC Routine 02/25/2018 5:05 PM GETTER FILLER Hip pain, left EXERCISES documented in this encounter Visit Diagnoses Diagnosis Hip pain, left - Primary Pain in joint, pelvic region and thigh documented in this encounter Care Teams Clinical Evaluator Relationship Specialty Start Date End Date Idalmis Sloan PCP - General Family Practice 11/04/13 documented as of this encounter
--- OUTSIDE RECORDS SUMMARY | 2021-12-19 15:46 | XMS_ITS | Encounter Summary ---
:1950 Author Organization [place] Address [address] [place] [address] Care Team Providers Name Role Phone Idalmis Sloan Primary Care Provider Encounter Details Date Type Department Care Team Description 11/22/2015 Therapy Visit [facility] Sandra Shelton, Sprain of left rotator cuff capsule, subsequent encounter (Primary Dx); Rehabilitation ATC Other postprocedural status(V45.89) Services [facility] Specialty Care [facility] [id number] [place] [id number] [place] [address] [address] [place] [address] [phone] Social History Tobacco Use Types Packs/Day Years Used Date Smoking Tobacco: Never Assessed Sex Assigned at Date Recorded Not on file documented as of this encounter Plan of Treatment Not on filedocumented as of this encounter Procedures Procedure Name Priority Date/Time Associated Diagnosis Comme nts [facility] NEUROMUSCULAR Routine 11/22/2015 4:54 PM Sprain of left ro tator RE-EDUCATION CDT cuff capsule, subsequent encounter Other postprocedural status(V45.89) [facility] THERAPEUTIC Routine 11/22/2015 4:54 PM Sprain of left rota tor EXERCISES CDT cuff capsule, subsequent encounter Other postprocedural status(V45.89) [facility] HOT OR COLD PACKS Routine 11/22/2015 4:54 PM Sprain of lef t rotator THERAPY CDT cuff capsule, subsequent encounter Other postprocedural status(V45.89) documented in this encounter Visit Diagnoses Diagnosis Sprain of left rotator cuff capsule, sub sequent encounter - Primary Other postprocedural status(V45.89) Other postprocedural status documented in this encounter Care Teams Lumber Stacker Driver Relationship Specialty Start Date End Date Idalmis Sloan PCP - General Family Practice 11/04/13 documented as of this encounter
--- OUTSIDE RECORDS SUMMARY | 2021-12-19 15:46 | XMS_ITS | Encounter Summary ---
:1950 Author Organization [place] Address [address] [facility] [place] [address] Care Team Providers Name Role Phone Idalmis Sloan Primary Care Provider Reason for Visit Reason Onset Date Comments Outreach 04/14/2017 UC FOLLOW UP - COMPL ETED Encounter Details Date Type Department Care Team Description 04/14/2017 Telephone [facility] Laith Oliver ( FOLLOW UP Urgent Care Lacy Craig MD - COMPLETED) [address] [facility] [address] [place], [place], [place] [id number] [phone] Social History Tobacco Use Types Packs/Day Years [...] others? YES Comments: Appointment scheduled? NO Location? R MANAGER documented in this encounter Plan of Treatment Not on filedocumented as of this encounter Visit Diagnoses Not on filedocumented in this encounter Care Teams Two Way Radio Technician Relationship Specialty Start Date End Date Idalmis Sloan PCP - General Family Practice 11/04/13 documented as of this encounter
--- OUTSIDE RECORDS SUMMARY | 2021-12-19 15:46 | XMS_ITS | Encounter Summary ---
:1950 Author Organization [place] Address [address] [place] [address] Care Team Providers Name Role Phone Idalmis Sloan Primary Care Provider Encounter Details Date Type Department Care Team Description 03/16/[address] [facility] Belén Alva, Lumbar pain (Primary Rehabilitation Services DIGITAL ASSOCIATE MEDIA DIRECTOR Dx) [facility] [address] [facility] [address] [place] [address] Social History Tobacco Use Types Packs/Day Years Used Date Smoking Tobacco: Never Smokeless Tobacco: Never Sex Assigned at Date Recorded Not on file documented as of this encounter Plan of Treatment Not on filedocumented as of this encounter Procedures Procedure Name Priority Date/Time Associated Diagnosis Comme nts Z THERAPEUTIC Routine 03/16/2019 4:32 PM LUMP MAKER Lumbar pain ACTIVITIES Z THERAPEUTIC Routine 03/16/2019 4:32 PM LUMP MAKER Lumbar pain EXERCISES documented in this encounter Visit Diagnoses Diagnosis Lumbar pain - Primary Lumbago documented in this encounter Care Teams Senior Java Software Engineer Relationship Specialty Start Date End Date Idalmis Sloan PCP - General Family Practice 11/04/13 documented as of this encounter
--- OUTSIDE RECORDS SUMMARY | 2021-12-19 15:46 | XMS_ITS | Encounter Summary ---
:1950 Author Organization [place] Address [facility] [place] [address] Care Team Providers Name Role Phone Idalmis Sloan Primary Care Provider Reason for Visit KIMBER Physical Therapy (Routine) - Closed Specialty Diagnoses / Procedures Referred By Contact Refer red To Contact Physical Therapy Diagnoses >4, Back / Mercy Pedro @ [facility] Pain / BCBS Mercy Vasquez, TECHNICAL ILLUSTRATOR Daniel Shi, PT Procedures SPINE INITIAL [facility] PAIN [facility] [address] [place] [address] [place] [address] [place] [address] Referral ID Status Reason Start Date Expiration Date Visits Requ ested Visits Authorized [id number] Closed 07/22/2017 03/01/2018 20 18 Encounter Details Date Type Department Care Team Description 08/14/2017 Therapy Visit [facility] Jensen Hernandez, PT Lumbago (Primary Dx) Rehabilitation Services [address] [place] [address] DR Bryant Specialty [address] [address] [address] [place] [address] (Work) [phone] Social History Tobacco Use Types Packs/Day Years [...] is being advanced to more complex exercises. ENGAGEMENT MGR/ATC plan: N/A Please refer to the daily [...] Priority Date/Time Associated Diagnosis Comme nts [facility] NEUROMUSCULAR Routine 08/14/2017 6:01 PM Lumbago RE-EDUCATION CDT [facility] THERAPEUTIC EXERCISES Routine 08/14/2017 6:01 PM Lumbago CDT documented in this encounter Visit Diagnoses Diagnosis Lumbago - Primary documented in this encounter Care Teams Information Resources Manager Relationship Specialty Start Date End Date Idalmis Sloan PCP - General Family Practice 11/04/13 documented as of this encounter
--- OUTSIDE RECORDS SUMMARY | 2021-12-19 15:46 | XMS_ITS | Encounter Summary ---
:1950 Author Organization [place] Address [address] [place] [address] Care Team Providers Name Role Phone Idalmis Sloan Primary Care Provider Encounter Details Date Type Department Care Team Description 11/16/[address] [facility] [place] Saeed, PT Cervical radiculitis (Primary Dx); [facility] Sprain of left rotator cuff capsule, sub sequent encounter; Services [place] [id number] [place] [address] Other postprocedural status(V45.89) Specialty Care Allen guzman DR [facility] [address] [address] [place], [place] [address] [address] [place] [address] [phone] Social History Tobacco Use Types Packs/Day Years Used Date Smoking Tobacco: Never Assessed Sex Assigned at Date Recorded Not on file documented as of this encounter Plan of Treatment Not on filedocumented as of this encounter Procedures Procedure Name Priority Date/Time Associated Diagnosis Comme [facility] Z THERAPEUTIC Routine 11/19/2015 7:32 AM Cervical radi culitis EXERCISES CDT Sprain of left rotator cuff capsule, subsequent encounter Other postprocedural status(V45.89) documented in this encounter Visit Diagnoses Diagnosis Cervical radiculitis - Primary Brachial neuritis or radiculitis nos Sprain of left rotator cuff capsule, sub sequent encounter Other postprocedural status(V45.89) Other postprocedural status documented in this encounter Care Teams Veterinary Science Teacher Relationship Specialty Start Date End Date Idalmis Sloan PCP - General Family Practice 11/04/13 documented as of this encounter
--- OUTSIDE RECORDS SUMMARY | 2021-12-19 15:46 | XMS_ITS | Encounter Summary ---
:1950 Author Organization [place] Address [address] [place] [address] Care Team Providers Name Role Phone Idalmis Sloan Primary Care Provider Encounter Details Date Type Department Care Team Description 03/23/2019 Therapy Visit [facility] [place], Lumbar pain (Primary Rehabilitation Services [address] STENOGRAPHER Dx) [facility] [address] [facility] [address] [place] [address] Social History Tobacco Use Types Packs/Day Years Used Date Smoking Tobacco: Never Smokeless Tobacco: Never Sex Assigned at Date Recorded Not on file documented as of this encounter Plan of Treatment Not on filedocumented as of this encounter Procedures Procedure Name Priority Date/Time Associated Diagnosis Comme nts Z THERAPEUTIC Routine 03/23/2019 3:35 PM PREPARING BOX TENDER Lumbar pain ACTIVITIES ZZ THERAPEUTIC Routine 03/23/2019 3:35 PM PREPARING BOX TENDER Lumbar pain EXERCISES documented in this encounter Visit Diagnoses Diagnosis Lumbar pain - Primary Lumbago documented in this encounter Care Teams Lasting Machine Operator Relationship Specialty Start Date End Date Idalmis Sloan PCP - General Family Practice 11/04/13 documented as of this encounter
--- OUTSIDE RECORDS SUMMARY | 2021-12-19 15:46 | XMS_ITS | Encounter Summary ---
:1950 Author Organization [place] Address [address] [place] [address] Care Team Providers Name Role Phone Idalmis Sloan Primary Care Provider Encounter Details Date Type Department Care Team Description 04/06/2019 [facility] Lum[facility] (Primary Rehabilitation Services [address] Dx) [address] [place] [address] [address] [address] [place] [address] (Work) [phone] Social History Tobacco Use Types Packs/Day Years Used Date Smoking Tobacco: Never Smokeless Tobacco: Never Sex Assigned at Date Recorded Not on file documented as of this encounter Plan of Treatment Not on filedocumented as of this encounter Procedures Procedure Name Priority Date/Time Associated Diagnosis Comme [facility] ZZ THERAPEUTIC Routine 04/06/2019 3:49 PM ASSOCIATE CHEMIST Lumbar pain EXERCISES documented in this encounter Visit Diagnoses Diagnosis Lumbar pain - Primary Lumbago documented in this encounter Care Teams Refractory Manager Relationship Specialty Start Date End Date Idalmis Sloan PCP - General Family Practice 11/04/13 documented as of this encounter
--- OUTSIDE RECORDS SUMMARY | 2021-12-19 15:46 | XMS_ITS | Encounter Summary ---
:1950 Author Organization [place] Address [facility] [place] [address] Care Team Providers Name Role Phone Idalmis [...] on filedocumented in this encounter Care Teams Color Straining Bag Washer Relationship Specialty Start Date End Date Idalmis Sloan PCP - General Family Practice 11/04/13 Ana Jacobs PA-C Assigned Neuroscience 11/04/20 12/01/20 [facility] Provider [address] [id number] documented as of this encounter
--- OUTSIDE RECORDS SUMMARY | 2021-12-19 15:46 | XMS_ITS | Encounter Summary ---
:1950 Author Organization [place] Address [address] [place] [address] Care Team Providers Name Role Phone Idalmis [...] on filedocumented in this encounter Care Teams Hide Sorter Relationship Specialty Start Date End Date Idalmis Sloan PCP - General Family Practice 11/04/13 documented as of this encounter
--- OUTSIDE RECORDS SUMMARY | 2021-12-19 15:47 | XMS_ITS | Encounter Summary ---
:1950 Author Organization [place] Address [address] [facility] [place] [address] Care Team Providers Name Role Phone Idalmis Sloan Primary Care Provider Encounter Details Date Type Department Care Team Description 11/09/2014 Therapy Visit [facility] Fidelia Chang pain Rehabilitation Services SHANAE Sweet (Primary Dx) [facility] [facility] [address] [place] [address] [facility] [address] [place] [id number] Social History Tobacco Use Types Packs/Day Years [...] from spouse. BETTER with rest, methocarbanol. 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 Objective: System Shoulder Evaluation: ROM: AROM: Flexion: [...] 10:13 AM Left shoulder pain EXERCISES CDT [facility] HOT OR COLD PACKS Routine 11/13/2014 10:13 AM Left shoulde r pain THERAPY CDT documented in this encounter Visit Diagnoses Diagnosis Left shoulder pain - Primary Pain in joint, shoulder region documented in this encounter Care Teams Elevator Erector Helper Relationship Specialty Start Date End Date Idalmis Sloan PCP - General Family Practice 11/04/13 documented as of this encounter
--- OUTSIDE RECORDS SUMMARY | 2021-12-19 15:47 | XMS_ITS | Encounter Summary ---
:1950 Author Organization [place] Address [address] [place] [address] Care Team Providers Name Role Phone Idalmis Sloan Primary Care Provider Ana Jacobs PA-C Unavailable Madhav Matute MD Unavailable Encounter Details Date Type Department Care Team Description 11/21/2014 External Order [facility] Outside, Provider Results Rehabilitation Services [facility] [address] [place] [address] [address] [place] [address] Social History Tobacco Use Types [...] documented as of this encounter Care Teams Side Piece Coverer Relationship Specialty Start Date End Date Idalmis Sloan Ann PCP - General Family Practice 11/04/13 Ana Jacobs PA-C Assigned Neuroscience 11/04/20 12/01/20 [facility] Provider [address] [id number] Madhav Matute MD Assigned Neuroscience 12/02/20 [address] [address] [id number] documented as of this encounter
--- OUTSIDE RECORDS SUMMARY | 2021-12-19 15:47 | XMS_ITS | Encounter Summary ---
:1950 Author Organization [place] Address [address] [place] [address]. [place] [address] Care Team Providers Name Role Phone Idalmis Sloan Primary Care Provider Reason for Visit KIMBER Physical Therapy (Routine) - Denied Specialty Diagnoses / Procedures Referred By Contact Refer red To Contact Physical Therapy Diagnoses >4 s/p L rot tiff / mehdi lorenzana @ ortho / BCBS 30 visits per year Mehdi Gaffney MD Judd, Laurie, PT Procedures EXT[facility] [id number] [place] [address] [address] [facility] [address] [place] [address] [place] [address] Fax: Referral ID Status Reason Start Date Expiration Date Visits V isits Requested Authorized KIMBER/WC/PT/L Denied 06/11/2015 06/10/2016 14 0 SHLDR POST [id number] Encounter Details Date Type Department Care Team Description 08/21/2015 [facility] Sprain of left rotator cuff capsule, sub sequent encounter (Primary Dx); [facility] Other postprocedural status(V45.89) Services [facility] [id number] [place] [address] Specialty Care Allen [address] [address] [place], [place] [address] [address] [place] [address] Social History Tobacco Use Types Packs/Day Years Used Date Smoking Tobacco: Never Assessed Sex Assigned at Date Recorded Not on file documented as of this encounter Plan of Treatment Not on filedocumented as of this encounter Procedures Procedure Name Priority Date/Time Associated Diagnosis Comme nts [facility] NEUROMUSCULAR Routine 08/21/2015 3:47 PM Sprain of left ro tator RE-EDUCATION CDT cuff capsule, subsequent encounter Other postprocedural status(V45.89) [facility] THERAPEUTIC Routine 08/21/2015 3:47 PM Sprain of left rota tor EXERCISES CDT cuff capsule, subsequent encounter Other postprocedural status(V45.89) documented in this encounter Visit Diagnoses Diagnosis Sprain of left rotator cuff capsule, sub sequent encounter - Primary Other postprocedural status(V45.89) Other postprocedural status documented in this encounter Care Teams Supervisor Poultry Processing Relationship Specialty Start Date End Date Idalmis Sloan PCP - General Family Practice 11/04/13 documented as of this encounter
--- OUTSIDE RECORDS SUMMARY | 2021-12-19 15:47 | XMS_ITS | Encounter Summary ---
:1950 Author Organization [place] Address [address] [place] [address]. [place] [address] Care Team Providers Name Role Phone Idalmis Sloan Primary Care Provider Reason for Visit KIMBER Physical Therapy (Routine) - Denied Specialty Diagnoses / Procedures Referred By Contact Refer red To Contact Physical Therapy Diagnoses >4 s/p L rot tiff / mehdi lorenzana @ ortho / BCBS 30 visits per year Mehdi Gaffney MD Judd, Laurie, PT Procedures EXTREMITY IN[facility]IAL [facility] AND [facility] [id number] [place] [address] [address] [place] [address] [place] [address] Fax: Referral ID Status Reason Start Date Expiration Date Visits V isits Requested Authorized KIMBER/WC/PT/L Denied 06/11/2015 06/10/2016 14 0 SHLDR POST [id number] Encounter Details Date Type Department Care Team Description 06/21/2015 [facility] Sprain of left rotator cuff capsule, subsequent encounter (Primary Dx); Rehabilitation Services CORRINA Melissa Otnatacha r postprocedural status(V45.89) [facility] Care [place] [address] [facility] [address] [place] [address] Social History Tobacco Use [...] Name Priority Date/Time Associated Diagnosis Comme nts [facility] THERAPEUTIC Routine 06/22/2015 10:17 AM Sprain of left rot ator EXERCISES CDT cuff capsule, subsequent encounter Other postprocedural status(V45.89) [facility] HOT OR COLD PACKS Routine 06/22/2015 10:17 AM Sprain of le ft rotator THERAPY CDT cuff capsule, subsequent encounter Other postprocedural status(V45.89) documented in this encounter Visit Diagnoses Diagnosis Sprain of left rotator cuff capsule, sub sequent encounter - Primary Other postprocedural status(V45.89) Other postprocedural status documented in this encounter Care Teams Voip Technician Relationship Specialty Start Date End Date Idalmis Sloan PCP - General Family Practice 11/04/13 documented as of this encounter
--- OUTSIDE RECORDS SUMMARY | 2021-12-19 15:47 | XMS_ITS | Encounter Summary ---
:1950 Author Organization [place] Address [address] [place] [address]. [place] [address] Care Team Providers Name Role Phone Idalmis Sloan Primary Care Provider Reason for Visit KIMBER Physical Therapy (Routine) - Denied Specialty Diagnoses / Procedures Referred By Contact Refer red To Contact Physical Therapy Diagnoses >4 s/p L rot tiff / mehdi lorenzana @ ortho / BCBS 30 visits per year Mehdi Gaffney MD Judd, Laurie, PT Procedures EXTREMITY INITIAL [facility] AND [facility] [id number] [place] [address] [address] [place] [address] [place] [address] Fax: Referral ID Status Reason Start Date Expiration Date Visits V isits Requested Authorized KIMBER/WC/PT/L Denied 06/11/2015 06/10/2016 14 0 SHLDR POST [id number] Encounter Details Date Type Department Care Team Description 08/07/2015 Therapy Visit [facility] Artie, Sprain of left rotator cuff capsule, subsequent encounter (Primary Dx); Rehabilitation Services CORRINA Melissa r postprocedural status(V45.89) [facility] Care [place] [address] [facility] [address] [place] [address] Social [...] [facility] HOT OR COLD PACKS Routine 08/09/2015 1:35 [...] status documented in this encounter Care Teams Billiard Player Relationship Specialty Start Date End Date Idalmis Sloan PCP - General Family Practice 11/04/13 documented as of this encounter
--- OUTSIDE RECORDS SUMMARY | 2021-12-19 15:47 | XMS_ITS | Encounter Summary ---
:1950 Author Organization [place] Address [address] [place] [address]. [place] [address] Care Team Providers Name Role Phone Idalmis Sloan Primary Care Provider Reason for Visit KIMBER Physical Therapy (Routine) - Denied Specialty Diagnoses / Procedures Referred By Contact Refer red To Contact Physical Therapy Diagnoses >4 s/p L rot tiff / mehdi lorenzana @ ortho / BCBS 30 visits per year Mehdi Gaffney MD Judd, Laurie, PT Procedures EXTREMITY INITIAL ORTHOPAEDIC AND KIMBER [facility] [id number] [place] [address] DR BEGUM [address] [place] [address] [place] [address] Fax: Referral ID Status Reason Start Date Expiration Date Visits V isits Requested Authorized KIMBER/WC/PT/L Denied 06/11/2015 06/10/2016 14 0 SHLDR POST [id number] Encounter Details Date Type Department Care Team Description 06/14/2015 Therapy Visit [facility] Artie, Sprain of left rotator cuff capsule, subsequent encounter (Primary Dx); Rehabilitation Services CORRINA Melissa postprocedural status(V45.89) [facility] Care [place] [address] [facility] [address] [place] [address] Social History Tobacco Use Types Packs/Day Years Used Date Smoking Tobacco: Never Assessed Sex Assigned at Date Recorded Not on file documented as of this encounter Plan of Treatment Not on filedocumented as of this encounter Procedures Procedure Name Priority Date/Time Associated Diagnosis Comme [facility] THERAPEUTIC Routine 06/15/2015 6:45 AM Sprain [...] status documented in this encounter Care Teams Social Work Manager Relationship Specialty Start Date End Date Idalmis Sloan PCP - General Family Practice 11/04/13 documented as of this encounter
--- OUTSIDE RECORDS SUMMARY | 2021-12-19 15:47 | XMS_ITS | Encounter Summary ---
:1950 Author Organization [place] Address [address] [place] [address]. [place] [address] Care Team Providers Name Role Phone Idalmis Sloan Primary Care Provider Reason for Visit KIMBER Physical Therapy (Routine) - Denied Specialty Diagnoses / Procedures Referred By Contact Refer red To Contact Physical Therapy Diagnoses >4 s/p L rot tiff / mehdi lorenzana @ ortho / BCBS 30 visits per year Mehdi Gaffney MD Judd, Laurie, PT Procedures EXTREMITY INITIAL ORTHOPAEDIC AND KIMBER [facility] [id number] [place] [address] [address] BEGUM [address] [facility] [address] [place] [address] [place] [address] Fax: Referral ID Status Reason Start Date Expiration Date Visits V isits Requested Authorized KIMBER/WC/PT/L Denied 06/11/2015 06/10/2016 14 0 SHLDR POST [id number] Encounter Details Date Type Department Care Team Description 06/11/2015 Therapy Visit [facility] [place] Wheeler, PT Sprain of left rotator cuff capsule (Apoorva womack Dx); [facility] Other postprocedural status(V45.89) Services [place] [id number] [place] [address] Specialty Care [place] BEGUM [address] [address] [place], [place] [address] [address] [place] [address] Social History Tobacco Use Types [...] Sheet for this information) Short term and shelter goals: (See Goal Flow Sheet for this [...] status documented in this encounter Care Teams Radiology Interventional Physician Relationship Specialty Start Date End Date Idalmis Sloan PCP - General Family Practice 11/04/13 documented as of this encounter
--- OUTSIDE RECORDS SUMMARY | 2021-12-19 15:47 | XMS_ITS | Encounter Summary ---
:1950 Author Organization [place] Address [facility] [place] [address] Care Team Providers Name Role Phone Idalmis Sloan Primary Care Provider Encounter Details Date Type Department Care Team Description 08/24/2014 Therapy Visit [facility] Belén Alva, [facility] low back pain Rehabilitation Services GEOGRAPHY DEPARTMENT CHAIR with right-sided [facility] ([facility] Center [address] [facility] [address] [place] [address] Social History Tobacco Use Types Packs/Day Years Used Date Smoking Tobacco: Never Assessed Sex Assigned at Date Recorded Not on file documented as of this encounter Progress Notes Belén [place], GEOGRAPHY DEPARTMENT CHAIR - 09/20/2014 12:54 PM CDT Subjective: HPI [...] Primary documented in this encounter Care Teams Supervisor Cd Area Relationship Specialty Start Date End Date Idalmis Sloan PCP - General Family Practice 11/04/13 documented as of this encounter
--- OUTSIDE RECORDS SUMMARY | 2021-12-19 15:47 | XMS_ITS | Encounter Summary ---
:1950 Author Organization [place] Address [address] [place] [address]. [place] [address] Care Team Providers Name Role Phone Idalmis Sloan Primary Care Provider Reason for Visit KIMBER Physical Therapy (Routine) - Denied Specialty Diagnoses / Procedures Referred By Contact Refer red To Contact Physical Therapy Diagnoses >4 s/p L rot tiff / mehdi lorenzana @ ortho / BCBS 30 visits per year Mehdi Gaffney MD Judd, Laurie, PT Procedures EXTREMITY INITIAL ORTHOPAEDIC AND KIMBER [facility] [id number] [place] [address] [address] BEGUM [address] [facility] [address] [place] [address] [place] [address] Fax: Referral ID Status Reason Start Date Expiration Date Visits V isits Requested Authorized KIMBER/WC/PT/L Denied 06/11/2015 06/10/2016 14 0 SHLDR POST [id number] Encounter Details Date Type Department Care Team Description 08/09[facility]2015 [facility] Sprain of left rotator cuff capsule, sub sequent encounter (Primary Dx); [facility] Other postprocedural status(V45.89) Services [place] [id number] [place] [address] Specialty Care [place] BEGUM [address] [address] [place], [place] [address] [address] [place] [address] Social History Tobacco Use Types Packs/Day Years Used Date Smoking Tobacco: Never Assessed Sex Assigned at Date Recorded Not on file documented as of this encounter Plan of Treatment Not on filedocumented as of this encounter Procedures Procedure Name Priority Date/Time Associated Diagnosis Comme nts [facility] NEUROMUSCULAR Routine 08/10/2015 10:23 AM Sprain of left r otator RE-EDUCATION CDT cuff capsule, subsequent encounter Other postprocedural status(V45.89) [facility] THERAPEUTIC Routine 08/10/2015 10:23 AM Sprain of left rot ator EXERCISES CDT cuff capsule, subsequent encounter Other postprocedural status(V45.89) documented in this encounter Visit Diagnoses Diagnosis Sprain of left rotator cuff capsule, sub sequent encounter - Primary Other postprocedural status(V45.89) Other postprocedural status documented in this encounter Care Teams Sap Developer Relationship Specialty Start Date End Date Idalmis Sloan PCP - General Family Practice 11/04/13 documented as of this encounter
--- OUTSIDE RECORDS SUMMARY | 2021-12-19 15:47 | XMS_ITS | Encounter Summary ---
:1950 Author Organization [place] Address [address] [place] [address]. [place] [address] Care Team Providers Name Role Phone Idalmis Sloan Primary Care Provider Reason for Visit KIMBER Physical Therapy (Routine) - Denied Specialty Diagnoses / Procedures Referred By Contact Refer red To Contact Physical Therapy Diagnoses >4 s/p L rot tiff / mehdi lorenzana @ ortho / BCBS 30 visits per year Mehdi Gaffney MD Judd, Laurie, PT Procedures EXTREMITY INITIAL ORTHOPAEDIC AND [facility] [id number] [place] [address] DR BEGUM [address] [facility] [address] [place] [address] [place] [address] Fax: Referral ID Status Reason Start Date Expiration Date Visits V isits Requested Authorized KIMBER/WC/PT/L Denied 06/11/2015 06/10/2016 14 0 SHLDR POST [id number] Encounter Details Date Type Department Care Team Description 08/01/2015 [facility] Sprain of left rotator cuff capsule, sub sequent encounter (Primary Dx); [facility] Other postprocedural status(V45.89) Services [place] [id number] [place] [address] Specialty Care [place] BEGUM [address] [address] [place], [place] [address] [address] [place] [address] Social History Tobacco Use Types Packs/Day Years Used Date Smoking Tobacco: Never Assessed Sex Assigned at Date Recorded Not on file documented as of this encounter Plan of Treatment Not on filedocumented as of this encounter Procedures Procedure Name Priority Date/Time Associated Diagnosis Comme nts [facility] NEUROMUSCULAR Routine 08/02/2015 7:18 AM Sprain of left ro tator RE-EDUCATION CDT cuff capsule, subsequent encounter Other postprocedural status(V45.89) [facility] THERAPEUTIC Routine 08/02/2015 7:18 AM Sprain of left rota tor EXERCISES CDT cuff capsule, subsequent encounter Other postprocedural status(V45.89) documented in this encounter Visit Diagnoses Diagnosis Sprain of left rotator cuff capsule, sub sequent encounter - Primary Other postprocedural status(V45.89) Other postprocedural status documented in this encounter Care Teams Web Marketing Strategist Relationship Specialty Start Date End Date Idalmis Sloan PCP - General Family Practice 11/04/13 documented as of this encounter
--- OUTSIDE RECORDS SUMMARY | 2021-12-19 15:47 | XMS_ITS | Encounter Summary ---
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
--- OUTSIDE RECORDS SUMMARY | 2021-12-19 15:47 | XMS_ITS | Encounter Summary ---
:1950 Author Organization [place] Address [address] [facility] [place] [address] Care Team Providers Name Role Phone Idalmis Sloan Primary Care Provider Encounter Details Date Type Department Care Team Description 06/03/2015 Telephone [facility] Nurse Sabiha Shelton , RN [facility] [address] [place] [address] Social History Tobacco Use Types Packs/Day [...] bone; or pure bloody urine ? NO [place] something pass with urination ? NO Unbearable [...] on filedocumented in this encounter Care Teams Follow Up Manager Relationship Specialty Start Date End Date Idalmis Sloan PCP - General Family Practice 11/04/13 documented as of this encounter
--- OUTSIDE RECORDS SUMMARY | 2021-12-19 15:47 | XMS_ITS | Encounter Summary ---
:1950 Author Organization [place] Address [address] [place] [address]. [place] [address] Care Team Providers Name Role Phone Idalmis Sloan Primary Care Provider Reason for Visit KIMBER Physical Therapy (Routine) - Denied Specialty Diagnoses / Procedures Referred By Contact Refer red To Contact Physical Therapy Diagnoses >4 s/p L rot tiff / mehdi lorenzana @ ortho / BCBS 30 visits per year Mehdi Gaffney MD Judd, Laurie, PT Procedures EXTREMITY INITIAL ORTHOPAEDIC AND K[facility]BER [facility] [id number] [place] [address] [address] BEGUM [address] [facility] [address] [place] [address] [place] [address] Fax: Referral ID Status Reason Start Date Expiration Date Visits V isits Requested Authorized KIMBER/WC/PT/L Denied 06/11/2015 06/10/2016 14 0 SHLDR POST [id number] Encounter Details Date Type Department Care Team Description 07/03/2015 [facility] Sprain of left rotator cuff capsule, sub sequent encounter (Primary Dx); [facility] Other postprocedural status(V45.89) Services [place] [id number] [place] [address] Specialty Care [place] BEGUM 300 [address] [place], [place] [address] [address] [place] [address] Social History Tobacco Use Types Packs/Day Years Used Date Smoking Tobacco: Never Assessed Sex Assigned at Date Recorded Not on file documented as of this encounter Plan of Treatment Not on filedocumented as of this encounter Procedures Procedure Name Priority Date/Time Associated Diagnosis Comme nts [facility] NEUROMUSCULAR Routine 07/04/2015 2:00 PM Sprain of left ro tator RE-EDUCATION CDT cuff capsule, subsequent encounter Other postprocedural status(V45.89) [facility] THERAPEUTIC Routine 07/04/2015 2:00 PM Sprain of left rota tor EXERCISES CDT cuff capsule, subsequent encounter Other postprocedural status(V45.89) documented in this encounter Visit Diagnoses Diagnosis Sprain of left rotator cuff capsule, sub sequent encounter - Primary Other postprocedural status(V45.89) Other postprocedural status documented in this encounter Care Teams Steel Rigger Relationship Specialty Start Date End Date Idalmis Sloan PCP - General Family Practice 11/04/13 documented as of this encounter
--- OUTSIDE RECORDS SUMMARY | 2021-12-19 15:47 | XMS_ITS | Encounter Summary ---
:1950 Author Organization [place] Address [address] [facility] [place] [address] Care Team Providers Name Role Phone Shanta Sloan Primary Care Provider Encounter Details Date Type Department Care Team Description 11/22/2014 Therapy Visit [facility] Belén [place], Fidelia dontrell pain Rehabilitation Services PATTERN SETTER (Apoorva shanta Dx) [facility] [address] [facility] [address] [place] [address] Social History Tobacco Use Types [...] and time spent performing 1:1 timed codes. UCTION GRAPHIC DESIGNER documented in this encounter Miscellaneous Notes Addendum Note - Micki Chang, PT - 01/30/2015 3:46 PM PRODUCTION GRAPHIC DESIGNER Addended by: MICKI CHANG on: 01/30/2015 03:46 PM Modules accepted: Orders UCTION GRAPHIC DESIGNER documented in this encounter Plan of Treatment [...] region documented in this encounter Care Teams Art Therapy Certified Supervisor Relationship Specialty Start Date End Date Shanta Sloan PCP - General Family Practice 11/04/13 documented as of this encounter
--- OUTSIDE RECORDS SUMMARY | 2021-12-19 15:47 | XMS_ITS | Encounter Summary ---
:1950 Author Organization [place] Address [address] [place] [address]. [place] [address] Care Team Providers Name Role Phone Idalmis Sloan Primary Care Provider Reason for Visit KIMBER Physical Therapy (Routine) - Denied Specialty Diagnoses / Procedures Referred By Contact Refer red To Contact Physical Therapy Diagnoses >4 s/p L rot tiff / mehdi lorenzana @ ortho / BCBS 30 visits per year Mehdi Gaffney MD Judd, Laurie, PT Procedures EXTREMITY INITIAL ORTHOPAEDIC AND K[facility]BER [facility] [id number] [place] [address] DR BEGUM [address] [place] [address] [place] [address] Fax: Referral ID Status Reason Start Date Expiration Date Visits V isits Requested Authorized KIMBER/WC/PT/L Denied 06/11/2015 06/10/2016 14 0 SHLDR POST [id number] Encounter Details Date Type Department Care Team Description 08/03/2015 [facility], Sprain of left rotator cuff capsule, subsequent encounter (Primary Dx); Rehabilitation Services CORRINA Melissa r postprocedural status(V45.89) [facility] Care [place] [address] [facility] [address] [place] [address] Social History Tobacco Use Types [...] cuff capsule, subsequent encounter Other postprocedural status(V45.89) [facility] NEUROMUSCULAR Routine 08/03/2015 10:32 AM Sprain of left r otator RE-EDUCATION CDT cuff capsule, subsequent encounter Other postprocedural status(V45.89) [facility] THERAPEUTIC Routine 08/03/2015 10:32 AM Sprain of left rot ator EXERCISES CDT cuff capsule, subsequent encounter Other postprocedural status(V45.89) documented in this encounter Visit Diagnoses Diagnosis Sprain of left rotator cuff capsule, sub sequent encounter - Primary Other postprocedural status(V45.89) Other postprocedural status documented in this encounter Care Teams Production Tech Relationship Specialty Start Date End Date Idalmis Sloan PCP - General Family Practice 11/04/13 documented as of this encounter
--- OUTSIDE RECORDS SUMMARY | 2021-12-19 15:47 | XMS_ITS | Encounter Summary ---
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 [employer] Strength (lb) Sensory Deficit, Reflexes, Dural Signs: [...] Sheet for this information) Short term and extermination inspector goals: (See Goal Flow Sheet for this [...] Associated Diagnosis Comme nts [facility] MANUAL THER Routine 10/02/2015 4:55 PM CDT Cervical radicu litis TECH,1+REGIONS,EA 15 MIN [facility] THERAPEUTIC Routine 10/02/2015 4:55 PM CDT Cervical radicu litis EXERCISES documented in this encounter Visit Diagnoses Diagnosis Cervical radiculitis - Primary Brachial neuritis or radiculitis nos documented in this encounter Care Teams Outreach Librarian Relationship Specialty Start Date End Date Idalmis Sloan PCP - General Family Practice 11/04/13 documented as of this encounter
--- OUTSIDE RECORDS SUMMARY | 2021-12-19 15:47 | XMS_ITS | Encounter Summary ---
:1950 Author Organization [place] Address [address] [place] [address] Care Team Providers Name Role Phone Idalmis Sloan Primary Care Provider Encounter Details Date Type Department Care Team Description 09/05/2015 Therapy Visit [facility] [place] Saeed, SHANAE Sprain of left rotator cuff capsule, sub sequent encounter (Primary Dx); Rehabilitation [facility] Other postprocedural status(V45.89) Services [address] Specialty Care Allen guzman DR [facility] [address] [address] [place], [place] [address] [address] [place] [address] [phone] Social History Tobacco Use Types Packs/Day Years Used Date Smoking Tobacco: Never Assessed Sex Assigned at Date Recorded Not on file documented as of this encounter Plan of Treatment Not on filedocumented as of this encounter Procedures Procedure Name Priority Date/Time Associated Diagnosis Comme nts [facility] NEUROMUSCULAR Routine 09/05/2015 3:16 PM Sprain of left ro tator RE-EDUCATION CDT cuff capsule, subsequent encounter Other postprocedural status(V45.89) [facility] THERAPEUTIC Routine 09/05/2015 3:16 PM Sprain of left rota tor EXERCISES CDT cuff capsule, subsequent encounter Other postprocedural status(V45.89) documented in this encounter Visit Diagnoses Diagnosis Sprain of left rotator cuff capsule, sub sequent encounter - Primary Other postprocedural status(V45.89) Other postprocedural status documented in this encounter Care Teams Inbound Customer Service Agent Relationship Specialty Start Date End Date Idalmis Sloan PCP - General Family Practice 11/04/13 documented as of this encounter
--- OUTSIDE RECORDS SUMMARY | 2021-12-19 15:47 | XMS_ITS | Encounter Summary ---
:1950 Author Organization [place] Address [address] [place] [address]. [place] [address] Care Team Providers Name Role Phone Idalmis Sloan Primary Care Provider Reason for Visit KIMBER Physical Therapy (Routine) - Denied Specialty Diagnoses / Procedures Referred By Contact Refer red To Contact Physical Therapy Diagnoses >4 s/p L rot tiff / mehdi lorenzana @ ortho / BCBS 30 visits per year Mehdi Gaffney MD Judd, Laurie, PT Procedures EXTREMITY INITIAL ORTHOPAEDIC AND [facility]BER [facility] [id number] [place] [address] [address]UM [address] [place] [address] [place] [address] Fax: Referral ID Status Reason Start Date Expiration Date Visits V isits Requested Authorized KIMBER/WC/PT/L Denied 06/11/2015 06/10/2016 14 0 SHLDR POST [id number] Encounter Details Date Type Department Care Team Description 07/10/2015 [facility], Sprain of left rotator cuff capsule, subsequent encounter (Primary Dx); Rehabilitation Services CORRINA Melissa r postprocedural status(V45.89) [facility] Care [place] [address] [facility] [address] [place] [address] Social History Tobacco Use Types [...] capsule, subsequent encounter Other postprocedural status(V45.89) [facility] THERAPEUTIC Routine 07/11/2015 7:11 AM Sprain of left rota tor EXERCISES CDT cuff capsule, subsequent encounter Other postprocedural status(V45.89) documented in this encounter Visit Diagnoses Diagnosis Sprain of left rotator cuff capsule, sub sequent encounter - Primary Other postprocedural status(V45.89) Other postprocedural status documented in this encounter Care Teams Correctional Program Officer Relationship Specialty Start Date End Date Idalmis Sloan PCP - General Family Practice 11/04/13 documented as of this encounter
--- OUTSIDE RECORDS SUMMARY | 2021-12-19 15:47 | XMS_ITS | Encounter Summary ---
:1950 Author Organization [place] Address [address] [place] [address]. [place] [address] Care Team Providers Name Role Phone Idalmis Sloan Primary Care Provider Reason for Visit KIMBER Physical Therapy (Routine) - Denied Specialty Diagnoses / Procedures Referred By Contact Refer red To Contact Physical Therapy Diagnoses >4 s/p L rot tiff / mehdi lorenzana @ ortho / BCBS 30 visits per year Mehdi Gaffney MD Judd, Laurie, PT Procedures EXTREMITY INITIAL ORTHOPAEDIC AND [facility]IMEBR [facility] [id number] [place] [address] [address] BE[address]UM [address] [facility] [address] [place] [address] [place] [address] Fax: Referral ID Status Reason Start Date Expiration Date Visits V isits Requested Authorized KIMBER/WC/PT/L Denied 06/11/2015 06/10/2016 14 0 SHLDR POST [id number] Encounter Details Date Type Department Care Team Description 08/16/2015 [facility] Sprain of left rotator cuff capsule, sub sequent encounter (Primary Dx); [facility] Other postprocedural status(V45.89) Services [place] [id number] [place] [address] Specialty Care Allen BE[address]UM [address] [address] [place], [place] [address] [address] [place] [address] Social History Tobacco Use Types Packs/Day Years Used Date Smoking Tobacco: Never Assessed Sex Assigned at Date Recorded Not on file documented as of this encounter Plan of Treatment Not on filedocumented as of this encounter Procedures Procedure Name Priority Date/Time Associated Diagnosis Comme nts [facility] NEUROMUSCULAR Routine 08/16/2015 5:04 PM Sprain of left ro tator RE-EDUCATION CDT cuff capsule, subsequent encounter Other postprocedural status(V45.89) [facility] THERAPEUTIC Routine 08/16/2015 5:04 PM Sprain of left rota tor EXERCISES CDT cuff capsule, subsequent encounter Other postprocedural status(V45.89) documented in this encounter Visit Diagnoses Diagnosis Sprain of left rotator cuff capsule, sub sequent encounter - Primary Other postprocedural status(V45.89) Other postprocedural status documented in this encounter Care Teams Art Objects Salesperson Relationship Specialty Start Date End Date Idalmis Sloan PCP - General Family Practice 11/04/13 documented as of this encounter
--- OUTSIDE RECORDS SUMMARY | 2021-12-19 15:47 | XMS_ITS | Encounter Summary ---
:1950 Author Organization [place] Address [address] [place] [address]. [place] [address] Care Team Providers Name Role Phone Idalmis Sloan Primary Care Provider Reason for Visit [facility] Physical Therapy (Routine) - Denied Specialty Diagnoses / Procedures Referred By Contact Refer red To Contact Physical Therapy Diagnoses >4 s/p L rot tiff / mehdi lorenzana @ ortho / [employer]BS 30 visits per year Mehdi Gaffney MD Judd, Laurie, PT Procedures EXTREMITY INITIAL ORTHOPAEDIC AND [facility] [id number] [place] [address] DR BEGUM [address] [place] [address] [place] [address] Fax: Referral ID Status Reason Start Date Expiration Date Visits V isits Requested Authorized KIMBER/WC/PT/L Denied 06/11/2015 06/10/2016 14 0 SHLDR POST [id number] Encounter Details Date Type Department Care Team Description 06/27/2015 Therapy Visit [facility] Artie, Sprain of left rotator cuff capsule, subsequent encounter (Primary Dx); Rehabilitation Services CORRINA Melissa postprocedural status(V45.89) [facility] Care Marine [address] [facility] [address] [place] [address] Social History Tobacco Use Types [...] status documented in this encounter Care Teams Store Group Manager Relationship Specialty Start Date End Date Idalmis Sloan PCP - General Family Practice 11/04/13 documented as of this encounter
--- OUTSIDE RECORDS SUMMARY | 2021-12-19 15:47 | XMS_ITS | Encounter Summary ---
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
--- OUTSIDE RECORDS SUMMARY | 2021-12-19 15:47 | XMS_ITS | Encounter Summary ---
:1950 Author Organization [place] Address [facility] [place] [address] Care Team Providers Name Role Phone Idalmis Sloan Primary Care Provider Encounter Details Date Type Department Care Team Description 11/12/2015 Therapy Visit [facility] [place] Saeed, PT Other postprocedural status(V45.89); Rehabilitation [facility] Sprain of left rotator cuff capsule, sub sequent encounter Services [place] [id number] [place] [address] [address] [address] [place], [place] [address] [address] [place] [address] [phone] Social History Tobacco Use Types Packs/Day Years [...] abd), MMT: L ER=3-/5, flex=3-/5, Abd=3-/5, PROM: pitt=171, joint creptation noted with painful movement, Zow=000, ER=45 ASSESSMENT/PLAN Updated problem list and treatment [...] nts [facility] NEUROMUSCULAR Routine 11/12/2015 3:40 PM Other postprocedu ral RE-EDUCATION CDT status(V45.89) Sprain of left rotator cuff capsule, subsequent encounter [facility] THERAPEUTIC Routine 11/12/2015 3:40 PM Other postprocedura l EXERCISES CDT status(V45.89) Sprain of left rotator cuff capsule, subsequent encounter documented in this encounter Visit Diagnoses Diagnosis Other postprocedural status(V45.89) Other postprocedural status Sprain of left rotator cuff capsule, sub sequent encounter documented in this encounter Care Teams Sqe Relationship Specialty Start Date End Date Idalmis Sloan PCP - General Family Practice 11/04/13 documented as of this encounter
--- OUTSIDE RECORDS SUMMARY | 2021-12-19 15:47 | XMS_ITS | Encounter Summary ---
:1950 Author Organization [place] Address [facility] [place] [address] Care Team Providers Name Role Phone Idalmis Sloan Primary Care Provider Encounter Details Date Type Department Care Team Description 07/25/2014 Therapy Visit [facility] [place], Midline low back pain Rehabilitation Services ALUM MIXER with right-sided [place] [facility] sc iatica (Primary Dx) Center [address] [facility] [address] [place] [address] Social History Tobacco Use Types [...] Primary documented in this encounter Care Teams Turkey Cleaner Relationship Specialty Start Date End Date Idalmis Sloan PCP - General Family Practice 11/04/13 documented as of this encounter
--- OUTSIDE RECORDS SUMMARY | 2021-12-19 15:47 | XMS_ITS | Encounter Summary ---
:1950 Author Organization [place] Address [address] [place] [address] Care Team Providers Name Role Phone Idalmis Sloan Primary Care Provider Encounter Details Date Type Department Care Team Description 10/02/[address] [facility] Nu rse Advisors Madelin Brown, RN [address] [place] [address] Social History Tobacco Use Types Packs/Day [...] on filedocumented in this encounter Care Teams Humanities Instructor Relationship Specialty Start Date End Date Idalmis Sloan PCP - General Family Practice 11/04/13 documented as of this encounter
--- OUTSIDE RECORDS SUMMARY | 2021-12-19 15:47 | XMS_ITS | Encounter Summary ---
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
--- OUTSIDE RECORDS SUMMARY | 2021-12-19 15:48 | XMS_ITS | Encounter Summary ---
:1950 Author Organization [place] Address [address] [place], [place] [address] Care Team Providers Name Role Phone Unavailable [...] Waleska Alcaraz - 01/16/2012 7:49 PM CST [facility] Triage Call Report Patient Name: Krys Mosher Call Date & Time: 07/18/2011 8:05:57PM Patient PCP Name: Idalmis Sloan MRN: Patient Address: [address] [place] [address] Patient Date of : 1950 Age: 61 yr. 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 Red, painful, swollen. Went to a foot doctor amonth ago who shaved off a callus and a few days ago little right toe started getting red; now looks infected she states. Refuses ER due to high deductible and insurance problems; and wants to see if MD regional commercial sales manager would call in an ABX. Is allergic to : cipro possibly; sulfa and augmentin. Can take Keflex and levoquin she states. I called Dr. Chacon and he allowed me to call in an Rx Keflex po 500mg TID x7days. I called this into [facility] in [place]. This note will be faxed to Mathias office; please ATTN: Dr. Sloan. Triage Note: [...] Procedure Note: .Other right foot surgery 2006 D MERCHANDISER documented in this encounter Plan of Treatment Not on filedocumented as of this encounter Visit Diagnoses Not on filedocumented in this encounter
--- OUTSIDE RECORDS SUMMARY | 2021-12-19 15:48 | XMS_ITS | Encounter Summary ---
:1950 Author Organization [place] Address [address] [place] [address] Care Team Providers Name Role Phone Unavailable Primary Care Provider Unavailable Encounter Details Date Type Department Care Team Description 08/21/2010 Results Only [facility] Jose Comer, Hospital Results [facility] [address] [place] [address] (Wo rk) Social History Tobacco [...]
--- OUTSIDE RECORDS SUMMARY | 2021-12-19 15:48 | XMS_ITS | Encounter Summary ---
:1950 Author Organization [place] Address [facility] [place] [address] Care Team Providers Name Role Phone Unavailable Primary Care Provider Unavailable Encounter Details Date Type Department Care Team Description 08/21/2010 Consultation [facility] Idalmis Schwab, Hospital Results RN [facility] [address] [place], [place] [address] (Wo rk) Social History [...] same nurse practitioner, Sherry Arambula of the [facility]. It does not appear [...] a pain clinic and that would be [facility] that is located in [place]. 3. Esophageal reflux. 4. Tobacco use. 5. [...] 100 mg b.i.d. She is on a FEATURE WRITER Dilaudid. She can have 0.1-0.2 q.6minutes with a continuous rate of 0.1-0.2 for an hour limit of 1.5. She has not taken any other medswhile here. REVIEW OF SYSTEMS: Please see the [facility] adult patient profile done by Amanda Cardoso [...] but does have pain meds ordered per FEATURE WRITER. Patient having somatosensory-type of inflammatory pain postop. PLAN: 1. We will leave FEATURE WRITER as it was written for. Patient is [...] CARROLL Name: KRYS MOSHER MRN: [id number] Account: [id number] : 1950 Consult Date: 08/21/2010 Document: [id number] cc: SAIMA MCHUGH PA-C documented in this encounter Plan of Treatment Not on filedocumented as of this encounter Visit Diagnoses Not on filedocumented in this encounter
--- OUTSIDE RECORDS SUMMARY | 2021-12-19 15:48 | XMS_ITS | Encounter Summary ---
:1950 Author Organization [place] Address [address] [facility] [place] [address] Care Team Providers Name Role Phone Idalmis Sloan Primary Care Provider Encounter Details Date Type Department Care Team Description 11/04/2013 Hospital Encounter [facility] Jermaine Paz Ulceration ([facility] MD Chuck [address] [place], [place] ORTHOPEDICS [address] [phone] [place] [address] (Wo rk) Social History Tobacco [...] site documented in this encounter Care Teams Washing Machine Mechanic Relationship Specialty Start Date End Date Idalmis Sloan PCP - General Family Practice 11/04/13 documented as of this encounter
--- OUTSIDE RECORDS SUMMARY | 2021-12-19 15:48 | XMS_ITS | Encounter Summary ---
:1950 Author Organization [place] Address [facility] [address] Care Team Providers Name Role Phone Unavailable Primary Care Provider Unavailable Encounter Details Date Type Department Care Team Description 08/22/2010 Historic Notes INTERFACED REPORT Interface, Transcript onMD Social History Tobacco Use Types Packs/Day Years Used Date Smoking Tobacco: Never Assessed Sex Assigned at Date Recorded Not on file documented as of this encounter Progress Notes Interface, Sail Repair Person - 12/02/2010 7:39 PM CDT Patient Status - Physical status Stable (s/s of potential complications absent or manageable) - Psychosocial status Stable Discharge Planning - Discharge From: [facility] - Patient Care Unit: ms 2 [...] Materials, and Instructions, Follow Up Care Interface, Sail Repair Person - 12/02/2010 7:39 PM CDT General Information [...] Mobility: Rolling/Turning - Level of stand-by assist [place]: Bed Mobility: Scooting/Bridging - Level of stand-by assist [place]: Bed Mobility: Sit to Supine - Level of stand-by assist [place]: Bed Mobility: Supine to Sit - Level of stand-by assist [place]: Bed Mobility Analysis - Impairments pain Contributing to Impaired Bed Mobility: Transfer: Sit to Stand - Level of CGA [place]: - Physical verbal cues; supervision Assist/Nonphysical Assist: Transfer: Stand to Sit - Level of stand-by assist [place]: Gait Skills - Level of minimum assist (75% patients effort) [place]: - Physical verbal cues Assist/Nonphysical Assist: - Assistive Device: AUDIO VISUAL AIDS DIRECTOR and IV pole - Gait Distance: 20' to door and back Gait Analysis - Gait Pattern Used: swing-to gait - Gait Deviations decreased jeffery; decreased step length Noted: - Impairments pain Contributing to Gait Deviations: Balance Skills Assessment - Sitting Balance: independent Static: - Sitting Balance: independent Dynamic: - Wly-lh-Bsyqy Balance: minimum assist (75% patients effort) - [...] - Anticipated Equipment elastic laces and a guest relations coordinator at Discharge: - Risks and Benefits of [...] Assessment, Sensation, Treatment Plan, Clinical Impression Interface, Sail Repair Person - 12/02/2010 7:38 PM CDT SH - Responded to referral per pt. request for emotional support. Pt. is recovering from back surgery, and she says it went very well, expresses gratitude for Dr. Comer's skill and the quality of care she has received from nursing staff. 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 Pt. is originally from [place], [place] where she was a [facility], has not found a new aisha home since moving to [place], [place] but says she attends chapel at [facility] occasionally. Pt.'s family have not been able to visit due to a wedding in [place], but said her should be back in time for discharge. Offered active listening, emotional support, prayed for comfort and healing and gave thanks for successful surgery. Will follow up if needs arise. [Signature] Author: MARY ELIAS (Sort Manager Low Altitude Air Defense Officer) [Signed 10:25] documented in this encounter Plan of Treatment Not on filedocumented as of this encounter Visit Diagnoses Not on filedocumented in this encounter
--- OUTSIDE RECORDS SUMMARY | 2021-12-19 15:48 | XMS_ITS | Encounter Summary ---
:1950 Author Organization [place] Address [address] [facility] [place] [address] Care Team Providers Name Role Phone Unavailable Primary Care Provider Unavailable Encounter Details Date Type Department Care Team Description 08/21/2010 Operative Report [facility] Jose Comer (Telemarketing Sales Representative) [facility] MD Dipti Results [facility] [address] [facility] [address] [place] [address] Social History Tobacco Use Types [...] of pedicle screw mary fixation, L3-L4 (CD). 8.[place] of autogenous bone marrow, right ilium. SURGEON: Jose Comer MD FRONT FACER: Bethany Chaparro PA-C, INDICATIONS FOR PROCEDURE: Krys [...] of L2 and L4 with a #1 [place], and then using a 4 mm [place] [...] of L2 and L4, using a #1 [place], and then with the help of a [...] The set nuts were torqued to the back stayer's specifications with a torque wrench. The wound [...] in good condition. Revised: , , Document: [id number], EM#[id number] Electronically signed on 08/22/2010 06:48 by JOSE COMER MD MT: [id number] Name: KRYS MOSHER Account: [id number] : 1950 Procedure Date: 08/21/2010 Document: [id number] cc: Idalmis Sloan MD documented in this encounter Plan of Treatment Not on filedocumented as of this encounter Visit Diagnoses Not on filedocumented in this encounter
--- OUTSIDE RECORDS SUMMARY | 2021-12-19 15:48 | XMS_ITS | Encounter Summary ---
:1950 Author Organization [place] Address [facility] [place] [address] Care Team Providers Name Role Phone Unavailable Primary Care Provider Unavailable Encounter Details Date Type Department Care Team Description 08/22/2010 Historic Notes INTERFACED REPORT Israel Schwab RN [facility] [address] [place], [place] [address] (Wo rk) Social History [...] was around 8/10. She feels that the CLINICAL NURSING INTERN with the vistaril and tylenol are a [...] one 50 mg dose this AM) Dilaudid CLINICAL NURSING INTERN 0.1-0.2 Q 6 min with CR of [...] with current interventions. Plan: 1. Will keep CLINICAL NURSING INTERN as it is, since she is doing [...] and coordination of care. Signatures ISRAEL SCHWAB (RECREATION SPECIALIST)[Signed 09:46] Authored: Interval History/Chief Complaint, Review of Systems, Physical Exam, Vital Signs/Labs/Imaging/Culture Review, Pain Score and Medications, Assessment and Plan documented in this encounter Plan of Treatment Not on filedocumented as of this encounter Visit Diagnoses Not on filedocumented in this encounter
--- OUTSIDE RECORDS SUMMARY | 2021-12-19 15:48 | XMS_ITS | Encounter Summary ---
:1950 Author Organization [facility] Address [address] [place] [address] Care Team Providers Name Role Phone Unavailable [...] Waleska Alcaraz - 03/21/2012 7:37 PM CST [facility] Triage Call Report Patient Name: Krys Mosher Call Date & Time: 03/21/2012 11:00:19AM Patient PCP Name: Idalmis Sloan MRN: Patient Address: [address] [address] Patient Date of : 1950 Age: 61 yr. Patient Gender: Female Conservation Biology Professor Name: Idalmis Bolaños Presenting Problem: Krys has [...] Procedure Note: .Other right foot surgery 2006 ER SIFTER HELPER documented in this encounter Plan of Treatment Not on filedocumented as of this encounter Visit Diagnoses Not on filedocumented in this encounter
--- OUTSIDE RECORDS SUMMARY | 2021-12-19 15:48 | XMS_ITS | Encounter Summary ---
:1950 Author Organization [place] Address [address] [place] [address] Care Team Providers Name Role Phone NathaliaIdalmisVijaya Primary Care Provider Encounter Details Date Type Department Care Team Description 11/13/2013 Telephone [facility] Nurse Idalmis Sloan Advisors [facility] [address] [facility] [address] [place] [address] [place] [address] [phone] (Wo rk) Social History Tobacco Use Types [...] better.I know an abx would help.Who is product responsibility liaison? Advised to be seen.Page sent to MD per pt.Md advised to be seen in am. Pt stated she will go to the [facility]. # [phone] Triage Note: Guideline Title: Cough - Adult [...] air. Be sure to clean according to architectural drafting instructor's instructions. Limit activities and increase periods of [...] on filedocumented in this encounter Care Teams Ocean Freight Agent Relationship Specialty Start Date End Date Idalmis Sloan PCP - General Family Practice 11/04/13 documented as of this encounter
--- OUTSIDE RECORDS SUMMARY | 2021-12-19 15:48 | XMS_ITS | Encounter Summary ---
:1950 Author Organization [place] Address [facility] [place] [address] Care Team Providers Name Role Phone Unavailable Primary Care Provider Unavailable Encounter Details Date Type Department Care Team Description 08/23/2010 Historic Notes INTERFACED REPORT Interface, Transcript on, Social History Tobacco Use Types Packs/Day Years Used Date Smoking Tobacco: Never Assessed Sex Assigned at Date Recorded Not on file documented as of this encounter Progress Notes Interface, Smoke Control Supervisor - 12/02/2010 7:36 PM CDT General Information [...] Level of moderate assist (50% patients effort) [place]: - Physical 1 person assist Assist/Nonphysical Assist: Bed Mobility: Sit to Supine - Level of moderate assist (50% patients effort) [place]: - Physical 1 person assist Assist/Nonphysical Assist: Bed Mobility: Supine to Sit - Level of moderate assist (50% patients effort) [place]: - Physical 1 person assist Assist/Nonphysical Assist: Bed Mobility Analysis - Impairments pain; post surgical precautions; decreased Contributing to strength Impaired Bed Mobility: Transfer: Sit to Stand - Level of minimum assist (75% patients effort) [place]: - Physical 1 person assist Assist/Nonphysical Assist: Transfer: Stand to Sit - Level of minimum assist (75% patients effort) [place]: - Physical 1 person assist Assist/Nonphysical Assist: Transfer: Sit/Stand Safety Analysis - Impairments pain; post surgical precautions; decreased Contributing to strength Impaired Transfers: Lower Body Dressing - Level of maximum assist (25% patients effort) [place]: - Physical 1 person assist Assist/Nonphysical Assist: [...] therapy goals): - Demonstrates need for PT; WEDDING COORDINATOR referral to another service: - Predicted Duration of 3-4 days Therapy: - Predicted Frequency daily of Therapy: - Discharge Rehabilitation facility; TCU versus home with Destination: assist pending progress - Anticipated Equipment Cook Helper; Dressing equipment at Discharge: - Risks and [...]
--- OUTSIDE RECORDS SUMMARY | 2021-12-19 15:48 | XMS_ITS | Encounter Summary ---
:1950 Author Organization [place] Address [facility] [place] [address] Care Team Providers Name Role Phone Unavailable Primary Care Provider Unavailable Encounter Details Date Type Department Care Team Description 08/22/2010 Hospital Laboratory [facility] Results Carlos simmons PA-C [facility] [address] [address] (Wo rk) Social History Tobacco Use Types [...] Signature Hemoglobin 10.4 (L) 11.7 - 15.7 [place] g/dL [facility] Specimen Anatomical Collection Method Collection Time Receive d Time (Source) Location / / Volume Laterality 08/22/2010 7:55 AM 1 7:58 CDT AM CDT Maame Chaparro PA-C LAB - BLOOD ORDERABLES Performing Organization Address City/State/ZIP Code Phon e Number [facility] [address] [place] [address] [facility] (ABNORMAL) Basic metabolic panel (08/22/2010 7:55 AM CDT) P athologist Signature Sodium 138 133 - 144 [place] mmol/L [facility] Potassium 4.2 3.4 - 5.3 [place] mmol/L [facility] Chloride 107 94 - 109 [place] mmol/L [facility] Carbon Dioxide 24 20 - 32 [place] mmol/L [facility] Anion Gap 8 6 - 17 [place] mmol/L [facility] Glucose 112 (H) 60 - 99 [place] mg/dL [facility] Urea Nitrogen 10 7 - 30 [place] mg/dL [facility] Creatinine 0.74 0.52 - [facility] 1.04 mg/dL [facility] GFR Estimate 80 >60 [place] mL/min/[address] [place] [address] LAB GFR Estimate If >90 >60 [place] Black mL/min/1.[address] [place] [address] LAB Calcium 7.7 (L) 8.5 - 10.4 [place] mg/dL [facility] Specimen Anatomical Collection Method Collection Time Receive d Time (Source) Location / / Volume Laterality 08/22/2010 7:55 AM 1 7:58 CDT AM CDT Maame Chaparro PA-C LAB - BLOOD ORDERABLES Performing Organization Address City/State/ZIP Code Phon e Number [place] [address] [place] [address] [facility] documented in this encounter Visit Diagnoses Not on filedocumented in this encounter
--- OUTSIDE RECORDS SUMMARY | 2021-12-19 15:48 | XMS_ITS | Encounter Summary ---
:1950 Author Organization [facility] Address [facility] [place] [address] Care Team Providers Name Role Phone Unavailable Primary Care Provider Unavailable Encounter Details Date Type Department Care Team Description 08/16/2010 Historic Notes INTERFACED REPORT Interface, Transcript onMD Social History Tobacco Use Types Packs/Day Years Used Date Smoking Tobacco: Never Assessed Sex Assigned at Date Recorded Not on file documented as of this encounter Progress Notes Interface, Supervisor Parking Lot - 12/02/2010 7:47 PM CDT General Information - How to be Addressed Yola - Source of Information patient - Patient Belongings clothing; glasses; walker and cane - personal financial counselor #1: Sachin - Relationship to patient #1: - Phone 1: [phone] - personal financial counselor #2: Sabiha Burgess - Relationship to sister patient #2: - Phone 1: [phone] - Patient's spoken language; Faroese or Bilingual communication style Advance Directive - [...] abuse, self neglect, lack of adequate food, correction, medical care, or financial exploitation)? Values/Beliefs/Spiritual Care - C: Community: In hospital beauty sales consultant support of your spiritual health, is there someone we may contact for you? (identify all that apply) Learning Assessment - Factors Influencing no factors identified Readiness to Learn - Factors that Impact none Ability to Learn - Learning Preferences skill demonstration; written material - Cultural none Considerations - Developmental none Considerations - Samaritan none Considerations Mutuality/Individual Preferences - What information none would help us give you more personalized care? Signatures KAYLEIGH MAX (RN)[Signed 15:03] Authored: General Information, Skin Inspection, Coping Stress/Abuse Rosario Prado (Land Checker)[Signed 17:38] Authored: Advance Directive JOSE BROWN (RN)[Signed [...]
--- OUTSIDE RECORDS SUMMARY | 2021-12-19 15:48 | XMS_ITS | Encounter Summary ---
:1950 Author Organization [place] Address [facility] [place] [address] Care Team Providers Name Role Phone Unavailable Primary Care Provider Unavailable Encounter Details Date Type Department Care Team Description 08/23/[address] [facility] Results Carlos simmons PA-C [facility] [address] [address] (Wo rk) Social History Tobacco Use Types [...] Signature Hemoglobin 10.4 (L) 11.7 - 15.7 [place] g/dL [facility] Specimen Anatomical Collection Method Collection Time Receive d Time (Source) Location / / Volume Laterality 08/23/2010 7:30 AM 1 7:38 CDT AM CDT Maame Chaparro PA-C LAB - BLOOD ORDERABLES Performing Organization Address City/State/ZIP Code Phon e Number [facility] [address] [place], [place] [address] [facility] (ABNORMAL) Basic metabolic panel (08/23/2010 7:30 AM CDT) P athologist Signature Sodium 138 133 - 144 [place] mmol/L [facility] Potassium 4.1 3.4 - 5.3 [place] mmol/L [facility] Chloride 108 94 - 109 [place] mmol/L [facility] Carbon Dioxide 26 20 - 32 [place] mmol/L [facility] Anion Gap 4 (L) 6 - 17 [place] mmol/L [facility] Glucose 101 (H) 60 - 99 [place] mg/dL [facility] Urea Nitrogen 7 7 - 30 [place] mg/dL [facility] Creatinine 0.69 0.52 - [facility] 1.04 mg/dL [facility] GFR Estimate 87 >60 [place] mL/min/[address] [place] [address] LAB GFR Estimate If >90 >60 [place] Black mL/min/1.[address] [place] [address] LAB Calcium 8.3 (L) 8.5 - 10.4 [place] mg/dL [facility] Specimen Anatomical Collection Method Collection Time Receive d Time (Source) Location / / Volume Laterality 08/23/2010 7:30 AM 1 7:38 CDT AM CDT Maame Chaparro PA-C LAB - BLOOD ORDERABLES Performing Organization Address City/State/ZIP Code Phon e Number [facility] [address] [place], [place] [address] [facility] documented in this encounter Visit Diagnoses Not on filedocumented in this encounter
--- OUTSIDE RECORDS SUMMARY | 2021-12-19 15:48 | XMS_ITS | Encounter Summary ---
:1950 Author Organization [facility] Address [address] [place], [place] [id number] Care Team Providers Name Role Phone Unavailable [...] Waleska Alcaraz - 08/02/2012 4:30 PM CDT [facility] Triage Call Report Patient Name: Krys Mosher Call Date & Time: 07/31/2012 2:40:00PM Patient PCP Name: Idalmis Sloan Patient Address: [address] [place] [address] Patient Date of : 1950 Age: 62 yr. Patient Gender: Female Hearing Health Technician Name: Viji Aguilar Presenting Problem: Call FNA [...] Dr Severino Catalan to Pt 's phone [phone]. Allergies Cipro, augmentin , sulfa and Lorazepam. [facility] phone [phone]. Triage Note: Guideline Title: Infection On Antibiotic [...]
--- OUTSIDE RECORDS SUMMARY | 2021-12-19 15:48 | XMS_ITS | Encounter Summary ---
:1950 Author Organization [place] Address [facility] [place] [address] Care Team Providers Name Role Phone Unavailable Primary Care Provider Unavailable Encounter Details Date Type Department Care Team Description 08/23/2010 Historic Notes INTERFACED REPORT Israel Schwab RN [facility] [address] [place], [place] [address] (Wo rk) Social History [...] been Management: getting the 50mg dose) Dilaudid ELECTRON TUBE ASSEMBLER 0.1-0.2 Q 6 min CR 0.1-0.2 mg [...] and coordination of care Signatures ISRAEL SCHWAB (DIFFUSER OPERATOR)[Signed 14:10] Authored: Interval History/Chief Complaint, Review of Systems, Physical Exam, Vital Signs/Labs/Imaging/Culture Review, Pain Score and Medications, Assessment and Plan documented in this encounter Plan of Treatment Not on filedocumented as of this encounter Visit Diagnoses Not on filedocumented in this encounter
--- OUTSIDE RECORDS SUMMARY | 2021-12-19 15:48 | XMS_ITS | Encounter Summary ---
:1950 Author Organization [place] Address [address] [place] [address]. [place] [address] Care Team Providers Name Role Phone Unavailable Primary Care Provider Unavailable Encounter Details Date Type Department Care Team Description 08/21/2010 Hospital Laboratory [facility] [place], [facility] Results MD Dipti [facility] [address] [facility] [address] [place] [address] (Wo rk) Social History Tobacco [...] At Patho logist Time Signature ABO A [facility] RH(D) Pos [facility] Antibody Neg [facility] LAB Specimen 08/24/2010 [facility] LAB Specimen Anatomical Collection Method Collection Time Receive d Time (Source) Location / / Volume Laterality 08/21/2010 6:15 AM 1 6:17 CDT AM CDT Jose Comer MD LAB - BLOOD BANK TEST ORDER Performing Organization Address City/State/ZIP Code Phon e Number [facility] [address] [place], [place] [address] [facility] documented in this encounter Visit Diagnoses Not on filedocumented in this encounter
--- OUTSIDE RECORDS SUMMARY | 2021-12-19 15:48 | XMS_ITS | Encounter Summary ---
:1950 Author Organization [place] Address [facility] [place] [address] Care Team Providers Name Role Phone Unavailable Primary Care Provider Unavailable Encounter Details Date Type Department Care Team Description 08/25/2010 Historic Notes INTERFACED REPORT Interface, Transcript onMD Social History Tobacco Use Types Packs/Day Years Used Date Smoking Tobacco: Never Assessed Sex Assigned at Date Recorded Not on file documented as of this encounter Progress Notes Interface, Credit And Loan Collections Supervisor - 12/02/2010 7:33 PM CDT Discharge Summary - Reason for Discharge Discharge from facility - Progress toward Goals partially met achieving short term goals/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
--- OUTSIDE RECORDS SUMMARY | 2021-12-19 15:48 | XMS_ITS | Encounter Summary ---
:1950 Author Organization [place] Address [address] [facility] [place] [address] Care Team Providers Name Role Phone Unavailable Primary Care Provider Unavailable Encounter Details Date Type Department Care Team Description 08/25/2010 Discharge Summary [facility] Krysta, (Adjunct Professor Of U.[place]. History) [facility] VIELKA Isabel Results [facility] [address] [id number] Social History Tobacco Use Types Packs/Day Years [...] PA-C [place]: [id number] Name: KRYS MOSHER Account: [id number] : 1950 Admit Date: Discharge Date: 08/25/2010 Document: [id number] documented in this encounter Plan of Treatment Not on filedocumented as of this encounter Visit Diagnoses Not on filedocumented in this encounter
--- OUTSIDE RECORDS SUMMARY | 2021-12-19 15:48 | XMS_ITS | Encounter Summary ---
:1950 Author Organization [facility] Address [address] [facility] [place] [address] Care Team Providers Name Role Phone Idalmis Sloan Primary Care Provider Encounter Details Date Type Department Care Team Description 07/20/2014 Therapy Visit [facility] Cherelle Santana Midli ne low back Rehabilitation Services PT pain with [place] [facility] right- sided sciatica [facility] MEDICINE (Primary Dx) [address] [place] [address] [place], [place] [phone] [address] Social History Tobacco Use Types Packs/Day Years [...] pain throughout movement Rotation: Left: Right: Side [place]: Left: Right: Strength: Abdominals 1/5 Lumbar Myotomes: [...] Sheet for this information) Short term and group home goals: (See Goal Flow Sheet for this [...] Date/Time Associated Diagnosis Comme nts [facility] THERAPEUTIC Routine 07/25/2014 12:32 PM Midline Low Back P ain ACTIVITIES CDT With Right-Sided Sciatica [facility] THERAPEUTIC Routine 07/25/2014 12:32 PM Midline low back p ain EXERCISES CDT with right-sided sciatica documented in this encounter Visit Diagnoses Diagnosis Midline low back pain with right-sided s ciatica - Primary documented in this encounter Care Teams Post Exchange Manager Relationship Specialty Start Date End Date Idalmis Sloan PCP - General Family Practice 11/04/13 documented as of this encounter
--- OUTSIDE RECORDS SUMMARY | 2021-12-19 15:48 | XMS_ITS | Encounter Summary ---
:1950 Author Organization [place] Address [address] [place] [address] Care Team Providers Name Role Phone Unavailable Primary Care Provider Unavailable Encounter Details Date Type Department Care Team Description 08/26/2010 Historic Notes INTERFACED REPORT Interface, Transcript MD colby Social History Tobacco Use Types Packs/Day Years Used Date Smoking Tobacco: Never Assessed Sex Assigned at Date Recorded Not on file documented as of this encounter Progress Notes Interface, Inclusion Intern - 12/02/2010 7:32 PM CDT Discharge Summary - Reason for Discharge Discharge from facility - Progress toward Goals partially met achieving short term goals/supervisor long goods goals - Barriers to achieving Early discharge from facility goals - Continued Therapy No, family to assist at home Recommended Signatures JEFF CHAVEZ (OTR/L)[Signed 16:20] Authored: Discharge Summary documented in this encounter Plan of Treatment Not on filedocumented as of this encounter Visit Diagnoses Not on filedocumented in this encounter
--- OUTSIDE RECORDS SUMMARY | 2021-12-19 15:49 | XMS_ITS ---
:1950 Author Care Team Providers Name Role Phone Ed Travis Primary Care Provider Unavailable Allergies Code Code System Name Reaction Severity Status Onset 152425 RxNorm Augmentin ? ? Active ? 7052 [...] ? Specific 1.025 1.005-1.030 Final [facility]: Complete [place] [address], [place] ? ? URINE ? Ph 5.5 5.0-7.5 Final [facility]: [address], [place] ? ? URINE ? Urine-colo yellow yellow Final [facility]: r [address], [place] ? ? URINE ? Appearance clear clear Final [facility]: [address], [place] ? ? URINE ? WBC negative negative Final [facility] p: Esterase [address], [place] ? ? URINE ABNOR Protein 1+ negative/tra Final [facility]: MAL ce [address], [place] ? ? URINE ? Glucose negative negative Final [facility]: [address], [place] ? ? URINE ABNOR Ketones trace negative Final [facility] p: MAL [address], [place] ? ? URINE ? Occult negative negative Final [facility]: Blood [address], [place] ? ? URINE ? Bilirubin negative negative Final [facility]: [address], [place] ? ? URINE ? Urobilinog 0.2 0.2-1.0 Final [facility]: en,semi-qn mg/dL mg/dL [address], [place] ? ? URINE ? Nitrite, negative negative Final [facility]: Urine [address], [place] ? ? URINE ? Microscopi see ? Final [facility]: c below: [address], [place] ? ? URINE ? Wbc 0-5 /hpf 0 - 5 /hpf Final [facility]: [address], [place] ? ? URINE ? Rbc 0-2 /hpf 0 - 2 /hpf Final [facility]: [address], [place] ? ? URINE ? Epithelial 0-10 0 - 10 /hpf Final [facility]: Cells (Non /hpf [address], [place] ? ? URINE ? Epithelial analog device designer ? Cancelle [facility]: Cells d [address], [place] ? ? URINE ? Casts analog device designer ? Cancelle [facility]: d [address], [place] ? ? URINE ? Cast Type analog device designer ? Cancelle [facility]: d [address], [place] ? ? URINE ABNOR Crystals present n/a Final [facility]: MAL [address], [place] ? ? URINE ? Crystal amorphou n/a Final [facility]: Type s [address], [place] ? ? URINE ? Mucus present not estab. Final [facility]: Threads [address], [place] ? ? URINE ? Bacteria few none Final [facility] : seen/few [address], [place] ? ? URINE ? Yeast analog device designer ? Cancelle [facility]: d [address], [place] ? ? URINE ? Trichomona analog device designer ? Cancelle [facility]: s d [address], [place] ? ? URINE ? Comment analog device designer ? Cancelle [facility]: d [address], [place] ? ? URINE ? Microscopi analog device designer ? Cancelle [facility]: c d [address], [place] 07/16/2020 Culture, URINE ABNOR Urine final ? Final [facility] Urine MAL Culture, report ([place] Routine ): [address] [facility], [place] ? ? URINE ABNOR Result 1 comment ? Final [facility] p MAL ([place] ): [address] [facility], [place] ? ? URINE ABNOR Result 2 serratia ? Final [facility] MAL maryce ([place] ns ): [address] [facility], [place] ? ? URINE ? Antimicrob comment ? Final Lab[facility] orp ial ([place] Susceptibil ): [address] [facility], [place] Past Encounters 07/16/2020 Cellulitis of Toe of Right Foot; Urinary Tract Infectious Disease [facility]: [address] [facility], [address], [place] [address], Ph. Social History Tobacco Smoking Status Former Smoker Vaccine List None recorded. Plan of Care Reminders Provider Appointments None recorded. ? ? Lab None recorded. ? ? Referral None recorded. ? ? Procedures None recorded. ? ? Surgeries None recorded. ? ? Imaging None recorded. ? ? Vitals Weight BMI Blood Pressure 160/91 mm[Hg]
== END 2021-12-19 15:40 | disposition home or self-care (01) ==
LOC: WOUND 15:39
PROVIDERS: PCP Family Medicine; Visit Provider Nurse Practitioner Family
DX: L89.891 Pressure ulcer of other site, stage 1 (principal); M14.60 Charcot's joint, unspecified site; I73.9 Peripheral vascular disease, unspecified
CPT/HCPCS: 99212

== ENCOUNTER 2022-01-02 14:52 | Outpatient (CLI) | payer MEDICARE, SELFPAY ==
--- OUTSIDE RECORDS SUMMARY | 2022-01-02 14:54 | XMS_ITS | Encounter Summary ---
:1950 Author Organization [facility] Address [address] [place] [address] Care Team Providers Name Role Phone Unavailable Primary Care Provider Unavailable Reason for Visit Reason Comments Other Encounter Details Date Type Department Care Team Description 11/20/[address] [facility] 38[address] Dustin Cagle MD Other Endocrinology [address] [place] [phone] (Wo rk) Social History Tobacco Use Types [...]
--- OUTSIDE RECORDS SUMMARY | 2022-01-02 14:54 | XMS_ITS | Encounter Summary ---
:1950 Author Organization [facility] Address [address] [place] [address] Care Team Providers Name Role Phone Unavailable Primary Care Provider Unavailable Reason for Visit Reason Comments DERMATITIS Encounter Details Date Type Department Care Team Description 12/02/2012 Procedure Visit [facility] Nurse, Bravo Chao DERMATITIS [address] [place] [address] Social History Tobacco Use Types [...]
--- OUTSIDE RECORDS SUMMARY | 2022-01-02 14:54 | XMS_ITS | Encounter Summary ---
:1950 Author Organization [facility] Address [address] [place] [address] Care Team Providers Name Role Phone Unavailable Primary Care Provider Unavailable Reason for Visit Reason Comments DERMATITIS Encounter Details Date Type Department Care Team Description 11/11/2012 Procedure Visit [facility] Nurse, Bravo Chao DERMATITIS [address] [place] [address] Social History Tobacco Use Types [...]
--- OUTSIDE RECORDS SUMMARY | 2022-01-02 14:54 | XMS_ITS | Encounter Summary ---
:1950 Author Organization [facility] Address [address] [place] [address] Care Team Providers Name Role Phone Unavailable Primary Care Provider Unavailable Encounter Details Date Type Department Care Team Description 10/25/2012 Lab Visit [facility] 3850 Rash and other nonspecific skin eruption; Laboratory Unspecified pruritic disorde r [address] 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
--- OUTSIDE RECORDS SUMMARY | 2022-01-02 14:54 | XMS_ITS | Encounter Summary ---
:1950 Author Organization [facility] Address [address] [place] [address] Care Team Providers Name Role Phone Unavailable Primary Care Provider Unavailable Reason for Visit Reason Comments Lab Questions Encounter Details Date Type Department Care Team Description 09/24/2012 Telephone [facility] 3800 Megan Son MD Lab Questions Dermatology [address] [facility] [place] [address] [place], [place] [address] [phone] Social History Tobacco Use Types Packs/Day Years [...]
--- OUTSIDE RECORDS SUMMARY | 2022-01-02 14:54 | XMS_ITS | Encounter Summary ---
:1950 Author Organization [facility] Address [address] [place] [address] Care Team Providers Name Role Phone Unavailable Primary Care Provider Unavailable Reason for Visit Reason Comments RESULTS, TEST Encounter Details Date Type Department Care Team Description 09/29/2012 Telephone [facility] Carlos Jones MD RESULTS, TEST [address] [facility] [address] [place] [address] [place] [address] (Wo rk) Social History Tobacco [...] absence (rc 8-5) She may be reached @[phone]. Thank you. documented in this encounter Plan of Treatment Not on filedocumented as of this encounter Visit Diagnoses Not on filedocumented in this encounter
--- OUTSIDE RECORDS SUMMARY | 2022-01-02 14:54 | XMS_ITS | Encounter Summary ---
:1950 Author Organization [facility] Address [address] [place] [address] Care Team Providers Name Role Phone Unavailable Primary Care Provider Unavailable Reason for Visit Reason Comments CONSULT Thyroid Encounter Details Date Type Department Care Team Description 11/13/2017 Initial Consult [facility] 380 Anirudh Cagle clinical hyperthyroidism (Primary Dx); Endocrinology MD Jose Elevated parathyroid hormone; [id number] [place] Hypocalce [facility] [address] [place] [address] [phone] Social History Tobacco Use Types Packs/Day Years [...] 12:00 PM CDT NAME: KRYS MOSHER MR#: [id number] CSN: [id number] AUTHENTICATING CLINICIAN: Anirudh Cagle MD CONFIRM #: [id number] LOC: 432 CLINIC CONSULTATION DATE OF CONSULTATION: [...] for this consultation. CC: DR. ISRAEL SLOAN [facility] [address] [place] [address] DMT:JARRETT C: CONFIRM #: [id number] documented in this encounter Plan of Treatment [...] - 11/16/2017 9:14 PM CDT Performed at [address] [place] [address] CLIA number [id number] Anirudh Cagle MD LAB_1 Performing Organization Address City/[facility] Phon e Number PN SOFT [address] [place] [address] [phone] Tsh Receptor Antibody (11/16/2017 3:17 PM CDT) athologist Signature TSH Receptor <0.90 <=1.75 IU/L PN SOFT Antibody Comment: Performed by [facility], [address] [place] [address] [email or web address], Papito Palomares MD - Lab . Director Specimen Anatomical Collection Method Collection Time Receive d Time (Source) Location / / Volume Laterality 11/16/2017 3:17 PM 8 8:43 CDT PM CDT Narrative PN SOFT - 11/18/2017 8:02 PM CDT Performed at [facility] [address] [place] [address] CLIA number [id number] Anirudh Cagle MD LAB_1 Performing Organization Address [facility] Phon e Number PN SOFT [address] [place] [address] T3 - Triiodothyronine, Free (FRT3) (11/16/2017 3:17 PM CDT) athologist Signature Triiodothyronin 3.2 1.7 - 3.7 PN SOFT e, Free pg/mL Specimen Anatomical Collection Method Collection Time Receive d Time (Source) Location / / Volume Laterality 11/16/2017 3:17 PM 8 6:30 CDT PM CDT Narrative PN SOFT - 11/16/2017 7:10 PM CDT Performed at [address] [place] [address] CLIA number [id number] Anirudh Cagle MD LAB_1 Performing Organization Address [facility] Phon e Number PN SOFT [address] [place] [address] Free T4 (11/16/2017 3:17 PM CDT) athologist Signature Thyroxine, Free 1.1 0.7 - 1.5 PN SOFT ng/dL Specimen Anatomical Collection Method Collection Time Receive d Time (Source) Location / / Volume Laterality 11/16/2017 3:17 PM 8 6:30 CDT PM CDT Narrative PN SOFT - 11/16/2017 7:10 PM CDT Performed at [place] [address] [place] [address] CLIA number [id number] Anirudh Cagle MD LAB_1 Performing Organization Address [facility] Phon e Number PN SOFT [address] [place] [address] TSH (11/16/2017 3:17 PM CDT) athologist Signature Thyroid 0.38 0.30 - PN SOFT Stimulating 4.50 Hormone uIU/mL Specimen Anatomical Collection Method Collection Time Receive d Time (Source) Location / / Volume Laterality 11/16/2017 3:17 PM 8 6:30 CDT PM CDT Narrative PN SOFT - 11/16/2017 7:10 PM CDT Performed at [address] [place] [address] CLIA number [id number] Anirudh Cagle MD LAB_1 Performing Organization Address City/[facility] Phon e Number PN SOFT [address] [facility] [place] [address] Vitamin D (In house) (11/16/2017 3:17 PM [...] - 11/16/2017 9:29 PM CDT Performed at [address] [address] CLIA number [id number] Anirudh Cagle MD LAB_1 Performing Organization Address [facility] Phon e Number PN SOFT [address] [place] [address] (ABNORMAL) PTH - Parathyroid Hormone Intact (11/16/2017 3:17 PM CDT) athologist [facility] PTH 159 (H) 10 - 100 PN SOFT pg/mL Specimen Anatomical Collection Method Collection Time Receive d Time (Source) Location / / Volume Laterality 11/16/2017 3:17 PM 8 8:43 CDT PM CDT Narrative PN SOFT - 11/16/2017 9:51 PM CDT Performed at [place] [address] [place] [address] CLIA number [id number] Anirudh Cagle MD LAB_1 Performing Organization Address [facility] Phon e Number PN SOFT [address] [place] [address] Phosphorus (11/16/2017 3:17 PM CDT) athologist Signature Phosphorus Serum 3.2 2.3 - 4.7 PN SOFT mg/dL Specimen Anatomical Collection Method Collection Time Receive d Time (Source) Location / / Volume Laterality 11/16/2017 3:17 PM 8 3:16 CDT PM CDT Narrative PN SOFT - 11/16/2017 4:36 PM CDT Performed at [facility] [address] [facility], [place] [address] CLIA number [id number] Anirudh Cagle MD LAB_1 Performing Organization Address City/State/ZIP Code Phon e Number PN SOFT [address] [place] [address] (ABNORMAL) CMP - Comprehensive Metabolic Panel (11/16/2017 3:17 PM CDT) [facility] Method Time Signature Aspartate 48 (H) [...] 11/16/2017 4:36 PM CDT Performed at [facility] [address] [facility], [place] [address] CLIA number [id number] Anirudh Cagle MD LAB_1 Performing Organization Address City/State/ZIP Code Phon e Number PN SOFT [address] [place] [address] [phone] documented in this encounter Visit Diagnoses Diagnosis [...]
--- OUTSIDE RECORDS SUMMARY | 2022-01-02 14:54 | XMS_ITS | Encounter Summary ---
:[address] [facility] Address [address] [place] [address] Care Team Providers Name Role Phone Unavailable Primary Care Provider Unavailable Encounter Details Date Type Department Care Team Description 11/16/2017 Lab Visit [facility] Elevated parathyroid hormone ; [address] Subclinical hyperthyroidism; [place] [address] Hypocalcemia [phone] Social History Tobacco Use Types Packs/Day Years [...] Ab IgA (11/16/2017 3:17 PM CDT) [facility] Method Time Signature TISSUE 0.4 0.0 - 6.9 PN SOFT TRANSGLUTAMINASE AB IU/L IGA Comment: Reference Range: <7 Negative, 7 - 10 Equivocal, >10 Posit sung Specimen Anatomical Collection Method Collection Time Receive d Time (Source) Location / / Volume Laterality 11/16/2017 3:17 PM 8 8:53 CDT PM CDT Narrative PN SOFT - 11/18/2017 12:30 [place] [address] CLIA number [id number] Anirudh Cagle MD LAB_1 Performing Organization Address [facility] Phon e Number PN SOFT [address] [place] [address] Celiac Disease Reflex Panel IgA (11/16/2017 3:17 PM CDT) athologist Signature IGA 198 69 - 517 PN SOFT mg/dL Specimen Anatomical Collection Method Collection Time Receive d Time (Source) Location / / Volume Laterality 11/16/2017 3:17 PM 8 8:54 CDT PM CDT Narrative PN SOFT - 11/16/2017 9:14 PM CDT Performed at [address] [address] CLIA number [id number] Anirudh Cagle MD LAB_1 Performing Organization Address [facility] Phon e Number PN SOFT [address] [place] [address] Tsh Receptor Antibody (11/16/2017 3:17 PM CDT) athologist Signature TSH Receptor <0.90 <=1.75 IU/L PN SOFT Antibody Comment: Performed by [facility], [address] [place] [address] [email or web address], Papito Palomares MD - Lab . Director Specimen Anatomical Collection Method Collection Time Receive d Time (Source) Location / / Volume Laterality 11/16/2017 3:17 PM 8 8:43 CDT PM CDT Narrative PN SOFT - 11/18/2017 8:02 PM CDT Performed at [facility] [address] [place] [address] CLIA number [id number] Anirudh Cagle MD LAB_1 Performing Organization Address City/[facility] Phon e Number PN SOFT [address] [place] [address] T3 - Triiodothyronine, Free (FRT3) (11/16/2017 3:17 PM CDT) athologist Signature Triiodothyronin 3.2 1.7 - 3.7 PN SOFT e, Free pg/mL Specimen Anatomical Collection Method Collection Time Receive d Time (Source) Location / / Volume Laterality 11/16/2017 3:17 PM 8 6:30 CDT PM CDT Narrative PN SOFT - 11/16/2017 7:10 PM CDT Performed at [facility], [facility] [place] [address] CLIA number [id number] Anirudh Cagle MD LAB_1 Performing Organization Address City/[facility] Phon e Number PN SOFT [address] [place] [address] Free T4 (11/16/2017 3:17 PM CDT) athologist Signature Thyroxine, Free 1.1 0.7 - 1.5 PN SOFT ng/dL Specimen Anatomical Collection Method Collection Time Receive d Time (Source) Location / / Volume Laterality 11/16/2017 3:17 PM 8 6:30 CDT PM CDT Narrative PN SOFT - 11/16/2017 7:10 PM CDT Performed at [address] [address] CLIA number [id number] Anirudh Cagle MD LAB_1 Performing Organization Address [facility] Phon e Number PN SOFT [address] [place] [address] TSH (11/16/2017 3:17 PM CDT) athologist Signature Thyroid 0.38 0.30 - PN SOFT Stimulating 4.50 Hormone uIU/mL Specimen Anatomical Collection Method Collection Time Receive d Time (Source) Location / / Volume Laterality 11/16/2017 3:17 PM 8 6:30 CDT PM CDT Narrative PN SOFT - 11/16/2017 7:10 PM CDT Performed at [address] [address] CLIA number [id number] Anirudh Cagle MD LAB_1 Performing Organization Address [facility] Phon e Number PN SOFT [address] [place] [address] Vitamin D (In house) (11/16/2017 3:17 PM [...] - 11/16/2017 9:29 PM CDT Performed at [address] [address] CLIA number [id number] Anirudh Cagle MD LAB_1 Performing Organization Address [facility] Phon e Number PN SOFT [address] [place] [address] (ABNORMAL) PTH - Parathyroid Hormone Intact (11/16/2017 3:17 PM CDT) P athologist Signature PTH 159 (H) 10 - 100 PN SOFT pg/mL Specimen Anatomical Collection Method Collection Time Receive d Time (Source) Location / / Volume Laterality 11/16/2017 3:17 PM 8 8:43 CDT PM CDT Narrative PN SOFT - 11/16/2017 9:51 PM CDT Performed at [address] [place] [address] CLIA number [id number] Anirudh Cagle MD LAB_1 Performing Organization Address [facility] Phon e Number PN SOFT [address] [place] [address] Phosphorus (11/16/2017 3:17 PM CDT) athologist Signature Phosphorus Serum 3.2 2.3 - 4.7 PN SOFT mg/dL Specimen Anatomical Collection Method Collection Time Receive d Time (Source) Location / / Volume Laterality 11/16/2017 3:17 PM 8 3:16 CDT PM CDT Narrative PN SOFT - 11/16/2017 4:36 PM CDT Performed at [facility], [address] [place] [address] CLIA number [id number] Anirudh Cagle MD LAB_1 Performing Organization Address City/[facility] Phon e Number PN SOFT [address] [place] [address] (ABNORMAL) CMP - Comprehensive Metabolic Panel (11/16/2017 [...] 11/16/2017 4:36 PM CDT Performed at [facility], [facility] [address] [place] [address] CLIA number [id number] Anirudh Cagle MD LAB_1 Performing Organization Address City/State/ZIP Code Phon e Number PN SOFT [address] [place] [address] documented in this encounter Visit Diagnoses Diagnosis Elevated parathyroid hormone (HRC) Unspecified endocrine disorder Subclinical hyperthyroidism (HRC) Thyrotoxicosis without mention of goiter or other cause, without mention of thyrotoxic crisis or storm Hypocalcemia documented in this encounter
--- OUTSIDE RECORDS SUMMARY | 2022-01-02 14:54 | XMS_ITS | Encounter Summary ---
:1950 Author Organization [facility] Address [address] [place] [address] Care Team Providers Name Role Phone Unavailable Primary Care Provider Unavailable Reason for Visit Reason Comments Appt. Scheduled Encounter Details Date Type Department Care Team Description 12/14/2012 Telephone [facility] 3800 Megan Son MD Appt. Scheduled Dermatology [address] [place] [address] [place] [address] [phone] Social History Tobacco Use Types Packs/Day Years [...] her husbands schedule first. She will call [phone] to schedule this appt. Megan Son MD [...]
--- OUTSIDE RECORDS SUMMARY | 2022-01-02 14:54 | XMS_ITS | Encounter Summary ---
:1950 Author Organization [facility] Address [address] [place] [address] Care Team Providers Name Role Phone Unavailable Primary Care Provider Unavailable Encounter Details Date Type Department Care Team Description 10/12/2012 Notes/Orders [facility] 3800 Megan Son MD Dermatology [address] [place] [address] [place], [place] [address] [phone] Social History Tobacco Use Types Packs/Day Years Used Date Smoking Tobacco: Never Assessed Sex Assigned at Date Recorded Not on file documented as of this encounter Plan of Treatment Not on filedocumented as of this encounter Visit Diagnoses Not on filedocumented in this encounter
--- OUTSIDE RECORDS SUMMARY | 2022-01-02 14:54 | XMS_ITS | Clinical Summary ---
:1950 Author Organization [facility] Address [address] [place] [address] Care Team Providers Name Role Phone Unavailable [...] for each transition of care or referral. 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
--- OUTSIDE RECORDS SUMMARY | 2022-01-02 14:54 | XMS_ITS | Encounter Summary ---
:1950 Author Organization [facility] Address [address] [place] [address] Care Team Providers Name Role Phone Unavailable Primary Care Provider Unavailable Reason for Visit Reason Comments ECZEMA Encounter Details Date Type Department Care Team Description 11/04/2012 Procedure Visit [facility], Bravo Chao ECZEMA [address] [place] [address] Social History Tobacco Use Types [...]
--- OUTSIDE RECORDS SUMMARY | 2022-01-02 14:54 | XMS_ITS | Encounter Summary ---
:1950 Author Organization [facility] Address [address] [place] [address] Care Team Providers Name Role Phone Unavailable Primary Care Provider Unavailable Reason for Visit Reason Comments Follow-up Encounter Details Date Type Department Care Team Description 10/25/2012 Office Visit [facility] 3800 Megan Son MD Unspecified pruritic Dermatology [address] disorder (Primary Dx) [address] [place] [id number] [phone] Social History Tobacco Use Types Packs/Day Years [...] Has had 2 biopsies ( one at [facility], one elsewhere) , both consistent [...] 7 days. Take 30 minutes before first [id number]. Avoid lying down for 30 minutes. ??? [...] lunch. -Discussed UVB therapy, available now in [place] twice a week. Will start this. Warned [...]
--- OUTSIDE RECORDS SUMMARY | 2022-01-02 14:54 | XMS_ITS | Clinical Summary ---
:1950 Author Organization [employer] Address [facility] [place] [address] Care Team Providers Name Role Phone Idalmis [...] be differe nt from the original. 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
--- OUTSIDE RECORDS SUMMARY | 2022-01-02 14:54 | XMS_ITS | Encounter Summary ---
:1950 Author Organization [facility] Address [address] [place] [address] Care Team Providers Name Role Phone Unavailable Primary Care Provider Unavailable Reason for Visit Reason Comments Rash SWELLING, LEG Encounter Details Date Type Department Care Team Description 11/27/2012 Nurse Triage [facility] 380 Found, No Pcp , Rash; SWELLING, LEG Dermatology [address] [facility] [address] [place], [place] [address] [address] [place] [address] Social History Tobacco Use Types Packs/Day Years Used Date Smoking Tobacco: Never Assessed Sex Assigned at Date Recorded Not on file documented as of this encounter Nursing Notes Vicki Andrew - 11/27/2012 2:28 PM CDT Protocol: LEG SWELLING AND [id number] Affirmative: [1] Thigh, calf, or ankle swelling [...]
--- OUTSIDE RECORDS SUMMARY | 2022-01-02 14:54 | XMS_ITS | Encounter Summary ---
:1950 Author Organization [facility] Address [address] [place] [address] Care Team Providers Name Role Phone Unavailable Primary Care Provider Unavailable Reason for Visit Reason Comments UPDATE Encounter Details Date Type Department Care Team Description 12/07/[address] [facility] 3800 Dustin Cagle MD UPDATE Endocrinology [address] [place] [phone] (Wo rk) Social History Tobacco Use Types [...]
--- OUTSIDE RECORDS SUMMARY | 2022-01-02 14:54 | XMS_ITS | Encounter Summary ---
:1950 Author Organization [facility] Address [address] [place] [address] Care Team Providers Name Role Phone Unavailable Primary Care Provider Unavailable Reason for Visit Reason Comments Rash Encounter Details Date Type Department Care Team Description 09/14/2012 [place] Alok Wright/[place] [facility] [place] [facility] Cheri Qureshi (Primary Dx) [address] [place] [address] [place], [place] [phone] (Wo rk) Social History Tobacco Use Types [...] times recently including a visit to the flower stripper and was given topical steroid creams without [...] 7 days. Take 30 minutes before first [id number]. Avoid lying down for 30 minutes. ??? [...]
--- OUTSIDE RECORDS SUMMARY | 2022-01-02 14:54 | XMS_ITS | Encounter Summary ---
:1950 Author Organization [employer] Address [address] [facility] [place] [address] Care Team Providers Name Role Phone LeviIdalmis stahl Ann Primary Care Provider Madhav Matute MD Unavailable Encounter Details Date Type Department Care Team Description 01/15/2021 Medical Correspondence [employer] Scan, PHYSICAL THERAPY Health Info Mgmt Non-Provider ORDER [facility] [address] [place] [address] Social History Tobacco Use Types Packs/Day Years Used Date Smoking Tobacco: Never Smokeless Tobacco: Never Sex Assigned at Date Recorded Not on file documented as of this encounter Plan of Treatment Not on filedocumented as of this encounter Visit Diagnoses Not on filedocumented in this encounter Care Teams Teacher Of Family And Consumer Science Relationship Specialty Start Date End Date Idalmis Sloan PCP - General Family Practice 11/04/13 Madhav Matute MD Assigned Neuroscience 12/02/20 [address] MARYANA BEGUM Provider [address] [place] [address] [phone] documented as of this encounter
--- OUTSIDE RECORDS SUMMARY | 2022-01-02 14:54 | XMS_ITS | Encounter Summary ---
:1950 Author Organization [facility] Address [address] [place] [address] Care Team Providers Name Role Phone Unavailable Primary Care Provider Unavailable Encounter Details Date Type Department Care Team Description 09/28/2012 Notes/Orders [facility] 3800 Megan Son MD Rash and other Dermatology [address] nonspecific skin [address] eruption (Primary Dx) [place] [id number] [phone] Social History Tobacco Use Types Packs/Day Years Used Date Smoking Tobacco: Never Assessed Sex Assigned at Date Recorded Not on file documented as of this encounter Plan of Treatment Not on filedocumented as of this encounter Visit Diagnoses Diagnosis Rash and other nonspecific skin eruption - Primary documented in this encounter
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
--- OUTSIDE RECORDS SUMMARY | 2022-01-02 14:54 | XMS_ITS | Encounter Summary ---
:1950 Author Organization [facility] Address [address] [place] [address] Care Team Providers Name Role Phone Unavailable Primary Care Provider Unavailable Reason for Visit Reason Comments Appt. Needed Referral rec via fax for Hyp erthyroidism from Dr. Idalmis Sloan at [facility] Encounter Details Date Type Department Care Team Description 2017 Notes/Orders [facility] 3800 Nurse, P3800 End Endocrinology [address] [place] [address] [phone] Social History Tobacco Use Types Packs/Day Years Used Date Smoking Tobacco: Every Day Cigarettes 1 Sex Assigned at Date Recorded Not on file documented as of this encounter Progress Notes Killian Shah - 2017 1:20 PM CDT Referral rec via fax for Hyperthyroidism from Dr. Idalmis Sloan at [facility] documented in this encounter Plan of Treatment Not on filedocumented as of this encounter Visit Diagnoses Not on filedocumented in this encounter
--- OUTSIDE RECORDS SUMMARY | 2022-01-02 14:54 | XMS_ITS | Clinical Summary ---
:1950 Author Organization [employer] Address [place] [address] Care Team Providers Name Role Phone Idalmis [...] MEDICARE PART A - MEDICARE PART A [id number] 2008-Prese ATTN: CLAIMS HB USE ONLY HB ONLY nt [address] [place] [address] [facility] MR [id number] 2020-Presen [address] [address] [place] [address] Advance Directives Latest Code Status on File Code Status Date Activated Date Inactivated Comments Full Code 07/16/2012 5:52 PM 07/17/2012 6:32 PM Full Code 07/16/2012 10:11 AM 07/16/2012 5:52 PM Care Teams Brand Ambassador Promotional Model Relationship Specialty Start Date End Date Idalmis Sloan MD PCP - General Family Practice 07/15/12
--- OUTSIDE RECORDS SUMMARY | 2022-01-02 14:54 | XMS_ITS | Encounter Summary ---
:1950 Author Organization [facility] Address [address] [place] [address] Care Team Providers Name Role Phone Unavailable Primary Care Provider Unavailable Encounter Details Date Type Department Care Team Description 09/22/[address] [facility] [address] Rash/skin eruption [address] [place], [place] [phone] Social History Tobacco Use Types Packs/Day Years [...] am out of the office next week. ATOR SPECIALIST COMMUNICATIONS Miscellaneous - 04/11/2016 5:07 AM CSTNotes Recorded [...] am out of the office next week. ATOR SPECIALIST COMMUNICATIONS Miscellcarol - 04/11/2016 5:07 AM CSTNotes Recorded [...] am out of the office next week. ATOR SPECIALIST COMMUNICATIONS Miscellaneous - 04/11/2016 5:07 AM CSTNotes Recorded [...] out of the office next week. [facility] - 04/11/2016 5:07 AM CSTNotes Recorded [...] am out of the office next week. ATOR SPECIALIST COMMUNICATIONS Miscellcarol - 04/11/2016 5:07 AM CSTNotes Recorded [...] am out of the office next week. ATOR SPECIALIST COMMUNICATIONS Miscellaneous - 04/11/2016 5:07 AM CSTNotes Recorded [...] am out of the office next week. ATOR SPECIALIST COMMUNICATIONS documented in this encounter Plan of Treatment [...] Results (ABNORMAL) Differential (09/22/2012 10:50 AM CDT) [facility]ist Method Time Signature Absolute 3.6 1.8 [...] - 09/22/2012 11:00 AM CDT Performed at [facility], [address] [place] [address] Transcriptions 04/11/2016 5:07 AM CSTNotes Recorded by [...] Megan Mcqueen MD LAB_1 Performing Organization Address City/[facility] Code Phon e Number HP [...] Megan Mcqueen MD LAB_1 Performing Organization Address City/[facility] Code Phon e Number HP [...] - 09/22/2012 11:23 AM CDT Performed at [facility], [address] [place] [address] Transcriptions 04/11/2016 5:07 AM CSTNotes Recorded by [...] Panel(Hepatic Function Panel) (09/22/2012 10:50 AM CDT) [facility] Method Time Signature Alk Phos 94 [...] - 09/22/2012 11:23 AM CDT Performed at [facility], [address] [place] [address] Transcriptions 04/11/2016 5:07 AM CSTNotes Recorded by [...] - 09/22/2012 11:00 AM CDT Performed at [facility], [address] [place] [address] Transcriptions 04/11/2016 5:07 AM CSTNotes Recorded by [...]
--- OUTSIDE RECORDS SUMMARY | 2022-01-02 14:54 | XMS_ITS | Encounter Summary ---
:1950 Author Organization [facility] Address [address] [place] [address] Care Team Providers Name Role Phone Unavailable Primary Care Provider Unavailable Reason for Visit Reason Comments Ulcer, Foot 5th toes b/l ft sores x 1 we ek Encounter Details Date Type Department Care Team Description 12/22/2018 Initial Consult [facility] J[facility] Stinson , Charcot's joint of right foot (Primary Dx); MedSurg DPM Blister of fifth toe of right foot, init ial encounter; [address] [place] [address] [place], [place] [phone] [address] Social History Tobacco Use Types Packs/Day Years [...] review indicates that she was admitted at [facility] on November 04, 2018 and discharged on [...] by mouth two times a day. 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 These are an accommodative insert. ASSESSMENT: ICD-10-CM [...] procedure. In review of the notes from [facility] it does indicate Charcot reconstruction so it [...] voice recognition software and may contain some educational interpreter errors) documented in this encounter Nursing Notes [...]
--- OUTSIDE RECORDS SUMMARY | 2022-01-02 14:54 | XMS_ITS | Encounter Summary ---
:1950 Author Organization [place] Address [facility]ly [facility], [address] [place] [address] Care Team Providers Name Role Phone Idalmis Sloan Primary Care Provider Madhav Matute MD Unavailable Encounter Details Date Type Department Care Team Description 01/10/2021 Orders Only [facility] Neurosurgery Reported, Patient Clinic [address] [place] [address] Social History Tobacco Use Types [...] on filedocumented in this encounter Care Teams Cement Mason Relationship Specialty Start Date End Date Idalmis Sloan PCP - General Family Practice 11/04/13 Madhav Matute MD Assigned Neuroscience 12/02/20 [address] [facility] Provider [address] [place] [address] documented as of this encounter
--- OUTSIDE RECORDS SUMMARY | 2022-01-02 14:54 | XMS_ITS | Encounter Summary ---
:1950 Author Organization [facility] Address [address] [place] [address] Care Team Providers Name Role Phone Unavailable Primary Care Provider Unavailable Reason for Visit Reason Comments Fax LAB RESULTS Encounter Details Date Type Department Care Team Description 12/02/2017 Telephone [facility] 3800 Dustin Cagle MD Fax; LAB RESULTS Endocrinology [address] MECCA ELSIE [address] [place] [address] [phone] (Wo rk) Social History Tobacco Use Types [...] be faxed to Dr. Idalmis Sloan at [phone]. documented in this encounter Plan of Treatment Not on filedocumented as of this encounter Visit Diagnoses Not on filedocumented in this encounter
--- OUTSIDE RECORDS SUMMARY | 2022-01-02 14:54 | XMS_ITS | Encounter Summary ---
:1950 Author Organization [facility] Address [address] [place] [address] Care Team Providers Name Role Phone Unavailable Primary Care Provider Unavailable Reason for Visit Reason Comments ECZEMA Encounter Details Date Type Department Care Team Description 11/02/2012 Procedure Visit [facility] Nurse, Bravo Chao ECZEMA [address] [place] [address] Social History Tobacco Use Types [...]
--- OUTSIDE RECORDS SUMMARY | 2022-01-02 14:54 | XMS_ITS | Encounter Summary ---
:1950 Author Organization [employer] Address [address] [place] [address] Care Team Providers Name Role Phone Unavailable Primary Care Provider Unavailable Reason for Visit Reason Comments Rash Encounter Details Date Type Department Care Team Description 09/20/2012 Telephone [place] [facility] T[facility] Whitten Rash [address] [facility] [place], [place] [address] [address] [phone] [place], [place] [address] (Wo rk) Social History Tobacco Use Types Packs/Day Years Used Date Smoking Tobacco: Never Assessed Sex Assigned at Date Recorded Not on file documented as of this encounter Nursing Notes Denise Mon - 09/21/2012 9:20 AM CDT LM to call [phone] to schedule an appointment. Denise Mon 9:18 [...]
--- OUTSIDE RECORDS SUMMARY | 2022-01-02 14:54 | XMS_ITS | Encounter Summary ---
:1950 Author Organization [facility] Address [address] [place] [address] Care Team Providers Name Role Phone Unavailable Primary Care Provider Unavailable Reason for Visit Reason Comments ECZEMA Encounter Details Date Type Department Care Team Description 11/30/2012 Procedure Visit [facility] Nurse, Bravo Chao ECZEMA [address] [place] [address] Social History Tobacco Use Types [...]
--- OUTSIDE RECORDS SUMMARY | 2022-01-02 14:54 | XMS_ITS | Encounter Summary ---
:1950 Author Organization [facility] Address [address] [place], [place] [address] [place] [address] Care Team Providers Name Role Phone Unavailable Primary Care Provider Unavailable Reason for Visit Reason Comments Cough Encounter Details Date Type Department Care Team Description 03/03/2013 Office Visit [place] [facility] Tammie Mohan, Acute bronchitis Medicine CEMENT CAR DUMPER, SUPERVISORY EXAMINER (Primary Dx) [address] [place] [address] [employer], [place] [phone] [address] Social History Tobacco Use Types Packs/Day Years Used Date Smoking Tobacco: Never Assessed Sex Assigned at Date Recorded Not on file documented as of this encounter Last Filed Vital Signs Vital Sign Reading Time Taken Comments Blood Pressure 124/68 03/03/2013 10:55 AM DIESEL STATIONARY ENGINEER Pulse 84 03/03/2013 10:55 AM DIESEL STATIONARY ENGINEER Temperature 36.5 ??C (97.7 ??F) 03/03/2013 10:55 AM DIESEL STATIONARY ENGINEER Respiratory Rate - - Oxygen Saturation - - Inhaled Oxygen Concentration - - Weight - - Height - - Body Mass Index - - documented in this encounter Patient Instructions Patient InstructionsMoTammie cullen - 03/03/2013 11:13 AM CST Delsym for cough Mucinex D for sinus congestion. Ask the Pharmacist for this EL STATIONARY ENGINEER documented in this encounter Progress Notes Tammie [...] 7 days. Take 30 minutes before first opif-zlklo-kyhuxgylfa. Avoid lying down for 30 minutes. ??? [...] ambulatory and in stable condition. *SH~DNS~SOAP1 EL STATIONARY ENGINEER documented in this encounter Plan of Treatment Not on filedocumented as of this encounter Visit Diagnoses Diagnosis Acute bronchitis - Primary documented in this encounter
--- OUTSIDE RECORDS SUMMARY | 2022-01-02 14:54 | XMS_ITS | Encounter Summary ---
:1950 Author Organization [place] Address [address] [facility] [place] [address] Care Team Providers Name Role Phone LeviIdalmis stahl Ann Primary Care Provider Madhav Matute MD Unavailable Encounter Details Date Type Department Care Team Description 05/14/2021 Medical Correspondence [facility] Scan, PHYSICAL THERAPY Health Info Mgmt Non-Provider ORDER [facility] PAIN CLINIC [address] [place] [address] Social History Tobacco Use Types Packs/Day Years Used Date Smoking Tobacco: Never Smokeless Tobacco: Never Sex Assigned at Date Recorded Not on file documented as of this encounter Plan of Treatment Not on filedocumented as of this encounter Visit Diagnoses Not on filedocumented in this encounter Care Teams Nurse Staff Relationship Specialty Start Date End Date Idalmis Sloan PCP - General Family Practice 11/04/13 Madhav Matute MD Assigned Neuroscience 12/02/20 [address] MARYANA BEGUM Provider [address] [place] [address] 665177 documented as of this encounter
--- OUTSIDE RECORDS SUMMARY | 2022-01-02 14:55 | XMS_ITS | Encounter Summary ---
:1950 Author Organization [place] Address [address] [place] [address] Care Team Providers Name Role Phone Idalmis [...] on filedocumented in this encounter Care Teams Hearing Aid Mechanic Relationship Specialty Start Date End Date Idalmis Sloan PCP - General Family Practice 11/04/13 documented as of this encounter
--- OUTSIDE RECORDS SUMMARY | 2022-01-02 14:55 | XMS_ITS | Encounter Summary ---
:1950 Author Organization [place] Address [address] [place] [address]. [place] [address] Care Team Providers Name Role Phone Idalmis Sloan Primary Care Provider Reason for Visit Diagnostic Imaging XR (Routine) - Closed Specialty Diagnoses / Procedures Referred By Contact Refer red To Contact Diagnoses Acute bilateral low back pain with left-sided sciatica Ana Jacobs PA-C Procedures XR Lumbar Bending Only 2/3 Views [facility] [address] [facility] [address] [place] [address] Referral ID Status Reason Start Date Expiration Date Visits Requ ested Visits Authorized [id number] Closed 10/29/2020 10/29/2021 1 1 Encounter Details Date Type Department Care Team Description 10/29/2020 Ancillary Procedure [facility] Ana Jacobs Acu te bilateral low Sports and Kieran PASamiC back pain with [facility] left-side d sciatica [facility] [address] [place] [address] [facility] [address] [place] [address] [address] [place] [id number] Social History Tobacco Use Types Packs/Day Years [...] extension. JULIO CÉSAR HUITRON MD SYSTEM ID: ??[id number] Narrative 10/29/2020 4:29 PM CDT XR LUMBAR BENDING ONLY 2/3 VIEWS 10/29/2020 4:07 PM INDICATION: Acute bilateral low back josefina n with left-sided sciatica COMPARISON: 08/28/2011 Procedure Note Jluio César Huitron MD - 1 XR LUMBAR [...] extension. JULIO CÉSAR HUITRON MD SYSTEM ID: [id number] Ana Jacobs PA-C [facility] ORDER TRELL documented in this encounter Visit Diagnoses Diagnosis Acute bilateral low back pain with left- sided sciatica documented in this encounter Care Teams Grain Origination Specialist Relationship Specialty Start Date End Date Idalmis Sloan PCP - General Family Practice 11/04/13 documented as of this encounter
--- OUTSIDE RECORDS SUMMARY | 2022-01-02 14:55 | XMS_ITS | Encounter Summary ---
:1950 Author Organization [place] Address [address] [place] [address] Care Team Providers Name Role Phone Idalmis Sloan Primary Care Provider Ana Jacobs PA-C Unavailable Reason for Referral Diagnostic Imaging XR (Routine) - Closed Specialty Diagnoses / Procedures Referred By Contact Refer red To Contact Diagnoses Acute bilateral low back pain with left-sided sciatica Lumbar radiculopathy Madhav Matute MD Procedures XR Lumbar Epidural Injection Incl Imaging [address] [place] [address] Referral ID Status Reason Start Date Expiration Date Visits Requ ested Visits Authorized [id number] Closed 11/19/2020 11/19/2021 1 1 Reason for Visit Reason Comments RECHECK Lumbar Encounter Details Date Type Department Care Team Description 11/19/2020 Office Visit [facility] Madhav Melton Acute darrell ateral low back pain with left-sided sciatica (Primary Dx); [facility] Neurosurgery MD [place] Lumbar radiculopathy Clinic [place] [address] MARY[address]ELSON [address] [facility] [address] [place] [phone] Social History Tobacco Use Types Packs/Day Years [...] after this timeframe. o You can call [facility] ([facility]) to schedule your injection at [phone] ??? We will work on obtaining your DEXA scan results for Dr. Matute to review. ??? Dr. Matute would like to see you back in the clinic for follow up one month after your injection. Please call the number below to schedule. Please call us if you have any further questions or concerns. [facility] Clinic documented in this encounter [...] SARAH/Minnie November 19, 2020 to fax number [phone] Right Fax confirmed at 1615 PM documented [...] unspecified documented in this encounter Care Teams Sap Basis Consultant Relationship Specialty Start Date End Date Idalmis Sloan PCP - General Family Practice 11/04/13 Ana Jacobs PA-C Assigned Neuroscience 11/04/20 12/01/20 [facility] Provider [address] [address] documented as of this encounter
--- OUTSIDE RECORDS SUMMARY | 2022-01-02 14:55 | XMS_ITS | Encounter Summary ---
:1950 Author Organization [place] Address Formerly [facility] [place] [address] Care Team Providers Name Role Phone Idalmis Sloan Primary Care Provider Reason for Referral Diagnostic Imaging XR (Routine) - Closed Specialty Diagnoses / Procedures Referred By Contact Refer red To Contact Diagnoses Acute bilateral low back pain with left-sided sciatica Ana Jacobs PA-C Procedures XR Lumbar Bending Only 2/3 Views [facility] [place] [address] Referral ID Status Reason Start Date Expiration Date Visits Requ ested Visits Authorized [id number] Closed 10/29/2020 10/29/2021 1 1 Diagnostic Imaging XR (Routine) - Closed Specialty Diagnoses / Procedures Referred By Contact Refer red To Contact Diagnoses Acute bilateral low back pain with left-sided sciatica Ana Jacobs PA-C Procedures XR Spine Complete Scoliosis 2 Views [facility] [place] [address] Referral ID Status Reason Start Date Expiration Date Visits Requ ested Visits Authorized [id number] Closed 10/29/2020 10/29/2021 [address] Scan (Routine) - Closed Specialty Diagnoses / Procedures Referred By Contact Refer red To Contact Diagnoses Acute bilateral low back pain with left-sided sciatica Ana Jacobs PA-C Procedures CT Lumbar Spine w/o Contrast [facility] [place] [address] [place] [address] Referral ID Status Reason Start Date Expiration Date Visits Requ ested Visits Authorized [id number] Closed 10/29/2020 10/29/2021 1 1 Reason for Visit Reason Comments Consult Low back pain; L hip pain Neurologic Problem Encounter Details Date Type Department Care Team Description 10/29/2020 Office Visit [facility] [place] [address] [place] [address] Acute bilateral low back pain with left- sided sciatica (Primary Dx); [facility] Neurosurgery Ana Jacobs PA-C [facility] [address] [id number] Lumbar radiculopathy Clinic [place] [address] [place] [address] [address] [place] [phone] Social History Tobacco Use Types Packs/Day Years [...] will need to call to schedule. Call [place] radiology scheduling for your procedure: For scheduling in the [place] ([facility], and [place]) call [phone] or [phone] For scheduling at [facility] ([facility], [facility], [facility]), call [phone] or [phone] For scheduling in the [place] ([facility]) call [phone] or [phone] -Recommend scoliosis films in addition to standing XR neutral/flexion/extension -Recommend following up once all imaging has been obtained to review and go over next Ana Jacobs PA-C [facility] Neurosurgery [address] [place] [address] documented in this encounter Progress Notes Ana [...] None of these modalities have provided anysignificant long-term relief. Krys's Sachin had prior back surgery [...] agreed to call our office back at [phone] to further discuss possible surgical interventions or [...] seek being evaluated. Respectfully, Ana Jacobs PA-C [facility] Neurosurgery [address] [address] Exam, imaging, and plan reviewed by Dr. [...] MR 06/22/2020. TORRES RIVAS MD SYSTEM ID: ??[id number] Narrative 11/09/2020 9:[address] LUMBAR [...] MR 06/22/2020. TORRES RIVAS MD SYSTEM ID: [id number] Ana COULTER-C IMG CT ORDERABLES XR Lumbar [...] extension. JULIO CÉSAR HUITRON MD SYSTEM ID: ??[id number] Narrative 10/29/2020 4:29 PM CDT XR LUMBAR [...] extension. JULIO CÉSAR HUITRON MD SYSTEM ID: [id number] Ana Jacobs PA-C IMG DIAGNOSTIC IMAGING ORDER [...] sciatica documented in this encounter Care Teams Costume Draper Relationship Specialty Start Date End Date Idalmis Sloan PCP - General Family Practice 11/04/13 documented as of this encounter
--- OUTSIDE RECORDS SUMMARY | 2022-01-02 14:55 | XMS_ITS | Encounter Summary ---
:1950 Author Organization [place] Address [address] [place] [address] Care Team Providers Name Role Phone Idalmis Sloan Primary Care Provider Encounter Details Date Type Department Care Team Description 04/06/2019 [facility] ([facility] [address] Dx) [address] [address] [address] [place] [address] (Work) [phone] Social History Tobacco Use Types Packs/Day Years Used Date Smoking Tobacco: Never Smokeless Tobacco: Never Sex Assigned at Date Recorded Not on file documented as of this encounter Plan of Treatment Not on filedocumented as of this encounter Procedures Procedure Name Priority Date/Time Associated Diagnosis Comme [facility] ZZ THERAPEUTIC Routine 04/06/2019 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
--- OUTSIDE RECORDS SUMMARY | 2022-01-02 14:55 | XMS_ITS | Encounter Summary ---
:1950 Author Organization [place] Address [address] [place] [address] Care Team Providers Name Role Phone Idalmis [...] Observation Dept [address] [place], [place] [address] Phone: Referral ID Status Reason Start Date Expiration Date Visits Requ ested Visits Authorized [id number] 1 1 Encounter Details Date Type Department Care Team Description 12/[facility] Caleb Dawn PA-C [facility] [address] [place], [place] [id number] Constipation with Fecal impaction; 12/18/2020 [facility] Observation Amando Ross MD [facility] [address] [place] [address] Stercoral colitis; Dept Lisandro Crawford MD [address] [place], [place] [id number] Coronary artery calcification; [address] Generalized [place] [address] Social History Tobacco Use Types [...] Brar PA-C - 12/18/2020 10:20 AM CDT [facility] Hospitalist Discharge Summary Date of Admission: [...] minutes discharging this patient. Uma Brar PA-C [facility] OBSERVATION DEPT [address] [facility] [address] Physical Exam Vital Signs: Temp: 97.6 ??F [...] EXAM: CT ABDOMEN PELVIS W CONTRAST LOCATION: [facility] DATE/TIME: 12/16/2020 11:23 PM INDICATION: Diverticulitis [...] Sig Dispensed Refills Start Date End Date Calcium Carbonate-Vitamin Take 1 tablet by mouth 0 D (CALCIUM-CARB 600 + D 2 times daily PO) diclofenac (VOLTAREN) 1 % Apply 2-4 g topically 0 12/06/2020 topical gel 2 times daily as needed esomeprazole (NEXIUM) 20 Take 20 mg by mouth [address] capsule daily Take 30-60 minutes before eating. furosemide (LASIX) 40 MG Take 40 mg by mouth 0 tablet daily HYDROcodone-acetaminophen Take 1 tablet by mouth 0 (NORCO) 5-325 MG tablet 3 times daily as needed for severe pain latanoprost (XALATAN) Place 1 drop into both 0 0.005 % ophthalmic eyes At Bedtime solution methadone (DOLOPHINE) 5 Take 5 mg by mouth 2 0 MG tablet times daily methocarbamol (ROBAXIN) Take 2 tablets by 0 11/15 500 MG tablet mouth 2 times daily as needed montelukast (SINGULAIR) Take 1 tablet by mouth 0 10/18/2020 10 MG tablet At Bedtime multivitamin w/minerals Take 1 tablet by mouth 0 (THERA-VIT-M) tablet daily olopatadine (PATANOL) 0.1 Place 1 drop into [...] as 8.6-50 MG tablet needed for constipation simvastatin (ZOCOR) 20 MG Take 10 mg by mouth 0 tablet every other day At PM spironolactone Take 25 mg by mouth 0 11/27/2020 (ALDACTONE) 25 MG tablet every morning traZODone (DESYREL) 50 MG Take 50 mg by mouth 0 tablet nightly as needed for sleep WIXELA INHUB 250-50 Inhale 1 puff into the 0 10/02 MCG/DOSE inhaler lungs daily albuterol (PROAIR Inhale 2 puffs into 0 HFA/PROVENTIL the lungs every 4 HFA/VENTOLIN HFA) 108 (90 hours as needed for Base) MCG/ACT inhaler shortness of breath / dyspnea or wheezing documented as of this encounter Progress Notes [...] order SW consult): Home w/ Facility name: sales person: - Cheikh Activity level at baseline: [...] Crawford MD - 12/17/2020 2:17 AM CDT [facility] History and Physical - Hospitalist [...] Code Status: Full Code Lisandro Crawford MD [facility] Securely message with the Dafitiole (learn more here) Text page via [employer] Paging/Directory Chief Complaint Diarrhea History is obtained [...] EXAM: CT ABDOMEN PELVIS W CONTRAST LOCATION: [facility] DATE/TIME: 12/16/2020 11:23 PM INDICATION: Diverticulitis [...] opioid use. Rectal disimpaction unsuccessful. Success with Dowell lady enema and Relistor. Now with large [...] Mejia RN - 12/17/2020 1:14 AM CDT [facility] ED Nurse Handoff Report Krys [...] 1. Lift room needed: No. Bariatric: No Weapons Engineer Needed: No Isolation: No. Infection: Not Applicable. [...] Status --------- ------ CBC with platelets and d...[[id number]] Abnormal Final result Please view results for [...] Quinolones Sulfa Drugs Lorazepam Medications: Nexium Lasix [place] Methadone Zocor Trazodone Florastor Past Medical [...] Status --------- ------ CBC with platelets and d...[[id number]] Abnormal Final result Please view results for [...] Impression & Plan Medical Decision Making: Krys Mohser is a 70 year old female with [...] to near baseline physical activity: Yes Server Manager Nurse Safe discharge environment identified: Yes Barriers [...] for discharge by consultants (if involved): N/A Server Manager Nurse Safe discharge environment identified: Yes, home w/ Barriers to discharge: Yes Entered by: Elfego Randall 12/18/2020 5:51 AM Vitals are Temp: 97.9 ??F (36.6 ??C) Temp src: Oral BP: (!) 158/98 Pulse: 79 Resp: 20 SpO2: 95 %. Patient is alert and oriented. Up SBA w/walker. On a regular diet. 8/10 chronic back and left hip pain. On scheduled methadone and prn [place]. PIV SL. Continuing supportive cares. Likely [...] for discharge by consultants (if involved): N/A Server Manager Nurse Safe discharge environment identified: Yes, home [...] ice pack. On scheduled methadone with prn [place] for chronic pain. PIV SL. Ambulated [...] for discharge by consultants (if involved): N/A Server Manager Nurse Safe discharge environment identified: Yes, home w/ Barriers to discharge: Yes Entered by: Elfego Randall 12/17/2020 11:27 PM Vitals are Temp: 98.4 ??F (36.9 ??C) Temp src: Oral BP: 110/76 Pulse: 84 Resp: 16 SpO2: 96 %. Patient is Alert and Oriented x4. Up SBA w/walker. On a regular diet. Reports 9/10 rectal discomfort. Ice applied. On scheduled methadone. Prn [place] also given. PIV SL. Up to [...] 7. Provider specific discharge goals met: yes Server Manager Nurse Safe discharge environment identified: Yes Barriers [...] 7. Provider specific discharge goals met: Yes Server Manager Nurse Safe discharge environment identified: Yes Barriers to discharge: Yes, does not feel able to get up and use the toilette so many times Entered by: Reggie Langford 12/17/2020 12:58 PM Please review provider order for any additional goals. Nurse to notify provider when observation goals have been met and patient is ready for discharge. Pharmacy-Admission Medication History - Lazara Fontenot, [facility] - 12/17/2020 10:24 AM CDT Admission medication history interview status for this patient is complete. See [facility] admission navigator for allergy information, prior to admission medications and immunization status. Medication history interview done, indicate source(s): Patient Medication history resources (including written lists, pill bottles, clinic record): Sure Scripts fill record Pharmacy: [facility] Changes made to MACHINE CLOTHING MAN medication list: Added: latanoprost, Patanol eye drops, [...] on Movantik. Patient has Medicare D through [facility]. Movantik: Not covered. Relistor: Not covered. Amitiza: $47/mo. Dea Torres, Starch And Prosize Mixer/Liaison, Discharge Pharmacy [phone] Plan of Care - Reggie Langford RN - 12/17/2020 9:02 AM CDT PRIMARY DIAGNOSIS: dehydration/weakness OUTPATIENT/OBSERVATION GOALS TO BE MET BEFORE DISCHARGE: 1. Stable vital signs Yes 2. Tolerating diet:Yes 3. Pain controlled with oral pain medications: Yes 4. Positive bowel sounds: Yes 5. Voiding without difficulty: Yes 6. Able to ambulate: Yes 7. Provider specific discharge goals met: Yes Server Manager Nurse Safe discharge environment identified: Yes Barriers [...] to near baseline physical activity: No Server Manager Nurse Safe discharge environment identified: Yes Barriers [...] diet. C/o 8/10 left shoulder pain, PRN [place] administered. NS running at 100mL/hr. C/o [...] Code Phon e Number [place] [address] Care Lab [address] Lab (1st floor, no room number) [...] City/State/ZIP Code [place] [phone] Care Lab [address] Lab (1st floor, no room number) [...] Address City/State/ZIP Code [place] [address] Care Lab [address] Lab (1st floor, no room number) [...] exposure or clinical presentation sugges ts COVID-19. ??[facility] are certified under the Clinical Laborat ory Improvement Amendments of 1988 (CLIA-88) as qualified to perform moderate and/or high complexity laboratory testing. Caleb Dawn PA-C LAB - MICRO GENERAL ORDERAB LES Performing Organization Address City/State/[place] [address] [facility] [address] [facility] (1st floor, no room number) [...] EXAM: CT ABDOMEN PELVIS W CONTRAST LOCATION: [facility] DATE/TIME: 12/16/2020 11:23 PM INDICATION: Diverticulitis [...] EXAM: CT ABDOMEN PELVIS W CONTRAST LOCATION: [facility] DATE/TIME: 12/16/2020 11:23 PM INDICATION: Diverticulitis [...] platelets and differential (12/16/2020 9:38 PM CDT) [facility] Method Time Signature WBC Count 11.1 [...] LAB - BLOOD ORDERABLES Performing Organization Address City/[facility]/[place] [phone] Care Lab [address] Lab (1st floor, no room number) [...] LAB - BLOOD ORDERABLES Performing Organization Address City/[facility]/[place] [address] Care Lab [address] Lab (1st floor, no room number) (ABNORMAL) Comprehensive metabolic panel (12/16/2020 9:38 PM CDT) [facility] Method Time Signature Sodium 134 133 [...] City/State/ZIP Code Ph[place] [address] Care Lab [address] Lab [...] [phone] (New Bag - Provider: Cristina rFaga, SANTOS)0148 (Stopped - Provider: Clark Madison RN) [...] documented as of this encounter Care Teams Prison Guard Relationship Specialty Start Date End Date Idalmis Sloan PCP - General Family Practice 11/04/13 Madhav Matute MD Assigned Neuroscience 12/02/[address] BE[place] Provider [address] [place] [address] documented as of this encounter
--- OUTSIDE RECORDS SUMMARY | 2022-01-02 14:55 | XMS_ITS | Encounter Summary ---
:1950 Author Organization [place] Address [address] [place] [address] Care Team Providers Name Role Phone Idalmis Sloan Primary Care Provider Encounter Details Date Type Department Care Team Description 03/30/2019 Therapy Visit [facility] [place], Lumbar pain (Primary Rehabilitation Services POLICY CHANGE CLERK Dx) [facility] [address] [facility] [address] [place] [address] Social History Tobacco Use Types Packs/Day Years Used Date Smoking Tobacco: Never Smokeless Tobacco: Never Sex Assigned at Date Recorded Not on file documented as of this encounter Plan of Treatment Not on filedocumented as of this encounter Procedures Procedure Name Priority Date/Time Associated Diagnosis Comme nts ZZC THERAPEUTIC Routine 03/30/2019 3:56 PM COOLER WORKER Lumbar pain ACTIVITIES ZZ THERAPEUTIC Routine 03/30/2019 3:56 PM COOLER WORKER Lumbar pain EXERCISES documented in this encounter Visit Diagnoses Diagnosis Lumbar pain - Primary Lumbago documented in this encounter Care Teams Shaker Operator Relationship Specialty Start Date End Date Idalmis Sloan PCP - General Family Practice 11/04/13 documented as of this encounter
--- OUTSIDE RECORDS SUMMARY | 2022-01-02 14:55 | XMS_ITS | Encounter Summary ---
:1950 Author Organization [place] Address [address] [place] [address] Care Team Providers Name Role Phone Idalmis [...] on filedocumented in this encounter Care Teams Hair Preparer Relationship Specialty Start Date End Date Idalmis Sloan PCP - General Family Practice 11/04/13 documented as of this encounter
--- OUTSIDE RECORDS SUMMARY | 2022-01-02 14:55 | XMS_ITS | Encounter Summary ---
:1950 Author Organization [place] Address [facility] 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 Functionally has improved. T PROMOTIONS COORDINATOR Adiel Ramirez 04/14/2019 2:30 PM CST Assessment/Plan: [...] and time spent performing 1:1 timed codes. T PROMOTIONS COORDINATOR documented in this encounter Miscellaneous Notes Addendum Note - Adiel Ramirez - 04/14/2019 2:30 PM EVENT PROMOTIONS COORDINATOR Addended by: ADIEL RAMIREZ on: 04/15/2019 11:09 AM Modules accepted: Orders T PROMOTIONS COORDINATOR documented in this encounter Plan of Treatment Not on filedocumented as of this encounter Procedures Procedure Name Priority Date/Time Associated Diagnosis Comme [facility] Z THERAPEUTIC Routine 04/15/2019 10:52 AM Lumbar pain ACTIVITIES EVENT PROMOTIONS COORDINATOR documented in this encounter Visit Diagnoses Diagnosis Lumbar pain - Primary Lumbago documented in this encounter Care Teams Rod Mill Operator Relationship Specialty Start Date End Date Idalmis Sloan PCP - General Family Practice 11/04/13 documented as of this encounter
--- OUTSIDE RECORDS SUMMARY | 2022-01-02 14:55 | XMS_ITS | Encounter Summary ---
:1950 Author Organization [place] Address [facility] [place] [address] Care Team Providers Name Role Phone Idalmis [...] on filedocumented in this encounter Care Teams Pattern Hanger Relationship Specialty Start Date End Date Idalmis Sloan PCP - General Family Practice 11/04/13 Ana Jacobs PA-C Assigned Neuroscience 11/04/20 12/01/20 [facility] Provider [address] [id number] documented as of this encounter
--- OUTSIDE RECORDS SUMMARY | 2022-01-02 14:55 | XMS_ITS | Encounter Summary ---
:1950 Author Organization [place] Address [address] [place] [address] Care Team Providers Name Role Phone Idalmis Sloan Primary Care Provider Ana Jacobs PA-C Unavailable Reason for Referral Diagnostic Imaging CT Scan (Routine) - Closed Specialty Diagnoses / Procedures Referred By Contact Refer red To Contact Diagnoses Acute bilateral low back pain with left-sided sciatica Ana Jacobs PA-C Procedures CT Lumbar Spine w/o Contrast [facility] [address] [place] [address] Referral ID Status Reason Start Date Expiration Date Visits Requ ested Visits Authorized [id number] Closed 10/29/2020 10/29/2021 1 1 Reason for Visit Diagnostic Imaging CT Scan (Routine) - Closed Specialty Diagnoses / Procedures Referred By Contact Refer red To Contact Diagnoses Acute bilateral low back pain with left-sided sciatica Ana Jacobs PA-C Procedures CT Lumbar Spine w/o Contrast [facility] [place] [address] Referral ID Status Reason Start Date Expiration Date Visits Requ ested Visits Authorized [id number] Closed 10/29/2020 10/29/2021 1 1 Encounter Details Date Type Department Care Team Description 11/08/2020 [facility] VIELKA Alcaraz back pain with [address] [facility] left-sided sciatica [facility] [address] [address] [phone] [address] [address] Social History Tobacco Use Types Packs/Day Years [...] Dispensed Refills Start Date End Date Calcium Take 1 tablet by 0 Carbonate-Vitamin D mouth 2 times daily (CALCIUM-CARB 600 + D PO) esomeprazole (NEXIUM) 20 Take 20 mg by mouth [address] capsule daily Take 30-60 minutes before eating. HYDROcodone-acetaminophe Take 1 tablet by 0 n (NORCO) 5-325 MG mouth 3 times daily tablet as needed for severe pain latanoprost (XALATAN) Place 1 drop into 0 021 0.005 % ophthalmic both eyes At Bedtime solution methadone (DOLOPHINE) 5 Take 5 mg by mouth 2 0 MG tablet times daily montelukast (SINGULAIR) Take 1 tablet by 0 2020 10 MG tablet mouth At Bedtime multivitamin w/minerals Take 1 tablet by 0 (THERA-VIT-M) tablet mouth daily simvastatin (ZOCOR) 20 Take 10 mg by mouth 0 MG tablet every other day At PM traZODone (DESYREL) 50 Take 50 mg by mouth 0 MG tablet nightly as needed for sleep WIXELA INHUB 250-50 Inhale 1 puff into 0 10/30/19 21 MCG/DOSE inhaler the lungs daily albuterol (PROAIR Inhale 2 puffs into 0 HFA/PROVENTIL the lungs every 4 HFA/VENTOLIN HFA) 108 hours as needed for (90 Base) MCG/ACT shortness of breath inhaler / dyspnea or wheezing cephALEXin (KEFLEX) 500 Take 1 capsule (500 [...] MR 06/22/2020. TORRES RIVAS MD SYSTEM ID: ??[id number] Narrative 11/09/2020 9:[address] LUMBAR [...] MR 06/22/2020. TORRES RIVAS MD SYSTEM ID: [id number] Ana Jacobs PA-C IMG CT ORDERABLES documented in this encounter Visit Diagnoses Diagnosis Acute bilateral low back pain with left- sided sciatica documented in this encounter Care Teams Programming Internship Relationship Specialty Start Date End Date Idalmis Sloan PCP - General Family Practice 11/04/13 Ana Jacobs PA-C Assigned Neuroscience 11/04/20 12/01/20 [facility] Provider [address] [address] documented as of this encounter
--- OUTSIDE RECORDS SUMMARY | 2022-01-02 14:55 | XMS_ITS | Encounter Summary ---
:1950 Author Organization [place] Address [facility] [place] [address] Care Team Providers Name Role Phone Idalmis [...] on filedocumented in this encounter Care Teams Tobacco Sweeper Relationship Specialty Start Date End Date Idalmis Sloan PCP - General Family Practice 11/04/13 Ana Jacobs PA-C Assigned Neuroscience 11/04/20 12/01/20 [facility] Provider [address] [id number] documented as of this encounter
--- OUTSIDE RECORDS SUMMARY | 2022-01-02 14:55 | XMS_ITS | Encounter Summary ---
:1950 Author Organization [place] Address [address] [place] [address] Care Team Providers Name Role Phone Idalmis [...] in this encounter Care Teams Director Of Real Estate Relationship Specialty Start Date End Date Idalmis Sloan PCP - General Family Practice 11/04/13 documented as of this encounter
--- OUTSIDE RECORDS SUMMARY | 2022-01-02 14:55 | XMS_ITS | Encounter Summary ---
:1950 Author Organization [place] Address [address] [place] [address]. [place] [address] Care Team Providers Name Role Phone Idalmis Sloan Primary Care Provider Reason for Visit Diagnostic Imaging XR (Routine) - Closed Specialty Diagnoses / Procedures Referred By Contact Refer red To Contact Diagnoses Acute bilateral low back pain with left-sided sciatica Ana Jacobs PA-C Procedures XR Spine Complete Scoliosis 2 Views [facility] [address] [facility] [address] [place] [address] Referral ID Status Reason Start Date Expiration Date Visits Requ ested Visits Authorized [id number] Closed 10/29/2020 10/29/2021 1 1 Encounter Details Date Type Department Care Team Description 10/29/2020 Ancillary Procedure M [facility] Ana Jacobs Acu te bilateral low Sports and VIELKA Alcaraz back pain with [facility] left-side d sciatica [facility] [address] [facility] [address] [facility] [address] [place] [address] [address] [id number] Social History Tobacco Use Types Packs/Day Years [...] sciatica documented in this encounter Care Teams Aspnet Developer Relationship Specialty Start Date End Date Idalmis Sloan PCP - General Family Practice 11/04/13 documented as of this encounter
--- OUTSIDE RECORDS SUMMARY | 2022-01-02 14:56 | XMS_ITS | Encounter Summary ---
:1950 Author Organization [place] Address [address] [place] [address] Care Team Providers Name Role Phone Idalmis [...] on filedocumented in this encounter Care Teams Group Reservations Coordinator Relationship Specialty Start Date End Date Idalmis Sloan PCP - General Family Practice 11/04/13 documented as of this encounter
--- OUTSIDE RECORDS SUMMARY | 2022-01-02 14:56 | XMS_ITS | Encounter Summary ---
:1950 Author Organization [place] Address [address] [place] [address] Care Team Providers Name Role Phone Idamlis Sloan Primary Care Provider Encounter Details Date Type Department Care Team Description 03/16/2019 Travel Social History Tobacco Use Types Packs/Day Years Used Date Smoking Tobacco: Never Smokeless Tobacco: Never Sex Assigned at Date Recorded Not on file documented as of this encounter Plan of Treatment Not on filedocumented as of this encounter Visit Diagnoses Not on filedocumented in this encounter Care Teams Advertising Intern Relationship Specialty Start Date End Date Idalmis Sloan PCP - General Family Practice 11/04/13 documented as of this encounter
--- OUTSIDE RECORDS SUMMARY | 2022-01-02 14:56 | XMS_ITS | Encounter Summary ---
:1950 Author Organization [place] Address [address] [place] [address] Care Team Providers Name Role Phone Idalmis Sloan Primary Care Provider Encounter Details Date Type Department Care Team Description [facility] [address] Dx) [address] [place] [address] [address] [address] [place] [address] (Work) [phone] Social History Tobacco Use Types Packs/Day Years Used Date Smoking Tobacco: Never Smokeless Tobacco: Never Sex Assigned at Date Recorded Not on file documented as of this encounter Plan of Treatment Not on filedocumented as of this encounter Procedures Procedure Name Priority Date/Time Associated Diagnosis Comme nts [facility] THERAPEUTIC Routine 02/21/2019 6:20 PM SNIPPER Lumbar pain ACTIVITIES [facility] THERAPEUTIC Routine 02/21/2019 6:20 PM SNIPPER Lumbar pain EXERCISES documented in this encounter Visit Diagnoses Diagnosis Lumbar pain - Primary Lumbago documented in this encounter Care Teams It Technical Architect Relationship Specialty Start Date End Date Idalmis Sloan PCP - General Family Practice 11/04/13 documented as of this encounter
--- OUTSIDE RECORDS SUMMARY | 2022-01-02 14:56 | XMS_ITS | Encounter Summary ---
:1950 Author Organization [place] Address [address] [place] [address] Care Team Providers Name Role Phone Idalmis [...] on filedocumented in this encounter Care Teams Parking Supervisor Relationship Specialty Start Date End Date Idalmis Sloan PCP - General Family Practice 11/04/13 documented as of this encounter
--- OUTSIDE RECORDS SUMMARY | 2022-01-02 14:56 | XMS_ITS | Encounter Summary ---
:1950 Author Organization [place] Address [facility] [place] [address] Care Team Providers Name Role Phone Idalmis Sloan Primary Care Provider Encounter Details Date Type Department Care Team Description 02/16/2019 Therapy Visit [facility] Jensen Hernandez, PT Lumbar pain Rehabilitation Services [address] [facility] [address] [place] [address] [place] [address] Social History Tobacco Use Types Packs/Day Years Used Date Smoking Tobacco: Never Smokeless Tobacco: Never Sex Assigned at Date Recorded Not on file documented as of this encounter Progress Notes Jensen Hernandez, PT - 02/16/2019 3:20 PM CST [facility] Initial Evaluation Subjective: History of lumbar pain for years which has included 3 previous surgeries to her lower back. Pt can'trecall the dates of her surgeries. Pt noted pain of unknown etiology approximately 6 -8 weeks ago. Pt referred by MD for physical therapy on 12-29-18 The history is provided by the patient. No school speech language pathologist was used. Type of problem: Lumbar Condition [...] Left: Moderate loss Right: Moderate loss Side Marana: Left: Right: Strength: weak lower abdominals and [...] and time spent performing 1:1 timed codes. WEB DEVELOPER documented in this encounter Plan of Treatment Not on filedocumented as of this encounter Procedures Procedure Name Priority Date/Time Associated Diagnosis Comme [facility] THERAPEUTIC Routine 02/16/2019 6:42 PM NET WEB DEVELOPER Lumbar pain EXERCISES documented in this encounter Visit Diagnoses Diagnosis Lumbar pain Lumbago documented in this encounter Care Teams Sliver Lap Tender Relationship Specialty Start Date End Date Idalmis Sloan PCP - General Family Practice 11/04/13 documented as of this encounter
--- OUTSIDE RECORDS SUMMARY | 2022-01-02 14:56 | XMS_ITS | Encounter Summary ---
:1950 Author Organization [place] Address [address] [place] [address]. [place] [address] Care Team Providers Name Role Phone Idalmis Sloan Primary Care Provider Reason for Visit [facility] Physical Therapy (Routine) - Closed Specialty Diagnoses / Procedures Referred By Contact Refer red To Contact Physical Therapy Diagnoses >4, Back / Mercy Pedro @ [facility] Pain / BCBS Mercy Vasquez, SALES FORCE ADMINISTRATOR Daniel Shi, PT Procedures SP[facility] [address] [place] [address] [place] [address] [place] [address] Referral ID Status Reason Start Date Expiration Date Visits Requ ested Visits Authorized [id number] Closed 07/22/2017 03/01/2018 18 Encounter Details Date Type Department Care Team Description 02/16/2018 [facility] Rehabilitation Services [address] [facility] [id number] [place] [address] [address] [address] [address] [place] [address] (Work) [phone] Social History Tobacco Use Types Packs/Day Years Used Date Smoking Tobacco: Never Smokeless Tobacco: Never Sex Assigned at Date Recorded Not on file documented as of this encounter Plan of Treatment Not on filedocumented as of this encounter Visit Diagnoses Not on filedocumented in this encounter Care Teams Um Specialist Relationship Specialty Start Date End Date Idalmis Sloan PCP - General Family Practice 11/04/13 documented as of this encounter
--- OUTSIDE RECORDS SUMMARY | 2022-01-02 14:56 | XMS_ITS | Encounter Summary ---
:1950 Author Organization [place] Address [address] [place] [address] Care Team Providers Name Role Phone Idalmis [...] filedocumented in this encounter Care Teams Grinder Lap Relationship Specialty Start Date End Date Idalmis Sloan PCP - General Family Practice 11/04/13 documented as of this encounter
--- OUTSIDE RECORDS SUMMARY | 2022-01-02 14:56 | XMS_ITS | Encounter Summary ---
:1950 Author Organization [place] Address [facility] [place] [address] Care Team Providers Name Role Phone Idalmis Sloan Primary Care Provider Reason for Visit Reason Comments Wound Infection Back Pain Nausea Diarrhea Auth/Cert Specialty Diagnoses / Procedures Referred By Contact Refer red To Contact Med Surg Diagnoses Cellulitis of right foot H/O Clostridium difficile infection Diarrhea, unspecified type Cellulitis of right foot Observation Dept [address] [place], [place] [address] Phone: Referral ID Status Reason Start Date Expiration Date Visits Requ ested Visits Authorized [id number] 1 1 Encounter Details Date Type Department Care Team Description 11/04/2018 - [facility] Codie Morales MD [facility] [address] [place] [id number] Cellulitis of right foot; 11/06/2018 [facility] Observation Chuck Cook MD [address] [place] [address] Diarrhea, unspecified type; Dept H/O Clostridium difficile in fection [address] [place] [address] Social History Tobacco Use Types [...] Branch PA-C - 11/06/2018 8:24 AM CDT [facility] Hospitalist Discharge Summary Date of Admission: [...] difficile than other alternatives. Pain controlled with [employer] medications. No signs of sepsis. Diarrhea resolved while hospitalized, if recurrent suggest further outpatient work-up. Consultations This Hospital Stay None Code Status Full Code Time Spent on this Encounter I, Dayna Branch PA-C, personally saw the patient today and spent greater than 30 minutes discharging this patient. Dayna Branch PA-C [facility] Physical Exam Vital Signs: Temp: 97.5 [...] MG tablet nightly as needed for sleep albuterol (PROAIR Inhale 2 puffs into 0 [...] Stephens PA-C - 11/05/2018 12:30 PM CDT [facility] Observation Unit Hospitalist Progress Note Name: [...] regimen of Methadone 5 mg BID and Bisbee 5-325 mg PRN TID #Diarrhea: reported 12 episodes of diarrhea the day prior to admission with only 2 episodes since arriving to the hospital. C diff negative. If increased diarrhea consider checking enteric panel. #Stable medical conditions: hypertension, hypercholesterolemia, GERD, PVD, hepatitis C, necessary [employer] medications have been resumed. DVT Prophylaxis: Ambulate [...] contact Infection Prevention with any questions/concerns at *[phone]. Erica Jolly, VIKASH Grisel Samson RN - 11/04/2018 10:04 PM CDT ROOM # 205 Living Situation (if not independent, order SW consult): Home with Facility name: breakdown person: Cheikh [phone] Activity level at baseline: Independent Activity level [...] Cook MD - 11/04/2018 9:58 PM CDT [facility] History and Physical Hospitalist Service Chuck [...] Full Code Primary Care Physician: Idalmis Sloan [phone] Chief Complaint: Swelling and redness of right [...] Samson RN - 11/04/2018 8:36 PM CDT [facility] ED Nurse Handoff Report Krys Mosher [...] 1. Lift room needed: No. Bariatric: No Telecommunications Network Engineer Needed: No Isolation: yes. Infection: C-Diff Pending. [...] She also complains of back pain. ervin Brcieño MD - 11/04/2018 3:52 PM CDT History [...] provider's statements to me. Diana López 11/04/2018 [facility] EMERGENCY DEPARTMENT Mervin Morales MD 11/04/18 1602 documented in this encounter Miscellaneous Notes Plan [...] Yes, SBA via gait belt and walker. Hotel Services Sales Representative Nurse Safe discharge environment identified: Yes Barriers [...] Return to near baseline physical activity: Yes Hotel Services Sales Representative Nurse Safe discharge environment identified: Yes Barriers [...] Return to near baseline physical activity: Yes Hotel Services Sales Representative Nurse Safe discharge environment identified: Yes Barriers [...] Pain status: Improved-controlled with oral pain medications. Bisbee dose ordered 1x 4. Return to near baseline physical activity: Yes Up with SBA 1 walker Hotel Services Sales Representative Nurse Safe discharge environment identified: Yes Barriers [...] L foot,pain at 8 sharp and shooting. Bisbee last at 1645, hx of chronic pain. thanks Plan of Care - Elizabeth Chong RN - 11/05/2018 3:31 PM CDT PRIMARY DIAGNOSIS: GENERIC NURSING OUTPATIENT/OBSERVATION GOALS TO BE MET BEFORE DISCHARGE: ADLs back to baseline: Yes Activity and level of assistance: Up with standby assistance. Pain status: Improved-controlled with oral pain medications. Return to near baseline physical activity: No Hotel Services Sales Representative Nurse Safe discharge environment identified: Yes Barriers [...] Return to near baseline physical activity: Yes Hotel Services Sales Representative Nurse Safe discharge environment identified: Yes Barriers [...] Return to near baseline physical activity: No Hotel Services Sales Representative Nurse Safe discharge environment identified: Yes Barriers [...] to continue with antibiotics and manage symptoms. Hotel Services Sales Representative Nurse Safe discharge environment identified: Yes Barriers [...] to continue with antibiotics and manage symptoms. Hotel Services Sales Representative Nurse Safe discharge environment identified: Yes Barriers to discharge: No Entered by: Grisel Samson 11/05/2018 Please review provider order for any additional goals. Nurse to notify provider when observation goals have been met and patient is ready for discharge. Pharmacy-Admission Medication History - Lazara Fontenot RPH - 11/04/2018 11:35 PM CDT 11/05 Addendum: per clarification with patient, added Bisbee 5-325 mg (1 tab TID prn) to [employer] med list. Left sticky note to provider to review additional med. Lazara Fontenot PharmCecyD. Admission medication history interview status for this patient is complete. See [facility] admission navigator for allergy information, prior to admission medications and immunization status. Medication history interview source(s):Patient Medication history resources (including written lists, pill bottles, clinic record):[facility] records from [facility] Changes made to [facility] medication list: Added: all Medication reconciliation/reorder [...] Signature Potassium 3.8 3.4 - 5.3 11/05/2018 [facility] mmol/L 5:50 PM CDT HOSPITAL Specimen Anatomical Collection Method Collection Time Receive d Time (Source) Location / / Volume Laterality Blood specimen 11/05/2018 5:27 PM 019 5:28 (specimen) CDT PM CDT Kelly Stephens PA-C LAB - BLOOD ORDERABLES Performing Organization Address City/State/ZIP Code Phon e Number [facility] [address] [place], [place] [address] [facility] [address] [phone] (ABNORMAL) CBC with platelets (11/05/2018 6:42 AM CDT) Analysis Performed At Patho logist Time Signature WBC 8.8 4.0 - 11.0 11/05/2018 [facility] 10e9/L 7:04 AM [facility] RBC Count 3.60 (L) 3.8 - 5.2 11/05/2018 [facility] 10e12/L 7:04 AM [facility] Hemoglobin 12.3 11.7 - 11/05/2018 [facility] 15.7 g/dL 7:04 AM [facility] Hematocrit 36.4 35.0 - 11/05/2018 [facility] 47.0 % 7:04 AM [facility] MCV 101 (H) 78 - 100 11/05/2018 [facility] fl 7:04 AM [facility] MCH 34.2 (H) 26.5 - 11/05/2018 [facility] 33.0 pg 7:04 AM [facility] MCHC 33.8 31.5 - 11/05/2018 [facility] 36.5 g/dL 7:04 AM [facility] RDW 12.9 10.0 - 11/05/2018 [facility] 15.0 % 7:04 AM [facility] Platelet Count 191 150 - 450 11/05/2018 [facility] 10e9/L 7:04 AM [facility] Specimen Anatomical Collection Method Collection Time Receive d Time (Source) Location / / Volume Laterality Blood specimen 11/05/2018 6:42 AM 019 6:43 (specimen) CDT AM CDT Chuck Cook MD LAB - BLOOD ORDERABLES Performing Organization Address City/State/ZIP Code Phon e Number [facility] [address] [place] [address] HOSPITAL [facility] [address] [phone] (ABNORMAL) Basic metabolic panel (11/05/2018 6:42 AM CDT) P athologist Signature Sodium 137 133 - 144 11/05/2018 [facility] mmol/L 7:16 AM [facility] Potassium 3.3 (L) 3.4 - 5.3 11/05/2018 [facility] mmol/L 7:16 AM [facility] Chloride 101 94 - 109 11/05/2018 [place] mmol/L 7:16 AM [facility] Carbon Dioxide 30 20 - 32 11/05/2018 [place] mmol/L 7:22 AM [facility] Anion Gap 6 3 - 14 11/05/2018 [place] mmol/L 7:22 AM [facility] Glucose 84 70 - 99 11/05/2018 [place] mg/dL 7:22 AM [facility] Urea Nitrogen 7 7 - 30 11/05/2018 [place] mg/dL 7:22 AM [facility] Creatinine 0.79 0.52 - 11/05/2018 [place] 1.04 mg/dL 7:22 AM [facility] GFR Estimate 77 >60 11/05/2018 [place] mL/min/{1. 7:22 AM [facility] 73_m2} HOSPITAL Comment: Non GFR Calc Starting 02/16/2018, serum creatinine ba sed estimated GFR (eGFR) will be calculated using the Chronic Kidney Dise [facility] Epidemiology Collaboration (CKD-EPI) equation. GFR Estimate If 89 >60 mL/min/{1.73_m2} 11/05/2018 7: 22 AM [facility] Comment: GFR Calc Starting 02/16/2018, serum creatinine ba sed estimated GFR (eGFR) will be calculated using the Chronic Kidney Dise [facility] Epidemiology Collaboration (CKD-EPI) equation. Calcium 8.2 (L) 8.5 - 10.1 mg/dL 11/05/2018 7:22 AM [facility] Specimen Anatomical Collection Method Collection Time Receive d Time (Source) Location / / Volume Laterality Blood specimen 11/05/2018 6:42 AM 019 6:43 (specimen) CDT AM CDT Chuck Cook MD LAB - BLOOD ORDERABLES Performing Organization Address City/State/ZIP Code Phon e Number [place] [address] [place] [address] [facility] [address] [place], [place] [address], [facility] [phone] [place] [address] [place] [address], [facility] Clostridium difficile toxin B PCR (11/04/2018 7:49 PM CDT) [facility] Method Time Signature Specimen Feces 11/04/2018 [facility] 7:49 PM CDT [facility] C Diff Toxin B Negative NEG^Negat 11/05/2018 [facility] sung 12:21 AM CDT [facility] Comment: Negative: Clostridium difficile target D NA sequences NOT detected, presumed negative for Clostridium difficile toxin B or the number of bacteria present may be below the limit of detection for the test. FDA approved assay performed using [employer] GeneXpert real-time PCR. A negative result does [...] Organization Address City/State/ZIP Code Phon e Number [address] [address] [facility] [address] [place] [address], [facility] [phone] Blood culture (11/04/2018 4:35 PM CDT) [facility] Method Time Signature Specimen Blood Right [...] MICRO GENERAL ORDERABL ES Performing Organization Address City/[facility]/ZIP Code Phon e Number INFECTIOUS DISEASES [address] [place] [address] DIAGNOSTIC LABORATORY, [facility] INFECTIOUS DISEASES [address] [place] [address], [place] [facility] (ABNORMAL) Basic metabolic panel (11/04/2018 4:35 PM CDT) P athologist Signature Sodium 136 133 - 144 11/04/2018 [place] mmol/L 7:48 PM [facility] Potassium 3.0 (L) 3.4 - 5.3 11/04/2018 [place] mmol/L 7:48 PM [facility] Chloride 97 94 - 109 11/04/2018 [place] mmol/L 7:48 PM [facility] Carbon Dioxide 31 20 - 32 11/04/2018 [facility] mmol/L 7:54 PM [facility] Anion Gap 8 3 - 14 11/04/2018 [place] mmol/L 7:54 PM [facility] Glucose 74 70 - 99 11/04/2018 [place] mg/dL 7:54 PM [facility] Urea Nitrogen 8 7 - 30 11/04/2018 [place] mg/dL 7:54 PM [facility] Creatinine 0.81 0.52 - 11/04/2018 [facility] 1.04 mg/dL 7:54 PM [facility] GFR Estimate 75 >60 11/04/2018 [place] mL/min/{1. 7:54 PM [facility] 73_m2} [facility] Comment: Non GFR Calc Starting 02/16/2018, serum creatinine ba sed estimated GFR (eGFR) will be calculated using the Chronic Kidney Dise [facility] Epidemiology Collaboration (CKD-EPI) equation. GFR Estimate If 87 >60 mL/min/{1.73_m2} 11/04/2018 7: 54 PM [facility] Comment: GFR Calc Starting 02/16/2018, serum creatinine ba sed estimated GFR (eGFR) will be calculated using the Chronic Kidney Dise [facility] Epidemiology Collaboration (CKD-EPI) equation. Calcium 9.0 8.5 - 10.1 mg/dL 11/04/2018 7:54 PM [facility] Specimen Anatomical Collection Method Collection Time Receive d Time (Source) Location / / Volume Laterality Blood specimen 11/04/2018 4:35 PM 019 7:31 (specimen) CDT PM CDT Mervin Morales MD LAB - BLOOD ORDERABLES Performing Organization Address City/State/ZIP Code Phon e Number [facility] [address] [place], [place] [address] [facility] [address] [place], [place] [address] [place] [address] (ABNORMAL) CBC with platelets differential (11/04/2018 4:35 PM CDT) [facility] gist Method Time Signature WBC 9.9 4.0 - 11/04/2018 [facility] 11.0 7:35 PM [facility] 10e9/L [facility] RBC Count 4.22 3.8 - 5.2 11/04/2018 [facility] 10e12/L 7:35 PM [facility] Hemoglobin 14.3 11.7 - 11/04/2018 [facility] 15.7 g/dL 7:35 PM [facility] Hematocrit 42.9 35.0 - 11/04/2018 [facility] 47.0 % 7:35 PM [facility] MCV 102 (H) 78 - 100 11/04/2018 [facility] fl 7:35 PM [facility] MCH 33.9 (H) 26.5 - 11/04/2018 [facility] 33.0 pg 7:35 [facility] MCHC 33.3 31.5 - 11/04/2018 [facility] 36.5 g/dL 7:35 PM [facility] RDW 13.3 10.0 - 11/04/2018 [facility] 15.0 % 7:35 PM [facility] Platelet Count 233 150 - 450 11/04/2018 [facility] 10e9/L 7:35 PM [facility] Diff Method Automated 11/04/2018 [facility] Method 7:35 PM [facility] % Neutrophils 69.4 % 11/04/2018 [facility] 7:35 PM [facility] % Lymphocytes 23.2 % 11/04/2018 [facility] 7:35 PM [facility] % Monocytes 5.9 % 11/04/2018 [facility] 7:35 PM [facility] % Eosinophils 0.8 % 11/04/2018 [facility] 7:35 PM [facility] % Basophils 0.4 % 11/04/2018 [facility] 7:35 PM [facility] % Immature 0.3 % 11/04/2018 [facility] Granulocytes 7:35 PM [facility] Nucleated RBCs 0 0 /100 11/04/2018 [place] 7:35 PM [facility] Absolute 6.8 1.6 - 8.3 11/04/2018 [place] Neutrophil 10e9/L 7:35 PM [facility] Absolute 2.3 0.8 - 5.3 11/04/2018 [place] Lymphocytes 10e9/L 7:35 PM [facility] Absolute 0.6 0.0 - 1.3 11/04/2018 [place] Monocytes 10e9/L 7:35 PM [facility] Absolute 0.1 0.0 - 0.7 11/04/2018 [place] Eosinophils 10e9/L 7:35 PM [facility] Absolute 0.0 0.0 - 0.2 11/04/2018 [place] Basophils 10e9/L 7:35 PM [facility] Abs Immature 0.0 0 - 0.4 11/04/2018 [place] Granulocytes 10e9/L 7:35 PM [facility] Absolute 0.0 11/04/2018 [place] Nucleated RBC 7:35 PM [facility] Specimen Anatomical Collection Method Collection Time Receive d Time (Source) Location / / Volume Laterality Blood specimen 11/04/2018 4:35 PM 019 7:31 (specimen) CDT [facility] Mervin Morales MD LAB - BLOOD ORDERABLES Performing Organization Address City/State/ZIP Code Phon e Number [place] [address] [phone] documented in this encounter Visit Diagnoses Diagnosis [...] mg, Intravenous, ONCE, Administer over 2-5 Minutes, [facility] 11/04/18 at 1959, For 1 dose, [...] tablet 10 mEq 1002 (Given - Provider: Jsei Callahan RN)1400 (Canceled Entry - Provider: Orders [...] 12 HOURS PRN, jim sea, vomiting, Starting [facility] 11/04/18 at 2149, This is Step [...] Oral, EVERY 6 HOURS PRN, vomiting, Starting [facility] 11/04/18 at 2149
This is Step 2 of nausea and vomiting management. Give if nausea not resolved 15 minutes after giving ondansetron (ZOFRAN). If nausea not resolved in 15 minutes, go to Step 3 metoclopramide (REGLAN), if ordered.
Or prochlorperazine (COMPAZINE) Suppository 12.5 mgJump to med 12.5 mg, Rectal, EVERY 12 HOURS PRN, jim sea, vomiting, Starting [facility] 11/04/18 at 2149
This is Step 2 of nausea and vomiting management. Give if nausea not resolved 15 minutes after giving ondanset rei (ZOFRAN). If nausea not resolved in 15 minutes, go to Step 3 metoclopramide (REGLAN), if ordered.
documented in this encounter Care Teams Email Producer Relationship Specialty Start Date End Date Idalmis Sloan PCP - General Family Practice 11/04/13 documented as of this encounter
--- OUTSIDE RECORDS SUMMARY | 2022-01-02 14:56 | XMS_ITS | Encounter Summary ---
:1950 Author Organization [place] Address [address] [place] [address] Care Team Providers Name Role Phone Idalmis [...] on filedocumented in this encounter Care Teams Peoplesoft Developer Relationship Specialty Start Date End Date Idalmis Sloan PCP - General Family Practice 11/04/13 documented as of this encounter
--- OUTSIDE RECORDS SUMMARY | 2022-01-02 14:56 | XMS_ITS | Encounter Summary ---
:1950 Author Organization [place] Address [address] [facility] [place] [address] Care Team Providers Name Role Phone Idalmis Sloan Primary Care Provider Reason for Visit KIMBER Physical Therapy (Routine) - Closed Specialty Diagnoses / Procedures Referred By Contact Refer red To Contact Tray Setter Diagnoses >4 Lefft side hip pain, LBP / Idalmis Sloan MD@ [place] / [facility] /referral exists 20V thru 03.01.18(MSG) Idalmis Sloan Linda, PTA / Physical Therapy Procedures SPINE FOLLOW UP [facility] [address] [place] [address] Referral ID Status Reason Start Date Expiration Date Visits Requ ested Visits Authorized [id number] Closed 03/16/2018 03/01/2019 20 18 Encounter Details Date Type Department Care Team Description 03/16/[address] [facility] [place], Hip josefina n, left Rehabilitation Services [facility] [address] [facility] [address] [place] [address] Social History Tobacco Use Types Packs/Day Years Used Date Smoking Tobacco: Never Smokeless Tobacco: Never Sex Assigned at Date Recorded Not on file documented as of this encounter Plan of Treatment Not on filedocumented as of this encounter Procedures Procedure Name Priority Date/Time Associated Diagnosis Comme [facility] THERAPEUTIC Routine 03/17/2018 7:48 AM SUPERVISOR/PORT DIRECTOR Hip pain, left EXERCISES documented in this encounter Visit Diagnoses Diagnosis Hip pain, left Pain in joint, pelvic region and thigh documented in this encounter Care Teams Parts Identification Technician Relationship Specialty Start Date End Date Idalmis Sloan PCP - General Family Practice 11/04/13 documented as of this encounter
--- OUTSIDE RECORDS SUMMARY | 2022-01-02 14:56 | XMS_ITS | Encounter Summary ---
:1950 Author Organization [place] Address [address] [place] [address] Care Team Providers Name Role Phone Idalmis Sloan Primary Care Provider Encounter Details Date Type Department Care Team Description 03/09/2019 Therapy Visit [facility] [place], Lumbar pain (Primary Rehabilitation Services DOOR FITTER Dx) [facility] [address] [address] [place] [address] Social History Tobacco Use Types Packs/Day Years Used Date Smoking Tobacco: Never Smokeless Tobacco: Never Sex Assigned at Date Recorded Not on file documented as of this encounter Plan of Treatment Not on filedocumented as of this encounter Procedures Procedure Name Priority Date/Time Associated Diagnosis Comme nts Z THERAPEUTIC Routine 03/09/2019 3:43 PM TURKEY ROLL MAKER Lumbar pain ACTIVITIES ZZ THERAPEUTIC Routine 03/09/2019 3:43 PM TURKEY ROLL MAKER Lumbar pain EXERCISES documented in this encounter Visit Diagnoses Diagnosis Lumbar pain - Primary Lumbago documented in this encounter Care Teams Caterers Helper Relationship Specialty Start Date End Date Idalmis Sloan PCP - General Family Practice 11/04/13 documented as of this encounter
--- OUTSIDE RECORDS SUMMARY | 2022-01-02 14:56 | XMS_ITS | Encounter Summary ---
:1950 Author Organization [place] Address [address] [facility] [place] [address] Care Team Providers Name Role Phone Idalmis Sloan Primary Care Provider Reason for Visit KIMBER Physical Therapy (Routine) - Closed Specialty Diagnoses / Procedures Referred By Contact Refer red To Contact Reinsurance Analyst Diagnoses >4 Lefft side hip pain, LBP / Idalmis Sloan MD@ [email or web address] / [facility] /referral exists 20V thru 03.01.18(MSG) Idalmis Sloan Linda, PTA / Physical Therapy Procedures SPINE FOLLOW UP [facility] [address] [place] [address] Referral ID Status Reason Start Date Expiration Date Visits Requ ested Visits Authorized [id number] Closed 03/16/2018 03/01/2019 20 18 Encounter Details Date Type Department Care Team Description 03/22/2018 Therapy Visit [facility] [place], Hip josefina n, left Rehabilitation Services [facility] [place] [address] [address] [place] [address] Social History Tobacco Use Types [...] Procedure Name Priority Date/Time Associated Diagnosis Comme [facility] THERAPEUTIC Routine 03/23/2018 12:46 PM Hip pain, 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
--- OUTSIDE RECORDS SUMMARY | 2022-01-02 14:56 | XMS_ITS | Encounter Summary ---
:1950 Author Organization [place] Address [address] [place] [address] Care Team Providers Name Role Phone Idalmis [...] on filedocumented in this encounter Care Teams Forging Machine Hand Relationship Specialty Start Date End Date Idalmis Sloan PCP - General Family Practice 11/04/13 documented as of this encounter
--- OUTSIDE RECORDS SUMMARY | 2022-01-02 14:56 | XMS_ITS | Encounter Summary ---
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 Dx) [facility] [address] [facility] [address] [place] [address] Social History Tobacco Use Types Packs/Day Years Used Date Smoking Tobacco: Never Smokeless Tobacco: Never Sex Assigned at Date Recorded Not on file documented as of this encounter Plan of Treatment Not on filedocumented as of this encounter Procedures Procedure Name Priority Date/Time Associated Diagnosis Comme nts Z THERAPEUTIC Routine 03/23/2019 3:35 PM TEAM ASSEMBLY LINE MACHINE OPERATOR Lumbar pain ACTIVITIES ZZ THERAPEUTIC Routine 03/23/2019 3:35 PM TEAM ASSEMBLY LINE MACHINE OPERATOR Lumbar pain EXERCISES documented in this encounter Visit Diagnoses Diagnosis Lumbar pain - Primary Lumbago documented in this encounter Care Teams Regulatory Consultant Relationship Specialty Start Date End Date Idalmis Sloan PCP - General Family Practice 11/04/13 documented as of this encounter
--- OUTSIDE RECORDS SUMMARY | 2022-01-02 14:56 | XMS_ITS | Encounter Summary ---
:1950 Author Organization [place] Address [address] [place] [address] Care Team Providers Name Role Phone Idalmis [...] on filedocumented in this encounter Care Teams Mis Specialist Relationship Specialty Start Date End Date Idalmis Sloan PCP - General Family Practice 11/04/13 documented as of this encounter
--- OUTSIDE RECORDS SUMMARY | 2022-01-02 14:57 | XMS_ITS | Encounter Summary ---
:1950 Author Organization [place] Address [facility] [place] [address] Care Team Providers Name Role Phone Idalmis Sloan Primary Care Provider Encounter Details Date Type Department Care Team Description 11/12[facility]2015 [facility] Other postprocedural status(V45.89); Rehabilitation [address] [place] Sprain of l eft rotator cuff capsule, subsequent encounter Services [place] [facility] [address] [place] [address] [address] [address] [place] [address] (Work) [phone] Social History Tobacco Use Types Packs/Day Years [...] abd), MMT: L ER=3-/5, flex=3-/5, Abd=3-/5, PROM: ctlq=013, joint creptation noted with painful movement, Zjw=218, ER=45 ASSESSMENT/PLAN Updated problem list and treatment [...] Name Priority Date/Time Associated Diagnosis Comme nts [facility] NEUROMUSCULAR Routine 11/12/2015 3:40 PM Other postprocedu ral RE-EDUCATION CDT status(V45.89) Sprain of left rotator cuff capsule, subsequent encounter [facility] THERAPEUTIC Routine 11/12/2015 3:40 PM Other postprocedura l EXERCISES CDT status(V45.89) Sprain of left rotator cuff capsule, subsequent encounter documented in this encounter Visit Diagnoses Diagnosis Other postprocedural status(V45.89) Other postprocedural status Sprain of left rotator cuff capsule, sub sequent encounter documented in this encounter Care Teams Brush Head Maker Relationship Specialty Start Date End Date Idalmis Sloan PCP - General Family Practice 11/04/13 documented as of this encounter
--- OUTSIDE RECORDS SUMMARY | 2022-01-02 14:57 | XMS_ITS | Encounter Summary ---
:1950 Author Organization [place] Address [facility] [place] [address] Care Team Providers Name Role Phone Idalmis Sloan Primary Care Provider Reason for Visit KIMBER Physical Therapy (Routine) - Denied Specialty Diagnoses / Procedures Referred By Contact Refer red To Contact Physical Therapy Diagnoses >4 s/p L rot tiff / mehdi lorenzana @ ortho / [employer] 30 visits per year Mehdi Gaffney MD Judd, Laurie, PT Procedures EXTREMITY INITIAL [facility]OP[facility]IC AND [id number] [place] [address] [facility] [address] [place], [place] [id number] [place] [address] Referral ID Status Reason Start Date Expiration Date Visits V isits Requested Authorized KIMBER/WC/PT/L Denied 06/11/2015 06/10/2016 14 0 SHLDR POST [id number] Encounter Details Date Type Department Care Team Description 06/11[facility] Sprain of left rotator cuff capsule (Apoorva womack Dx); Rehabilitation [address] MARY[place] Other postp rocedural status(V45.89) Services [place] [address] [place] [address] [address] [address] [place] [address] (Work) [phone] Social History Tobacco Use Types Packs/Day Years [...] Sheet for this information) Short term and [facility] goals: (See Goal Flow Sheet for this [...] Procedures Procedure Name Priority Date/Time Associated Diagnosis Hans brissa ZZC THERAPEUTIC Routine 06/11/2015 1:42 PM Sprain of left rota tor EXERCISES CDT cuff capsule Other postprocedural status(V45.89) documented in this encounter Visit Diagnoses Diagnosis Sprain of left rotator cuff capsule - Pr imary Rotator cuff (capsule) sprain Other postprocedural status(V45.89) Other postprocedural status documented in this encounter Care Teams Stacker Operator Relationship Specialty Start Date End Date Idalmis Sloan PCP - General Family Practice 11/04/13 documented as of this encounter
--- OUTSIDE RECORDS SUMMARY | 2022-01-02 14:57 | XMS_ITS | Encounter Summary ---
:1950 Author Organization [place] Address [address] [place] [address] Care Team Providers Name Role Phone Idalmis Sloan Primary Care Provider Encounter Details Date Type Department Care Team Description 11/30/[address] [facility] [place] Saeed PT Sprain of left rotator cuff capsule, sub sequent encounter (Primary Dx); Rehabilitation [address] [place] Other postp rocedural status(V45.89) Services [place] [address] [place] [address] [address] [address] [place] [address] (Work) [phone] Social History Tobacco Use Types Packs/Day Years Used Date Smoking Tobacco: Never Assessed Sex Assigned at Date Recorded Not on file documented as of this encounter Plan of Treatment Not on filedocumented as of this encounter Procedures Procedure Name Priority Date/Time Associated Diagnosis Comme nts [facility] NEUROMUSCULAR Routine 12/04/2015 1:24 PM Sprain of left RE-EDUCATION CDT rotator cuff capsule, subsequent encounter [facility] THERAPEUTIC EXERCISES Routine 12/04/2015 1:24 PM Sprain of left CDT rotator cuff capsule, subsequent encounter documented in this encounter Visit Diagnoses Diagnosis Sprain of left rotator cuff capsule, sub sequent encounter - Primary Other postprocedural status(V45.89) Other postprocedural status documented in this encounter Care Teams Microwave Radio Technician Relationship Specialty Start Date End Date Idalmis Sloan PCP - General Family Practice 11/04/13 documented as of this encounter
--- OUTSIDE RECORDS SUMMARY | 2022-01-02 14:57 | XMS_ITS | Encounter Summary ---
:1950 Author Organization [place] Address [facility] [place] [address] Care Team Providers Name Role Phone Idalmis Sloan Primary Care Provider Encounter Details Date Type Department Care Team Description 10/02/[address] 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: (See Goal Flow Sheet for [...] Priority Date/Time Associated Diagnosis Comme nts [facility] MANUAL THER Routine 10/02/2015 4:55 PM CDT Cervical radicu litis TECH,1+REGIONS,EA 15 MIN ZZC THERAPEUTIC Routine 10/02/2015 4:55 PM CDT Cervical radicu litis EXERCISES documented in this encounter Visit Diagnoses Diagnosis Cervical radiculitis - Primary Brachial neuritis or radiculitis nos documented in this encounter Care Teams Social Sciences Instructor Relationship Specialty Start Date End Date Idalmis Sloan PCP - General Family Practice 11/04/13 documented as of this encounter
--- OUTSIDE RECORDS SUMMARY | 2022-01-02 14:57 | XMS_ITS | Encounter Summary ---
:1950 Author Organization [place] Address [facility] [address] Care Team Providers Name Role Phone Idalmis Sloan Primary Care Provider Reason for Visit KIMBER Physical Therapy (Routine) - Denied Specialty Diagnoses / Procedures Referred By Contact Refer red To Contact Physical Therapy Diagnoses >4 s/p L rot tiff / mehdi lorenzana @ ortho / [employer]BS 30 visits per year Mehdi Gaffney MD Judd, Laurie, PT Procedures [facility] AND [address] [place] [address] [facility] [address] [place] [id number] [place] [address] Referral ID Status Reason Start Date Expiration Date Visits V isits Requested Authorized KIMBER/WC/PT/L Denied 06/11/2015 06/10/2016 14 0 SHLDR POST [id number] Encounter Details Date Type Department Care Team Description 07/03/2015 Therapy Visit [facility] [place] Wheeler, PT Sprain of left rotator cuff capsule, sub sequent encounter (Primary Dx); Rehabilitation [address] MARYANA Other postp rocedural status(V45.89) Services [place] [address] [facility] [address] [place] [address] [address] [address] [place] [address] (Work) [phone] Social History Tobacco Use Types Packs/Day Years [...] status documented in this encounter Care Teams Post Framer Relationship Specialty Start Date End Date Idalmis Sloan PCP - General Family Practice 11/04/13 documented as of this encounter
--- OUTSIDE RECORDS SUMMARY | 2022-01-02 14:57 | XMS_ITS | Encounter Summary ---
:1950 Author Organization [place] Address [facility] [place] [address] Care Team Providers Name Role Phone Idalmis Sloan Primary Care Provider Reason for Visit KIMBER Physical Therapy (Routine) - Denied Specialty Diagnoses / Procedures Referred By Contact Refer red To Contact Physical Therapy Diagnoses >4 s/p L rot tiff / mehdi lorenzana @ ortho / [employer]BS 30 visits per year Mehdi Gaffney MD Judd, Laurie, PT Procedures [facility] AND [id number] [place] [address] [facility] [address] [place] [id number] [place] [address] Referral ID Status Reason Start Date Expiration Date Visits V isits Requested Authorized KIMBER/WC/PT/L Denied 06/11/2015 06/10/2016 14 0 SHLDR POST [id number] Encounter Details Date Type Department Care Team Description 08/16/2015 Therapy Visit [facility] [place] Wheeler, PT Sprain of left rotator cuff capsule, sub sequent encounter (Primary Dx); Rehabilitation [address] MARYANA Other postp rocedural status(V45.89) Services [place] [address] [facility] [address] [place] [address] [address] [address] [place] [address] (Work) [phone] Social History Tobacco Use Types Packs/Day Years Used Date Smoking Tobacco: Never Assessed Sex Assigned at Date Recorded Not on file documented as of this encounter Plan of Treatment Not on filedocumented as of this encounter Procedures Procedure Name Priority Date/Time Associated Diagnosis Comme nts [facility] NEUROMUSCULAR Routine 08/16/2015 5:04 PM Sprain of left ro tator RE-EDUCATION CDT cuff capsule, subsequent encounter Other postprocedural status(V45.89) [facility] THERAPEUTIC Routine 08/16/2015 5:04 PM Sprain of left rota tor EXERCISES CDT cuff capsule, subsequent encounter Other postprocedural status(V45.89) documented in this encounter Visit Diagnoses Diagnosis Sprain of left rotator cuff capsule, sub sequent encounter - Primary Other postprocedural status(V45.89) Other postprocedural status documented in this encounter Care Teams Mycology Teacher Relationship Specialty Start Date End Date Idalmis Sloan PCP - General Family Practice 11/04/13 documented as of this encounter
--- OUTSIDE RECORDS SUMMARY | 2022-01-02 14:57 | XMS_ITS | Encounter Summary ---
:1950 Author Organization [place] Address [address] [place] [address]. [place] [address] Care Team Providers Name Role Phone Idalmis Sloan Primary Care Provider Reason for Visit KIMBER Physical Therapy (Routine) - Denied Specialty Diagnoses / Procedures Referred By Contact Refer red To Contact Physical Therapy Diagnoses >4 s/p L rot tiff / mehdi lorenzana @ ortho / [employer]BS 30 visits per year Mehdi Gaffney MD Judd, Laurie, PT Procedures [facility] AND [id number] [place] [address] [facility] [address] [place] [id number] Referral ID Status Reason Start Date Expiration Date Visits V isits Requested Authorized KIMEBR/WC/PT/L Denied 06/11/2015 06/10/2016 14 0 SHLDR POST [id number] Encounter Details Date Type Department Care Team Description 06/21/2015 Therapy [facility] [place], Sprain of left rotator cuff capsule, subsequent encounter (Primary Dx); Rehabilitation Services COR[place] Melissa Otnatacha r postprocedural status(V45.89) [facility] [address] [place] [address] Social History Tobacco Use Types [...] Comme nts [facility] THERAPEUTIC Routine 06/22/2015 10:17 AM Sprain of left rot ator EXERCISES CDT cuff capsule, subsequent encounter Other postprocedural status(V45.89) [facility] HOT OR COLD PACKS Routine 06/22/2015 10:17 AM Sprain of le ft rotator THERAPY CDT cuff capsule, subsequent encounter Other postprocedural status(V45.89) documented in this encounter Visit Diagnoses Diagnosis Sprain of left rotator cuff capsule, sub sequent encounter - Primary Other postprocedural status(V45.89) Other postprocedural status documented in this encounter Care Teams Head Packager Relationship Specialty Start Date End Date Idalmis Sloan PCP - General Family Practice 11/04/13 documented as of this encounter
--- OUTSIDE RECORDS SUMMARY | 2022-01-02 14:57 | XMS_ITS | Encounter Summary ---
:1950 Author Organization [place] Address [address] [facility] [place] [address] Care Team Providers Name Role Phone Idalmis Sloan Primary Care Provider Reason for Visit Reason Onset Date Comments Outreach 04/14/2017 UC FOLLOW UP - COMPL ETED Encounter Details Date Type Department Care Team Description 04/14/2017 Telephone [facility] Laith Oliver ( FOLLOW UP Urgent Care Lacy Craig MD - COMPLETED) [address] [facility] [address] [place], [place], [place] [id number] [phone] Social History Tobacco Use Types Packs/Day Years [...] others? YES Comments: Appointment scheduled? NO Location? ASSISTANT documented in this encounter Plan of Treatment Not on filedocumented as of this encounter Visit Diagnoses Not on filedocumented in this encounter Care Teams Shovel Mechanic Relationship Specialty Start Date End Date Idalmis Sloan PCP - General Family Practice 11/04/13 documented as of this encounter
--- OUTSIDE RECORDS SUMMARY | 2022-01-02 14:57 | XMS_ITS | Encounter Summary ---
:1950 Author Organization [place] Address [address] [place] [address] Care Team Providers Name Role Phone Idalmis Sloan Primary Care Provider Encounter Details Date Type Department Care Team Description 11/16/2015 Therapy Visit [facility] [place] Saeed, PT Cervical radiculitis (Primary Dx); Rehabilitation [address] [place] Sprain of l eft rotator cuff capsule, subsequent encounter; Services [place] [address] Other postprocedural status(V45.89) [facility] [place] [address] [address] [address] [place] [address] (Work) [phone] Social History Tobacco Use Types Packs/Day Years Used Date Smoking Tobacco: Never Assessed Sex Assigned at Date Recorded Not on file documented as of this encounter Plan of Treatment Not on filedocumented as of this encounter Procedures Procedure Name Priority Date/Time Associated Diagnosis Comme [facility] Z THERAPEUTIC Routine 11/19/2015 7:32 AM Cervical radi culitis EXERCISES CDT Sprain of left rotator cuff capsule, subsequent encounter Other postprocedural status(V45.89) documented in this encounter Visit Diagnoses Diagnosis Cervical radiculitis - Primary Brachial neuritis or radiculitis nos Sprain of left rotator cuff capsule, sub sequent encounter Other postprocedural status(V45.89) Other postprocedural status documented in this encounter Care Teams Roping Tender Relationship Specialty Start Date End Date Idalmis Sloan PCP - General Family Practice 11/04/13 documented as of this encounter
--- OUTSIDE RECORDS SUMMARY | 2022-01-02 14:57 | XMS_ITS | Encounter Summary ---
:1950 Author Organization [place] Address [facility] [place] [address] Care Team Providers Name Role Phone Idalmis Sloan Primary Care Provider Reason for Visit KIMBER Physical Therapy (Routine) - Closed Specialty Diagnoses / Procedures Referred By Contact Refer red To Contact Physical Therapy Diagnoses >4, Back / Mercy Vasquez @ [facility] Pain / BCBS Mercy Vasquez, CLINICAL REHABILITATION COORDINATOR Daniel Shi, PT Procedures SPINE INITIAL [facility] PAIN [facility] [address] [place] [address] [place] [address] [place] [address] Referral ID Status Reason Start Date Expiration Date Visits Requ ested Visits Authorized [id number] Closed 07/22/2017 03/01/2018 20 18 Encounter Details Date Type Department Care Team Description 07/29/2017 Therapy Visit [facility] Daniel Shi Lumba go (Primary Rehabilitation Services PT Dx) [place] [facility] [address] [address] [facility] [address] [place] [address] [phone] Social History Tobacco Use Types Packs/Day Years Used Date Smoking Tobacco: Never Smokeless Tobacco: Never Sex Assigned at Date Recorded Not on file documented as of this encounter Progress Notes Anirudh Wells - 07/29/2017 3:10 PM CDT [facility] Initial Evaluation Krys Mosher [...] Sheet for this information) Short term and penitentiary goals: (See Goal Flow Sheet for this [...] Primary documented in this encounter Care Teams Sharepoint Net Developer Relationship Specialty Start Date End Date Idalmis Sloan PCP - General Family Practice 11/04/13 documented as of this encounter
--- OUTSIDE RECORDS SUMMARY | 2022-01-02 14:57 | XMS_ITS | Encounter Summary ---
:1950 Author Organization [place] Address [facility] [place] [address] Care Team Providers Name Role Phone Idalmis Sloan Primary Care Provider Reason for Visit KIMBER Physical Therapy (Routine) - Denied Specialty Diagnoses / Procedures Referred By Contact Refer red To Contact Physical Therapy Diagnoses >4 s/p L rot tiff / mehdi lorenzana @ ortho / BCBS 30 visits per year Mehdi Gaffney MD Judd, Laurie, PT Procedures [facility] AND [id number] [place] [address] [facility] [address] [place] [phone] [place] [id number] Referral ID Status Reason Start Date Expiration Date Visits V isits Requested Authorized KIMBER/WC/PT/L Denied 06/11/2015 06/10/2016 14 0 SHLDR POST [id number] Encounter Details Date Type Department Care Team Description 08/01/2015 Therapy Visit M [facility] [place] Wheeler, PT Sprain of left rotator cuff capsule, sub sequent encounter (Primary Dx); Rehabilitation [address] [place] Other postp rocedural status(V45.89) Services [place] [address] [place] [address] [address] [address] [place] [address] (Work) [phone] Social History Tobacco Use Types Packs/Day Years Used Date Smoking Tobacco: Never Assessed Sex Assigned at Date Recorded Not on file documented as of this encounter Plan of Treatment Not on filedocumented as of this encounter Procedures Procedure Name Priority Date/Time Associated Diagnosis Comme nts [facility] NEUROMUSCULAR Routine 08/02/2015 7:18 AM Sprain of left ro tator RE-EDUCATION CDT cuff capsule, subsequent encounter Other postprocedural status(V45.89) [facility] THERAPEUTIC Routine 08/02/2015 7:18 AM Sprain of left rota tor EXERCISES CDT cuff capsule, subsequent encounter Other postprocedural status(V45.89) documented in this encounter Visit Diagnoses Diagnosis Sprain of left rotator cuff capsule, sub sequent encounter - Primary Other postprocedural status(V45.89) Other postprocedural status documented in this encounter Care Teams Industrial Psychology Professor Relationship Specialty Start Date End Date Idalmis Sloan PCP - General Family Practice 11/04/13 documented as of this encounter
--- OUTSIDE RECORDS SUMMARY | 2022-01-02 14:57 | XMS_ITS | Encounter Summary ---
:1950 Author Organization [place] Address [address] [place] [address]. [place] [address] Care Team Providers Name Role Phone Idalmis Sloan Primary Care Provider Reason for Visit KIMBER Physical Therapy (Routine) - Denied Specialty Diagnoses / Procedures Referred By Contact Refer red To Contact Physical Therapy Diagnoses >4 s/p L rot cuff / mehdi lorenzana @ ortho / BCBS 30 visits per year Mehdi Gaffney MD Judd, Laurie, PT Procedures [facility] AND [id number] [place] [address] [facility] [address] [place] [phone] [place] [phone] Referral ID Status Reason Start Date Expiration Date Visits V isits Requested Authorized KIMBER/WC/PT/L Denied 06/11/2015 06/10/2016 14 0 SHLDR POST [id number] Encounter Details Date Type Department Care Team Description 08/03/2015 Therapy Visit M [facility] Artie, Sprain of left rotator cuff capsule, subsequent encounter (Primary Dx); Rehabilitation Services CORRINA Melissa postprocedural status(V45.89) [facility] [address] [facility] [address] [place] [address] Social History Tobacco Use Types [...] cuff capsule, subsequent encounter Other postprocedural status(V45.89) [facility] NEUROMUSCULAR Routine 08/03/2015 10:32 AM Sprain of left r otator RE-EDUCATION CDT cuff capsule, subsequent encounter Other postprocedural status(V45.89) [facility] THERAPEUTIC Routine 08/03/2015 10:32 AM Sprain of left rot ator EXERCISES CDT cuff capsule, subsequent encounter Other postprocedural status(V45.89) documented in this encounter Visit Diagnoses Diagnosis Sprain of left rotator cuff capsule, sub sequent encounter - Primary Other postprocedural status(V45.89) Other postprocedural status documented in this encounter Care Teams Nitro Worker Relationship Specialty Start Date End Date Idalmis Sloan PCP - General Family Practice 11/04/13 documented as of this encounter
--- OUTSIDE RECORDS SUMMARY | 2022-01-02 14:57 | XMS_ITS | Encounter Summary ---
:1950 Author Organization [place] Address [address] [facility] [address] Care Team Providers Name Role Phone Idalmis Sloan Primary Care Provider Encounter Details Date Type Department Care Team Description 10/02/2015 Telephone [facility] Nu rse Advisors Madelin Brown, RN [address] [place] [phone] Social History Tobacco Use Types Packs/Day [...] on filedocumented in this encounter Care Teams Lap Checker Relationship Specialty Start Date End Date Idalmis Sloan PCP - General Family Practice 11/04/13 documented as of this encounter
--- OUTSIDE RECORDS SUMMARY | 2022-01-02 14:57 | XMS_ITS | Encounter Summary ---
:1950 Author Organization [place] Address [address] [facility] [place] [address] Care Team Providers Name Role Phone Idalmis Sloan Primary Care Provider Reason for Visit Reason Comments Urgent Care Cough cough and sinus pressure, tr eated for bronchitis Encounter Details Date Type Department Care Team Description 04/05/2017 Office Visit [facility] Laith Oliver Acute maxillary Urgent Care Lacy Craig MD sinusitis, recurrence [address] not specified (Primary [facility], [place] [address] Dx) [id number] Social History Tobacco Use Types Packs/Day Years Used Date Smoking Tobacco: Never Smokeless Tobacco: Never Sex Assigned at Date Recorded Not on file documented as of this encounter Last Filed Vital Signs Vital Sign Reading Time Taken Comments Blood Pressure 136/78 04/05/2017 3:01 PM GLUER Pulse 76 04/05/2017 3:01 PM GLUER Temperature 36.9 ??C (98.5 ??F) 04/05/2017 3:01 PM GLUER Respiratory Rate 18 04/05/2017 3:01 PM GLUER Oxygen Saturation 96% 04/05/2017 3:01 PM GLUER Inhaled Oxygen Concentration - - Weight 65.8 kg (145 lb) 04/05/2017 3:01 PM GLUER Height - - Body Mass Index - [...] if getting worse . Laith Oliver MD R documented in this encounter Nursing Notes Ana [...] calculate BMI. Medication Reconciliation: incomplete [place] STICK WELDER R documented in this encounter Plan of Treatment Not on filedocumented as of this encounter Visit Diagnoses Diagnosis Acute maxillary sinusitis, recurrence no t specified - Primary documented in this encounter Care Teams Diversified Crops Ii Farmworker Relationship Specialty Start Date End Date Idalmis Sloan PCP - General Family Practice 11/04/13 documented as of this encounter
--- OUTSIDE RECORDS SUMMARY | 2022-01-02 14:57 | XMS_ITS | Encounter Summary ---
:1950 Author Organization [place] Address [facility] [place] [address] Care Team Providers Name Role Phone Idalmis Sloan Primary Care Provider Reason for Visit KIMBER Physical Therapy (Routine) - Closed Specialty Diagnoses / Procedures Referred By Contact Refer red To Contact Physical Therapy Diagnoses >4, Back / Mercy Pedro @ [facility] Pain / BCBS Mercy Vasquez, LARGE SHEETFED PRESS OPERATOR Daniel Shi, PT Procedures [facility]IAL [facility] [address] [place] [address] [place] [address] [place] [address] Referral ID Status Reason Start Date Expiration Date Visits Requ ested Visits Authorized [id number] Closed 07/22/2017 03/01/2018 20 18 Encounter Details Date Type Department Care Team Description 08/14/2017 Therapy Visit [facility] Jensen Hernandez, PT Lumbago (Primary Dx) Rehabilitation Services [address] [place] [address] DR Bryant Specialty [address] [address] [address] [place] [address] (Work) [phone] Social History Tobacco Use Types Packs/Day Years [...] is being advanced to more complex exercises. JOINERY SETTER OUT/ATC plan: N/A Please refer to the daily [...] nts [facility] NEUROMUSCULAR Routine 08/14/2017 6:01 PM Lumbago RE-EDUCATION CDT [facility] THERAPEUTIC EXERCISES Routine 08/14/2017 6:01 PM Lumbago CDT documented in this encounter Visit Diagnoses Diagnosis Lumbago - Primary documented in this encounter Care Teams Tableau Lead Relationship Specialty Start Date End Date Idalmis Sloan PCP - General Family Practice 11/04/13 documented as of this encounter
--- OUTSIDE RECORDS SUMMARY | 2022-01-02 14:57 | XMS_ITS | Encounter Summary ---
:1950 Author Organization [place] Address [address] [facility] [place] [address] Care Team Providers Name Role Phone Idalmis Sloan Primary Care Provider Encounter Details Date Type Department Care Team Description 06/03/2015 Telephone [facility] Nurse Sabiha Shelton , RN Advisors [address] [place] [address] Social History Tobacco Use Types Packs/Day [...] bone; or pure bloody urine ? NO [place] something pass with urination ? NO Unbearable [...] on filedocumented in this encounter Care Teams Patient Transportation Driver Relationship Specialty Start Date End Date Idalmis Sloan PCP - General Family Practice 11/04/13 documented as of this encounter
--- OUTSIDE RECORDS SUMMARY | 2022-01-02 14:57 | XMS_ITS | Encounter Summary ---
:1950 Author Organization [place] Address [address] [place] [address] Care Team Providers Name Role Phone Idalmis Sloan Primary Care Provider Encounter Details Date Type Department Care Team Description 11/22/2015 Therapy Visit [facility] Sandra Shelton, Sprain of left rotator cuff capsule, subsequent encounter (Primary Dx); Rehabilitation ATC Other postprocedural status(V45.89) Services [facility] Specialty Care [facility] [id number] [place] [id number] [place] [address] [address] [facility] [address] [place] [address] [phone] Social History Tobacco Use Types Packs/Day Years Used Date Smoking Tobacco: Never Assessed Sex Assigned at Date Recorded Not on file documented as of this encounter Plan of Treatment Not on filedocumented as of this encounter Procedures Procedure Name Priority Date/Time Associated Diagnosis Comme nts [facility] NEUROMUSCULAR Routine 11/22/2015 4:54 PM Sprain of left ro tator RE-EDUCATION CDT cuff capsule, subsequent encounter Other postprocedural status(V45.89) [facility] THERAPEUTIC Routine 11/22/2015 4:54 PM Sprain of left rota tor EXERCISES CDT cuff capsule, subsequent encounter Other postprocedural status(V45.89) [facility] HOT OR COLD PACKS Routine 11/22/2015 4:54 PM Sprain of lef t rotator THERAPY CDT cuff capsule, subsequent encounter Other postprocedural status(V45.89) documented in this encounter Visit Diagnoses Diagnosis Sprain of left rotator cuff capsule, sub sequent encounter - Primary Other postprocedural status(V45.89) Other postprocedural status documented in this encounter Care Teams Supervisor Cartography Relationship Specialty Start Date End Date Idalmis Sloan PCP - General Family Practice 11/04/13 documented as of this encounter
--- OUTSIDE RECORDS SUMMARY | 2022-01-02 14:57 | XMS_ITS | Encounter Summary ---
:1950 Author Organization [place] Address [address] 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 GER SUSTAINABILITY documented in this encounter Miscellaneous Notes Addendum Note - Micki Chang, PT - 01/30/2015 3:46 PM MANAGER SUSTAINABILITY Addended by: MICKI CHANG on: 01/30/2015 03:46 PM Modules accepted: Orders GER SUSTAINABILITY documented in this encounter Plan of Treatment [...] region documented in this encounter Care Teams Lumber Straightened Relationship Specialty Start Date End Date Shanta Sloan PCP - General Family Practice 11/04/13 documented as of this encounter
--- OUTSIDE RECORDS SUMMARY | 2022-01-02 14:57 | XMS_ITS | Encounter Summary ---
:1950 Author Organization [place] Address [address] [place] [address] Care Team Providers Name Role Phone Idalmis Sloan Primary Care Provider Encounter Details Date Type Department Care Team Description 09/05/2015 Therapy Visit [facility] [place] Saeed, SHANAE Sprain of left rotator cuff capsule, sub sequent encounter (Primary Dx); Rehabilitation [address] [place] Other postp rocedural status(V45.89) Services [place] [address] [place] [address] [address] [address] [place] [address] (Work) [phone] Social History Tobacco Use Types Packs/Day Years Used Date Smoking Tobacco: Never Assessed Sex Assigned at Date Recorded Not on file documented as of this encounter Plan of Treatment Not on filedocumented as of this encounter Procedures Procedure Name Priority Date/Time Associated Diagnosis Comme nts [facility] NEUROMUSCULAR Routine 09/05/2015 3:16 PM Sprain of left ro tator RE-EDUCATION CDT cuff capsule, subsequent encounter Other postprocedural status(V45.89) [facility] THERAPEUTIC Routine 09/05/2015 3:16 PM Sprain of left rota tor EXERCISES CDT cuff capsule, subsequent encounter Other postprocedural status(V45.89) documented in this encounter Visit Diagnoses Diagnosis Sprain of left rotator cuff capsule, sub sequent encounter - Primary Other postprocedural status(V45.89) Other postprocedural status documented in this encounter Care Teams Special Service Representative Relationship Specialty Start Date End Date Idalmis Sloan PCP - General Family Practice 11/04/13 documented as of this encounter
--- OUTSIDE RECORDS SUMMARY | 2022-01-02 14:57 | XMS_ITS | Encounter Summary ---
:1950 Author Organization [place] Address [address] [place] [address]. [place] [address] Care Team Providers Name Role Phone Idalmis Sloan Primary Care Provider Reason for Visit KIMBER Physical Therapy (Routine) - Denied Specialty Diagnoses / Procedures Referred By Contact Refer red To Contact Physical Therapy Diagnoses >4 s/p L rot tiff / mehdi lorenzana @ ortho / BCBS 30 visits per year Mehdi Gaffney MD Judd, Laurie, PT Procedures [facility] AND [id number] [place] [address] [facility] [address] [place] [id number] Referral ID Status Reason Start Date Expiration Date Visits V isits Requested Authorized KIMBER/WC/PT/L Denied 06/11/2015 06/10/2016 14 0 SHLDR POST [id number] Encounter Details Date Type Department Care Team Description 07/10/2015 Therapy Visit [facility] Artie, Sprain of left rotator cuff capsule, subsequent encounter (Primary Dx); Rehabilitation Services CORRINA Melissa postprocedural status(V45.89) [facility] [address] [facility] [address] [place] [address] Social History Tobacco Use Types Packs/Day Years Used Date Smoking Tobacco: Never Assessed Sex Assigned at Date Recorded Not on file documented as of this encounter Plan of Treatment Not on filedocumented as of this encounter Procedures Procedure Name Priority Date/Time Associated Diagnosis Comme nts [facility] NEUROMUSCULAR Routine 07/11/2015 7:11 AM Sprain of left ro tator RE-EDUCATION CDT cuff capsule, subsequent encounter Other postprocedural status(V45.89) [facility] THERAPEUTIC Routine 07/11/2015 7:11 AM Sprain of left rota tor EXERCISES CDT cuff capsule, subsequent encounter Other postprocedural status(V45.89) documented in this encounter Visit Diagnoses Diagnosis Sprain of left rotator cuff capsule, sub sequent encounter - Primary Other postprocedural status(V45.89) Other postprocedural status documented in this encounter Care Teams Logging Contractor Relationship Specialty Start Date End Date Idalmis Sloan PCP - General Family Practice 11/04/13 documented as of this encounter
--- OUTSIDE RECORDS SUMMARY | 2022-01-02 14:57 | XMS_ITS | Encounter Summary ---
:1950 Author Organization [place] Address [facility] [place] [address] Care Team Providers Name Role Phone Idalmis Sloan Primary Care Provider Reason for Visit KIMBER Physical Therapy (Routine) - Denied Specialty Diagnoses / Procedures Referred By Contact Refer red To Contact Physical Therapy Diagnoses >4 s/p L rot tiff / mehdi lorenzana @ ortho / BCBS 30 visits per year Mehdi Gaffney MD Judd, Laurie, PT Procedures [facility] AND [id number] [place] [address] [facility] [address] [place] [phone] [place] [phone] Referral ID Status Reason Start Date Expiration Date Visits V isits Requested Authorized KIMBER/WC/PT/L Denied 06/11/2015 06/10/2016 14 0 SHLDR POST [id number] Encounter Details Date Type Department Care Team Description 08/21/2015 Therapy Visit M [facility] [place] Wheeler, PT Sprain of left rotator cuff capsule, sub sequent encounter (Primary Dx); Rehabilitation [address] [address] Other postp rocedural status(V45.89) Services [place] [address] [facility] [address] [place] [address] [place] [address] [address] [address] [place] [address] (Work) [phone] Social History Tobacco Use Types Packs/Day Years [...] status documented in this encounter Care Teams Seating Captain Relationship Specialty Start Date End Date Idalmis Sloan PCP - General Family Practice 11/04/13 documented as of this encounter
--- OUTSIDE RECORDS SUMMARY | 2022-01-02 14:57 | XMS_ITS | Encounter Summary ---
:1950 Author Organization [place] Address [facility] [place] [address] Care Team Providers Name Role Phone Idalmis Sloan Primary Care Provider Reason for Visit KIMBER Physical Therapy (Routine) - Denied Specialty Diagnoses / Procedures Referred By Contact Refer red To Contact Physical Therapy Diagnoses >4 s/p L rot tiff / mehdi lorenzana @ ortho / BCBS 30 visits per year Mehdi Gaffney MD Judd, Laurie, PT Procedures [facility] AND [id number] [place] [address] [facility] [address] [place] [phone] Referral ID Status Reason Start Date Expiration Date Visits V isits Requested Authorized KIMBER/WC/PT/L Denied 06/11/2015 06/10/2016 14 0 SHLDR POST [id number] Encounter Details Date Type Department Care Team Description 06/14/[address] [facility] Artie, Sprain of left rotator cuff capsule, subsequent encounter (Primary Dx); Rehabilitation Services CORRINA Melissa postprocedural status(V45.89) [facility] [address] [facility] [address] [place] [address] Social History Tobacco Use Types Packs/Day Years Used Date Smoking Tobacco: Never Assessed Sex Assigned at Date Recorded Not on file documented as of this encounter Plan of Treatment Not on filedocumented as of this encounter Procedures Procedure Name Priority Date/Time Associated Diagnosis Comme [facility] THERAPEUTIC Routine 06/15/2015 6:45 AM Sprain of left rota tor EXERCISES CDT cuff capsule, subsequent encounter Other postprocedural status(V45.89) [facility] HOT OR COLD PACKS Routine 06/15/2015 6:45 AM Sprain of lef t rotator THERAPY CDT cuff capsule, subsequent encounter Other postprocedural status(V45.89) documented in this encounter Visit Diagnoses Diagnosis Sprain of left rotator cuff capsule, sub sequent encounter - Primary Other postprocedural status(V45.89) Other postprocedural status documented in this encounter Care Teams Tooling Specialist Relationship Specialty Start Date End Date Idalmis Sloan PCP - General Family Practice 11/04/13 documented as of this encounter
--- OUTSIDE RECORDS SUMMARY | 2022-01-02 14:57 | XMS_ITS | Encounter Summary ---
:1950 Author Organization [place] Address [facility] [place] [address] Care Team Providers Name Role Phone Idalmis Sloan Primary Care Provider Reason for Visit KIMBER Physical Therapy (Routine) - Denied Specialty Diagnoses / Procedures Referred By Contact Refer red To Contact Physical Therapy Diagnoses >4 s/p L rot tiff / mehdi lorenzana @ ortho / BCBS 30 visits per year Mehdi Gaffney MD Judd, Laurie, PT Procedures EXTREM[facility]IAL [facility]OP[facility]EDIC AND [id number] [place] [address] [facility] [address] [place] [phone] Referral ID Status Reason Start Date Expiration Date Visits V isits Requested Authorized KIMBER/WC/PT/L Denied 06/11/2015 06/10/2016 14 0 SHLDR POST [id number] Encounter Details Date Type Department Care Team Description 08/07/2015 Therapy Visit M [facility] Artie, Sprain of left rotator cuff capsule, subsequent encounter (Primary Dx); Rehabilitation Services CORRINA Melissa r postprocedural status(V45.89) [facility] [address] [place] [address] [place] [address] Social History Tobacco Use Types Packs/Day Years Used Date Smoking Tobacco: Never Assessed Sex Assigned at Date Recorded Not on file documented as of this encounter Plan of Treatment Not on filedocumented as of this encounter Procedures Procedure Name Priority Date/Time Associated Diagnosis Comme nts [facility] NEUROMUSCULAR Routine 08/09/2015 1:35 PM Sprain of left ro tator RE-EDUCATION CDT cuff capsule, subsequent encounter Other postprocedural status(V45.89) [facility] HOT OR COLD PACKS Routine 08/09/2015 [...] status documented in this encounter Care Teams Cabinet Worker Relationship Specialty Start Date End Date Idalmis Sloan PCP - General Family Practice 11/04/13 documented as of this encounter
--- OUTSIDE RECORDS SUMMARY | 2022-01-02 14:57 | XMS_ITS | Encounter Summary ---
:1950 Author Organization [place] Address [facility] [place] [address] Care Team Providers Name Role Phone Idalmis Sloan Primary Care Provider Reason for Visit KIMBER Physical Therapy (Routine) - Denied Specialty Diagnoses / Procedures Referred By Contact Refer red To Contact Physical Therapy Diagnoses >4 s/p L rot tiff / mehdi lorenzana @ ortho / [employer] 30 visits per year Mehdi Gaffney MD Judd, Laurie, PT Procedures EXTREMITY INITIAL ORTHOPAEDIC AND [id number] [place] [address] [facility] [address] [place] [id number] Referral ID Status Reason Start Date Expiration Date Visits V isits Requested Authorized KIMBER/WC/PT/L Denied 06/11/2015 06/10/2016 14 0 SHLDR POST [id number] Encounter Details Date Type Department Care Team Description 06/27/2015 Therapy Visit M [facility] Artie, Sprain of left rotator cuff capsule, subsequent encounter (Primary Dx); Rehabilitation Services CORRINA Melissa r postprocedural status(V45.89) [facility] [address] [facility] [address] [place] [address] Social History Tobacco Use Types Packs/Day Years Used Date Smoking Tobacco: Never Assessed Sex Assigned at Date Recorded Not on file documented as of this encounter Plan of Treatment Not on filedocumented as of this encounter Procedures Procedure Name Priority Date/Time Associated Diagnosis Comme [facility] ZZC THERAPEUTIC Routine 06/27/2015 8:29 PM Sprain of left rota tor EXERCISES CDT cuff capsule, subsequent encounter Other postprocedural status(V45.89) [facility] HOT OR COLD PACKS Routine 06/27/2015 8:29 PM Sprain of lef t rotator THERAPY CDT cuff capsule, subsequent encounter Other postprocedural status(V45.89) documented in this encounter Visit Diagnoses Diagnosis Sprain of left rotator cuff capsule, sub sequent encounter - Primary Other postprocedural status(V45.89) Other postprocedural status documented in this encounter Care Teams Accountant Relationship Specialty Start Date End Date Idalmis Sloan PCP - General Family Practice 11/04/13 documented as of this encounter
--- OUTSIDE RECORDS SUMMARY | 2022-01-02 14:57 | XMS_ITS | Encounter Summary ---
:1950 Author Organization [place] Address [facility] [address] Care Team Providers Name Role Phone Idalmis Sloan Primary Care Provider Reason for Visit KIMBER Physical Therapy (Routine) - Denied Specialty Diagnoses / Procedures Referred By Contact Refer red To Contact Physical Therapy Diagnoses >4 s/p L rot tiff / mehdi lorenzana @ ortho / [employer] 30 visits per year Mehdi Gaffney MD Judd, Laurie, PT Procedures EXTREMITY INITIAL ORTHOPAEDIC AND [id number] [place] [address] [facility] [address] [place] [id number] [place] [id number] Referral ID Status Reason Start Date Expiration Date Visits V isits Requested Authorized KIMBER/WC/PT/L Denied 06/11/2015 06/10/2016 14 0 SHLDR POST [id number] Encounter Details Date Type Department Care Team Description 08/09/[address] Sprain of left rotator cuff capsule, sub sequent encounter (Primary Dx); Rehabilitation [address] MARYANA Other postp rocedural status(V45.89) Services [place] [address] [facility] [address] [place] [address] [address] [address] [place] [address] (Work) [phone] Social History Tobacco Use Types Packs/Day Years Used Date Smoking Tobacco: Never Assessed Sex Assigned at Date Recorded Not on file documented as of this encounter Plan of Treatment Not on filedocumented as of this encounter Procedures Procedure Name Priority Date/Time Associated Diagnosis Comme nts [facility] NEUROMUSCULAR Routine 08/10/2015 10:23 AM Sprain of left r otator RE-EDUCATION CDT cuff capsule, subsequent encounter Other postprocedural status(V45.89) [facility] THERAPEUTIC Routine 08/10/2015 10:23 AM Sprain of left rot ator EXERCISES CDT cuff capsule, subsequent encounter Other postprocedural status(V45.89) documented in this encounter Visit Diagnoses Diagnosis Sprain of left rotator cuff capsule, sub sequent encounter - Primary Other postprocedural status(V45.89) Other postprocedural status documented in this encounter Care Teams Veneer Stapler Relationship Specialty Start Date End Date Idalmis Sloan PCP - General Family Practice 11/04/13 documented as of this encounter
--- OUTSIDE RECORDS SUMMARY | 2022-01-02 14:58 | XMS_ITS | Encounter Summary ---
:1950 Author Organization [place] Address [facility] [place] [address] Care Team Providers Name Role Phone Idalmis Sloan Primary Care Provider Encounter Details Date Type Department Care Team Description 07/25/2014 Therapy Visit [facility] [place] [place], Midline low back pain Rehabilitation Services TEAM GUIDE with right-sided [facility] sc [facility]atica (Primary Dx) Center [address] [facility] [address] [place] [address] Social History Tobacco Use Types [...] Primary documented in this encounter Care Teams Roller Shop Supervisor Relationship Specialty Start Date End Date Idalmis Sloan PCP - General Family Practice 11/04/13 documented as of this encounter
--- OUTSIDE RECORDS SUMMARY | 2022-01-02 14:58 | XMS_ITS | Encounter Summary ---
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
--- OUTSIDE RECORDS SUMMARY | 2022-01-02 14:58 | XMS_ITS | Encounter Summary ---
:1950 Author Organization [place] Address [address] [facility] [place] [address] Care Team Providers Name Role Phone Idalmis Sloan Primary Care Provider Encounter Details Date Type Department Care Team Description 11/09/[address] [facility] Fidelia Chang pain Rehabilitation Services SHANAE Sweet (Primary Dx) [facility] [address] [address] [address] [facility] [address] [place] [id number] Social History Tobacco Use Types Packs/Day Years [...] from spouse. BETTER with rest, methocarbanol. 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 Objective: System Shoulder Evaluation: ROM: AROM: Flexion: [...] 10:13 AM Left shoulder pain EXERCISES CDT [facility] HOT OR COLD PACKS Routine 11/13/2014 10:13 AM Left shoulde r pain THERAPY CDT documented in this encounter Visit Diagnoses Diagnosis Left shoulder pain - Primary Pain in joint, shoulder region documented in this encounter Care Teams Stain Wiper Relationship Specialty Start Date End Date Idalmis Sloan PCP - General Family Practice 11/04/13 documented as of this encounter
--- OUTSIDE RECORDS SUMMARY | 2022-01-02 14:58 | XMS_ITS | Encounter Summary ---
:1950 Author Organization [place] Address [address] [facility] [place] [address] Care Team Providers Name Role Phone Unavailable Primary Care Provider Unavailable Encounter Details Date Type Department Care Team Description 08/25/[address] [facility] Krysta, (Die Inspector) [facility] VIELKA Isabel Results [facility] [address] [id number] Social History Tobacco Use Types Packs/Day Years [...] PA-C MT: [id number] Name: KRYS MOSHER Account: [id number] : 1950 Admit Date: Discharge Date: 08/25/2010 Document: [id number] documented in this encounter Plan of Treatment Not on filedocumented as of this encounter Visit Diagnoses Not on filedocumented in this encounter
--- OUTSIDE RECORDS SUMMARY | 2022-01-02 14:58 | XMS_ITS | Encounter Summary ---
:1950 Author Organization [place] Address [address] [place] [address] Care Team Providers Name Role Phone Unavailable Primary Care Provider Unavailable Encounter Details Date Type Department Care Team Description 08/26/2010 Historic Notes INTERFACED REPORT Interface, Transcript MD colby Social History Tobacco Use Types Packs/Day Years Used Date Smoking Tobacco: Never Assessed Sex Assigned at Date Recorded Not on file documented as of this encounter Progress Notes Interface, Melt House Supervisor - 12/02/2010 7:32 PM CDT Discharge Summary - Reason for Discharge Discharge from facility - Progress toward Goals partially met achieving short term goals/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
--- OUTSIDE RECORDS SUMMARY | 2022-01-02 14:58 | XMS_ITS | Encounter Summary ---
:1950 Author Organization [place] Address [facility] [place] [address] Care Team Providers Name Role Phone Idalmis Sloan Primary Care Provider Encounter Details Date Type Department Care Team Description 11/15/2014 Therapy Visit [facility] [place] [place] Fidelia oulder pain Rehabilitation Services DESCRIPTIVE CATALOG LIBRARIAN (Apoorva womack Dx) [facility] [address] [facility] [address] [place] [address] Social History Tobacco Use Types [...] region documented in this encounter Care Teams Manager Mutual Fund Relationship Specialty Start Date End Date Idalmis Sloan PCP - General Family Practice 11/04/13 documented as of this encounter
--- OUTSIDE RECORDS SUMMARY | 2022-01-02 14:58 | XMS_ITS | Encounter Summary ---
:1950 Author Organization [place] Address [facility] [place] [place] [address] Care Team Providers Name Role Phone Unavailable Primary Care Provider Unavailable Encounter Details Date Type Department Care Team Description 08/23/2010 Hospital Laboratory [facility] Results Carlos simmons PA-C [facility] [address] [address] (Wo rk) Social History Tobacco Use Types [...] Signature Hemoglobin 10.4 (L) 11.7 - 15.7 [place] g/dL [facility] Specimen Anatomical Collection Method Collection Time Receive d Time (Source) Location / / Volume Laterality 08/23/2010 7:30 AM 1 7:38 CDT AM CDT Maame Chaparro PA-C LAB - BLOOD ORDERABLES Performing Organization Address City/State/ZIP Code Phon e Number [facility] [address] [place], [place] [address] [facility] (ABNORMAL) Basic metabolic panel (08/23/2010 7:30 AM CDT) P athologist Signature Sodium 138 133 - 144 [place] mmol/L [facility] Potassium 4.1 3.4 - 5.3 [place] mmol/L [facility] Chloride 108 94 - 109 [place] mmol/L [facility] Carbon Dioxide 26 20 - 32 [place] mmol/L [facility] Anion Gap 4 (L) 6 - 17 [place] mmol/L [facility] Glucose 101 (H) 60 - 99 [place] mg/dL [facility] Urea Nitrogen 7 7 - 30 [place] mg/dL [facility] Creatinine 0.69 0.52 - [facility] 1.04 mg/dL [facility] GFR Estimate 87 >60 [place] mL/min/[address] [place] [address] LAB GFR Estimate If >90 >60 [place] Black mL/min/1.[address] [place] [address] LAB Calcium 8.3 (L) 8.5 - 10.4 [place] mg/dL [facility] Specimen Anatomical Collection Method Collection Time Receive d Time (Source) Location / / Volume Laterality 08/23/2010 7:30 AM 1 7:38 CDT AM CDT Maame Chaparro PA-C LAB - BLOOD ORDERABLES Performing Organization Address City/State/ZIP Code Phon e Number [facility] [address] [place], [place] [address] [facility] documented in this encounter Visit Diagnoses Not on filedocumented in this encounter
--- OUTSIDE RECORDS SUMMARY | 2022-01-02 14:58 | XMS_ITS | Encounter Summary ---
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 [facility] [address] [facility] [address] [place] [address] Social History Tobacco Use Types Packs/Day Years Used Date Smoking Tobacco: Never Assessed Sex Assigned at Date Recorded Not on file documented as of this encounter Progress Notes [place], GASTROENTEROLOGY MANAGER - 09/20/2014 12:54 PM CDT Subjective: HPI [...] Primary documented in this encounter Care Teams Reservations Sales Agent Relationship Specialty Start Date End Date Idalmis Sloan PCP - General Family Practice 11/04/13 documented as of this encounter
--- OUTSIDE RECORDS SUMMARY | 2022-01-02 14:58 | XMS_ITS | Encounter Summary ---
:1950 Author Organization [place] Address [facility] [place] [address] Care Team Providers Name Role Phone Unavailable Primary Care Provider Unavailable Encounter Details Date Type Department Care Team Description 08/23/2010 Historic Notes INTERFACED REPORT Interface, Transcript on, Social History Tobacco Use Types Packs/Day Years Used Date Smoking Tobacco: Never Assessed Sex Assigned at Date Recorded Not on file documented as of this encounter Progress Notes Interface, Electric Lift Truck Driver - 12/02/2010 7:36 PM CDT General Information [...] Level of moderate assist (50% patients effort) Gray: - Physical 1 person assist Assist/Nonphysical Assist: Bed Mobility: Sit to Supine - Level of moderate assist (50% patients effort) Gray: - Physical 1 person assist Assist/Nonphysical Assist: Bed Mobility: Supine to Sit - Level of moderate assist (50% patients effort) Gray: - Physical 1 person assist Assist/Nonphysical Assist: Bed Mobility Analysis - Impairments pain; post surgical precautions; decreased Contributing to strength Impaired Bed Mobility: Transfer: Sit to Stand - Level of minimum assist (75% patients effort) Gray: - Physical 1 person assist Assist/Nonphysical Assist: Transfer: Stand to Sit - Level of minimum assist (75% patients effort) Gray: - Physical 1 person assist Assist/Nonphysical Assist: Transfer: Sit/Stand Safety Analysis - Impairments pain; post surgical precautions; decreased Contributing to strength Impaired Transfers: Lower Body Dressing - Level of maximum assist (25% patients effort) Gray: - Physical 1 person assist Assist/Nonphysical Assist: [...] therapy goals): - Demonstrates need for PT; CONTROLLER COAL OR ORE referral to another service: - Predicted Duration of 3-4 days Therapy: - Predicted Frequency daily of Therapy: - Discharge Rehabilitation facility; TCU versus home with Destination: assist pending progress - Anticipated Equipment Auto Dealer; Dressing equipment at Discharge: - Risks and [...]
--- OUTSIDE RECORDS SUMMARY | 2022-01-02 14:58 | XMS_ITS | Encounter Summary ---
:1950 Author Organization [place] Address [address] [place] [address] Care Team Providers Name Role Phone Idalmis Slona Primary Care Provider Ana Jacobs PA-C Unavailable Madhav Matute MD Unavailable Encounter Details Date Type Department Care Team Description 11/21/2014 External Order [facility] Outside, Provider Results Rehabilitation Services [facility] [address] [place] [address] [address] [place] [address] Social History Tobacco Use Types [...] documented as of this encounter Care Teams Library Media Technician Relationship Specialty Start Date End Date Idalmis Sloan Ann PCP - General Family Practice 11/04/13 Ana Jacobs PA-C Assigned Neuroscience 11/04/20 12/01/20 [facility] Provider [address] [id number] Madhav Matute MD Assigned Neuroscience 12/02/20 [address] [place] [id number] documented as of this encounter
--- OUTSIDE RECORDS SUMMARY | 2022-01-02 14:58 | XMS_ITS | Encounter Summary ---
:1950 Author Organization [place] Address [address] [place] [address] Care Team Providers Name Role Phone NathaliaIdalmisVijaya Primary Care Provider Encounter Details Date Type Department Care Team Description 11/13/2013 Telephone [facility] Nurse Idalmis Sloan Advisors [facility] [address] [facility] Dri ve [address] [place] [address] [place] [address] [phone] (Wo rk) Social History Tobacco Use Types [...] better.I know an abx would help.Who is aircraft detail draftsperson? Advised to be seen.Page sent to MD per pt.Md advised to be seen in am. Pt stated she will go [facility] the [facility]. # [phone] Triage Note: Guideline Title: Cough - Adult [...] air. Be sure to clean according to retail specialist's instructions. Limit activities and increase periods of [...] on filedocumented in this encounter Care Teams Pipe Fitter Supervisor Maintenance Relationship Specialty Start Date End Date Idalmis Sloan PCP - General Family Practice 11/04/13 documented as of this encounter
--- OUTSIDE RECORDS SUMMARY | 2022-01-02 14:58 | XMS_ITS | Encounter Summary ---
:1950 Author Organization [place] Address [address] [place], [place] [address] Care Team Providers Name Role Phone Unavailable [...] Waleska Alcaraz - 08/02/2012 4:30 PM CDT [facility] Triage Call Report Patient Name: Krys Mosher Call Date & Time: 07/31/2012 2:40:00PM Patient PCP Name: Idalmis Sloan Patient Address: [facility] [place] [address] Patient Date of : 1950 Age: 62 yr. Patient Gender: Female Footwear Sales Representative Name: Viji Aguilar Presenting Problem: Call FNA [...] Dr Severino Catalan to Pt 's phone [phone]. Allergies Cipro, augmentin , sulfa and Lorazepam. [facility] phone [phone]. Triage Note: Guideline Title: Infection On Antibiotic [...]
--- OUTSIDE RECORDS SUMMARY | 2022-01-02 14:58 | XMS_ITS | Encounter Summary ---
:1950 Author Organization [place] Address [facility] [place] [address] Care Team Providers Name Role Phone Unavailable Primary Care Provider Unavailable Encounter Details Date Type Department Care Team Description 08/23/2010 Historic Notes INTERFACED REPORT Israel Schwab RN [facility] [address] [place], [place] [address] (Wo rk) Social History [...] been Management: getting the 50mg dose) Dilaudid SCRIPT DEVELOPER 0.1-0.2 Q 6 min CR 0.1-0.2 mg [...] and coordination of care Signatures ISRAEL SCHWAB (GENERAL OPERATIONS AGENT)[Signed 14:10] Authored: Interval History/Chief Complaint, Review of Systems, Physical Exam, Vital Signs/Labs/Imaging/Culture Review, Pain Score and Medications, Assessment and Plan documented in this encounter Plan of Treatment Not on filedocumented as of this encounter Visit Diagnoses Not on filedocumented in this encounter
--- OUTSIDE RECORDS SUMMARY | 2022-01-02 14:58 | XMS_ITS | Encounter Summary ---
:1950 Author Organization [place] Address [facility] [place] [address] Care Team Providers Name Role Phone Unavailable Primary Care Provider Unavailable Encounter Details Date Type Department Care Team Description 08/25/2010 Historic Notes INTERFACED REPORT Interface, Transcript onMD Social History Tobacco Use Types Packs/Day Years Used Date Smoking Tobacco: Never Assessed Sex Assigned at Date Recorded Not on file documented as of this encounter Progress Notes Interface, County Bailiff - 12/02/2010 7:33 PM CDT Discharge Summary - Reason for Discharge Discharge from facility - Progress toward Goals partially met achieving short term goals/hotel operations manager goals - Barriers to achieving Limited [...]
--- OUTSIDE RECORDS SUMMARY | 2022-01-02 14:58 | XMS_ITS | Encounter Summary ---
:1950 Author Organization [place] Address formerly [facility] [place] [address] Care Team Providers Name Role Phone Idalmis Sloan Primary Care Provider Encounter Details Date Type Department Care Team Description 08/01/[address] [facility] [place], Midline low back pain Rehabilitation Services TRAINING DESIGNER with right-sided [facility] sc iatica (Primary Dx) Center [address] [facility] [address] [place] [address] Social History Tobacco Use Types [...] Primary documented in this encounter Care Teams Global Climate Change Researcher Relationship Specialty Start Date End Date Idalmis Sloan PCP - General Family Practice 11/04/13 documented as of this encounter
--- OUTSIDE RECORDS SUMMARY | 2022-01-02 14:58 | XMS_ITS | Encounter Summary ---
:1950 Author Organization [place] Address [address] [facility] [place] [address] Care Team Providers Name Role Phone Idalmis Sloan Primary Care Provider Encounter Details Date Type Department Care Team Description 11/04/2013 Hospital Encounter [facility] Jermaine Paz Ulceration (H) [facility] MD Chuck [address] [place], [place] ORTHOPEDICS [address] [phone] [place] [address] (Wo rk) Social History Tobacco [...] site documented in this encounter Care Teams Manager Council Relationship Specialty Start Date End Date Idalmis Sloan PCP - General Family Practice 11/04/13 documented as of this encounter
--- OUTSIDE RECORDS SUMMARY | 2022-01-02 14:58 | XMS_ITS | Encounter Summary ---
:1950 Author Organization [place] Address [address] [place] [address] Care Team Providers Name Role Phone Unavailable [...] Waleska Alcaraz - 03/21/2012 7:37 PM CST [facility] Triage Call Report Patient Name: Krys Mosher Call Date & Time: 03/21/2012 11:00:19AM Patient PCP Name: Idalmis Sloan MRN: Patient Address: [address] [address] Patient Date of : 1950 Age: 61 yr. Patient Gender: Female Electronic Gluing Machine Operator Name: Idalmis Bolaños Presenting Problem: Krys has [...] Procedure Note: .Other right foot surgery 2006 RUMENTATION FITTER documented in this encounter Plan of Treatment Not on filedocumented as of this encounter Visit Diagnoses Not on filedocumented in this encounter
--- OUTSIDE RECORDS SUMMARY | 2022-01-02 14:58 | XMS_ITS | Encounter Summary ---
:1950 Author Organization [place] Address [address] [place], [place] [address] Care Team Providers Name Role Phone Unavailable [...] Waleska Alcaraz - 01/16/2012 7:49 PM CST [place] [facility] Triage Call Report Patient Name: Krys Mosher Call Date & Time: 07/18/2011 8:05:57PM Patient PCP Name: Idalmis Sloan MRN: Patient Address: [address] [place] [address] Patient Date of : 1950 Age: 61 yr. Patient Gender: Female Rehabilitation Caseworker Name: Viji Hyatt Presenting Problem: I have an infected little toe. Red, painful, swollen. Went to a foot doctor amonth ago who shaved off a callus and a few days ago little right toe started getting red; now looks infected she states. Refuses ER due to high deductible and insurance problems; and wants to see if MD mail messenger contractor would call in an ABX. Is allergic to : cipro possibly; sulfa and augmentin. Can take Keflex and levoquin she states. I called Dr. Chacon and he allowed me to call in an Rx Keflex po 500mg TID x7days. I called this into [facility] in [place]. This note will be faxed to [place] office; please ATTN: Dr. Sloan. Triage Note: [...] Procedure Note: .Other right foot surgery 2006 FACTURERS REPRESENTATIVE documented in this encounter Plan of Treatment Not on filedocumented as of this encounter Visit Diagnoses Not on filedocumented in this encounter
--- OUTSIDE RECORDS SUMMARY | 2022-01-02 14:59 | XMS_ITS | Encounter Summary ---
:1950 Author Organization [place] Address [address] [facility] [place] [address] Care Team Providers Name Role Phone Unavailable Primary Care Provider Unavailable Encounter Details Date Type Department Care Team Description 08/21/2010 Results Only [facility] Jose Comer, Hospital Results [facility] [address] [place] [address] (Wo rk) Social History Tobacco [...]
--- OUTSIDE RECORDS SUMMARY | 2022-01-02 14:59 | XMS_ITS | Encounter Summary ---
:1950 Author Organization [place] Address [facility] [place] [address] Care Team Providers Name Role Phone Unavailable Primary Care Provider Unavailable Encounter Details Date Type Department Care Team Description 08/21/2010 Consultation [facility] Idalmis Schwab, Hospital Results RN [facility] [address] [place], [place] [address] (Wo rk) Social History [...] same nurse practitioner, Sherry Arambula of the [facility]. It does not appear that [...] a pain clinic and that would be [facility] that is located in [place]. 3. Esophageal reflux. 4. Tobacco use. 5. [...] 100 mg b.i.d. She is on a STAPLER HAND Dilaudid. She can have 0.1-0.2 q.6minutes with a continuous rate of 0.1-0.2 for an hour limit of 1.5. She has not taken any other medswhile here. REVIEW OF SYSTEMS: Please see the [facility] adult patient profile done by Amanda Cardoso [...] but does have pain meds ordered per [employer]. Patient having somatosensory-type of inflammatory pain postop. PLAN: 1. We will leave ST[employer] as it was written for. Patient is [...] CARROLL Name: KRYS MOSHER MRN: [id number] Account: [id number] : 1950 Consult Date: 08/21/2010 Document: [id number] cc: SAIMA MCHUGH PA-C documented in this encounter Plan of Treatment Not on filedocumented as of this encounter Visit Diagnoses Not on filedocumented in this encounter
--- OUTSIDE RECORDS SUMMARY | 2022-01-02 14:59 | XMS_ITS | Encounter Summary ---
:1950 Author Organization [place] Address [facility] [place] [address] Care Team Providers Name Role Phone Unavailable Primary Care Provider Unavailable Encounter Details Date Type Department Care Team Description 08/22/2010 Hospital Laboratory [facility] Results Carlos simmons PA-C [facility] [address] [address] (Wo rk) Social History Tobacco Use Types [...] Signature Hemoglobin 10.4 (L) 11.7 - 15.7 [place] g/dL [facility] Specimen Anatomical Collection Method Collection Time Receive d Time (Source) Location / / Volume Laterality 08/22/2010 7:55 AM 1 7:58 CDT AM CDT Maame Chaparro PA-C LAB - BLOOD ORDERABLES Performing Organization Address City/State/ZIP Code Phon e Number [facility] [address] [place] [address] [facility] (ABNORMAL) Basic metabolic panel (08/22/2010 7:55 AM CDT) P athologist Signature Sodium 138 133 - 144 [place] mmol/L [facility] Potassium 4.2 3.4 - 5.3 [place] mmol/L [facility] Chloride 107 94 - 109 [place] mmol/L [facility] Carbon Dioxide 24 20 - 32 [place] mmol/L [facility] Anion Gap 8 6 - 17 [place] mmol/L [facility] Glucose 112 (H) 60 - 99 [place] mg/dL [facility] Urea Nitrogen 10 7 - 30 [place] mg/dL [facility] Creatinine 0.74 0.52 - [facility] 1.04 mg/dL [facility] GFR Estimate 80 >60 [place] mL/min/[address] [place] [address] LAB GFR Estimate If >90 >60 [place] Black mL/min/1.[address] [place] [address] LAB Calcium 7.7 (L) 8.5 - 10.4 [place] mg/dL [facility] Specimen Anatomical Collection Method Collection Time Receive d Time (Source) Location / / Volume Laterality 08/22/2010 7:55 AM 1 7:58 CDT AM CDT Maame Chaparro PA-C LAB - BLOOD ORDERABLES Performing Organization Address City/State/ZIP Code Phon e Number [place] [address] [place], [place] [address] [facility] documented in this encounter Visit Diagnoses Not on filedocumented in this encounter
--- OUTSIDE RECORDS SUMMARY | 2022-01-02 14:59 | XMS_ITS | Encounter Summary ---
:1950 Author Organization [place] Address [facility] [place] [address] Care Team Providers Name Role Phone Unavailable Primary Care Provider Unavailable Encounter Details Date Type Department Care Team Description 08/16/2010 Historic Notes INTERFACED REPORT Interface, Transcript onMD Social History Tobacco Use Types Packs/Day Years Used Date Smoking Tobacco: Never Assessed Sex Assigned at Date Recorded Not on file documented as of this encounter Progress Notes Interface, Income Tax Investigator - 12/02/2010 7:47 PM CDT General Information - How to be Addressed [place] - Source of Information patient - Patient Belongings clothing; glasses; walker and cane - handyperson #1: Sachin - Relationship to patient #1: - Phone 1: [phone] - handyperson #2: Sabiha Burgess - Relationship to sister patient #2: - Phone 1: [phone] - Patient's spoken language; Luxembourgish or Bilingual communication style Advance Directive - [...] abuse, self neglect, lack of adequate food, custodial, medical care, or financial exploitation)? Values/Beliefs/Spiritual Care - C: Community: In hospital senior sharepoint architect support of your spiritual health, is there someone we may contact for you? (identify all that apply) Learning Assessment - Factors Influencing no factors identified Readiness to Learn - Factors that Impact none Ability to Learn - Learning Preferences skill demonstration; written material - Cultural none Considerations - Developmental none Considerations - Hinduism none Considerations Mutuality/Individual Preferences - What information none would help us give you more personalized care? Signatures KAYLEIGH MAX (RN)[Signed 15:03] Authored: General Information, Skin Inspection, Coping Stress/Abuse Rosario Prado (Supervisor Shuttle Veneering)[Signed 17:38] Authored: Advance Directive JOSE BROWN (RN)[Signed [...]
--- OUTSIDE RECORDS SUMMARY | 2022-01-02 14:59 | XMS_ITS | Encounter Summary ---
:1950 Author Organization [place] Address [address] [facility] [place] [address] Care Team Providers Name Role Phone Unavailable Primary Care Provider Unavailable Encounter Details Date Type Department Care Team Description 08/21/2010 Operative Report [facility] Jose Comer (Engine House Helper) [facility] MD Dipti Results [facility] [address] [facility] [address] [place] [address] Social History Tobacco Use Types [...] of pedicle screw mary fixation, L3-L4 (CD). 8.[place] of autogenous bone marrow, right ilium. SURGEON: Jose Comer MD MOTOR AND CHASSIS INSPECTOR: Bethany Chaparro PA-C, INDICATIONS FOR PROCEDURE: Krys [...] of L2 and L4 with a #1 [place], and then using a 4 mm [place] [...] of L2 and L4, using a #1 [place], and then with the help of a [...] The set nuts were torqued to the oncology rn's specifications with a torque wrench. The wound [...] in good condition. Revised: , , Document: [id number], EM#[id number] Electronically signed on 08/22/2010 06:48 by JOSE COMER MD MT: [id number] Name: KRYS MOSHER Account: [id number] : 1950 Procedure Date: 08/21/2010 Document: [id number] cc: Idalmis Sloan MD documented in this encounter Plan of Treatment Not on filedocumented as of this encounter Visit Diagnoses Not on filedocumented in this encounter
--- OUTSIDE RECORDS SUMMARY | 2022-01-02 14:59 | XMS_ITS | Encounter Summary ---
:1950 Author Organization [place] Address [facility] [place] [address] Care Team Providers Name Role Phone Unavailable Primary Care Provider Unavailable Encounter Details Date Type Department Care Team Description 08/22/2010 Historic Notes INTERFACED REPORT Interface, Transcript onMD Social History Tobacco Use Types Packs/Day Years Used Date Smoking Tobacco: Never Assessed Sex Assigned at Date Recorded Not on file documented as of this encounter Progress Notes Interface, Sanitary Chemist - 12/02/2010 7:39 PM CDT Patient Status - Physical status Stable (s/s of potential complications absent or manageable) - Psychosocial status Stable Discharge Planning - Discharge From: [facility] - Patient Care Unit: ms 2 [...] Up Care - Physician/clinician Dr Comer name: AKYLEIGH Curtis (RN)[Signed 13:28] Authored: Medications and Prescriptions, Special Care Needs and Instructions DORIS MEDRANO (RN)[Signed 08:07] Authored: Patient Status, Discharge Planning, Discharge Information, Medications and Prescriptions, Special Care Needs and Instructions, Other Discharge Education, Materials, and Instructions, Follow Up Care Interface, Sanitary Chemist - 12/02/2010 7:39 PM CDT General Information [...] Mobility: Rolling/Turning - Level of stand-by assist [place]: Bed Mobility: Scooting/Bridging - Level of stand-by assist [place]: Bed Mobility: Sit to Supine - Level of stand-by assist [place]: Bed Mobility: Supine to Sit - Level of stand-by assist [place]: Bed Mobility Analysis - Impairments pain Contributing to Impaired Bed Mobility: Transfer: Sit to Stand - Level of CGA [place]: - Physical verbal cues; supervision Assist/Nonphysical Assist: Transfer: Stand to Sit - Level of stand-by assist [place]: Gait Skills - Level of minimum assist (75% patients effort) [place]: - Physical verbal cues Assist/Nonphysical Assist: - Assistive Device: PHOTO GRAPHICS LIBRARIAN and IV pole - Gait Distance: 20' to door and back Gait Analysis - Gait Pattern Used: swing-to gait - Gait Deviations decreased jeffery; decreased step length Noted: - Impairments pain Contributing to Gait Deviations: Balance Skills Assessment - Sitting Balance: independent Static: - Sitting Balance: independent Dynamic: - [id number] Balance: minimum assist (75% patients effort) - [...] - Anticipated Equipment elastic laces and a hand candy molder at Discharge: - Risks and Benefits of [...] Assessment, Sensation, Treatment Plan, Clinical Impression Interface, Sanitary Chemist - 12/02/2010 7:38 PM CDT SH - Responded to referral per pt. request for emotional support. Pt. is recovering from back surgery, and she says it went very well, expresses gratitude for Dr. Comer's skill and the quality of care she has received from nursing staff. 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 Pt. is originally from [place], [place] where she was a [facility] of [facility], has not found a new aisha home since moving to [place], [place] but says she attends chapel at [facility] occasionally. Pt.'s family have not been able to visit due to a wedding in [place], but said her should be back in time for discharge. Offered active listening, emotional support, prayed for comfort and healing and gave thanks for successful surgery. Will follow up if needs arise. [Signature] Author: MARY ELIAS (Ecology Professor Research Editor) [Signed 10:25] documented in this encounter Plan of Treatment Not on filedocumented as of this encounter Visit Diagnoses Not on filedocumented in this encounter
--- OUTSIDE RECORDS SUMMARY | 2022-01-02 14:59 | XMS_ITS | Encounter Summary ---
:1950 Author Organization [place] Address [address] [place] [address]. [place] [address] Care Team Providers Name Role Phone Unavailable Primary Care Provider Unavailable Encounter Details Date Type Department Care Team Description 08/21/2010 Hospital Laboratory [facility] Souleymane, [facility] Results MD Dipti [facility] [address] [facility] [address] [place] [address] (Wo rk) Social History Tobacco [...] At Patho logist Time Signature ABO A [facility] RH(D) Pos [facility] Antibody Neg [facility] Specimen 08/24/2010 [facility] Specimen Anatomical Collection Method Collection Time Receive d Time (Source) Location / / Volume Laterality 08/21/2010 6:15 AM 1 6:17 CDT AM CDT Jose Comer MD LAB - BLOOD BANK TEST ORDER Performing Organization Address City/State/ZIP Code Phon e Number M [facility] [address] [place], [place] [address] [facility] documented in this encounter Visit Diagnoses Not on filedocumented in this encounter
--- OUTSIDE RECORDS SUMMARY | 2022-01-02 14:59 | XMS_ITS ---
:1950 Author Care Team Providers Name Role Phone Ed Travis Primary Care Provider Unavailable Allergies Code Code System Name Reaction Severity Status Onset 874402 RxNorm Augmentin ? ? Active ? 7052 [...] ? Specific 1.025 1.005-1.030 Final [facility]: Complete [place] [address], [place] ? ? URINE ? Ph 5.5 5.0-7.5 Final [facility]: [address], [place] ? ? URINE ? Urine-colo yellow yellow Final [facility]: r [address], [place] ? ? URINE ? Appearance clear clear Final [facility]: [address], [place] ? ? URINE ? WBC negative negative Final [facility] p: Esterase [address], [place] ? ? URINE ABNOR Protein 1+ negative/tra Final [facility]: MAL ce [address], [place] ? ? URINE ? Glucose negative negative Final [facility]: [address], [place] ? ? URINE ABNOR Ketones trace negative Final [facility] p: MAL [address], [place] ? ? URINE ? Occult negative negative Final [facility]: Blood [address], [place] ? ? URINE ? Bilirubin negative negative Final [facility]: [address], [place] ? ? URINE ? Urobilinog 0.2 0.2-1.0 Final [facility]: en,semi-qn mg/dL mg/dL [address], [place] ? ? URINE ? Nitrite, negative negative Final Lab [facility]: Urine [address], [place] ? ? URINE ? Microscopi see ? Final [facility]: c below: [address], [place] ? ? URINE ? Wbc 0-5 /hpf 0 - 5 /hpf Final [facility]: [address], [place] ? ? URINE ? Rbc 0-2 /hpf 0 - 2 /hpf Final [facility]: [address], [place] ? ? URINE ? Epithelial 0-10 0 - 10 /hpf Final [facility]: Cells (Non /hpf [address], [place] ? ? URINE ? Epithelial stock worker and deliverer ? Cancelle [facility]: Cells d [address], [place] ? ? URINE ? Casts stock worker and deliverer ? Cancelle [facility]: d [address], [place] ? ? URINE ? Cast Type stock worker and deliverer ? Cancelle [facility]: d [address], [place] ? ? URINE ABNOR Crystals present n/a Final [facility]: MAL [address], [place] ? ? URINE ? Crystal amorphou n/a Final [facility]: Type s [address], [place] ? ? URINE ? Mucus present not estab. Final [facility]: Threads [address], [place] ? ? URINE ? Bacteria few none Final [facility] : seen/few [address], [place] ? ? URINE ? Yeast stock worker and deliverer ? Cancelle [facility]: d [address], [place] ? ? URINE ? Trichomona stock worker and deliverer ? Cancelle [facility]: s d [address], [place] ? ? URINE ? Comment stock worker and deliverer ? Cancelle [facility]: d [address], [place] ? ? URINE ? Microscopi stock worker and deliverer ? Cancelle [facility]: c d [address], [place] 07/16/2020 Culture, URINE ABNOR Urine final ? Final [facility] Urine MAL Culture, report ([place] Routine ): [address] [facility] [place] ? ? URINE ABNOR Result 1 comment ? Final [facility] p MAL ([place] n ): [address] [facility] [place] ? ? URINE ABNOR Result 2 serratia ? Final [facility] MAL maryce ([place] ns ): [address] [facility] [place] ? ? URINE ? Antimicrob comment ? Final Labc orp ial ([place] Susceptibil ): [address] [facility] [place] Past Encounters 07/16/2020 Cellulitis of Toe of Right Foot; Urinary Tract Infectious Disease [facility]: [address] [facility], [address], [place] [address], Ph. Social History Tobacco Smoking Status Former Smoker Vaccine List None recorded. Plan of Care Reminders Provider Appointments None recorded. ? ? Lab None recorded. ? ? Referral None recorded. ? ? Procedures None recorded. ? ? Surgeries None recorded. ? ? Imaging None recorded. ? ? Vitals Weight BMI Blood Pressure 160/91 mm[Hg]
--- OUTSIDE RECORDS SUMMARY | 2022-01-02 14:59 | XMS_ITS | Encounter Summary ---
:1950 Author Organization [place] Address [facility] [place] [address] Care Team Providers Name Role Phone Unavailable Primary Care Provider Unavailable Encounter Details Date Type Department Care Team Description 08/22/2010 Historic Notes INTERFACED REPORT Israel Schwab RN [facility] [address] [place], [place] [address] (Wo rk) Social History [...] was around 8/10. She feels that the PUMP ASSEMBLER with the vistaril and tylenol are a [...] one 50 mg dose this AM) Dilaudid PUMP ASSEMBLER 0.1-0.2 Q 6 min with CR of [...] with current interventions. Plan: 1. Will keep PUMP ASSEMBLER as it is, since she is doing [...] and coordination of care. Signatures ISRAEL SCHWAB (HOT OILER)[Signed 09:46] Authored: Interval History/Chief Complaint, Review of Systems, Physical Exam, Vital Signs/Labs/Imaging/Culture Review, Pain Score and Medications, Assessment and Plan documented in this encounter Plan of Treatment Not on filedocumented as of this encounter Visit Diagnoses Not on filedocumented in this encounter
== END 2022-01-02 14:53 | disposition home or self-care (01) ==
LOC: WOUND 14:52
PROVIDERS: PCP Family Medicine; Visit Provider Nurse Practitioner Family
DX: M14.60 Charcot's joint, unspecified site (principal); I73.9 Peripheral vascular disease, unspecified; L02.426 Furuncle of left lower limb
CPT/HCPCS: 11042; 87070

== ENCOUNTER 2022-02-05 15:09 | Outpatient (CLI) | payer MEDICARE, SELFPAY ==
--- OUTSIDE RECORDS SUMMARY | 2022-02-05 15:11 | XMS_ITS | Encounter Summary ---
:1950 Author [facility] Address [address] [place] [address] Care Team Providers Name Role Phone Unavailable Primary Care Provider Unavailable Reason for Visit Reason Comments Ulcer, Foot 5th toes b/l ft sores x 1 we ek Encounter Details Date Type Department Care Team Description 12/22/2018 Initial Consult [facility] Jermain Stinson , Charcot's joint of right foot (Primary Dx); MedSurg DPM Blister of fifth toe of right foot, init ial encounter; [address] [place] [address] [place], [place] [phone] [address] Social History Tobacco Use Types Packs/Day Years [...] List Diagnosis Date Noted ??? Subclinical hyperthyroidism ([facility]) 11/13/2017 ??? Elevated parathyroid hormone ([facility]) 11/13/2017 ??? Hypocalcemia 11/13/2017 No past surgical history on file. 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 These are an accommodative insert. ASSESSMENT: ICD-10-CM [...] voice recognition software and may contain some pegger errors) documented in this encounter Nursing Notes [...]
--- OUTSIDE RECORDS SUMMARY | 2022-02-05 15:11 | XMS_ITS | Clinical Summary ---
:1950 Author [facility] Address [address] [place] [address] Care Team Providers Name Role Phone Unavailable [...] for each transition of care or referral. [email or web address] Allergies Active Allergy Reactions Severity Noted Date [...] 36.5 ??C (97.7 ??F) 03/03/2013 10:55 AM UTILITIES MANAGER Respiratory Rate - - Oxygen Saturation [...] Phone Address Typ e / Group Dates [facility] [id number] 2018-Pre [phone] [address] Medicare ADVANTAGE sent [phone] [place] [address]
--- OUTSIDE RECORDS SUMMARY | 2022-02-05 15:11 | XMS_ITS | Encounter Summary ---
:1950 [facility] Address [address] [place] [address] Care Team Providers Name Role Phone Unavailable Primary Care Provider Unavailable Reason for Visit Reason Comments UPDATE Encounter Details Date Type Department Care Team Description 12/07/2017 Telephone [facility] [address] Dustin Cagle MD UPDATE Endocrinology [address] [place] [phone] (Wo rk) Social History Tobacco Use Types [...]
--- OUTSIDE RECORDS SUMMARY | 2022-02-05 15:11 | XMS_ITS | Encounter Summary ---
:1950 Author [facility] Address [address] [place] [address] Care Team Providers Name Role Phone Unavailable Primary Care Provider Unavailable Reason for Visit Reason Comments Other Encounter Details Date Type Department Care Team Description 11/20/2017 Telephone [facility] 38[address] Dustin Cagle MD Other Endocrinology [address] [place] [phone] (Wo rk) Social History Tobacco Use Types [...]
--- OUTSIDE RECORDS SUMMARY | 2022-02-05 15:11 | XMS_ITS | Encounter Summary ---
:1950 [facility] Address [address] [place] [address] Care Team Providers Name Role Phone Unavailable Primary Care Provider Unavailable Reason for Visit Reason Comments CONSULT Thyroid Encounter Details Date Type Department Care Team Description 11/13/2017 Initial Consult [facility] [address] Anirudh Cagle clinical hyperthyroidism (Primary Dx); Endocrinology MD Jose Elevated parathyroid hormone; [address] [facility] [address] [place] [address] [phone] Social History Tobacco Use Types Packs/Day Years [...] 12:00 PM CDT NAME: KRYS MOSHER MR#: [id number] CSN: [id number] AUTHENTICATING CLINICIAN: Aniurdh Cagle MD CONFIRM #: [id number] LOC: 432 CLINIC CONSULTATION DATE OF CONSULTATION: [...] for this consultation. CC: DR. ISRAEL SLOAN [facility] [address] [place], [place] [address] DMT:JARRETT C: CONFIRM #: [id number] documented in this encounter Plan of Treatment [...] - 11/16/2017 9:14 PM CDT Performed at [address] [address] CLIA number [id number] Anirudh Cagle MD LAB_1 Performing Organization Address [facility] Code Phon e Number PN SOFT [address] [place] [address] [phone] Tsh Receptor Antibody (11/16/2017 3:17 PM CDT) athologist [facility] TSH Receptor <0.90 <=1.75 IU/L PN SOFT Antibody Comment: Performed by [employer] [facility], [address] [place] [address] [email or web address], Papito Palomares MD - Lab . Director Specimen Anatomical Collection Method Collection Time Receive d Time (Source) Location / / Volume Laterality 11/16/2017 3:17 PM 8 8:43 CDT PM CDT Narrative PN SOFT - 11/18/2017 8:02 PM CDT Performed at [employer] [facility] [address] [place] [address] CLIA number [id number] Anirudh Cagle MD LAB_1 Performing Organization Address [facility] Phon e Number PN SOFT [address] [place] [address] T3 - Triiodothyronine, Free (FRT3) (11/16/2017 3:17 PM CDT) athologist Signature Triiodothyronin 3.2 1.7 - 3.7 PN SOFT e, Free pg/mL Specimen Anatomical Collection Method Collection Time Receive d Time (Source) Location / / Volume Laterality 11/16/2017 3:17 PM 8 6:30 CDT PM CDT Narrative PN SOFT - 11/16/2017 7:10 PM CDT Performed at [place] [address] [place] [address] CLIA number [id number] Anirudh Cagle MD LAB_1 Performing Organization Address [facility] Phon e Number PN SOFT [address] [place] [address] Free T4 (11/16/2017 3:17 PM CDT) athologist Signature Thyroxine, Free 1.1 0.7 - 1.5 PN SOFT ng/dL Specimen Anatomical Collection Method Collection Time Receive d Time (Source) Location / / Volume Laterality 11/16/2017 3:17 PM 8 6:30 CDT PM CDT Narrative PN SOFT - 11/16/2017 7:10 PM CDT Performed at [place] [address] [place] [address] CLIA number [id number] Anirudh Cagle MD LAB_1 Performing Organization Address [facility] Phon e Number PN SOFT [address] [place] [address] TSH (11/16/2017 3:17 PM CDT) athologist Signature Thyroid 0.38 0.30 - PN SOFT Stimulating 4.50 Hormone uIU/mL Specimen Anatomical Collection Method Collection Time Receive d Time (Source) Location / / Volume Laterality 11/16/2017 3:17 PM 8 6:30 CDT PM CDT Narrative PN SOFT - 11/16/2017 7:10 PM CDT Performed at [place] [address] [place] [address] CLIA number [id number] Anirudh Cagle MD LAB_1 Performing Organization Address [facility] Phon e Number PN SOFT [address] [place] [address] Vitamin D (In house) (11/16/2017 3:17 PM [...] - 11/16/2017 9:29 PM CDT Performed at [address] [address] CLIA number [id number] Anirudh Cagle MD LAB_1 Performing Organization Address [facility] Phon e Number PN SOFT [address] [place] [address] (ABNORMAL) PTH - Parathyroid Hormone Intact (11/16/2017 3:17 PM CDT) athologist Signature PTH 159 (H) 10 - 100 PN SOFT pg/mL Specimen Anatomical Collection Method Collection Time Receive d Time (Source) Location / / Volume Laterality 11/16/2017 3:17 PM 8 8:43 CDT PM CDT Narrative PN SOFT - 11/16/2017 9:51 PM CDT Performed at [address] [address] CLIA number [id number] Anirudh Cagle MD LAB_1 Performing Organization Address [facility] Phon e Number PN SOFT [address] [place] [address] Phosphorus (11/16/2017 3:17 PM CDT) athologist Signature Phosphorus Serum 3.2 2.3 - 4.7 PN SOFT mg/dL Specimen Anatomical Collection Method Collection Time Receive d Time (Source) Location / / Volume Laterality 11/16/2017 3:17 PM 8 3:16 CDT PM CDT Narrative PN SOFT - 11/16/2017 4:36 PM CDT Performed at [facility], [address] [facility], [place] [address] CLIA number [id number] Anirudh Cagle MD LAB_1 Performing Organization Address City/State/ZIP Code Phon e Number PN SOFT [address] [place] [address] (ABNORMAL) CMP - Comprehensive Metabolic Panel (11/16/2017 3:17 PM CDT) [facility] Method Time Signature Aspartate 48 (H) [...] - 11/16/2017 4:36 PM CDT Performed at [facility], [address] [facility], [place] [address] CLIA number [id number] Anirudh Cagle MD LAB_1 Performing Organization Address City/State/ZIP Code Phon e Number [place] [address] [place] [address] documented in this encounter Visit Diagnoses Diagnosis [...]
--- OUTSIDE RECORDS SUMMARY | 2022-02-05 15:11 | XMS_ITS | Encounter Summary ---
:1950 Author [facility] Address [address] [place] [address] Care Team Providers Name Role Phone Unavailable Primary Care Provider Unavailable Reason for Visit Reason Comments Fax LAB RESULTS Encounter Details Date Type Department Care Team Description 12/02/2017 Telephone [facility] 38[address] Dustin Cagle MD Fax; LAB RESULTS Endocrinology [address] [place] [address] [place] [address] [phone] (Wo rk) Social History Tobacco Use Types [...] records just faxed to # noted below Ksaey Mello RN - 12/02/2017 5:17 PM CDT Pt requesting lab results and recommendations from Dr. Cagle on 11/16/[address] Idalmis Sloan at [phone]. documented in this encounter Plan of Treatment Not on filedocumented as of this encounter Visit Diagnoses Not on filedocumented in this encounter
--- OUTSIDE RECORDS SUMMARY | 2022-02-05 15:11 | XMS_ITS | Encounter Summary ---
:1950 Author Organization [facility] Address [address] [address] Care Team Providers Name Role Phone Unavailable Primary Care Provider Unavailable Encounter Details Date Type Department Care Team Description 11/16/2017 Lab Visit [facility]te Laborator y Elevated parathyroid hormone ; [address] Subclinical hyperthyroidism; [place] [address] Hypocalcemia [phone] Social History Tobacco Use Types Packs/Day Years [...] Transglutaminase Ab IgA (11/16/2017 3:17 PM CDT) [facility] Method Time Signature TISSUE 0.4 0.0 - 6.9 PN SOFT TRANSGLUTAMINASE AB IU/L IGA Comment: Reference Range: <7 Negative, 7 - 10 Equivocal, >10 Posit sung Specimen Anatomical Collection Method Collection Time Receive d Time (Source) Location / / Volume Laterality 11/16/2017 3:17 PM 8 8:53 CDT PM CDT Narrative PN SOFT - 11/18/2017 12:30 PM [place] [address] CLIA number [id number] Anirudh Cagle MD LAB_1 Performing Organization Address [facility] Phon e Number PN SOFT [address] [place] [address] Celiac Disease Reflex Panel IgA (11/16/2017 3:17 PM CDT) athologist Signature IGA 198 69 - 517 PN SOFT mg/dL Specimen Anatomical Collection Method Collection Time Receive d Time (Source) Location / / Volume Laterality 11/16/2017 3:17 PM 8 8:54 CDT PM CDT Narrative PN SOFT - 11/16/2017 9:14 PM CDT Performed at [address] [address] CLIA number [id number] Anirudh Cagle MD LAB_1 Performing Organization Address [facility] Phon e Number PN SOFT [address] [place] [address] Tsh Receptor Antibody (11/16/2017 3:17 PM CDT) athologist Signature TSH Receptor <0.90 <=1.75 IU/L PN SOFT Antibody Comment: Performed by [employer], [address] [place] [address] [email or web address], Papito Palomares MD - Lab . Director Specimen Anatomical Collection Method Collection Time Receive d Time (Source) Location / / Volume Laterality 11/16/2017 3:17 PM 8 8:43 CDT PM CDT Narrative PN SOFT - 11/18/2017 8:02 PM CDT Performed at [facility] [address] [place] [address] CLIA number [id number] Anirudh Cagle MD LAB_1 Performing Organization Address City/[facility] Code Phon e Number PN SOFT [address] [place] [address] T3 - Triiodothyronine, Free (FRT3) (11/16/2017 3:17 PM CDT) athologist Signature Triiodothyronin 3.2 1.7 - 3.7 PN SOFT e, Free pg/mL Specimen Anatomical Collection Method Collection Time Receive d Time (Source) Location / / Volume Laterality 11/16/2017 3:17 PM 8 6:30 CDT PM CDT Narrative PN SOFT - 11/16/2017 7:10 PM CDT Performed at [address] [address] CLIA number [id number] Anirudh Cagle MD LAB_1 Performing Organization Address City/[facility] Phon e Number PN SOFT [address] [place] [address] Free T4 (11/16/2017 3:17 PM CDT) athologist Signature Thyroxine, Free 1.1 0.7 - 1.5 PN SOFT ng/dL Specimen Anatomical Collection Method Collection Time Receive d Time (Source) Location / / Volume Laterality 11/16/2017 3:17 PM 8 6:30 CDT PM CDT Narrative PN SOFT - 11/16/2017 7:10 PM CDT Performed at [address] [address] CLIA number [id number] Anirudh Cagle MD LAB_1 Performing Organization Address [facility] Phon e Number PN SOFT [address] [place] [address] TSH (11/16/2017 3:17 PM CDT) athologist Signature Thyroid 0.38 0.30 - PN SOFT Stimulating 4.50 Hormone uIU/mL Specimen Anatomical Collection Method Collection Time Receive d Time (Source) Location / / Volume Laterality 11/16/2017 3:17 PM 8 6:30 CDT PM CDT Narrative PN SOFT - 11/16/2017 7:10 PM CDT Performed at [address] [address] CLIA number [id number] Anirudh Cagle MD LAB_1 Performing Organization Address [facility] Phon e Number PN SOFT [address] [place] [address] [phone] Vitamin D (In house) (11/16/2017 3:17 PM [...] - 11/16/2017 9:29 PM CDT Performed at [address] [address] CLIA number [id number] Anirudh Cagle MD LAB_1 Performing Organization Address [facility] Phon e Number PN SOFT [address] [place] [address] [phone] (ABNORMAL) PTH - Parathyroid Hormone Intact (11/16/2017 3:17 PM CDT) P athologist Signature PTH 159 (H) 10 - 100 PN SOFT pg/mL Specimen Anatomical Collection Method Collection Time Receive d Time (Source) Location / / Volume Laterality 11/16/2017 3:17 PM 8 8:43 CDT PM CDT Narrative PN SOFT - 11/16/2017 9:51 PM CDT Performed at [address] [address] CLIA number [id number] Anirudh Cagle MD LAB_1 Performing Organization Address City/[facility] Phon e Number PN SOFT [address] [place] [address] Phosphorus (11/16/2017 3:17 PM CDT) athologist Signature Phosphorus Serum 3.2 2.3 - 4.7 PN SOFT mg/dL Specimen Anatomical Collection Method Collection Time Receive d Time (Source) Location / / Volume Laterality 11/16/2017 3:17 PM 8 3:16 CDT PM CDT Narrative PN SOFT - 11/16/2017 4:36 PM CDT Performed at [facility] [address] [place] [address] CLIA number [id number] Anirudh Cagle MD LAB_1 Performing Organization Address City/[facility] Phon e Number PN SOFT [address] [place] [address] (ABNORMAL) CMP - Comprehensive Metabolic Panel (11/16/2017 [...] - 11/16/2017 4:36 PM CDT Performed at [facility], [address] [place] [address] CLIA number [id number] Anirudh Cagle MD LAB_1 Performing Organization Address City/State/ZIP Code Phon e Number PN SOFT [address] [place] [address] documented in this encounter Visit Diagnoses Diagnosis Elevated parathyroid hormone ([facility]) Unspecified endocrine disorder Subclinical hyperthyroidism ([facility]) Thyrotoxicosis without mention of goiter or other cause, without mention of thyrotoxic crisis or storm Hypocalcemia documented in this encounter
--- OUTSIDE RECORDS SUMMARY | 2022-02-05 15:11 | XMS_ITS | Clinical Summary ---
:1950 Author Organization [employer] [facility] Address [place] [address] Care Team Providers Name Role Phone Idalmis [...] MEDICARE PART A - MEDICARE PART A [id number] 2008-Prese ATTN: CLAIMS HB USE ONLY HB ONLY nt [address] [place] [address] [facility] MR [id number] 2020-Presen [address] [address] [place] [address] Advance Directives Latest Code Status on File Code Status Date Activated Date Inactivated Comments Full Code 07/16/2012 5:52 PM 07/17/2012 6:32 PM Full Code 07/16/2012 10:11 AM 07/16/2012 5:52 PM Care Teams Sterilization Specialist Relationship Specialty Start Date End Date Idalmis Sloan MD PCP - General Family Practice 07/15/12
--- OUTSIDE RECORDS SUMMARY | 2022-02-05 15:12 | XMS_ITS | Encounter Summary ---
:1950 Author Organization [facility] Address [address] [place] [address] Care Team Providers Name Role Phone Unavailable Primary Care Provider Unavailable Encounter Details Date Type Department Care Team Description 10/25/2012 Lab Visit [facility] 3850 Rash and other nonspecific skin eruption; Laboratory Unspecified pruritic disorde r [address] 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 Miscellaneous - 04/11/2016 4:09 AM CSTNotes Recorded by Hira Link RN on 10/25/2012 at 5:13 PMPt notified.------Notes Recorded by Megan Son MD on 10/25/2012 at 3:42 PMPlease call and let her know lymphocytes are ok CTURAL MILL SUPERVISOR documented in this encounter Plan of [...] 10/25/2012 12:26 PM CDT Performed at [facility], [address] [place] [address] Transcriptions 04/11/2016 4:09 AM CSTNotes Recorded by [...] 10/25/2012 12:26 PM CDT Performed at [facility], [facility] [place] [address] Transcriptions 04/11/2016 4:09 AM CSTNotes Recorded by [...]
--- OUTSIDE RECORDS SUMMARY | 2022-02-05 15:12 | XMS_ITS | Encounter Summary ---
:1950 [facility] Address [address] [place] [address] Care Team Providers Name Role Phone Unavailable Primary Care Provider Unavailable Reason for Visit Reason Comments Follow-up Encounter Details Date Type Department Care Team Description 10/25/2012 Office Visit [facility] 3800 Megan Son MD Unspecified pruritic Dermatology [address] [place] disorder (Primary Dx) [address] [place] [id number] [phone] Social History Tobacco Use Types Packs/Day Years [...] Has had 2 biopsies ( one at [facility], one elsewhere) , both consistent with organizing [...] 7 days. Take 30 minutes before first viqf-afzes-zgzdasqbmp. Avoid lying down for 30 minutes. ??? [...] lunch. -Discussed UVB therapy, available now in [place] twice a week. Will start this. Warned [...]
--- OUTSIDE RECORDS SUMMARY | 2022-02-05 15:12 | XMS_ITS | Encounter Summary ---
:1950 Author [facility] Address [address], [place] [address] Care Team Providers Name Role Phone Unavailable Primary Care Provider Unavailable Reason for Visit Reason Comments Rash Encounter Details Date Type Department Care Team Description 09/14/2012 Office Visit [place] [facility] Alok Wright/gu[place] in [facility] Medicine Cheri Qureshi (Primary Dx) [address] [place] [address] [place], [place] [phone] (Wo rk) Social History Tobacco Use Types [...] times recently including a visit to the route sales person and was given topical steroid creams without [...] 7 days. Take 30 minutes before first fdsi-rghrb-jeczvlbudc. Avoid lying down for 30 minutes. ??? [...]
--- OUTSIDE RECORDS SUMMARY | 2022-02-05 15:12 | XMS_ITS | Continuity of Care Document ---
:1950 Author Organization [facility] Address [address] [facility] [place] [address] Care Team Providers Name Role Phone [facility] Unavailable Unavailable Procedures Procedure Date INTERLAMINAR CRV OR THRC Advance Directives Directive Yes / No Effective Date File Name No Information Encounters Encounter Practice Location Reason(s) Diagnoses Date Provider Provide rs Description For Visit Copied on Encounter [place] No [facility] Information [facility] Provider: Surgery Surgery Surgery [facility] [place]. [place], [address] [facility] [address] [facility] [place], [place], [place], [id number], [place], [address]. [id number], tel:[phone]. [phone] tel:[phone] Family History Family Member Type Diagnosis Age At Onset No Information Payers Payer name Insurance type Covered constitution party ID Authorization(s ) [facility] MedicareComplete Replacement 16 [id number] Social History Type Description Quantity Date Captured [...]
--- OUTSIDE RECORDS SUMMARY | 2022-02-05 15:12 | XMS_ITS | Encounter Summary ---
:1950 Author Organization [facility] Address [address] [place] [address] Care Team Providers Name Role Phone Unavailable Primary Care Provider Unavailable Encounter Details Date Type Department Care Team Description 09/22/2012 Lab Visit [facility] 3850 L aboratory Rash/skin eruption [address] [place], [place] [id number] Social History Tobacco Use Types Packs/Day Years [...] am out of the office next week. N FORESTER Miscellaneous - 04/11/2016 5:07 AM CSTNotes Recorded [...] am out of the office next week. N FORESTER [facility] - 04/11/2016 5:07 AM CSTNotes Recorded [...] am out of the office next week. N FORESTER Miscellaneous - 04/11/2016 5:07 AM CSTNotes Recorded [...] am out of the office next week. N FORESTER Miscellcarol - 04/11/2016 5:07 AM CSTNotes Recorded [...] am out of the office next week. N FORESTER Miscellaneous - 04/11/2016 5:07 AM CSTNotes Recorded [...] am out of the office next week. N FORESTER Miscellaneous - 04/11/2016 5:07 AM CSTNotes Recorded [...] am out of the office next week. N FORESTER documented in this encounter Plan of Treatment [...] Results (ABNORMAL) Differential (09/22/2012 10:50 AM CDT) [facility] Method Time Signature Absolute 3.6 1.8 [...] - 09/22/2012 11:00 AM CDT Performed at [facility], [address] [place] [address] Transcriptions 04/11/2016 5:07 AM CSTNotes Recorded by [...] Megan Mcqueen MD LAB_1 Performing Organization Address City/[facility] Phon e Number HP CONVERSION TSH AND [...] Megan Mcqueen MD LAB_1 Performing Organization Address City/[facility] Phon e Number HP CONVERSION C-Reactive Protein [...] Megan Mcqueen MD LAB_1 Performing Organization Address City/[facility] Code Phon e Number HP [...] Megan Mcqueen MD LAB_1 Performing Organization Address City/[facility] Phon e Number HP CONVERSION Creatinine / [...] - 09/22/2012 11:23 AM CDT Performed at [facility], [address] [place] [address] Transcriptions 04/11/2016 5:07 AM CSTNotes Recorded by Cherelle Post RN on 09/28/2012 at 1:35 PMspoke with . put in lab for CBC for 2 weeks------Notes Recorded by Cherelle Post RN on 09/27/2012 at 8:34 AM lm for patient and informed per dr. britt bae. will verify what labs to order, but asked patient to recheck labs in 2 weeks.------Notes Recorded by eMgan Mcqueen MD on 09/23/2012 at 10:02 PM [...] Panel(Hepatic Function Panel) (09/22/2012 10:50 AM CDT) [facility] Method Time Signature Alk Phos 94 [...] - 09/22/2012 11:23 AM CDT Performed at [facility], [facility] [place] [address] Transcriptions 04/11/2016 5:07 AM CSTNotes Recorded by [...] - 09/22/2012 11:00 AM CDT Performed at [facility], [address] [place] [address] Transcriptions 04/11/2016 5:07 AM CSTNotes Recorded by [...]
--- OUTSIDE RECORDS SUMMARY | 2022-02-05 15:12 | XMS_ITS | Encounter Summary ---
:1950 Author Organization [facility] Address [address] [place] [address] Care Team Providers Name Role Phone Unavailable Primary Care Provider Unavailable Reason for Visit Reason Comments DERMATITIS Encounter Details Date Type Department Care Team Description 12/02/2012 Procedure Visit [facility] Nurse, Bravo Chao DERMATITIS [address] [place] [address] Social History Tobacco Use Types [...]
--- OUTSIDE RECORDS SUMMARY | 2022-02-05 15:12 | XMS_ITS | Encounter Summary ---
:1950 Author [facility] Address [address] [place] [address] Care Team Providers Name Role Phone Unavailable Primary Care Provider Unavailable Reason for Visit Reason Comments Lab Questions Encounter Details Date Type Department Care Team Description 09/24/2012 Telephone [facility] 3800 Megan Son MD Lab Questions Dermatology [address] [place] [address] [place], [place] [address] [phone] Social History Tobacco Use Types Packs/Day Years [...]
--- OUTSIDE RECORDS SUMMARY | 2022-02-05 15:12 | XMS_ITS | Encounter Summary ---
:1950 Author Organization [facility] Address [address] [address] Care Team Providers Name Role Phone Unavailable Primary Care Provider Unavailable Reason for Visit Reason Comments Rash Encounter Details Date Type Department Care Team Description 09/20/2012 Telephone [facility] Titus Whitten Rash [address] [facility] [place], [place] [address] [address] [place] [address] [phone] [place], [place] [address] (Wo rk) Social History Tobacco Use Types Packs/Day Years Used Date Smoking Tobacco: Never Assessed Sex Assigned at Date Recorded Not on file documented as of this encounter Nursing Notes Denise Mon - 09/21/2012 9:20 AM CDT LM to call [phone] to schedule an appointment. Denise Mon 9:18 [...]
--- OUTSIDE RECORDS SUMMARY | 2022-02-05 15:12 | XMS_ITS | Encounter Summary ---
:1950 Author Organization [facility] Address [address] [place] [address] Care Team Providers Name Role Phone Unavailable Primary Care Provider Unavailable Reason for Visit Reason Comments DERMATITIS Encounter Details Date Type Department Care Team Description 11/11/2012 Procedure Visit [place] [facility] Nurse, Bravo Chao DERMATITIS [address] [place] [address] Social History Tobacco Use Types [...]
--- OUTSIDE RECORDS SUMMARY | 2022-02-05 15:12 | XMS_ITS | Encounter Summary ---
:1950 Author Organization [facility] Address [address] [place] [address] Care Team Providers Name Role Phone Unavailable Primary Care Provider Unavailable Encounter Details Date Type Department Care Team Description 10/12/2012 Notes/Orders [facility] 3800 Megan Son MD Dermatology [address] [place] [address] [place], [place] [address] [phone] Social History Tobacco Use Types Packs/Day Years Used Date Smoking Tobacco: Never Assessed Sex Assigned at Date Recorded Not on file documented as of this encounter Plan of Treatment Not on filedocumented as of this encounter Visit Diagnoses Not on filedocumented in this encounter
--- OUTSIDE RECORDS SUMMARY | 2022-02-05 15:12 | XMS_ITS | Encounter Summary ---
:1950 Author Organization [facility] Address [address] [place] [address] Care Team Providers Name Role Phone Unavailable Primary Care Provider Unavailable Encounter Details Date Type Department Care Team Description 09/28/2012 Notes/Orders [facility] 3800 Megan Son MD Rash and other Dermatology [address] nonspecific skin [address] eruption (Primary Dx) [place] [address] [phone] Social History Tobacco Use Types Packs/Day Years Used Date Smoking Tobacco: Never Assessed Sex Assigned at Date Recorded Not on file documented as of this encounter Plan of Treatment Not on filedocumented as of this encounter Visit Diagnoses Diagnosis Rash and other nonspecific skin eruption - Primary documented in this encounter
--- OUTSIDE RECORDS SUMMARY | 2022-02-05 15:12 | XMS_ITS | Encounter Summary ---
:1950 Author Organization [facility] Address [address] [place] [address] Care Team Providers Name Role Phone Unavailable Primary Care Provider Unavailable Reason for Visit Reason Comments ECZEMA Encounter Details Date Type Department Care Team Description 11/04/2012 Procedure Visit [place] [facility] Nurse, Bravo Chao ECZEMA [address] [place] [address] Social History Tobacco Use [...]
--- OUTSIDE RECORDS SUMMARY | 2022-02-05 15:12 | XMS_ITS | Encounter Summary ---
:1950 Author Organization [facility] Address [address] [place] [address] Care Team Providers Name Role Phone Unavailable Primary Care Provider Unavailable Reason for Visit Reason Comments ECZEMA Encounter Details Date Type Department Care Team Description 11/30/2012 Procedure Visit [place] [facility] Nurse, Bravo Chao ECZEMA [address] [place] [address] Social History Tobacco Use Types [...]
--- OUTSIDE RECORDS SUMMARY | 2022-02-05 15:12 | XMS_ITS | Encounter Summary ---
:1950 Author [facility] Address [address] [place] [address] Care Team Providers Name Role Phone Unavailable Primary Care Provider Unavailable Reason for Visit Reason Comments Appt. Scheduled Encounter Details Date Type Department Care Team Description 12/14/2012 Telephone [facility] 3800 Megan Son MD Appt. Scheduled Dermatology [address] [place] [address] [place] [address] [phone] Social History Tobacco Use Types Packs/Day Years [...] her husbands schedule first. She will call [phone] to schedule this appt. Megan Son MD [...]
--- OUTSIDE RECORDS SUMMARY | 2022-02-05 15:12 | XMS_ITS | Encounter Summary ---
:1950 Author Organization [facility] Address [address] [place] [address] Care Team Providers Name Role Phone Unavailable Primary Care Provider Unavailable Reason for Visit Reason Comments Appt. Needed Referral rec via fax for Hyp erthyroidism from Dr. Idalmis Sloan at [facility] Encounter Details Date Type Department Care Team Description 2017 Notes/Orders [facility] 3800 Nurse, P3800 End Endocrinology [address] [place] [phone] Social History Tobacco Use Types Packs/Day Years Used Date Smoking Tobacco: Every Day Cigarettes 1 Sex Assigned at Date Recorded Not on file documented as of this encounter Progress Notes Killian Shah - 2017 1:20 PM CDT Referral rec via fax for Hyperthyroidism from Dr. Idalmis Sloan at [facility] documented in this encounter Plan of Treatment Not on filedocumented as of this encounter Visit Diagnoses Not on filedocumented in this encounter
--- OUTSIDE RECORDS SUMMARY | 2022-02-05 15:12 | XMS_ITS | Encounter Summary ---
:1950 Author Organization [facility] Address [address] [place] [address] Care Team Providers Name Role Phone Unavailable Primary Care Provider Unavailable Reason for Visit Reason Comments ECZEMA Encounter Details Date Type Department Care Team Description 11/02/2012 Procedure Visit [facility] [facility] Nurse, Bravo Chao ECZEMA [address] [place] [address] Social History Tobacco Use [...]
--- OUTSIDE RECORDS SUMMARY | 2022-02-05 15:12 | XMS_ITS | Encounter Summary ---
:1950 Author [facility] Address [address] [place] [address] Care Team Providers Name Role Phone Unavailable Primary Care Provider Unavailable Reason for Visit Reason Comments Rash SWELLING, LEG Encounter Details Date Type Department Care Team Description 11/27/2012 Nurse Triage [facility] 380 Found, No Pcp , Rash; SWELLING, LEG Dermatology [address] [facility] [address] [place] [place] [address] [address] [place] [address] Social History Tobacco Use Types Packs/Day Years Used Date Smoking Tobacco: Never Assessed Sex Assigned at Date Recorded Not on file documented as of this encounter Nursing Notes Vicki Andrew - 11/27/2012 2:28 PM CDT Protocol: LEG SWELLING AND [id number] Affirmative: [1] Thigh, calf, or ankle swelling [...]
--- OUTSIDE RECORDS SUMMARY | 2022-02-05 15:12 | XMS_ITS | Encounter Summary ---
:1950 Author [facility] Address [address] [place] [address] Care Team Providers Name Role Phone Unavailable Primary Care Provider Unavailable Reason for Visit Reason Comments Cough Encounter Details Date Type Department Care Team Description 03/03/2013 [facility] Tammie Mohan, Acute bronchitis Medicine HVAC INSTALLATION TECHNICIAN, STRATEGY SPECIALIST (Primary Dx) [address] [place] [address] [place], [place] [phone] [address] Social History Tobacco Use Types Packs/Day Years Used Date Smoking Tobacco: Never Assessed Sex Assigned at Date Recorded Not on file documented as of this encounter Last Filed Vital Signs Vital Sign Reading Time Taken Comments Blood Pressure 124/68 03/03/2013 10:55 AM RAG BOILER Pulse 84 03/03/2013 10:55 AM RAG BOILER Temperature 36.5 ??C (97.7 ??F) 03/03/2013 10:55 AM RAG BOILER Respiratory Rate - - Oxygen Saturation - - Inhaled Oxygen Concentration - - Weight - - Height - - Body Mass Index - - documented in this encounter Patient Instructions Patient InstructionsMoTammie cullen - 03/03/2013 11:13 AM CST Delsym for cough Mucinex D for sinus congestion. Ask the Pharmacist for this BOILER documented in this encounter Progress Notes Tammie [...] 7 days. Take 30 minutes before first tqjj-pbwpm-vxwhukzmyd. Avoid lying down for 30 minutes. ??? [...] discharged ambulatory and in stable condition. *SH~DNS~SOAP1 BOILER documented in this encounter Plan of Treatment Not on filedocumented as of this encounter Visit Diagnoses Diagnosis Acute bronchitis - Primary documented in this encounter
--- OUTSIDE RECORDS SUMMARY | 2022-02-05 15:12 | XMS_ITS | Encounter Summary ---
:1950 Author Organization [facility] Address [address] [place] [address] Care Team Providers Name Role Phone Unavailable Primary Care Provider Unavailable Reason for Visit Reason Comments RESULTS, TEST Encounter Details Date Type Department Care Team Description 09/29/2012 Telephone [facility] Dermatology Carlos Jones MD RESULTS, TEST [address] [facility] [address] [place] [address] [place] [address] (Wo rk) Social History Tobacco [...] absence (rc 8-5) She may be reached @[phone]. Thank you. documented in this encounter Plan of Treatment Not on filedocumented as of this encounter Visit Diagnoses Not on filedocumented in this encounter
--- OUTSIDE RECORDS SUMMARY | 2022-02-05 15:12 | XMS_ITS | Encounter Summary ---
:1950 Author Organization [facility] Address [address] [place] [address] Care Team Providers Name Role Phone Unavailable Primary Care Provider Unavailable Reason for Referral Specialty Diagnoses / Procedures Referred By Contact Refer red To Contact Masood Wright, [facility] [address] [place] [address] Referral ID Status Reason Start Date Expiration Date Visits Requ ested Visits Authorized Reason for Visit Reason Comments Rash Encounter Details Date Type Department Care Team Description 09/22/2012 Initial Consult [facility] 3800 Megan Son MD Rash/skin eruption (Primary Dx); Dermatology [address] Rash and other nonspecific s kin eruption [address] [place] [phone] Social History Tobacco Use Types Packs/Day Years [...] whole body going on for4-5 weeks. Seen [facility] twice for this condition. Red bumps with itching. Tried Bactroban cream, OTCallergy medication, hydrocortisone, hydroxizine. The Bactroban seemed to help little but rash continues to spread. Was in patient hospital for back surgery and rash has been present since and does not believe she has had any new medications prior to the rash. Had biopsy at [facility] which she thought the results [...] 7 days. Take 30 minutes before first bkfk-clysi-pxfpfkwdlo. Avoid lying down for 30 minutes. ??? [...] drawnalso discussed getting labs and slides from [facility] vs doing another biopsy today. Patientelected to have biopsy done today. release of information sent to [facility] today. After disc ussion, a punch [...] as recommended. Kelly Ashby RN at 09/29/12 160 Status: Signed Calling for biopsy results---please advise in 's absence (rc 8-5) She may be reached @[phone]. Thank you. RBIKE COURIER documented in this encounter Plan of Treatment [...] Component Value Ref Test Analysis Performed At [facility] gist Range Method Time Signature Path: ? FINAL DERMATOPATHOLOGY REPO RT HP CONVERSION Pathology #: [id number] ? Date Obtained: 09/22/2012 ?Date Received: 09/22/2012 [...] absence (rc 8-5) She may be reached @[phone]. Thank you. Megan Son MD LAB_1 Performing Organization Address City/State/ZIP Code Phon e Number HP CONVERSION documented in this encounter Visit Diagnoses Diagnosis Rash/skin eruption - Primary Rash and other nonspecific skin eruption Rash and other nonspecific skin eruption documented in this encounter
--- OUTSIDE RECORDS SUMMARY | 2022-02-05 15:13 | XMS_ITS | Encounter Summary ---
:1950 Author Organization [place] Address [address] [facility] [place] [address] Care Team Providers Name Role Phone LeviIdalmis stahl Ann Primary Care Provider Madhav Matute MD Unavailable Encounter Details Date Type Department Care Team Description 05/14/2021 Medical Correspondence [facility] Scan, PHYSICAL THERAPY Health Info Mgmt Non-Provider ORDER [facility] [address] [place] [address] Social History Tobacco Use Types Packs/Day Years Used Date Smoking Tobacco: Never Smokeless Tobacco: Never Sex Assigned at Date Recorded Not on file documented as of this encounter Plan of Treatment Not on filedocumented as of this encounter Visit Diagnoses Not on filedocumented in this encounter Care Teams In Store Marketing Associate Relationship Specialty Start Date End Date Idalmis Sloan PCP - General Family Practice 11/04/13 Madhav Matute MD Assigned Neuroscience 12/02/20 [address] MARYANA BEGUM Provider [address] [place] [id number] documented as of this encounter
--- OUTSIDE RECORDS SUMMARY | 2022-02-05 15:13 | XMS_ITS | Encounter Summary ---
:1950 Author Organization [place] Address [facility] [place] [address] Care Team Providers Name Role Phone Idalmis [...] on filedocumented in this encounter Care Teams Obgyn Nurse Relationship Specialty Start Date End Date Idalmis Sloan PCP - General Family Practice 11/04/13 Ana Jacobs PA-C Assigned Neuroscience 11/04/20 12/01/20 [facility] Provider [address] [address] documented as of this encounter
--- OUTSIDE RECORDS SUMMARY | 2022-02-05 15:13 | XMS_ITS | Encounter Summary ---
:1950 Author Organization [place] Address [address] [facility] [place] [address] Care Team Providers Name Role Phone LeviIdalmis stahl Ann Primary Care Provider Madhav Matute MD Unavailable Encounter Details Date Type Department Care Team Description 01/15/2021 Medical Correspondence [facility] Scan, PHYSICAL THERAPY Health Info Mgmt Non-Provider ORDER [facility] [address] [place] [address] Social History Tobacco Use Types Packs/Day Years Used Date Smoking Tobacco: Never Smokeless Tobacco: Never Sex Assigned at Date Recorded Not on file documented as of this encounter Plan of Treatment Not on filedocumented as of this encounter Visit Diagnoses Not on filedocumented in this encounter Care Teams Hydraulic Bull Riveter Operator Relationship Specialty Start Date End Date Idalmis Sloan PCP - General Family Practice 11/04/13 Madhav Matute MD Assigned Neuroscience 12/02/20 [id number] [address] Provider [address] [place] [id number] documented as of this encounter
--- OUTSIDE RECORDS SUMMARY | 2022-02-05 15:13 | XMS_ITS | Encounter Summary ---
:1950 Author Organization [place] Address [address] [place] [address] Care Team Providers Name Role Phone Iadlmis Sloan Primary Care Provider Madhav Matute MD Unavailable Reason for Visit Reason Comments Diarrhea Auth/Cert Specialty Diagnoses / Procedures Referred By Contact Refer red To Contact Med Surg Diagnoses Constipation Generalized muscle weakness Coronary artery calcification Stercoral colitis Constipation with Fecal impaction Constipation Stercoral colitis Coronary artery calcification Generalized muscle weakness Observation Dept [address] [place], [place] [address] Phone: Referral ID Status Reason Start Date Expiration Date Visits Requ ested Visits Authorized [id number] 1 1 Encounter Details Date Type Department Care Team Description 12/16/2020 - [facility] Caleb Dawn PA-C [facility] [address] [place], [place] [id number] Constipation with Fecal impaction; 12/18/2020 [facility] Observation Amando Ross MD [facility] [address] [place] [address] Stercoral colitis; Dept Lisandro Crawford MD [address] [place], [place] [id number] Coronary artery calcification; [address] [place] [address] Social History Tobacco Use Types [...] Brar PA-C - 12/18/2020 10:20 AM CDT [facility] Hospitalist Discharge Summary Date of Admission: 12/16/2020 [...] minutes discharging this patient. Uma Brar PA-C 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 Rectal disimpaction unsuccessful. Success with [place] lady enema and Relistor. Now with large [...] Mejia RN - 12/17/2020 1:14 AM CDT [facility] ED Nurse Handoff Report Krys Mosher is [...] 1. Lift room needed: No. Bariatric: No Metal Fence Erector Needed: No Isolation: No. Infection: Not Applicable. [...] Status --------- ------ CBC with platelets and d...[[id number]] Abnormal Final result Please view results for [...] Quinolones Sulfa Drugs Lorazepam Medications: Nexium Lasix Homestead Methadone Zocor Trazodone Florastor Past Medical History: [...] Status --------- ------ CBC with platelets and d...[[id number]] Abnormal Final result Please view results for [...] Return to near baseline physical activity: Yes Audio Visual Manager Nurse Safe discharge environment identified: Yes [...] for discharge by consultants (if involved): N/A Audio Visual Manager Nurse Safe discharge environment identified: Yes, [...] hip pain. On scheduled methadone and prn Homestead. PIV SL. Continuing supportive cares. Likely home [...] for discharge by consultants (if involved): N/A Audio Visual Manager Nurse Safe discharge environment identified: Yes, [...] ice pack. On scheduled methadone with prn Homestead for chronic pain. PIV SL. Ambulated hallways [...] for discharge by consultants (if involved): N/A Audio Visual Manager Nurse Safe discharge environment identified: Yes, home w/ Barriers to discharge: Yes Entered by: Elfego Randall 12/17/2020 11:27 PM Vitals are Temp: 98.4 ??F (36.9 ??C) Temp src: Oral BP: 110/76 Pulse: 84 Resp: 16 SpO2: 96 %. Patient is Alert and Oriented x4. Up SBA w/walker. On a regular diet. Reports 9/10 rectal discomfort. Ice applied. On scheduled methadone. Prn Homestead also given. PIV SL. Up to bathroom [...] 7. Provider specific discharge goals met: yes Audio Visual Manager Nurse Safe discharge environment identified: Yes [...] 7. Provider specific discharge goals met: Yes Audio Visual Manager Nurse Safe discharge environment identified: Yes Barriers to discharge: Yes, does not feel able to get up and use the toilette so many times Entered by: Reggie Langford 12/17/2020 12:58 PM Please review provider order for any additional goals. Nurse to notify provider when observation goals have been met and patient is ready for discharge. Pharmacy-Admission Medication History - Lazara Fontenot, [facility] - 12/17/2020 10:24 AM CDT Admission medication history interview status for this patient is complete. See [facility] admission navigator for allergy information, prior to admission medications and immunization status. Medication history interview done, indicate source(s): Patient Medication history resources (including written lists, pill bottles, clinic record): Sure Scripts fill record Pharmacy: [facility] Changes made to FLAVORING MAKER medication list: Added: latanoprost, Patanol eye drops, [...] on Movantik. Patient has Medicare D through [facility]. Movantik: Not covered. Relistor: Not covered. Amitiza: $47/mo. Dea Torres, [place] Machine Operator/Liaison, Discharge Pharmacy [phone] Plan of Care - Reggie Langford RN - 12/17/2020 9:02 AM CDT PRIMARY DIAGNOSIS: dehydration/weakness OUTPATIENT/OBSERVATION GOALS TO BE MET BEFORE DISCHARGE: 1. Stable vital signs Yes 2. Tolerating diet:Yes 3. Pain controlled with oral pain medications: Yes 4. Positive bowel sounds: Yes 5. Voiding without difficulty: Yes 6. Able to ambulate: Yes 7. Provider specific discharge goals met: Yes Audio Visual Manager Nurse Safe discharge environment identified: Yes [...] Return to near baseline physical activity: No Audio Visual Manager Nurse Safe discharge environment identified: Yes [...] diet. C/o 8/10 left shoulder pain, PRN Homestead administered. NS running at 100mL/hr. C/o SOB [...] Code Phon e Number [place] [address] Care Lab [address] Lab (1st floor, no room number) [...] City/State/ZIP Code Phon [place] [phone] Care Lab [address] Lab (1st floor, no room number) [...] Address City/State/ZIP Code Phon [place] [address] Care Lab [address] Lab (1st floor, no room number) [...] exposure or clinical presentation sugges ts COVID-19. ??[facility] are certified under the Clinical Laborat ory Improvement Amendments of 1988 (CLIA-88) as qualified to perform moderate and/or high complexity laboratory testing. Caleb Dawn PA-C LAB - MICRO GENERAL ORDERAB LES Performing Organization Address City/State/[place] [address] [facility] [address] [facility]1st [facility], no room number) Abd/pelvis [...] EXAM: CT ABDOMEN PELVIS W CONTRAST LOCATION: [facility] DATE/TIME: 12/16/2020 11:23 PM INDICATION: Diverticulitis suspected, [...] EXAM: CT ABDOMEN PELVIS W CONTRAST LOCATION: [facility] DATE/TIME: 12/16/2020 11:23 PM INDICATION: Diverticulitis suspected, [...] and differential (12/16/2020 9:38 PM CDT) [facility] Method Time Signature WBC Count 11.1 (H) [...] LAB - BLOOD ORDERABLES Performing Organization Address City/[facility]/[place] [phone] Care Lab [address] Lab (1st floor, no room number) [...] LAB - BLOOD ORDERABLES Performing Organization Address City/[facility]/[place] [address] Care Lab [address] Lab (1st floor, no room number) (ABNORMAL) Comprehensive metabolic panel (12/16/2020 9:38 PM CDT) [facility] Method Time Signature Sodium 134 133 - [...] City/State/ZIP Code Phon e Number [place] [address] Care Lab [address] Lab [...] (Given - Provider: Reggie Langford RN) 0834 (z Missed (do not use) - Provider: Linda Avery RN - Reason: [...] (XALATAN) 0.005 % ophthalmic solution 1 drop 2126 (Given - Provider: Mor T Tonia) 1 [...] mg (CANCELED) 1008 (Given - Provider: Reggie Lagnford RN) 20 mg, Oral, DAILY, First dose [...] polyethylene glycol (MIRALAX) Packet 17 g 1004 (z Missed (do not use) - Provider: Reggie Langford RN - Reason: Order parameters not met - Comment: loose stools)1213 (Held by provider - Provider: Uma Brar PA-C - Reason: Other) 0800 (Automatically Held - Provider: SEVEN Garcia)1636 (Unheld by provider - Provider: Orders Generic [...] Langford RN) 0757 (Given - Provider: Linda dobbs RN) 40 mEq, Oral, DAILY, First dose on [...] Alexandru Oneal) Intravenous, 100 mL, ONCE, On Sun at 2325, For 1 dose, This entry is for use by Radiology to intermittently used as a flush in patients receiving a CT scan. spironolactone (ALDACTONE) tablet 25 mg 1202 (Given - Provider: Reggie Langford RN) 0834 (Given - Provider: Linda dobbs RN) 25 mg, Oral, EVERY MORNING, First dose on Thu12/17/20 at 1130 traZODone (DESYREL) tablet 50 mg (COMPLETED) 014 (Given - Provider: Clark Madison RN) 50 mg, Oral, ONCE, On Thu12/17/20 at 0140, For 1 dose Continuous Medication Order 12/16/2020 12/17/2020 12/18/2020 sodium chloride 0.9% infusion (CANCELED) 0323 (New Bag - Provider: Jacky Mejia RN)0834 (Rate/Dose Verify - Provider: Reggie Langford, SANTOS)1254 (Stopped - Provider: Reggie Langford RN) at [...] documented as of this encounter Care Teams Clinical Trial Educator Relationship Specialty Start Date End Date Idalmis Sloan PCP - General Family Practice 11/04/13 Madhav Matute MD Assigned Neuroscience 12/02/[address] BEGUM Provider [address] [place] [address] documented as of this encounter
--- OUTSIDE RECORDS SUMMARY | 2022-02-05 15:13 | XMS_ITS | Encounter Summary ---
:1950 Author Organization [place] Address [address] [place] [address] Care Team Providers Name Role Phone Idalmis Sloan Primary Care Provider Ana Jacobs PA-C Unavailable Reason for Referral Diagnostic Imaging XR (Routine) - Closed Specialty Diagnoses / Procedures Referred By Contact Refer red To Contact Diagnoses Acute bilateral low back pain with left-sided sciatica Lumbar radiculopathy Madhav Matute MD Procedures XR Lumbar Epidural Injection Incl Imaging [address] [place] [address] Referral ID Status Reason Start Date Expiration Date Visits Requ ested Visits Authorized [id number] Closed 11/19/2020 11/19/2021 1 1 Reason for Visit Reason Comments RECHECK Lumbar Encounter Details Date Type Department Care Team Description 11/19/[address] [facility] Madhav Melton Acute darrell ateral low back pain with left-sided sciatica (Primary Dx); [facility] Neurosurgery MD [place] Lumbar radiculopathy [address] [address] MARYANA NELSON [address] [facility] [address] [place] [phone] Social History Tobacco Use Types Packs/Day Years [...] after this timeframe. o You can call [facility] ([facility]) to schedule your injection at [phone] ??? We will work on obtaining your DEXA scan results for Dr. Matute to review. ??? Dr. Matute would like to see you back in the clinic for follow up one month after your injection. Please call the number below to schedule. Please call us if you have any further questions or concerns. [facility] Neurosurgery Clinic documented in this encounter Progress [...] SARAH/Minnie November 19, 2020 to fax number [phone] Right Fax confirmed at 1615 PM documented [...] unspecified documented in this encounter Care Teams Life Insurance Actuary Relationship Specialty Start Date End Date Idalmis Sloan PCP - General Family Practice 11/04/13 Ana Jacobs PA-C Assigned Neuroscience 11/04/20 12/01/20 [facility] Provider [address] [id number] documented as of this encounter
--- OUTSIDE RECORDS SUMMARY | 2022-02-05 15:13 | XMS_ITS | Continuity of Care Document ---
:1950 Author Organization [facility] Address [address] [facility] [place] [address] Phone Care Team Providers Name Role Phone Pedro [facility] Unavailable Unavailable Allergies, Adverse Reactions, Alerts Substance Reaction Status Criticality morphine Active No Information Sulfa (Sulfonamide Antibiotics) hives Active No Information lorazepam Loopy Active No Information POTASSIUM CLAVULANATE hives Active No Informa tion Medications Medication Instructions Dosage Effective Status Comments Dates (start - stop) methadone 5 mg take 1 tablet - Active tablet (5MG) by oral route BID, max of 2 tabs/day for chronic pain hydrocodone 5 take 1 - 2 tablet - Active mg-acetaminophen by ORAL route 325 mg tablet every 4 hours prn, max 4 per day for chronic pain trazodone 50 mg take [...] 1 - 2 tablet - No Longer S upp RX pt mg-acetaminophen by ORAL route Active pick ed up 325 mg tablet every 4 hours prn, 40/ 120 on max 4 per day for 01/10 chronic pain methadone 5 mg take 1 tablet - No Longer tablet (5MG) by oral Active route BID, max of 2 tabs/day for [...] -2015 OFFICE/OUTPATIENT VISIT, EST OFFICE/OUTPATIENT VISIT, EST OFFICE/OUTPATIENT VISIT, EST -2015 OFFICE/OUTPATIENT VISIT, EST -2015 OFFICE/OUTPATIENT VISIT, EST -2014 OFFICE/OUTPATIENT VISIT, EST -2014 OFFICE/OUTPATIENT VISIT, EST -2014 OFFICE/OUTPATIENT VISIT, EST -2014 OFFICE/OUTPATIENT VISIT, EST -2014 OFFICE/OUTPATIENT VISIT, EST -2014 OFFICE/OUTPATIENT VISIT, EST OFFICE/OUTPATIENT VISIT, EST -2013 [...] For Visit Copied on Encounter OFFICE/OUTPAT [facility] low back Pain in right Pedro Specialist IENT VISIT, [facility] pain hipDrug induced [facility]. 7 235 : Rohith EST Pain [place] (chief constipationRhe 2 [facility] Olman Hendesron, Clinic, complaint) umatoid [place], [place].Refer ri [address] arthritisPain tracey CAMACHO, in left [id number], Provider: [place] shoulderPain in [place]. Faisal CAMACHO, left kneePain tel:[phone] Will J, [phone] in right ankle 44586 [address] , [place] and joints of [place], tel:+195 right footOther Minnea chiqui [id number] spondylosis, [place], [place], cervical [address] regionOther . spondylosis, tel:[phone] lumbar [phone] regionRadiculop athy, cervical regionPostlamin ectomy syndrome, not elsewhere classifiedLong term (current) use of opiate analgesic [facility] No Information Jaspreet Malone. [facility] [address] Pain [place] 2 [place], [facility], [place], [address] [place] CAMACHO, [id number], [place], [place]. [place], tel:[phone] , [place] tel:+ [phone] OFFICE/OUTPAT [facility] low back Pain in left Nov-1 [facility] Specialist IENT VISIT, [facility] pain kneeRheumatoid 1 [facility]. 72 35 : Rohith EST Pain [place] (chief arthritisDrug 2 [address] Hien Henderson , Clinic, complaint) induced [place], [place].Refer ri [address] constipationPai [place], tracey [place], n in left [id number], Provider: [place], shoulderPain in [place]. Faisal [place], right hipPain tel: Will J, [phone] in right ankle 33544 [address] , [place] and joints of [place], tel:+ right footOther Minnea chiqui [id number] spondylosis, [place], [place], cervical [address] regionOther . spondylosis, tel:+2 lumbar [phone] regionRadiculop athy, cervical regionPostlamin ectomy syndrome, not elsewhere classifiedLong term (current) use of opiate analgesic OFFICE/OUTPAT [facility] low back Drug induced Oct-0 Pedro Specialist IENT VISIT, [facility] pain constipationRhe [facility]. 7 235 : Rohith EST Pain [place] (chief umatoid [address] Hien [place], Clinic, complaint) arthritisPain [place], [place] .Referri [address] in left [place], tracey [place], shoulderPain in [id number], Provi fredy: [place], right hipPain [place]. Faisal [place], in left tel: [place], [phone] [place] [address] [address] , [place] right ankle and [place], tel:+ joints of right Minnea chiqui [phone] footOther s, [place], spondylosis, [address] cervical . regionOther tel:+952 spondylosis, 5502099 lumbar regionRadiculop athy, cervical regionPostlamin ectomy syndrome, not elsewhere classifiedLong term (current) use of opiate analgesic OFFICE/OUTPAT [facility] low back Drug induced Sep-0 Pedro Specialist IENT VISIT, [facility] pain constipationRhe [facility]. 7 235 : Rohith EST Pain [place] (chief umatoid [address] Hien [place], Clinic, complaint) arthritisPain [place], [place] .Referri [address] in right [place], ng [place], hipPain in left [id number], Provi fredy: [place], shoulderPain in [place]. Faisal [place], left kneePain tel:[phone] Will J, [phone] in right ankle 45203 [address] , [place] and joints of [place], tel: right footOther Minnea chiqui [phone] spondylosis, [place], [place], cervical [address] regionOther . spondylosis, tel:+ lumbar [phone] regionRadiculop athy, cervical regionPostlamin ectomy syndrome, not elsewhere classifiedLong term (current) use of opiate analgesicEncoun ter for therapeutic drug level monitoring [facility] No Information Sep-0 [facility] Refer [facility] 7235 Provider : Pain [place] [address] Faisal Henderson [facility], [place], Jaspreet Calderón, [address] [facility] [address] [place], [id number], [place], [place]. [place], tel:+[phone] s, [place], [phone] , [place] . tel: tel:+ [phone] [facility] lumbago Postlaminectomy Dulen Refe [facility] (chief syndrome, not 0-202 Lois. Prov ider: Pain [place] complaint) elsewhere 2 [facility] [facility], classified Jaspreet Henderson, [address] [facility], [address] [place], DOUG, [place], [place], [id number], [place], [place]. [place], [place], [id number] tel:[phone] , [place] [address] . tel: tel:+ [phone] OFFICE/OUTPAT [facility] low back Pain in left Pedro Specialist IENT VISIT, [facility] pain kneeDrug 0- [facility]. 7235 : R oy EST Pain [place] (chief induced 2 [address] Hien Henderson, Clinic, complaint) constipationRhe [facility] [place].Referri [address] umatoid [place], tracey [place], arthritisPain [id number], Provide r: [place], in left [place]. Faisal CAMACHO, shoulderPain in tel:[phone] Arnold l J, [phone] right hipPain 05530 [address] s , [place] in right ankle [place], tel:+95 and joints of [place] [phone] right footOther s, [place], spondylosis, [address] cervical . regionOther tel:+952 spondylosis, 2868797 lumbar regionRadiculop athy, cervical regionPostlamin ectomy syndrome, not elsewhere classifiedLong term (current) use of opiate analgesic OFFICE/OUTPAT [facility] low back Drug induced Pedro Specialist IENT VISIT, [facility] pain constipatione [facility]. 7 235 : Rohith EST Pain [place] (chief umatoid [address] [place] [facility], Clinic, complaint) [place], [place] .Referri [address] in left DOUG, tracey Henderson, shoulderPain in 068478119, Provi fredy: [place], right hipPain [place]. Faisal CAMACHO, in left tel:[phone] Will [place], [phone] [place] [address] [address] , [place] right ankle and [place], tel:+95 joints of right Minnea chiqui [phone] footOther s, [place], spondylosis, [address] cervical . regionOther tel:+952 spondylosis, 3274884 lumbar regionRadiculop athy, cervical regionPostlamin ectomy syndrome, not elsewhere classifiedLong term (current) use of opiate analgesic OFFICE/OUTPAT [facility] low back Drug induced Jul- Pedro Specialist IENT VISIT, [facility] pain constipationRhe [facility]. 7 235 : Rohith EST Pain [place] (chief umatoid [address] [place] [facility], complaint) [place], [place] .Referri [address] in left DOUG, tracey Henderson, shoulderPain in [id number], Provi fredy: [place], right hipPain [place]. Faisal CAMACHO, in left tel:[phone] Will J, [phone] [place] [address] [address] , [place] right ankle and [place], tel: joints of right Minnea chiqui [phone] footOther s, [place], spondylosis, [address] cervical . regionOther tel: spondylosis, 8741799 lumbar regionRadiculop athy, cervical regionPostlamin ectomy syndrome, not elsewhere classifiedLong term (current) use of opiate analgesic [facility] Radiculopathy, Esha Pulido. Referring [facility] cervical region [address] Provid er: Pain Center 2 Faisal Henderson [facility], [place], Will J, [address] [place], [address] [place], [id number], [place], [place], [place]. [place], tel:284 s, [place], [id number] , [place] . tel: tel: [phone] OFFICE/OUTPAT [facility] low back Pain in left [facility] Specialist IENT VISIT, [facility] pain kneeRheumatoid [facility]. 72 35 : Rohith EST Pain [place] (chief arthritisPain 2 [address] Hien Henderson , [facility], complaint) in left [place], [place].Refer ri [address] shoulderPain in [place], ng [place], right hipPain [id number], Provide r: [place], in right ankle [place]. Faisal [place], and joints of tel: Will J, [phone] right footOther [address]131 [address] [facility] , [place] spondylosis, [place], tel: cervical [place] [phone] regionOther s, [place], spondylosis, [address] lumbar . regionPostlamin tel:[phone] ectomy [id number] syndrome, not elsewhere classifiedLong term (current) use of opiate analgesicRadicu lopathy, cervical regionDrug induced constipation OFFICE/OUTPAT [facility] low back Pain in left [facility] Specialist IENT VISIT, [facility] pain shoulderPain in [facility]. 7 235 : Rohith EST Pain [place] (chief right [address] Hien [place], Clinic, complaint) hipRheumatoid [place], [place] .Referri [address] arthritisPain DOUG, tracey [place], in left [id number], Provider: [place], kneePain in [place]. Faisal [place], right ankle and tel: Arnold l J, [phone] joints of right [address]4845 [address] [facility] , [place] footOther [place], tel: spondylosis, [place] [phone] cervical s, [place], regionOther [address] spondylosis, . lumbar tel: regionPostlamin 2185510 ectomy syndrome, not elsewhere classifiedLong term (current) use of opiate analgesicEncoun ter for therapeutic drug level monitoring OFFICE/OUTPAT [facility] low back Pain in left [facility] Specialist IENT VISIT, [facility] pain shoulderPain in [facility]. 7 235 : Rohith EST Pain [place] (chief left kneePain 2 [address] Hien Henderson , Clinic, complaint) in right [place], [place].Refe rri [address] hipRheumatoid DOUG tracey [place], arthritisOther [id number], Provid er: [place], spondylosis, [place]. Faisal [place], lumbar tel: Will J, [phone] regionPostlamin 54256 [address] [facility] , [place] ectomy [place], tel: syndrome, not [place] [phone] elsewhere s, [place], classifiedPain [address] in right ankle . and joints of tel: right footLong 0674931 term (current) use of opiate analgesicOther spondylosis, cervical regionEncounter for therapeutic drug level monitoring OFFICE/OUTPAT [facility] low back Pain in left Apr- Pedro Specialist IENT VISIT, [facility] pain shoulderPain in [facility] 7 235 : Rohith EST Pain [place] (chief left kneePain [address] Hien Henderson , Clinic, complaint) in right [place].Refe [place]ri [address] hipCervicalgiaR tracey CAMACHO [place], heumatoid [id number], Provider: [place], arthritisOther [place]. Faisal [place], spondylosis, tel:4 Will J , [phone] lumbar 15226 [address] , [place] regionPostlamin [place], tel: ectomy [place] 25825472 syndrome, not [place], [place], elsewhere [address] classifiedPain . in right ankle tel: 2 and joints of 7403920 right footLong term (current) use of opiate analgesic OFFICE/OUTPAT [facility] low [facility] Pain in left Pedro Specialist IENT VISIT, [facility] pain shoulderPain in [facility] 7 235 : Rohith EST Pain [place] (chief left kneePain [address] [place] Hien , Clinic, complaint) in right [place], [place].Refe rri [address] hipCervicalgiaR DOUG, tracey [place], heumatoid [id number], Provider: Jermaine Coleman . Faisal CAMACHO, spondylosis, tel: Will J , [phone] lumbar 26181 [address] , [place] regionPostlamin [place], tel: ectomy [place] 39[address]6556 syndrome, not [place], [place], elsewhere [address] classifiedPain . in right ankle tel: 2 and joints of 1687504 right footLong term (current) use of opiate analgesic OFFICE/OUTPAT [facility] low back Other Pedro Speci alist IENT VISIT, [facility] pain spondylosis, [facility]. 7235 : Rohith EST Pain [place] (chief lumbar [address] [place] Hien, Clinic, complaint) regionPostlamin [place], [place].Referri [address] ectomy [place], ng [place], syndrome, not [id number], Provide r: [place], elsewhere [place]. Faisal CAMACHO, classifiedPain tel: Will J, [phone] in right ankle 46945 [address] , [place] and joints of [place], tel: right footPain [place] 93073840 in left [place], [place], [place] [address] left kneePain . in right tel:2 hipCervicalgiaR 1111430 heumatoid arthritisLong term (current) use of opiate analgesic OFFICE/OUTPAT [facility] low back Other [facility] Speci alist IENT VISIT, [facility] pain spondylosis, [facility]. 7235 : Rohith EST Pain [place] (chief lumbar [address] [place] Hien, Clinic, complaint) regionPosamin [place], [place].Referri [address] ectomy [place], ng [place], syndrome, not [id number], Provide r: [place], elsewhere [place]. Faisal CAMACHO, classifiedPain tel:[phone] Will J, [phone] in right ankle 36046 [address] , [place] and joints of [place], tel:+195 right footPain [place] 45339649 in left [place], [place], [place] [address] 48 left kneePain . in right tel:+952 hipCervicalgiaR 5241975 heumatoid arthritisLong term (current) use of opiate analgesic OFFICE/OUTORT [facility] low back Other Pedro Speci alist IENT VISIT, [facility] pain spondylosis, [facility]. 7235 : Rohith EST Pain [place] (chief lumbar [address] [place] Hien, Clinic, complaint) [place], [place].Referri [address] ectomy [place], ng [place], syndrome, not [id number], Provide r: [place], elsewhere [place]. Faisal CAMACHO, classifiedPain tel:+4 Will J, [phone] in right ankle 92147 [address] , [place] and joints of [place], tel:+195 right footPain [place] [phone] in left [place], [place], [place] [address] left kneePain . in right tel:+952 hipCervicalgiaL 5862809 meghan term (current) use of opiate analgesicEncoun ter for therapeutic drug level monitoringRheum atoid arthritis OFFICE/OUTPAT [facility] low back Other Oct- Pedro Speci alist IENT VISIT, [facility] pain spondylosis, [facility]. 7235 : Rohith EST Pain [place] (chief lumbar [address] [place] Hien, Clinic, complaint) regionPosOxford, [place].Referri [address] ectomy [place], ng [place], syndrome, not [id number], Provide r: [place], elsewhere [place]. Faisal CAMACHO, classifiedPain tel:[phone] Will J, [phone] in right ankle 75573 [address] , [place] and joints of [place], tel:+ right footPain [place] 39621420 in left [place], [place], [place] [address] left kneePain . in right tel: hipCervicalgiaL 4088600 meghan term (current) use of opiate analgesic OFFICE/OUTPAT [facility] low back Other [facility] Speci ali IENT VISIT, [facility] pain spondylosis, [facility]. 7235 : Rohith EST Pain [place] (chief lumbar [address] Hien Henderson, Clinic, complaint) regionPosOxford, [place].Referri [address] ectomy [place], ng [place], syndrome, not [id number], Provide r: [place], elsewhere [place]. Faisal CAMACHO, classifiedPain tel: Will J, [phone] in right ankle 20255 [address] , [place] and joints of [place], tel:+ right footPain [place] 39781243 in left [place], [place], [place] [address] 48 left kneePain . in right tel: hipCervicalgiaL 7550731 meghan term (current) use of opiate analgesic OFFICE/OUTPAT [facility] low back Other [facility] Spec ali IENT VISIT, [facility] pain spondylosis, [facility]. 7235 : Rohith EST Pain [place] (chief lumbar [address] [place] Hien, Clinic, complaint) regionB[place], [place].Referri [address] ectomy DOUG, ng [place], syndrome, not [id number], Provide r: [place], elsewhere [place]. Faisal CAMACHO, classifiedPain tel: Will J, [phone] in right ankle 70501 [address] , [place] and joints of [place], tel:+ right footPain [place] 40208841 in left [place], [place], [place] [address] 48 left kneePain . in right tel: hipCervicalgiaL 5538262 meghan term (current) use of opiate analgesic [facility] assisted May- [facility] (current) use [facility] 7235 Pain [place] of opiate [address] [place], Clinic, analgesicEncoun [place], [address] for [place], [place], therapeutic [id number], [place], drug level [place]. [place], monitoring tel: [phone] , [place] tel: [phone] OFFICE/OUTPAT [facility] low back Other May- [facility] Speci alist IENT VISIT, [facility] pain spondylosis, [facility]. 7235 : Rohith EST Pain [place] (chief lumbar 1 [address] [facility], Clinic, complaint) [place], [place].Referri [address] ectomy [place], ng [place], syndrome, not [id number], Provide r: [place], elsewhere [place]. Faisal [place], classifiedPain tel: Will J, [phone] in right ankle 95733 [address] , [place] and joints of [place], tel:+ right footPain [place] 25583346 in left [place], [place], [place] [address] 48 left kneePain . in right tel: hipCervicalgiaL 7816580 meghan term (current) use of opiate analgesicEncoun ter for therapeutic drug level monitoring OFFICE VISIT, [facility] low back Other [facility] pain spondylosis, [facility]. 7235 : R oy TELEMEDICINE Pain [place] (chief lumbar [address] [place] [facility], complaint) [facility]Postl[facility], [address] ectomy [place], Rd [address] [place], syndrome, not [id number], 140, [place], elsewhere [place]. [place], classifiedPain tel:284 , [place] , [phone] in right ankle 86619 [address]5614. , [place] and joints of tel:+ tel:+ right footPain 9846734 Ref 37758213 in left erring shoulderPain in Provider : left kneePain Faisal in right Will J, hipCervicalgiaL [address] s meghan term [place], (current) use [place] of opiate [place], [place], analgesicEncoun [address] for . therapeutic tel: drug level [phone] monitoring OFFICE VISIT, [facility] low back Other [facility] pain spondylosis, [facility] 7235 : R oy TELEMEDICINE Pain [place] (chief lumbar 0 [address] [facility], Clinic, complaint) [facility]PostlD[facility], [address] ectomy [place], Rd [address] [place], syndrome, not [id number], 140, [place], elsewhere [place]. [place], classifiedPain tel:284 , [place] , [phone] in right ankle 57847 [address]. , [place] and joints of tel: tel: right footPain 6884375 Ref 80614287 in left erring shoulderPain in Provider : left kneePain Faisal in right Will J, hipCervicalgiaL [address] s meghan term [place], (current) use [place] of opiate [place], [place], analgesic [address] . tel:[phone] OFFICE/OUTPAT [facility] low back Other Nov- [facility]osis, 0- [facility] 7235 : Rohith EST Pain [place] (chief lumbar 0 [address] [facility], [facility], complaint) [facility]PosRed [facility], [address] ectomy [place], Rd [address] [place], syndrome, not [id number], 140, [place], elsewhere [place]. [place], classifiedPain tel:284 , [place] , [phone] in right ankle 79658 [address]. , [place] and joints of tel: tel:+ right footPain 6822531 Ref 91104348 in left erring shoulderPain in Provider : left kneePain Faisal in right Will J, hipLong term [address] (current) use [place], of opiate [place] analgesicCervic s, [place], [place] [address] . tel:[phone] OFFICE/OUTPAT [facility] low back assisted Pedro Spe cialist IENT VISIT, [facility] pain (current) use [facility] 723 5 : Rohith EST Pain [place] (chief of opiate 0 [address] Hien Henderson, Clinic, complaint) analgesicPostla [place], [address] minectomy [place], Rd [address] [place], syndrome, not [id number], 140, [place], elsewhere [place]. [place], classifiedPain tel:284 , [place] , 110831818 in right ankle 67768 [address]50. , [place] and joints of tel: tel: right footPain 5857181 Ref 65851621 in left erring shoulderOther Provider: spondylFaisal man lumbar Will J, regionPain in [address] left kneePain [place], [place], [address] . tel:[phone] OFFICE VISIT, [facility] low back Postlaminectomy [facility] pain syndrome, not [facility] 7235 : Rohith TELEMEDICINE Pain [place] (chief elsewhere 0 [address] Narendra Henderson r, Clinic, complaint) classifiedPain [place], [address] in right ankle [place], Rd [address] [place], and joints of [id number], 140, [place], right footPain [place]. Margot mclaughlin [place], in left tel:284 , [place], [phone] shoulderLong [address]103 [address]. , [place] term (current) tel: 2 tel: use of opiate [id number] ef [id number] analgesicOther erring spondylosis, Provider: lumbar Faisal regionPain in Will J, left kneePain [address] in right hip [place], [place], [address] . tel:[phone] OFFICE VISIT, [facility] low back Postlaminectomy May- [facility] pain syndrome, not [facility] 7235 : Rohith TELEMEDICINE Pain (chief elsewhere 0 [address] Narendra Henderson r, Clinic, complaint) classifiedLow [place], [address] back painPain [place], Rd [address] [place], in right ankle [id number], 140, [place], and joints of [place]. [place] CAMACHO, right footLong tel:[phone] , [place] , [phone] term (current) 56283 88090. , [place] use of opiate tel: tel: analgesicPain [id number] ef [id number] in left erring shoulder Provider: Faisal Calderón, [address] [place], [address] . tel:[phone] OFFICE/OUTPAT [facility] low back Postlaminectomy Fransisco flores Specialist IENT VISIT, [facility] pain syndrome, not 6- [facility]. 723 5 : Rohith EST Pain [place] (chief elsewhere 0 [facility] [place] [facility], Clinic, complaint) [place] [address] [address] back painLong [place], Rd [address] [place], term (current) [id number], 140, [place], use of opiate [place]. [place] CAMACHO, analgesicPain tel:284 , [place], [phone] in right ankle 21790 [address]. , [place] and joints of tel: tel: right foot [phone] [id number] erring Provider: Faisal Calderón, [address] [place], [address] . tel:[phone] OFFICE/OUTORT [facility] low back Postlaminectomy Jan- Fransisco flores Specialist IENT VISIT, [facility] pain syndrome, not 7- [facility]. 723 5 : Rohith EST Pain [place] (chief elsewhere 9 [facility] Clinic, complaint) classifiedLow [place], [address] back painPain [place], Rd [address] [place], in right [id number], 140, [place], handLong term [place]. [place] CAMACHO, (current) use tel:284 , [place], [phone] of opiate [address]. , [place] analgesic tel: tel: [phone] erring Provider: Faisal Calderón, 7[address] [facility] [place], [address] . tel:[phone] OFFICE/OUTPAT [facility] low back intermediate card tender Oct-3 Pedro Spe cialist IENT VISIT, [facility] pain (current) use 0-201 [facility] 723 5 : Rohith EST Pain [place] (chief of opiate [address] [place]Hien, Clinic, complaint) analgesicPostla [place], [address] minectomy [place], Rd [address] [place], syndrome, not [id number], 140, [place], elsewhere [place]. [place] CAMACHO, classifiedLow tel:[phone] , DOUG, [phone] back pain 56330 07333. , [place] tel: tel: [phone] [phone] erring Provider: Faisal Calderón, 7[address] [facility] [place], [address] . tel:[phone] OFFICE/OUTPAT [facility] low back Postlaminectomy Sep- Kangharley s Specialist IENT VISIT, [facility] pain syndrome, not 0-201 [facility]. 723 5 : Rohith EST Pain [place] (chief elsewhere 9 [facility] Hien [place], Clinic, complaint) classifiedLow [place], 77 70 [place] [address] back painLong [place], Rd [address] [place], term (current) [id number], 140, [place], use of opiate [place]. Lakesha CAMACHO, analgesic tel:+[phone] , DOUG, [id number] [phone] 91520. , [place] tel: tel: [phone] erring Provider: Faisal Calderón, 7[address] [facility] [place], [address] . tel:[phone] OFFICE/OUTPAT [facility] low back Pain in right Jose-0 Pedro Specialist IENT VISIT, [facility] pain handLow back 1-201 [facility]. 7235 : Rohith EST Pain [place] (chief painPostlaminec 9 De Olman [place] er, Clinic, complaint) pricilla syndrome, [place], 7 770 [place] [address] not elsewhere [place], Rd [address] [place], classifiedEncou [id number], 140, [place], nter for [place]. Lakesha CAMACHO, therapeutic tel:284 , DOUG, [id number] drug level [phone] 91737. , [place] monitoringLong tel: 2 tel: term (current) [phone] Ref [id number] use of opiate erring analgesic Provider: Faisal Calderón, 7[address] [facility] [place], [address] . tel:[phone] OFFICE/OUTPAT [facility] low back Postlaminectomy Apr-2 Fransisco flores Specialist IENT VISIT, [facility] pain syndrome, not [facility]. 723 5 : Rohith EST Pain [place] (chief elsewhere 9 [facility] Clinic, complaint) classifiedLow [place], 77 70 [place] [address] back painLong [place], Rd [address] [place], term (current) [id number], 140, [place], use of opiate [place]. Lakesha CAMACHO, analgesicPain tel:284 , DOUG, [id number] in right hand 64352 68322. , [place] tel: tel: [phone] erring Provider: Faisal Calderón, 7[address] [facility] [place], [address] . tel:[phone] OFFICE/OUTPAT [facility] low back Intervertebral Mar-0 Pedro Specialist IENT VISIT, [facility] pain disc disorders 4-201 [facility]. 72 35 : Rohith EST Pain [place] (chief with 9 [facility] [place] [facility], complaint) myelopathy, [place], [address] [place] [address] lumbar [place], Rd [address] [place], regionLow back [id number], 140, [place], painLong term [place]. [place] DOUG, (current) use tel:284 , DOUG, [id number] of opiate 28120 54901. , [place] analgesic tel: tel: [phone] erring Provider: Faisal Calderón, 7[address] [facility] [place], [address] . tel:[phone] OFFICE/OUTORT [facility] low back Postlaminectomy Jan- Fransisco flores Specialist IENT VISIT, [facility] pain syndrome, not 8-201 [facility]. 723 5 : Rohith EST Pain [place] (chief elsewhere 8 [facility], complaint) classifiedInter [place], [address] [place] [address] vertebral disc [place], Rd [address] [place], disorders with [id number], 140, [place], myelopathy, [place]. [place], lumbar tel:[phone] , [place], [phone] regionLow back 60731 39277. , [place] pain tel: tel: [phone] [phone] erring Provider: Faisal Calderón, 7[address] [facility] [place], [address] . tel:[phone] OFFICE/[facility] low back Postlaminectomy Nov-0 Fransisco flores Specialist IENT VISIT, [facility] pain syndrome, not 2-201 [facility]. 723 5 : Rohith EST Pain [place] (chief elsewhere 8 [facility] [place] [facility], complaint) classifiedInter [place], 7373 [address] vertebral disc [place], Haven Clara [place], disorders with [id number], [address] [place], myelopathy, [place]. 306, [place], lumbar tel:284 [place], [place], [phone] regionLow back 18886 79742. , [place] painLong term tel: tel: (current) use [id number] ef [id number] of opiate erring analgesic Provider: Faisal Calderón, 7[address] [facility] [place], [address] . tel:[phone] OFFICE/OUTORT [facility] low back Postlaminectomy Sep- Kasey mclaughlin Specialist IENT VISIT, [facility] pain syndrome, not 8-201 Chuck. 14 55 : Rohith EST Pain [place] (chief elsewhere [address] [facility] [address] Hien, Clinic, complaint) [facility] 100, 7373 [address] back pain [place], Haven Souza ve [place], DOUG, S [address] [place], [id number], 306, [place], [place]. DOUG Coleman, [id number] tel:[phone]. , [place] [address] tel:+ tel:+ [phone] erring Provider: Faisal Calderón, [address] [place], [address] . tel:[phone] OFFICE/OUTPAT [facility] low back Low back Jose-0 Pedro Spec ialist IENT VISIT, [facility] pain painPostlaminec 5-201 [facility]. 7 235 : Rohith EST Pain [place] (chief pricilla syndrome, 8 [address] [place], Narendra r, Clinic, complaint) not elsewhere [place], 73 73 [address] classified DOUG, Haven [place], [id number], S [address] [place], [place]. 306, [place], tel:+[phone] DOUG Coleman, [phone] 38230 73441. , [place] tel: tel: [phone] [phone] erring Provider: Faisal Cadlerón, [address] [place], [address] . tel:[phone] OFFICE/OUTPAT [facility] low back Low back May-0 Pedro Spec ialist IENT VISIT, [facility] pain painPostlaminec 3-201 [facility]. 7 235 : Rohith EST Pain [place] (chief pricilla syndrome, [address] [place], Narendra r, Clinic, complaint) not elsewhere [place], 73 73 [address] classified DOUG, Haven Elizabeth [place], [id number], S [address] [place], [place]. 306, [place], tel:+[phone] DOUG Cole[place], [id number] 88849 08735. , [place] tel: tel:+ [phone] erring Provider: Faisal Calderón, [address] [place], [address] . tel:[phone] OFFICE/OUTPAT [facility] low back Low back Mar-0 Pedro Spec ialist IENT VISIT, [facility] pain painPostlaminec 6-201 [facility]. 7 235 : Rohith EST Pain [place] (chief pricilla syndrome, [address] [place], Moelle r, Clinic, complaint) not elsewhere [place], 73 73 [address] classified DOUG, Haven [place], [id number], S [address] [place], [place]. 306, [place], tel:[phone] [place], DOUG, [id number] 04467 30508. , [place] tel: tel:+ [phone] erring Provider: Faisal Calderón, [address] Shir[address] [place], [address] . tel:[phone] OFFICE/OUTPAT [facility] low back Low back Dennis-0 Pedro Spec ialist IENT VISIT, [facility] pain painPostlaminec 3-201 [facility]. 7 235 : Rohith EST Pain [place] (chief pricilla syndrome, [address] [place], Moelle r, Clinic, complaint) not elsewhere [place], 73 73 [address] classified DOUG, Haven [place], [id number], S [address] [place], [place]. 306, [place], tel:+[phone] DOUG Coleman, [phone] 18440 82151. , [place] tel: tel: [phone] erring Provider: Faisal Calderón, [address] [place], [address] . tel:[phone] OFFICE/OUTPAT [facility] low back Low back Nov-0 Pedro Spec ialist IENT VISIT, [facility] pain painPostlaminec 6-201 [facility]. 7 235 : Rohith EST Pain [place] (chief pricilla syndrome, [address] [place], Moelle r, Clinic, complaint) not elsewhere [place], 73 73 [address] classified DOUG, Haven [place], [id number], S Suite [place], [place]. 306, [place], tel:+[phone] DOUG Coleman, [phone] 93980 92328. , [place] tel:+ tel: [phone] [phone] erring Provider: Faisal Calderón, [address] [place], [address] . tel:[phone] OFFICE/OUTORT [facility] low back Low back Sep-0 Pedro Spec ialist IENT VISIT, [facility] pain painPostlaminec 8-201 [facility]. 7 235 : Rohith EST Pain [place] (chief pricilla syndrome, [address] [place], Moelle r, Clinic, complaint) not elsewhere [place], 73 73 [address] classified DOUG, Haven [place], [id number], S Suite [place], [place]. 306, [place], tel: DOUG [place], [phone] 71250 16145. , [place] tel: tel: [phone] erring Provider: Faisal Calderón, [address] [place], [address] . tel:[phone] OFFICE/OUTORT [facility] low back Low back Jose-0 Pedro Spec ialist IENT VISIT, [facility] pain painPostlaminec 7-201 [facility]. 7 235 : Rohith EST Pain [place] (chief pricilla syndrome, 7 [address] [place], Moelle r, Clinic, complaint) not elsewhere [place], 73 73 [address] classified DOUG, Haven Hnederson, [id number], S [address] [place], [place]. 306, [place], tel: [place], DOUG, [id number] 92593 [phone]. , [place] tel: tel: [phone] erring Provider: Faisal Calderón, [address] [place], [address] . tel:[phone] OFFICE/OUTORT [facility] low back Low back pain May-0 Pedro Specialist IENT VISIT, [facility] pain 9-201 [facility]. 7235 : Ro y EST Pain [place] (chief 7 [address] [place], Hien, Clinic, complaint) [place], 7373 [address] DOUG, Haven [place], [id number], S [address] [place], [place]. 306, [place], tel:+[phone] DOUG Coleman, [phone] 17270 91282. , [place] tel:+23 tel:[phone] [phone] erring Provider: Faisal Calderón, [address] [place], [address] . tel:[phone] OFFICE/OUTPAT [facility] low back Low back pain Mar-1 Pedro Specialist IENT VISIT, [facility] pain 0-201 [facility]. 7235 : Ro y EST Pain [place] (chief [address] [place], Hien, Clinic, complaint) [place], 7373 [address] DOUG, Haven [place], [id number], S [address] [place], [place]. 306, [place], tel:[phone] DOUG Coleman, [phone]. , [place] tel:+81 tel:[phone] erring Provider: Faisal Calderón, [address] [place], [address] . tel:[phone] OFFICE/OUTPAT [facility] low back Low back pain Dennis-0 Pedro Specialist IENT VISIT, [facility] pain 3-201 [facility]. 7235 : Ro y EST Pain [place] (chief 7 [facility] [place], Hien, Clinic, complaint) [place], 7373 [address] DOUG, Haven [place], [id number], S Suite [place], [place]. 306, [place], tel:+[phone] DOUG Coleman, [phone] 88134 18039. , [place] tel:+01 tel:[phone] [phone] erring Provider: Faisal Calderón, [address] [place], [address] . tel:[phone] OFFICE/OUTPAT [facility] low back Low back Nov-0 Pedro Spec ialist IENT VISIT, [facility] pain painPostlaminec 4-201 [facility]. 7 235 : Rohith EST Pain [place] (chief pricilla syndrome, [address] [place], [place] r, Clinic, complaint) not elsewhere [place], 73 73 [address] classified [place], Haven [place], [id number], S [address] [place], [place]. 306, [place], tel:[phone] [place], [place], [id number] 76054 80103. , [place] tel:+ tel: [phone] [phone] erring Provider: Faisal Calderón, [address] [place], [address] . tel:[phone] OFFICE/OUTPAT [facility] low back Low back Sep-0 Pedro Spec ialist IENT VISIT, [facility] pain painPain in [facility]. 7235 : Rohith EST Pain [place] (chief left shoulder 6 OhHien Jones , Clinic, complaint) [place], 7373 [address] DOUG, Haven Elizabeth [place], [id number], S Suite [place], [place]. 306, [place], tel:[phone] DOUG Coleman, [phone] 47750 60448. , [place] tel: tel: [phone] [phone] erring Provider: Faisal Calderón, [address] [place], [address] . tel:[phone] OFFICE/OUTPAT [facility] low back Low back Jose-0 Pedro Spec ialist IENT VISIT, [facility] pain painPain in [facility]. 7235 : Rohith EST Pain [place] (chief left 6 OhHien Jones, Clinic, complaint) shoulderPain in [place], 7373 [address] right ankle and [place], Haven [place], joints of right [id number], S Priscilla te [place], foot [place]. 306, [place], tel:[phone] [place], [phone] 63240 13299. , [place] tel:+ tel:+ [phone] erring Provider: Faisal Calderón, [address] [place], [address] . tel:[phone] OFFICE/OUTPAT [facility] low back Low back June- Pedro Spec ialist IENT VISIT, [facility] pain painPain in [facility]. 7235 : Rohith EST Pain [place] (chief left shoulder 6 [address] [place], Hien , Clinic, complaint) [place], 7373 [address] [place], Haven [address] [place], [id number], S [address] [place], [place]. 306, [place], tel:[phone] [place], [place], [phone] 30816 82823. , [place] tel: tel:+ [phone] erring Provider: Faisal Calderón, [address] [place], [address] . tel:[phone] OFFICE/OUTPAT [facility] low back Low back Apr- Pedro Spec ialist IENT VISIT, [facility] pain painPain in [facility]. 7235 : Rohith EST Pain [place] (chief left shoulder 6 [address] [place], Hien , Clinic, complaint) [place], 7373 [address] [place], Haven [address] [place], [id number], S Suite [place], [place]. 306, [place], tel:+[phone] DOUG Coleman, [phone] [phone] 50585. , [place] tel: tel: [phone] [phone] erring Provider: Faisal Calderón, [address] [place], [address] . tel:[phone] OFFICE/OUTPAT [facility] low back Low back Pedro Spec ialist IENT VISIT, [facility] pain painPain in [facility]. 7235 : Rohith EST Pain [place] (chief right ankle and 6 [address] [place], Mo[place] er, Clinic, complaint) joints of right [place], 7373 [address] footPain in [place], Haven [address] [place], left shoulder [id number], S Suite [place], [place]. 306, [place], tel:+[phone] [place], [place], [phone] [phone] 76854. , [place] tel:+ tel: [phone] erring Provider: Faisal Jaspreet Kaitlynn, [address] [place], [address] . tel:[phone] OFFICE/OUTPAT [facility] low back Low back Nov-0 Pedro Spec ialist IENT VISIT, [facility] pain painPostlaminec 6- Mecry. 7 235 : Rohith EST Pain [place] (chief pricilla syndrome, [address] [place], Moelle r, Clinic, complaint) not elsewhere [place], 73 73 [address] classified [place], Haven Che [place], [id number], S [address] [place], [place]. 306, [place], tel: [place], [place], [phone] 31673. , [place] tel: tel: [phone] OFFICE/OUTPAT [facility] low back Ankylosis of [facility] Specialist IENT VISIT, [facility] pain ankle and foot 4 [facility]. 72 35 : Rohith EST Pain [place] (chief jointDegenerati 5 [address] [place], [place] er, Clinic, complaint) on of lumbar or [place], 7373 [address] lumbosacral [place], Haven [address] [place], intervertebral [id number], S [address] [place], discEnthesopath [place]. 306, [place], y of hip tel: DOUG Coleman, [phone] regionIntervert [phone]. , [place] ebral disc tel: tel: disorder with [phone] myelopathy, lumbar regionLumbagoPa in in joint involving ankle and footPain in joint involving lower legPostlaminect nikita syndrome of lumbar regionPain in joint involving shoulder region OFFICE/OUTPAT [facility] low back Ankylosis of [facility] Specialist IENT VISIT, [facility] pain ankle and foot 6-201 Meryc. 72 35 : Rohith EST Pain [place] (chief jointDegenerati 5 [address] [place], Moell er, Clinic, complaint) on of lumbar or [place], 7373 [address] lumbosacral [place], Haven [address] [place], intervertebral [id number], S [address] [place], discEnthesopath [place]. 306, [place], y of hip tel: [place], [place], [phone] regionIntervert [phone] 83119. , [place] ebral disc tel: tel: disorder with [phone] myelopathy, lumbar regionLumbagoPa in in joint involving ankle and footPain in joint involving lower legPostlaminect nikita syndrome of lumbar region OFFICE/OUTPAT [facility] low back Acquired Pedro Spec ialist IENT VISIT, [facility] pain musculoskeletal 3-201 [facility]. 7 235 : Rohith EST Pain [place] (chief deformity of 5 [facility] [place], Clinic, complaint) unspecified [place], [facility] 7[address] [facility] siteAnkylosis [place], Haven [place], of ankle and [id number], S [address] [place], foot [place]. 306, [place], jointDegenerati tel: [place], [place], [phone] on of lumbar or [phone] 32137. , [place] lumbosacral tel: tel: intervertebral [phone] discEnthesopath y of hip regionIntervert ebral disc disorder with myelopathy, lumbar regionLumbagoPa in in joint involving ankle and footPain in joint involving lower legPostlaminect nikita syndrome of lumbar region OFFICE/OUTPAT [facility] low back Ankylosis of Pedro Specialist IENT VISIT, [facility] pain ankle and foot 8-201 [facility]. 72 35 : Rohith EST Pain [place] (chief jointDegenerati 5 [facility] Olman Henderson er, Clinic, complaint) on of lumbar or [place], 7373 [address] lumbosacral [place], Haven [place], intervertebral [id number], S [address] [place], discEnthesopath [place]. 306, [place], y of hip tel: [place], [place], [phone] regionIntervert [phone]. , [place] ebral disc tel: tel: disorder with [phone] myelopathy, lumbar regionLumbagoPa in in joint involving ankle and footPain in joint involving lower legPostlaminect nikita syndrome of lumbar region OFFICE/OUTPAT [facility] low back Degeneration of Fransisco flores Specialist IENT VISIT, [facility] pain lumbar or 6201 [place]. 7235 : Rohith EST Pain [place] (chief lumbosacral 5 [address] Hien [place], Clinic, complaint) intervertebral [place], 7 373 [address] discEnthesopath [place], Haven Dimae [place], y of hip [id number], S [address] [place], regionIntervert [place]. 306, [place], ebral disc tel: [place], M N, [id number] disorder with [phone]. , [place] myelopathy, tel: tel: lumbar [phone] regionLumbagoPa in in joint involving ankle and footPain in joint involving lower legPostlaminect nikita syndrome of lumbar regionAnkylosis of ankle and foot joint OFFICE/OUTPAT [facility] Back Pain Ankylosis of Pedro Specialist IENT VISIT, [facility] (chief ankle and foot 0-201 [facility]. 72 35 : Rohith EST Pain [place] complaint) jointDegenerati 4 [address] Bean Hendersoner, Clinic, on of lumbar or [place], 737 3 [address]235 [address] lumbosacral [place], Haven [place], intervertebral [id number], S [address] [place], discEnthesopath [place]. 306, [place], y of hip tel: [place], [place], [phone] regionIntervert [phone]. , [place] ebral disc tel: tel: disorder with [phone] myelopathy, lumbar regionLumbagoPo stlaminectomy syndrome of lumbar region OFFICE/OUTPAT [facility] back pain Postlaminectomy Jayden jj Specialist IENT VISIT, [facility] (chief syndrome of [facility]. 7235 : Rohith EST Pain [place] complaint) lumbar 4 [address] Hien Henderson, Clinic, regionPain in [place], 7373 [address] joint involving [place], Haven [place], ankle and [id number], S [address] [place], footLumbago [place]. 306, [place], tel: DOUG Coleman, [phone] [phone] 42421. , [place] tel: tel: [phone] OFFICE/OUTPAT [facility] low back Postlaminectomy Sep- Monico Specialist IENT VISIT, [facility] pain syndrome of Ayana. : Rohith EST Pain [place] (chief lumbar 4 [address] Hien, Clinic, complaint) regionPain in [place], 7373 [address] joint involving [place], F jatin Dimairis [place], ankle and foot [place], S Suite [place], [id number], 306, [place], [place]. DOUG Coleman, [id number] tel: [phone]. , [place] [address] tel: tel: [phone] OFFICE/OUTPAT [facility] back and Pain in joint Pedro Specialist IENT VISIT, [facility] right foot involving ankle 7 [facility] . 7235 : Rohith EST Pain [place] pain and footLumbago 4 [address] Olman Henderson , Clinic, (chief [place], 7373 [address] complaint) [place], Haven [place], [id number], S [address] [place], [place]. 306, [place], tel: DOUG Coleman, [phone] [phone] 15298. , [place] tel: tel: [phone] OFFICE/OUTPAT [facility] back and Pain in joint Pedro Specialist IENT VISIT, [facility] right foot involving ankle 3-201 [facility] . 7235 : Rohith EST Pain [place] pain and 4 [address] Hien [place], Clinic, (chief footLumbagoPain [place], 737 3 7235 [address] complaint) in joint DOUG, Haven Henderson, involving lower [id number], S [address] [place], leg [place]. 306, [place], tel: DOUG Coleman, [phone] 36122 21732. , [place] tel: tel: [phone] OFFICE/OUTPAT [facility] right foot Pain in joint Kanga s Specialist IENT VISIT, [facility] pain involving ankle 4-201 [facility]. 7 235 : Rohith EST Pain [place] (chief and footLumbago 4 [address] [place], Moell er, Clinic, complaint) [place], 7373 [address] low back [place], Haven [address] [place], pain [id number], S Suite [place], (chief [place]. 306, [place], complaint) tel:+[phone] [place], M N, [id number] 01917 00660. , [place] tel:+29 tel:[phone] [place] [address] No Information Will Faisal. [facility] 8- [address] Pain [place] 4 [place], Clinic, [place], [address] [place], [place], [id number], [place], [place], tel:[phone] 66761 , [place] tel:+ [phone] OFFICE/OUTPAT [facility] right foot Pain in joint Will Faisal. Specialist IENT VISIT, [facility] pain involving ankle 3-201 7235 Oh[address] s : Rohith EST Pain [place] (chief and foot 4 [place], Hien, Clinic, complaint) [place], 7373 [address] [place], Haven [place], [id number], S Suite [place], [place]. 306, [place], tel:+[phone] [place], [place], [phone] [phone] 49788. , [place] tel:+ tel:+ [phone] [place] [address] right foot Pain in joint No [facility] pain involving ankle 2-201 Information : Rohith Pain [place] (chief and foot 3 Hien, Clinic, complaint) [address] Haven Clara [place], [address] [place], 306, [place], [place], [place], [id number] 18493. , [place] tel:+ tel:[phone] OFFICE/OUTPAT [facility] right foot Pain in joint Sep- No Specialist IENT VISIT, [facility] pain involving ankle 1-201 Informat ion : Rohith EST Pain [place] (chief and foot 3 Hien, Clinic, complaint) [address] Haven [place], [address] [place], 306, [place], [place], [place], [id number] 12099. , [place] tel: tel: [phone] OFFICE/OUTPAT [facility] right foot Pain in joint No Specialist IENT VISIT, [facility] pain involving ankle 6-201 Informat ion : Rohith EST Pain [place] (chief and foot 3 Hien, Clinic, complaint) [address] Haven [place], [address] [place], 306, [place], [place], [place], [id number] 94768. , [place] tel: tel: [phone] OFFICE/OUTPAT [facility] right foot Pain in joint No Specialist IENT VISIT, [facility] pain involving ankle 9-201 Informat ion : Rohith EST Pain [place] (chief and 3 Hien, Clinic, complaint) footDegeneratio 7373 [address] n of lumbar or Haven Henderson, lumbosacral S [address] [place], intervertebral 306, [place], disc [place], [place], [id number] 08562. , [place] tel: tel: [phone] OFFICE/OUTPAT [facility] right foot Pain in joint No Specialist IENT VISIT, [facility] pain involving ankle 0-201 Informat ion : Rohith EST Pain [place] (chief and foot 3 Hien, Clinic, complaint) [address] Haven Clara [place], [address] [place], 306, [place], [place], [place], [id number] 77540. , [place] tel: tel: [phone] OFFICE/OUTPAT [facility] right foot Pain in joint No Specialist IENT VISIT, [facility] pain involving ankle 1-201 Informat ion : Rohith EST Pain [place] (chief and foot 2 Hien, Clinic, complaint) [address]373 [address] Haven [place], [address] [place], 306, [place], [place], [place], 787076044 70986. , [place] tel: tel: [phone] OFFICE/OUTPAT [facility] right foot Pain in joint No Specialist IENT VISIT, [facility] pain involving ankle 4-201 Informat ion : Rohith EST Pain [place] (chief and foot 2 Hien, Clinic, complaint) [address] Haven Elizabeth [place], [address] [place], 306, [place], [place], [place], [id number] 07661. , [place] tel: tel: [phone] OFFICE/OUTPAT [facility] right foot Pain in joint Will Faisla. IENT VISIT, [facility] pain involving ankle 2- 7235 [address] s EST Pain [place] (chief and foot 2 [place], Clinic, complaint) [place], [address] [place], [id number], [place], [place]. [place], tel:[phone] 78336 , [place] tel: [phone] OFFICE/OUTPAT [facility] right foot Pain in joint Will Faisal. IENT VISIT, [facility] pain involving ankle [address] EST Pain [place] (chief and foot 2 [place], Clinic, complaint) [place], [address] [place] CAMACHO, [id number], [place], [place], tel:[phone] , [place] tel: [phone] OFFICE/OUTPAT [facility] right foot Pain in joint Will Faisal. IENT VISIT, [facility] pain involving ankle [address] Pain [place] (chief and foot 2 [place], Clinic, complaint) [place], [address] [place] CAMACHO, [id number], [place], [place], tel:[phone] , [place] tel: [phone] OFFICE/OUTPAT [facility] right foot Pain in joint Will Faisal. IENT VISIT, [facility] pain involving ankle [address] Pain [place] (chief and 2 [place], Clinic, complaint) footEnthesopath [place], [address] y of hip region [place] CAMACHO, [id number], [place], [place], tel:[phone] , [place] tel:[phone] OFFICE/OUTPAT [facility] right foot Pain in joint Will Faisal. IENT VISIT, [facility] pain involving ankle 0-201 [address] EST Pain [place] (chief and foot 1 [place], Clinic, complaint) [place], [address] [place], [place], [id number], [place], tel: [phone] , [place] tel: [phone] OFFICE/OUTPAT [facility] right foot Pain in joint Will Faisal. IENT VISIT, [facility] pain and involving ankle 4-201 [address] Pain [place] low back and 1 [place], Clinic, pain footInterverteb [place], [address] (chief ral disc [place], [place], complaint) disorder with [id number], [place], myelopathy, [place], lumbar region tel: [phone] , [place] tel: [phone] OFFICE/OUTPAT [facility] low back Intervertebral Will Harley dorman. IENT VISIT, [facility] pain disc disorder 5-201 [address] Pain [place] (chief with 1 [place], Clinic, complaint) myelopathy, [place], [address] right foot lumbar [place], [place], pain regionPain in [id number], [place], (chief joint involving [place], complaint) ankle and foot tel: [phone] , [place] tel: [phone] OFFICE/OUTPAT [facility] right foot Pain in joint Will Faisal. IENT VISIT, [facility] pain involving ankle 8-201 [address] EST Pain [place] (chief and 1 [place], Clinic, complaint) footInterverteb [place], [address] low back ral disc [place], [place], pain disorder with [id number], [place], (chief myelopathy, [place], complaint) lumbar region tel: [phone] , [place] tel: [phone] OFFICE/OUTPAT [facility] right foot Pain in joint Will Faisal. IENT VISIT, [facility] pain involving ankle 7-201 [address] Pain [place] (chief and 1 [place], Clinic, complaint) footAcquired [place], [address] musculoskeletal [place], [place], deformity of [id number], [place], [place], site tel:[phone] , [place] tel:[phone] OFFICE/OUTPAT [facility] right foot Acquired Will Noah moulton IENT VISIT, [facility] pain musculoskeletal [address] Pain [place] (chief deformity of 1 [place], Clinic, complaint) unspecified [facility] [address] sitePain in [place], [place], joint involving [id number], [place], ankle [place] foot [place], tel:[phone] , [place] tel:[phone] OFFICE/OUTPAT [facility] right foot Pain in joint Will IENT VISIT, [facility] pain involving ankle [address] Pain [place] (chief and 0 [place], Clinic, complaint) footAcquired [place] [address] musculoskeletal [place], [place], deformity of [id number], [place], [place], site tel:[phone] , [place] tel:[phone] [facility] Acquired Will Noah moulton IENT VISIT, [facility] pain musculoskeletal [address] Pain [place] (chief deformity of 0 [place], Clinic, complaint) unspecified [place], [facility] [place] sitePain in [place], [place], joint involving [id number], [place], ankle and foot [place], tel:[phone] , [place] tel:[phone] [facility] Acquired Will Noah moulton IENT VISIT, [facility] pain musculoskeletal [address] EST Pain [place] (chief deformity of 0 [place], Clinic, complaint) unspecified [place], [facility] [place] sitePain in [place], [place], joint involving [id number], [place], ankle and [place], footAnkylosis tel:[phone] of ankle and [address]248 , [place] foot joint tel: [phone] OFFICE/OUTPAT [facility] right foot Pain in joint Will Faisal. IENT VISIT, [facility] pain involving ankle 3-201 [address] Pain [place] (chief and 0 [place], Clinic, complaint) footAcquired [place] [address] [address] musculoskeletal [place], [place], deformity of [id number], [place], [place], site tel: [phone] , [place] tel: [phone] [facility] right foot Acquired Will Faisal. [facility] pain musculoskeletal 7-201 [address] Pain [place] (chief deformity of 0 [place], Clinic, complaint) unspecified [place] [address] [address] sitePain in [place], [place], joint involving [id number], [place], ankle [place] foot [place], tel: [phone] , [place] tel: [phone] OFFICE/OUTPAT [facility] foot pain Pain in joint Will Harley dorman. IENT VISIT, [facility] (chief involving ankle 4-201 [address] Pain [place] complaint) and 0 [place], Clinic, footAcquired [place] [address] [address] [place]culoskeletal [place], [place], deformity of [id number], [place], [place], siteAnkylosis tel:[phone] of ankle and [address] , [place] foot jointViral tel: [phone] OFFICE/OUTPAT [facility] right foot Pain in joint Will Faisal. IENT VISIT, [facility] pain involving ankle 0-200 [address] Pain [place] (chief and 9 [place], Clinic, complaint) footAcquired [place] [address] [address] [place]culoskeletal [place], [place], deformity of [id number], [place], [place], siteAnkylosis tel:[phone] of ankle and [address] , [place] foot joint tel: [phone] [facility] Foot pain Pain in joint Will Faisal. [facility] (chief involving ankle 0-200 [address] Pain [place] complaint) and 9 [place], Clinic, footAcquired [place], [address] musculoskeletal [place], [place], deformity of [id number], [place], [place], site tel:[phone] , [place] tel:[phone] [facility] right foot Ankylosis of Will Faisal. [facility] pain ankle and foot 6-200 [address] [place] (chief joint 9 [place], Clinic, complaint) [place], [address] [place], [place], [id number], [place], [place], tel:[phone] , [place] tel:[phone] Family History Family Member Type Diagnosis Age At Onset Mother Problem (finding) back pain Payers Payer name Insurance type Covered constitution party ID Authorization(s ) AARP MedicareComplete Replacement 16 [id number] Social History Type Description Quantity Date Captured Comments Alcohol Use Details Unknown Caffeine Use Details Unknown Tobacco Use Status No Information Smoking Status No Information Sex Female Chief Complaint And Reason For Visit From encounter dated 02/04/2022 15:00'. low back pain (chief complaint). Description: Severity level is 3. Duration: chronic. The problem isstable. It occurs intermittently. The client describes the pain as an ache, burning and sharp. Symptoms are aggravated by bending, standing, twisting, walking and prolonged positioning. Symptoms are relieved by ice, lying down, pain meds/drugs, rest, sitting and changing positions. Reason For Referral Reason For Referral No Information Plan Of Treatment Date Type Action Status Goal FIT. Due on due Goal Weight. Due on due Goal Unhealthy drug use screening. Du e on due Goal Order Annual PT. Due on 022 due Goal Height. Due on due Goal Tobacco Use. Due on due Goal Update Social History. Due on due Goal Review Allergy List. Due on due Goal FIT-DNA. Due on due Goal UDT. Due on due Goal ROLLING MACHINE TENDER Paperwork. Due on due Goal AST (SGOT). Due on d ue Goal Lipid panel. Due on due Goal CT-Colonography. Due on 022 due Goal Medication Reconciliation. Due o n due Goal RESEARCH ASSOCIATE PROFESSOR Scanned. Due on due Goal Zoster vaccine (). Due on Jan due Goal ALT (SGPT). Due on d ue Goal PHQ-9. Due on due Goal Creatinine. Due on d ue Goal Hepatitis C screening. Due on due Goal OARS. Due on due Goal FIT-DNA. Due on due Goal UDT. Due on due Goal CT-Colonography. Due on 022 due Goal Update Social History. Due on No due Goal Zoster vaccine (). Due on Dec due Goal Hepatitis C screening. Due on No due Goal Review Allergy List. Due on due Goal Tobacco Use. Due on due Goal Medication Reconciliation. Due o n due Goal Height. Due on due Goal RESEARCH ASSOCIATE PROFESSOR Scanned. Due on due Goal PHQ-9. Due on due Goal FIT. Due on due Goal ALT (SGPT). Due on d ue Goal ROLLING MACHINE TENDER Paperwork. Due on due Goal Weight. Due on due Goal Creatinine. Due on d ue Goal Lipid panel. Due on due Goal OARS. Due on due Goal AST (SGOT). Due on d ue Goal Order Annual PT. Due on due Goal Unhealthy drug use screening. Du e on due Goal AST (SGOT). Due on d ue Goal Height. Due [...] Medication Reconciliation. Due o n due Goal RESEARCH ASSOCIATE PROFESSOR Scanned. Due on due Goal Update Social History. Due on Oc due Goal Zoster vaccine (1st). Due on Nov due Goal ALT (SGPT). Due on d ue Goal CT-Colonography. Due on due Goal Unhealthy drug use screening. Du e on due Goal FIT. Due on due Goal ROLLING MACHINE TENDER Paperwork. Due on due Goal PHQ-9. Due on due Goal Hepatitis C screening. Due on Oc due Goal OARS. Due on due Goal Tobacco Use. Due on due Goal Update Social History. Due on Se due Goal Zoster vaccine (1st). Due on Oct due Goal ROLLING MACHINE TENDER Paperwork. Due on due Goal ALT (SGPT). [...] AST (SGOT). Due on d ue Goal RESEARCH ASSOCIATE PROFESSOR Scanned. Due on due Goal Height. [...] Medication Reconciliation. Due o n due Goal ROLLING MACHINE TENDER Paperwork. Due on 2 due Goal RESEARCH ASSOCIATE PROFESSOR Scanned. Due on due Goal Weight. Due on due Goal PHQ-9. Due on due Goal Hepatitis C screening. Due on due Goal RESEARCH ASSOCIATE PROFESSOR Scanned. Due on due Goal Order Annual PT. Due on 022 due Goal ROLLING MACHINE TENDER Paperwork. Due on due Goal Medication Reconciliation. [...] use screening. Du e on due Goal Update Social History. Due on due Goal FIT-DNA. Due on due Goal Weight. Due on due Goal Tobacco Use. Due on due Goal Lipid panel. Due on due Goal Zoster vaccine (1st). Due on Sep due Goal CT-Colonography. Due on due Goal Weight. Due on due Goal ROLLING MACHINE TENDER Paperwork. Due on due Goal Height. Due [...] due Goal FIT-DNA. Due on due Goal RESEARCH ASSOCIATE PROFESSOR Scanned. Due on due Goal FIT. Due on due Goal Review Allergy List. Due on due Goal CT-Colonography. Due on due Goal Unhealthy drug use screening. Du e on due Goal Zoster vaccine (1st). Due on Sep due Goal Update Social History. Due on due Goal AST (SGOT). Due on d ue Goal ROLLING MACHINE TENDER Paperwork. Due on due Goal Order Annual PT. Due on due Goal ALT (SGPT). Due on d ue Goal UDT. Due on due Goal OARS. Due on due Goal Creatinine. Due on d ue Goal RESEARCH ASSOCIATE PROFESSOR Scanned. Due on due Goal Height. [...] use screening. Du e on due Goal Update Social History. Due on due Goal Zoster vaccine (1st). Due on Aug due Goal FIT. Due on due Goal OARS. Due on due Goal AST (SGOT). Due on d ue Goal ROLLING MACHINE TENDER Paperwork. Due on due Goal Height. Due on due Goal Order Annual PT. Due on due Goal Creatinine. Due on d ue Goal ALT (SGPT). Due on d ue Goal UDT. Due on due Goal RESEARCH ASSOCIATE PROFESSOR Scanned. Due on due Goal FIT-DNA. Due on due Goal Hepatitis C screening. Due on due Goal Tobacco Use. Due on due Goal Unhealthy drug use screening. Rusty simmons on due Goal Lipid panel. Due on due Goal Update Social History. Due on due Goal Review Allergy List. Due on due Goal Weight. Due on due Goal PHQ-9. Due on due Goal Medication Reconciliation. Due o n due Goal CT-Colonography. Due on due Goal Zoster vaccine (1st). Due on Jul due Goal FIT. Due on due Goal Medication Reconciliation. Due o n due Goal Height. Due on due Goal Unhealthy drug use screening. Du iris on due Goal Review Allergy List. Due on due Goal PHQ-9. Due on due Goal CT-Colonography. Due on due Goal FIT-DNA. Due on due Goal Weight. Due on due Goal Zoster vaccine (1st). Due on June due Goal Update Social History. Due on due Goal Lipid panel. Due on due Goal Creatinine. Due on d ue Goal UDT. Due on due Goal OARS. Due on due Goal RESEARCH ASSOCIATE PROFESSOR Scanned. Due on due Goal ALT (SGPT). Due on d ue Goal Tobacco Use. Due on due Goal Order Annual PT. Due on due Goal Hepatitis C screening. Due on due Goal AST (SGOT). Due on d ue Goal ROLLING MACHINE TENDER Paperwork. Due on due Goal Lipid panel. Due on due Goal Medication Reconciliation. Due o n due Goal PHQ-9. Due on due Goal CT-Colonography. Due on due Goal ROLLING MACHINE TENDER Paperwork. Due on due Goal Weight. Due on due Goal Order Annual PT. Due on due Goal Hepatitis C screening. Due on Ap due Goal AST (SGOT). Due on d ue Goal UDT. Due on due Goal Tobacco Use. Due on due Goal ALT (SGPT). Due on d ue Goal Update Social History. Due on Ap due Goal Unhealthy drug use screening. Du e on due Goal RESEARCH ASSOCIATE PROFESSOR Scanned. Due on due Goal Creatinine. Due on d ue Goal OARS. Due on due Goal FIT. Due on due Goal Review Allergy List. Due on due Goal Height. Due on due Goal FIT-DNA. Due on due Goal Zoster vaccine (1st). Due on May due Goal OARS. Due on due Goal ALT (SGPT). Due on d ue Goal Tobacco Use. Due on due Goal AST (SGOT). Due on d ue Goal Review Allergy List. Due on due Goal Update Social History. Due on Ma due Goal PHQ-9. Due on due Goal Weight. Due on due Goal Medication Reconciliation. Due o n due Goal ROLLING MACHINE TENDER Paperwork. Due on due Goal RESEARCH ASSOCIATE PROFESSOR Scanned. Due on due Goal Order Annual PT. Due on due Goal Creatinine. Due on d ue Goal UDT. Due on due Goal Height. Due on due Goal Review Allergy List. Due on due Goal Order Annual PT. Due on due Goal OARS. Due on due Goal ROLLING MACHINE TENDER Paperwork. Due on due Goal Update Social History. Due on due Goal Creatinine. Due on d ue Goal RESEARCH ASSOCIATE PROFESSOR Scanned. Due on due Goal AST (SGOT). Due on d ue Goal ALT (SGPT). Due on d ue Goal UDT. Due on due Goal Weight. Due on due Goal PHQ-9. Due on due Goal Height. Due on due Goal Medication Reconciliation. Due o n due Goal Tobacco Use. Due on due Goal RESEARCH ASSOCIATE PROFESSOR Scanned. Due on due Goal Tobacco Use. Due on due Goal Order Annual PT. Due on due Goal ROLLING MACHINE TENDER Paperwork. Due on due Goal PHQ-9. Due [...] Review Allergy List. Due on due Goal ROLLING MACHINE TENDER Paperwork. Due on due Goal ALT (SGPT). Due on d ue Goal RESEARCH ASSOCIATE PROFESSOR Scanned. Due on due Goal UDT. Due on due Goal Creatinine. Due on d ue Goal AST (SGOT). Due on d ue Goal Update Social History. Due on due Goal OARS. Due on due Goal Order Annual PT. Due on 021 due Goal Weight. Due on due Goal [...] due Goal Height. Due on due Goal RESEARCH ASSOCIATE PROFESSOR Scanned. Due on due Goal Weight. Due on due Goal Review Allergy List. Due on due Goal ROLLING MACHINE TENDER Paperwork. Due on due Goal Update Social History. Due on due Goal RESEARCH ASSOCIATE PROFESSOR Scanned. Due on due Goal Height. Due on due Goal Creatinine. Due on d ue Goal ROLLING MACHINE TENDER Paperwork. Due on due Goal ALT (SGPT). Due on d ue Goal AST (SGOT). Due on d ue Goal Weight. Due on due Goal OARS. Due on due Goal Update [...] due Goal Weight. Due on due Goal RESEARCH ASSOCIATE PROFESSOR Scanned. Due on due Goal UDT. Due on due Goal ALT (SGPT). Due on d ue Goal ROLLING MACHINE TENDER Paperwork. Due on due Goal PHQ-9. Due on due Goal Update Social History. Due on due Goal Weight. Due on due Goal OARS. Due on due Goal Review Allergy List. Due on due Goal UDT. Due on due Goal RESEARCH ASSOCIATE PROFESSOR Scanned. Due on due Goal ALT (SGPT). Due on d ue Goal Medication Reconciliation. Due o n due Goal Order Annual PT. Due on due Goal Creatinine. Due on d ue Goal Height. Due on due Goal ROLLING MACHINE TENDER Paperwork. Due on due Goal AST (SGOT). Due on d ue Goal Tobacco Use. Due on due Goal PHQ-9. Due on due Goal Height. Due on due Goal Creatinine. Due on d ue Goal Order Annual PT. Due on due Goal OARS. Due on due Goal ROLLING MACHINE TENDER Paperwork. Due on due Goal Weight. Due on due Goal Review Allergy List. Due on due Goal Update Social History. Due on due Goal AST (SGOT). Due on d ue Goal UDT. Due on due Goal ALT (SGPT). Due on d ue Goal RESEARCH ASSOCIATE PROFESSOR Scanned. Due on due Goal PHQ-9. Due on due Goal Tobacco Use. Due on due Goal Medication Reconciliation. Due o n due Appointment Krys Lea DO NOT DOUBLE BOOK BOOKED Appointment Krys Lea BOOKED Future Order: Lab Order COMPLIANCE DRUG ANALYSIS , URINE, WITH MED Ordered REPORT ([id number]), Ordered on: Future Order: Lab Order Drug Test Def [address]+ [address] ([id number]), Ordered Ordered on: History Of Present Illness Encounter Date Complaint History Of Present I llness low back pain Severity level is 3. Duration: chronic. The problem is stable. I t occurs intermittently. The client describes the pain as an ache, burning and sharp. S ymptoms are aggravated by bending, standing, t wisting, walking and prolonged positionin g. Symptoms are relieved by ice, lying down, pain meds/drugs, rest, sitting and changing positions. Comments: sharon calzada ts for a follow up and medication refill re garding lower back pain. Prescribed medicatio n offers 90% pain relief.Following wit h wound care clinic regarding sore on he r foot and boil on her left thigh. States t hese are not improving much. R ankle/foot, lower back, neck, and hip pain are currently s table. Flares depending on travel/activity l el. Following with ortho regarding left shoulder pain/injections. Par ticipates in HEP as able. Accompanied by her [...] res t and changing positions. Comments: Yola brumfield for [...] HEP as able. Requesting cervical BOBO through [facility].Accompanied by her today. No fu rther questions or concerns. Comments: Yola prese nts for a follow [...] Participates in HEP as able. Inquires about [place] increase.Accom panied by her today. No further [...] in HEP as able. Accompanied by her MD2U usband today. No further questions or concern [...] in HEP as able. Accompanied by her MD2U usband today. No further questions or concern [...] Also recently completed a lumbar E SI. assisted results pending, but notes s he has [...] g. Symptoms are relieved by ice, pain meds/ ugs, physical therapy, stretching, rest, si tting [...] ication offers 70% pain relief. Denies SE.Re sumi underwent R hip bursa injection thro [facility] which has offered benefit. R w [...] is fluctuati ng. It occurs persistently. The glynn moya describes the pain as an ache and [...] therapy, rest and sitting. low back pain Severity level is 3. [...] PT at this time. Presents with #15 [place] and # 14 Methadone - on track. [...] with her orthopedist. Patient presents with #135.5 [place], and #14 Metha done - both are [...] Presents with #20 Me thadone and #108.5 [place] - on track. Reports current medication regimen [...] is here for a f/u. Has #74 [place] and #9 Methadone remaini ng - on [...] PT-N/AESI-N/ARF-not triedSCS-not tried Meds: Opioids-Currently ta kes [place] and Methadone Neuropathics-Current ly takes gabapentin Muscle [...] her e for a f/u. Has #52 [place] and #7 Methadone remaini ng - on [...] for follow up and medications refill. Presents [facility] h #75 [place] and #19 methadone-- a [...] or follow up and medications refill. Presents [facility] h #7 methadone, #34 [place] - on track. Reports current medication regimen [...] . They are planning a trip up [place] in [facility]. No other concerns today. low [...] had a quite hor rible trip to [place]. No other concerns today . low back [...] up and medication refill. She has #100 [place] and #5 methadone remaining-surplus. T he patient states the current medication r egimen continues to be effective at reducin g pain without SE. She got an injetion from [facility] and it did not provide any relief f or her. She went to see her spine surgeon wh o discussed surgery with her. She tried gabap entin and reports she was very drowsy on it. S he may be interested in trying Lyrica. No ot her concerns today. low back pain (comments) Patient is here for f/u. Patient has #104 [place] and #10 methad one remaining - on track. Patient reports 50% pain relief with meds. Patient is stable on these medications. 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 Continues her daily PT exercises. She does injections at [facility]. I s going to [place] in November. No other concerns to day. [...] She has # 8 methadone and #94.5 [place] remaining - on track/surplus. The patient reports [...] in [place]. She will be going to [place] in November. The charlene ent states gabapentin [...] low back pain. She has # 71 [place] and #8 methadone remaining - on track [...] o other concerns today. low back pain Severity [...] low back pain. She has # 88.5 [place] and #19 methadone remaining - on track/surplus. [...] No other concerns today. low back pain low back pain (comments) Krys is here today for follow up evaluation and medication refil ls relating to her low back pain. She has # 90 [place] and #19 methadone remaining - on track/surplus. [...] low back pain. She has # 63 [place] and #12 methadone remaining - on track/surplus. [...] She has # 18 methadone and #45 [place] remaining - on track. She continues PT for her shoulder and has noticed some benefit. She had a l umbar BOBO at [facility] which has provided minimal relief to this point. The patient states t he current medication regimen continues to be effective for reducing pain. She C O trouble sleeping even when she uses Trazod one. She continues PT regularly. She will be going on a trip to [place] and [facility] this Summer. No other concerns today . [...] medication refill. She presents with #8 7.5 [place] and #20 methadone. She notif ied us [...] low back pain. She has # 63 [place] and #7 methadone remaining - on track [...] low back pain. She has # 47 [place] and #8 methadone remaining - on track [...] low back pain. She has # 31 [place], #22 methadone and #19 Trazodone re maining - on track. She will be going on vac ation this week to [place]. She has not noticed any relief from her BOBO yet. She just transi tioned to an E-cig. She continues home exerc ise. She has experiended good relief from her shoulder injection at [facility] so she has not f ollowed [...] She an d her are going to [place] in [facility] er and she will need [...] flare since she had her epidural at [facility] last Thursday. States this has not [...] has a surpl us Continue current medication Follow exercise program Reviewed medications Continue current medication Continue current medication Reviewed medications Follow exercise program Reviewed medications Medications counted, patient is on track . Medications counted, patient is on track . Medications counted, patient is on track . Continue current medication Continue current medication Assessments Type Assessment Date assessment Pain in right hip impression R hip pain also stable. Benefit with rec ent bursa injection through ortho assessment Drug induced constipation assessment Rheumatoid arthritis impression Review of 2020 records from [facility] review her history of rheumatoid arthritis. assessment Pain in left shoulder impression Ongoing L shoulder pain; following up [facility] Dr. Weaver who performs her shoulder injections. [...] regimen and home PT exercises. Failed bertha jodiar BOBO's.Lumbar surgery/injections per Dr. Comer. assessment Radiculopathy, [...] has a history of cervical surgery. assessment assisted (current) use of opiate analge sic impression [...]
--- OUTSIDE RECORDS SUMMARY | 2022-02-05 15:13 | XMS_ITS | Clinical Summary ---
:1950 Author Organization [place] Address [facility] [place] [address] Care Team Providers Name Role Phone Idalmis [...] be differe nt from the original. 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
--- OUTSIDE RECORDS SUMMARY | 2022-02-05 15:13 | XMS_ITS | Encounter Summary ---
:1950 Author Organization [place] Address [facility] [place] [address] Care Team Providers Name Role Phone Idalmis Sloan Primary Care Provider Madhav Matute MD Unavailable Encounter Details Date Type Department Care Team Description 01/10/2021 Orders Only [facility] Neurosurgery Reported, Patient Clinic [address] [place] [address] Social History Tobacco Use Types [...] on filedocumented in this encounter Care Teams Division Leader Relationship Specialty Start Date End Date Idalmis Sloan PCP - General Family Practice 11/04/13 Madhav Matute MD Assigned Neuroscience 12/02/20 [address] [facility] CREEKELLIS BEGUM Provider [address] [place] [address] documented as of this encounter
--- OUTSIDE RECORDS SUMMARY | 2022-02-05 15:14 | XMS_ITS | Encounter Summary ---
:1950 Author Organization [place] Address [facility] [place] [address] Care Team Providers Name Role Phone Idalmis Sloan Primary Care Provider Reason for Visit [facility] Physical Therapy (Routine) - Closed Specialty Diagnoses / Procedures Referred By Contact Refer red To Contact Physical Therapy Diagnoses >4, Back / Mercy Pedro @ [facility] Pain / BCBS Mercy Vasquez, BARREL WASHER Daniel Shi, PT Procedures SPINE INITIAL [facility] [address] [place] [address] [place] [address] [place] [address] Referral ID Status Reason Start Date Expiration Date Visits Requ ested Visits Authorized [id number] Closed 07/22/2017 03/01/2018 20 18 Encounter Details Date Type Department Care Team Description 02/25/2018 Therapy Visit [facility] Jensen Hernandez, PT Hip pain, left Rehabilitation Services [address] MARYANA NELSON (Primary Dx) [id number] [place] [id number] [place] [address] [address] [place] [address] (Work) [phone] Social History Tobacco Use Types Packs/Day Years Used Date Smoking Tobacco: Never Smokeless Tobacco: Never Sex Assigned at Date Recorded Not on file documented as of this encounter Progress Notes Jensen Hernandez, PT - 02/25/2018 4:00 PM CST [facility] Initial Evaluation Subjective: History of left hip pain for years with increased symptoms 1 month ago secondary to OA. Pt referred by MD for physical therapy on 02-05-18 The history is provided by the patient. No language and literature division chair was used. Krys Mosher is a 67 [...] Right: Min loss+ Rotation: Left: Right: Side [place]: Left: Right: Strength: weak lower abdominals and [...] and time spent performing 1:1 timed codes. 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
--- OUTSIDE RECORDS SUMMARY | 2022-02-05 15:14 | XMS_ITS | Encounter Summary ---
:1950 Author Organization [place] Address [address] [place] [address] Care Team Providers Name Role Phone Idalmis [...] on filedocumented in this encounter Care Teams Rehabilitation Clerk Relationship Specialty Start Date End Date Idalmis Sloan PCP - General Family Practice 11/04/13 documented as of this encounter
--- OUTSIDE RECORDS SUMMARY | 2022-02-05 15:14 | XMS_ITS | Encounter Summary ---
:1950 Author Organization [place] Address [address] [place] [address]. [place] [address] Care Team Providers Name Role Phone Idalmis Sloan Primary Care Provider Reason for Visit Diagnostic Imaging XR (Routine) - Closed Specialty Diagnoses / Procedures Referred By Contact Refer red To Contact Diagnoses Acute bilateral low back pain with left-sided sciatica Ana Jacobs PA-C Procedures XR Lumbar Bending Only 2/3 Views [facility] [address] [facility] [address] [place] [address] Referral ID Status Reason Start Date Expiration Date Visits Requ ested Visits Authorized [id number] Closed 10/29/2020 10/29/2021 1 1 Encounter Details Date Type Department Care Team Description 10/29/2020 Ancillary Procedure [facility] Ana Jacobs Acu te bilateral low Sports and Kieran PASamiC back pain with Orthopedic Care [facility] left-side d sciatica [facility] [address] [facility] [address] [place] [address] [place] [address] Social History Tobacco Use Types Packs/Day Years [...] extension. JULIO CÉSAR HUITRON MD SYSTEM ID: ??[id number] Narrative 10/29/2020 4:29 PM CDT XR LUMBAR [...] extension. JULIO CÉSAR HUITRON MD SYSTEM ID: [id number] Ana Jacobs PA-C [facility] ORDER TRELL documented in this encounter Visit Diagnoses Diagnosis Acute bilateral low back pain with left- sided sciatica documented in this encounter Care Teams Irrigator Gravity Flow Relationship Specialty Start Date End Date Idalmis Sloan PCP - General Family Practice 11/04/13 documented as of this encounter
--- OUTSIDE RECORDS SUMMARY | 2022-02-05 15:14 | XMS_ITS | Encounter Summary ---
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 [address] [facility] [address] [place] [address] Social History Tobacco Use Types Packs/Day Years Used Date Smoking Tobacco: Never Smokeless Tobacco: Never Sex Assigned at Date Recorded Not on file documented as of this encounter Plan of Treatment Not on filedocumented as of this encounter Procedures Procedure Name Priority Date/Time Associated Diagnosis Comme nts Z THERAPEUTIC Routine 03/09/2019 3:43 PM [employer] MEMBER Lumbar pain ACTIVITIES ZZ THERAPEUTIC Routine 03/09/2019 3:43 PM [employer]HAD[employer]BER Lumbar pain EXERCISES documented in this encounter Visit Diagnoses Diagnosis Lumbar pain - Primary Lumbago documented in this encounter Care Teams Yarn Spinner Relationship Specialty Start Date End Date Idalmis Sloan PCP - General Family Practice 11/04/13 documented as of this encounter
--- OUTSIDE RECORDS SUMMARY | 2022-02-05 15:14 | XMS_ITS | Encounter Summary ---
:1950 Author Organization [place] Address [address] [place] [address] Care Team Providers Name Role Phone Idalmis Sloan Primary Care Provider Reason for Visit [facility] Physical Therapy (Routine) - Closed Specialty Diagnoses / Procedures Referred By Contact Refer red To Contact Story Editor Diagnoses >4 Lefft side hip pain, LBP / Idalmis Sloan MD@ [email or web address] / [email or web address] /referral exists 20V thru 03.01.18(MSG) Idalmis Sloan Linda, PTA / Physical Therapy Procedures SPINE FOLLOW UP [facility] [address] [place] [address] Referral ID Status Reason Start Date Expiration Date Visits Requ ested Visits Authorized [id number] Closed 03/16/2018 03/01/2019 20 18 Encounter Details Date Type Department Care Team Description 03/16/2018 Therapy Visit [facility] [place], Hip josefina n, left Rehabilitation Services [facility] [address] [facility] [address] [place] [address] Social History Tobacco Use Types Packs/Day Years Used Date Smoking Tobacco: Never Smokeless Tobacco: Never Sex Assigned at Date Recorded Not on file documented as of this encounter Plan of Treatment Not on filedocumented as of this encounter Procedures Procedure Name Priority Date/Time Associated Diagnosis Comme [facility] THERAPEUTIC Routine 03/17/2018 7:48 AM DOOR TO DOOR LEAD GENERATION Hip pain, left EXERCISES documented in this encounter Visit Diagnoses Diagnosis Hip pain, left Pain in joint, pelvic region and thigh documented in this encounter Care Teams Bias Cutter Relationship Specialty Start Date End Date Idalmis Sloan PCP - General Family Practice 11/04/13 documented as of this encounter
--- OUTSIDE RECORDS SUMMARY | 2022-02-05 15:14 | XMS_ITS | Encounter Summary ---
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) [place] [address] [facility] [address] [place] [address] Social History Tobacco Use Types Packs/Day Years Used Date Smoking Tobacco: Never Smokeless Tobacco: Never Sex Assigned at Date Recorded Not on file documented as of this encounter Plan of Treatment Not on filedocumented as of this encounter Procedures Procedure Name Priority Date/Time Associated Diagnosis Comme nts Z THERAPEUTIC Routine 03/16/2019 4:32 PM RESOLUTE PROFESSIONAL Lumbar pain ACTIVITIES Z THERAPEUTIC Routine 03/16/2019 4:32 PM RESOLUTE PROFESSIONAL Lumbar pain EXERCISES documented in this encounter Visit Diagnoses Diagnosis Lumbar pain - Primary Lumbago documented in this encounter Care Teams Auditing Clerk Relationship Specialty Start Date End Date Idalmis Sloan PCP - General Family Practice 11/04/13 documented as of this encounter
--- OUTSIDE RECORDS SUMMARY | 2022-02-05 15:14 | XMS_ITS | Encounter Summary ---
:1950 Author Organization [place] Address [facility] [place] [address] Care Team Providers Name Role Phone Idalmis Sloan Primary Care Provider Reason for Visit Reason Comments Wound Infection Back Pain Nausea Diarrhea Auth/Cert Specialty Diagnoses / Procedures Referred By Contact Refer red To Contact Med Surg Diagnoses Cellulitis of right foot H/O Clostridium difficile infection Diarrhea, unspecified type Cellulitis of right foot Observation Dept [address] [place], [place] [address] Phone: Referral ID Status Reason Start Date Expiration Date Visits Requ ested Visits Authorized [id number] 1 1 Encounter Details Date Type Department Care Team Description 11/04/2018 - [facility] Codie Morales MD [facility] [address] [place] [id number] Cellulitis of right foot; 11/06/2018 [facility] Observation Chuck Cook MD [address] [place] [address] Diarrhea, unspecified type; Dept H/O Clostridium difficile in fection [address] [place] [address] Social History Tobacco Use Types [...] Branch PA-C - 11/06/2018 8:24 AM CDT [facility] Hospitalist Discharge Summary Date of Admission: 11/04/2018 [...] difficile than other alternatives. Pain controlled with INTRAVENOUS THERAPY NURSE medications. No signs of sepsis. Diarrhea resolved while hospitalized, if recurrent suggest further outpatient work-up. Consultations This Hospital Stay None Code Status Full Code Time Spent on this Encounter I, Dayna Branch PA-C, personally saw the patient today and spent greater than 30 minutes discharging this patient. Dayna Branch PA-C [facility] Physical Exam Vital Signs: Temp: 97.5 ??F [...] Stephens PA-C - 11/05/2018 12:30 PM CDT [facility] Observation Unit Hospitalist Progress Note Name: Krys [...] regimen of Methadone 5 mg BID and Havre 5-325 mg PRN TID #Diarrhea: reported 12 episodes of diarrhea the day prior to admission with only 2 episodes since arriving to the hospital. C diff negative. If increased diarrhea consider checking enteric panel. #Stable medical conditions: hypertension, hypercholesterolemia, GERD, PVD, hepatitis C, necessary INTRAVENOUS THERAPY NURSE medications have been resumed. DVT Prophylaxis: Ambulate [...] contact Infection Prevention with any questions/concerns at *[phone]. Erica Jolly, VIKASH Grisel Samson RN - 11/04/2018 10:04 PM CDT ROOM # 205 Living Situation (if not independent, order SW consult): Home with Facility name: front desk person: Cheikh [phone] Activity level at baseline: Independent Activity level [...] Cook MD - 11/04/2018 9:58 PM CDT [facility] History and Physical Hospitalist Service Chuck Cook [...] Full Code Primary Care Physician: Idalmis Sloan [phone] Chief Complaint: Swelling and redness of right [...] Samson RN - 11/04/2018 8:36 PM CDT [facility] ED Nurse Handoff Report Krys Mosher [...] 1. Lift room needed: No. Bariatric: No Manager Sound Needed: No Isolation: yes. Infection: C-Diff Pending. [...] provider's statements to me. Diana López 11/04/2018 [facility] EMERGENCY DEPARTMENT Mervin Morales MD 11/04/18 [id number] documented in this encounter Miscellaneous Notes Plan [...] Yes, SBA via gait belt and walker. Deicer Tester Nurse Safe discharge environment identified: Yes Barriers [...] Return to near baseline physical activity: Yes Deicer Tester Nurse Safe discharge environment identified: Yes Barriers [...] Return to near baseline physical activity: Yes Deicer Tester Nurse Safe discharge environment identified: Yes Barriers [...] Pain status: Improved-controlled with oral pain medications. Havre dose ordered 1x 4. Return to near baseline physical activity: Yes Up with SBA 1 walker Deicer Tester Nurse Safe discharge environment identified: Yes Barriers [...] L foot,pain at 8 sharp and shooting. Havre last at 1645, hx of chronic pain. thanks Plan of Care - Elizabeth Chong RN - 11/05/2018 3:31 PM CDT PRIMARY DIAGNOSIS: GENERIC NURSING OUTPATIENT/OBSERVATION GOALS TO BE MET BEFORE DISCHARGE: ADLs back to baseline: Yes Activity and level of assistance: Up with standby assistance. Pain status: Improved-controlled with oral pain medications. Return to near baseline physical activity: No Deicer Tester Nurse Safe discharge environment identified: Yes Barriers [...] Return to near baseline physical activity: Yes Deicer Tester Nurse Safe discharge environment identified: Yes Barriers [...] Return to near baseline physical activity: No Deicer Tester Nurse Safe discharge environment identified: Yes Barriers [...] to continue with antibiotics and manage symptoms. Deicer Tester Nurse Safe discharge environment identified: Yes Barriers [...] to continue with antibiotics and manage symptoms. Deicer Tester Nurse Safe discharge environment identified: Yes Barriers to discharge: No Entered by: Grisel Samson 11/05/2018 Please review provider order for any additional goals. Nurse to notify provider when observation goals have been met and patient is ready for discharge. Pharmacy-Admission Medication History - Lazara Fontenot RPH - 11/04/2018 11:35 PM CDT 11/05 Addendum: per clarification with patient, added Havre 5-325 mg (1 tab TID prn) to [facility] INTRAVENOUS THERAPY NURSE med list. Left sticky note to provider to review additional med. Lazara Fontenot PharmCecyD. Admission medication history interview status for this patient is complete. See [facility] admission navigator for allergy information, prior to admission medications and immunization status. Medication history interview source(s):Patient Medication history resources (including written lists, pill bottles, clinic record):[facility] records from [facility] Changes made to [facility] medication list: Added: all Medication reconciliation/reorder [...] Signature Potassium 3.8 3.4 - 5.3 11/05/2018 [facility] mmol/L 5:50 PM CDT HOSPITAL Specimen Anatomical Collection Method Collection Time Receive d Time (Source) Location / / Volume Laterality Blood specimen 11/05/2018 5:27 PM 019 5:28 (specimen) CDT PM CDT Kelly Stephens PA-C LAB - BLOOD ORDERABLES Performing Organization Address City/State/ZIP Code Phon e Number [facility] [address] [place], [place] [address] [facility] [address] [phone] (ABNORMAL) CBC with platelets (11/05/2018 6:42 AM CDT) Analysis Performed At Patho logist Time Signature WBC 8.8 4.0 - 11.0 11/05/2018 [facility] 10e9/L 7:04 AM [facility] RBC Count 3.60 (L) 3.8 - 5.2 11/05/2018 [facility] 10e12/L 7:04 AM [facility] Hemoglobin 12.3 11.7 - 11/05/2018 [facility] 15.7 g/dL 7:04 AM [facility] Hematocrit 36.4 35.0 - 11/05/2018 [facility] 47.0 % 7:04 AM [facility] MCV 101 (H) 78 - 100 11/05/2018 [facility] fl 7:04 AM [facility] MCH 34.2 (H) 26.5 - 11/05/2018 [facility] 33.0 pg 7:04 AM [facility] MCHC 33.8 31.5 - 11/05/2018 [facility] 36.5 g/dL 7:04 AM [facility] RDW 12.9 10.0 - 11/05/2018 [facility] 15.0 % 7:04 AM [facility] Platelet Count 191 150 - 450 11/05/2018 [facility] 10e9/L 7:04 AM [facility] Specimen Anatomical Collection Method Collection Time Receive d Time (Source) Location / / Volume Laterality Blood specimen 11/05/2018 6:42 AM 019 6:43 (specimen) CDT AM CDT Chuck Cook MD LAB - BLOOD ORDERABLES Performing Organization Address City/State/ZIP Code Phon e Number [facility] [address] [place] [address] [facility] [address] [phone] (ABNORMAL) Basic metabolic panel (11/05/2018 6:42 AM CDT) P athologist Signature Sodium 137 133 - 144 11/05/2018 [facility] mmol/L 7:16 AM [facility] Potassium 3.3 (L) 3.4 - 5.3 11/05/2018 [facility] mmol/L 7:16 AM [facility] Chloride 101 94 - 109 11/05/2018 [place] mmol/L 7:16 AM [facility] Carbon Dioxide 30 20 - 32 11/05/2018 [place] mmol/L 7:22 AM [facility] Anion Gap 6 3 - 14 11/05/2018 [place] mmol/L 7:22 AM [facility] Glucose 84 70 - 99 11/05/2018 [place] mg/dL 7:22 AM [facility] Urea Nitrogen 7 7 - 30 11/05/2018 [place] mg/dL 7:22 AM [facility] Creatinine 0.79 0.52 - 11/05/2018 [place] 1.04 mg/dL 7:22 AM [facility] GFR Estimate 77 >60 11/05/2018 [place] mL/min/{1. 7:22 AM [facility] 73_m2} HOSPITAL Comment: Non GFR Calc Starting 02/16/2018, serum creatinine ba sed estimated GFR (eGFR) will be calculated using the Chronic Kidney Dise [facility] Epidemiology Collaboration (CKD-EPI) equation. GFR Estimate If 89 >60 mL/min/{1.73_m2} 11/05/2018 7: 22 AM [facility] Comment: GFR Calc Starting 02/16/2018, serum creatinine ba sed estimated GFR (eGFR) will be calculated using the Chronic Kidney Dise [facility] Epidemiology Collaboration (CKD-EPI) equation. Calcium 8.2 (L) 8.5 - 10.1 mg/dL 11/05/2018 7:22 AM [facility] Specimen Anatomical Collection Method Collection Time Receive d Time (Source) Location / / Volume Laterality Blood specimen 11/05/2018 6:42 AM 019 6:43 (specimen) CDT AM CDT Chuck Cook MD LAB - BLOOD ORDERABLES Performing Organization Address City/State/ZIP Code Phon e Number [place] [address] [place] [address] [facility] [address] [place], [place] [address], [facility] [phone] [place] [address] [place] [address], [facility] Clostridium difficile toxin B PCR (11/04/2018 7:49 PM CDT) [facility] Method Time Signature Specimen Feces 11/04/2018 [facility] 7:49 PM CDT [facility] C Diff Toxin B Negative NEG^Negat 11/05/2018 [facility] sung 12:21 AM CDT [facility] Comment: Negative: Clostridium difficile target D NA sequences NOT detected, presumed negative for Clostridium difficile toxin B or the number of bacteria present may be below the limit of detection for the test. FDA approved assay performed using [employer] GeneXpert real-time PCR. A negative result does [...] Address City/State/ZIP Code Phon e Number [address] [address] [facility] [address] [place] [address], [facility] [phone] Blood culture (11/04/2018 4:35 PM CDT) [place] [...] MICRO GENERAL ORDERABL ES Performing Organization Address City/[facility]/ZIP Code Phon e Number INFECTIOUS DISEASES [address] [place] [address] DIAGNOSTIC LABORATORY, [facility] INFECTIOUS DISEASES [address] [place] [address], [place] DI[facility] LAB[facility] (ABNORMAL) Basic metabolic panel (11/04/2018 4:35 PM CDT) P athologist Signature Sodium 136 133 - 144 11/04/2018 [place] mmol/L 7:48 PM [facility] Potassium 3.0 (L) 3.4 - 5.3 11/04/2018 [place] mmol/L 7:48 PM [facility] Chloride 97 94 - 109 11/04/2018 [place] mmol/L 7:48 PM [facility] Carbon Dioxide 31 20 - 32 11/04/2018 [facility] mmol/L 7:54 PM [facility] Anion Gap 8 3 - 14 11/04/2018 [place] mmol/L 7:54 PM [facility] Glucose 74 70 - 99 11/04/2018 [place] mg/dL 7:54 PM [facility] Urea Nitrogen 8 7 - 30 11/04/2018 [place] mg/dL 7:54 PM [facility] Creatinine 0.81 0.52 - 11/04/2018 [facility] 1.04 mg/dL 7:54 PM [facility] GFR Estimate 75 >60 11/04/2018 [place] mL/min/{1. 7:54 PM [facility] 73_m2} [facility] Comment: Non GFR Calc Starting 02/16/2018, serum creatinine ba sed estimated GFR (eGFR) will be calculated using the Chronic Kidney Dise [facility] Epidemiology Collaboration (CKD-EPI) equation. GFR Estimate If 87 >60 mL/min/{1.73_m2} 11/04/2018 7: 54 PM [facility] Comment: GFR Calc Starting 02/16/2018, serum creatinine ba sed estimated GFR (eGFR) will be calculated using the Chronic Kidney Dise [facility] Epidemiology Collaboration (CKD-EPI) equation. Calcium 9.0 8.5 - 10.1 mg/dL 11/04/2018 7:54 PM [facility] Specimen Anatomical Collection Method Collection Time Receive d Time (Source) Location / / Volume Laterality Blood specimen 11/04/2018 4:35 PM 019 7:31 (specimen) CDT PM CDT Mervin Morales MD LAB - BLOOD ORDERABLES Performing Organization Address City/State/ZIP Code Phon e Number [facility] [address] [place], [place] [address] [facility] [address] [place], [place] [address] [place] [address] (ABNORMAL) CBC with platelets differential (11/04/2018 4:35 PM CDT) [employer] gist Method Time Signature WBC 9.9 4.0 - 11/04/2018 [facility] 11.0 7:35 PM [facility] 10e9/L [facility] RBC Count 4.22 3.8 - 5.2 11/04/2018 [facility] 10e12/L 7:35 PM [facility] Hemoglobin 14.3 11.7 - 11/04/2018 [facility] 15.7 g/dL 7:35 PM [facility] Hematocrit 42.9 35.0 - 11/04/2018 [facility] 47.0 % 7:35 PM [facility] MCV 102 (H) 78 - 100 11/04/2018 [facility] fl 7:35 PM [facility] MCH 33.9 (H) 26.5 - 11/04/2018 [facility] 33.0 pg 7:35 [facility] MCHC 33.3 31.5 - 11/04/2018 [facility] 36.5 g/dL 7:35 PM [facility] RDW 13.3 10.0 - 11/04/2018 [facility] 15.0 % 7:35 PM [facility] Platelet Count 233 150 - 450 11/04/2018 [facility] 10e9/L 7:35 PM [facility] Diff Method Automated 11/04/2018 [facility] Method 7:35 PM [facility] % Neutrophils 69.4 % 11/04/2018 [facility] 7:35 PM [facility] % Lymphocytes 23.2 % 11/04/2018 [facility] 7:35 PM [facility] % Monocytes 5.9 % 11/04/2018 [facility] 7:35 PM [facility] % Eosinophils 0.8 % 11/04/2018 [facility] 7:35 PM [facility] % Basophils 0.4 % 11/04/2018 [facility] 7:35 PM [facility] % Immature 0.3 % 11/04/2018 [facility] Granulocytes 7:35 PM [facility] Nucleated RBCs 0 0 /100 11/04/2018 [place] 7:35 PM [facility] Absolute 6.8 1.6 - 8.3 11/04/2018 [place] Neutrophil 10e9/L 7:35 PM [facility] Absolute 2.3 0.8 - 5.3 11/04/2018 [place] Lymphocytes 10e9/L 7:35 PM [facility] Absolute 0.6 0.0 - 1.3 11/04/2018 [place] Monocytes 10e9/L 7:35 PM [facility] Absolute 0.1 0.0 - 0.7 11/04/2018 [place] Eosinophils 10e9/L 7:35 PM [facility] Absolute 0.0 0.0 - 0.2 11/04/2018 [place] Basophils 10e9/L 7:35 PM [facility] Abs Immature 0.0 0 - 0.4 11/04/2018 [place] Granulocytes 10e9/L 7:35 PM [facility] Absolute 0.0 11/04/2018 [place] Nucleated RBC 7:35 PM [facility] Specimen Anatomical Collection Method Collection Time Receive d Time (Source) Location / / Volume Laterality Blood specimen 11/04/2018 4:35 PM 019 7:31 (specimen) CDT [facility] Mervin Morales MD LAB - BLOOD ORDERABLES Performing Organization Address City/State/ZIP Code Phon e Number [place] [address] [phone] documented in this encounter Visit Diagnoses Diagnosis [...] mg, Intravenous, ONCE, Administer over 2-5 Minutes, [facility] 11/04/18 at 1959, For 1 dose, [...] beverage. traZODone (DESYREL) tablet 50 mg 0026 (z Missed (do not use) - Provider: Grisel Samson, SANTOS - Reason: Patient sleeping)2248 (Given - Provider: Ashley Lyle, SANTSO) 50 mg, Oral, AT BEDTIME, First dose [...] (CANCEL ED) 2000 (Given - Provider: Dino MerazSANTOS) 0.5 mg, Intravenous, EVERY 15 MIN PRN, [...] Chong RN)1527 (See Alternative - Provider: Elizabeth Chong RN)2127 [...] required. oxyCODONE (ROXICODONE) tablet 5 mg (CANCELED) 2241 (Gi nickolas - Provider: Grisel Samson RN) 0411 (Given - Provider: Grisel Samson, Darnell N)0839 (Given - Provider: Elizabeth Chong RN)1246 (Given [...] 20-40 mEq 1031 (Given - Provider: Elizabeth Chong RN)1246 (Given - Provider: Elizabeth Chong RN) 20-40 [...] usea, vomiting, Administer over 1-2 Minutes, Starting [facility] 11/04/18 at 2149, This is Step [...] 12 HOURS PRN, jim sea, vomiting, Starting [facility] 11/04/18 at 2149, This is Step [...] Oral, EVERY 6 HOURS PRN, vomiting, Starting [facility] 11/04/18 at 2149
This is Step 2 of nausea and vomiting management. Give if nausea not resolved 15 minutes after giving ondansetron (ZOFRAN). If nausea not resolved in 15 minutes, go to Step 3 metoclopramide (REGLAN), if ordered.
Or prochlorperazine (COMPAZINE) Suppository 12.5 mgJump to med 12.5 mg, Rectal, EVERY 12 HOURS PRN, jim sea, vomiting, Starting [facility] 11/04/18 at 2149
This is Step 2 of nausea and vomiting management. Give if nausea not resolved 15 minutes after giving ondanset rei (ZOFRAN). If nausea not resolved in 15 minutes, go to Step 3 metoclopramide (REGLAN), if ordered.
documented in this encounter Care Teams Warehouse Shipping Associate Relationship Specialty Start Date End Date Idalmis Sloan PCP - General Family Practice 11/04/13 documented as of this encounter
--- OUTSIDE RECORDS SUMMARY | 2022-02-05 15:14 | XMS_ITS | Encounter Summary ---
:1950 Author Organization [place] Address [address] [place] [address] Care Team Providers Name Role Phone Idalmis Sloan Primary Care Provider Encounter Details Date Type Department Care Team Description 03/30/2019 Therapy Visit [facility] [place] [place], Lumbar pain (Primary Rehabilitation Services CHILD WELFARE SOCIAL WORKER Dx) [facility] [address] [facility] [address] [place] [address] Social History Tobacco Use Types Packs/Day Years Used Date Smoking Tobacco: Never Smokeless Tobacco: Never Sex Assigned at Date Recorded Not on file documented as of this encounter Plan of Treatment Not on filedocumented as of this encounter Procedures Procedure Name Priority Date/Time Associated Diagnosis Comme nts ZZC THERAPEUTIC Routine 03/30/2019 3:56 PM CBX OPERATOR Lumbar pain ACTIVITIES ZZ THERAPEUTIC Routine 03/30/2019 3:56 PM CBX OPERATOR Lumbar pain EXERCISES documented in this encounter Visit Diagnoses Diagnosis Lumbar pain - Primary Lumbago documented in this encounter Care Teams Window Cutter Relationship Specialty Start Date End Date Idalmis Sloan PCP - General Family Practice 11/04/13 documented as of this encounter
--- OUTSIDE RECORDS SUMMARY | 2022-02-05 15:14 | XMS_ITS | Encounter Summary ---
:1950 Author Organization [place] Address [address] [place] [address] Care Team Providers Name Role Phone Idalmis [...] on filedocumented in this encounter Care Teams Law Professor Relationship Specialty Start Date End Date Idalmis Sloan PCP - General Family Practice 11/04/13 documented as of this encounter
--- OUTSIDE RECORDS SUMMARY | 2022-02-05 15:14 | XMS_ITS | Encounter Summary ---
:1950 Author Organization [place] Address [address] [place] [address] Care Team Providers Name Role Phone Idalmis [...] on filedocumented in this encounter Care Teams Rod Puller And Coiler Relationship Specialty Start Date End Date Idalmis Sloan PCP - General Family Practice 11/04/13 documented as of this encounter
--- OUTSIDE RECORDS SUMMARY | 2022-02-05 15:14 | XMS_ITS | Encounter Summary ---
:1950 Author Organization [place] Address [address] [place] [address] Care Team Providers Name Role Phone Idalmis Sloan Primary Care Provider Encounter Details Date Type Department Care Team Description [facility] ([facility] [address] Dx) [address] [place] [address] [address] [address] [place] [address] (Work) [phone] Social History Tobacco Use Types Packs/Day Years Used Date Smoking Tobacco: Never Smokeless Tobacco: Never Sex Assigned at Date Recorded Not on file documented as of this encounter Plan of Treatment Not on filedocumented as of this encounter Procedures Procedure Name Priority Date/Time Associated Diagnosis Comme nts [facility] THERAPEUTIC Routine 02/21/2019 6:20 PM TIRE DUSTER Lumbar pain ACTIVITIES [facility] THERAPEUTIC Routine 02/21/2019 6:20 PM TIRE DUSTER Lumbar pain EXERCISES documented in this encounter Visit Diagnoses Diagnosis Lumbar pain - Primary Lumbago documented in this encounter Care Teams Crm Marketing Specialist Relationship Specialty Start Date End Date Idalmis Sloan PCP - General Family Practice 11/04/13 documented as of this encounter
--- OUTSIDE RECORDS SUMMARY | 2022-02-05 15:14 | XMS_ITS | Encounter Summary ---
:1950 Author Organization [place] Address [address] [place] [address] Care Team Providers Name Role Phone Idalmis [...] on filedocumented in this encounter Care Teams Auricular Detoxification Specialist Relationship Specialty Start Date End Date Idalmis Sloan PCP - General Family Practice 11/04/13 documented as of this encounter
--- OUTSIDE RECORDS SUMMARY | 2022-02-05 15:14 | XMS_ITS | Encounter Summary ---
:1950 Author Organization [place] Address [address] [place] [address] Care Team Providers Name Role Phone Idalmis [...] filedocumented in this encounter Care Teams Global Recruiter Relationship Specialty Start Date End Date Idalmis Sloan PCP - General Family Practice 11/04/13 documented as of this encounter
--- OUTSIDE RECORDS SUMMARY | 2022-02-05 15:14 | XMS_ITS | Encounter Summary ---
:1950 Author Organization [place] Address [address] [place] [address]. [place] [address] Care Team Providers Name Role Phone Idalmis Sloan Primary Care Provider Reason for Visit KIMBER Physical Therapy (Routine) - Closed Specialty Diagnoses / Procedures Referred By Contact Refer red To Contact Physical Therapy Diagnoses >4, Back / Mer[facility] Pedro @ [facility] / BCBS Mercy Vasquez, GUNSTOCK REPAIRER Daniel Shi, PT Procedures SPINE INITIAL [facility] PAIN [facility] [address] [place] [address] [place] [address] [place] [address] Referral ID Status Reason Start Date Expiration Date Visits Requ ested Visits Authorized [id number] Closed 07/22/2017 03/01/2018 18 Encounter Details Date Type Department Care Team Description 02/16/2018 [facility] Rehabilitation Services [address] [facility] [address] [place] [address] [address] [address] [address] [place] [address] (Work) [phone] Social History Tobacco Use Types Packs/Day Years Used Date Smoking Tobacco: Never Smokeless Tobacco: Never Sex Assigned at Date Recorded Not on file documented as of this encounter Plan of Treatment Not on filedocumented as of this encounter Visit Diagnoses Not on filedocumented in this encounter Care Teams Base Cloth Inspector Relationship Specialty Start Date End Date Idalmis Sloan PCP - General Family Practice 11/04/13 documented as of this encounter
--- OUTSIDE RECORDS SUMMARY | 2022-02-05 15:14 | XMS_ITS | Encounter Summary ---
:1950 Author Organization [place] Address [address] [place] [address] Care Team Providers Name Role Phone Idalmis Sloan Primary Care Provider Encounter Details Date Type Department Care Team Description 03/23/2019 Therapy Visit [facility] [place], Lumbar pain (Primary Rehabilitation Services FIELD RECORDER Dx) [facility] [address] [facility] [address] [place] [address] Social History Tobacco Use Types Packs/Day Years Used Date Smoking Tobacco: Never Smokeless Tobacco: Never Sex Assigned at Date Recorded Not on file documented as of this encounter Plan of Treatment Not on filedocumented as of this encounter Procedures Procedure Name Priority Date/Time Associated Diagnosis Comme nts Z THERAPEUTIC Routine 03/23/2019 3:35 PM MANAGER PERFORMANCE IMPROVEMENT Lumbar pain ACTIVITIES ZZ THERAPEUTIC Routine 03/23/2019 3:35 PM MANAGER PERFORMANCE IMPROVEMENT Lumbar pain EXERCISES documented in this encounter Visit Diagnoses Diagnosis Lumbar pain - Primary Lumbago documented in this encounter Care Teams Business Management Specialist Relationship Specialty Start Date End Date Idalmis Sloan PCP - General Family Practice 11/04/13 documented as of this encounter
--- OUTSIDE RECORDS SUMMARY | 2022-02-05 15:14 | XMS_ITS | Encounter Summary ---
:1950 Author Organization [place] Address [facility] [place] [address] Care Team Providers Name Role Phone Idalmis Sloan Primary Care Provider Reason for Referral Diagnostic Imaging XR (Routine) - Closed Specialty Diagnoses / Procedures Referred By Contact Refer red To Contact Diagnoses Acute bilateral low back pain with left-sided sciatica Ana Jacobs PA-C Procedures XR Lumbar Bending Only 2/3 Views [facility] [place] [address] Referral ID Status Reason Start Date Expiration Date Visits Requ ested Visits Authorized [id number] Closed 10/29/2020 10/29/2021 1 1 Diagnostic Imaging XR (Routine) - Closed Specialty Diagnoses / Procedures Referred By Contact Refer red To Contact Diagnoses Acute bilateral low back pain with left-sided sciatica Ana Jacobs PA-C Procedures XR Spine Complete Scoliosis 2 Views [facility] [place] [address] Referral ID Status Reason Start Date Expiration Date Visits Requ ested Visits Authorized [id number] Closed 10/29/2020 10/29/2021 [address] Scan (Routine) - Closed Specialty Diagnoses / Procedures Referred By Contact Refer red To Contact Diagnoses Acute bilateral low back pain with left-sided sciatica Ana Jacobs PA-C Procedures CT Lumbar Spine w/o Contrast [facility] [place] [address] [place] [address] Referral ID Status Reason Start Date Expiration Date Visits Requ ested Visits Authorized [id number] Closed 10/29/2020 10/29/2021 1 1 Reason for Visit Reason Comments Consult Low back pain; L hip pain Neurologic Problem Encounter Details Date Type Department Care Team Description 10/29/2020 Office Visit [facility] [place] [address] [place] [address] Acute bilateral low back pain with left- sided sciatica (Primary Dx); [facility] Neurosurgery Ana Jacobs PA-C [facility] [address] [address] Lumbar radiculopathy Clinic [place] [id number] [place] [address] Drive [address] [place] [phone] Social History Tobacco Use Types Packs/Day Years [...] will need to call to schedule. Call [facility] radiology scheduling for your procedure: For scheduling in the [place] ([facility], and [place]) call [phone] or [phone] For scheduling at [facility] ([facility], [facility], [facility]), call [phone] or [phone] For scheduling in the [place] ([facility]) call [phone] or [phone] -Recommend scoliosis films in addition to standing XR neutral/flexion/extension -Recommend following up once all imaging has been obtained to review and go over next Ana Jacobs PA-C [facility] Neurosurgery [address] [place] [address] documented in this encounter Progress Notes Ana [...] None of these modalities have provided anysignificant nursing home relief. Krys's Sachin had prior back surgery [...] agreed to call our office back at [phone] to further discuss possible surgical interventions or [...] seek being evaluated. Respectfully, Ana Jacobs PA-C [facility] Neurosurgery [address] [address] Exam, imaging, and plan reviewed by Dr. [...] MR 06/22/2020. TORRES RIVAS MD SYSTEM ID: ??[id number] Narrative 11/09/2020 9:[address] LUMBAR [...] MR 06/22/2020. TORRES RIVAS MD SYSTEM ID: [id number] Ana COULTER-C IMG CT ORDERABLES XR Lumbar [...] extension. JULIO CÉSAR HUITRON MD SYSTEM ID: ??[id number] Narrative 10/29/2020 4:29 PM CDT XR LUMBAR [...] extension. JULIO CÉSAR HUITRON MD SYSTEM ID: [id number] Ana Jacobs PA-C IMG DIAGNOSTIC IMAGING ORDER [...] sciatica documented in this encounter Care Teams Bridge Operator Relationship Specialty Start Date End Date Idalmis Sloan PCP - General Family Practice 11/04/13 documented as of this encounter
--- OUTSIDE RECORDS SUMMARY | 2022-02-05 15:14 | XMS_ITS | Encounter Summary ---
:1950 Author Organization [place] Address [facility] [place] [address] Care Team Providers Name Role Phone Idalmis Sloan Primary Care Provider Encounter Details Date Type Department Care Team Description 04/14/2019 Therapy Visit [facility] [place], Lumbar pain (Primary Rehabilitation Services BEESWAX BLEACHER Dx) [facility] [address] [facility] [address] [place], [place] [address] Social History Tobacco Use Types Packs/Day Years [...] might increase back pain. Functionally has improved. ICIAN UNDERWRITER Adiel Ramirez 04/14/2019 2:30 PM CST Assessment/Plan: [...] and time spent performing 1:1 timed codes. ICIAN UNDERWRITER documented in this encounter Miscellaneous Notes Addendum Note - Adiel Ramirez - 04/14/2019 2:30 PM PHYSICIAN UNDERWRITER Addended by: ADIEL RAMIREZ on: 04/15/2019 11:09 AM Modules accepted: Orders ICIAN UNDERWRITER documented in this encounter Plan of Treatment Not on filedocumented as of this encounter Procedures Procedure Name Priority Date/Time Associated Diagnosis Comme [facility] Z THERAPEUTIC Routine 04/15/2019 10:52 AM Lumbar pain ACTIVITIES PHYSICIAN UNDERWRITER documented in this encounter Visit Diagnoses Diagnosis Lumbar pain - Primary Lumbago documented in this encounter Care Teams Supervisor Roller Shop Relationship Specialty Start Date End Date Idalmis Sloan PCP - General Family Practice 11/04/13 documented as of this encounter
--- OUTSIDE RECORDS SUMMARY | 2022-02-05 15:14 | XMS_ITS | Encounter Summary ---
:1950 Author Organization [place] Address [facility] [place] [address] Care Team Providers Name Role Phone Idalmis [...] on filedocumented in this encounter Care Teams Emergency Worker Relationship Specialty Start Date End Date Idalmis Sloan PCP - General Family Practice 11/04/13 Ana Jacobs PA-C Assigned Neuroscience 11/04/20 12/01/20 [facility] Provider [address] [id number] documented as of this encounter
--- OUTSIDE RECORDS SUMMARY | 2022-02-05 15:14 | XMS_ITS | Encounter Summary ---
:1950 Author Organization [place] Address [address] [place] [address] Care Team Providers Name Role Phone Idalmis [...] on filedocumented in this encounter Care Teams Electroplating Technician Relationship Specialty Start Date End Date Idalmis Sloan PCP - General Family Practice 11/04/13 documented as of this encounter
--- OUTSIDE RECORDS SUMMARY | 2022-02-05 15:14 | XMS_ITS | Encounter Summary ---
:1950 Author Organization [place] Address [address] [place] [address] Care Team Providers Name Role Phone Idalmis Sloan Primary Care Provider Ana Jacobs PA-C Unavailable Reason for Referral Diagnostic Imaging CT Scan (Routine) - Closed Specialty Diagnoses / Procedures Referred By Contact Refer red To Contact Diagnoses Acute bilateral low back pain with left-sided sciatica Ana Jacobs PA-C Procedures CT Lumbar Spine w/o Contrast [facility] [address] [place] [address] Referral ID Status Reason Start Date Expiration Date Visits Requ ested Visits Authorized [id number] Closed 10/29/2020 10/29/2021 1 1 Reason for Visit Diagnostic Imaging CT Scan (Routine) - Closed Specialty Diagnoses / Procedures Referred By Contact Refer red To Contact Diagnoses Acute bilateral low back pain with left-sided sciatica Ana Jacobs PA-C Procedures CT Lumbar Spine w/o Contrast [facility] [place] [address] Referral ID Status Reason Start Date Expiration Date Visits Requ ested Visits Authorized [id number] Closed 10/29/2020 10/29/2021 1 1 Encounter Details Date Type Department Care Team Description 11/08/2020 [facility] VIELKA Alcaraz back pain with [address] [place] [address] [facility] left-sided sciatica [facility] [id number] [address] [phone] [address] [place] [address] Social History Tobacco Use Types Packs/Day Years [...] MR 06/22/2020. TORRES RIVAS MD SYSTEM ID: ??[id number] Narrative 11/09/2020 9:[address] LUMBAR [...] MR 06/22/2020. TORRES RIVAS MD SYSTEM ID: [id number] Ana Jacobs PA-C IMG CT ORDERABLES documented in this encounter Visit Diagnoses Diagnosis Acute bilateral low back pain with left- sided sciatica documented in this encounter Care Teams Imaging Nurse Relationship Specialty Start Date End Date Idalmis Sloan PCP - General Family Practice 11/04/13 Ana Jacobs PA-C Assigned Neuroscience 11/04/20 12/01/20 [facility] Provider [address] [address] documented as of this encounter
--- OUTSIDE RECORDS SUMMARY | 2022-02-05 15:14 | XMS_ITS | Encounter Summary ---
:1950 Author Organization [place] Address [address] [facility] [place] [address] Care Team Providers Name Role Phone Idalmis Sloan Primary Care Provider Reason for Visit KIMBER Physical Therapy (Routine) - Closed Specialty Diagnoses / Procedures Referred By Contact Refer red To Contact Environmental Health Safety Manager Diagnoses >4 [place] side hip pain, LBP / Idalmis Sloan MD@ [place] / [facility] /referral exists 20V thru 03.01.18(MSG) Idalmis Sloan Linda, PTA / Physical Therapy Procedures SPINE FOLLOW UP [facility] [address] [place] [address] Referral ID Status Reason Start Date Expiration Date Visits Requ ested Visits Authorized [id number] Closed 03/16/2018 03/01/2019 20 18 Encounter Details Date Type Department Care Team Description 03/22/[address] [facility] [place], Hip josefina n, left Rehabilitation Services [facility] [address] [facility] [address] [place] [address] Social History Tobacco Use Types [...] Procedure Name Priority Date/Time Associated Diagnosis Comme [facility] THERAPEUTIC Routine 03/23/2018 12:46 PM Hip pain, left EXERCISES AMF MECHANIC documented in this encounter Visit Diagnoses Diagnosis Hip pain, left Pain in joint, pelvic region and thigh documented in this encounter Care Teams Wheel Alignment Technician Relationship Specialty Start Date End Date Idalmis Sloan PCP - General Family Practice 11/04/13 documented as of this encounter
--- OUTSIDE RECORDS SUMMARY | 2022-02-05 15:14 | XMS_ITS | Encounter Summary ---
:1950 Author Organization [place] Address [address] [place] [address]. [place] [address] Care Team Providers Name Role Phone Idalmis Sloan Primary Care Provider Reason for Visit Diagnostic Imaging XR (Routine) - Closed Specialty Diagnoses / Procedures Referred By Contact Refer red To Contact Diagnoses Acute bilateral low back pain with left-sided sciatica Ana Jacobs PA-C Procedures XR Spine Complete Scoliosis 2 Views [facility] [address] [facility] [address] [place] [address] Referral ID Status Reason Start Date Expiration Date Visits Requ ested Visits Authorized [id number] Closed 10/29/2020 10/29/2021 1 1 Encounter Details Date Type Department Care Team Description 10/29/2020 Ancillary Procedure [facility] Ana Jacobs Acu te bilateral low Sports and VIELKA Alcaraz back pain with [facility] AND BRAIN left-side d sciatica [facility] [address] [facility] [address] [facility] [address] [place] [address] [address] [place] [id number] Social History Tobacco Use Types Packs/Day Years [...] sciatica documented in this encounter Care Teams Reel Hooker Relationship Specialty Start Date End Date Idalmis Sloan PCP - General Family Practice 11/04/13 documented as of this encounter
--- OUTSIDE RECORDS SUMMARY | 2022-02-05 15:14 | XMS_ITS | Encounter Summary ---
:1950 Author Organization [place] Address [address] [place] [address] Care Team Providers Name Role Phone Idalmis [...] on filedocumented in this encounter Care Teams Chemical Milling Processor Relationship Specialty Start Date End Date Idalmis Sloan PCP - General Family Practice 11/04/13 documented as of this encounter
--- OUTSIDE RECORDS SUMMARY | 2022-02-05 15:14 | XMS_ITS | Encounter Summary ---
:1950 Author Organization [place] Address [facility] [place] [address] Care Team Providers Name Role Phone Idalmis Sloan Primary Care Provider Encounter Details Date Type Department Care Team Description 02/16/2019 Therapy Visit [facility] Jensen Hernandez, PT Lumbar pain Rehabilitation Services [address] [facility] [address] [place] [address] [place] [address] Social History Tobacco Use Types Packs/Day Years Used Date Smoking Tobacco: Never Smokeless Tobacco: Never Sex Assigned at Date Recorded Not on file documented as of this encounter Progress Notes Jensen Hernandez, PT - 02/16/2019 3:20 PM CST [facility] Initial Evaluation Subjective: History of lumbar pain for years which has included 3 previous surgeries to her lower back. Pt can'trecall the dates of her surgeries. Pt noted pain of unknown etiology approximately 6 -8 weeks ago. Pt referred by MD for physical therapy on 12-29-18 The history is provided by the patient. No cut out and marking machine operator was used. Type of problem: Lumbar [...] Left: Moderate loss Right: Moderate loss Side [place]: Left: Right: Strength: weak lower abdominals and [...] and time spent performing 1:1 timed codes. ROOM SUPERVISOR documented in this encounter Plan of Treatment Not on filedocumented as of this encounter Procedures Procedure Name Priority Date/Time Associated Diagnosis Comme [facility] ZZ THERAPEUTIC Routine 02/16/2019 6:42 PM WAX ROOM SUPERVISOR Lumbar pain EXERCISES documented in this encounter Visit Diagnoses Diagnosis Lumbar pain Lumbago documented in this encounter Care Teams Bag Checker Relationship Specialty Start Date End Date Idalmis Sloan PCP - General Family Practice 11/04/13 documented as of this encounter
--- OUTSIDE RECORDS SUMMARY | 2022-02-05 15:14 | XMS_ITS | Encounter Summary ---
:1950 Author Organization [place] Address [address] [place] [address] Care Team Providers Name Role Phone Idalmis Sloan Primary Care Provider Encounter Details Date Type Department Care Team Description 04/06/2019 [facility] Lumbar [facility] (Primary Rehabilitation Services [address] Dx) [address] [address] [address] [place] [address] (Work) [phone] Social History Tobacco Use Types Packs/Day Years Used Date Smoking Tobacco: Never Smokeless Tobacco: Never Sex Assigned at Date Recorded Not on file documented as of this encounter Plan of Treatment Not on filedocumented as of this encounter Procedures Procedure Name Priority Date/Time Associated Diagnosis Comme [facility] ZZ THERAPEUTIC Routine 04/06/2019 3:49 PM PROCESS CONTROLLER Lumbar pain EXERCISES documented in this encounter Visit Diagnoses Diagnosis Lumbar pain - Primary Lumbago documented in this encounter Care Teams Enterprise Engineer Relationship Specialty Start Date End Date Idalmis Sloan PCP - General Family Practice 11/04/13 documented as of this encounter
--- OUTSIDE RECORDS SUMMARY | 2022-02-05 15:14 | XMS_ITS | Encounter Summary ---
:1950 Author Organization [place] Address [address] [place] [address] Care Team Providers Name Role Phone Idalmis [...] on filedocumented in this encounter Care Teams Biology Intern Relationship Specialty Start Date End Date Idalmis Sloan PCP - General Family Practice 11/04/13 documented as of this encounter
--- OUTSIDE RECORDS SUMMARY | 2022-02-05 15:14 | XMS_ITS | Encounter Summary ---
:1950 Author Organization [place] Address [address] [place] [address] Care Team Providers Name Role Phone Idalmis [...] on filedocumented in this encounter Care Teams Boat Laborer Relationship Specialty Start Date End Date Idalmis Sloan PCP - General Family Practice 11/04/13 documented as of this encounter
--- OUTSIDE RECORDS SUMMARY | 2022-02-05 15:14 | XMS_ITS | Encounter Summary ---
:1950 Author Organization [place] Address [address] [place] [address] Care Team Providers Name Role Phone Idalmis [...] filedocumented in this encounter Care Teams Patient Financial Specialist Relationship Specialty Start Date End Date Idalmis Sloan PCP - General Family Practice 11/04/13 documented as of this encounter
--- OUTSIDE RECORDS SUMMARY | 2022-02-05 15:15 | XMS_ITS | Encounter Summary ---
:1950 Author Organization [place] Address [address] [place] [address] Care Team Providers Name Role Phone Idalmis Sloan Primary Care Provider Encounter Details Date Type Department Care Team Description 10/02/2015 Telephone [facility] Nu rse Advisors Madelin Brown, RN [address] [place] [address] Social History Tobacco Use Types Packs/Day [...] on filedocumented in this encounter Care Teams Chute Puller Relationship Specialty Start Date End Date Idalmis Sloan PCP - General Family Practice 11/04/13 documented as of this encounter
--- OUTSIDE RECORDS SUMMARY | 2022-02-05 15:15 | XMS_ITS | Encounter Summary ---
:1950 Author Organization [place] Address [facility] [place] [address] Care Team Providers Name Role Phone Idalmis Sloan Primary Care Provider Reason for Visit K[facility]BER Physical Therapy (Routine) - Denied Specialty Diagnoses / Procedures Referred By Contact Refer red To Contact Physical Therapy Diagnoses >4 s/p L rot tiff / mehdi lorenzana @ ortho / BCBS 30 visits per year Mehdi Gaffney MD Judd, Laurie, PT Procedures [facility] AND [id number] [place] [address] [address] [facility] [address] [place], [place] [id number] [place] [address] Referral ID Status Reason Start Date Expiration Date Visits V isits Requested Authorized KIMBER/WC/PT/L Denied 06/11/2015 06/10/2016 14 0 SHLDR POST [id number] Encounter Details Date Type Department Care Team Description 06/11/2015 [facility] Sprain of left rotator cuff capsule (Apoorva womack Dx); Rehabilitation [address] MARYANA Other postp rocedural status(V45.89) Services [address] [facility] [address] [place] [address] [address] [address] [place] [address] (Work) [phone] Social History Tobacco Use Types Packs/Day Years [...] status documented in this encounter Care Teams Dry Talc Racker Relationship Specialty Start Date End Date Idalmis Sloan PCP - General Family Practice 11/04/13 documented as of this encounter
--- OUTSIDE RECORDS SUMMARY | 2022-02-05 15:15 | XMS_ITS | Encounter Summary ---
:1950 Author Organization [place] Address [address] [place] [address] Care Team Providers Name Role Phone Idalmis Sloan Primary Care Provider Ana Jacobs PA-C Unavailable Madhav Matute MD Unavailable Encounter Details Date Type Department Care Team Description 11/21/2014 External Order [facility] Outside, Provider Results Rehabilitation Services [facility] [address] [place] [address] [address] [place] [address] Social History Tobacco Use Types [...] documented as of this encounter Care Teams Electrical Sign Servicer Relationship Specialty Start Date End Date Idalmis Sloan Ann PCP - General Family Practice 11/04/13 Ana Jacobs PA-C Assigned Neuroscience 11/04/20 12/01/20 [facility] Provider [address] [id number] Madhav Matute MD Assigned Neuroscience 12/02/20 [address] [id number] documented as of this encounter
--- OUTSIDE RECORDS SUMMARY | 2022-02-05 15:15 | XMS_ITS | Encounter Summary ---
:1950 Author Organization [place] Address [address] [facility] [place] [address] Care Team Providers Name Role Phone Idalmis Sloan Primary Care Provider Encounter Details Date Type Department Care Team Description 06/03/2015 Telephone [facility] Nurse Sabiha Shelton , RN Advisors [address] [place] [address] Social History Tobacco Use Types Packs/Day [...] bone; or pure bloody urine ? NO [place]uka something pass with urination ? NO Unbearable [...] on filedocumented in this encounter Care Teams Cytogenetic Technician Relationship Specialty Start Date End Date Idalmis Sloan PCP - General Family Practice 11/04/13 documented as of this encounter
--- OUTSIDE RECORDS SUMMARY | 2022-02-05 15:15 | XMS_ITS | Encounter Summary ---
:1950 Author Organization [place] Address [facility] [place] [address] Care Team Providers Name Role Phone Idalmis Sloan Primary Care Provider Reason for Visit KIMBER Physical Therapy (Routine) - Denied Specialty Diagnoses / Procedures Referred By Contact Refer red To Contact Physical Therapy Diagnoses >4 s/p L rot tiff / mehdi lorenzana @ ortho / BCBS 30 visits per year Mehdi Gaffney MD Judd, Laurie, PT Procedures [facility] AND [id number] [place] [address] [facility] [address] [place] [phone] [place] [phone] Referral ID Status Reason Start Date Expiration Date Visits V isits Requested Authorized KIMBER/WC/PT/L Denied 06/11/2015 06/10/2016 14 0 SHLDR POST [id number] Encounter Details Date Type Department Care Team Description 08/01/2015 Therapy Visit M [facility] [place] Wheeler, PT Sprain of left rotator cuff capsule, sub sequent encounter (Primary Dx); Rehabilitation [address] MARYANA Other postp rocedural status(V45.89) Services [address] [facility] [address] [place] [address] [address] [address] [place] [address] (Work) [phone] Social History Tobacco Use Types Packs/Day Years Used Date Smoking Tobacco: Never Assessed Sex Assigned at Date Recorded Not on file documented as of this encounter Plan of Treatment Not on filedocumented as of this encounter Procedures Procedure Name Priority Date/Time Associated Diagnosis Comme nts [facility] NEUROMUSCULAR Routine 08/02/2015 7:18 AM Sprain of left ro tator RE-EDUCATION CDT cuff capsule, subsequent encounter Other postprocedural status(V45.89) [facility] THERAPEUTIC Routine 08/02/2015 7:18 AM Sprain of left rota tor EXERCISES CDT cuff capsule, subsequent encounter Other postprocedural status(V45.89) documented in this encounter Visit Diagnoses Diagnosis Sprain of left rotator cuff capsule, sub sequent encounter - Primary Other postprocedural status(V45.89) Other postprocedural status documented in this encounter Care Teams Colors Custodian Relationship Specialty Start Date End Date Idalmis Sloan PCP - General Family Practice 11/04/13 documented as of this encounter
--- OUTSIDE RECORDS SUMMARY | 2022-02-05 15:15 | XMS_ITS | Encounter Summary ---
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
--- OUTSIDE RECORDS SUMMARY | 2022-02-05 15:15 | XMS_ITS | Encounter Summary ---
:1950 Author Organization [place] Address [address] [place] [address] Care Team Providers Name Role Phone Idalmis Sloan Primary Care Provider Encounter Details Date Type Department Care Team Description 11/16/2015 Therapy Visit [facility] [place] Saeed, PT Cervical radiculitis (Primary Dx); Rehabilitation [address] [place] Sprain of l eft rotator cuff capsule, subsequent encounter; Services [place] [address] Other postprocedural status(V45.89) [facility] [place] [address] [address] [address] [place] [address] (Work) [phone] Social History Tobacco Use Types Packs/Day Years [...] status documented in this encounter Care Teams Rig Manager Relationship Specialty Start Date End Date Idalmis Sloan PCP - General Family Practice 11/04/13 documented as of this encounter
--- OUTSIDE RECORDS SUMMARY | 2022-02-05 15:15 | XMS_ITS | Encounter Summary ---
:1950 Author Organization [place] Address [address] [place] [address] Care Team Providers Name Role Phone Idalmis Sloan Primary Care Provider Encounter Details Date Type Department Care Team Description 11/09/2014 Therapy Visit [facility] Fidelia Chang pain Rehabilitation Services SHANAE Sweet (Primary Dx) [place] [facility] [address] [place] [address] [facility] [address] [place] [address] [phone] Social History Tobacco Use Types Packs/Day Years [...] from spouse. BETTER with rest, methocarbanol. 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 Objective: System Shoulder Evaluation: ROM: AROM: Flexion: [...] 10:13 AM Left shoulder pain EXERCISES CDT [facility] HOT OR COLD PACKS Routine 11/13/2014 10:13 AM Left shoulde r pain THERAPY CDT documented in this encounter Visit Diagnoses Diagnosis Left shoulder pain - Primary Pain in joint, shoulder region documented in this encounter Care Teams Alumina Refinery Operator Relationship Specialty Start Date End Date Idalmis Sloan PCP - General Family Practice 11/04/13 documented as of this encounter
--- OUTSIDE RECORDS SUMMARY | 2022-02-05 15:15 | XMS_ITS | Encounter Summary ---
:1950 Author Organization [place] Address [facility] [place] [address] Care Team Providers Name Role Phone Idalmis Sloan Primary Care Provider Reason for Visit KIMBER Physical Therapy (Routine) - Denied Specialty Diagnoses / Procedures Referred By Contact Refer red To Contact Physical Therapy Diagnoses >4 s/p L rot tiff / mehdi lorenzana @ ortho / BCBS 30 visits per year Mehdi Gaffney MD Judd, Laurie, PT Procedures [facility] AND [id number] [place] [address] [facility] [address] [place] [phone] [place] [id number] Referral ID Status Reason Start Date Expiration Date Visits V isits Requested Authorized KIMBER/WC/PT/L Denied 06/11/2015 06/10/2016 14 0 SHLDR POST [id number] Encounter Details Date Type Department Care Team Description 08/16/2015 Therapy Visit M [facility] [place] Wheeler, PT Sprain of left rotator cuff capsule, sub sequent encounter (Primary Dx); Rehabilitation [address] MARYANA Other postp rocedural status(V45.89) Services [place] [address] [facility] [address] [place] [address] [address] [address] [place] [address] (Work) [phone] Social History Tobacco Use Types Packs/Day Years Used Date Smoking Tobacco: Never Assessed Sex Assigned at Date Recorded Not on file documented as of this encounter Plan of Treatment Not on filedocumented as of this encounter Procedures Procedure Name Priority Date/Time Associated Diagnosis Comme nts [facility] NEUROMUSCULAR Routine 08/16/2015 5:04 PM Sprain of left ro tator RE-EDUCATION CDT cuff capsule, subsequent encounter Other postprocedural status(V45.89) [facility] THERAPEUTIC Routine 08/16/2015 5:04 PM Sprain of left rota tor EXERCISES CDT cuff capsule, subsequent encounter Other postprocedural status(V45.89) documented in this encounter Visit Diagnoses Diagnosis Sprain of left rotator cuff capsule, sub sequent encounter - Primary Other postprocedural status(V45.89) Other postprocedural status documented in this encounter Care Teams Manager Of Production Relationship Specialty Start Date End Date Idalmis Sloan PCP - General Family Practice 11/04/13 documented as of this encounter
--- OUTSIDE RECORDS SUMMARY | 2022-02-05 15:15 | XMS_ITS | Encounter Summary ---
:1950 Author Organization [place] Address [facility] [place] [address] Care Team Providers Name Role Phone Idalmis Sloan Primary Care Provider Reason for Visit KIMBER Physical Therapy (Routine) - Denied Specialty Diagnoses / Procedures Referred By Contact Refer red To Contact Physical Therapy Diagnoses >4 s/p L rot tiff / mehdi lorenzana @ ortho / BCBS 30 visits per year Mehdi Gaffney MD Judd, Laurie, PT Procedures [facility] AND [id number] [place] [address] [facility] [address] [place] [phone] Referral ID Status Reason Start Date Expiration Date Visits V isits Requested Authorized KIMBER/WC/PT/L Denied 06/11/2015 06/10/2016 14 0 SHLDR POST [id number] Encounter Details Date Type Department Care Team Description 08/07/2015 Therapy Visit M [facility] Artie, Sprain of left rotator cuff capsule, subsequent encounter (Primary Dx); Rehabilitation Services CORRINA Melissa r postprocedural status(V45.89) [facility] [address] [place] [address] [place] [address] Social History Tobacco Use Types [...] status documented in this encounter Care Teams Ict Support Technicians Relationship Specialty Start Date End Date Idalmis Sloan PCP - General Family Practice 11/04/13 documented as of this encounter
--- OUTSIDE RECORDS SUMMARY | 2022-02-05 15:15 | XMS_ITS | Encounter Summary ---
:1950 Author Organization [place] Address [address] [place] [address]. [place] [address] Care Team Providers Name Role Phone Idalmis Sloan Primary Care Provider Reason for Visit KIMBER Physical Therapy (Routine) - Denied Specialty Diagnoses / Procedures Referred By Contact Refer red To Contact Physical Therapy Diagnoses >4 s/p L rot tiff / mehdi lorenzana @ ortho / BCBS 30 visits per year Mehdi Gaffney MD Judd, Laurie, PT Procedures [facility] AND [id number] [place] [address] [facility] [address] [place] [phone] Referral ID Status Reason Start Date Expiration Date Visits V isits Requested Authorized KIMBER/WC/PT/L Denied 06/11/2015 06/10/2016 14 0 SHLDR POST [id number] Encounter Details Date Type Department Care Team Description 07/10/2015 Therapy Visit [facility] Artie, Sprain of left rotator cuff capsule, subsequent encounter (Primary Dx); Rehabilitation Services CORRINA Melissa postprocedural status(V45.89) [facility] [address] [facility] [address] [place] [address] Social History Tobacco Use Types [...] [facility] THERAPEUTIC Routine 07/11/2015 7:11 AM Sprain of left rota tor EXERCISES CDT cuff capsule, subsequent encounter Other postprocedural status(V45.89) documented in this encounter Visit Diagnoses Diagnosis Sprain of left rotator cuff capsule, sub sequent encounter - Primary Other postprocedural status(V45.89) Other postprocedural status documented in this encounter Care Teams Administrative Dietitian Relationship Specialty Start Date End Date Idalmis Sloan PCP - General Family Practice 11/04/13 documented as of this encounter
--- OUTSIDE RECORDS SUMMARY | 2022-02-05 15:15 | XMS_ITS | Encounter Summary ---
:1950 Author Organization [place] Address [facility] [place] [address] Care Team Providers Name Role Phone Idalmis Sloan Primary Care Provider Encounter Details Date Type Department Care Team Description 10/02/2015 Therapy Visit [facility] [place] Saeed, PT Cervical radiculitis Rehabilitation Services [address] [place] (Primary Dx) [address] [address] [address] [place] [address] (Work) [phone] Social History Tobacco Use Types Packs/Day Years [...] extension) C8 (thumb extension) T1 (finger add/abd) Straight Truck Driver Strength (lb) Sensory Deficit, Reflexes, Dural Signs: [...] Sheet for this information) 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
--- OUTSIDE RECORDS SUMMARY | 2022-02-05 15:15 | XMS_ITS | Encounter Summary ---
:1950 Author Organization [place] Address [address] [place] [address] Care Team Providers Name Role Phone Idalmis Sloan Primary Care Provider Encounter Details Date Type Department Care Team Description 09/05/2015 Therapy Visit [facility] [place] Saeed, SHANAE Sprain of left rotator cuff capsule, sub sequent encounter (Primary Dx); Rehabilitation [address] [place] Other postp rocedural status(V45.89) Services [place] [address] [place] [address] [address] [address] [place] [address] (Work) [phone] Social History Tobacco Use Types Packs/Day Years Used Date Smoking Tobacco: Never Assessed Sex Assigned at Date Recorded Not on file documented as of this encounter Plan of Treatment Not on filedocumented as of this encounter Procedures Procedure Name Priority Date/Time Associated Diagnosis Comme nts [facility] NEUROMUSCULAR Routine 09/05/2015 3:16 PM Sprain of left ro tator RE-EDUCATION CDT cuff capsule, subsequent encounter Other postprocedural status(V45.89) [facility] THERAPEUTIC Routine 09/05/2015 3:16 PM Sprain of left rota tor EXERCISES CDT cuff capsule, subsequent encounter Other postprocedural status(V45.89) documented in this encounter Visit Diagnoses Diagnosis Sprain of left rotator cuff capsule, sub sequent encounter - Primary Other postprocedural status(V45.89) Other postprocedural status documented in this encounter Care Teams Back Up Machine Operator Relationship Specialty Start Date End Date Idalmis Sloan PCP - General Family Practice 11/04/13 documented as of this encounter
--- OUTSIDE RECORDS SUMMARY | 2022-02-05 15:15 | XMS_ITS | Encounter Summary ---
:1950 Author Organization [place] Address [facility] [place] [address] Care Team Providers Name Role Phone Idalmis Sloan Primary Care Provider Reason for Visit KIMBER Physical Therapy (Routine) - Denied Specialty Diagnoses / Procedures Referred By Contact Refer red To Contact Physical Therapy Diagnoses >4 s/p L rot tiff / mehdi lorenzana @ ortho / BCBS 30 visits per year Mehdi Gaffney MD Judd, Laurie, PT Procedures [facility] AND [id number] [place] [address] [facility] [address] [place] [id number] Referral ID Status Reason Start Date Expiration Date Visits V isits Requested Authorized KIMBER/WC/PT/L Denied 06/11/2015 06/10/2016 14 0 SHLDR POST [id number] Encounter Details Date Type Department Care Team Description 06/14/2015 Therapy Visit M [facility] Artie, Sprain of left rotator cuff capsule, subsequent encounter (Primary Dx); Rehabilitation Services CORRINA Melissa postprocedural status(V45.89) [facility] [address] [facility] [address] [place] [address] Social History Tobacco Use Types Packs/Day Years Used Date Smoking Tobacco: Never Assessed Sex Assigned at Date Recorded Not on file documented as of this encounter Plan of Treatment Not on filedocumented as of this encounter Procedures Procedure Name Priority Date/Time Associated Diagnosis Comme [facility] THERAPEUTIC Routine 06/15/2015 6:45 AM [...] documented in this encounter Care Teams Store Coordinator Relationship Specialty Start Date End Date Idalmis Sloan PCP - General Family Practice 11/04/13 documented as of this encounter
--- OUTSIDE RECORDS SUMMARY | 2022-02-05 15:15 | XMS_ITS | Encounter Summary ---
:1950 Author Organization [place] Address [address] [facility] [place] [address] Care Team Providers Name Role Phone Idalmis Sloan Primary Care Provider Reason for Visit Reason Onset Date Comments Outreach 04/14/2017 UC FOLLOW UP - COMPL ETED Encounter Details Date Type Department Care Team Description 04/14/2017 Telephone [facility] Laith Oliver ( FOLLOW UP Urgent Care Lacy Craig MD - COMPLETED) [address] [facility] [address] [place], [place], [place] [id number] [phone] Social History Tobacco Use Types Packs/Day Years [...] others? YES Comments: Appointment scheduled? NO Location? PERSON documented in this encounter Plan of Treatment Not on filedocumented as of this encounter Visit Diagnoses Not on filedocumented in this encounter Care Teams Fraternity House Cook Relationship Specialty Start Date End Date Idalmis Sloan PCP - General Family Practice 11/04/13 documented as of this encounter
--- OUTSIDE RECORDS SUMMARY | 2022-02-05 15:15 | XMS_ITS | Encounter Summary ---
:1950 Author Organization [place] Address [address] [place] [address] Care Team Providers Name Role Phone Idalmis Sloan Primary Care Provider Reason for Visit Reason Comments Urgent Care Cough cough and sinus pressure, tr eated for bronchitis Encounter Details Date Type Department Care Team Description 04/05/2017 Office Visit [facility] Liath Oliver Acute maxillary Urgent Care Lacy Craig MD sinusitis, recurrence [address] not specified (Primary [facility], [place] [address] Dx) [id number] Social History Tobacco Use Types Packs/Day Years Used Date Smoking Tobacco: Never Smokeless Tobacco: Never Sex Assigned at Date Recorded Not on file documented as of this encounter Last Filed Vital Signs Vital Sign Reading Time Taken Comments Blood Pressure 136/78 04/05/2017 3:01 PM CLOTH EXAMINER Pulse 76 04/05/2017 3:01 PM CLOTH EXAMINER Temperature 36.9 ??C (98.5 ??F) 04/05/2017 3:01 PM CLOTH EXAMINER Respiratory Rate 18 04/05/2017 3:01 PM CLOTH EXAMINER Oxygen Saturation 96% 04/05/2017 3:01 PM CLOTH EXAMINER Inhaled Oxygen Concentration - - Weight 65.8 kg (145 lb) 04/05/2017 3:01 PM CLOTH EXAMINER Height - - Body Mass Index - [...] if getting worse . Laith Oliver MD H EXAMINER documented in this encounter Nursing Notes Ana [...] calculate BMI. Medication Reconciliation: incomplete [place] HAND UPPER AND BOTTOM LACER H EXAMINER documented in this encounter Plan of Treatment Not on filedocumented as of this encounter Visit Diagnoses Diagnosis Acute maxillary sinusitis, recurrence no t specified - Primary documented in this encounter Care Teams Textile Machinery Sales Representative Relationship Specialty Start Date End Date Idalmis Sloan PCP - General Family Practice 11/04/13 documented as of this encounter
--- OUTSIDE RECORDS SUMMARY | 2022-02-05 15:15 | XMS_ITS | Encounter Summary ---
:1950 Author Organization [place] Address [facility] [place] [address] Care Team Providers Name Role Phone Idalmis Sloan Primary Care Provider Reason for Visit KIMBER Physical Therapy (Routine) - Denied Specialty Diagnoses / Procedures Referred By Contact Refer red To Contact Physical Therapy Diagnoses >4 s/p L rot tiff / mehdi lorenzana @ ortho / BCBS 30 visits per year Mehdi Gaffney MD Judd, Laurie, PT Procedures EXTREM[facility]IAL [facility]IC AND [id number] [place] [address] [facility] [address] [place] [phone] [place] [phone] Referral ID Status Reason Start Date Expiration Date Visits V isits Requested Authorized KIMBER/WC/PT/L Denied 06/11/2015 06/10/2016 14 0 SHLDR POST [id number] Encounter Details Date Type Department Care Team Description 08/09/2015 [facility] Sprain of left rotator cuff capsule, sub sequent encounter (Primary Dx); Rehabilitation [address] MARYANA Other postp rocedural status(V45.89) Services [place] [address] [facility] [address] [place] [address] [address] [address] [place] [address] (Work) [phone] Social History Tobacco Use Types Packs/Day Years Used Date Smoking Tobacco: Never Assessed Sex Assigned at Date Recorded Not on file documented as of this encounter Plan of Treatment Not on filedocumented as of this encounter Procedures Procedure Name Priority Date/Time Associated Diagnosis Comme nts [facility] NEUROMUSCULAR Routine 08/10/2015 10:23 AM Sprain of left r otator RE-EDUCATION CDT cuff capsule, subsequent encounter Other postprocedural status(V45.89) [facility] THERAPEUTIC Routine 08/10/2015 10:23 AM Sprain of left rot ator EXERCISES CDT cuff capsule, subsequent encounter Other postprocedural status(V45.89) documented in this encounter Visit Diagnoses Diagnosis Sprain of left rotator cuff capsule, sub sequent encounter - Primary Other postprocedural status(V45.89) Other postprocedural status documented in this encounter Care Teams Decorator Hand Relationship Specialty Start Date End Date Idalmis Sloan PCP - General Family Practice 11/04/13 documented as of this encounter
--- OUTSIDE RECORDS SUMMARY | 2022-02-05 15:15 | XMS_ITS | Encounter Summary ---
:1950 Author Organization [place] Address [address] [place] [address]. [place] [address] Care Team Providers Name Role Phone Idalmis Sloan Primary Care Provider Reason for Visit KIMBER Physical Therapy (Routine) - Denied Specialty Diagnoses / Procedures Referred By Contact Refer red To Contact Physical Therapy Diagnoses >4 s/p L rot cuff / mehdi lorenzana @ ortho / BCBS 30 visits per year Mehdi Gaffney MD Judd, Laurie, PT Procedures EXTREM[facility]IAL [facility]THOPAEDIC AND [id number] [place] [address] [facility] [address] [place] [phone] [place] [phone] Referral ID Status Reason Start Date Expiration Date Visits V isits Requested Authorized KIMBER/WC/PT/L Denied 06/11/2015 06/10/2016 14 0 SHLDR POST [id number] Encounter Details Date Type Department Care Team Description 08/03/2015 Therapy Visit M [facility] Artie, Sprain of left rotator cuff capsule, subsequent encounter (Primary Dx); Rehabilitation Services CORRINA Melissa postprocedural status(V45.89) [facility] [address] [facility] [address] [place] [address] Social History Tobacco Use Types [...] Other postprocedural status(V45.89) [facility] NEUROMUSCULAR Routine 08/03/2015 10:32 AM Sprain of left r otator RE-EDUCATION CDT cuff capsule, subsequent encounter Other postprocedural status(V45.89) [facility] THERAPEUTIC Routine 08/03/2015 10:32 AM Sprain of left rot ator EXERCISES CDT cuff capsule, subsequent encounter Other postprocedural status(V45.89) documented in this encounter Visit Diagnoses Diagnosis Sprain of left rotator cuff capsule, sub sequent encounter - Primary Other postprocedural status(V45.89) Other postprocedural status documented in this encounter Care Teams Conference Director Relationship Specialty Start Date End Date Idalmis Sloan PCP - General Family Practice 11/04/13 documented as of this encounter
--- OUTSIDE RECORDS SUMMARY | 2022-02-05 15:15 | XMS_ITS | Encounter Summary ---
:1950 Author Organization [place] Address [facility]0 [facility] [place] [address] Care Team Providers Name Role Phone Idalmis Sloan Primary Care Provider Reason for Visit KIMBER Physical Therapy (Routine) - Closed Specialty Diagnoses / Procedures Referred By Contact Refer red To Contact Physical Therapy Diagnoses >4, Back / Mercy Pedro @ [facility] Pain / BCBS Mercy Vasquez, HEALTHCARE TRANSLATOR Daniel Shi, PT Procedures SPINE INITIAL [facility] [address] [place] [address] [place] [address] [place] [address] Referral ID Status Reason Start Date Expiration Date Visits Requ ested Visits Authorized [id number] Closed 07/22/2017 03/01/2018 20 18 Encounter Details Date Type Department Care Team Description 08/14/2017 Therapy Visit [facility] Jensen Hernandez, PT Lumbago (Primary Dx) Rehabilitation Services [address] [place] [address] DR [place] Specialty [address] [address] [address] [place] [address] (Work) [phone] Social History Tobacco Use Types Packs/Day Years [...] is being advanced to more complex exercises. CORPORATE REAL ESTATE SPECIALIST/ATC plan: N/A Please refer to the daily [...] Name Priority Date/Time Associated Diagnosis Comme nts [facility] NEUROMUSCULAR Routine 08/14/2017 6:01 PM Lumbago RE-EDUCATION CDT [facility] THERAPEUTIC EXERCISES Routine 08/14/2017 6:01 PM Lumbago CDT documented in this encounter Visit Diagnoses Diagnosis Lumbago - Primary documented in this encounter Care Teams Modeling Analyst Relationship Specialty Start Date End Date Idalmis Sloan PCP - General Family Practice 11/04/13 documented as of this encounter
--- OUTSIDE RECORDS SUMMARY | 2022-02-05 15:15 | XMS_ITS | Encounter Summary ---
:1950 Author Organization [place] Address [address] [place] [address] Care Team Providers Name Role Phone Idalmis Sloan Primary Care Provider Encounter Details Date Type Department Care Team Description 11/30/[address] [facility] [place] Saeed PT Sprain of left rotator cuff capsule, sub sequent encounter (Primary Dx); Rehabilitation [address] [place] Other postp rocedural status(V45.89) Services [place] [address] [place] [address] [address] [address] [place] [address] (Work) [phone] Social History Tobacco Use Types Packs/Day Years Used Date Smoking Tobacco: Never Assessed Sex Assigned at Date Recorded Not on file documented as of this encounter Plan of Treatment Not on filedocumented as of this encounter Procedures Procedure Name Priority Date/Time Associated Diagnosis Comme nts [facility] NEUROMUSCULAR Routine 12/04/2015 1:24 PM Sprain of left RE-EDUCATION CDT rotator cuff capsule, subsequent encounter [facility] THERAPEUTIC EXERCISES Routine 12/04/2015 1:24 PM Sprain of left CDT rotator cuff capsule, subsequent encounter documented in this encounter Visit Diagnoses Diagnosis Sprain of left rotator cuff capsule, sub sequent encounter - Primary Other postprocedural status(V45.89) Other postprocedural status documented in this encounter Care Teams Rotary Drum Tanner Relationship Specialty Start Date End Date Idalmis Sloan PCP - General Family Practice 11/04/13 documented as of this encounter
--- OUTSIDE RECORDS SUMMARY | 2022-02-05 15:15 | XMS_ITS | Encounter Summary ---
:1950 Author Organization [place] Address [facility] [place] [address] Care Team Providers Name Role Phone Idalmis Sloan Primary Care Provider Reason for Visit KIMBER Physical Therapy (Routine) - Denied Specialty Diagnoses / Procedures Referred By Contact Refer red To Contact Physical Therapy Diagnoses >4 s/p L rot tiff / mehdi lorenzana @ ortho / BCBS 30 visits per year Mehdi Gaffney MD Judd, Laurie, PT Procedures [facility] AND [id number] [place] [address] [facility] [address] [place] [address] Referral ID Status Reason Start Date Expiration Date Visits V isits Requested Authorized KIMBER/WC/PT/L Denied 06/11/2015 06/10/2016 14 0 SHLDR POST [id number] Encounter Details Date Type Department Care Team Description 06/27/[address] [facility] Artie, Sprain of left rotator cuff capsule, subsequent encounter (Primary Dx); Rehabilitation Services CORRINA Melissa r postprocedural status(V45.89) [facility] [address] [facility] [address] [place] [address] Social History Tobacco Use Types Packs/Day Years Used Date Smoking Tobacco: Never Assessed Sex Assigned at Date Recorded Not on file documented as of this encounter Plan of Treatment Not on filedocumented as of this encounter Procedures Procedure Name Priority Date/Time Associated Diagnosis Comme [facility] THERAPEUTIC Routine 06/27/2015 8:29 PM [...] status documented in this encounter Care Teams Pulp Mill Team Leader Relationship Specialty Start Date End Date Idalmis Sloan PCP - General Family Practice 11/04/13 documented as of this encounter
--- OUTSIDE RECORDS SUMMARY | 2022-02-05 15:15 | XMS_ITS | Encounter Summary ---
:1950 Author Organization [place] Address [facility] [place] [address] Care Team Providers Name Role Phone Idalmis Sloan Primary Care Provider Reason for Visit KIMBER Physical Therapy (Routine) - Denied Specialty Diagnoses / Procedures Referred By Contact Refer red To Contact Physical Therapy Diagnoses >4 s/p L rot tiff / mehdi lorenzana @ ortho / BCBS 30 visits per year Mehdi Gaffney MD Judd, Laurie, PT Procedures [facility] AND [id number] [place] [address] [facility] [address] [place] [id number] [place] [address] Referral ID Status Reason Start Date Expiration Date Visits V isits Requested Authorized KIMBER/WC/PT/L Denied 06/11/2015 06/10/2016 14 0 SHLDR POST [id number] Encounter Details Date Type Department Care Team Description 08/21/2015 Therapy Visit [facility] [place] Wheeler, PT Sprain of left rotator cuff capsule, sub sequent encounter (Primary Dx); Rehabilitation [address] [place] Other postp rocedural status(V45.89) Services [place] [address] [facility] [address] [place] [address] [place] [address] [address] [address] [place] [address] (Work) [phone] Social History Tobacco Use Types Packs/Day Years Used Date Smoking Tobacco: Never Assessed Sex Assigned at Date Recorded Not on file documented as of this encounter Plan of Treatment Not on filedocumented as of this encounter Procedures Procedure Name Priority Date/Time Associated Diagnosis Comme nts [facility] NEUROMUSCULAR Routine 08/21/2015 3:47 PM Sprain of left ro tator RE-EDUCATION CDT cuff capsule, subsequent encounter Other postprocedural status(V45.89) [facility] THERAPEUTIC Routine 08/21/2015 3:47 PM Sprain of left rota tor EXERCISES CDT cuff capsule, subsequent encounter Other postprocedural status(V45.89) documented in this encounter Visit Diagnoses Diagnosis Sprain of left rotator cuff capsule, sub sequent encounter - Primary Other postprocedural status(V45.89) Other postprocedural status documented in this encounter Care Teams Hotel Director Relationship Specialty Start Date End Date Idalmis Sloan PCP - General Family Practice 11/04/13 documented as of this encounter
--- OUTSIDE RECORDS SUMMARY | 2022-02-05 15:15 | XMS_ITS | Encounter Summary ---
:1950 Author Organization [place] Address [facility] [address] Care Team Providers Name Role Phone Idalmis Sloan Primary Care Provider Reason for Visit KIMBER Physical Therapy (Routine) - Closed Specialty Diagnoses / Procedures Referred By Contact Refer red To Contact Physical Therapy Diagnoses >4, Back / Mercy Vasquez @ [facility] Pain / BCBS Mercy Vasquez, CIRCLE CUTTING SAW OPERATOR Daniel Shi, PT Procedures SPINE INITIAL [facility]IN [facility] [address] [place] [address] [place] [address] [place] [address] Referral ID Status Reason Start Date Expiration Date Visits Requ ested Visits Authorized [id number] Closed 07/22/2017 03/01/2018 20 18 Encounter Details Date Type Department Care Team Description 07/29/2017 Therapy Visit [facility] Daniel Shi Lumba go (Primary Rehabilitation Services PT Dx) [place] [facility] [address] [address] [facility] [address] [place] [address] [phone] Social History Tobacco Use Types Packs/Day Years Used Date Smoking Tobacco: Never Smokeless Tobacco: Never Sex Assigned at Date Recorded Not on file documented as of this encounter Progress Notes Anirudh Wells - 07/29/2017 3:10 PM CDT [facility] Initial Evaluation Krys Mosher [...] Primary documented in this encounter Care Teams Longwall Shearer Operator Relationship Specialty Start Date End Date Idalmis Sloan PCP - General Family Practice 11/04/13 documented as of this encounter
--- OUTSIDE RECORDS SUMMARY | 2022-02-05 15:15 | XMS_ITS | Encounter Summary ---
:1950 Author Organization [place] Address [facility] [place] [address] Care Team Providers Name Role Phone Idalmis Sloan Primary Care Provider Reason for Visit KIMBER Physical Therapy (Routine) - Denied Specialty Diagnoses / Procedures Referred By Contact Refer red To Contact Physical Therapy Diagnoses >4 s/p L rot tiff / mehdi lorenzana @ ortho / BCBS 30 visits per year Mehdi Gaffney MD Judd, Laurie, PT Procedures [facility] AND [id number] [place] [address] [facility] [address] [place] [id number] [place] [address] Referral ID Status Reason Start Date Expiration Date Visits V isits Requested Authorized KIMBER/WC/PT/L Denied 06/11/2015 06/10/2016 14 0 SHLDR POST [id number] Encounter Details Date Type Department Care Team Description 07/03/2015 Therapy Visit M [facility] [place], PT Sprain of left rotator cuff capsule, sub sequent encounter (Primary Dx); Rehabilitation [address] [address] Other postp rocedural status(V45.89) Services [place] [address] [facility] [address] [place] [address] [place] [address] [address] [address] [place] [address] (Work) [phone] Social History Tobacco Use Types Packs/Day Years Used Date Smoking Tobacco: Never Assessed Sex Assigned at Date Recorded Not on file documented as of this encounter Plan of Treatment Not on filedocumented as of this encounter Procedures Procedure Name Priority Date/Time Associated Diagnosis Comme nts [facility] NEUROMUSCULAR Routine 07/04/2015 2:00 PM Sprain of left ro tator RE-EDUCATION CDT cuff capsule, subsequent encounter Other postprocedural status(V45.89) [facility] THERAPEUTIC Routine 07/04/2015 2:00 PM Sprain of left rota tor EXERCISES CDT cuff capsule, subsequent encounter Other postprocedural status(V45.89) documented in this encounter Visit Diagnoses Diagnosis Sprain of left rotator cuff capsule, sub sequent encounter - Primary Other postprocedural status(V45.89) Other postprocedural status documented in this encounter Care Teams Hooker Machine Tender Relationship Specialty Start Date End Date Idalmis Sloan PCP - General Family Practice 11/04/13 documented as of this encounter
--- OUTSIDE RECORDS SUMMARY | 2022-02-05 15:15 | XMS_ITS | Encounter Summary ---
:1950 Author Organization [place] Address [facility] [place] [address] Care Team Providers Name Role Phone Idalmis Sloan Primary Care Provider Encounter Details Date Type Department Care Team Description 08/24/2014 Therapy Visit [facility] Belén Alva, [facility] low back pain Rehabilitation Services MATERIAL MAN with right-sided [place] [facility] ([facility] [address] [facility] [address] [place] [address] Social History Tobacco Use Types Packs/Day Years Used Date Smoking Tobacco: Never Assessed Sex Assigned at Date Recorded Not on file documented as of this encounter Progress Notes Belén Alva, MATERIAL MAN - 09/20/2014 12:54 PM CDT Subjective: HPI [...] documented in this encounter Care Teams Financial Systems Manager Relationship Specialty Start Date End Date Idalmis Sloan PCP - General Family Practice 11/04/13 documented as of this encounter
--- OUTSIDE RECORDS SUMMARY | 2022-02-05 15:15 | XMS_ITS | Encounter Summary ---
:1950 Author Organization [place] Address [address] [place] [address] Care Team Providers Name Role Phone Idalmis Sloan Primary Care Provider Encounter Details Date Type Department Care Team Description 11/22/2015 Therapy Visit [facility] Sandra Shelton, Sprain of left rotator cuff capsule, subsequent encounter (Primary Dx); Rehabilitation ATC Other postprocedural status(V45.89) Services [facility] Specialty Care [facility] [id number] [place] [id number] [place] [address] [address] [place] [address] [phone] Social History Tobacco Use Types Packs/Day Years Used Date Smoking Tobacco: Never Assessed Sex Assigned at Date Recorded Not on file documented as of this encounter Plan of Treatment Not on filedocumented as of this encounter Procedures Procedure Name Priority Date/Time Associated Diagnosis Comme nts [facility] NEUROMUSCULAR Routine 11/22/2015 4:54 PM Sprain of left ro tator RE-EDUCATION CDT cuff capsule, subsequent encounter Other postprocedural status(V45.89) [facility] THERAPEUTIC Routine 11/22/2015 4:54 PM [...] documented in this encounter Care Teams Head Librarian Relationship Specialty Start Date End Date Idalmis Sloan PCP - General Family Practice 11/04/13 documented as of this encounter
--- OUTSIDE RECORDS SUMMARY | 2022-02-05 15:15 | XMS_ITS | Encounter Summary ---
:1950 Author Organization [place] Address [address] [place] [address]. [place] [address] Care Team Providers Name Role Phone Idalmis Sloan Primary Care Provider Reason for Visit KIMBER Physical Therapy (Routine) - Denied Specialty Diagnoses / Procedures Referred By Contact Refer red To Contact Physical Therapy Diagnoses >4 s/p L rot tiff / mehdi lorenzana @ ortho / BCBS 30 visits per year Mehdi Gaffney MD Judd, Laurie, PT Procedures [facility] AND [id number] [place] [address] [facility] [address] [place] [address] Referral ID Status Reason Start Date Expiration Date Visits V isits Requested Authorized KIMBER/WC/PT/L Denied 06/11/2015 06/10/2016 14 0 SHLDR POST [id number] Encounter Details Date Type Department Care Team Description 06/21/2015 [facility], Sprain of left rotator cuff capsule, subsequent encounter (Primary Dx); Rehabilitation Services CORRINA Melissa Otnatacha r postprocedural status(V45.89) [facility] [address] [place] [address] [place] [address] Social History Tobacco Use Types [...] Associated Diagnosis Comme nts [facility] THERAPEUTIC Routine 06/22/2015 10:17 AM Sprain of left rot ator EXERCISES CDT cuff capsule, subsequent encounter Other postprocedural status(V45.89) [facility] HOT OR COLD PACKS Routine 06/22/2015 10:17 AM Sprain of le ft rotator THERAPY CDT cuff capsule, subsequent encounter Other postprocedural status(V45.89) documented in this encounter Visit Diagnoses Diagnosis Sprain of left rotator cuff capsule, sub sequent encounter - Primary Other postprocedural status(V45.89) Other postprocedural status documented in this encounter Care Teams Metal Patternmaker Relationship Specialty Start Date End Date Idalmis Sloan PCP - General Family Practice 11/04/13 documented as of this encounter
--- OUTSIDE RECORDS SUMMARY | 2022-02-05 15:15 | XMS_ITS | Encounter Summary ---
:1950 Author Organization [place] Address [address] [facility] [place] [address] Care Team Providers Name Role Phone Shanta Sloan Primary Care Provider Encounter Details Date Type Department Care Team Description 11/22/2014 Therapy Visit [facility] Belén Alva, Fidelia dontrell pain Rehabilitation Services ENVIRONMENTAL PROGRAMS MANAGER (Apoorva shanta Dx) [facility] [address] [facility] [address] [place] [address] Social History Tobacco Use Types [...] and time spent performing 1:1 timed codes. RAL ACCOUNTING CLERK documented in this encounter Miscellaneous Notes Addendum Note - Micki Chang, PT - 01/30/2015 3:46 PM GENERAL ACCOUNTING CLERK Addended by: MICKI CHANG on: 01/30/2015 03:46 PM Modules accepted: Orders RAL ACCOUNTING CLERK documented in this encounter Plan of [...] region documented in this encounter Care Teams Accounts Payable Clerk Relationship Specialty Start Date End Date Shanta Sloan PCP - General Family Practice 11/04/13 documented as of this encounter
--- OUTSIDE RECORDS SUMMARY | 2022-02-05 15:15 | XMS_ITS | Encounter Summary ---
:1950 Author Organization [place] Address [facility] [place] [address] Care Team Providers Name Role Phone Idalmis Sloan Primary Care Provider Encounter Details Date Type Department Care Team Description [facility]/12[facility]2015 [facility] Other postprocedural status(V45.89); Rehabilitation [address] [place] Sprain of l eft rotator cuff capsule, subsequent encounter Services [place] [address] [place] [address] [address] [address] [place] [address] (Work) [phone] Social History Tobacco Use Types Packs/Day Years [...] abd), MMT: L ER=3-/5, flex=3-/5, Abd=3-/5, PROM: xhfg=688, joint creptation noted with painful movement, Rtq=560, ER=45 ASSESSMENT/PLAN Updated problem list and treatment [...] Diagnosis Comme nts [facility] NEUROMUSCULAR Routine 11/12/2015 3:40 PM Other postprocedu ral RE-EDUCATION CDT status(V45.89) Sprain of left rotator cuff capsule, subsequent encounter [facility] THERAPEUTIC Routine 11/12/2015 3:40 PM Other postprocedura l EXERCISES CDT status(V45.89) Sprain of left rotator cuff capsule, subsequent encounter documented in this encounter Visit Diagnoses Diagnosis Other postprocedural status(V45.89) Other postprocedural status Sprain of left rotator cuff capsule, sub sequent encounter documented in this encounter Care Teams Freight Checker Relationship Specialty Start Date End Date Idalmis Sloan PCP - General Family Practice 11/04/13 documented as of this encounter
--- OUTSIDE RECORDS SUMMARY | 2022-02-05 15:16 | XMS_ITS | Encounter Summary ---
:1950 Author Organization [place] Address [address] [facility] [place] [address] Care Team Providers Name Role Phone Unavailable Primary Care Provider Unavailable Encounter Details Date Type Department Care Team Description 08/25/2010 Discharge Summary [facility] Krysta, (Scrap Materials Buyer) [facility] VIELKA Isabel Results [facility] [address] [id number] Social History Tobacco Use Types Packs/Day Years Used Date Smoking Tobacco: Never Assessed Sex Assigned at Date Recorded Not on file documented as of this encounter Progress Notes Samia Chpaarro PA-C - 08/30/2010 5:43 AM CDT FINAL [...] PA-C MT: [id number] Name: KRYS MOSHER Account: [id number] : 1950 Admit Date: Discharge Date: 08/25/2010 Document: [id number] documented in this encounter Plan of Treatment Not on filedocumented as of this encounter Visit Diagnoses Not on filedocumented in this encounter
--- OUTSIDE RECORDS SUMMARY | 2022-02-05 15:16 | XMS_ITS | Encounter Summary ---
:1950 Author Organization [place] Address [address] [place] [address]. [place] [address] Care Team Providers Name Role Phone Unavailable Primary Care Provider Unavailable Encounter Details Date Type Department Care Team Description 08/21/2010 Hospital Laboratory [facility], [facility] Results MD Dipti [facility] [address] [facility] [address] [place] [address] (Wo rk) Social History Tobacco [...] Patho logist Time Signature ABO A [facility] RH(D) Pos [facility] Antibody Neg [facility] LAB Specimen 08/24/2010 [facility] LAB Specimen Anatomical Collection Method Collection Time Receive d Time (Source) Location / / Volume Laterality 08/21/2010 6:15 AM 1 6:17 CDT AM CDT Jose Comer MD LAB - BLOOD BANK TEST ORDER Performing Organization Address City/State/ZIP Code Phon e Number M [facility] [address] [place], [place] [address] documented in this encounter Visit Diagnoses Not on filedocumented in this encounter
--- OUTSIDE RECORDS SUMMARY | 2022-02-05 15:16 | XMS_ITS | Encounter Summary ---
:1950 Author Organization [place] Address [facility] [place] [address] Care Team Providers Name Role Phone Unavailable Primary Care Provider Unavailable Encounter Details Date Type Department Care Team Description 08/16/2010 Historic Notes INTERFACED REPORT Interface, Transcript onMD Social History Tobacco Use Types Packs/Day Years Used Date Smoking Tobacco: Never Assessed Sex Assigned at Date Recorded Not on file documented as of this encounter Progress Notes Interface, Brass Wind Instruments Tube Bender - 12/02/2010 7:47 PM CDT General Information - How to be Addressed [place] - Source of Information patient - Patient Belongings clothing; glasses; walker and cane - agricultural equipment salesperson #1: Sachin - Relationship to patient #1: - Phone 1: [phone] - agricultural equipment salesperson #2: Sabiha Burgess - Relationship to sister patient #2: - Phone 1: [phone] - Patient's spoken language; Upper Sorbian or Bilingual communication style Advance Directive - Do you have an Yes Advanced Health Care Directive? - Directive Location: Copy in Chart - Validation of Advance Reviewed and valid, Chaplain Rsoario Prado [facility] Directive:(Pt 18+ & document is [...] abuse, self neglect, lack of adequate food, retirement, medical care, or financial exploitation)? Values/Beliefs/Spiritual Care - C: Community: In hospital dairy nutrition consultant support of your spiritual health, is there someone we may contact for you? (identify all that apply) Learning Assessment - Factors Influencing no factors identified Readiness to Learn - Factors that Impact none Ability to Learn - Learning Preferences skill demonstration; written material - Cultural none Considerations - Developmental none Considerations - Methodist none Considerations Mutuality/Individual Preferences - What information none would help us give you more personalized care? Signatures KAYLEIGH MAX (RN)[Signed 15:03] Authored: General Information, Skin Inspection, Coping Stress/Abuse Rosario Prado (Wraparound Facilitator)[Signed 17:38] Authored: Advance Directive JOSE BROWN (RN)[Signed [...]
--- OUTSIDE RECORDS SUMMARY | 2022-02-05 15:16 | XMS_ITS | Encounter Summary ---
:1950 Author Organization [place] Address [address] [place] [address] Care Team Providers Name Role Phone Unavailable [...] Waleska Alcaraz - 03/21/2012 7:37 PM CST [place] [facility] Triage Call Report Patient Name: Krys Mosher Call Date & Time: 03/21/2012 11:00:19AM Patient PCP Name: Idalmis Sloan MRN: Patient Address: [address] [address] Patient Date of : 1950 Age: 61 yr. Patient Gender: Female Showroom Executive Director Name: Idalmis Bolaños Presenting Problem: Krys has [...] Procedure Note: .Other right foot surgery 2006 MAN documented in this encounter Plan of Treatment Not on filedocumented as of this encounter Visit Diagnoses Not on filedocumented in this encounter
--- OUTSIDE RECORDS SUMMARY | 2022-02-05 15:16 | XMS_ITS | Encounter Summary ---
:1950 Author Organization [place] Address [address] [facility] [place] [address] Care Team Providers Name Role Phone Idalmis Sloan Primary Care Provider Encounter Details Date Type Department Care Team Description 07/20/2014 Therapy Visit [facility] Cherelle Santana Midli ne low back Rehabilitation Services PT pain with [place] [facility] right- sided sciatica Care Center MEDICINE (Primary Dx) [address] [place] [address] [place], [place] [phone] [address] Social History Tobacco Use [...] pain throughout movement Rotation: Left: Right: Side [place]: Left: Right: Strength: Abdominals 1/5 Lumbar Myotomes: [...] Sheet for this information) Short term and long-term goals: (See Goal Flow Sheet for this [...] Comme nts [facility] THERAPEUTIC Routine 07/25/2014 12:32 PM Midline Low Back P ain ACTIVITIES CDT With Right-Sided Sciatica [facility] THERAPEUTIC Routine 07/25/2014 12:32 PM Midline low back p ain EXERCISES CDT with right-sided sciatica documented in this encounter Visit Diagnoses Diagnosis Midline low back pain with right-sided s ciatica - Primary documented in this encounter Care Teams It Communications Specialist Relationship Specialty Start Date End Date Idalmis Sloan PCP - General Family Practice 11/04/13 documented as of this encounter
--- OUTSIDE RECORDS SUMMARY | 2022-02-05 15:16 | XMS_ITS | Encounter Summary ---
:1950 Author Organization [place] Address [address] [facility] [place] [address] Care Team Providers Name Role Phone Idalmis Sloan Primary Care Provider Encounter Details Date Type Department Care Team Description 11/04/2013 Hospital Encounter [facility] Jermaine Paz Ulceration (H) [facility] MD Chuck [address] [place], [place] ORTHOPEDICS [id number] [phone] [place] [address] (Wo rk) Social History Tobacco [...] site documented in this encounter Care Teams Learning Program Manager Relationship Specialty Start Date End Date Idalmis Sloan PCP - General Family Practice 11/04/13 documented as of this encounter
--- OUTSIDE RECORDS SUMMARY | 2022-02-05 15:16 | XMS_ITS | Encounter Summary ---
:1950 Author Organization [place] Address [address] [place] [address] Care Team Providers Name Role Phone Unavailable Primary Care Provider Unavailable Encounter Details Date Type Department Care Team Description 08/26/2010 Historic Notes INTERFACED REPORT Interface, Transcript MD colby Social History Tobacco Use Types Packs/Day Years Used Date Smoking Tobacco: Never Assessed Sex Assigned at Date Recorded Not on file documented as of this encounter Progress Notes Interface, Pt Skilled - 12/02/2010 7:32 PM CDT Discharge Summary [...]
--- OUTSIDE RECORDS SUMMARY | 2022-02-05 15:16 | XMS_ITS | Encounter Summary ---
:1950 Author Organization [place] Address [facility] [place] [address] Care Team Providers Name Role Phone Unavailable Primary Care Provider Unavailable Encounter Details Date Type Department Care Team Description 08/22/2010 Hospital Laboratory [facility] Results Carlos simmons PA-C [facility] [address] [address] (Wo rk) Social History Tobacco Use Types [...] Signature Hemoglobin 10.4 (L) 11.7 - 15.7 [place] g/dL [facility] Specimen Anatomical Collection Method Collection Time Receive d Time (Source) Location / / Volume Laterality 08/22/2010 7:55 AM 1 7:58 CDT AM CDT Maame Chaparro PA-C LAB - BLOOD ORDERABLES Performing Organization Address City/State/ZIP Code Phon e Number [facility] [address] [place] [address] [facility] (ABNORMAL) Basic metabolic panel (08/22/2010 7:55 AM CDT) P athologist Signature Sodium 138 133 - 144 [place] mmol/L [facility] Potassium 4.2 3.4 - 5.3 [place] mmol/L [facility] Chloride 107 94 - 109 [place] mmol/L [facility] Carbon Dioxide 24 20 - 32 [place] mmol/L [facility] Anion Gap 8 6 - 17 [place] mmol/L [facility] Glucose 112 (H) 60 - 99 [place] mg/dL [facility] Urea Nitrogen 10 7 - 30 [place] mg/dL [facility] Creatinine 0.74 0.52 - [facility] 1.[facility] mg/dL [facility] GFR Estimate 80 >60 [place] mL/min/[address] [place] [address] LAB GFR Estimate If >90 >60 [place] Black mL/min/[address] [place] [address] LAB Calcium 7.7 (L) 8.5 - 10.4 [place] mg/dL [facility] Specimen Anatomical Collection Method Collection Time Receive d Time (Source) Location / / Volume Laterality 08/22/2010 7:55 AM 1 7:58 CDT AM CDT Maame Chaparro PA-C LAB - BLOOD ORDERABLES Performing Organization Address City/State/ZIP Code Phon e Number [place] [address] [place], [place] [address] [facility] documented in this encounter Visit Diagnoses Not on filedocumented in this encounter
--- OUTSIDE RECORDS SUMMARY | 2022-02-05 15:16 | XMS_ITS | Encounter Summary ---
:1950 Author Organization [place] Address [facility] [place] [address] Care Team Providers Name Role Phone Unavailable Primary Care Provider Unavailable Encounter Details Date Type Department Care Team Description 08/23/2010 Hospital Laboratory [facility] Results Carlos simmons PA-C [facility] [address] [address] (Wo rk) Social History Tobacco Use Types [...] Signature Hemoglobin 10.4 (L) 11.7 - 15.7 [place] g/dL [facility] Specimen Anatomical Collection Method Collection Time Receive d Time (Source) Location / / Volume Laterality 08/23/2010 7:30 AM 1 7:38 CDT AM CDT Maame Chaparro PA-C LAB - BLOOD ORDERABLES Performing Organization Address City/State/ZIP Code Phon e Number [facility] [address] [place], [place] [address] [facility] (ABNORMAL) Basic metabolic panel (08/23/2010 7:30 AM CDT) P athologist Signature Sodium 138 133 - 144 [place] mmol/L [facility] Potassium 4.1 3.4 - 5.3 [place] mmol/L [facility] Chloride 108 94 - 109 [place] mmol/L [facility] Carbon Dioxide 26 20 - 32 [place] mmol/L [facility] Anion Gap 4 (L) 6 - 17 [place] mmol/L [facility] Glucose 101 (H) 60 - 99 [place] mg/dL [facility] Urea Nitrogen 7 7 - 30 [place] mg/dL [facility] Creatinine 0.69 0.52 - [facility] 1.[facility] mg/dL [facility] GFR Estimate 87 >60 [place] mL/min/[address] [place] [address] LAB GFR Estimate If >90 >60 [place] Black mL/min/[address] [place] [address] LAB Calcium 8.3 (L) 8.5 - 10.4 [place] mg/dL [facility] Specimen Anatomical Collection Method Collection Time Receive d Time (Source) Location / / Volume Laterality 08/23/2010 7:30 AM 1 7:38 CDT AM CDT Maame Chaparro PA-C LAB - BLOOD ORDERABLES Performing Organization Address City/State/ZIP Code Phon e Number [facility] [address] [place], [place] [address] [facility] documented in this encounter Visit Diagnoses Not on filedocumented in this encounter
--- OUTSIDE RECORDS SUMMARY | 2022-02-05 15:16 | XMS_ITS | Encounter Summary ---
:1950 Author Organization [place] Address [facility] [place] [address] Care Team Providers Name Role Phone Idalmis Sloan Primary Care Provider Encounter Details Date Type Department Care Team Description 08/10/2014 Therapy Visit [facility] [place], Midline low back pain Rehabilitation Services OPENER with right-sided [place] [facility] sc iatica (Primary Dx) Center [address] [facility] [address] [place] [address] Social History Tobacco Use Types [...] Primary documented in this encounter Care Teams Chemical Research Technician Relationship Specialty Start Date End Date Idalmis Sloan PCP - General Family Practice 11/04/13 documented as of this encounter
--- OUTSIDE RECORDS SUMMARY | 2022-02-05 15:16 | XMS_ITS | Encounter Summary ---
:1950 Author Organization [place] Address [facility] [place] [address] Care Team Providers Name Role Phone Unavailable Primary Care Provider Unavailable Encounter Details Date Type Department Care Team Description 08/25/2010 Historic Notes INTERFACED REPORT Interface, Transcript onMD Social History Tobacco Use Types Packs/Day Years Used Date Smoking Tobacco: Never Assessed Sex Assigned at Date Recorded Not on file documented as of this encounter Progress Notes Interface, Orthophotography Technician - 12/02/2010 7:33 PM CDT Discharge Summary - Reason for Discharge Discharge from facility - Progress toward Goals partially met achieving short term goals/bed bug exterminator goals - Barriers to achieving Limited tolerance [...]
--- OUTSIDE RECORDS SUMMARY | 2022-02-05 15:16 | XMS_ITS | Encounter Summary ---
:1950 Author Organization [place] Address [address] [place] [address] Care Team Providers Name Role Phone NathaliaIdalmisVijaya Primary Care Provider Encounter Details Date Type Department Care Team Description 11/13/2013 Telephone [facility] Nurse Idalmis Sloan Advisors [facility] [address] [facility] Dri ve [address] [place] [address] [place] [address] [phone] (Wo rk) Social History Tobacco Use Types [...] better.I know an abx would help.Who is repairer engine production? Advised to be seen.Page sent to MD per pt.Md advised to be seen in am. Pt stated she will go to the [facility]. # [phone] Triage Note: Guideline Title: Cough - Adult [...] air. Be sure to clean according to mold sprayer's instructions. Limit activities and increase periods of [...] on filedocumented in this encounter Care Teams Asphalt Tamping Machine Operator Relationship Specialty Start Date End Date Idalmis Sloan PCP - General Family Practice 11/04/13 documented as of this encounter
--- OUTSIDE RECORDS SUMMARY | 2022-02-05 15:16 | XMS_ITS | Encounter Summary ---
:1950 Author Organization [place] Address [facility] [place] [address] Care Team Providers Name Role Phone Unavailable Primary Care Provider Unavailable Encounter Details Date Type Department Care Team Description 08/21/2010 Consultation [facility] Idalmis Schwab, Hospital Results RN [facility] [address] [place], [place] [address] (Wo rk) Social History [...] same nurse practitioner, Sherry Arambula of the [facility]. It does not [...] a pain clinic and that would be [facility] that is located in [place]. 3. Esophageal reflux. 4. Tobacco use. 5. [...] 100 mg b.i.d. She is on a PSYCHOLOGY LECTURER Dilaudid. She can have 0.1-0.2 q.6minutes with a continuous rate of 0.1-0.2 for an hour limit of 1.5. She has not taken any other medswhile here. REVIEW OF SYSTEMS: Please see the [facility] adult patient profile done by Amanda [...] but does have pain meds ordered per PSYCHOLOGY LECTURER. Patient having somatosensory-type of inflammatory pain postop. PLAN: 1. We will leave PSYCHOLOGY LECTURER as it was written for. Patient is [...] CARROLL Name: KRYS MOSHER MRN: [id number] Account: [id number] : 1950 Consult Date: 08/21/2010 Document: [id number] cc: SAIMA MCHUGH PA-C documented in this encounter Plan of Treatment Not on filedocumented as of this encounter Visit Diagnoses Not on filedocumented in this encounter
--- OUTSIDE RECORDS SUMMARY | 2022-02-05 15:16 | XMS_ITS | Encounter Summary ---
:1950 Author Organization [place] Address [facility] [address] Care Team Providers Name Role Phone Unavailable Primary Care Provider Unavailable Encounter Details Date Type Department Care Team Description 08/22/2010 Historic Notes INTERFACED REPORT Israel Schwab RN [facility] [address] [place], [place] [address] (Wo rk) Social History [...] was around 8/10. She feels that the APPRAISAL TECHNICIAN with the vistaril and tylenol are a [...] one 50 mg dose this AM) Dilaudid APPRAISAL TECHNICIAN 0.1-0.2 Q 6 min with CR of [...] with current interventions. Plan: 1. Will keep APPRAISAL TECHNICIAN as it is, since she is doing [...] and coordination of care. Signatures ISRAEL SCHWAB (FIBERGLASS INSULATION INSTALLER)[Signed 09:46] Authored: Interval History/Chief Complaint, Review of Systems, Physical Exam, Vital Signs/Labs/Imaging/Culture Review, Pain Score and Medications, Assessment and Plan documented in this encounter Plan of Treatment Not on filedocumented as of this encounter Visit Diagnoses Not on filedocumented in this encounter
--- OUTSIDE RECORDS SUMMARY | 2022-02-05 15:16 | XMS_ITS | Encounter Summary ---
:1950 Author Organization [place] Address [address] [facility] [place] [address] Care Team Providers Name Role Phone Unavailable Primary Care Provider Unavailable Encounter Details Date Type Department Care Team Description 08/21/[address] [facility] Jose Comer (Production Team Leader) [facility] MD Dipti Results [facility] [address] [facility] [address] [place] [address] Social History Tobacco Use Types [...] of pedicle screw mary fixation, L3-L4 (CD). 8.[place] of autogenous bone marrow, right ilium. SURGEON: Jose Comer MD CALENDERING SUPERVISOR: Bethany Chaparro PA-C, INDICATIONS FOR PROCEDURE: Krys [...] of L2 and L4 with a #1 [place], and then using a 4 mm [place] [...] of L2 and L4, using a #1 [place], and then with the help of a [...] The set nuts were torqued to the program development manager's specifications with a torque wrench. The [...] in good condition. Revised: , , Document: [id number], [id number] Electronically signed on 08/22/2010 06:48 by JOSE COMER MD MT: [email or web address] Name: KRYS MOSHER Account: [id number] : 1950 Procedure Date: 08/21/2010 Document: [id number] cc: Idalmis Sloan MD documented in this encounter Plan of Treatment Not on filedocumented as of this encounter Visit Diagnoses Not on filedocumented in this encounter
--- OUTSIDE RECORDS SUMMARY | 2022-02-05 15:16 | XMS_ITS | Encounter Summary ---
:1950 Author Organization [place] Address [facility] [place] [address] Care Team Providers Name Role Phone Unavailable Primary Care Provider Unavailable Encounter Details Date Type Department Care Team Description 08/22/2010 Historic Notes INTERFACED REPORT Interface, Transcript onMD Social History Tobacco Use Types Packs/Day Years Used Date Smoking Tobacco: Never Assessed Sex Assigned at Date Recorded Not on file documented as of this encounter Progress Notes Interface, Security Services Specialist - 12/02/2010 7:39 PM CDT Patient [...] Materials, and Instructions, Follow Up Care Interface, Security Services Specialist - 12/02/2010 7:39 PM CDT General [...] Mobility: Rolling/Turning - Level of stand-by assist [place]: Bed Mobility: Scooting/Bridging - Level of stand-by assist [place]: Bed Mobility: Sit to Supine - Level of stand-by assist [place]: Bed Mobility: Supine to Sit - Level of stand-by assist [place]: Bed Mobility Analysis - Impairments pain Contributing to Impaired Bed Mobility: Transfer: Sit to Stand - Level of CGA [place]: - Physical verbal cues; supervision Assist/Nonphysical Assist: Transfer: Stand to Sit - Level of stand-by assist [place]: Gait Skills - Level of minimum assist (75% patients effort) [place]: - Physical verbal cues Assist/Nonphysical Assist: - Assistive Device: CENTRIFUGE SEPARATOR TENDER and IV pole - Gait Distance: 20' to door and back Gait Analysis - Gait Pattern Used: swing-to gait - Gait Deviations decreased jeffery; decreased step length Noted: - Impairments pain Contributing to Gait Deviations: Balance Skills Assessment - Sitting Balance: independent Static: - Sitting Balance: independent Dynamic: - Qhf-zd-Blust Balance: minimum assist (75% patients effort) - [...] - Anticipated Equipment elastic laces and a freight adjuster at Discharge: - Risks and Benefits of [...] Assessment, Sensation, Treatment Plan, Clinical Impression Interface, Security Services Specialist - 12/02/2010 7:38 PM CDT SH - Responded to referral per pt. request for emotional support. Pt. is recovering from back surgery, and she says it went very well, expresses gratitude for Dr. Comer's skill and the quality of care she has received from nursing staff. 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 Pt. is originally from [place], [place] where she was a member of [facility], has not found a new aisha home since moving to [place], [place] but says she attends chapel at [facility] occasionally. Pt.'s family have not been able to visit due to a wedding in [place], but said her should be back in time for discharge. Offered active listening, emotional support, prayed for comfort and healing and gave thanks for successful surgery. Will follow up if needs arise. [Signature] Author: MARY ELIAS (Trust And Estates Attorney Farmworker General) [Signed 10:25] documented in this encounter Plan of Treatment Not on filedocumented as of this encounter Visit Diagnoses Not on filedocumented in this encounter
--- OUTSIDE RECORDS SUMMARY | 2022-02-05 15:16 | XMS_ITS | Encounter Summary ---
:1950 Author Organization [place] Address [address] [place], [place] [address] Care Team Providers Name Role Phone Unavailable [...] Waleska Alcaraz - 08/02/2012 4:30 PM CDT [place] [facility] Triage Call Report Patient Name: Krys Mosher Call Date & Time: 07/31/2012 2:40:00PM Patient PCP Name: Idalmis Sloan Patient Address: [facility] [place] [address] Patient Date of : 1950 Age: 62 yr. Patient Gender: Female Ship Liner Name: Viji Aguilar Presenting Problem: Call FNA [...] Dr Severino Catalan to Pt 's phone [phone]. Allergies Cipro, augmentin , sulfa and Lorazepam. [facility] phone [phone]. Triage Note: Guideline Title: Infection On Antibiotic [...]
--- OUTSIDE RECORDS SUMMARY | 2022-02-05 15:16 | XMS_ITS | Encounter Summary ---
:1950 Author Organization [place] Address [address] [place], [place] [address] Care Team Providers Name Role Phone Unavailable [...] Waleska Alcaraz - 01/16/2012 7:49 PM CST [place] [facility] Triage Call Report Patient Name: Krys Mosher Call Date & Time: 07/18/2011 8:05:57PM Patient PCP Name: Idalmis Sloan MRN: Patient Address: [address] [place] [address] Patient Date of : 1950 Age: 61 yr. Patient Gender: Female Enterer Name: Viji Hyatt Presenting Problem: I have an infected little toe. Red, painful, swollen. Went to a foot doctor amonth ago who shaved off a callus and a few days ago little right toe started getting red; now looks infected she states. Refuses ER due to high deductible and insurance problems; and wants to see if MD medication coordinator would call in an ABX. Is allergic to : cipro possibly; sulfa and augmentin. Can take Keflex and levoquin she states. I called Dr. Chacon and he allowed me to call in an Rx Keflex po 500mg TID x7days. I called this into [facility] in [place]. This note will be faxed to [place] office; please ATTN: Dr. Sloan. Triage Note: [...] Procedure Note: .Other right foot surgery 2006 LANCE PHOTOGRAPHER documented in this encounter Plan of Treatment Not on filedocumented as of this encounter Visit Diagnoses Not on filedocumented in this encounter
--- OUTSIDE RECORDS SUMMARY | 2022-02-05 15:16 | XMS_ITS | Encounter Summary ---
:1950 Author Organization [place] Address [facility] [place] [address] Care Team Providers Name Role Phone Unavailable Primary Care Provider Unavailable Encounter Details Date Type Department Care Team Description 08/23/2010 Historic Notes INTERFACED REPORT Israel Schwab RN [facility] [address] [place], [place] [address] (Wo rk) Social History [...] been Management: getting the 50mg dose) Dilaudid QUALITY ASSURANCE CALIBRATOR 0.1-0.2 Q 6 min CR 0.1-0.2 mg [...] and coordination of care Signatures ISRAEL SCHWAB (CATARACT LENS GENERATOR)[Signed 14:10] Authored: Interval History/Chief Complaint, Review of Systems, Physical Exam, Vital Signs/Labs/Imaging/Culture Review, Pain Score and Medications, Assessment and Plan documented in this encounter Plan of Treatment Not on filedocumented as of this encounter Visit Diagnoses Not on filedocumented in this encounter
--- OUTSIDE RECORDS SUMMARY | 2022-02-05 15:16 | XMS_ITS | Encounter Summary ---
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
--- OUTSIDE RECORDS SUMMARY | 2022-02-05 15:16 | XMS_ITS | Encounter Summary ---
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
--- OUTSIDE RECORDS SUMMARY | 2022-02-05 15:16 | XMS_ITS | Encounter Summary ---
:1950 Author Organization [place] Address [facility] [place] [address] Care Team Providers Name Role Phone Unavailable Primary Care Provider Unavailable Encounter Details Date Type Department Care Team Description 08/23/2010 Historic Notes INTERFACED REPORT Interface, Transcript on, Social History Tobacco Use Types Packs/Day Years Used Date Smoking Tobacco: Never Assessed Sex Assigned at Date Recorded Not on file documented as of this encounter Progress Notes Interface, Underground Truck Operator - 12/02/2010 7:36 PM CDT General Information [...] Level of moderate assist (50% patients effort) Carlos: - Physical 1 person assist Assist/Nonphysical Assist: Bed Mobility: Sit to Supine - Level of moderate assist (50% patients effort) Carlos: - Physical 1 person assist Assist/Nonphysical Assist: Bed Mobility: Supine to Sit - Level of moderate assist (50% patients effort) Carlos: - Physical 1 person assist Assist/Nonphysical Assist: Bed Mobility Analysis - Impairments pain; post surgical precautions; decreased Contributing to strength Impaired Bed Mobility: Transfer: Sit to Stand - Level of minimum assist (75% patients effort) Carlos: - Physical 1 person assist Assist/Nonphysical Assist: Transfer: Stand to Sit - Level of minimum assist (75% patients effort) Carlos: - Physical 1 person assist Assist/Nonphysical Assist: Transfer: Sit/Stand Safety Analysis - Impairments pain; post surgical precautions; decreased Contributing to strength Impaired Transfers: Lower Body Dressing - Level of maximum assist (25% patients effort) Carlos: - Physical 1 person assist Assist/Nonphysical Assist: [...] therapy goals): - Demonstrates need for PT; YARD CONDUCTOR referral to another service: - Predicted Duration of 3-4 days Therapy: - Predicted Frequency daily of Therapy: - Discharge Rehabilitation facility; TCU versus home with Destination: assist pending progress - Anticipated Equipment [employer]; Dressing equipment at Discharge: - Risks and [...]
--- OUTSIDE RECORDS SUMMARY | 2022-02-05 15:16 | XMS_ITS | Encounter Summary ---
:1950 Author Organization [place] Address [address] [facility] [place] [address] Care Team Providers Name Role Phone Unavailable Primary Care Provider Unavailable Encounter Details Date Type Department Care Team Description 08/21/2010 Results Only [facility] Jose [place], Hospital Results [facility] [address] [place] [address] (Wo rk) Social History Tobacco [...]
--- OUTSIDE RECORDS SUMMARY | 2022-02-05 15:17 | XMS_ITS ---
:1950 Author Care Team Providers Name Role Phone Ed Travis Primary Care Provider Unavailable Allergies Code Code System Name Reaction Severity Status Onset 470343 RxNorm Augmentin ? ? Active ? 7052 [...] ? Specific 1.025 1.005-1.030 Final [facility]: Complete [place] [address], [place] ? ? URINE ? Ph 5.5 5.0-7.5 Final [facility]: [address], [place] ? ? URINE ? Urine-colo yellow yellow Final [facility]: r [address], [place] ? ? URINE ? Appearance clear clear Final [facility]: [address], [place] ? ? URINE ? WBC negative negative Final [facility]: Esterase [address], [place] ? ? URINE ABNOR Protein 1+ negative/tra Final [facility]: MAL ce [address], [place] ? ? URINE ? Glucose negative negative Final [facility]: [address], [place] ? ? URINE ABNOR Ketones trace negative Final [facility]: MAL [address], [place] ? ? URINE ? Occult negative negative Final [facility]: Blood [address], [place] ? ? URINE ? Bilirubin negative negative Final [facility]: [address], [place] ? ? URINE ? Urobilinog 0.2 0.2-1.0 Final [facility]: en,semi-qn mg/dL mg/dL [address], [place] ? ? URINE ? Nitrite, negative negative Final [facility]: Urine [address], [place] ? ? URINE ? Microscopi see ? Final [facility]: c below: [address], [place] ? ? URINE ? Wbc 0-5 /hpf 0 - 5 /hpf Final [facility]: [address], [place] ? ? URINE ? Rbc 0-2 /hpf 0 - 2 /hpf Final [facility]: [address], [place] ? ? URINE ? Epithelial 0-10 0 - 10 /hpf Final [facility]: Cells (Non /hpf [address], [place] ? ? URINE ? Epithelial adhesive sprayer ? Cancelle [facility]: Cells d [address], [place] ? ? URINE ? Casts adhesive sprayer ? Cancelle [facility]: d [address], [place] ? ? URINE ? Cast Type adhesive sprayer ? Cancelle [facility]: d [address], [place] ? ? URINE ABNOR Crystals present n/a Final [facility]: MAL [address], [place] ? ? URINE ? Crystal amorphou n/a Final [facility]: Type s [address], [place] ? ? URINE ? Mucus present not estab. Final [facility]: Threads [address], [place] ? ? URINE ? Bacteria few none Final [facility] : seen/few [address], [place] ? ? URINE ? Yeast adhesive sprayer ? Cancelle [facility]: d [address], [place] ? ? URINE ? Trichomona adhesive sprayer ? Cancelle [facility]: s d [address], [place] ? ? URINE ? Comment adhesive sprayer ? Cancelle [facility]: d [address], [place] ? ? URINE ? Microscopi adhesive sprayer ? [facility]anc[facility]: c d [address], [place] 07/16/2020 Culture, URINE ABNOR Urine final ? Final [facility] Urine MAL Culture, report ([facility] Routine ): [address] [facility], [place] ? ? URINE ABNOR Result 1 comment ? [facility] [address] [facility] [place] ? ? URINE ABNOR Result 2 serratia ? Final [facility] MAL beverly ([facility] ns ): [address] [facility] ? ? URINE ? Antimicrob comment ? Final [facility] ial ([facility] n Susceptibil ): [address] [facility] [place] Past Encounters None recorded. Social History Tobacco [...]
== END 2022-02-05 15:10 | disposition home or self-care (01) ==
LOC: WOUND 15:09
PROVIDERS: PCP Family Medicine; Visit Provider Surgery
DX: I73.9 Peripheral vascular disease, unspecified (principal); L97.522 Non-pressure chronic ulcer of other part of left foot with fat layer exposed; M14.60 Charcot's joint, unspecified site; L97.512 Non-pressure chronic ulcer of other part of right foot with fat layer exposed
CPT/HCPCS: 97597

== ENCOUNTER 2022-02-18 14:30 | Outpatient (CLI) | payer MEDICARE, SELFPAY ==
--- OUTSIDE RECORDS SUMMARY | 2022-02-18 14:32 | XMS_ITS | Continuity of Care Document ---
:1950 Author Organization [facility] Address [address] [facility] [place] [address] Care Team Providers Name Role Phone [facility] Unavailable Unavailable Procedures Procedure Date INTERLAMINAR CRV OR THRC Advance Directives Directive Yes / No Effective Date File Name No Information Encounters Encounter Practice Location Reason(s) Diagnoses Date Provider Provide rs Description For Visit Copied on Encounter [place] No [facility] Information [facility] Provider: Surgery Surgery Surgery [facility] [place]. [place], [address] [facility] [address] [facility] [place], [place], [place], [id number], [place], [address]. [id number], tel:[phone] US. [phone] tel:[phone] Family History Family Member Type Diagnosis Age At Onset No Information Payers Payer name Insurance type Covered democrat ID Authorization(s ) [facility] MedicareComplete Replacement 16 [id number] Social History Type Description Quantity Date Captured [...]
--- OUTSIDE RECORDS SUMMARY | 2022-02-18 14:33 | XMS_ITS | Continuity of Care Document ---
:1950 Author Organization [facility] Address [address] [address] Phone Care Team Providers Name Role Phone [...] Description For Visit Copied on Encounter OFFICE/OUTPAT [facility] low back Pain in right Pedro Specialist IENT VISIT, [facility] pain hipDrug induced [facility]. 7 235 : Rohith EST Pain [place] (chief constipationRhe [address] [facility] Olman Henderson, Clinic, complaint) umatoid [place].Refer ri [address] arthritisPain tracey CAMACHO, in left [id number], Provider: [place] shoulderPain in [place]. Faisal CAMACHO, left kneePain tel:[phone] Will J, [phone] in right ankle 37024 [address] , [place] and joints of [place], tel:+195 right footOther Minnea chiqui [id number] spondylosis, [place], [place], cervical [address] regionOther . spondylosis, tel:+272 lumbar [phone] regionRadiculop athy, cervical regionPostlamin ectomy syndrome, not elsewhere classifiedLong term (current) use of opiate analgesic [facility] No Information Jaspreet Malone. [facility] [address] Pain [place] 2 [place], [facility], [place], [address] [place] CAMACHO, [id number], [place], [place]. [place], tel:[phone] [phone] , [place] tel:+ [phone] OFFICE/OUTPAT [facility] low back Pain in left Nov-1 [facility] Specialist IENT VISIT, [facility] pain kneeRheumatoid 1 [facility]. 72 35 : Rohith EST Pain [place] (chief arthritisDrug 2 [address] Hien Henderson , Clinic, complaint) induced [place].Refer ri [address] constipationPai [place], tracey Henderson, n in left [id number], Provider: [place], shoulderPain in [place]. Faisal [place], right hipPain tel: Will J, [phone] in right ankle 62557 [address] , [place] and joints of [place], tel:+ right footOther Minnea chiqui [id number] spondylosis, [place], [place], cervical [address] regionOther . spondylosis, tel:+2 lumbar [phone] regionRadiculop athy, cervical regionPostlamin ectomy syndrome, not elsewhere classifiedLong term (current) use of opiate analgesic OFFICE/OUTPAT [facility] low back Drug induced Oct-0 Pedro Specialist IENT VISIT, [facility] pain constipationRhe [facility]. 7 235 : Rohith EST Pain [place] (chief umatoid 2 [address] Hien [place], Clinic, complaint) arthritisPain [place], [place] .Referri [address] in left [place], tracey Henderson, shoulderPain in [id number], Provi fredy: [place], right hipPain [place]. Faisal [place], in left tel: Will [place], [phone] [place] [address] [address] , [place] right ankle and [place], tel:+ joints of right Minnea chiqui [phone] footOther s, [place], spondylosis, [address] cervical . regionOther tel:+952 spondylosis, 1467302 lumbar regionRadiculop athy, cervical regionPostlamin ectomy syndrome, not elsewhere classifiedLong term (current) use of opiate analgesic OFFICE/OUTPAT [facility] low back Drug induced Sep-0 Pedro Specialist IENT VISIT, [facility] pain constipationRhe [facility]. 7 235 : Rohith EST Pain [place] (chief umatoid 2 [address] Hien Henderson, Clinic, complaint) arthritisPain [place], [place] .Referri [address] in right [place], ng [place], hipPain in left [id number], Provi fredy: [place], shoulderPain in [place]. Faisal [place], left kneePain tel:[phone] Will J, [phone] in right ankle 34015 [address] , [place] and joints of [place], tel: right footOther Minnea chiqui [id number] spondylosis, [place], [place], cervical [address] regionOther . spondylosis, tel:+ lumbar [phone] regionRadiculop athy, cervical regionPostlamin ectomy syndrome, not elsewhere classifiedLong term (current) use of opiate analgesicEncoun ter for therapeutic drug level monitoring [facility] No Information Sep-0 [facility] Refer [facility] 7235 Provider : Pain [place] [address] Faisal Henderson [facility], [place], Jaspreet Calderón, [address] [facility], [address] [place], [id number], [place], [place]. [place], tel:+[phone] s, [place], [phone] 6[address] , [place] . tel: tel:+ [phone] [facility] lumbago Postlaminectomy Dulen Refe [facility] (chief syndrome, not 0-202 Lois. Prov ider: Pain [place] complaint) elsewhere 2 [facility] classified [facility]aspreet Henderson, [address] [facility] [address] [place], DOUG, [place], [place], [id number], [place], [place]. s, [place], [id number] tel:[phone] , [place] [address] . tel: tel:+ [phone] OFFICE/OUTPAT [facility] low back Pain in left Pedro Specialist IENT VISIT, [facility] pain kneeDrug 0- [facility]. 7235 : R oy EST Pain [place] (chief induced 2 [address] Hien Henderson, Clinic, complaint) constipationRhe [facility] [place].Referri [address] umatoid [place], tracey Henderson, arthritisPain [id number], Provide r: [place], in left [place]. Faisal CAMACHO, shoulderPain in tel:[phone] Arnold l J, [phone] right hipPain 92460 [address] s , [place] in right ankle [place], tel:+95 and joints of [place] [phone] right footOther s, [place], spondylosis, [address] cervical . regionOther tel:+952 spondylosis, 3508809 lumbar regionRadiculop athy, cervical regionPostlamin ectomy syndrome, not elsewhere classifiedLong term (current) use of opiate analgesic OFFICE/OUTPAT [facility] low back Drug induced Pedro Specialist IENT VISIT, [facility] pain constipatione [facility]. 7 235 : Rohith EST Pain [place] (chief umatoid [address] [place] [facility] [facility], complaint) [place], [place] .Referri [address] in left DOUG, tracey Henderson, shoulderPain in [id number], Provi fredy: [place], right hipPain [place]. Faisal CAMACHO, in left tel:[phone] Will J, [phone] [place] [address] [address] , [place] right ankle and [place], tel:+95 joints of right Minnea chiqui [phone] footOther s, [place], spondylosis, [address] cervical . regionOther tel:+952 spondylosis, 2350493 lumbar regionRadiculop athy, cervical regionPostlamin ectomy syndrome, not elsewhere classifiedLong term (current) use of opiate analgesic OFFICE/OUTPAT [facility] low back Drug induced Jul- Pedro Specialist IENT VISIT, [facility] pain constipationRhe [facility]. 7 235 : Rohith EST Pain [place] (chief umatoid [address] [place] [facility] [facility], complaint) [place], [place] .Referri [address] in left DOUG, tracey Henderson, shoulderPain in [id number], Provi fredy: [place], right hipPain [place]. Faisal CAMACHO, in left tel:[phone] Will J, [phone] [place] [address] [address] , [place] right ankle and [place], tel: joints of right Minnea chiqui [phone] footOther s, [place], spondylosis, [address] cervical . regionOther tel: spondylosis, 0291171 lumbar regionRadiculop athy, cervical regionPostlamin ectomy syndrome, not elsewhere classifiedLong term (current) use of opiate analgesic [facility] Radiculopathy, Esha Pulido. Referring [facility] cervical region [address] Provid er: Pain Center 2 Faisal Henderson [facility], [place], Will J, [address] [place], [address] [place], [id number], [place], [place], [place]. [place], tel:284 s, [place], [phone] [address] , [place] . tel: tel: [phone] OFFICE/OUTPAT [facility] low back Pain in left [facility] Specialist IENT VISIT, [facility] Pain [facility] pain kneeRheumatoid [facility]. 72 35 : Rohith EST Pain [place] (chief arthritisPain 2 [address] Hien Henderson , [facility], complaint) in left [place], [place].Refer ri [address] shoulderPain in [place], ng [place], right hipPain [id number], Provide r: [place], in right ankle [place]. Faisal [place], and joints of tel: Will J, [phone] right footOther 27131 [address] [facility] [place] spondylosis, [place], tel: cervical [place] [phone] regionOther s, [place], spondylosis, [address] lumbar . regionPostlamin tel:[phone] ectomy [id number] syndrome, not elsewhere classifiedLong term (current) use of opiate analgesicRadicu lopathy, cervical regionDrug induced constipation OFFICE/OUTPAT [facility] low back Pain in left [facility] Specialist IENT VISIT, [facility] pain shoulderPain in [facility]. 7 235 : Rohith EST Pain [place] (chief right 2 [address] Hien Henderson, Clinic, complaint) hipRheumatoid [place] .Referri [address] arthritisPain DOUG, tracey Henderson, in left [id number], Provider: [place], kneePain in [place]. Faisal [place], right ankle and tel: Arnold l J, [phone] joints of right 83468 [address] [facility] [place] footOther [place], tel: spondylosis, [place] [phone] cervical s, [place], regionOther [address] spondylosis, . lumbar tel: regionPostlamin 4228952 ectomy syndrome, not elsewhere classifiedLong term (current) use of opiate analgesicEncoun ter for therapeutic drug level monitoring OFFICE/OUTPAT [facility] low back Pain in left [facility] Specialist IENT VISIT, [facility] pain shoulderPain in [facility] 7 235 : Rohith EST Pain [place] (chief left kneePain 2 [address] Hien Henderson , Clinic, complaint) in right [place].Refe [place]ri [address] hipRheumatoid DOUG tracey Henderson, arthritisOther [id number], Provid er: [place], spondylosis, [place]. Faisal [place], lumbar tel: Will J, [phone] regionPostlamin 99736 [address] [facility] [place] ectomy [place], tel: syndrome, not [place] [phone] elsewhere s, [place], classifiedPain [address] in right ankle . and joints of tel: right footLong 5709557 term (current) use of opiate analgesicOther spondylosis, cervical regionEncounter for therapeutic drug level monitoring OFFICE/OUTPAT [facility] low back Pain in left Apr- Pedro Specialist IENT VISIT, [facility] pain shoulderPain in [facility]. 7 235 : Rohith EST Pain [place] (chief left kneePain 2 [address] Hien Henderson , Clinic, complaint) in right [place].Refe rri [address] hipCervicalgiaR tracey CAMACHO [place], heumatoid [id number], Provider: [place], arthritisOther [place]. Faisal [place], spondylosis, tel:4 Will J , [phone] lumbar 64928 [address] , [place] regionPostlamin [place], tel: ectomy [place] [phone] syndrome, not s, [place], elsewhere [address] classifiedPain . in right ankle tel: 2 and joints of 2012610 right footLong term (current) use of opiate analgesic OFFICE/OUTPAT [facility] low back Pain in left Pedro Specialist IENT VISIT, [facility] pain shoulderPain in [facility]. 7 235 : Rohith EST Pain [place] (chief left kneePain 2 [address] [place] Hien , Clinic, complaint) in right [place].Refe [place]ri [address] hipCervicalgiaR DOUG, tracey Henderson, heumatoid [id number], Provider: Jermaine Coleman . Faisal CAMACHO, spondylosis, tel: Will J , [phone] lumbar 89541 [address] , [place] regionPostlamin [place], tel: ectomy [place] 15831878 syndrome, not [place], [place], elsewhere [address] classifiedPain . in right ankle tel: 2 and joints of 3225150 right footLong term (current) use of opiate analgesic OFFICE/OUTPAT [facility] low back Other Pedro Speci alist IENT VISIT, [facility] pain spondylosis, [facility]. 7235 : Rohith EST Pain [place] (chief lumbar 1 [address] [place] Hien, Clinic, complaint) regionPostlamin [place], [place].Referri [address] ectomy [place], ng [place], syndrome, not [id number], Provide r: [place], elsewhere [place]. Faisal CAMACHO, classifiedPain tel: Will J, [phone] in right ankle 62025 [address] , [place] and joints of [place], tel: right footPain [place] [phone] in left [place], [place], [place] [address] left kneePain . in right tel:2 hipCervicalgiaR 8952549 heumatoid arthritisLong term (current) use of opiate analgesic OFFICE/OUTPAT [facility] low back Other [facility] Speci alist IENT VISIT, [facility] pain spondylosis, [facility]. 7235 : Rohith EST Pain [place] (chief lumbar 1 [address] [place] Hien, Clinic, complaint) regionPosamin [place], [place].Referri [address] ectomy [place], ng [place], syndrome, not [id number], Provide r: [place], elsewhere [place]. Faisal CAMACHO, classifiedPain tel:[phone] Will J, 488259579 in right ankle 66336 [address] , [place] and joints of [place], tel:+195 right footPain [place] [phone] in left [place], [place], [place] [address] left kneePain . in right tel:+952 hipCervicalgiaR 0129088 heumatoid arthritisLong term (current) use of opiate analgesic OFFICE/OUTNHT [facility] low back Other Pedro Speci alist IENT VISIT, [facility] pain spondylosis, [facility]. 7235 : Rohith EST Pain [place] (chief lumbar 1 [address] [place] Hien, Clinic, complaint) regionPostlCurrie, [place].Referri [address] ectomy [place], ng [place], syndrome, not [id number], Provide r: [place], elsewhere [place]. Faisal CAMACHO, classifiedPain tel:+4 Will J, [phone] in right ankle 70715 [address] , [place] and joints of [place], tel:+195 right footPain [place] 07880610 in left [place], [place], [place] [address] left kneePain . in right tel:+952 hipCervicalgiaL 1420506 meghan term (current) use of opiate analgesicEncoun ter for therapeutic drug level monitoringRheum atoid arthritis OFFICE/OUTPAT [facility] low back Other Oct- Pedro Speci alist IENT VISIT, [facility] pain spondylosis, [facility]. 7235 : Rohith EST Pain [place] (chief lumbar 1 [address] [place] Hien, Clinic, complaint) regionPosW[place], [place].Referri [address] ectomy [place], ng [place], syndrome, not [id number], Provide r: [place], elsewhere [place]. Faisal CAMACHO, classifiedPain tel:[phone] Will J, [phone] in right ankle 43415 [address] , [place] and joints of [place], tel:+ right footPain [place] [phone] in left [place], [place], [place] [address] 48 left kneePain . in right tel: hipCervicalgiaL 2701147 meghan term (current) use of opiate analgesic OFFICE/OUTPAT [facility] low back Other [facility] Speci ali IENT VISIT, [facility] pain spondylosis, [facility] 7235 : Rohith EST Pain [place] (chief lumbar 1 [address] Hien Henderson, Clinic, complaint) regionPosWrightwood, [place].Referri [address] ectomy [place], ng [place], syndrome, not [id number], Provide r: [place], elsewhere [place]. Faisal CAMACHO, classifiedPain tel: Will J, [phone] in right ankle 25460 [address] , [place] and joints of [place], tel:+ right footPain [place] [phone] in left [place], [place], [place] [address]43 48 left kneePain . in right tel: hipCervicalgiaL 1676210 meghan term (current) use of opiate analgesic OFFICE/OUTPAT [facility] low back Other [facility] Spec ali IENT VISIT, [facility] Pain [facility] pain spondylosis, [facility]. 7235 : Rohith EST Pain [place] (chief lumbar 1 [address] [place] Hien, Clinic, complaint) regionFin[place], [place].Referri [address] ectomy DOUG, ng [place], syndrome, not [id number], Provide r: [place], elsewhere [place]. Faisal CAMACHO, classifiedPain tel: Will J, [phone] in right ankle 27524 [address] , [place] and joints of [place], tel:+ right footPain [place] 31610849 in left [place], [place], [place] [address]67 48 left kneePain . in right tel: hipCervicalgiaL 6643201 meghan term (current) use of opiate analgesic [facility] longterm May- [facility] (current) use [facility] 7235 Pain [place] of opiate [address] [place], Clinic, analgesicEncoun [place], [address] for [place], [place], therapeutic [id number], [place], drug level [place]. [place], monitoring tel: [phone] [phone] , [place] tel: [phone] OFFICE/OUTPAT [facility] low back Other May- [facility] Speci alist IENT VISIT, [facility] pain spondylosis, [facility]. 7235 : Rohith EST Pain [place] (chief lumbar 1 [address] [facility], Clinic, complaint) regionPostlCurrie, [place].Referri [address] ectomy [place], ng [place], syndrome, not [id number], Provide r: [place], elsewhere [place]. Faisal [place], classifiedPain tel: Will J, [phone] in right ankle 35701 [address] , [place] and joints of [place], tel:+ right footPain [place] 58744136 in left [place], [place], [place] [address] left kneePain . in right tel: hipCervicalgiaL 3408617 meghan term (current) use of opiate analgesicEncoun ter for therapeutic drug level monitoring OFFICE VISIT, [facility] low back Other [facility] pain spondylosis, [facility]. 7235 : R oy TELEMEDICINE Pain [place] (chief lumbar 1 [address] [place] [facility], complaint) [facility], [address] ectomy [place], Rd [address] [place], syndrome, not [id number], 140, [place], elsewhere [place]. [place], classifiedPain tel:284 , [place] , [phone] in right ankle 34951 [address]9230. , [place] and joints of tel:+ tel:+ right footPain 5764520 Ref 28505805 in left erring shoulderPain in Provider : left kneePain Faisal in right Will J, hipCervicalgiaL [address] s meghan term [place], (current) use [place] of opiate s, [place], analgesicEncoun [address]-[address] for . therapeutic tel: drug level [phone] monitoring OFFICE VISIT, [facility] low back Other [facility] pain spondylosis, [facility]. 7235 : R oy TELEMEDICINE Pain [place] (chief lumbar 0 [address] [facility], Clinic, complaint) [facility]Postl[facility] [place], [address] ectomy [place], Rd [address] [place], syndrome, not [id number], 140, [place], elsewhere [place]. [place], classifiedPain tel:284 , [place] , [phone] in right ankle 73405 88800. , [place] and joints of tel: tel: right footPain 7550578 Ref 35642117 in left erring shoulderPain in Provider : left kneePain Faisal in right Will J, hipCervicalgiaL [address] s meghan term [place], (current) use [place] of [place]iate [place], [place], analgesic [address] . tel:[phone] OFFICE/OUTPAT [facility] low back Other [facility], [facility]- [facility] 7[facility] : Rohith EST Pain [place] (chief lumbar 0 [address] [facility], [facility], complaint) [facility], [address] ectomy [place], Rd [address] [place], syndrome, not [id number], 140, [place], elsewhere [place]. [place], classifiedPain tel:284 , [place] , [phone] in right ankle 66250 [address]33. , [place] and joints of tel: tel:+ right footPain 9396572 Ref 69586442 in left erring shoulderPain in Provider : left kneePain Faisal in right Will J, hipLong term [address] (current) use [place], of opiate [place] analgesicCervic s, [place], [place] [address] . 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 pain (current) use [facility] 723 5 : Rohith EST Pain [place] (chief of opiate 0 [address] Hien Henderson, Clinic, complaint) analgesicPostla [place], [address] minectomy [place], Rd [address] [place], syndrome, not [id number], 140, [place], elsewhere [place]. [place], classifiedPain tel:284 , [place] , [phone] in right ankle 53967 [address]96. , [place] and joints of tel: tel: right footPain 5217340 Ref 14632260 in left erring shoulderOther Provider: spondylFaisal man lumbar Will J, regionPain in [address] left kneePain [place], [place], [address] . tel:[phone] OFFICE VISIT, [facility] low back Postlaminectomy [facility] pain syndrome, not [facility]. 7235 : Rohith TELEMEDICINE Pain [place] (chief elsewhere 0 [address] Narendra Henderson r, Clinic, complaint) classifiedPain [place], [address] in right ankle [place], Rd [address] [place], and joints of [id number], 140, [place], right footPain [place]. Margot mclaughlin [place], in left tel:284 , [place], [phone] shoulderLong 12336 17075. , [place] term (current) tel: 2 tel: use of opiate [id number] ef [id number] analgesicOther erring spondylosis, Provider: lumbar Faisal regionPain in Will J, left kneePain [address] in right hip [place], [place], [address] . tel:[phone] OFFICE VISIT, [facility] low back Postlaminectomy May- [facility] pain syndrome, not [facility] 7235 : Rohith TELEMEDICINE Pain (chief elsewhere 0 [address] Narendra Henderson r, Clinic, complaint) classifiedLow [place], [address] back painPain [place], Rd [address] [place], in right ankle [id number], 140, [place], and joints of [place]. [place] CAMACHO, right footLong tel:+[phone] , [place] , [phone] term (current) 06515 96063. , [place] use of opiate tel: tel: analgesicPain 1645821P ef 51896530 in left erring shoulder Provider: Faisal Calderón, [address] [place], [address] . tel:[phone] OFFICE/OUTPAT [facility] low back Postlaminectomy Fransisco flores Specialist IENT VISIT, [facility] Pain [facility] pain syndrome, not 6- [facility] 723 5 : Rohith EST Pain [place] (chief elsewhere 0 [facility] [place] [facility], complaint) [place] [address] [address] back painLong [place], Rd [address] [place], term (current) [id number], 140, [place], use of opiate [place]. [place] CAMACHO, analgesicPain tel:284 , [place], [phone] in right ankle 20571 50697. , [place] and joints of tel: tel: right foot [phone] [phone] erring Provider: Faisal Calderón, [address] [place], [address] . tel:[phone] OFFICE/OUTNHT [facility] low back Postlaminectomy Jan- Fransisco flores Specialist IENT VISIT, [facility] pain syndrome, not 7- [facility] 723 5 : Rohith EST Pain [place] (chief elsewhere 9 [facility], complaint) classifiedLow [place], [address] back painPain [place], Rd [address] [place], in right [id number], 140, [place], handLong term [place]. [place] CAMACHO, (current) use tel:284 , [place], [phone] of opiate 88982 [address]. , [place] analgesic tel: tel: [phone] erring Provider: Faisal Calderón, [address] [facility] [place], [address] . tel:[phone] OFFICE/OUTPAT [facility] low back longterm Oct-3 Pedro Spe cialist IENT VISIT, [facility] pain (current) use 0-201 [facility] 723 5 : Rohith EST Pain [place] (chief of opiate 9 [address] SantiagoHien, Clinic, complaint) analgesicPostla [place], [address] minectomy [place], Rd [address] [place], syndrome, not [id number], 140, [place], elsewhere [place]. [place] CAMACHO, classifiedLow tel:[phone] , DOUG, [phone] back pain 90508 91608. , [place] tel: tel: [phone] erring Provider: Faisal Calderón, [address] [facility] [place], [address] . tel:[phone] OFFICE/OUTPAT [facility] low back Postlaminectomy Sep- Kangharley s Specialist IENT VISIT, [facility] pain syndrome, not 0-201 [facility] 723 5 : Rohith EST Pain [place] (chief elsewhere 9 [facility] Hien Henderson, Clinic, complaint) classifiedLow [place], [address] back painLong [place], Rd [address] [place], term (current) [id number], 140, [place], use of opiate [place]. [place] CAMACHO, analgesic tel:[phone] , DOUG, [phone] 63991 18510. , [place] tel: tel: [phone] erring Provider: Faisal Calderón, [address] [facility] [place], [address] . tel:[phone] OFFICE/OUTPAT [facility] low back Pain in right Jose-0 Pedro Specialist IENT VISIT, [facility] pain handLow back 1-201 [facility] 7235 : Rohith EST Pain [place] (chief painPostlaminec 9 [address] Olman Henderson er, Clinic, complaint) pricilla syndrome, [place], [address] not elsewhere [place], Rd [address] [place], classifiedEncou [id number], 140, [place], nter for [place]. [place] CAMACHO, therapeutic tel:284 , DOUG, [phone] drug level 08325 05090. , [place] monitoringLong tel: 2 tel: term (current) [id number] Ref [id number] use of opiate erring analgesic Provider: Faisal Calderón, [address] [facility] [place], [address] . tel:[phone] OFFICE/OUTPAT [facility] low back Postlaminectomy Apr-2 Fransisco flores Specialist IENT VISIT, [facility] Pain [facility] pain syndrome, not [facility]. 723 5 : Rohith EST Pain [place] (chief elsewhere 9 [facility] [facility] complaint[place] classifiedLow [place], [address] back painLong [place], Rd [address] [place], term (current) [id number], 140, [place], use of opiate [place]. Lakesha CAMACHO, analgesicPain tel:284 , DOUG, [id number] in right hand 24784 91354. , [place] tel: tel: [phone] erring Provider: Faisal Calderón, [address] [facility] [place], [address] . tel:[phone] OFFICE/OUTPAT [facility] low back Intervertebral Mar-0 Pedro Specialist IENT VISIT, [facility] Pain [facility] pain disc disorders 4-201 [facility]. 72 35 : Rohith EST Pain [place] (chief with 9 [facility] [place] [facility], complaint) myelopathy, [place], [address] lumbar [place], Rd [address] [place], regionLow back [id number], 140, [place], painLong term [place]. [place] DOUG, (current) use tel:284 , DOUG, [id number] of opiate [id number] [id number]. , [place] analgesic tel: tel: [phone] erring Provider: Faisal Calderón, [address] [facility] [place], [address] . tel:[phone] OFFICE/OUTNHT [facility] low back Postlaminectomy Jan- Fransisco flores Specialist IENT VISIT, [facility] Pain [facility] pain syndrome, not 8-201 [facility]. 723 5 : Rohith EST Pain [place] (chief elsewhere 8 [facility], complaint) classifiedInter [place], [address] vertebral disc [place], Rd [address] [place], disorders with [id number], 140, [place], myelopathy, [place]. [place], lumbar tel:[phone] , [place], [phone] regionLow back [id number] 78335. , [place] pain tel: tel: [phone] erring Provider: Faisal Calderón, [address] [facility] [place], [address] . tel:[phone] OFFICE/[facility] low back Postlaminectomy Nov-0 Fransisco flores Specialist IENT VISIT, [facility] Pain [facility] pain syndrome, not 2-201 [facility]. 723 5 : Rohith EST Pain [place] (chief elsewhere 8 [facility] [place] [facility] [facility], complaint) classifiedInter [place], 7373 [address] vertebral disc [place], Haven Clara Henderson, disorders with [id number], [address] [place], myelopathy, [place]. 306, [place], lumbar tel:284 [place], [place], [phone] regionLow back 37623 12042. , [place] painLong term tel: tel: (current) use [id number] ef [id number] of opiate erring analgesic Provider: Faisal Calderón, [address] [facility] [place], [address] . tel:[phone] OFFICE/OUTNHT [facility] low back Postlaminectomy Sep- Kasey mclaughlin Specialist IENT VISIT, [facility] Pain [facility] pain syndrome, not 8-201 Chuck. 14 55 : Rohith EST Pain [place] (chief elsewhere [address] [facility] [address] [place], Clinic, complaint) [facility], 7373 [address] back pain [place], Haven Souza ve [place], DOUG, S [address] [place], [id number], 306, [place], [place]. DOUG [place], [id number] tel:[phone]. , [place] [address] tel:+ tel:+ [phone] erring Provider: Faisal Calderón, [address] [place], [address] . tel:[phone] OFFICE/OUTPAT [facility] low back Low back Jose-0 Pedro Spec ialist IENT VISIT, [facility] Pain [facility] pain painPostlaminec 5-201 [facility]. 7 235 : Rohith EST Pain [place] (chief pricilla syndrome, [address] [place], Narendra r, Clinic, complaint) not elsewhere [place], 73 73 [address] classified DOUG, Haven [place], [id number], S [address] [place], [place]. 306, [place], tel:+[phone] DOUG [place], [phone] 04205 91773. , [place] tel: tel: [phone] erring Provider: Faisal Calderón, [address] [place], [address] . tel:[phone] OFFICE/OUTPAT [facility] low back Low back May-0 Pedro Spec ialist IENT VISIT, [facility] Pain [facility] pain painPostlaminec 3-201 [facility]. 7 235 : Rohith EST Pain [place] (chief pricilla syndrome, [address] [place], Narendra r, Clinic, complaint) not elsewhere [place], 73 73 [address] classified DOUG, Haven Elizabeth [place], [id number], S [address] [place], [place]. 306, [place], tel:[phone] DOUG [place], [phone] 84478 24340. , [place] tel: tel:+ [phone] erring Provider: Faisal Calderón, [address] [place], [address] . tel:[phone] OFFICE/OUTPAT [facility] low back Low back Mar-0 Pedro Spec ialist IENT VISIT, [facility] Pain Clinic pain painPostlaminec 6-201 [facility]. 7 235 : Rohith EST Pain [place] (chief pricilla syndrome, [address] [place], Moelle r, Clinic, complaint) not elsewhere [place], 73 73 [address] classified DOUG, Haven [place], [id number], [address] [place], [place]. 306, [place], tel:[phone] [place], DOUG, [id number] 77668 70656. , [place] tel: tel:+ [phone] erring Provider: Faisal Calderón, [address] [place] Sebastianginger sandraDOUG, [address] . tel:[phone] OFFICE/OUTPAT [facility] low back Low back Dennis-0 Pedro Spec ialist IENT VISIT, [facility] Pain Clinic pain painPostlaminec 3-201 [facility]. 7 235 : Rohith EST Pain [place] (chief pricilla syndrome, [address] [place], Moelle r, Clinic, complaint) not elsewhere [place], 73 73 [address] classified DOUG, Haven Henderson, [id number], [address] [place], [place]. 306, [place], tel:[phone] DOUG Coleman, [phone] 92334 54213. , [place] tel: tel: [phone] erring Provider: Faisal Calderón, [address] [place], [address] . tel:[phone] OFFICE/OUTPAT [facility] low back Low back Nov-0 Pedro Spec ialist IENT VISIT, [facility] Pain Clinic pain painPostlaminec 6-201 [facility]. 7 235 : Rohith EST Pain [place] (chief pricilla syndrome, [address] [place], Moelle r, Clinic, complaint) not elsewhere [place], 73 73 [address] classified DOUG, Haven [place], [id number], [address] [place], [place]. 306, [place], tel:+[phone] DOUG [place], [phone] [phone] 83858. , [place] tel:+ tel: [phone] [phone] erring Provider: Faisal Calderón, [address] [place], [address] . tel:[phone] OFFICE/OUTNHT [facility] low back Low back Sep-0 Pedro Spec ialist IENT VISIT, [facility] pain painPostlaminec 8-201 [facility]. 7 235 : Rohith EST Pain [place] (chief pricilla syndrome, [address] [place], Moelle r, Clinic, complaint) not elsewhere [place], 73 73 [address] classified DOUG, Haven Henderson, [id number], S Suite [place], [place]. 306, [place], tel: DOUG [place], [phone] [phone]. , [place] tel: tel: [phone] erring Provider: Faisal Calderón, [address] [place], [address] . tel:[phone] OFFICE/OUTNHT [facility] low back Low back Jose-0 Pedro Spec ialist IENT VISIT, [facility] pain painPostlaminec 7-201 [facility]. 7 235 : Rohith EST Pain [place] (chief pricilla syndrome, [address] [place], Moelle r, Clinic, complaint) not elsewhere [place], 73 73 [address] classified DOUG, Haven [place], [id number], S [address] [place], [place]. 306, [place], tel: [place], DOUG, [id number] 57835 77102. , [place] tel: tel: [phone] erring Provider: Faisal Calderón, [address] [place], [address] . tel:[phone] OFFICE/OUTNHT [facility] low back Low back pain May-0 Pedro Specialist IENT VISIT, [facility] Clinic pain 9-201 [facility]. 7235 : Ro y EST Pain [place] (chief 7 [address] [place], [place]ien, Clinic, complaint) [place], 7373 [address] DOUG, Haven [place], [id number], S [address] [place], [place]. 306, [place], tel:+[phone] DOUG [place], [id number] 99306 71447. , [place] tel:+44 tel:[phone] erring Provider: Faisal Calderón, [address] [place], [address] . tel:[phone] OFFICE/OUTPAT [facility] low back Low back pain Mar-1 Pedro Specialist IENT VISIT, [facility] Pain Clinic pain 0-201 [facility]. 7235 : Ro y EST Pain [place] (chief 7 [address] [place], [place], Clinic, complaint) [place], [address] DOUG, Haven Henderson, [id number], S [address] [place], [place]. 306, [place], tel:[phone] DOUG [place], [phone] [phone] 04797. , [place] tel:+25 tel:[phone] erring Provider: Faisal Calderón, [address] [place], [address] . tel:[phone] OFFICE/OUTPAT [facility] low back Low back pain Dennis-0 Pedro Specialist IENT VISIT, [facility] Clinic pain 3-201 [facility]. 7235 : Ro y EST Pain [place] (chief 7 [facility] [place], [place], Clinic, complaint) [place], 7373 [address] DOUG, Haven Henderson, [id number], S Suite [place], [place]. 306, [place], tel:+[phone] DOUG [place], [id number] 34763 94068. , [place] tel:+92 tel:[phone] erring Provider: Faisal Calderón, [address] [place], [address] . tel:[phone] OFFICE/OUTPAT [facility] low back Low back Nov-0 Pedro Spec ialist IENT VISIT, [facility] Pain Clinic pain painPostlaminec 4-201 [facility]. 7 235 : Rohith EST Pain [place] (chief pricilla syndrome, [address] [place], Beanelle r, Clinic, complaint) not elsewhere [place], 73 73 [address] classified [place], Haven [place], [id number], [address] [place], [place]. 306, [place], tel:[phone] [place], [place], [phone] 24036 10280. , [place] tel:+ tel: [phone] erring Provider: Faisal Calderón, [address] [place], [address] . tel:[phone] OFFICE/OUTPAT [facility] low back Low back Sep-0 Pedro Spec ialist IENT VISIT, [facility] Pain Clinic pain painPain in [facility]. 7235 : Rohith EST Pain [place] (chief left shoulder 6 OhHien Jones , Clinic, complaint) [place], [address] DOUG, Haven Elizabeth [place], [id number], S [address] [place], [place]. 306, [place], tel:[phone] DOUG [place], [phone] 97721 27736. , [place] tel: tel: [phone] erring Provider: Faisal Calderón, [address] [place], [address] . tel:[phone] OFFICE/OUTPAT [facility] low back Low back Jose-0 Pedro Spec ialist IENT VISIT, [facility] Pain [facility] pain painPain in [facility]. 7235 : Rohith EST Pain [place] (chief left 6 OhHien Jones, Clinic, complaint) shoulderPain in [place], 7373 [address] right ankle and [place], Haven [place], joints of right [id number], S Priscilla te [place], foot [place]. 306, [place], tel:[phone] [place], [phone] 99018 22550. , [place] tel:+ tel:+ [phone] erring Provider: Faisal Calderón, [address] [place], [address] . tel:[phone] OFFICE/OUTPAT [facility] low back Low back June- Pedro Spec ialist IENT VISIT, [facility] Pain Clinic pain painPain in [facility]. 7235 : Rohith EST Pain [place] (chief left shoulder [address] [place], Hien , Clinic, complaint) [place], [address] [place], Haven [address] [place], [id number], S Suite [place], [place]. 306, [place], tel:[phone] [place], [place], [phone] [phone] 50730. , [place] tel: tel:+ [phone] erring Provider: Faisal Calderón, [address] [place], [address] . tel:[phone] OFFICE/OUTPAT [facility] low back Low back Apr- Pedro Spec ialist IENT VISIT, [facility] Pain Clinic pain painPain in [facility]. 7235 : Rohith EST Pain [place] (chief left shoulder [address] [place], Hien , Clinic, complaint) [place], [address] [place], Haven [address] [place], [id number], S Suite [place], [place]. 306, [place], tel:[phone] DOUG [place], [phone] 51804. , [place] tel: tel: [phone] erring Provider: Faisal Calderón, [address] [place], [address] . tel:[phone] OFFICE/OUTPAT [facility] low back Low back Pedro Spec ialist IENT VISIT, [facility] Pain Clinic pain painPain in [facility]. 7235 : Rohith EST Pain [place] (chief right ankle and 6 [address] [place], Moell er, Clinic, complaint) joints of right [place], 7373 [address] footPain in [place], Haven [address] [place], left shoulder [id number], S Suite [place], [place]. 306, [place], tel:[phone] [place], [place], [phone] [phone] 24418. , [place] tel:+ tel: [phone] erring Provider: Faisal Jaspreet Kaitlynn, [address] [place], [address] . tel:[phone] OFFICE/OUTPAT [facility] low back Low back Nov-0 Pedro Spec ialist IENT VISIT, [facility] Pain Clinic pain painPostlaminec 6- [facility]. 7 235 : Rohith EST Pain [place] (chief pricilla syndrome, [address] [place], Moelle r, Clinic, complaint) not elsewhere [place], 73 73 [address] classified [place], Haven Che [place], [id number], S Suite [place], [place]. 306, [place], tel: [place], [place], [phone] 67028 08565. , [place] tel: tel: [phone] OFFICE/OUTPAT [facility] low back Ankylosis of [facility] Specialist IENT VISIT, [facility] Pain Clinic pain ankle and foot 4 [facility]. 72 35 : Rohith EST Pain [place] (chief jointDegenerati 5 [address] [place], Moell er, Clinic, complaint) on of lumbar or [place], 7373 [address] lumbosacral [place], Haven [address] [place], intervertebral [id number], S [address] [place], discEnthesopath [place]. 306, [place], y of hip tel: DOUG [place], [phone] regionIntervert [phone]. , [place] ebral disc tel: tel: disorder with [phone] myelopathy, lumbar regionLumbagoPa in in joint involving ankle and footPain in joint involving lower legPostlaminect nikita syndrome of lumbar regionPain in joint involving shoulder region OFFICE/OUTPAT [facility] low back Ankylosis of [facility] Specialist IENT VISIT, [facility] Clinic pain ankle and foot 6-201 [facility]. 72 35 : Rohith EST Pain [place] (chief jointDegenerati 5 [address] [place], Moell er, Clinic, complaint) on of lumbar or [place], 7373 [address] lumbosacral [place], Haven [address] [place], intervertebral [id number], S [address] [place], discEnthesopath [place]. 306, [place], y of hip tel: [place], [place], [phone] regionIntervert [phone]. , [place] ebral disc tel: tel: disorder with [phone] myelopathy, lumbar regionLumbagoPa in in joint involving ankle and footPain in joint involving lower legPostlaminect nikita syndrome of lumbar region OFFICE/OUTPAT [facility] low back Acquired Pedro Spec ialist IENT VISIT, [facility] Clinic pain musculoskeletal 3-201 [facility]. 7 235 : Rohith EST Pain [place] (chief deformity of 5 [facility] [place], Clinic, complaint) unspecified [place], [facility] [address] [facility] siteAnkylosis [place], Haven [place], of ankle and [id number], S [address] [place], foot [place]. 306, [place], jointDegenerati tel: [place], [place], [phone] on [place] [phone]. , [place] lumbosacral tel: tel: intervertebral [phone] discEnthesopath y of hip regionIntervert ebral disc disorder with myelopathy, lumbar regionLumbagoPa in in joint involving ankle and footPain in joint involving lower legPostlaminect nikita syndrome of lumbar region OFFICE/OUTPAT [facility] low back Ankylosis of Pedro Specialist IENT VISIT, [facility] Clinic pain ankle and foot 8-201 [facility]. 72 35 : Rohith EST Pain [place] (chief jointDegenerati 5 [facility] Olman Henderson er, Clinic, complaint) on of lumbar or [place], 7373 [address] lumbosacral [place], Haven [place], intervertebral [id number], S Suit [address] [place], discEnthesopath [place]. 306, [place], y of hip tel: [place], [place], [phone] regionIntervert [phone]. , [place] ebral disc tel: tel: disorder with [phone] myelopathy, lumbar regionLumbagoPa in in joint involving ankle and footPain in joint involving lower legPostlaminect nikita syndrome of lumbar region OFFICE/OUTPAT [facility] low back Degeneration of Fransisco folres Specialist IENT VISIT, [facility] Clinic pain lumbar or 6201 [facility]. 7235 : Rohith EST Pain [place] (chief lumbosacral [address] Hien [place], Clinic, complaint) intervertebral [place], 7 373 [address] discEnthesopath [place], Haven Dimae [place], y of hip [id number], S Suite [place], regionIntervert [place]. 306, [place], ebral disc tel: [place], M N, [id number] disorder with [phone]. , [place] myelopathy, tel: tel: lumbar [phone] regionLumbagoPa in in joint involving ankle and footPain in joint involving lower legPostlaminect nikita syndrome of lumbar regionAnkylosis of ankle and foot joint OFFICE/OUTPAT [facility] Back Pain Ankylosis of Pedro Specialist IENT VISIT, [facility] Clinic (chief ankle and foot 0-201 [facility]. 72 35 : Rohith EST Pain [place] complaint) jointDegenerati 4 [address] Bean Hendersoner, Clinic, on of lumbar or [place], 737 3 [address] lumbosacral [place], Haven [place], intervertebral [id number], S Suit [address] [place], discEnthesopath [place]. 306, [place], y of hip tel: [place], [place], [phone] regionIntervert [phone]. , [place] ebral disc tel: tel: disorder with [phone] myelopathy, lumbar regionLumbagoPo stlaminectomy syndrome of lumbar region OFFICE/OUTPAT [facility] back pain Postlaminectomy Jayden jj Specialist IENT VISIT, [facility] (chief syndrome of [facility]. 7235 : Rohith EST Pain [place] complaint) lumbar [address] Hien Hendreson, Clinic, regionPain in [place], [address] joint involving [place], Haven [place], ankle and [id number], [address] [place], footLumbago [place]. 306, [place], tel: DOUG [place], [id number] 06783 [phone]. , [place] tel: tel: [phone] OFFICE/OUTPAT [facility] low back Postlaminectomy Sep- Monico Specialist IENT VISIT, [facility] Clinic pain syndrome of Ayana. : Rohith EST Pain [place] (chief lumbar 4 [address] Hien, Clinic, complaint) regionPain in [place], [address] joint involving [place], F jatin Dimairis [place], ankle and foot [place], [address] [place], [id number], 306, [place], [place]. DOUG [place], 603920982 tel: [phone]. , [place] [address] tel: tel: [phone] OFFICE/OUTPAT [facility] back and Pain in joint Pedro Specialist IENT VISIT, [facility] Clinic right foot involving ankle 7 [facility] . 7235 : Rohith EST Pain [place] pain and footLumbago 4 [address] Olman Henderson , Clinic, (chief [place], 7373 [address] complaint) [place], Haven [place], [id number], [address] [place], [place]. 306, [place], tel: DOUG [place], [phone] 28419 36669. , [place] tel: tel: [phone] OFFICE/OUTPAT [facility] back and Pain in joint Pedro Specialist IENT VISIT, [facility] right foot involving ankle 3-201 [facility] . 7235 : Rohith EST Pain [place] pain and 4 [address] Hien [place], Clinic, (chief footLumbagoPain [place], 737 3 [address] complaint) in joint DOUG, Haven Henderson, involving lower [id number], S Priscilla te [place], leg [place]. 306, [place], tel: DOUG [place], [phone] 18952. , [place] tel: tel: [phone] OFFICE/OUTPAT [facility] right foot Pain in joint Kanga s Specialist IENT VISIT, [facility] Clinic pain involving ankle 4-201 [facility]. 7 235 : Rohith EST Pain [place] (chief and footLumbago 4 [address] [place], Moell er, Clinic, complaint) [place], 7373 [address] low back [place], [address] [place], pain [id number], S [address] [place], (chief [place]. 306, [place], complaint) tel:+[phone] [place], M N, [id number] 54378 82116. , [place] tel:+48 tel:[phone] [place] [address] No Information Will Faisal. [facility] 8- [address] Pain [place] 4 [place], Clinic, [place], [address] [place], [place], [id number], [place], [place]. [place], tel:[phone] 09278 , [place] tel:+ [phone] OFFICE/OUTPAT [facility] right foot Pain in joint Will Faisal. Specialist IENT VISIT, [facility] Clinic pain involving ankle 3-201 [address] s : Rohith EST Pain [place] (chief and foot 4 [place], Hien, Clinic, complaint) [place], [address] [place], Haven [place], [id number], S [address] [place], [place]. 306, [place], tel:+[phone] [place], [place], [phone] [phone]. , [place] tel:+ tel:+ [phone] [place] [address] right foot Pain in joint No [facility] pain involving ankle 2-201 Information : Rohith Pain [place] (chief and foot 3 Hien, Clinic, complaint) [address] Haven Clara [place], [address] [place], 306, [place], [place], [place], [id number] 22194. , [place] tel:+17 tel:+[phone] OFFICE/OUTPAT [facility] right foot Pain in joint Sep- No Specialist IENT VISIT, [facility] Clinic pain involving ankle 1-201 Informat ion : Rohith EST Pain [place] (chief and foot 3 Hien, Clinic, complaint) [address] Haven [place], [address] [place], 306, [place], [place], [place], [id number] [address]217. , [place] tel: tel: [phone] OFFICE/OUTPAT [facility] right foot Pain in joint No Specialist IENT VISIT, [facility] Clinic pain involving ankle 6-201 Informat ion : Rohith EST Pain [place] (chief and foot 3 Hien, Clinic, complaint) [address] Haven [place], [address] [place], 306, [place], [place], [place], [id number] 20864. , [place] tel: tel: [phone] OFFICE/OUTPAT [facility] right foot Pain in joint No Specialist IENT VISIT, [facility] Clinic pain involving ankle 9-201 Informat ion : Rohith EST Pain [place] (chief and 3 Hien, Clinic, complaint) footDegeneratio 7373 [address] n of lumbar or Haven Henderson, lumbosacral [address] [place], intervertebral 306, [place], disc [place], [place], [id number] 83761. , [place] tel: tel: [phone] OFFICE/OUTPAT [facility] right foot Pain in joint No Specialist IENT VISIT, [facility] Clinic pain involving ankle 0-201 Informat ion : Rohith EST Pain [place] (chief and foot 3 Hien, Clinic, complaint) [address]373 [address] Haven Clara [place], [address] [place], 306, [place], [place], [place], 6072944[address] 84359. , [place] tel: tel: [phone] OFFICE/OUTPAT [facility] right foot Pain in joint No Specialist IENT VISIT, [facility] Clinic pain involving ankle 1-201 Informat ion : Rohith EST Pain [place] (chief and foot 2 Hien, Clinic, complaint) [address] Haven Henderson, [address] [place], 306, [place], [place], [place], 274135516 03570. , [place] tel: tel: [phone] OFFICE/OUTPAT [facility] right foot Pain in joint No Specialist IENT VISIT, [facility] Clinic pain involving ankle 4-201 Informat ion : Rohith EST Pain [place] (chief and foot 2 Hien, Clinic, complaint) [address] Haven Elizabeth [place], [address] [place], 306, [place], [place], [place], [id number] 39987. , [place] tel: tel: [phone] OFFICE/OUTPAT [facility] right foot Pain in joint Will Faisal. IENT VISIT, [facility] Clinic pain involving ankle 2- 7235 [address] s EST Pain [place] (chief and foot 2 [place], Clinic, complaint) [place], [address] [place], [id number], [place], [place], tel:[phone] 04776 , [place] tel: [phone] OFFICE/OUTPAT [facility] right foot Pain in joint Will Faisal. IENT VISIT, [facility] Clinic pain involving ankle 7235 [address] s EST Pain [place] (chief and foot 2 [place], Clinic, complaint) [place], [address] [place], [id number], [place], [place]. [place], tel:[phone] , [place] tel: [phone] OFFICE/OUTPAT [facility] right foot Pain in joint Will Faisal. IENT VISIT, [facility] Clinic pain involving ankle 7[address] s EST Pain [place] (chief and foot 2 [place], Clinic, complaint) [place], [address] [place], [id number], [place], [place], tel:[phone] , [place] tel: [phone] OFFICE/OUTPAT [facility] right foot Pain in joint Will Faisal. IENT VISIT, [facility] pain involving ankle [address] EST Pain [place] (chief and 2 [place], Clinic, complaint) footEnthesopath [place], [address] y of hip region [place], [id number], [place], [place], tel:[phone] , [place] tel:[phone] OFFICE/OUTPAT [facility] right foot Pain in joint Will Faisal. IENT VISIT, [facility] pain involving ankle 0-201 [address] EST Pain [place] (chief and foot 1 [place], Clinic, complaint) [place], [address] [place], [place], [id number], [place], tel: [phone] , [place] tel: [phone] OFFICE/OUTPAT [facility] right foot Pain in joint Will Faisal. IENT VISIT, [facility] pain and involving ankle 4-201 [address] Pain [place] low back and 1 [place], Clinic, pain footInterverteb [place], [address] (chief ral disc [place], [place], complaint) disorder with [id number], [place], myelopathy, [place], lumbar region tel: [phone] , [place] tel: [phone] OFFICE/OUTPAT [facility] [place] low back Intervertebral Will Harley dorman. IENT VISIT, [facility] pain disc disorder 5-201 [address] EST Pain [place] (chief with 1 [place], Clinic, complaint) myelopathy, [place], [address] right foot lumbar [place], [place], pain regionPain in [id number], [place], (chief joint involving [place], complaint) ankle and foot tel: [phone] , [place] tel: [phone] OFFICE/OUTPAT [facility] right foot Pain in joint Will Faisal. IENT VISIT, [facility] pain involving ankle 8-201 [address] EST Pain [place] (chief and 1 [place], Clinic, complaint) footInterverteb [place], [address] low back ral disc [place], [place], pain disorder with [id number], [place], (chief myelopathy, [place], [place]) lumbar region tel: [phone] , [place] tel: [phone] OFFICE/OUTPAT [facility] [place] right foot Pain in joint Will Faisal. IENT VISIT, [facility] pain involving ankle 7-201 [address] EST Pain [place] (chief and 1 [place], Clinic, complaint) footAcquired [place], [address] musculoskeletal [place], [place], deformity of [id number], [place], [place], site tel:[phone] , [place] tel:[phone] OFFICE/OUTPAT [facility] right foot Acquired Will Noah moulton IENT VISIT, [facility] pain musculoskeletal [address] EST Pain [place] (chief deformity of 1 [place], Clinic, complaint) unspecified [facility] [address] sitePain in [place], [place], joint involving [id number], [place], ankle and foot [place], tel:[phone] , [place] tel:[phone] OFFICE/OUTPAT [facility] right foot Pain in joint Will IENT VISIT, [facility] Clinic pain involving ankle [address] Pain [place] (chief and 0 [place], Clinic, complaint) footAcquired [place] [address] musculoskeletal [place], [place], deformity of [id number], [place], [place], site tel:[phone] , [place] tel:[phone] [facility] Acquired Will Noah moulton IENT VISIT, [facility] pain musculoskeletal [address] EST Pain [place] (chief deformity of 0 [place], Clinic, complaint) unspecified [place], [facility] [address] [place]Pain in [place], [place], joint involving [id number], [place], ankle and foot [place], tel:[phone] , [place] tel:[phone] [facility] Acquired Will Noah moulton IENT VISIT, [facility] pain musculoskeletal [address] EST Pain [place] (chief deformity of 0 [place], Clinic, complaint) unspecified [place], [facility] [address] [place]Pain in [place], [place], joint involving [id number], [place], ankle and [place], footAnkylosis tel:[phone] of ankle and [address] , [place] foot joint tel: [phone] OFFICE/OUTPAT [facility] right foot Pain in joint Will Faisal. IENT VISIT, [facility] pain involving ankle 3-201 [address] EST Pain [place] (chief and 0 [place], Clinic, complaint) footAcquired [place] [address] musculoskeletal [place], [place], deformity of [id number], [place], [place], site tel: [phone] , [place] tel: [phone] [facility] right foot Acquired Will Faisal. [facility] pain musculoskeletal 7-201 [address] Pain [place] (chief deformity of 0 [place], Clinic, complaint) unspecified [place] [address] sitePain in [place], [place], joint involving [id number], [place], ankle [place] foot [place], tel: [phone] , [place] tel: [phone] OFFICE/OUTPAT [facility] foot pain Pain in joint Will Harley dorman. IENT VISIT, [facility] (chief involving ankle 4-201 [address] Pain [place] complaint) and 0 [place], Clinic, footAcquired [place] [address] musculoskeletal [place], [place], deformity of [id number], [place], [place], siteAnkylosis tel:[phone] of ankle and [address] , [place] foot jointViral tel: [phone] OFFICE/OUTPAT [facility] right foot Pain in joint Will Faisal. IENT VISIT, [facility] pain involving ankle 0-200 [address] EST Pain [place] (chief and 9 [place], Clinic, complaint) footAcquired [place] [address] [place]culoskeletal [place], [place], deformity of [id number], [place], [place], siteAnkylosis tel:[phone] of ankle and [address] , [place] foot joint tel: [phone] [facility] Foot pain Pain in joint Will Faisal. [facility] (chief involving ankle 0-200 [address] Pain [place] complaint) and 9 [place], Clinic, footAcquired [place], [address] musculoskeletal [place], [place], deformity of [id number], [place], [place], site tel:[phone] , [place] tel:[phone] [facility] right foot Ankylosis of Will Faisal. [facility] pain ankle and foot 6-200 [address] Pain [place] (chief joint 9 [place], Clinic, complaint) [place], [address] [place], [place], [id number], [place], [place], tel:[phone] , [place] tel:[phone] Family History Family Member Type Diagnosis Age At Onset Mother Problem (finding) back pain Payers Payer name Insurance type Covered libertarian ID Authorization(s ) AARP MedicareComplete Replacement 16 [id number] Social History Type Description Quantity Date Captured [...] Of Treatment Date Type Action Status Goal Unhealthy drug use screening. Du e on due Goal Order Annual PT. Due on 022 due Goal Height. Due on due Goal Tobacco Use. Due on due Goal Update Social History. Due on due Goal Review Allergy List. Due on due Goal FIT-DNA. Due on due Goal UDT. Due on due Goal PRINTED CIRCUIT BOARD PCB DESIGNER Paperwork. Due on 2 due Goal AST (SGOT). Due on d ue Goal Lipid panel. Due on due Goal CT-Colonography. Due on 022 due Goal Medication Reconciliation. Due o n due Goal NURSE PRACTITIONER PHYSICIAN ASSISTANT Scanned. Due on due Goal Zoster vaccine (1st). Due on Jan due Goal ALT (SGPT). Due on d ue Goal PHQ-9. Due on due Goal Creatinine. Due on d ue Goal Hepatitis C screening. Due on due Goal OARS. Due on due Goal Weight. Due on due Goal FIT. Due on due Goal PHQ-9. Due on due Goal FIT. Due on due Goal ALT (SGPT). Due on d ue Goal PRINTED CIRCUIT BOARD PCB DESIGNER Paperwork. Due on 2 due Goal Weight. Due on due Goal [...] due Goal Height. Due on due Goal NURSE PRACTITIONER PHYSICIAN ASSISTANT Scanned. Due on due Goal OARS. Due on due Goal PRINTED CIRCUIT BOARD PCB DESIGNER Paperwork. Due on due Goal Height. Due [...] Medication Reconciliation. Due o n due Goal NURSE PRACTITIONER PHYSICIAN ASSISTANT Scanned. Due on due Goal Update Social [...] vaccine (1st). Due on Oct due Goal PRINTED CIRCUIT BOARD PCB DESIGNER Paperwork. Due on due Goal ALT (SGPT). [...] AST (SGOT). Due on d ue Goal NURSE PRACTITIONER PHYSICIAN ASSISTANT Scanned. Due on due Goal Height. Due [...] Medication Reconciliation. Due o n due Goal PRINTED CIRCUIT BOARD PCB DESIGNER Paperwork. Due on due Goal NURSE PRACTITIONER PHYSICIAN ASSISTANT Scanned. Due on due Goal Weight. Due on due Goal NURSE PRACTITIONER PHYSICIAN ASSISTANT Scanned. Due on due Goal Order Annual PT. Due on due Goal PRINTED CIRCUIT BOARD PCB DESIGNER Paperwork. Due on due Goal Medication Reconciliation. [...] use screening. Du e on due Goal NURSE PRACTITIONER PHYSICIAN ASSISTANT Scanned. Due on due Goal FIT. Due [...] due Goal FIT-DNA. Due on due Goal PHQ-9. Due on due Goal AST (SGOT). Due on d ue Goal Tobacco Use. Due on due Goal Review Allergy List. Due on due Goal Weight. Due on due Goal PRINTED CIRCUIT BOARD PCB DESIGNER Paperwork. Due on due Goal Zoster vaccine (1st). Due on Sep due Goal CT-Colonography. Due on due Goal Update Social History. Due on due Goal Unhealthy drug use screening. Du e on due Goal OARS. Due on due Goal Creatinine. Due on d ue Goal NURSE PRACTITIONER PHYSICIAN ASSISTANT Scanned. Due on due Goal PRINTED CIRCUIT BOARD PCB DESIGNER Paperwork. Due on due Goal AST (SGOT). Due on d ue Goal Order Annual PT. Due on due Goal ALT (SGPT). Due on d ue Goal UDT. Due on due Goal Weight. Due on due Goal Medication Reconciliation. Due o n due Goal FIT-DNA. Due on due Goal Review Allergy List. Due on due Goal Height. Due on due Goal CT-Colonography. Due on [...] ue Goal UDT. Due on due Goal NURSE PRACTITIONER PHYSICIAN ASSISTANT Scanned. Due on due Goal PRINTED CIRCUIT BOARD PCB DESIGNER Paperwork. Due on due Goal Height. Due on due Goal Creatinine. Due on d ue Goal PHQ-9. Due on due Goal Tobacco Use. Due on due Goal FIT-DNA. Due on [...] vaccine (1st). Due on Jul due Goal Unhealthy drug use screening. Du e on due Goal Medication Reconciliation. Due o n due Goal Review Allergy List. Due on due Goal PHQ-9. Due on due Goal CT-Colonography. Due on due Goal FIT-DNA. Due on due Goal Weight. Due on due Goal Zoster vaccine (1st). Due on June due Goal Update Social History. Due on due Goal Lipid panel. Due on due Goal FIT. Due on due Goal Height. Due on due Goal AST (SGOT). Due on d ue Goal PRINTED CIRCUIT BOARD PCB DESIGNER Paperwork. Due on due Goal Creatinine. Due on d ue Goal UDT. Due on due Goal OARS. Due on due Goal NURSE PRACTITIONER PHYSICIAN ASSISTANT Scanned. Due on due Goal ALT (SGPT). Due on d ue Goal Tobacco Use. Due on due Goal Order Annual PT. Due on due Goal Hepatitis C screening. Due on due Goal Lipid panel. Due on due Goal Medication Reconciliation. Due o n due Goal PHQ-9. Due on due Goal CT-Colonography. Due on due Goal PRINTED CIRCUIT BOARD PCB DESIGNER Paperwork. Due on due Goal Weight. Due [...] use screening. Du e on due Goal NURSE PRACTITIONER PHYSICIAN ASSISTANT Scanned. Due on due Goal Creatinine. Due on d ue Goal OARS. Due on due Goal FIT. Due on due Goal Review Allergy List. Due on due Goal Height. Due on due Goal FIT-DNA. Due on due Goal Zoster vaccine (1st). Due on May due Goal PHQ-9. Due on due Goal Weight. Due on due Goal Medication Reconciliation. Due o n due Goal PRINTED CIRCUIT BOARD PCB DESIGNER Paperwork. Due on due Goal NURSE PRACTITIONER PHYSICIAN ASSISTANT Scanned. Due on due Goal Order Annual PT. Due on 022 due Goal Creatinine. Due on d ue Goal UDT. Due on due Goal Height. Due on due Goal Review Allergy List. Due on due Goal Update Social History. Due on Ak due Goal OARS. Due on due Goal ALT (SGPT). Due on d ue Goal Tobacco Use. Due on due Goal AST (SGOT). Due on d ue Goal Order Annual PT. Due on due Goal OARS. Due on due Goal PRINTED CIRCUIT BOARD PCB DESIGNER Paperwork. Due on due Goal Update Social History. Due on due Goal Creatinine. Due on d ue Goal NURSE PRACTITIONER PHYSICIAN ASSISTANT Scanned. Due on due Goal AST (SGOT). Due on d ue Goal ALT (SGPT). Due on d ue Goal UDT. Due on due Goal Review Allergy List. Due on due Goal Tobacco Use. Due on due Goal Weight. Due on due Goal PHQ-9. Due on due Goal Height. Due on due Goal Medication Reconciliation. Due o n due Goal NURSE PRACTITIONER PHYSICIAN ASSISTANT Scanned. Due on due Goal Tobacco Use. Due on due Goal Order Annual PT. Due on due Goal PRINTED CIRCUIT BOARD PCB DESIGNER Paperwork. Due on due Goal PHQ-9. Due [...] ue Goal Weight. Due on due Goal AST (SGOT). Due on d ue Goal Update Social History. Due on due Goal OARS. Due on due Goal Order Annual PT. Due on 021 due Goal UDT. Due on due Goal Creatinine. Due on d ue Goal Review Allergy List. Due on due Goal PRINTED CIRCUIT BOARD PCB DESIGNER Paperwork. Due on due Goal ALT (SGPT). Due on d ue Goal NURSE PRACTITIONER PHYSICIAN ASSISTANT Scanned. Due on due Goal Height. Due on due Goal Medication Reconciliation. Due o n due Goal PHQ-9. Due on due Goal Tobacco Use. Due on due Goal Weight. Due on due Goal Creatinine. Due on d ue Goal OARS. Due on due Goal Height. Due on due Goal NURSE PRACTITIONER PHYSICIAN ASSISTANT Scanned. Due on due Goal Weight. Due on due Goal Review Allergy List. Due on due Goal PRINTED CIRCUIT BOARD PCB DESIGNER Paperwork. Due on due Goal Update Social History. Due on No due Goal Tobacco Use. Due on due [...] Review Allergy List. Due on due Goal NURSE PRACTITIONER PHYSICIAN ASSISTANT Scanned. Due on due Goal Height. Due on due Goal Creatinine. Due on d ue Goal PRINTED CIRCUIT BOARD PCB DESIGNER Paperwork. Due on due Goal Update Social [...] due Goal Weight. Due on due Goal NURSE PRACTITIONER PHYSICIAN ASSISTANT Scanned. Due on due Goal UDT. Due on due Goal ALT (SGPT). Due on d ue Goal PRINTED CIRCUIT BOARD PCB DESIGNER Paperwork. Due on due Goal PHQ-9. Due on due Goal Creatinine. [...] ue Goal Height. Due on due Goal PRINTED CIRCUIT BOARD PCB DESIGNER Paperwork. Due on due Goal AST (SGOT). Due on d ue Goal ALT (SGPT). Due on d ue Goal Medication Reconciliation. Due o n due Goal Update Social History. Due on due Goal Weight. Due on due Goal OARS. Due on due Goal Review Allergy List. Due on due Goal UDT. Due on due Goal NURSE PRACTITIONER PHYSICIAN ASSISTANT Scanned. Due on due Goal Tobacco Use. Due on due Goal PHQ-9. Due on due Goal Weight. Due on due Goal Review Allergy List. Due on due Goal Update Social History. Due on due Goal AST (SGOT). Due on d ue Goal UDT. Due on due Goal ALT (SGPT). Due on d ue Goal NURSE PRACTITIONER PHYSICIAN ASSISTANT Scanned. Due on due Goal PHQ-9. Due on due Goal Tobacco Use. Due on due Goal Medication Reconciliation. Due o n due Goal Height. Due on due Goal Creatinine. Due on d ue Goal Order Annual PT. Due on 021 due Goal OARS. Due on due Goal PRINTED CIRCUIT BOARD PCB DESIGNER Paperwork. Due on 1 due Appointment Krys Lea DO NOT DOUBLE BOOK BOOKED Appointment Krys Lea BOOKED Future Order: Lab Order COMPLIANCE DRUG ANALYSIS , URINE, WITH MED Ordered REPORT ([id number]), Ordered on: Future Order: Lab Order Drug [...] rest, sitting and changing positions. Comments: sharon schilling for a follow up and medication refill re garding lower back pain. Prescribed medicatio n offers 90% pain relief.Following wit wound care clinic regarding sore on he r foot and boil on her left thigh. States t hese are not improving much. R ankle/foot, lower back, neck, and hip pain are currently s table. Flares depending on travel/activity sofia gallegos. Following with ortho regarding left shoulder pain/injections. [...] by ice, pain meds/drugs, rest and sitting. Comments: Yola brumfield for a follow up [...] etching, rest and changing positions. Comments: Yola baldev [...] Participates in HEP as able. Inquires about [place] increase.Accom panied by her today. No further [...] Also recently completed a lumbar E SI. longterm results pending, but notes s he has [...] sumi [facility] offered benefit. R w [...] Symptoms are relieved by ice, pain meds/dr de la torre, elevating feet and topicals. low back pain [...] PT at this time. Presents with #15 [place] and # 14 Methadone - on track. [...] with her orthopedist. Patient presents with #135.5 [place], and #14 Metha done - both are [...] Presents with #20 Me thadone and #108.5 [place] - on track. Reports current medication regimen [...] is here for a f/u. Has #74 [place] and #9 Methadone remaini ng - on [...] PT-N/AESI-N/ARF-not triedSCS-not tried Meds: Opioids-Currently ta kes [place] and Methadone Neuropathics-Current ly takes gabapentin Muscle [...] her e for a f/u. Has #52 [place] and #7 Methadone remaini ng - on [...] for follow up and medications refill. Presents [facility] #75 norco and #19 methadone-- a [...] or follow up and medications refill. Presents [facility] #7 methadone, #34 [place] - on track. Reports current medication regimen [...] . They are planning a trip up [place] in [facility]. No other concerns today. low back pain [...] had a quite hor rible trip to [place]. No other concerns today . low back [...] up and medication refill. She has #100 [place] and #5 methadone remaining-surplus. T he patient states the current medication r egimen continues to be effective at reducin g pain without SE. She got an injetion from [facility] and it did not provide any relief f or her. She went to see her spine surgeon wh o discussed surgery with her. She tried gabap entin and reports she was very drowsy on it. S he may be interested in trying Lyrica. No ot her concerns today. low back pain (comments) Patient is here for f/u. Patient has #104 [place] and #10 methad one remaining - on track. Patient reports 50% pain relief with meds. Patient is stable on these medications. 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 Continues her daily PT exercises. She does injections at [facility]. I s going to [place] in November. No other concerns to day. [...] She has # 8 methadone and #94.5 [place] remaining - on track/surplus. The patient reports [...] in [place]. She will be going to [place] in November. The charlene ent states gabapentin [...] low back pain. She has # 71 [place] and #8 methadone remaining - on track [...] low back pain. She has # 88.5 [place] and #19 methadone remaining - on track/surplus. [...] low back pain. She has # 90 [place] and #19 methadone remaining - on track/surplus. [...] low back pain. She has # 63 [place] and #12 methadone remaining - on track/surplus. [...] She has # 18 methadone and #45 [place] remaining - on track. She continues PT for her shoulder and has noticed some benefit. She had a l umbar BOBO at [facility] which has provided minimal relief to this point. The patient states t he current medication regimen continues to be effective for reducing pain. She C O trouble sleeping even when she uses Trazod one. She continues PT regularly. She will be going on a trip [place] [facility] [place]. No other concerns today . [...] medication refill. She presents with #8 7.5 [place] and #20 methadone. She notif ied us [...] low back pain. She has # 63 [place] and #7 methadone remaining - on track [...] low back pain. She has # 47 [place] and #8 methadone remaining - on track [...] low back pain. She has # 31 [place], #22 methadone and #19 Trazodone re maining - on track. She will be going on vac ation this week to [place]. She has not noticed any relief from her BOBO yet. She just transi tioned to an E-cig. She continues home exerc ise. She has experiended good relief from her shoulder injection at [facility] so she has not f ollowed [...] She an d her are going to [place] in [facility] er and she will need to [...] flare since she had her epidural at [facility] last Thursday. States this has not [...] exercise program Reviewed medications Continue current medication Follow exercise program Continue current medication Reviewed medications Reviewed medications Medications counted, patient is on [...] Review of 2020 records from [facility] review her history of rheumatoid arthritis. assessment Pain in left shoulder impression Ongoing L shoulder pain; following up [facility] Dr. Weaver who performs her shoulder [...] has a history of cervical surgery. assessment longterm (current) use of opiate analge sic impression [...]
== END 2022-02-18 14:31 | disposition home or self-care (01) ==
PROVIDERS: PCP Family Medicine; Visit Provider Nurse Practitioner Family
DX: I73.9 Peripheral vascular disease, unspecified (principal); L97.522 Non-pressure chronic ulcer of other part of left foot with fat layer exposed; M14.60 Charcot's joint, unspecified site; M21.5 Acquired clawhand, clubhand, clawfoot and clubfoot
CPT/HCPCS: 97597

== ENCOUNTER 2022-05-05 08:23 | Day surgery (SDC) | payer MEDICARE, SELFPAY ==
--- NOTE | 2022-05-05 08:45 | SUR.PREOP ---
Patient provided home covid negative results to RN.
[2022-05-05 09:03] VITALS: BMI 26.9
[2022-05-05 09:08] VITALS: BP 138/77; PULSE 70; RESP 18; TEMP 36.8; O2SAT 96
[2022-05-05] MEDS: SODIUM CHLORIDE 0.9 % (FLUSH) 10 ML SYRINGE IVF (09:30)
[2022-05-05] MEDS: LACTATED RINGERS 1000 ML 1,000 ML 100 ML IV (09:30)
[2022-05-05] MEDS: BUPIVACAINE 0.5% 30 ML 20 ML INJECTION (09:53)
--- NOTE | 2022-05-05 10:11 | P.ANES_ITS ---
Anesthesia Charges Start Date/Time Anesthesia Start Date: 05/05/22 Anesthesia Start Time: 09:45 Stop Date/Time Anesthesia Stop Date: 05/05/22 Anesthesia Stop Time: 10:33 Summary Extremes of Age - Over 70 or under 1: JOB FORWARDER
--- NOTE | 2022-05-05 10:13 | SUR.OPER ---
TIME OUT PERFORMED PRIOR TO INJECTION OF THE LOCAL IN THE LEFT FOOT AT 09:48.? ?PATIENT QUESTIONS ANSWERED SATISFACTORILY PREOPERATIVELY.? PATIENT BROUGHT TO OR #1 PER CART.? Patient positioned supine on OR #1 bed.? The perioperative?team supported arms bilaterally on arm boards.? Final approval of positioning by surgeon.?
--- NOTE | 2022-05-05 10:25 | SUR.OPER ---
SURGEON DECLINES OFFER TO SEND EXCISED TISSUE TO PATHOLOGY
[2022-05-05 10:30] VITALS: BP 119/65; PULSE 69; RESP 18; TEMP 36.2; O2SAT 95
--- NOTE | 2022-05-05 10:33 | PM.GSPRC ---
Operative Note Date of procedure: 05/05/22 Pre-op diagnosis: Nonhealing ulcer left 4th toe Post-op diagnosis: Nonhealing ulcer left foot Type of Procedure: Amputation 4th toe by MPJ disarticulation left foot Indications: Nonhealing ulceration with recurring infection. She requires amputation to allow for healing of both the remaining 3rd toe and the 4th toe that clearly will not heal. I reviewed procedure, recovery, expectations with the patient. These include but are not limited to: Poor wound healing infection continued pain continued nonhealing potentially for future surgery deep venous thrombosis pulmonary embolism and . She understands risks and written consent obtained. Procedure Description: After discussing the risks and benefits of the procedure, the patient signed informed consent.? The operative site was marked and the patient was brought to the operating room and placed on the operating table in supine position.? Care was taken to pad the patient's pressure points.?? The patient was then given sedatio by anesthesia.?? The operative site was then prepped and draped in the usual sterile fashion.? A time-out was then performed. Left foot was exsanguinated and the ankle tourniquet inflated to 250 mm Hg Incision started on the dorsal aspect of the 2nd MPJ which then diverged as it was extended distally going both medial and lateral and converging plantarly. Incisions were taken directly to bone. Second toe was disarticulated at the metatarsophalangeal joint and removed in total. Wound was thoroughly irrigated normal sterile saline. Tourniquet was released and all bleeding vessels cauterized. Mediolateral flaps were then reapproximated with 3-0 nylon. Sterile dressing was then applied. ? The patient was then woken and transported to the recovery area in stable condition. The patient tolerated the procedure well. She is weight-bearing as tolerated. Both written and verbal postop instructions given. She will continue with her current Davy prescription from the pain clinic. I do expect show any additional pain medication. Findings: Complications: None apparent Anesthesia: MAC and local Surgeon: Daron Raza DPM Additional Specimen Information: Unnecessary to send 2nd toe for pathologic review. Condition: stable Disposition: same day
[2022-05-05 10:45] VITALS: BP 135/84; PULSE 71; RESP 18; O2SAT 96
--- NOTE | 2022-05-05 10:53 | W.ANESCHARGE ---
Anesthesia Charges Start Date/Time Anesthesia Start Date: 05/05/22 Anesthesia Start Time: 09:45 Stop Date/Time Anesthesia Stop Date: 05/05/22 Anesthesia Stop Time: 10:33 Summary Extremes of Age - Over 70 or under 1: MDA
[2022-05-05 11:00] VITALS: BP 115/98; PULSE 79; RESP 18; O2SAT 100
[2022-05-05 11:15] VITALS: BP 110/56; PULSE 85; RESP 18; O2SAT 98
[2022-05-05] MEDS: HYDROCODONE-ACETAMIN 5-325 MG 1 TAB PO (11:19)
--- NOTE | 2022-05-05 12:13 | SUR.PHASEII ---
Vitals stable, patient appears comfortable in bed, verbalized I am needing to use the bathroom. [employer]or verbalized this would be a good time to get dressed before going to BR, pt verbalized, I feel like i'm being rushed. Patient reported pain 8/10 to foot at this time, however appears comfortable and 1 on FLACC scale per assessment. [place] given. Photo Mask Processor assisted patient to get up and dressed, patient tolerated this very well and verbalized, the pain seems to be getting better.
== END 2022-05-05 12:05 | disposition home or self-care (01) ==
PROVIDERS: PCP Family Medicine; Visit Provider Podiatrist
PROC: (CPT 28820; principal; 2022-05-05 10:00)
DX: L97.522 Non-pressure chronic ulcer of other part of left foot with fat layer exposed (principal)
CPT/HCPCS: 28820; 01480; 99100; A9270; J2704; J3010; J3490; J7120